=== PATIENT | female | born 1940 | race Caucasian/White ===

== ENCOUNTER 2016-03-16 08:19 | Emergency (ER) | payer MEDICARE, MEDICAID ==
[~2016-03-16] VITALS: Ht 152.4 cm; Wt 65.3 kg
[~2016-03-16 08:19] MED LIST: ALBU17AE3; ALPR-557 PO; ALPR.5T; ALPR.5T PO; ALPR0.2550 PO; AMOX500C2 PO; ASP325T; ASP81CT PO; ASP81TEC PO; BUDE10.2 INH; BUDE6HFA IH; CEFD250S3 PO; CEFD300C3 PO; CFR250T PO; CIPR500T78 PO; CLOP75TA28 PO; CLOT15CR6 TOP; CLPD75T; CLPD75T PO; CYCL1DRO OU; DCS100C PO; DIAZ2TAB2; DICY10CA12 PO; DICY10CA59 PO; DILT120C54 PO; DILT120T11 PO; DOCU-161 PO; DULO30CA; DULO60CA58 PO; DULO60CA6; DZPM2T; DZPM2T PO; EZET10TA5; EZET10TA5 PO; FAMO-119 PO; FEN12TD TD; FENT1PAT6 TP; FLT05NA16 NSEACH; FLUC100T PO; FLUC100T6 PC; FLUT16SP22 NSEACH; GABA-486 PO; GABA-488 PO; GABA600T2 PO; GBPN300C PO; HYDR-1231 PO; HYDR-34; HYDR-3714; HYDR-3714 PO; HYDR-3812 PO; HYDR-3816 PO; HYDR-757 PO; HYDR118S10 PO; HYDR1CAP2 PO; HYDR25CA5; HYDR28.32 EXT; HYDR2TAB30 PO; HYDR2TAB6 PO; HYOS0.1283 SL; LACT10SO63 PO; LEVO100T7 PO; LORA10TA2; LORA1TAB; LORA1TAB PO; LRT10T; LRZ1T; LVT.112T; LVT.112T PO; LVT.1T; LVT.1T PO; MECL-124 PO; MECL25TA56 PO; MELO-198 PO; METH4TAB PO; METO-272 PO; METO-354 PO; METO10TA3 PO; METR500T PO; MIRAPEX; MRTZ15T; Metoclopramide Hcl PO; NAPR-243 PO; NAPR-689 PO; NAPR250T34; NF-ADXR10C PO; NF-ESOM40C; NF-ROPIN4T PO; NITR-65 PO; NITR0.3T6 SL; NITR0.4T SL; NITR100C PO; NITR100C10 PO; NPR250TRX; ONDA8TAB13 PO; OXYB10TA8 PO; OXYC-12 PO; OXYC-190 PO; OXYC-197 PO; OXYC-465 PO; OXYC5TAB; OXYCODONE; PANT40TA PO; PANT40TA3 PO; PNT40TEC PO; PRAM0.252; PRAM0.75 PO; QUET50TA; QUET50TA PO; ROPI1TAB; ROPI2TAB3; ROPI3TAB PO; ROPI4TAB3 PO; RPN.25T; RT-COMBINH; SANCTURA; SCOP1PAT TD; SCR1T1 PO; SULF-222 PO; SULF1TAB38 PO; SULF1TAB7 PO; TEMA30CA PO; TMZP15C PO; TRAM-21 PO; TRAM-42 PO; TRAM50TA2 PO; TRIM100T PO; TRIM100T7 PO; TRM50T PO; ZLP10T; ZOLP5TAB6 PO; ZOLPIDEM 10 MG; [UNRECOGNIZED DRUG - CODE] PO; [UNRECOGNIZED DRUG - OTHER]; [UNRECOGNIZED DRUG - OTHER] PO
--- OUTSIDE RECORDS SUMMARY | 2016-03-16 08:26 | XMS REPORT | Continuity of Care Document ---
Author Author [facility] Organization [facility] Address Unknown Phone Unavailable Care Team Providers Care First Aid Officer Name Role Phone Roro Brewer III PCP [phone] Source Comments Some departments are not documenting in the electronic medical record. If you do not see the information that you expected, contact Release of Information in the Health Information Management department at [phone] for further assistance in locating additional records.[facility] Active Allergies and Adverse Reactions Allergen Noted Date Severity Reactions Comments Levofloxacin 04/27/2005 Medium Allergy recorded in SMS: LEVOFLOXACIN~Reactions: ARM SWELLING Current Medications Prescription Sig. Disp. Refills Start End Date Status Date clopidogrel (PLAVIX) 75 Take 75 mg by mouth Active mg Tab Daily. ezetimibe (ZETIA) 10 mg Take 10 mg by mouth Active tablet Daily. metoclopramide (REGLAN) Take 10 mg by mouth daily Active 10 mg tablet as needed. Aspirin 81 mg Tab Take 1 Tab by mouth 1 Tab 0 06/06/19 Active Daily. 10 nitroglycerin (NITROSTAT) Place 1 Tab under tongue 15 Tab 2 06/06/19 Active 0.4 mg tablet As Needed for Chest Pain. 10 give x 3 doses and then call physician pantoprazole DR,+, Take 1 Tab by mouth 30 Tab 3 06/06/19 Active (PROTONIX) 40 mg tablet Daily. Please take 10 Protonix while on Plavix metoprolol XL (TOPROL XL) Take 50 mg by mouth Active 50 mg tablet daily. LORazepam (ATIVAN) 1 mg Take 1 mg by mouth at Active tablet bedtime daily. dicyclomine (BENTYL) 10 Take 10 mg by mouth daily Active mg capsule as needed. temazepam (RESTORIL) 30 Take 30 mg by mouth at Active mg capsule bedtime as needed. duloxetine (CYMBALTA) Take 60 mg by mouth Active 60 mg capsule daily. levothyroxine (SYNTHROID) Take 100 mcg by mouth Active 100 mcg tablet daily. rOPINIRole (REQUIP) 4 mg Take 8 mg by mouth at Active tablet bedtime daily. gabapentin (NEURONTIN) Take 900 mg by mouth Active 300 mg capsule twice daily. lactulose 10 gram/15 mL Take 20 g by mouth daily Active oral solution as needed. cycloSPORINE (RESTASIS) Place 1 Drop into or Active 0.05 % ophthalmic around eye(s) daily as emulsion needed. fluticasone (FLONASE) 50 Apply 1 [place] to each Active mcg/actuation nasal spray nostril as directed daily as needed. Shake bottle gently before using. albuterol (PROAIR HFA) 90 Inhale 2 Puffs by mouth Active mcg/actuation inhaler into the lungs daily as needed for Wheezing or Shortness of Breath. Shake well before use. Active Problems Problem Noted Date Colostomy in place (HCC) 07/31/2014 Parastomal hernia 07/31/2014 Chest pain 06/03/2009 HLD (hyperlipidemia) 06/03/2009 PE (pulmonary embolism) 06/03/2009 Urinary incontinence 06/03/2009 Restless leg syndrome 06/03/2009 CAD (coronary artery disease) 06/03/2009 Overview: Hx of GA 4 yrs ago Depression 06/03/2009 Arthritis 06/03/2009 Back pain 06/03/2009 Hypothyroidism 06/03/2009 Bursitis of knee 06/03/2009 Overview: R RAJI (obstructive sleep apnea) Overview: noncompliant with CPAP Social History Tobacco Use Types Packs/Day Years Used Date Former Smoker 0.1 10 Quit: 10/13/2003 Smokeless Tobacco: Never Used Alcohol Use Drinks/Week oz/Week Comments No 0 Standard 0.0 drinks or equivalent Last Filed Vital Signs Vital Sign Reading Time Taken Blood Pressure 141/81 10/13/2015 9:37 AM CDT Pulse 64 10/13/2015 9:37 AM CDT Temperature 36.1 C (96.9 F) 10/13/2015 9:37 AM CDT Respiratory Rate 14 09/08/2015 2:37 PM CDT Height 1.524 m (5') 10/13/2015 9:37 AM CDT Weight 62.8 kg (138 lb 7.2 oz) 10/13/2015 9:37 AM CDT Body Mass Index 27.04 10/13/2015 9:37 AM CDT Oxygen Saturation 94% 10/13/2015 9:37 AM CDT Plan of Care Health Maintenance Due Date Last Done Comments Physical (Comprehensive) 1945 Exam Pertussis Vaccine 1949 Tetanus Vaccine 04/27/1955 Shingles Vaccine 1998 Osteoporosis Screening 04/27/2003 Prevnar/Pneumovax (#1) 04/27/2003 Influenza Vaccine 10/22/2015 Results from Last 3 Months Not on file
[2016-03-16] MEDS ORDERED: OMEP40CA36 PO (08:48)
[2016-03-16] MEDS ORDERED: CIPR500T4 (08:48)
[2016-03-16] MEDS ORDERED: SUCR1ORA5 PO (08:48)
[2016-03-16] MEDS ORDERED: OXYCODONE-ACETAMINOPHEN (08:48)
[2016-03-16] MEDS ORDERED: PANT40TA3 PO (08:48)
[2016-03-16] MEDS ORDERED: KETOROLAC 60 MG/2 ML VIAL IM ONE (09:00)
[2016-03-16] MEDS ORDERED: ORPHENADRINE 60 MG/2 ML (NORFLEX) AMP IM ONE (09:00)
[2016-03-16] MEDS ORDERED: diphenhydrAMINE 50 MG/ML INJ (BENADRYL) IM ONE (09:00)
--- NOTE | 2016-03-16 09:01 | ED Back Pain ---
General Chief Complaint: Back Problems Stated Complaint: BACK/LEG PAIN Nursing Triage Note: PT STATES CHRONIC BACK PAIN, HAS GOTTEN WORSE PAST 5 DAYS, STATES DR MUÑIZ CANNOT GET HER IN UNTIL MONDAY. 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 MUÑIZ UNTIL Monday03/21/16 PT DENIES INJURY SUNITA STATES THAT "SHE WAS DOING REALLY GOOD ON MONDAY AND WE WALKED ALOT, AND THEN WHEN WE GOT DONE SHE WAS HURTING AND SINCE THEN SHE HASN'T BEEN ABLE TO GET OUT OF BED" DUE TO PAIN PT HAS NOT TAKEN ANYTHING FOR PAIN TODAY, AND ONLY TOOK 1 DOSE OF PAIN MEDICATION YESTERDAY AT 1600 WHEN THERAPIST WAS AT HER HOUSE. RX FOR OXYCODONE FILLED 03/10/16 NO PARESTHESIAS OR MOTOR DEFICITS THIS IS SAME HER CHRONIC BACK PAIN, JUST WORSE THAN NORMAL SINCE MONDAY NO URINARY SYMPTOMS PT RECENTLY MOVED BACK HOME HAD BEEN IN PRISON IN [place] FOLLOWING [facility] [place] ( HAD COLOSTOMY BY DR. GUZMAN IN [place]), THEN WAS AT [facility] [place], THEN NOW IS BACK HOME, WITH HOME HEALTH AND CAREGIVERS, BUT NOT 24 HOUR CARE. IS TO HAVE COLOSTOMY TAKE DOWN BY DR. GUZMAN 03/29/16 Other Comments PCP: DR. FOFANA Allergies and Home Medications Allergies Coded Allergies: No Known Drug Allergies (Unverified , 06/10/15) Home Medications #60 (Reported) Aspirin 81 Mg Tabec 81 MG PO DAILY (Reported) Budesonide/Formoterol Fumarate 10.2 Gm Hfa.aer.ad 2 PUFF INH BID PRN PRN SHORTNESS OF BREATH (Reported) Ciprofloxacin HCl 500 Mg Tablet #14 (Reported) Clopidogrel Bisulfate 75 Mg Tablet 75 MG PO DAILY (Reported) Cyclosporine 1 Each [place] 1 DROP OU BID (Reported) Duloxetine HCl 60 Mg Capsule.dr 60 MG PO DAILY (Reported) Ezetimibe 10 Mg Tablet 10 MG PO DAILY (Reported) Fluconazole 100 Mg Tablet 100 MG PC DAILY (Reported) Gabapentin 300 Mg Capsule 300 MG PO BID (Reported) Lactulose 10 Gm/15 Ml Solution 30 ML PO HS PRN PRN CONSTIPATION (Reported) Levothyroxine Sodium 100 Mcg Tablet 100 MCG PO DAILY (Reported) Lorazepam 1 Mg Tablet #15 1 MG PO Q12H PRN PRN ANXIETY Prescribed by: YSABEL ABREU on 07/31/15928 Metoprolol Succinate 50 Mg Tab.er.24h 50 MG PO DAILY (Reported) Nitroglycerin 0.4 Mg Tab.subl 0.4 MG PO UD PRN PRN CHEST PAIN (Reported) Omeprazole 40 Mg Capsule.dr #60 (Reported) Pantoprazole Sodium 40 Mg Tablet.dr #30 (Reported) Ropinirole HCl 4 Mg Tablet 8 MG PO HS (Reported) Sucralfate 1 Gm/10 Ml Oral.susp #600 (Reported) Temazepam 30 Mg Capsule #15 30 MG PO HS Prescribed by: YSABEL ABREU on 07/31/15928 Constitutional: no symptoms reported Respiratory: no symptoms reported Cardiovascular: no symptoms reported Gastrointestinal: see HPI Genitourinary: no symptoms reported (BUT WAS RECENTLY TREATED FOR UTI) Musculoskeletal: see HPI Skin: no symptoms reported Psychiatric/Neurological: Denies Numbness, Denies Paresthesia, Denies Weakness Past Wztpsuj-Tgkwjj-Ailxsa Hx Patient Social History Alcohol Use: Denies Use Recreational Drug Use: No Smoking Status: Former Smoker Former Smoker/When Quit: Sep 27, 1997 Recent Foreign Travel: No Contact w/Someone Who Travel: No Recent Infectious Disease Expo: No Recent Hopitalizations: No Physical Abuse Screen: No Sexual Abuse: No Immunizations Up To Date Tetanus Booster (TDap): Unknown Date of Pneumonia Vaccine: Apr 22, 2012 Date of Influenza Vaccine: Dec 21, 2014 Seasonal Allergies Seasonal Allergies: No Surgeries HX Surgeries: Yes (COLOSTOMY, KYPHOPLASTY; CARDIAC CATH WITH STENTS X 2; EGD/ COLONOSCOPIES ) Surgeries: Abdominal, Appendectomy, Bowel Surgery, Cardiac, Coronary Stent, Hysterectomy, Orthopedic, Tonsillectomy Respiratory Hx Respiratory Disorders: Yes Respiratory Disorders: Sleep Apnea, COPD Cardiovascular Hx Cardiac Disorders: Yes (STENTS X2) Cardiac Disorders: Coronary Artery Disease, Deep Vein Thrombosis, Hypertension Neurological Hx Neurological Disorders: Yes Neurological Disorders: Vertigo 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 System Hx 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 Disorders: No ARTIST SUSPECT History: Hysterectomy Genitourinary Hx Genitourinary Disorders: Yes (INCONTINENCE) Genitourinary Disorders: UTI-Chronic Gastrointestinal Hx Gastrointestinal Disorders: Yes (COLOSTOMY; PARASTOMAL HERNIA) Gastrointestinal Disorders: Abdominal Hernia, Gastroesophageal Reflux, Diverticulosis, Esophagitis Musculoskeletal Hx Musculoskeletal Disorders: Yes (compression fracture status post kyphoplasty ) Musculoskeletal Disorders: Osteoporosis, Arthritis, Chronic Back Pain, Fractures Endocrine Hx Endocrine Disorders: Yes Endocrine Disorders: Hypothyroidsim HEENT HX ENT Disorders: Yes (FULL SET OF DENTURES) HEENT Disorders: Cataract Loss of Vision: Denies Hearing Impairment: Denies Cancer Hx Cancer: No Psychosocial Hx Psychiatric Problems: Yes Behavioral Health Disorders: Anxiety, Depression Integumentary HX Skin/Integumentary Disorder: No Blood Transfusions Hx Blood Disorders: Yes (DVT) Family Medical History Significant Family History: No Pertinent Family Hx Family Medial History: Family history: Hypertension G8 BROTHER Myocardial infarction 19 MOTHER G8 BROTHER Physical Exam Vital Signs Vital Sign - Last 12Hours 03/16/16 08:30 Temp 97.2 Pulse 62 Resp 20 B/P 152/82 Pulse Ox 94 Capillary Refill : Less Than 3 Seconds General Appearance: No Apparent Distress WD/WN Other (SMILING, TALKATIVE BUT SPEECH SLIGHTLY THICK TONGUED) Neck: Full Range of Motion Normal Inspection Non Tender Supple Cardiovascular: Regular Rate, Rhythm Normal Peripheral Pulses Respiratory: Normal Breath Sounds No Accessory Muscle Use No Respiratory Distress Gastrointestinal: Normal Bowel Sounds No Organomegaly No Pulsatile Mass Non Tender Soft Back: Other (BACK NON-TENDER, BUT C/O MUCH PAIN WITH ANY MOVEMENT. ) Extremity: Normal Inspection Normal Range of Motion Non Tender No Calf Tenderness No Pedal Edema Neurologic/Psychiatric: Alert Oriented x3 No Motor/Sensory Deficits Normal Mood/Affect recovery manager II-XII Norm as Tested Other (DTR'S INTACT) Skin: Normal Color Warm/DryNo Rash Progress/Results/Core Measures Results/Orders My Orders Orders-BETTY MAZARIEGOS DO Ct Lumbar Spine Wo (03/16/16 08:51) Ketorolac Injection (Toradol Injection) (03/16/16 09:00) Orphenadrine Injection (Norflex Injectio (03/16/16 09:00) Diphenhydramine Injection (Benadryl Inje (03/16/16 09:00) Medications Given in ED Current Medications Medications Dose Ordered Sig/Perez Route Start Time Stop Time Status Last Admin Dose Admin Diphenhydramine HCl 25 mg ONCE ONCE IM 03/16/16 09:00 03/16/16 09:01 DC 03/16/16 09:03 25 MG Ketorolac Tromethamine 60 mg ONCE ONCE IM 03/16/16 09:00 03/16/16 09:01 DC 03/16/16 09:07 60 MG Orphenadrine Citrate 60 mg ONCE ONCE IM 03/16/16 09:00 03/16/16 09:01 DC 03/16/16 09:04 60 MG Vital Signs/I&O Vital Sign - Last 12Hours 03/16/16 03/16/16 08:30 09:56 Temp 97.2 97.2 Pulse 62 62 Resp 20 20 B/P 152/82 Pulse Ox 94 94 Blood Pressure Mean: 105 Progress Note : Progress Note PAIN EASED AT DISMISSAL Diagnostic Imaging Comments CT LUMBAR SPINE--MULTIPLE OLD COMPRESSION FRACTURES AND KYPHOPLASTIES, NO ACUTE PROCESS PER RADIOLOGIST REPORT Reviewed: Reviewed by Me Departure Impression Impression: Primary Impression: Acute exacerbation of chronic low back pain Disposition: 01 HOME, SELF-CARE Condition: Stable Departure-Patient Inst. Referrals: TORIBIO FOFANA DO (PCP/Family) Primary Care Physician Patient Instructions: MANAGING YOUR CHRONIC PAIN, Low Back Pain (DC) Add. Discharge Instructions: TAKE YOUR MEDICATIONS PRESCRIBED FOLLOW UP WITH DR. MUÑIZ AND DR. FOFANA FOR FURTHER CARE All discharge instructions reviewed with patient and/or family. Voiced understanding. BETTY MAZARIEGOS DO Mar 16, 2016 09:01
--- NOTE | 2016-03-16 09:34 | Diagnostic Imaging Report ---
PROCEDURE: CT lumbar spine without contrast. TECHNIQUE: Multiple contiguous axial images were obtained through the lumbar spine without the use of intravenous contrast. Sagittal and coronal reformations were then performed. INDICATION: Low back pain EXAMINATION: CT lumbar spine without contrast There is a grade 1 spondylolisthesis at L3-4. There are postop changes from kyphoplasties of T10, T12 and L5. There are old compression fractures of T11, L1 and L4. There are no acute fracture seen. There are degenerative changes of the facets. There scoliosis of the lumbar spine convex to the right. There is vacuum disc phenomena at T12-L1, L2-3 and L4-5. IMPRESSION: Scoliosis with degenerative changes and old compression fractures. There are no findings to indicate an acute compression fracture. MRI would be more sensitive in that regard. Dictated by: Dictated on workstation # [id number]
[2016-03-16 09:56] VITALS: BP 152/82
[2016-04-06] MEDS ORDERED: ROPI1TAB2 PO (10:17)
== END 2016-03-16 10:01 | disposition home or self-care (01) ==
LOC: EDBD → EDUNIT# 08:19 → ER 08:22
DX: M47.26 Other spondylosis with radiculopathy, lumbar region (principal); M41.26 Other idiopathic scoliosis, lumbar region; G89.29 Other chronic pain; I10 Essential (primary) hypertension; I25.10 Atherosclerotic heart disease of native coronary artery without angina pectoris; J44.9 Chronic obstructive pulmonary disease, unspecified; Z79.02 Long term (current) use of antithrombotics/antiplatelets; Z79.899 Other long term (current) drug therapy; Z79.82 Long term (current) use of aspirin; Z95.5 Presence of coronary angioplasty implant and graft; Z93.3 Colostomy status
CPT/HCPCS: 72131; 96372

== ENCOUNTER 2016-03-25 09:02 | Outpatient (CLI) | payer MEDICARE, MEDICAID ==
[~2016-03-25] VITALS: Ht 152.4 cm; Wt 65.3 kg
[~2016-03-25 09:02] MED LIST changes: +CIPR500T4; +OMEP40CA36 PO; +OXYCODONE-ACETAMINOPHEN; +SUCR1ORA5 PO
[2016-03-25] MEDS ORDERED: TRIAMCINOLONE ACET (KENALOG-40) 40 MG/ML 1 ML VIAL ONE (09:23)
[2016-03-25] MEDS ORDERED: BUPIVACAINE 0.25% 30 ML (SENSORCAINE) VIAL ONE (09:23)
[2016-03-25 09:30] VITALS: BP 174/103
[2016-03-25 10:14] VITALS: BP 145/103
--- NOTE | 2016-03-25 12:04 | Pain Medicine-Procedure ---
Procedure Pre-Op/Post-Op Diagnosis Diagnosis: disc disorder with radiculopathy, lumbar Indications for Operation Low back pain Attending Surgeon Reynaldo Procedure Date of Service: Mar 25, 2016 Procedure: Lumbar Epidural Steroid Injection at the L5-S1 level under Fluoroscopic Guidance Procedure: Patient was identified in the holding area. After risks, benefits, and alternatives were discussed with the patient, informed consent was obtained. Patient was brought to the fluoroscopy suite and placed prone on the procedure room table. A time out was performed. Vital signs were monitored throughout the procedure. The patients low back was prepped and draped in the usual sterile fashion. The patients skin was anesthetized using 2% Lidocaine. A Tuohy needle was inserted and advanced to the L5-S1 epidural space under fluoroscopic guidance using the loss of resistance technique and intermittent projection of fluoroscopy. There was no paresthesia with needle placement. The needle position was confirmed in both the AP and lateral view. After negative aspiration 2ml of contrast was injected under live fluoroscopy which showed good spread of the contrast in the epidural space at the appropriate level, there was no intravascular or subarachnoid spread. Again, after negative aspiration for heme or CSF, 2 ml of 0.25% Bupivicaine, 2ml of preservative free normal saline, and 80mg of Kenalog was injected. The needle was removed and a sterile bandage was placed and the patient was transferred to the recovery area in stable condition. After a brief period of observation, patient was discharged to home with no new neurological deficits and no apparent complications. Complications None MORAIMA MUÑIZ MD Mar 25, 2016 12:03 pm
[2016-03-25] MEDS ORDERED: CEFU250T80 PO (16:06)
[2016-04-06] MEDS ORDERED: ROPI1TAB2 PO (10:17)
== END 2016-03-25 10:16 | disposition home or self-care (01) ==
LOC: EDBD → CARD 09:02
PROVIDERS: ATTEND Pain Medicine Pain Medicine
DX: M51.16 Intervertebral disc disorders with radiculopathy, lumbar region (principal); M53.3 Sacrococcygeal disorders, not elsewhere classified; Z79.899 Other long term (current) drug therapy
CPT/HCPCS: 62323

== ENCOUNTER 2016-03-25 13:59 | Emergency (ER) | payer MEDICARE, MEDICAID ==
[~2016-03-25] VITALS: Ht 157.5 cm; Wt 68.0 kg
--- OUTSIDE RECORDS SUMMARY | 2016-03-25 14:08 | XMS REPORT | Continuity of Care Document ---
Author Author [facility] Organization [facility] Address Unknown Phone Unavailable Care Team Providers Care Tax Economist Name Role Phone TORIBIO FOFANA DO PCP Insurance Providers Payer Name Policy Number Subscriber Name Relationship [employer] [id number] [place] [address] Self / Same As Patient [facility] [id number] [place] [address] Self / Same As Patient Advance Directives Directive Response Recorded Date/Time Advance Directives No 07/28/15 3:06pm Health Care Power of Planning Feeder No 07/28/15 3:06pm Organ Donor No 07/28/15 3:06pm Resuscitation Status Full Code 07/28/15 3:06pm Chief Complaint and Reason for Visit Chief Complaint Neurological Problems Reason for Visit [id number] Problems Active Problems Medical Problem Onset Date Status Abdominal pain Unknown Acute Abnormal thyroid function test Unknown Acute Acute exacerbation of chronic low back pain Unknown Acute Acute exacerbation of chronic low back pain Unknown Acute Altered mental status Unknown Acute Atelectasis Unknown Acute Atypical chest pain Unknown Acute Atypical chest pain Unknown Acute Benzodiazepine overdose Unknown Acute Chest pain Unknown Resolved Chest pain Unknown Acute Chest wall pain Unknown Acute Closed T11 fracture Unknown Acute Closed compression fracture of thoracic vertebra Unknown Acute Compression fracture Unknown Acute Compression fracture of L1 lumbar vertebra Unknown Acute Compression fracture of L4 lumbar vertebra Unknown Acute Diverticulitis of intestine Unknown Acute Dysphagia Unknown Acute Frequent falls Unknown Acute Generalized weakness Unknown Acute Hyponatremia Unknown Acute Intractable low back pain Unknown Acute Leukocytosis Unknown Acute Lumbar transverse process fracture Unknown Acute 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 Acute Sinusitis Unknown Acute Syncope Unknown Acute Transient cerebral ischemia Unknown Acute UTI (urinary tract infection) Unknown Acute UTI (urinary tract infection) Unknown Acute Urinary tract infection Unknown Acute Urinary tract infection Unknown Acute Urinary tract infectious disease Unknown Acute Volume depletion Unknown Acute acute and chronic hyponatremia Unknown Acute Medications Current Home Medications Medication Dose Units Route Directions Days/Qty Instructions Start Date Aspirin 81 Mg 81 Mg Oral Daily 09/10/12 Ezetimibe 10 Mg 10 Mg Oral Daily 12/05/14 Duloxetine Hcl 60 Mg 60 Mg Oral Bedtime 12/05/14 Ropinirole Hcl 4 Mg 8 Mg Oral Bedtime TAKES 2 (4 MG) TABLETS / LAST FILLED 05/17/15 #60 12/05/14 Lactulose 10 Gm/15 Ml 30 Ml Oral Bedtime as needed for Constipation 12/05/14 Metoprolol Succinate 50 Mg 50 Mg Oral Daily LAST FILLED 05/15/15 #30 12/05/14 Levothyroxine Sodium 100 Mcg 100 Mcg Oral Daily 12/05/14 Nitroglycerin 0.4 Mg 0.4 Mg Oral As Directed as needed for Chest Pain 12/05/14 Clopidogrel Bisulfate 75 Mg 75 Mg Oral Daily 12/05/14 Budesonide/Formoterol Fumarate 10.2 Gm 2 Puff Inhalation Twice A Day as needed for Shortness Of Breath LAST FILLED 03/10/15 #1 INHALER 12/17/14 Cyclosporine 1 Each 1 Drop Each Eye Twice A Day 12/17/14 Gabapentin 300 Mg 900 Mg Oral Twice A Day TAKES 3 (300 MG) CAPSULES Fentanyl 1 Each 12 Mcg Topical Every 72 Hours APPLY TO HAIR FREE AREA ABOVE WAIST 06/23/15 Fluconazole 100 Mg 100 Mg Percutaneous Daily 06/23/15 Hyoscyamine Sulfate 0.125 Mg 0.125 Mg Sublingual Before Meals as needed for Spasms 06/23/15 Temazepam 30 Mg 30 Mg Oral Bedtime 06/23/15 Oxycodone Hcl/Acetaminophen 1 Each 1 Tab Oral Every 4-6 Hours as needed for Pain 06/23/15 Lorazepam 1 Mg 1 Mg Oral Every 12 Hours as needed for Anxiety Ondansetron 8 Mg 8 Mg Oral Every 6 Hours as needed for Nausea/Vomiting 06/23/15 Nitrofurantoin Monohyd/M-Cryst 100 Mg 1 Tab Oral Twice A Day 20 Nitrofurantoin Macrocrystal 100 Mg 100 Mg Oral Twice A Day 13 07/28/15 Past Home Medications Medication Directions Ordered Status Duloxetine Hcl 30 Mg Capsule.dr, 07/10/06 Discontinued Ezetimibe 10 Mg Tablet, 07/10/06 Discontinued Clopidogrel Bisulfate 75 Mg Tablet, 07/10/06 Discontinued Loratadine 10 Mg Box, 07/10/06 Discontinued Naproxen 250 Mg Tab, 07/10/06 Discontinued [Sanctura] , 07/10/06 Discontinued Esomeprazole Magnesium 40 Mg Capsule.dr, 07/10/06 Discontinued Ropinirole Hcl 0.25 Mg Tab, 07/10/06 Discontinued Diazepam 2 Mg Tablet, 07/10/06 Discontinued [Sanctura] 20 Mg , 07/10/06 Discontinued Zolpidem Tartrate 10 Mg Tablet, 07/10/06 Discontinued Levothyroxine Sodium (Levothroid) 112 Mcg Tablet, 02/05/07 Discontinued Hydroxyzine Pamoate 25 Mg Capsule, 02/05/07 Discontinued Lorazepam 1 Mg Tablet, 02/05/07 Discontinued Alprazolam 0.5 Mg Tablet, 02/05/07 Discontinued [Mirapex] , 05/06/07 Discontinued Mirtazapine 15 Mg Tab, 05/06/07 Discontinued [Oxycodone] , 05/06/07 Discontinued Duloxetine Hcl 30 Mg Capsule.dr, 10/28/07 Discontinued Naproxen 250 Mg Tablet, 10/28/07 Discontinued Ezetimibe 10 Mg Tablet, 10 Mg Oral Daily 10/28/07 Discontinued Clopidogrel Bisulfate 75 Mg Tablet, 75 Mg Oral Daily 10/28/07 Discontinued Levothyroxine Sodium 100 Mcg Tablet, 10/28/07 Discontinued Esomeprazole Magnesium 40 Mg Capsule.dr, 10/28/07 Discontinued Ropinirole Hcl 0.25 Mg Tab, 10/28/07 Discontinued Diazepam 2 Mg Tablet, 10/28/07 Discontinued Zolpidem Tartrate 10 Mg Tablet, 10/28/07 Discontinued Loratadine 10 Mg Tablet, 06/08/08 Discontinued Acetaminophen/Hydrocodone Bitart 1 Each Tablet, 10/02/08 Discontinued Diazepam (Valium) 2 Mg Tablet, 10/02/08 Discontinued Quetiapine Fumarate 50 Mg Tablet, 10/02/08 Discontinued Aspirin 325 Mg Tab, 10/02/08 Discontinued Oxycodone Hcl/Acetaminophen 1 Each Tablet, 1 Each Oral Every 6 Hours Discontinued Docusate Sodium 100 Mg Capsule, 100 Mg Oral Twice A Day 10/02/08 Discontinued Ropinirole Hcl 1 Mg Tablet, 12/01/08 Discontinued Duloxetine Hcl 60 Mg Capsule.dr, 60 Mg 12/01/08 Discontinued Albuterol 17 Gm Inh, 12/01/08 Discontinued Oxycodone Hcl 5 Mg Tablet, 12/01/08 Discontinued Alprazolam 0.5 Mg Tablet, 12/01/08 Discontinued Lorazepam 1 Mg Tab, 12/01/08 Discontinued Ipratropium/Albuterol Sulfate 14.7 Gm Aer.w.adap, 12/01/08 Discontinued [Xolpidem 10MG] , 12/01/08 Discontinued [Lopinerole 1MG] , 12/01/08 Discontinued Pramipexole Di-Hcl 0.25 Mg Tablet, 12/01/08 Discontinued Levothyroxine Sodium 112 Mcg Tab, 112 Mcg Oral Daily 12/01/08 Discontinued Acetaminophen/Hydrocodone Bitart 1 Ea Tablet, 12/01/08 Discontinued Quetiapine Fumarate 50 Mg Tablet, 50 Mg Oral Twice A Day 12/01/08 Discontinued Ropinirole Hcl 2 Mg Tablet, 03/17/09 Discontinued Zolpidem Tartrate 10 Mg Tab, 10 Mg 03/17/09 Discontinued Alprazolam 0.5 Mg Tablet, 1 Tab Oral Four Times Daily 09/25/09 Discontinued Docusate Sodium 100 Mg Capsule, 100 Mg Oral Bedtime 10/30/09 Discontinued Hydrocodone Bit/Acetaminophen 1 Each Capsule, 1-2 Tab Oral Every 6 Hours as needed for Pain 07/25/10 Discontinued Pramipexole Di-Hcl 0.75 Mg Tablet, 0.75 Mg Oral Q Hs 07/25/10 Discontinued Naproxen 500 Mg Tablet, 1 Each Oral Twice A Day 07/25/10 Discontinued [Laxazipan] , 1 Mg Oral Every 8HRS 07/25/10 Discontinued Lorazepam (Ativan) 1 Mg Tablet, 1 Mg Oral Every 8HRS 07/25/10 Discontinued Diltiazem Hcl 120 Mg Cap.sr.24h, 1 Cap Oral Daily 07/25/10 Discontinued Alprazolam 0.25 Mg Tab.rapdis, 1 Each Oral Three Times A Day 07/29/10 Discontinued Docusate Sodium 100 Mg Capsule, 100 Mg Oral Bedtime 07/29/10 Discontinued Cefuroxime Axetil 250 Mg Tablet, 1 Tab Oral Twice A Day 07/29/10 Discontinued Metronidazole 500 Mg Tab, 1 Each Oral Twice A Day 07/29/10 Discontinued Betamethasone/Clotrimazole (Lotrisone Cream) 15 Gm Cream.gm., 0 Topically Daily 07/29/10 Discontinued Ropinirole Hcl 3 Mg Tablet, 2 Tab Oral Bedtime 07/29/10 Discontinued Tramadol Hcl 50 Mg Tablet, 50 Mg Oral Four Times Daily 08/06/10 Discontinued Meclizine Hcl 25 Mg Tablet, 1 Each Oral Four Times Daily 10/28/10 Discontinued Sulfamethoxazole/Trimethoprim 1 Each Tablet, 1 Each Oral Twice A Day Discontinued Meloxicam (Mobic) 7.5 Mg Tablet, 1 Each Oral Daily 08/29/11 Discontinued Diazepam 2 Mg Tab, 1 Each Oral Daily 08/29/11 Discontinued Pantoprazole Sodium 40 Mg Tablet.dr, 40 Mg Oral Daily 08/29/11 Discontinued Diltiazem Hcl 120 Mg Tablet, 120 Mg Oral Daily 08/29/11 Discontinued Amphetamine Aspartate/Sulfate 10 Mg Cap, 10 Mg Oral Daily 08/29/11 Discontinued Meclizine Hcl 25 Mg Tab, 25 Mg Oral Three Times A Day as needed 05/02/12 Discontinued Nitroglycerin 0.3 Mg Tab.subl, 0.4 Mg Sublingual Q 5 Min X 3 Doses as needed for Chest Pain 05/02/12 Discontinued Gabapentin 300 Mg Cap, 300 Mg Oral Twice A Day 05/02/12 Discontinued Metoclopramide Hcl 10 Mg Tab, 10 Mg Oral Qid Prn 05/02/12 Discontinued Dicyclomine Hcl 10 Mg Capsule, 10 Mg Oral Three Times A Day as needed for Abdominal Pain 05/02/12 Discontinued Cefdinir (Omnicef) 300 Mg Capsule, 1 Each Oral Twice A Day 05/03/12 Discontinued Zolpidem Tartrate 5 Mg Tablet, 5 Mg Oral Bedtime 08/16/12 Discontinued Ropinirole Hcl 4 Mg Tablet, 8 Mg Oral Bedtime 08/16/12 Discontinued Oxybutynin Chloride 10 Mg Tab.er.24, 10 Mg Oral Daily 08/16/12 Discontinued Aspirin 81 Mg Chew, 81 Mg Oral Daily@0900 08/17/12 Discontinued Alprazolam 0.5 Mg Tab, 0.5 Mg Oral Daily as needed for Anxiety 09/10/12 Discontinued Cyclosporine 32 Ea [place], 2 Drop Each Eye Bedtime 09/10/12 Discontinued Budesonide/Formoterol Fumarate 10.2 Gm Hfa.aer.ad, 2 Puff Inhalation Twice A Day as needed for Shortness Of Breath 09/10/12 Discontinued Fluticasone Propionate 16 Gm Naspr, 2 Sprays Each Nostril Daily as needed for Allergies 09/10/12 Discontinued Naproxen 500 Mg Tablet, 500 Mg Oral Twice A Day 09/10/12 Discontinued Lorazepam 1 Mg Tab, 2 Mg Oral Bedtime 09/10/12 Discontinued Temazepam 15 Mg Capsule, 30 Mg Oral Bedtime as needed 09/11/12 Discontinued Sucralfate 1 Gm Tab, 1 Gm Oral Before Meals And At Bedtime 09/11/12 Discontinued Trimethoprim/Sulfamethoxazole 1 Ea Tablet, 1 Ea Oral Twice A Day 09/11/12 Discontinued Nitrofurantoin Macrocrystals 100 Mg Capsule, 1 Each Oral Twice A Day Discontinued Pantoprazole Sodium 40 Mg Tablet.dr, 1 Tab Oral Twice A Day 01/07/13 Discontinued Cefdinir (Omnicef) 250 Mg/5 Ml Susp.recon, 1 Tsp Oral Twice A Day 04/23/13 Discontinued Methylprednisolone 4 Mg/Dose-Pack Tab.ds.pk, 0 Oral As Directed 05/05/13 Discontinued Amoxicillin 500 Mg Capsule, 1 Each Oral Four Times Daily 05/05/13 Discontinued Fluticasone Propionate 16 Gm [place], 2 Sprays Each Nostril Daily 05/05/13 Discontinued Meclizine Hcl 25 Mg Tab, 1-2 Tab Oral Q 4-6 Hours as needed for Dizziness 11/03 Discontinued Scopolamine Hcl 1 Patch .72 H Patch.td72, 1 Ea Transderm Every 3 Days Discontinued Temazepam 30 Mg Capsule, 30 Mg Oral Bedtime 08/05/13 Discontinued Tramadol Hcl 50 Mg Tab, 50 Mg Oral Twice A Day as needed for Pain 08/09/13 Discontinued Tramadol Hcl 50 Mg Tablet, 50 Mg Oral Twice A Day as needed for Pain Discontinued Acetaminophen/Hydrocodone Bitart 1 Each Tablet, 1 Tab Oral Every 4HRS as needed for Pain 09/17/13 Discontinued Trimethoprim 100 Mg Tablet, 100 Mg Oral Daily 09/17/13 Discontinued Naproxen 500 Mg Tablet, 500 Mg Oral Daily as needed for Pain 09/17/13 Discontinued Zolpidem Tartrate 5 Mg Tablet, 5 Mg Oral Bedtime as needed for Sleep Discontinued Metoprolol Succinate 50 Mg Tab.sr.24h, 50 Mg Oral Daily 09/18/13 Discontinued Trimethoprim/Sulfamethoxazole 1 Tab Tablet, 1 Tab Oral Twice A Day 09/29/13 Discontinued Cyanocobalamin 2,000 Mcg Tablet.sa, 2000 Mcg Oral Daily 10/31/13 Discontinued Ropinirole Hcl 4 Mg Tablet, 4 Mg Oral Bedtime 11/02/13 Discontinued Lorazepam 1 Mg Tab, 0.5 Mg Oral Bedtime 11/02/13 Discontinued Levothyroxine Sodium (Levothroid) 100 Mcg Tab, 100 Mcg Oral Daily@0630 Discontinued Trimethoprim/Sulfamethoxazole 1 Ea Tablet, 1 Ea Oral Twice A Day With Meals 11/02/13 Discontinued Ciprofloxacin Hcl 500 Mg Tablet, 500 Mg Oral Twice A Day 11/25/13 Discontinued Metronidazole 500 Mg Tab, 1 Each Oral Three Times A Day 11/25/13 Discontinued Hydrocodone Bit/Acetaminophen 1 Each Tablet, 1 Ea Oral Every 6 Hours as needed for Mild Pain 11/25/13 Discontinued Lorazepam 1 Mg Tab, 1 Mg Oral Bedtime 01/23/14 Discontinued Ropinirole Hcl 4 Mg Tablet, 8 Mg Oral Bedtime 01/24/14 Discontinued Duloxetine Hcl 60 Mg Capsule.dr, 60 Mg Oral Daily 01/24/14 Discontinued Lorazepam 1 Mg Tab, 1 Mg Oral Bedtime 01/24/14 Discontinued Gabapentin 100 Mg Capsule, 100 Mg Oral Bedtime 01/24/14 Discontinued Trimethoprim 100 Mg Tablet, 100 Mg Oral Daily 01/24/14 Discontinued Acetaminophen/Hydrocodone Bitart 1 Each Tablet, 1 Tab Oral Twice A Day as needed for Pain 01/24/14 Discontinued Docusate Sodium 100 Mg Cap, 100 Mg Oral Twice A Day 02/11/14 Discontinued [Metoclopramide Hcl] 10 Mg Tab, 10 Mg Oral Before Meals And At Bedtime Discontinued Hydrocortisone 30 Gm Cr, 30 Gm External Twice A Day for Itching 02/11/14 Discontinued Hydrocodone Bit/Acetaminophen 1 Tab Tablet, 1-2 Tab Oral Every 6 Hours as needed for Pain 06/03/14 Discontinued Hydrocodone/Acetaminophen 1 Each Tablet, 1 Each Oral Every 4HRS as needed for Pain 10/19/14 Discontinued Gabapentin 600 Mg Tablet, 600 Mg Oral Three Times A Day 12/05/14 Discontinued Hydrocodone/Acetaminophen 1 Each Tablet, 1 Tab Oral Every 4HRS as needed for Pain 12/05/14 Discontinued Oxycodone Hcl/Acetaminophen 1 Each Tablet, 1 Tab Oral Every 4HRS as needed for Pain 12/05/14 Discontinued Metoclopramide Hcl 10 Mg Tablet, 10 Mg Oral Daily as needed for Cramps Discontinued Trimethoprim 100 Mg Tablet, 100 Mg Oral Daily 12/05/14 Discontinued Temazepam 30 Mg Capsule, 30 Mg Oral Bedtime 12/05/14 Discontinued Lorazepam 1 Mg Tablet, 1 Mg Oral @ 1200 And Bedtime 12/05/14 Discontinued Dicyclomine Hcl 10 Mg Capsule, 10 Mg Oral Three Times A Day as needed for Cramps 12/05/14 Discontinued Pantoprazole Sodium 40 Mg Tablet.dr, 40 Mg Oral Twice A Day 12/05/14 Discontinued Oxycodone Hcl/Acetaminophen 1 Each Tablet, 1 Tab Oral Every 4HRS as needed for Pain 12/07/14 Discontinued Cefdinir (Omnicef) 300 Mg Capsule, 300 Mg Oral Twice A Day 12/07/14 Discontinued Hydromorphone Hcl 2 Mg Tablet, 2 Mg Oral Every 4-6 Hours as needed for Pain 12/17/14 Discontinued Lorazepam 1 Mg Tablet, 2 Mg Oral Bedtime 12/17/14 Discontinued Trimethoprim 100 Mg Tablet, 100 Mg Oral Daily 12/17/14 Discontinued Dicyclomine Hcl 10 Mg Capsule, 10 Mg Oral Three Times A Day as needed for Cramps 12/17/14 Discontinued Hydromorphone Hcl 2 Mg Tablet, 2 Mg Oral Every 4HRS as needed for Breakthrough Pain 12/28/14 Discontinued Fentanyl 12 Mcg Patch, 12 Mcg Transderm Every 72 Hours 12/28/14 Discontinued Nitrofurantoin Monohyd/M-Cryst 100 Mg Capsule, 1 Tab Oral Twice A Day Discontinued Oxycodone Hcl/Acetaminophen 1 Each Tablet, 1 Each Oral Every 6 Hours Discontinued Oxycodone Hcl/Acetaminophen 1 Each Tablet, 1 Each Oral Four Times Daily 04/17 Discontinued Tramadol Hcl 50 Mg Tablet, 50 Mg Oral Every 6 Hours as needed for Pain Discontinued Oxycodone Hcl/Acetaminophen 1 Each Tablet, 1 Tab Oral Every 4 To 6 Hours as needed for Pain 06/10/15 Discontinued Cefdinir (Omnicef) 300 Mg Capsule, 300 Mg Oral Twice A Day 06/10/15 Discontinued Hyoscyamine Sulfate 0.125 Mg Tab.subl, 0.125 Mg Sublingual Before Meals as needed for Spasms 06/10/15 Discontinued Famotidine 20 Mg Tablet, 20 Mg Oral Twice A Day 06/10/15 Discontinued Ondansetron 8 Mg Tab.rapdis, 8 Mg Oral Every 6 Hours as needed for Nausea Discontinued Temazepam 30 Mg Capsule, 30 Mg Oral Bedtime 06/12/15 Discontinued Lorazepam 1 Mg Tablet, 1 Mg Oral @ 1200 And Bedtime 06/12/15 Discontinued Oxycodone Hcl/Acetaminophen 1 Each Tablet, 1 Tab Oral Every 4 To 6 Hours as needed for Pain 06/12/15 Discontinued Fentanyl 12 Mcg Patch, 12 Mcg Transderm Every 72 Hours 06/12/15 Discontinued Nitrofurantoin Monohyd/M-Cryst 100 Mg Capsule, 100 Mg Oral Twice A Day Discontinued Fluconazole 100 Mg Tablet, 100 Mg Oral Daily 06/12/15 Discontinued Social History Social History Problem Response Recorded Date/Time Alcohol Use Denies Use 07/28/2015 3:06pm Recreational Drug Use No 07/28/2015 3:06pm Recent Foreign Travel No 11/25/2013 2:05pm Recent Infectious Disease Exposure No 11/25/2013 2:05pm Smoking Status Former Smoker 07/28/2015 3:06pm Do you dip or chew tobacco? No 07/28/2015 3:06pm Query Response Start Date Stop Date Smoking Status Former Smoker 09/27/1997 Hospital Discharge Instructions No hospital discharge instructions. Plan of Care Discharge Date 07/28/15 5:13pm Disposition 01 HOME, SELF-CARE Condition at Discharge Improved Instructions/Education Provided Urinary Tract Infection in Women (ED) Prescriptions See Medication Section Referrals TORIBIO FOFANA DO - Primary Care Physician Additional Instructions/Education All discharge instructions reviewed with patient and/or family. Voiced understanding. Take medications as directed. Follow-up with your DrJessica in one to 2 days for recheck. Return for worse pain, fever, vomiting, weakness, breathing problems, increasing confusion or other concerns as needed. Drink plenty of fluids. Functional Status Query Response Date Recorded Patient Orientation Person Place Time July 28, 2015 3:12pm Comprehension Ability Understands Concepts July 28, 2015 3:12pm Allergies, Adverse Reactions, Alerts No known allergies. Immunizations Name Given Type Date of Pneumonia Vaccine 04/22/12 Historical Date of Influenza Vaccine 12/21/14 Historical Tetanus Booster (TDap) Unknown Historical Vital Signs Acute Vital Signs Vital Response Date/Time Temperature (Fahrenheit) 97.3 degrees F (97.6 - 99.5) 07/28/2015 3:06pm Temperature (Calculated Celsius) 36.80389 degrees C (36.4 - 37.5) 07/28/2015 3:06pm Temperature Source Temporal 07/28/2015 3:06pm Pulse Rate (adult) 49 bpm (60 - 90) 07/28/2015 3:06pm Respiratory Rate 18 bpm (12 - 24) 07/28/2015 3:06pm O2 Sat by Pulse Oximetry 94 % (88 - 100) 07/28/2015 3:06pm Blood Pressure 118/75 mm Hg 07/28/2015 3:06pm Blood Pressure Mean 89 mm Hg 07/28/2015 3:06pm Pain Pain Intensity 5 07/28/2015 3:06pm Height (Feet) 5 feet 07/28/2015 3:06pm Height (Inches) 2.00 inches 07/28/2015 3:06pm Height (Calculated Centimeters) 157.544514 cm 07/28/2015 3:06pm Weight (Pounds) 155 pounds 07/28/2015 3:06pm Weight (Ounces) 5.0 oz 07/28/2015 3:06pm Weight (Calculated Grams) 18937.566 gm 07/28/2015 3:06pm Weight (Calculated Kilograms) 70.001032 kilograms 07/28/2015 3:06pm Calculated BMI 28.4 07/28/2015 3:06pm Results Pending Laboratory Results Test Name Collection Date/Time Procedures No known history of procedures. Encounters Encounter Location Arrival/Admit Date Discharge/Depart Date Attending Provider Departed Emergency Room [facility] 07/28/15 3:05pm 07/27 5:13pm ISABELLA FARIAS MD Registered Clinic [facility] 07/10/15 1:24pm TORIBIO FOFANA DO Registered Clinic [facility] 07/10/15 10:11am TORIBIO FOFANA DO Recent Diagnosis
[2016-03-25] MEDS ORDERED: fentaNYL INJECTION 100 MCG/2 ML AMP IVP ONE (14:15)
[2016-03-25] MEDS ORDERED: NS IV 1000 ML 1,000 ML IV SCH (14:15)
[2016-03-25] MEDS ORDERED: ONDANSETRON 4 MG/2 ML (SDV) Z0FRAN IVP ONE (14:15)
--- NOTE | 2016-03-25 14:16 | ED General ---
General Chief Complaint: General Problems/Pain Stated Complaint: BLEEDING EPIDURAL Nursing Triage Note: [facility] AREA STARTED "LEAKING " A BLOODY SUBSTANCE WHEN SHE GOT HOME. PT COMPLAINS OF NAUSE ET HEADACHE. Nursing Sepsis Screen: No Definite Risk Source of Information: Patient Exam Limitations: No Limitations History of Present Illness Time Seen by Provider: 14:15 Initial Comments To ER per EMS from home with reports of a persistently bleeding puncture site from her epidural. She had a lumbar epidural steroid injection done this morning for her sciatic pain. She reports that she felt well this morning and after getting home from this she had nausea, headache and worsening low back pain. She's had multiple epidural injections in the past without trouble. Timing/Duration: 4-6 Hours Severity: Mild Associated Systoms: Denies Symptoms Allergies and Home Medications Allergies Coded Allergies: No Known Drug Allergies (Unverified , 06/10/15) Home Medications #60 (Reported) Aspirin 81 Mg Tabec 81 MG PO DAILY (Reported) Budesonide/Formoterol Fumarate 10.2 Gm Hfa.aer.ad 2 PUFF INH BID PRN PRN SHORTNESS OF BREATH (Reported) Ciprofloxacin HCl 500 Mg Tablet #14 (Reported) Clopidogrel Bisulfate 75 Mg Tablet 75 MG PO DAILY (Reported) Cyclosporine 1 Each Droperette 1 DROP OU BID (Reported) Duloxetine HCl 60 Mg Capsule.dr 60 MG PO DAILY (Reported) Ezetimibe 10 Mg Tablet 10 MG PO DAILY (Reported) Fluconazole 100 Mg Tablet 100 MG PC DAILY (Reported) Gabapentin 300 Mg Capsule 300 MG PO BID (Reported) Lactulose 10 Gm/15 Ml Solution 30 ML PO HS PRN PRN CONSTIPATION (Reported) Levothyroxine Sodium 100 Mcg Tablet 100 MCG PO DAILY (Reported) Lorazepam 1 Mg Tablet #15 1 MG PO Q12H PRN PRN ANXIETY Prescribed by: YSABEL ABREU on 07/31/15 0929 Metoprolol Succinate 50 Mg Tab.er.24h 50 MG PO DAILY (Reported) Nitroglycerin 0.4 Mg Tab.subl 0.4 MG PO UD PRN PRN CHEST PAIN (Reported) Omeprazole 40 Mg Capsule.dr #60 (Reported) Pantoprazole Sodium 40 Mg Tablet.dr #30 (Reported) Ropinirole HCl 4 Mg Tablet 8 MG PO HS (Reported) Sucralfate 1 Gm/10 Ml Oral.susp #600 (Reported) Temazepam 30 Mg Capsule #15 30 MG PO HS Prescribed by: YSABEL ABREU on 07/31/15 0929 Constitutional: see HPINo fever EENTM: see HPI Respiratory: no symptoms reported Cardiovascular: no symptoms reported Genitourinary: no symptoms reported Musculoskeletal: no symptoms reported Skin: see HPI Psychiatric/Neurological: No Symptoms Reported Hematologic/Lymphatic: No Symptoms Reported Past Jlbqyxx-Fobqhr-Dbafvp Hx Patient Social History Former Smoker/When Quit: Sep 27, 1997 Recent Foreign Travel: No Contact w/Someone Who Travel: No Recent Infectious Disease Expo: No Recent Hopitalizations: Yes (EPIDURAL PLACED TODAY. ) Immunizations Up To Date Tetanus Booster (TDap): Unknown Date of Pneumonia Vaccine: Apr 22, 2012 Date of Influenza Vaccine: Dec 21, 2014 Seasonal Allergies Seasonal Allergies: No Surgeries HX Surgeries: Yes (COLOSTOMY, KYPHOPLASTY; CARDIAC CATH WITH STENTS X 2; EGD/ COLONOSCOPIES ) Surgeries: Abdominal, Appendectomy, Bowel Surgery, Cardiac, Coronary Stent, Hysterectomy, Orthopedic, Tonsillectomy Respiratory Hx Respiratory Disorders: Yes Respiratory Disorders: Sleep Apnea, COPD Cardiovascular Hx Cardiac Disorders: Yes (STENTS X2) Cardiac Disorders: Coronary Artery Disease, Deep Vein Thrombosis, Hypertension Neurological Hx Neurological Disorders: Yes Neurological Disorders: Vertigo 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 System Hx 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 Disorders: No 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 Genitourinary Hx Genitourinary Disorders: Yes (INCONTINENCE) Genitourinary Disorders: UTI-Chronic Gastrointestinal Hx Gastrointestinal Disorders: Yes (COLOSTOMY; PARASTOMAL HERNIA) Gastrointestinal Disorders: Abdominal Hernia, Gastroesophageal Reflux, Diverticulosis, Esophagitis Musculoskeletal Hx Musculoskeletal Disorders: Yes (compression fracture status post kyphoplasty ) Musculoskeletal Disorders: Osteoporosis, Arthritis, Chronic Back Pain, Fractures Endocrine Hx Endocrine Disorders: Yes Endocrine Disorders: Hypothyroidsim HEENT HX ENT Disorders: Yes (FULL SET OF DENTURES) HEENT Disorders: Cataract Loss of Vision: Denies Hearing Impairment: Denies Cancer Hx Cancer: No Psychosocial Hx Psychiatric Problems: Yes Behavioral Health Disorders: Anxiety, Depression Integumentary HX Skin/Integumentary Disorder: No Blood Transfusions Hx Blood Disorders: Yes (DVT) Family Medical History Significant Family History: No Pertinent Family Hx Family Medial History: Family history: Hypertension G8 BROTHER Myocardial infarction 19 MOTHER G8 BROTHER Physical Exam Vital Signs Vital Sign - Last 12Hours 03/25/16 14:01 Temp 99.5 Pulse 65 Resp 18 Pulse Ox 95 Capillary Refill : Less Than 3 Seconds General Appearance: No Apparent Distress WD/WN Eyes: Bilateral Eye EOMI, Bilateral Eye Normal Inspection, Bilateral Eye PERRL HEENT: PERRL/EOMI TMs Normal Respiratory: Normal Breath Sounds No Accessory Muscle Use No Respiratory Distress Gastrointestinal: Non Tender Soft Other (colostomy bag in place) Extremity: Normal Capillary Refill No Calf Tenderness Neurologic/Psychiatric: Alert Oriented x3 Skin: Normal Color Warm/Dry Progress/Results/Core Measures Results/Orders Lab Results Laboratory Tests Test 03/25/16 14:10 03/25/16 15:20 Range/Units Anion Gap 11 5-14 MMOL/L BUN/Creatinine Ratio 22 Basophils # (Auto) 0.1 0.0-0.1 10^3/uL Basophils (%) (Auto) 1 0-10 % Blood Urea Nitrogen 16 7-18 MG/DL Calcium Level 9.9 8.5-10.1 MG/DL Carbon Dioxide Level 22 21-32 MMOL/L Chloride Level 103 98-107 MMOL/L Creatinine 0.73 0.60-1.30 MG/DL Eosinophils # (Auto) 0.0 0.0-0.3 10^3/uL Eosinophils (%) (Auto) 0 0-10 % Estimat Glomerular Filtration Rate > 60 Glucose Level 137 H 70-105 MG/DL Hematocrit 41 35-52 % Hemoglobin 13.6 11.5-16.0 G/DL Lymphocytes # (Auto) 1.5 1.0-4.0 X 10^3 Lymphocytes (%) (Auto) 12 12-44 % Mean Corpuscular Hemoglobin 27 25-34 PG Mean Corpuscular Hemoglobin Concent 33 32-36 G/DL Mean Corpuscular Volume 81 80-99 FL Mean Platelet Volume 10.2 7.4-10.4 FL Monocytes # (Auto) 0.4 0.0-1.0 X 10^3 Monocytes (%) (Auto) 3 0-12 % Neutrophils # (Auto) 11.1 H 1.8-7.8 X 10^3 Neutrophils (%) (Auto) 85 H 42-75 % Platelet Count 347 130-400 10^3/uL Potassium Level 4.1 3.6-5.0 MMOL/L Red Blood Count 5.12 4.35-5.85 10^6/uL Red Cell Distribution Width 16.6 H 10.0-14.5 % Sodium Level 136 135-145 MMOL/L White Blood Count 13.0 H 4.3-11.0 10^3/uL Urine Amorphous Sediment MOD DUARTE PHOSPHATE H /LPF Urine Bacteria LARGE H /HPF Urine Bilirubin NEGATIVE NEGATIVE Urine Casts NONE /LPF Urine Clarity SLIGHTLY CLOUDY Urine Color YELLOW Urine Crystals PRESENT H /LPF Urine Culture Indicated YES Urine Glucose (UA) NEGATIVE NEGATIVE Urine Ketones NEGATIVE NEGATIVE Urine Leukocyte Esterase 1+ H NEGATIVE Urine Mucus NEGATIVE /LPF Urine Nitrite POSITIVE H NEGATIVE Urine Protein NEGATIVE NEGATIVE Urine RBC 0-2 /HPF Urine RBC (Auto) 5+ H NEGATIVE Urine Specific [place] 1.010 L 1.016-1.022 Urine Urobilinogen NORMAL NORMAL MG/DL Urine WBC 10-25 H /HPF Urine pH 8 5-9 My Orders Orders-ALFREDO JOSÉ APRN Ct Head Wo (03/25/16 14:12) Mri Lumbar Spine W/O Contrast (03/25/16 14:12) Saline Lock/Iv-Start (03/25/16 14:12) Cbc With Automated Diff (03/25/16 14:12) Basic Metabolic Panel (03/25/16 14:12) Ua Culture If Indicated (03/25/16 14:12) Ns Iv 1000 Ml (Sodium Chloride 0.9%) (03/25/16 14:15) Ondansetron Injection (Zofran Injectio (03/25/16 14:15) Fentanyl Injection (Sublimaze Injection (03/25/16 14:15) Morphine Injection (Morphine Injection (03/25/16 15:30) Urine Culture (03/25/16 15:20) Medications Given in ED Current Medications Medications Dose Ordered Sig/Perez Route Start Time Stop Time Status Last Admin Dose Admin Fentanyl Citrate 50 mcg ONCE ONCE IVP 03/25/16 14:15 03/25/16 14:16 DC 03/25/16 14:20 50 MCG Morphine Sulfate 4 mg ONCE ONCE IVP 03/25/16 15:30 03/25/16 15:31 DC 03/25/16 15:28 4 MG Ondansetron HCl 4 mg ONCE ONCE IVP 03/25/16 14:15 03/25/16 14:16 DC 03/25/16 14:20 4 MG Vital Signs/I&O Vital Sign - Last 12Hours 03/25/16 14:01 Temp 99.5 Pulse 65 Resp 18 B/P Pulse Ox 95 Diagnostic Imaging Diagonstic Imaging: CT, MRI Comments NAME: WE[facility] SAD[facility] REC#: [id number] PT STATUS: REG ER : 1940 PHYSICIAN: ALFREDO JOSÉ APRN ADMIT DATE: 03/25/16/ER Draft Date of Exam:03/25/16 CT HEAD WO PROCEDURE: CT head without contrast. TECHNIQUE: Multiple contiguous axial images were obtained through the brain without the use of intravenous contrast. INDICATION: Severe head pain. COMPARISON: 07/30/2015. FINDINGS: Extensive symmetrical periventricular white matter hypodensity is an unchanged finding from prior. Given its stability, it most likely reflects a sequelae of chronic small vessel disease. There is no sulcal effacement. There is no hydrocephalus. There is no evidence for elevated intracerebral pressures and no mass or mass-effect. The basilar cisterns are patent. The orbits and paranasal sinuses and calvarium nonacute. IMPRESSION: Extensive chronic white matter disease, stable from prior. No hemorrhage or acute pathology. Dictated on workstation # [id number] Dict: 03/25/16 1511 Trans: 03/25/16 1517 [facility] [id number] Interpreted by: REBECCA BERNSTEIN Electronically signed by: NAME: WE[facility] REC#: [id number] PT STATUS: REG ER : 1940 PHYSICIAN: ALFREDO JOSÉ APRN ADMIT DATE: 03/25/16/ER Draft Date of Exam:03/25/16 MRI LUMBAR SPINE W/O CONTRAST PROCEDURE: MRI lumbar spine. TECHNIQUE: Multiplanar, multisequence MRI of the lumbar spine was performed without contrast. INDICATION: Recent epidural. Persistent bleeding. Back pain. Headache. History of kyphoplasty. COMPARISON: MRI of the lumbar spine without contrast 05/18/2015. CT lumbar spine without contrast 03/16/2016. FINDINGS: There are 5 lumbar type vertebral bodies. Moderate right apex lumbar curvature centered at L3. There is grade 1 retrolisthesis of L1 on L2 and L2 on L3. Grade 1 anterolisthesis of L4 on L5. No abnormal signal within the conus which terminates at L2. Normal configuration of the cauda equina without evidence of arachnoiditis. No fluid collections within the visualized paravertebral soft tissues or epidural space. Compression deformities of T10, T12 and L5 demonstrate changes of prior vertebroplasty. There is a compression deformity of T11 resulting in approximately 50% height loss and mild edema in the superior endplate. This was present on the 03/16/2016 CT, but is new since the 05/18/2015 MRI. New T1 replacement of the bone marrow signal throughout much of the L3 segment with edema. Although this exam was performed without contrast, findings are suspicious for metastatic disease. No other T1 bone marrow signal replacement or edema suspicious for metastatic disease. T12-L1: Broad-based disc bulge results in mild spinal canal narrowing. Disc space height loss and facet arthropathy, combined with the curvature results in advanced left and moderate right neural foraminal narrowing. L1-L2: Broad-based disc bulge results in mild spinal canal narrowing. Disc space height loss, facet arthropathy and curvature result in advanced bilateral neural foraminal narrowing. L2-L3: Annular disc bulge results in mild narrowing of the left lateral recess. No substantial spinal canal narrowing. Disc space height loss and facet arthropathy contribute to advanced left and mild right neural foraminal narrowing. L3-L4: No substantial spinal canal or neural foraminal narrowing. Disc space height loss, facet arthropathy in the curvature result in advanced left neural foraminal narrowing. No substantial right neural foraminal narrowing. L4-L5: Annular disc bulge with a new left paracentral disc extrusion with inferior migration results in moderate narrowing of the left lateral recess. There is no high-grade spinal canal narrowing. Disc space height loss and facet arthropathy contribute to advanced left and moderate right neural foraminal narrowing. L5-S1: No substantial spinal canal narrowing. The left paracentral disc extrusion described above migrates inferiorly enough to narrow the left lateral recess. Disc space height loss and facet arthropathy contribute to advanced bilateral neural foraminal narrowing. IMPRESSION: 1. New bone marrow signal changes in the L3 vertebral body are suspicious for metastatic disease, less likely fracture. 2. Subacute compression fracture of the T11 superior endplate results in approximately 50% height loss and is new since the prior MRI, but was present on the prior CT exam. 3. New left paracentral disc extrusion with inferior migration narrows the left lateral recess at both the L4-L5 and L5-S1 levels. There is no high-grade spinal canal narrowing in the lumbar spine. 4. Diffuse moderate and advanced neural foraminal narrowing detailed above. 5. No fluid collections in the visualized paraspinal soft tissues or epidural space. Dictated on workstation # [id number] Dict: 03/25/16 1507 Trans: 03/25/16 1543 [facility] [id number] Interpreted by: REBEKAH RAHMAN MD Electronically signed by: Departure Impression Impression: Primary Impression: Post-dural puncture headache Additional Impressions: Acute exacerbation of chronic low back pain Abnormal MRI, lumbar spine Urinary tract infection Disposition: HOME, SELF-CARE Condition: Stable Departure-Patient Inst. Decision time for Depature: 15:51 Referrals: TORIBIO BREWER DO (PCP/Family) Primary Care Physician Patient Instructions: NO INSTRUCTIONS GIVEN, Urinary Tract Infection, Adult (DC ) Add. Discharge Instructions: 1. You must follow-up with Dr. Brewer on Monday in regards to the abnormal appearance of your vertebrae on the MRI 2. Likely flat for the remainder of today this will help with the headache. Pain medication as you normally take them. 3. Return to ER for any fevers or other concerns. All discharge instructions reviewed with patient and/or family. Voiced understanding. Scripts Cefuroxime Axetil (Cefuroxime)250 Mg Xrrrxl288 Mg PO BID #14 TAB Prov:ALFREDO JOSÉ APRN 03/25/16 Copy Copies To 1: TORIBIO BREWER PETER J APRN Mar 25, 2016 14:16
[2016-03-25 14:19] LABS: BASOPHILS # (AUTO) 0.1 10^3/uL (0.0-0.1); BASOPHILS % (AUTO) 1 % (0-10); EOSINOPHILS % (AUTO) 0 % (0-10); LYMPHOCYTES # (AUTO) 1.5 X 10^3 (1.0-4.0); LYMPHOCYTES % (AUTO) 12 % (12-44); MEAN CORPUSCULAR HEMOGLOBIN 27 PG (25-34); MEAN CORPUSCULAR HGB CONC 33 G/DL (32-36); MEAN CORPUSCULAR VOLUME 81 FL (80-99); MEAN PLATELET VOLUME 10.2 FL (7.4-10.4); MONOCYTES # (AUTO) 0.4 X 10^3 (0.0-1.0); MONOCYTES % (AUTO) 3 % (0-12); NEUTROPHILS # (AUTO) 11.1 X 10^3 (1.8-7.8); NEUTROPHILS % (AUTO) 85 % (42-75); PLATELET COUNT 347 10^3/uL (130-400); RED BLOOD COUNT 5.12 10^6/uL (4.35-5.85); RED CELL DISTRIBUTION WIDTH 16.6 % (10.0-14.5)
[2016-03-25 14:33] LABS: ANION GAP 11 MMOL/L (5-14); BLOOD UREA NITROGEN 16 MG/DL (7-18); BUN/CREATININE RATIO 22; CALCIUM 9.9 MG/DL (8.5-10.1); CARBON DIOXIDE 22 MMOL/L (21-32); CHLORIDE 103 MMOL/L (98-107); CREATININE SERUM 0.73 MG/DL (0.60-1.30); GFR ESTIMATED > 60; GLUCOSE 137 MG/DL (70-105); POTASSIUM 4.1 MMOL/L (3.6-5.0); SODIUM 136 MMOL/L (135-145)
--- NOTE | 2016-03-25 15:18 | Diagnostic Imaging Report ---
PROCEDURE: CT head without contrast. TECHNIQUE: Multiple contiguous axial images were obtained through the brain without the use of intravenous contrast. INDICATION: Severe head pain. COMPARISON: 07/30/2015. FINDINGS: Extensive symmetrical periventricular white matter hypodensity is an unchanged finding from prior. Given its stability, it most likely reflects a sequelae of chronic small vessel disease. There is no sulcal effacement. There is no hydrocephalus. There is no evidence for elevated intracerebral pressures and no mass or mass-effect. The basilar cisterns are patent. The orbits and paranasal sinuses and calvarium nonacute. IMPRESSION: Extensive chronic white matter disease, stable from prior. No hemorrhage or acute pathology. Dictated by: Dictated on workstation # [id number]
[2016-03-25] MEDS ORDERED: morphine INJ 10 MG/ML 1ML (SYR OR VIAL) IVP ONE (15:30)
[2016-03-25 15:31] LABS: BILIRUBIN,URINE NEGATIVE (NEGATIVE); KETONES,URINE NEGATIVE (NEGATIVE); LEUKOCYTE ESTERASE ,URINE 1+ (NEGATIVE); NITRITE,URINE POSITIVE (NEGATIVE); PH,URINE 8 (5-9); PROTEIN,URINE NEGATIVE (NEGATIVE); UROBILINOGEN,URINE NORMAL (NORMAL)
--- NOTE | 2016-03-25 15:43 | Diagnostic Imaging Report ---
PROCEDURE: MRI lumbar spine. TECHNIQUE: Multiplanar, multisequence MRI of the lumbar spine was performed without contrast. INDICATION: Recent epidural. Persistent bleeding. Back pain. Headache. History of kyphoplasty. COMPARISON: MRI of the lumbar spine without contrast 05/18/2015. CT lumbar spine without contrast 03/16/2016. FINDINGS: There are 5 lumbar type vertebral bodies. Moderate right apex lumbar curvature centered at L3. There is grade 1 retrolisthesis of L1 on L2 and L2 on L3. Grade 1 anterolisthesis of L4 on L5. No abnormal signal within the conus which terminates at L2. Normal configuration of the cauda equina without evidence of arachnoiditis. No fluid collections within the visualized paravertebral soft tissues or epidural space. Compression deformities of T10, T12 and L5 demonstrate changes of prior vertebroplasty. There is a compression deformity of T11 resulting in approximately 50% height loss and mild edema in the superior endplate. This was present on the 03/16/2016 CT, but is new since the 05/18/2015 MRI. New T1 replacement of the bone marrow signal throughout much of the L3 segment with edema. Although this exam was performed without contrast, findings are suspicious for metastatic disease. No other T1 bone marrow signal replacement or edema suspicious for metastatic disease. T12-L1: Broad-based disc bulge results in mild spinal canal narrowing. Disc space height loss and facet arthropathy, combined with the curvature results in advanced left and moderate right neural foraminal narrowing. L1-L2: Broad-based disc bulge results in mild spinal canal narrowing. Disc space height loss, facet arthropathy and curvature result in advanced bilateral neural foraminal narrowing. L2-L3: Annular disc bulge results in mild narrowing of the left lateral recess. No substantial spinal canal narrowing. Disc space height loss and facet arthropathy contribute to advanced left and mild right neural foraminal narrowing. L3-L4: No substantial spinal canal or neural foraminal narrowing. Disc space height loss, facet arthropathy in the curvature result in advanced left neural foraminal narrowing. No substantial right neural foraminal narrowing. L4-L5: Annular disc bulge with a new left paracentral disc extrusion with inferior migration results in moderate narrowing of the left lateral recess. There is no high-grade spinal canal narrowing. Disc space height loss and facet arthropathy contribute to advanced left and moderate right neural foraminal narrowing. L5-S1: No substantial spinal canal narrowing. The left paracentral disc extrusion described above migrates inferiorly enough to narrow the left lateral recess. Disc space height loss and facet arthropathy contribute to advanced bilateral neural foraminal narrowing. IMPRESSION: 1. New bone marrow signal changes in the L3 vertebral body are suspicious for metastatic disease, less likely fracture. 2. Subacute compression fracture of the T11 superior endplate results in approximately 50% height loss and is new since the prior MRI, but was present on the prior CT exam. 3. New left paracentral disc extrusion with inferior migration narrows the left lateral recess at both the L4-L5 and L5-S1 levels. There is no high-grade spinal canal narrowing in the lumbar spine. 4. Diffuse moderate and advanced neural foraminal narrowing detailed above. 5. No fluid collections in the visualized paraspinal soft tissues or epidural space. Dictated by: Dictated on workstation # [id number]
[2016-03-25] MEDS ORDERED: CEFU250T80 PO (16:06)
[2016-03-25] MEDS ORDERED: cefTRIAXone INJECTION 1,000 MG in NS (IVPB) 50 ML IV ONE (16:15)
[2016-03-25 16:50] VITALS: BP 176/81
[2016-04-06] MEDS ORDERED: ROPI1TAB2 PO (10:17)
== END 2016-03-25 16:50 | disposition home or self-care (01) ==
LOC: EDUNIT# 13:59 → ER 14:01 → EDBD 14:01 → ER 16:50
DX: T88.59XA Other complications of anesthesia, initial encounter (principal); M47.816 Spondylosis without myelopathy or radiculopathy, lumbar region; G89.29 Other chronic pain; N39.0 Urinary tract infection, site not specified; R93.7 Abnormal findings on diagnostic imaging of other parts of musculoskeletal system; I10 Essential (primary) hypertension; I25.10 Atherosclerotic heart disease of native coronary artery without angina pectoris; K57.30 Diverticulosis of large intestine without perforation or abscess without bleeding; E03.9 Hypothyroidism, unspecified; Z79.82 Long term (current) use of aspirin; Z79.899 Other long term (current) drug therapy; Z95.5 Presence of coronary angioplasty implant and graft
CPT/HCPCS: 36415; 70450; 72148; 80048; 81000; 85025; 87088; 87186; 96361; 96365; 96375

== ENCOUNTER 2016-03-26 15:06 | Inpatient (IN) | payer MEDICARE, MEDICAID ==
[~2016-03-26] VITALS: Ht 154.9 cm; Wt 66.2 kg
[~2016-03-26 15:06] MED LIST changes: +CEFU250T80 PO
--- OUTSIDE RECORDS SUMMARY | 2016-03-26 15:11 | XMS REPORT | Continuity of Care Document ---
Author Author [facility] Organization [facility] Address Unknown Phone Unavailable Care Team Providers Care Racker Octave Board Name Role Phone Roro Brewer III PCP [phone] Source Comments Some departments are not documenting in the electronic medical record. If you do not see the information that you expected, contact Release of Information in the Health Information Management department at [phone] for further assistance in locating additional records.[facility] Active Allergies and Adverse Reactions Allergen Noted [...] emulsion needed. fluticasone (FLONASE) 50 Apply 1 [place] to each Active mcg/actuation nasal spray nostril [...] (coronary artery disease) 06/03/2009 Overview: Hx of [place] 4 yrs ago Depression 06/03/2009 Arthritis 06/03/2009 [...]
[2016-03-26] MEDS ORDERED: fentaNYL INJECTION 100 MCG/2 ML AMP IVP STA (15:26)
[2016-03-26] MEDS ORDERED: fentaNYL INJECTION 100 MCG/2 ML AMP ONE (15:28)
[2016-03-26 15:33] LABS: BASOPHILS % (AUTO) 0 % (0-10); EOSINOPHILS % (AUTO) 0 % (0-10); LYMPHOCYTES % (AUTO) 12 % (12-44); MEAN CORPUSCULAR HEMOGLOBIN 27 PG (25-34); MEAN CORPUSCULAR HGB CONC 33 G/DL (32-36); MEAN CORPUSCULAR VOLUME 82 FL (80-99); MEAN PLATELET VOLUME 10.3 FL (7.4-10.4); MONOCYTES # (AUTO) 1.2 X 10^3 (0.0-1.0); MONOCYTES % (AUTO) 7 % (0-12); NEUTROPHILS # (AUTO) 13.6 X 10^3 (1.8-7.8); NEUTROPHILS % (AUTO) 81 % (42-75); PLATELET COUNT 366 10^3/uL (130-400); RED BLOOD COUNT 5.15 10^6/uL (4.35-5.85); RED CELL DISTRIBUTION WIDTH 16.5 % (10.0-14.5); WHITE BLOOD COUNT 16.8 10^3/uL (4.3-11.0)
[2016-03-26 15:47] LABS: ALANINE AMINOTRANSFERASE 13 U/L (0-55); ALBUMIN 4.1 G/DL (3.2-4.5); ANION GAP 10 MMOL/L (5-14); ASPARTATE AMINO TRANSFERASE 16 U/L (5-34); BILIRUBIN,TOTAL 0.4 MG/DL (0.1-1.0); BLOOD UREA NITROGEN 27 MG/DL (7-18); BUN/CREATININE RATIO 33; CALCIUM 10.1 MG/DL (8.5-10.1); CARBON DIOXIDE 23 MMOL/L (21-32); CHLORIDE 104 MMOL/L (98-107); CREATININE SERUM 0.82 MG/DL (0.60-1.30); GFR ESTIMATED > 60; GLUCOSE 148 MG/DL (70-105); MAGNESIUM 2.4 MG/DL (1.8-2.4); POTASSIUM 4.4 MMOL/L (3.6-5.0); SODIUM 137 MMOL/L (135-145); TOTAL PROTEIN 6.7 G/DL (6.4-8.2)
[2016-03-26 15:48] LABS: BAND NEUTROPHILS 2 %; BASOPHILS % (MANUAL) 0 %; EOSINOPHILS % (MANUAL) 0 %; LYMPHOCYTES % (MANUAL) 16 %; NEUTROPHILS % (MANUAL) 77 %
[2016-03-26 15:53] LABS: TROPONIN I < 0.30 NG/ML (<0.30)
[2016-03-26] MEDS ORDERED: morphine INJ 10 MG/ML 1ML (SYR OR VIAL) IVP STA (16:04)
[2016-03-26] MEDS ORDERED: morphine INJ 10 MG/ML 1ML (SYR OR VIAL) ONE (16:06)
--- NOTE | 2016-03-26 16:06 | Diagnostic Imaging Report ---
INDICATION: Fall, hip pain. COMPARISON: None. FINDINGS: Single view of the pelvis demonstrates displaced intertrochanteric fracture of right hip. The pelvis is intact. The left hip unremarkable. IMPRESSION: Right hip fracture. Dictated by: Dictated on workstation # [id number]
--- NOTE | 2016-03-26 16:09 | Diagnostic Imaging Report ---
INDICATION: Fall, right hip pain. COMPARISON: None. FINDINGS: Two views of right hip demonstrate displaced intertrochanteric fracture with some involvement of the proximal femur. There is no dislocation. IMPRESSION: Right hip fracture. Dictated by: Dictated on workstation # [id number]
--- NOTE | 2016-03-26 16:10 | Diagnostic Imaging Report ---
INDICATION: Fall, right hip fracture. COMPARISON: 07/30/2015. FINDINGS: Single view of the chest demonstrates cardiac enlargement without pulmonary edema. Lungs are clear. There is no pneumothorax. Kyphoplasty changes seen in thoracic spine. IMPRESSION: Cardiac enlargement without pulmonary edema or infiltrate. Dictated by: Dictated on workstation # [id number]
[2016-03-26] MEDS ORDERED: HYDROmorphone (DILAUDID) 2 MG/ML VIAL IVP STA (16:50)
--- NOTE | 2016-03-26 16:50 | ED Fall/Injury ---
General Chief Complaint: Trauma-Non Activation Stated Complaint: FALL/BACK PAIN Nursing Triage Note: PT STATES RT HIP PAIN FROM A FALL. Source: patient, EMS Exam Limitations: no limitations History of Present Illness Time seen by provider: 15:28 Initial Comments 75 yo female patient presents to the ED via EMS with complaints of right hip pain after falling. Patient reports syncopal episode at home. Patient reportedly felt lightheaded and tried to grab the table. Was unsuccessful and passed out. Reports waking up on the floor. Was seen here yesterday for fall with CT scan of the head performed. Patient states she is scheduled to see Dr. Yusuf as an outpatient this week for discussion of possible parastomal hernia repair. Denies headache, neck pain, back pain, chest pain, SOA. Location Injury Occurred: home Occurred: just prior to arrival Injuries/Pain Location: lower extremity Context: fainted Loss of Consciousness: unsure Modifying Factors: Improves With Immobilization, Worse With Movement Allergies and Home Medications Allergies Coded Allergies: No Known Drug Allergies (Unverified , 06/10/15) Home Medications #60 (Reported) Aspirin 81 Mg Tabec 81 MG PO DAILY (Reported) Budesonide/Formoterol Fumarate 10.2 Gm Hfa.aer.ad 2 PUFF INH BID PRN PRN SHORTNESS OF BREATH (Reported) Cefuroxime Axetil 250 Mg Tablet #14 250 MG PO BID Prescribed by: ALFREDO JOSÉ on 03/25/16 1606 Ciprofloxacin HCl 500 Mg Tablet #14 (Reported) Clopidogrel Bisulfate 75 Mg Tablet 75 MG PO DAILY (Reported) Cyclosporine 1 Each Droperette 1 DROP OU BID (Reported) Duloxetine HCl 60 Mg Capsule.dr 60 MG PO DAILY (Reported) Ezetimibe 10 Mg Tablet 10 MG PO DAILY (Reported) Fluconazole 100 Mg Tablet 100 MG PC DAILY (Reported) Gabapentin 300 Mg Capsule 300 MG PO BID (Reported) Lactulose 10 Gm/15 Ml Solution 30 ML PO HS PRN PRN CONSTIPATION (Reported) Levothyroxine Sodium 100 Mcg Tablet 100 MCG PO DAILY (Reported) Lorazepam 1 Mg Tablet #15 1 MG PO Q12H PRN PRN ANXIETY Prescribed by: YSABEL ABREU on 07/31/15 0950 Metoprolol Succinate 50 Mg Tab.er.24h 50 MG PO DAILY (Reported) Nitroglycerin 0.4 Mg Tab.subl 0.4 MG PO UD PRN PRN CHEST PAIN (Reported) Omeprazole 40 Mg Capsule.dr #60 (Reported) Pantoprazole Sodium 40 Mg Tablet.dr #30 (Reported) Ropinirole HCl 4 Mg Tablet 8 MG PO HS (Reported) Sucralfate 1 Gm/10 Ml Oral.susp #600 (Reported) Temazepam 30 Mg Capsule #15 30 MG PO HS Prescribed by: YSABEL ABREU on 07/31/15 0977 Constitutional: no symptoms reported Eyes: No Symptoms Reported Ears, Nose, Mouth, Throat: no symptoms reported Respiratory: No cough, No short of breath Cardiovascular: No chest pain, No palpitations, No syncope Gastrointestinal: No abdominal pain, No constipation, No diarrhea, No nausea, No vomiting Genitourinary: no symptoms reported Musculoskeletal: see HPINo back pain, joint pain (rt hip)No joint swelling, No neck pain Skin: no symptoms reported Psychiatric/Neurological: Denies Headache, Denies Numbness, Denies Paresthesia , Denies Seizure, Denies Tingling, Denies Weakness All Other Systems Reviewed Negative Unless Noted: Yes (Negative excepted noted.) Past Tmtdedp-Eqfylb-Frbbjw Hx Patient Social History Alcohol Use: Denies Use Recreational Drug Use: No Smoking Status: Unknown if Ever Smoked Former Smoker/When Quit: Sep 27, 1997 Recent Foreign Travel: No Contact w/Someone Who Travel: No Recent Infectious Disease Expo: No Recent Hopitalizations: Yes (EPIDURAL PLACED. ) Immunizations Up To Date Tetanus Booster (TDap): Unknown Date of Pneumonia Vaccine: Apr 22, 2012 Date of Influenza Vaccine: Dec 21, 2014 Seasonal Allergies Seasonal Allergies: No Surgeries HX Surgeries: Yes (COLOSTOMY, KYPHOPLASTY; CARDIAC CATH WITH STENTS X 2; EGD/ COLONOSCOPIES ) Surgeries: Abdominal, Appendectomy, Bowel Surgery, Cardiac, Coronary Stent, Hysterectomy, Orthopedic, Tonsillectomy Respiratory Hx Respiratory Disorders: Yes Respiratory Disorders: Sleep Apnea, COPD Cardiovascular Hx Cardiac Disorders: Yes (STENTS X2) Cardiac Disorders: Coronary Artery Disease, Deep Vein Thrombosis, Hypertension Neurological Hx Neurological Disorders: Yes Neurological Disorders: Vertigo 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 System Hx 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 Disorders: No 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 Genitourinary Hx Genitourinary Disorders: Yes (INCONTINENCE) Genitourinary Disorders: UTI-Chronic Gastrointestinal Hx Gastrointestinal Disorders: Yes (COLOSTOMY; PARASTOMAL HERNIA) Gastrointestinal Disorders: Abdominal Hernia, Gastroesophageal Reflux, Diverticulosis, Esophagitis Musculoskeletal Hx Musculoskeletal Disorders: Yes (compression fracture status post kyphoplasty ) Musculoskeletal Disorders: Osteoporosis, Arthritis, Chronic Back Pain, Fractures Endocrine Hx Endocrine Disorders: Yes Endocrine Disorders: Hypothyroidsim HEENT HX ENT Disorders: Yes (FULL SET OF DENTURES) HEENT Disorders: Cataract Loss of Vision: Denies Hearing Impairment: Denies Cancer Hx Cancer: No Psychosocial Hx Psychiatric Problems: Yes Behavioral Health Disorders: Anxiety, Depression Integumentary HX Skin/Integumentary Disorder: No Blood Transfusions Hx Blood Disorders: Yes (DVT) Reviewed Nursing Assessment Reviewed/Agree w Nursing PMH: Yes Family Medical History Significant Family History: No Pertinent Family Hx Family Medial History: Family history: Hypertension G8 BROTHER Myocardial infarction 19 MOTHER G8 BROTHER Physical Exam Vital Signs Vital Sign - Last 12Hours 03/26/16 15:25 Temp 97.9 Pulse 53 Resp 22 B/P 128/80 Pulse Ox 98 O2 Delivery Room Air Capillary Refill : Less Than 3 Seconds General Appearance: WD/WN no apparent distress HEENT: PERRL/EOMI normal ENT inspection TMs normal pharynx normal other ( normocephalic, atraumatic.) Neck: non-tender full range of motion supple normal inspection Cardiovascular: regular rate, rhythm no murmur Respiratory: chest non-tender lungs clear normal breath sounds no respiratory distress Peripheral Pulses: 1+ Dorsalis Pedis (R) (right posterior tibialis 1+), 1+ Left Dors-Pedis (L) (left posterior tibialis 1+) Gastrointestinal: normal bowel sounds non tender softNo distended, other ( parastoma hernia in the RLQ. Stoma pink.) Back: normal inspection no vertebral tenderness Extremities: no calf tenderness normal capillary refill pelvis stable other ( RLE externally rotated and shortened. Bony and soft tissue tenderness. ) Neurologic/Psychiatric: acquisition advisor II-XII nml as tested no motor/sensory deficits alert normal mood/affect oriented x 3 Skin: normal color warm/dry Damir Coma Score Best Eye Response: (4) Open Spontaneously Best Verbal Response: (5) Oriented Best Motor Response: (6) Obeys Commands Damir Total: 15 Progress/Results/Core Measures Results/Orders Lab Results Laboratory Tests Test 03/26/16 15:18 Range/Units Alanine Aminotransferase (ALT/SGPT) 13 0-55 U/L Albumin 4.1 3.2-4.5 G/DL Alkaline Phosphatase 124 40-136 U/L Anion Gap 10 5-14 MMOL/L Aspartate Amino Transf (AST/SGOT) 16 5-34 U/L BUN/Creatinine Ratio 33 Band Neutrophils 2 % Basophils # (Auto) 0.0 0.0-0.1 10^3/uL Basophils % (Manual) 0 % Basophils (%) (Auto) 0 0-10 % Blood Morphology Comment NORMAL Blood Urea Nitrogen 27 H 7-18 MG/DL Calcium Level 10.1 8.5-10.1 MG/DL Carbon Dioxide Level 23 21-32 MMOL/L Chloride Level 104 98-107 MMOL/L Creatinine 0.82 0.60-1.30 MG/DL Eosinophils # (Auto) 0.0 0.0-0.3 10^3/uL Eosinophils % (Manual) 0 % Eosinophils (%) (Auto) 0 0-10 % Estimat Glomerular Filtration Rate > 60 Glucose Level 148 H 70-105 MG/DL Hematocrit 42 35-52 % Hemoglobin 13.8 11.5-16.0 G/DL Lymphocytes # (Auto) 2.0 1.0-4.0 X 10^3 Lymphocytes % (Manual) 16 % Lymphocytes (%) (Auto) 12 12-44 % Magnesium Level 2.4 1.8-2.4 MG/DL Mean Corpuscular Hemoglobin 27 25-34 PG Mean Corpuscular Hemoglobin Concent 33 32-36 G/DL Mean Corpuscular Volume 82 80-99 FL Mean Platelet Volume 10.3 7.4-10.4 FL Monocytes # (Auto) 1.2 H 0.0-1.0 X 10^3 Monocytes % (Manual) 5 % Monocytes (%) (Auto) 7 0-12 % Neutrophils # (Auto) 13.6 H 1.8-7.8 X 10^3 Neutrophils % (Manual) 77 % Neutrophils (%) (Auto) 81 H 42-75 % Nucleated Red Blood Cells 1 Platelet Count 366 130-400 10^3/uL Potassium Level 4.4 3.6-5.0 MMOL/L Red Blood Count 5.15 4.35-5.85 10^6/uL Red Cell Distribution Width 16.5 H 10.0-14.5 % Sodium Level 137 135-145 MMOL/L Total Bilirubin 0.4 0.1-1.0 MG/DL Total Protein 6.7 6.4-8.2 G/DL Troponin I < 0.30 <0.30 NG/ML White Blood Count 16.8 H 4.3-11.0 10^3/uL My Orders Orders-NI ZUÑIGA Pelvis (03/26/16 15:09) Hip, Right, 2 Views (03/26/16 15:09) Ct Head Wo (03/26/16 15:09) Cbc With Automated Diff (03/26/16:26) Comprehensive Metabolic Panel (03/26/16:) Magnesium (03/26/16:) Troponin I (03/26/16:) Ua Culture If Indicated (03/26/16:) Saline Lock/Iv-Start (03/26/16:) Ekg Tracing (03/26/16:) Monitor-Rhythm Ecg Trace Only (03/26/16:) Fentanyl Injection (Sublimaze Injection (03/26/16 15:26) Chest 1 View, Ap/Pa Only (03/26/16 15:28) Fentanyl Injection (Sublimaze Injection (03/26/16 15:28) Manual Differential (03/26/16 15:18) Morphine Injection (Morphine Injection (03/26/16 16:04) Morphine Injection (Morphine Injection (03/26/16 16:06) Hydromorphone Injection (Dilaudid Inject (03/26/16 16:50) Vital Signs/I&O Vital Sign - Last 12Hours 03/26/16 15:25 Temp 97.9 Pulse 53 Resp 22 B/P 128/80 Pulse Ox 98 O2 Delivery Room Air Blood Pressure Mean: 96 ECG Initial ECG Impression Date: Mar 26, 2016 Initial ECG Impression Time: 15:32 Initial ECG Rate: 60 Initial ECG Rhythm: Normal Sinus Initial ECG Comparisson: Unchanged Comment sinus rhythm. No stemi or arrhythmia. ECG reviewed and discussed with Dr. Mcdowell. Diagnostic Imaging Diagonstic Imaging: CT Plain Films/CT/US/NM/MRI: head Comments FINDINGS: Noncontrast CT scan of the head demonstrates fairly extensive periventricular and subcortical white matter disease which appear stable. No focal areas of infarction are present. Generalized atrophy appears stable. There is no mass effect, midline shift, or hemorrhage. The bone windows demonstrate no fluid in the mastoid air cells or paranasal sinuses. No fractures are seen. IMPRESSION: Stable atrophy and microvascular disease. Dictated by: Dictated on workstation # [id number] Reviewed: Reviewed by Me (radiology report reviewed by me) Diagonstic Imaging: Xray Plain Films/CT/US/NM/MRI: chest Comments FINDINGS: Single view of the chest demonstrates cardiac enlargement without pulmonary edema. Lungs are clear. There is no pneumothorax. Kyphoplasty changes seen in thoracic spine. IMPRESSION: Cardiac enlargement without pulmonary edema or infiltrate. Dictated by: Dictated on workstation # [id number] Reviewed: Reviewed by Me (radiology report reviewed by me) Diagonstic Imaging: Xray Plain Films/CT/US/NM/MRI: pelvis Comments FINDINGS: Single view of the pelvis demonstrates displaced intertrochanteric fracture of right hip. The pelvis is intact. The left hip unremarkable. IMPRESSION: Right hip fracture. Dictated by: Dictated on workstation # [id number] Reviewed: Reviewed by Me (radiology report reviewed by me) Diagonstic Imaging: Xray Plain Films/CT/US/NM/MRI: hip (right hip) Comments FINDINGS: Two views of right hip demonstrate displaced intertrochanteric fracture with some involvement of the proximal femur. There is no dislocation. IMPRESSION: Right hip fracture. Dictated by: Dictated on workstation # [id number] Reviewed: Reviewed by Me (radiology report reviewed by me) Departure Communication Time/Spoke to Admitting Phy: 16:[address] Tipton accepts patient to his internal medicine service for pain control and consult of orthopedics Time/Spoke to Consulting Physi: 16:12 Communication/Consulting Dr. Rosas in the emergency department to evaluate the patient. Request patient to be admitted to the internal medicine service. Planning for open reduction internal fixation of the right hip tomorrow morning. Impression Impression: Primary Impression: Closed right hip fracture Qualified Code: S72.001A - Fracture of unspecified part of neck of right femur , initial encounter for closed fracture Additional Impressions: Episode of syncope Qualified Code: R55 - Syncope and collapse Frequent falls Disposition: ADMITTED INPATIENT Condition: Stable Decision to Admit Reason: Admit from ER (General) Decision to Admit/Date: Mar 26, 2016 Time/Decision to Admit Time: 16:20 Departure-Patient Inst. Referrals: TORIBIO FOFANA DO (PCP/Family) Primary Care Physician NI ZUÑIGA Mar 26, 2016 16:50
--- NOTE | 2016-03-26 17:40 | Diagnostic Imaging Report ---
PROCEDURE: CT head without contrast. TECHNIQUE: Multiple contiguous axial images were obtained through the brain without the use of intravenous contrast. INDICATION: Fell COMPARISON STUDY: CT scan of the head from yesterday. FINDINGS: Noncontrast CT scan of the head demonstrates fairly extensive periventricular and subcortical white matter disease which appear stable. No focal areas of infarction are present. Generalized atrophy appears stable. There is no mass effect, midline shift, or hemorrhage. The bone windows demonstrate no fluid in the mastoid air cells or paranasal sinuses. No fractures are seen. IMPRESSION: Stable atrophy and microvascular disease. Dictated by: Dictated on workstation # [id number]
[2016-03-26 18:00] VITALS: BP 152/76
[2016-03-26] MEDS ORDERED: ONDANSETRON 4 MG/2 ML (SDV) Z0FRAN IVP PRN (18:15)
[2016-03-26] MEDS: morphine INJ 4 MG/ML 1 ML (VIAL/SYRINGE) IVP PRN ×2 (18:18→21:08)
[2016-03-26] MEDS: NS W/KCL 20 MEQ/L 1,000 ML IV SCH (18:18)
[2016-03-26 20:00] VITALS: BP 138/78
[2016-03-26] MEDS ORDERED: CATHETER FLUSH 10 ML SYR IV PRN (20:45)
--- NOTE | 2016-03-26 20:46 | Consultation ---
History of Present Illness History of Present Illness Patient Consulted On(chris/time) 03/26/16 20:40 Date of Admission 03/26/2016 Reason for Visit: Right Hip pain History of Present Illness This 75 year old female fell at home and fractured the right hip. She said she bent over to clean up after her dog and got dizzy. She fell and says she passed out and could not move the right leg without pain when she regained consciousness. Dr. Mcdowell in the ER asked me to see her in consultation for the right hip fracture. He is admitting her to the hospitalist. She denies any other extremity pain. She is having chronic lower back pain and actually just came to the ER yesterday for the spine. She has been having pain injections in the spine. She has some cardiovascular disease and sees Dr. Rosales for her heart, and he took her off of Plavix and ASA recently so that she could have a ventral hernia repair on Monday. She has a colostomy. I saw her today in the ER with her daughter. Allergies and Home Medications Allergies Coded Allergies: No Known Drug Allergies (Unverified , 06/10/15) Home Medications #60 (Reported) Aspirin 81 Mg Tabec 81 MG PO DAILY (Reported) Budesonide/Formoterol Fumarate 10.2 Gm Hfa.aer.ad 2 PUFF INH BID PRN PRN SHORTNESS OF BREATH (Reported) Cefuroxime Axetil 250 Mg Tablet #14 250 MG PO BID Prescribed by: ALFREDO JOSÉ on 03/25/16 1606 Ciprofloxacin HCl 500 Mg Tablet #14 (Reported) Clopidogrel Bisulfate 75 Mg Tablet 75 MG PO DAILY (Reported) Cyclosporine 1 Each Droperette 1 DROP OU BID (Reported) Duloxetine HCl 60 Mg Capsule.dr 60 MG PO DAILY (Reported) Ezetimibe 10 Mg Tablet 10 MG PO DAILY (Reported) Fluconazole 100 Mg Tablet 100 MG PC DAILY (Reported) Gabapentin 300 Mg Capsule 300 MG PO BID (Reported) Lactulose 10 Gm/15 Ml Solution 30 ML PO HS PRN PRN CONSTIPATION (Reported) Levothyroxine Sodium 100 Mcg Tablet 100 MCG PO DAILY (Reported) Lorazepam 1 Mg Tablet #15 1 MG PO Q12H PRN PRN ANXIETY Prescribed by: YSABEL ABREU on 07/31/15 0981 Metoprolol Succinate 50 Mg Tab.er.24h 50 MG PO DAILY (Reported) Nitroglycerin 0.4 Mg Tab.subl 0.4 MG PO UD PRN PRN CHEST PAIN (Reported) Omeprazole 40 Mg Capsule.dr #60 (Reported) Pantoprazole Sodium 40 Mg Tablet.dr #30 (Reported) Ropinirole HCl 4 Mg Tablet 8 MG PO HS (Reported) Sucralfate 1 Gm/10 Ml Oral.susp #600 (Reported) Temazepam 30 Mg Capsule #15 30 MG PO HS Prescribed by: YSABEL ABREU on 07/31/15 0929 Past Ptqwzhb-Oskpzh-Qxqlwo Hx Patient Social History Alcohol Use: Denies Use Recreational Drug Use: No Smoking Status: Former Smoker Type Used: Cigarettes Former Smoker/When Quit: Sep 27, 1997 Recent Foreign Travel: No Contact w/Someone Who Travel: No Recent Infectious Disease Expo: No Recent Hopitalizations: Yes (EPIDURAL YESTERDAY) Physical Abuse Screen: No Sexual Abuse: No Immunizations Up To Date Tetanus Booster (TDap): Unknown PED Vaccines UTD: No Date of Pneumonia Vaccine: Apr 22, 2009 Date of Influenza Vaccine: Dec 21, 2014 Seasonal Allergies Seasonal Allergies: No Surgeries HX Surgeries: Yes (COLOSTOMY, KYPHOPLASTY; CARDIAC CATH WITH STENTS X 2; EGD/ COLONOSCOPIES ) Surgeries: Abdominal, Appendectomy, Bowel Surgery, Cardiac, Coronary Stent, Hysterectomy, Orthopedic, Tonsillectomy Respiratory Hx Respiratory Disorders: Yes Respiratory Disorders: COPD Cardiovascular Hx Cardiac Disorders: Yes (STENTS X2) Cardiac Disorders: Coronary Artery Disease, Deep Vein Thrombosis, Hypertension Neurological Hx Neurological Disorders: Yes Neurological Disorders: Vertigo 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 System Hx 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 Disorders: 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 Genitourinary Hx Genitourinary Disorders: Yes (INCONTINENCE) Genitourinary Disorders: UTI-Chronic Gastrointestinal Hx Gastrointestinal Disorders: Yes (COLOSTOMY; PARASTOMAL HERNIA) Gastrointestinal Disorders: Abdominal Hernia, Gastroesophageal Reflux, Diverticulosis, Esophagitis Musculoskeletal Hx Musculoskeletal Disorders: Yes (compression fracture status post kyphoplasty ) Musculoskeletal Disorders: Osteoporosis, Arthritis, Chronic Back Pain, Fractures Endocrine Hx Endocrine Disorders: Yes Endocrine Disorders: Hypothyroidsim HEENT HX ENT Disorders: Yes (FULL SET OF DENTURES) HEENT Disorders: Cataract Loss of Vision: Denies Hearing Impairment: Denies Cancer Hx Cancer: No Psychosocial Hx Psychiatric Problems: Yes Behavioral Health Disorders: Anxiety, Depression Integumentary HX Skin/Integumentary Disorder: No Blood Transfusions Hx Blood Disorders: Yes (DVT) Reviewed Nursing Assessment Reviewed/Agree w Nursing PMH: Yes Family Medical History Significant Family History: No Pertinent Family Hx Family Medial History: Family history: Hypertension G8 BROTHER Myocardial infarction 19 MOTHER G8 BROTHER Physical Exam-General Problems Physical Exam Vital Signs Vital Sign - Last 12Hours 03/26/16 15:25 Temp 97.9 Pulse 53 Resp 22 B/P 128/80 Pulse Ox 98 O2 Delivery Room Air Capillary Refill : Less Than 3 SecondsLess Than 3 Seconds General Appearance: WD/WN Neck: non-tender Respiratory: chest non-tender Back: vertebral tenderness Extremities: no pedal edema no calf tenderness other (Tender right hip. Right leg shortened and externally rotated.) Neurologic/Psychiatric: no motor/sensory deficits normal mood/affect oriented x 3 Skin: normal color warm/dry Assessment/Plan Assessment/Plan Admission Diagnosis/Plan Right subtrochanteric femur fracture-- She was just seen in the ER at approximately 3:45 PM today and ate a full meal at noon. We will keep her NPO past midnight and plan for ORIF of the right hip at 8:00 AM tomorrow with a trochanteric femoral nail. She will likely require rehab or senior care. Clinical Quality Measures DVT/VTE Risk/Contraindication: Risk Factor Score Per Nursin RFS Level Per Nursing on Admit: 4+=Very High ARIS JONES MD Mar 26, 2016 20:46
[2016-03-26] MEDS: FAMOTIDINE 20MG/2ML IV (PEPCID) IVP SCH (21:08)
[2016-03-26] MEDS: CATHETER FLUSH 10 ML SYR IV SCH (21:08)
[2016-03-26] MEDS: oxyCODONE/APAP 10/325MG (PERCOCET 10) TABLET PO PRN (22:46)
[2016-03-27] VITALS: BP 136/67
[2016-03-27] MEDS: morphine INJ 4 MG/ML 1 ML (VIAL/SYRINGE) IVP PRN ×5 (00:55→22:57)
[2016-03-27] MEDS: NS W/KCL 20 MEQ/L 1,000 ML IV SCH ×3 (02:33→22:58)
[2016-03-27] MEDS: oxyCODONE/APAP 10/325MG (PERCOCET 10) TABLET PO PRN ×2 (03:15→20:56)
[2016-03-27 04:00] VITALS: BP 121/82
[2016-03-27] MEDS: CATHETER FLUSH 10 ML SYR IV SCH ×3 (05:09→22:00)
[2016-03-27 06:24] LABS: BASOPHILS % (AUTO) 0 % (0-10); EOSINOPHILS % (AUTO) 0 % (0-10); LYMPHOCYTES # (AUTO) 1.7 X 10^3 (1.0-4.0); LYMPHOCYTES % (AUTO) 10 % (12-44); MEAN CORPUSCULAR HEMOGLOBIN 27 PG (25-34); MEAN CORPUSCULAR HGB CONC 32 G/DL (32-36); MEAN CORPUSCULAR VOLUME 84 FL (80-99); MEAN PLATELET VOLUME 9.9 FL (7.4-10.4); MONOCYTES # (AUTO) 1.4 X 10^3 (0.0-1.0); MONOCYTES % (AUTO) 8 % (0-12); NEUTROPHILS # (AUTO) 14.9 X 10^3 (1.8-7.8); NEUTROPHILS % (AUTO) 83 % (42-75); PLATELET COUNT 319 10^3/uL (130-400); RED BLOOD COUNT 4.58 10^6/uL (4.35-5.85); RED CELL DISTRIBUTION WIDTH 16.5 % (10.0-14.5)
[2016-03-27 06:57] LABS: ANISOCYTOSIS SLIGHT; BAND NEUTROPHILS 0 %; BASOPHILS % (MANUAL) 0 %; EOSINOPHILS % (MANUAL) 0 %; LYMPHOCYTES % (MANUAL) 8 %; NEUTROPHILS % (MANUAL) 88 %; REACTIVE LYMPHOCYTES 1 %
[2016-03-27 07:02] LABS: ALANINE AMINOTRANSFERASE 12 U/L (0-55); ALBUMIN 3.6 G/DL (3.2-4.5); ANION GAP 8 MMOL/L (5-14); ASPARTATE AMINO TRANSFERASE 18 U/L (5-34); BILIRUBIN,TOTAL 0.4 MG/DL (0.1-1.0); BLOOD UREA NITROGEN 22 MG/DL (7-18); BUN/CREATININE RATIO 30; CALCIUM 9.4 MG/DL (8.5-10.1); CARBON DIOXIDE 20 MMOL/L (21-32); CHLORIDE 108 MMOL/L (98-107); CREATININE SERUM 0.73 MG/DL (0.60-1.30); GFR ESTIMATED > 60; GLUCOSE 114 MG/DL (70-105); POTASSIUM 4.9 MMOL/L (3.6-5.0); SODIUM 136 MMOL/L (135-145); TOTAL PROTEIN 5.9 G/DL (6.4-8.2)
[2016-03-27] MEDS ORDERED: FLU TRIvalent (5 YOA+) 2016-17 (AFLURIA) 0.5 ML IM ONE (07:15)
[2016-03-27] MEDS ORDERED: LACTATED RINGERS 1,000 ML IV PRN (07:17)
[2016-03-27] MEDS ORDERED: fentaNYL INJECTION 100 MCG/2 ML AMP ONE (07:40)
[2016-03-27] MEDS ORDERED: proPOfol 200 MG/20 ML (DIPRIVAN) VIAL IV ONE (07:40)
[2016-03-27] MEDS ORDERED: MIDAZOLAM 2 MG/2 ML (VERSED) VIAL ONE (07:57)
[2016-03-27 08:00] VITALS: BP 162/109
[2016-03-27] MEDS: LACTATED RINGERS 1,000 ML IV SCH ×3 (08:02→23:47)
[2016-03-27] MEDS ORDERED: HYDROcodone/APAP 5 MG/325 MG (LORTAB) TAB PO PRN (08:15)
[2016-03-27] MEDS ORDERED: ceFAZolin 1,000 MG (ANCEF) VIAL ONE (08:16)
[2016-03-27] MEDS: ceFAZolin 2 GM/50 ML NS 50 ML IV SCH ×3 (08:20→23:46)
[2016-03-27] MEDS: ENOXAPARIN 40 MG/0.4 ML (LOVENOX) SYR SC SCH (08:22)
[2016-03-27] MEDS: FAMOTIDINE 20MG/2ML IV (PEPCID) IVP SCH ×2 (08:25→20:50)
[2016-03-27] MEDS ORDERED: GLYCOPYRROLATE 0.2 MG/ML (ROBINUL) 2 ML VIAL ONE (08:34)
[2016-03-27] MEDS ORDERED: ONDANSETRON 4 MG/2 ML (SDV) Z0FRAN ONE (08:34)
[2016-03-27] MEDS ORDERED: SEVOFLURANE (ULTANE) 15 ML INHAL SOLN ONE ×4 (08:34→09:15)
[2016-03-27] MEDS ORDERED: LACTATED RINGERS 2,000 ML IV ONE (08:34)
[2016-03-27] MEDS ORDERED: KETOROLAC 30 MG/ML VIAL ONE (08:34)
[2016-03-27] MEDS ORDERED: MEPERIDINE (DEMEROL) INJ 50 MG/ML ONE (08:38)
[2016-03-27] MEDS ORDERED: morphine INJ 10 MG/ML 1ML (SYR OR VIAL) ONE (08:38)
[2016-03-27] MEDS ORDERED: ONDANSETRON 4 MG/2 ML (SDV) Z0FRAN IV PRN (09:30)
--- NOTE | 2016-03-27 09:31 | Progress Note-Post Operative ---
Post-Operative Progess Note Expedition Supervisor Heri Paul PA-C Pre-Operative Diagnosis Right subtrochanteric femur fracture Post-Operative Diagnosis same Post-Op Procedure Note Date of Procedure: Mar 27, 2016 Name of Procedure: ORIF of right femur with long trochanteric femoral nail Procedure Note/Findings Reverse oblique type subtrochanteric femur fracture. Anesthesia Type General Estimated blood loss (mL): 100 ml Packing: none Specimen(s) collected none ARIS JONES MD Mar 27, 2016 09:31
[2016-03-27] MEDS: morphine INJ 10 MG/ML 1ML (SYR OR VIAL) IV PRN ×3 (09:40→09:52)
--- NOTE | 2016-03-27 10:31 | Diagnostic Imaging Report ---
CLINICAL INDICATION: Patient with right hip nailing in operating room. EXAM: There is a total of four limited spot intraoperative fluoroscopic images of the right hip and femur. COMPARISON: X-ray of the right hip dated 03/26/2016. FINDINGS AND IMPRESSION: There is interval placement of intramedullary nail internally fixing the proximal femoral intertrochanteric fracture which is now in anatomic alignment. Please see surgeon's report for more detail. Fluoroscopy was provided for surgeons and a total of 49 seconds of fluoroscopy was provided. Dictated by: Dictated on workstation # [id number]
[2016-03-27 11:00] VITALS: BP 86/50
[2016-03-27 13:08] LABS: BILIRUBIN,URINE NEGATIVE (NEGATIVE); KETONES,URINE NEGATIVE (NEGATIVE); LEUKOCYTE ESTERASE ,URINE 2+ (NEGATIVE); NITRITE,URINE NEGATIVE (NEGATIVE); PH,URINE 5 (5-9); PROTEIN,URINE 1+ (NEGATIVE); UROBILINOGEN,URINE NORMAL (NORMAL)
[2016-03-27 13:14] LABS: WBC,URINE 25-50 /HPF
--- NOTE | 2016-03-27 13:37 | History & Physical-Hospitalist ---
HPI History of Present Illness: HPI/Chief Complaint The patient is a 75-year-old white female known to me over many years and many contacts. She was admitted after she appeared at the emergency room by ambulance yesterday and was found to have a broken hip. She reports that the trouble began on 03/25 when she had an epidural block placed as an outpatient at the pain clinic by Dr. Tray Jacobs. She states that when she got home she was hemorrhaging from the site and went to the emergency room. Extensive workup followed and she was discharged to her home. She reports that she was up and walking in her home and felt lightheaded and tried to grab the table she missed and fell to the floor. She reports she was down for a period of time but when she became aware she noted pain in her right hip. Workup in the emergency room confirmed a fracture of the hip and she was admitted for operative repair Source: patient Exam Limitations: no limitations Date Seen 03/27/16 Attending Physician Nito Vanessa MD PCP Eliud Brewer DO Referring Physician Date of Admission Mar 26, 2016 at 17:06 Home Medications & Allergies Home Medications Reviewed patient Home Medication Reconciliation Form Allergies Coded Allergies: No Known Drug Allergies (Unverified , 06/10/15) Past Woroxbw-Nlwfrm-Vaxlqh Hx Patient Social History Alcohol Use: Denies Use Recreational Drug Use: No Smoking Status: Former Smoker Former smoker/When Quit: Sep 27, 1997 Type Used: Cigarettes Physical Abuse Screen: No Sexual Abuse: No Recent Foreign Travel: No Contact w/other who traveled: No Recent Hopitalizations: Yes (EPIDURAL YESTERDAY) Recent Infectious Disease Expo: No Immunizations Up To Date Tetanus Booster (TDap): Unknown Date of Pneumonia Vaccine: Apr 22, 2009 Date of Influenza Vaccine: Dec 21, 2014 Seasonal Allergies Seasonal Allergies: No Surgeries HX Surgeries: Yes (COLOSTOMY, KYPHOPLASTY; CARDIAC CATH WITH STENTS X 2; EGD/ COLONOSCOPIES ) Surgeries: Abdominal, Appendectomy, Bowel Surgery, Cardiac, Coronary Stent, Hysterectomy, Orthopedic, Tonsillectomy Respiratory Hx Respiratory Disorders: Yes Respiratory Disorders: Asthma, Pneumonia Cardiovascular Hx Cardiovascular Disorders: Yes (STENTS X2) Cardiac Disorders: Coronary Artery Disease, Deep Vein Thrombosis, Hypertension Neurological Hx Neurological Disorders: Yes Neurological Disorders: Vertigo 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 System Hx 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 Disorders: No Genitourinary Hx Genitourinary Disorders: Yes (INCONTINENCE) Genitourinary Disorders: UTI-Chronic Gastrointestinal Hx Gastrointestinal Disorders: Yes (COLOSTOMY; PARASTOMAL HERNIA) Gastrointestinal Disorders: Abdominal Hernia, Gastroesophageal Reflux, Diverticulosis, Esophagitis Musculoskeletal Hx Musculoskeletal Disorders: Yes (compression fracture status post kyphoplasty ) Musculoskeletal Disorders: Osteoporosis, Arthritis, Chronic Back Pain, Fractures Endocrine Hx Endocrine Disorders: Yes Endocrine Disorders: Hypothyroidsim HEENT HX ENT Disorders: Yes (FULL SET OF DENTURES) HEENT Disorders: Cataract Loss of Vision: Denies Hearing Impairment: Denies Cancer Hx Cancer: No Psychosocial Hx Psychiatric Problems: Yes Behavioral Health Disorders: Anxiety, Depression Integumentary HX Skin/Integumentary Disorder: No Blood Transfusions Hx Blood Disorders: Yes (DVT) Reviewed Nursing Assessment Reviewed/Agree w Nursing PMH: Yes Family Medical History Significant Family History: No Pertinent Family Hx Family Hx: Family history: Hypertension G8 BROTHER Myocardial infarction 19 MOTHER G8 BROTHER Review of Systems Constitutional: see HPI EENTM: no symptoms reported Respiratory: no symptoms reported Cardiovascular: no symptoms reported Gastrointestinal: no symptoms reported Genitourinary: no symptoms reported Musculoskeletal: see HPI back pain joint pain Skin: no symptoms reported Psychiatric/Neurological: No Symptoms Reported Physical Exam Physical Exam Vital Signs Vital Sign - Last 12Hours 03/26/16 03/26/16 15:25 18:00 Temp 97.9 Pulse 53 Resp 22 B/P 128/80 Pulse Ox 98 O2 Delivery Room Air O2 Flow Rate 1.50 Capillary Refill : Less Than 3 SecondsLess Than 3 Seconds General Appearance: No Apparent Distress WD/WN Eyes: Bilateral Eye Normal Inspection HEENT: Normal ENT Inspection Neck: Normal Inspection Respiratory: Chest Non Tender Lungs Clear Normal Breath Sounds No Accessory Muscle Use No Respiratory Distress Cardiovascular: Regular Rate, Rhythm No Edema No Gallop No JVD No Murmur Normal Peripheral Pulses Gastrointestinal: Normal Bowel Sounds No Organomegaly No Pulsatile Mass Non Tender Soft Back: Vertebral Tenderness Extremity: Normal Capillary Refill Normal Range of Motion Non Tender No Calf Tenderness No Pedal Edema Other (swelling and incision right hip) Neurologic/Psychiatric: Alert Oriented x3 No Motor/Sensory Deficits Normal Mood/Affect Results Results/Procedures Lab Laboratory Tests 03/26/16 15:18 2 05:37 Assessment/Plan Admission Diagnosis Acute intertrochanteric fracture right hip. 2.chronic back pain with previous vertebroplasty. 3.recent fall and bleeding post epidural pain block 2/3 Assessment and Plan Postop PT following operative repair right intertrochanteric hip fracture Clinical Quality Measures DVT/VTE Risk/Contraindication: Risk Factor Score Per Nursin RFS Level Per Nursing on Admit: 4+=Very High NITO VANESSA MD Mar 27, 2016 13:37
[2016-03-27 16:00] VITALS: BP 86/53
[2016-03-27 19:28] VITALS: BP 102/62
[2016-03-28] VITALS (12 sets, daily range): BP systolic 100–147; BP diastolic 22–92
[2016-03-28] MEDS: LACTATED RINGERS 1,000 ML IV SCH ×3 (01:45→07:51)
[2016-03-28] MEDS: NS W/KCL 20 MEQ/L 1,000 ML IV SCH (02:15)
[2016-03-28] MEDS: morphine INJ 4 MG/ML 1 ML (VIAL/SYRINGE) IVP PRN ×3 (04:29→18:11)
[2016-03-28 05:42] LABS: ALBUMIN 2.7 G/DL (3.2-4.5); BILIRUBIN,TOTAL 0.3 MG/DL (0.1-1.0); CALCIUM 8.6 MG/DL (8.5-10.1); CREATININE SERUM 0.93 MG/DL (0.60-1.30); POTASSIUM 4.9 MMOL/L (3.6-5.0); TOTAL PROTEIN 4.5 G/DL (6.4-8.2)
[2016-03-28] MEDS: CATHETER FLUSH 10 ML SYR IV SCH ×3 (06:00→21:00)
[2016-03-28] MEDS: morphine INJ 10 MG/ML 1ML (SYR OR VIAL) IV PRN (07:51)
[2016-03-28] MEDS ORDERED: NS IV 500 ML 500 ML IV SCH (07:52)
[2016-03-28] MEDS ORDERED: FUROSEMIDE 40 MG/4 ML INJ (LASIX) IVP NR (08:05)
--- NOTE | 2016-03-28 08:22 | Anesthesia-General Post-Op ---
General Patient Condition Mental Status/LOC: Same as Preop Cardiovascular: Satisfactory Nausea/Vomiting: Absent Respiratory: Satisfactory Pain: Controlled Complications: Absent Post Op Complications Complications None Follow Up Care/Instructions Patient Instructions None needed. Anesthesia/Patient Condition Patient Condition Patient is doing fair, stable vital signs, no apparent adverse anesthesia problems. She does complain of back pain and right hip pain after her fall/surgery and she seems to be confused. I discussed her pain and mental orientation with her RN (Jaime) and she states they are waiting on medical doctor to restart psych meds. Pain medicine to be given soon. LYNNE GONZALEZ CRNA Mar 28, 2016 08:22
[2016-03-28 08:39] LABS: BASOPHILS % (AUTO) 0 % (0-10); EOSINOPHILS # (AUTO) 0.1 10^3/uL (0.0-0.3); EOSINOPHILS % (AUTO) 1 % (0-10); LYMPHOCYTES # (AUTO) 2.1 X 10^3 (1.0-4.0); LYMPHOCYTES % (AUTO) 13 % (12-44); MEAN CORPUSCULAR HEMOGLOBIN 27 PG (25-34); MEAN CORPUSCULAR HGB CONC 32 G/DL (32-36); MEAN CORPUSCULAR VOLUME 85 FL (80-99); MEAN PLATELET VOLUME 10.2 FL (7.4-10.4); MONOCYTES # (AUTO) 0.9 X 10^3 (0.0-1.0); MONOCYTES % (AUTO) 6 % (0-12); NEUTROPHILS # (AUTO) 12.4 X 10^3 (1.8-7.8); NEUTROPHILS % (AUTO) 80 % (42-75); PLATELET COUNT 238 10^3/uL (130-400); RED BLOOD COUNT 2.94 10^6/uL (4.35-5.85); RED CELL DISTRIBUTION WIDTH 16.4 % (10.0-14.5); WHITE BLOOD COUNT 15.5 10^3/uL (4.3-11.0)
[2016-03-28 08:56] LABS: ALBUMIN 2.9 G/DL (3.2-4.5); BILIRUBIN,TOTAL 0.3 MG/DL (0.1-1.0); CALCIUM 8.8 MG/DL (8.5-10.1); CREATININE SERUM 0.93 MG/DL (0.60-1.30); TOTAL PROTEIN 4.8 G/DL (6.4-8.2)
[2016-03-28] MEDS ORDERED: LORA1TAB PO (09:11)
[2016-03-28] MEDS ORDERED: OXYC-465 PO (09:11)
[2016-03-28] MEDS ORDERED: TEMA30CA PO (09:11)
[2016-03-28] MEDS: FAMOTIDINE 20MG/2ML IV (PEPCID) IVP SCH (09:13)
--- NOTE | 2016-03-28 10:10 | Physical Therapy Evaluation ---
PT Evaluation-General Medical Diagnosis Admission Date Mar 26, 2016 at 17:06 Medical Diagnosis: right hip fracture Onset Date: Mar 26, 2016 Therapy Diagnosis Therapy Diagnosis: debility and weakness Height/Weight Height (Feet): 5 Height (Inches): 1.00 Weight (Pounds): 146 Weight (Ounces): 0.0 Precautions Precautions/Isolations: Fall Prevention, Pressure Ulcer Weight Bear Status Weight Bearing Restriction: Weight Bearing/Tolerated Location Restriction: R LE Referral Physician: Cristine Reason for Referral: Evaluation/Treatment Medical History Pertinent Medical History: Arthritis, CAD, COPD, GERD, HTN, Hypothroidism Additional Medical History syncopal episode resulting in fall and right hip facture; per patient, she was to have a colostomy reversal on this date in [place] Current History per patient, received spinal epidural, began to hemorrhage, returned to ED, went home and fell Reviewed History: Yes Social History Home: Apartment Current Living Status: Alone Entry Into Home: Level Entry Prior/Core FIM Prior Level of Function Functional [place] Measure 0=Not Assessed/NA 4=Minimal Assistance 1=Total Assistance 5=Supervision or Setup 2=Maximal Assistance 6=Modified [place] 3=Moderate Assistance 7=Complete [place] Bed Mobility: 6 Transfers (B,C,W/C) (FIM): 6 Gait: 6 PT Evaluation-Current Subjective Patient is very tearful and reports 10/10 right LE pain. Patient repeated multiple time, "I just want to ." This PT called [facility] for intervention. Pain Numeric Pain Scale: 10-Worst Possible Pain Location: Right Location Body Site: Thigh Pain Description: Acute Objective Patient Orientation: Person, Time, Situation Problem Solving: Poor Attachments: Oxygen, IV ROM/Strength ROM Lower Extremities right LE limited due to pain and resistance; left LE WFL Strenght Lower Extremities right LE 2+/5 knee flexion/extension; hip flexion NT due to pain; ankle dorsi/ plantarflexion 2+/5 left LE 3+/5 knee flexion/extension; hip flexion 3+/5; ankle dorsi/ plantarflexion 3+/5 Integumentary/Posture Integumentary refer to nursing notes Bowel Incontinence: No Bladder Incontinence: No Posture WNL Neuromuscular (Tone, Coordination, Reflexes) diminished coordination due to pain and decreased Hgb at 7.6 and to receive PRBC Sensory Vision: Wears Glasses Hearing: Impaired Sensation Right Lower Extremit: Intact Sensation Left Lower Extremity: Intact Transfers Functional [place] Measure 0=Not Assessed/NA 4=Minimal Assistance 1=Total Assistance 5=Supervision or Setup 2=Maximal Assistance 6=Modified [place] 3=Moderate Assistance 7=Complete [place] Transfers (B, C, W/C) (FIM): 1 Scootin Rollin Supine to/from Sit: 1 Sit to/from Stand: 1 bed t/f WC(FIM only if WC use): 1 dependent assist x 2 with all mobility Gait Mode of Locomotion: Walk Anticipated Mode of Locomotion: Walk Balance Sitting Static: Poor Sitting Dynamic: Poor Standing Static: Poor Standing Dynamic: Poor Treatment right LE AAROM in sit AP, LAQ 20 reps Assessment/Needs 75 y.o. female, will benefit from skilled PT to address functional strength and mobility to improve current LOF. From a PT stand point, patient will requires extended time to recovery due to recently treated back pain with an epidural. Rehab Potential: Fair PT Co Chairman Goals Co Chairman Goals PT Prison Goals Time Frame: Apr 11, 2016 Transfers (B,C,W/C) (FIM): 5 Gait (FIM): 2 Gait distance (FIM): 4=811-37 ft Distance: 100' Gait Level of Assist: 4 Gait Assistive Device: FWW (WBAT right LE) PT Plan Problem List Problem List: Activity Tolerance, Functional Strength, Safety, Balance, Gait, Transfer, Bed Mobility, ROM Treatment/Plan Treatment Plan: Continue Plan of Care Treatment Plan: Bed Mobility, Education, Functional Activity Jose, Functional Strength, Gait, Safety, Therapeutic Exercise, Transfers Treatment Duration: Apr 11, 2016 # of days/week 5-6 Visits Per Week: 10-11 Pt/Family Agrees w/Plan: Yes Safety Risks/Education Patient Education: Transfer Techniques, Safety Issues Teaching Recipient: Patient Teaching Methods: Demonstration, Discussion Response to Teaching: Verbalize Understanding, Return Demonstration Discharge Recommendations Therapy D/C Recommendations: Acute Rehab, [facility] (TCU/NH) Time/GCodes Time In: 905 Time Out: 930 Total Billed Treatment Time: 25 Total Billed Treatment 1 visit EVHighC 25 min ORTEGA MATIAS PT Mar 28, 2016 10:10
[2016-03-28] MEDS ORDERED: NITROGLYCERIN SUBLINGUAL 0.4 MG TAB (NITROSTAT) SL PRN (10:15)
[2016-03-28] MEDS: ENOXAPARIN 40 MG/0.4 ML (LOVENOX) SYR SC SCH (10:27)
--- NOTE | 2016-03-28 10:34 | Progress Note-Hospitalist ---
Progress Note HPI/CC on Admission The patient is a 75-year-old white female known to me over many years and many contacts. She was admitted after she appeared at the emergency room by ambulance yesterday and was found to have a broken hip. She reports that the trouble began on 03/25 when she had an epidural block placed as an outpatient at the pain clinic by Dr. Tray Jacobs. She states that when she got home she was hemorrhaging from the site and went to the emergency room. Extensive workup followed and she was discharged to her home. She reports that she was up and walking in her home and felt lightheaded and tried to grab the table she missed and fell to the floor. She reports she was down for a period of time but when she became aware she noted pain in her right hip. Workup in the emergency room confirmed a fracture of the hip and she was admitted for operative repair Progress Notes/Assess & Plan Date Seen 03/28/16 Diagonsis/Assessment & Plan Chart Review: No fever Vitals stable They called me regarding Hgb of 7.6 and confusion so ordered 2 units of blood placed SW consult and rehab eval. tufter operator: RN will hold Apurva Patient Interview: Pt states that she has not been receiving home medications and has not been sleeping well. Physical exam was stable. Pt denies having BMs. Pt states that she has a hernia and was scheduled to have a surgery today in [place]. Pt lives at home, but was previously in a nursing facility. 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 Martinez. YSABEL MARTINEZ DO Mar 28, 2016 10:34
[2016-03-28] MEDS ORDERED: LACTULOSE SYRUP 10GM/15ML (ENULOSE) 30ML UDC PO PRN (10:45)
[2016-03-28] MEDS ORDERED: ARTIFICAL TEARS 0.4 ML UNIT DOSE (REFRESH PLUS) OU PRN (11:00)
[2016-03-28] MEDS: DULoxetine 30 MG (CYMBALTA) CAP PO SCH (12:23)
[2016-03-28] MEDS: SUCRALFATE 1 GM (CARAFATE) TAB PO SCH ×3 (13:29→20:59)
--- NOTE | 2016-03-28 14:24 | Progress Note (SOAP) ---
Subjective Subjective/Events-last exam Post op day #1 from repair right subtrochanteric femur fracture. She is getting blood. She was slow to move with PT. Objective Exam Vital Signs Date Time Temp Pulse Resp B/P Pulse Ox O2 Delivery O2 Flow Rate FiO2 03/28/16 14:01 98.8 86 20 130/56 97 03/28/16 13:21 98.8 03/28/16 13:08 98.8 87 20 130/56 03/28/16 09:57 97.6 87 22 131/92 98 2.00 03/28/16 09:30 97.6 87 22 100/22 98 2.00 03/28/16 08:33 98.6 03/28/16 08:00 92 Room Air 03/28/16 07:51 98.6 03/28/16 04:00 98.6 83 22 120/63 95 Nasal Cannula 1.50 03/28/16 00:00 98.0 80 20 145/65 92 Nasal Cannula 1.50 03/27/16 20:10 92 Room Air 03/27/16 19:28 97.3 66 20 102/62 94 Nasal Cannula 1.50 03/27/16 16:00 97.0 70 18 86/53 92 Nasal Cannula 1.50 I & O 03/28/16 07:00 Intake Total 4040 ml Output Total 970 ml Balance 3070 ml Capillary Refill : Less Than 3 SecondsLess Than 3 Seconds General Appearance: No Apparent Distress Extremity: Normal Capillary Refill No Calf Tenderness Other (Moderate bloody drainage on surgical dressing. No active bleeding.) Neurologic/Psychiatric: Alert No Motor/Sensory Deficits Other (Slightly confused.) Results Lab Laboratory Tests 03/28/16 05:17: Alanine Aminotransferase (ALT/SGPT) 7, Albumin 2.7L, Alkaline Phosphatase 77, Anion Gap 9, Aspartate Amino Transf (AST/SGOT) 9, BUN/Creatinine Ratio 31, Blood Urea Nitrogen 29H, Calcium Level 8.6, Carbon Dioxide Level 19L, Chloride Level 106, Creatinine 0.93, Estimat Glomerular Filtration Rate 58, Glucose Level 127H, Hematocrit 24L, Hemoglobin 7.6#L, Potassium Level 4.9, Sodium Level 134L, Total Bilirubin 0.3, Total Protein 4.5L 03/28/16 08:29: Alanine Aminotransferase (ALT/SGPT) 6, Albumin 2.9L, Alkaline Phosphatase 85, Anion Gap 9, Aspartate Amino Transf (AST/SGOT) 10, BUN/Creatinine Ratio 30, Blood Urea Nitrogen 28H, Calcium Level 8.8, Carbon Dioxide Level 19L, Chloride Level 107, Creatinine 0.93, Estimat Glomerular Filtration Rate 58, Glucose Level 120H, Hematocrit 25L, Hemoglobin 8.0L, Potassium Level 5.0, Sodium Level 135, Total Bilirubin 0.3, Total Protein 4.8L, Basophils # (Auto) 0.0, Basophils (%) (Auto) 0, Eosinophils # (Auto) 0.1, Eosinophils (%) (Auto) 1, Lymphocytes # (Auto) 2.1, Lymphocytes (%) (Auto) 13, Mean Corpuscular Hemoglobin 27, Mean Corpuscular Hemoglobin Concent 32, Mean Corpuscular Volume 85, Mean Platelet Volume 10.2, Monocytes # (Auto) 0.9, Monocytes (%) (Auto) 6, Neutrophils # (Auto ) 12.4H, Neutrophils (%) (Auto) 80H, Platelet Count 238, Red Blood Count 2.94L, Red Cell Distribution Width 16.4H, White Blood Count 15.5H Microbiology 03/26/16 MRSA Screen - Final, Complete MRSA not isolated 03/27/16 Urine Culture - Preliminary, Resulted NO GROWTH Assessment/Plan Assessment/Plan Assess & Plan/Chief Complaint Right subtrochanteric femur fracture S/P ORIF right femur-- Getting blood. Hopefully she will do better with PT tomorrow. Daily dressing change. FDC or rehab for continued PT and OT. Diagnosis/Problems: Clinical Quality Measures DVT/VTE Risk/Contraindication: Risk Factor Score Per Nursin RFS Level Per Nursing on Admit: 4+=Very High ARIS JONES MD Mar 28, 2016 14:24
--- NOTE | 2016-03-28 14:42 | Physical Therapy Daily Note ---
PT Daily Note-Current Subjective Patient is in bed and agrees to PT. Pain Numeric Pain Scale: 8 Location: Right Location Body Site: Thigh Pain Description: Acute Mental Status Patient Orientation: Person, Time, Situation Attachments: IV Transfers Functional [place] Measure 0=Not Assessed/NA 4=Minimal Assistance 1=Total Assistance 5=Supervision or Setup 2=Maximal Assistance 6=Modified [place] 3=Moderate Assistance 7=Complete IndependenceIRFPAI Quality Coding Scale 6 Independent with activity with or without an assistive device 5 Patient requires set up or clean up by helper. Patient completes activity by themselves 4 Supervision or touching assist (CGA). [place] provide cues , steadying assist 3 The helper provides less than half the effort to complete the activity 2 The helper provides more than half the effort to complete the activity 1 Dependent. The helper does all the effort to complete an activity 7 Patient refused to complete or attempt activity 9 The patient did not perform the activity before the current illness or injury 88 Not attempted due to Medical conditions or safety concerns Transfers (B, C, W/C) (FIM): 1 Scootin Rollin Supine to/from Sit: 1 Sit to/from Stand: 1 Bed to/from Chair: 1 sit to stand and SPT x 2 sets with dependent assist x 2 with all mobility due to patient inability to weight bear on right LE due to pain Weight Bearing Weight Bearing Restriction: Weight Bearing/Tolerated Location Restriction: R LE Exercises Supine Ex: Ankle pumps, Heel Slides, Hip abd/add Supine Reps: 10 Seated Therapy Exercises: Ankle pumps, Long arc quads Seated Reps: 10 AAROM right LE Assessment Patient tolerated minimal activity this p.m. Patient states she wants to go to [facility] to continue care. PT to increase activity as tolerated by patient. PT Sheet Rock Taper Goals Intermediate Goals PT Sheet [place] Taper Goals Time Frame: Apr 11, 2016 Transfers (B,C,W/C) (FIM): 5 Gait (FIM): 2 Gait distance (FIM): 6=997-79 ft Distance: 100' Gait Level of Assist: 4 Gait Assistive Device: FWW (WBAT right LE) PT Plan Treatment/Plan Treatment Plan: Continue Plan of Care Treatment Plan: Bed Mobility, Education, Functional Activity Jose, Functional Strength, Gait, Safety, Therapeutic Exercise, Transfers Treatment Duration: Apr 11, 2016 Visits Per Week: 10-11 Discharge Recommendations Therapy D/C Recommendations: Jail (TCU/NH) Time/GCodes Time In: 1325 Time Out: 1348 Total Billed Treatment Time: 23 Total Billed Treatment 1 visit EX 10 min FA 13 min ORTEGA MATIAS PT Mar 28, 2016 14:42
--- NOTE | 2016-03-28 15:19 | Occ Therapy Progress Note ---
Therapy Progress Note OT order received. Attempted to treat pt. this afternoon. Pt. in bed receiving blood. Pt. very tearful. States that she is "sick." Pt. asked if she would like for this therapist to ask for nausea medication. Pt. states she isnt nauseated. States, "I have just been up too much. I am just sick." Pt. reports pain but wont state a pain level. Asked if she would like pain medication. States "I already had it." Pt. states multiple times, "I'm just so nervous and depressed." Pt. states that she won't eat because she does not have fixadent for her dentures. OT attempted to find some. This facility no longer carries it. Spoke with nurse tech. Nurse tech states that pt. has been refusing food due to pain. Encouraged pt. that she needs to try and eat, even if it is just something soft. Pt. verbalizes understanding but refuses to get back up at this time. States that she is getting blood in her neck. OT points out it is in her arm. States, "I'm just confused." Pt. made comfortable. Call light within reach. Will attempt back later or in a.m. 1519 1, visit no charge as therapist is declined. DUSTY OVIEDO OT Mar 28, 2016 15:19
[2016-03-28] MEDS: TEMAZEPAM 15 MG (RESTORIL) CAP PO SCH (20:58)
[2016-03-28] MEDS: oxyCODONE/APAP 10/325MG (PERCOCET 10) TABLET PO PRN (20:59)
[2016-03-28] MEDS ORDERED: NON-FORMULARY MEDICATION 1 EA EA (Omeprazole 40 MG) PO SCH (21:00)
[2016-03-28] MEDS: RT-ADVAIR HFA 115/21 MCG PER PUFF IH SCH (22:36)
[2016-03-29 00:35] VITALS: BP 109/71
[2016-03-29] MEDS: oxyCODONE/APAP 10/325MG (PERCOCET 10) TABLET PO PRN ×2 (03:38→11:19)
[2016-03-29] MEDS: LEVOTHYROXINE 100 MCG (LEVOTHROID) TAB PO SCH (05:59)
[2016-03-29] MEDS: CATHETER FLUSH 10 ML SYR IV SCH ×3 (05:59→21:39)
[2016-03-29 06:11] LABS: BASOPHILS % (AUTO) 0 % (0-10); EOSINOPHILS # (AUTO) 0.3 10^3/uL (0.0-0.3); EOSINOPHILS % (AUTO) 2 % (0-10); LYMPHOCYTES # (AUTO) 1.7 X 10^3 (1.0-4.0); LYMPHOCYTES % (AUTO) 13 % (12-44); MEAN CORPUSCULAR HEMOGLOBIN 28 PG (25-34); MEAN CORPUSCULAR HGB CONC 33 G/DL (32-36); MEAN CORPUSCULAR VOLUME 84 FL (80-99); MEAN PLATELET VOLUME 9.8 FL (7.4-10.4); MONOCYTES # (AUTO) 0.8 X 10^3 (0.0-1.0); MONOCYTES % (AUTO) 6 % (0-12); NEUTROPHILS # (AUTO) 9.6 X 10^3 (1.8-7.8); NEUTROPHILS % (AUTO) 78 % (42-75); PLATELET COUNT 201 10^3/uL (130-400); RED BLOOD COUNT 3.01 10^6/uL (4.35-5.85); RED CELL DISTRIBUTION WIDTH 15.4 % (10.0-14.5); WHITE BLOOD COUNT 12.3 10^3/uL (4.3-11.0)
[2016-03-29 06:36] LABS: ALANINE AMINOTRANSFERASE 6 U/L (0-55); ALBUMIN 2.6 G/DL (3.2-4.5); ANION GAP 5 MMOL/L (5-14); ASPARTATE AMINO TRANSFERASE 9 U/L (5-34); BILIRUBIN,TOTAL 0.7 MG/DL (0.1-1.0); BLOOD UREA NITROGEN 22 MG/DL (7-18); BUN/CREATININE RATIO 31; CALCIUM 8.7 MG/DL (8.5-10.1); CARBON DIOXIDE 25 MMOL/L (21-32); CHLORIDE 102 MMOL/L (98-107); CREATININE SERUM 0.72 MG/DL (0.60-1.30); GFR ESTIMATED > 60; GLUCOSE 123 MG/DL (70-105); POTASSIUM 4.5 MMOL/L (3.6-5.0); SODIUM 132 MMOL/L (135-145); TOTAL PROTEIN 4.4 G/DL (6.4-8.2)
[2016-03-29] MEDS: RT-ADVAIR HFA 115/21 MCG PER PUFF IH SCH ×2 (07:17→20:53)
[2016-03-29] MEDS: ASPIRIN E.C. 81 MG (ECOTRIN) TAB PO SCH (08:36)
[2016-03-29] MEDS: DULoxetine 30 MG (CYMBALTA) CAP PO SCH (08:36)
[2016-03-29] MEDS: fluCOnazole (DIFLUCAN) 100 MG TAB PO SCH (08:36)
[2016-03-29] MEDS: FAMOTIDINE 20 MG (PEPCID) TABLET PO SCH (08:36)
[2016-03-29] MEDS: SUCRALFATE 1 GM (CARAFATE) TAB PO SCH ×4 (08:37→21:38)
[2016-03-29] MEDS: CLOPIDOGREL 75 MG (PLAVIX) TABLET PO SCH (08:37)
[2016-03-29] MEDS: PANTOPRAZOLE 40 MG (PROTONIX) TAB PO SCH (08:37)
[2016-03-29] MEDS: meTOproloL SUCCINATE 50 MG (TOPROL XL) TAB PO SCH (08:37)
[2016-03-29] MEDS: eZETimibe 10 MG (ZETIA) TABLET PO SCH (08:37)
[2016-03-29] MEDS: morphine INJ 4 MG/ML 1 ML (VIAL/SYRINGE) IVP PRN ×2 (08:43→15:16)
[2016-03-29 08:44] VITALS: BP 145/86
--- NOTE | 2016-03-29 09:19 | Physical Therapy Daily Note ---
PT Daily Note-Current Subjective Patient is very agreeable to participate with PT. Patient is more alert on this date. Pain medication just issued by RN. Pain Numeric Pain Scale: 8 Location: Right Location Body Site: Hip Pain Description: Acute Mental Status Patient Orientation: Normal For Age Attachments: Oxygen Transfers Functional [place] Measure 0=Not Assessed/NA 4=Minimal Assistance 1=Total Assistance 5=Supervision or Setup 2=Maximal Assistance 6=Modified [place] 3=Moderate Assistance 7=Complete IndependenceIRFPAI Quality Coding Scale 6 Independent with activity with or without an assistive device 5 Patient requires set up or clean up by helper. Patient completes activity by themselves 4 Supervision or touching assist (CGA). [place] provide cues , steadying assist 3 The helper provides less than half the effort to complete the activity 2 The helper provides more than half the effort to complete the activity 1 Dependent. The helper does all the effort to complete an activity 7 Patient refused to complete or attempt activity 9 The patient did not perform the activity before the current illness or injury 88 Not attempted due to Medical conditions or safety concerns Transfers (B, C, W/C) (FIM): 3 Scootin Supine to/from Sit: 3 Sit to/from Stand: 3 Bed to/from Chair: 3 patient requires time to complete all functional tasks. Weight Bearing Weight Bearing Restriction: Weight Bearing/Tolerated Location Restriction: R LE Gait Training Gait (FIM): 1 Distance (FIM): 1=up to 49 ft Distance: 25' Gait Level of Assist: 3 Gait Persons Needed: 1 Gait Assistive Device: FWW slow and antalgic; patient displayed increase SOA with minimal activity and states she feels like she will "pass out" O2 2L NC in place Exercises Supine Ex: Ankle pumps, Quad Set, Heel Slides Supine Reps: 10 (AAROM right LE) Seated Therapy Exercises: Ankle pumps, Long arc quads Seated Reps: 10 (AAROM right LE) Assessment Patient is progressing with treatment, however, requires much time to complete all functional tasks. PT Shelter Goals District Plant Superintendent Goals PT Shelter Goals Time Frame: Apr 11, 2016 Transfers (B,C,W/C) (FIM): 5 Gait (FIM): 2 Gait distance (FIM): 5=526-78 ft Distance: 100' Gait Level of Assist: 4 Gait Assistive Device: FWW (WBAT right LE) PT Plan Treatment/Plan Treatment Plan: Continue Plan of Care Treatment Plan: Bed Mobility, Education, Functional Activity Jose, Functional Strength, Gait, Safety, Therapeutic Exercise, Transfers Treatment Duration: Apr 11, 2016 Visits Per Week: 10-11 Time/GCodes Time In: 845 Time Out: 910 Total Billed Treatment Time: 25 Total Billed Treatment 1 visit GT 10 min EX 15 min ORTEGA MATIAS PT Mar 29, 2016 09:19
--- NOTE | 2016-03-29 10:13 | Occupational Therapy Eval ---
OT Evaluation-General/PLF Medical Diagnosis Admission Date Mar 26, 2016 at 17:06 Medical Diagnosis: right hip fracture Onset Date: Mar 26, 2016 Therapy Diagnosis Therapy Diagnosis: Weakness, Decreased ADL skills Height/Weight Height (Feet): 5 Height (Inches): 1.00 Weight (Pounds): 146 Weight (Ounces): 0.0 Precautions Precautions/Isolations: Fall Prevention, Standard Precautions Safety Interventions: Reorient-PRN Weight Bear Status Weight Bearing Restriction: Weight Bearing/Tolerated Location Restriction: R LE Referral Physician: Cristine Referral Reason: Activity Tolerance, Self Care, Evaluation/Treatment, Strengthening/ROM Medical History Pertinent Medical History: Arthritis, CAD, COPD, GERD, HTN, Hypothroidism Additional Medical History DVT, anxiety, colostomy, kyphoplasty, cardiac cath with stents x 2, EGD, hysterectomy Current History Pt. fell at home. Pt. has caregiver that comes 5 days a week, from 6:30-3:00. They did her housework, cooked, and gave her a shower. Assisted her with dressing as well. Reviewed History: Yes Social History Home: Apartment Current Living Status: Alone Entry Into Home: Level Entry ADL-Prior Level of Function ADL PLOF Comments Please see current history above. Pt. has caregiver that assists her with daily tasks. DME/Equipment: Shower DME/Equipment Comments Pt. has a walker. Drive Self: No OT Current Status Subjective Pt. reports pain in right hip, but does not state a pain level. Appearance Pt. up in chair. Is agreeable to spongebathe up in chair. Pt. does not want OT to put legs into sitting position, however, agrees to it when it is necessary for pt. to bathe. Mental Status/Objective Patient Orientation: Confused Pt. is accurate at times with history, however, does demonstrate decreased memory at times. Current Glasses/Contacts: Yes Hearing Aids: No Dentures/Partials: Yes Hand Dominance: Right Upper Extremity ROM Pt. demonstrates bilateral UE ROM WFL. Upper Extremity Strength 3+/5 bilaterally. Pt. does note some soreness on right UE, and bruising on right Upper arm. ADL-Treatment Functional [place] Measure 0=Not Assessed/NA 4=Minimal Assistance 1=Total Assistance 5=Supervision or Setup 2=Maximal Assistance 6=Modified [place] 3=Moderate Assistance 7=Complete IndependenceIRFPAI Quality Coding Scale 6 Independent with activity with or without an assistive device 5 Patient requires set up or clean up by helper. Patient completes activity by themselves 4 Supervision or touching assist (CGA). [place] provide cues , steadying assist 3 The helper provides less than half the effort to complete the activity 2 The helper provides more than half the effort to complete the activity 1 Dependent. The helper does all the effort to complete an activity 7 Patient refused to complete or attempt activity 9 The patient did not perform the activity before the current illness or injury 88 Not attempted due to Medical conditions or safety concerns Bathing (FIM): 3 (Pt. is unable to reach her feet. Is able to wash front and rear kar area in chair by leaning side to side.) Lower Body Dressing (FIM): 2 Transfers (B, C, W/C) (FIM): 3 (Mod assist sit-stand.) Pt. agreed to spongebathe up in chair. Requires cues to sequence, as she would often wash the same parts over and over. Forgot that she had already washed or dried that particular part. Pt. pleasant but required encouragement. Did not want to stand or put feet down, but then unable to wash without doing these tasks. All needs met up in chair when session over. Education OT Patient Education: Correct positioning, Modified ADL techniques, Progress toward Goal/Update tx plan, Purpose of tx/functional activities, Reviewed precautions, Transfer techniques Teaching Recipient: Patient Teaching Methods: Demonstration, Discussion Response to Teaching: Verbalize Understanding, Return Demonstration OT Short Term Goals Short Term Goals Time Frame: Apr 05, 2016 Eating(FIM): 5 Grooming(FIM): 5 Bathing(FIM): 4 Upper Body Dressing(FIM): 4 Lower Body Dressing(FIM): 4 Toileting(FIM): 4 Transfers (B,C,W/C) (FIM): 5 Toilet/Commode Transfer(FIM): 5 Shower Transfer(FIM): 4 Additional Short Term Goals: 1-Demonstrate ADL Tasks, 2-Verbalize Understanding , 3-ImproveStrength/Jose 1=Demonstrate adherence to instructed precautions during ADL tasks. 2=Patient will verbalize/demonstrate understanding of assistive devices/ modifications for ADL. 3=Patient will improve strength/tolerance for activity to enable patient to perform ADL's. OT Group Home Goals Group Home Goals Time Frame: 2 weeks Eating (FIM): 6 Grooming(FIM): 6 Bathing(FIM): 4 Upper Body Dressing(FIM): 5 Lower Body Dressing(FIM): 4 Toileting(FIM): 6 Transfers (B,C,W/C) (FIM): 6 Toilet/Commode Transfer(FIM): 6 Shower Transfer(FIM): 5 Additional Goals: 1-Demonstrate ADL Tasks, 2-Verbalize Understanding, 3- ImproveStrength/Jose 1=Demonstrate adherence to instructed precautions during ADL tasks. 2=Patient will verbalize/demonstrate understanding of assistive devices/ modifications for ADL. 3=Patient will improve strength/tolerance for activity to enable patient to perform ADL's. OT Education/Plan Problem List/Assessment Assessment: Decreased Activ Tolerance, Decreased UE Strength, Impaired Bed Mobility, Impaired Cognition, Impaired Funct Balance, Impaired I ADL's, Impaired Self-Care Skills Discharge Recommendations Plan/Recommendations: Continue POC Therapy D/C Recommendations: 24 hr Supervision Equpiment Recommendations-D/C: Bath Chair, Hip Kit Treatment Plan/Plan of Care Treatment,Training & Education: Yes Patient would benefit from OT for education, treatment and training to promote independence in ADL's, mobility, safety and/or upper extremity function for ADL' s. Plan of Care: ADL Retraining, Functional Mobility, UE Funct Exercise/Act Treatment Duration: Apr 12, 2016 # of days/week 5-6 Visits Per Week: 5-6 Agreement: Yes Rehab Potential: Fair Time/GCodes Start Time: 09:10 Stop Time: 09:37 Total Time Billed (hr/min): 27 Billed Treatment Time 1, EVhighx 10 minutes, ADL x 17minutes DUSTY OVIEDO OT Mar 29, 2016 10:13
--- NOTE | 2016-03-29 10:57 | Progress Note-Hospitalist ---
Progress Note HPI/CC on Admission The patient is a 75-year-old white female known to me over many years and many contacts. She was admitted after she appeared at the emergency room by ambulance yesterday and was found to have a broken hip. She reports that the trouble began on 03/25 when she had an epidural block placed as an outpatient at the pain clinic by Dr. Tray Jacobs. She states that when she got home she was hemorrhaging from the site and went to the emergency room. Extensive workup followed and she was discharged to her home. She reports that she was up and walking in her home and felt lightheaded and tried to grab the table she missed and fell to the floor. She reports she was down for a period of time but when she became aware she noted pain in her right hip. 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 Patient Interview: Pt denies having BM, and has been taking Lactulose. Pt states that she has had some difficulty swallowing the large Carafate pills, and would like to switch to liquid. Physical exam stable. 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 Martinez. YSABEL MARTINEZ DO Mar 29, 2016 10:57
[2016-03-29] MEDS: LACTULOSE SYRUP 10GM/15ML (ENULOSE) 30ML UDC PO SCH ×4 (11:42→21:39)
--- NOTE | 2016-03-29 11:53 | Progress Note-Hospitalist ---
Progress Note HPI/CC on Admission The patient is a 75-year-old white female known to me over many years and many contacts. She was admitted after she appeared at the emergency room by ambulance yesterday and was found to have a broken hip. She reports that the trouble began on 03/25 when she had an epidural block placed as an outpatient at the pain clinic by Dr. Tray Jacobs. She states that when she got home she was hemorrhaging from the site and went to the emergency room. Extensive workup followed and she was discharged to her home. She reports that she was up and walking in her home and felt lightheaded and tried to grab the table she missed and fell to the floor. She reports she was down for a period of time but when she became aware she noted pain in her right hip. 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 Patient Interview: Pt denies having BM, and has been taking Lactulose. Pt states that she has had some difficulty swallowing the large Carafate pills, and would like to switch to liquid. Physical exam stable. 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 Martinez. YSABEL MARTINEZ DO Mar 29, 2016 11:53
[2016-03-29 12:00] VITALS: BP 137/83
--- NOTE | 2016-03-29 13:18 | Progress Note (SOAP) ---
Subjective Subjective/Events-last exam Right Hip fracture. Patient dong well and is expected to go the swing bed tomorrow. Objective Exam Vital Signs Date Time Temp Pulse Resp B/P Pulse Ox O2 Delivery O2 Flow Rate FiO2 03/29/16 12:00 97.5 75 16 137/83 95 Nasal Cannula 1.00 1.00 03/29/16 08:44 97.7 121 20 145/86 99 Room Air 03/29/16 08:00 99 Nasal Cannula 1.00 03/29/16 07:17 87 1.00 03/29/16 00:35 98.8 106 18 109/71 96 Nasal Cannula 1.50 1.50 03/28/16 22:36 92 03/28/16 19:23 98.8 104 20 134/76 97 Room Air 1.50 03/28/16 18:11 98.8 03/28/16 16:48 98.8 20 128/66 98 03/28/16 16:45 98.8 88 20 130/58 98 03/28/16 16:19 98.9 98 20 129/67 94 Room Air 1.50 03/28/16 14:01 98.8 86 20 130/56 97 03/28/16 13:21 98.8 I & O 03/29/16 07:00 Intake Total 1810 ml Output Total 950 ml Balance 860 ml Capillary Refill : Less Than 3 SecondsLess Than 3 Seconds General Appearance: No Apparent Distress WD/WN Neck: Full Range of Motion Peripheral Pulses: 3+ Dorsalis Pedis (R) Extremity: Normal Capillary Refill Normal Inspection Normal Range of Motion Non Tender Skin: Normal Color Warm/Dry Other comments Dressing dry clean and intact. Results Lab Laboratory Tests 03/29/16 06:05: Alanine Aminotransferase (ALT/SGPT) 6, Albumin 2.6L, Alkaline Phosphatase 64, Anion Gap 5, Aspartate Amino Transf (AST/SGOT) 9, BUN/Creatinine Ratio 31, Basophils # (Auto) 0.0, Basophils (%) (Auto) 0, Blood Urea Nitrogen 22H, Calcium Level 8.7, Carbon Dioxide Level 25, Chloride Level 102, Creatinine 0.72 , Eosinophils # (Auto) 0.3, Eosinophils (%) (Auto) 2, Estimat Glomerular Filtration Rate > 60, Glucose Level 123H, Hematocrit 25L, Hemoglobin 8.4L, Lymphocytes # (Auto) 1.7, Lymphocytes (%) (Auto) 13, Mean Corpuscular Hemoglobin 28, Mean Corpuscular Hemoglobin Concent 33, Mean Corpuscular Volume 84, Mean Platelet Volume 9.8, Monocytes # (Auto) 0.8, Monocytes (%) (Auto) 6, Neutrophils # (Auto) 9.6H, Neutrophils (%) (Auto) 78H, Platelet Count 201, Potassium Level 4.5, Red Blood Count 3.01L, Red Cell Distribution Width 15.4H, Sodium Level 132L, Total Bilirubin 0.7, Total Protein 4.4L, White Blood Count 12.3H 03/29/16 12:56: Lab Scanned Report Transfusion Reaction Form Microbiology 03/26/16 MRSA Screen - Final, Complete MRSA not isolated 03/27/16 Urine Culture - Preliminary, Resulted NO GROWTH Assessment/Plan Assessment/Plan Assess & Plan/Chief Complaint Right hip fracture with ORIF TFN Patient is scheduled to go to 2 nd floor tomorrow and that is fine. She needs to follow up with Dr. [place]ung[place] in [place] is 2 -3 weeks for x-rays. Diagnosis/Problems: Clinical Quality Measures DVT/VTE Risk/Contraindication: Risk Factor Score Per Nursin RFS Level Per Nursing on Admit: 4+=Very High ANDRADE TIERNEY Mar 29, 2016 13:18
--- NOTE | 2016-03-29 14:46 | Physical Therapy Daily Note ---
PT Daily Note-Current Subjective Patient is in bed and agrees to PT. Pain Numeric Pain Scale: 8 Location: Right Location Body Site: Hip Pain Description: Acute Mental Status Patient Orientation: Normal For Age Transfers Functional [place] Measure 0=Not Assessed/NA 4=Minimal Assistance 1=Total Assistance 5=Supervision or Setup 2=Maximal Assistance 6=Modified [place] 3=Moderate Assistance 7=Complete IndependenceIRFPAI Quality Coding Scale 6 Independent with activity with or without an assistive device 5 Patient requires set up or clean up by helper. Patient completes activity by themselves 4 Supervision or touching assist (CGA). [place] provide cues , steadying assist 3 The helper provides less than half the effort to complete the activity 2 The helper provides more than half the effort to complete the activity 1 Dependent. The helper does all the effort to complete an activity 7 Patient refused to complete or attempt activity 9 The patient did not perform the activity before the current illness or injury 88 Not attempted due to Medical conditions or safety concerns Transfers (B, C, W/C) (FIM): 3 Scootin Rollin Supine to/from Sit: 3 Sit to/from Stand: 4 Patient incontinent urine requiring assistance to cleanse Weight Bearing Weight Bearing Restriction: Weight Bearing/Tolerated Location Restriction: R LE Gait Training Gait (FIM): 2 Distance (FIM): 6=115-99 ft Distance: 75' Gait Level of Assist: 4 Gait Persons Needed: 1 Gait Assistive Device: FWW reciprocal pattern Exercises Supine Ex: Ankle pumps, Quad Set, Heel Slides Supine Reps: 15 Seated Therapy Exercises: Ankle pumps, Long arc quads Seated Reps: 15 Assessment Patient improving with treatment. Plan to transfer to ARU this week for continued care. Patient stated after treatment, "I will probably go to the senior living after I get done downstairs." PT Short Term Goals Short Term Goals Transfers (B,C,W/C) (FIM): 5 PT Prison Goals [place] Goals PT Prison Goals Time Frame: Apr 11, 2016 Transfers (B,C,W/C) (FIM): 5 Gait (FIM): 2 Gait distance (FIM): 9=485-88 ft Distance: 100' Gait Level of Assist: 4 Gait Assistive Device: FWW (WBAT right LE) PT Plan Treatment/Plan Treatment Plan: Continue Plan of Care Treatment Plan: Bed Mobility, Education, Functional Activity Jose, Functional Strength, Gait, Safety, Therapeutic Exercise, Transfers Treatment Duration: Apr 11, 2016 Visits Per Week: 10-11 Time/GCodes Time In: 1400 Time Out: 1423 Total Billed Treatment Time: 23 Total Billed Treatment 1 visit EX 10 min GT 13 min ORTEGA MATIAS PT Mar 29, 2016 14:46
[2016-03-29] MEDS ORDERED: LORazepam 0.5 MG (ATIVAN) TABLET ONE (15:12)
[2016-03-29 15:31] VITALS: BP 147/72
[2016-03-29] MEDS: TEMAZEPAM 15 MG (RESTORIL) CAP PO SCH (21:38)
[2016-03-29] MEDS: LORazepam 1 MG (ATIVAN) TAB PO SCH (21:46)
[2016-03-30 00:32] VITALS: BP 108/76
[2016-03-30] MEDS: oxyCODONE/APAP 10/325MG (PERCOCET 10) TABLET PO PRN (01:58)
[2016-03-30 05:35] LABS: BASOPHILS % (AUTO) 0 % (0-10); EOSINOPHILS # (AUTO) 0.1 10^3/uL (0.0-0.3); EOSINOPHILS % (AUTO) 1 % (0-10); LYMPHOCYTES # (AUTO) 1.7 X 10^3 (1.0-4.0); LYMPHOCYTES % (AUTO) 14 % (12-44); MEAN CORPUSCULAR HEMOGLOBIN 27 PG (25-34); MEAN CORPUSCULAR HGB CONC 32 G/DL (32-36); MEAN CORPUSCULAR VOLUME 86 FL (80-99); MEAN PLATELET VOLUME 10.5 FL (7.4-10.4); MONOCYTES # (AUTO) 0.7 X 10^3 (0.0-1.0); MONOCYTES % (AUTO) 6 % (0-12); NEUTROPHILS # (AUTO) 9.7 X 10^3 (1.8-7.8); NEUTROPHILS % (AUTO) 79 % (42-75); PLATELET COUNT 239 10^3/uL (130-400); RED BLOOD COUNT 2.92 10^6/uL (4.35-5.85); RED CELL DISTRIBUTION WIDTH 15.8 % (10.0-14.5); WHITE BLOOD COUNT 12.3 10^3/uL (4.3-11.0)
[2016-03-30 06:01] LABS: ALANINE AMINOTRANSFERASE 6 U/L (0-55); ALBUMIN 2.7 G/DL (3.2-4.5); ANION GAP 7 MMOL/L (5-14); ASPARTATE AMINO TRANSFERASE 11 U/L (5-34); BILIRUBIN,TOTAL 0.6 MG/DL (0.1-1.0); BLOOD UREA NITROGEN 20 MG/DL (7-18); BUN/CREATININE RATIO 28; CALCIUM 8.6 MG/DL (8.5-10.1); CARBON DIOXIDE 23 MMOL/L (21-32); CHLORIDE 105 MMOL/L (98-107); CREATININE SERUM 0.72 MG/DL (0.60-1.30); GFR ESTIMATED > 60; GLUCOSE 151 MG/DL (70-105); POTASSIUM 4.4 MMOL/L (3.6-5.0); SODIUM 135 MMOL/L (135-145); TOTAL PROTEIN 4.7 G/DL (6.4-8.2)
[2016-03-30] MEDS: LEVOTHYROXINE 100 MCG (LEVOTHROID) TAB PO SCH (06:41)
[2016-03-30] MEDS: CATHETER FLUSH 10 ML SYR IV SCH (06:43)
[2016-03-30] MEDS: SUCRALFATE 1 GM (CARAFATE) TAB PO SCH (06:43)
[2016-03-30 07:40] VITALS: BP 138/85
[2016-03-30] MEDS: RT-ADVAIR HFA 115/21 MCG PER PUFF IH SCH (08:03)
[2016-03-30] MEDS ORDERED: TRAM50TA2 PO (08:39)
[2016-03-30] MEDS ORDERED: LACT20SO2 PO (08:39)
--- NOTE | 2016-03-30 08:41 | Discharge Summary-Hospitalist ---
Diagnosis/Chief Complaint Date of Admission Mar 26, 2016 at 17:06 Date of Discharge Discharge Date: Mar 30, 2016 Admission Diagnosis Acute intertrochanteric fracture right hip. 2.chronic back pain with previous vertebroplasty. 3.recent fall and bleeding post epidural pain block / Discharge Diagnosis Acute intertrochanteric fracture right hip. 2.chronic back pain with previous vertebroplasty. 3.recent fall and bleeding post epidural pain block 2/ 4. Diverting colostomy in need of takedown 5. Severe anemia s/p 2 units of blood and iron infusions 6. 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 Patient Interview: Pt denies having BM, and has been taking Lactulose. Pt states that she has had some difficulty swallowing the large Carafate pills, and would like to switch to liquid. Physical exam stable. 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 Abreu. Reason Hospital Visit/Course The patient is a 75-year-old white female known to me over many years and many contacts. She was admitted after she appeared at the emergency room by ambulance yesterday and was found to have a broken hip. She reports that the trouble began on 03/25 when she had an epidural block placed as an outpatient at the pain clinic by Dr. Tray Jacobs. She states that when she got home she was hemorrhaging from the site and went to the emergency room. Extensive workup followed and she was discharged to her home. She reports that she was up and walking in her home and felt lightheaded and tried to grab the table she missed and fell to the floor. She reports she was down for a period of time but when she became aware she noted pain in her right hip. 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 Patient Interview: Pt confirms that she has had BM. Dr. Abreu discusses moving to in-pt rehab. Pt agrees with this plan. Physical exam stable. AFVSS, Pleasant, oriented 3, no acute distress, much improved Regular rate and rhythm, clear to auscultation bilaterally Colostomy in place with stool liquid in the bag No edema Plan: Pt will move to in-pt rehab without Lovenox Scribed by Venkata Flower under the direct supervision of Dr. Abreu. Hospital course: Patient had an uneventful hospital course she was admitted to the hospital after sustaining a hip fracture after a fall at the nursing facility. She has multiple falls in the past with compression fractures as a result and has had multiple kyphoplasty's. She was in the process of Dr Yusuf perform a colostomy takedown but then the fall occurred. She did require 2 units of packed red blood cells to the severity of her anemia likely due to poor reserve initially but overall she improved and was able to dissipate in therapy and the were no other complications during the hospital course so she was deemed stable for inpatient rehabilitation. Discharge Summary Discharge Physical Examination Allergies: Coded Allergies: No Known Drug Allergies (Unverified , 06/10/15) Vitals & I&Os Vital Signs Date Time Temp Pulse Resp B/P Pulse Ox O2 Delivery O2 Flow Rate FiO2 03/30/16 10:15 91 18 138/85 94 03/30/16 07:40 98.8 Room Air 03/29/16 15:31 2.00 Hospital Course Labs (last 24 hrs) Laboratory Tests 03/29/16 12:56: Lab Scanned Report Transfusion Reaction Form 03/30/16 05:25: Alanine Aminotransferase (ALT/SGPT) 6, Albumin 2.7L, Alkaline Phosphatase 85, Anion Gap 7, Aspartate Amino Transf (AST/SGOT) 11, BUN/Creatinine Ratio 28, Basophils # (Auto) 0.0, Basophils (%) (Auto) 0, Blood Urea Nitrogen 20H, Calcium Level 8.6, Carbon Dioxide Level 23, Chloride Level 105, Creatinine 0.72 , Eosinophils # (Auto) 0.1, Eosinophils (%) (Auto) 1, Estimat Glomerular Filtration Rate > 60, Glucose Level 151H, Hematocrit 25L, Hemoglobin 8.0L, Lymphocytes # (Auto) 1.7, Lymphocytes (%) (Auto) 14, Mean Corpuscular Hemoglobin 27, Mean Corpuscular Hemoglobin Concent 32, Mean Corpuscular Volume 86, Mean Platelet Volume 10.5H, Monocytes # (Auto) 0.7, Monocytes (%) (Auto) 6, Neutrophils # (Auto) 9.7H, Neutrophils (%) (Auto) 79H, Platelet Count 239, Potassium Level 4.4, Red Blood Count 2.92L, Red Cell Distribution Width 15.8H, Sodium Level 135, Total Bilirubin 0.6, Total Protein 4.7L, White Blood Count 12.3H Microbiology 03/26/16 MRSA Screen - Final, Complete MRSA not isolated 03/27/16 Urine Culture - Final, Complete NO GROWTH Pending Labs Laboratory Tests 03/30/16 05:25: Alanine Aminotransferase (ALT/SGPT) 6, Albumin 2.7, Alkaline Phosphatase 85, Anion Gap 7, Aspartate Amino Transf (AST/SGOT) 11, BUN/Creatinine Ratio 28, Basophils # (Auto) 0.0, Basophils (%) (Auto) 0, Blood Urea Nitrogen 20, Calcium Level 8.6, Carbon Dioxide Level 23, Chloride Level 105, Creatinine 0.72, Eosinophils # (Auto) 0.1, Eosinophils (%) (Auto) 1, Estimat Glomerular Filtration Rate > 60, Glucose Level 151, Hematocrit 25, Hemoglobin 8.0, Lymphocytes # (Auto) 1.7, Lymphocytes (%) (Auto) 14, Mean Corpuscular Hemoglobin 27, Mean Corpuscular Hemoglobin Concent 32, Mean Corpuscular Volume 86, Mean Platelet Volume 10.5, Monocytes # (Auto) 0.7, Monocytes (%) (Auto) 6, Neutrophils # (Auto) 9.7, Neutrophils (%) (Auto) 79, Platelet Count 239, Potassium Level 4.4, Red Blood Count 2.92, Red Cell Distribution Width 15.8, Sodium Level 135, Total Bilirubin 0.6, Total Protein 4.7, White Blood Count 12.3 Discharge Home Medications: Active Scripts Active Lactulose 20 Gm/30 Ml Solution 30 Gm PO QID Tramadol HCl 50 Mg Tablet 50 Mg PO Q4H PRN Reported Lorazepam 1 Mg Tablet 1 Mg PO BID Oxycodone-Acetaminophen 10-325 (Oxycodone HCl/Acetaminophen) 1 Each Tablet 1 Tab PO Q6H PRN Temazepam 30 Mg Capsule 30 Mg PO HS Pantoprazole Sodium 40 Mg Tablet.dr 40 Mg PO DAILY Carafate (Sucralfate) 1 Gm/10 Ml Oral.susp 10 Ml PO QID Gabapentin 300 Mg Capsule 900 Mg PO BID TAKES 3 (300MG) CAPSULES Restasis (Cyclosporine) 1 Each Droperette 1 Drop OU BID LAST FILLED 07-16-15 Symbicort 160-4.5 Mcg Inhaler (Budesonide/Formoterol Fumarate) 10.2 Gm Hfa.aer.ad 2 Puff INH BID Clopidogrel (Clopidogrel Bisulfate) 75 Mg Tablet 75 Mg PO DAILY LAST FILLED 12-08-15 #30 Nitrostat (Nitroglycerin) 0.4 Mg Tab.subl 0.4 Mg SL UD PRN Levothyroxine Sodium 100 Mcg Tablet 100 Mcg PO 0630 Metoprolol Succinate 50 Mg Tab.er.24h 50 Mg PO DAILY Ropinirole HCl 4 Mg Tablet 8 Mg PO HS TAKES 2 (4MG) TABLETS Duloxetine HCl 60 Mg Capsule.dr 60 Mg PO DAILY Zetia (Ezetimibe) 10 Mg Tablet 10 Mg PO DAILY Aspirin Ec 81 Mg (Aspirin) 81 Mg Tabec 81 Mg PO DAILY Instructions to patient/family Please see electonic discharge instructions given to patient. Clinical Quality Measures DVT/VTE Risk/Contraindication: Risk Factor Score Per Nursin RFS Level Per Nursing on Admit: 4+=Very High YSABEL ABREU DO Mar 30, 2016 08:41
[2016-03-30] MEDS: LACTULOSE SYRUP 10GM/15ML (ENULOSE) 30ML UDC PO SCH (09:11)
[2016-03-30] MEDS: FAMOTIDINE 20 MG (PEPCID) TABLET PO SCH (09:12)
[2016-03-30] MEDS: DULoxetine 30 MG (CYMBALTA) CAP PO SCH (09:12)
[2016-03-30] MEDS: LORazepam 1 MG (ATIVAN) TAB PO SCH (09:12)
[2016-03-30] MEDS: PANTOPRAZOLE 40 MG (PROTONIX) TAB PO SCH (09:12)
[2016-03-30] MEDS: ASPIRIN E.C. 81 MG (ECOTRIN) TAB PO SCH (09:12)
[2016-03-30] MEDS: meTOproloL SUCCINATE 50 MG (TOPROL XL) TAB PO SCH (09:12)
[2016-03-30] MEDS: CLOPIDOGREL 75 MG (PLAVIX) TABLET PO SCH (09:12)
[2016-03-30] MEDS: fluCOnazole (DIFLUCAN) 100 MG TAB PO SCH (09:12)
[2016-03-30] MEDS: eZETimibe 10 MG (ZETIA) TABLET PO SCH (09:12)
[2016-03-30 10:15] VITALS: BP 138/85
[2016-04-06] MEDS ORDERED: ROPI1TAB2 PO (10:17)
--- NOTE | 2016-04-12 07:28 | OPERATIVE REPORT ---
PROCEDURE PHYSICIAN: ARIS COLUNGA DATE OF PROCEDURE: 03/27/2016 PREOPERATIVE DIAGNOSIS: Right subtrochanteric femoral fracture. POSTOPERATIVE DIAGNOSIS: Right subtrochanteric femoral fracture. PROCEDURE: Open reduction internal fixation, right femur with trochanteric femoral nail. SURGEON: Dr. Colunga ASSISTING: CHANA Mott. SERVER CASHIER SURGEON DUTIES: Patient positioning, retraction, wound closure, use of internal fixation devices, application sterile dressings. Use of respiratory assistant to surgeon is medically indicated. ANESTHESIA: General. IMPLANTS: Synthes long trochanteric femoral nail. COMPLICATIONS: None. BLOOD LOSS: 100 mL. INDICATIONS: This lady fell yesterday and fractured her right femur. She comes to the surgery for surgical stabilization. PROCEDURE IN DETAIL: After informed consent, the patient was transported to the operating room. She was placed under general anesthetic and positioned supine on the fracture table with the pubis against the peroneal post. The left leg in the leg guevara, the right foot in the traction boot and longitudinal traction was applied. The C-arm was brought in. The fracture was manipulated and was well reduced with just traction. The right lower extremity was prepped with DuraPrep and draped in the sterile fashion. A clear shower curtain type drape was utilized so the C-arm could be brought in from the opposite side. A starting incision was made over the right lateral hip, over the hip abductors, the fascia was split. The greater trochanter was palpated a guidepin was drilled into the greater trochanter and down the femoral shaft under C-arm guidance. The rigid reamer was then utilized and flexible guidewire was placed. The canal was reamed to 12. The chasity diameter was 11 mm. A 360 mm chasity was chosen. It was placed on the insertion device and inserted over the flexible guidewire past the fracture site the appropriate depth under C-arm guidance. Next, a second lateral incision was made at the aiming arm and drill sleeves were placed for the helical blades and were tightened down to the bone. The guide pin then was placed in the center of the femoral head on the AP and lateral views, the lateral cortex reamer was used and then a helical blade was impacted in the femoral head for a good fit. The guidepin was removed. The proximal locking screw was locked down tightly to the helical blade. The insertion device was removed. C-arm images confirmed satisfactory placement. Next, lateral view was made in the distal femur and through a separate a distal incision, 2 distal locking screws were placed under C-arm guidance. Hardcopy C-arm images were saved to the PACS system showing satisfactory reduction. The wounds were irrigated and closed with a running and interrupted number 1 Vicryl for the fascia, running 2-0 Vicryl for subcutaneous tissues and elli on the skin. Sterile dressing was applied. She was taken to the recovery room in stable condition having tolerated this procedure well. Job ID: [id number] Dictated Date: 03/27/2016 09:36:13 Grounds And Nursery Specialist Date: 03/28/2016 13:48:09 / tamika <Dictated by ARIS COLUNGA MD> <Electronically signed by ARIS COLUNGA MD> 03/28/16 [id number]
== END 2016-03-30 10:45 | DRG 481 ==
LOC: EDUNIT# 15:06 → ER 15:07 → 4TH 17:06
PROVIDERS: ADMIT Internal Medicine; ATTEND Internal Medicine
PROC: 0QS606Z Reposition Right Upper Femur with Intramedullary Internal Fixation Device, Open Approach (ICD-10-PCS; principal; 2016-03-26)
DX: M80.051A Age-related osteoporosis with current pathological fracture, right femur, initial encounter for fracture (principal); R55 Syncope and collapse; D62 Acute posthemorrhagic anemia; M54.9 Dorsalgia, unspecified; R13.10 Dysphagia, unspecified; J44.9 Chronic obstructive pulmonary disease, unspecified; J45.909 Unspecified asthma, uncomplicated; I25.10 Atherosclerotic heart disease of native coronary artery without angina pectoris; G47.30 Sleep apnea, unspecified; K43.5 Parastomal hernia without obstruction or gangrene; I10 Essential (primary) hypertension; E03.9 Hypothyroidism, unspecified; K21.9 Gastro-esophageal reflux disease without esophagitis; R42 Dizziness and giddiness; M19.91 Primary osteoarthritis, unspecified site; F41.9 Anxiety disorder, unspecified; F32.9 Major depressive disorder, single episode, unspecified; G47.00 Insomnia, unspecified; Z93.3 Colostomy status; Z86.718 Personal history of other venous thrombosis and embolism; Z95.5 Presence of coronary angioplasty implant and graft; Z87.891 Personal history of nicotine dependence; Z91.81 History of falling; Z23 Encounter for immunization
CPT/HCPCS: 36415; 51702; 62323; 70450; 71010; 72148; 72170; 73502; 76937; 80048; 80053; 81000; 83735; 84484; 85007; 85014; 85018; 85025; 85027; 86850; 86900; 86901; 86920; 87081; 87088; 87186; 93005; 93041; 94640; 94664; 94760; 96361; 96365; 96374; 96375

== ENCOUNTER 2016-03-30 09:17 | Inpatient (IN) | payer MEDICARE, MEDICAID ==
[~2016-03-30] VITALS: Ht 154.9 cm; Wt 64.4 kg
[~2016-03-30 09:17] MED LIST changes: +LACT20SO2 PO
--- OUTSIDE RECORDS SUMMARY | 2016-03-30 11:04 | XMS REPORT | Continuity of Care Document ---
Author Author [facility] Organization [facility] Address Unknown Phone Unavailable Care Team Providers Care Mechanical Design Technician Name Role Phone Roro Brewer III PCP [phone] Source Comments Some departments are not documenting in the electronic medical record. If you do not see the information that you expected, contact Release of Information in the Health Information Management department at [phone] for further assistance in locating additional records.[facility] Active Allergies and Adverse Reactions Allergen [...] emulsion needed. fluticasone (FLONASE) 50 Apply 1 [place] to each Active mcg/actuation nasal spray nostril [...] (coronary artery disease) 06/03/2009 Overview: Hx of SD 4 yrs ago Depression 06/03/2009 Arthritis 06/03/2009 [...]
[2016-03-30] MEDS ORDERED: NITROGLYCERIN SUBLINGUAL 0.4 MG TAB (NITROSTAT) SL PRN (11:15)
[2016-03-30 11:16] VITALS: BP 149/82
[2016-03-30] MEDS ORDERED: CATHETER FLUSH 10 ML SYR IV PRN (11:30)
--- NOTE | 2016-03-30 13:01 | Occupational Therapy Eval ---
OT Evaluation-General/PLF Medical Diagnosis Admission Date Mar 30, 2016 at 10:50 Medical Diagnosis: R hip fracture Onset Date: Mar 26, 2016 Therapy Diagnosis Therapy Diagnosis: weakness, decr self care, decr ADL, decr functional mobility , decr act sravanthi Height/Weight Height (Feet): 5 Height (Inches): 1.00 Weight (Pounds): 146 Weight (Ounces): 0.0 Precautions Precautions/Isolations: Fall Prevention, Standard Precautions, Pressure Ulcer Weight Bear Status Weight Bearing Restriction: Weight Bearing/Tolerated Location Restriction: R LE Referral Physician: Lorne Referral Reason: Evaluation/Treatment Medical History Pertinent Medical History: Arthritis, CAD, COPD, GERD, HTN, Hypothroidism Additional Medical History DVT, anxiety, colostomy, kyphoplasty, cardiac cath with stents x 2, EGD, hysterectomy. Stay on IRF inn [id number] for pain. Current History Pt fell at home. She has caregivers that come 5 times a week, from 6:30 am to 3 pm and they help with housework, cooking, and bathing/dressing. Social History Home: Apartment ([facility] Current Living Status: Alone Entry Into Home: Level Entry ADL-Prior Level of Function ADL PLOF Comments Pt was incomplete historian on prior functional status. Caregiver reportedly helped her with dressing and bathing, housework and cooking. She was unable to state if she used a FWW or 4WW to get around at home. DME/Equipment: Grab Bars, Shower OT Current Status Subjective Pt seen in room, up in bed, reluctantly agrees to OT. Pain reported 0/10 Appearance Alert, cooperative, possibly confused. Mental Status/Objective Patient Orientation: Person, Place, Situation Attachments: Saline Lock Current Glasses/Contacts: Yes Hearing Aids: No Dentures/Partials: Yes (cannot eat peanuts without dentures) Hand Dominance: Right Upper Extremity ROM Grossly WFL bilat Upper Extremity Strength Grossly 4/5 bilat. bruising on R arm ADL-Treatment ADL-Current Pt was seen for some co-tx with PT, with OT focusing on ADLs and PT focusing on mobility. Pt needed maximum encouragement to participate and wanted to go back to bed several times. Functional [place] Measure 0=Not Assessed/NA 4=Minimal Assistance 1=Total Assistance 5=Supervision or Setup 2=Maximal Assistance 6=Modified [place] 3=Moderate Assistance 7=Complete IndependenceIRFPAI Quality Coding Scale 6 Independent with activity with or without an assistive device 5 Patient requires set up or clean up by helper. Patient completes activity by themselves 4 Supervision or touching assist (CGA). [place] provide cues , steadying assist 3 The helper provides less than half the effort to complete the activity 2 The helper provides more than half the effort to complete the activity 1 Dependent. The helper does all the effort to complete an activity 7 Patient refused to complete or attempt activity 9 The patient did not perform the activity before the current illness or injury 88 Not attempted due to Medical conditions or safety concerns Upper Body Dressing (FIM): 5 (setup) Upper Body Dressing (QC): 5 Lower Body Dressing (FIM): 1 (Max assist sit to stand. Unable to get pants over feet, pull them up. FWW) Lower Body Dressing (QC): 1 On/Off Footwear (QC): 1 Toileting (FIM): 1 (Two people to manage clothing. pt is able to wipe. BSC, FWW ) Toileting Hygiene (QC): 2 (2 people) Transfers (B, C, W/C) (FIM): 2 (Max) Toilet/Commode Transfer (FIM): 2 (Max) Toilet Transfer (QC): 2 Education OT Patient Education: Modified ADL techniques, Purpose of tx/functional activities, Rehab process, Safety issues, Transfer techniques Teaching Recipient: Patient Teaching Methods: Demonstration, Discussion Response to Teaching: Reinforcement Needed OT Short Term Goals Short Term Goals Time Frame: Apr 06, 2016 Lower Body Dressing(FIM): 3 Toileting(FIM): 3 Toilet/Commode Transfer(FIM): 3 Shower Transfer(FIM): 3 Additional Short Term Goals: 2-Verbalize Understanding, 3-ImproveStrength/Jose 1=Demonstrate adherence to instructed precautions during ADL tasks. 2=Patient will verbalize/demonstrate understanding of assistive devices/ modifications for ADL. 3=Patient will improve strength/tolerance for activity to enable patient to perform ADL's. OT Airport Guide Goals Jail Goals Time Frame: Apr 20, 2016 Eating (FIM): 6 Eating (QC): 6 Oral Hygiene (QC): 6 Grooming(FIM): 6 Bathing(FIM): 5 Shower/Bathe Self (QC): 5 Upper Body Dressing(FIM): 6 Upper Body Dressing (QC): 6 Lower Body Dressing(FIM): 5 (setup) Lower Body Dressing (QC): 5 On/Off Footwear (QC): 5 (setup) Toileting(FIM): 6 Toileting Hygiene (QC): 6 Toilet/Commode Transfer(FIM): 6 Toilet/Commode Transfer (QC): 6 Shower Transfer(FIM): 6 Additional Goals: 2-Verbalize Understanding, 3-ImproveStrength/Jose 1=Demonstrate adherence to instructed precautions during ADL tasks. 2=Patient will verbalize/demonstrate understanding of assistive devices/ modifications for ADL. 3=Patient will improve strength/tolerance for activity to enable patient to perform ADL's. OT Education/Plan Problem List/Assessment Assessment: Decreased Activ Tolerance, Decreased Safety Aware, Decreased UE Strength, Dependent Transfers, Impaired Bed Mobility, Impaired Cognition, Impaired Funct Balance, Impaired Self-Care Skills Pt would benefit from skilled OT to increase her independence in basic self care to allow her to return safely to her own home to live alone, with supplemental caretakers, and to decrease caregiver burden. Discharge Recommendations Plan/Recommendations: Continue POC Barriers to Progress prior functional status Target Placement home Treatment Plan/Plan of Care Treatment,Training & Education: Yes Patient would benefit from OT for education, treatment and training to promote independence in ADL's, mobility, safety and/or upper extremity function for ADL' s. Plan of Care: ADL Retraining, Functional Mobility, Group Exercise/Act as Ind ( exercise, education, functional activities, activity tolerance, memory) Treatment Duration: Apr 20, 2016 # of days/week 5-6 Visits Per Week: 10-11 Minutes/Day (M-F): 75-90 Minutes/Day (Sat/Hamm): PRN Agreement: Yes Rehab Potential: Fair Time/GCodes Start Time: 10:50 Stop Time: 11:45 Total Time Billed (hr/min): 55 Billed Treatment Time visit, 15 minutes evaluation high complexity, 40 minutes ADL 30 minutes co-tx with PT SHAR GALLARDO OT Mar 30, 2016 13:01
[2016-03-30] MEDS: LACTULOSE SYRUP 10GM/15ML (ENULOSE) 30ML UDC PO SCH ×3 (13:55→20:39)
--- NOTE | 2016-03-30 14:01 | ST Cognitive Linguistic Eval ---
Speech Evaluation-General Medical Diagnosis Right ORIF Onset Date: Mar 30, 2016 Therapy Diagnosis Therapy Diagnosis: Mild Cognitive Impairment Precautions Precautions/Isolations: Fall Prevention, Standard Precautions, Pressure Ulcer Referral Referring Physician: Dr. Valentín Pradhan Reason for Referral: Evaluation/Treatment Cognitive Evaluation Medical History Pertinent Medical History: Arthritis, CAD, COPD, GERD, HTN, Hypothroidism Reviewed History: Yes Speech PLF-Current Status Prior Level of Function The patient denied challenges with speech, language, or cognition prior to or throughout her recent hospitalization. Subjective The patient was recently admitted to [facility] with a diagnosis of right ORIF. The patient greeted the clinician appropriately and agreed to participate in the cognitive screen on this date. The patient reported intermittent nausea throughout the evaluation, however, did not wish for any aid/medication. Language Eval: Auditory Comprehends Simple Yes/No Ques: Functional Indent/Objects Multiple Kaplan: Functional Ident/Pics in Multiple Kaplan: Functional Follows 1-Step Commands: Mild (Repetition required for increased accuracy.) Follows Complex Directions: Mild (Repetition required for increased accuracy.) Follows General Conversations: Mild (Repetition required for more complete responses.) Language Eval: Verbal Language Completes Spontaneous Greeting: Functional Produces Auto, Serial Info: Functional Imitates Simple Words/Phrases: Functional Word Finding: Functional Requests Basic Needs: Functional States Basic Personal Info: Functional Cognitive Patient Orientation The patient is oriented to month, year, and date. The patient required cues for identification of day of week. Objective Cognitive Domain Attention: Mild (Redirection to tasks were provided throughout the evaluation.) Memory: Mild (Verbal cues (category) required for identification of three of three single words.) Problem Solving: Mild Executive Functions: Mild Objective Impression The patient demonstrated mild cognitive deficits in the regions of memory ( immediate and delayed), attention, executive function, and problem solving. Communication/Social Cognition Comprehension: 4 Expression: 5 Social Interaction: 4 Problem Solvin Memory: 4 Speech Patient Assess Expression of Ideas/Wants: Exhibits (3) Understanding [place] Content: Usually Understands (3) Brief Interview-Mental Status: Yes Repetition of Three Words: Three (3) Temporal Orientation: Year: Correct (3) Temporal Orientation: Month: Accurate within 5 days(2) Recall : Wear to say "Sock": No, could not recall (0) Recall : Color: Yes, no cue required (2) Recall : Bed: Yes, no cue required (2) Speech Short Term Goals Short Term Goals Short Term Goals 1. The patient will recall and demonstrate three functional memory strategies for use at home and throughout structured tasks. 2. The patient will demonstrate 80% accuracy with safety problem solving with mild clinician cueing. Time Frame-STG: Two Weeks Speech Quality Coordinator Goals Quality Coordinator Goals 1. The patient will demonstrate improved cognition for increased function and safety with ADL's in the least restrictive setting. Time Frame: Three Weeks Comprehension: 5 Expression: 5 Social Interaction: 5 Problem Solvin Memory: 5 Speech-Plan Treatment Plan Speech Therapy Treatment Plan: Continue Plan of Care Skilled speech services to focus on functional problem solving and memory strategies. Treatment Duration: Apr 20, 2016 # of days/week Four to Five Visits Per Week: Four to Five Minutes/Day (M-F): 30 Rehab Potential: Fair Safety Risks/Education Teaching Recipient: Patient Teaching Methods: Discussion Response to Teaching: Reinforcement Needed Education Topics Provided: Plan of Care Time Speech Therapy Time In: 12:45 Speech Therapy Time Out: 13:00 Total Billed Time: 15 Billed Treatment Time 1, TARAN TRINIDAD Mar 30, 2016 14:01
--- NOTE | 2016-03-30 14:25 | Physical Therapy Evaluation ---
PT Evaluation-General Medical Diagnosis Admission Date Mar 30, 2016 at 10:50 Medical Diagnosis: Right ORIF Onset Date: Mar 30, 2016 Therapy Diagnosis Therapy Diagnosis: impaired mobility, strength, endurance Height/Weight Height (Feet): 5 Height (Inches): 1.00 Weight (Pounds): 146 Weight (Ounces): 0.0 Precautions Precautions/Isolations: Fall Prevention, Standard Precautions, Pressure Ulcer Weight Bear Status Weight Bearing Restriction: Weight Bearing/Tolerated Location Restriction: R LE Referral Physician: Lorne Reason for Referral: Evaluation/Treatment Medical History Pertinent Medical History: Arthritis, CAD, COPD, GERD, HTN, Hypothroidism Current History syncopal episode resulting in fall and right hip facture; per patient, she was to have a colostomy reversal on this date in [place] Reviewed History: Yes Social History Home: Single Level Current Living Status: Alone Entry Into Home: Level Entry Prior/Core FIM Prior Level of Function Functional [place] Measure 0=Not Assessed/NA 4=Minimal Assistance 1=Total Assistance 5=Supervision or Setup 2=Maximal Assistance 6=Modified [place] 3=Moderate Assistance 7=Complete [place] Bed Mobility: 6 Transfers (B,C,W/C) (FIM): 6 Gait: 6 PT Evaluation-Current Subjective Patient in bed pre tx, agrees to PT reluctantly, would like to get on the commode. States she has 9/10 pain in right hip. Will be co-treating with OT who will work on ADL's while PT works on transfers and mobility. Pt/Family Goals to be independent at home Objective Patient Orientation: Person, Place, Situation Attachments: Colostomy/Ileostomy ROM/Strength ROM Lower Extremities NT right leg due to surgery, WNL left leg Strenght Lower Extremities NT right leg due to surgery, 4/5 gross left leg Neuromuscular (Tone, Coordination, Reflexes) WNL Sensory Vision: Functional Hearing: Functional Sensation Right Lower Extremit: Intact Sensation Left Lower Extremity: Intact Transfers Functional [place] Measure 0=Not Assessed/NA 4=Minimal Assistance 1=Total Assistance 5=Supervision or Setup 2=Maximal Assistance 6=Modified [place] 3=Moderate Assistance 7=Complete IndependenceIRFPAI Quality Coding Scale 6 Independent with activity with or without an assistive device 5 Patient requires set up or clean up by helper. Patient completes activity by themselves 4 Supervision or touching assist (CGA). [place] provide cues , steadying assist 3 The helper provides less than half the effort to complete the activity 2 The helper provides more than half the effort to complete the activity 1 Dependent. The helper does all the effort to complete an activity 7 Patient refused to complete or attempt activity 9 The patient did not perform the activity before the current illness or injury 88 Not attempted due to Medical conditions or safety concerns Transfers (B, C, W/C) (FIM): 2 Scootin Rollin Roll Left to Right (QC): 3 Supine to/from Sit: 3 Sit to/from Stand: 2 bed t/f WC(FIM only if WC use): 2 Sit to Lying (QC): 3 Lying to Sitting/Side of Bed(Q: 2 Sit to Stand (QC): 2 Chair/Lvo-sa-Vweoi Xfer(QC): 2 Car Transfer (QC): 88 Patient needs cues for safety and hand placement. Gait Does the Patient Walk?: Yes Mode of Locomotion: Walk Anticipated Mode of Locomotion: Walk Gait (FIM): 1 Walk 10 feet (QC): 88 Walk 50 ft with 2 Turns(QC): 88 Walk 150 ft (QC): 88 Walking 10ft/uneven surface-QC: 88 Distance: 5' Gait Level of Assist: 4 Gait Persons Needed: 1 Gait Assistive Device: FWW Comments/Gait Description Very slow, antalgic, poor endurance, poor right leg advancement, not much weight bearing on right leg. Wheelchair Training Does the Pt Use a Wheelchair?: Yes Wheelchair (FIM): 1 Distance: 20' Wheelchair Level of Assist: 3 Wheel 50 ft with 2 turns (QC): 88 Wheel 150 ft (QC): 88 Type of Wheelchair: Manual Patient uses both arms to propel a manual wheelchair about 20', she has trouble turning. Stairs If not tested on admit;explain Stairs not attempted due to pain and weakness, would put patient at a high risk of falling. Balance Sitting Static: Normal Sitting Dynamic: Normal Standing Static: Poor Standing Dynamic: Poor Picking up an Object (QC): 88 Treatment Patient was toileted once on bedside commode. Assessment/Needs Patient has impairments in mobility, strength, endurance, balance post right hip fracture. Rehab Potential: Fair PT Short Term Goals Short Term Goals Time Frame: Apr 06, 2016 Transfers (B,C,W/C) (FIM): 4 Gait (FIM): 2 Gait Distance Comment: 50' Gait Level of Assist: 4 Gait Assistive Device: FWW PT Snf Goals Snf Goals PT Snf Goals Time Frame: Apr 20, 2016 Transfers (B,C,W/C) (FIM): 4 (CGA) Sit to Lying (QC): 4 Lying-Sitting on Side/Bed(QC): 4 Sit to Stand (QC): 4 Rollin Roll Left to Right (QC): 4 Chair/Guq-qn-Qbbjh Xfer(QC): 4 Car Transfer (QC): 4 Does the Patient Walk: Yes Gait (FIM): 4 Distance: 150' Walk 10 feet (QC): 4 Walk 10ft-Uneven Surface(QC): 4 Walk 50ft with 2 Turns (QC): 4 Walk 150 ft (QC): 4 Gait Level of Assist: 4 (CGA) Gait Assistive Device: FWW Stairs (FIM): 2 # of Steps: 4 1 Step (curb) (QC): 4 4 Steps (QC): 4 12 Steps (QC): 88 Stairs Level Of Assist: 4 (CGA) Picking up an Object (QC): 88 PT Plan Problem List Problem List: Activity Tolerance, Functional Strength, Safety, Balance, Gait, Transfer, Bed Mobility, ROM Treatment/Plan Treatment Plan: Continue Plan of Care Treatment Plan: Bed Mobility, Education, Functional Activity Jose, Functional Strength, Group Therapy, Gait, Safety, Therapeutic Exercise, Transfers Treatment Duration: Apr 20, 2016 # of days/week 5-6 Visits Per Week: 10-11 Minutes/Day (M-F): 60-90 Minutes/Day (Sat/Hamm): 15-30 Pt/Family Agrees w/Plan: Yes Safety Risks/Education Patient Education: Gait Training, Transfer Techniques, Correct Positioning, W/ C Management, Safety Issues Teaching Recipient: Patient Teaching Methods: Demonstration, Discussion Response to Teaching: Reinforcement Needed Discharge Recommendations Plan Patient will perform bed mobility and transfer training, balance and endurance training, functional strengthening, stair training, gait training, education, to improve functional mobility and independence at home. Therapy D/C Recommendations: Home w/ Family Support, Retirement (TCU/NH) Time/GCodes Time In: 1115 Time Out: 1200 Total Billed Treatment Time: 45 Total Billed Treatment 1 visit EVL 15 min FA 15 min GT 15 min 15 min for PT evaluation. PT and OT co-treated for 30 min to toilet patient ( PT worked on standing and transfers while OT worked on hygiene and ADL's), ambulate and perform transfers and wheelchair mobility. SHALINI GUY PT Mar 30, 2016 14:25
--- NOTE | 2016-03-30 14:49 | Therapy Group Daily Note ---
Therapy Daily Group Note Patient Education Topic Home Safety Exercises LE Seated Exercise, UE Exercise Other/Notes Each patient had group therapy in the common area of rehab. Each patient was transported by wheelchair or ambulation as they were able and seated in a hoh. Each patient introduced themselves, stated where they were from and had to recall a specific memory from their past. Then, they all performed an activity that involved social interaction, memory, critical thinking, and problem solving. Next, the therapists provided education on home safety devices. Intermittently during group therapy the patients participated in seated exercises involving both upper and lower extremities. When it was done, each patient was transported back to their room by wheelchair or ambulation as they were able, call lights within reach and alarms on if applicable. Start Time: 13:00 Stop Time: 14:15 Total Billed Treatment Time: 75 Total Billed Treatment 1 visit GRP 75 min SHALINI GUY PT Mar 30, 2016 14:49 SHAR GALLARDO OT Mar 30, 2016 15:07
[2016-03-30] MEDS: SUCRALFATE 1 GM (CARAFATE) TAB PO SCH ×2 (16:37→20:38)
[2016-03-30] MEDS: LORazepam 1 MG (ATIVAN) TAB PO SCH (16:37)
[2016-03-30] MEDS: oxyCODONE/APAP 10/325MG (PERCOCET 10) TABLET PO PRN (16:37)
[2016-03-30 18:00] VITALS: BP_SYST 123; BP_SYST 148; BP_DIAS 80; BP_DIAS 81
[2016-03-30] MEDS: RT-ADVAIR HFA 115/21 MCG PER PUFF IH SCH (18:26)
[2016-03-30] MEDS: ARTIFICAL TEARS 0.4 ML UNIT DOSE (REFRESH PLUS) OU SCH (20:38)
[2016-03-30] MEDS: PANTOPRAZOLE 40 MG (PROTONIX) TAB PO SCH (20:39)
[2016-03-30] MEDS: GABAPENTIN 300 MG (NEURONTIN) CAP PO SCH (20:39)
[2016-03-30] MEDS: rOPINIRole 1 MG (REQUIP) TABLET PO SCH (20:39)
[2016-03-30] MEDS: TEMAZEPAM 15 MG (RESTORIL) CAP PO SCH (20:40)
[2016-03-30] MEDS ORDERED: NON-FORMULARY MEDICATION 1 EA EA PO SCH (21:00)
[2016-03-31 04:40] VITALS: BP 150/80
[2016-03-31] MEDS: RT-ADVAIR HFA 115/21 MCG PER PUFF IH SCH ×2 (06:14→19:22)
[2016-03-31] MEDS: PANTOPRAZOLE 40 MG (PROTONIX) TAB PO SCH ×2 (06:21→20:35)
[2016-03-31] MEDS: LEVOTHYROXINE 100 MCG (LEVOTHROID) TAB PO SCH (06:21)
[2016-03-31] MEDS: LORazepam 1 MG (ATIVAN) TAB PO SCH ×2 (06:21→16:57)
[2016-03-31] MEDS: SUCRALFATE 1 GM (CARAFATE) TAB PO SCH ×4 (06:21→20:35)
[2016-03-31] MEDS ORDERED: PANTOPRAZOLE 40 MG (PROTONIX) TAB PO SCH (07:00)
[2016-03-31] MEDS: eZETimibe 10 MG (ZETIA) TABLET PO SCH (08:05)
[2016-03-31] MEDS: DULoxetine 30 MG (CYMBALTA) CAP PO SCH (08:05)
[2016-03-31] MEDS: CLOPIDOGREL 75 MG (PLAVIX) TABLET PO SCH (08:05)
[2016-03-31] MEDS: oxyCODONE/APAP 10/325MG (PERCOCET 10) TABLET PO PRN (08:05)
[2016-03-31] MEDS: LACTULOSE SYRUP 10GM/15ML (ENULOSE) 30ML UDC PO SCH ×4 (08:06→20:35)
[2016-03-31] MEDS: ARTIFICAL TEARS 0.4 ML UNIT DOSE (REFRESH PLUS) OU SCH ×2 (08:06→20:35)
[2016-03-31] MEDS: meTOproloL SUCCINATE 50 MG (TOPROL XL) TAB PO SCH (08:06)
[2016-03-31] MEDS: ASPIRIN E.C. 81 MG (ECOTRIN) TAB PO SCH (08:06)
[2016-03-31] MEDS: GABAPENTIN 300 MG (NEURONTIN) CAP PO SCH (08:06)
--- NOTE | 2016-03-31 09:45 | Physical Therapy Daily Note ---
PT Daily Note-Current Subjective Patient in bed sleeping pre tx, hard to rouse, very lethargic. She states she has pain of 5/10 in right hip. Patient needs to get dressed. Poor motivation. Needs a lot of encouragement. Appearance Patient in bed post tx with nurse call, phone, tray, all needs met. Bed alarm on. Mental Status Patient Orientation: Person, Place Attachments: Colostomy/Ileostomy Transfers Functional [place] Measure 0=Not Assessed/NA 4=Minimal Assistance 1=Total Assistance 5=Supervision or Setup 2=Maximal Assistance 6=Modified [place] 3=Moderate Assistance 7=Complete IndependenceIRFPAI Quality Coding Scale 6 Independent with activity with or without an assistive device 5 Patient requires set up or clean up by helper. Patient completes activity by themselves 4 Supervision or touching assist (CGA). [place] provide cues , steadying assist 3 The helper provides less than half the effort to complete the activity 2 The helper provides more than half the effort to complete the activity 1 Dependent. The helper does all the effort to complete an activity 7 Patient refused to complete or attempt activity 9 The patient did not perform the activity before the current illness or injury 88 Not attempted due to Medical conditions or safety concerns Transfers (B, C, W/C) (FIM): 2 Scootin Rollin Supine to/from Sit: 2 Sit to/from Stand: 2 Bed to/from Chair: 2 Patient had to stand several time to get dressed and get her brief on. Needs cues for hand placement and safety. Exercises Patient stood in the parallel bars x 3 for approx 1 min each time. NuStep Minutes: 5 NuStep Workload: 3 Treatments bed mobility and transfers, functional strengthening Assessment Current Status: Poor Progress No improvement in mobility. Patient has poor motivation and constantly asks to stop or go back to bed. All mobility is very slow and it is questionable whether patient participates with full effort. PT Short Term Goals Short Term Goals Time Frame: Apr 06, 2016 Transfers (B,C,W/C) (FIM): 4 Gait (FIM): 2 Gait Distance Comment: 50' Gait Level of Assist: 4 Gait Assistive Device: FWW Wheelchair Distance: 20' PT Assisted Goals Critical Care Educator Goals PT Critical Care Educator Goals Time Frame: Apr 20, 2016 Transfers (B,C,W/C) (FIM): 4 (CGA) Sit to Lying (QC): 4 Lying-Sitting on Side/Bed(QC): 4 Sit to Stand (QC): 4 Rollin Roll Left to Right (QC): 4 Chair/Rlk-ec-Hgfif Xfer(QC): 4 Car Transfer (QC): 4 Does the Patient Walk: Yes Gait (FIM): 4 Distance: 150' Walk 10 feet (QC): 4 Walk 10ft-Uneven Surface(QC): 4 Walk 50ft with 2 Turns (QC): 4 Walk 150 ft (QC): 4 Gait Level of Assist: 4 (CGA) Gait Assistive Device: FWW Stairs (FIM): 2 # of Steps: 4 1 Step (curb) (QC): 4 4 Steps (QC): 4 12 Steps (QC): 88 Stairs Level Of Assist: 4 (CGA) Picking up an Object (QC): 88 PT Plan Problem List Problem List: Activity Tolerance, Functional Strength, Safety, Balance, Gait, Transfer, Bed Mobility, ROM Treatment/Plan Treatment Plan: Continue Plan of Care Treatment Plan: Bed Mobility, Education, Functional Activity Jose, Functional Strength, Group Therapy, Gait, Safety, Therapeutic Exercise, Transfers Treatment Duration: Apr 20, 2016 Visits Per Week: 10-11 Minutes/Day (M-F): 60-90 Minutes/Day (Sat/Hamm): 15-30 Safety Risks/Education Patient Education: Transfer Techniques, Correct Positioning, Safety Issues Teaching Recipient: Patient Teaching Methods: Demonstration, Discussion Response to Teaching: Reinforcement Needed Time/GCodes Time In: 845 Time Out: 945 Total Billed Treatment Time: 60 Total Billed Treatment 1 visit FA 60 min SHALINI GUY PT Mar 31, 2016 09:45
--- NOTE | 2016-03-31 10:40 | HISTORY AND PHYSICAL ---
DATE OF ADMISSION: 03/30/2016 CHIEF COMPLAINT: Difficulty with walking. HISTORY OF PRESENT ILLNESS: The patient is a 75-year-old female who was admitted via the ED after she presented there with a broken hip. She indicates that she had a problem after having an epidural block performed on an outpatient basis at a [facility] in [place]. She was subsequently seen in the ED with an issue with hemorrhaging. She was evaluated and discharged to home. She felt weak and felt lightheaded and fell to the floor once home. She had been modified independent with a walker prior to this. Currently, she requires assistance for ADLs and mobility skills. She is status post repair of hip fracture, specifically an intertrochanteric fracture of the right hip. She has a diverting colostomy in need of takedown as well as abdominal hernia. She states she was to see Dr. Yusuf in [place] for takedown when she became ill. She had postoperative anemia and required 2 units of packed red blood cells and iron infusions Currently she has some cognitive issues and c/o swallowing difficulty ST has notes a mild oral dysphagia and has placed the patient on a mechaical soft diet The patients Requip and Gabapentin are being held due to drowsiness.The patient is min assist for gait with WW and Mod assist for transfers,She is setup for UB dressing and max assist for lower body dressing PAST MEDICAL HISTORY: 1. Vertebral compression fracture, status post kyphoplasty. 2. Chronic back pain. 3. She has been on an Inpatient Rehabilitation Unit 2 years ago and did well. 4. Arthritis. 5. Coronary artery disease. 6. COPD. 7. GERD. 8. Hypertension. 9. Hypothyroidism on replacement. 10. DVT. 11. Anxiety. 12. Colostomy, as per above. PAST SURGICAL HISTORY: 1. Kyphoplasty. 2. Cardiac cath with stents x2. 3. EGD. 4. Hysterectomy. ALLERGIES: No known medication allergies. FAMILY HISTORY: Noncontributory. SOCIAL HISTORY: She lives alone in a wheelchair accessible apartment in [place]. Has had multiple assessments with ED in the past regarding back pain, etc. REVIEW OF SYSTEMS: Ten-point review of systems significant for back pain, and hip pain, falls. MEDICATIONS: 1. Toprol-XL 150 mg p.o. daily. 2. Cymbalta 60 mg p.o. daily. 3. Plavix 75 mg p.o. daily. 4. ASA 81 mg p.o. daily. 5. Zetia 10 mg p.o. daily. 6. Levothyroxine 100 mcg p.o. daily. 7. Refresh tears one drop b.i.d., 8. Temazepam 30 mg p.o. at bedtime. 9. Requip 8 mg p.o. at bedtime. 10. Gabapentin 900 mg p.o. b.i.d. 11. Protonix 40 mg p.o. b.i.d. 12. Advair 2 puffs b.i.d. 13. Lorazepam 1 mg p.o. p.o. t.i.d. with meals. 14. Carafate 1 gram p.o. daily q.i.d. before meals and at bedtime. 15. Lactulose 30 grams p.o. q.i.d. 16. Tramadol 50 mg p.o. q.4 hours p.r.n. mild pain. 17. Nitrostat 0.4 mg sublingual p.r.n. chest pain. 18. Percocet 10/325, 1 tablet p.o. q.6 hours p.r.n. moderate pain. PHYSICAL EXAMINATION: Significant for a pleasant female, appearing her stated age, alert, oriented no acute distress. VITAL SIGNS: Within normal limits. She is afebrile. O2 sat 95% on room air. Blood pressure 148/81, respirations 16, pulse is 75. She is afebrile. HEENT: Vision, speech, hearing, grossly intact. No oral lesions noted. NECK: Supple without mass. HEART: Regular rhythm. LUNGS: Clear. ABDOMEN: Soft, nontender. Bowel sounds present.Colsotomy present EXTREMITIES: No lower edema. No calf tenderness. MUSCULOSKELETAL: The patient has functional passive range of motion of all 4 extremities. NEUROLOGIC: The patient is oriented to month, year, and date. She has a mild memory deficit, problem solving deficit, executive function deficit with attention deficit She was reported to have had a caregiver help her with dressing and bathing at home and cooking tasks as well. She utilized a four-wheel walker at home. Strength generally a 4/5 except rt hip. There is some bruising on the right arm. Sensation is grossly intact to touch. She has some guarding with limited strength at the right hip. IMPRESSION: 1. Ambulatory dysfunction secondary to fall, intratrochanteric fracture right hip, status post ORIF, orthopedics. 2. Postoperative anemia, status post transfusion 2 units packed red blood cells. 3. Diverting colostomy. 4. Recent fall and bleeding status post epidural block 03/25/2016. 5. Hypothyroidism on replacement. 6. Insomnia on temazepam. 7. Constipation on meds. 8. Depression, on medication. 9. oversedation -gabapentin and requip held PLAN: The patient will have a comprehensive program of inpatient rehabilitation with the goal of maximizing level of functional dependence prior to discharge home with caregiver and home health care. The patient will have PT/OT 90 days each discipline when not being seen by speech therapy 5 days a week for gait strengthening, conditioning, balance, ADLs, any patient/family/caregiver training necessary, any adaptive equipment and training necessary. Speech therapy to do ongoing cognitive therapy 3 to 5 times a week 30 to 45 minutes per day. Rehabilitation nursing assist with bowel, bladder, skin care, medication administration, wound care, pain management. health services coordinator to assist with discharge planning, community. Follow-up orthopedics and Dr. Martinez et al. on hospital service as per their schedules. Follow-up with Dr. Brewer, PCP upon discharge and orthopedics upon discharge. Therapy with cardiac and fall precautions. ESTIMATED LENGTH OF STAY: Two to three weeks. PROGNOSIS: Rehab prognosis appears good for goal of discharging home with caregiver, home health care at modified independent to supervision level for ADLs and mobility skills. DIET: Mechaical soft. CODE STATUS: Full code. POST ADMISSION PHYSICIAN ASSESSMENT: The preadmission screen agrees with the post admission assessment that the patient is a good candidate for inpatient rehabilitation. She appears to be well motivated to participate in 3 hours of therapy a day. She should be able tolerate 3 hours of therapy a chance at a medical and orthopedic standpoint. She should benefit from the 3 hours of therapy a day. She has reasonable discharge plan, reasonable discharge rehabilitation goals and a supportive family. She has various comorbidities that need closely monitored with medications and treatments adjusted on daily basis as needed. These include her chronic back pain, COPD, postoperative anemia, coronary artery disease and hypertension . Barriers to discharge for this patient who had been modified independent for mobility with a front wheel walker prior to this fall are for her to be modified independent to supervision for ADLs and mobility skills upon discharge so as to lessen the burden of the caregivers. Risks for this patient: Include: 1. Recurrent falls. 2. Fracture. 3. Wound infection. 4. Skin breakdown. 5. Urinary retention. 6. UTI. 7. Respiratory infection. 8. Aspiration. 9. Poorly controlled pain. 10. Hypertension. 11. Worsening anemia. Job ID: [id number] Dictated Date: 03/30/2016 20:23:23 Body Joiner Date: 03/31/2016 10:15:06/christel GO
--- NOTE | 2016-03-31 10:43 | Occupational Ther Daily Note ---
OT Current Status-Daily Note Subjective Pt seen in room, very sleepy, reluctantly agreed to OT. Declined a bath, stating , "I'm too cold." No pain mentioned Appearance Very sleepy, mumbles at times Mental Status/Objective Patient Orientation: Person, Confused, Place Functional [place] Measure 0=Not Assessed/NA 4=Minimal Assistance 1=Total Assistance 5=Supervision or Setup 2=Maximal Assistance 6=Modified [place] 3=Moderate Assistance 7=Complete [place] Attachments: Central Line, Colostomy/Ileostomy ADL-Treatment Functional [place] Measure 0=Not Assessed/NA 4=Minimal Assistance 1=Total Assistance 5=Supervision or Setup 2=Maximal Assistance 6=Modified [place] 3=Moderate Assistance 7=Complete IndependenceIRFPAI Quality Coding Scale 6 Independent with activity with or without an assistive device 5 Patient requires set up or clean up by helper. Patient completes activity by themselves 4 Supervision or touching assist (CGA). [place] provide cues , steadying assist 3 The helper provides less than half the effort to complete the activity 2 The helper provides more than half the effort to complete the activity 1 Dependent. The helper does all the effort to complete an activity 7 Patient refused to complete or attempt activity 9 The patient did not perform the activity before the current illness or injury 88 Not attempted due to Medical conditions or safety concerns Eating (FIM): 5 (setup, some encouragement to stay awake to eat.) Eating (QC): 5 Grooming (FIM): 5 (Setup, brushed teeth and hair a sink, washe face and hands at sink. Did not have adhesive for dentures) Oral Hygiene (QC): 5 Toileting Hygiene (QC): 1 (two people) Toileting (FIM): 1 (two people, one to stand and one to wipe, BSC, FWW) Transfers (B, C, W/C) (FIM): 2 (Max assist from bed to w/c, mod assist w/c to BSC (after skilled cues for "nose over toes"). Once up, needed CGA and min hlep with walker to stand and picot ) Toilet/Commode Transfer (FIM): 2 (Max assist on to BSC, mod assist off BSC, FWW ) Toilet Transfer (QC): 2 Other Treatment Pt transported to gym and did several different tabletop activities related to ADLs. No additional resistance on arms at this time. pt needed frequent encouragement and frequently interacted with other patients in room and other staff. Pt returned to room, toileting, transferred to bed and mod assist to get 2 legs into bed. left with nursing emptying colostomy bag, 4 rails up, call light OT Short Term Goals Short Term Goals Time Frame: Apr 06, 2016 Lower Body Dressing(FIM): 3 Toileting(FIM): 3 Transfers (B,C,W/C) (FIM): 4 Toilet/Commode Transfer(FIM): 3 Shower Transfer(FIM): 3 Additional Short Term Goals: 2-Verbalize Understanding, 3-ImproveStrength/Jose 1=Demonstrate adherence to instructed precautions during ADL tasks. 2=Patient will verbalize/demonstrate understanding of assistive devices/ modifications for ADL. 3=Patient will improve strength/tolerance for activity to enable patient to perform ADL's. OT Prison Goals Prison Goals Time Frame: Apr 20, 2016 Eating (FIM): 6 Eating (QC): 6 Groomin Oral Hygiene (QC): 6 Bathing(FIM): 5 Shower/Bathe Self (QC): 5 Upper Body Dressing(FIM): 6 Upper Body Dressing (QC): 6 Lower Body Dressing(FIM): 5 (setup) Lower Body Dressing (QC): 5 On/Off Footwear (QC): 5 (setup) Toileting(FIM): 6 Toileting Hygiene (QC): 6 Toilet/Commode Transfer(FIM): 6 Toilet/Commode Transfer (QC): 6 Shower Transfer(FIM): 6 Comprehension(FIM): 5 Expression (FIM): 5 Social Interaction(FIM): 5 Problem Solving(FIM): 5 Memory(FIM): 5 Additional Goals: 2-Verbalize Understanding, 3-ImproveStrength/Jose 1=Demonstrate adherence to instructed precautions during ADL tasks. 2=Patient will verbalize/demonstrate understanding of assistive devices/ modifications for ADL. 3=Patient will improve strength/tolerance for activity to enable patient to perform ADL's. OT Education/Plan Problem List/Assessment Pt would benefit from skilled OT to increase her independence in basic self care to allow her to return safely to her own home to live alone, with supplemental caretakers, and to decrease caregiver burden. Discharge Recommendations Plan/Recommendations: Continue POC Target Placement Pt stated that she plans to go the via [place] on discharge Treatment Plan/Plan of Care Patient would benefit from OT for education, treatment and training to promote independence in ADL's, mobility, safety and/or upper extremity function for ADL' s. Plan of Care: ADL Retraining, Functional Mobility, Group Exercise/Act as Ind ( exercise, education, functional activities, activity tolerance, memory) Treatment Duration: Apr 20, 2016 Visits Per Week: 10-11 Minutes/Day (M-F): 75-90 Minutes/Day (Sat/Hamm): PRN Agreement: Yes Rehab Potential: Fair Time/GCodes Start Time: 10:45 Stop Time: 11:45 Total Time Billed (hr/min): 60 Billed Treatment Time visit, 30 minutes ADL, 30 minutes exercise SHAR GALLARDO OT Mar 31, 2016 10:42
--- NOTE | 2016-03-31 11:20 | ST Dysphagia Evaluation ---
Speech Evaluation-General Medical Diagnosis R hip fracture Onset Date: Mar 26, 2016 Therapy Diagnosis Therapy Diagnosis: Mild Oral Dysphagia Precautions Precautions: Aspiration Precautions/Isolations: Fall Prevention, Standard Precautions, Pressure Ulcer Referral Referring Physician: Dr. Valentín Pradhan Reason for Referral: Evaluation/Treatment Clinical Bedside Swallowing Evaluation Medical History Pertinent Medical History: Arthritis, CAD, COPD, GERD, HTN, Hypothroidism Reviewed History: Yes Social History Current Living Status: Alone Speech PLF/Current-Dysphagia Prior Level of Function The patient reported intermittent coughing and choking on solid consistencies at home. Per patient, she "eats anything she wants" and does not avoid any consistency specifically due to swallowing challenges. Subjective The patient was recently admitted to [facility] with a diagnosis of a hip fracture. The patient was seated upright in bed upon entrance. The patient greeted the clinician appropriately and agreed to participate in the dysphagia evaluation on this date. The patient appeared fatigued and required moderate verbal prompting throughout the session for continued participation. To note: Per animal care technician, the patient "choked on sausage" during her morning meal. Additionally, the patient reported "choking" during her noon meal the day prior (on hamburger). Cognitive Status Patient Orientation: Person, Place Oral Motor Skills Dentition: Edentalous Denture Type: Full- Upper & Lower (Placed for evaluation.) Current Food Consistancy: Regular, Thin Liquids Ability to Follow Directions: Fair Oral Expression Ability: Mild Impairment Voice Voice Phonatory-Based Quality: Weak, Glottal [place] Voice Pitch: Normal Voice Loudness: Mildly Soft/Quiet Face Facial Symmetry: Symmetrical Oral-Facial Assessment Oral-Facial Dentition: Normal Labial Seal Description: Normal Smile: Normal Lingual Protrusion: Normal Lingual ROM: Normal Lingual Strength: Normal Pharynx Velopharyngeal Move.: Normal Volitional Dry Swallow: Yes Dysphagia Evaluation Consistencies Presented: Regular, Thin Liquid (Via teaspoon and straw) Oral Phase: Oral Residue 1. Increased mastication time was noted with solid consistencies, as well as, moderate oral residue (lingual and buccal surfaces). 1. No pharyngeal impairments were noted throughout the evaluation. - Thin Liquid (via teaspoon and straw), Solid: No signs/symptoms of aspiration were demonstrated with any consistency tested during the evaluation. The patient did demonstrate increased mastication time and oral residue with solid consistencies. Dietary Recommendations: Mechanical Soft Liquid Recommendations: Thin Swallowing Precautions: Small Bites and Sips, Sitting 90 Degrees 30 Post Intake 1. Upright and alert for all PO. Dysphagia Evaluation Summary Mild oral dysphagia. Speech Short Term Goals Short Term Goals Short Term Goals 1. The patient will recall and demonstrate three functional memory strategies for use at home and throughout structured tasks. 2. The patient will demonstrate 80% accuracy with safety problem solving with mild clinician cueing. Time Frame-STG: Two Weeks Speech Windows Security Analyst Goals Jail Goals 1. The patient will demonstrate improved cognition for increased function and safety with ADL's in the least restrictive setting. Time Frame: Three Weeks Comprehension: 5 Expression: 5 Social Interaction: 5 Problem Solvin Memory: 5 Speech-Plan Treatment Plan Speech Therapy Treatment Plan: Discontinue ST Discontinue ST for swallowing, only. Continue skilled cognitive therapy with patient. Treatment Duration: Apr 20, 2016 Rehab Potential: Fair Safety Risks/Education Teaching Recipient: Patient Teaching Methods: Discussion Response to Teaching: Verbalize Understanding, Reinforcement Needed Education Topics Provided: Swallowing Strategies, Results, Recommendations Time Speech Therapy Time In: 10:15 Speech Therapy Time Out: 10:45 Total Billed Time: 30 Billed Treatment Time 1TRINI ELIZAB[address] ST Mar 31, 2016 11:20
--- NOTE | 2016-03-31 13:25 | PM & R (SOAP) Progress Note ---
Subjective Subjective/Events-last exam Patient was seen in her room this AM Patient appears oversedated Discussed case with RN Requip and Neurontin on hold Patient c/o swallowing difficulty Diet modified Appreciate ST/OT/PT notes.Patient min assist for Gait with WW.Current meds reviewed Review of Systems General: Fatigue Neurological: : Confusion: Weakness Objective Exam Last Set of Vital Signs Vital Signs Date Time Temp Pulse Resp B/P Pulse Ox O2 Delivery O2 Flow Rate FiO2 03/31/16 09:07 95 Room Air 03/31/16 04:40 99.8 69 24 150/80 Capillary Refill : I&O Bad tableGeneral: Other (somewhat sedated but able to follow simple commands) HEENT: Atraumatic, PERRLA, EOMI, Mucous Memb Moist/[place] Neck: Supple, No JVD Lungs: Clear to Auscultation Heart: Regular Rate Abdomen: Normal Bowel Sounds, Soft, No Tenderness, Other (colostomy functioning ) Neuro: Other (generalized weakness more so at rt hip Cognitive impairment and dysphagia) Assessment/Plan Assessment Intertrochanteric hip frx rt s/p repair ortho Oversedation due to meds Cognitive impairment =multifactorial Dysphagia diet adjusted Diverting colostomy Chronic back pain with Vertebral compression fractures s/p KEVYN on an outpatient basis pOSTOP anemia s/p transfusion Constipation on meds Plan Continue PT/OT/ST Hold neurontin and requip F/U with Hospitalist and Ortho Recheck Labs See orders LEXUS CHOWDHURY MD Mar 31, 2016 13:25
--- NOTE | 2016-03-31 14:40 | Physical Therapy Daily Note ---
PT Daily Note-Current Subjective Patient is in bed and very lethargic. Reluctantly agrees to PT. Pain Numeric Pain Scale: 3 Location: Right Location Body Site: Hip Pain Description: Acute Mental Status Patient Orientation: Person, Time, Situation Transfers Functional [place] Measure 0=Not Assessed/NA 4=Minimal Assistance 1=Total Assistance 5=Supervision or Setup 2=Maximal Assistance 6=Modified [place] 3=Moderate Assistance 7=Complete IndependenceIRFPAI Quality Coding Scale 6 Independent with activity with or without an assistive device 5 Patient requires set up or clean up by helper. Patient completes activity by themselves 4 Supervision or touching assist (CGA). [place] provide cues , steadying assist 3 The helper provides less than half the effort to complete the activity 2 The helper provides more than half the effort to complete the activity 1 Dependent. The helper does all the effort to complete an activity 7 Patient refused to complete or attempt activity 9 The patient did not perform the activity before the current illness or injury 88 Not attempted due to Medical conditions or safety concerns Transfers (B, C, W/C) (FIM): 3 Scootin Rollin Roll Left to Right (QC): 3 Supine to/from Sit: 3 Sit to/from Stand: 3 Sit to Lying (QC): 3 Sit to Stand (QC): 3 Weight Bearing Weight Bearing Restriction: Weight Bearing/Tolerated Location Restriction: R LE Gait Training Does the Patient Walk?: Yes Gait (FIM): 1 Distance (FIM): 1=up to 49 ft Distance: 25' x 4 Gait Level of Assist: 4 Gait Persons Needed: 1 Gait Assistive Device: FWW slow, reciprocal pattern Assessment Patient is very lethargic from medication per RN. PT to increase activity as tolerated by patient. PT Short Term Goals Short Term Goals Time Frame: Apr 06, 2016 Transfers (B,C,W/C) (FIM): 4 Gait (FIM): 2 Gait Distance Comment: 50' Gait Level of Assist: 4 Gait Assistive Device: FWW Wheelchair Distance: 20' PT Alf Goals Alf Goals PT Cardiology Manager Goals Time Frame: Apr 20, 2016 Transfers (B,C,W/C) (FIM): 4 (CGA) Sit to Lying (QC): 4 Lying-Sitting on Side/Bed(QC): 4 Sit to Stand (QC): 4 Rollin Roll Left to Right (QC): 4 Chair/[id number] Xfer(QC): 4 Car Transfer (QC): 4 Does the Patient Walk: Yes Gait (FIM): 4 Distance: 150' Walk 10 feet (QC): 4 Walk 10ft-Uneven Surface(QC): 4 Walk 50ft with 2 Turns (QC): 4 Walk 150 ft (QC): 4 Gait Level of Assist: 4 (CGA) Gait Assistive Device: FWW Stairs (FIM): 2 # of Steps: 4 1 Step (curb) (QC): 4 4 Steps (QC): 4 12 Steps (QC): 88 Stairs Level Of Assist: 4 (CGA) Picking up an Object (QC): 88 PT Plan Treatment/Plan Treatment Plan: Continue Plan of Care Treatment Plan: Bed Mobility, Education, Functional Activity Jose, Functional Strength, Group Therapy, Gait, Safety, Therapeutic Exercise, Transfers Treatment Duration: Apr 20, 2016 Visits Per Week: 10-11 Minutes/Day (M-F): 60-90 Minutes/Day (Sat/Hamm): 15-30 Time/GCodes Time In: 1400 Time Out: 1430 Total Billed Treatment Time: 30 Total Billed Treatment 1 visit GT x 2 30 min ORTEGA MATIAS PT Mar 31, 2016 14:39
--- NOTE | 2016-03-31 15:39 | Occupational Ther Daily Note ---
OT Current Status-Daily Note Subjective Pt seen in room, in bed after lunch, having difficulty staying awake. No pain Appearance No pain mentioned Mental Status/Objective Functional [place] Measure 0=Not Assessed/NA 4=Minimal Assistance 1=Total Assistance 5=Supervision or Setup 2=Maximal Assistance 6=Modified [place] 3=Moderate Assistance 7=Complete [place] ADL-Treatment Functional [place] Measure 0=Not Assessed/NA 4=Minimal Assistance 1=Total Assistance 5=Supervision or Setup 2=Maximal Assistance 6=Modified [place] 3=Moderate Assistance 7=Complete IndependenceIRFPAI Quality Coding Scale 6 Independent with activity with or without an assistive device 5 Patient requires set up or clean up by helper. Patient completes activity by themselves 4 Supervision or touching assist (CGA). [place] provide cues , steadying assist 3 The helper provides less than half the effort to complete the activity 2 The helper provides more than half the effort to complete the activity 1 Dependent. The helper does all the effort to complete an activity 7 Patient refused to complete or attempt activity 9 The patient did not perform the activity before the current illness or injury 88 Not attempted due to Medical conditions or safety concerns Other Treatment Pt did 10 reps several different bilat UE exercises with yellow (gentle) theraband and did 10 squeezes on red foam sponge (medium), all times 2 sets. Pt had significant difficulty staying awake and also following directions for exercises. Needed skilled cues for quality of movement. Pt was not able to track repetitions or switch hands without assistance. Pt also needed skilled cues as movement quality declined. Pt left up in bed, 4 rails up, call light OT Short Term Goals Short Term Goals Time Frame: Apr 06, 2016 Lower Body Dressing(FIM): 3 Toileting(FIM): 3 Transfers (B,C,W/C) (FIM): 4 Toilet/Commode Transfer(FIM): 3 Shower Transfer(FIM): 3 Additional Short Term Goals: 2-Verbalize Understanding, 3-ImproveStrength/Jose 1=Demonstrate adherence to instructed precautions during ADL tasks. 2=Patient will verbalize/demonstrate understanding of assistive devices/ modifications for ADL. 3=Patient will improve strength/tolerance for activity to enable patient to perform ADL's. OT Chcf Goals Chcf Goals Time Frame: Apr 20, 2016 Eating (FIM): 6 Eating (QC): 6 Groomin Oral Hygiene (QC): 6 Bathing(FIM): 5 Shower/Bathe Self (QC): 5 Upper Body Dressing(FIM): 6 Upper Body Dressing (QC): 6 Lower Body Dressing(FIM): 5 (setup) Lower Body Dressing (QC): 5 On/Off Footwear (QC): 5 (setup) Toileting(FIM): 6 Toileting Hygiene (QC): 6 Toilet/Commode Transfer(FIM): 6 Toilet/Commode Transfer (QC): 6 Shower Transfer(FIM): 6 Comprehension(FIM): 5 Expression (FIM): 5 Social Interaction(FIM): 5 Problem Solving(FIM): 5 Memory(FIM): 5 Additional Goals: 2-Verbalize Understanding, 3-ImproveStrength/Jose 1=Demonstrate adherence to instructed precautions during ADL tasks. 2=Patient will verbalize/demonstrate understanding of assistive devices/ modifications for ADL. 3=Patient will improve strength/tolerance for activity to enable patient to perform ADL's. OT Education/Plan Problem List/Assessment Pt would benefit from skilled OT to increase her independence in basic self care to allow her to return safely to her own home to live alone, with supplemental caretakers, and to decrease caregiver burden. Discharge Recommendations Plan/Recommendations: Continue POC Treatment Plan/Plan of Care Patient would benefit from OT for education, treatment and training to promote independence in ADL's, mobility, safety and/or upper extremity function for ADL' s. Plan of Care: ADL Retraining, Functional Mobility, Group Exercise/Act as Ind ( exercise, education, functional activities, activity tolerance, memory) Treatment Duration: Apr 20, 2016 Visits Per Week: 10-11 Minutes/Day (M-F): 75-90 Minutes/Day (Sat/Hamm): PRN Agreement: Yes Rehab Potential: Fair Time/GCodes Start Time: 13:00 Stop Time: 13:30 Total Time Billed (hr/min): 30 Billed Treatment Time visit, 30 minutes exercise SHAR GALLARDO OT Mar 31, 2016 15:39
[2016-03-31 17:59] VITALS: BP 143/93
--- NOTE | 2016-03-31 19:44 | Individualized Plan of Care ---
Individualized Plan of Care Rehab Nursing IPOC Order Admission Date Mar 30, 2016 at 10:50 Current Orders Orders-LEXUS CHOWDHURY MD Admission-Acute Rehab Unit (03/30/16 10:50) Code/Resuscitation (03/30/16 11:07) Dressing Order & Int (Surg/Med DAILY (03/30/16 11:07) General/Regular (03/30/16 Lunch) Metoprolol Succinate (Xl) Tab (Toprol Xl (03/31/16 09:00) Duloxetine Capsule (Cymbalta Capsule) (03/31/16 09:00) Tramadol Tablet (Ultram Tablet) (03/30/16 11:15) Clopidogrel Tablet (Plavix Tablet) (03/31/16 09:00) Levothyroxine Tablet (Synthroid Tablet) (03/31/16 06:30) Aspirin Enteric Coated Tablet (Ecotrin T (03/31/16 09:00) Pantoprazole Tablet (Protonix Tablet) (03/31/16 07:00) Lactulose Oral Solution (Enulose Oral So (03/30/16 13:00) Lorazepam Tablet (Ativan Tablet) (03/30/16 17:00) Sucralfate Tablet (Carafate Tablet) (03/30/16 16:00) Nitroglycerin Sublingual (Nitrostat Sub (03/30/16 11:15) Ezetimibe Tablet (Zetia Tablet) (03/31/16 09:00) Oxycodone/Acet 10/325mg Tablet (Percocet (03/30/16 11:15) Fluticasone/Salmeterol Common (Advair 11 (03/30/16 20:00) Carboxymethylcell Ophth Soln (Refresh Pl (03/30/16 21:00) Temazepam Capsule (Restoril Capsule) (03/30/16 21:00) Consult Physician (03/30/16 11:07) Social Service (03/30/16 11:07) Occupational Therapy Order (03/30/16 11:07) Physical Therapy [place] (03/30/16 11:07) Mdi Rt-Rfs (03/30/16 11:07) Speech Therapy Orders (03/30/16 11:07) Ropinirole Tablet (Requip Tablet) (03/30/16 21:00) Non-Formulary Medication (Non-Formulary (03/30/16 21:00) Gabapentin Capsule/Tablet (Neurontin Cap (03/30/16 21:00) Sequential Compression Device 08,20 (03/30/16 11:21) Turn, Cough, And Deep Breathe (03/30/16 11:21) Mack Hose (03/30/16 11:21) Fluid Restriction (03/30/16 11:21) Incentive Spirometry (Nursing) Q2H (03/30/16 11:21) Oxygen-Administer 07,19 (03/30/16 11:27) Sodium Chloride Flush (Catheter Flush Sy (03/30/16 11:30) Pantoprazole Tablet (Protonix Tablet) (03/30/16 21:00) Patient Visit (03/30/16 ) Therapeutic, Group (03/30/16 ) Pt Eval Low Complexity (03/30/16 ) Gait Training, Ea 15 Min (03/30/16 ) Functional Activities, Ea 15 (03/30/16 ) Patient Visit (03/30/16 ) Speech Sound Lang Comp (03/30/16 ) Request For Dysphagia Services (03/31/16 10:24) Patient Visit (03/31/16 ) Dysphagia Evaluation Std (03/31/16 ) No Fluid On Trays (03/31/16 Dinner) Cbc With Automated Diff (04/01/16 06:00) Comprehensive Metabolic Panel (04/01/16 06:00) Patient Visit (03/31/16 ) Gait Training, Ea 15 Min (03/31/16 ) Functional Activities, Ea 15 (03/31/16 ) Patient Visit (03/31/16 ) PT IPOC Problem List: Activity Tolerance, Functional Strength, Safety, Balance, Gait, Transfer, Bed Mobility, ROM Treatment Plan: Continue Plan of Care Bed Mobility, Education, Functional Activity Jose, Functional Strength, Group Therapy, Gait, Safety, Therapeutic Exercise, Transfers Treatment Duration: Apr 20, 2016 Visits Per Week: 10-11 Minutes/Day (M-F): 60-90 Minutes/Day (Sat/Hamm): 15-30 OT IPOC Problems: Decreased Activ Tolerance, Decreased Safety Aware, Decreased UE Strength, Dependent Transfers, Impaired Bed Mobility, Impaired Cognition, Impaired Funct Balance, Impaired Self-Care Skills OT Problems Pt would benefit from skilled OT to increase her independence in basic self care to allow her to return safely to her own home to live alone, with supplemental caretakers, and to decrease caregiver burden. Plan of Care: ADL Retraining, Functional Mobility, Group Exercise/Act as Ind ( exercise, education, functional activities, activity tolerance, memory) Treatment Duration: Apr 20, 2016 Visits Per Week: 10-11 Minutes/Day (M-F): 75-90 Minutes/Day (Sat/Hamm): PRN ST IPOC Speech Therapy Treatment Plan: Continue Plan of Care Treatment Duration: Apr 20, 2016 Visits Per Week: 3-5 Minutes/Day (M-F): 30-45 Physician IPOC Medical Issues being managed closely and that require the 24 hour availability of a physician: pain management,medication adjustment due to oversedation, constipation,postop anemia Medical Issues: Bowel/Bladder Function, DVT Prophylaxis, Falls Precautions, Fluid/Electrolyte/Nutrition Balance, Infection Protection, Pain Management, Swallowing Precautions, Wound Care, Other (List) (as per above) Brief Synthesis of Preadmission Screen, Post-Admission Evaluation, and Therapy Evaluations: 75 yo female with chronic back pain secondary to compression fractures who had episode of dizziness at home following an KEVYN at Pain clinic.Patient fell and sustained a hip frx and now at [facility] for ortho rehab Had increased somnolence this am felt to be due to meds and meds adjusted Being seen by ST for mild cognitive impairement worsened by pain amd meds.Had been Modified Independent prior to this DR Brewer is PCP Medical Prognosis: good Anticipated Length of Stay: 04/20/16 Rehab Goals Modified Indenpendent to supervision for aDLS AND mobility skills with clearing of cognitive impairment to baseline and improved swallow Anticipated discharge destinat: Home with family and [facility] LEXUS CHOWDHURY MD Mar 31, 2016 19:44
[2016-03-31] MEDS: TEMAZEPAM 15 MG (RESTORIL) CAP PO SCH (20:35)
[2016-04-01] MEDS: oxyCODONE/APAP 10/325MG (PERCOCET 10) TABLET PO PRN ×3 (04:09→17:35)
[2016-04-01] MEDS: LORazepam 1 MG (ATIVAN) TAB PO SCH ×2 (04:56→17:35)
[2016-04-01 06:00] VITALS: BP 148/84
[2016-04-01] MEDS: PANTOPRAZOLE 40 MG (PROTONIX) TAB PO SCH ×2 (06:29→20:58)
[2016-04-01] MEDS: SUCRALFATE 1 GM (CARAFATE) TAB PO SCH ×4 (06:29→20:58)
[2016-04-01] MEDS: LEVOTHYROXINE 100 MCG (LEVOTHROID) TAB PO SCH (06:29)
[2016-04-01 07:04] LABS: BASOPHILS # (AUTO) 0.1 10^3/uL (0.0-0.1); BASOPHILS % (AUTO) 0 % (0-10); EOSINOPHILS # (AUTO) 0.2 10^3/uL (0.0-0.3); EOSINOPHILS % (AUTO) 2 % (0-10); LYMPHOCYTES # (AUTO) 2.3 X 10^3 (1.0-4.0); LYMPHOCYTES % (AUTO) 18 % (12-44); MEAN CORPUSCULAR HEMOGLOBIN 28 PG (25-34); MEAN CORPUSCULAR HGB CONC 32 G/DL (32-36); MEAN CORPUSCULAR VOLUME 87 FL (80-99); MEAN PLATELET VOLUME 10.3 FL (7.4-10.4); MONOCYTES # (AUTO) 1.2 X 10^3 (0.0-1.0); MONOCYTES % (AUTO) 9 % (0-12); NEUTROPHILS # (AUTO) 9.5 X 10^3 (1.8-7.8); NEUTROPHILS % (AUTO) 72 % (42-75); PLATELET COUNT 386 10^3/uL (130-400); RED BLOOD COUNT 3.33 10^6/uL (4.35-5.85); RED CELL DISTRIBUTION WIDTH 16.6 % (10.0-14.5); WHITE BLOOD COUNT 13.2 10^3/uL (4.3-11.0)
[2016-04-01 07:36] LABS: ALANINE AMINOTRANSFERASE < 6 U/L (0-55); ALBUMIN 3.2 G/DL (3.2-4.5); ANION GAP 9 MMOL/L (5-14); ASPARTATE AMINO TRANSFERASE 9 U/L (5-34); BILIRUBIN,TOTAL 1.2 MG/DL (0.1-1.0); BLOOD UREA NITROGEN 17 MG/DL (7-18); BUN/CREATININE RATIO 23; CALCIUM 9.7 MG/DL (8.5-10.1); CARBON DIOXIDE 22 MMOL/L (21-32); CHLORIDE 104 MMOL/L (98-107); CREATININE SERUM 0.74 MG/DL (0.60-1.30); GFR ESTIMATED > 60; GLUCOSE 110 MG/DL (70-105); POTASSIUM 4.2 MMOL/L (3.6-5.0); SODIUM 135 MMOL/L (135-145); TOTAL PROTEIN 5.4 G/DL (6.4-8.2)
[2016-04-01] MEDS: ASPIRIN E.C. 81 MG (ECOTRIN) TAB PO SCH (08:04)
[2016-04-01] MEDS: LACTULOSE SYRUP 10GM/15ML (ENULOSE) 30ML UDC PO SCH ×4 (08:04→20:59)
[2016-04-01] MEDS: meTOproloL SUCCINATE 50 MG (TOPROL XL) TAB PO SCH (08:04)
[2016-04-01] MEDS: CLOPIDOGREL 75 MG (PLAVIX) TABLET PO SCH (08:04)
[2016-04-01] MEDS: eZETimibe 10 MG (ZETIA) TABLET PO SCH (08:04)
[2016-04-01] MEDS: DULoxetine 30 MG (CYMBALTA) CAP PO SCH (08:04)
[2016-04-01] MEDS: ARTIFICAL TEARS 0.4 ML UNIT DOSE (REFRESH PLUS) OU SCH ×2 (08:04→20:58)
--- NOTE | 2016-04-01 08:55 | PM & R (SOAP) Progress Note ---
Subjective Subjective/Events-last exam Patient was seen in her room this AM Patient more alert today but c/o breakthrough pain and also wants Requip for RLS resumed Discussed with RN see orders Objective Exam Last Set of Vital Signs Vital Signs Date Time Temp Pulse Resp B/P Pulse Ox O2 Delivery O2 Flow Rate FiO2 04/01/16 06:00 98.7 73 18 148/84 95 Room Air Capillary Refill : I&O Intake and Output 04/01/16 00:00 Intake Total 1140 ml Output Total 700 ml Balance 440 ml Intake Oral 1140 ml Output Stool Total 700 ml # Voids 6 General: Other (somewhat sedated but able to follow simple commands) HEENT: Atraumatic, PERRLA, EOMI, Mucous Memb Moist/[place] Neck: Supple, No JVD Lungs: Clear to Auscultation Heart: Regular Rate Abdomen: Normal Bowel Sounds, Soft, No Tenderness, Other (colostomy functioning ) Neuro: Other (generalized weakness more so at rt hip Cognitive impairment and dysphagia) Results Lab Laboratory Tests 04/01/16 05:40: Alanine Aminotransferase (ALT/SGPT) < 6, Albumin 3.2, Alkaline Phosphatase 89, Anion Gap 9, Aspartate Amino Transf (AST/SGOT) 9, BUN/Creatinine Ratio 23, Basophils # (Auto) 0.1, Basophils (%) (Auto) 0, Blood Urea Nitrogen 17, Calcium Level 9.7, Carbon Dioxide Level 22, Chloride Level 104, Creatinine 0.74, Eosinophils # (Auto) 0.2, Eosinophils (%) (Auto) 2, Estimat Glomerular Filtration Rate > 60, Glucose Level 110H, Hematocrit 29L, Hemoglobin 9.3L, Lymphocytes # (Auto) 2.3, Lymphocytes (%) (Auto) 18, Mean Corpuscular Hemoglobin 28, Mean Corpuscular Hemoglobin Concent 32, Mean Corpuscular Volume 87, Mean Platelet Volume 10.3, Monocytes # (Auto) 1.2H, Monocytes (%) (Auto) 9, Neutrophils # (Auto) 9.5H, Neutrophils (%) (Auto) 72, Platelet Count 386, Potassium Level 4.2, Red Blood Count 3.33L, Red Cell Distribution Width 16.6H, Sodium Level 135, Total Bilirubin 1.2H, Total Protein 5.4L, White Blood Count 13.2H Assessment/Plan Assessment Intertrochanteric hip frx rt s/p repair ortho Oversedation due to meds-improved with hold on requip and gabapentin Cognitive impairment =multifactorial Dysphagia diet adjusted Diverting colostomy Chronic back pain with Vertebral compression fractures s/p KEVYN on an outpatient basis pOSTOP anemia s/p transfusion Constipation on meds Plan Continue PT/OT/ST Continue toHold neurontin F/U with Hospitalist and Ortho Recheck Labs Resume Requip Pain Management See orders LEXUS CHOWDHURY MD Apr 01, 2016 08:55
--- NOTE | 2016-04-01 10:12 | Physical Therapy Daily Note ---
PT Daily Note-Current Subjective Patient in chair finishing up breakfast pre tx, agrees to PT. Pain Numeric Pain Scale: 5-Moderate Pain Location: Right Location Body Site: Hip Appearance Patient in wheelchair post tx, has nurse call, phone, tray, all needs met. Has speech in just a few minutes. Mental Status Patient Orientation: Person, Place, Situation Attachments: Colostomy/Ileostomy Transfers Functional [place] Measure 0=Not Assessed/NA 4=Minimal Assistance 1=Total Assistance 5=Supervision or Setup 2=Maximal Assistance 6=Modified [place] 3=Moderate Assistance 7=Complete IndependenceIRFPAI Quality Coding Scale 6 Independent with activity with or without an assistive device 5 Patient requires set up or clean up by helper. Patient completes activity by themselves 4 Supervision or touching assist (CGA). [place] provide cues , steadying assist 3 The helper provides less than half the effort to complete the activity 2 The helper provides more than half the effort to complete the activity 1 Dependent. The helper does all the effort to complete an activity 7 Patient refused to complete or attempt activity 9 The patient did not perform the activity before the current illness or injury 88 Not attempted due to Medical conditions or safety concerns Transfers (B, C, W/C) (FIM): 3 Sit to/from Stand: 3 Bed to/from Chair: 3 Improved stand pivot. Patient's colostomy was not closed right and it opened and spilled on the floor and on the patient's legs. She will need changed and cleaned up. Gait Training Gait (FIM): 1 Distance: 10' Gait Level of Assist: 4 Gait Persons Needed: 1 Gait Assistive Device: FWW Patient attempted to walk several times but complained of dizziness after standing, she was only able to ambulate once for 10'. Wheelchair Training Does the Pt Use a Wheelchair?: Yes Wheelchair (FIM): 2 Distance: 50'x2 Wheelchair Level of Assist: 4 Type of Wheelchair: Manual Wheelchair adjusting for leg rests. Treatments Cleaned patient up and redressed her, wheelchair mobility, ambulation, transfers Assessment Current Status: Fair Progress Patient is making small gains but is not motivated. PT Short Term Goals Short Term Goals Time Frame: Apr 06, 2016 Transfers (B,C,W/C) (FIM): 4 Gait (FIM): 2 Gait Distance Comment: 50' Gait Level of Assist: 4 Gait Assistive Device: FWW Wheelchair Distance: 20' PT Chcf Goals Handle Attacher Goals PT Handle Attacher Goals Time Frame: Apr 20, 2016 Transfers (B,C,W/C) (FIM): 4 (CGA) Sit to Lying (QC): 4 Lying-Sitting on Side/Bed(QC): 4 Sit to Stand (QC): 4 Rollin Roll Left to Right (QC): 4 Chair/[id number] Xfer(QC): 4 Car Transfer (QC): 4 Does the Patient Walk: Yes Gait (FIM): 4 Distance: 150' Walk 10 feet (QC): 4 Walk 10ft-Uneven Surface(QC): 4 Walk 50ft with 2 Turns (QC): 4 Walk 150 ft (QC): 4 Gait Level of Assist: 4 (CGA) Gait Assistive Device: FWW Stairs (FIM): 2 # of Steps: 4 1 Step (curb) (QC): 4 4 Steps (QC): 4 12 Steps (QC): 88 Stairs Level Of Assist: 4 (CGA) Picking up an Object (QC): 88 PT Plan Problem List Problem List: Activity Tolerance, Functional Strength, Safety, Balance, Gait, Transfer, Bed Mobility, ROM Treatment/Plan Treatment Plan: Continue Plan of Care Treatment Plan: Bed Mobility, Education, Functional Activity Jose, Functional Strength, Group Therapy, Gait, Safety, Therapeutic Exercise, Transfers Treatment Duration: Apr 20, 2016 Visits Per Week: 10-11 Minutes/Day (M-F): 60-90 Minutes/Day (Sat/Hamm): 15-30 Safety Risks/Education Patient Education: Gait Training, Transfer Techniques, Correct Positioning, W/ C Management, Safety Issues Teaching Recipient: Patient Teaching Methods: Demonstration, Discussion Response to Teaching: Reinforcement Needed Time/GCodes Time In: 845 Time Out: 930 Total Billed Treatment Time: 45 Total Billed Treatment 1 visit GT 10 min WCH 15 min FA 20 min SHALINI GUY PT Apr 01, 2016 10:12
--- NOTE | 2016-04-01 10:55 | Speech Therapy Daily Note ---
Speech Daily Progress Note Subjective The patient was laying in bed upon entrance. The patient greeted the clinician appropriately and agreed to participate in cognitive treatment on this date. Objective Orientation: The patient was oriented to month and year independently. The patient required use of in-room white board for recall of day of week and date. Memory Strategies: External and internal memory strategies were discussed on this date. The patient stated she consistently uses a calendar to record appointments and checks the calendar every morning for recall. Additionally, the patient uses a pillbox which she fills every Monday and follows a daily and weekly routine consistently. Assessment Assessment Current Status: Fair Progress Treatment Plan Continue Plan of Care Communication Comprehension: 3 Expression: 4 Social Cognition Social Interaction: 3 Problem Solvin Memory: 3 Speech Short Term Goals Short Term Goals Short Term Goals 1. The patient will recall and demonstrate three functional memory strategies for use at home and throughout structured tasks. 2. The patient will demonstrate 80% accuracy with safety problem solving with mild clinician cueing. Time Frame-STG: Two Weeks Speech Detention Goals Detention Goals 1. The patient will demonstrate improved cognition for increased function and safety with ADL's in the least restrictive setting. Time Frame: Three Weeks Comprehension: 5 Expression: 5 Social Interaction: 5 Problem Solvin Memory: 5 Speech-Plan Treatment Plan Speech Therapy Treatment Plan: Continue Plan of Care Continue skilled cognitive therapy to focus on functional memory strategies. Treatment Duration: Apr 20, 2016 # of days/week Four to five Visits Per Week: Four to five Minutes/Day (M-F): 30 Rehab Potential: Fair Safety Risks/Education Teaching Recipient: Patient Teaching Methods: Demonstration, Handout, Discussion Response to Teaching: Verbalize Understanding, Reinforcement Needed Education Topics Provided: External and Internal Memory Strategies Time Speech Therapy Time In: 09:45 Speech Therapy Time Out: 10:15 Total Billed Time: 30 Billed Treatment Time ANNA Polanco ELIZABETH Apr 01, 2016 10:55
[2016-04-01] MEDS: RT-ADVAIR HFA 115/21 MCG PER PUFF IH SCH ×2 (11:05→19:34)
--- NOTE | 2016-04-01 11:32 | Progress Note-Hospitalist ---
Progress Note Progress Notes/Assess & Plan Date Seen 04/01/16 Diagonsis/Assessment & Plan Patient Interview: Pt states that she feels good currently but was unable to sleep well last night. Physical exam stable. Pt feels fatigued. Pt is having regular BMs. 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 Scribed by Venkata Flower under the direct supervision of Dr. Martinez. YSABEL MARTINEZ DO Apr 01, 2016 11:32
--- NOTE | 2016-04-01 13:22 | Therapy Group Daily Note ---
Therapy Daily Group Note Patient Education Topic Home Safety Other/Notes Patient attended therapy group for partial session. Pt complained throughout the time present and ultimately began to cry and insist on returning to her room. 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 Pt Seems to have some issues with being a part of the group therapy and was not comfortable being present, therefore she was returned to room. While in group the discussion consisted of safety education in the kitchen as well as patient participation in adaptive devices they have found to work in the kitchen. this patient did listen and seem to acknowledge the information but did not verbally participate. Pt will receive the remainder of her therapy this date 1 on . Fair participation. Start Time: 12:00 Stop Time: 12:30 Total Billed Treatment Time: 30 Total Billed Treatment visit Group 30 GRACE CERNA PT Apr 01, 2016 13:22
--- NOTE | 2016-04-01 14:22 | Occupational Ther Daily Note ---
OT Current Status-Daily Note Subjective Pt seen in room, in bed, reluctantly agreeable to OT. Frequently asked to get back in to bed. Pt reported pain but did not rate or describe it. Appearance Alternated smiling and laughing with wanting to go back to bed Mental Status/Objective Functional [place] Measure 0=Not Assessed/NA 4=Minimal Assistance 1=Total Assistance 5=Supervision or Setup 2=Maximal Assistance 6=Modified [place] 3=Moderate Assistance 7=Complete [place] ADL-Treatment Functional [place] Measure 0=Not Assessed/NA 4=Minimal Assistance 1=Total Assistance 5=Supervision or Setup 2=Maximal Assistance 6=Modified [place] 3=Moderate Assistance 7=Complete IndependenceIRFPAI Quality Coding Scale 6 Independent with activity with or without an assistive device 5 Patient requires set up or clean up by helper. Patient completes activity by themselves 4 Supervision or touching assist (CGA). [place] provide cues , steadying assist 3 The helper provides less than half the effort to complete the activity 2 The helper provides more than half the effort to complete the activity 1 Dependent. The helper does all the effort to complete an activity 7 Patient refused to complete or attempt activity 9 The patient did not perform the activity before the current illness or injury 88 Not attempted due to Medical conditions or safety concerns Grooming (FIM): 5 (Washed face and hands with setup. ) Bathing (FIM): 3 (Pt washed all parts except lower legs and bottom with sponge bath, setup. needed mod assist to come to standing but then CGA to maintain standing to wash kar area.) Shower/Bathe Self (QC): 3 Upper Body (FIM): 5 (setup) Lower Body Dressing (FIM): 3 (Pt was unable to get pants on over feet but did attempt to place L foot into pants. Mod assist to stand, FWW. Was able to help pull pants up with CGA, once up. ) Transfers (B, C, W/C) (FIM): 4 (Pt needed min assist to move R leg when moving from supine to sitting EOB. Was able to scoot up in bed and scoot forward with encouragement and skilled cues for sequencing. ) Other Treatment Pt declined to go to sink to clean her teeth. Also declined to stay up in w/c for group so was assisted back into bed. Left in bed, all needs met. 4 rails up OT Short Term Goals Short Term Goals Time Frame: Apr 06, 2016 Lower Body Dressing(FIM): 3 Toileting(FIM): 3 Transfers (B,C,W/C) (FIM): 4 Toilet/Commode Transfer(FIM): 3 Shower Transfer(FIM): 3 Additional Short Term Goals: 2-Verbalize Understanding, 3-ImproveStrength/Jose 1=Demonstrate adherence to instructed precautions during ADL tasks. 2=Patient will verbalize/demonstrate understanding of assistive devices/ modifications for ADL. 3=Patient will improve strength/tolerance for activity to enable patient to perform ADL's. OT Prison Goals Cooling Machine Operator Goals Time Frame: Apr 20, 2016 Eating (FIM): 6 Eating (QC): 6 Groomin Oral Hygiene (QC): 6 Bathing(FIM): 5 Shower/Bathe Self (QC): 5 Upper Body Dressing(FIM): 6 Upper Body Dressing (QC): 6 Lower Body Dressing(FIM): 5 (setup) Lower Body Dressing (QC): 5 On/Off Footwear (QC): 5 (setup) Toileting(FIM): 6 Toileting Hygiene (QC): 6 Toilet/Commode Transfer(FIM): 6 Toilet/Commode Transfer (QC): 6 Shower Transfer(FIM): 6 Comprehension(FIM): 5 Expression (FIM): 5 Social Interaction(FIM): 5 Problem Solving(FIM): 5 Memory(FIM): 5 Additional Goals: 2-Verbalize Understanding, 3-ImproveStrength/Jose 1=Demonstrate adherence to instructed precautions during ADL tasks. 2=Patient will verbalize/demonstrate understanding of assistive devices/ modifications for ADL. 3=Patient will improve strength/tolerance for activity to enable patient to perform ADL's. OT Education/Plan Problem List/Assessment Pt would benefit from skilled OT to increase her independence in basic self care to allow her to return safely to her own home to live alone, with supplemental caretakers, and to decrease caregiver burden. Discharge Recommendations Plan/Recommendations: Continue POC Treatment Plan/Plan of Care Patient would benefit from OT for education, treatment and training to promote independence in ADL's, mobility, safety and/or upper extremity function for ADL' s. Plan of Care: ADL Retraining, Functional Mobility, Group Exercise/Act as Ind ( exercise, education, functional activities, activity tolerance, memory) Treatment Duration: Apr 20, 2016 Visits Per Week: 10-11 Minutes/Day (M-F): 75-90 Minutes/Day (Sat/Hamm): PRN Agreement: Yes Rehab Potential: Fair Time/GCodes Start Time: 11:00 Stop Time: 11:45 Total Time Billed (hr/min): 45 Billed Treatment Time visit, 45 minutes SHAR CROW OT Apr 01, 2016 14:22
--- NOTE | 2016-04-01 14:53 | Physical Therapy Daily Note ---
PT Daily Note-Current Subjective Patient reluctantly agrees to PT. Pain Numeric Pain Scale: 5-Moderate Pain Location: Right Location Body Site: Hip Pain Description: Ache Mental Status Patient Orientation: Person, Time, Situation Transfers Functional [place] Measure 0=Not Assessed/NA 4=Minimal Assistance 1=Total Assistance 5=Supervision or Setup 2=Maximal Assistance 6=Modified [place] 3=Moderate Assistance 7=Complete IndependenceIRFPAI Quality Coding Scale 6 Independent with activity with or without an assistive device 5 Patient requires set up or clean up by helper. Patient completes activity by themselves 4 Supervision or touching assist (CGA). [place] provide cues , steadying assist 3 The helper provides less than half the effort to complete the activity 2 The helper provides more than half the effort to complete the activity 1 Dependent. The helper does all the effort to complete an activity 7 Patient refused to complete or attempt activity 9 The patient did not perform the activity before the current illness or injury 88 Not attempted due to Medical conditions or safety concerns Transfers (B, C, W/C) (FIM): 4 Scootin Supine to/from Sit: 4 Sit to/from Stand: 4 Sit to Lying (QC): 4 Sit to Stand (QC): 4 Chair/Udw-bw-Aldqs Xfer(QC): 4 Weight Bearing Weight Bearing Restriction: Weight Bearing/Tolerated Location Restriction: R LE Gait Training Does the Patient Walk?: Yes Gait (FIM): 1 Distance (FIM): 1=up to 49 ft Distance: 15' x 4 Walk 10 feet (QC): 4 Gait Level of Assist: 4 Gait Persons Needed: 1 Gait Assistive Device: FWW antalgic Exercises Supine Ex: Ankle pumps, Quad Set, Heel Slides, Straight leg raise Supine Reps: 20 Assessment Patient displays increase negative behaviors with family present. Patient requires time to complete all functional tasks. PT Short Term Goals Short Term Goals Time Frame: Apr 06, 2016 Transfers (B,C,W/C) (FIM): 4 Gait (FIM): 2 Gait Distance Comment: 50' Gait Level of Assist: 4 Gait Assistive Device: FWW Wheelchair Distance: 50'x2 PT Technical Support Technician Goals [facility] Goals PT Technical Support Technician Goals Time Frame: Apr 20, 2016 Transfers (B,C,W/C) (FIM): 4 (CGA) Sit to Lying (QC): 4 Lying-Sitting on Side/Bed(QC): 4 Sit to Stand (QC): 4 Rollin Roll Left to Right (QC): 4 Chair/Cjl-ft-Ahhxx Xfer(QC): 4 Car Transfer (QC): 4 Does the Patient Walk: Yes Gait (FIM): 4 Distance: 150' Walk 10 feet (QC): 4 Walk 10ft-Uneven Surface(QC): 4 Walk 50ft with 2 Turns (QC): 4 Walk 150 ft (QC): 4 Gait Level of Assist: 4 (CGA) Gait Assistive Device: FWW Stairs (FIM): 2 # of Steps: 4 1 Step (curb) (QC): 4 4 Steps (QC): 4 12 Steps (QC): 88 Stairs Level Of Assist: 4 (CGA) Picking up an Object (QC): 88 PT Plan Treatment/Plan Treatment Plan: Continue Plan of Care Treatment Plan: Bed Mobility, Education, Functional Activity Jose, Functional Strength, Group Therapy, Gait, Safety, Therapeutic Exercise, Transfers Treatment Duration: Apr 20, 2016 Visits Per Week: 10-11 Minutes/Day (M-F): 60-90 Minutes/Day (Sat/Hamm): 15-30 Time/GCodes Time In: 1355 Time Out: 1425 Total Billed Treatment Time: 30 Total Billed Treatment 1 visit [facility] 15 min EX 15 min ORTEGA MATIAS PT Apr 01, 2016 14:53
[2016-04-01 18:14] VITALS: BP 155/85
[2016-04-01] MEDS: rOPINIRole 1 MG (REQUIP) TABLET PO SCH (20:58)
[2016-04-01] MEDS: TEMAZEPAM 15 MG (RESTORIL) CAP PO SCH (20:58)
[2016-04-02] MEDS: oxyCODONE/APAP 10/325MG (PERCOCET 10) TABLET PO PRN ×3 (03:28→18:07)
[2016-04-02 05:51] VITALS: BP 152/90
[2016-04-02] MEDS: PANTOPRAZOLE 40 MG (PROTONIX) TAB PO SCH ×2 (06:29→20:06)
[2016-04-02] MEDS: LEVOTHYROXINE 100 MCG (LEVOTHROID) TAB PO SCH (06:29)
[2016-04-02] MEDS: SUCRALFATE 1 GM (CARAFATE) TAB PO SCH ×4 (06:29→20:06)
[2016-04-02] MEDS: LORazepam 1 MG (ATIVAN) TAB PO SCH ×2 (06:29→16:40)
[2016-04-02] MEDS: eZETimibe 10 MG (ZETIA) TABLET PO SCH (08:28)
[2016-04-02] MEDS: LACTULOSE SYRUP 10GM/15ML (ENULOSE) 30ML UDC PO SCH ×5 (08:28→20:10)
[2016-04-02] MEDS: ASPIRIN E.C. 81 MG (ECOTRIN) TAB PO SCH (08:28)
[2016-04-02] MEDS: DULoxetine 30 MG (CYMBALTA) CAP PO SCH (08:28)
[2016-04-02] MEDS: meTOproloL SUCCINATE 50 MG (TOPROL XL) TAB PO SCH (08:28)
[2016-04-02] MEDS: CLOPIDOGREL 75 MG (PLAVIX) TABLET PO SCH (08:28)
[2016-04-02] MEDS: ARTIFICAL TEARS 0.4 ML UNIT DOSE (REFRESH PLUS) OU SCH ×2 (08:29→20:06)
[2016-04-02] MEDS: RT-ADVAIR HFA 115/21 MCG PER PUFF IH SCH ×2 (09:57→20:06)
--- NOTE | 2016-04-02 11:42 | Physical Therapy Daily Note ---
PT Daily Note-Current Subjective Pt laying slightly to L side upon arrival. Pt asked for repositioning due to uncomfortable. Pt agreed to be seen despite pain. Pain Numeric Pain Scale: 7 Location: Right, Incisional Location Body Site: Thigh Pain Description: Ache, Tightness Mental Status Patient Orientation: Person, Place, Time, Situation Transfers Functional [place] Measure 0=Not Assessed/NA 4=Minimal Assistance 1=Total Assistance 5=Supervision or Setup 2=Maximal Assistance 6=Modified [place] 3=Moderate Assistance 7=Complete IndependenceIRFPAI Quality Coding Scale 6 Independent with activity with or without an assistive device 5 Patient requires set up or clean up by helper. Patient completes activity by themselves 4 Supervision or touching assist (CGA). [place] provide cues , steadying assist 3 The helper provides less than half the effort to complete the activity 2 The helper provides more than half the effort to complete the activity 1 Dependent. The helper does all the effort to complete an activity 7 Patient refused to complete or attempt activity 9 The patient did not perform the activity before the current illness or injury 88 Not attempted due to Medical conditions or safety concerns Rollin Exercises Supine Ex: Ankle pumps, Rolling, Heel Slides, Straight leg raise Supine Reps: 10 Treatments Pt reports pain on R thigh at incision site as well as nausea. PT reported pain and nausea to nurse and she gave pain and nausea med. Pt attempts supine EX but discontinued due to pt's complaint of pain. Pt asked to be rolled more toward L side. PT repositioned pillow to further pt to L side. Pt left with all needs met at end of tx. Assessment Current Status: Fair Progress Pt seems unmotivated for PT. PT educates pt on benefit of PT. PT Short Term Goals Short Term Goals Time Frame: Apr 06, 2016 Transfers (B,C,W/C) (FIM): 4 Gait (FIM): 2 Gait Distance Comment: 50' Gait Level of Assist: 4 Gait Assistive Device: FWW Wheelchair Distance: 50'x2 PT Caustic Mixer Goals Retirement Goals PT Retirement Goals Time Frame: Apr 20, 2016 Transfers (B,C,W/C) (FIM): 4 (CGA) Sit to Lying (QC): 4 Lying-Sitting on Side/Bed(QC): 4 Sit to Stand (QC): 4 Rollin Roll Left to Right (QC): 4 Chair/Usc-bh-Fonnj Xfer(QC): 4 Car Transfer (QC): 4 Does the Patient Walk: Yes Gait (FIM): 4 Distance: 150' Walk 10 feet (QC): 4 Walk 10ft-Uneven Surface(QC): 4 Walk 50ft with 2 Turns (QC): 4 Walk 150 ft (QC): 4 Gait Level of Assist: 4 (CGA) Gait Assistive Device: FWW Stairs (FIM): 2 # of Steps: 4 1 Step (curb) (QC): 4 4 Steps (QC): 4 12 Steps (QC): 88 Stairs Level Of Assist: 4 (CGA) Picking up an Object (QC): 88 PT Plan Problem List Problem List: Activity Tolerance, Functional Strength, Safety, Balance, Gait, Transfer, Bed Mobility Treatment/Plan Treatment Plan: Continue Plan of Care Treatment Plan: Bed Mobility, Education, Functional Activity Jose, Functional Strength, Group Therapy, Gait, Safety, Therapeutic Exercise, Transfers Treatment Duration: Apr 20, 2016 Visits Per Week: 10-11 Minutes/Day (M-F): 60-90 Minutes/Day (Sat/Hamm): 15-30 Safety Risks/Education Patient Education: Transfer Techniques, Reviewed Precautions, Correct Positioning, Safety Issues Teaching Recipient: Patient Teaching Methods: Discussion Response to Teaching: Verbalize Understanding Time/GCodes Time In: 1100 Time Out: 1125 Total Billed Treatment Time: 25 Total Billed Treatment visit, FA (25m) CLIFTON MEAD PTA Apr 02, 2016 11:42
[2016-04-02 17:58] VITALS: BP 126/79
[2016-04-02] MEDS: rOPINIRole 1 MG (REQUIP) TABLET PO SCH (20:06)
[2016-04-02] MEDS: TEMAZEPAM 15 MG (RESTORIL) CAP PO SCH (20:06)
[2016-04-03] MEDS: oxyCODONE/APAP 10/325MG (PERCOCET 10) TABLET PO PRN ×2 (00:31→16:50)
[2016-04-03 05:27] VITALS: BP 139/80
[2016-04-03] MEDS: PANTOPRAZOLE 40 MG (PROTONIX) TAB PO SCH ×2 (06:12→20:39)
[2016-04-03] MEDS: LEVOTHYROXINE 100 MCG (LEVOTHROID) TAB PO SCH (06:12)
[2016-04-03] MEDS: LORazepam 1 MG (ATIVAN) TAB PO SCH ×2 (06:12→16:50)
[2016-04-03] MEDS: SUCRALFATE 1 GM (CARAFATE) TAB PO SCH ×4 (06:12→20:38)
[2016-04-03] MEDS: LACTULOSE SYRUP 10GM/15ML (ENULOSE) 30ML UDC PO SCH ×4 (09:00→20:39)
[2016-04-03] MEDS: DULoxetine 30 MG (CYMBALTA) CAP PO SCH (09:12)
[2016-04-03] MEDS: ASPIRIN E.C. 81 MG (ECOTRIN) TAB PO SCH (09:12)
[2016-04-03] MEDS: CLOPIDOGREL 75 MG (PLAVIX) TABLET PO SCH (09:12)
[2016-04-03] MEDS: eZETimibe 10 MG (ZETIA) TABLET PO SCH (09:12)
[2016-04-03] MEDS: ARTIFICAL TEARS 0.4 ML UNIT DOSE (REFRESH PLUS) OU SCH ×2 (09:12→20:38)
[2016-04-03] MEDS: meTOproloL SUCCINATE 50 MG (TOPROL XL) TAB PO SCH (09:12)
[2016-04-03] MEDS: RT-ADVAIR HFA 115/21 MCG PER PUFF IH SCH ×2 (09:18→19:42)
[2016-04-03 17:25] VITALS: BP 135/78
[2016-04-03] MEDS: rOPINIRole 1 MG (REQUIP) TABLET PO SCH (20:39)
[2016-04-03] MEDS: TEMAZEPAM 15 MG (RESTORIL) CAP PO SCH (20:40)
[2016-04-04] MEDS: oxyCODONE/APAP 10/325MG (PERCOCET 10) TABLET PO PRN ×2 (00:05→09:27)
[2016-04-04 06:00] VITALS: BP 148/82
[2016-04-04] MEDS: PANTOPRAZOLE 40 MG (PROTONIX) TAB PO SCH ×2 (06:03→20:18)
[2016-04-04] MEDS: LEVOTHYROXINE 100 MCG (LEVOTHROID) TAB PO SCH (06:03)
[2016-04-04] MEDS: SUCRALFATE 1 GM (CARAFATE) TAB PO SCH ×4 (06:03→20:18)
[2016-04-04] MEDS: LORazepam 1 MG (ATIVAN) TAB PO SCH ×2 (06:03→16:50)
[2016-04-04] MEDS: RT-ADVAIR HFA 115/21 MCG PER PUFF IH SCH ×2 (06:33→19:22)
[2016-04-04] MEDS: DULoxetine 30 MG (CYMBALTA) CAP PO SCH (08:56)
[2016-04-04] MEDS: meTOproloL SUCCINATE 50 MG (TOPROL XL) TAB PO SCH (08:57)
[2016-04-04] MEDS: CLOPIDOGREL 75 MG (PLAVIX) TABLET PO SCH (08:57)
[2016-04-04] MEDS: ASPIRIN E.C. 81 MG (ECOTRIN) TAB PO SCH (08:57)
[2016-04-04] MEDS: ARTIFICAL TEARS 0.4 ML UNIT DOSE (REFRESH PLUS) OU SCH ×2 (08:57→20:19)
[2016-04-04] MEDS: eZETimibe 10 MG (ZETIA) TABLET PO SCH (08:57)
[2016-04-04] MEDS: LACTULOSE SYRUP 10GM/15ML (ENULOSE) 30ML UDC PO SCH ×4 (09:00→20:19)
--- NOTE | 2016-04-04 09:30 | Physical Therapy Daily Note ---
PT Daily Note-Current Subjective Patient in bed pre tx, reluctantly agrees to PT. Patient wants to do a list of other activities before starting therapy like combing her hair, drinking her milk, getting her meds, etc. Patient states she has pain of 9/10 in right hip. Appearance Patient in bed post tx with nurse call, phone, tray, all needs met. Therapist explained to patient that she needs to be ready for PT. She has a schedule and she can look when she is going to be busy and needs to anticipate and be ready so we can get more physical therapy done instead of toileting and stuff. Patient seems upset at this information. Mental Status Patient Orientation: Person, Place, Situation Attachments: Colostomy/Ileostomy Transfers Functional [place] Measure 0=Not Assessed/NA 4=Minimal Assistance 1=Total Assistance 5=Supervision or Setup 2=Maximal Assistance 6=Modified [place] 3=Moderate Assistance 7=Complete IndependenceIRFPAI Quality Coding Scale 6 Independent with activity with or without an assistive device 5 Patient requires set up or clean up by helper. Patient completes activity by themselves 4 Supervision or touching assist (CGA). [place] provide cues , steadying assist 3 The helper provides less than half the effort to complete the activity 2 The helper provides more than half the effort to complete the activity 1 Dependent. The helper does all the effort to complete an activity 7 Patient refused to complete or attempt activity 9 The patient did not perform the activity before the current illness or injury 88 Not attempted due to Medical conditions or safety concerns Transfers (B, C, W/C) (FIM): 3 Scootin Rollin Supine to/from Sit: 3 Sit to/from Stand: 3 Bed to/from Chair: 3 Patient needs a lot of cues and direction on how to push up with her arms to stand. This was practiced many times. She tends to push up with arms but still leans backward and cannot stand without assist from there. Gait Training Patient attempted to ambulate but immediately urinated in her brief upon standing and insisted on going back to her room to get changed. Wheelchair Training Does the Pt Use a Wheelchair?: Yes Wheelchair (FIM): 5 Distance: 150' Wheelchair Level of Assist: 5 Type of Wheelchair: Manual Patient needs cues for direction, she often does not pay attention to where she is going and will run into the wall on the right side. Exercises Supine Ex: Ankle pumps, Quad Set, Glut sets Supine Reps: 20 Treatments bed mobility and transfer training, functional strengthening, wheelchair mobility, patient was changed and cleaned up Assessment Current Status: Poor Progress Patient is making little progress in mobility. PT Short Term Goals Short Term Goals Time Frame: Apr 06, 2016 Transfers (B,C,W/C) (FIM): 4 Gait (FIM): 2 Gait Distance Comment: 50' Gait Level of Assist: 4 Gait Assistive Device: FWW Wheelchair Distance: 50'x2 PT Public Health Dietitian Goals Public Health Dietitian Goals PT Longterm Goals Time Frame: Apr 20, 2016 Transfers (B,C,W/C) (FIM): 4 (CGA) Sit to Lying (QC): 4 Lying-Sitting on Side/Bed(QC): 4 Sit to Stand (QC): 4 Rollin Roll Left to Right (QC): 4 Chair/Lqh-rq-Tkbtn Xfer(QC): 4 Car Transfer (QC): 4 Does the Patient Walk: Yes Gait (FIM): 4 Distance: 150' Walk 10 feet (QC): 4 Walk 10ft-Uneven Surface(QC): 4 Walk 50ft with 2 Turns (QC): 4 Walk 150 ft (QC): 4 Gait Level of Assist: 4 (CGA) Gait Assistive Device: FWW Stairs (FIM): 2 # of Steps: 4 1 Step (curb) (QC): 4 4 Steps (QC): 4 12 Steps (QC): 88 Stairs Level Of Assist: 4 (CGA) Picking up an Object (QC): 88 PT Plan Problem List Problem List: Activity Tolerance, Functional Strength, Safety, Balance, Gait, Transfer, Bed Mobility, ROM Treatment/Plan Treatment Plan: Continue Plan of Care Treatment Plan: Bed Mobility, Education, Functional Activity Jose, Functional Strength, Group Therapy, Gait, Safety, Therapeutic Exercise, Transfers Treatment Duration: Apr 20, 2016 Visits Per Week: 10-11 Minutes/Day (M-F): 60-90 Minutes/Day (Sat/Hamm): 15-30 Safety Risks/Education Patient Education: Transfer Techniques, Correct Positioning, W/C Management, Safety Issues Teaching Recipient: Patient Teaching Methods: Demonstration, Discussion Response to Teaching: Reinforcement Needed Time/GCodes Time In: 845 Time Out: 930 Total Billed Treatment Time: 45 Total Billed Treatment 1 visit [facility] 15 min EX 10 min FA 20 min SHALINI GUY PT Apr 04, 2016 09:30
--- NOTE | 2016-04-04 11:22 | Occupational Ther Daily Note ---
OT Current Status-Daily Note Subjective Pt seen in room, in bed, requires much encouragement to participate. No pain mentioned Appearance Alert, reluctantly cooperative Mental Status/Objective Functional [place] Measure 0=Not Assessed/NA 4=Minimal Assistance 1=Total Assistance 5=Supervision or Setup 2=Maximal Assistance 6=Modified [place] 3=Moderate Assistance 7=Complete [place] ADL-Treatment Functional [place] Measure 0=Not Assessed/NA 4=Minimal Assistance 1=Total Assistance 5=Supervision or Setup 2=Maximal Assistance 6=Modified [place] 3=Moderate Assistance 7=Complete IndependenceIRFPAI Quality Coding Scale 6 Independent with activity with or without an assistive device 5 Patient requires set up or clean up by helper. Patient completes activity by themselves 4 Supervision or touching assist (CGA). [place] provide cues , steadying assist 3 The helper provides less than half the effort to complete the activity 2 The helper provides more than half the effort to complete the activity 1 Dependent. The helper does all the effort to complete an activity 7 Patient refused to complete or attempt activity 9 The patient did not perform the activity before the current illness or injury 88 Not attempted due to Medical conditions or safety concerns Other Treatment Pt refused any ADLs and turned head, asking to just rest. pt did agree to do exercises in bed. Very distracted by wanting to call friends on the phone. Pt did 20 squeezes and 10 pinches bilat with pink (medium) sponge but was not able to track repetitions herself and needed skilled assistance to do exercises correctly. Also did 10 reps bilat UE ex with 2# weight. Pt needed help to do exercises correctly and to maintain quality of movement. Also was not able to stop when she reached 10 reps, even with cues at the start of each exercise. Did not move arms through full range with weights. Pt frequently stopped to look up a phone number or ask about someone. Pt did not recall having speech therapy immediately before OT. Pt left up in bed, 4 rails up, waiting for lunch. Education OT Patient Education: Exercise program, Progress toward Goal/Update tx plan Teaching Recipient: Patient Teaching Methods: Demonstration, Discussion Response to Teaching: Reinforcement Needed OT Short Term Goals Short Term Goals Time Frame: Apr 06, 2016 Lower Body Dressing(FIM): 3 Toileting(FIM): 3 Transfers (B,C,W/C) (FIM): 4 Toilet/Commode Transfer(FIM): 3 Shower Transfer(FIM): 3 Additional Short Term Goals: 2-Verbalize Understanding, 3-ImproveStrength/Jose 1=Demonstrate adherence to instructed precautions during ADL tasks. 2=Patient will verbalize/demonstrate understanding of assistive devices/ modifications for ADL. 3=Patient will improve strength/tolerance for activity to enable patient to perform ADL's. OT Almond Paste Molder Goals Almond Paste Molder Goals Time Frame: Apr 20, 2016 Eating (FIM): 6 Eating (QC): 6 Groomin Oral Hygiene (QC): 6 Bathing(FIM): 5 Shower/Bathe Self (QC): 5 Upper Body Dressing(FIM): 6 Upper Body Dressing (QC): 6 Lower Body Dressing(FIM): 5 (setup) Lower Body Dressing (QC): 5 On/Off Footwear (QC): 5 (setup) Toileting(FIM): 6 Toileting Hygiene (QC): 6 Toilet/Commode Transfer(FIM): 6 Toilet/Commode Transfer (QC): 6 Shower Transfer(FIM): 6 Comprehension(FIM): 5 Expression (FIM): 5 Social Interaction(FIM): 5 Problem Solving(FIM): 5 Memory(FIM): 5 Additional Goals: 2-Verbalize Understanding, 3-ImproveStrength/Jose 1=Demonstrate adherence to instructed precautions during ADL tasks. 2=Patient will verbalize/demonstrate understanding of assistive devices/ modifications for ADL. 3=Patient will improve strength/tolerance for activity to enable patient to perform ADL's. OT Education/Plan Problem List/Assessment Pt would benefit from skilled OT to increase her independence in basic self care to allow her to return safely to her own home to live alone, with supplemental caretakers, and to decrease caregiver burden. Discharge Recommendations Plan/Recommendations: Continue POC Treatment Plan/Plan of Care Patient would benefit from OT for education, treatment and training to promote independence in ADL's, mobility, safety and/or upper extremity function for ADL' s. Plan of Care: ADL Retraining, Functional Mobility, Group Exercise/Act as Ind ( exercise, education, functional activities, activity tolerance, memory) Treatment Duration: Apr 20, 2016 Visits Per Week: 10-11 Minutes/Day (M-F): 75-90 Minutes/Day (Sat/Hamm): PRN Agreement: Yes Rehab Potential: Fair Time/GCodes Start Time: 10:00 Stop Time: 10:46 Total Time Billed (hr/min): 46 Billed Treatment Time visit, 46 minutes exercise SHAR GALLARDO OT Apr 04, 2016 11:22
--- NOTE | 2016-04-04 13:30 | Speech Therapy Daily Note ---
Speech Daily Progress Note Subjective The patient was seated upright in bed upon entrance. Per nursing, the patient has recently complained of her food consistency (mechanically soft), refusing to eat at meal times. Due to this, the clinician visited with the patient regarding the consistency prior to cognitive treatment. The clinician recalled two episodes of choking on solid consistencies with the patient, who also verbalized recall of these occurrences. The rationale for the recommendation was thoroughly discussed with the patient. As the patient has demonstrated recent choking on solid consistencies, the clinician does not recommend an upgrade of her diet at this time. Objective The patient was re-administered the Jose Cognitive Assessment (MoCA) to assess for improvement - Executive Functioning/ Visuospatial: The patient was able to accurately draw a contour of a clock, provide numbers, and transcribe the accurate time. The patient was unable to complete trail-making or cube copying. - Naming: The patient was able to accurately identify three of three pictures. - Memory: The patient was able to immediately recall five of five single words. The patient was able to recall one of five single words following a five minute interval. - Attention: The patient was able to repeat five digits immediately, however, was unable and identify a specific letter or complete serial subtraction. - Language: The patient was able to repeat short phrases immediately. - Abstraction: The patient was able to identify a similarity between two single words with 50% accuracy. - Orientation: The patient was oriented to year, place, city, month, and day of week. The patient stated the date was the 7th. The patient demonstrated a result of +17/30 which correlates to a moderate cognitive impairment. The patient's results are similar to the previous week. Assessment Assessment Current Status: Fair Progress Treatment Plan Continue Plan of Care Communication Comprehension: 3 Expression: 4 Social Cognition Social Interaction: 3 Problem Solvin Memory: 3 Speech Short Term Goals Short Term Goals Short Term Goals 1. The patient will recall and demonstrate three functional memory strategies for use at home and throughout structured tasks. 2. The patient will demonstrate 80% accuracy with safety problem solving with mild clinician cueing. Time Frame-STG: Two Weeks Speech Detention Goals Sexer Goals 1. The patient will demonstrate improved cognition for increased function and safety with ADL's in the least restrictive setting. Time Frame: Three Weeks Comprehension: 5 Expression: 5 Social Interaction: 5 Problem Solvin Memory: 5 Speech-Plan Treatment Plan Speech Therapy Treatment Plan: Continue Plan of Care Continue skilled cognitive therapy for functional memory and problem solving strategies. Treatment Duration: Apr 20, 2016 # of days/week Four to Five. Visits Per Week: Four to five Minutes/Day (M-F): 30 Rehab Potential: Fair Safety Risks/Education Teaching Recipient: Patient Teaching Methods: Discussion Response to Teaching: Verbalize Understanding, Reinforcement Needed Education Topics Provided: Previously recommended swallowing strategies, Risks of aspiration Time Speech Therapy Time In: 09:30 Speech Therapy Time Out: 10:00 Total Billed Time: 30 Billed Treatment Time 1ANNA ELIZABETH ST Apr 04, 2016 13:30
--- NOTE | 2016-04-04 13:47 | Occupational Ther Daily Note ---
OT Current Status-Daily Note Subjective Pt seen in room, asleep in bed, agreeable to OT, with encouragement. No pain mentioned. Appearance Easily awakened. Mental Status/Objective Functional [place] Measure 0=Not Assessed/NA 4=Minimal Assistance 1=Total Assistance 5=Supervision or Setup 2=Maximal Assistance 6=Modified [place] 3=Moderate Assistance 7=Complete [place] ADL-Treatment Functional [place] Measure 0=Not Assessed/NA 4=Minimal Assistance 1=Total Assistance 5=Supervision or Setup 2=Maximal Assistance 6=Modified [place] 3=Moderate Assistance 7=Complete IndependenceIRFPAI Quality Coding Scale 6 Independent with activity with or without an assistive device 5 Patient requires set up or clean up by helper. Patient completes activity by themselves 4 Supervision or touching assist (CGA). [place] provide cues , steadying assist 3 The helper provides less than half the effort to complete the activity 2 The helper provides more than half the effort to complete the activity 1 Dependent. The helper does all the effort to complete an activity 7 Patient refused to complete or attempt activity 9 The patient did not perform the activity before the current illness or injury 88 Not attempted due to Medical conditions or safety concerns Other Treatment Pt was convinced that this OT was involved in a conversation with her about the actresses Josette Epperson and Heather Leger (I was not). Pt was able to scoot to the edge of bed without any assistance. She sat EOB and did bilat UE exercises x 10 reps each with yellow theraband and exercise bar. When presented with the bar, she pulled back and said, "Are you going to hit me over the knees with that?" but understood, after explanation, that it was an exercise bar. Pt was not able to track repetitions and needed skilled cues to maintain correct positioning with the exercises. Exercises to help with transfers and standing during ADLs. Pt was able to get both legs back in bed herself and scoot toward the head of the bed without help. Pt left in bed, 4 rails up, all needs met. OT Short Term Goals Short Term Goals Time Frame: Apr 06, 2016 Lower Body Dressing(FIM): 3 Toileting(FIM): 3 Transfers (B,C,W/C) (FIM): 4 Toilet/Commode Transfer(FIM): 3 Shower Transfer(FIM): 3 Additional Short Term Goals: 2-Verbalize Understanding, 3-ImproveStrength/Jose 1=Demonstrate adherence to instructed precautions during ADL tasks. 2=Patient will verbalize/demonstrate understanding of assistive devices/ modifications for ADL. 3=Patient will improve strength/tolerance for activity to enable patient to perform ADL's. OT Correction Goals Hand Weaver Goals Time Frame: Apr 20, 2016 Eating (FIM): 6 Eating (QC): 6 Groomin Oral Hygiene (QC): 6 Bathing(FIM): 5 Shower/Bathe Self (QC): 5 Upper Body Dressing(FIM): 6 Upper Body Dressing (QC): 6 Lower Body Dressing(FIM): 5 (setup) Lower Body Dressing (QC): 5 On/Off Footwear (QC): 5 (setup) Toileting(FIM): 6 Toileting Hygiene (QC): 6 Toilet/Commode Transfer(FIM): 6 Toilet/Commode Transfer (QC): 6 Shower Transfer(FIM): 6 Comprehension(FIM): 5 Expression (FIM): 5 Social Interaction(FIM): 5 Problem Solving(FIM): 5 Memory(FIM): 5 Additional Goals: 2-Verbalize Understanding, 3-ImproveStrength/Jose 1=Demonstrate adherence to instructed precautions during ADL tasks. 2=Patient will verbalize/demonstrate understanding of assistive devices/ modifications for ADL. 3=Patient will improve strength/tolerance for activity to enable patient to perform ADL's. OT Education/Plan Problem List/Assessment Pt would benefit from skilled OT to increase her independence in basic self care to allow her to return safely to her own home to live alone, with supplemental caretakers, and to decrease caregiver burden. Discharge Recommendations Plan/Recommendations: Continue POC Treatment Plan/Plan of Care Patient would benefit from OT for education, treatment and training to promote independence in ADL's, mobility, safety and/or upper extremity function for ADL' s. Plan of Care: ADL Retraining, Functional Mobility, Group Exercise/Act as Ind ( exercise, education, functional activities, activity tolerance, memory) Treatment Duration: Apr 20, 2016 Visits Per Week: 10-11 Minutes/Day (M-F): 75-90 Minutes/Day (Sat/Hamm): PRN Agreement: Yes Rehab Potential: Fair Time/GCodes Start Time: 13:00 Stop Time: 13:30 Total Time Billed (hr/min): 30 Billed Treatment Time visit, 30 minutes exercise SHAR GALLARDO OT Apr 04, 2016 13:47
--- NOTE | 2016-04-04 15:04 | Physical Therapy Daily Note ---
PT Daily Note-Current Subjective Patient in bed pre tx, agrees to PT after some encouragement. Patient is not motivated to participate. Pain Numeric Pain Scale: 6 Location: Right Location Body Site: Hip Appearance Patient BTB post tx with nurse call, phone, tray, all needs met. Bed alarm on. Mental Status Patient Orientation: Confused Attachments: Colostomy/Ileostomy Transfers Functional [place] Measure 0=Not Assessed/NA 4=Minimal Assistance 1=Total Assistance 5=Supervision or Setup 2=Maximal Assistance 6=Modified [place] 3=Moderate Assistance 7=Complete IndependenceIRFPAI Quality Coding Scale 6 Independent with activity with or without an assistive device 5 Patient requires set up or clean up by helper. Patient completes activity by themselves 4 Supervision or touching assist (CGA). [place] provide cues , steadying assist 3 The helper provides less than half the effort to complete the activity 2 The helper provides more than half the effort to complete the activity 1 Dependent. The helper does all the effort to complete an activity 7 Patient refused to complete or attempt activity 9 The patient did not perform the activity before the current illness or injury 88 Not attempted due to Medical conditions or safety concerns Transfers (B, C, W/C) (FIM): 4 Scootin Rollin Supine to/from Sit: 4 Sit to/from Stand: 4 Bed to/from Chair: 4 Patient performs a stand pivot transfer with CGA now, and supine<->sit with min assist for right leg Exercises NuStep Minutes: 10 NuStep Workload: 4 Treatments bed mobility and transfer training, functional strengthening Assessment Current Status: Fair Progress Patient was very hard to keep on task and getting into and out of the bed and doing the transfer to her wheelchair twice took the majority of her therapy time. PT Short Term Goals Short Term Goals Time Frame: Apr 06, 2016 Transfers (B,C,W/C) (FIM): 4 Gait (FIM): 2 Gait Distance Comment: 50' Gait Level of Assist: 4 Gait Assistive Device: FWW Wheelchair Distance: 150' PT Operating Room Assistant Goals Operating Room Assistant Goals PT [facility] Goals Time Frame: Apr 20, 2016 Transfers (B,C,W/C) (FIM): 4 (CGA) Sit to Lying (QC): 4 Lying-Sitting on Side/Bed(QC): 4 Sit to Stand (QC): 4 Rollin Roll Left to Right (QC): 4 Chair/Lab-hx-Bedcy Xfer(QC): 4 Car Transfer (QC): 4 Does the Patient Walk: Yes Gait (FIM): 4 Distance: 150' Walk 10 feet (QC): 4 Walk 10ft-Uneven Surface(QC): 4 Walk 50ft with 2 Turns (QC): 4 Walk 150 ft (QC): 4 Gait Level of Assist: 4 (CGA) Gait Assistive Device: FWW Stairs (FIM): 2 # of Steps: 4 1 Step (curb) (QC): 4 4 Steps (QC): 4 12 Steps (QC): 88 Stairs Level Of Assist: 4 (CGA) Picking up an Object (QC): 88 PT Plan Problem List Problem List: Activity Tolerance, Functional Strength, Safety, Balance, Gait, Transfer, Bed Mobility, ROM Treatment/Plan Treatment Plan: Continue Plan of Care Treatment Plan: Bed Mobility, Education, Functional Activity Jose, Functional Strength, Group Therapy, Gait, Safety, Therapeutic Exercise, Transfers Treatment Duration: Apr 20, 2016 Visits Per Week: 10-11 Minutes/Day (M-F): 60-90 Minutes/Day (Sat/Hamm): 15-30 Safety Risks/Education Patient Education: Transfer Techniques, Correct Positioning, Safety Issues Teaching Recipient: Patient Teaching Methods: Demonstration, Discussion Response to Teaching: Reinforcement Needed Time/GCodes Time In: 1430 Time Out: 1500 Total Billed Treatment Time: 30 Total Billed Treatment 1 visit EX 10 min FA 20 min SHALINI GUY PT Apr 04, 2016 15:03
[2016-04-04 18:28] VITALS: BP 115/68
--- NOTE | 2016-04-04 20:13 | PM & R (SOAP) Progress Note ---
Subjective Subjective/Events-last exam Patient was seen in her room this evening asks about bruising on rt arm-RN reports due to transfusion IV infiltrate done on other floor Patient reassured SW requests GeriPsych eval due to depression Patient Min assist for transfers Objective Exam Last Set of Vital Signs Vital Signs Date Time Temp Pulse Resp B/P Pulse Ox O2 Delivery O2 Flow Rate FiO2 04/04/16 19:23 95 04/04/16 08:30 Room Air 04/04/16 06:00 97.8 76 18 148/82 Capillary Refill : I&O Intake and Output 04/04/16 00:00 Intake Total 980 ml Output Total 725 ml Balance 255 ml Intake Oral 980 ml Output Urine Total 175 ml Stool Total 550 ml # Voids 3 # Urine Diapers 3 General: Other (somewhat sedated but able to follow simple commands) HEENT: Atraumatic, PERRLA, EOMI, Mucous Memb Moist/[place] Neck: Supple, No JVD Lungs: Clear to Auscultation Heart: Regular Rate Abdomen: Normal Bowel Sounds, Soft, No Tenderness, Other (colostomy functioning ) Neuro: Other (generalized weakness more so at rt hip Cognitive impairment and dysphagia) Assessment/Plan Assessment Intertrochanteric hip frx rt s/p repair ortho Oversedation due to meds-improved with hold on requip and gabapentin Cognitive impairment =multifactorial-with a component of depression Dysphagia diet adjusted Diverting colostomy Chronic back pain with Vertebral compression fractures s/p KEVYN on an outpatient basis pOSTOP anemia s/p transfusion Constipation on meds Plan Continue PT/OT/ST Continue to Hold neurontin F/U with Hospitalist and Ortho Recheck Labs Resume Requip Pain Management Anette Psych eval See orders Next Team Conference 04/06/16 LEXUS CHOWDHURY MD Apr 04, 2016 20:13
[2016-04-04] MEDS: TEMAZEPAM 15 MG (RESTORIL) CAP PO SCH (20:18)
[2016-04-04] MEDS: rOPINIRole 1 MG (REQUIP) TABLET PO SCH (20:18)
[2016-04-05] MEDS: oxyCODONE/APAP 10/325MG (PERCOCET 10) TABLET PO PRN ×3 (00:34→18:47)
[2016-04-05 04:17] VITALS: BP 127/79
[2016-04-05] MEDS: SUCRALFATE 1 GM (CARAFATE) TAB PO SCH ×4 (05:32→21:49)
[2016-04-05] MEDS: PANTOPRAZOLE 40 MG (PROTONIX) TAB PO SCH ×2 (05:32→21:50)
[2016-04-05] MEDS: LEVOTHYROXINE 100 MCG (LEVOTHROID) TAB PO SCH (05:32)
[2016-04-05] MEDS: LORazepam 1 MG (ATIVAN) TAB PO SCH ×2 (05:32→16:51)
[2016-04-05] MEDS: DULoxetine 30 MG (CYMBALTA) CAP PO SCH (08:08)
[2016-04-05] MEDS: CLOPIDOGREL 75 MG (PLAVIX) TABLET PO SCH (08:08)
[2016-04-05] MEDS: ARTIFICAL TEARS 0.4 ML UNIT DOSE (REFRESH PLUS) OU SCH ×2 (08:08→21:50)
[2016-04-05] MEDS: eZETimibe 10 MG (ZETIA) TABLET PO SCH (08:08)
[2016-04-05] MEDS: meTOproloL SUCCINATE 50 MG (TOPROL XL) TAB PO SCH (08:08)
[2016-04-05] MEDS: ASPIRIN E.C. 81 MG (ECOTRIN) TAB PO SCH (08:09)
[2016-04-05] MEDS: RT-ADVAIR HFA 115/21 MCG PER PUFF IH SCH ×2 (08:26→19:29)
[2016-04-05] MEDS: LACTULOSE SYRUP 10GM/15ML (ENULOSE) 30ML UDC PO SCH ×4 (09:00→21:00)
--- NOTE | 2016-04-05 10:31 | Speech Therapy Daily Note ---
Speech Daily Progress Note Subjective The patient was seated upright in bed upon entrance. The patient greeted the clinician appropriately and agreed to participate in cognitive therapy on this date. Objective Assessment of Language-Related Functional Activities (JEANETH): Functional language activities that will be completed at home were initiated on this date. - Clock Reading: The patient was asked to state the time on an analog clock. The patient displayed 80% accuracy with this task, independently. - Solving Daily Math Problems: The patient displayed 10% accuracy with this task , requiring moderate clinician cueing and repetition of stimulus. Orientation: The patient is oriented to location, month, year, and day of week ( independently). Assessment Assessment Current Status: Fair Progress Treatment Plan Continue Plan of Care Communication Comprehension: 3 Expression: 4 Social Cognition Social Interaction: 3 Problem Solvin Memory: 3 Speech Short Term Goals Short Term Goals Short Term Goals 1. The patient will recall and demonstrate three functional memory strategies for use at home and throughout structured tasks. 2. The patient will demonstrate 80% accuracy with safety problem solving with mild clinician cueing. Time Frame-STG: Two Weeks Speech Usp Goals Usp Goals 1. The patient will demonstrate improved cognition for increased function and safety with ADL's in the least restrictive setting. Time Frame: Three Weeks Comprehension: 5 Expression: 5 Social Interaction: 5 Problem Solvin Memory: 5 Speech-Plan Treatment Plan Speech Therapy Treatment Plan: Continue Plan of Care Continue skilled cognitive therapy to focus on functional problem solving and memory strategies. Treatment Duration: Apr 20, 2016 # of days/week Four to five. Visits Per Week: Four to five Minutes/Day (M-F): 30 Rehab Potential: Fair Safety Risks/Education Teaching Recipient: Patient Teaching Methods: Discussion Response to Teaching: Verbalize Understanding, Return Demonstration Education Topics Provided: Orientation Strategies Time Speech Therapy Time In: 09:15 Speech Therapy Time Out: 09:45 Total Billed Time: 30 Billed Treatment Time 1, TARAN MATHEW Apr 05, 2016 10:31
--- NOTE | 2016-04-05 11:34 | Occupational Ther Daily Note ---
OT Current Status-Daily Note Subjective Pt seen in room, up in bed, agreeable to OT. Pt has been talking to pulp mill team leader from [facility]. Appearance Tearful, anxious, pt reported she was on "suicide watch because she was suicidal ". Information shared with Lory her RN and also shared to Lory by pt. Mental Status/Objective Functional [place] Measure 0=Not Assessed/NA 4=Minimal Assistance 1=Total Assistance 5=Supervision or Setup 2=Maximal Assistance 6=Modified [place] 3=Moderate Assistance 7=Complete [place] Attachments: Colostomy/Ileostomy ADL-Treatment Functional [place] Measure 0=Not Assessed/NA 4=Minimal Assistance 1=Total Assistance 5=Supervision or Setup 2=Maximal Assistance 6=Modified [place] 3=Moderate Assistance 7=Complete IndependenceIRFPAI Quality Coding Scale 6 Independent with activity with or without an assistive device 5 Patient requires set up or clean up by helper. Patient completes activity by themselves 4 Supervision or touching assist (CGA). [place] provide cues , steadying assist 3 The helper provides less than half the effort to complete the activity 2 The helper provides more than half the effort to complete the activity 1 Dependent. The helper does all the effort to complete an activity 7 Patient refused to complete or attempt activity 9 The patient did not perform the activity before the current illness or injury 88 Not attempted due to Medical conditions or safety concerns Toileting Hygiene (QC): 4 (Managed clothing with CGA, hygiene with setup. BSC, FWW) Upper Body (FIM): 5 (setup for gown. managed snaps without assistance) Lower Body Dressing (FIM): 4 (Help to get Depends over R foot, able to get it over L foot and pull to thighs. Stood min assist to pull pants up, FWW) Toilet Transfer (QC): 4 (min assist, BSC, FWW) Pt insisted on getting back in bed. She was able to move supine to sit EOB and back to supine by herself, with encouragement. Sit to stand from EOB mod assist , CGA stand to sit, FWW Other Treatment Pt left in bed, 4 rails up, all needs met. OT Short Term Goals Short Term Goals Time Frame: Apr 06, 2016 Lower Body Dressing(FIM): 3 Toileting(FIM): 3 Transfers (B,C,W/C) (FIM): 4 Toilet/Commode Transfer(FIM): 3 Shower Transfer(FIM): 3 Additional Short Term Goals: 2-Verbalize Understanding, 3-ImproveStrength/Jose 1=Demonstrate adherence to instructed precautions during ADL tasks. 2=Patient will verbalize/demonstrate understanding of assistive devices/ modifications for ADL. 3=Patient will improve strength/tolerance for activity to enable patient to perform ADL's. OT Jail Goals Internet Marketing Specialist Goals Time Frame: Apr 20, 2016 Eating (FIM): 6 Eating (QC): 6 Groomin Oral Hygiene (QC): 6 Bathing(FIM): 5 Shower/Bathe Self (QC): 5 Upper Body Dressing(FIM): 6 Upper Body Dressing (QC): 6 Lower Body Dressing(FIM): 5 (setup) Lower Body Dressing (QC): 5 On/Off Footwear (QC): 5 (setup) Toileting(FIM): 6 Toileting Hygiene (QC): 6 Toilet/Commode Transfer(FIM): 6 Toilet/Commode Transfer (QC): 6 Shower Transfer(FIM): 6 Comprehension(FIM): 5 Expression (FIM): 5 Social Interaction(FIM): 5 Problem Solving(FIM): 5 Memory(FIM): 5 Additional Goals: 2-Verbalize Understanding, 3-ImproveStrength/Jose 1=Demonstrate adherence to instructed precautions during ADL tasks. 2=Patient will verbalize/demonstrate understanding of assistive devices/ modifications for ADL. 3=Patient will improve strength/tolerance for activity to enable patient to perform ADL's. OT Education/Plan Problem List/Assessment Pt would benefit from skilled OT to increase her independence in basic self care to allow her to return safely to her own home to live alone, with supplemental caretakers, and to decrease caregiver burden. Discharge Recommendations Plan/Recommendations: Continue POC Treatment Plan/Plan of Care Patient would benefit from OT for education, treatment and training to promote independence in ADL's, mobility, safety and/or upper extremity function for ADL' s. Plan of Care: ADL Retraining, Functional Mobility, Group Exercise/Act as Ind ( exercise, education, functional activities, activity tolerance, memory) Treatment Duration: Apr 20, 2016 Visits Per Week: 10-11 Minutes/Day (M-F): 75-90 Minutes/Day (Sat/Hamm): PRN Agreement: Yes Rehab Potential: Fair Time/GCodes Start Time: 10:50 Stop Time: 11:20 Total Time Billed (hr/min): 30 Billed Treatment Time visit, 30 minutes ADL SHAR GALLARDO OT Apr 05, 2016 11:34
--- NOTE | 2016-04-05 12:15 | Physical Therapy Daily Note ---
PT Daily Note-Current Subjective " I am suicidal, I just want to ." nursing notified. "i'm afraid I might just hurt you." "i just want to go to [place]." Post treatment, pt hugged this therapist and apologized noting, "I've been so mean to you,please forgive me." Transfers Functional [place] Measure 0=Not Assessed/NA 4=Minimal Assistance 1=Total Assistance 5=Supervision or Setup 2=Maximal Assistance 6=Modified [place] 3=Moderate Assistance 7=Complete IndependenceIRFPAI Quality Coding Scale 6 Independent with activity with or without an assistive device 5 Patient requires set up or clean up by helper. Patient completes activity by themselves 4 Supervision or touching assist (CGA). [place] provide cues , steadying assist 3 The helper provides less than half the effort to complete the activity 2 The helper provides more than half the effort to complete the activity 1 Dependent. The helper does all the effort to complete an activity 7 Patient refused to complete or attempt activity 9 The patient did not perform the activity before the current illness or injury 88 Not attempted due to Medical conditions or safety concerns Pt is min assist with bed mobility with constant cues and education on performance and encouragement to participated. Pt slow with transfer and make frequent stops during transfer. Needs cues to stay on task. Gait Training Pt ambulated 7- 10 steps x 2 with FWW with CGA to transfer bed to from wheelchair. Pt sat in wheelchair for 30 minutes. before returning to bed. Treatments Transfers and education / encouragement to participate with threrapy. Assessment Pt waxes and wanes with participation and seems to be attention seeking. Limited participation and needs constant cues to stay on task and much encouragemnt to participate. Difficulty getting good and full participation with good benefit due to cognitive involvement that makes reasoning with pt difficult. Pt tears up frequently then may become angry or may decide to try to participate. Limited reasoning at this time. PT Short Term Goals Short Term Goals Time Frame: Apr 06, 2016 Transfers (B,C,W/C) (FIM): 4 Gait (FIM): 2 Gait Distance Comment: 50' Gait Level of Assist: 4 Gait Assistive Device: FWW Wheelchair Distance: 150' PT Residential Goals Screen Handler Goals PT Residential Goals Time Frame: Apr 20, 2016 Transfers (B,C,W/C) (FIM): 4 (CGA) Sit to Lying (QC): 4 Lying-Sitting on Side/Bed(QC): 4 Sit to Stand (QC): 4 Rollin Roll Left to Right (QC): 4 Chair/Fqd-ka-Epmpu Xfer(QC): 4 Car Transfer (QC): 4 Does the Patient Walk: Yes Gait (FIM): 4 Distance: 150' Walk 10 feet (QC): 4 Walk 10ft-Uneven Surface(QC): 4 Walk 50ft with 2 Turns (QC): 4 Walk 150 ft (QC): 4 Gait Level of Assist: 4 (CGA) Gait Assistive Device: FWW Stairs (FIM): 2 # of Steps: 4 1 Step (curb) (QC): 4 4 Steps (QC): 4 12 Steps (QC): 88 Stairs Level Of Assist: 4 (CGA) Picking up an Object (QC): 88 PT Plan Problem List Problem List: Activity Tolerance, Functional Strength, Safety, Balance, Gait, Transfer, Bed Mobility Treatment/Plan Treatment Plan: Continue Plan of Care Treatment Plan: Bed Mobility, Education, Functional Activity Jose, Functional Strength, Group Therapy, Gait, Safety, Therapeutic Exercise, Transfers Treatment Duration: Apr 20, 2016 Visits Per Week: 10-11 Minutes/Day (M-F): 60-90 Minutes/Day (Sat/Hamm): 15-30 Safety Risks/Education Patient Education: Gait Training, Transfer Techniques, Safety Issues Education on importance of participation. Unsure of ability to comprehend or follow through Time/GCodes Time In: 1120 Time Out: 1205 Total Billed Treatment Time: 45 Total Billed Treatment visit FA 45 GRACE CERNA PT Apr 05, 2016 12:15
--- NOTE | 2016-04-05 13:30 | PM & R (SOAP) Progress Note ---
Subjective Subjective/Events-last exam Patient was seen in her room this noonhour Discussed case with SW and RN Patient reports bad thoughts in her head and wants them to go away Patient wants to know how she can get to [address] and get stronger I encouraged her to participate in therapies.Discussed case with PT staff Patient participating in Group therapies this afternoon [facility] unit has assessed patient this AM from [facility].DR Martinez returns tomorrow and she will f /u Current meds reviewed. Review of Systems Neurological: : Other (depression anxiety) Objective Exam Last Set of Vital Signs Vital Signs Date Time Temp Pulse Resp B/P Pulse Ox O2 Delivery O2 Flow Rate FiO2 04/05/16 08:27 96 04/05/16 08:14 Room Air 04/05/16 04:17 98.7 67 18 127/79 Capillary Refill : I&O Intake and Output 04/05/16 00:00 Intake Total 1050 ml Output Total 550 ml Balance 500 ml Intake Oral 1050 ml Output Urine Total 400 ml Stool Total 150 ml # Voids 5 # Urine Diapers 1 # Bowel Movements 1 General: Other (somewhat sedated but able to follow simple commands) HEENT: Atraumatic, PERRLA, EOMI, Mucous Memb Moist/[place] Neck: Supple, No JVD Lungs: Clear to Auscultation Heart: Regular Rate Abdomen: Normal Bowel Sounds, Soft, No Tenderness, Other (colostomy functioning ) Neuro: Other (generalized weakness more so at rt hip Cognitive impairment and dysphagia) Assessment/Plan Assessment Intertrochanteric hip frx rt s/p repair ortho Oversedation due to meds-improved with hold on requip and gabapentin Cognitive impairment =multifactorial-with a component of depression Dysphagia diet adjusted Diverting colostomy Chronic back pain with Vertebral compression fractures s/p KEVYN on an outpatient basis pOSTOP anemia s/p transfusion Constipation on meds anxiety /depression on meds Plan Continue PT/OT/ST Continue to Hold neurontin F/U with Hospitalist and Ortho Recheck Labs Resume Requip Pain Management Anette Psych eval-done See orders Next Team Conference tomorrow 04/06/16 F/U with DR Martinez tomorrow re possible transfer to [facility]. LEXUS CHOWDHURY MD Apr 05, 2016 13:30
--- NOTE | 2016-04-05 14:42 | Occupational Ther Daily Note ---
OT Current Status-Daily Note Subjective Pt seen in gym after group. Reluctantly agreed to OT and frequently asked to go back to her room. Also asked for pain meds - info shared with nursing Appearance Alert, cooperative, easily distractible Mental Status/Objective Patient Orientation: Person, Confused Functional [place] Measure 0=Not Assessed/NA 4=Minimal Assistance 1=Total Assistance 5=Supervision or Setup 2=Maximal Assistance 6=Modified [place] 3=Moderate Assistance 7=Complete [place] ADL-Treatment Functional [place] Measure 0=Not Assessed/NA 4=Minimal Assistance 1=Total Assistance 5=Supervision or Setup 2=Maximal Assistance 6=Modified [place] 3=Moderate Assistance 7=Complete IndependenceIRFPAI Quality Coding Scale 6 Independent with activity with or without an assistive device 5 Patient requires set up or clean up by helper. Patient completes activity by themselves 4 Supervision or touching assist (CGA). [place] provide cues , steadying assist 3 The helper provides less than half the effort to complete the activity 2 The helper provides more than half the effort to complete the activity 1 Dependent. The helper does all the effort to complete an activity 7 Patient refused to complete or attempt activity 9 The patient did not perform the activity before the current illness or injury 88 Not attempted due to Medical conditions or safety concerns Other Treatment Pt did 5 minutes bilat UE exercise with arm bike set at 10 W resistance. Pt took frequent rest breaks and often pedaled so slowly that the time did not register on the arm bike. She also propelled her wheelchair for UE strengthening , as needed for ADLs and transfers. Pt agreeable to a shower tomorrow and showed her where it will be done (her room has a bathtub). Care transferred to PT. Education OT Patient Education: Exercise program, Progress toward Goal/Update tx plan, Purpose of tx/functional activities Teaching Recipient: Patient Teaching Methods: Discussion Response to Teaching: Verbalize Understanding, Reinforcement Needed OT Short Term Goals Short Term Goals Time Frame: Apr 06, 2016 Lower Body Dressing(FIM): 3 Toileting(FIM): 3 Transfers (B,C,W/C) (FIM): 4 Toilet/Commode Transfer(FIM): 3 Shower Transfer(FIM): 3 Additional Short Term Goals: 2-Verbalize Understanding, 3-ImproveStrength/Jose 1=Demonstrate adherence to instructed precautions during ADL tasks. 2=Patient will verbalize/demonstrate understanding of assistive devices/ modifications for ADL. 3=Patient will improve strength/tolerance for activity to enable patient to perform ADL's. OT Exercise Instruct Goals Intermediate Goals Time Frame: Apr 20, 2016 Eating (FIM): 6 Eating (QC): 6 Groomin Oral Hygiene (QC): 6 Bathing(FIM): 5 Shower/Bathe Self (QC): 5 Upper Body Dressing(FIM): 6 Upper Body Dressing (QC): 6 Lower Body Dressing(FIM): 5 (setup) Lower Body Dressing (QC): 5 On/Off Footwear (QC): 5 (setup) Toileting(FIM): 6 Toileting Hygiene (QC): 6 Toilet/Commode Transfer(FIM): 6 Toilet/Commode Transfer (QC): 6 Shower Transfer(FIM): 6 Comprehension(FIM): 5 Expression (FIM): 5 Social Interaction(FIM): 5 Problem Solving(FIM): 5 Memory(FIM): 5 Additional Goals: 2-Verbalize Understanding, 3-ImproveStrength/Jose 1=Demonstrate adherence to instructed precautions during ADL tasks. 2=Patient will verbalize/demonstrate understanding of assistive devices/ modifications for ADL. 3=Patient will improve strength/tolerance for activity to enable patient to perform ADL's. OT Education/Plan Problem List/Assessment Pt would benefit from skilled OT to increase her independence in basic self care to allow her to return safely to her own home to live alone, with supplemental caretakers, and to decrease caregiver burden. Discharge Recommendations Plan/Recommendations: Continue POC Treatment Plan/Plan of Care Patient would benefit from OT for education, treatment and training to promote independence in ADL's, mobility, safety and/or upper extremity function for ADL' s. Plan of Care: ADL Retraining, Functional Mobility, Group Exercise/Act as Ind ( exercise, education, functional activities, activity tolerance, memory) Treatment Duration: Apr 20, 2016 Visits Per Week: 10-11 Minutes/Day (M-F): 75-90 Minutes/Day (Sat/Hamm): PRN Agreement: Yes Rehab Potential: Fair Time/GCodes Start Time: 14:00 Stop Time: 14:30 Total Time Billed (hr/min): 30 Billed Treatment Time visit, 30 minutes exercise SHAR GALLARDO OT Apr 05, 2016 14:42
--- NOTE | 2016-04-05 14:50 | Therapy Group Daily Note ---
Therapy Daily Group Note Patient Education Topic Other List Below (Handwashing, ARU description/expectations) Exercises Balance, Sit to/from Stand, Walking, Fine Motor, UE Exercise Other/Notes Pt transported to OT/PT group via w/c. Group consisted of introductions (name, place living, romantic valentines ideas), socialization, education on handwashing, completed handwashing at sink, fine motor tasks, inspirational words and critical word finding tasks. Pt actively participated in group by contributing to discussions and answer questions appropriately. Pt sat in w/c at sink to wash hands. Pt was able to complete icing/decorating cookies with good dexterity/coordination using hands during fine motor tasks. After group, pt had individual therapy with OT. All needs met. Start Time: 13:00 Stop Time: 14:00 Total Billed Treatment Time: 60 Total Billed Treatment 1-GRP GRACE DAVIS Apr 05, 2016 14:50
--- NOTE | 2016-04-05 14:57 | Physical Therapy Daily Note ---
PT Daily Note-Current Subjective Patient has just complete with OT and agrees to PT. Pain Numeric Pain Scale: 5-Moderate Pain Location: Right Location Body Site: Hip Pain Description: Acute Mental Status Patient Orientation: Person, Time, Situation Transfers Functional [place] Measure 0=Not Assessed/NA 4=Minimal Assistance 1=Total Assistance 5=Supervision or Setup 2=Maximal Assistance 6=Modified [place] 3=Moderate Assistance 7=Complete IndependenceIRFPAI Quality Coding Scale 6 Independent with activity with or without an assistive device 5 Patient requires set up or clean up by helper. Patient completes activity by themselves 4 Supervision or touching assist (CGA). [place] provide cues , steadying assist 3 The helper provides less than half the effort to complete the activity 2 The helper provides more than half the effort to complete the activity 1 Dependent. The helper does all the effort to complete an activity 7 Patient refused to complete or attempt activity 9 The patient did not perform the activity before the current illness or injury 88 Not attempted due to Medical conditions or safety concerns Transfers (B, C, W/C) (FIM): 4 Scootin Rollin Roll Left to Right (QC): 4 Supine to/from Sit: 4 Sit to/from Stand: 4 Sit to Lying (QC): 4 Sit to Stand (QC): 4 assist for right LE only with bed mobility Weight Bearing Weight Bearing Restriction: Weight Bearing/Tolerated Location Restriction: R LE Gait Training Does the Patient Walk?: Yes Gait (FIM): 2 Distance (FIM): 2=527-58 ft Distance: 125' Walk 10 feet (QC): 4 Gait Level of Assist: 4 Gait Persons Needed: 1 Gait Assistive Device: FWW CGA only; reciprocal pattern Exercises Supine Ex: Ankle pumps, Quad Set, Heel Slides Supine Reps: 10 Assessment Patient improving with treatment, however, is inconsistent with performance with therapies. PT to increase activity as tolerated by patient. PT Short Term Goals Short Term Goals Time Frame: Apr 06, 2016 Transfers (B,C,W/C) (FIM): 4 (met 04/05/16) Gait (FIM): 2 (met 04/05/16) Gait Distance Comment: 50' Gait Level of Assist: 4 (met 04/05/16) Gait Assistive Device: FWW Wheelchair Distance: 150' PT Senior Living Goals Pouncer Goals PT Pouncer Goals Time Frame: Apr 20, 2016 Transfers (B,C,W/C) (FIM): 4 (CGA) Sit to Lying (QC): 4 Lying-Sitting on Side/Bed(QC): 4 Sit to Stand (QC): 4 Rollin Roll Left to Right (QC): 4 Chair/Rrw-lh-Fhsxc Xfer(QC): 4 Car Transfer (QC): 4 Does the Patient Walk: Yes Gait (FIM): 4 Distance: 150' Walk 10 feet (QC): 4 Walk 10ft-Uneven Surface(QC): 4 Walk 50ft with 2 Turns (QC): 4 Walk 150 ft (QC): 4 Gait Level of Assist: 4 (CGA) Gait Assistive Device: FWW Stairs (FIM): 2 # of Steps: 4 1 Step (curb) (QC): 4 4 Steps (QC): 4 12 Steps (QC): 88 Stairs Level Of Assist: 4 (CGA) Picking up an Object (QC): 88 PT Plan Treatment/Plan Treatment Plan: Continue Plan of Care Treatment Plan: Bed Mobility, Education, Functional Activity Jose, Functional Strength, Group Therapy, Gait, Safety, Therapeutic Exercise, Transfers Treatment Duration: Apr 20, 2016 Visits Per Week: 10-11 Minutes/Day (M-F): 60-90 Minutes/Day (Sat/Hamm): 15-30 Time/GCodes Time In: 1430 Time Out: 1445 Total Billed Treatment Time: 15 Total Billed Treatment 1 visit FA 15 min ORTEGA MATIAS PT Apr 05, 2016 14:57
[2016-04-05 18:27] VITALS: BP 130/84
[2016-04-05] MEDS ORDERED: rOPINIRole 1 MG (REQUIP) TABLET PO SCH (21:00)
[2016-04-05] MEDS: TEMAZEPAM 15 MG (RESTORIL) CAP PO SCH (21:50)
[2016-04-06] MEDS: oxyCODONE/APAP 10/325MG (PERCOCET 10) TABLET PO PRN ×3 (02:56→13:24)
[2016-04-06 06:09] VITALS: BP 119/75
[2016-04-06] MEDS: RT-ADVAIR HFA 115/21 MCG PER PUFF IH SCH (06:13)
[2016-04-06] MEDS: LEVOTHYROXINE 100 MCG (LEVOTHROID) TAB PO SCH (06:25)
[2016-04-06] MEDS: PANTOPRAZOLE 40 MG (PROTONIX) TAB PO SCH (06:25)
[2016-04-06] MEDS: LORazepam 1 MG (ATIVAN) TAB PO SCH (06:25)
[2016-04-06] MEDS: SUCRALFATE 1 GM (CARAFATE) TAB PO SCH ×2 (06:25→11:52)
[2016-04-06] MEDS: ASPIRIN E.C. 81 MG (ECOTRIN) TAB PO SCH (08:25)
[2016-04-06] MEDS: eZETimibe 10 MG (ZETIA) TABLET PO SCH (08:25)
[2016-04-06] MEDS: meTOproloL SUCCINATE 50 MG (TOPROL XL) TAB PO SCH (08:25)
[2016-04-06] MEDS: DULoxetine 30 MG (CYMBALTA) CAP PO SCH (08:25)
[2016-04-06] MEDS: CLOPIDOGREL 75 MG (PLAVIX) TABLET PO SCH (08:26)
[2016-04-06] MEDS: ARTIFICAL TEARS 0.4 ML UNIT DOSE (REFRESH PLUS) OU SCH (08:29)
--- NOTE | 2016-04-06 08:38 | PM & R (SOAP) Progress Note ---
Subjective Subjective/Events-last exam Patient was seen in her room this AM Patient asks about upgrading her diet for Mechanical soft Disccused with ST Patient chokes on regular consistency diet - She will f/u with patient Patient min assist for transfers Objective Exam Last Set of Vital Signs Vital Signs Date Time Temp Pulse Resp B/P Pulse Ox O2 Delivery O2 Flow Rate FiO2 04/06/16 06:13 94 04/06/16 06:09 97.5 65 18 119/75 Room Air Capillary Refill : I&O Intake and Output 04/06/16 00:00 Intake Total 1130 ml Output Total 50 ml Balance 1080 ml Intake Oral 1130 ml Stool Total 50 ml # Voids 6 # Urine Diapers 4 General: Other (somewhat sedated but able to follow simple commands) HEENT: Atraumatic, PERRLA, EOMI, Mucous Memb Moist/[place] Neck: Supple, No JVD Lungs: Clear to Auscultation Heart: Regular Rate Abdomen: Normal Bowel Sounds, Soft, No Tenderness, Other (colostomy functioning ) Neuro: Other (generalized weakness more so at rt hip Cognitive impairment and dysphagia) Results Lab Laboratory Tests 04/05/16 21:31: Glucometer 110 Assessment/Plan Assessment Intertrochanteric hip frx rt s/p repair ortho Oversedation due to meds-improved with hold on requip and gabapentin Cognitive impairment =multifactorial-with a component of depression Dysphagia diet adjusted-ST to f/u re patients concerns Diverting colostomy Chronic back pain with Vertebral compression fractures s/p KEVYN on an outpatient basis pOSTOP anemia s/p transfusion Constipation on meds anxiety /depression on meds Plan Continue PT/OT/ST Continue to Hold neurontin F/U with Hospitalist and Ortho Recheck Labs Resume Requip-dose decreased yesterday Pain Management Anette Psych eval-done See orders Next Team Conference later today 04/06/16-See report for full functional update and POC and ELOS F/U with DR Martinez later today re possible transfer to GeriPsych unit. ST to f/u with patient re her modified diet LEXUS CHOWDHURY MD Apr 06, 2016 08:38
[2016-04-06] MEDS ORDERED: ROPI1TAB2 PO (10:17)
--- NOTE | 2016-04-06 10:29 | Progress Note-Hospitalist ---
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 Patient Interview: Pt states that she feels stable for DC to [place]. Physical exam stable. Pt states that she is having regular BMs. Pt states that she has some depression. 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 Martinez. YSABEL MARTINEZ DO Apr 06, 2016 10:29 YSABEL MARTINEZ DO Apr 06, 2016 10:29
[2016-04-06] MEDS: LACTULOSE SYRUP 10GM/15ML (ENULOSE) 30ML UDC PO SCH ×2 (10:37→13:00)
--- NOTE | 2016-04-06 11:14 | Speech Therapy Daily Note ---
Speech Daily Progress Note Subjective The patient was seated upright in wheelchair upon entrance. Throughout the session, the patient was transferred to bed due to discomfort reported in her leg. The RN stated the patient recently received pain medication. The patient greeted the clinician appropriately and agreed to participate in the cognitive treatment session on this date. Objective Functional Problem Solving Task/Recall: The patient recently reported she is not pleased with her current diet consistency (mechanical soft with thin liquid) . In attempts to upgrade the patient, the clinician offered to assess her with a solid consistency (deneen cracker or saltine cracker). The patient stated she is unable to consume this consistency due to choking. The importance of her statement was discussed and she was agreeable to remaining on a mechanically altered diet. Due to her displeasure with this consistency, the menu was received together and options to problem solve her choices were presented. The patient and clinician identified specific foods and modifications. The menu was marked by the clinician and discussed with the patient's RN. Assessment Assessment Current Status: Fair Progress Treatment Plan Continue Plan of Care Communication Comprehension: 3 Expression: 4 Social Cognition Social Interaction: 3 Problem Solvin Memory: 3 Speech Short Term Goals Short Term Goals Short Term Goals 1. The patient will recall and demonstrate three functional memory strategies for use at home and throughout structured tasks. 2. The patient will demonstrate 80% accuracy with safety problem solving with mild clinician cueing. Time Frame-STG: Two Weeks Speech Prison Goals Data Management Specialist Goals 1. The patient will demonstrate improved cognition for increased function and safety with ADL's in the least restrictive setting. Time Frame: Three Weeks Comprehension: 5 Expression: 5 Social Interaction: 5 Problem Solvin Memory: 5 Speech-Plan Treatment Plan Speech Therapy Treatment Plan: Continue Plan of Care Continue skilled cognitive therapy to focus on functional problem solving and memory. Treatment Duration: Apr 20, 2016 # of days/week Four to five. Visits Per Week: Four to five Minutes/Day (M-F): 30 Rehab Potential: Fair Safety Risks/Education Teaching Recipient: Patient Teaching Methods: Discussion Response to Teaching: Verbalize Understanding, Reinforcement Needed Education Topics Provided: Dysphagia Recommendations/Modifications Time Speech Therapy Time In: 09:15 Speech Therapy Time Out: 09:45 Total Billed Time: 30 Billed Treatment Time 1ANNA ELIZABETH ST Apr 06, 2016 11:14
--- NOTE | 2016-04-06 11:57 | Physical Therapy Daily Note ---
PT Daily Note-Current Subjective Pt supine in bed upon arrival. Pt reports feeling a little better today. Pt reports pain in R incision site but doesn't rate pain. Pt agrees to PT. Pain Location: Incisional, Lateral Location Body Site: Thigh Pain Description: Ache Mental Status Patient Orientation: Person, Place Transfers Functional [place] Measure 0=Not Assessed/NA 4=Minimal Assistance 1=Total Assistance 5=Supervision or Setup 2=Maximal Assistance 6=Modified [place] 3=Moderate Assistance 7=Complete IndependenceIRFPAI Quality Coding Scale 6 Independent with activity with or without an assistive device 5 Patient requires set up or clean up by helper. Patient completes activity by themselves 4 Supervision or touching assist (CGA). [employer] provide cues , steadying assist 3 The helper provides less than half the effort to complete the activity 2 The helper provides more than half the effort to complete the activity 1 Dependent. The helper does all the effort to complete an activity 7 Patient refused to complete or attempt activity 9 The patient did not perform the activity before the current illness or injury 88 Not attempted due to Medical conditions or safety concerns Scootin Rollin Roll Left to Right (QC): 4 Supine to/from Sit: 4 Sit to/from Stand: 3 Sit to Lying (QC): 4 Sit to Stand (QC): 3 Chair/Xte-mu-Yqdoi Xfer(QC): 3 Bed to/from Chair: 3 Weight Bearing Weight Bearing Restriction: Weight Bearing/Tolerated Location Restriction: R LE Weight Bearing: Pt continues to report pain with ambulation. Exercises Supine Ex: Rolling Supine Reps: 10 Treatments Pt reports needing bedding changed due to sweat. Upon having pt transfer from supine to EOB, discovered pt's gown was wet and assisted pt with changing gown and briefs due to wetness. Pt transferred 4 different times from supine to EOB and sat for a few minutes each time but would feel dizzy and needed to lay back to rest. The final time, pt sat up and transferred from EOB to W/C via SPT at [facility]. Pt was left in W/C with all needs met and call light in hand at end of tx. ST to arrive shortly. Assessment Current Status: Fair Progress Pt improved with transfer independence but continues to report pain and dizziness with upright activity. Pt is wanting to transfer to [place]. 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 PT Short Term Goals Short Term Goals Time Frame: Apr 06, 2016 Transfers (B,C,W/C) (FIM): 4 (met 04/05/16) Gait (FIM): 2 (met 04/05/16) Gait Distance Comment: 50' Gait Level of Assist: 4 (met 04/05/16) Gait Assistive Device: FWW Wheelchair Distance: 150' PT [place] Supervisor Goals [place] Supervisor Goals PT Snf Goals Time Frame: Apr 20, 2016 Transfers (B,C,W/C) (FIM): 4 (CGA) Sit to Lying (QC): 4 Lying-Sitting on Side/Bed(QC): 4 Sit to Stand (QC): 4 Rollin Roll Left to Right (QC): 4 Chair/Swu-ng-Fzdew Xfer(QC): 4 Car Transfer (QC): 4 Does the Patient Walk: Yes Gait (FIM): 4 Distance: 150' Walk 10 feet (QC): 4 Walk 10ft-Uneven Surface(QC): 4 Walk 50ft with 2 Turns (QC): 4 Walk 150 ft (QC): 4 Gait Level of Assist: 4 (CGA) Gait Assistive Device: FWW Stairs (FIM): 2 # of Steps: 4 1 Step (curb) (QC): 4 4 Steps (QC): 4 12 Steps (QC): 88 Stairs Level Of Assist: 4 (CGA) Picking up an Object (QC): 88 PT Plan Problem List Problem List: Activity Tolerance, Functional Strength, Safety, Balance, Gait, Transfer, Bed Mobility Treatment/Plan Treatment Plan: Continue Plan of Care Treatment Plan: Bed Mobility, Education, Functional Activity Jose, Functional Strength, Group Therapy, Gait, Safety, Therapeutic Exercise, Transfers Treatment Duration: Apr 20, 2016 Visits Per Week: 10-11 Minutes/Day (M-F): 60-90 Minutes/Day (Sat/Hamm): 15-30 Safety Risks/Education Patient Education: Transfer Techniques, Correct Positioning, Safety Issues Teaching Recipient: Patient Teaching Methods: Discussion Response to Teaching: Verbalize Understanding Time/GCodes Time In: 815 Time Out: 900 Total Billed Treatment Time: 45 Total Billed Treatment visit, FA X3 (45m) CLIFTON MEAD PTA Apr 06, 2016 11:57
[2016-04-06 13:00] VITALS: BP 119/75
--- NOTE | 2016-04-06 13:30 | Occupational Ther Daily Note ---
OT Current Status-Daily Note Subjective Pt seen in room, up in bed, agreeable to OT and showering. No pain mentioned. Appearance Alert, cooperative, looking forward to discharge to [facility] Mental Status/Objective Functional [place] Measure 0=Not Assessed/NA 4=Minimal Assistance 1=Total Assistance 5=Supervision or Setup 2=Maximal Assistance 6=Modified [place] 3=Moderate Assistance 7=Complete [place] Attachments: Saline Lock ADL-Treatment Skilled cues for hand placement for most transfers. Decreased problem solving during shower - how to get cap off shampoo Functional [place] Measure 0=Not Assessed/NA 4=Minimal Assistance 1=Total Assistance 5=Supervision or Setup 2=Maximal Assistance 6=Modified [place] 3=Moderate Assistance 7=Complete IndependenceIRFPAI Quality Coding Scale 6 Independent with activity with or without an assistive device 5 Patient requires set up or clean up by helper. Patient completes activity by themselves 4 Supervision or touching assist (CGA). [place] provide cues , steadying assist 3 The helper provides less than half the effort to complete the activity 2 The helper provides more than half the effort to complete the activity 1 Dependent. The helper does all the effort to complete an activity 7 Patient refused to complete or attempt activity 9 The patient did not perform the activity before the current illness or injury 88 Not attempted due to Medical conditions or safety concerns Eating (FIM): 6 (Dentures. ) Eating (QC): 6 Grooming (FIM): 5 (setup to brush teeth. Washed face and hands in shower. Fluffed up hair. Wheelchair level) Oral Hygiene (QC): 5 Toileting Hygiene (QC): 3 Bathing (FIM): 4 (Shower bench, grab bars, hand held shower. Leaned to the side to wash bottom. ) Bathing Location: L Arm, R Arm, L Upper Leg, R Upper Leg, Chest, Abdomen, Buttocks, Perineal Area Shower/Bathe Self (QC): 3 Upper Body (FIM): 5 (setup) Upper Body Dressing (QC): 5 (setup) Lower Body Dressing (FIM): 3 (help to get slipper sock off and on R foot. help to get slipper sock on L foot but could get it off. help to thread R foot into pants. Stood min assist, then balanced SBA to pull pants up. FWW) Lower Body Dressing (QC): 3 On/Off Footwear (QC): 2 Toileting (FIM): 3 (Helps with pants up and down, needs help to wipe in back 67%) Transfers (B, C, W/C) (FIM): 4 (Min to CGA, FWW. Can get feet in and out of bed but slowly) Toilet/Commode Transfer (FIM): 4 (Min assist BSC over toilet) Toilet Transfer (QC): 3 Shower Transfer(FIM): 4 (Min assist, shower bench, grab bars, FWW. pt education in technique) All ADLs took longer than usual. Pt left up in bed, 4 rails up, all needs met. Education OT Patient Education: Modified ADL techniques, Progress toward Goal/Update tx plan, Purpose of tx/functional activities, Safety issues, Transfer techniques, Use of adapted equipment Teaching Recipient: Patient Teaching Methods: Discussion Response to Teaching: Reinforcement Needed OT Short Term Goals Short Term Goals Time Frame: Apr 06, 2016 Lower Body Dressing(FIM): 3 (met) Toileting(FIM): 3 (met) Transfers (B,C,W/C) (FIM): 4 (met 04/05/16) Toilet/Commode Transfer(FIM): 3 (met) Shower Transfer(FIM): 3 (met) Additional Short Term Goals: 2-Verbalize Understanding, 3-ImproveStrength/Jose 1=Demonstrate adherence to instructed precautions during ADL tasks. 2=Patient will verbalize/demonstrate understanding of assistive devices/ modifications for ADL. 3=Patient will improve strength/tolerance for activity to enable patient to perform ADL's. OT Beauty School Instructor Goals Beauty School Instructor Goals Time Frame: Apr 20, 2016 Eating (FIM): 6 (met) Eating (QC): 6 (met) Groomin (not met 04-06-16) Oral Hygiene (QC): 6 (not met 04-06-16) Bathing(FIM): 5 (not met 04-06-16) Shower/Bathe Self (QC): 5 (not met 04-06-16) Upper Body Dressing(FIM): 6 (not met 04-06-16) Upper Body Dressing (QC): 6 (not met 04-06-16) Lower Body Dressing(FIM): 5 (setupnot met 2-15-17) Lower Body Dressing (QC): 5 (not met 04-06-16) On/Off Footwear (QC): 5 (setupnot met 04-06-16) Toileting(FIM): 6 (not met 04-06-16) Toileting Hygiene (QC): 6 (not met 04-06-16) Toilet/Commode Transfer(FIM): 6 (not met 04-06-16) Toilet/Commode Transfer (QC): 6 (not met 04-06-16) Shower Transfer(FIM): 6 (not met 04-06-16) Comprehension(FIM): 5 Expression (FIM): 5 Social Interaction(FIM): 5 Problem Solving(FIM): 5 Memory(FIM): 5 Additional Goals: 2-Verbalize Understanding, 3-ImproveStrength/Jsoe 1=Demonstrate adherence to instructed precautions during ADL tasks. 2=Patient will verbalize/demonstrate understanding of assistive devices/ modifications for ADL. 3=Patient will improve strength/tolerance for activity to enable patient to perform ADL's. OT Education/Plan Problem List/Assessment Pt would benefit from skilled OT to increase her independence in basic self care to allow her to return safely to her own home to live alone, with supplemental caretakers, and to decrease caregiver burden. Discharge Recommendations Plan/Recommendations: Discharge/Goals Met (See tx plan for specifics) Treatment Plan/Plan of Care Patient would benefit from OT for education, treatment and training to promote independence in ADL's, mobility, safety and/or upper extremity function for ADL' s. Plan of Care: ADL Retraining, Functional Mobility, Group Exercise/Act as Ind ( exercise, education, functional activities, activity tolerance, memory) Treatment Duration: Apr 20, 2016 Visits Per Week: 10-11 Minutes/Day (M-F): 75-90 Minutes/Day (Sat/Hamm): PRN Agreement: Yes Rehab Potential: Fair Time/GCodes Start Time: 10:30 Stop Time: 11:15 Total Time Billed (hr/min): 45 Billed Treatment Time visit, 45 minutes ADL SHAR GALLARDO OT Apr 06, 2016 13:29
--- NOTE | 2016-04-06 14:05 | Physical Therapy Daily Note ---
PT Daily Note-Current Subjective Patient in bed pre tx, is very reluctant to participate in physical therapy. States her pain is 9/10 in right hip. Appearance Patient BTB post tx with nurse call, phone, tray, all needs met. Mental Status Patient Orientation: Person, Place, Situation Attachments: Colostomy/Ileostomy Transfers Functional [place] Measure 0=Not Assessed/NA 4=Minimal Assistance 1=Total Assistance 5=Supervision or Setup 2=Maximal Assistance 6=Modified [place] 3=Moderate Assistance 7=Complete IndependenceIRFPAI Quality Coding Scale 6 Independent with activity with or without an assistive device 5 Patient requires set up or clean up by helper. Patient completes activity by themselves 4 Supervision or touching assist (CGA). [place] provide cues , steadying assist 3 The helper provides less than half the effort to complete the activity 2 The helper provides more than half the effort to complete the activity 1 Dependent. The helper does all the effort to complete an activity 7 Patient refused to complete or attempt activity 9 The patient did not perform the activity before the current illness or injury 88 Not attempted due to Medical conditions or safety concerns Transfers (B, C, W/C) (FIM): 4 Scootin Rollin Supine to/from Sit: 4 Patient was able to sit at the edge of the bed with min assist to help with right leg. As soon as she sat at the edge of the bed she started thrashing around and states that she just can't do it and demands help to get her right leg back into bed. After the needed assistance she lays back down with min assist. She will not participate any further until she gets pain meds. Nurse notified and PT will try again later. Treatments bed mobility Assessment Current Status: Poor Progress no change in mobility PT Short Term Goals Short Term Goals Time Frame: Apr 06, 2016 Transfers (B,C,W/C) (FIM): 4 (met 04/05/16) Gait (FIM): 2 (met 04/05/16) Gait Distance Comment: 50' Gait Level of Assist: 4 (met 04/05/16) Gait Assistive Device: FWW Wheelchair Distance: 150' PT Sack Repairer Goals [facility] Goals PT [facility] Goals Time Frame: Apr 20, 2016 Transfers (B,C,W/C) (FIM): 4 (CGA) Sit to Lying (QC): 4 Lying-Sitting on Side/Bed(QC): 4 Sit to Stand (QC): 4 Rollin Roll Left to Right (QC): 4 Chair/Ovy-fv-Nofaj Xfer(QC): 4 Car Transfer (QC): 4 Does the Patient Walk: Yes Gait (FIM): 4 Distance: 150' Walk 10 feet (QC): 4 Walk 10ft-Uneven Surface(QC): 4 Walk 50ft with 2 Turns (QC): 4 Walk 150 ft (QC): 4 Gait Level of Assist: 4 (CGA) Gait Assistive Device: FWW Stairs (FIM): 2 # of Steps: 4 1 Step (curb) (QC): 4 4 Steps (QC): 4 12 Steps (QC): 88 Stairs Level Of Assist: 4 (CGA) Picking up an Object (QC): 88 PT Plan Problem List Problem List: Activity Tolerance, Functional Strength, Safety, Balance, Gait, Transfer, Bed Mobility, ROM Treatment/Plan Treatment Plan: Continue Plan of Care Treatment Plan: Bed Mobility, Education, Functional Activity Jose, Functional Strength, Group Therapy, Gait, Safety, Therapeutic Exercise, Transfers Treatment Duration: Apr 20, 2016 Visits Per Week: 10-11 Minutes/Day (M-F): 60-90 Minutes/Day (Sat/Hamm): 15-30 Safety Risks/Education Patient Education: Transfer Techniques, Safety Issues Teaching Recipient: Patient Teaching Methods: Demonstration, Discussion Response to Teaching: Reinforcement Needed Time/GCodes Time In: 1300 Time Out: 1310 Total Billed Treatment Time: 10 Total Billed Treatment 1 visit FA 10 min SHALINI GUY PT Apr 06, 2016 14:05
--- NOTE | 2016-04-06 14:10 | Physical Therapy Daily Note ---
PT Daily Note-Current Subjective Patient in bed pre tx, reluctantly agrees to PT with encouragement from PT and from a visitor in the room. Patient has had pain meds and it should be long enough for them to work. Patient states it has "taken the edge off". Appearance Patient BTB post tx with nurse call, phone, tray, all needs met. Mental Status Patient Orientation: Person, Place Attachments: Colostomy/Ileostomy Transfers Functional [place] Measure 0=Not Assessed/NA 4=Minimal Assistance 1=Total Assistance 5=Supervision or Setup 2=Maximal Assistance 6=Modified [place] 3=Moderate Assistance 7=Complete IndependenceIRFPAI Quality Coding Scale 6 Independent with activity with or without an assistive device 5 Patient requires set up or clean up by helper. Patient completes activity by themselves 4 Supervision or touching assist (CGA). [place] provide cues , steadying assist 3 The helper provides less than half the effort to complete the activity 2 The helper provides more than half the effort to complete the activity 1 Dependent. The helper does all the effort to complete an activity 7 Patient refused to complete or attempt activity 9 The patient did not perform the activity before the current illness or injury 88 Not attempted due to Medical conditions or safety concerns Transfers (B, C, W/C) (FIM): 4 Scootin Rollin Roll Left to Right (QC): 4 Supine to/from Sit: 4 Sit to/from Stand: 4 Sit to Lying (QC): 3 Sit to Stand (QC): 4 Patient performs bed mobility with SBA except she does needs assist with supine to sit with right leg. CGA for sit to stand. Patient sat at the edge of the bed for a minute with no complaints and then upon standing she states that she just can't do it and that she is dizzy and she needs to get back into bed. She refuses to sit at the edge of the bed and insists she lay down. Patient refuses further treatment. Treatments bed mobility, sit to stand Assessment Current Status: Poor Progress no change in mobility PT Short Term Goals Short Term Goals Time Frame: Apr 06, 2016 Transfers (B,C,W/C) (FIM): 4 (met 04/05/16) Gait (FIM): 2 (met 04/05/16) Gait Distance Comment: 50' Gait Level of Assist: 4 (met 04/05/16) Gait Assistive Device: FWW Wheelchair Distance: 150' PT Assisted Goals Tip Finisher Goals PT Tip Finisher Goals Time Frame: Apr 20, 2016 Transfers (B,C,W/C) (FIM): 4 (CGA) Sit to Lying (QC): 4 Lying-Sitting on Side/Bed(QC): 4 Sit to Stand (QC): 4 Rollin Roll Left to Right (QC): 4 Chair/Dvu-vq-Pqrrb Xfer(QC): 4 Car Transfer (QC): 4 Does the Patient Walk: Yes Gait (FIM): 4 Distance: 150' Walk 10 feet (QC): 4 Walk 10ft-Uneven Surface(QC): 4 Walk 50ft with 2 Turns (QC): 4 Walk 150 ft (QC): 4 Gait Level of Assist: 4 (CGA) Gait Assistive Device: FWW Stairs (FIM): 2 # of Steps: 4 1 Step (curb) (QC): 4 4 Steps (QC): 4 12 Steps (QC): 88 Stairs Level Of Assist: 4 (CGA) Picking up an Object (QC): 88 PT Plan Problem List Problem List: Activity Tolerance, Functional Strength, Safety, Balance, Gait, Transfer, Bed Mobility, ROM Treatment/Plan Treatment Plan: Continue Plan of Care Treatment Plan: Bed Mobility, Education, Functional Activity Jose, Functional Strength, Group Therapy, Gait, Safety, Therapeutic Exercise, Transfers Treatment Duration: Apr 20, 2016 Visits Per Week: 10-11 Minutes/Day (M-F): 60-90 Minutes/Day (Sat/Hamm): 15-30 Safety Risks/Education Patient Education: Transfer Techniques, Safety Issues Teaching Recipient: Patient Teaching Methods: Demonstration, Discussion Response to Teaching: Reinforcement Needed Time/GCodes Time In: 1345 Time Out: 1355 Total Billed Treatment Time: 10 Total Billed Treatment 1 visit FA 10 min SHALINI GUY PT Apr 06, 2016 14:10
--- NOTE | 2016-04-06 14:45 | Physical Therapy Daily Note ---
PT Daily Note-Current Subjective Agrees to short PT session after much encouragement. Pt expresses that she does not want to participate but will. Transfers Functional [place] Measure 0=Not Assessed/NA 4=Minimal Assistance 1=Total Assistance 5=Supervision or Setup 2=Maximal Assistance 6=Modified [place] 3=Moderate Assistance 7=Complete IndependenceIRFPAI Quality Coding Scale 6 Independent with activity with or without an assistive device 5 Patient requires set up or clean up by helper. Patient completes activity by themselves 4 Supervision or touching assist (CGA). [place] provide cues , steadying assist 3 The helper provides less than half the effort to complete the activity 2 The helper provides more than half the effort to complete the activity 1 Dependent. The helper does all the effort to complete an activity 7 Patient refused to complete or attempt activity 9 The patient did not perform the activity before the current illness or injury 88 Not attempted due to Medical conditions or safety concerns Transfers (B, C, W/C) (FIM): 5 Roll Left to Right (QC): 5 Supine to/from Sit: 5 Sit to/from Stand: 5 Sit to Lying (QC): 5 Sit to Stand (QC): 5 Chair/Mjs-xm-Jjmcz Xfer(QC): 4 Car Transfer (QC): 2 Pt requires SBA and extra time with all transfers. Pt wants help from this therapist but with encouragement, can do so without physical assist. Slow with transfer and uses bedrail to transition sit to/from supine. Gait Training Does the Patient Walk?: Yes Gait (FIM): 4 Distance (FIM): 3=150 ft Distance: 150' Walk 10 feet (QC): 4 (CGA for safety) Walk 50 ft with 2 Turns(QC): 4 (in room and to the hillman with 2 turns; CGA for safety.) Walk 150 ft (QC): 4 Walking 10ft/uneven surface-QC: 7 (adamently refused to attempt) Gait Assistive Device: FWW gait is slow and pt voices that she can't do it as she walks with only CGA. Wheelchair Training Does the Pt Use a Wheelchair?: No Stair Training Stair Training: Handrails/: uses walker Stairs (FIM): 2 #of Steps: 1 1 Step (curb) (QC): 1 (CGA for safety and encourgement to try.) 4 Steps (QC): 7 (adamently refused) 12 Steps (QC): 7 (MIMI) Balance Picking up an Object (QC): 7 (refused) Assessment Pt self limiting with functional mobility and willingness to participate. PT Short Term Goals Short Term Goals Time Frame: Apr 06, 2016 Transfers (B,C,W/C) (FIM): 4 (met 04/05/16) Gait (FIM): 2 (met 04/05/16) Gait Distance Comment: 50' Gait Level of Assist: 4 (met 04/05/16) Gait Assistive Device: FWW Wheelchair Distance: 150' PT Detention Goals Detention Goals PT Director Education Goals Time Frame: Apr 20, 2016 Transfers (B,C,W/C) (FIM): 4 (CGA) Sit to Lying (QC): 4 (met, scored 5) Lying-Sitting on Side/Bed(QC): 4 (met, scored 5) Sit to Stand (QC): 4 (met, scored 5) Rollin Roll Left to Right (QC): 4 Chair/Xte-wa-Qlkyi Xfer(QC): 4 (met) Car Transfer (QC): 4 (unmet, scored 2) Does the Patient Walk: Yes Gait (FIM): 4 (met, scored 4) Distance: 150' Walk 10 feet (QC): 4 (met) Walk 10ft-Uneven Surface(QC): 4 (unmet; refused) Walk 50ft with 2 Turns (QC): 4 (et) Walk 150 ft (QC): 4 Gait Level of Assist: 4 (CGA) Gait Assistive Device: FWW Stairs (FIM): 2 (met, score 2) # of Steps: 4 1 Step (curb) (QC): 4 (met) 4 Steps (QC): 4 (unmet, refused) 12 Steps (QC): 88 Stairs Level Of Assist: 4 (CGA) Picking up an Object (QC): 88 (refused) PT Plan Treatment/Plan Treatment Plan: Discontinue PT (transfer to [facility]) Treatment Plan: Bed Mobility, Education, Functional Activity Jose, Functional Strength, Group Therapy, Gait, Safety, Therapeutic Exercise, Transfers Treatment Duration: Apr 20, 2016 Visits Per Week: 10-11 Minutes/Day (M-F): 60-90 Minutes/Day (Sat/Hamm): 15-30 Safety Risks/Education Education on importance of participation with therapy services. Time/GCodes Time In: 1410 Time Out: 1440 Total Billed Treatment Time: 30 Total Billed Treatment visit FA 15 GT 15 GRACE CERNA PT Apr 06, 2016 14:45
--- NOTE | 2016-04-06 15:10 | Therapy Team Discharge Summary ---
Therapy Discharge Summary Discharge Recommendations Date of Discharge Therapy D/C Recommendations: Home w/ Family Support, Care Home (TCU/NH) Physical Therapy this patient was seen by skilled PT post repair of right hip fracture. Upon admission,she was max assist with transfers, ambulated 5 ft with FWW with min assist and unable to attempt stairs. Treatment consisted of functional strength and mobility as well as gait training. Upon discharge, she was SBA with transfers, min assist with gait 150 ft with fWW and she was able to traverse a curb step with min assist. She did make progress and some goals met (refer to PT LTG's), but she was limited by poor willingness to participate and waxed and waned with being agreeable to participate. She discharged to [facility] in [place]. Recommend continued therapy services and feel continued progress is possible. PT Halfway Goals Halfway Goals PT Tax Processor Goals Time Frame: Apr 20, 2016 Transfers (B,C,W/C) (FIM): 4 (CGA) Roll Left to Right (QC): 4 Sit to Lying (QC): 4 (met, scored 5) Lying-Sitting on Side/Bed(QC): 4 (met, scored 5) Sit to Stand (QC): 4 (met, scored 5) Chair/Pxi-kc-Litny Xfer(QC): 4 (met) Car Transfer (QC): 4 (unmet, scored 2) Does the Patient Walk: Yes Gait (FIM): 4 (met, scored 4) Distance: 150' Walk 10 feet (QC): 4 (met) Walk 10ft-Uneven Surface(QC): 4 (unmet; refused) Walk 50ft with 2 Turns (QC): 4 (et) Walk 150 ft (QC): 4 Gait Level of Assist: 4 (CGA) Gait Assistive Device: FWW Stairs (FIM): 2 (met, score 2) # of Steps: 4 1 Step (curb) (QC): 4 (met) 4 Steps (QC): 4 (unmet, refused) 12 Steps (QC): 88 Stairs Level Of Assist: 4 (CGA) Picking up an Object (QC): 88 (refused) OT Tax Processor Goals Halfway Goals Time Frame: Apr 20, 2016 Eating (FIM): 6 (met) Eating (QC): 6 (met) Oral Hygiene (QC): 6 (not met 2-15-17) Grooming(FIM): 6 (not met 04-06-16) Bathing(FIM): 5 (not met 04-06-16) Shower/Bathe Self (QC): 5 (not met 04-06-) Upper Body Dressing(FIM): 6 (not met 2-) Upper Body Dressing (QC): 6 (not met 04-06-16) Lower Body Dressing(FIM): 5 (setupnot met 04-06-16) Lower Body Dressing (QC): 5 (not met 04-06-16) On/Off Footwear (QC): 5 (setupnot met 04-06-16) Toileting(FIM): 6 (not met 04-06-16) Toileting Hygiene (QC): 6 (not met 04-06-16) Toilet/Commode Transfer(FIM): 6 (not met 04-06-16) Toilet/Commode Transfer (QC): 6 (not met 04-06-16) Shower Transfer(FIM): 6 (not met 04-06-16) Comprehension(FIM): 5 Expression (FIM): 5 Social Interaction(FIM): 5 Problem Solving(FIM): 5 Memory(FIM): 5 Additional Goals: 2-Verbalize Understanding, 3-ImproveStrength/Jose 1=Demonstrate adherence to instructed precautions during ADL tasks. 2=Patient will verbalize/demonstrate understanding of assistive devices/ modifications for ADL. 3=Patient will improve strength/tolerance for activity to enable patient to perform ADL's. Speech Halfway Goals Halfway Goals 1. The patient will demonstrate improved cognition for increased function and safety with ADL's in the least restrictive setting. Time Frame: Three Weeks Comprehension: 5 Expression: 5 Social Interaction: 5 Problem Solvin Memory: 5 GRACE CERNA PT Apr 06, 2016 15:10
--- NOTE | 2016-04-07 08:31 | Therapy Team Discharge Summary ---
Therapy Discharge Summary Discharge Recommendations Date of Discharge Apr 06, 2016 at 15:00 Therapy D/C Recommendations: Other, See Comments Occupational Therapy Pt was seen for skilled OT to increase her independence in basic self care to allow her to return safely to her home and decrease caregiver burden. On admission she required setup for eating, grooming and upper body dressing, mod assist for bathing and lower body dressing and max assist for toilet transfer, with 2 people required for toileting. By discharge she had progressed to mod I for eating, setup for grooming and upper body dressing (same), min assist bathing, mod assist lower body dressing (same), mod assist toileting and min assist toilet and shower transfers. Equipment used included FWW, BSC, shower bench, grab bars, hand held shower. Patients' progress was limited by her confusion and depression, requiring encouragement to participate. She was discharged to [facility] psych unit for further care. Continued OT is recommended. See tx plan for goals met. DC OT PT Lard Maker Goals Lard Maker Goals PT Lard Maker Goals Time Frame: Apr 20, 2016 Transfers (B,C,W/C) (FIM): 4 (CGA) Roll Left to Right (QC): 4 Sit to Lying (QC): 4 (met, scored 5) Lying-Sitting on Side/Bed(QC): 4 (met, scored 5) Sit to Stand (QC): 4 (met, scored 5) Chair/Ppt-cu-Efzza Xfer(QC): 4 (met) Car Transfer (QC): 4 (unmet, scored 2) Does the Patient Walk: Yes Gait (FIM): 4 (met, scored 4) Distance: 150' Walk 10 feet (QC): 4 (met) Walk 10ft-Uneven Surface(QC): 4 (unmet; refused) Walk 50ft with 2 Turns (QC): 4 (et) Walk 150 ft (QC): 4 Gait Level of Assist: 4 (CGA) Gait Assistive Device: FWW Stairs (FIM): 2 (met, score 2) # of Steps: 4 1 Step (curb) (QC): 4 (met) 4 Steps (QC): 4 (unmet, refused) 12 Steps (QC): 88 Stairs Level Of Assist: 4 (CGA) Picking up an Object (QC): 88 (refused) OT Prison Goals Prison Goals Time Frame: Apr 20, 2016 Eating (FIM): 6 (met) Eating (QC): 6 (met) Oral Hygiene (QC): 6 (not met 04-06-17) Grooming(FIM): 6 (not met 04-06-17) Bathing(FIM): 5 (not met 2-15-17) Shower/Bathe Self (QC): 5 (not met 2-17) Upper Body Dressing(FIM): 6 (not met 2-17) Upper Body Dressing (QC): 6 (not met 215-17) Lower Body Dressing(FIM): 5 (setupnot met 04-06-16) Lower Body Dressing (QC): 5 (not met 04-06-16) On/Off Footwear (QC): 5 (setupnot met 04-06-16) Toileting(FIM): 6 (not met 2) Toileting Hygiene (QC): 6 (not met 04-06-16) Toilet/Commode Transfer(FIM): 6 (not met 04-06-16) Toilet/Commode Transfer (QC): 6 (not met 2) Shower Transfer(FIM): 6 (not met 217) Comprehension(FIM): 5 Expression (FIM): 5 Social Interaction(FIM): 5 Problem Solving(FIM): 5 Memory(FIM): 5 Additional Goals: 2-Verbalize Understanding, 3-ImproveStrength/Jose 1=Demonstrate adherence to instructed precautions during ADL tasks. 2=Patient will verbalize/demonstrate understanding of assistive devices/ modifications for ADL. 3=Patient will improve strength/tolerance for activity to enable patient to perform ADL's. Speech Lard Maker Goals Prison Goals 1. The patient will demonstrate improved cognition for increased function and safety with ADL's in the least restrictive setting. Time Frame: Three Weeks Comprehension: 5 Expression: 5 Social Interaction: 5 Problem Solvin Memory: 5 SHAR GALLARDO OT Apr 07, 2016 08:31
--- NOTE | 2016-04-07 09:43 | Therapy Team Discharge Summary ---
Therapy Discharge Summary Discharge Recommendations Date of Discharge Apr 06, 2016 at 15:00 Therapy D/C Recommendations: Other, See Comments Speech-Language Pathology The patient was recently admitted to [facility] following a hip fracture. Upon admission, the patient demonstrated moderate cognitive deficits in the areas of problem solving, attention, and memory. Skilled speech therapy focused on functional safety problem solving and memory strategies. As the patient discharged early to a geriatric psychiatric unit, goals were not met. Skilled speech therapy is not recommended post discharge. PT Cloth Measurer Goals Skilled Nursing Goals PT Skilled Nursing Goals Time Frame: Apr 20, 2016 Transfers (B,C,W/C) (FIM): 4 (CGA) Roll Left to Right (QC): 4 Sit to Lying (QC): 4 (met, scored 5) Lying-Sitting on Side/Bed(QC): 4 (met, scored 5) Sit to Stand (QC): 4 (met, scored 5) Chair/Nbp-gp-Wflvw Xfer(QC): 4 (met) Car Transfer (QC): 4 (unmet, scored 2) Does the Patient Walk: Yes Gait (FIM): 4 (met, scored 4) Distance: 150' Walk 10 feet (QC): 4 (met) Walk 10ft-Uneven Surface(QC): 4 (unmet; refused) Walk 50ft with 2 Turns (QC): 4 (et) Walk 150 ft (QC): 4 Gait Level of Assist: 4 (CGA) Gait Assistive Device: FWW Stairs (FIM): 2 (met, score 2) # of Steps: 4 1 Step (curb) (QC): 4 (met) 4 Steps (QC): 4 (unmet, refused) 12 Steps (QC): 88 Stairs Level Of Assist: 4 (CGA) Picking up an Object (QC): 88 (refused) OT Cloth Measurer Goals Cloth Measurer Goals Time Frame: Apr 20, 2016 Eating (FIM): 6 (met) Eating (QC): 6 (met) Oral Hygiene (QC): 6 (not met 04-06-17) Grooming(FIM): 6 (not met 15-17) Bathing(FIM): 5 (not met 15-17) Shower/Bathe Self (QC): 5 (not met 04-06-) Upper Body Dressing(FIM): 6 (not met 15-17) Upper Body Dressing (QC): 6 (not met 04-06-16) Lower Body Dressing(FIM): 5 (setupnot met 04-06-16) Lower Body Dressing (QC): 5 (not met 04-06-16) On/Off Footwear (QC): 5 (setupnot met 04-06-16) Toileting(FIM): 6 (not met 04-06-16) Toileting Hygiene (QC): 6 (not met 04-06-16) Toilet/Commode Transfer(FIM): 6 (not met 04-06-16) Toilet/Commode Transfer (QC): 6 (not met 04-06-16) Shower Transfer(FIM): 6 (not met 04-06-16) Comprehension(FIM): 5 Expression (FIM): 5 Social Interaction(FIM): 5 Problem Solving(FIM): 5 Memory(FIM): 5 Additional Goals: 2-Verbalize Understanding, 3-ImproveStrength/Jose 1=Demonstrate adherence to instructed precautions during ADL tasks. 2=Patient will verbalize/demonstrate understanding of assistive devices/ modifications for ADL. 3=Patient will improve strength/tolerance for activity to enable patient to perform ADL's. Speech Skilled Nursing Goals Skilled Nursing Goals 1. The patient will demonstrate improved cognition for increased function and safety with ADL's in the least restrictive setting. Time Frame: Three Weeks Comprehension: 5 (NOT MET) Expression: 5 (NOT MET) Social Interaction: 5 (NOT MET) Problem Solvin (NOT MET) Memory: 5 (NOT MET) TARAN GEORGE Apr 07, 2016 09:43
--- NOTE | 2016-04-22 10:08 | DISCHARGE SUMMARY ---
DATE OF ADMISSION: 03/30/2016 DATE OF DISCHARGE: 04/06/2016 HISTORY OF PRESENT ILLNESS: The patient is a 75-year-old female who was admitted via the ED after she presented there with a broken hip. She indicates that she has a problem after having an epidural block performed on an outpatient basis at a pain clinic in [place]. She was subsequently seen in the ED with an issue with hemorrhage. She was evaluated and discharged to home. She felt some weakness, lightheadedness and fell to the floor with above results. She had been modified independent with a walker prior to this. PAST MEDICAL HISTORY: 1. Vertebral compression fracture, status post kyphoplasty, chronic back pain. She had been on the rehab unit 2 years ago and did well. 2. Arthritis. 3. Coronary artery disease. 4. COPD. 5. GERD. 6. Hypertension. 7. Hypothyroidism on replacement. 8. DVT. 9. Anxiety. 10. Colostomy with Dr. Yusuf and she states that she was to see Dr. Yusuf in [place] soon for a takedown when she became ill. 11. She did have postoperative anemia after hip repair and required 2 units of packed red blood cells and iron infusion. 12. She has had a cardiac cath with stents. 13. EGD. 14. Hysterectomy in the past. MEDICAL COURSE: The patient was followed by Dr. Pradhan and Dr. Martinez while on rehab unit. She exhibited some unusual behavior and stated that she sometimes has thoughts which she could not control, but did not act upon. Dr. Martinez requested [facility] psych eval with [facility]. They evaluated her and found her to be appropriate. Dr. Martinez of arranged for the patient to be transferred to semi diagnostic Mar[facility] unit [facility] on the . CBC on 04/01 showed WBC 13.2, H&H 9.3/29, platelet count 386,000. Chemistry on 04/01 showed normal electrolytes, BUN and creatinine. Glucose mildly elevated at 110 and total protein low at 5.4. Bilirubin total elevated at 1.2. Accu-Chek and 04/05 was 110. The patient was afebrile during her stay. Blood pressure is 119/75 on 04/06. Respirations 18, pulse 65. O2 sat 94% on room air. The patient was agreeable to transfer to [facility] psych unit at [facility]. Her dysphagia improved. It is reported that she requires dilatations every [address] weeks [address]. Martinez also noted patient had oversedation due to Requip and gabapentin both high doses. These medications were adjusted. REHABILITATION COURSE: OT notes that upon admission, she required set up for eating, grooming, and upper body dressing. Mod assist for bathing, lower body dressing. Max assist for toilet transfers. By discharge she had progressed to modified independent for eating, with set up for grooming, upper body dressing. Min assist for bathing. Mod assist for lower body dressing. Mod assist for toileting and min assist for toilet and shower transfers. The patient's progress was limited by her confusion and depression. She required encouragement to participate. PT notes upon admission, she was max assist for transfers, could ambulate 5 feet with a front wheeled walker with min assist. She did make some progress but it was limited due to poor willingness to participate and confusion. Upon discharge, she was standby assist for transfers. Min assist for gait 150 feet with a front wheel walker and was able to traverse a curb step with min assist. Speech therapy notes upon admission, the patient demonstrated moderate cognitive deficits in the area, problem solving, attention and memory as the patient discharged early to a geriatric psychiatric unit goals were not met and she remained min assist for comprehension, expression, social interaction, problem solving and memory. DISCHARGE INSTRUCTIONS: Dr. Martinez has arranged for the patient to be transferred to [facility] psyche unit in [place], [place] where she and Dr. Jacobs, Psychiatrist attend. She will have follow-up with orthopedics as per their schedule. Continue current diet. Continue of PT and OT at receiving facility. Ongoing colostomy care. Dr. Brewer is listed as PCP. Her incision site was healing well. She is weight-bearing as tolerated, right lower extremity. DISCHARGE MEDICATIONS: 1. Requip 6 mg p.o. at bedtime. 2. ASA 81 mg p.o. q.d. 3. Symbicort 2 puffs b.i.d. 4. Plavix 75 mg p.o. daily. 5. Restasis one drop both eyes b.i.d. 6. Cymbalta 60 mg p.o. daily. 7. Zetia 10 mg p.o. daily. 8. Lactulose 30 grams p.o. q.i.d. 9. Levothyroxine 100 mcg p.o. daily. 10. Lorazepam 1 mg p.o. b.i.d. 11. Toprol 50 mg p.o. daily. 12. Nitrostat 0.4 mg sublingual p.r.n. chest pain. 13. Omeprazole 40 mg p.o. daily. 14. Oxycodone APAP 10/325, 1 tablet p.o. q.6 h. p.r.n. pain. 15. Carafate 10 mL p.o. q.i.d. 16. Temazepam 30 mg p.o. at bedtime. 17. Tramadol 50 mg p.o. q.4 hours p.r.n. mild pain. DISCHARGE DIAGNOSES: 1. Rehabilitation ambulatory dysfunction secondary right intertrochanteric hip fracture, status post fall, repaired orthopedics, weight-bearing as tolerated. 2. Acute blood loss anemia, improving. 3. COPD, controlled with medications and inhalers. 4. Coronary artery disease, stable on medications. 5. Hypertension, controlled with medication. 6. Hypothyroidism compensated with replacement. 7. GERD, on medications, improved. 8. Anxiety, depression, on medications. 9. Esophageal stricture history requiring dilatation every 6 weeks associated with mild dysphagia. 10. Constipation, treated. 11. Chronic back pain, on medications. 12. Insomnia, on medication. 13. Cognitive impairment. 14. Status post coronary stent. 15. Colostomy status. 16. History of DVT. 17. History of tobaccoism. 18. Personality disorder. 19. Oversedation due to Requip and gabapentin with medications adjusted, improved. 20. Osteoporosis 21. Mild hyperbilirubinemia, have follow-up labs with Dr. Martinez. CONDITION AT DISCHARGE: Improved and stable. PROGNOSIS: Rehab prognosis appears fair for some continued improvement however due to her multiple comorbidities and psych disturbance and age, history of fall, fracture and repairs of joints, hopefully she will be able to advance to the point where she can go to an assisted living facility. Return home alone with not be recommended at this time. Job ID: [id number] Dictated Date: 04/21/2016 10:04:07 Waistline Joiner Overlock Date: 04/22/2016 09:46:48/radha
== END 2016-04-06 15:00 | DRG 560 ==
LOC: 4TH 11:07
PROVIDERS: ADMIT Physical Medicine & Rehabilitation; ATTEND Physical Medicine & Rehabilitation
DX: S72.141D Displaced intertrochanteric fracture of right femur, subsequent encounter for closed fracture with routine healing (principal); D62 Acute posthemorrhagic anemia; J44.9 Chronic obstructive pulmonary disease, unspecified; I25.10 Atherosclerotic heart disease of native coronary artery without angina pectoris; I10 Essential (primary) hypertension; E03.9 Hypothyroidism, unspecified; K21.9 Gastro-esophageal reflux disease without esophagitis; F41.9 Anxiety disorder, unspecified; F32.9 Major depressive disorder, single episode, unspecified; K22.2 Esophageal obstruction; R13.10 Dysphagia, unspecified; K59.00 Constipation, unspecified; M54.9 Dorsalgia, unspecified; G47.00 Insomnia, unspecified; F06.8 Other specified mental disorders due to known physiological condition; Z95.5 Presence of coronary angioplasty implant and graft; Z93.3 Colostomy status; Z86.718 Personal history of other venous thrombosis and embolism; Z87.891 Personal history of nicotine dependence
CPT/HCPCS: 36415; 80053; 82962; 85025; 94640; 94760

== ENCOUNTER → 2016-05-06 | Outpatient (CLI) | payer MEDICARE, MEDICAID ==
[~2016-05-06] MED LIST changes: +POLY17PO6 PO; +ROPI1TAB2 PO
--- OUTSIDE RECORDS SUMMARY | 2016-05-06 09:08 | XMS REPORT | Continuity of Care Document ---
Author Author [facility] Organization [facility] Address Unknown Phone Unavailable Care Team Providers Care Tree Thinner Name Role Phone Roro Brewer III PCP [phone] Source Comments Some departments are not documenting in the electronic medical record. If you do not see the information that you expected, contact Release of Information in the Health Information Management department at [phone] for further assistance in locating additional records.[facility] Active Allergies and Adverse Reactions Allergen [...] emulsion needed. fluticasone (FLONASE) 50 Apply 1 [place] to each Active mcg/actuation nasal spray nostril [...]
== END ==
LOC: CARD 09:05
PROVIDERS: ATTEND Internal Medicine
DX: Z51.81 Encounter for therapeutic drug level monitoring (principal); Z79.899 Other long term (current) drug therapy
CPT/HCPCS: 93005

== ENCOUNTER → 2016-05-18 | Outpatient (CLI) | payer MEDICARE, MEDICAID ==
[2016-05-18 07:47] LABS: BILIRUBIN,URINE NEGATIVE (NEGATIVE); KETONES,URINE NEGATIVE (NEGATIVE); LEUKOCYTE ESTERASE ,URINE NEGATIVE (NEGATIVE); NITRITE,URINE NEGATIVE (NEGATIVE); PH,URINE 7 (5-9); PROTEIN,URINE NEGATIVE (NEGATIVE); UROBILINOGEN,URINE NORMAL (NORMAL)
== END ==
LOC: CVS 07:42
PROVIDERS: ATTEND Internal Medicine
DX: N39.0 Urinary tract infection, site not specified (principal)
CPT/HCPCS: 81000

== ENCOUNTER → 2016-05-28 | Outpatient (CLI) | payer MEDICARE, MEDICAID | LOC: CVS 09:25 | PROVIDERS: ATTEND Internal Medicine | DX: R05 Cough (principal) | CPT/HCPCS: 87070; 87205 ==

== ENCOUNTER 2016-06-04 12:59 | Emergency (ER) | payer MEDICARE, MEDICAID ==
[~2016-06-04] VITALS: Ht 165.1 cm; Wt 72.6 kg
[~2016-06-04 12:59] MED LIST changes: -POLY17PO6 PO
[2016-06-04] MEDS ORDERED: fentaNYL INJECTION 100 MCG/2 ML AMP IVP STA (13:22)
--- NOTE | 2016-06-04 13:22 | ED Lower Extremity ---
General Chief Complaint: Lower Extremity Stated Complaint: L LEG PAIN Source: patient, EMS Exam Limitations: no limitations History of Present Illness Time seen by provider: 13:14 Initial Comments the patient presents to the ER because she said staff found her down and woke her up. She does not remember falling and staff/EMS do not endorse a fall. She was in rehabilitation via [facility] or her right hip fracture after a fall. Her pain in her right hip is much much better and fairly well-controlled on 10 mg hydrocodone as needed. However she stated she has a lot more pain in her left hip and knee that has been going on for the past several days progressively worsening. There is a report earlier from nursing by phone call from the facility staff that the patient had increased blood pressure and slurred speech and a right face droop as well as the patient not able to hold her head up in the last known well time was at breakfast. The patient denies any of these symptoms stating that she was just difficult to arouse and having a lot of pain in her left leg. EMS reports when they arrived that the patient was having no neurologic symptoms had equal lab director equal face no slurred speech was cooperative transferred to the [facility] on her own power and was complaining only of left knee and left hip pain and was not even initially wanting to come into the ER. The patient denies recent fever, chills, nausea, vomiting, rash, dysuria, shortness of breath beyond baseline, chest pain, pressure. Allergies and Home Medications Allergies Coded Allergies: No Known Drug Allergies (Unverified , 06/10/15) Home Medications Aspirin 81 Mg Tabec, 81 MG PO DAILY, (Reported) Budesonide/Formoterol Fumarate 10.2 Gm Hfa.aer.ad, 2 PUFF INH BID, (Reported) Clopidogrel Bisulfate 75 Mg Tablet, 75 MG PO DAILY, (Reported) LAST FILLED 12-08-15 #30 Cyclosporine 1 Each Droperette, 1 DROP OU BID, (Reported) LAST FILLED 07-16-15 Duloxetine HCl 60 Mg Capsule.dr, 60 MG PO DAILY, (Reported) Ezetimibe 10 Mg Tablet, 10 MG PO DAILY, (Reported) Lactulose 20 Gm/30 Ml Solution, 30 GM PO QID, #30 Prescribed by: YSABEL ABREU on 03/30/16 0839 Levothyroxine Sodium 100 Mcg Tablet, 100 MCG PO 0630, (Reported) Lorazepam 1 Mg Tablet, 1 MG PO BID, (Reported) Metoprolol Succinate 50 Mg Tab.er.24h, 50 MG PO DAILY, (Reported) Nitroglycerin 0.4 Mg Tab.subl, 0.4 MG SL UD PRN for CHEST PAIN, (Reported) Omeprazole 40 Mg Capsule.dr, 40 MG PO BID, (Reported) Oxycodone HCl/Acetaminophen 1 Each Tablet, 1 TAB PO Q6H PRN for PAIN, (Reported) Polyethylene Glycol 3350 17 Gm Powd.pack, 17 GM PO BID PRN PRN for CONSTIPATION- 1ST LINE, #1 Ref 0 Prescribed by: ASHLEY WATTS on 06/04/16 1502 Ropinirole HCl 1 Mg Tablet, 6 MG PO HS, #30 Prescribed by: LEXUS CHOWDHURY on 04/06/16 1017 Sucralfate 1 Gm/10 Ml Oral.susp, 10 ML PO QID, (Reported) Temazepam 30 Mg Capsule, 30 MG PO HS, (Reported) Tramadol HCl 50 Mg Tablet, 50 MG PO Q4H PRN for MILD PAIN, #30 Prescribed by: YSABEL ABREU on 03/30/16 0839 Constitutional: No chills, No diaphoresis, No fever, No weakness EENTM: No blurred vision, No double vision, No eye pain, No mouth pain, No nose pain Respiratory: No cough, No short of breath, No wheezing Cardiovascular: No chest pain, No edema, Hx of Intervention (3 stents), No syncope Gastrointestinal: No abdominal pain, No constipation, No diarrhea Genitourinary: No dysuria, No frequency, No hematuria Musculoskeletal: see HPI (Left hip and knee pain), No joint swelling Skin: No change in color, No pruritus, No rash Psychiatric/Neurological: Denies Headache Past Wrccaoq-Pizuyd-Gzcsjb Hx Patient Social History Alcohol Use: Denies Use Recreational Drug Use: No Smoking Status: Never a Smoker Type Used: Cigarettes Former Smoker/When Quit: Sep 27, 1997 Recent Hopitalizations: Yes (from 4th floor) Immunizations Up To Date Tetanus Booster (TDap): Unknown PED Vaccines UTD: No Date of Pneumonia Vaccine: Apr 22, 2009 Date of Influenza Vaccine: Mar 30, 2016 Seasonal Allergies Seasonal Allergies: Yes Surgeries HX Surgeries: Yes (COLOSTOMY, KYPHOPLASTY; CARDIAC CATH WITH STENTS X 2; EGD/ COLONOSCOPIES ) Surgeries: Abdominal, Appendectomy, Bowel Surgery, Cardiac, Coronary Stent, Hysterectomy, Orthopedic, Tonsillectomy Respiratory Hx Respiratory Disorders: Yes Respiratory Disorders: COPD Cardiovascular Hx Cardiac Disorders: Yes (STENTS X2) Cardiac Disorders: Coronary Artery Disease, Deep Vein Thrombosis, Hypertension Neurological Hx Neurological Disorders: Yes Neurological Disorders: Vertigo 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 System Hx 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 Disorders: No CLINIC SPECIALIST History: Hysterectomy Genitourinary Hx Genitourinary Disorders: Yes (INCONTINENCE) Genitourinary Disorders: UTI-Chronic Gastrointestinal Hx Gastrointestinal Disorders: Yes (COLOSTOMY; PARASTOMAL HERNIA) Gastrointestinal Disorders: Abdominal Hernia, Gastroesophageal Reflux, Diverticulosis, Esophagitis Musculoskeletal Hx Musculoskeletal Disorders: Yes (compression fracture status post kyphoplasty ) Musculoskeletal Disorders: Osteoporosis, Arthritis, Chronic Back Pain, Fractures Endocrine Hx Endocrine Disorders: Yes Endocrine Disorders: Hypothyroidsim HEENT HX ENT Disorders: Yes (FULL SET OF DENTURES) HEENT Disorders: Cataract Loss of Vision: Denies Hearing Impairment: Denies Cancer Hx Cancer: No Psychosocial Hx Psychiatric Problems: Yes Behavioral Health Disorders: Anxiety, Depression Integumentary HX Skin/Integumentary Disorder: No Blood Transfusions Hx Blood Disorders: Yes (DVT) Adverse Reaction to a Blood Tr: No Family Medical History Significant Family History: No Pertinent Family Hx Family Medial History: Family history: Hypertension G8 BROTHER Myocardial infarction 19 MOTHER G8 BROTHER Physical Exam Vital Signs Vital Sign - Last 12Hours 06/04/16 12:59 Temp 97.9 Pulse 61 Resp 16 B/P (MAP) 116/76 Pulse Ox 98 Capillary Refill : General Appearance: WD/WN, no apparent distress HEENT: PERRL/EOMI, normal ENT inspection, pharynx normal Neck: non-tender, full range of motion, supple, normal inspection Cardiovascular: normal peripheral pulses, regular rate, rhythm, no edema, no JVD, no murmur Respiratory: chest non-tender, lungs clear, normal breath sounds, no respiratory distress Gastrointestinal: normal bowel sounds, non tender, soft, other (Right sided colostopy with dusky pink stoma and mod soft stool. No gross blood.) Back: normal inspection, no CVA tenderness, no vertebral tenderness Hips: right hip non-tender, right hip normal inspection, right hip normal range of motion, left hip bone tenderness, left hip pain, left hip soft tissue tenderness Legs: left leg other (Lobato's positive with calf tenderness to palpation but no erythema or palpable masses. ) Knees: right knee non-tender, right knee normal inspection, right knee normal range of motion, right knee no evidence of injury, left knee pain, left knee soft tissue tenderness Ankles: bilateral ankle non-tender, bilateral ankle normal inspection, bilateral ankle normal range of motion, bilateral ankle no evidence of injury Feet: bilateral foot non-tender, bilateral foot normal inspection, bilateral foot normal range of motion, bilateral foot no evidence of injury Neurologic/Tendon: normal sensation Neurologic/Psychiatric: technology architect II-XII nml as tested, no motor/sensory deficits, alert, normal mood/affect, oriented x 3, other (No slurring speech or facial droop. ) Skin: normal color, warm/dry Lymphatic: no adenopathy Progress/Results/Core Measures Results/Orders Lab Results Laboratory Tests Test 06/04/16 13:15 06/04/16 14:10 Range/Units Glucometer 84 70-110 MG/DL White Blood Count 10.3 4.3-11.0 10^3/uL Red Blood Count 4.51 4.35-5.85 10^6/uL Hemoglobin 12.7 11.5-16.0 G/DL Hematocrit 39 35-52 % Mean Corpuscular Volume 87 80-99 FL Mean Corpuscular Hemoglobin 28 25-34 PG Mean Corpuscular Hemoglobin Concent 32 32-36 G/DL Red Cell Distribution Width 16.4 H 10.0-14.5 % Platelet Count 402 H 130-400 10^3/uL Mean Platelet Volume 9.8 7.4-10.4 FL Neutrophils (%) (Auto) 57 42-75 % Lymphocytes (%) (Auto) 31 12-44 % Monocytes (%) (Auto) 7 0-12 % Eosinophils (%) (Auto) 4 0-10 % Basophils (%) (Auto) 1 0-10 % Neutrophils # (Auto) 5.8 1.8-7.8 X 10^3 Lymphocytes # (Auto) 3.2 1.0-4.0 X 10^3 Monocytes # (Auto) 0.7 0.0-1.0 X 10^3 Eosinophils # (Auto) 0.4 H 0.0-0.3 10^3/uL Basophils # (Auto) 0.1 0.0-0.1 10^3/uL Sodium Level 139 135-145 MMOL/L Potassium Level 4.6 3.6-5.0 MMOL/L Chloride Level 104 98-107 MMOL/L Carbon Dioxide Level 25 21-32 MMOL/L Anion Gap 10 5-14 MMOL/L Blood Urea Nitrogen 15 7-18 MG/DL Creatinine 0.86 0.60-1.30 MG/DL Estimat Glomerular Filtration Rate > 60 BUN/Creatinine Ratio 17 Glucose Level 73 70-105 MG/DL Calcium Level 9.8 8.5-10.1 MG/DL Total Bilirubin 0.3 0.1-1.0 MG/DL Aspartate Amino Transf (AST/SGOT) 15 5-34 U/L Alanine Aminotransferase (ALT/SGPT) 6 0-55 U/L Alkaline Phosphatase 104 40-136 U/L Troponin I < 0.30 <0.30 NG/ML Total Protein 6.4 6.4-8.2 G/DL Albumin 3.5 3.2-4.5 G/DL My Orders Orders - ASHLEY WATTS Cbc With Automated Diff (06/04/16 13:22) Comprehensive Metabolic Panel (06/04/16 13:22) Troponin I (06/04/16 13:22) Chest Pa/Lat (2 View) (06/04/16 13:22) Knee, Left, 3 Views (06/04/16 13:22) Hip, Left, 2 Views (06/04/16 13:22) Fentanyl Injection (Sublimaze Injection (06/04/16 13:22) Ondansetron Injection (Zofran Injectio (06/04/16 13:30) Us Venous Lower Ext Lt (06/04/16 13:28) Medications Given in ED Current Medications Medications Dose Ordered Sig/Perez Route Start Time Stop Time Status Last Admin Dose Admin Ondansetron HCl 4 mg ONCE ONCE IVP 06/04/16 13:30 06/04/16 13:31 DC 06/04/16 14:14 4 MG Vital Signs/I&O Vital Sign - Last 12Hours 06/04/16 06/04/16 12:59 14:14 Temp 97.9 97.9 Pulse 61 Resp 16 B/P (MAP) 116/76 Pulse Ox 98 Progress Note : Time: 13:27 Progress Note patient with an unclear history reports with now focal symptoms of left hip and left knee pain. She has positive tenderness to her calf and a recent surgery 2 months ago for right hip. She denies she is on anticoagulants. Concern for DVT given her mild shortness of breath. We'll treat her pain and get imaging of the painful areas as she may have had a fall?. Also get ultrasound Doppler of left lower extremity and panel of labs looking for evidence of infection. No urinalysis as the patient is without dysuria. 1500: She is much more comfortable with pain medicine and states she feels better. Labs are all unremarkable. Chest x-ray shows some new interval changes on the T11 and L1 vertebral bodies that may be consistent with new compression fractures. The recommendation is that if it clinically correlates to her pain she should consider an MRI. This could be set up outpatient by her primary care physician this week. Diagnostic Imaging Diagonstic Imaging: Xray Plain Films/CT/US/NM/MRI: chest Comments no acute cardiopulmonary processes. Stable osteopenic parents and status post kyphoplasty is in the thoracic and upper lumbar spine. VIA [facility]. [place], [place] NAME: WEST SADLER [facility] REC#: [id number] PT STATUS: REG ER : 1940 PHYSICIAN: ASHLEY WATTS MD ADMIT DATE: 06/04/16/ER Draft Date of Exam:06/04/16 CHEST PA/LAT (2 VIEW) West SADLER EXAM: PA and lateral chest at 1:54 p.m. INDICATION: Fell FINDINGS: The cardiomegaly noted on 03/26/2016 is again evident and no different. The lungs remain clear. There still no sign of failure, pneumonia or of a pleural effusion to suggest an acute abnormality. The lateral view again shows that there has been prior kyphoplasty procedures of T8, T10 and T12. These findings are similar to the prior CT thoracic spine exam of 06/22/2015. In the interval since the previous exam, mild anterior wedging of T11 has developed. There has also been some loss of height of L1. These injuries may be long-standing in nature. If clinical concern regarding an acute abnormality persists, however, then MRI would be recommended for additional study. IMPRESSION: 1. There is no evidence for acute cardiopulmonary abnormality. 2. There are post kyphoplasty changes involving T8, T10 and T12. The appearance of the T. 11 and L1 vertebral bodies may be long-standing in nature but the possibly of a subacute compression fracture should be considered. Recommendations as above. Dictated on workstation # [id number] Dict: 06/04/16 1352 Trans: 06/04/16 1454 [facility] [id number] Interpreted by: GRACIA LOPEZ MD Electronically signed by: Reviewed: Reviewed by [place] Diagonstic Imaging: Xray Plain Films/CT/US/NM/MRI: hip (left), knee (left) Comments osteopenicand osteo-arthritis; but no acute osseous or soft tissue abnormality noted. [email or web address]. [place], [place] [facility] REC[facility] [id number] PT STATUS: REG ER : 1940 PHYSICIAN: ASHLEY WATTS MD ADMIT DATE: 06/04/16/ER Draft Date of Exam:06/04/16 HIP, LEFT, 2 VIEWS EXAM: Left hip at 1:56. INDICATION: Hip pain AP and lateral views were obtained. FINDINGS: There is no fracture, dislocation or acute bony abnormality evident. There is moderate degenerative disease involving the hip joint. The degenerative changes are similar to the prior exam to 03/26/2016. The soft tissues are unremarkable. IMPRESSION: 1. There is no evidence for an acute bony abnormality. 2. Clinical concern regarding an underlying injury persists, then MRI would be recommended for further study. Dictated on workstation # [id number] Dict: 06/04/16 1350 Trans: 06/04/16 1510 [facility] [id number] Interpreted by: GRACIA LOPEZ MD Electronically signed by: [email or web address]. [place], [place] NAME: WE[facility] SADL[facility] REC#: [id number] PT STATUS: REG ER : 1940 PHYSICIAN: ASHLEY WATTS MD ADMIT DATE: 06/04/16/ER Draft Date of Exam:06/04/16 KNEE, LEFT, 3 VIEWS West SADLER INDICATION: Fell, Knee pain. EXAM: Left knee. FINDINGS: 3 views were obtained. There is no fracture, dislocation or acute bony abnormality evident. As noted on the previous left tibia and fibula exam of 08/02/2008, there is mild degenerative disease involving the medial compartment of the knee joint. The patellofemoral space and lateral compartment are fairly well-maintained. There is now a small 6 mm loose body in the posteromedial aspect of the knee joint. The soft tissues are unremarkable. IMPRESSION: 1. There is no acute bony abnormality identified. 2. A small loose body has developed in the interval since the prior exam. If further study is desired, CT or MRI would be recommended. Dictated on workstation # [id number] Dict: 06/04/16 1400 Trans: 06/04/16 1501 [facility] [id number] Interpreted by: GRACIA LOPEZ MD Electronically signed by: Reviewed: Reviewed by Me Diagonstic Imaging: Ultrasound Plain Films/CT/US/NM/MRI: leg (LLE) Comments [facility]IA [place], [place] NAME: WE[facility] SADLER [facility] REC#: [id number] PT STATUS: REG ER : 1940 PHYSICIAN: ASHLEY WATTS MD ADMIT DATE: 06/04/16/ER Draft Date of Exam:06/04/16 US VENOUS LOWER EXT LT PROCEDURE: US left lower extremity venous. TECHNIQUE: Multiple real-time grayscale images were obtained over the left lower extremity in various projections. Additional duplex Doppler and color Doppler images were also obtained. INDICATION: Left leg pain. COMPARISON: None. FINDINGS: The common femoral vein, superficial femoral vein, profunda femoris, and popliteal veins are normal. These vessels show normal compressibility, color flow, and Doppler augmentation. The deep calf veins, although not very well seen, demonstrate no distinct intraluminal thrombus. IMPRESSION: Negative venous Doppler of the left lower extremity. Dictated on workstation # [id number] Dict: 06/04/16 1518 Trans: 06/04/16 1520 [id number] Interpreted by: REBEKAH RAHMAN MD Electronically signed by: Reviewed: Reviewed by Me Departure Impression Impression: Primary Impression: Leg pain, left Additional Impressions: Altered mental status Qualified Codes: R41.82 - Altered mental status, unspecified Spinal fracture Qualified Codes: S22.089A - Unspecified fracture of t11-T12 vertebra, initial encounter for closed fracture Disposition: 01 HOME, SELF-CARE Condition: Stable Departure-Patient Inst. Decision time for Depature: 15:51 Referrals: TORIBIO FOFANA DO (PCP/Family) Primary Care Physician Add. Discharge Instructions: We did not find any evidence of direct fracture, vein clots, infection, tumor to explain your pain of your left hip. You do have some changes in your spine that could be new vertebral body fractures that may be causing your pain. This should be followed up with an MRI outpatient with your primary care physician this week. He also have a new finding of a loose body in your left knee since last x-ray of your knee and this could be correlated with a CAT scan or MRI outpatient as well. If you are continuing to have this pain we would recommend addressing your pain medicines with your primary care provider. Make sure you' re taking MiraLAX up to 4 times a day as necessary to keep your bowels moving routinely. If you have new symptoms or worsening symptoms he should return to the ER immediately. Make sure drinking plenty of fluids. All discharge instructions reviewed with patient and/or family. Voiced understanding. Scripts Polyethylene Glycol 3350 (Miralax) 17 Gm Powd.pack 17 GM PO BID PRN Y for CONSTIPATION-1ST LINE, #1 EACH 0 Refills Prov: ASHLEY WATTS 06/04/16 Copy Copies To 1: TORIBIO FOFANA TITUS J Jun 04, 2016 13:22
[2016-06-04] MEDS ORDERED: ONDANSETRON 4 MG/2 ML (SDV) Z0FRAN IVP ONE (13:30)
[2016-06-04 14:25] LABS: BASOPHILS # (AUTO) 0.1 10^3/uL (0.0-0.1); BASOPHILS % (AUTO) 1 % (0-10); EOSINOPHILS # (AUTO) 0.4 10^3/uL (0.0-0.3); EOSINOPHILS % (AUTO) 4 % (0-10); LYMPHOCYTES # (AUTO) 3.2 X 10^3 (1.0-4.0); LYMPHOCYTES % (AUTO) 31 % (12-44); MEAN CORPUSCULAR HEMOGLOBIN 28 PG (25-34); MEAN CORPUSCULAR HGB CONC 32 G/DL (32-36); MEAN CORPUSCULAR VOLUME 87 FL (80-99); MEAN PLATELET VOLUME 9.8 FL (7.4-10.4); MONOCYTES # (AUTO) 0.7 X 10^3 (0.0-1.0); MONOCYTES % (AUTO) 7 % (0-12); NEUTROPHILS # (AUTO) 5.8 X 10^3 (1.8-7.8); NEUTROPHILS % (AUTO) 57 % (42-75); PLATELET COUNT 402 10^3/uL (130-400); RED BLOOD COUNT 4.51 10^6/uL (4.35-5.85); RED CELL DISTRIBUTION WIDTH 16.4 % (10.0-14.5); WHITE BLOOD COUNT 10.3 10^3/uL (4.3-11.0)
[2016-06-04 14:45] LABS: ALANINE AMINOTRANSFERASE 6 U/L (0-55); ALBUMIN 3.5 G/DL (3.2-4.5); ANION GAP 10 MMOL/L (5-14); ASPARTATE AMINO TRANSFERASE 15 U/L (5-34); BILIRUBIN,TOTAL 0.3 MG/DL (0.1-1.0); BLOOD UREA NITROGEN 15 MG/DL (7-18); BUN/CREATININE RATIO 17; CALCIUM 9.8 MG/DL (8.5-10.1); CARBON DIOXIDE 25 MMOL/L (21-32); CHLORIDE 104 MMOL/L (98-107); CREATININE SERUM 0.86 MG/DL (0.60-1.30); GFR ESTIMATED > 60; GLUCOSE 73 MG/DL (70-105); SODIUM 139 MMOL/L (135-145); TOTAL PROTEIN 6.4 G/DL (6.4-8.2)
[2016-06-04 14:46] LABS: POTASSIUM 4.6 MMOL/L (3.6-5.0)
[2016-06-04 14:51] LABS: TROPONIN I < 0.30 NG/ML (<0.30)
--- NOTE | 2016-06-04 14:54 | Diagnostic Imaging Report ---
[place] SADLER EXAM: PA and lateral chest at 1:54 p.m. INDICATION: Fell FINDINGS: The cardiomegaly noted on 03/26/2016 is again evident and no different. The lungs remain clear. There still no sign of failure, pneumonia or of a pleural effusion to suggest an acute abnormality. The lateral view again shows that there has been prior kyphoplasty procedures of T8, T10 and T12. These findings are similar to the prior CT thoracic spine exam of 06/22/2015. In the interval since the previous exam, mild anterior wedging of T11 has developed. There has also been some loss of height of L1. These injuries may be long-standing in nature. If clinical concern regarding an underlying abnormality persists, however, then MRI would be recommended for additional study. IMPRESSION: 1. There is no evidence for acute cardiopulmonary abnormality. 2. There are post kyphoplasty changes involving T8, T10 and T12. The appearance of the T11 and L1 vertebral bodies may be long-standing in nature but the possibly of subacute compression fractures should be considered. Recommendations as above. Dictated by: Dictated on workstation # [id number]
[2016-06-04] MEDS ORDERED: POLY17PO6 PO (15:02)
--- NOTE | 2016-06-04 15:02 | Diagnostic Imaging Report ---
April SADLER INDICATION: Fell, Knee pain. EXAM: Left knee. FINDINGS: 3 views were obtained. There is no fracture, dislocation or acute bony abnormality evident. As noted on the previous left tibia and fibula exam of 08/02/2008, there is mild degenerative disease involving the medial compartment of the knee joint. The patellofemoral space and lateral compartment are fairly well-maintained. There is now a small 6 mm loose body in the posteromedial aspect of the knee joint. The soft tissues are unremarkable. IMPRESSION: 1. There is no acute bony abnormality identified. 2. A small loose body has developed in the interval since the prior exam. If further study is desired, CT or MRI would be recommended. Dictated by: Dictated on workstation # [id number]
--- NOTE | 2016-06-04 15:10 | Diagnostic Imaging Report ---
EXAM: Left hip at 1:56. INDICATION: Hip pain AP and lateral views were obtained. FINDINGS: There is no fracture, dislocation or acute bony abnormality evident. There is moderate degenerative disease involving the hip joint. The degenerative changes are similar to the prior exam to 03/26/2016. The soft tissues are unremarkable. IMPRESSION: 1. There is no evidence for an acute bony abnormality. 2. If clinical concern regarding an underlying injury persists, then MRI would be recommended for further study. Dictated by: Dictated on workstation # [id number]
--- NOTE | 2016-06-04 15:20 | Diagnostic Imaging Report ---
PROCEDURE: US left lower extremity venous. TECHNIQUE: Multiple real-time grayscale images were obtained over the left lower extremity in various projections. Additional duplex Doppler and color Doppler images were also obtained. INDICATION: Left leg pain. COMPARISON: None. FINDINGS: The common femoral vein, superficial femoral vein, profunda femoris, and popliteal veins are normal. These vessels show normal compressibility, color flow, and Doppler augmentation. The deep calf veins, although not very well seen, demonstrate no distinct intraluminal thrombus. IMPRESSION: Negative venous Doppler of the left lower extremity. Dictated by: Dictated on workstation # [id number]
[2016-06-04 17:20] VITALS: BP 118/76
== END 2016-06-04 17:23 | disposition home or self-care (01) ==
LOC: EDUNIT# 12:59 → ER 13:00
DX: M25.552 Pain in left hip (principal); M25.562 Pain in left knee; R41.82 Altered mental status, unspecified; S22.080A Wedge compression fracture of T11-T12 vertebra, initial encounter for closed fracture; I10 Essential (primary) hypertension; I25.10 Atherosclerotic heart disease of native coronary artery without angina pectoris; Z93.3 Colostomy status; Z95.5 Presence of coronary angioplasty implant and graft; W06.XXXA Fall from bed, initial encounter; Y92.122 Bedroom in nursing home as the place of occurrence of the external cause; Y93.84 Activity, sleeping; Y99.8 Other external cause status
CPT/HCPCS: 36415; 71020; 73502; 73562; 80053; 82962; 84484; 85025; 96374; 96375

== ENCOUNTER 2016-07-01 18:22 | Emergency (ER) | payer MEDICARE, MEDICAID ==
[~2016-07-01] VITALS: Ht 165.1 cm; Wt 72.6 kg
[~2016-07-01 18:22] MED LIST changes: +POLY17PO6 PO
[2016-07-01] MEDS ORDERED: KETOROLAC 60 MG/2 ML VIAL IM STA (18:47)
[2016-07-01] MEDS ORDERED: HYDROcodone/APAP 7.5 MG/325 MG (LORTAB, LORCET PLUS) TABLET PO STA (18:47)
[2016-07-01] MEDS ORDERED: HYDROcodone/APAP 7.5 MG/325 MG (LORTAB, LORCET PLUS) TABLET PO ONE (18:50)
[2016-07-01] MEDS ORDERED: KETOROLAC 60 MG/2 ML VIAL IM ONE (18:50)
--- NOTE | 2016-07-01 19:01 | ED Hip Pain/Injury ---
General Chief Complaint: Lower Extremity Stated Complaint: L LEG PAIN Nursing Triage Note: to ER by [facility] with reports of left hip to leg pain, which is a chronic issue for this patient. Patient reports that her pain has increased over the past several weeks and she has called her doctor, who told her to come to the ER. Source: patient Exam Limitations: no limitations History of Present Illness Time seen by provider: 18:30 Initial Comments Here with report of pain to the left hip. She states that this is been going on for a month and has persisted. She has gone to her doctor for injection. Has not worked. Her normal pain medicines are not working either. Denies any recent trauma or injury. Timing/Duration: week, getting worse Severity: mild, moderate Location: hip (L) Method of Injury: unknown Modifying Factors: Worse With Movement, Improves With Pain Medication Associated Symptoms: No fatigue, No fever, No groin pain, No muscle aches, pain radiating to knees Allergies and Home Medications Allergies Coded Allergies: No Known Drug Allergies (Unverified , 06/10/15) Home Medications Aspirin 81 Mg Tabec, 81 MG PO DAILY, (Reported) Budesonide/Formoterol Fumarate 10.2 Gm Hfa.aer.ad, 2 PUFF INH BID, (Reported) Clopidogrel Bisulfate 75 Mg Tablet, 75 MG PO DAILY, (Reported) LAST FILLED 12-08-15 #30 Cyclosporine 1 Each Droperette, 1 DROP OU BID, (Reported) LAST FILLED 07-16-15 Duloxetine HCl 60 Mg Capsule.dr, 60 MG PO DAILY, (Reported) Ezetimibe 10 Mg Tablet, 10 MG PO DAILY, (Reported) Lactulose 20 Gm/30 Ml Solution, 30 GM PO QID, #30 Prescribed by: YSABEL ABREU on 03/30/16 0839 Levothyroxine Sodium 100 Mcg Tablet, 100 MCG PO 0630, (Reported) Lorazepam 1 Mg Tablet, 1 MG PO BID, (Reported) Metoprolol Succinate 50 Mg Tab.er.24h, 50 MG PO DAILY, (Reported) Nitroglycerin 0.4 Mg Tab.subl, 0.4 MG SL UD PRN for CHEST PAIN, (Reported) Omeprazole 40 Mg Capsule.dr, 40 MG PO BID, (Reported) Oxycodone HCl/Acetaminophen 1 Each Tablet, 1 TAB PO Q6H PRN for PAIN, (Reported) Polyethylene Glycol 3350 17 Gm Powd.pack, 17 GM PO BID PRN PRN for CONSTIPATION- 1ST LINE, #1 Ref 0 Prescribed by: ASHLEY WATTS on 06/04/16 1502 Ropinirole HCl 1 Mg Tablet, 6 MG PO HS, #30 Prescribed by: LEXUS CHOWDHURY on 04/06/16 1017 Sucralfate 1 Gm/10 Ml Oral.susp, 10 ML PO QID, (Reported) Temazepam 30 Mg Capsule, 30 MG PO HS, (Reported) Tramadol HCl 50 Mg Tablet, 50 MG PO Q4H PRN for MILD PAIN, #30 Prescribed by: YSABEL ABREU on 03/30/16 0839 Constitutional: see HPI, No chills, No fever Respiratory: no symptoms reported Cardiovascular: no symptoms reported Gastrointestinal: no symptoms reported Musculoskeletal: see HPI, muscle pain, No muscle weakness Skin: no symptoms reported Psychiatric/Neurological: No Symptoms Reported Past Cwoxnim-Aegzef-Fcwsjv Hx Patient Social History Alcohol Use: Denies Use Recreational Drug Use: No Smoking Status: Former Smoker Type Used: Cigarettes Former Smoker/When Quit: Sep 27, 1997 Recent Foreign Travel: No Contact w/Someone Who Travel: No Recent Infectious Disease Expo: No Recent Hopitalizations: Yes (from 4th floor) Immunizations Up To Date Tetanus Booster (TDap): Unknown PED Vaccines UTD: No Date of Pneumonia Vaccine: Apr 22, 2009 Date of Influenza Vaccine: Mar 30, 2016 Seasonal Allergies Seasonal Allergies: Yes Surgeries HX Surgeries: Yes (COLOSTOMY, KYPHOPLASTY; CARDIAC CATH WITH STENTS X 2; EGD/ COLONOSCOPIES ) Surgeries: Abdominal, Appendectomy, Bowel Surgery, Cardiac, Coronary Stent, Hysterectomy, Orthopedic, Tonsillectomy Respiratory Hx Respiratory Disorders: Yes Respiratory Disorders: COPD Cardiovascular Hx Cardiac Disorders: Yes (STENTS X2) Cardiac Disorders: Coronary Artery Disease, Deep Vein Thrombosis, Hypertension Neurological Hx Neurological Disorders: No Neurological Disorders: Vertigo 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 System Hx 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 Disorders: No 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 Genitourinary Hx Genitourinary Disorders: Yes (INCONTINENCE) Genitourinary Disorders: UTI-Chronic Gastrointestinal Hx Gastrointestinal Disorders: Yes (COLOSTOMY; PARASTOMAL HERNIA) Gastrointestinal Disorders: Abdominal Hernia, Gastroesophageal Reflux, Diverticulosis, Esophagitis Musculoskeletal Hx Musculoskeletal Disorders: Yes (compression fracture status post kyphoplasty ) Musculoskeletal Disorders: Osteoporosis, Arthritis, Chronic Back Pain, Fractures Endocrine Hx Endocrine Disorders: Yes (HYPOTHYROID) Endocrine Disorders: Hypothyroidsim HEENT HX ENT Disorders: Yes (FULL SET OF DENTURES) HEENT Disorders: Cataract Loss of Vision: Denies Hearing Impairment: Denies Cancer Hx Cancer: No Psychosocial Hx Psychiatric Problems: Yes Behavioral Health Disorders: Anxiety, Depression Integumentary HX Skin/Integumentary Disorder: No Blood Transfusions Hx Blood Disorders: Yes (anemia post op epideral site,bld transfusion) Adverse Reaction to a Blood Tr: No Reviewed Nursing Assessment Reviewed/Agree w Nursing PMH: Yes Family Medical History Significant Family History: No Pertinent Family Hx Family Medial History: Family history: Hypertension G8 BROTHER Myocardial infarction 19 MOTHER G8 BROTHER Physical Exam Vital Signs Vital Sign - Last 12Hours 07/01/16 18:38 Temp 98.2 Pulse 65 Resp 16 B/P (MAP) 147/91 Pulse Ox 94 O2 Delivery Room Air Capillary Refill : Less Than 3 Seconds General Appearance: No Apparent Distress, WD/WN Cardiovascular: Regular Rate, Rhythm, No Murmur Respiratory: Lungs Clear, Normal Breath Sounds Gastrointestinal: Non Tender, Soft Extremity: Pelvis Stable, Other (tender along the lateral upper leg on the left. No obvious deformity. No rotation or shortening. Distal pulses and sensation intact.) Neurologic/Psychiatric: Alert, Oriented x3 Skin: Normal Color, Warm/Dry Progress/Results/Core Measures Results/Orders My Orders Orders - ISABELLA FARIAS MD Hydrocodone/Apap 7.5/325 Tab (Lortab 7. (07/01/16 18:47) Ketorolac Injection (Toradol Injection) (07/01/16 18:47) Pelvis (07/01/16 18:47) Hip, Left, 2 Views (07/01/16 18:47) Hydrocodone/Apap 7.5/325 Tab (Lortab 7. (07/01/16 18:50) Ketorolac Injection (Toradol Injection) (07/01/16 18:50) Vital Signs/I&O Vital Sign - Last 12Hours 07/01/16 07/01/16 07/01/16 07/01/16 18:38 18:55 18:55 18:56 Temp 98.2 98.2 98.2 98.2 Pulse 65 Resp 16 B/P (MAP) 147/91 Pulse Ox 94 O2 Delivery Room Air Blood Pressure Mean: 109 Progress Note : Progress Note Seen and evaluated. Patient requesting pain medicine. X-ray of left hip and pelvis ordered. Reviewed previous imaging done on 06/04/16. Toradol 60 mg IM and hydrocodone 7.5/325 one tab by mouth given. Improved after. No acute fractures noted on x-ray. Consideration of MRI if clinically indicated. I will send chart to Dr. Brewer. Discharged home with return precautions. Patient verbalize understanding instructions and agreement with plan. Diagnostic Imaging Diagonstic Imaging: Xray Plain Films/CT/US/NM/MRI: hip Comments VIA [place], [place] NAME: [facility] REC#: [id number] PT STATUS: REG ER : 1940 PHYSICIAN: ISABELLA FARIAS MD ADMIT DATE: 07/01/16/ER Draft Date of Exam:07/01/16 HIP, LEFT, 2 VIEWS INDICATION: None given. FINDINGS: There is no evidence of dislocation. There is no plain film evidence of proximal femoral fracture and the visualized portion of the pelvic ring appears intact without evidence of diastasis of the pubic symphysis or SI joints. Moderate osteoarthritic joint space narrowing of the left is again demonstrated. IMPRESSION: 1. Left hip osteoarthritis without plain film demonstration of acute fracture or dislocation. If continued hip pain, further assessment with MRI could be considered as the sensitivity of this examination is diminished secondary to low bone mineral density. Dictated on workstation # [id number] Dict: 07/01/161917 Trans: 07/01/161920 [id number] Interpreted by: SANKET MONTALVO MD Electronically signed by: Diagonstic Imaging: Xray Plain Films/CT/US/NM/MRI: pelvis Comments NAME: [facility] REC#: [id number] PT STATUS: REG ER : 1940 PHYSICIAN: ISABELLA FARIAS MD ADMIT DATE: 07/01/16/ER Signed Date of Exam: 07/01/16 PELVIS INDICATION: Left hip and leg pain. FINDINGS: There are previous postsurgical changes in the right hip. Proximal left femur is intact. Bony pelvis is intact. There has been a previous kyphoplasty at L5. IMPRESSION: No acute fracture or dislocation. Postsurgical changes in the right hip as well as previous L5 kyphoplasty. Dictated by: Dictated on workstation # [id number] Dict: 07/01/161918 Trans: 07/01/161934 Interpreted by: GUERRERO STEVEN Electronically signed by: GUERRERO STEVEN 07/01/161934 Departure Impression Impression: Primary Impression: Left hip pain Disposition: HOME, SELF-CARE Condition: Stable Departure-Patient Inst. Decision time for Depature: 19:49 Referrals: TORIBIO BREWER DO (PCP/Family) Primary Care Physician Patient Instructions: Hip Pain (DC) Add. Discharge Instructions: All discharge instructions reviewed with patient and/or family. Voiced understanding. Take medications as directed. Follow-up with your Dr. on Monday for recheck and further evaluation. Return for worsening, fever, vomiting, weakness, breathing problems or other concerns as needed. You may use icy hot cream with lidocaine or Aspercreme with lidocaine topical preparations per package directions to area of pain. You may use ice packs as needed. Copy Copies To 1: TORIBIO BREWER TIMOTHY D MD July 01, 2016 19:01
--- NOTE | 2016-07-01 19:21 | Diagnostic Imaging Report ---
INDICATION: None given. FINDINGS: There is no evidence of dislocation. There is no plain film evidence of proximal femoral fracture and the visualized portion of the pelvic ring appears intact without evidence of diastasis of the pubic symphysis or SI joints. Moderate osteoarthritic joint space narrowing of the left is again demonstrated. IMPRESSION: 1. Left hip osteoarthritis without plain film demonstration of acute fracture or dislocation. If continued hip pain, further assessment with MRI could be considered as the sensitivity of this examination is diminished secondary to low bone mineral density. Dictated by: Dictated on workstation # [id number]
--- NOTE | 2016-07-01 19:24 | Diagnostic Imaging Report ---
INDICATION: Left hip and leg pain. FINDINGS: There are previous postsurgical changes in the right hip. Proximal left femur is intact. Bony pelvis is intact. There has been a previous kyphoplasty at L5. IMPRESSION: No acute fracture or dislocation. Postsurgical changes in the right hip as well as previous L5 kyphoplasty. Dictated by: Dictated on workstation # [id number]
[2016-07-01 19:53] VITALS: BP 147/91
== END 2016-07-01 19:53 | disposition home or self-care (01) ==
LOC: EDUNIT# 18:22 → ER 18:23
DX: M16.12 Unilateral primary osteoarthritis, left hip (principal); I10 Essential (primary) hypertension; J44.9 Chronic obstructive pulmonary disease, unspecified; I25.10 Atherosclerotic heart disease of native coronary artery without angina pectoris; Z79.82 Long term (current) use of aspirin; Z79.02 Long term (current) use of antithrombotics/antiplatelets; Z79.899 Other long term (current) drug therapy; Z87.891 Personal history of nicotine dependence; Z95.5 Presence of coronary angioplasty implant and graft; Z93.3 Colostomy status
CPT/HCPCS: 72170; 73502; 96372; 99283

== ENCOUNTER 2016-07-25 10:48 | Emergency (ER) | payer MEDICARE, MEDICAID ==
[~2016-07-25] VITALS: Ht 162.6 cm; Wt 77.1 kg
--- NOTE | 2016-07-25 11:37 | ED Back Pain ---
General Chief Complaint: Hip/Pelvic Problems Stated Complaint: CHRONIC PAIN Nursing Triage Note: c/o chronic hip has pain. Pt is out of her oxycodone. Pt is getting help through home health and PT. Nursing Sepsis Screen: No Definite Risk Source of Information: Patient Exam Limitations: No Limitations History of Present Illness Time Seen by Provider: 11:37 Initial Comments 76 yo female patient presents to the ED with c/o chronic left hip pain, worse today. Patient states she is out of her oxycodone and has contacted Dr. Brewer's office 3 times in the last week for scheduling appointment and/or refill. States she was told they could not get her in and that they were scheduling her for a pain management consult. Location: Other (left hip) Timing/Duration: Other (chronic left hip pain, worse today.) Pain/Injury Location: Other (left hip) Method of Injury: Unknown Modifying Factors: Worse With Movement Associated Symptoms: No loss of bladder control, No loss of bowel control Allergies and Home Medications Allergies Coded Allergies: No Known Drug Allergies (Unverified , 06/10/15) Home Medications Aspirin 81 Mg Tabec, 81 MG PO DAILY, (Reported) Budesonide/Formoterol Fumarate 10.2 Gm Hfa.aer.ad, 2 PUFF INH BID, (Reported) Clopidogrel Bisulfate 75 Mg Tablet, 75 MG PO DAILY, (Reported) LAST FILLED 12-08-15 #30 Cyclosporine 1 Each Droperette, 1 DROP OU BID, (Reported) LAST FILLED 07-16-15 Duloxetine HCl 60 Mg Capsule.dr, 60 MG PO DAILY, (Reported) Ezetimibe 10 Mg Tablet, 10 MG PO DAILY, (Reported) Lactulose 20 Gm/30 Ml Solution, 30 GM PO QID, #30 Prescribed by: YSABEL ABREU on 03/30/16 0839 Levothyroxine Sodium 100 Mcg Tablet, 100 MCG PO 0630, (Reported) Lorazepam 1 Mg Tablet, 1 MG PO BID, (Reported) Metoprolol Succinate 50 Mg Tab.er.24h, 50 MG PO DAILY, (Reported) Nitroglycerin 0.4 Mg Tab.subl, 0.4 MG SL UD PRN for CHEST PAIN, (Reported) Omeprazole 40 Mg Capsule.dr, 40 MG PO BID, (Reported) Oxycodone HCl/Acetaminophen 1 Each Tablet, 1 TAB PO Q6H PRN for PAIN, (Reported) Oxycodone HCl/Acetaminophen 1 Each Tablet, 1 EACH PO BID, #6 Ref 0 Prescribed by: NI ZUÑIGA on 07/25/16 1243 Polyethylene Glycol 3350 17 Gm Powd.pack, 17 GM PO BID PRN PRN for CONSTIPATION- 1ST LINE, #1 Ref 0 Prescribed by: ASHLEY WATTS on 06/04/16 1502 Ropinirole HCl 1 Mg Tablet, 6 MG PO HS, #30 Prescribed by: LEXUS CHOWDHURY on 04/06/16 1017 Sucralfate 1 Gm/10 Ml Oral.susp, 10 ML PO QID, (Reported) Temazepam 30 Mg Capsule, 30 MG PO HS, (Reported) Tramadol HCl 50 Mg Tablet, 50 MG PO Q4H PRN for MILD PAIN, #30 Prescribed by: YSABEL ABREU on 03/30/16 0839 Constitutional: no symptoms reported Musculoskeletal: see HPI, back pain (chronic back pain (no worse than usual pain per patient)), joint pain (left hip pain.) Skin: No change in color, No lesions, No lumps Psychiatric/Neurological: Denies Numbness, Denies Paresthesia, Denies Tingling , Denies Weakness All Other Systems Reviewed Negative Unless Noted: Yes (Negative excepted noted.) Past Bmjadps-Ajcqno-Hmvolb Hx Patient Social History Type Used: Cigarettes Former Smoker/When Quit: Sep 27, 1997 Recent Foreign Travel: No Contact w/Someone Who Travel: No Recent Infectious Disease Expo: No Recent Hopitalizations: Yes (from 4th floor) Immunizations Up To Date Tetanus Booster (TDap): Unknown PED Vaccines UTD: No Date of Pneumonia Vaccine: Apr 22, 2009 Date of Influenza Vaccine: Mar 30, 2016 Seasonal Allergies Seasonal Allergies: Yes Surgeries HX Surgeries: Yes (COLOSTOMY, KYPHOPLASTY; CARDIAC CATH WITH STENTS X 2; EGD/ COLONOSCOPIES ) Surgeries: Abdominal, Appendectomy, Bowel Surgery, Cardiac, Coronary Stent, Hysterectomy, Orthopedic, Tonsillectomy Respiratory Hx Respiratory Disorders: Yes Respiratory Disorders: COPD Cardiovascular Hx Cardiac Disorders: Yes (STENTS X2) Cardiac Disorders: Coronary Artery Disease, Deep Vein Thrombosis, Hypertension Neurological Hx Neurological Disorders: No Neurological Disorders: Vertigo 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 System Hx 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 Disorders: No 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 Genitourinary Hx Genitourinary Disorders: Yes (INCONTINENCE) Genitourinary Disorders: UTI-Chronic Gastrointestinal Hx Gastrointestinal Disorders: Yes (COLOSTOMY; PARASTOMAL HERNIA) Gastrointestinal Disorders: Abdominal Hernia, Gastroesophageal Reflux, Diverticulosis, Esophagitis Musculoskeletal Hx Musculoskeletal Disorders: Yes (compression fracture status post kyphoplasty ) Musculoskeletal Disorders: Osteoporosis, Arthritis, Chronic Back Pain, Fractures Endocrine Hx Endocrine Disorders: Yes (HYPOTHYROID) Endocrine Disorders: Hypothyroidsim HEENT HX ENT Disorders: Yes (FULL SET OF DENTURES) HEENT Disorders: Cataract Loss of Vision: Denies Hearing Impairment: Denies Cancer Hx Cancer: No Psychosocial Hx Psychiatric Problems: Yes Behavioral Health Disorders: Anxiety, Depression Integumentary HX Skin/Integumentary Disorder: No Blood Transfusions Hx Blood Disorders: Yes (anemia post op epideral site,bld transfusion) Adverse Reaction to a Blood Tr: No Reviewed Nursing Assessment Reviewed/Agree w Nursing PMH: Yes Family Medical History Significant Family History: No Pertinent Family Hx Family Medial History: Family history: Hypertension G8 BROTHER Myocardial infarction 19 MOTHER G8 BROTHER Physical Exam Vital Signs Vital Sign - Last 12Hours 07/25/16 10:58 Temp 97.5 Pulse 76 Resp 16 B/P (MAP) 121/69 Pulse Ox 95 O2 Delivery Room Air Capillary Refill : Less Than 3 Seconds General Appearance: No Apparent Distress, WD/WN Cardiovascular: Regular Rate, Rhythm, No Edema, No Murmur, Normal Peripheral Pulses Respiratory: Lungs Clear, Normal Breath Sounds, No Respiratory Distress Peripheral Pulses: 2+ Dorsalis Pedis (R), 2+ Left Dors-Pedis (L), 2+ Radial Pulses (R), 2+ Radial Pulses (L) Gastrointestinal: Normal Bowel Sounds, Non Tender, Soft, No Distended, Other ( colostomy in the rt mid abdomen with reducible parastoma hernia. non-tender.) Back: Normal Inspection, No Vertebral Tenderness Extremity: Normal Capillary Refill, No Calf Tenderness, No Pedal Edema, Other ( generalized bony and soft tissue tenderness of the left hip. no deformity noted.) Neurologic/Psychiatric: Alert, Oriented x3, No Motor/Sensory Deficits, Normal Mood/Affect Skin: Normal Color, Warm/Dry Progress/Results/Core Measures Results/Orders My Orders Orders - NI ZUÑIGA PA Hip, Left, 2 Views (07/25/16 11:48) Morphine Injection (Morphine Injection (07/25/16 11:48) Vital Signs/I&O Vital Sign - Last 12Hours 07/25/16 07/25/16 10:58 12:03 Temp 97.5 97.5 Pulse 76 Resp 16 B/P (MAP) 121/69 Pulse Ox 95 O2 Delivery Room Air Blood Pressure Mean: 86 Diagnostic Imaging Diagonstic Imaging: Xray Plain Films/CT/US/NM/MRI: hip Reviewed: Reviewed by Me (radiology reprort reviewed by me. ) Departure Communication Progress Notes diagnostic findings discussed with the patient. plan for dsch to home with f/u at the [facility] for pain medication refills. Impression Impression: Primary Impression: Hip pain, left Disposition: HOME, SELF-CARE Condition: Improved Departure-Patient Inst. Decision time for Depature: 12:39 Referrals: TORIBIO BREWER DO (PCP/Family) Primary Care Physician Patient Instructions: MANAGING YOUR CHRONIC PAIN Add. Discharge Instructions: All discharge instructions reviewed with patient and/or family. Voiced understanding. Medications as instructed. Continue usual home medications. Continue current activity and diet. Follow-up with Dr. Brewer's office for all further narcotic medication refill. Contact their office today for appointment time. Return to the emergency department for worsened symptoms or any other concerns. Scripts Oxycodone HCl/Acetaminophen (Percocet 5-325 mg Tablet) 1 Each Tablet 1 EACH PO BID, #6 TAB 0 Refills Prov: IN ZUÑIGA 07/25/16 Copy Copies To 1: TORIBIO BREWER GRETCHEN L PA Jul 25, 2016 11:37
[2016-07-25] MEDS ORDERED: morphine INJ 10 MG/ML 1ML (SYR OR VIAL) IM STA (11:48)
[2016-07-25] MEDS ORDERED: OXYC-197 PO (12:43)
--- NOTE | 2016-07-25 13:00 | Diagnostic Imaging Report ---
INDICATION: Chronic left hip pain. FINDINGS: 2 views of left hip show no fracture, dislocation or acute abnormalities. Joint space is well maintained. IMPRESSION: Negative left hip. Dictated by: Dictated on workstation # [id number]
[2016-07-25 13:28] VITALS: BP 118/69
== END 2016-07-25 13:28 | disposition home or self-care (01) ==
LOC: EDUNIT# 10:48 → ER 10:50
DX: M25.552 Pain in left hip (principal); I10 Essential (primary) hypertension; I25.10 Atherosclerotic heart disease of native coronary artery without angina pectoris; Z87.891 Personal history of nicotine dependence; Z79.82 Long term (current) use of aspirin; Z95.5 Presence of coronary angioplasty implant and graft
CPT/HCPCS: 73502

== ENCOUNTER 2016-08-26 04:47 | Emergency (ER) | payer MEDICARE, MEDICAID ==
[~2016-08-26] VITALS: Ht 162.6 cm; Wt 77.1 kg
[2016-08-26] MEDS ORDERED: PREG75CA (05:10)
[2016-08-26] MEDS ORDERED: FENT1PAT8 (05:10)
[2016-08-26] MEDS ORDERED: DICY10CA12 (05:10)
--- NOTE | 2016-08-26 05:19 | ED Hip Pain/Injury ---
General Chief Complaint: Hip/Pelvic Problems Stated Complaint: HIP PAIN Nursing Triage Note: C/O L HIP PAIN X 2 MONTHS, REPORTS HAS BEEN EVALUATED HERE FOR SAME COMPLAINT. REPORTS RAN OUT OF PAIN MEDICATION Source: patient, EMS Exam Limitations: no limitations History of Present Illness Time seen by provider: 05:05 Initial Comments Patient presents the ER by EMS with a complaint of pain radiating from her hip down to her knee. This pain has been going on for 2 months and has gotten intolerable this morning. The patient reports she has ran out of her hydrocodone at home that was given to her by Dr. Brewer and was told by Dr. Brewer when she called [facility] for more that she should go to the ER and asked for a health care social worker to get into rehabilitation for physical therapy. The patient was recently seen last month in the ER given oxycodone and also since that time was given fentanyl patches which she is still wearing presently. She denies any falls stumbling, syncope, nausea, vomiting, diarrhea, constipation, rash, fever, chill, chest pain, shortness of breath. She is on Plavix and has had stents about 7 years ago and was told not to take NSAIDs or Dr. Aburto. She reports this pain started 2 months ago after her right hip was operated on by orthopedics. Her left hip pain and has not been helped much by the opioids. She has a referral to pain management and a appointment scheduled Monday. Allergies and Home Medications Allergies Coded Allergies: No Known Drug Allergies (Unverified , 06/10/15) Home Medications Aspirin 81 Mg Tabec, 81 MG PO DAILY, (Reported) Budesonide/Formoterol Fumarate 10.2 Gm Hfa.aer.ad, 2 PUFF INH BID, (Reported) Clopidogrel Bisulfate 75 Mg Tablet, 75 MG PO DAILY, (Reported) LAST FILLED 12-08-15 #30 Cyclosporine 1 Each Droperette, 1 DROP OU BID, (Reported) LAST FILLED 07-16-15 Dicyclomine HCl 10 Mg Capsule, #90 (Reported) Duloxetine HCl 60 Mg Capsule.dr, 60 MG PO DAILY, (Reported) Ezetimibe 10 Mg Tablet, 10 MG PO DAILY, (Reported) Fentanyl 1 Each Patch.td72, #10 (Reported) Lactulose 20 Gm/30 Ml Solution, 30 GM PO QID, #30 Prescribed by: YSABEL ABREU on 03/30/1639 Levothyroxine Sodium 100 Mcg Tablet, 100 MCG PO 0630, (Reported) Lorazepam 1 Mg Tablet, 1 MG PO BID, (Reported) Metoprolol Succinate 50 Mg Tab.er.24h, 50 MG PO DAILY, (Reported) Nitroglycerin 0.4 Mg Tab.subl, 0.4 MG SL UD PRN for CHEST PAIN, (Reported) Omeprazole 40 Mg Capsule.dr, 40 MG PO BID, (Reported) Oxycodone HCl/Acetaminophen 1 Each Tablet, 1 TAB PO Q6H PRN for PAIN, (Reported) Polyethylene Glycol 3350 17 Gm Powd.pack, 17 GM PO BID PRN PRN for CONSTIPATION- 1ST LINE, #1 Ref 0 Prescribed by: ASHLEY WATTS on 06/04/16 1502 Pregabalin 75 Mg Capsule, #60 (Reported) Ropinirole HCl 1 Mg Tablet, 6 MG PO HS, #30 Prescribed by: LEXUS CHOWDHURY on 04/06/16 1017 Sucralfate 1 Gm/10 Ml Oral.susp, 10 ML PO QID, (Reported) Temazepam 30 Mg Capsule, 30 MG PO HS, (Reported) Tramadol HCl 50 Mg Tablet, 50 MG PO Q4H PRN for MILD PAIN, #30 Prescribed by: YSABEL ABREU on 03/30/1639 Constitutional: see HPI, No chills, No malaise EENTM: no symptoms reported, No ear pain Respiratory: No cough, No short of breath Cardiovascular: No chest pain, No edema, Hx of Intervention, No palpitations, No syncope Gastrointestinal: abdominal pain, No constipation, No diarrhea, No nausea Genitourinary: No dysuria, No frequency Musculoskeletal: see HPI, No back pain, joint pain, No joint swelling, No muscle pain Skin: No pruritus, No rash Past Xidbcan-Ppgtge-Kuekeo Hx Patient Social History Alcohol Use: Past History Recreational Drug Use: No Smoking Status: Former Smoker Type Used: Cigarettes Former Smoker/When Quit: Sep 27, 1997 Recent Foreign Travel: No Contact w/Someone Who Travel: No Recent Infectious Disease Expo: No Recent Hopitalizations: No Immunizations Up To Date Tetanus Booster (TDap): Unknown PED Vaccines UTD: No Date of Pneumonia Vaccine: Apr 22, 2009 Date of Influenza Vaccine: Mar 30, 2016 Seasonal Allergies Seasonal Allergies: Yes Surgeries HX Surgeries: Yes (COLOSTOMY, KYPHOPLASTY; CARDIAC CATH WITH STENTS X 2; EGD/ COLONOSCOPIES ) Surgeries: Abdominal, Appendectomy, Bowel Surgery, Cardiac, Coronary Stent, Hysterectomy, Orthopedic, Tonsillectomy Respiratory Hx Respiratory Disorders: Yes Respiratory Disorders: COPD Cardiovascular Hx Cardiac Disorders: Yes (STENTS X2) Cardiac Disorders: Coronary Artery Disease, Deep Vein Thrombosis, Hypertension Neurological Hx Neurological Disorders: No Neurological Disorders: Vertigo 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 System Hx 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 Disorders: No 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 CHECKER History: Hysterectomy Genitourinary Hx Genitourinary Disorders: Yes (INCONTINENCE) Genitourinary Disorders: UTI-Chronic Gastrointestinal Hx Gastrointestinal Disorders: Yes (COLOSTOMY; PARASTOMAL HERNIA) Gastrointestinal Disorders: Abdominal Hernia, Gastroesophageal Reflux, Diverticulosis, Esophagitis Musculoskeletal Hx Musculoskeletal Disorders: Yes (compression fracture status post kyphoplasty ) Musculoskeletal Disorders: Osteoporosis, Arthritis, Chronic Back Pain, Fractures Endocrine Hx Endocrine Disorders: Yes (HYPOTHYROID) Endocrine Disorders: Hypothyroidsim HEENT HX ENT Disorders: Yes (FULL SET OF DENTURES) HEENT Disorders: Cataract Loss of Vision: Denies Hearing Impairment: Denies Cancer Hx Cancer: No Psychosocial Hx Psychiatric Problems: Yes Behavioral Health Disorders: Anxiety, Depression Integumentary HX Skin/Integumentary Disorder: No Blood Transfusions Hx Blood Disorders: Yes (anemia post op epideral site,bld transfusion) Adverse Reaction to a Blood Tr: No Family Medical History Significant Family History: No Pertinent Family Hx Family Medial History: Family history: Hypertension G8 BROTHER Myocardial infarction 19 MOTHER G8 BROTHER Physical Exam Vital Signs Vital Sign - Last 12Hours 08/26/16 05:02 Temp 98.2 Pulse 79 Resp 18 B/P (MAP) 185/108 Pulse Ox 95 Capillary Refill : Less Than 3 Seconds General Appearance: No Apparent Distress, WD/WN Neck: Full Range of Motion, Supple Cardiovascular: Regular Rate, Rhythm, No Edema Respiratory: Chest Non Tender, Lungs Clear Back: Normal Inspection, No Vertebral Tenderness Extremity: Normal Capillary Refill, Normal Inspection, Normal Range of Motion, No Pedal Edema, Other (tenderness over the left hip.) Neurologic/Psychiatric: Alert, Oriented x3, No Motor/Sensory Deficits Skin: Normal Color, Warm/Dry Progress/Results/Core Measures Results/Orders Vital Signs/I&O Vital Sign - Last 12Hours 08/26/16 05:02 Temp 98.2 Pulse 79 Resp 18 B/P (MAP) 185/108 Pulse Ox 95 Blood Pressure Mean: 133 Departure Impression Impression: Primary Impression: Hip pain Qualified Codes: M25.552 - Pain in left hip Disposition: 01 HOME, SELF-CARE Condition: Improved Departure-Patient Inst. Decision time for Depature: 05:19 Referrals: TORIBIO BREWER DO (PCP/Family) Primary Care Physician Patient Instructions: Hip Bursitis (DC) Add. Discharge Instructions: Your hip pain does not appear to be traumatic in nature and will probably respond well to anti-inflammatories. Since NSAIDs are not a good option for you we would request that she continue to take Tylenol 1000 mg 3 times a day as needed by mouth. We will start you on prednisone and you should take 20 mg twice daily for the next 5 days. If you have worrisome or new symptoms such as fevers chills nausea vomiting or other emergent cause you should return to the ER immediately. You should keep your appointment on Monday with Pain Management specialty to address your chronic pains. If you cannot make it to your appointment on Monday then you should follow up with your primary care physician. I would also recommend that she apply ice directly to the hip up to 4 times daily for 20 minutes at a time as needed for pain. He can also use salve such as icy hot or capsaicin oil throughout the day. A heating pad would also be a reasonable option. All discharge instructions reviewed with patient and/or family. Voiced understanding. Scripts Prednisone (Prednisone) 20 Mg Tab 20 MG PO BID for 5 Days, #9 TAB 0 Refills Prov: ASHLEY WATTS 08/26/16 Copy Copies To 1: TORIBIO BREWER TITUS J Aug 26, 2016 05:19
[2016-08-26] MEDS ORDERED: PRD20T PO (05:22)
[2016-08-26] MEDS ORDERED: ACETAMINOPHEN 500 MG TAB (TYLENOL) PO STA (05:24)
[2016-08-26] MEDS ORDERED: predniSONE 20 MG TAB PO ONE (05:30)
[2016-08-26 05:43] VITALS: BP 182/90
--- OUTSIDE RECORDS SUMMARY | 2016-08-30 05:33 | XMS REPORT | Continuity of Care Document ---
Author Author [facility] Organization [facility] Address Unknown Phone Unavailable Care Team Providers Care Major Assembly Inspector Name Role Phone Eliud Brewer III PCP [phone] Source Comments Some departments are not documenting in the electronic medical record. If you do not see the information that you expected, contact Release of Information in the Health Information Management department at [phone] for further assistance in locating additional records.[facility] Active Allergies and Adverse Reactions Allergen [...] emulsion needed. fluticasone (FLONASE) 50 Apply 1 Sigel to each Active mcg/actuation nasal spray nostril [...] (coronary artery disease) 06/03/2009 Overview: Hx of ME 4 yrs ago Depression 06/03/2009 Arthritis 06/03/2009 [...] Screening 04/27/2003 Prevnar/Pneumovax (#1) 04/27/2003 Influenza Vaccine 10/21/2016 Results from Last 3 Months Not on file
--- OUTSIDE RECORDS SUMMARY | 2016-08-30 06:00 | XMS REPORT | Continuity of Care Document ---
Author Author [facility] Organization [facility] Address Unknown Phone Unavailable Allergies Active Description Code Type Severity Reaction Onset Reported/Identified Relationship to Patient Clinical Status Yes quinine [id number] Drug Allergy Unknown N/A 02/25/2013 Yes cephalexin [id number] Drug Allergy Unknown N/A 09/17/2013 Yes erythromycin base [id number] Drug Allergy Unknown N/A 11/01/2013 Yes ciprofloxacin [id number] Drug Allergy Mild N/A 01/23/2014 Yes No Known Drug Allergies [id number] Drug Allergy Unknown N/ A 06/10/2015 Medications Problems Date Dx Coded Attending Type Code Diagnosis Diagnosed By 10/28/2005 Ot 721.3 10/31/2005 Ot 721.3 10/31/2005 Ot V57.1 10/16/2006 Ot 720.2 12/21/2006 Ot 327.10 03/20/2007 Ot 724.5 03/20/2007 Ot V57.1 04/14/2008 Ot 724.2 05/05/2008 Ot 333.94 05/05/2008 Ot 714.0 05/05/2008 Ot 780.79 05/05/2008 Ot 781.3 05/05/2008 Ot V45.82 05/05/2008 Ot V57.1 09/25/2009 Ot 300.00 09/25/2009 Ot 401.9 09/25/2009 Ot 530.81 09/25/2009 Ot 786.50 09/25/2009 Ot V58.69 10/30/2009 Ot 562.10 10/30/2009 Ot 789.00 10/30/2009 Ot 791.9 04/08/2010 Ot 491.9 CHRONIC BRONCHITIS NOS 04/08/2010 Ot 786.05 SHORTNESS OF BREATH 04/08/2010 Ot 789.09 ABDOMINAL PAIN, OTHER SPECIFIED SITE 07/29/2010 Ot 244.9 HYPOTHYROIDISM NOS 07/29/2010 Ot 272.4 HYPERLIPIDEMIA NEC/NOS 07/29/2010 Ot 278.00 OBESITY, NOS 07/29/2010 Ot 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 07/29/2010 Ot 327.23 OBSTRUCTIVE SLEEP APNEA (ADULT) (PEDIATR 07/29/2010 Ot 333.94 RESTLESS LEGS SYNDROME 07/29/2010 Ot 401.9 HYPERTENSION NOS 07/29/2010 Ot 414.01 CORONARY ATHEROSCLEROSIS OF [place] CORON 07/29/2010 Ot 562.11 DIVERTICULITIS COLON (W/O MENT OF HEMORR 07/29/2010 Ot 721.3 LUMBOSACRAL SPONDYLOSIS 07/29/2010 Ot V12.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 07/29/2010 Ot V45.82 PERCUTANEOUS TRANSLUM CORON ANGIOPLASTY 07/29/2010 Ot V58.63 LONG-TERM(CURRENT)USE OF ANTIPLATELET/AN 07/29/2010 Ot V85.31 BODY MASS INDEX 31.0-31.9, ADULT 08/06/2010 Ot 789.00 ABDOMINAL PAIN, UNSPECIFIED SITE 08/06/2010 Ot 791.9 ABN URINE FINDINGS NEC 10/28/2010 Ot 401.9 HYPERTENSION NOS 10/28/2010 Ot 414.00 CORON ATHEROSCLER NOS TYPE VESSEL, NATIV 10/28/2010 Ot 780.4 DIZZINESS AND GIDDINESS 10/28/2010 Ot V45.82 PERCUTANEOUS TRANSLUM CORON ANGIOPLASTY 10/28/2010 Ot V58.69 OTH MED,LT,CURRENT USE 04/17/2011 Ot 401.9 HYPERTENSION NOS 04/17/2011 Ot 414.00 CORON ATHEROSCLER NOS TYPE VESSEL, NATIV 04/17/2011 Ot 599.0 URIN TRACT INFECTION NOS 04/17/2011 Ot 780.79 OTH MALAISE FATIGUE 04/17/2011 Ot V45.82 PERCUTANEOUS TRANSLUM CORON ANGIOPLASTY 04/17/2011 Ot V58.69 OTH MED,LT,CURRENT USE 05/03/2012 Ot 244.9 HYPOTHYROIDISM NOS 05/03/2012 Ot 272.4 HYPERLIPIDEMIA NEC/NOS 05/03/2012 Ot 278.00 OBESITY, NOS 05/03/2012 Ot 300.00 ANXIETY STATE NOS 05/03/2012 Ot 327.23 OBSTRUCTIVE SLEEP APNEA (ADULT) (PEDIATR 05/03/2012 Ot 333.94 RESTLESS LEGS SYNDROME 05/03/2012 Ot 401.9 HYPERTENSION NOS 05/03/2012 Ot 414.01 CORONARY ATHEROSCLEROSIS OF [place] CORON 05/03/2012 Ot 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 05/03/2012 Ot 530.81 ESOPHAGEAL REFLUX 05/03/2012 Ot 562.10 DIVERTICULOSIS COLON (W/O MENT OF HEMORR 05/03/2012 Ot 715.89 OSTEOARTHROSIS-MULT SITE 05/03/2012 Ot 787.91 DIARRHEA 05/03/2012 Ot V12.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 05/03/2012 Ot V15.82 HISTORY OF TOBACCO USE 05/03/2012 Ot V85.33 BODY MASS INDEX 33.0-33.9, ADULT 08/17/2012 AGUS BUTLER FACC, LUIS FACP CCDS Ot 272.4 HYPERLIPIDEMIA NEC/NOS 08/17/2012 AGUS BUTLER FACC, LUIS FACP CCDS Ot 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 08/17/2012 AGUS BUTLER FACC, LUIS FACP CCDS Ot 401.9 HYPERTENSION NOS 08/17/2012 AGUS BUTLER FACC, LUIS FACP CCDS Ot 414.01 CORONARY ATHEROSCLEROSIS OF [place] CORON 08/17/2012 LUIS GOLDSMITH MD, FACC FACP CCDS Ot 530.3 ESOPHAGEAL STRICTURE 08/17/2012 AGUS BUTLER FACC, LUIS FACP CCDS Ot 530.81 ESOPHAGEAL REFLUX 08/17/2012 AGUS BUTLER FACC, LUIS FACP CCDS Ot 715.90 OSTEOARTHROS NOS-UNSPEC 08/17/2012 AGUS BUTLER FACC ALI FACP CCDS Ot 724.5 BACKACHE NOS 08/17/2012 AGUS BUTLER FACC, ALI FACP CCDS Ot 780.57 UNSPECIFIED SLEEP APNEA 08/17/2012 LUIS GOLDSMITH MD, FACC FACP CCDS Ot V12.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 08/17/2012 LUIS GOLDSMITH MD, FACC FACP CCDS Ot V45.82 PERCUTANEOUS TRANSLUM CORON ANGIOPLASTY 08/17/2012 LUIS GOLDSMITH MD, FACC FACP CCDS Ot V58.63 LONG-TERM(CURRENT)USE OF ANTIPLATELET/AN 08/17/2012 AGUS BUTLER FACC ALI FACP CCDS Ot V58.69 OT MED,LT,CURRENT USE 08/19/2012 BETTY MAZARIEGOS DO Ot 998.12 HEMATOMA COMPLIC A PROC 09/11/2012 TORIBIO FOFANA DO Ot 244.9 HYPOTHYROIDISM NOS 09/11/2012 TORIBIO FOFANA DO Ot 272.4 HYPERLIPIDEMIA NEC/NOS 09/11/2012 TORIBIO FOFANA DO, Ot 276.1 HYPOSMOLALITY 09/11/2012 TORIBIO FOFANA DO, Ot 276.52 HYPOVOLEMIA 09/11/2012 TORIBIO FOFANA DO Ot 278.00 OBESITY, NOS 09/11/2012 TORIBIO FOFANA DO, Ot 300.00 ANXIETY STATE NOS 09/11/2012 TORIBIO FOFANA DO Ot 311 DEPRESSIVE DISORDER NEC 09/11/2012 TORIBIO FOFANA DO Ot 327.23 OBSTRUCTIVE SLEEP APNEA (ADULT) ( PEDIATR 09/11/2012 TORIBIO FOFANA DO, Ot 333.94 RESTLESS LEGS SYNDROME 09/11/2012 TORIBIO FOFANA DO Ot 401.9 HYPERTENSION NOS 09/11/2012 TORIBIO FOFANA DO, Ot 414.01 CORONARY ATHEROSCLEROSIS OF [place] CORON 09/11/2012 TORIBIO FOFANA DO, Ot 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 HRT DIS NEC 09/11/2012 TORIBIO FOFANA DO Ot 530.3 ESOPHAGEAL STRICTURE 09/11/2012 TORIBIO FOFANA DO, Ot 530.81 ESOPHAGEAL REFLUX 09/11/2012 TORIBIO FOFANA DO, Ot 562.10 DIVERTICULOSIS COLON (W/O MENT OF HEMORR 09/11/2012 TORIBIO FOFANA DO Ot 599.0 URIN TRACT INFECTION NOS 09/11/2012 TORIBIO FOFANA DO Ot 786.59 CHEST PAIN NEC 09/11/2012 TORIBIO FOFANA DO, Ot 966.4 OPAR-UPNS-LAXYMBFCV DRUG 09/11/2012 TORIBIO FOFANA DO Ot 967.8 POIS-SEDATIVE/HYPNOT NEC 09/11/2012 TORIBIO FOFANA DO, Ot 969.4 POIS-BENZODIAZEPINE CASTRO 09/11/2012 TORIBIO FOFANA DO Ot 996.72 OTH COMPLICATIONS DUE TO OTH CARD DEVICE 09/11/2012 TORIBIO FOFAAN DO Ot E849.0 ACCIDENT IN HOME 09/11/2012 TORIBIO FOFANA DO, Ot E852.8 ACC POISON-SEDATIVES NEC 09/11/2012 TORIBIO FOFANA DO, Ot E853.2 ACC POISN-BENZDIAZ TRANQ 09/11/2012 TORIBIO FOFANA DO Ot E855.0 ACC POISN-ANTICONVULSANT 09/11/2012 TORIBIO FOFANA DO, Ot V12.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 09/11/2012 TORIBIO FOFANA DO Ot V12.55 PERSONAL HISTORY OF PULMONARY EMBOLISM 09/11/2012 TORIBIO FOFANA DO Ot V12.79 PERSONAL HISTORY OTH SPEC DIGESTIVE SYST 09/11/2012 FOFANA DO TORIBIO Roro Ot V62.84 SUICIDAL IDEATION 09/11/2012 FOFANA DO TORIBIO Roro Ot V85.31 BODY MASS INDEX 31.0-31.9, ADULT 09/27/2012 JAQUELIN BUTLER, LIANA S Ot 530.5 DYSKINESIA OF ESOPHAGUS 11/07/2012 LENA BUTLER, RADHA Sanchez Ot 244.9 HYPOTHYROIDISM NOS 11/07/2012 LENA BUTLER, RADHA Sanchez Ot 780.4 DIZZINESS AND GIDDINESS 01/07/2013 LENA BUTLER, RADHA Sanchez Ot 599.0 URIN TRACT INFECTION NOS 01/07/2013 LENA BUTLER, RADHA Sanchez Ot 789.01 ABDOMINAL PAIN, RIGHT UPPER QUADRANT 01/07/2013 LENA BUTLER, RADHA Sanchez Ot V04.81 ND FOR PROPHYLACTIC VACCIN AND INOCULATI 02/25/2013 JAGJIT BUTLER, VANESSA Garcia Ot 401.9 HYPERTENSION NOS 02/25/2013 JAGJIT BUTLER, VANESSA Garcia Ot 496 CHR AIRWAY OBSTRUCT NEC 02/25/2013 JAGJIT BUTLER, VANESSA Garcia Ot 530.3 ESOPHAGEAL STRICTURE 04/23/2013 JARRETT BUTLER, ISABELLA Gongora Ot 473.9 CHRONIC SINUSITIS NOS 04/23/2013 JARRETT BUTLER, ISABELLA Gongora Ot 780.2 SYNCOPE AND COLLAPSE 05/05/2013 BETTY MAZARIEGOS DO Ot 473.9 CHRONIC SINUSITIS NOS 05/05/2013 BETTY MAZARIEGOS DO Ot 782.1 NONSPECIF SKIN ERUPT NEC 05/05/2013 BETTY MAZARIEGOS DO Ot E849.0 ACCIDENT IN HOME 05/05/2013 BETTY MAZARIEGOS DO Ot E930.5 ADV EFF CEPHALOSPORIN 05/29/2013 BETTY MAZARIEGOS DO Ot 780.4 DIZZINESS AND GIDDINESS 05/29/2013 BETTY MAZARIEGOS DO Ot 786.50 CHEST PAIN NOS 08/09/2013 JAGJIT BUTLER, VANESSA Garcia Ot 173.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 08/09/2013 JAGJIT BUTLER, VANESSA Garcia Ot 702.0 ACTINIC KERATOSIS 09/18/2013 TORIBIO FOFANA DO Ot 244.9 HYPOTHYROIDISM NOS 09/18/2013 TORIBIO FOFANA DO Ot 278.00 OBESITY, NOS 09/18/2013 TORIBIO FOFANA DO Ot 308.0 STRESS REACT, EMOTIONAL 09/18/2013 TORIBIO FOFANA DO Ot 327.23 OBSTRUCTIVE SLEEP APNEA (ADULT) ( PEDIATR 09/18/2013 TORIBIO FOFANA DO, Ot 401.9 HYPERTENSION NOS 09/18/2013 TORIBIO FOFANA DO Ot 411.1 INTERMED CORONARY SYND 09/18/2013 TORIBIO FOFANA DO Ot 414.01 CORONARY ATHEROSCLEROSIS OF [place] CORON 09/18/2013 TORIBIO FOFANA DO, Ot 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 HRT DIS NEC 09/18/2013 TORIBIO FOFANA DO, Ot 530.81 ESOPHAGEAL REFLUX 09/18/2013 TORIBIO FOFANA DO, Ot V12.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 09/18/2013 TORIBIO FOFANA DO, Ot V45.82 PERCUTANEOUS TRANSLUM CORON ANGIOPLASTY 09/18/2013 TORIBIO FOFANA DO, Ot V58.63 LONG-TERM(CURRENT)USE OF ANTIPLATELET/ AN 09/18/2013 TORIBIO FOFANA DO, Ot V58.69 OT MED,LT,CURRENT USE 09/29/2013 TORIBIO WOLF DO, Ot 244.9 HYPOTHYROIDISM NOS 09/29/2013 TORIBIO WOLF DO Ot 300.00 ANXIETY STATE NOS 09/29/2013 TORIBIO WOLF DO Ot 311 DEPRESSIVE DISORDER NEC 09/29/2013 TORIBIO WOLF DO Ot 338.29 OTHER CHRONIC PAIN 09/29/2013 TORIBIO WOLF DO Ot 366.9 CATARACT NOS 09/29/2013 TORIBIO WOLF DO Ot 401.9 HYPERTENSION NOS 09/29/2013 TORIBIO WOLF DO Ot 496 CHR AIRWAY OBSTRUCT NEC 09/29/2013 TORIBIO WOLF DO Ot 530.81 ESOPHAGEAL REFLUX 09/29/2013 TORIBIO WOLF DO Ot 562.10 DIVERTICULOSIS COLON (W/O MENT OF HEMORR 09/29/2013 TORIBIO WOLF DO Ot 599.0 URIN TRACT INFECTION NOS 09/29/2013 TORIBIO WOLF DO Ot 716.90 ARTHROPATHY NOS-UNSPEC 09/29/2013 TORIBIO WOLF DO, Ot 724.5 BACKACHE NOS 09/29/2013 TORIBIO WOLF DO, Ot 780.57 UNSPECIFIED SLEEP APNEA 09/29/2013 TORIBIO WOLF DO, Ot 786.50 CHEST PAIN NOS 09/29/2013 TORIBIO WOLF DO, Ot 786.52 PAINFUL RESPIRATION 09/29/2013 TORIBIO WOLF DO, Ot V13.02 PERSONAL HISTORY, URINARY (TRACT) INFECT 09/29/2013 TORIBIO WOLF DO, Ot V45.82 PERCUTANEOUS TRANSLUM CORON ANGIOPLASTY 09/29/2013 TORIBIO WOLF DO, Ot V58.63 LONG-TERM(CURRENT)USE OF ANTIPLATELET/ AN 09/29/2013 TORIBIO WOLF DO, Ot V58.64 LONG-TERM(CURRENT)USE OF NON-STEROIDAL A 09/29/2013 TORIBIO WOLF DO, Ot V58.66 LONG-TERM (CURRENT) USE OF ASPIRIN 09/29/2013 TORIBIO WOLF DO, Ot V58.69 OT MED,LT,CURRENT USE 11/02/2013 TORIBIO FOFANA DO, Ot 041.00 BACTERIAL INFEC DUE TO UNSPECIFIED STREP 11/02/2013 TORIBIO FOFANA DO, Ot 244.9 HYPOTHYROIDISM NOS 11/02/2013 TORIBIO FOFANA DO, Ot 272.4 HYPERLIPIDEMIA NEC/NOS 11/02/2013 TORIBIO FOFANA DO, Ot 278.00 OBESITY, NOS 11/02/2013 TORIBIO FOFANA DO, Ot 292.81 DRUG-INDUCED DELIRIUM 11/02/2013 TORIBIO FOFANA DO, Ot 300.00 ANXIETY STATE NOS 11/02/2013 TORIBIO FOFANA DO Ot 311 DEPRESSIVE DISORDER NEC 11/02/2013 TORIBIO FOFANA DO, Ot 327.23 OBSTRUCTIVE SLEEP APNEA (ADULT) ( PEDIATR 11/02/2013 TORIBIO FOFANA DO, Ot 333.94 RESTLESS LEGS SYNDROME 11/02/2013 TORIBIO FOFANA DO Ot 401.9 HYPERTENSION NOS 11/02/2013 TORIBIO FOFANA DO Ot 414.01 CORONARY ATHEROSCLEROSIS OF [place] CORON 11/02/2013 TORIBIO FOFANA DO, Ot 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 HRT DIS NEC 11/02/2013 TORIBIO FOFANA DO Ot 427.89 CARDIAC DYSRHYTHMIAS NEC 11/02/2013 FOFANA DO, TORIBIO J Ot 496 CHR AIRWAY OBSTRUCT NEC 11/02/2013 TORIBIO FOFANA DO Ot 530.81 ESOPHAGEAL REFLUX 11/02/2013 TORIBIO FOFANA DO Ot 562.10 DIVERTICULOSIS COLON (W/O MENT OF HEMORR 11/02/2013 TORIBIO FOFANA DO Ot 599.0 URIN TRACT INFECTION NOS 11/02/2013 TORIBIO FOFANA DO Ot 715.90 OSTEOARTHROS NOS-UNSPEC 11/02/2013 TORIBIO FOFANA DO Ot 780.4 DIZZINESS AND GIDDINESS 11/02/2013 TORIBIO FOFANA DO, Ot 780.79 OTH MALAISE FATIGUE 11/02/2013 TORIBIO FOFANA DO Ot 781.94 FACIAL WEAKNESS 11/02/2013 TORIBIO FOFANA DO Ot 784.0 HEADACHE 11/02/2013 TORIBIO FOFANA DO, Ot 784.59 OTHER SPEECH DISTURBANCE 11/02/2013 TORIBIO FOFANA DO, Ot E935.2 ADV EFF OPIATES 11/02/2013 TORIBIO FOFANA DO, Ot E939.4 ADV EFF BENZODIAZ TRANQ 11/02/2013 TORIBIO FOFANA DO, Ot E942.0 ADV EFF CARD RHYTH REGUL 11/02/2013 TORIBIO FOFANA DO Ot V12.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 11/02/2013 TORBIIO FOFANA DO, Ot V15.82 HISTORY OF TOBACCO USE 11/02/2013 TORIBIO FOFANA DO, Ot V45.82 PERCUTANEOUS TRANSLUM CORON ANGIOPLASTY 11/02/2013 TORIBIO FOFANA DO Ot V85.24 BODY MASS INDEX 28.0-28.9, ADULT 11/25/2013 ALFREDO JOSÉ APRN Ot 562.11 DIVERTICULITIS COLON (W/O MENT OF HEMORR 11/25/2013 ALFREDO JOSÉ APRN Ot 789.09 ABDOMINAL PAIN, OTHER SPECIFIED SITE 01/10/2014 ARTIE JORGENSEN MD Ot 724.2 01/10/2014 ARTIE JORGENSEN MD Ot 737.30 01/13/2014 ARTIE JORGENSEN MD Ot 724.2 01/13/2014 ARTIE JORGENSEN MD Ot 737.30 01/24/2014 TORIBIO FOFANA DO Ot 244.9 01/24/2014 TORIBIO FOFANA DO Roro Ot 272.0 01/24/2014 FOFANA DO TORIBIO Roro Ot 272.4 01/24/2014 FOFANA DOTORIBIO Ot 276.1 01/24/2014 FOFANA DOTORIBIO Ot 300.02 01/24/2014 FOFANA DOTORIBIO Ot 311 01/24/2014 FOFANA DOTORIBIO Ot 327.23 01/24/2014 FOFANA DOTORIBIO Ot 333.94 01/24/2014 FOFANA DOTORIBIO Ot 386.11 01/24/2014 FOFANA DOTORIBIO Ot 401.9 01/24/2014 FOFANA DOTORIBIO Ot 414.01 01/24/2014 FOFANA DOTORIBIO Ot 496 01/24/2014 FOFANA DOTORIBIO Ot 530.3 01/24/2014 FOFANA DOTORIBIO Ot 530.81 01/24/2014 FOFANA DOTORIBIO Ot 562.10 01/24/2014 FOFANA DOTORIBIO Ot 599.0 01/24/2014 FOFANA DOTORIBIO Ot 715.90 01/24/2014 FOFANA DOTORIBIO Ot 727.51 01/24/2014 FOFANA DOTORIBIO Ot 787.20 01/24/2014 FOFANA DOTORIBIO Ot V12.51 01/24/2014 FOFANA DO TORIBIO Roro Ot V12.55 01/24/2014 FOFANA DO TORIBIO Roro Ot V45.82 01/25/2014 FOFANA DOTORIBIO Ot 244.9 01/25/2014 FOFANA DOTORIBIO Ot 272.0 01/25/2014 FOFANA DOTORIBIO Ot 272.4 01/25/2014 FOFANA DOTORIBIO Ot 276.1 01/25/2014 FOFANA DOTORIBIO Ot 300.02 01/25/2014 FOFANA TORIBIO GUZMAN Ot 311 01/25/2014 FOFANA DOTORIBIO Ot 327.23 01/25/2014 FOFANA DOTORIBIO Ot 333.94 01/25/2014 FOFANA DOTORIBIO Ot 386.11 01/25/2014 FOFANA DOTORIBIO Ot 401.9 01/25/2014 FOFANA DOTORIBIO Ot 414.01 01/25/2014 FOFANA DO TORIBIO Roro Ot 496 01/25/2014 FOFANA DO TORIBIO Roro Ot 530.3 01/25/2014 FOFANA DOTORIBIO Ot 530.81 01/25/2014 FOFANA DO TORIBIO Roro Ot 562.10 01/25/2014 FOFANA DO TORIBIO Roro Ot 599.0 01/25/2014 FOFANA DOTORIBIO Ot 715.90 01/25/2014 FOFANA DO TORIBIO Roro Ot 727.51 01/25/2014 FOFANA DO TORIBIO Roro Ot 787.20 01/25/2014 FOFANA DO TORIBIO Roro Ot V12.51 01/25/2014 FOFANA DO TORIBIO Roro Ot V12.55 01/25/2014 FOFANA DO TORBIIO Roro Ot V45.82 01/26/2014 FOFANA DO TORIBIO Roro Ot 244.9 01/26/2014 FOFANATORIBIO DYER DO Ot 272.0 01/26/2014 FOFANATORIBIO DYER DO Ot 272.4 01/26/2014 FOFANA DO TORIBIO Roro Ot 276.1 01/26/2014 FOFANA DO TORIBIO Roro Ot 300.02 01/26/2014 FOFANA TORIBIO GUZMAN Ot 311 01/26/2014 FOFANA TORIBIO GUZMAN Ot 327.23 01/26/2014 FOFANA DO TORIBIO Roro Ot 333.94 01/26/2014 FOAFNA DO TORIBIO Roro Ot 386.11 01/26/2014 FOFANA TORIBIO GUZMAN Ot 401.9 01/26/2014 FOFANA DOTORIBIO Ot 414.01 01/26/2014 FOFANA DO TORIBIO Roro Ot 496 01/26/2014 FOFANA DO TORIBIO Roro Ot 530.3 01/26/2014 FOFANA DOTORIBIO Ot 530.81 01/26/2014 FOFANA TORIBIO GUZMAN Ot 562.10 01/26/2014 FOFANA DO TORIBIO Roro Ot 599.0 01/26/2014 FOFANA DOTORIBIO Ot 715.90 01/26/2014 FOFANA TORIBIO GUZMAN Ot 727.51 01/26/2014 FOFANA TORIBIO GUMZAN Ot 787.20 01/26/2014 FOFANA DO TORIBIO Read Ot V12.51 01/26/2014 FOFANA DO TORIBIO Read Ot V12.55 01/26/2014 FOFANA DO TORIBIO Raed Ot V45.82 01/26/2014 FOFANA DO TORIBIO Read Ot 244.9 01/26/2014 FOFANA DO TORIBIO Roro Ot 272.0 01/26/2014 FOFANA DO TORIBIO Roro Ot 272.4 01/26/2014 FOFANA DO TORIBIO Roro Ot 276.1 01/26/2014 FOFANA DO TORIBIO Roro Ot 300.02 01/26/2014 FOFANA DO TORIBIO Roro Ot 311 01/26/2014 FOFANATORIBIO DYER DO Ot 327.23 01/26/2014 FOFANATORIBIO DYER DO Ot 333.94 01/26/2014 FOFANA DO TORIBIO Roro Ot 386.11 01/26/2014 FOFANA DO TORIBIO Roro Ot 401.9 01/26/2014 FOFANATORIBIO DYER DO Ot 414.01 01/26/2014 FOFANATORIBIO DYER DO Ot 496 01/26/2014 FOFANA DO TORIBIO Roro Ot 530.3 01/26/2014 FOFANA DO TORIBIO Roro Ot 530.81 01/26/2014 FOFANA DO, TORIBIO Roro Ot 562.10 01/26/2014 FOFANA DO, TORIBIO Roro Ot 599.0 01/26/2014 FOFANA DO TORIBIO Roro Ot 715.90 01/26/2014 FOFANA DO TORIBIO Roro Ot 727.51 01/26/2014 FOFANA DO TORIBIO Roro Ot 787.20 01/26/2014 FOFANA DO TORIBIO Roro Ot V12.51 01/26/2014 FOFANA DO TORIBIO Roro Ot V12.55 01/26/2014 FOFANA DO TORIBIO Read Ot V45.82 01/27/2014 FOFANA DO TORIBIO Roro Ot 244.9 01/27/2014 FOFANA DOTORIBIO Ot 272.0 01/27/2014 FOFANA DO TORIBIO Roro Ot 272.4 01/27/2014 FOFANA TORIBIO GUZMAN Ot 276.1 01/27/2014 FOFANATORIBIO DYER DO Ot 300.02 01/27/2014 FOFANATORIBIO DYER DO Ot 311 01/27/2014 FOFANA DOTOIRBIO Ot 327.23 01/27/2014 FOFANA DOTORIBIO Ot 333.94 01/27/2014 FOFANA DOTORIBIO Ot 386.11 01/27/2014 FOFANA DOTORIBIO Ot 401.9 01/27/2014 FOFANA DOTORIBIO Ot 414.01 01/27/2014 FOFANA DOTORIBIO Ot 496 01/27/2014 FOFANA DOTORIBIO Ot 530.3 01/27/2014 FOFANA DOTORIBIO Ot 530.81 01/27/2014 FOFANA DOTORIBIO Ot 562.10 01/27/2014 FOFANA DOTORIBIO Ot 599.0 01/27/2014 FOFANA DOTORIBIO Ot 715.90 01/27/2014 FOFANA DOTORIBIO Ot 727.51 01/27/2014 FOFANA DOTORIBIO Ot 787.20 01/27/2014 FOFANA DOTORIBIO Ot V12.51 01/27/2014 FOFANA DOTORIBIO Ot V12.55 01/27/2014 FOFANA DOTORIBIO Ot V45.82 01/27/2014 FOFANA DOTORIBIO Ot 244.9 01/27/2014 FOFANA DOTORIBIO Ot 272.0 01/27/2014 FOFANA DOTORIBIO Ot 272.4 01/27/2014 FOFANA DOTORIBIO Ot 276.1 01/27/2014 FOFANA DOTORIBIO Ot 300.02 01/27/2014 FOFANA DOTORIBIO Ot 311 01/27/2014 FOFANA DOTORIBIO Ot 327.23 01/27/2014 FOFANA DOTORIBIO Ot 333.94 01/27/2014 FOFANA DOTORIBIO Ot 386.11 01/27/2014 FOFANA DOTORIBIO Ot 401.9 01/27/2014 FOFANA DOTORIBIO Ot 414.01 01/27/2014 FOFANA DOTORIBIO Ot 496 01/27/2014 FOFANA DOTORIBIO Ot 530.3 01/27/2014 FOFANA DOTORIBIO Ot 530.81 01/27/2014 FOFANA DOTORIBIO Ot 562.10 01/27/2014 FOFANA DO TORIBIO Roro Ot 599.0 01/27/2014 FOFANA DO TORIBIO Roro Ot 715.90 01/27/2014 FOFANA DO TORIBIO Roro Ot 727.51 01/27/2014 FOFANA DO TORIBIO Roro Ot 787.20 01/27/2014 FOFANA DO TORIBIO Read Ot V12.51 01/27/2014 FOFANA DO TORIBIO Roro Ot V12.55 01/27/2014 FOFANA DO TORIBIO Roro Ot V45.82 01/27/2014 FOFANA DO TORIBIO Roro Ot 244.9 01/27/2014 FOFANA DO, TORIBIO Roro Ot 272.0 01/27/2014 FOFANA DO TORIBIO Roro Ot 272.4 01/27/2014 FOFANA DO TORIBIO Roro Ot 276.1 01/27/2014 FOFANA DO, TORIBIO Roro Ot 300.02 01/27/2014 FOFANA DO, TORIBIO Roro Ot 311 01/27/2014 FOFANA DO, TORIBIO Roro Ot 327.23 01/27/2014 FOFANA DO TORIBIO Roro Ot 333.94 01/27/2014 FOFANA DO, TORIBIO Roro Ot 386.11 01/27/2014 FOFANA DO, TORIBIO Roro Ot 401.9 01/27/2014 FOFANA DO, TORIBIO Roro Ot 414.01 01/27/2014 FOFANA DO TORIBIO Roro Ot 496 01/27/2014 FOFANA DO, TORIBIO Roro Ot 530.3 01/27/2014 FOFANA DO, TORIBIO Roro Ot 530.81 01/27/2014 FOFANA DO, TORIBIO Roro Ot 562.10 01/27/2014 FOFANA DO TORIBIO Roro Ot 599.0 01/27/2014 FFOANA DO TORIBIO Roro Ot 715.90 01/27/2014 FOFANA DO TORIBIO Roro Ot 727.51 01/27/2014 FOFANA DO TORIBIO Roro Ot 787.20 01/27/2014 FOFANA DO TORIBIO Roro Ot V12.51 01/27/2014 FOFANA DO TORIBIO Roro Ot V12.55 01/27/2014 FOFANA DO, TORIBIO Roro Ot V45.82 01/27/2014 ARTIE JORGENSEN MD, Ot 724.2 01/27/2014 ARTIE JORGENSEN MD Ot 737.30 01/27/2014 FOFANA DOTORIBIO Ot 244.9 01/27/2014 FOFANA DOTORIBIO Ot 272.0 01/27/2014 FOFANA DOTORIBIO Ot 272.4 01/27/2014 FOFANA DOTORIBIO Ot 276.1 01/27/2014 FOFANATORIBIO DYER DO Ot 300.02 01/27/2014 FOFANA DOTORIBIO Ot 311 01/27/2014 FOFANA DOTORIBIO Ot 327.23 01/27/2014 FOFANA DOTORIBIO Ot 333.94 01/27/2014 FOFANATORIBIO DYER DO Ot 386.11 01/27/2014 FOFANATORIBIO DYER DO Ot 401.9 01/27/2014 FOFANATORIBIO DYER DO Ot 414.01 01/27/2014 FOFANATORIBIO DYER DO Ot 496 01/27/2014 FOFANATORIBIO DYER DO Ot 530.3 01/27/2014 FOFANATORIBIO DYER DO Ot 530.81 01/27/2014 FOFANA TORIBIO GUZMAN Ot 562.10 01/27/2014 FOFANATORIBIO DYER DO Ot 599.0 01/27/2014 FOFANATORIBIO DYER DO Ot 715.90 01/27/2014 FOFANATORIBIO DYER DO Ot 727.51 01/27/2014 FOFANATORIBIO DYER DO Ot 787.20 01/27/2014 FOFANATORIBIO DYER DO Ot V12.51 01/27/2014 FOFANA TORIBIO GUZMAN Ot V12.55 01/27/2014 FOFANATORIBIO DYER DO Ot V45.82 01/28/2014 FOFANA DOTORIBIO Ot 244.9 01/28/2014 FOFANA DOTORIBIO Ot 272.0 01/28/2014 FOFANA DOTORIBIO Ot 272.4 01/28/2014 FOFANATORIBIO DYER DO Ot 276.1 01/28/2014 FOFANATORIBIO DYER DO Ot 300.02 01/28/2014 FOFANATORIBIO DYER DO Ot 311 01/28/2014 FOFANATORIBIO DYER DO Ot 327.23 01/28/2014 FOFANATORIBIO DYER DO Ot 333.94 01/28/2014 FOFANATORIBIO DYER DO Ot 386.11 01/28/2014 FOFANA DO TORIBIO Roro Ot 401.9 01/28/2014 FOFANA DO TORIBIO Roro Ot 414.01 01/28/2014 FOFANA DO TORIBIO Roro Ot 496 01/28/2014 FOFANA DO TORIBIO Roro Ot 530.3 01/28/2014 FOFANA DO TORIBIO Roro Ot 530.81 01/28/2014 FOFANA DO TORIBIO Roro Ot 562.10 01/28/2014 FOFANA DO TORIBIO Roro Ot 599.0 01/28/2014 FOFANA DO TORIBIO Roro Ot 715.90 01/28/2014 FOFANA DO TORIBIO Roro Ot 727.51 01/28/2014 FOFANA DO TORIBIO Roro Ot 787.20 01/28/2014 FOFANA DO TORIBIO Read Ot V12.51 01/28/2014 FOFANA DO TORIBIO Read Ot V12.55 01/28/2014 FOFANA DO TORIBIO Roro Ot V45.82 01/29/2014 FOFANA DO TORIBIO Roro Ot 244.9 01/29/2014 FOFANA DO TORIBIO Roro Ot 272.0 01/29/2014 FOFANA DO TORIBIO Roro Ot 272.4 01/29/2014 FOFANA DO TORIBIO Roro Ot 276.1 01/29/2014 FOFANA DO TORIBIO Roro Ot 300.02 01/29/2014 FOFANA DO TORIBIO Roro Ot 311 01/29/2014 FOFANA DO TORIBIO Roro Ot 327.23 01/29/2014 FOFANA DOTORIBIO Ot 333.94 01/29/2014 FOFANA DOTORIIBO Ot 386.11 01/29/2014 FOFANA DO TORIBIO Roro Ot 401.9 01/29/2014 FOFANA DO TORIBIO Roro Ot 414.01 01/29/2014 FOFANA DOTORIBIO Ot 496 01/29/2014 FOFANA DOTORIBIO Ot 530.3 01/29/2014 FOFANA DO TORIBIO Roro Ot 530.81 01/29/2014 FOFANA DO TORIBIO Roro Ot 562.10 01/29/2014 FOFANA DOTORIBIO Ot 599.0 01/29/2014 FOFANA DOTORIBIO Ot 715.90 01/29/2014 FOFANA DO, TORIBIO Roro Ot 727.51 01/29/2014 FOFANA DO, TORIBIO Read Ot 787.20 01/29/2014 FOFANA DO TORIBIO Roro Ot V12.51 01/29/2014 FOFANA DO TORIBIO Roro Ot V12.55 01/29/2014 FOFANA DO TORIBIO Roro Ot V45.82 01/29/2014 FOFANA DO TORIBIO Roro Ot 244.9 01/29/2014 FOFANA DO TORIBIO Roro Ot 272.0 01/29/2014 FOFANA DO TORIBIO Roro Ot 272.4 01/29/2014 FOFANA DO TORIBIO Roro Ot 276.1 01/29/2014 FOFANA DOTORIBIO Ot 300.02 01/29/2014 FOFANA DOTORIBIO Ot 311 01/29/2014 FOFANA DO TORIBIO Roro Ot 327.23 01/29/2014 FOFANA DO TORIBIO Roro Ot 333.94 01/29/2014 FOFANA DOTORIBIO Ot 386.11 01/29/2014 FOFANA DOTORIBIO Ot 401.9 01/29/2014 FOFANA DO TORIBIO Roro Ot 414.01 01/29/2014 FOFANA DO TORIBIO Roro Ot 496 01/29/2014 FOFANA DO TORIBIO Roro Ot 530.3 01/29/2014 FOFANA DO TORIBIO Roro Ot 530.81 01/29/2014 FOFANA DO TORIBIO Roro Ot 562.10 01/29/2014 FOFANA DO TORIBIO Roro Ot 599.0 01/29/2014 FOFANA DOTORIBIO Ot 715.90 01/29/2014 FOFANA DO TORIBIO Roro Ot 727.51 01/29/2014 FOFANA DO TORIBIO Roro Ot 787.20 01/29/2014 FOFANA DO TORIBIO Read Ot V12.51 01/29/2014 FOFANA DO TORIBIO Roro Ot V12.55 01/29/2014 FOFANA DOTORIBIO Ot V45.82 01/30/2014 FOFANA DO TORIBIO Roro Ot 244.9 01/30/2014 FOFANA DOTORIBIO Ot 272.0 01/30/2014 FOFANA DOTORIBIO Ot 272.4 01/30/2014 FOFANA DOTORIBIO Ot 276.1 01/30/2014 FOFANA DOTORIBIO Ot 300.02 01/30/2014 FOFANA DOTORIBIO Ot 311 01/30/2014 FOFANA DOTORIBIO Ot 327.23 01/30/2014 FOFANA DOTORIBIO Ot 333.94 01/30/2014 FOFANA DOTORIBIO Ot 386.11 01/30/2014 FOFANA DOTORIBIO Ot 401.9 01/30/2014 FOFANA DOTORIBIO Ot 414.01 01/30/2014 FOFANA DOTORIBIO Ot 496 01/30/2014 FOFANA DOTORIBIO Ot 530.3 01/30/2014 FOFANA DOTORIBIO Ot 530.81 01/30/2014 FOFANA DOTORIBIO Ot 562.10 01/30/2014 FOFANA DOTORIBIO Ot 599.0 01/30/2014 FOFANA DOTORIBIO Ot 715.90 01/30/2014 FOFANA DOTORIBIO Ot 727.51 01/30/2014 FOFANA DOTORIBIO Ot 787.20 01/30/2014 FOFANA DOTORIBIO Ot V12.51 01/30/2014 FOFANA DOTORIBIO Ot V12.55 01/30/2014 FOFANA DOTORIBIO Ot V45.82 01/30/2014 FOFANA DOTORIBIO Ot 244.9 01/30/2014 FOFANA DOTORIBIO Ot 272.0 01/30/2014 FOFANA DOTORIBIO Ot 272.4 01/30/2014 FOFANA DOTORIBIO Ot 276.1 01/30/2014 FOFANA DOTORIBIO Ot 300.02 01/30/2014 FOFANA DOTORIBIO Ot 311 01/30/2014 FOFANA DOTORIBIO Ot 327.23 01/30/2014 FOFANA DOTORIBIO Ot 333.94 01/30/2014 FOFANA DOTORIBIO Ot 386.11 01/30/2014 FOFANA DOTORIBIO Ot 401.9 01/30/2014 FOFANA DOTORIBIO Ot 414.01 01/30/2014 FOFANA DOTORIBIO Ot 496 01/30/2014 FOFANA DOTORIBIO Ot 530.3 01/30/2014 FOFANA DOTORIBIO Ot 530.81 01/30/2014 FOFANA DOTORIBIO Ot 562.10 01/30/2014 FOFANA DOTORIBIO Ot 599.0 01/30/2014 FOFANA DOTORIBIO Ot 715.90 01/30/2014 FOFANA DOTORIBIO Ot 727.51 01/30/2014 FOFANA DOTORIBIO Ot 787.20 01/30/2014 FOFANA DOTORIBIO Ot V12.51 01/30/2014 FOFANA DOTORIBIO Ot V12.55 01/30/2014 FOFANA DOTOIRBIO Ot V45.82 01/30/2014 FOFANA DOTORIBIO Ot 244.9 01/30/2014 FOFANA DOTORIBIO Ot 272.0 01/30/2014 FOFANA TORIBIO GUZMAN Ot 272.4 01/30/2014 FOFANATORIBIO DYER DO Ot 276.1 01/30/2014 FOFANATORIBIO DYER DO Ot 300.02 01/30/2014 FOFANATORIBIO DYER DO Ot 311 01/30/2014 FOFANA DOTORIBIO Ot 327.23 01/30/2014 FOFANA DOTORIBIO Ot 333.94 01/30/2014 FOFANATORIBIO DYER DO Ot 386.11 01/30/2014 FOFANA DOTORIBIO Ot 401.9 01/30/2014 FOFANATORIBIO DYER DO Ot 414.01 01/30/2014 FOFANATORIBIO DYER DO Ot 496 01/30/2014 FOFANA TORIBIO GUZMAN Ot 530.3 01/30/2014 FOFANA DOTORIBIO Ot 530.81 01/30/2014 FOFANA DOTORIBIO Ot 562.10 01/30/2014 FOFANA DOTORIBIO Ot 599.0 01/30/2014 FOFANA DOTORIBIO Ot 715.90 01/30/2014 FOFANA DOTORIBIO Ot 727.51 01/30/2014 FOFANA DOTORIBIO Ot 787.20 01/30/2014 FOFANA DOTORIBIO Ot V12.51 01/30/2014 FOFANA DOTORIBIO Ot V12.55 01/30/2014 FOFANA TORIBIO GUZMAN Ot V45.82 01/30/2014 FOFANA DO, TORIBIO Roro Ot 244.9 01/30/2014 FOFANA DOTORIBIO Ot 272.0 01/30/2014 FOFANA DOTORIBIO Ot 272.4 01/30/2014 FOFANA DOTORIBIO Ot 276.1 01/30/2014 FOFANA DOTORIBIO Ot 300.02 01/30/2014 FOFANA DOTORIBIO Ot 311 01/30/2014 FOFANA DOTORIBIO Ot 327.23 01/30/2014 FOFANA DOTORIBIO Ot 333.94 01/30/2014 FOFANA DOTORIBIO Ot 386.11 01/30/2014 FOFANA DOTORIBIO Ot 401.9 01/30/2014 FOFANA DOTORIBIO Ot 414.01 01/30/2014 FOFANA DOTORIBIO Ot 496 01/30/2014 FOFANA DOTORIBIO Ot 530.3 01/30/2014 FOFANA DOTORIBIO Ot 530.81 01/30/2014 FOFANA DOTORIBIO Ot 562.10 01/30/2014 FOFANA DOTORIBIO Ot 599.0 01/30/2014 FOFANA DOTORIBIO Ot 715.90 01/30/2014 FOFANA DOTORIBIO Ot 727.51 01/30/2014 FOFANA DOTORIBIO Ot 787.20 01/30/2014 FOFANA DOTORIBIO Ot V12.51 01/30/2014 FOFANA DOTORIBIO Ot V12.55 01/30/2014 FOFANA DOTORIBIO Ot V45.82 01/31/2014 FOFANA DO TORIBIO Roro Ot 244.9 01/31/2014 FOFANA DOTORIBIO Ot 272.0 01/31/2014 FOFANA DOTORIBIO Ot 272.4 01/31/2014 FOFANA DOTORIBIO Ot 276.1 01/31/2014 FOFANA DOTORIBIO Ot 300.02 01/31/2014 FOFANA DOTORIBIO Ot 311 01/31/2014 FOFANA DOTORIBIO Ot 327.23 01/31/2014 FOFANA DOTORIBIO Ot 333.94 01/31/2014 FOAFNA DOTORIBIO Ot 386.11 01/31/2014 FOFANA DO TORIBIO Roro Ot 401.9 01/31/2014 FOFANA DOTORIBIO Ot 414.01 01/31/2014 FOFANA DOTORIBIO Ot 496 01/31/2014 FOFANA DOTORIBIO Ot 530.3 01/31/2014 FOFANA DOTORIBIO Ot 530.81 01/31/2014 FOFANA DOTORIBIO Ot 562.10 01/31/2014 FOFANA DOTORIBIO Ot 562.11 01/31/2014 FOFANA DO TORIBIO Roro Ot 599.0 01/31/2014 FOFANA DO TORIBIO Roro Ot 715.90 01/31/2014 FOFANA DOTORIBIO Ot 727.51 01/31/2014 FOAFNA DOTORIBIO Ot 787.20 01/31/2014 FOFANA DOTORIBIO Ot V12.51 01/31/2014 FOFANA DOTORIBIO Ot V12.55 01/31/2014 FOFANA DOTORIBIO Ot V45.82 02/01/2014 FOFANA DO TORIBIO Roro Ot 244.9 02/01/2014 FOFANA DO TORIBIO Roro Ot 272.0 02/01/2014 FOFANA DOTORIBIO Ot 272.4 02/01/2014 FOFANA DOTORIBIO Ot 276.1 02/01/2014 FOFANA DOTORIBIO Ot 300.02 02/01/2014 FOFANA DOTORIBIO Ot 311 02/01/2014 FOFANA DOTORIBIO Ot 327.23 02/01/2014 FOFANA DOTORIBIO Ot 333.94 02/01/2014 FOFANA DOTORIBIO Ot 386.11 02/01/2014 FOFANA DOTORIBIO Ot 401.9 02/01/2014 FOFANA DOTORIBIO Ot 414.01 02/01/2014 FOFANA DOTORIBIO Ot 496 02/01/2014 FOFANA DOTORIBIO Ot 530.3 02/01/2014 FOFANA DOTORIBIO Ot 530.81 02/01/2014 FOFANA DOTORIBIO Ot 562.10 02/01/2014 FOFANA DOTORIBIO Ot 562.11 02/01/2014 FOFANA DO TORIBIO Roro Ot 599.0 02/01/2014 FOFANA DO TORIBIO Roro Ot 715.90 02/01/2014 FOFANA DOTORIBIO Ot 727.51 02/01/2014 FOFANA DO TORIBIO Roro Ot 787.20 02/01/2014 FOFANA DO TORIBIO Roro Ot V12.51 02/01/2014 FOFANA DO TORIBIO Roro Ot V12.55 02/01/2014 FOFANA DO TORIBIO Roro Ot V45.82 02/02/2014 FOFANA DO TORIBIO Roro Ot 244.9 02/02/2014 FOFANA DO, TORIBIO Roro Ot 272.0 02/02/2014 FOFANATORIBIO DYER DO Ot 272.4 02/02/2014 FOFANATORIBIO DYER DO Ot 276.1 02/02/2014 FOFANATORIBIO DYER DO Ot 300.02 02/02/2014 FOFANATORIBIO DYER DO Ot 311 02/02/2014 FOFANATORIBIO DYER DO Ot 327.23 02/02/2014 FOFANATORIBIO DYER DO Ot 333.94 02/02/2014 FOFANA DO, TORIBIO Roro Ot 386.11 02/02/2014 FOFANA DO TORIBIO Roro Ot 401.9 02/02/2014 FOFANATORIBIO DYER DO Ot 414.01 02/02/2014 FOFANATORIBIO DYER DO Ot 496 02/02/2014 FOFANA DO, TORIBIO Roro Ot 530.3 02/02/2014 FOFANA DO, TORIBIO Roro Ot 530.81 02/02/2014 FOFANATORIBIO DYER DO Ot 562.10 02/02/2014 FOFANATORIBIO DYER DO Ot 562.11 02/02/2014 FOFANA DO TORIBIO Roro Ot 599.0 02/02/2014 FOFANA DO TORIBIO Roro Ot 715.90 02/02/2014 FOFANA DOTORIBIO Ot 727.51 02/02/2014 FOFANATORIBIO DYER DO Ot 787.20 02/02/2014 FOFANA DO TORIBIO Roro Ot V12.51 02/02/2014 FOFANA DO TORIBIO Roro Ot V12.55 02/02/2014 FOFANA TORIBIO GUZMAN Ot V45.82 02/03/2014 FOFANATORIBIO DYER DO Ot 244.9 02/03/2014 FOFANA DO TORIBIO Roro Ot 272.0 02/03/2014 FOFANA DOTORIBIO Ot 272.4 02/03/2014 FOFANA DOTORIBIO Ot 276.1 02/03/2014 FOFANA DO TORIBIO Roro Ot 300.02 02/03/2014 FOFANA DOTORIBIO Ot 311 02/03/2014 OFFANA DOTORIBIO Ot 327.23 02/03/2014 FOFANA DOTORIBIO Ot 333.94 02/03/2014 FOFANA DO TORIBIO Roro Ot 386.11 02/03/2014 FOFANA DOTORIBIO Ot 401.9 02/03/2014 FOFANATORIBIO DYER DO Ot 414.01 02/03/2014 FOFANATORIBIO DYER DO Ot 496 02/03/2014 FOFANATORIBIO DYER DO Ot 530.3 02/03/2014 FOFANA DO TORIBIO Roro Ot 530.81 02/03/2014 FOFANATORIBIO DYER DO Ot 562.10 02/03/2014 FOFANA TORIBIO GUZMAN Ot 562.11 02/03/2014 FOFANA DO TORIBIO Roro Ot 599.0 02/03/2014 FOFANA DO TORIBIO Roro Ot 715.90 02/03/2014 FOFANATORIBIO DYER DO Ot 727.51 02/03/2014 FOFANA DO TORIBIO Roro Ot 787.20 02/03/2014 FOFANA DO TORIBIO Roro Ot V12.51 02/03/2014 FOFANA TORIBIO GUZMAN Ot V12.55 02/03/2014 FOFANA TORIBIO GUZMAN Ot V45.82 02/05/2014 FOFANA DO TORIBIO Roro Ot 244.9 02/05/2014 FOFANA DO TORIBIO Roro Ot 272.0 02/05/2014 FOFANA DOTORIBIO Ot 272.4 02/05/2014 FOFANA TORIBIO GUZMAN Ot 276.1 02/05/2014 OFFANA TORIBIO GUZMAN Ot 300.02 02/05/2014 FOFANATORIBIO DYER DO Ot 311 02/05/2014 FOFANA DOTORIBIO Ot 327.23 02/05/2014 FOFANA DOTORIBIO Ot 333.94 02/05/2014 FOFANATORIBIO DYER DO Ot 386.11 02/05/2014 TORIBIO FOFANA DO Ot 401.9 02/05/2014 TORIBIO FOFANA DO Ot 414.01 02/05/2014 TORIBIO FOFANA DO Ot 496 02/05/2014 TORBIIO FOFANA DO Ot 530.3 02/05/2014 TORIBIO FOFANA DO Ot 530.81 02/05/2014 TORIBIO FOFANA DO Ot 562.10 02/05/2014 TORIBIO FOFANA DO Ot 562.11 02/05/2014 TORIBIO FOFANA DO Ot 599.0 02/05/2014 TORIBIO FOFANA DO Ot 715.90 02/05/2014 TORIBIO FOFANA DO Ot 727.51 02/05/2014 TORIBIO FOFANA DO Ot 787.20 02/05/2014 TORIBIO FOFANA DO Ot V12.51 02/05/2014 TORIBIO FOFANA DO Ot V12.55 02/05/2014 TORIBIO FOFANA DO Ot V45.82 02/05/2014 TORIBIO FOFANA DO Ot 038.9 SEPTICEMIA NOS 02/05/2014 TORIBIO FOFANA DO Ot 244.9 HYPOTHYROIDISM NOS 02/05/2014 TORIBIO FOFANA DO Ot 272.0 PURE HYPERCHOLESTEROLEM 02/05/2014 TORIBIO FOFANA DO Ot 272.4 HYPERLIPIDEMIA NEC/NOS 02/05/2014 TORIBIO FOFANA DO Ot 275.2 DIS MAGNESIUM METABOLISM 02/05/2014 TORIBIO FOFANA DO Ot 276.1 HYPOSMOLALITY 02/05/2014 TORIBIO FOFANA DO Ot 276.2 ACIDOSIS 02/05/2014 TORIBIO FOFANA DO Ot 276.8 HYPOPOTASSEMIA 02/05/2014 TORIBIO FOFANA DO Ot 280.0 CHR BLOOD LOSS ANEMIA 02/05/2014 TORIBIO FOFANA DO Ot 300.02 GENERALIZED ANXIETY DIS 02/05/2014 TORIBIO FOFANA DO Ot 311 DEPRESSIVE DISORDER NEC 02/05/2014 TORIBIO FOFANA DO Ot 327.23 OBSTRUCTIVE SLEEP APNEA (ADULT) ( PEDIATR 02/05/2014 TORIBIO FOFANA DO Ot 333.94 RESTLESS LEGS SYNDROME 02/05/2014 TORIBIO FOFANA DO Ot 386.11 BENIGN PARXYSMAL VERTIGO 02/05/2014 TORIBIO FOFANA DO Ot 401.9 HYPERTENSION NOS 02/05/2014 TORIBIO FOFANA DO Ot 414.01 CORONARY ATHEROSCLEROSIS OF [place] CORON 02/05/2014 TORIBIO FOFANA DO Ot 496 CHR AIRWAY OBSTRUCT NEC 02/05/2014 TORIBIO FOFANA DO Ot 530.3 ESOPHAGEAL STRICTURE 02/05/2014 TORIBIO FOFANA DO Ot 530.81 ESOPHAGEAL REFLUX 02/05/2014 TORIBIO FOFANA DO Ot 562.10 02/05/2014 TORIBIO FOFANA DO, Ot 562.11 DIVERTICULITIS COLON (W/O MENT OF HEMORR 02/05/2014 TORIBIO FOFANA DO Ot 569.5 INTESTINAL ABSCESS 02/05/2014 TORIBIO FOFANA DO Ot 590.80 PYELONEPHRITIS NOS 02/05/2014 TORIBIO FOFANA DO Ot 599.0 02/05/2014 TORIBIO FOFANA DO Ot 715.90 OSTEOARTHROS NOS-UNSPEC 02/05/2014 TORIBIO FOFANA DO Ot 727.51 POPLITEAL SYNOVIAL CYST 02/05/2014 TORIBIO FOFANA DO Ot 787.20 DYSPHAGIA, UNSPECIFIED 02/05/2014 TORIBIO FOFANA DO Ot 995.91 SEPSIS 02/05/2014 TORIBIO FOFANA DO, Ot V04.81 ND FOR PROPHYLACTIC VACCIN AND INOCULATI 02/05/2014 TORIBIO FOFANA DO, Ot V12.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 02/05/2014 TORIBIO FOFANA DO, Ot V12.55 PERSONAL HISTORY OF PULMONARY EMBOLISM 02/05/2014 TORIBIO FOFANA DO, Ot V45.82 PERCUTANEOUS TRANSLUM CORON ANGIOPLASTY 02/11/2014 TORIBIO FOFANA DO Ot 263.9 02/11/2014 TORIBIO FOFANA DO Ot 276.1 02/11/2014 TORIBIO FOFANA DO Ot 285.9 02/11/2014 TORIBIO FOFANA DO, Ot 300.00 02/11/2014 TORIBIO FOFANA DO Ot 311 02/11/2014 TORIBIO FOFANA DO Ot 386.30 02/11/2014 TORIBIO FOFANA DO, Ot 401.9 02/11/2014 TORIBIO FOFANA DO Ot 414.01 02/11/2014 TORIBIO FOFANA DO Ot 530.3 02/11/2014 TORIBIO FOFANA DO Ot 560.1 02/11/2014 TORIBIO FOFANA DO Ot 715.90 02/11/2014 TORIBIO FOFANA DO Ot 724.5 02/11/2014 TORIBIO FOFANA DO Ot 780.57 02/11/2014 TORIBIO FOFANA DO Ot V12.51 02/11/2014 TORIBIO FOFANA DO Ot V12.55 02/11/2014 TORIBIO FOFANA DO Ot V44.3 02/11/2014 TORIBIO FOFANA DO Ot V45.82 02/11/2014 TORIBIO FOFANA DO Ot V58.75 02/11/2014 TORIBIO FOFANA DO Ot 244.9 HYPOTHYROIDISM NOS 02/11/2014 TORIBIO FOFANA DO Ot 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 02/11/2014 TORIBIO FOFANA DO Ot 272.4 HYPERLIPIDEMIA NEC/NOS 02/11/2014 TORIBIO FOFANA DO Ot 276.1 HYPOSMOLALITY 02/11/2014 TORIBIO FOFANA DO Ot 285.9 ANEMIA NOS 02/11/2014 TORIBIO FOFANA DO Ot 300.02 GENERALIZED ANXIETY DIS 02/11/2014 TORIBIO FOFANA DO Ot 311 DEPRESSIVE DISORDER NEC 02/11/2014 TORIBIO FFOANA DO Ot 327.23 OBSTRUCTIVE SLEEP APNEA (ADULT) ( PEDIATR 02/11/2014 TORIBIO FOFANA DO Ot 333.94 RESTLESS LEGS SYNDROME 02/11/2014 TORIBIO FOFANA DO Ot 386.11 BENIGN PARXYSMAL VERTIGO 02/11/2014 TORIBIO FOFANA DO Ot 386.30 LABYRINTHITIS NOS 02/11/2014 TORIBIO FOFANA DO Ot 401.9 HYPERTENSION NOS 02/11/2014 TORIBIO FOFANA DO Ot 414.01 CORONARY ATHEROSCLEROSIS OF [place] CORON 02/11/2014 TORIBIO FOFANA DO Ot 530.3 ESOPHAGEAL STRICTURE 02/11/2014 TORIBIO FOFANA DO Ot 530.81 ESOPHAGEAL REFLUX 02/11/2014 TORIBIO FOFANA DO Ot 560.1 PARALYTIC ILEUS 02/11/2014 TORIBIO FOFANA DO, Ot 692.9 DERMATITIS NOS 02/11/2014 TORIBIO FOFANA DO Ot 715.90 OSTEOARTHROS NOS-UNSPEC 02/11/2014 TORIBIO FOFANA DO Ot 724.5 BACKACHE NOS 02/11/2014 TORIBIO FOFANA DO Ot 727.51 POPLITEAL SYNOVIAL CYST 02/11/2014 TORIBIO FOFANA DO Ot 787.20 DYSPHAGIA, UNSPECIFIED 02/11/2014 TORIBIO FOFANA DO Ot V12.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 02/11/2014 TORIBIO FOFANA DO Ot V12.55 PERSONAL HISTORY OF PULMONARY EMBOLISM 02/11/2014 TORIBIO FOFANA DO Ot V44.3 COLOSTOMY STATUS 02/11/2014 TORIBIO FOFANA DO Ot V45.82 PERCUTANEOUS TRANSLUM CORON ANGIOPLASTY 02/11/2014 TORIBIO FOFANA DO Ot V58.75 AFTERCARE POST SURGERY TEETH,ORAL CAVITY 03/20/2014 TORIBIO FOFANA DO Ot 599.0 03/22/2014 TORIBIO FOFANA DO Ot 998.59 03/26/2014 Ot 715.36 03/26/2014 Ot 719.06 03/26/2014 Ot 727.51 03/26/2014 Ot 562.10 03/26/2014 Ot 789.00 03/26/2014 Ot 805.2 03/26/2014 Ot E000.8 03/26/2014 Ot E884.4 03/26/2014 Ot 424.0 03/26/2014 Ot 429.9 03/26/2014 Ot 786.50 03/26/2014 Ot 786.50 03/26/2014 Ot 530.81 03/26/2014 Ot 787.02 03/26/2014 Ot 789.01 03/26/2014 Ot 789.06 03/26/2014 Ot 244.9 03/26/2014 Ot 272.4 03/26/2014 Ot 401.9 03/26/2014 Ot 535.40 03/26/2014 Ot 553.3 03/26/2014 Ot 562.10 03/26/2014 Ot V12.51 03/26/2014 Ot V58.63 03/26/2014 Ot V58.69 03/26/2014 Ot V72.84 03/26/2014 Ot 562.10 03/26/2014 Ot 789.00 03/26/2014 RIDINGS, ARELI C SHIPPING INSPECTOR Ot 788.30 03/26/2014 RIDINGS, ARELI C SHIPPING INSPECTOR Ot 789.00 03/26/2014 RIDINGS, ARELI C SHIPPING INSPECTOR Ot 788.30 03/26/2014 RIDINGS, ARELI C SHIPPING INSPECTOR Ot 789.00 03/26/2014 YAAKOV BUTLER, AURORA P Ot 787.20 03/26/2014 MANNY VALDEZ RESIDENT SERVICES DIRECTOR Ot 041.12 03/26/2014 JAQUELIN BUTLER, LIANA Cortes Ot V72.84 03/26/2014 ARELI FOFANA RESIDENT SERVICES DIRECTOR Ot 729.81 03/26/2014 ARELI FOFANA RESIDENT SERVICES DIRECTOR Ot 782.7 03/26/2014 YAAKOV BUTLER, AURORA P Ot 789.06 03/26/2014 TORIBIO FOFANA DO Ot 789.01 03/26/2014 JAGJIT BUTLER, VANESSA Garcia Ot V72.84 03/26/2014 JAGJIT BUTLER, VANESSA Garcia Ot 564.00 03/26/2014 JAGJIT BUTLER, VANESSA Garcia Ot 709.9 03/26/2014 JAGJIT BUTLER, VANESSA Garcia Ot V72.84 03/26/2014 JAGJIT BUTLER, VANESSA Garcia Ot V74.8 03/26/2014 TIGIST BUTLER, VALARIE Gongora Ot V72.84 03/26/2014 JOSLYN BUTLER, ARTIE Read Ot 724.2 03/26/2014 JOSLYN BUTLER, ARTIE Read Ot 737.30 03/26/2014 TORIBIO FOFANA DO Ot 599.0 03/26/2014 TORIBIO FOFANA DO Ot 998.59 03/27/2014 FOFANATORIBIO MOJICA DO Ot 599.0 04/01/2014 TORIBIO FOFANA DO Ot 998.59 04/16/2014 TORIBIO FOFANA DO Ot 564.00 04/16/2014 TORIBIO FOFANA DO Ot V44.3 06/03/2014 BETTY MAZARIEGOS DO Ot 569.69 OTH COLOST ENTEROSTOMY COMP 06/03/2014 BETTY MAZARIEGOS DO Ot 789.00 ABDOMINAL PAIN, UNSPECIFIED SITE 07/08/2014 TORIBIO WOLF DO Rolan Ot 244.9 HYPOTHYROIDISM NOS 07/08/2014 TORIBIO WOLF DO Ot 401.9 HYPERTENSION NOS 07/08/2014 TORIBIO WOLF DO Rolan Ot 786.50 CHEST PAIN NOS 07/08/2014 TORIBIO WOLF DO Rolan Ot 786.59 CHEST PAIN NEC 07/08/2014 TORIBIO WOLF DO Rloan Ot V45.82 PERCUTANEOUS TRANSLUM CORON ANGIOPLASTY 07/08/2014 TORIBIO WOLF DO Rolan Ot V58.69 OT MED,LT,CURRENT USE 08/23/2014 ALFREDO JOSÉ SHIPPING INSPECTOR Ot 564.00 UNSPEC CONSTIPATION 09/18/2014 Ot 715.36 09/18/2014 Ot 719.06 09/18/2014 Ot 727.51 09/18/2014 Ot 562.10 09/18/2014 Ot 789.00 09/18/2014 Ot 805.2 09/18/2014 Ot E000.8 09/18/2014 Ot E884.4 09/18/2014 Ot 424.0 09/18/2014 Ot 429.9 09/18/2014 Ot 786.50 09/18/2014 Ot 786.50 09/18/2014 Ot 530.81 09/18/2014 Ot 787.02 09/18/2014 Ot 789.01 09/18/2014 Ot 789.06 09/18/2014 Ot 244.9 09/18/2014 Ot 272.4 09/18/2014 Ot 401.9 09/18/2014 Ot 535.40 09/18/2014 Ot 553.3 09/18/2014 Ot 562.10 09/18/2014 Ot V12.51 09/18/2014 Ot V58.63 09/18/2014 Ot V58.69 09/18/2014 Ot V72.84 09/18/2014 Ot 562.10 09/18/2014 Ot 789.00 09/18/2014 RIDINGS, ARELI C SHIPPING INSPECTOR Ot 788.30 09/18/2014 RIDINGS, ARELI C SHIPPING INSPECTOR Ot 789.00 09/18/2014 RIDINGS, ARELI C SHIPPING INSPECTOR Ot 788.30 09/18/2014 RIDINGS, ARELI C SHIPPING INSPECTOR Ot 789.00 09/18/2014 YAAKOV BUTLER, AUR[place]A Tristan Ot 787.20 09/18/2014 MANNY VALDEZ RESIDENT SERVICES DIRECTOR Ot 041.12 09/18/2014 JAQUELIN BUTLER, LIANA S Ot V72.84 09/18/2014 ARELI FOFANA RESIDENT SERVICES DIRECTOR Ot 729.81 09/18/2014 ARELI FOFANA RESIDENT SERVICES DIRECTOR Ot 782.7 09/18/2014 YAAKOV BUTLER, AUR[place]A Tristan Ot 789.06 09/18/2014 TORIBIO FOFANA DO Ot 789.01 09/18/2014 JAGJIT BUTLER, VANESSA Garcia Ot V72.84 09/18/2014 JAGJIT BUTLER, VANESSA Garcia Ot 564.00 09/18/2014 JAGJIT BUTLER, VANESSA Garcia Ot 709.9 09/18/2014 JAGJIT BUTLER, VAENSSA Garcia Ot V72.84 09/18/2014 JAGJIT BUTLER, VANESSA Garcia Ot V74.8 09/18/2014 TIGIST BUTLER, VALARIE Gongora Ot V72.84 09/18/2014 ARTIE JORGENSEN MD Ot 724.2 09/18/2014 ARTIE JORGENSEN MD Ot 737.30 09/18/2014 TORIBIO FOFANA DO Ot 599.0 09/18/2014 TORIBIO FOFANA DO Ot 998.59 09/18/2014 TORIBIO FOFANA DO Ot 564.00 09/18/2014 TORIBIO FOFANA DO Ot V44.3 10/19/2014 NI GUTIERREZ Ot 276.1 HYPOSMOLALITY 10/19/2014 NI GUTIERREZ Ot 724.2 LUMBAGO 10/31/2014 MORAIMA MUÑIZ MD Ot 722.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 DISC DEGEN 11/12/2014 MORAIMA MUÑIZ MD Ot 721.3 11/12/2014 MORAIMA MUÑIZ MD Ot 733.13 11/12/2014 MORAIMA MUÑIZ MD Ot 737.30 12/07/2014 TORIBIO FOFANA DO Ot E87.1 HYPO-OSMOLALITY AND HYPONATREMIA 12/07/2014 TORIBIO FOFANA DO Ot F32.9 MAJOR DEPRESSIVE DISORDER, SINGLE EPISOD 12/07/2014 TORIBIO FOFANA DO Ot M84.48XA PATHOLOGICAL FRACTURE, OTHER SITE, INIT 12/07/2014 TORIBIO FOFANA DO Ot Z23 ENCOUNTER FOR IMMUNIZATION 12/11/2014 MORAIMA MUÑIZ MD Ot 722.52 12/11/2014 MORAIMA MUÑIZ MD Ot 786.50 12/21/2014 TORIBIO FOFANA DO Ot E03.9 HYPOTHYROIDISM, UNSPECIFIED 12/21/2014 TORIBIO FOFANA DO Ot E78.5 HYPERLIPIDEMIA, UNSPECIFIED 12/21/2014 TORIBIO FOFANA DO Ot F41.1 GENERALIZED ANXIETY DISORDER 12/21/2014 TORIBIO FOFANA DO Ot G25.81 RESTLESS LEGS SYNDROME 12/21/2014 TORIBIO FOFANA DO Ot G47.33 OBSTRUCTIVE SLEEP APNEA (ADULT) ( PEDIATR 12/21/2014 TORIBIO FOFANA DO Ot H81.10 BENIGN PAROXYSMAL VERTIGO, UNSPECIFIED E 12/21/2014 TORIBIO FOFANA DO Ot I10 ESSENTIAL (PRIMARY) HYPERTENSION 12/21/2014 TORIBIO FOFANA DO Ot I25.10 ATHSCL HEART DISEASE OF [place] CORONARY 12/21/2014 TORIBIO FOFANA DO Ot K21.9 GASTRO-ESOPHAGEAL REFLUX DISEASE WITHOUT 12/21/2014 TORIBIO FOFANA DO Ot K59.00 CONSTIPATION, UNSPECIFIED 12/21/2014 TORIBIO FOFANA DO Ot M84.48XD PATHOLOGICAL FRACTURE, OTH SITE, SUBS FO 12/21/2014 TORIBIO FOFANA DO Ot R32 UNSPECIFIED URINARY INCONTINENCE 12/25/2014 MORAIMA MUÑIZ MD Ot 722.52 12/25/2014 MORAIMA MUÑIZ MD Ot 786.50 12/28/2014 LEXUS CHOWDHURY MD Ot E03.9 HYPOTHYROIDISM, UNSPECIFIED 12/28/2014 LEXUS CHOWDHURY MD Ot E78.5 HYPERLIPIDEMIA, UNSPECIFIED 12/28/2014 LEXUS CHOWDHURY MD Ot F41.1 GENERALIZED ANXIETY DISORDER 12/28/2014 LEXUS CHOWDHURY MD Ot G25.81 RESTLESS LEGS SYNDROME 12/28/2014 LEXUS CHOWDHURY MD Ot G47.33 OBSTRUCTIVE SLEEP APNEA (ADULT) (PEDIATR 12/28/2014 LEXUS CHOWDHURY MD Ot G95.9 DISEASE OF [place], UNSPECIFIED 12/28/2014 LEXUS CHOWDHURY MD Ot I10 ESSENTIAL (PRIMARY) HYPERTENSION 12/28/2014 LEXUS CHOWDHURY MD Ot I25.10 ATHSCL HEART DISEASE OF [place] CORONARY 12/28/2014 TRENTON BUTLER, LEXUS Reed Ot K21.9 GASTRO-ESOPHAGEAL REFLUX DISEASE WITHOUT 12/28/2014 LEXUS CHOWDHURY MD Ot K59.09 OTHER CONSTIPATION 12/28/2014 LEXUS CHOWDHURY MD Ot L21.0 12/28/2014 LEXUS CHOWDHURY MD Ot L21.9 SEBORRHEIC DERMATITIS, UNSPECIFIED 12/28/2014 LEXUS CHOWDHURY MD Ot M16.12 UNILATERAL PRIMARY OSTEOARTHRITIS, LEFT 12/28/2014 LEXUS CHOWDHURY MD Ot M70.62 TROCHANTERIC BURSITIS, LEFT HIP 12/28/2014 LEXUS CHOWDHURY MD Ot M80.88XD OTH OSTEOPOR W CRNT PATH FX, VERTEB, 7TH 12/28/2014 LEXUS CHOWDHURY MD Ot R32 UNSPECIFIED URINARY INCONTINENCE 12/28/2014 LEXUS CHOWDHURY MD Ot T40.605A ADVERSE EFFECT OF UNSPECIFIED NARCOTICS, 12/28/2014 LEXUS CHOWDHURY MD Ot Z93.3 COLOSTOMY STATUS 01/20/2015 TORIBIO FOFANA DO Ot 599.0 01/20/2015 TORIBIO FOFANA DO Ot 599.0 03/25/2015 Ot 562.10 03/25/2015 Ot 789.00 03/25/2015 Ot 805.2 03/25/2015 Ot E000.8 03/25/2015 Ot E884.4 03/25/2015 Ot 424.0 03/25/2015 Ot 429.9 03/25/2015 Ot 786.50 03/25/2015 Ot 786.50 03/25/2015 Ot 530.81 03/25/2015 Ot 787.02 03/25/2015 Ot 789.01 03/25/2015 Ot 789.06 03/25/2015 Ot 244.9 03/25/2015 Ot 272.4 03/25/2015 Ot 401.9 03/25/2015 Ot 535.40 03/25/2015 Ot 553.3 03/25/2015 Ot 562.10 03/25/2015 Ot V12.51 03/25/2015 Ot V58.63 03/25/2015 Ot V58.69 03/25/2015 Ot V72.84 03/25/2015 Ot 562.10 03/25/2015 Ot 789.00 03/25/2015 RIDINGS, ARELI C SHIPPING INSPECTOR Ot 788.30 03/25/2015 RIDINGS, ARELI C SHIPPING INSPECTOR Ot 789.00 03/25/2015 RIDINGS, ARELI C SHIPPING INSPECTOR Ot 788.30 03/25/2015 RIDINGS, ARELI C SHIPPING INSPECTOR Ot 789.00 03/25/2015 YAAKOV BUTLER, AURORA P Ot 787.20 03/25/2015 COURTNEY MANNY Sharmila RESIDENT SERVICES DIRECTOR Ot 041.12 03/25/2015 JAQUELIN BUTLER, LIANA S Ot V72.84 03/25/2015 ARELI FOFANA L RESIDENT SERVICES DIRECTOR Ot 729.81 03/25/2015 ARELI FOFANA L RESIDENT SERVICES DIRECTOR Ot 782.7 03/25/2015 YAAKOV BUTLER, AUR[place]A P Ot 789.06 03/25/2015 TORIBIO FOFANA DO Ot 789.01 03/25/2015 JAGJIT BUTLER, VANESSA Garcia Ot V72.84 03/25/2015 JAGJIT BUTLER, VANESSA Garcia Ot 564.00 03/25/2015 JAGJIT BUTLER, VANESSA Garcia Ot 709.9 03/25/2015 JAGJIT BUTLER, VANESSA Garcia Ot V72.84 03/25/2015 JAGJIT BUTLER, VANESSA Garcia Ot V74.8 03/25/2015 TIGIST BUTLER, VALARIE Gongora Ot V72.84 03/25/2015 JOSLYN BUTLER, ARTIE Read Ot 724.2 03/25/2015 JOSLYN BUTLER, ARTIE Read Ot 737.30 03/25/2015 TORIBIO FOFANA DO Ot 599.0 03/25/2015 TORIBIO FOFANA DO Ot 998.59 03/25/2015 TORIBIO FOFANA DO Ot 564.00 03/25/2015 TORIBIO FOFANA DO Ot V44.3 03/25/2015 MARY KAY BUTLER, MORAIMA Read Ot 721.3 03/25/2015 MARY KAY BUTLER, MORAIMA Read Ot 733.13 03/25/2015 MORAIMA MUÑIZ MD Ot 737.30 03/25/2015 AMRY KAY BUTLER, MORAIMA Read Ot 722.52 03/25/2015 MARY KAY BUTLER, MORAIMA Read Ot 786.50 03/25/2015 LENA BUTLER, RADHA Sanchez Ot G89.29 OTHER CHRONIC PAIN 03/25/2015 LENA BUTLER, RADHA Sanchez Ot M54.5 LOW BACK PAIN 03/25/2015 LENA BUTLER, ARDHA Sanchez Ot N39.0 URINARY TRACT INFECTION, SITE NOT SPECIF 03/25/2015 LENA BUTLER, RADHA aSnchez Ot R07.9 CHEST PAIN, UNSPECIFIED 03/25/2015 LENA BUTLER, RADHA Sanchez Ot Z93.3 COLOSTOMY STATUS 03/25/2015 LENA BUTLER, RADHA Sanchez Ot Z98.89 OTHER SPECIFIED POSTPROCEDURAL STATES 04/16/2015 Ot 562.10 04/16/2015 Ot 789.00 04/16/2015 Ot 805.2 04/16/2015 Ot E000.8 04/16/2015 Ot E884.4 04/16/2015 Ot 424.0 04/16/2015 Ot 429.9 04/16/2015 Ot 786.50 04/16/2015 Ot 786.50 04/16/2015 Ot 530.81 04/16/2015 Ot 787.02 04/16/2015 Ot 789.01 04/16/2015 Ot 789.06 04/16/2015 Ot 244.9 04/16/2015 Ot 272.4 04/16/2015 Ot 401.9 04/16/2015 Ot 535.40 04/16/2015 Ot 553.3 04/16/2015 Ot 562.10 04/16/2015 Ot V12.51 04/16/2015 Ot V58.63 04/16/2015 Ot V58.69 04/16/2015 Ot V72.84 04/16/2015 Ot 562.10 04/16/2015 Ot 789.00 04/16/2015 RIDINGS, ARELI C SHIPPING INSPECTOR Ot 788.30 04/16/2015 RIDINGS, ARELI C SHIPPING INSPECTOR Ot 789.00 04/16/2015 RIDINGS, ARELI C SHIPPING INSPECTOR Ot 788.30 04/16/2015 RIDINGS, ARELI C SHIPPING INSPECTOR Ot 789.00 04/16/2015 YAAKOV BUTLER, [place] Tristan Ot 787.20 04/16/2015 MANNY VALDEZ Ot 041.12 04/16/2015 JAQUELIN BUTLER, LIANA Cortes Ot V72.84 04/16/2015 ARELI FOFANA RESIDENT SERVICES DIRECTOR Ot 729.81 04/16/2015 ARELI FOFANA RESIDENT SERVICES DIRECTOR Ot 782.7 04/16/2015 YAAKOV BUTLER, [place] Tristan Ot 789.06 04/16/2015 TORIBIO FOFANA DO Ot 789.01 04/16/2015 JAGJIT BUTLER, VANESSA Garcia Ot V72.84 04/16/2015 JAGJIT BUTLER, VANESSA Garcia Ot 564.00 04/16/2015 JAGJIT BUTLER, VANESSA Garcia Ot 709.9 04/16/2015 JAGJIT BUTLER, VANESSA Garcia Ot V72.84 04/16/2015 JAGJIT BUTLER, VANESSA Garcia Ot V74.8 04/16/2015 TIGIST BUTLER, VALARIE Gongora Ot V72.84 04/16/2015 JOSLYN BUTLER, ARTIE Read Ot 724.2 04/16/2015 JOSLYN BUTLER, ARTIE Read Ot 737.30 04/16/2015 TORIBIO FOFANA DO Ot 599.0 04/16/2015 TORIBIO FOFANA DO Ot 998.59 04/16/2015 TORIBIO FOFANA DO Ot 564.00 04/16/2015 TORIBIO FOFANA DO Ot V44.3 04/16/2015 MARY KAY BUTLER, MORAIMA Read Ot 721.3 04/16/2015 MARY KAY BUTLER, MORAIMA Read Ot 733.13 04/16/2015 MORAIMA MUÑIZ MD Ot 737.30 04/16/2015 MARY KAY BUTLER, MORAIMA Read Ot 722.52 04/16/2015 MARY KAY BUTLER, MORAIMA Read Ot 786.50 04/19/2015 NI GUTIERREZ Ot K43.5 PARASTOMAL HERNIA WITHOUT OBSTRUCTION OR 04/19/2015 NI GUTIERREZ Ot M47.895 OTHER SPONDYLOSIS, THORACOLUMBAR REGION 04/19/2015 NI GUTIERREZ Ot S20.221A CONTUSION OF RIGHT BACK WALL OF THORAX, 04/19/2015 NI GUTIERREZ Ot S39.012A STRAIN OF MUSCLE, FASCIA AND TENDON OF L 04/19/2015 NI GUTIERREZ Ot W19.XXXA UNSPECIFIED FALL, INITIAL ENCOUNTER 04/19/2015 NI GUTIERREZ Ot Y99.8 OTHER EXTERNAL CAUSE STATUS 04/19/2015 NI GUTIERREZ Ot Z93.3 COLOSTOMY STATUS 04/27/2015 JOSLYN BUTLER, ARTIE Read Ot M80.08XA 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 05/06/2015 AGUS BUTLER FACC, ALI FACP CCDS Ot E78.4 05/06/2015 AGUS BUTLER FACC, ALI FACP CCDS Ot I10 05/06/2015 AGUS BUTLER FACC, ALI FACP CCDS Ot I25.10 05/06/2015 AGUS BUTLER FACC, ALI FACP CCDS Ot R06.02 05/06/2015 AGUS BUTLER FACC, ALI FACP CCDS Ot Z93.3 05/08/2015 NITO VANESSA MD Ot F17.211 05/08/2015 NITO VANESSA MD Ot G89.29 05/08/2015 NITO VANESSA MD Ot M41.9 05/08/2015 NITO VANESSA MD Ot M47.896 05/08/2015 NITO VANESSA MD Ot M54.5 05/08/2015 NITO VANESSA MD Ot M85.88 05/08/2015 RASHEEDA BUTLER, NITO Mojica Ot W01.0XXA 05/08/2015 NITO VANESSA MD Ot Y92.59 05/08/2015 NITO VANESSA MD Ot Y99.8 05/08/2015 NITO VANESSA MD Ot Z93.3 05/12/2015 ARTIE JORGENSEN MD Ot M54.10 05/19/2015 AGUS BUTLER FACC, ALI FACP CCDS Ot E78.4 05/19/2015 AGUS BUTLER FACC, ALI FACP CCDS Ot I10 05/19/2015 AGUS BUTLER FACC, ALI FACP CCDS Ot I25.10 05/19/2015 AGUS BUTLER FACC, ALI FACP CCDS Ot R06.02 05/19/2015 AGUS BUTLER FACC, ALI FACP CCDS Ot Z93.3 05/19/2015 NITO VANESSA MD Ot F17.211 05/19/2015 NITO VANESSA MD Ot G89.29 05/19/2015 NITO VANESSA MD Ot M41.9 05/19/2015 NITO VANESSA MD K Ot M47.896 05/19/2015 RASHEEDA BUTLER, NITO Mojica Ot M54.5 05/19/2015 RASHEEDA BUTLER, NITO Mojica Ot M85.88 05/19/2015 RASHEEDA BUTLER, NITO Mojica Ot W01.0XXA 05/19/2015 RASHEEDA BUTLER, NITO Mojica Ot Y92.59 05/19/2015 RASHEEDA BUTLER, NITO Mojica Ot Y99.8 05/19/2015 RASHEEDA BUTLER, NITO Mojica Ot Z93.3 05/24/2015 Ot F17.211 NICOTINE DEPENDENCE, CIGARETTES, IN JAVY 05/24/2015 Ot R07.89 OTHER CHEST PAIN 05/26/2015 Ot R07.89 05/26/2015 Ot R07.89 05/26/2015 Ot F17.211 05/26/2015 Ot R07.89 06/10/2015 JOSLYN BUTLER, ARTIE Read Ot M54.10 RADICULOPATHY, SITE UNSPECIFIED 06/12/2015 YSABEL ABREU DO Ot B37.81 CANDIDAL ESOPHAGITIS 06/12/2015 YSABEL ABREU DO Ot B96.20 UNSP ESCHERICHIA COLI THE CAUSE OF DI 06/12/2015 YSABEL ABREU DO Ot E03.9 HYPOTHYROIDISM, UNSPECIFIED 06/12/2015 YSABEL ABREU DO Ot F32.9 MAJOR DEPRESSIVE DISORDER, SINGLE EPISOD 06/12/2015 YSABEL ABREU DO Ot F41.9 ANXIETY DISORDER, UNSPECIFIED 06/12/2015 YSABEL ABREU DO Ot I25.10 ATHSCL HEART DISEASE OF [place] CORONARY 06/12/2015 YSABEL ABREU DO Ot K22.2 ESOPHAGEAL OBSTRUCTION 06/12/2015 YSABEL ABREU DO Ot M80.08XA 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 06/12/2015 YSABEL ABREU DO Ot N39.0 URINARY TRACT INFECTION, SITE NOT SPECIF 06/12/2015 YSABEL ABREU DO Ot Z11.2 ENCOUNTER FOR SCREENING FOR OTHER BACTER 06/12/2015 YSABEL ABREU DO Ot Z87.891 PERSONAL HISTORY OF NICOTINE DEPENDENCE 06/18/2015 ALFREDO JOSÉ SHIPPING INSPECTOR Ot S22.080A WEDGE COMPRESSION FRACTURE OF T11-T12 VE 06/18/2015 ALFREDO JOSÉ SHIPPING INSPECTOR Ot W19.XXXA UNSPECIFIED FALL, INITIAL ENCOUNTER 06/18/2015 ALFREDO JOSÉ SHIPPING INSPECTOR Ot Y92.[address] IN [facility] NON-[facility] ( PRIVATE 06/18/2015 ALFREDO JOSÉ SHIPPING INSPECTOR Ot Y99.8 OTHER EXTERNAL CAUSE STATUS 06/18/2015 ALFREDO JOSÉ SHIPPING INSPECTOR Ot Z98.89 OTHER SPECIFIED POSTPROCEDURAL STATES 06/19/2015 ALFREDO JOSÉ SHIPPING INSPECTOR Ot S22.080A WEDGE COMPRESSION FRACTURE OF T11-T12 VE 06/19/2015 ALFREDO JOSÉ SHIPPING INSPECTOR Ot W19.XXXA UNSPECIFIED FALL, INITIAL ENCOUNTER 06/19/2015 ALFREDO JOSÉ SHIPPING INSPECTOR Ot Y92.[address] IN [facility] NON[facility] ( PRIVATE 06/19/2015 ALFREDO JOSÉ SHIPPING INSPECTOR Ot Y99.8 OTHER EXTERNAL CAUSE STATUS 06/19/2015 ALFREDO JOSÉ APRN Ot Z98.89 OTHER SPECIFIED POSTPROCEDURAL STATES 06/21/2015 LENA BUTLER, RADHA Sanchez Ot R47.89 OTHER SPEECH DISTURBANCES 06/21/2015 LENA BUTLER, RADHA Sanchez Ot T42.4X1A POISONING BY BENZODIAZEPINES, ACCIDENTAL 06/21/2015 LENA BUTLER, RADHA Sanchez Ot Z87.891 PERSONAL HISTORY OF NICOTINE DEPENDENCE 06/23/2015 LENA BUTLER, RADHA Sanchez Ot R47.89 OTHER SPEECH DISTURBANCES 06/23/2015 LENA BUTLER, RADHA Sanchez Ot T42.4X1A POISONING BY BENZODIAZEPINES, ACCIDENTAL 06/23/2015 LENA BUTLER, RADHA Sanchez Ot Z87.891 PERSONAL HISTORY OF NICOTINE DEPENDENCE 06/23/2015 Ot 562.10 DIVERTICULOSIS COLON (W/O MENT OF HEMORR 06/23/2015 Ot 789.00 ABDOMINAL PAIN, UNSPECIFIED SITE 06/23/2015 Ot 805.2 FX DORSAL VERTEBRA-CLOSE 06/23/2015 Ot E000.8 OTHER EXTERNAL CAUSE STATUS 06/23/2015 Ot E884.4 FALL FROM BED 06/23/2015 Ot 424.0 MITRAL VALVE DISORDER 06/23/2015 Ot 429.9 HEART DISEASE NOS 06/23/2015 Ot 786.50 CHEST PAIN NOS 06/23/2015 Ot 786.50 CHEST PAIN NOS 06/23/2015 Ot 530.81 ESOPHAGEAL REFLUX 06/23/2015 Ot 787.02 NAUSEA ALONE 06/23/2015 Ot 789.01 ABDOMINAL PAIN, RIGHT UPPER QUADRANT 06/23/2015 Ot 789.06 ABDOMINAL PAIN, EPIGASTRIC 06/23/2015 Ot 244.9 HYPOTHYROIDISM NOS 06/23/2015 Ot 272.4 HYPERLIPIDEMIA NEC/NOS 06/23/2015 Ot 401.9 HYPERTENSION NOS 06/23/2015 Ot 535.40 OTH SPECIFIED GASTRITIS,W/O MENTION OF H 06/23/2015 Ot 553.3 DIAPHRAGMATIC HERNIA 06/23/2015 Ot 562.10 DIVERTICULOSIS COLON (W/O MENT OF HEMORR 06/23/2015 Ot V12.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 06/23/2015 Ot V58.63 LONG-TERM(CURRENT)USE OF ANTIPLATELET/AN 06/23/2015 Ot V58.69 OTH MED,LT,CURRENT USE 06/23/2015 Ot V72.84 EXAM PRE-OPERATIVE NOS 06/23/2015 Ot 562.10 DIVERTICULOSIS COLON (W/O MENT OF HEMORR 06/23/2015 Ot 789.00 ABDOMINAL PAIN, UNSPECIFIED SITE 06/23/2015 RIDINGS, ARELI C SHIPPING INSPECTOR Ot 788.30 UNSPECIFIED URINARY INCONTINENCE 06/23/2015 RIDINGS, ARELI C SHIPPING INSPECTOR Ot 789.00 ABDOMINAL PAIN, UNSPECIFIED SITE 06/23/2015 RIDINGS, ARELI C SHIPPING INSPECTOR Ot 788.30 UNSPECIFIED URINARY INCONTINENCE 06/23/2015 RIDINGS, ARELI C SHIPPING INSPECTOR Ot 789.00 ABDOMINAL PAIN, UNSPECIFIED SITE 06/23/2015 YAAKOV BUTLER, AURORA Tristan Ot 787.20 DYSPHAGIA, UNSPECIFIED 06/23/2015 MANNY VALDEZ RESIDENT SERVICES DIRECTOR Ot 041.12 METHICILLIN RESISTANT STAPHYLOCOCCUS AUR 06/23/2015 JAQUELIN BUTLER, LIANA Cortes Ot V72.84 EXAM PRE-OPERATIVE NOS 06/23/2015 ARELI FOFANA RESIDENT SERVICES DIRECTOR Ot 729.81 SWELLING OF LIMB 06/23/2015 ARELI FOFANA RESIDENT SERVICES DIRECTOR Ot 782.7 SPONTANEOUS ECCHYMOSES 06/23/2015 YAAKOV BUTLER, AURORA Tristan Ot 789.06 ABDOMINAL PAIN, EPIGASTRIC 06/23/2015 TORIBIO FOFANA DO Ot 789.01 ABDOMINAL PAIN, RIGHT UPPER QUADRANT 06/23/2015 JAGJIT BUTLER, VANESSA Garcia Ot V72.84 EXAM PRE-OPERATIVE NOS 06/23/2015 JAGJIT BUTLER, VANESSA Garcia Ot 564.00 UNSPEC CONSTIPATION 06/23/2015 JAGJIT BUTLER, VANESSA Garcia Ot 709.9 SKIN DISORDER NOS 06/23/2015 JAGJIT BUTLER, VANESSA Garcia Ot V72.84 EXAM PRE-OPERATIVE NOS 06/23/2015 JAGJIT BUTLER, VANESSA Garcia Ot V74.8 SCREEN-BACTERIAL DIS NEC 06/23/2015 TIGIST BUTLER, VALARIE Gongora Ot V72.84 EXAM PRE-OPERATIVE NOS 06/23/2015 ARTIE JORGENSEN MD Ot 724.2 LUMBAGO 06/23/2015 ARTIE JORGENSEN MD Ot 737.30 IDIOPATHIC SCOLIOSIS 06/23/2015 TORIBIO FOFAAN DO Ot 599.0 URIN TRACT INFECTION NOS 06/23/2015 TORIBIO FOFANA DO Ot 998.59 OTH POSTOPER INFECTION 06/23/2015 TORIBIO FOFANA DO Ot 564.00 UNSPEC CONSTIPATION 06/23/2015 TORIBIO FOFANA DO Ot V44.3 COLOSTOMY STATUS 06/23/2015 MORAIMA MUÑIZ MD Ot 721.3 LUMBOSACRAL SPONDYLOSIS 06/23/2015 MORAIMA MUÑIZ MD Ot 733.13 PATHOLOGIC FRACTURE, VERTEBRAE 06/23/2015 MORAIMA MUÑIZ MD Ot 737.30 IDIOPATHIC SCOLIOSIS 06/23/2015 MORAIMA MUÑIZ MD Ot 722.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 DISC DEGEN 06/23/2015 MORAIMA MUÑIZ MD Ot 786.50 CHEST PAIN NOS 06/23/2015 AGUS BUTLER FACC, LUIS ELLER CCDS Ot E78.4 OTHER HYPERLIPIDEMIA 06/23/2015 AGUS BUTLER FACC, LUIS HANLEYP CCDS Ot I10 ESSENTIAL (PRIMARY) HYPERTENSION 06/23/2015 LUIS GOLDSMITH MD, FACC, FACP CCDS Ot I25.10 ATHSCL HEART DISEASE OF [place] CORONARY 06/23/2015 LUIS GOLDSMITH MD, FACC, FACP CCDS Ot R06.02 SHORTNESS OF BREATH 06/23/2015 LUIS GOLDSMITH MD, FACC, FACP CCDS Ot Z93.3 COLOSTOMY STATUS 06/23/2015 ARTIE JORGENSEN MD Ot M54.10 RADICULOPATHY, SITE UNSPECIFIED 06/23/2015 ODGERS NITO BUTLER Ot F17.211 NICOTINE DEPENDENCE, CIGARETTES, IN JAVY 06/23/2015 NITO VANESSA MD Ot G89.29 OTHER CHRONIC PAIN 06/23/2015 NITO VANESSA MD Ot M41.9 SCOLIOSIS, UNSPECIFIED 06/23/2015 NITO VANESSA MD Ot M47.896 OTHER SPONDYLOSIS, LUMBAR REGION 06/23/2015 NITO VANESSA MD Ot M54.5 LOW BACK PAIN 06/23/2015 NITO VANESSA MD Ot M85.88 OT DISRD OF BONE DENSITY AND STRUCTURE, 06/23/2015 NITO VANESSA MD Ot W01.0XXA FALL SAME LEV FROM SLIP/TRIP W/O STRIKE 06/23/2015 NITO VANESSA MD Ot Y92.[address] 06/23/2015 NITO VANESSA MD Ot Y99.8 OTHER EXTERNAL CAUSE STATUS 06/23/2015 NITO VANESSA MD Ot Z93.3 COLOSTOMY STATUS 06/23/2015 ARTIE JORGENSEN MD Ot Z01.818 ENCOUNTER FOR OTHER PREPROCEDURAL EXAMIN 06/23/2015 ARTIE JORGENSEN MD Ot M54.10 RADICULOPATHY, SITE UNSPECIFIED 06/23/2015 Ot 562.10 DIVERTICULOSIS COLON (W/O MENT OF HEMORR 06/23/2015 Ot 789.00 ABDOMINAL PAIN, UNSPECIFIED SITE 06/23/2015 Ot 805.2 FX DORSAL VERTEBRA-CLOSE 06/23/2015 Ot E000.8 OTHER EXTERNAL CAUSE STATUS 06/23/2015 Ot E884.4 FALL FROM BED 06/23/2015 Ot 424.0 MITRAL VALVE DISORDER 06/23/2015 Ot 429.9 HEART DISEASE NOS 06/23/2015 Ot 786.50 CHEST PAIN NOS 06/23/2015 Ot 786.50 CHEST PAIN NOS 06/23/2015 Ot 530.81 ESOPHAGEAL REFLUX 06/23/2015 Ot 787.02 NAUSEA ALONE 06/23/2015 Ot 789.01 ABDOMINAL PAIN, RIGHT UPPER QUADRANT 06/23/2015 Ot 789.06 ABDOMINAL PAIN, EPIGASTRIC 06/23/2015 Ot 244.9 HYPOTHYROIDISM NOS 06/23/2015 Ot 272.4 HYPERLIPIDEMIA NEC/NOS 06/23/2015 Ot 401.9 HYPERTENSION NOS 06/23/2015 Ot 535.40 OTH SPECIFIED GASTRITIS,W/O MENTION OF H 06/23/2015 Ot 553.3 DIAPHRAGMATIC HERNIA 06/23/2015 Ot 562.10 DIVERTICULOSIS COLON (W/O MENT OF HEMORR 06/23/2015 Ot V12.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 06/23/2015 Ot V58.63 LONG-TERM(CURRENT)USE OF ANTIPLATELET/AN 06/23/2015 Ot V58.69 OTH MED,LT,CURRENT USE 06/23/2015 Ot V72.84 EXAM PRE-OPERATIVE NOS 06/23/2015 Ot 562.10 DIVERTICULOSIS COLON (W/O MENT OF HEMORR 06/23/2015 Ot 789.00 ABDOMINAL PAIN, UNSPECIFIED SITE 06/23/2015 RIDINGS, ARELI C SHIPPING INSPECTOR Ot 788.30 UNSPECIFIED URINARY INCONTINENCE 06/23/2015 RIDINGS, ARELI C SHIPPING INSPECTOR Ot 789.00 ABDOMINAL PAIN, UNSPECIFIED SITE 06/23/2015 RIDINGS, ARELI C SHIPPING INSPECTOR Ot 788.30 UNSPECIFIED URINARY INCONTINENCE 06/23/2015 RIDINGS, ARELI C SHIPPING INSPECTOR Ot 789.00 ABDOMINAL PAIN, UNSPECIFIED SITE 06/23/2015 YAAKOV BUTLER, AURORA P Ot 787.20 DYSPHAGIA, UNSPECIFIED 06/23/2015 MANNY VALDEZ RESIDENT SERVICES DIRECTOR Ot 041.12 METHICILLIN RESISTANT STAPHYLOCOCCUS AUR 06/23/2015 JAQUELIN BUTLER, LIANA Cortes Ot V72.84 EXAM PRE-OPERATIVE NOS 06/23/2015 ARELI FOFANA RESIDENT SERVICES DIRECTOR Ot 729.81 SWELLING OF LIMB 06/23/2015 ARELI FOFANA RESIDENT SERVICES DIRECTOR Ot 782.7 SPONTANEOUS ECCHYMOSES 06/23/2015 YAAKOV BUTLER, AURORA P Ot 789.06 ABDOMINAL PAIN, EPIGASTRIC 06/23/2015 TORIBIO FOFANA DO Ot 789.01 ABDOMINAL PAIN, RIGHT UPPER QUADRANT 06/23/2015 JAGJIT BUTLER, VANESSA Garcia Ot V72.84 EXAM PRE-OPERATIVE NOS 06/23/2015 JAGJIT BUTLER, VANESSA Garcia Ot 564.00 UNSPEC CONSTIPATION 06/23/2015 JAGJIT BUTLER, VANESSA Garcia Ot 709.9 SKIN DISORDER NOS 06/23/2015 JAGJIT BUTLER, VANESSA Garcia Ot V72.84 EXAM PRE-OPERATIVE NOS 06/23/2015 JAGJIT BUTLER, VANESSA Garcia Ot V74.8 SCREEN-BACTERIAL DIS NEC 06/23/2015 TIGIST BUTLER, VALARIE Gongora Ot V72.84 EXAM PRE-OPERATIVE NOS 06/23/2015 ARTIE JORGENSEN MD Ot 724.2 LUMBAGO 06/23/2015 ARTIE JORGENSEN MD Ot 737.30 IDIOPATHIC SCOLIOSIS 06/23/2015 TORIBIO FOFANA DO Ot 599.0 URIN TRACT INFECTION NOS 06/23/2015 TORIBIO FOFANA DO Ot 998.59 OTH POSTOPER INFECTION 06/23/2015 TORIBIO FOFANA DO Ot 564.00 UNSPEC CONSTIPATION 06/23/2015 TORIBIO FOFANA DO Ot V44.3 COLOSTOMY STATUS 06/23/2015 MORAIMA MUÑIZ MD Ot 721.3 LUMBOSACRAL SPONDYLOSIS 06/23/2015 MORAIMA MUÑIZ MD Ot 733.13 PATHOLOGIC FRACTURE, VERTEBRAE 06/23/2015 MORAIMA MUÑIZ MD Ot 737.30 IDIOPATHIC SCOLIOSIS 06/23/2015 MORAIMA MUÑIZ MD Ot 722.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 DISC DEGEN 06/23/2015 MORAIMA MUÑIZ MD Ot 786.50 CHEST PAIN NOS 06/23/2015 AGUS BUTLER FACC, ALI FACP CCDS Ot E78.4 OTHER HYPERLIPIDEMIA 06/23/2015 AGUS BUTLER FACC, ALI FACP CCDS Ot I10 ESSENTIAL (PRIMARY) HYPERTENSION 06/23/2015 AGUS HANLEY, ALI FACP CCDS Ot I25.10 ATHSCL HEART DISEASE OF [place] CORONARY 06/23/2015 AGUS BUTLER FACC, LUIS FACP CCDS Ot R06.02 SHORTNESS OF BREATH 06/23/2015 AGUS BUTLER FACC, ALI FACP CCDS Ot Z93.3 COLOSTOMY STATUS 06/23/2015 ARTIE JORGENSEN MD Ot M54.10 RADICULOPATHY, SITE UNSPECIFIED 06/23/2015 NITO VANESSA MD Ot F17.211 NICOTINE DEPENDENCE, CIGARETTES, IN JAVY 06/23/2015 NITO VANESSA MD Ot G89.29 OTHER CHRONIC PAIN 06/23/2015 NITO VANESSA MD Ot M41.9 SCOLIOSIS, UNSPECIFIED 06/23/2015 NITO VANESSA MD Ot M47.896 OTHER SPONDYLOSIS, LUMBAR REGION 06/23/2015 NITO VANESSA MD Ot M54.5 LOW BACK PAIN 06/23/2015 NITO VANESSA MD Ot M85.88 OTH DISRD OF BONE DENSITY AND STRUCTURE, 06/23/2015 NITO VANESSA MD Ot W01.0XXA FALL SAME LEV FROM SLIP/TRIP W/O STRIKE 06/23/2015 NITO VANESSA MD Ot Y92.[address] 06/23/2015 NITO VANESSA MD Ot Y99.8 OTHER EXTERNAL CAUSE STATUS 06/23/2015 NITO VANESSA MD Ot Z93.3 COLOSTOMY STATUS 06/23/2015 ARTIE JORGENSEN MD Ot Z01.818 ENCOUNTER FOR OTHER PREPROCEDURAL EXAMIN 06/23/2015 ARTIE JORGENSEN MD Ot M54.10 RADICULOPATHY, SITE UNSPECIFIED 06/24/2015 ARTIE JORGENSEN MD Ot M54.10 RADICULOPATHY, SITE UNSPECIFIED 06/25/2015 NITO VANESSA MD Ot E03.9 HYPOTHYROIDISM, UNSPECIFIED 06/25/2015 NITO VANESSA MD Ot F32.9 MAJOR DEPRESSIVE DISORDER, SINGLE EPISOD 06/25/2015 NITO VANESSA MD Ot F41.9 ANXIETY DISORDER, UNSPECIFIED 06/25/2015 NITO VANESSA MD Ot G47.30 SLEEP APNEA, UNSPECIFIED 06/25/2015 NITO VANESSA MD Ot I10 ESSENTIAL (PRIMARY) HYPERTENSION 06/25/2015 NITO VANESSA MD Ot I25.10 ATHSCL HEART DISEASE OF [place] CORONARY 06/25/2015 NITO VANESSA MD Ot J44.9 CHRONIC OBSTRUCTIVE PULMONARY DISEASE, U 06/25/2015 NITO VANESSA MD Ot K21.9 GASTRO-ESOPHAGEAL REFLUX DISEASE WITHOUT 06/25/2015 NITO VANESSA MD Ot M25.511 PAIN IN RIGHT SHOULDER 06/25/2015 NITO VANESSA MD Ot M54.2 CERVICALGIA 06/25/2015 NITO VANESSA MD Ot M80.88XA OTH OSTEOPOR W CURRENT PATH FRACTURE, VE 06/25/2015 NITO VANESSA MD Ot N39.0 URINARY TRACT INFECTION, SITE NOT SPECIF 06/25/2015 NITO VANESSA MD Ot R41.82 ALTERED MENTAL STATUS, UNSPECIFIED 06/25/2015 NITO VANESSA MD Ot R53.1 WEAKNESS 06/25/2015 NITO VANESSA MD Ot S32.008D OTH FRACTURE OF UNSP LUM VERTEBRA, SUBS 06/25/2015 NITO VANESSA MD Ot Z51.81 ENCOUNTER FOR THERAPEUTIC DRUG LEVEL MON 06/25/2015 NITO VANESSA MD Ot Z91.81 HISTORY OF FALLING 06/25/2015 NITO VANESSA MD Ot Z93.3 COLOSTOMY STATUS 06/25/2015 NITO VANESSA MD Ot Z95.5 PRESENCE OF CORONARY ANGIOPLASTY IMPLANT 06/25/2015 YSABEL ABREU DO Ot B37.81 CANDIDAL ESOPHAGITIS 06/25/2015 YSABEL ABREU DO Ot B96.20 [facility] ESCHERICHIA COLI THE CAUSE OF DI 06/25/2015 YSABEL ABREU DO Ot E03.9 HYPOTHYROIDISM, UNSPECIFIED 06/25/2015 YSABEL ABREU DO Ot F32.9 MAJOR DEPRESSIVE DISORDER, SINGLE EPISOD 06/25/2015 YSABEL ABREU DO Ot F41.9 ANXIETY DISORDER, UNSPECIFIED 06/25/2015 YSABEL ABREU DO Ot I25.10 ATHSCL HEART DISEASE OF [place] CORONARY 06/25/2015 YSABEL ABREU DO Ot K22.2 ESOPHAGEAL OBSTRUCTION 06/25/2015 YSABEL ABREU DO Ot M80.08XA 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 06/25/2015 YSABEL ABREU DO Ot N39.0 URINARY TRACT INFECTION, SITE NOT SPECIF 06/25/2015 YSABEL ABREU DO Ot Z11.2 ENCOUNTER FOR SCREENING FOR OTHER BACTER 06/25/2015 YSABEL ABREU DO Ot Z87.891 PERSONAL HISTORY OF NICOTINE DEPENDENCE 07/13/2015 TORIBIO FOFANA DO Ot M19.011 PRIMARY OSTEOARTHRITIS, RIGHT SHOULDER 07/13/2015 TORIBIO FOFANA DO Ot S49.91XA [facility] OF RIGHT SHOULDER AND UPPER 07/13/2015 TORIBIO FOFANA DO Ot W19.XXXA UNSPECIFIED FALL, INITIAL ENCOUNTER 07/13/2015 TORIBIO FOFANA DO Ot Y92.[address] IN [facility] NON-[facility] ( PRIVATE 07/14/2015 TORIBIO FOFANA DO Ot R13.19 OTHER DYSPHAGIA 07/16/2015 TORIBIO FOFANA DO Ot R13.19 OTHER DYSPHAGIA 07/19/2015 YSABEL ABREU DO Ot B37.81 CANDIDAL ESOPHAGITIS 07/19/2015 YSABEL ABREU DO Ot B96.20 UNSP ESCHERICHIA COLI THE CAUSE OF DI 07/19/2015 YSABEL ABREU DO Ot E03.9 HYPOTHYROIDISM, UNSPECIFIED 07/19/2015 YSABEL ABREU DO Ot F32.9 MAJOR DEPRESSIVE DISORDER, SINGLE EPISOD 07/19/2015 YSABEL ABREU DO Ot F41.9 ANXIETY DISORDER, UNSPECIFIED 07/19/2015 [facility] ABREU DOI Ot I25.10 ATHSCL HEART DISEASE OF [place] CORONARY 07/19/2015 YSABEL ABREU DO Ot K22.2 ESOPHAGEAL OBSTRUCTION 07/19/2015 YSABEL ABREU DO Ot M80.08XA 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 07/19/2015 [facility] ABREU DOI Ot N39.0 URINARY TRACT INFECTION, SITE NOT SPECIF 07/19/2015 YSABEL ABREU DO Ot Z11.2 ENCOUNTER FOR SCREENING FOR OTHER BACTER 07/19/2015 [facility] ABREU DOI Ot Z87.891 PERSONAL HISTORY OF NICOTINE DEPENDENCE 07/28/2015 JARRETT BUTLER, ISABELLA Gongora Ot N39.0 URINARY TRACT INFECTION, SITE NOT SPECIF 07/28/2015 JARRETT BUTLER, ISABELLA Gongora Ot R41.0 DISORIENTATION, UNSPECIFIED 07/29/2015 ISABELLA FARIAS MD Ot N39.0 URINARY TRACT INFECTION, SITE NOT SPECIF 07/29/2015 ISABELLA FARIAS MD Ot R41.0 DISORIENTATION, UNSPECIFIED 07/31/2015 YSABEL ABREU DO Ot E03.9 HYPOTHYROIDISM, UNSPECIFIED 07/31/2015 [facility] AB[facility]U DOI Ot G47.30 SLEEP APNEA, UNSPECIFIED 07/31/2015 [facility] AB[facility]U DOI Ot I10 ESSENTIAL (PRIMARY) HYPERTENSION 07/31/2015 [facility] ABREU DOI Ot I25.10 ATHSCL HEART DISEASE OF [place] CORONARY 07/31/2015 YSABEL ABREU DO Ot J44.9 CHRONIC OBSTRUCTIVE PULMONARY DISEASE, U 07/31/2015 YSABEL ABREU DO Ot M62.82 RHABDOMYOLYSIS 07/31/2015 [facility] ABREU DOI Ot N39.0 URINARY TRACT INFECTION, SITE NOT SPECIF 07/31/2015 YSABEL ABREU DO Ot R41.0 DISORIENTATION, UNSPECIFIED 07/31/2015 YSABEL ABREU DO Ot S00.83XA CONTUSION OF OTHER PART OF HEAD, INITIAL 07/31/2015 YSABEL ABREU DO Ot W19.XXXA UNSPECIFIED FALL, INITIAL ENCOUNTER 07/31/2015 YSABEL ABREU DO Ot Y92.[address] IN [facility] NON-[facility] (PRIVATE 07/31/2015 YSABEL ABREU DO Ot Z95.5 PRESENCE OF CORONARY ANGIOPLASTY IMPLANT 08/07/2015 TORIBIO FOFANA DO, Ot M19.011 PRIMARY OSTEOARTHRITIS, RIGHT SHOULDER 08/07/2015 TORIBIO FOFANA DO, Ot S49.91XA UNSP INJURY OF RIGHT SHOULDER AND UPPER 08/07/2015 TORIBIO FOFANA DO, Ot W19.XXXA UNSPECIFIED FALL, INITIAL ENCOUNTER 08/07/2015 TORIBIO FOFANA DO Ot Y92.[address] IN [facility] NON-[facility] ( [facility] 08/12/2015 TORIBIO FOFANA DO Ot R13.19 OTHER DYSPHAGIA 08/12/2015 TORIBIO FOFANA DO, Ot M19.011 PRIMARY OSTEOARTHRITIS, RIGHT SHOULDER 08/12/2015 TORIBIO FOFANA DO, Ot S49.91XA UNSP INJURY OF RIGHT SHOULDER AND UPPER 08/12/2015 TORIBIO FOFANA DO, Ot W19.XXXA UNSPECIFIED FALL, INITIAL ENCOUNTER 08/12/2015 TORIBIO FOFANA DO Ot Y92.[address] IN [facility] NON-[facility] ( [facility] 08/14/2015 TORIBIO FOFANA DO, Ot R13.19 OTHER DYSPHAGIA 08/25/2015 Ot 429.9 08/25/2015 Ot 836.0 08/25/2015 Ot E849.0 08/25/2015 Ot E888.9 08/25/2015 Ot V58.63 08/25/2015 Ot V58.69 08/25/2015 Ot V72.81 08/25/2015 Ot V72.83 08/25/2015 Ot 780.79 08/25/2015 Ot 786.50 08/25/2015 TORIBIO FOFANA DO, Ot M19.011 PRIMARY OSTEOARTHRITIS, RIGHT SHOULDER 08/25/2015 TORIBIO FOFANA DO, Ot S49.91XA UNSP INJURY OF RIGHT SHOULDER AND UPPER 08/25/2015 TORIBIO FOFANA DO Ot W19.XXXA UNSPECIFIED FALL, INITIAL ENCOUNTER 08/25/2015 TORIBIO FOFANA DO Ot Y92.[address] IN [facility] ( PRIVATE 08/25/2015 Ot 610.1 08/25/2015 Ot 611.8 08/25/2015 Ot V76.12 08/25/2015 Ot 715.35 08/25/2015 Ot 786.09 08/25/2015 Ot 959.12 08/25/2015 Ot 959.3 08/25/2015 Ot 959.6 08/25/2015 Ot E888.9 08/25/2015 Ot 414.00 08/25/2015 Ot 780.79 08/25/2015 Ot 786.09 08/25/2015 Ot 414.00 08/25/2015 Ot 780.79 08/25/2015 Ot 786.09 08/25/2015 Ot 562.10 08/25/2015 Ot V72.84 EXAM PRE-OPERATIVE NOS 08/25/2015 RIDINGS, ARELI C SHIPPING INSPECTOR Ot 788.30 UNSPECIFIED URINARY INCONTINENCE 08/25/2015 RIDINGS, ARELI C SHIPPING INSPECTOR Ot 789.00 ABDOMINAL PAIN, UNSPECIFIED SITE 08/25/2015 JAQUELIN BUTLER, LIANA S Ot V72.84 EXAM PRE-OPERATIVE NOS 08/25/2015 JAGJIT BUTLER, VANESSA Garcia Ot V72.84 EXAM PRE-OPERATIVE NOS 08/25/2015 TIGIST BUTLER, VALARIE Gongora Ot V72.84 EXAM PRE-OPERATIVE NOS 08/25/2015 MORAIMA MUÑIZ MD Ot 721.3 LUMBOSACRAL SPONDYLOSIS 08/25/2015 MORAIMA MUÑIZ MD Ot 733.13 PATHOLOGIC FRACTURE, VERTEBRAE 08/25/2015 MORAIMA MUÑIZ MD Ot 737.30 IDIOPATHIC SCOLIOSIS 08/25/2015 TORIBIO FOFANA DO Ot M19.011 PRIMARY OSTEOARTHRITIS, RIGHT SHOULDER 08/25/2015 TORIBIO FOFANA DO Ot S49.91XA UNSP INJURY OF RIGHT SHOULDER AND UPPER 08/25/2015 TORIBIO FOFANA DO Ot W19.XXXA UNSPECIFIED FALL, INITIAL ENCOUNTER 08/25/2015 TORIBIO FOFANA DO Ot Y92.[address] IN [facility] NON-INSTITUT ( PRIVATE 09/25/2015 MORAIMA MUÑIZ MD Ot M51.16 INTERVERTEBRAL DISC DISORDERS W RADICULO 09/25/2015 MORAIMA MUÑIZ MD Ot M53.3 SACROCOCCYGEAL DISORDERS, NOT ELSEWHERE 09/25/2015 MORAIMA MUÑIZ MD Ot M70.61 TROCHANTERIC BURSITIS, RIGHT HIP 09/25/2015 MORAIMA MUÑIZ MD Ot M70.62 TROCHANTERIC BURSITIS, LEFT HIP 10/06/2015 Ot 562.10 DIVERTICULOSIS COLON (W/O MENT OF HEMORR 10/06/2015 Ot 789.00 ABDOMINAL PAIN, UNSPECIFIED SITE 10/06/2015 Ot 805.2 FX DORSAL VERTEBRA-CLOSE 10/06/2015 Ot E000.8 OTHER EXTERNAL CAUSE STATUS 10/06/2015 Ot E884.4 FALL FROM BED 10/06/2015 Ot 424.0 MITRAL VALVE DISORDER 10/06/2015 Ot 429.9 HEART DISEASE NOS 10/06/2015 Ot 786.50 CHEST PAIN NOS 10/06/2015 Ot 786.50 CHEST PAIN NOS 10/06/2015 Ot 530.81 ESOPHAGEAL REFLUX 10/06/2015 Ot 787.02 NAUSEA ALONE 10/06/2015 Ot 789.01 ABDOMINAL PAIN, RIGHT UPPER QUADRANT 10/06/2015 Ot 789.06 ABDOMINAL PAIN, EPIGASTRIC 10/06/2015 Ot 244.9 HYPOTHYROIDISM NOS 10/06/2015 Ot 272.4 HYPERLIPIDEMIA NEC/NOS 10/06/2015 Ot 401.9 HYPERTENSION NOS 10/06/2015 Ot 535.40 OTH SPECIFIED GASTRITIS,W/O MENTION OF H 10/06/2015 Ot 553.3 DIAPHRAGMATIC HERNIA 10/06/2015 Ot 562.10 DIVERTICULOSIS COLON (W/O MENT OF HEMORR 10/06/2015 Ot V12.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 10/06/2015 Ot V58.63 LONG-TERM(CURRENT)USE OF ANTIPLATELET/AN 10/06/2015 Ot V58.69 OTH MED,LT,CURRENT USE 10/06/2015 Ot V72.84 EXAM PRE-OPERATIVE NOS 10/06/2015 Ot 562.10 DIVERTICULOSIS COLON (W/O MENT OF HEMORR 10/06/2015 Ot 789.00 ABDOMINAL PAIN, UNSPECIFIED SITE 10/06/2015 RIDINGS, ARELI C SHIPPING INSPECTOR Ot 788.30 UNSPECIFIED URINARY INCONTINENCE 10/06/2015 RIDINGS, ARELI C SHIPPING INSPECTOR Ot 789.00 ABDOMINAL PAIN, UNSPECIFIED SITE 10/06/2015 RIDARELI SWANSON SHIPPING INSPECTOR Ot 788.30 UNSPECIFIED URINARY INCONTINENCE 10/06/2015 ARELI [place] SHIPPING INSPECTOR Ot 789.00 ABDOMINAL PAIN, UNSPECIFIED SITE 10/06/2015 YAAKOV BUTLER, AURORA P Ot 787.20 DYSPHAGIA, UNSPECIFIED 10/06/2015 JERAMIEMANNY WILL Sharmila RESIDENT SERVICES DIRECTOR Ot 041.12 METHICILLIN RESISTANT STAPHYLOCOCCUS AUR 10/06/2015 JAQUELIN BULTER, LIANA Cortes Ot V72.84 EXAM PRE-OPERATIVE NOS 10/06/2015 ARELI FOFANA RESIDENT SERVICES DIRECTOR Ot 729.81 SWELLING OF LIMB 10/06/2015 ARELI FOFANA RESIDENT SERVICES DIRECTOR Ot 782.7 SPONTANEOUS ECCHYMOSES 10/06/2015 YAAKOV BUTLER, AURORA Tristan Ot 789.06 ABDOMINAL PAIN, EPIGASTRIC 10/06/2015 TORIBIO FOFANA DO Ot 789.01 ABDOMINAL PAIN, RIGHT UPPER QUADRANT 10/06/2015 JAGJIT BUTLER, VANESSA Garcia Ot V72.84 EXAM PRE-OPERATIVE NOS 10/06/2015 JAGJIT BUTLER, VANESSA Garcia Ot 564.00 UNSPEC CONSTIPATION 10/06/2015 JAGJIT BUTLER, VANESSA Garcia Ot 709.9 SKIN DISORDER NOS 10/06/2015 JAGJIT BUTLER, VANESSA Garcia Ot V72.84 EXAM PRE-OPERATIVE NOS 10/06/2015 JAGJIT BUTLER, VANESSA Garcia Ot V74.8 SCREEN-BACTERIAL DIS NEC 10/06/2015 TIGIST BUTLER, VALARIE Gongora Ot V72.84 EXAM PRE-OPERATIVE NOS 10/06/2015 ARTIE JORGENSEN MD Ot 724.2 LUMBAGO 10/06/2015 ARTIE JORGENSEN MD Ot 737.30 IDIOPATHIC SCOLIOSIS 10/06/2015 TORIBIO FOFANA DO Ot 599.0 URIN TRACT INFECTION NOS 10/06/2015 TORIBIO FOFANA DO Ot 998.59 OTH POSTOPER INFECTION 10/06/2015 TORIBIO FOFANA DO Ot 564.00 UNSPEC CONSTIPATION 10/06/2015 TORIBIO FOFANA DO Ot V44.3 COLOSTOMY STATUS 10/06/2015 MORAIMA MUÑIZ MD Ot 721.3 LUMBOSACRAL SPONDYLOSIS 10/06/2015 MORAIMA MUÑIZ MD Ot 733.13 PATHOLOGIC FRACTURE, VERTEBRAE 10/06/2015 MORAIMA MUÑIZ MD Ot 737.30 IDIOPATHIC SCOLIOSIS 10/06/2015 MORAIMA MUÑIZ MD Ot 722.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 DISC DEGEN 10/06/2015 MORAIMA MUÑIZ MD Ot 786.50 CHEST PAIN NOS 10/06/2015 AGUS BUTLER FAC, ALI FACP CCDS Ot E78.4 OTHER HYPERLIPIDEMIA 10/06/2015 AGUS BUTLER FAC, ALI FACP CCDS Ot I10 ESSENTIAL (PRIMARY) HYPERTENSION 10/06/2015 AGUS BUTLER FAC, ALI FACP CCDS Ot I25.10 ATHSCL HEART DISEASE OF [place] CORONARY 10/06/2015 AGUS BUTLER FAC, ALI FACP CCDS Ot R06.02 SHORTNESS OF BREATH 10/06/2015 AGUS BUTLER [facility], ALI FACP CCDS Ot Z93.3 COLOSTOMY STATUS 10/06/2015 ARTIE JORGENESN MD Ot M54.10 RADICULOPATHY, SITE UNSPECIFIED 10/06/2015 NITO VANESSA MD Ot F17.211 NICOTINE DEPENDENCE, CIGARETTES, IN [place] 10/06/2015 NITO VANESSA MD Ot G89.29 OTHER CHRONIC PAIN 10/06/2015 NITO VANESSA MD Ot M41.9 SCOLIOSIS, UNSPECIFIED 10/06/2015 NITO VANESSA MD Ot M47.896 OTHER SPONDYLOSIS, LUMBAR REGION 10/06/2015 NITO VANESSA MD Ot M54.5 LOW BACK PAIN 10/06/2015 NITO VANESSA MD Ot M85.88 OT DISRD OF BONE DENSITY AND STRUCTURE, 10/06/2015 NITO VANESSA MD Ot W01.0XXA FALL SAME LEV FROM SLIP/TRIP W/O STRIKE 10/06/2015 NITO VANESSA MD Ot Y92.[address] 10/06/2015 NITO VANESSA MD Ot Y99.8 OTHER EXTERNAL CAUSE STATUS 10/06/2015 NITO VANESSA MD Ot Z93.3 COLOSTOMY STATUS 10/06/2015 ARTIE JORGENSEN MD Ot Z01.818 ENCOUNTER FOR OTHER PREPROCEDURAL EXAMIN 10/06/2015 ARTIE JORGENSEN MD Ot M54.10 RADICULOPATHY, SITE UNSPECIFIED 10/06/2015 TORIBIO FOFANA DO Ot R13.19 OTHER DYSPHAGIA 10/06/2015 TORIBIO FOFANA DO Ot M19.011 PRIMARY OSTEOARTHRITIS, RIGHT SHOULDER 10/06/2015 TORIBIO FOFANA DO Ot S49.91XA UNSP INJURY OF RIGHT SHOULDER AND UPPER 10/06/2015 TORIBIO FOFANA DO Ot W19.XXXA UNSPECIFIED FALL, INITIAL ENCOUNTER 10/06/2015 TORIBIO FOFANA DO Ot Y92.[address] IN [facility]SP NON-INSTITUT ( PRIVATE 10/08/2015 Ot 562.10 DIVERTICULOSIS COLON (W/O MENT OF HEMORR 10/08/2015 Ot 789.00 ABDOMINAL PAIN, UNSPECIFIED SITE 10/08/2015 Ot 805.2 FX DORSAL VERTEBRA-CLOSE 10/08/2015 Ot E000.8 OTHER EXTERNAL CAUSE STATUS 10/08/2015 Ot E884.4 FALL FROM BED 10/08/2015 Ot 424.0 MITRAL VALVE DISORDER 10/08/2015 Ot 429.9 HEART DISEASE NOS 10/08/2015 Ot 786.50 CHEST PAIN NOS 10/08/2015 Ot 786.50 CHEST PAIN NOS 10/08/2015 Ot 530.81 ESOPHAGEAL REFLUX 10/08/2015 Ot 787.02 NAUSEA ALONE 10/08/2015 Ot 789.01 ABDOMINAL PAIN, RIGHT UPPER QUADRANT 10/08/2015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 03/25/2016 Ot 789.06 ABDOMINAL PAIN, EPIGASTRIC 03/25/2016 Ot 244.9 HYPOTHYROIDISM NOS 03/25/2016 Ot 272.4 HYPERLIPIDEMIA NEC/NOS 03/25/2016 Ot 401.9 HYPERTENSION NOS 03/25/2016 Ot 535.40 OTH SPECIFIED GASTRITIS,W/O MENTION OF H 03/25/2016 Ot 553.3 DIAPHRAGMATIC HERNIA 03/25/2016 Ot 562.10 DIVERTICULOSIS COLON (W/O MENT OF HEMORR 03/25/2016 Ot V12.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 03/25/2016 Ot V58.63 LONG-TERM(CURRENT)USE OF ANTIPLATELET/AN 03/25/2016 Ot V58.69 OTH MED,LT,CURRENT USE 03/25/2016 Ot V72.84 EXAM PRE-OPERATIVE NOS 03/25/2016 Ot 562.10 DIVERTICULOSIS COLON (W/O MENT OF HEMORR 03/25/2016 Ot 789.00 ABDOMINAL PAIN, UNSPECIFIED SITE 03/25/2016 RIDINGS, ARELI C SHIPPING INSPECTOR Ot 788.30 UNSPECIFIED URINARY INCONTINENCE 03/25/2016 RIDINGS, ARELI C SHIPPING INSPECTOR Ot 789.00 ABDOMINAL PAIN, UNSPECIFIED SITE 03/25/2016 RIDINGS, ARELI C SHIPPING INSPECTOR Ot 788.30 UNSPECIFIED URINARY INCONTINENCE 03/25/2016 RIDINGS, ARELI C SHIPPING INSPECTOR Ot 789.00 ABDOMINAL PAIN, UNSPECIFIED SITE 03/25/2016 YAAKOV BUTLER, AURORA P Ot 787.20 DYSPHAGIA, UNSPECIFIED 03/25/2016 MANNY VALDEZ RESIDENT SERVICES DIRECTOR Ot 041.12 METHICILLIN RESISTANT STAPHYLOCOCCUS AUR 03/25/2016 JAQUELIN BUTLER, LIANA Cortes Ot V72.84 EXAM PRE-OPERATIVE NOS 03/25/2016 ARELI FOFANA RESIDENT SERVICES DIRECTOR Ot 729.81 SWELLING OF LIMB 03/25/2016 ARELI FOFANA RESIDENT SERVICES DIRECTOR Ot 782.7 SPONTANEOUS ECCHYMOSES 03/25/2016 YAAKOV BUTLER, AUR[place]A P Ot 789.06 ABDOMINAL PAIN, EPIGASTRIC 03/25/2016 TORIBIO FOFANA DO Ot 789.01 ABDOMINAL PAIN, RIGHT UPPER QUADRANT 03/25/2016 JAGJIT BUTLER, VANESSA Garcia Ot V72.84 EXAM PRE-OPERATIVE NOS 03/25/2016 JAGJIT BUTLER, VANESSA Garcia Ot 564.00 UNSPEC CONSTIPATION 03/25/2016 JAGJIT BUTLER, VANESSA Garcia Ot 709.9 SKIN DISORDER NOS 03/25/2016 JAGJIT BUTLER, VANESSA Garcia Ot V72.84 EXAM PRE-OPERATIVE NOS 03/25/2016 JAGJIT BUTLER, VANESSA Garcia Ot V74.8 SCREEN-BACTERIAL DIS NEC 03/25/2016 TIGIST BUTLER, VALARIE Gongora Ot V72.84 EXAM PRE-OPERATIVE NOS 03/25/2016 ARTIE JORGENSEN MD Ot 724.2 LUMBAGO 03/25/2016 ARTIE JORGENSEN MD Ot 737.30 IDIOPATHIC SCOLIOSIS 03/25/2016 TORIBIO FOFANA DO Ot 599.0 URIN TRACT INFECTION NOS 03/25/2016 TORIBIO OFFANA DO Ot 998.59 OTH POSTOPER INFECTION 03/25/2016 TORIBIO FOFANA DO Ot 564.00 UNSPEC CONSTIPATION 03/25/2016 TORIBIO FOFANA DO Ot V44.3 COLOSTOMY STATUS 03/25/2016 MORAIMA MUÑIZ MD Ot 721.3 LUMBOSACRAL SPONDYLOSIS 03/25/2016 MORAIMA MUÑIZ MD Ot 733.13 PATHOLOGIC FRACTURE, VERTEBRAE 03/25/2016 MORAIMA MUÑIZ MD Ot 737.30 IDIOPATHIC SCOLIOSIS 03/25/2016 MORAIMA MUÑIZ MD Ot 722.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 DISC DEGEN 03/25/2016 MORAIMA MUÑIZ MD Ot 786.50 CHEST PAIN NOS 03/25/2016 AGUS BUTLER FACC, LUIS ELLER CCDS Ot E78.4 OTHER HYPERLIPIDEMIA 03/25/2016 AGUS BUTLER FACC, LUIS HANLEYP CCDS Ot I10 ESSENTIAL (PRIMARY) HYPERTENSION 03/25/2016 LUIS GOLDSMITH MD, FACC, FACP CCDS Ot I25.10 ATHSCL HEART DISEASE OF [place] CORONARY 03/25/2016 LUIS GOLDSMITH MD, FACCP CCDS Ot R06.02 SHORTNESS OF BREATH 03/25/2016 LUIS GOLDSMITH MD, FACCP CCDS Ot Z93.3 COLOSTOMY STATUS 03/25/2016 ARTIE JORGENSEN MD Ot M54.10 RADICULOPATHY, SITE UNSPECIFIED 03/25/2016 NITO VANESSA MD Ot F17.211 NICOTINE DEPENDENCE, CIGARETTES, IN JAVY 03/25/2016 NITO VANESSA MD Ot G89.29 OTHER CHRONIC PAIN 03/25/2016 NITO VANESSA MD Ot M41.9 SCOLIOSIS, UNSPECIFIED 03/25/2016 NITO VANESSA MD Ot M47.896 OTHER SPONDYLOSIS, LUMBAR REGION 03/25/2016 NITO VANESSA MD Ot M54.5 LOW BACK PAIN 03/25/2016 NITO VANESSA MD Ot M85.88 OT DISRD OF BONE DENSITY AND STRUCTURE, 03/25/2016 NITO VANESSA MD Ot W01.0XXA FALL SAME LEV FROM SLIP/TRIP W/O STRIKE 03/25/2016 NITO VANESSA MD Ot Y92.[address] 03/25/2016 NITO VANESSA MD Ot Y99.8 OTHER EXTERNAL CAUSE STATUS 03/25/2016 NITO VANESSA MD Ot Z93.3 COLOSTOMY STATUS 03/25/2016 ARTIE JORGENSEN MD Ot Z01.818 ENCOUNTER FOR OTHER PREPROCEDURAL EXAMIN 03/25/2016 ARTIE JORGENSEN MD Ot M54.10 RADICULOPATHY, SITE UNSPECIFIED 03/25/2016 TORIBIO FOFANA DO Ot R13.19 OTHER DYSPHAGIA 03/25/2016 TORIBIO FOFANA DO Ot M19.011 PRIMARY OSTEOARTHRITIS, RIGHT SHOULDER 03/25/2016 TORIBIO FOFANA DO Ot S49.91XA UNSP INJURY OF RIGHT SHOULDER AND UPPER 03/25/2016 TORIBIO FOFANA DO Ot W19.XXXA UNSPECIFIED FALL, INITIAL ENCOUNTER 03/25/2016 TORIBIO FOFANA DO Ot Y92.[address] IN [facility] NON[facility] ( PRIVATE 03/25/2016 TORIBIO FOFANA DO Ot M54.5 LOW BACK PAIN 03/25/2016 TORIBIO FOFANA DO Ot M81.0 AGE-RELATED OSTEOPOROSIS W/O CURRENT PAT 03/25/2016 MANNY VALDEZ Ot E78.4 OTHER HYPERLIPIDEMIA 03/25/2016 BAIMANNY WILL RESIDENT SERVICES DIRECTOR Ot G47.30 SLEEP APNEA, UNSPECIFIED 03/25/2016 JERAMIEMANNY WILL RESIDENT SERVICES DIRECTOR Ot I10 ESSENTIAL (PRIMARY) HYPERTENSION 03/25/2016 MANNY VALDEZ RESIDENT SERVICES DIRECTOR Ot I25.10 ATHSCL HEART DISEASE OF [place] CORONARY 03/25/2016 MANNY VALDEZ RESIDENT SERVICES DIRECTOR Ot I73.9 PERIPHERAL VASCULAR DISEASE, UNSPECIFIED 03/25/2016 ARELI FOFANA RESIDENT SERVICES DIRECTOR Ot R10.84 GENERALIZED ABDOMINAL PAIN 03/25/2016 FOFANAARELI MOJICA RESIDENT SERVICES DIRECTOR Ot Z90.49 ACQUIRED ABSENCE OF OTHER SPECIFIED PART 03/25/2016 FOFANA, ARELI Sharmila RESIDENT SERVICES DIRECTOR Ot Z93.3 COLOSTOMY STATUS 03/25/2016 MANNY VALDEZ RESIDENT SERVICES DIRECTOR Ot E78.4 OTHER HYPERLIPIDEMIA 03/25/2016 MANNY VALDEZ RESIDENT SERVICES DIRECTOR Ot I10 ESSENTIAL (PRIMARY) HYPERTENSION 03/25/2016 JERAMIEMANNY WILL RESIDENT SERVICES DIRECTOR Ot I25.10 ATHSCL HEART DISEASE OF [place] CORONARY 03/25/2016 ALFREDO JOSÉ APRN Ot E03.9 HYPOTHYROIDISM, UNSPECIFIED 03/25/2016 ALFREDO JOSÉ APRN Ot G89.29 OTHER CHRONIC PAIN 03/25/2016 ALFREDO JOSÉ APRN Ot I10 ESSENTIAL (PRIMARY) HYPERTENSION 03/25/2016 ALFREDO JOSÉ APRN Ot I25.10 ATHSCL HEART DISEASE OF [place] CORONARY 03/25/2016 ALFREDO JOSÉ APRN Ot 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 AB 03/25/2016 ALFREDO JOSÉ APRN Ot M47.816 SPONDYLOSIS W/O MYELOPATHY OR RADICULOPA 03/25/2016 ALFREDO JOSÉ APRN Ot N39.0 URINARY TRACT INFECTION, SITE NOT SPECIF 03/25/2016 ALFREDO JOSÉ APRN Ot R51 HEADACHE 03/25/2016 ALFREDO JOSÉ APRN Ot R93.7 ABNORMAL FINDINGS ON DIAGNOSTIC IMAGING 03/25/2016 ALFREDO JOSÉ APRN Ot T88.59XA OTHER COMPLICATIONS OF ANESTHESIA, INITI 03/25/2016 ALFREDO JOSÉ APRN Ot Z79.82 RN CASE MANAGEMENT (CURRENT) USE OF ASPIRIN 03/25/2016 ALFREDO JOSÉ APRN Ot Z79.899 OTHER RN CASE MANAGEMENT (CURRENT) DRUG THERAPY 03/25/2016 ALFREDO JOSÉ APRN Ot Z95.5 PRESENCE OF CORONARY ANGIOPLASTY IMPLANT 03/30/2016 MORAIAM MUÑIZ MD Ot M51.16 INTERVERTEBRAL DISC DISORDERS W RADICULO 03/30/2016 MORAIMA MUÑIZ MD Ot M53.3 SACROCOCCYGEAL DISORDERS, NOT ELSEWHERE 03/30/2016 MORAIMA MUÑIZ MD Ot Z79.899 OTHER RN CASE MANAGEMENT (CURRENT) DRUG THERAPY 03/30/2016 NITO VANESSA MD Ot D62 ACUTE POSTHEMORRHAGIC ANEMIA 03/30/2016 NITO VANESSA MD Ot E03.9 HYPOTHYROIDISM, UNSPECIFIED 03/30/2016 NITO VANESSA MD Ot F32.9 MAJOR DEPRESSIVE DISORDER, SINGLE EPISOD 03/30/2016 NITO VANESSA MD Ot F41.9 ANXIETY DISORDER, UNSPECIFIED 03/30/2016 NITO VANESSA MD Ot G47.00 INSOMNIA, UNSPECIFIED 03/30/2016 NITO VANESSA MD Ot G47.30 SLEEP APNEA, UNSPECIFIED 03/30/2016 NITO VANESSA MD Ot I10 ESSENTIAL (PRIMARY) HYPERTENSION 03/30/2016 NITO VANESSA MD Ot I25.10 ATHSCL HEART DISEASE OF [place] CORONARY 03/30/2016 NITO VANESSA MD Ot J44.9 CHRONIC OBSTRUCTIVE PULMONARY DISEASE, U 03/30/2016 NITO VANESSA MD Ot J45.909 UNSPECIFIED ASTHMA, UNCOMPLICATED 03/30/2016 NITO VANESSA MD Ot K21.9 GASTRO-ESOPHAGEAL REFLUX DISEASE WITHOUT 03/30/2016 NITO VANESSA MD Ot K43.5 PARASTOMAL HERNIA WITHOUT OBSTRUCTION OR 03/30/2016 NITO VANESSA MD Ot M19.91 PRIMARY OSTEOARTHRITIS, UNSPECIFIED SITE 03/30/2016 NITO VANESSA MD Ot M54.9 DORSALGIA, UNSPECIFIED 03/30/2016 NITO VANESSA MD Ot M80.051A 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 03/30/2016 NITO VANESSA MD Ot R13.10 DYSPHAGIA, UNSPECIFIED 03/30/2016 NITO VANESSA MD Ot R42 DIZZINESS AND GIDDINESS 03/30/2016 NITO VANESSA MD Ot R55 SYNCOPE AND COLLAPSE 03/30/2016 NITO VANESSA MD Ot Z23 ENCOUNTER FOR IMMUNIZATION 03/30/2016 NITO VANESSA MD Ot Z86.718 PERSONAL HISTORY OF OTHER VENOUS THROMBO 03/30/2016 NITO VANESSA MD Ot Z87.891 PERSONAL HISTORY OF NICOTINE DEPENDENCE 03/30/2016 NITO VANESSA MD Ot Z91.81 HISTORY OF FALLING 03/30/2016 NITO VANESSA MD Ot Z93.3 COLOSTOMY STATUS 03/30/2016 NITO VANESSA MD Ot Z95.5 PRESENCE OF CORONARY ANGIOPLASTY IMPLANT 04/05/2016 LEXUS CHOWDHURY MD E Ot D62 ACUTE POSTHEMORRHAGIC ANEMIA 04/05/2016 LEXUS CHOWDHURY MD E Ot E03.9 HYPOTHYROIDISM, UNSPECIFIED 04/05/2016 LEXUS CHOWDHURY MD E Ot F06.8 OTH MENTAL DISORDERS DUE TO KNOWN PHYSIO 04/05/2016 LEXUS CHOWDHURY MD E Ot F32.9 MAJOR DEPRESSIVE DISORDER, SINGLE EPISOD 04/05/2016 LEXUS CHOWDHURY MD E Ot F41.9 ANXIETY DISORDER, UNSPECIFIED 04/05/2016 LEXUS CHOWDHURY MD E Ot G47.00 INSOMNIA, UNSPECIFIED 04/05/2016 LEXUS CHOWDHURY MD E Ot I10 ESSENTIAL (PRIMARY) HYPERTENSION 04/05/2016 LEXUS CHOWDHURY MD E Ot I25.10 ATHSCL HEART DISEASE OF [place] CORONARY 04/05/2016 LEXUS CHOWDHURY MD E Ot J44.9 CHRONIC OBSTRUCTIVE PULMONARY DISEASE, U 04/05/2016 LEXUS CHOWDHURY MD E Ot K21.9 GASTRO-ESOPHAGEAL REFLUX DISEASE WITHOUT 04/05/2016 LEXUS CHOWDHURY MD E Ot K22.2 ESOPHAGEAL OBSTRUCTION 04/05/2016 LEXUS CHOWDHURY MD E Ot K59.00 CONSTIPATION, UNSPECIFIED 04/05/2016 LEXUS CHOWDHURY MD E Ot M54.9 DORSALGIA, UNSPECIFIED 04/05/2016 LEXUS CHOWDHURY MD E Ot R13.10 DYSPHAGIA, UNSPECIFIED 04/05/2016 LEXUS CHOWDHURY MD E Ot S72.141D DISPL INTERTROCH FX R FEMUR, SUBS FOR CL 04/05/2016 LEXUS CHOWDHURY MD E Ot Z86.718 PERSONAL HISTORY OF OTHER VENOUS THROMBO 04/05/2016 LEXUS CHOWDHURY MD E Ot Z87.891 PERSONAL HISTORY OF NICOTINE DEPENDENCE 04/05/2016 LEXUS CHOWDHURY MD E Ot Z93.3 COLOSTOMY STATUS 04/05/2016 LEXUS CHOWDHURY MD Ot Z95.5 PRESENCE OF CORONARY ANGIOPLASTY IMPLANT 04/06/2016 LEXUS CHOWDHURY MD E Ot D62 ACUTE POSTHEMORRHAGIC ANEMIA 04/06/2016 LEXUS CHOWDHURY MD Ot E03.9 HYPOTHYROIDISM, UNSPECIFIED 04/06/2016 LEXUS CHOWDHURY MD E Ot F06.8 OTH MENTAL DISORDERS DUE TO KNOWN PHYSIO 04/06/2016 LEXUS CHOWDHURY MD E Ot F32.9 MAJOR DEPRESSIVE DISORDER, SINGLE EPISOD 04/06/2016 LEXUS CHOWDHURY MD E Ot F41.9 ANXIETY DISORDER, UNSPECIFIED 04/06/2016 LEXUS CHOWDHURY MD E Ot G47.00 INSOMNIA, UNSPECIFIED 04/06/2016 LEXUS CHOWDHURY MD E Ot I10 ESSENTIAL (PRIMARY) HYPERTENSION 04/06/2016 LEXUS CHOWDHURY MD E Ot I25.10 ATHSCL HEART DISEASE OF [place] CORONARY 04/06/2016 LEXUS CHOWDHURY MD E Ot J44.9 CHRONIC OBSTRUCTIVE PULMONARY DISEASE, U 04/06/2016 LEXUS CHOWDHURY MD E Ot K21.9 GASTRO-ESOPHAGEAL REFLUX DISEASE WITHOUT 04/06/2016 LEXUS CHOWDHURY MD E Ot K22.2 ESOPHAGEAL OBSTRUCTION 04/06/2016 LEXUS CHOWDHURY MD E Ot K59.00 CONSTIPATION, UNSPECIFIED 04/06/2016 LEXUS CHOWDHURY MD E Ot M54.9 DORSALGIA, UNSPECIFIED 04/06/2016 LEXUS CHOWDHURY MD E Ot R13.10 DYSPHAGIA, UNSPECIFIED 04/06/2016 LEXUS CHOWDHURY MD E Ot S72.141D DISPL INTERTROCH FX R FEMUR, SUBS FOR CL 04/06/2016 LEXUS CHOWDHURY MD E Ot Z86.718 PERSONAL HISTORY OF OTHER VENOUS THROMBO 04/06/2016 LEXUS CHOWDHURY MD E Ot Z87.891 PERSONAL HISTORY OF NICOTINE DEPENDENCE 04/06/2016 LEXUS CHOWDHURY MD Ot Z93.3 COLOSTOMY STATUS 04/06/2016 LEXUS CHOWDHURY MD E Ot Z95.5 PRESENCE OF CORONARY ANGIOPLASTY IMPLANT 04/06/2016 LEXUS CHOWDHURY MD E Ot D62 ACUTE POSTHEMORRHAGIC ANEMIA 04/06/2016 LEXUS CHOWDHURY MD E Ot E03.9 HYPOTHYROIDISM, UNSPECIFIED 04/06/2016 CHOWDHURY MD, LEXUS E Ot F06.8 OTH MENTAL DISORDERS DUE TO KNOWN PHYSIO 04/06/2016 CHAD CHOWDHURY MDIC E Ot F32.9 MAJOR DEPRESSIVE DISORDER, SINGLE EPISOD 04/06/2016 CHAD CHOWDHURY MDIC E Ot F41.9 ANXIETY DISORDER, UNSPECIFIED 04/06/2016 TRENTON BUTLER LEXUS E Ot G47.00 INSOMNIA, UNSPECIFIED 04/06/2016 TRENTON BUTLER LEXUS E Ot I10 ESSENTIAL (PRIMARY) HYPERTENSION 04/06/2016 TRENTON BUTLER LEXUS E Ot I25.10 ATHSCL HEART DISEASE OF [place] CORONARY 04/06/2016 CHAD CHOWDHURY MDIC E Ot J44.9 CHRONIC OBSTRUCTIVE PULMONARY DISEASE, U 04/06/2016 CHAD CHOWDHURY MDIC E Ot K21.9 GASTRO-ESOPHAGEAL REFLUX DISEASE WITHOUT 04/06/2016 CHAD CHOWDHURY MDIC E Ot K22.2 ESOPHAGEAL OBSTRUCTION 04/06/2016 TRENTON BUTLER LEXUS E Ot K59.00 CONSTIPATION, UNSPECIFIED 04/06/2016 CHAD CHOWDHURY MDIC E Ot M54.9 DORSALGIA, UNSPECIFIED 04/06/2016 TRENTON BUTLER LEXUS E Ot R13.10 DYSPHAGIA, UNSPECIFIED 04/06/2016 TRENTON BUTLER LEXUS E Ot S72.141D DISPL INTERTROCH FX R FEMUR, SUBS FOR CL 04/06/2016 TRENTON BUTLER LEXUS E Ot Z86.718 PERSONAL HISTORY OF OTHER VENOUS THROMBO 04/06/2016 CHAD CHOWDHURY MDIC E Ot Z87.891 PERSONAL HISTORY OF NICOTINE DEPENDENCE 04/06/2016 CHAD CHOWDHURY MDIC E Ot Z93.3 COLOSTOMY STATUS 04/06/2016 TRENTON BUTLER LEXUS E Ot Z95.5 PRESENCE OF CORONARY ANGIOPLASTY IMPLANT 04/18/2016 ALFREDO JOSÉ APRN Ot E03.9 HYPOTHYROIDISM, UNSPECIFIED 04/18/2016 ALFREDO JOSÉ SHIPPING INSPECTOR Ot G89.29 OTHER CHRONIC PAIN 04/18/2016 ALFREDO JOSÉ APRN Ot I10 ESSENTIAL (PRIMARY) HYPERTENSION 04/18/2016 ALFREDO JOSÉ APRN Ot I25.10 ATHSCL HEART DISEASE OF [place] CORONARY 04/18/2016 ALFREDO JOSÉ APRN Ot 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 AB 04/18/2016 ALFREDO JOSÉ APRN Ot M47.816 SPONDYLOSIS W/O MYELOPATHY OR RADICULOPA 04/18/2016 ALFREDO JOSÉ APRN Ot N39.0 URINARY TRACT INFECTION, SITE NOT SPECIF 04/18/2016 ALFREDO JOSÉ APRN Ot R51 HEADACHE 04/18/2016 ALFREDO JOSÉ APRN Ot R93.7 ABNORMAL FINDINGS ON DIAGNOSTIC IMAGING 04/18/2016 ALFREDO JOSÉ APRN Ot T88.59XA OTHER COMPLICATIONS OF ANESTHESIA, INITI 04/18/2016 ALFREDO JOSÉ APRN Ot Z79.82 ALF (CURRENT) USE OF ASPIRIN 04/18/2016 ALFREDO JOSÉ APRN Ot Z79.899 OTHER ALF (CURRENT) DRUG THERAPY 04/18/2016 ALFREDO JOSÉ APRN Ot Z95.5 PRESENCE OF CORONARY ANGIOPLASTY IMPLANT 05/09/2016 TORIBIO FOFANA DO, Ot Z51.81 ENCOUNTER FOR THERAPEUTIC DRUG LEVEL MON 05/09/2016 TORIBIO FOFANA DO, Ot Z79.899 OTHER ALF (CURRENT) DRUG THERAPY 05/09/2016 TORIBIO FOFANA DO, Ot Z51.81 ENCOUNTER FOR THERAPEUTIC DRUG LEVEL MON 05/09/2016 TORIBIO FOFANA DO, Ot Z79.899 OTHER RN CASE MANAGEMENT (CURRENT) DRUG THERAPY 05/19/2016 TORIBIO FOFANA DO, Ot N39.0 URINARY TRACT INFECTION, SITE NOT SPECIF 05/30/2016 TORIBIO FOFANA DO, Ot Z51.81 ENCOUNTER FOR THERAPEUTIC DRUG LEVEL MON 05/30/2016 TORIBIO FOFANA DO, Ot Z79.899 OTHER ALF (CURRENT) DRUG THERAPY 06/03/2016 TORIBIO FOFANA DO, Ot Z51.81 ENCOUNTER FOR THERAPEUTIC DRUG LEVEL MON 06/03/2016 TORIBIO FOFANA DO, Ot Z79.899 OTHER RN CASE MANAGEMENT (CURRENT) DRUG THERAPY 06/04/2016 ASHLEY WATTS MD Ot I10 ESSENTIAL (PRIMARY) HYPERTENSION 06/04/2016 ASHLEY WATTS MD Ot I25.10 ATHSCL HEART DISEASE OF [place] CORONARY 06/04/2016 ASHLEY WATTS MD Ot M25.552 PAIN IN LEFT HIP 06/04/2016 ASHLEY WATTS MD Ot M25.562 PAIN IN LEFT KNEE 06/04/2016 ASHLEY WATTS MD Ot R41.82 ALTERED MENTAL STATUS, UNSPECIFIED 06/04/2016 STEFANIE MD, ASHLEY J Ot S22.080A WEDGE COMPRESSION FRACTURE OF T11-T12 VE 06/04/2016 ASHLEY WATTS MD Ot W06.XXXA FALL FROM BED, INITIAL ENCOUNTER 06/04/2016 ASHLEY WATTS MD Ot Y92.[address] 06/04/2016 ASHLEY WATTS MD Ot Y93.84 ACTIVITY, SLEEPING 06/04/2016 ASHLEY WATTS MD Ot Y99.8 OTHER EXTERNAL CAUSE STATUS 06/04/2016 ASHLEY WATTS MD Ot Z93.3 COLOSTOMY STATUS 06/04/2016 ASHLEY WATTS MD Ot Z95.5 PRESENCE OF CORONARY ANGIOPLASTY IMPLANT 06/09/2016 TORIBIO FOFANA DO Ot N39.0 URINARY TRACT INFECTION, SITE NOT SPECIF 06/11/2016 ASHLEY WATTS MD Ot I10 ESSENTIAL (PRIMARY) HYPERTENSION 06/11/2016 ASHLEY WATTS MD Ot I25.10 ATHSCL HEART DISEASE OF [place] CORONARY 06/11/2016 ASHLEY WATTS MD Ot M25.552 PAIN IN LEFT HIP 06/11/2016 ASHLEY WATTS MD Ot M25.562 PAIN IN LEFT KNEE 06/11/2016 ASHLEY WATTS MD Ot R41.82 ALTERED MENTAL STATUS, UNSPECIFIED 06/11/2016 ASHLEY WATTS MD Ot S22.080A WEDGE COMPRESSION FRACTURE OF T11-T12 VE 06/11/2016 ASHLEY WATTS MD Ot W06.XXXA FALL FROM BED, INITIAL ENCOUNTER 06/11/2016 ASHLEY WATTS MD Ot Y92.[address] 06/11/2016 ASHLEY WATTS MD Ot Y93.84 ACTIVITY, SLEEPING 06/11/2016 ASHLEY WATTS MD Ot Y99.8 OTHER EXTERNAL CAUSE STATUS 06/11/2016 ASHLEY WATTS MD Ot Z93.3 COLOSTOMY STATUS 06/11/2016 ASHLEY WATTS MD Ot Z95.5 PRESENCE OF CORONARY ANGIOPLASTY IMPLANT 06/12/2016 ASHLEY WATTS MD Ot I10 ESSENTIAL (PRIMARY) HYPERTENSION 06/12/2016 ASHLEY WATTS MD Ot I25.10 ATHSCL HEART DISEASE OF [place] CORONARY 06/12/2016 ASHLEY WATTS MD Ot M25.552 PAIN IN LEFT HIP 06/12/2016 ASHLEY WATTS MD Ot M25.562 PAIN IN LEFT KNEE 06/12/2016 ASHLEY WATTS MD Ot R41.82 ALTERED MENTAL STATUS, UNSPECIFIED 06/12/2016 ASHLEY WATTS MD Ot S22.080A WEDGE COMPRESSION FRACTURE OF T11-T12 VE 06/12/2016 ASHLEY WATTS MD Ot W06.XXXA FALL FROM BED, INITIAL ENCOUNTER 06/12/2016 ASHLEY WATTS MD Ot Y92.[address] 06/12/2016 ASHLEY WATTS MD Ot Y93.84 ACTIVITY, SLEEPING 06/12/2016 ASHLEY WATTS MD, Ot Y99.8 OTHER EXTERNAL CAUSE STATUS 06/12/2016 ASHLEY WATTS MD Ot Z93.3 COLOSTOMY STATUS 06/12/2016 ASHLEY WATTS MD Ot Z95.5 PRESENCE OF CORONARY ANGIOPLASTY IMPLANT 06/18/2016 TORIBIO FOFANA DO Ot N39.0 URINARY TRACT INFECTION, SITE NOT SPECIF 06/20/2016 ALFREDO JOSÉ APRN Ot E03.9 HYPOTHYROIDISM, UNSPECIFIED 06/20/2016 ALFREDO JOSÉ APRN Ot G89.29 OTHER CHRONIC PAIN 06/20/2016 ALFREDO JOSÉ APRN Ot I10 ESSENTIAL (PRIMARY) HYPERTENSION 06/20/2016 ALFREDO JOSÉ APRN Ot I25.10 ATHSCL HEART DISEASE OF [place] CORONARY 06/20/2016 ALFREDO JOSÉ APRN Ot 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 AB 06/20/2016 ALFREDO JOSÉ APRN Ot M47.816 SPONDYLOSIS W/O MYELOPATHY OR RADICULOPA 06/20/2016 ALFREDO JOSÉ APRN Ot N39.0 URINARY TRACT INFECTION, SITE NOT SPECIF 06/20/2016 ALFREDO JOSÉ APRN Ot R51 HEADACHE 06/20/2016 ALFREDO JOSÉ APRN Ot R93.7 ABNORMAL FINDINGS ON DIAGNOSTIC IMAGING 06/20/2016 ALFREDO JOSÉ APRN Ot T88.59XA OTHER COMPLICATIONS OF ANESTHESIA, INITI 06/20/2016 ALFREDO JOSÉ APRN Ot Z79.82 RN CASE MANAGEMENT (CURRENT) USE OF ASPIRIN 06/20/2016 ALFREDO JOSÉ APRN Ot Z79.899 OTHER RN CASE MANAGEMENT (CURRENT) DRUG THERAPY 06/20/2016 ALFREDO JOSÉ APRN Ot Z95.5 PRESENCE OF CORONARY ANGIOPLASTY IMPLANT 06/28/2016 BRIGIDO GUZMANTORIBIO Ot R05 COUGH 07/07/2016 FOFANA DOTORIBIO Ot R05 COUGH 07/21/2016 ALFREDO JOSÉ APRN Ot E03.9 HYPOTHYROIDISM, UNSPECIFIED 07/21/2016 ALFREDO JOSÉ APRN Ot G89.29 OTHER CHRONIC PAIN 07/21/2016 ALFREDO JOSÉ APRN Ot I10 ESSENTIAL (PRIMARY) HYPERTENSION 07/21/2016 ALFREDO JOSÉ APRN Ot I25.10 ATHSCL HEART DISEASE OF [place] CORONARY 07/21/2016 ALFREDO OJSÉ APRN Ot 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 AB 07/21/2016 ALFREDO JOSÉ APRN Ot M47.816 SPONDYLOSIS W/O MYELOPATHY OR RADICULOPA 07/21/2016 ALFREDO JOSÉ APRN Ot N39.0 URINARY TRACT INFECTION, SITE NOT SPECIF 07/21/2016 ALFREDO JOSÉ APRN Ot R51 HEADACHE 07/21/2016 ALFREDO JOSÉ APRN Ot R93.7 ABNORMAL FINDINGS ON DIAGNOSTIC IMAGING 07/21/2016 ALFREDO JOSÉ APRN Ot T88.59XA OTHER COMPLICATIONS OF ANESTHESIA, INITI 07/21/2016 ALFREDO JOSÉ APRN Ot Z79.82 ALF (CURRENT) USE OF ASPIRIN 07/21/2016 ALFREDO JOSÉ APRN Ot Z79.899 OTHER RN CASE MANAGEMENT (CURRENT) DRUG THERAPY 07/21/2016 ALFREDO JOSÉ APRN Ot Z95.5 PRESENCE OF CORONARY ANGIOPLASTY IMPLANT 07/25/2016 NI GUTIERREZ Ot I10 ESSENTIAL (PRIMARY) HYPERTENSION 07/25/2016 NI GUTIERREZ Ot I25.10 ATHSCL HEART DISEASE OF [place] CORONARY 07/25/2016 NI GUTIERREZ Ot M25.552 PAIN IN LEFT HIP 07/25/2016 NI GUTIERREZ Ot Z79.82 RN CASE MANAGEMENT (CURRENT) USE OF ASPIRIN 07/25/2016 NI GUTIERREZ Ot Z87.891 PERSONAL HISTORY OF NICOTINE DEPENDENCE 07/25/2016 NI GUTIERREZ Ot Z95.5 PRESENCE OF CORONARY ANGIOPLASTY IMPLANT 07/28/2016 NI GUTIERREZ Ot I10 ESSENTIAL (PRIMARY) HYPERTENSION 07/28/2016 NI GUTIERREZ Ot I25.10 ATHSCL HEART DISEASE OF [place] CORONARY 07/28/2016 NI GUTIERREZ Ot M25.552 PAIN IN LEFT HIP 07/28/2016 NI GUTIERREZ Ot Z79.82 RN CASE MANAGEMENT (CURRENT) USE OF ASPIRIN 07/28/2016 NI GUTIERREZ Ot Z87.891 PERSONAL HISTORY OF NICOTINE DEPENDENCE 07/28/2016 NI GUTIERREZ Ot Z95.5 PRESENCE OF CORONARY ANGIOPLASTY IMPLANT 08/20/2016 ALFREDO JOSÉ APRN Ot E03.9 HYPOTHYROIDISM, UNSPECIFIED 08/20/2016 ALFREDO JOSÉ APRN Ot G89.29 OTHER CHRONIC PAIN 08/20/2016 ALFREDO JOSÉ APRN Ot I10 ESSENTIAL (PRIMARY) HYPERTENSION 08/20/2016 ALFREDO JOSÉ APRN Ot I25.10 ATHSCL HEART DISEASE OF [place] CORONARY 08/20/2016 ALFREDO JOSÉ APRN Ot 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 AB 08/20/2016 ALFREDO JOSÉ APRN Ot M47.816 SPONDYLOSIS W/O MYELOPATHY OR RADICULOPA 08/20/2016 ALFREDO JOSÉ APRN Ot N39.0 URINARY TRACT INFECTION, SITE NOT SPECIF 08/20/2016 ALFREDO JOSÉ APRN Ot R51 HEADACHE 08/20/2016 ALFREDO JOSÉ APRN Ot R93.7 ABNORMAL FINDINGS ON DIAGNOSTIC IMAGING 08/20/2016 ALFREDO JOSÉ APRN Ot T88.59XA OTHER COMPLICATIONS OF ANESTHESIA, INITI 08/20/2016 ALFREDO JOSÉ APRN Ot Z79.82 ALF (CURRENT) USE OF ASPIRIN 08/20/2016 ALFREDO JOSÉ APRN Ot Z79.899 OTHER RN CASE MANAGEMENT (CURRENT) DRUG THERAPY 08/20/2016 ALFREDO JOSÉ APRN Ot Z95.5 PRESENCE OF CORONARY ANGIOPLASTY IMPLANT Procedures Code Description Performed By Performed On 00.40 07/10/2006 00.66 07/10/2006 37.22 07/10/2006 88.53 07/10/2006 88.56 07/10/2006 99.19 07/10/2006 99.20 07/10/2006 45.16 10/31/2007 37.22 LEFT HEART CARDIAC CATH 09/10/2012 88.42 CONTRAST AORTOGRAM 09/10/2012 88.53 LT HEART ANGIOCARDIOGRAM 09/10/2012 88.56 CORONAR ARTERIOGR-2 CATH 09/10/2012 45.76 OPEN AND OTHER SIGMOIDECTOMY 01/27/2014 99.15 PARENTERAL INFUSION OF CONCENTRATED NUT. 02/01/2014 99.15 PARENTERAL INFUSION OF CONCENTRATED NUT. 02/05/2014 [id number] INTRODUCTION OF ANTI-INFLAMMATORY INTO J 12/24/2014 [id number] REPOSITION R UP FEMUR WITH INTRAMED FIX, 03/26/2016 Results Test Result Range Complete blood count (CBC) with automated white blood cell (WBC) differential - 03/25/16 14:10 Blood leukocytes automated count (number/volume) 13.0 10*3/ uL 4.3-11.0 Blood erythrocytes automated count (number/volume) 5.12 10*6 /uL 4.35-5.85 Venous blood hemoglobin measurement (mass/volume) 13.6 g/dL 11.5-16.0 Blood hematocrit (volume fraction) 41 % 35-52 Automated erythrocyte mean corpuscular volume 81 [foz_us] 80-99 Automated erythrocyte mean corpuscular hemoglobin (mass per erythrocyte) 27 pg 25-34 Automated erythrocyte mean corpuscular hemoglobin concentration measurement ( mass/volume) 33 g/dL 32-36 Automated erythrocyte distribution width ratio 16.6 % 10.0-14.5 Automated blood platelet count (count/volume) 347 10*3/uL 130-400 Automated blood platelet mean volume measurement 10.2 [foz_ us] 7.4-10.4 Automated blood neutrophils/100 leukocytes 85 % 42-75 Automated blood lymphocytes/100 leukocytes 12 % 12-44 Blood monocytes/100 leukocytes 3 % 0-12 Automated blood eosinophils/100 leukocytes 0 % 0-10 Automated blood basophils/100 leukocytes 1 % 0-10 Blood neutrophils automated count (number/volume) 11.1 10*3 1.8-7.8 Blood lymphocytes automated count (number/volume) 1.5 10*3 1.0-4.0 Blood monocytes automated count (number/volume) 0.4 10*3 0.0-1.0 Automated eosinophil count 0.0 10*3/uL 0.0-0.3 Automated blood basophil count (count/volume) 0.1 10*3/uL 0.0-0.1 Whole blood basic metabolic panel - 03/25/16 14:10 Serum or plasma sodium measurement (moles/volume) 136 mmol/ L 135-145 Serum or plasma potassium measurement (moles/volume) 4.1 mmol/L 3.6-5.0 Serum or plasma chloride measurement (moles/volume) 103 mmol /L 98-107 Carbon dioxide 22 mmol/L 21-32 Serum or plasma anion gap determination (moles/volume) 11 mmol/L 5-14 Serum or plasma urea nitrogen measurement (mass/volume) 16 mg/dL 7-18 Serum or plasma creatinine measurement (mass/volume) 0.73 mg /dL 0.60-1.30 Serum or plasma urea nitrogen/creatinine mass ratio 22 NRG Serum or plasma creatinine measurement with calculation of estimated glomerular filtration rate > NRG Serum or plasma glucose measurement (mass/volume) 137 mg/dL 70-105 Serum or plasma calcium measurement (mass/volume) 9.9 mg/dL 8.5-10.1 Complete urinalysis with reflex to culture - 03/25/16 15:20 Urine color determination YELLOW NRG Urine clarity determination SLIGHTLY CLOUDY NRG Urine pH measurement by test strip 8 5- 9 Specific gravity of urine by test strip 1.010 1.016-1.022 Urine protein assay by test strip, semi-quantitative NEGATIVE NEGATIVE Urine glucose detection by automated test strip NEGATIVE NEGATIVE Erythrocytes detection in urine sediment by light microscopy 5+ NEGATIVE Urine ketones detection by automated test strip NEGATIVE NEGATIVE Urine nitrite detection by test strip POSITIVE NEGATIVE Urine total bilirubin detection by test strip NEGATIVE NEGATIVE Urine urobilinogen measurement by automated test strip (mass/volume) NORMAL NORMAL Urine leukocyte esterase detection by dipstick 1+ NEGATIVE Automated urine sediment erythrocyte count by microscopy (number/high power field) [HPF] NRG Automated urine sediment leukocyte count by microscopy (number/high power field ) [HPF] NRG Bacteria detection in urine sediment by light microscopy LARGE NRG Crystals detection in urine sediment by light microscopy PRESENT NRG Casts detection in urine sediment by light microscopy NONE NRG Mucus detection in urine sediment by light microscopy NEGATIVE NRG Complete urinalysis with reflex to culture YES NRG Amorphous sediment detection in urine sediment by light microscopy MOD DUARTE PHOSPHATE NRG Bacterial urine culture - 03/25/16 15:20 Bacterial urine culture [id number] NRG COLONY COUNT >100,000/ML NRG FTX;REPORTABLE SENSITIVITY REPORTED AT 0749, 2-6-17 NR URINE CULTURE RESULTS PLUS NR Bacterial susceptibility panel - 03/25/16 15:20 Gentamicin susceptibility test by minimum inhibitory concentration <= NRG Trimethoprim/sulfamethoxazole susceptibility test by minimum inhibitoryconcentration >= NRG Ampicillin susceptibility test by minimum inhibitory concentration R NRG Tobramycin susceptibility test by minimum inhibitory concentration <= NRG Cefazolin susceptibility test by minimum inhibitory concentration >= NRG Ceftriaxone susceptibility test by minimum inhibitory concentration S NRG Ampicillin/sulbactam susceptibility test by minimum inhibitory concentration 4 NRG Ciprofloxacin susceptibility test by minimum inhibitory concentration >= NRG Meropenem susceptibility test by minimum inhibitory concentration <= NRG Nitrofurantoin susceptibility test by minimum inhibitory concentration <= NRG Aztreonam susceptibility test by minimum inhibitory concentration S NRG Extended spectrum beta lactamase (ESBL) producing bacteria susceptibility test by minimum inhibitory concentration - NR Complete blood count (CBC) with automated white blood cell (WBC) differential - 03/26/16 15:18 Blood leukocytes automated count (number/volume) 16.8 10*3/ uL 4.3-11.0 Blood erythrocytes automated count (number/volume) 5.15 10*6 /uL 4.35-5.85 Venous blood hemoglobin measurement (mass/volume) 13.8 g/dL 11.5-16.0 Blood hematocrit (volume fraction) 42 % 35-52 Automated erythrocyte mean corpuscular volume 82 [foz_us] 80-99 Automated erythrocyte mean corpuscular hemoglobin (mass per erythrocyte) 27 pg 25-34 Automated erythrocyte mean corpuscular hemoglobin concentration measurement ( mass/volume) 33 g/dL 32-36 Automated erythrocyte distribution width ratio 16.5 % 10.0-14.5 Automated blood platelet count (count/volume) 366 10*3/uL 130-400 Automated blood platelet mean volume measurement 10.3 [foz_ us] 7.4-10.4 Automated blood neutrophils/100 leukocytes 81 % 42-75 Automated blood lymphocytes/100 leukocytes 12 % 12-44 Blood monocytes/100 leukocytes 7 % 0-12 Automated blood eosinophils/100 leukocytes 0 % 0-10 Automated blood basophils/100 leukocytes 0 % 0-10 Blood neutrophils automated count (number/volume) 13.6 10*3 1.8-7.8 Blood lymphocytes automated count (number/volume) 2.0 10*3 1.0-4.0 Blood monocytes automated count (number/volume) 1.2 10*3 0.0-1.0 Automated eosinophil count 0.0 10*3/uL 0.0-0.3 Automated blood basophil count (count/volume) 0.0 10*3/uL 0.0-0.1 Blood manual differential performed detection - 03/26/16 15:18 Blood monocytes/100 leukocytes 5 % NRG Manual blood segmented neutrophils/100 leukocytes 77 % NRG Blood band neutrophils/100 leukocytes 2 % NRG Manual blood lymphocytes/100 leukocytes 16 % NRG Manual eosinophils/100 leukocytes in nose 0 % NRG Manual blood basophils/100 leukocytes 0 % NRG Blood erythrocyte morphology finding identification NORMAL NR Manual blood nucleated erythrocytes/100 leukocytes ratio 1 [facility] Comprehensive metabolic panel - 03/26/16 15:18 Serum or plasma sodium measurement (moles/volume) 137 mmol/ L 135-145 Serum or plasma potassium measurement (moles/volume) 4.4 mmol/L 3.6-5.0 Serum or plasma chloride measurement (moles/volume) 104 mmol /L 98-107 Carbon dioxide 23 mmol/L 21-32 Serum or plasma anion gap determination (moles/volume) 10 mmol/L 5-14 Serum or plasma urea nitrogen measurement (mass/volume) 27 mg/dL 7-18 Serum or plasma creatinine measurement (mass/volume) 0.82 mg /dL 0.60-1.30 Serum or plasma urea nitrogen/creatinine mass ratio 33 NRG Serum or plasma creatinine measurement with calculation of estimated glomerular filtration rate > NRG Serum or plasma glucose measurement (mass/volume) 148 mg/dL 70-105 Serum or plasma calcium measurement (mass/volume) 10.1 mg/ dL 8.5-10.1 Serum or plasma total bilirubin measurement (mass/volume) 0.4 mg/dL 0.1-1.0 Serum or plasma alkaline phosphatase measurement (enzymatic activity/volume) 124 U/L 40-136 Serum or plasma aspartate aminotransferase measurement (enzymatic activity/ volume) 16 U/L 5-34 Serum or plasma alanine aminotransferase measurement (enzymatic activity/volume ) 13 U/L 0-55 Serum or plasma protein measurement (mass/volume) 6.7 g/dL 6.4-8.2 Serum or plasma albumin measurement (mass/volume) 4.1 g/dL 3.2-4.5 Magnesium - 03/26/16 15:18 Magnesium 2.4 mg/dL 1.8-2.4 Serum or plasma troponin i.cardiac measurement (mass/volume) - 03/26/16 15:18 Serum or plasma troponin i.cardiac measurement (mass/volume) < ng/mL <0.30 RED CELLS LEUKO REDUCED AS1 - 03/26/16 15:30 RED CELLS LEUKO REDUCED AS1 TRANSFUSED [id number] NRG [id number] - 03/26/16 15:30 [id number] SPECIMEN AVAILABLE NR Blood type T Indirect antibody screen panel - 03/26/16 15:30 ABO+Rh group OP NRG Transfusion band number [id number] NR Blood group antibody screen NEGATIVE NRG Methicillin resistant Staphylococcus aureus (MRSA) screening culture - 18:30 Methicillin resistant Staphylococcus aureus (MRSA) screening culture NEG NRG Complete blood count (CBC) with automated white blood cell (WBC) differential - 03/27/16 05:37 Blood leukocytes automated count (number/volume) 18.0 10*3/ uL 4.3-11.0 Blood erythrocytes automated count (number/volume) 4.58 10*6 /uL 4.35-5.85 Venous blood hemoglobin measurement (mass/volume) 12.3 g/dL 11.5-16.0 Blood hematocrit (volume fraction) 38 % 35-52 Automated erythrocyte mean corpuscular volume 84 [foz_us] 80-99 Automated erythrocyte mean corpuscular hemoglobin (mass per erythrocyte) 27 pg 25-34 Automated erythrocyte mean corpuscular hemoglobin concentration measurement ( mass/volume) 32 g/dL 32-36 Automated erythrocyte distribution width ratio 16.5 % 10.0-14.5 Automated blood platelet count (count/volume) 319 10*3/uL 130-400 Automated blood platelet mean volume measurement 9.9 [foz_us ] 7.4-10.4 Automated blood neutrophils/100 leukocytes 83 % 42-75 Automated blood lymphocytes/100 leukocytes 10 % 12-44 Blood monocytes/100 leukocytes 8 % 0-12 Automated blood eosinophils/100 leukocytes 0 % 0-10 Automated blood basophils/100 leukocytes 0 % 0-10 Blood neutrophils automated count (number/volume) 14.9 10*3 1.8-7.8 Blood lymphocytes automated count (number/volume) 1.7 10*3 1.0-4.0 Blood monocytes automated count (number/volume) 1.4 10*3 0.0-1.0 Automated eosinophil count 0.0 10*3/uL 0.0-0.3 Automated blood basophil count (count/volume) 0.0 10*3/uL 0.0-0.1 Blood manual differential performed detection - 03/27/16 05:37 Blood monocytes/100 leukocytes 3 % NRG Manual blood segmented neutrophils/100 leukocytes 88 % NRG Blood band neutrophils/100 leukocytes 0 % NRG Manual blood lymphocytes/100 leukocytes 8 % NRG Manual eosinophils/100 leukocytes in nose 0 % NRG Manual blood basophils/100 leukocytes 0 % NRG Blood lymphocytes variant/100 leukocytes 1 % NRG Blood anisocytosis detection by light microscopy SLIGHT NRG Blood ovalocytes detection by light microscopy SLIGHT NRG Blood toxic granules detection by light microscopy 1+ NRG Comprehensive metabolic panel - 03/27/16 05:37 Serum or plasma sodium measurement (moles/volume) 136 mmol/ L 135-145 Serum or plasma potassium measurement (moles/volume) 4.9 mmol/L 3.6-5.0 Serum or plasma chloride measurement (moles/volume) 108 mmol /L 98-107 Carbon dioxide 20 mmol/L 21-32 Serum or plasma anion gap determination (moles/volume) 8 mmol/L 5-14 Serum or plasma urea nitrogen measurement (mass/volume) 22 mg/dL 7-18 Serum or plasma creatinine measurement (mass/volume) 0.73 mg /dL 0.60-1.30 Serum or plasma urea nitrogen/creatinine mass ratio 30 NRG Serum or plasma creatinine measurement with calculation of estimated glomerular filtration rate > NRG Serum or plasma glucose measurement (mass/volume) 114 mg/dL 70-105 Serum or plasma calcium measurement (mass/volume) 9.4 mg/dL 8.5-10.1 Serum or plasma total bilirubin measurement (mass/volume) 0.4 mg/dL 0.1-1.0 Serum or plasma alkaline phosphatase measurement (enzymatic activity/volume) 101 U/L 40-136 Serum or plasma aspartate aminotransferase measurement (enzymatic activity/ volume) 18 U/L 5-34 Serum or plasma alanine aminotransferase measurement (enzymatic activity/volume ) 12 U/L 0-55 Serum or plasma protein measurement (mass/volume) 5.9 g/dL 6.4-8.2 Serum or plasma albumin measurement (mass/volume) 3.6 g/dL 3.2-4.5 Complete urinalysis with reflex to culture - 03/27/16 13:00 Urine color determination YELLOW NRG Urine clarity determination SLIGHTLY CLOUDY NRG Urine pH measurement by test strip 5 5- 9 Specific gravity of urine by test strip 1.020 1.016-1.022 Urine protein assay by test strip, semi-quantitative 1+ NEGATIVE Urine glucose detection by automated test strip NEGATIVE NEGATIVE Erythrocytes detection in urine sediment by light microscopy NEGATIVE NEGATIVE Urine ketones detection by automated test strip NEGATIVE NEGATIVE Urine nitrite detection by test strip NEGATIVE NEGATIVE Urine total bilirubin detection by test strip NEGATIVE NEGATIVE Urine urobilinogen measurement by automated test strip (mass/volume) NORMAL NORMAL Urine leukocyte esterase detection by dipstick 2+ NEGATIVE Automated urine sediment erythrocyte count by microscopy (number/high power field) NONE NRG Automated urine sediment leukocyte count by microscopy (number/high power field ) [HPF] NRG Bacteria detection in urine sediment by light microscopy MODERATE NRG Squamous epithelial cells detection in urine sediment by light microscopy NONE NRG Crystals detection in urine sediment by light microscopy NONE NRG Casts detection in urine sediment by light microscopy NONE NRG Mucus detection in urine sediment by light microscopy NEGATIVE NRG Complete urinalysis with reflex to culture YES NRG Bacterial urine culture - 03/27/16 13:00 Bacterial urine culture NG NRG Whole blood hemoglobin and hematocrit panel - 03/28/16 05:17 Venous blood hemoglobin measurement (mass/volume) 7.6 g/dL 11.5-16.0 Blood hematocrit (volume fraction) 24 % 35-52 Comprehensive metabolic panel - 03/28/16 05:17 Serum or plasma sodium measurement (moles/volume) 134 mmol/ L 135-145 Serum or plasma potassium measurement (moles/volume) 4.9 mmol/L 3.6-5.0 Serum or plasma chloride measurement (moles/volume) 106 mmol /L 98-107 Carbon dioxide 19 mmol/L 21-32 Serum or plasma anion gap determination (moles/volume) 9 mmol/L 5-14 Serum or plasma urea nitrogen measurement (mass/volume) 29 mg/dL 7-18 Serum or plasma creatinine measurement (mass/volume) 0.93 mg /dL 0.60-1.30 Serum or plasma urea nitrogen/creatinine mass ratio 31 NRG Serum or plasma creatinine measurement with calculation of estimated glomerular filtration rate 58 NRG Serum or plasma glucose measurement (mass/volume) 127 mg/dL 70-105 Serum or plasma calcium measurement (mass/volume) 8.6 mg/dL 8.5-10.1 Serum or plasma total bilirubin measurement (mass/volume) 0.3 mg/dL 0.1-1.0 Serum or plasma alkaline phosphatase measurement (enzymatic activity/volume) 77 U/L 40-136 Serum or plasma aspartate aminotransferase measurement (enzymatic activity/ volume) 9 U/L 5-34 Serum or plasma alanine aminotransferase measurement (enzymatic activity/volume ) 7 U/L 0-55 Serum or plasma protein measurement (mass/volume) 4.5 g/dL 6.4-8.2 Serum or plasma albumin measurement (mass/volume) 2.7 g/dL 3.2-4.5 Complete blood count (CBC) with automated white blood cell (WBC) differential - 03/28/16 08:29 Blood leukocytes automated count (number/volume) 15.5 10*3/ uL 4.3-11.0 Blood erythrocytes automated count (number/volume) 2.94 10*6 /uL 4.35-5.85 Venous blood hemoglobin measurement (mass/volume) 8.0 g/dL 11.5-16.0 Blood hematocrit (volume fraction) 25 % 35-52 Automated erythrocyte mean corpuscular volume 85 [foz_us] 80-99 Automated erythrocyte mean corpuscular hemoglobin (mass per erythrocyte) 27 pg 25-34 Automated erythrocyte mean corpuscular hemoglobin concentration measurement ( mass/volume) 32 g/dL 32-36 Automated erythrocyte distribution width ratio 16.4 % 10.0-14.5 Automated blood platelet count (count/volume) 238 10*3/uL 130-400 Automated blood platelet mean volume measurement 10.2 [foz_ us] 7.4-10.4 Automated blood neutrophils/100 leukocytes 80 % 42-75 Automated blood lymphocytes/100 leukocytes 13 % 12-44 Blood monocytes/100 leukocytes 6 % 0-12 Automated blood eosinophils/100 leukocytes 1 % 0-10 Automated blood basophils/100 leukocytes 0 % 0-10 Blood neutrophils automated count (number/volume) 12.4 10*3 1.8-7.8 Blood lymphocytes automated count (number/volume) 2.1 10*3 1.0-4.0 Blood monocytes automated count (number/volume) 0.9 10*3 0.0-1.0 Automated eosinophil count 0.1 10*3/uL 0.0-0.3 Automated blood basophil count (count/volume) 0.0 10*3/uL 0.0-0.1 Comprehensive metabolic panel - 03/28/16 08:29 Serum or plasma sodium measurement (moles/volume) 135 mmol/ L 135-145 Serum or plasma potassium measurement (moles/volume) 5.0 mmol/L 3.6-5.0 Serum or plasma chloride measurement (moles/volume) 107 mmol /L 98-107 Carbon dioxide 19 mmol/L 21-32 Serum or plasma anion gap determination (moles/volume) 9 mmol/L 5-14 Serum or plasma urea nitrogen measurement (mass/volume) 28 mg/dL 7-18 Serum or plasma creatinine measurement (mass/volume) 0.93 mg /dL 0.60-1.30 Serum or plasma urea nitrogen/creatinine mass ratio 30 NRG Serum or plasma creatinine measurement with calculation of estimated glomerular filtration rate 58 NRG Serum or plasma glucose measurement (mass/volume) 120 mg/dL 70-105 Serum or plasma calcium measurement (mass/volume) 8.8 mg/dL 8.5-10.1 Serum or plasma total bilirubin measurement (mass/volume) 0.3 mg/dL 0.1-1.0 Serum or plasma alkaline phosphatase measurement (enzymatic activity/volume) 85 U/L 40-136 Serum or plasma aspartate aminotransferase measurement (enzymatic activity/ volume) 10 U/L 5-34 Serum or plasma alanine aminotransferase measurement (enzymatic activity/volume ) 6 U/L 0-55 Serum or plasma protein measurement (mass/volume) 4.8 g/dL 6.4-8.2 Serum or plasma albumin measurement (mass/volume) 2.9 g/dL 3.2-4.5 Complete blood count (CBC) with automated white blood cell (WBC) differential - 03/29/16 06:05 Blood leukocytes automated count (number/volume) 12.3 10*3/ uL 4.3-11.0 Blood erythrocytes automated count (number/volume) 3.01 10*6 /uL 4.35-5.85 Venous blood hemoglobin measurement (mass/volume) 8.4 g/dL 11.5-16.0 Blood hematocrit (volume fraction) 25 % 35-52 Automated erythrocyte mean corpuscular volume 84 [foz_us] 80-99 Automated erythrocyte mean corpuscular hemoglobin (mass per erythrocyte) 28 pg 25-34 Automated erythrocyte mean corpuscular hemoglobin concentration measurement ( mass/volume) 33 g/dL 32-36 Automated erythrocyte distribution width ratio 15.4 % 10.0-14.5 Automated blood platelet count (count/volume) 201 10*3/uL 130-400 Automated blood platelet mean volume measurement 9.8 [foz_us ] 7.4-10.4 Automated blood neutrophils/100 leukocytes 78 % 42-75 Automated blood lymphocytes/100 leukocytes 13 % 12-44 Blood monocytes/100 leukocytes 6 % 0-12 Automated blood eosinophils/100 leukocytes 2 % 0-10 Automated blood basophils/100 leukocytes 0 % 0-10 Blood neutrophils automated count (number/volume) 9.6 10*3 1.8-7.8 Blood lymphocytes automated count (number/volume) 1.7 10*3 1.0-4.0 Blood monocytes automated count (number/volume) 0.8 10*3 0.0-1.0 Automated eosinophil count 0.3 10*3/uL 0.0-0.3 Automated blood basophil count (count/volume) 0.0 10*3/uL 0.0-0.1 Comprehensive metabolic panel - 03/29/16 06:05 Serum or plasma sodium measurement (moles/volume) 132 mmol/ L 135-145 Serum or plasma potassium measurement (moles/volume) 4.5 mmol/L 3.6-5.0 Serum or plasma chloride measurement (moles/volume) 102 mmol /L 98-107 Carbon dioxide 25 mmol/L 21-32 Serum or plasma anion gap determination (moles/volume) 5 mmol/L 5-14 Serum or plasma urea nitrogen measurement (mass/volume) 22 mg/dL 7-18 Serum or plasma creatinine measurement (mass/volume) 0.72 mg /dL 0.60-1.30 Serum or plasma urea nitrogen/creatinine mass ratio 31 NRG Serum or plasma creatinine measurement with calculation of estimated glomerular filtration rate > NRG Serum or plasma glucose measurement (mass/volume) 123 mg/dL 70-105 Serum or plasma calcium measurement (mass/volume) 8.7 mg/dL 8.5-10.1 Serum or plasma total bilirubin measurement (mass/volume) 0.7 mg/dL 0.1-1.0 Serum or plasma alkaline phosphatase measurement (enzymatic activity/volume) 64 U/L 40-136 Serum or plasma aspartate aminotransferase measurement (enzymatic activity/ volume) 9 U/L 5-34 Serum or plasma alanine aminotransferase measurement (enzymatic activity/volume ) 6 U/L 0-55 Serum or plasma protein measurement (mass/volume) 4.4 g/dL 6.4-8.2 Serum or plasma albumin measurement (mass/volume) 2.6 g/dL 3.2-4.5 Complete blood count (CBC) with automated white blood cell (WBC) differential - 03/30/16 05:25 Blood leukocytes automated count (number/volume) 12.3 10*3/ uL 4.3-11.0 Blood erythrocytes automated count (number/volume) 2.92 10*6 /uL 4.35-5.85 Venous blood hemoglobin measurement (mass/volume) 8.0 g/dL 11.5-16.0 Blood hematocrit (volume fraction) 25 % 35-52 Automated erythrocyte mean corpuscular volume 86 [foz_us] 80-99 Automated erythrocyte mean corpuscular hemoglobin (mass per erythrocyte) 27 pg 25-34 Automated erythrocyte mean corpuscular hemoglobin concentration measurement ( mass/volume) 32 g/dL 32-36 Automated erythrocyte distribution width ratio 15.8 % 10.0-14.5 Automated blood platelet count (count/volume) 239 10*3/uL 130-400 Automated blood platelet mean volume measurement 10.5 [foz_ us] 7.4-10.4 Automated blood neutrophils/100 leukocytes 79 % 42-75 Automated blood lymphocytes/100 leukocytes 14 % 12-44 Blood monocytes/100 leukocytes 6 % 0-12 Automated blood eosinophils/100 leukocytes 1 % 0-10 Automated blood basophils/100 leukocytes 0 % 0-10 Blood neutrophils automated count (number/volume) 9.7 10*3 1.8-7.8 Blood lymphocytes automated count (number/volume) 1.7 10*3 1.0-4.0 Blood monocytes automated count (number/volume) 0.7 10*3 0.0-1.0 Automated eosinophil count 0.1 10*3/uL 0.0-0.3 Automated blood basophil count (count/volume) 0.0 10*3/uL 0.0-0.1 Comprehensive metabolic panel - 03/30/16 05:25 Serum or plasma sodium measurement (moles/volume) 135 mmol/ L 135-145 Serum or plasma potassium measurement (moles/volume) 4.4 mmol/L 3.6-5.0 Serum or plasma chloride measurement (moles/volume) 105 mmol /L 98-107 Carbon dioxide 23 mmol/L 21-32 Serum or plasma anion gap determination (moles/volume) 7 mmol/L 5-14 Serum or plasma urea nitrogen measurement (mass/volume) 20 mg/dL 7-18 Serum or plasma creatinine measurement (mass/volume) 0.72 mg /dL 0.60-1.30 Serum or plasma urea nitrogen/creatinine mass ratio 28 NRG Serum or plasma creatinine measurement with calculation of estimated glomerular filtration rate > NRG Serum or plasma glucose measurement (mass/volume) 151 mg/dL 70-105 Serum or plasma calcium measurement (mass/volume) 8.6 mg/dL 8.5-10.1 Serum or plasma total bilirubin measurement (mass/volume) 0.6 mg/dL 0.1-1.0 Serum or plasma alkaline phosphatase measurement (enzymatic activity/volume) 85 U/L 40-136 Serum or plasma aspartate aminotransferase measurement (enzymatic activity/ volume) 11 U/L 5-34 Serum or plasma alanine aminotransferase measurement (enzymatic activity/volume ) 6 U/L 0-55 Serum or plasma protein measurement (mass/volume) 4.7 g/dL 6.4-8.2 Serum or plasma albumin measurement (mass/volume) 2.7 g/dL 3.2-4.5 Complete blood count (CBC) with automated white blood cell (WBC) differential - 04/01/16 05:40 Blood leukocytes automated count (number/volume) 13.2 10*3/ uL 4.3-11.0 Blood erythrocytes automated count (number/volume) 3.33 10*6 /uL 4.35-5.85 Venous blood hemoglobin measurement (mass/volume) 9.3 g/dL 11.5-16.0 Blood hematocrit (volume fraction) 29 % 35-52 Automated erythrocyte mean corpuscular volume 87 [foz_us] 80-99 Automated erythrocyte mean corpuscular hemoglobin (mass per erythrocyte) 28 pg 25-34 Automated erythrocyte mean corpuscular hemoglobin concentration measurement ( mass/volume) 32 g/dL 32-36 Automated erythrocyte distribution width ratio 16.6 % 10.0-14.5 Automated blood platelet count (count/volume) 386 10*3/uL 130-400 Automated blood platelet mean volume measurement 10.3 [foz_ us] 7.4-10.4 Automated blood neutrophils/100 leukocytes 72 % 42-75 Automated blood lymphocytes/100 leukocytes 18 % 12-44 Blood monocytes/100 leukocytes 9 % 0-12 Automated blood eosinophils/100 leukocytes 2 % 0-10 Automated blood basophils/100 leukocytes 0 % 0-10 Blood neutrophils automated count (number/volume) 9.5 10*3 1.8-7.8 Blood lymphocytes automated count (number/volume) 2.3 10*3 1.0-4.0 Blood monocytes automated count (number/volume) 1.2 10*3 0.0-1.0 Automated eosinophil count 0.2 10*3/uL 0.0-0.3 Automated blood basophil count (count/volume) 0.1 10*3/uL 0.0-0.1 Comprehensive metabolic panel - 04/01/16 05:40 Serum or plasma sodium measurement (moles/volume) 135 mmol/ L 135-145 Serum or plasma potassium measurement (moles/volume) 4.2 mmol/L 3.6-5.0 Serum or plasma chloride measurement (moles/volume) 104 mmol /L 98-107 Carbon dioxide 22 mmol/L 21-32 Serum or plasma anion gap determination (moles/volume) 9 mmol/L 5-14 Serum or plasma urea nitrogen measurement (mass/volume) 17 mg/dL 7-18 Serum or plasma creatinine measurement (mass/volume) 0.74 mg /dL 0.60-1.30 Serum or plasma urea nitrogen/creatinine mass ratio 23 NRG Serum or plasma creatinine measurement with calculation of estimated glomerular filtration rate > NRG Serum or plasma glucose measurement (mass/volume) 110 mg/dL 70-105 Serum or plasma calcium measurement (mass/volume) 9.7 mg/dL 8.5-10.1 Serum or plasma total bilirubin measurement (mass/volume) 1.2 mg/dL 0.1-1.0 Serum or plasma alkaline phosphatase measurement (enzymatic activity/volume) 89 U/L 40-136 Serum or plasma aspartate aminotransferase measurement (enzymatic activity/ volume) 9 U/L 5-34 Serum or plasma alanine aminotransferase measurement (enzymatic activity/volume ) < U/L 0-55 Serum or plasma protein measurement (mass/volume) 5.4 g/dL 6.4-8.2 Serum or plasma albumin measurement (mass/volume) 3.2 g/dL 3.2-4.5 Capillary blood glucose measurement by glucometer (mass/volume) - 04/05/16 21: 31 Capillary blood glucose measurement by glucometer (mass/volume) 110 mg/dL 70-110 Complete urinalysis with reflex to culture - 05/18/16 12:00 Urine color determination YELLOW NRG Urine clarity determination CLEAR NRG Urine pH measurement by test strip 7 5- 9 Specific gravity of urine by test strip 1.005 1.016-1.022 Urine protein assay by test strip, semi-quantitative NEGATIVE NEGATIVE Urine glucose detection by automated test strip NEGATIVE NEGATIVE Erythrocytes detection in urine sediment by light microscopy NEGATIVE NEGATIVE Urine ketones detection by automated test strip NEGATIVE NEGATIVE Urine nitrite detection by test strip NEGATIVE NEGATIVE Urine total bilirubin detection by test strip NEGATIVE NEGATIVE Urine urobilinogen measurement by automated test strip (mass/volume) NORMAL NORMAL Urine leukocyte esterase detection by dipstick NEGATIVE NEGATIVE Automated urine sediment erythrocyte count by microscopy (number/high power field) NONE NRG Automated urine sediment leukocyte count by microscopy (number/high power field ) NONE NRG Bacteria detection in urine sediment by light microscopy NEGATIVE NRG Crystals detection in urine sediment by light microscopy NONE NRG Casts detection in urine sediment by light microscopy NONE NRG Mucus detection in urine sediment by light microscopy NEGATIVE NRG Complete urinalysis with reflex to culture NO NRG Sputum Gram stain - 05/28/16 09:28 GRAM STAIN SPUTUM GRAM STAIN NRG Bacterial sputum culture - 05/28/16 09:28 Bacterial sputum culture NORMAL NRG Capillary blood glucose measurement by glucometer (mass/volume) - 06/04/16 13: 15 Capillary blood glucose measurement by glucometer (mass/volume) 84 mg/dL 70-110 Complete blood count (CBC) with automated white blood cell (WBC) differential - 06/04/16 14:10 Blood leukocytes automated count (number/volume) 10.3 10*3/ uL 4.3-11.0 Blood erythrocytes automated count (number/volume) 4.51 10*6 /uL 4.35-5.85 Venous blood hemoglobin measurement (mass/volume) 12.7 g/dL 11.5-16.0 Blood hematocrit (volume fraction) 39 % 35-52 Automated erythrocyte mean corpuscular volume 87 [foz_us] 80-99 Automated erythrocyte mean corpuscular hemoglobin (mass per erythrocyte) 28 pg 25-34 Automated erythrocyte mean corpuscular hemoglobin concentration measurement ( mass/volume) 32 g/dL 32-36 Automated erythrocyte distribution width ratio 16.4 % 10.0-14.5 Automated blood platelet count (count/volume) 402 10*3/uL 130-400 Automated blood platelet mean volume measurement 9.8 [foz_us ] 7.4-10.4 Automated blood neutrophils/100 leukocytes 57 % 42-75 Automated blood lymphocytes/100 leukocytes 31 % 12-44 Blood monocytes/100 leukocytes 7 % 0-12 Automated blood eosinophils/100 leukocytes 4 % 0-10 Automated blood basophils/100 leukocytes 1 % 0-10 Blood neutrophils automated count (number/volume) 5.8 10*3 1.8-7.8 Blood lymphocytes automated count (number/volume) 3.2 10*3 1.0-4.0 Blood monocytes automated count (number/volume) 0.7 10*3 0.0-1.0 Automated eosinophil count 0.4 10*3/uL 0.0-0.3 Automated blood basophil count (count/volume) 0.1 10*3/uL 0.0-0.1 Comprehensive metabolic panel - 06/04/16 14:10 Serum or plasma sodium measurement (moles/volume) 139 mmol/ L 135-145 Serum or plasma potassium measurement (moles/volume) 4.6 mmol/L 3.6-5.0 Serum or plasma chloride measurement (moles/volume) 104 mmol /L 98-107 Carbon dioxide 25 mmol/L 21-32 Serum or plasma anion gap determination (moles/volume) 10 mmol/L 5-14 Serum or plasma urea nitrogen measurement (mass/volume) 15 mg/dL 7-18 Serum or plasma creatinine measurement (mass/volume) 0.86 mg /dL 0.60-1.30 Serum or plasma urea nitrogen/creatinine mass ratio 17 NRG Serum or plasma creatinine measurement with calculation of estimated glomerular filtration rate > NRG Serum or plasma glucose measurement (mass/volume) 73 mg/dL 70-105 Serum or plasma calcium measurement (mass/volume) 9.8 mg/dL 8.5-10.1 Serum or plasma total bilirubin measurement (mass/volume) 0.3 mg/dL 0.1-1.0 Serum or plasma alkaline phosphatase measurement (enzymatic activity/volume) 104 U/L 40-136 Serum or plasma aspartate aminotransferase measurement (enzymatic activity/ volume) 15 U/L 5-34 Serum or plasma alanine aminotransferase measurement (enzymatic activity/volume ) 6 U/L 0-55 Serum or plasma protein measurement (mass/volume) 6.4 g/dL 6.4-8.2 Serum or plasma albumin measurement (mass/volume) 3.5 g/dL 3.2-4.5 Serum or plasma troponin i.cardiac measurement (mass/volume) - 06/04/16 14:10 Serum or plasma troponin i.cardiac measurement (mass/volume) < ng/mL <0.30 Encounters ACCT No. Visit Date/Time Discharge Status Pt. Type Provider Facility Loc./Unit Complaint [id number] 08/26/2016 04:51:00 2016 05:44:00 DIS Emergency ASHLEY WATTS MD [facility] ER HIP PAIN [id number] 07/25/2016 10:50:00 2016 13:28:00 DIS Emergency NI GUTIERREZ [facility] ER CHRONIC PAIN [id number] 07/01/2016 18:23:00 2016 19:53:00 DIS Emergency ISABELLA FARIAS MD [facility] ER L LEG PAIN [id number] 06/04/2016 13:00:00 2016 17:23:00 DIS Emergency ASHLEY WATTS MD [facility] ER L LEG PAIN [id number] 03/30/2016 10:50:00 2016 15:00:00 DIS Inpatient LEXUS CHOWDHURY MD [facility] IRF RIGHT HIP FRACTURE [id number] 03/26/2016 17:06:00 2016 10:45:00 DIS Inpatient NITO VANESSA MD [facility] 4TH FALL/BACK PAIN [id number] 03/25/2016 14:01:00 2016 16:50:00 DIS Outpatient ALFREDO JOSÉ APRN [facility] ER BLEEDING EPIDURAL [id number] 03/25/2016 09:02:00 2016 10:16:00 DIS Outpatient MORAIMA MUÑIZ MD [facility] CARD M51.16 [id number] 03/16/2016 08:22:00 2016 10:01:00 DIS Emergency BETTY MAZARIEGOS DO [facility] ER BACK/LEG PAIN [id number] 09/25/2015 08:10:00 2015 09:33:00 DIS Outpatient MORAIMA MUÑIZ MD [facility] CARD DISC DISORDER W/RADICULOPATHY [id number] 07/30/2015 17:56:00 2015 11:36:00 DIS Inpatient YSABEL ABREU DO [facility] 4TH FALL;WEAKNESS;AMS;RHABDOMYOLYSIS [id number] 07/28/2015 15:05:00 2015 17:13:00 DIS Emergency JARRETT BUTLER, ISABELLA Gongora [facility] ER CONFUSED [id number] 06/22/2015 22:12:00 2015 10:54:00 DIS Inpatient NITO VANESSA MD [facility] 4TH UTI,AMS,GENERALIZED WEAKNESS,FREQUENT FALLS [id number] 06/21/2015 17:51:00 2015 19:38:00 DIS Emergency RADHA PAREDES MD [facility] ER MEDICATION ISSUES [id number] 06/18/2015 16:28:00 2015 20:08:00 DIS Emergency ALFREDO JOSÉ APRN [facility] ER BACK PAIN FROM FALL [id number] 06/10/2015 17:57:00 2015 18:30:00 DIS Outpatient YSABEL ABREU DO [facility] SDC UTI,DYSPHAGIA,NEW T10 COMPRESSION FX, VOLUME DEPLET [id number] 04/27/2015 05:52:00 2015 12:00:00 DIS Outpatient ARTIE JORGENSEN MD [facility] SDC COMPRESSION FRACTURE [id number] 04/18/2015 20:36:00 2015 00:52:00 DIS Emergency NI GUTIERREZ [facility] ER FALL/BACK PAIN [id number] 12/21/2014 14:52:00 2014 13:26:00 DIS Inpatient LEXUS CHOWDHURY MD [facility] IRF PAIN MANAGEMENT [id number] 12/16/2014 20:00:00 2014 14:50:00 DIS Inpatient TORIBIO FOFANA DO [facility] 4TH LOW BACK PAIN, LUMBAR RADICOLOPATHY, INABILITY TO [id number] 12/05/2014 10:02:00 2014 13:30:00 DIS Inpatient TORIBIO FOFANA DO [facility] 4TH UTI COMPRESSION FX L1 L4 [id number] 11/17/2014 10:35:00 2014 23:59:59 CLS Outpatient MORAIMA MUÑIZ MD [facility] RAD DDD LUMBAR THORACALGIA [id number] 10/31/2014 08:36:00 2014 09:24:00 DIS Outpatient MORAIMA MUÑIZ MD [facility] CARD DDD [id number] 10/23/2014 15:06:00 2014 23:59:59 CLS Outpatient MORAIMA MUÑIZ MD [facility] RAD LUMBAGO,THORACALGIA [id number] 10/19/2014 11:23:00 2014 17:16:00 DIS Emergency NI GUTIERREZ [facility] ER BACK/FLANK PAIN [id number] 08/23/2014 11:10:00 2014 12:24:00 DIS Emergency ALFREDO JOSÉ APRN [facility] ER NO BM FOR 4D [id number] 07/07/2014 23:16:00 2014 02:14:00 DIS Emergency TORIBIO WOLF DO [facility] ER CP [id number] 06/03/2014 17:56:00 2014 20:24:00 DIS Emergency BETTY MAZARIEGOS DO [facility] ER ABD PAIN [id number] 03/26/2014 16:46:00 2014 23:59:59 CLS Outpatient TORIBIO FOFANA DO [facility] RAD NO OUTPUT [id number] 02/16/2014 08:06:00 2013 23:59:59 CLS Outpatient TORIBIO FOFANA DO [facility] CVS ABD DRAIN SITE [id number] 02/13/2014 10:37:00 2013 23:59:59 CLS Outpatient TORIBIO FOFANA DO [facility] CVS UTI [id number] 02/05/2014 09:37:00 2013 14:50:00 DIS Inpatient TORIBIO FOFANA DO [facility] SURGICAL SWB-HYPONATREMIA, CHEST PAIN, UTI, LEUKOCYTOSIS [id number] 01/23/2014 17:28:00 2013 09:17:00 DIS Inpatient TORIBIO FOFANA DO [facility] SURGICAL HYPONATREMIA, CHEST PAIN, UTI, LEUKOCYTOSIS [id number] 12/13/2013 09:33:00 2013 23:59:59 CLS Outpatient ARTIE JORGENSEN MD [facility] RAD SCOLIOSIS, LUMBAGO [id number] 11/25/2013 13:46:00 2013 15:28:00 DIS Emergency 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 PAIN; CONSTIPATION [id number] 09/29/2013 10:01:00 2013 14:15:00 DIS Emergency TORIBIO WOLF DO [facility] ER CHEST PAIN/SOA [id number] 09/17/2013 13:20:00 2013 14:35:00 DIS Outpatient TORIBIO FOFANA DO [facility] CATH CHEST PAIN/LIGHTHEADEDNESS AND DIZZINESS [id number] 08/09/2013 06:46:00 2013 12:35:00 DIS Outpatient VANESSA DANIELSON MD [facility] SKIN LESIONS;CONSTIPATION [id number] 08/05/2013 10:14:00 2013 23:59:59 CLS Outpatient VANESSA DANIELSON MD [facility] PREOP SKIN LESIONS;CONSTIPATION [id number] 05/29/2013 08:57:00 2013 11:01:00 DIS Emergency BETTY MAZARIEGOS DO [facility] ER DIZZINESS [id number] 05/05/2013 09:27:00 2013 10:31:00 DIS Emergency BETTY MAZARIEGOS DO [facility] ER ALLERGIC REACTION [id number] 04/23/2013 11:04:00 2013 13:42:00 DIS Emergency JARRETT BUTLER, ISABELLA Gongora [facility] ER SYNCOPE [id number] 02/25/2013 08:21:00 2013 11:00:00 DIS Outpatient VANESSA DANIELSON MD [facility] UPPER GASTRIC PAIN [id number] 02/21/2013 09:29:00 2013 23:59:59 CLS Outpatient VANESSA DANIELSON MD [facility] PREOP UPPER GASTRIC PAIN [id number] 01/14/2013 09:36:00 2012 23:59:59 CLS Outpatient TORIBIO FOFANA DO [facility] RAD RUQ PAIN [id number] 01/07/2013 08:21:00 2012 12:08:00 DIS Emergency RADHA PAREDES MD [facility] ER ABD PAIN/CRAMPING [id number] 12/24/2012 09:40:00 2012 23:59:59 CLS Outpatient AURORA NUNO MD [facility] RAD GASTRIC PAIN [id number] 11/07/2012 09:47:00 2012 13:17:00 DIS Emergency LENA BUTLER, RADHA Sacnhez [facility] ER DIZZINESS/MULTIPLE FALLS [id number] 10/11/2012 06:25:00 2012 23:59:59 CLS Outpatient FOFANAAERLI MOJICA [facility] RAD RT FOOT BRUISING AND SWELLING [id number] 09/27/2012 08:32:00 2012 12:10:00 DIS Outpatient LIANA HAMMER MD [facility] SDC DYSPHAGIA [id number] 09/19/2012 07:23:00 2012 23:59:59 CLS Outpatient LIANA HAMMER MD [facility] PREOP DYSPHAGIA [id number] 09/10/2012 09:28:00 2012 10:30:00 DIS Inpatient TORIBIO FOFANA DO [facility] 4TH CHEST PAIN [id number] 08/29/2012 10:36:00 2012 23:59:59 CLS Outpatient MANNY VALDEZ [facility] LAB POSTIVE MRSA [id number] 08/19/2012 05:31:00 2012 07:50:00 DIS Emergency BETTY MAZARIEGOS DO [facility] ER RT GROIN PAIN [id number] 08/16/2012 06:46:00 2012 11:49:00 DIS Outpatient AGUS BUTLER FACC, LUIS ELLER CCDS [facility] CATH CAD,HTN,HL,CHEST PAIN,SOB [id number] 08/09/2012 10:03:00 2012 23:59:59 CLS Outpatient AURORA NUNO MD [facility] RAD DYSPHAGIA [id number] 07/17/2012 08:02:00 2012 23:59:59 CLS Outpatient SHU ARELIANASTASIIA Stinson APRN [facility] RAD LOWER ABD PAIN [id number] 07/06/2012 12:09:00 2012 23:59:59 CLS Outpatient ARELI IRELAND SHIPPING INSPECTOR [facility] RAD URINARY INCONTINENCE [id number] 05/28/2016 09:25:00 ACT Outpatient TORIBIO FOFANA DO [facility] CVS COUGH [id number] 05/18/2016 07:42:00 ACT Outpatient TORIBIO FOFANA DO [facility] CVS UTI [id number] 05/06/2016 09:05:00 ACT Outpatient TORIBIO FOFANA DO [facility] CARD MULTIPLE PSYCHIATRIC MEDICATION USE [id number] 03/24/2016 10:45:00 PEN PreadRA Johnson MD [facility] RAD PARASTOMAL HERNIA [id number] 01/26/2016 12:49:00 ACT Outpatient BAIMANNY WILL RESIDENT SERVICES DIRECTOR [facility] CARD CAD,HTN,SHEETS,HLP,CLAUDICATION [id number] 01/21/2016 13:34:00 ACT Outpatient BAIMANNY WILL RESIDENT SERVICES DIRECTOR [facility] LAB CAD,HLP,HTN,SHEETS [id number] 01/21/2016 12:54:00 ACT Outpatient ARELI FOFANA RESIDENT SERVICES DIRECTOR [facility] RAD ABD PAIN [id number] 10/08/2015 14:22:00 ACT Outpatient TORIBIO FOFANA DO [facility] RAD M81.0,M54.5 [id number] 08/25/2015 12:15:00 Document Registration [id number] 08/25/2015 12:15:00 Document Registration [id number] 08/25/2015 12:15:00 Document Registration [id number] 08/25/2015 12:14:00 Document Registration [id number] 08/25/2015 12:14:00 Document Registration [id number] 08/25/2015 12:14:00 Document Registration [id number] 08/25/2015 12:14:00 Document Registration [id number] 08/25/2015 12:14:00 Document Registration [id number] 08/25/2015 12:14:00 Document Registration [id number] 08/25/2015 12:14:00 Document Registration [id number] 08/25/2015 12:14:00 Document Registration [id number] 08/25/2015 12:14:00 Document Registration [id number] 08/25/2015 12:14:00 Document Registration [id number] 08/25/2015 12:14:00 Document Registration [id number] 08/25/2015 12:13:00 Document Registration [id number] 08/25/2015 12:13:00 Document Registration [id number] 08/25/2015 12:13:00 Document Registration [id number] 08/25/2015 12:13:00 Document Registration [id number] 08/25/2015 12:13:00 Document Registration [id number] 07/10/2015 13:24:00 ACT Outpatient TORIBIO FOFANA DO [facility] RAD TRAUMA R CLAVICLE [id number] 07/10/2015 10:11:00 ACT Outpatient TORIBIO FOFANA DO [facility] RAD DYSPHAGIA [id number] 05/24/2015 14:01:00 Document Registration [id number] 05/18/2015 12:58:00 ACT Outpatient ARTIE JORGENSEN MD [facility] RAD RADICULOPATHY [id number] 04/23/2015 08:38:00 ACT Outpatient ARTIE JORGENSEN MD [facility] PREOP COMPRESSION FRACTURE [id number] 04/20/2015 09:06:00 ACT Outpatient ARTIE JORGENSEN MD [facility] RAD RADICULOPATHY [id number] 04/17/2015 09:28:00 ACT Emergency RASHEEDA BUTLER, NITO Mojica [facility] ER FALL BACK/HIP PAIN [id number] 04/16/2015 06:48:00 ACT Outpatient AGUS BUTLER FACC, LUIS ELLER CCDS [facility] CARD CAD,HLP,HTN,SOB [id number] 03/25/2015 05:09:00 ACT Emergency RADHA PAREDES MD [facility] ER PAIN [id number] 03/26/2014 16:45:00 Document Registration [id number] 03/26/2014 16:45:00 Document Registration [id number] 03/26/2014 16:45:00 Document Registration [id number] 03/26/2014 16:45:00 Document Registration [id number] 01/23/2014 16:17:00 Document Registration [id number] 01/23/2014 16:17:00 Document Registration [id number] 01/23/2014 16:17:00 Document Registration [id number] 06/10/2012 16:19:00 Document Registration [id number] 05/02/2012 18:21:00 Document Registration [id number] 03/16/2012 13:02:00 Document Registration [id number] 01/02/2012 10:32:00 Document Registration [id number] 12/30/2011 08:07:00 Document Registration [id number] 11/21/2011 09:33:00 Document Registration [id number] 08/29/2011 08:51:00 Document Registration [id number] 08/26/2011 11:45:00 Document Registration [id number] 08/04/2011 09:30:00 Document Registration [id number] 06/06/2011 16:17:00 Document Registration [id number] 04/17/2011 13:33:00 Document Registration [id number] 10/28/2010 13:42:00 Document Registration [id number] 08/06/2010 07:54:00 Document Registration [id number] 07/25/2010 09:30:00 Document Registration [id number] 04/08/2010 11:34:00 Document Registration [id number] 10/30/2009 11:30:00 Document Registration [id number] 09/25/2009 14:02:00 Document Registration [id number] 09/22/2009 12:50:00 Document Registration [id number] 06/18/2008 07:27:00 Document Registration [id number] 04/22/2008 12:39:00 Document Registration [id number] 04/14/2008 12:43:00 Document Registration [id number] 03/27/2008 11:38:00 Document Registration [id number] 03/26/2008 12:58:00 Document Registration [id number] 10/27/2007 18:42:00 Document Registration [id number] 03/01/2007 13:34:00 Document Registration [id number] 12/20/2006 18:45:00 Document Registration [id number] 10/16/2006 13:03:00 Document Registration [id number] 07/10/2006 15:14:00 Document Registration [id number] 05/31/2006 14:00:00 Document Registration [id number] 05/16/2006 15:16:00 Document Registration [id number] 11/21/2005 16:39:00 Document Registration [id number] 10/28/2005 07:44:00 Document Registration [id number] 10/19/2005 12:56:00 Document Registration [id number] 07/21/2005 10:55:00 Document Registration
== END 2016-08-26 05:44 | disposition home or self-care (01) ==
LOC: EDUNIT# 04:47 → ER 04:51
DX: M25.552 Pain in left hip (principal); J44.9 Chronic obstructive pulmonary disease, unspecified; I25.10 Atherosclerotic heart disease of native coronary artery without angina pectoris; M81.0 Age-related osteoporosis without current pathological fracture; M19.90 Unspecified osteoarthritis, unspecified site; E03.9 Hypothyroidism, unspecified; F41.9 Anxiety disorder, unspecified; F32.9 Major depressive disorder, single episode, unspecified; I10 Essential (primary) hypertension; K21.9 Gastro-esophageal reflux disease without esophagitis; Z86.718 Personal history of other venous thrombosis and embolism; Z79.82 Long term (current) use of aspirin; Z87.891 Personal history of nicotine dependence; Z82.49 Family history of ischemic heart disease and other diseases of the circulatory system; Z93.3 Colostomy status; Z95.5 Presence of coronary angioplasty implant and graft
CPT/HCPCS: 99283

== ENCOUNTER 2016-10-31 15:47 | Emergency (ER) | payer MEDICARE, MEDICAID ==
[~2016-10-31] VITALS: Ht 154.9 cm; Wt 66.2 kg
[~2016-10-31 15:47] MED LIST changes: +DICY10CA12; +FENT1PAT8; +PRD20T PO; +PREG75CA
--- NOTE | 2016-10-31 15:59 | ED General ---
General Stated Complaint: ABD PAIN Source of Information: Patient, EMS Exam Limitations: No Limitations History of Present Illness Time Seen by Provider: 15:57 Initial Comments To ER per EMS from home on [facility] here in [place] with reports of suprapubic abdominal pain, urinary frequency, nausea. She is certain that she' ll need to be admitted. Timing/Duration: 1-2 Days Severity: Moderate Associated Systoms: Nausea/Vomiting Allergies and Home Medications Allergies Coded Allergies: No Known Drug Allergies (Unverified , 06/10/15) Home Medications Aspirin 81 Mg Tabec, 81 MG PO DAILY, (Reported) Budesonide/Formoterol Fumarate 10.2 Gm Hfa.aer.ad, 2 PUFF INH BID, (Reported) Clopidogrel Bisulfate 75 Mg Tablet, 75 MG PO DAILY, (Reported) LAST FILLED 12-08-15 #30 Cyclosporine 1 Each Droperette, 1 DROP OU BID, (Reported) LAST FILLED 07-16-15 Dicyclomine HCl 10 Mg Capsule, #90 (Reported) Duloxetine HCl 60 Mg Capsule.dr, 60 MG PO DAILY, (Reported) Ezetimibe 10 Mg Tablet, 10 MG PO DAILY, (Reported) Fentanyl 1 Each Patch.td72, #10 (Reported) Lactulose 20 Gm/30 Ml Solution, 30 GM PO QID, #30 Prescribed by: YSABEL ABREU on 03/30/16 0839 Levothyroxine Sodium 100 Mcg Tablet, 100 MCG PO 0630, (Reported) Lorazepam 1 Mg Tablet, 1 MG PO BID, (Reported) Metoprolol Succinate 50 Mg Tab.er.24h, 50 MG PO DAILY, (Reported) Nitroglycerin 0.4 Mg Tab.subl, 0.4 MG SL UD PRN for CHEST PAIN, (Reported) Omeprazole 40 Mg Capsule.dr, 40 MG PO BID, (Reported) Oxycodone HCl/Acetaminophen 1 Each Tablet, 1 TAB PO Q6H PRN for PAIN, (Reported) Polyethylene Glycol 3350 17 Gm Powd.pack, 17 GM PO BID PRN PRN for CONSTIPATION- 1ST LINE, #1 Ref 0 Prescribed by: ASHLEY WATTS on 06/04/16 1502 Prednisone 20 Mg Tab, 20 MG PO BID for 5 Days, #9 Ref 0 Prescribed by: ASHLEY WATTS on 08/26/16 0522 Pregabalin 75 Mg Capsule, #60 (Reported) Ropinirole HCl 1 Mg Tablet, 6 MG PO HS, #30 Prescribed by: LEXUS CHOWDHURY on 04/06/16 1017 Sucralfate 1 Gm/10 Ml Oral.susp, 10 ML PO QID, (Reported) Temazepam 30 Mg Capsule, 30 MG PO HS, (Reported) Tramadol HCl 50 Mg Tablet, 50 MG PO Q4H PRN for MILD PAIN, #30 Prescribed by: YSABEL ABREU on 03/30/16 0839 Constitutional: see HPI EENTM: see HPI Respiratory: no symptoms reported Cardiovascular: no symptoms reported Gastrointestinal: nausea Musculoskeletal: no symptoms reported Skin: no symptoms reported Psychiatric/Neurological: No Symptoms Reported Past Aejdyxd-Bmqadq-Muyaie Hx Patient Social History Type Used: Cigarettes Former Smoker, Quit: Mar 26, 1996 Recent Hopitalizations: No Immunizations Up To Date Tetanus Booster (TDap): Unknown PED Vaccines UTD: No Date of Pneumonia Vaccine: Apr 22, 2009 Date of Influenza Vaccine: Mar 30, 2016 Seasonal Allergies Seasonal Allergies: Yes Surgeries History of Surgeries: Yes (COLOSTOMY, KYPHOPLASTY; CARDIAC CATH WITH STENTS X 2 ; EGD/COLONOSCOPIES ) Surgeries: Abdominal, Appendectomy, Bowel Surgery, Cardiac, Coronary Stent, Hysterectomy, Orthopedic, Tonsillectomy Respiratory History of Respiratory Disorde: Yes Respiratory Disorders: COPD Currently Using CPAP: No Currently Using BIPAP: No Cardiovascular History of Cardiac Disorders: Yes (STENTS X2) Cardiac Disorders: Coronary Artery Disease, Deep Vein Thrombosis, Hypertension Neurological History of Neurological Disord: No Neurological Disorders: Vertigo 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 System Hx 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 Disorders: No 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 Genitourinary Genitourinary Disorders: UTI-Chronic Gastrointestinal History of Gastrointestinal Di: Yes (COLOSTOMY; PARASTOMAL HERNIA) Gastrointestinal Disorders: Abdominal Hernia, Gastroesophageal Reflux, Diverticulosis, Esophagitis Musculoskeletal History of Musculoskeletal Dis: Yes (compression fracture status post kyphoplasty) Musculoskeletal Disorders: Osteoporosis, Arthritis, Chronic Back Pain, Fractures Endocrine History of Endocrine Disorders: Yes (HYPOTHYROID) Endocrine Disorders: Hypothyroidsim HEENT History of HEENT Disorders: No HEENT Disorders: Cataract Loss of Vision: Denies Hearing Impairment: Denies Cancer History of Cancer: No Psychosocial History of Psychiatric Problem: Yes Behavioral Health Disorders: Anxiety, Depression Integumentary History of Skin or Integumenta: No Blood Transfusions History of Blood Disorders: Yes (anemia post op epideral site,bld transfusion) Adverse Reaction to a Blood Tr: No Family Medical History Significant Family History: No Pertinent Family Hx Family Medial History: Family history: Hypertension G8 BROTHER Myocardial infarction 19 MOTHER G8 BROTHER Physical Exam Vital Signs Vital Sign - Last 12Hours 10/31/16 16:14 Temp 99.0 Pulse 75 Resp 16 B/P (MAP) 135/94 Pulse Ox 96 Capillary Refill : General Appearance: No Apparent Distress, WD/WN Eyes: Bilateral Eye Normal Inspection, Bilateral Eye PERRL, Bilateral Eye EOMI HEENT: PERRL/EOMI, TMs Normal Neck: Full Range of Motion, Normal Inspection Respiratory: Normal Breath Sounds, No Accessory Muscle Use, No Respiratory Distress Gastrointestinal: Normal Bowel Sounds, Non Tender, Soft Extremity: Normal Capillary Refill, Normal Inspection Neurologic/Psychiatric: Alert, Oriented x3, No Motor/Sensory Deficits Skin: Normal Color, Warm/Dry Comments She does have a midline colostomy bag. Progress/Results/Core Measures Results/Orders Lab Results Laboratory Tests Test 10/31/16 16:06 10/31/16 17:26 Range/Units White Blood Count 10.3 4.3-11.0 10^3/uL Red Blood Count 4.71 4.35-5.85 10^6/uL Hemoglobin 13.5 11.5-16.0 G/DL Hematocrit 40 35-52 % Mean Corpuscular Volume 84 80-99 FL Mean Corpuscular Hemoglobin 29 25-34 PG Mean Corpuscular Hemoglobin Concent 34 32-36 G/DL Red Cell Distribution Width 16.2 H 10.0-14.5 % Platelet Count 404 H 130-400 10^3/uL Mean Platelet Volume 9.6 7.4-10.4 FL Neutrophils (%) (Auto) 66 42-75 % Lymphocytes (%) (Auto) 24 12-44 % Monocytes (%) (Auto) 7 0-12 % Eosinophils (%) (Auto) 1 0-10 % Basophils (%) (Auto) 1 0-10 % Neutrophils # (Auto) 6.9 1.8-7.8 X 10^3 Lymphocytes # (Auto) 2.5 1.0-4.0 X 10^3 Monocytes # (Auto) 0.7 0.0-1.0 X 10^3 Eosinophils # (Auto) 0.1 0.0-0.3 10^3/uL Basophils # (Auto) 0.1 0.0-0.1 10^3/uL Sodium Level 126 L 135-145 MMOL/L Potassium Level 6.4 H 3.6-5.0 MMOL/L Chloride Level 95 L 98-107 MMOL/L Carbon Dioxide Level 26 21-32 MMOL/L Anion Gap 5 5-14 MMOL/L Blood Urea Nitrogen 13 7-18 MG/DL Creatinine 0.81 0.60-1.30 MG/DL Estimat Glomerular Filtration Rate > 60 BUN/Creatinine Ratio 16 Glucose Level 108 H 70-105 MG/DL Calcium Level 10.2 H 8.5-10.1 MG/DL Total Bilirubin 0.7 0.1-1.0 MG/DL Aspartate Amino Transf (AST/SGOT) 42 H 5-34 U/L Alanine Aminotransferase (ALT/SGPT) 12 0-55 U/L Alkaline Phosphatase 72 40-136 U/L Total Protein 7.4 6.4-8.2 GM/DL Albumin 3.8 3.2-4.5 GM/DL Lipase < 4 L 8-78 U/L Urine Color YELLOW Urine Clarity SLIGHTLY CLOUDY Urine pH 6.5 5-9 Urine Specific [place] 1.015 L 1.016-1.022 Urine Protein NEGATIVE NEGATIVE Urine Glucose (UA) NEGATIVE NEGATIVE Urine Ketones 1+ H NEGATIVE Urine Nitrite NEGATIVE NEGATIVE Urine Bilirubin NEGATIVE NEGATIVE Urine Urobilinogen NORMAL NORMAL MG/DL Urine Leukocyte Esterase NEGATIVE NEGATIVE Urine RBC (Auto) NEGATIVE NEGATIVE Urine RBC NONE /HPF Urine WBC NONE /HPF Urine Squamous Epithelial Cells RARE /HPF Urine Crystals PRESENT H /LPF Urine Amorphous Sediment FEW DUARTE URATES H /LPF Urine Bacteria NONE /HPF Urine Casts NONE /LPF Urine Mucus TRACE /LPF Urine Culture Indicated NO My Orders Orders - ALFREDO JOSÉ MAGNETO ELECTRICIAN Cbc With Automated Diff (10/31/16 15:50) Comprehensive Metabolic Panel (10/31/16 15:50) Lipase (10/31/16 15:50) Ua Culture If Indicated (10/31/16 15:50) Saline Lock/Iv-Start (10/31/16 15:50) Ct Abdomen/Pelvis Wo (10/31/16 15:50) Ns Iv 500 Ml (Sodium Chloride 0.9%) (10/31/16 16:00) Ondansetron Injection (Zofran Injectio (10/31/16 16:00) Ketorolac Injection (Toradol Injection) (10/31/16 16:15) Medications Given in ED Current Medications Medications Dose Ordered Sig/Perez Route Start Time Stop Time Status Last Admin Dose Admin Ketorolac Tromethamine 30 mg ONCE ONCE IVP 10/31/16 16:15 10/31/16 16:16 DC 10/31/16 16:28 30 MG Ondansetron HCl 4 mg ONCE ONCE IVP 10/31/16 16:00 10/31/16 16:01 DC 10/31/16 16:28 4 MG Vital Signs/I&O Vital Sign - Last 12Hours 10/31/16 16:14 Temp 99.0 Pulse 75 Resp 16 B/P (MAP) 135/94 Pulse Ox 96 Progress Note : Progress Note 1700--the potassium is elevated at 6.4. I did call the lab and they state that this was a hemolyzed sample and they will be down to redraw. 1750-patient states that she is tired and would like to go home. I did discuss with her the risks of leaving with a truly elevated potassium. Lab has been unable to obtain a redraw as of yet. Patient states that she is not interested in waiting for this repeat chemistry panel. I discussed with her that if her potassium is high this can lead to arrhythmias or an irregular heartbeat and but she states she would still like to leave. She will sign out AGAINST MEDICAL ADVICE. Diagnostic Imaging Diagonstic Imaging: CT Comments NAME: [facility] REC#: [id number] PT STATUS: REG ER : 1940 PHYSICIAN: ALFREDO JOSÉ MAGNETO ELECTRICIAN ADMIT DATE: 10/31/16/ER Draft Date of Exam:10/31/16 CT ABDOMEN/PELVIS WO PROCEDURE: CT abdomen and pelvis without contrast. TECHNIQUE: Multiple contiguous axial images were obtained through the abdomen and pelvis without the use of intravenous contrast. INDICATION: Left-sided abdominal pain x2 days. CORRELATION STUDY: 01/21/2016. FINDINGS: Lung bases demonstrate no acute abnormality. Tortuous course of the distal descending thoracic aorta. Small hiatal hernia suggested. The unenhanced liver, gallbladder, spleen, and adrenal glands are unremarkable. Fatty atrophic changes throughout the pancreas. Kidneys and collecting systems are unremarkable. The abdominal aorta is normal in contour with mild wall calcification. Surgical change of the abdomen including a right-sided colostomy. Herniated peristomal fat is present, unchanged. Calcification in the right lower quadrant may be postoperative. Surgical changes with apparent likely mesh in the abdominal wall. There are likely adhesed loops of bowel without abnormally dilated loop of bowel to suggest underlying obstructive process. No definitive inflammation. No abnormal ascites. Very slight stranding of the subcutaneous tissues in the left abdominal wall is unchanged. Urinary bladder is unremarkable. Uterus is absent. Rightward curvature of the lumbar spine. Multiple compressed thoracic vertebral bodies noted with bony demineralization. Multilevel prior thoracic and lumbar kyphoplasty changes are noted. Prior surgical changes in the proximal right femur. IMPRESSION: 1. Negative for acute abnormality about the abdomen and/or pelvis on noncontrast imaging. If continued concern, postcontrast imaging recommended. 2. Postop changes of the abdomen with partial colectomy and right lower quadrant colostomy. Parastomal hernia. No obstruction or inflammation suggested. Dictated on workstation # [id number] Dict: 10/31/16 1656 Trans: 10/31/16 1740 [id number] Interpreted by: HUMA LOVE DO Electronically signed by: Departure Impression Impression: Primary Impression: Abdominal discomfort Disposition: 07 AGAINST MEDICAL ADVICE Condition: Against Medical Advice Departure-Patient Inst. Referrals: TORIBIO FOFANA DO (PCP/Family) Primary Care Physician ALFREDO JOSÉ APRN Oct 31, 2016 15:59
[2016-10-31] MEDS ORDERED: ONDANSETRON 4 MG/2 ML (SDV) Z0FRAN IVP ONE (16:00)
[2016-10-31] MEDS ORDERED: NS IV 500 ML 500 ML IV SCH (16:00)
[2016-10-31 16:14] VITALS: BP 135/94
[2016-10-31 16:15] LABS: BASOPHILS # (AUTO) 0.1 10^3/uL (0.0-0.1); BASOPHILS % (AUTO) 1 % (0-10); EOSINOPHILS # (AUTO) 0.1 10^3/uL (0.0-0.3); EOSINOPHILS % (AUTO) 1 % (0-10); LYMPHOCYTES # (AUTO) 2.5 X 10^3 (1.0-4.0); LYMPHOCYTES % (AUTO) 24 % (12-44); MEAN CORPUSCULAR HEMOGLOBIN 29 PG (25-34); MEAN CORPUSCULAR HGB CONC 34 G/DL (32-36); MEAN CORPUSCULAR VOLUME 84 FL (80-99); MEAN PLATELET VOLUME 9.6 FL (7.4-10.4); MONOCYTES # (AUTO) 0.7 X 10^3 (0.0-1.0); MONOCYTES % (AUTO) 7 % (0-12); NEUTROPHILS # (AUTO) 6.9 X 10^3 (1.8-7.8); NEUTROPHILS % (AUTO) 66 % (42-75); PLATELET COUNT 404 10^3/uL (130-400); RED BLOOD COUNT 4.71 10^6/uL (4.35-5.85); RED CELL DISTRIBUTION WIDTH 16.2 % (10.0-14.5); WHITE BLOOD COUNT 10.3 10^3/uL (4.3-11.0)
[2016-10-31] MEDS ORDERED: KETOROLAC 30 MG/ML VIAL IVP ONE (16:15)
[2016-10-31 16:32] LABS: ALANINE AMINOTRANSFERASE 12 U/L (0-55); ALBUMIN 3.8 GM/DL (3.2-4.5); ANION GAP 5 MMOL/L (5-14); ASPARTATE AMINO TRANSFERASE 42 U/L (5-34); BILIRUBIN,TOTAL 0.7 MG/DL (0.1-1.0); BLOOD UREA NITROGEN 13 MG/DL (7-18); BUN/CREATININE RATIO 16; CALCIUM 10.2 MG/DL (8.5-10.1); CARBON DIOXIDE 26 MMOL/L (21-32); CHLORIDE 95 MMOL/L (98-107); CREATININE SERUM 0.81 MG/DL (0.60-1.30); GFR ESTIMATED > 60; GLUCOSE 108 MG/DL (70-105); LIPASE < 4 U/L (8-78); SODIUM 126 MMOL/L (135-145); TOTAL PROTEIN 7.4 GM/DL (6.4-8.2)
[2016-10-31 17:34] LABS: BILIRUBIN,URINE NEGATIVE (NEGATIVE); KETONES,URINE 1+ (NEGATIVE); LEUKOCYTE ESTERASE ,URINE NEGATIVE (NEGATIVE); NITRITE,URINE NEGATIVE (NEGATIVE); PH,URINE 6.5 (5-9); PROTEIN,URINE NEGATIVE (NEGATIVE); UROBILINOGEN,URINE NORMAL (NORMAL)
--- NOTE | 2016-10-31 17:41 | Diagnostic Imaging Report ---
PROCEDURE: CT abdomen and pelvis without contrast. TECHNIQUE: Multiple contiguous axial images were obtained through the abdomen and pelvis without the use of intravenous contrast. INDICATION: Left-sided abdominal pain x2 days. CORRELATION STUDY: 01/21/2016. FINDINGS: Lung bases demonstrate no acute abnormality. Tortuous course of the distal descending thoracic aorta. Small hiatal hernia suggested. The unenhanced liver, gallbladder, spleen, and adrenal glands are unremarkable. Fatty atrophic changes throughout the pancreas. Kidneys and collecting systems are unremarkable. The abdominal aorta is normal in contour with mild wall calcification. Surgical change of the abdomen including a right-sided colostomy. Herniated peristomal fat is present, unchanged. Calcification in the right lower quadrant may be postoperative. Surgical changes with apparent likely mesh in the abdominal wall. There are likely adhesed loops of bowel without abnormally dilated loop of bowel to suggest underlying obstructive process. No definitive inflammation. No abnormal ascites. Very slight stranding of the subcutaneous tissues in the left abdominal wall is unchanged. Urinary bladder is unremarkable. Uterus is absent. Rightward curvature of the lumbar spine. Multiple compressed thoracic vertebral bodies noted with bony demineralization. Multilevel prior thoracic and lumbar kyphoplasty changes are noted. Prior surgical changes in the proximal right femur. IMPRESSION: 1. Negative for acute abnormality about the abdomen and/or pelvis on noncontrast imaging. If continued concern, postcontrast imaging recommended. 2. Postop changes of the abdomen with partial colectomy and right lower quadrant colostomy. Parastomal hernia. No obstruction or inflammation suggested. Dictated by: Dictated on workstation # [id number]
[2016-10-31 17:42] LABS: SQUAMOUS EPITHELIAL CELL,UR RARE /HPF
== END 2016-10-31 17:57 | disposition left against medical advice (07) ==
LOC: EDUNIT# 15:47 → ER 15:49
DX: R10.30 Lower abdominal pain, unspecified (principal); I25.10 Atherosclerotic heart disease of native coronary artery without angina pectoris; J44.9 Chronic obstructive pulmonary disease, unspecified; I10 Essential (primary) hypertension; M81.0 Age-related osteoporosis without current pathological fracture; K21.9 Gastro-esophageal reflux disease without esophagitis; E03.9 Hypothyroidism, unspecified; F41.9 Anxiety disorder, unspecified; F32.9 Major depressive disorder, single episode, unspecified; Z93.3 Colostomy status; Z87.19 Personal history of other diseases of the digestive system; Z86.718 Personal history of other venous thrombosis and embolism; Z82.49 Family history of ischemic heart disease and other diseases of the circulatory system; Z79.82 Long term (current) use of aspirin; Z90.49 Acquired absence of other specified parts of digestive tract; Z95.5 Presence of coronary angioplasty implant and graft; Z90.710 Acquired absence of both cervix and uterus; Z90.89 Acquired absence of other organs
CPT/HCPCS: 36415; 51701; 74176; 80053; 81000; 83690; 85025

== ENCOUNTER → 2016-11-08 | Outpatient (CLI) | payer MEDICARE, MEDICAID ==
[~2016-11-08] MED LIST changes: +ALPR0.5T7 PO; +ASPI-983 PO; +CIPR500T4 PO; -DICY10CA12; +HYDR-3820 PO; +LEVO112T55 PO; -PREG75CA; +PREG75CA PO; +SUCR1TAB PO
--- NOTE | 2016-11-08 19:56 | Diagnostic Imaging Report ---
AP view of the pelvis. INDICATION: Fall. FINDINGS: There is intramedullary nailing in the right femur seen with deformity at the intertrochanteric region probably related to prior intertrochanteric fracture. No acute fracture is seen. Kyphoplasty change at L5 level is seen with scoliosis convex to the right in the lower lumbar spine noted. Mild degenerative changes of the SI joints and the hip joint seen. IMPRESSION: No acute process. Dictated by: Dictated on workstation # [id number]
== END ==
LOC: RAD 15:15
PROVIDERS: ATTEND Internal Medicine
DX: S79.911A Unspecified injury of right hip, initial encounter (principal); W19.XXXA Unspecified fall, initial encounter; Y99.8 Other external cause status

== ENCOUNTER 2016-11-09 07:04 | Inpatient (IN) | payer MEDICARE, MEDICAID ==
[~2016-11-09] VITALS: Ht 152.4 cm; Wt 74.0 kg
[2016-11-09] VITALS (18 sets, daily range): BP systolic 107–184; BP diastolic 80–115
[~2016-11-09 07:04] MED LIST changes: -ALPR0.5T7 PO; -ASPI-983 PO; -CIPR500T4 PO; -HYDR-3820 PO; -LEVO112T55 PO; +METO-370 PO; -SUCR1TAB PO
[2016-11-09] MEDS ORDERED: NS IV 1000 ML 1,000 ML IV ONE (07:10)
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
[2016-11-09] MEDS ORDERED: methylPREDNISolone 125 MG (Solu-MEDROL) VIAL IVP ONE (07:15)
[2016-11-09] MEDS ORDERED: RT-ALBUTEROL/IPRATROPIUM 3 ML (DUONEB) VIAL INH ONE (07:15)
[2016-11-09] MEDS ORDERED: RT-IPRATROPIUM (ATROVENT) 0.5MG/2.5ML AMP IH ONE (07:15)
--- NOTE | 2016-11-09 08:04 | Diagnostic Imaging Report ---
INDICATION: Fall, fatigue and weakness. TECHNIQUE: Single view chest 7:17 AM. CORRELATION STUDY: 06/04/2016 FINDINGS: Heart size and vasculature within normal limits. Slight fullness of the right chet appearing relatively stable given position. This what appears to be likely chronic, senescent type change about the lung parenchyma. No definitive infiltrate. Multilevel kyphoplasty changes are present. IMPRESSION: 1. Stable chest with chronic changes. No acute abnormality. Dictated by: Dictated on workstation # [id number]
--- NOTE | 2016-11-09 08:05 | ED General ---
General Chief Complaint: Respiratory Problems Stated Complaint: LEG PAIN,WEAKNESS Nursing Triage Note: ARRIVED VIA AMBULANCE WITH COMPLAINTS OF SOA AND BILAT LEG PAIN. Nursing Sepsis Screen: No Definite Risk Source of Information: Patient Exam Limitations: No Limitations History of Present Illness Time Seen by Provider: 07:06 Initial Comments This 76-year-old woman presents to the emergency room in respiratory distress. She was found to be very weak this morning and assisted to the ground by her care provider. EMS has initiated a DuoNeb treatment due to the severe wheezing and dyspnea. Patient appears very dry. She has had a fall more than a week ago and had outpatient pelvis x-rays performed yesterday. She has apparent bruising on her right elbow and her right lateral superior thigh. She complains of pain in the hip and thigh. X-rays were reviewed and were normal. She complains of recent cough and difficulty breathing. She was also seen October 31 for suprapubic pain and urinary frequency. CT scan was performed at that time and was unremarkable for acute problems. She was found to be hyperkalemic with a hemolyzed blood specimen. A redraw was ordered but patient elected to leave AGAINST MEDICAL ADVICE before this could be performed. Allergies and Home Medications Allergies Coded Allergies: No Known Drug Allergies (Unverified , 06/10/15) Home Medications Aspirin 81 Mg Tabec, 81 MG PO DAILY, (Reported) Budesonide/Formoterol Fumarate 10.2 Gm Hfa.aer.ad, 2 PUFF INH BID, (Reported) Clopidogrel Bisulfate 75 Mg Tablet, 75 MG PO DAILY, (Reported) LAST FILLED 12-08-15 #30 Cyclosporine 1 Each Droperette, 1 DROP OU BID, (Reported) LAST FILLED 07-16-15 Dicyclomine HCl 10 Mg Capsule, #90 (Reported) Duloxetine HCl 60 Mg Capsule.dr, 60 MG PO DAILY, (Reported) Ezetimibe 10 Mg Tablet, 10 MG PO DAILY, (Reported) Fentanyl 1 Each Patch.td72, #10 (Reported) Lactulose 20 Gm/30 Ml Solution, 30 GM PO QID, #30 Prescribed by: YSABEL ABREU on 03/30/16 0839 Levothyroxine Sodium 100 Mcg Tablet, 100 MCG PO 0630, (Reported) Lorazepam 1 Mg Tablet, 1 MG PO BID, (Reported) Metoprolol Succinate 50 Mg Tab.er.24h, 50 MG PO DAILY, (Reported) Nitroglycerin 0.4 Mg Tab.subl, 0.4 MG SL UD PRN for CHEST PAIN, (Reported) Omeprazole 40 Mg Capsule.dr, 40 MG PO BID, (Reported) Oxycodone HCl/Acetaminophen 1 Each Tablet, 1 TAB PO Q6H PRN for PAIN, (Reported) Polyethylene Glycol 3350 17 Gm Powd.pack, 17 GM PO BID PRN PRN for CONSTIPATION- 1ST LINE, #1 Ref 0 Prescribed by: ASHLEY WATTS on 06/04/16 1502 Prednisone 20 Mg Tab, 20 MG PO BID for 5 Days, #9 Ref 0 Prescribed by: ASHLEY WATTS on 08/26/16 0522 Pregabalin 75 Mg Capsule, #60 (Reported) Ropinirole HCl 1 Mg Tablet, 6 MG PO HS, #30 Prescribed by: LEXUS CHOWDHURY on 04/06/16 1017 Sucralfate 1 Gm/10 Ml Oral.susp, 10 ML PO QID, (Reported) Temazepam 30 Mg Capsule, 30 MG PO HS, (Reported) Tramadol HCl 50 Mg Tablet, 50 MG PO Q4H PRN for MILD PAIN, #30 Prescribed by: YSABEL ABREU on 03/30/16 0839 Constitutional: see HPI, weakness EENTM: no symptoms reported Respiratory: see HPI Cardiovascular: see HPI Gastrointestinal: no symptoms reported Genitourinary: no symptoms reported Musculoskeletal: see HPI Skin: see HPI Psychiatric/Neurological: See HPI Hematologic/Lymphatic: No Symptoms Reported Past Lbjtgap-Roefcd-Rmxwyq Hx Patient Social History Alcohol Use: Denies Use Recreational Drug Use: No Smoking Status: Former Smoker Type Used: Cigarettes Former Smoker, Quit: Mar 26, 1996 Recent Foreign Travel: No Contact w/Someone Who Travel: No Recent Infectious Disease Expo: No Recent Hopitalizations: No Immunizations Up To Date Tetanus Booster (TDap): Unknown PED Vaccines UTD: No Date of Pneumonia Vaccine: Apr 22, 2009 Date of Influenza Vaccine: Mar 30, 2016 Seasonal Allergies Seasonal Allergies: Yes Surgeries History of Surgeries: Yes (COLOSTOMY, KYPHOPLASTY; CARDIAC CATH WITH STENTS X 2 ; EGD/COLONOSCOPIES ) Surgeries: Abdominal, Appendectomy, Bowel Surgery, Cardiac, Coronary Stent, Hysterectomy, Orthopedic, Tonsillectomy Respiratory History of Respiratory Disorde: Yes Respiratory Disorders: COPD Currently Using CPAP: No Currently Using BIPAP: No Cardiovascular History of Cardiac Disorders: Yes (STENTS X2) Cardiac Disorders: Coronary Artery Disease, Deep Vein Thrombosis, Hypertension Neurological History of Neurological Disord: No Neurological Disorders: Vertigo 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 System Hx 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 Disorders: No 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 Genitourinary Genitourinary Disorders: UTI-Chronic Gastrointestinal History of Gastrointestinal Di: Yes (COLOSTOMY; PARASTOMAL HERNIA) Gastrointestinal Disorders: Abdominal Hernia, Gastroesophageal Reflux, Diverticulosis, Esophagitis Musculoskeletal History of Musculoskeletal Dis: Yes (compression fracture status post kyphoplasty) Musculoskeletal Disorders: Osteoporosis, Arthritis, Chronic Back Pain, Fractures Endocrine History of Endocrine Disorders: Yes (HYPOTHYROID) Endocrine Disorders: Hypothyroidsim HEENT History of HEENT Disorders: No HEENT Disorders: Cataract Loss of Vision: Denies Hearing Impairment: Denies Cancer History of Cancer: No Psychosocial History of Psychiatric Problem: Yes Behavioral Health Disorders: Anxiety, Depression Integumentary History of Skin or Integumenta: No Blood Transfusions History of Blood Disorders: Yes (anemia post op epideral site,bld transfusion) Adverse Reaction to a Blood Tr: No Family Medical History Significant Family History: No Pertinent Family Hx Family Medial History: Family history: Hypertension G8 BROTHER Myocardial infarction 19 MOTHER G8 BROTHER Physical Exam-Suspected Sepsis Physical Exam Vital Signs Vital Sign - Last 12Hours 11/09/16 07:04 Temp 98.8 Pulse 137 Resp 18 B/P (MAP) 151/87 Pulse Ox 91 O2 Delivery Room Air O2 Flow Rate 2.00 Capillary Refill : Less Than 3 Seconds Blood Pressure Mean: 108 General Appearance: WD/WN, Moderate Distress HEENT: PERRL/EOMI, Normal ENT Inspection, Other (oropharynx dry) Neck: Normal Inspection, Supple Respiratory: Accessory Muscle Use, Respiratory Distress, Wheezing Cardiovascular: No Edema, No Murmur, Tachycardia Gastrointestinal: Normal Bowel Sounds, Non Tender, Soft Extremity: Normal Capillary Refill, No Pedal Edema, Other (contusion with large area of ecchymosis on the right proximal lateral thigh) Neurologic/Psychiatric: Alert, Oriented x3, No Motor/Sensory Deficits, compensation associate II- XII Norm as Tested, Other (somnolent. No focal deficits. Generalized weakness) Skin: normal color, warm/dry Focused Exam Evaluation Reason for ruling out sepsis: Sepsis possible but no source of infection found yet Time of Focused Exam: 07:50 Respiratory: Lungs Clear, Normal Breath Sounds, No Accessory Muscle Use, No Respiratory Distress, Other (Breathing relaxed on BiPAP) Cardiovascular: No Edema, No Murmur, Tachycardia Capillary Refill: Less Than 3 Seconds Skin: normal color, warm/dry Progress/Results/Core Measures Suspected Sepsis Recent Fever Within 48 Hours: No Infection Criteria Present: Suspected New Infection New/Unexplained Altered Menta: No Sepsis Screen: No Definite Risk Sepsis Diagnosis: SIRS Temperature:98.8 Pulse: 112 Respiratory Rate: 23 Laboratory Tests 11/09/16 08:10: White Blood Count 11.1H Blood Pressure 151 /87 Mean: 108 Laboratory Tests 11/09/16 08:10: Platelet Count 163 11/09/16 08:50: Creatinine 0.68, Total Bilirubin 0.5 Results/Orders Lab Results Laboratory Tests Test 11/09/16 08:10 11/09/16 08:50 11/09/16 09:30 Range/Units White Blood Count 11.1 H 4.3-11.0 10^3/uL Red Blood Count 5.48 4.35-5.85 10^6/uL Hemoglobin 16.1 H 11.5-16.0 G/DL Hematocrit 48 35-52 % Mean Corpuscular Volume 87 80-99 FL Mean Corpuscular Hemoglobin 29 25-34 PG Mean Corpuscular Hemoglobin Concent 34 32-36 G/DL Red Cell Distribution Width 16.4 H 10.0-14.5 % Platelet Count 163 130-400 10^3/uL Mean Platelet Volume 10.1 7.4-10.4 FL Neutrophils (%) (Auto) 54 42-75 % Lymphocytes (%) (Auto) 35 12-44 % Monocytes (%) (Auto) 6 0-12 % Eosinophils (%) (Auto) 5 0-10 % Basophils (%) (Auto) 0 0-10 % Neutrophils # (Auto) 6.0 1.8-7.8 X 10^3 Lymphocytes # (Auto) 3.9 1.0-4.0 X 10^3 Monocytes # (Auto) 0.7 0.0-1.0 X 10^3 Eosinophils # (Auto) 0.6 H 0.0-0.3 10^3/uL Basophils # (Auto) 0.0 0.0-0.1 10^3/uL Sodium Level 133 L 135-145 MMOL/L Potassium Level 3.2 L 3.6-5.0 MMOL/L Chloride Level 101 98-107 MMOL/L Carbon Dioxide Level 24 21-32 MMOL/L Anion Gap 8 5-14 MMOL/L Blood Urea Nitrogen 9 7-18 MG/DL Creatinine 0.68 0.60-1.30 MG/DL Estimat Glomerular Filtration Rate > 60 BUN/Creatinine Ratio 13 Glucose Level 151 H 70-105 MG/DL Calcium Level 9.8 8.5-10.1 MG/DL Total Bilirubin 0.5 0.1-1.0 MG/DL Aspartate Amino Transf (AST/SGOT) 6 5-34 U/L Alanine Aminotransferase (ALT/SGPT) 6 0-55 U/L Alkaline Phosphatase 82 40-136 U/L C-Reactive Protein High Sensitivity 3.35 H 0.00-0.50 MG/DL Total Protein 5.7 L 6.4-8.2 GM/DL Albumin 3.4 3.2-4.5 GM/DL Urine Color YELLOW Urine Clarity VERY CLOUDY H Urine pH 6 5-9 Urine Specific [place] 1.015 L 1.016-1.022 Urine Protein 2+ H NEGATIVE Urine Glucose (UA) NEGATIVE NEGATIVE Urine Ketones NEGATIVE NEGATIVE Urine Nitrite POSITIVE H NEGATIVE Urine Bilirubin NEGATIVE NEGATIVE Urine Urobilinogen NORMAL NORMAL MG/DL Urine Leukocyte Esterase 3+ H NEGATIVE Urine RBC (Auto) 2+ H NEGATIVE Urine RBC NONE /HPF Urine WBC >100 H /HPF Urine Squamous Epithelial Cells RARE /HPF Urine Crystals NONE /LPF Urine Bacteria MODERATE H /HPF Urine Casts NONE /LPF Urine Mucus NEGATIVE /LPF Urine Culture Indicated YES My Orders Orders - RADHA PAREDES MD Ipratropium 0.02% Neb Solution (Atrovent (11/09/16 07:15) Albuterol/Ipra Inhalation Soln (Duoneb I (11/09/16 07:15) Svn Sm Volume Nebulizer Rt-Rfs (11/09/16 07:10) Svn Sm Volume Nebulizer Rt-Rfs (11/09/16 07:10) Bipap Rt-Rfs (11/09/16 07:10) Methylprednisolone Sod Succ (Solu-Medrol (11/09/16 07:15) Saline Lock/Iv-Start (11/09/16 07:10) Ns Iv 1000 Ml (Sodium Chloride 0.9%) (11/09/16 07:10) Cbc With Automated Diff (11/09/16 07:10) Comprehensive Metabolic Panel (11/09/16 07:10) Sputum Culture (11/09/16 07:10) Ua Culture If Indicated (11/09/16 07:10) Chest 1 View, Ap/Pa Only (11/09/16 07:10) O2 (11/09/16 07:10) Saline Lock/Iv-Start (11/09/16 07:10) Vital Signs Adult Sepsis Patie Q1HR (11/09/16 07:10) Remove Rings In Anticipation O (11/09/16 07:10) Lee Cath Insertion (11/09/16 07:53) Fentanyl Injection (Sublimaze Injection (11/09/16 08:30) Femur, Right, 2 Views (11/09/16 08:46) Hs C Reactive Protein (11/09/16 09:02) Urine Culture (11/09/16 09:30) Ceftriaxone Injection (Rocephin Injectio (11/09/16 10:15) Medications Given in ED Current Medications Medications Dose Ordered Sig/Perez Route Start Time Stop Time Status Last Admin Dose Admin Albuterol/ Ipratropium 15 ml ONCE ONCE INH 11/09/16 07:15 11/09/16 07:16 DC 11/09/16 07:32 15 ML Ceftriaxone Sodium 1000 mg/ Sodium Chloride 50 ml @ 100 mls/hr ONCE ONCE IV 11/09/16 10:15 11/09/16 10:44 DC 11/09/16 10:37 100 MLS/HR Fentanyl Citrate 50 mcg ONCE ONCE IVP 11/09/16 08:30 11/09/16 08:31 DC 11/09/16 08:30 50 MCG Ipratropium [place] 0.5 mg ONCE ONCE IH 11/09/16 07:15 11/09/16 07:16 DC 11/09/16 07:32 0.5 MG Methylprednisolone Sodium Succinate 62.5 mg ONCE ONCE IVP 11/09/16 07:15 11/09/16 07:16 DC 11/09/16 07:51 62.5 MG Sodium Chloride 1,000 ml @ 0 mls/hr Q0M ONCE IV 11/09/16 07:10 11/09/16 07:13 DC 11/09/16 07:52 1,000 MLS/HR Vital Signs/I&O Vital Sign - Last 12Hours 11/09/16 11/09/16 11/09/16 11/09/16 07:04 07:04 07:32 09:28 Temp 98.8 Pulse 137 112 117 Resp 18 23 22 B/P (MAP) 151/87 Pulse Ox 91 97 98 O2 Delivery Room Air Nasal Cannula O2 Flow Rate 2.00 32.00 32.00 Capillary Refill : Less Than 3 Seconds Blood Pressure Mean: 108 Progress Note #1: Time: 07:50 Progress Note Patient's workup is in progress. IV was established but blood cannot be drawn. Blood is being drawn now. Patient is receiving IV fluids. She is also receiving an hour-long nebulizer treatment in conjunction with BiPAP. Breathing and wheezing has improved dramatically. She also received Solu- Medrol 62.5 mg IV. She is resting comfortably now. Progress Note #2: Time: 08:42 Progress Note Respiratory status has improved dramatically. Vascular access continues to be a problem. She has a small IV in the right foot through which medications and fluids are being infused. However, labs have not yet been drawn as the IV would not draw and mobile patrol officer have not been able to draw from other peripheral vascular sites. Anesthesia is now attempting an IV. Fentanyl was given for complaints of right hip pain. She has a contusion on the right lateral proximal thigh. X-rays performed yesterday were viewed by me and report reviewed. There were no acute injuries identified. A femur film will be obtained to view the more distal portions of the femur. Progress Note #3: Time: 09:14 Progress Note Work breathing has increased with a trial off of BiPAP. Patient is beginning to wheeze again. BiPAP will be reapplied. Anesthesia has attempted vascular access and has not been successful. The IV in the foot is still working fine and IV fluids are infusing at a rate of 250 mL per hour. Labs were drawn and are pending. Lactic acid and blood cultures could not be performed due to insufficient blood. Progress Note #4: Time: 10:08 Progress Note Urinary tract infection identified by UA. Femur films showed no acute fractures. Rocephin will be initiated for initial antibiotic therapy. Progress Note #5: Time: :17 Progress Note Case reviewed with Dr. Cox who agrees with admission to the ICU with continued BiPAP and treatment for COPD exacerbation. She agrees with Rocephin for initial management of urinary tract infection. She requests a consultation with Dr. Agee. Message was left with Dr. Agee on his phone and his clinic phone regarding consultation. Patient did not technically meets sepsis criteria. Vascular access continues to be a concern. Her present IV is functioning well. Dr. Cox agrees with a PICC line in the ICU. Lactic acid and blood cultures will be obtained when PICC line is established. Diagnostic Imaging Diagonstic Imaging: Xray Plain Films/CT/US/NM/MRI: chest Comments Chest x-ray viewed by me and report reviewed. See report below: NAME: [facility] REC#: [id number] PT STATUS: REG CLI : 1940 PHYSICIAN: TORIBIO FOFANA DO ADMIT DATE: 11/08/16/RAD Draft Date of Exam:11/08/16 PELVIS WITH RIGHT HIP 2-3VIEWS AP view of the pelvis. INDICATION: Fall. FINDINGS: There is intramedullary nailing in the right femur seen with deformity at the intertrochanteric region probably related to prior intertrochanteric fracture. No acute fracture is seen. Kyphoplasty change at L5 level is seen with scoliosis convex to the right in the lower lumbar spine noted. Mild degenerative changes of the SI joints and the hip joint seen. IMPRESSION: No acute process. Dictated on workstation # [id number] Dict: 11/08/16 1658 Trans: 11/08/16 195 [facility] [id number] Interpreted by: YESICA PERES MD Diagonstic Imaging: Xray Plain Films/CT/US/NM/MRI: other (right femur) Comments Right femur x-ray viewed by me and report reviewed. See report below: NAME: [facility] REC#: [id number] PT STATUS: REG ER : 1940 PHYSICIAN: RADHA PAREDES MD ADMIT DATE: 11/09/16/ER Draft Date of Exam:11/09/16 FEMUR, RIGHT, 2 VIEWS INDICATION: Contusion. TECHNIQUE: AP and lateral views of the right femur at 56 hours. CORRELATION STUDY: Imaging from 11/07/2016. FINDINGS: Intramedullary nailing within the right femur is present. Deformity of the intertrochanteric region is noted, likely related to prior fracture. There is a rather prominent protuberance of the lesser trochanter. The distal hardware appears to be intact with 2 fixation screws. No acute bony abnormality about the femoral shaft. Degenerative changes are noted about the knee with joint space narrowing. The soft tissues are unremarkable. IMPRESSION: Negative for acute bony abnormality of the right femur. Internal fixation hardware is present with deformity from prior intertrochanteric femur fracture. Dictated on workstation # [id number] Dict: 11/09/16 1013 Trans: 11/09/16 1031 [id number] Interpreted by: HUMA LOVE DO Departure Communication (Admissions) Time/Spoke to Admitting Phy: 10:[address] Cox. Impression Impression: Primary Impression: Respiratory distress Additional Impressions: COPD exacerbation Urinary tract infection Qualified Codes: N39.0 - Urinary tract infection, site not specified Hypokalemia Hypovolemia Disposition: ADMITTED INPATIENT Condition: Improved Admissions Decision to Admit Reason: Admit from ER (General) Decision to Admit/Date: Nov 09, 2016 Time/Decision to Admit Time: 07:10 Departure-Patient Inst. Referrals: TORIBIO FOFANA DO (PCP/Family) Primary Care Physician RADHA PAREDES MD Nov 09, 2016 08:05
[2016-11-09 08:17] LABS: BASOPHILS % (AUTO) 0 % (0-10); EOSINOPHILS # (AUTO) 0.6 10^3/uL (0.0-0.3); EOSINOPHILS % (AUTO) 5 % (0-10); LYMPHOCYTES # (AUTO) 3.9 X 10^3 (1.0-4.0); LYMPHOCYTES % (AUTO) 35 % (12-44); MEAN CORPUSCULAR HEMOGLOBIN 29 PG (25-34); MEAN CORPUSCULAR HGB CONC 34 G/DL (32-36); MEAN CORPUSCULAR VOLUME 87 FL (80-99); MEAN PLATELET VOLUME 10.1 FL (7.4-10.4); MONOCYTES # (AUTO) 0.7 X 10^3 (0.0-1.0); MONOCYTES % (AUTO) 6 % (0-12); NEUTROPHILS % (AUTO) 54 % (42-75); PLATELET COUNT 163 10^3/uL (130-400); RED BLOOD COUNT 5.48 10^6/uL (4.35-5.85); RED CELL DISTRIBUTION WIDTH 16.4 % (10.0-14.5); WHITE BLOOD COUNT 11.1 10^3/uL (4.3-11.0)
[2016-11-09] MEDS ORDERED: fentaNYL INJECTION 100 MCG/2 ML AMP IVP ONE (08:30)
[2016-11-09 09:20] LABS: ALANINE AMINOTRANSFERASE 6 U/L (0-55); ALBUMIN 3.4 GM/DL (3.2-4.5); ANION GAP 8 MMOL/L (5-14); ASPARTATE AMINO TRANSFERASE 6 U/L (5-34); BILIRUBIN,TOTAL 0.5 MG/DL (0.1-1.0); BLOOD UREA NITROGEN 9 MG/DL (7-18); BUN/CREATININE RATIO 13; CALCIUM 9.8 MG/DL (8.5-10.1); CARBON DIOXIDE 24 MMOL/L (21-32); CHLORIDE 101 MMOL/L (98-107); CREATININE SERUM 0.68 MG/DL (0.60-1.30); GFR ESTIMATED > 60; GLUCOSE 151 MG/DL (70-105); POTASSIUM 3.2 MMOL/L (3.6-5.0); SODIUM 133 MMOL/L (135-145); TOTAL PROTEIN 5.7 GM/DL (6.4-8.2)
[2016-11-09 09:41] LABS: BILIRUBIN,URINE NEGATIVE (NEGATIVE); KETONES,URINE NEGATIVE (NEGATIVE); LEUKOCYTE ESTERASE ,URINE 3+ (NEGATIVE); NITRITE,URINE POSITIVE (NEGATIVE); PH,URINE 6 (5-9); PROTEIN,URINE 2+ (NEGATIVE); UROBILINOGEN,URINE NORMAL (NORMAL)
[2016-11-09 09:53] LABS: SQUAMOUS EPITHELIAL CELL,UR RARE /HPF; WBC,URINE >100 /HPF
[2016-11-09] MEDS ORDERED: cefTRIAXone INJECTION 1,000 MG in NS (IVPB) 50 ML IV ONE (10:15)
--- NOTE | 2016-11-09 10:31 | Diagnostic Imaging Report ---
INDICATION: Contusion. TECHNIQUE: AP and lateral views of the right femur at 0956 hours. CORRELATION STUDY: Imaging from 11/07/2016. FINDINGS: Intramedullary nailing within the right femur is present. Deformity of the intertrochanteric region is noted, likely related to prior fracture. There is a rather prominent protuberance of the lesser trochanter. The distal hardware appears to be intact with 2 fixation screws. No acute bony abnormality about the femoral shaft. Degenerative changes are noted about the knee with joint space narrowing. The soft tissues are unremarkable. IMPRESSION: Negative for acute bony abnormality of the right femur. Internal fixation hardware is present with deformity from prior intertrochanteric femur fracture. Dictated by: Dictated on workstation # [id number]
--- OUTSIDE RECORDS SUMMARY | 2016-11-09 10:42 | XMS REPORT | Clinical Summary ---
Author Author [facility] Organization [facility] Address Unknown Phone Unavailable Care Team Providers Care Firer Retort Name Role Phone PCP Unavailable Source Comments Some departments are not documenting in the electronic medical record. If you do not see the information that you expected, contact Release of Information in the Health Information Management department at [phone] for further assistance in locating additional records.[facility] Allergies Active Allergy Reactions Severity Noted Date [...] emulsion needed. fluticasone (FLONASE) 50 Apply 1 [place] to each Active mcg/actuation nasal spray nostril [...] (coronary artery disease) 06/03/2009 Overview: Hx of [place] 4 yrs ago Depression 06/03/2009 Arthritis 06/03/2009 [...] INFLUENZA VACCINE 11/20/2016 Implants Implanted Type Area Stable Cleaner Device Expiration Model / Identifier Date Serial / Lot Lens-04/22/2004 Other / Implanted: 04/22/2004 (Quantity not / on file) [id number]-14/7/2004 Stent / Implanted: 01/27/2004 by Bobby / MD Karina (Quantity not on file) [id number] Results Not on filefrom Last 3 Months
[2016-11-09] MEDS ORDERED: ONDANSETRON 4 MG/2 ML (SDV) Z0FRAN IV PRN (11:30)
[2016-11-09] MEDS ORDERED: CATHETER FLUSH 10 ML SYR IV PRN (11:30)
[2016-11-09] MEDS ORDERED: fentaNYL INJECTION 100 MCG/2 ML AMP IV PRN (11:30)
--- NOTE | 2016-11-09 11:33 | History & Physical-Hospitalist ---
HPI History of Present Illness: HPI/Chief Complaint CC: SOB HPI: Pt is a 76yoCF who presented to the ER with CC of SOB. She has a known history of COPD and per ER MD report was in severe respiratory distress on arrival. She was placed on BiPAP and her symptoms improved. She was trialed off BiPAP but was unable to tolerate it. When I went ot bedside she was able to answer some yes/no questions but was unable to answer most other questions. She indicated that her symptoms started today and she was feeling better than she was on arrival but would quickly fall back asleep. Source: patient Exam Limitations: clinical condition Date Seen 11/09/16 Time Seen by Provider: 11:15 Attending Physician Mary Cox MD PCP Eliud Brewre DO Referring Physician Date of Admission Nov 09, 2016 at 10:30 Home Medications & Allergies Home Medications Reviewed patient Home Medication Reconciliation Form Allergies Allergies Coded Allergies No Known Drug Allergies (Unverified06/10/15) Past Ochgwbp-Oxknwk-Gtsuvu Hx Patient Social History Alcohol Use: Denies Use Recreational Drug Use: No Smoking Status: Former Smoker Former Smoker, Quit: Mar 26, 1996 Type Used: Cigarettes Recent Foreign Travel: No Contact w/other who traveled: No Recent Hopitalizations: No Recent Infectious Disease Expo: No Immunizations Up To Date Tetanus Booster (TDap): Unknown Pediatric: No Date of Pneumonia Vaccine: Apr 22, 2009 Date of Influenza Vaccine: Mar 30, 2016 Seasonal Allergies Seasonal Allergies: Yes Surgeries Yes (COLOSTOMY, KYPHOPLASTY; CARDIAC CATH WITH STENTS X 2; EGD/COLONOSCOPIES ) Abdominal, Appendectomy, Bowel Surgery, Cardiac, Coronary Stent, Hysterectomy, Orthopedic, Tonsillectomy Respiratory Yes Asthma, COPD, Pneumonia Currently Using CPAP: No Currently Using BIPAP: No Cardiovascular Yes (STENTS X2) Coronary Artery Disease, Deep Vein Thrombosis, Hypertension Neurological No Vertigo 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 System Hx 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 Disorders: No 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 Genitourinary UTI-Chronic Gastrointestinal Yes (COLOSTOMY; PARASTOMAL HERNIA) Abdominal Hernia, Gastroesophageal Reflux, Diverticulosis, Esophagitis Musculoskeletal Yes (compression fracture status post kyphoplasty) Osteoporosis, Arthritis, Chronic Back Pain, Fractures Endocrine History of Endocrine Disorders: Yes (HYPOTHYROID) Endocrine Disorders: Hypothyroidsim HEENT History of HEENT Disorders: No HEENT Disorders: Cataract Loss of Vision: Denies Hearing Impairment: Denies Cancer No Psychosocial History of Psychiatric Problem: Yes Behavioral Health Disorders: Anxiety, Depression Integumentary History of Skin or Integumenta: No Blood Transfusions History of Blood Disorders: Yes (anemia post op epideral site,bld transfusion) Adverse Reaction to a Blood Tr: No Family Medical History Family Hx: Family history: Hypertension G8 BROTHER Myocardial infarction 19 MOTHER G8 BROTHER Review of Systems ROS-Unable to Obtain: Clinical condition Constitutional: no symptoms reported Physical Exam Physical Exam Vital Signs Vital Sign - Last 12Hours 11/09/16 11/09/16 07:04 11:30 Temp 98.8 Pulse 137 Resp 18 B/P (MAP) 151/87 Pulse Ox 91 O2 Delivery Room Air O2 Flow Rate 2.00 FiO2 32 Capillary Refill : Less Than 3 Seconds General Appearance: Chronically ill HEENT: Other (BiPAP in place) Neck: Non Tender, Supple Respiratory: No Accessory Muscle Use, Wheezing Cardiovascular: Regular Rate, Rhythm, No Edema, No JVD, No Murmur, Tachycardia Gastrointestinal: Non Tender, Soft, Other (colostomy) Extremity: Normal Capillary Refill, Non Tender, No Calf Tenderness, No Pedal Edema Neurologic/Psychiatric: Alert, Other (easily arousable to voice, protecting airway but falls asleep quickly after conversation) Skin: Ecchymosis (on right hip) Results Results/Procedures Lab Laboratory Tests 11/09/16 08:10 11/09/16 08:50 Assessment/Plan Admission Diagnosis Acute Respiratory Failure Assessment and Plan See Problems Diagnosis/Problems Diagnosis/Problems (1) Acute respiratory failure Status: Acute Assessment & Plan: Continue on BiPAP ABG reassuring Will hold home benzos as able given her current sedation MAT protocol Continue steroids Pulm consulted, appreciate recs (2) COPD exacerbation Status: Acute Assessment & Plan: Continue Steroids, DuoNebs MAT Protocol (3) Urinary tract infection Status: Acute Assessment & Plan: Does not meet sepsis criteria Started on Rocephin in ED Will continue Await cultures Had difficult time getting access, order for PICC placed Qualifiers: Qualified Codes: N39.0 - Urinary tract infection, site not specified (4) Hypokalemia Status: Acute Assessment & Plan: K Protocol (5) Chronic back pain Assessment & Plan: Review of records indicates low history of low back pain As above will hold home pain meds until more alert Qualifiers: (6) Colostomy care Status: Chronic Assessment & Plan: Unsure why she has colostomy, pt unable to tell me Routine care (7) Prophylactic measure Assessment & Plan: Lovenox NS @ 100ml/hr CHRISO MARY COX MD Nov 09, 2016 11:33
[2016-11-09 11:34] LABS: ABG BASE EXCESS 0.5 MMOL/L (-2.5-2.5); ABG HCO3 25 MMOL/L (23-27); ABG OXYGEN SATURATION 98 % (94-100); ABG PCO2 38 MMHG (35-45); ABG PH 7.42 (7.37-7.43); ABG PO2 89 MMHG (79-93); ABG TCO2 25.8 MMOL/L (21.0-31.0)
[2016-11-09 11:38] LABS: ALLENS TEST YES-POS; PATIENT TEMP 97.4
[2016-11-09] MEDS: NS W/KCL 20 MEQ/L 1,000 ML IV SCH ×3 (12:16→22:59)
[2016-11-09] MEDS ORDERED: CIPR500T4 PO (14:03)
[2016-11-09] MEDS ORDERED: ASPI-983 PO (14:03)
[2016-11-09] MEDS ORDERED: PANT40TA3 PO (14:03)
[2016-11-09] MEDS ORDERED: ALPR0.5T7 PO (14:03)
[2016-11-09] MEDS ORDERED: ROPI4TAB3 PO (14:03)
[2016-11-09] MEDS ORDERED: LEVO112T55 PO (14:03)
[2016-11-09] MEDS ORDERED: HYDR-3820 PO (14:03)
[2016-11-09] MEDS ORDERED: GABA600T2 PO (14:03)
[2016-11-09] MEDS ORDERED: SUCR1TAB PO (14:03)
[2016-11-09] MEDS: RT-ALBUTEROL/IPRATROPIUM 3 ML (DUONEB) VIAL INH SCH ×2 (14:30→20:56)
--- NOTE | 2016-11-09 14:47 | Diagnostic Imaging Report ---
INDICATION: PICC line placement EXAMINATION: Portable chest at 2:26 PM Left upper extremity PICC line tip projects over the left innominate vein at the innominate confluence.. Heart size and pulmonary vascularity are normal. Lungs are clear. There are no effusions or pneumothoraces. IMPRESSION: PICC line tip projects over the innominate confluence. No acute abnormality seen. Dictated by: Dictated on workstation # [id number]
[2016-11-09] MEDS: methylPREDNISolone 40 MG/ML (Solu-MEDROL) VIAL IV SCH ×3 (15:00→23:50)
[2016-11-09] MEDS: ENOXAPARIN 40 MG/0.4 ML (LOVENOX) SYR SC SCH (15:00)
[2016-11-09] MEDS ORDERED: DICYCLOMINE 10 MG (BENTYL) CAP PO PRN (15:15)
[2016-11-09] MEDS ORDERED: NITROGLYCERIN 0.4 MG SL TABS BTL 25'S SL PRN (15:15)
--- NOTE | 2016-11-09 15:40 | Diagnostic Imaging Report ---
Portable upright radiograph of the chest. INDICATION: PICC line adjustment. FINDINGS: Left PICC line is seen with the tip at the SVC level. The left lung base demonstrates mild atelectasis. The heart size is normal. No significant effusion. No pneumothorax. There is cement seen in the mid and lower thoracic spine levels suggestive of prior kyphoplasties. IMPRESSION: The left PICC line now is terminating at the SVC level. Minimal left basilar atelectasis. Dictated by: Dictated on workstation # [id number]
[2016-11-09] MEDS: SUCRALFATE 1 GM (CARAFATE) TAB PO SCH ×2 (16:03→21:32)
[2016-11-09] MEDS: RT-ADVAIR HFA 115/21 MCG PER PUFF IH SCH (20:56)
[2016-11-09] MEDS: LORazepam 1 MG (ATIVAN) TAB PO SCH (21:31)
[2016-11-09] MEDS: GABAPENTIN 600 MG (NEURONTIN) TAB PO SCH (21:32)
[2016-11-09] MEDS: HYDROcodone/APAP 10 MG/325 MG (LORTAB) TAB PO PRN (21:32)
[2016-11-09] MEDS: rOPINIRole 1 MG (REQUIP) TABLET PO SCH (21:32)
[2016-11-09] MEDS: PREGABALIN 75 MG (LYRICA) CAP PO SCH (21:32)
[2016-11-10] VITALS (11 sets, daily range): BP systolic 131–159; BP diastolic 61–112
[2016-11-10] MEDS: RT-ALBUTEROL/IPRATROPIUM 3 ML (DUONEB) VIAL INH SCH ×4 (03:11→21:52)
[2016-11-10 04:59] LABS: BASOPHILS % (AUTO) 0 % (0-10); EOSINOPHILS % (AUTO) 0 % (0-10); LYMPHOCYTES # (AUTO) 0.6 X 10^3 (1.0-4.0); LYMPHOCYTES % (AUTO) 13 % (12-44); MEAN CORPUSCULAR HEMOGLOBIN 29 PG (25-34); MEAN CORPUSCULAR HGB CONC 33 G/DL (32-36); MEAN CORPUSCULAR VOLUME 87 FL (80-99); MEAN PLATELET VOLUME 9.5 FL (7.4-10.4); MONOCYTES # (AUTO) 0.1 X 10^3 (0.0-1.0); MONOCYTES % (AUTO) 2 % (0-12); NEUTROPHILS # (AUTO) 3.9 X 10^3 (1.8-7.8); NEUTROPHILS % (AUTO) 85 % (42-75); PLATELET COUNT 274 10^3/uL (130-400); RED CELL DISTRIBUTION WIDTH 15.9 % (10.0-14.5); WHITE BLOOD COUNT 4.6 10^3/uL (4.3-11.0)
[2016-11-10] MEDS: PANTOPRAZOLE 40 MG (PROTONIX) TAB PO SCH (05:04)
[2016-11-10] MEDS: SUCRALFATE 1 GM (CARAFATE) TAB PO SCH ×4 (05:04→21:42)
[2016-11-10] MEDS: LEVOTHYROXINE 112 MCG (LEVOTHROID) TAB PO SCH (05:04)
[2016-11-10] MEDS: methylPREDNISolone 40 MG/ML (Solu-MEDROL) VIAL IV SCH (05:04)
[2016-11-10] MEDS: HYDROcodone/APAP 10 MG/325 MG (LORTAB) TAB PO PRN ×2 (05:05→15:55)
[2016-11-10 05:30] LABS: ALANINE AMINOTRANSFERASE 6 U/L (0-55); ALBUMIN 3.3 GM/DL (3.2-4.5); ANION GAP 8 MMOL/L (5-14); ASPARTATE AMINO TRANSFERASE 9 U/L (5-34); BILIRUBIN,TOTAL 0.3 MG/DL (0.1-1.0); BLOOD UREA NITROGEN 11 MG/DL (7-18); BUN/CREATININE RATIO 18; CALCIUM 9.4 MG/DL (8.5-10.1); CARBON DIOXIDE 21 MMOL/L (21-32); CHLORIDE 105 MMOL/L (98-107); CREATININE SERUM 0.61 MG/DL (0.60-1.30); GFR ESTIMATED > 60; GLUCOSE 189 MG/DL (70-105); MAGNESIUM 1.7 MG/DL (1.8-2.4); POTASSIUM 3.9 MMOL/L (3.6-5.0); SODIUM 134 MMOL/L (135-145); TOTAL PROTEIN 5.8 GM/DL (6.4-8.2)
[2016-11-10] MEDS: NS W/KCL 20 MEQ/L 1,000 ML IV SCH (05:53)
[2016-11-10] MEDS: MAGNESIUM 1 GM/100 ML IVPB 100 ML IV SCH ×2 (05:53→07:03)
[2016-11-10] MEDS ORDERED: POTASSIUM CL 10MEQ/50ML IVPB 50 ML IV SCH (06:00)
[2016-11-10] MEDS ORDERED: KCL 20 MEQ TAB (K-DUR) PO SCH (06:00)
[2016-11-10] MEDS ORDERED: MAGNESIUM 1 GM/100 ML IVPB 100 ML IV SCH (06:00)
--- NOTE | 2016-11-10 06:08 | Pulmonary Consultation ---
History of Present Illness History of Present Illness Date of Consultation 11/10/16 06:02 Time Seen by Provider: 06:02 Date of Admission History of Present Illness 76yo with hx of COPD presented to ED secondary to worsening SOB.On set was yesterday. Pt was admitted to ICU and placed on BiPAP which improved symptoms. Pt is now only requiring a 2 liter NC and is feeling much better. Allergies and Home Medications Allergies Coded Allergies: No Known Drug Allergies (Unverified , 06/10/15) Home Medications Alprazolam 0.5 Mg Tablet, 0.5 MG PO QID PRN for ANXIETY, (Reported) Budesonide/Formoterol Fumarate 10.2 Gm Hfa.aer.ad, 2 PUFF INH BID, (Reported) LAST FILLED 02-24-16 Ciprofloxacin HCl 500 Mg Tablet, 500 MG PO BID, (Reported) 7 DAY THERAPY FILLED 11-02-16 Clopidogrel Bisulfate 75 Mg Tablet, 75 MG PO DAILY, (Reported) LAST FILLED 10-01-16 #30 Dicyclomine HCl 10 Mg Capsule, 10 MG PO TID PRN for DISCOMFORT, (Reported) Duloxetine HCl 60 Mg Capsule.dr, 60 MG PO DAILY, (Reported) Ezetimibe 10 Mg Tablet, 10 MG PO DAILY, (Reported) LAST FILLED #30 10-01-16 Gabapentin 600 Mg Tablet, 600 MG PO BID, (Reported) Hydrocodone/Acetaminophen 1 Each Tablet, 1 TAB PO Q4H PRN for PAIN-MODERATE, ( Reported) Levothyroxine Sodium 112 Mcg Tablet, 112 MCG PO DAILY, (Reported) Lorazepam 1 Mg Tablet, 1 MG PO BID, (Reported) Metoprolol Succinate 50 Mg Tab.er.24h, 50 MG PO DAILY, (Reported) Nitroglycerin 0.4 Mg Tab.subl, 0.4 MG SL UD PRN for CHEST PAIN, (Reported) Omeprazole 40 Mg Capsule.dr, 40 MG PO BID, (Reported) Pantoprazole Sodium 40 Mg Tablet.dr, 40 MG PO DAILY, (Reported) Pregabalin 75 Mg Capsule, 75 MG PO BID, (Reported) Ropinirole HCl 4 Mg Tablet, 8 MG PO HS, (Reported) TAKES 2 (4MG) TABLETS Sucralfate 1 Gm Tablet, 1 GM PO ACHS, (Reported) Temazepam 30 Mg Capsule, 30 MG PO HS, (Reported) Past Rrjjjkb-Ocuvse-Mnkhzo Hx Patient Social History Alcohol Use: Denies Use Recreational Drug Use: No Smoking Status: Former Smoker Type Used: Cigarettes Former Smoker, Quit: Mar 26, 1996 Recent Foreign Travel: No Contact w/Someone Who Travel: No Recent Infectious Disease Expo: No Recent Hopitalizations: No Immunizations Up To Date Tetanus Booster (TDap): Unknown PED Vaccines UTD: No Date of Pneumonia Vaccine: Apr 22, 2009 Date of Influenza Vaccine: Mar 30, 2016 Seasonal Allergies Seasonal Allergies: Yes Surgeries History of Surgeries: Yes (COLOSTOMY, KYPHOPLASTY; CARDIAC CATH WITH STENTS X 2 ; EGD/COLONOSCOPIES ) Surgeries: Abdominal, Appendectomy, Bowel Surgery, Cardiac, Coronary Stent, Hysterectomy, Orthopedic, Tonsillectomy Respiratory History of Respiratory Disorde: Yes Respiratory Disorders: COPD Currently Using CPAP: No Currently Using BIPAP: No Cardiovascular History of Cardiac Disorders: Yes (STENTS X2) Cardiac Disorders: Coronary Artery Disease, Deep Vein Thrombosis, Hypertension Neurological History of Neurological Disord: No Neurological Disorders: Vertigo 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 System Hx 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 Disorders: No 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: Hysterectomy Genitourinary Genitourinary Disorders: UTI-Chronic Gastrointestinal History of Gastrointestinal Di: Yes (COLOSTOMY; PARASTOMAL HERNIA) Gastrointestinal Disorders: Abdominal Hernia, Gastroesophageal Reflux, Diverticulosis, Esophagitis Musculoskeletal History of Musculoskeletal Dis: Yes (compression fracture status post kyphoplasty) Musculoskeletal Disorders: Osteoporosis, Arthritis, Chronic Back Pain, Fractures Endocrine History of Endocrine Disorders: Yes (HYPOTHYROID) Endocrine Disorders: Hypothyroidsim HEENT History of HEENT Disorders: No HEENT Disorders: Cataract Loss of Vision: Denies Hearing Impairment: Denies Cancer History of Cancer: No Psychosocial History of Psychiatric Problem: Yes Behavioral Health Disorders: Anxiety, Depression Integumentary History of Skin or Integumenta: No Blood Transfusions History of Blood Disorders: Yes (anemia post op epideral site,bld transfusion) Adverse Reaction to a Blood Tr: No Family Medical History Family Medial History: Family history: Hypertension G8 BROTHER Myocardial infarction 19 MOTHER G8 BROTHER Review of Systems Time Seen by Provider: 06:24 Constitutional: Weakness, Malaise, No: Fever, Chills, Sweats, Other Respiratory: Cough, Dry, Shortness of breath, SOB with excertion, Wheezing Cardiovascular: Paroxysmal Noc. Dyspnea, No: Chest Pain, Palpitations, Orthopnea, Edema, Lt Headedness, Other Gastrointestinal: No: Nausea, Vomiting, Abdominal Pain, Diarrhea, Constipation , Melena, Hematochezia, Other Genitourinary: Incontinence Neurological: Weakness, Confusion Exam Exam Vital Signs Date Time Temp Pulse Resp B/P (MAP) Pulse Ox O2 Delivery O2 Flow Rate FiO2 11/10/16 04:00 99 Nasal Cannula 2.00 11/10/16 03:13 98 Nasal Cannula 3.00 11/10/16 02:00 98 22 159/85 100 Nasal Cannula 2.00 11/10/16 01:00 98 22 143/84 96 Nasal Cannula 2.00 11/10/16 01:00 101 11/10/16 00:00 99 Nasal Cannula 2.00 11/10/16 00:00 97.3 99 23 149/86 97 Nasal Cannula 2.00 11/09/16 23:00 102 23 129/91 97 Nasal Cannula 2.00 11/09/16 22:00 111 25 107/85 99 Nasal Cannula 2.00 11/09/16 21:00 102 25 184/93 100 Nasal Cannula 2.00 11/09/16 20:56 99 Nasal Cannula 3.00 11/09/16 20:00 99 Nasal Cannula 2.00 11/09/16 20:00 97.9 104 27 176/109 100 Nasal Cannula 2.00 11/09/16 19:00 114 11/09/16 19:00 113 156/115 100 Nasal Cannula 2.00 11/09/16 18:00 117 18 156/90 100 NIV Bilevel 32.00 11/09/16 17:00 112 18 155/97 96 NIV Bilevel 32.00 11/09/16 16:00 100 NIV Bilevel 32.00 11/09/16 16:00 112 22 139/98 97 NIV Bilevel 32.00 11/09/16 15:00 117 16 147/81 100 NIV Bilevel 32.00 11/09/16 14:32 115 21 100 32.00 11/09/16 14:00 108 18 149/93 100 NIV Bilevel 32.00 11/09/16 13:00 110 11/09/16 13:00 112 19 149/91 100 NIV Bilevel 32.00 11/09/16 12:49 115 17 100 32.00 11/09/16 12:15 115 100 32 11/09/16 12:00 100 NIV Bilevel 32.00 11/09/16 11:30 NIV Bilevel 32 11/09/16 11:20 121 14 94 32.00 11/09/16 11:15 97.4 117 13 122/109 96 NIV Bilevel 32.00 11/09/16 11:10 97.5 118 18 99 NIV Bilevel 11/09/16 09:28 117 22 98 32.00 11/09/16 07:32 112 23 97 32.00 11/09/16 07:04 Nasal Cannula 2.00 11/09/16 07:04 98.8 137 18 151/87 91 Room Air General Appearance: Chronically ill, Mild Distress HEENT: Other (BiPAP in place) Neck: Non Tender, Supple Respiratory: No Accessory Muscle Use, Wheezing Cardiovascular: Regular Rate, Rhythm, No Edema, No JVD, No Murmur, Tachycardia Capillary Refill: Less Than 3 Seconds Extremity: Normal Capillary Refill, Non Tender, No Calf Tenderness, No Pedal Edema Neurologic/Psychiatric: Alert, Other (easily arousable to voice, protecting airway but falls asleep quickly after conversation) Skin: Normal Color, Warm/Dry, Ecchymosis (on right hip) Results Lab Laboratory Tests 11/09/16 08:10 11/09/16 08:50 11/10/16 04:45 Assessment/Plan Assessment/Plan COPDAE with acute respiratory failure - pt has 2 liters at home -SVN, -solumedrol-- change to prednisone taper --BiPAP PRN -Start advair -OXygen titrate for Sp02 90-94% Allergic rhinitis -Add Singulair, and Claritin UTI -Rocephin -D/C kami Debility -PT/OT Will transfer pt out of ICU and D/C kami. 255 Diagnosis/Problems Problems/Diagonsis (1) Acute respiratory failure Status: Acute Assessment & Plan: Continue on BiPAP ABG reassuring Will hold home benzos as able given her current sedation MAT protocol Continue steroids Pulm consulted, appreciate recs (2) COPD exacerbation Status: Acute Assessment & Plan: Continue Steroids, DuoNebs MAT Protocol (3) Urinary tract infection Status: Acute Assessment & Plan: Does not meet sepsis criteria Started on Rocephin in ED Will continue Await cultures Had difficult time getting access, order for PICC placed Qualifiers: Qualified Codes: N39.0 - Urinary tract infection, site not specified (4) Hypokalemia Status: Acute Assessment & Plan: K Protocol (5) Chronic back pain Assessment & Plan: Review of records indicates low history of low back pain As above will hold home pain meds until more alert Qualifiers: (6) Colostomy care Status: Chronic Assessment & Plan: Unsure why she has colostomy, pt unable to tell me Routine care (7) Prophylactic measure Assessment & Plan: Lovenox NS @ 100ml/hr NPO Clinical Quality Measures DVT/VTE Risk/Contraindication: Risk Factor Score Per Nursin RFS Level Per Nursing on Admit: 4+=Very High ARAM SANCHEZ DO Nov 10, 2016 06:08
--- NOTE | 2016-11-10 08:31 | Diagnostic Imaging Report ---
INDICATION: Respiratory distress 0527 hours Since the study of one day earlier, heart size and pulmonary vascularity remain within normal limits. Left upper extremity PICC is in stable position. There is no evidence of new infiltrate or pneumothorax. There may be mild blunting of left costophrenic sulcus. IMPRESSION: There may be small amount of left pleural fluid or thickening with otherwise unremarkable chest. Dictated by: Dictated on workstation # [id number]
--- NOTE | 2016-11-10 08:46 | Progress Note-Hospitalist ---
Subjective HPI/CC On Admission Date Seen by Provider: Nov 10, 2016 Time Seen by Provider: 07:15 CC: SOB HPI: Pt is a 76yoCF who presented to the ER with CC of [facility]. She has a known history of COPD and per ER MD report was in severe respiratory distress on arrival. She was placed on BiPAP and her symptoms improved. She was trialed off BiPAP but was unable to tolerate it. When I went ot bedside she was able to answer some yes/no questions but was unable to answer most other questions. She indicated that her symptoms started today and she was feeling better than she was on arrival but would quickly fall back asleep. Subjective/Events-last exam Reports feeling better than yesterday but still quite short of breath. Symptoms started around 1 week ago. Was unsure she had asthma/copd but was taking her Symbicort. Also complains of leg pain. She reports she does not walk at baseline and previously needed 24/7 care in her home but does not have that currently. Objective Exam Vital Signs Vital Sign - Last 12Hours 11/09/16 11/09/16 07:04 11:30 Temp 98.8 Pulse 137 Resp 18 B/P (MAP) 151/87 Pulse Ox 91 O2 Delivery Room Air O2 Flow Rate 2.00 FiO2 32 Capillary Refill : Less Than 3 Seconds General Appearance: No Apparent Distress, WD/WN Respiratory: Lungs Clear, No Accessory Muscle Use, No Respiratory Distress Cardiovascular: Regular Rate, Rhythm, No Edema Gastrointestinal: Normal Bowel Sounds, Non Tender, Soft Neurologic/Psychiatric: Alert, Oriented x3 Results/Procedures Lab Laboratory Tests 11/10/16 04:45 Assessment/Plan Assessment and Plan Assess & Plan/Chief Complaint See Problems Diagnosis/Problems Diagnosis/Problems (1) Acute respiratory failure Status: Acute Assessment & Plan: Off BiPAP this AM Resumed home Ativan and doing well MAT protocol Continue steroids but transitioned to PO Pulm consulted, appreciate recs (2) COPD exacerbation Status: Acute Assessment & Plan: Continue Steroids, DuoNebs MAT Protocol (3) Urinary tract infection Status: Acute Assessment & Plan: Does not meet sepsis criteria Continue Rocephin Day #2 Culture growing GNR Had difficult time getting access, order for PICC placed Qualifiers: Qualified Codes: N39.0 - Urinary tract infection, site not specified (4) Hypokalemia Status: Acute Assessment & Plan: K Protocol (5) Chronic back pain Assessment & Plan: Review of records indicates long history of low back pain As above will hold home pain meds until more alert Qualifiers: (6) Colostomy care Status: Chronic Assessment & Plan: Routine care (7) Hypothyroidism Status: Chronic Assessment & Plan: Continue home meds (8) Prophylactic measure Assessment & Plan: Lovenox Saline lock MARY GORE MD Nov 10, 2016 08:46
[2016-11-10] MEDS: predniSONE 10 MG TAB PO SCH (09:58)
[2016-11-10] MEDS: LORazepam 1 MG (ATIVAN) TAB PO SCH ×2 (09:59→21:42)
[2016-11-10] MEDS: DULoxetine 30 MG (CYMBALTA) CAP PO SCH (09:59)
[2016-11-10] MEDS: eZETimibe 10 MG (ZETIA) TABLET PO SCH (09:59)
[2016-11-10] MEDS: PREGABALIN 75 MG (LYRICA) CAP PO SCH ×2 (10:00→21:42)
[2016-11-10] MEDS: meTOproloL SUCCINATE 50 MG (TOPROL XL) TAB PO SCH (10:00)
[2016-11-10] MEDS: RT-ADVAIR HFA 115/21 MCG PER PUFF IH SCH ×2 (10:01→21:52)
[2016-11-10] MEDS: GABAPENTIN 600 MG (NEURONTIN) TAB PO SCH ×2 (10:01→21:42)
[2016-11-10] MEDS: cefTRIAXone INJECTION 1,000 MG in NS (IVPB) 50 ML IV SCH (10:01)
[2016-11-10] MEDS: CLOPIDOGREL 75 MG (PLAVIX) TABLET PO SCH (10:01)
[2016-11-10] MEDS: ENOXAPARIN 40 MG/0.4 ML (LOVENOX) SYR SC SCH (10:02)
--- NOTE | 2016-11-10 10:27 | Physical Therapy Evaluation ---
PT Evaluation-General Medical Diagnosis Admission Date Nov 09, 2016 at 10:30 Medical Diagnosis: respiratory distress/COPD exacerbation Onset Date: Nov 09, 2016 Therapy Diagnosis Therapy Diagnosis: generalized weakness/debility Height/Weight Height (Feet): 0 Height (Inches): 60.00 Weight (Pounds): 150 Weight (Ounces): 9.0 Precautions Precautions/Isolations: Fall Prevention, Standard Precautions Referral Physician: Cyndie Reason for Referral: Evaluation/Treatment Medical History Pertinent Medical History: Arthritis, CAD, COPD, GERD, HTN, Hypothroidism Additional Medical History vertigo Current History EMS and SOA with bilateral LE pain Reviewed History: Yes Social History Home: Apartment Current Living Status: Entry Into Home: Level Entry Prior/Core FIM Prior Level of Function Functional [place] Measure 0=Not Assessed/NA 4=Minimal Assistance 1=Total Assistance 5=Supervision or Setup 2=Maximal Assistance 6=Modified [place] 3=Moderate Assistance 7=Complete [place] Bed Mobility: 5 Transfers (B,C,W/C) (FIM): 5 Gait: 5 uses 4WW and has caregiver PT Evaluation-Current Subjective Patient agrees to PT. Pain Numeric Pain Scale: 0-No Pain Location: No Pain Reported Objective Patient Orientation: Normal For Age Problem Solving: Fair Attachments: Lee Catheter, IV ROM/Strength ROM Lower Extremities bilateral LE WNL Strenght Lower Extremities bilateral LE 4-/5 grossly Integumentary/Posture Integumentary refer to nursing notes Bladder Incontinence: Lee Cath Posture WNL Neuromuscular (Tone, Coordination, Reflexes) diminished coordination with noted tremors Sensory Vision: Functional Hearing: Functional Sensation Right Lower Extremit: Intact Sensation Left Lower Extremity: Intact Transfers Functional [place] Measure 0=Not Assessed/NA 4=Minimal Assistance 1=Total Assistance 5=Supervision or Setup 2=Maximal Assistance 6=Modified [place] 3=Moderate Assistance 7=Complete [place] Transfers (B, C, W/C) (FIM): 3 Scootin Rollin Supine to/from Sit: 4 Sit to/from Stand: 3 bed t/f WC(FIM only if WC use): 3 unsteady with sit to stand and SPT due to "shaking" or tremors Gait Mode of Locomotion: Walk Anticipated Mode of Locomotion: Walk Balance Sitting Static: Normal Sitting Dynamic: Normal Standing Static: Fair Standing Dynamic: Fair Assessment/Needs 76 y.o. female, will benefit from skilled PT to address functional strength and mobility to improve current LOF and to safely return to home or care facility at maximum LOF. Patient has been unsafe and has declined in gross motor skills over the past year. Rehab Potential: Fair PT [facility] Goals [facility] Goals PT Home Performance Laborer Goals Time Frame: Nov 25, 2016 Transfers (B,C,W/C) (FIM): 5 Gait (FIM): 5 Gait distance (FIM): 3=150 ft Distance: 150' Gait Level of Assist: 5 Gait Assistive Device: FWW PT Plan Problem List Problem List: Activity Tolerance, Functional Strength, Safety, Balance, Gait, Transfer, Bed Mobility Treatment/Plan Treatment Plan: Continue Plan of Care Treatment Plan: Bed Mobility, Education, Functional Activity Jose, Functional Strength, Gait, Safety, Therapeutic Exercise, Transfers Treatment Duration: Nov 25, 2016 Frequency: 6 times per week Estimated Hrs Per Day: .25 hour per day Patient and/or Family Agrees t: Yes Safety Risks/Education Patient Education: Safety Issues Teaching Recipient: Patient Discharge Recommendations Therapy D/C Recommendations: Alf Placement Time/GCodes Time In: 901 Time Out: 916 Total Billed Treatment Time: 15 Total Billed Treatment 1 visit EVModC 15 min G Codes Necessary: ORTEGA Rae PT Nov 10, 2016 10:27
--- NOTE | 2016-11-10 15:05 | Occupational Therapy Eval ---
OT Evaluation-General/PLF Medical Diagnosis Admission Date Nov 09, 2016 at 10:30 Medical Diagnosis: respiratory distress/COPD exacerbation Onset Date: Nov 09, 2016 Therapy Diagnosis Therapy Diagnosis: decr self care, weakness Height/Weight Height (Feet): 0 Height (Inches): 60.00 Weight (Pounds): 202 Weight (Ounces): 8.0 Precautions Precautions/Isolations: Fall Prevention, Standard Precautions Referral Physician: Cyndie Referral Reason: Evaluation/Treatment Medical History Pertinent Medical History: Arthritis, CAD, COPD, GERD, HTN, Hypothroidism Additional Medical History Colostomy, kyphoplasty, cardiac stents, DVT, vertigo, chronic UTI, compr fx, osteoporosis, chronic back pain, anxiety, depression Current History Admitted through ED, with SOA and bilat leg pain. Fall last week and pt is concerned about injuring R hip Social History Home: Apartment ([address] apartments) Current Living Status: caregivers 12/09 Entry Into Home: Level Entry ADL-Prior Level of Function ADL PLOF Comments Pt reported that she has 12/09 caregivers (her night caregiver recently quit and she is hiring someone else). They help her with everything - dressing, bathing, toileting, transfers, cleaning, cooking, etc. OT Current Status Subjective Pt seen in room up in bed, agreeable to OT. Pt reported pain R hip 8/10 when she is moving. Appearance Alert, cooperative Current Upper Extremity ROM grossly WFL bilat Upper Extremity Strength grossly 4/5 bilat Pt had visible tremors bilat UEs ADL-Treatment ADL-Current Pt reported that she has weighted silverware at home but doesn't think it does much good. She just uses a spoon and is able to feed herself. she has not been up to the toilet yet so a BSC was brought into her room. transfers per PT are mod assist with FWW Functional [place] Measure 0=Not Assessed/NA 4=Minimal Assistance 1=Total Assistance 5=Supervision or Setup 2=Maximal Assistance 6=Modified [place] 3=Moderate Assistance 7=Complete IndependenceIRFPAI Quality Coding Scale 6 Independent with activity with or without an assistive device 5 Patient requires set up or clean up by helper. Patient completes activity by themselves 4 Supervision or touching assist (CGA). [place] provide cues , steadying assist 3 The helper provides less than half the effort to complete the activity 2 The helper provides more than half the effort to complete the activity 1 Dependent. The helper does all the effort to complete an activity 7 Patient refused to complete or attempt activity 9 The patient did not perform the activity before the current illness or injury 88 Not attempted due to Medical conditions or safety concerns Education OT Patient Education: Purpose of tx/functional activities, Rehab process Teaching Recipient: Patient Teaching Methods: Discussion Response to Teaching: Verbalize Understanding OT Fpc Goals Embroidery Operator Goals Time Frame: Nov 25, 2016 Eating (FIM): 6 Grooming(FIM): 5 Bathing(FIM): 4 Upper Body Dressing(FIM): 5 Lower Body Dressing(FIM): 5 Toileting(FIM): 5 Toilet/Commode Transfer(FIM): 5 Shower Transfer(FIM): 5 Additional Goals: 2-Verbalize Understanding, 3-ImproveStrength/Jose 1=Demonstrate adherence to instructed precautions during ADL tasks. 2=Patient will verbalize/demonstrate understanding of assistive devices/ modifications for ADL. 3=Patient will improve strength/tolerance for activity to enable patient to perform ADL's. OT Education/Plan Problem List/Assessment Assessment: Decreased Activ Tolerance, Decreased UE Strength, Dependent Transfers, Impaired Funct Balance, Impaired Self-Care Skills Pt would benefit from skilled OT to increase her independence in basic self care to allow her to return home to live with her caregivers and to decrease caregiver burden Discharge Recommendations Plan/Recommendations: Continue POC Therapy D/C Recommendations: [facility] (TCU/NH) (OT) Target Placement home Patient/Family Goals "I would like to be able to take myself to the bathroom without calling for help." Treatment Plan/Plan of Care Patient would benefit from OT for education, treatment and training to promote independence in ADL's, mobility, safety and/or upper extremity function for ADL' s. Plan of Care: ADL Retraining, Functional Mobility, UE Funct Exercise/Act Treatment Duration: Nov 25, 2016 Frequency: 5 times per week Estimated Hrs Per Day: .5 hour per day Agreement: Yes Rehab Potential: Fair Time/GCodes Start Time: 14:25 Stop Time: 14:45 Total Time Billed (hr/min): 20 Billed Treatment Time visit, 20 minutes evaluation moderate intensity SHAR GALLARDO OT Nov 10, 2016 15:05
[2016-11-10] MEDS: inSUlin (REGULAR) HUMAN 1 UNIT/0.01 ML (CHARGE PER UNIT) SC SCH ×2 (15:59→21:18)
[2016-11-10] MEDS: rOPINIRole 1 MG (REQUIP) TABLET PO SCH (21:42)
[2016-11-11] VITALS: BP 155/85
[2016-11-11] MEDS: HYDROcodone/APAP 10 MG/325 MG (LORTAB) TAB PO PRN ×3 (00:11→23:06)
[2016-11-11] MEDS: RT-ALBUTEROL/IPRATROPIUM 3 ML (DUONEB) VIAL INH SCH ×4 (02:43→20:14)
[2016-11-11 04:00] VITALS: BP 159/83
[2016-11-11 06:10] LABS: ANION GAP 4 MMOL/L (5-14); BLOOD UREA NITROGEN 18 MG/DL (7-18); BUN/CREATININE RATIO 26; CALCIUM 9.3 MG/DL (8.5-10.1); CARBON DIOXIDE 25 MMOL/L (21-32); CHLORIDE 103 MMOL/L (98-107); CREATININE SERUM 0.69 MG/DL (0.60-1.30); GFR ESTIMATED > 60; GLUCOSE 143 MG/DL (70-105); MAGNESIUM 2.2 MG/DL (1.8-2.4); POTASSIUM 4.2 MMOL/L (3.6-5.0); SODIUM 132 MMOL/L (135-145)
[2016-11-11] MEDS: inSUlin (REGULAR) HUMAN 1 UNIT/0.01 ML (CHARGE PER UNIT) SC SCH ×4 (06:25→20:51)
[2016-11-11] MEDS: SUCRALFATE 1 GM (CARAFATE) TAB PO SCH ×4 (06:38→20:51)
[2016-11-11] MEDS: PANTOPRAZOLE 40 MG (PROTONIX) TAB PO SCH (06:38)
[2016-11-11] MEDS: LEVOTHYROXINE 112 MCG (LEVOTHROID) TAB PO SCH (06:38)
[2016-11-11] MEDS: cefTRIAXone INJECTION 1,000 MG in NS (IVPB) 50 ML IV SCH (08:04)
[2016-11-11 08:06] VITALS: BP 158/87
[2016-11-11] MEDS: eZETimibe 10 MG (ZETIA) TABLET PO SCH (08:06)
[2016-11-11] MEDS: meTOproloL SUCCINATE 50 MG (TOPROL XL) TAB PO SCH (08:06)
[2016-11-11] MEDS: CLOPIDOGREL 75 MG (PLAVIX) TABLET PO SCH (08:06)
[2016-11-11] MEDS: LORazepam 1 MG (ATIVAN) TAB PO SCH ×2 (08:06→20:51)
[2016-11-11] MEDS: predniSONE 10 MG TAB PO SCH (08:06)
[2016-11-11] MEDS: PREGABALIN 75 MG (LYRICA) CAP PO SCH ×2 (08:06→20:51)
[2016-11-11] MEDS: GABAPENTIN 600 MG (NEURONTIN) TAB PO SCH ×2 (08:06→20:51)
[2016-11-11] MEDS: DULoxetine 30 MG (CYMBALTA) CAP PO SCH (08:09)
[2016-11-11] MEDS: RT-ADVAIR HFA 115/21 MCG PER PUFF IH SCH ×2 (09:24→20:14)
--- NOTE | 2016-11-11 09:55 | Discharge Inst-Skilled Nursing ---
Discharge Inst-Skilled NF Consult/Follow Up/Orders Skilled NF Admit to: [facility] Certification (SNF) I certify that SNF services are required to be given on an inpatient basis because of the above named patient's need for senior care care on a continuing basis for the conditions(s) for which he/she was receiving inpatient hospital services prior to his/her transfer to the SNF. Care Home Facility Order: Nursing Services, Hydroelectric Production Technician-Evaluate & Treat, Physical Therapy-Evaluate & Treat Discharge Diet: Cardiac Diet Daily Activity as Tolerated: Yes New & Resume Previous Orders Mary Cox Nov 11, 2016 09:54 MARY COX MD Nov 11, 2016 09:55
[2016-11-11] MEDS ORDERED: LORA1TAB PO (09:56)
[2016-11-11] MEDS ORDERED: PRD10T PO (09:56)
--- NOTE | 2016-11-11 10:03 | Physical Therapy Daily Note ---
PT Daily Note-Current Subjective Patient agrees to PT. Pain Numeric Pain Scale: 5-Moderate Pain Location: Left Location Body Site: Thigh Pain Description: Ache Mental Status Patient Orientation: Person, Time, Situation Attachments: Oxygen Transfers Functional [place] Measure 0=Not Assessed/NA 4=Minimal Assistance 1=Total Assistance 5=Supervision or Setup 2=Maximal Assistance 6=Modified [place] 3=Moderate Assistance 7=Complete IndependenceIRFPAI Quality Coding Scale 6 Independent with activity with or without an assistive device 5 Patient requires set up or clean up by helper. Patient completes activity by themselves 4 Supervision or touching assist (CGA). [place] provide cues , steadying assist 3 The helper provides less than half the effort to complete the activity 2 The helper provides more than half the effort to complete the activity 1 Dependent. The helper does all the effort to complete an activity 7 Patient refused to complete or attempt activity 9 The patient did not perform the activity before the current illness or injury 88 Not attempted due to Medical conditions or safety concerns Transfers (B, C, W/C) (FIM): 5 Scootin Rollin Supine to/from Sit: 5 Sit to/from Stand: 5 Gait Training Gait (FIM): 4 Distance (FIM): 3=150 ft Distance: 150' Gait Level of Assist: 4 Gait Persons Needed: 1 Gait Assistive Device: FWW slow and antalgic Exercises Supine Ex: Ankle pumps, Quad Set, Heel Slides, Straight leg raise Supine Reps: 10 (AAROM bilaterally) Assessment Patient tolerated treatment and returned to bed with needs met. Per Dr. Cox, patient will dismiss to [place] on this day. PT Historical Records Administrator Goals Usp Goals PT Historical Records Administrator Goals Time Frame: Nov 25, 2016 Transfers (B,C,W/C) (FIM): 5 Gait (FIM): 5 Gait distance (FIM): 3=150 ft Distance: 150' Gait Level of Assist: 5 Gait Assistive Device: FWW PT Plan Treatment/Plan Treatment Plan: Discontinue PT Treatment Plan: Bed Mobility, Education, Functional Activity Jose, Functional Strength, Gait, Safety, Therapeutic Exercise, Transfers Treatment Duration: Nov 25, 2016 Frequency: 6 times per week Estimated Hrs Per Day: .25 hour per day Patient and/or Family Agrees t: Yes Discharge Recommendations Therapy D/C Recommendations: Assisted Placement, Care Home (TCU/NH) Time/GCodes Time In: 850 Time Out: 913 Total Billed Treatment Time: 23 Total Billed Treatment 1 visit GT 15 min EX 8 min ORTEGA MATIAS PT Nov 11, 2016 10:03
--- NOTE | 2016-11-11 10:19 | Discharge Summary-Hospitalist ---
Diagnosis/Chief Complaint Date of Admission Nov 09, 2016 at 10:30 Date of Discharge Discharge Date: Nov 11, 2016 Admission Diagnosis Acute Respiratory Failure Discharge Diagnosis See Problems (1) Acute respiratory failure Status: Resolved Assessment & Plan: Near home oxygen requirement Will do Prednisone taper at SNF Titrate oxygen as able DuoNebs prn Continue home inhalers (2) COPD exacerbation Status: Acute Assessment & Plan: Continue Steroids, DuoNebs MAT Protocol As above (3) Urinary tract infection Status: Acute Assessment & Plan: Does not meet sepsis criteria Rocephin Day #04/22 (4) Hypokalemia Status: Acute Assessment & Plan: K Protocol (5) Chronic back pain Assessment & Plan: Review of records indicates long history of low back pain Resume home pain meds (6) Colostomy care Status: Chronic Assessment & Plan: Routine care (7) Hypothyroidism Status: Chronic Assessment & Plan: Continue home meds (8) Prophylactic measure Assessment & Plan: Lovenox Saline lock Discharge Summary Consultations Pulm- Dr Agee Discharge Physical Examination Allergies: Coded Allergies: No Known Drug Allergies (Unverified , 06/10/15) Vitals & I&Os Vital Signs Date Time Temp Pulse Resp B/P (MAP) Pulse Ox O2 Delivery O2 Flow Rate FiO2 11/11/16 09:26 95 Nasal Cannula 2.00 11/11/16 08:06 99.0 80 20 158/87 11/09/16 12:15 32 Hospital Course Pt is [id number] who presented in respiratory failure secondary to COPD exacerbation. She was placed on BiPAP and responded very well to it and steroids. She was off BiPAP by the second day of admission. She is near her home oxygen requirement. She will bed DC-ed on prednisone taper and DuoNebs to a SNF. She was also found to have a UTI. Culture grew e.coli sensitive to Rocephin. She completed 3 day course of Rocephin while inpatient. Labs (last 24 hrs) Laboratory Tests 11/10/16 11:37: Glucometer 278H 11/10/16 15:57: Glucometer 178H 11/10/16 20:49: Glucometer 160H 11/11/16 05:40: Sodium Level 132L, Potassium Level 4.2, Chloride Level 103, Carbon Dioxide Level 25, Anion Gap 4L, Blood Urea Nitrogen 18, Creatinine 0.69, Estimat Glomerular Filtration Rate > 60, BUN/Creatinine Ratio 26, Glucose Level 143H, Calcium Level 9.3, Magnesium Level 2.2 Microbiology 11/09/16 Blood Culture - Preliminary, Resulted No growth 11/09/16 MRSA Screen - Final, Complete MRSA not isolated 11/09/16 Urine Culture - Preliminary, Resulted Escherichia Coli Pending Labs Laboratory Tests 11/11/16 05:40: Sodium Level 132, Potassium Level 4.2, Chloride Level 103, Carbon Dioxide Level 25, Anion Gap 4, Blood Urea Nitrogen 18, Creatinine 0.69, Estimat Glomerular Filtration Rate > 60, BUN/Creatinine Ratio 26, Glucose Level 143, Calcium Level 9.3, Magnesium Level 2.2 Discharge Home Medications: Active Scripts Active Prednisone 10 Mg Tab 50 Mg PO DAILY Take 6 tabs (60mg) daily, decrease by 1 tab (10mg) daily. Lorazepam 1 Mg Tablet 1 Mg PO BID 30 Days Reported Sucralfate 1 Gm Tablet 1 Gm PO ACHS Ropinirole HCl 4 Mg Tablet 8 Mg PO HS TAKES 2 (4MG) TABLETS Levothyroxine Sodium 112 Mcg Tablet 112 Mcg PO DAILY Gabapentin 600 Mg Tablet 600 Mg PO BID Alprazolam 0.5 Mg Tablet 0.5 Mg PO QID PRN Ciprofloxacin HCl 500 Mg Tablet 500 Mg PO BID 7 DAY THERAPY FILLED 11-02-16 Pantoprazole Sodium 40 Mg Tablet.dr 40 Mg PO DAILY Hydrocodon-Acetaminophn 10-325 (Hydrocodone/Acetaminophen) 1 Each Tablet 1 Tab PO Q4H PRN Lyrica (Pregabalin) 75 Mg Capsule 75 Mg PO BID Dicyclomine HCl 10 Mg Capsule 10 Mg PO TID PRN Temazepam 30 Mg Capsule 30 Mg PO HS Omeprazole 40 Mg Capsule.dr 40 Mg PO BID Symbicort 160-4.5 Mcg Inhaler (Budesonide/Formoterol Fumarate) 10.2 Gm Hfa.aer.ad 2 Puff INH BID LAST FILLED 02-24-16 Clopidogrel (Clopidogrel Bisulfate) 75 Mg Tablet 75 Mg PO DAILY LAST FILLED 10-01-16 #30 Nitrostat (Nitroglycerin) 0.4 Mg Tab.subl 0.4 Mg SL UD PRN Metoprolol Succinate 50 Mg Tab.er.24h 50 Mg PO DAILY Duloxetine HCl 60 Mg Capsule.dr 60 Mg PO DAILY Zetia (Ezetimibe) 10 Mg Tablet 10 Mg PO DAILY LAST FILLED #30 10-01-16 Instructions to patient/family Please see electronic discharge instructions given to patient. Clinical Quality Measures DVT/VTE Risk/Contraindication: Risk Factor Score Per Nursin RFS Level Per Nursing on Admit: 4+=Very High Copy Copies To 1: TORIBIO FOFANA DO Problem Qualifiers (1) Urinary tract infection: Urinary tract infection type: site unspecified Hematuria presence: without hematuria Qualified Codes: N39.0 - Urinary tract infection, site not specified (2) Chronic back pain: Back pain location: low back pain MARY GORE MD Nov 11, 2016 10:18
[2016-11-11] MEDS: ENOXAPARIN 40 MG/0.4 ML (LOVENOX) SYR SC SCH (11:45)
[2016-11-11 12:34] VITALS: BP 160/92
--- NOTE | 2016-11-11 13:36 | Occupational Ther Daily Note ---
OT Current Status-Daily Note Subjective Pt in bed, agrees to treatment. Pt states she may be leaving today. Mental Status/Objective Functional [place] Measure 0=Not Assessed/NA 4=Minimal Assistance 1=Total Assistance 5=Supervision or Setup 2=Maximal Assistance 6=Modified [place] 3=Moderate Assistance 7=Complete [place] Attachments: Oxygen ADL-Treatment Pt supine to sit with supervision. Pt would like to get dressed this morning. Pt donned pullover shirt with minimal assistance to pull down in the back. Pt incontinent of urine, states she needs BSC. Transferred EOB to BSC with CGA and cues for safety using FWW. Pt completed toileting hygiene with SBA, but required assist to doff underwear and don clean Depends. Pt donned pants with mod assist to start pants over feet. Pt transferred back to EOB with CGA. Sit to supine with SBA. Pt requires increased time for ADL tasks. Pt in bed with needs met and bed alarm on after session. Upper Body (FIM): 4 Lower Body Dressing (FIM): 3 Toilet/Commode Transfer (FIM): 4 OT Short Term Goals Short Term Goals 1=Demonstrate adherence to instructed precautions during ADL tasks. 2=Patient will verbalize/demonstrate understanding of assistive devices/ modifications for ADL. 3=Patient will improve strength/tolerance for activity to enable patient to perform ADL's. OT Web Content Executive Goals Assisted Goals Time Frame: Nov 25, 2016 Eating (FIM): 6 Grooming(FIM): 5 Bathing(FIM): 4 Upper Body Dressing(FIM): 5 Lower Body Dressing(FIM): 5 Toileting(FIM): 5 Toilet/Commode Transfer(FIM): 5 Shower Transfer(FIM): 5 Additional Goals: 2-Verbalize Understanding, 3-ImproveStrength/Jose 1=Demonstrate adherence to instructed precautions during ADL tasks. 2=Patient will verbalize/demonstrate understanding of assistive devices/ modifications for ADL. 3=Patient will improve strength/tolerance for activity to enable patient to perform ADL's. OT Education/Plan Problem List/Assessment Pt would benefit from skilled OT to increase her independence in basic self care to allow her to return home to live with her caregivers and to decrease caregiver burden Discharge Recommendations Plan/Recommendations: Continue POC Treatment Plan/Plan of Care Patient would benefit from OT for education, treatment and training to promote independence in ADL's, mobility, safety and/or upper extremity function for ADL' s. Plan of Care: ADL Retraining, Functional Mobility, UE Funct Exercise/Act Treatment Duration: Nov 25, 2016 Frequency: 5 times per week Estimated Hrs Per Day: .5 hour per day Agreement: Yes Rehab Potential: Fair Time/GCodes Start Time: 11:22 Stop Time: 11:48 Total Time Billed (hr/min): 26 Billed Treatment Time 1 visit, ADLx2(26minutes) NANI YAO OT Nov 11, 2016 13:36
[2016-11-11] MEDS ORDERED: HYDR-3820 PO (15:31)
[2016-11-11 16:00] VITALS: BP 166/93
[2016-11-11 20:09] VITALS: BP 141/80
[2016-11-11] MEDS: rOPINIRole 1 MG (REQUIP) TABLET PO SCH (20:51)
[2016-11-12 00:05] VITALS: BP 145/81
[2016-11-12] MEDS: RT-ALBUTEROL/IPRATROPIUM 3 ML (DUONEB) VIAL INH SCH ×2 (02:57→09:42)
[2016-11-12 05:27] LABS: ANION GAP 6 MMOL/L (5-14); BLOOD UREA NITROGEN 19 MG/DL (7-18); BUN/CREATININE RATIO 30; CALCIUM 9.3 MG/DL (8.5-10.1); CARBON DIOXIDE 26 MMOL/L (21-32); CHLORIDE 99 MMOL/L (98-107); CREATININE SERUM 0.64 MG/DL (0.60-1.30); GFR ESTIMATED > 60; GLUCOSE 138 MG/DL (70-105); MAGNESIUM 2.1 MG/DL (1.8-2.4); POTASSIUM 4.3 MMOL/L (3.6-5.0); SODIUM 131 MMOL/L (135-145)
[2016-11-12] MEDS: inSUlin (REGULAR) HUMAN 1 UNIT/0.01 ML (CHARGE PER UNIT) SC SCH (05:31)
[2016-11-12] MEDS: PANTOPRAZOLE 40 MG (PROTONIX) TAB PO SCH (05:32)
[2016-11-12] MEDS: LEVOTHYROXINE 112 MCG (LEVOTHROID) TAB PO SCH (05:32)
[2016-11-12] MEDS: SUCRALFATE 1 GM (CARAFATE) TAB PO SCH (05:32)
[2016-11-12 07:34] VITALS: BP 170/74
[2016-11-12 07:40] VITALS: BP 145/81
[2016-11-12] MEDS: eZETimibe 10 MG (ZETIA) TABLET PO SCH (08:34)
[2016-11-12] MEDS: GABAPENTIN 600 MG (NEURONTIN) TAB PO SCH (08:34)
[2016-11-12] MEDS: predniSONE 10 MG TAB PO SCH (08:34)
[2016-11-12] MEDS: DULoxetine 30 MG (CYMBALTA) CAP PO SCH (08:34)
[2016-11-12] MEDS: meTOproloL SUCCINATE 50 MG (TOPROL XL) TAB PO SCH (08:34)
[2016-11-12] MEDS: PREGABALIN 75 MG (LYRICA) CAP PO SCH (08:35)
[2016-11-12] MEDS: LORazepam 1 MG (ATIVAN) TAB PO SCH (08:35)
[2016-11-12] MEDS: CLOPIDOGREL 75 MG (PLAVIX) TABLET PO SCH (08:35)
[2016-11-12] MEDS: HYDROcodone/APAP 10 MG/325 MG (LORTAB) TAB PO PRN (08:49)
--- NOTE | 2016-11-12 08:59 | Progress Note-Hospitalist ---
Subjective HPI/CC On Admission Date Seen by Provider: Nov 12, 2016 Time Seen by Provider: 08:50 CC: SOB HPI: Pt is a 76yoCF who presented to the ER with CC of [facility]. She has a known history of COPD and per ER MD report was in severe respiratory distress on arrival. She was placed on BiPAP and her symptoms improved. She was trialed off BiPAP but was unable to tolerate it. When I went ot bedside she was able to answer some yes/no questions but was unable to answer most other questions. She indicated that her symptoms started today and she was feeling better than she was on arrival but would quickly fall back asleep. Subjective/Events-last exam Reports feeling well. Was just up with PT walking. Ready for DC to [facility]. Objective Exam Vital Signs Vital Sign - Last 12Hours 11/09/16 11/09/16 07:04 11:30 Temp 98.8 Pulse 137 Resp 18 B/P (MAP) 151/87 Pulse Ox 91 O2 Delivery Room Air O2 Flow Rate 2.00 FiO2 32 Capillary Refill : Less Than 3 Seconds General Appearance: No Apparent Distress, WD/WN Respiratory: Lungs Clear, Normal Breath Sounds, No Accessory Muscle Use Cardiovascular: Regular Rate, Rhythm, No Edema, No Murmur Gastrointestinal: Normal Bowel Sounds, Non Tender, Soft Neurologic/Psychiatric: Alert, Oriented x3 Results/Procedures Lab Laboratory Tests 11/12/16 05:03 Assessment/Plan Assessment and Plan Assess & Plan/Chief Complaint See Problems Diagnosis/Problems Diagnosis/Problems (1) Acute respiratory failure Status: Resolved Assessment & Plan: Back to home oxygen requirement today Will finish Prednisone taper at [facility] Titrate oxygen as able DuoNebs prn Continue home inhalers (2) COPD exacerbation Status: Acute Assessment & Plan: Continue Steroids, DuoNebs MAT Protocol As above (3) Urinary tract infection Status: Acute Assessment & Plan: Not sepsis Completed 3 days Rocephin Qualifiers: Qualified Codes: N39.0 - Urinary tract infection, site not specified (4) Chronic back pain Assessment & Plan: Review of records indicates long history of low back pain Resume home pain meds Rx for controlled medications sent to [facility] yesterday Qualifiers: (5) Colostomy care Status: Chronic Assessment & Plan: Routine care (6) Hypothyroidism Status: Chronic Assessment & Plan: Continue home meds (7) Prophylactic measure Assessment & Plan: Lovenox Saline lock DC to SNF today MARY GORE MD Nov 12, 2016 08:59
--- NOTE | 2016-11-12 09:01 | Physical Therapy Daily Note ---
PT Daily Note-Current Subjective Agreeable to a short walk. Transfers Functional [place] Measure 0=Not Assessed/NA 4=Minimal Assistance 1=Total Assistance 5=Supervision or Setup 2=Maximal Assistance 6=Modified [place] 3=Moderate Assistance 7=Complete IndependenceIRFPAI Quality Coding Scale 6 Independent with activity with or without an assistive device 5 Patient requires set up or clean up by helper. Patient completes activity by themselves 4 Supervision or touching assist (CGA). [place] provide cues , steadying assist 3 The helper provides less than half the effort to complete the activity 2 The helper provides more than half the effort to complete the activity 1 Dependent. The helper does all the effort to complete an activity 7 Patient refused to complete or attempt activity 9 The patient did not perform the activity before the current illness or injury 88 Not attempted due to Medical conditions or safety concerns Treatments Supine to from sit EOB with SBA; SPT bed to toilet with SB-CGA. Assisted pt change wet depends and assisted to apply her pants. Pt able to perform own pericare. Pt ambulated x 100 ft with FWW with forward flexed posture, slow gait and decreased step length. Pt in bed post treatment with needs met. Assessment Current Status: Good Progress Slow with mobility but progressing. Cooperative. PT Customs Compliance Analyst Goals Fpc Goals PT Fpc Goals Time Frame: Nov 25, 2016 Transfers (B,C,W/C) (FIM): 5 Gait (FIM): 5 Gait distance (FIM): 3=150 ft Distance: 150' Gait Level of Assist: 5 Gait Assistive Device: FWW PT Plan Problem List Problem List: Activity Tolerance, Functional Strength, Safety, Balance, Gait, Transfer, Bed Mobility Treatment/Plan Treatment Plan: Continue Plan of Care Treatment Plan: Bed Mobility, Education, Functional Activity Jose, Functional Strength, Gait, Safety, Therapeutic Exercise, Transfers Treatment Duration: Nov 25, 2016 Frequency: 6 times per week Estimated Hrs Per Day: .25 hour per day Patient and/or Family Agrees t: Yes Safety Risks/Education Patient Education: Transfer Techniques, Safety Issues Teaching Recipient: Patient Teaching Methods: Demonstration, Discussion Response to Teaching: Reinforcement Needed Time/GCodes Time In: 817 Time Out: 840 Total Billed Treatment Time: 23 Total Billed Treatment vsiit FA 13 GT 10 GRACE CERNA PT Nov 12, 2016 09:01
[2016-11-12] MEDS: RT-ADVAIR HFA 115/21 MCG PER PUFF IH SCH (09:43)
== END 2016-11-12 11:30 | DRG 189 ==
LOC: EDUNIT# 07:04 → ER 07:06 → ICU 10:30 → 4TH 11-10 11:50
PROVIDERS: ADMIT Family Medicine; ATTEND Family Medicine
PROC: 02HV33Z Insertion of Infusion Device into Superior Vena Cava, Percutaneous Approach (ICD-10-PCS; principal; 2016-11-09)
DX: J96.00 Acute respiratory failure, unspecified whether with hypoxia or hypercapnia (principal); J44.1 Chronic obstructive pulmonary disease with (acute) exacerbation; N39.0 Urinary tract infection, site not specified; J30.9 Allergic rhinitis, unspecified; E87.6 Hypokalemia; I10 Essential (primary) hypertension; E86.1 Hypovolemia; S50.01XA Contusion of right elbow, initial encounter; S70.11XA Contusion of right thigh, initial encounter; M81.0 Age-related osteoporosis without current pathological fracture; M19.91 Primary osteoarthritis, unspecified site; K21.9 Gastro-esophageal reflux disease without esophagitis; M54.5 Low back pain; F41.9 Anxiety disorder, unspecified; F32.9 Major depressive disorder, single episode, unspecified; K57.90 Diverticulosis of intestine, part unspecified, without perforation or abscess without bleeding; Z93.3 Colostomy status; W19.XXXA Unspecified fall, initial encounter; Z86.718 Personal history of other venous thrombosis and embolism; Z95.5 Presence of coronary angioplasty implant and graft; Z87.891 Personal history of nicotine dependence
CPT/HCPCS: 36415; 36569; 51702; 71010; 73552; 76937; 80048; 80053; 81000; 82805; 82962; 83605; 83735; 85025; 86141; 87040; 87077; 87081; 87088; 87186; 94640; 94660; 94760; 96361; 96365; 96375

== ENCOUNTER → 2016-12-01 | Outpatient (CLI) | payer MEDICARE, MEDICAID ==
[~2016-12-01] MED LIST changes: +ALPR0.5T7 PO; +ASPI-983 PO; +CIPR500T4 PO; +HYDR-3820 PO; +LEVO112T55 PO; -METO-370 PO; +PRD10T PO; +SUCR1TAB PO
[2016-12-01 03:12] LABS: BILIRUBIN,URINE NEGATIVE (NEGATIVE); KETONES,URINE NEGATIVE (NEGATIVE); LEUKOCYTE ESTERASE ,URINE 1+ (NEGATIVE); NITRITE,URINE NEGATIVE (NEGATIVE); PH,URINE 6 (5-9); PROTEIN,URINE NEGATIVE (NEGATIVE); UROBILINOGEN,URINE NORMAL (NORMAL)
[2016-12-01 03:19] LABS: SQUAMOUS EPITHELIAL CELL,UR RARE /HPF
== END ==
LOC: EDBD → CVS 01:00
PROVIDERS: ATTEND Internal Medicine
DX: R30.0 Dysuria (principal)
CPT/HCPCS: 81000

== ENCOUNTER → 2016-12-09 | Outpatient (CLI) | payer MEDICARE, MEDICAID ==
--- NOTE | 2016-12-09 14:10 | Diagnostic Imaging Report ---
INDICATION: R10.13 J18.9 COMPARISON: 11/10/2016. FINDINGS: Frontal and lateral views of the chest demonstrate normal heart size and pulmonary vascularity. The lungs are clear. There are no signs of infiltrate, pleural effusions or pneumothoraces. The visualized osseous structures show no acute abnormalities. There is calcified aortic atherosclerosis. IMPRESSION: 1. No acute process. No signs of infiltrates, effusions or pneumothoraces. Dictated by: Dictated on workstation # [id number]
--- NOTE | 2016-12-09 16:23 | Diagnostic Imaging Report ---
PROCEDURE: US Gallbladder. TECHNIQUE: Multiple real-time grayscale images were obtained over the right upper quadrant in various projections. INDICATION: Abdominal pain. FINDINGS: Liver appears normal. Gallbladder appears normal with no gallstones or wall thickening. Common bile duct measures 3 mm. The portal and hepatic vein are patent. The pancreas is not visualized. Right kidney appears normal. There is no ascites. IMPRESSION: Normal right upper quadrant ultrasound. Dictated by: Dictated on workstation # [id number]
== END ==
LOC: RAD 13:31
PROVIDERS: ATTEND Internal Medicine
DX: R10.13 Epigastric pain (principal); J18.9 Pneumonia, unspecified organism
CPT/HCPCS: 71020; 76705

== ENCOUNTER → 2017-01-11 | Outpatient (CLI) | payer MEDICARE, MEDICAID ==
[~2017-01-11] MED LIST changes: +METO-370 PO; +ONDA4TAB8 SL; +PHEN-640 PO; +SULF1TAB35 PO
[2017-01-11 21:33] LABS: BILIRUBIN,URINE NEGATIVE (NEGATIVE); KETONES,URINE NEGATIVE (NEGATIVE); LEUKOCYTE ESTERASE ,URINE 2+ (NEGATIVE); NITRITE,URINE POSITIVE (NEGATIVE); PH,URINE 5 (5-9); PROTEIN,URINE NEGATIVE (NEGATIVE); UROBILINOGEN,URINE NORMAL (NORMAL)
[2017-01-11 22:01] LABS: CALCIUM OXALATE CRYSTALS,UR RARE /LPF; WBC,URINE TNTC /HPF
== END ==
LOC: CVS 21:26
PROVIDERS: ATTEND Internal Medicine
DX: N39.0 Urinary tract infection, site not specified (principal)
CPT/HCPCS: 81000; 87077; 87088; 87186

== ENCOUNTER 2017-01-17 12:48 | Emergency (ER) | payer MEDICARE, MEDICAID ==
[~2017-01-17] VITALS: Ht 154.9 cm; Wt 68.0 kg
[~2017-01-17 12:48] MED LIST changes: -ONDA4TAB8 SL; -PHEN-640 PO; -SULF1TAB35 PO
--- OUTSIDE RECORDS SUMMARY | 2017-01-17 12:54 | XMS REPORT | Clinical Summary ---
Author Author [facility] Organization [facility] Address Unknown Phone Unavailable Care Team Providers Care Stitching Department Supervisor Name Role Phone PCP Unavailable Source Comments Some departments are not documenting in the electronic medical record. If you do not see the information that you expected, contact Release of Information in the Health Information Management department at [phone] for further assistance in locating additional records.[facility] Allergies Active Allergy Reactions Severity Noted Date [...] emulsion needed. fluticasone (FLONASE) 50 Apply 1 [place] to each Active mcg/actuation nasal spray nostril [...] (coronary artery disease) 06/03/2009 Overview: Hx of [place] 4 yrs ago Depression 06/03/2009 Arthritis 06/03/2009 [...] SCREENING 04/27/2003 PREVNAR/PNEUMOVAX (#1) 04/27/2003 INFLUENZA VACCINE 09/20/2016 Implants Implanted Type Area Distribution Clerk Device Expiration Model / Identifier Date Serial / Lot Lens-04/22/2004 Other / Implanted: 04/22/2004 (Quantity not / on file) [id number]/7/[id number] Stent / Implanted: 01/27/2004 by Bobby / MD Karina (Quantity not on file) [id number] Results Not on filefrom Last 3 Months
--- OUTSIDE RECORDS SUMMARY | 2017-01-17 13:10 | XMS REPORT ---
Author Author GRACIA BELLA [facility] Address [address] [place] [id number] Care Team Providers Care Rice Farmer Name Role Phone GRACIA BELLA Unavailable PROBLEMS Unknown Problems ALLERGIES No Information SOCIAL HISTORY Never Assessed PLAN OF CARE VITAL SIGNS MEDICATIONS Unknown Medications RESULTS No Results PROCEDURES No Known procedures IMMUNIZATIONS No Known Immunizations
[2017-01-17 13:52] LABS: BILIRUBIN,URINE NEGATIVE (NEGATIVE); KETONES,URINE NEGATIVE (NEGATIVE); LEUKOCYTE ESTERASE ,URINE 3+ (NEGATIVE); NITRITE,URINE POSITIVE (NEGATIVE); PH,URINE 6 (5-9); PROTEIN,URINE 2+ (NEGATIVE); UROBILINOGEN,URINE NORMAL (NORMAL)
[2017-01-17] MEDS ORDERED: ONDANSETRON 4 MG (ZOFRAN) ORAL DISSOLVE TAB SL ONE (14:00)
[2017-01-17] MEDS ORDERED: cefTRIAXone 1 GM (ROCEPHIN) VIAL IM ONE (14:00)
[2017-01-17] MEDS ORDERED: LIDOCAINE 1% INJ 20 ML (XYLOCAINE) VIAL INJ ONE (14:00)
[2017-01-17] MEDS ORDERED: HYDROcodone/APAP 5 MG/325 MG (LORTAB) TAB PO ONE (14:00)
[2017-01-17 14:02] LABS: WBC,URINE TNTC /HPF
--- NOTE | 2017-01-17 14:55 | ED GU-Female ---
General Chief Complaint: -Female Stated Complaint: DECREASED MENTAL STATUS Nursing Triage Note: [place] [facility] [place] WITH A UTI THAT HAS NOT BEEN TREATED. Nursing Sepsis Screen: No Definite Risk Source: patient Exam Limitations: no limitations History of Present Illness Time seen by provider: 13:30 Initial Comments This 76-year-old woman presents to the emergency room to address a urinary tract infection. [facility] staff reports the meropenem and cefepime were ordered for outpatient administration. However, patient does not have IV access and has poor venous access historically. There was also a conflict between the cefepime and patient's listed medication allergies, primarily an allergy to Keflex. [facility] staff directed the patient to the emergency room when they were not able to immediately contact Dr. Brewer. Patient reports she has been nauseated and vomited once today. [facility] staff states that she also appeared slightly confused which contributed to the decision to send her to the ER. Patient also complains of pelvic discomfort and dysuria. Urine culture was reviewed by this provider. Allergies and Home Medications Allergies Coded Allergies: No Known Drug Allergies (Unverified , 06/10/15) Home Medications Budesonide/Formoterol Fumarate 10.2 Gm Hfa.aer.ad, 2 PUFF INH BID, (Reported) LAST FILLED 02-24-16 Cefdinir 300 Mg Capsule, 300 MG PO BID, #14 Prescribed by: RADHA RIVAS on 01/17/17 1500 Clopidogrel Bisulfate 75 Mg Tablet, 75 MG PO DAILY, (Reported) LAST FILLED 10-01-16 #30 Dicyclomine HCl 10 Mg Capsule, 10 MG PO TID PRN for DISCOMFORT, (Reported) Duloxetine HCl 60 Mg Capsule.dr, 60 MG PO DAILY, (Reported) Ezetimibe 10 Mg Tablet, 10 MG PO DAILY, (Reported) LAST FILLED #30 10-01-16 Gabapentin 600 Mg Tablet, 600 MG PO BID, (Reported) Hydrocodone/Acetaminophen 1 Each Tablet, 1 TAB PO Q4H PRN for PAIN-MODERATE, #42 Prescribed by: MARY GORE on 11/11/16 1531 Levothyroxine Sodium 112 Mcg Tablet, 112 MCG PO DAILY, (Reported) Lorazepam 1 Mg Tablet, 1 MG PO BID for 30 Days Prescribed by: MARY GORE on 11/11/16 0956 Metoprolol Succinate 50 Mg Tab.er.24h, 50 MG PO DAILY, (Reported) Nitroglycerin 0.4 Mg Tab.subl, 0.4 MG SL UD PRN for CHEST PAIN, (Reported) Ondansetron 4 Mg Tab.rapdis, 4 MG SL Q4H PRN for NAUSEA/VOMITING-1ST LINE, #10 Prescribed by: RADHA RIVAS on 01/17/17 1500 Pantoprazole Sodium 40 Mg Tablet.dr, 40 MG PO DAILY, (Reported) Phenazopyridine HCl 200 Mg Tablet, 1 TAB PO TID PRN for PAIN-MILD TO MODERATE, # 10 Prescribed by: RADHA RIVAS on 01/17/17 1500 Prednisone 10 Mg Tab, 50 MG PO DAILY, #21 Take 6 tabs (60mg) daily, decrease by 1 tab (10mg) daily. Prescribed by: MARY GORE on 11/11/16 0956 Pregabalin 75 Mg Capsule, 75 MG PO BID, (Reported) Ropinirole HCl 4 Mg Tablet, 8 MG PO HS, (Reported) TAKES 2 (4MG) TABLETS Sucralfate 1 Gm Tablet, 1 GM PO ACHS, (Reported) Sulfamethoxazole/Trimethoprim 1 Each Tablet, 1 EACH PO BID, #14 Prescribed by: RADHA RIVAS on 01/17/17 1500 Constitutional: no symptoms reported EENTM: no symptoms reported Respiratory: no symptoms reported Cardiovascular: no symptoms reported Gastrointestinal: see HPI Genitourinary: see HPI : No Musculoskeletal: no symptoms reported Skin: no symptoms reported Psychiatric/Neurological: See HPI Endocrine: No Symptoms Reported Past Uecjhvf-Acnnoo-Zyxqxs Hx Patient Social History Alcohol Use: Past History Recreational Drug Use: No Smoking Status: Former Smoker Type Used: Cigarettes Former Smoker, Quit: Mar 26, 1996 Recent Foreign Travel: No Contact w/Someone Who Travel: No Recent Infectious Disease Expo: No Recent Hopitalizations: No Immunizations Up To Date Tetanus Booster (TDap): Unknown PED Vaccines UTD: No Date of Pneumonia Vaccine: Apr 22, 2009 Date of Influenza Vaccine: Mar 30, 2016 Seasonal Allergies Seasonal Allergies: Yes Surgeries History of Surgeries: Yes (COLOSTOMY, KYPHOPLASTY; CARDIAC CATH WITH STENTS X 2 ; EGD/COLONOSCOPIES ) Surgeries: Abdominal, Appendectomy, Bowel Surgery, Cardiac, Coronary Stent, Hysterectomy, Orthopedic, Tonsillectomy Respiratory History of Respiratory Disorde: Yes Respiratory Disorders: COPD Currently Using CPAP: No Currently Using BIPAP: No Cardiovascular History of Cardiac Disorders: Yes (STENTS X2) Cardiac Disorders: Coronary Artery Disease, Deep Vein Thrombosis, Hypertension Neurological History of Neurological Disord: No Neurological Disorders: Vertigo 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 System Hx 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 Disorders: No 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 Genitourinary Genitourinary Disorders: UTI-Chronic Gastrointestinal History of Gastrointestinal Di: Yes (COLOSTOMY; PARASTOMAL HERNIA) Gastrointestinal Disorders: Abdominal Hernia, Gastroesophageal Reflux, Diverticulosis, Esophagitis Musculoskeletal History of Musculoskeletal Dis: Yes (compression fracture status post kyphoplasty) Musculoskeletal Disorders: Osteoporosis, Arthritis, Chronic Back Pain, Fractures Endocrine History of Endocrine Disorders: Yes (HYPOTHYROID) Endocrine Disorders: Hypothyroidsim HEENT History of HEENT Disorders: No HEENT Disorders: Cataract Loss of Vision: Denies Hearing Impairment: Denies Cancer History of Cancer: No Psychosocial History of Psychiatric Problem: Yes Behavioral Health Disorders: Anxiety, Depression Integumentary History of Skin or Integumenta: No Blood Transfusions History of Blood Disorders: Yes (anemia post op epideral site,bld transfusion) Adverse Reaction to a Blood Tr: No Family Medical History Family Medial History: Family history: Hypertension G8 BROTHER Myocardial infarction 19 MOTHER G8 BROTHER Physical Exam Vital Signs Vital Sign - Last 12Hours 01/17/17 13:00 Temp 97.5 Pulse 79 Resp 18 B/P (MAP) 127/77 Pulse Ox 95 Capillary Refill : Less Than 3 Seconds General Appearance: WD/WN, no apparent distress HEENT: PERRL/EOMI, normal ENT inspection, other (Oropharynx appears dry) Neck: normal inspection Cardiovascular: regular rate, rhythm, no edema, no murmur Respiratory: lungs clear, normal breath sounds, no respiratory distress, no accessory muscle use Gastrointestinal: normal bowel sounds, soft, no organomegaly, other (Colostomy intact. Mild tenderness around the colostomy which patient reports is chronic due to hernia. Tenderness in the suprapubic area.) Extremities: normal inspection, no pedal edema Neurologic/Psychiatric: wool hat hydraulicker II-XII nml as tested, no motor/sensory deficits, alert, normal mood/affect, oriented x 3 Skin: normal color, warm/dry Progress/Results/Core Measures Suspected Sepsis Recent Fever Within 48 Hours: No Infection Criteria Present: Documented Infection New/Unexplained Altered Menta: No Sepsis Screen: No Definite Risk Sepsis Diagnosis: SIRS Temperature:97.5 Pulse: 79 Respiratory Rate: 18 Blood Pressure 127 /77 Mean: 94 Results/Orders Lab Results Laboratory Tests Test 01/17/17 13:04 Range/Units Urine Color YELLOW Urine Clarity CLEAR Urine pH 6 5-9 Urine Specific [place] 1.015 L 1.016-1.022 Urine Protein 2+ H NEGATIVE Urine Glucose (UA) NEGATIVE NEGATIVE Urine Ketones NEGATIVE NEGATIVE Urine Nitrite POSITIVE H NEGATIVE Urine Bilirubin NEGATIVE NEGATIVE Urine Urobilinogen NORMAL NORMAL MG/DL Urine Leukocyte Esterase 3+ H NEGATIVE Urine RBC (Auto) 3+ H NEGATIVE Urine RBC 2-5 H /HPF Urine WBC TNTC H /HPF Urine Squamous Epithelial Cells NONE /HPF Urine Crystals NONE /LPF Urine Bacteria LARGE H /HPF Urine Casts NONE /LPF Urine Mucus NEGATIVE /LPF Urine Culture Indicated YES Micro Results Microbiology 01/17/17 Urine Culture - Final, Complete Enterobacter Aerogenes Proteus Mirabilis My Orders Orders - RADHA PAREDES MD Ua Culture If Indicated (01/17/17 13:40) Ceftriaxone Injection (Rocephin Injectio (01/17/17 14:00) Lidocaine 1% Injection (Xylocaine 1% Inj (01/17/17 14:00) Hydrocodone/Apap 5/325 Tablet (Lortab 5 (01/17/17 14:00) Ondansetron Oral Dissolve Tab (Zofran (01/17/17 14:00) Urine Culture (01/17/17 13:04) Medications Given in ED Vital Signs/I&O Capillary Refill : Less Than 3 Seconds Blood Pressure Mean: 94 Progress Note : Progress Note Patient was insistent that she did not have any antibiotic allergies. Review of her hospital chart notes that she has received multiple prescriptions for Cipro and has received multiple doses of Rocephin during hospital admissions. She has also received a prescription for cefuroxime in the past. Patient reports she has had no difficulty with any of these medications. Urine culture results were again reviewed. Case was discussed with Dr. Brewer. Since vital signs are stable and patient is otherwise doing fairly well, we elect to treat with Rocephin by IM administration now followed by Cefdinir and Bactrim. Patient received hydrocodone for her pain and sublingual Zofran for her nausea. She was tolerating clear liquids well prior to dismissal. Departure Impression Impression: Primary Impression: Urinary tract infection Qualified Codes: N39.0 - Urinary tract infection, site not specified Additional Impressions: Nausea Pelvic pain Disposition: 01 HOME, SELF-CARE Condition: Improved Departure-Patient Inst. Referrals: TORIBIO BREWER DO (PCP/Family) Primary Care Physician Patient Instructions: Urinary Tract Infection, Adult (DC) Add. Discharge Instructions: Encourage plenty of clear liquids. Complete antibiotics as prescribed. According to your urine culture, you do not need parenteral (IV or injectable) antibiotics. Use previously prescribed hydrocodone for pain. For dysuria and pelvic pain specifically, you may use Pyridium as prescribed. Zofran has also been prescribed for nausea. Return to the ER if symptoms worsen. Note to alf staff: Patient reports no medication allergies. Upon review of her hospital chart it is noted that she has received multiple cephalosporins including multiple doses of IV Rocephin in the hospital. She has also been prescribed cephalosporins and Cipro multiple times for outpatient use. Please clarify your allergy list with patient and her records. All discharge instructions reviewed with patient and/or family. Voiced understanding. Scripts Phenazopyridine HCl (Pyridium) 200 Mg Tablet 1 TAB PO TID Y for PAIN-MILD TO MODERATE, #10 TAB Prov: RADHA PAREDES MD 01/17/17 Ondansetron (Zofran Odt) 4 Mg Tab.rapdis 4 MG SL Q4H Y for NAUSEA/VOMITING-1ST LINE, #10 TAB Prov: RADHA PAREDES MD 01/17/17 Cefdinir (Cefdinir) 300 Mg Capsule 300 MG PO BID, #14 CAP Prov: RADHA PAREDES MD 01/17/17 Sulfamethoxazole/Trimethoprim (Bactrim Ds Tablet) 1 Each Tablet 1 EACH PO BID, #14 TAB Prov: RADHA PAREDES MD 01/17/17 Copy Copies To 1: TORIBIO BREWER JOSHUA T MD Jan 17, 2017 14:55
[2017-01-17] MEDS ORDERED: CEFD300C3 PO (15:00)
[2017-01-17] MEDS ORDERED: ONDA4TAB8 SL (15:00)
[2017-01-17] MEDS ORDERED: PHEN-640 PO (15:00)
[2017-01-17] MEDS ORDERED: SULF1TAB35 PO (15:00)
[2017-01-17 15:03] VITALS: BP 131/72
== END 2017-01-17 15:03 | disposition home or self-care (01) ==
LOC: EDUNIT# 12:48 → ER 12:50
DX: N39.0 Urinary tract infection, site not specified (principal); J44.9 Chronic obstructive pulmonary disease, unspecified; I25.10 Atherosclerotic heart disease of native coronary artery without angina pectoris; I10 Essential (primary) hypertension; M81.0 Age-related osteoporosis without current pathological fracture; M19.90 Unspecified osteoarthritis, unspecified site; E03.9 Hypothyroidism, unspecified; K21.9 Gastro-esophageal reflux disease without esophagitis; F41.9 Anxiety disorder, unspecified; F32.9 Major depressive disorder, single episode, unspecified; Z86.718 Personal history of other venous thrombosis and embolism; Z87.891 Personal history of nicotine dependence; Z93.3 Colostomy status; Z95.5 Presence of coronary angioplasty implant and graft; Z82.49 Family history of ischemic heart disease and other diseases of the circulatory system; Z90.49 Acquired absence of other specified parts of digestive tract; Z90.710 Acquired absence of both cervix and uterus; Z90.89 Acquired absence of other organs; Z87.19 Personal history of other diseases of the digestive system
CPT/HCPCS: 81000; 87077; 87088; 87186; 99284

== ENCOUNTER 2017-01-20 22:34 | Emergency (ER) | payer MEDICARE, MEDICAID ==
[~2017-01-20] VITALS: Ht 154.9 cm; Wt 68.2 kg
[~2017-01-20 22:34] MED LIST changes: +ONDA4TAB8 SL; +PHEN-640 PO; +SULF1TAB35 PO
[2017-01-20] MEDS ORDERED: NS IV 1000 ML 1,000 ML IV ONE (22:40)
--- OUTSIDE RECORDS SUMMARY | 2017-01-20 22:40 | XMS REPORT | Clinical Summary ---
Author Author [facility] Organization [facility] Address Unknown Phone Unavailable Care Team Providers Care Bobbin Fixer Name Role Phone PCP Unavailable Source Comments Some departments are not documenting in the electronic medical record. If you do not see the information that you expected, contact Release of Information in the Health Information Management department at [phone] for further assistance in locating additional records.[facility] Allergies Active Allergy Reactions Severity Noted [...] emulsion needed. fluticasone (FLONASE) 50 Apply 1 [place] to each Active mcg/actuation nasal spray nostril [...] (coronary artery disease) 06/03/2009 Overview: Hx of [place] 4 yrs ago Depression 06/03/2009 Arthritis 06/03/2009 [...] INFLUENZA VACCINE 09/20/2016 Implants Implanted Type Area Environmental Restoration Planner Device Expiration Model / Identifier Date Serial / Lot Lens-04/22/2004 Other / Implanted: 04/22/2004 (Quantity not / on file) [id number]/7/2004 Stent / Implanted: 01/27/2004 by Bobby / MD Karina (Quantity not on file) [id number] Results Not on filefrom Last 3 Months
[2017-01-20] MEDS ORDERED: NALOXONE 0.4 MG/ML 1 ML (NARCAN) VIAL IV ONE (22:45)
--- NOTE | 2017-01-20 22:51 | ED Neurological Problem ---
General Chief Complaint: Unresponsive Stated Complaint: AMS Source: patient, EMS notes reviewed, longterm records, old records Exam Limitations: clinical condition History of Present Illness Time seen by provider: 22:40 Initial Comments Patient has ER by EMS with a chief complaint that per longterm staff at [facility] where she lives they went to get her up for dinner tonight and she was unresponsive and would not get up. She was breathing and only responding to noxious stimuli. MS is only get their her pupils are pinpoint. Old records indicate the patient has had trips to the ER in the past for opiate narcosis. No history of fall. Last known well time was 1700 tonight. Medical record indicates she is on Bactrim for UTI through I've more days. She is also on Omnicef her UTI for 5 more days. She has lorazepam 1 mg twice a day, Plavix, Lyrica, temazepam, hydrocodone 10/325 every 4 hours when necessary. Patient gives no meaningful history and only insensible grunts when asked questions. After the patient woke up she had a much better history saying that more recently she is been seen in the ER and was started on antibiotics for her UTI. She also has had a problem for the past couple weeks of difficulty swallowing her food and pills area she has a history of esophageal stenosis and has had to see a GI doctor in the past to have her esophagus stretched. She was told more recently that her partner alliance manager in [facility] was no longer working there today and she needs to find another one. Allergies and Home Medications Allergies Coded Allergies: No Known Drug Allergies (Unverified , 06/10/15) Home Medications Budesonide/Formoterol Fumarate 10.2 Gm Hfa.aer.ad, 2 PUFF INH BID, (Reported) LAST FILLED 02-24-16 Cefdinir 300 Mg Capsule, 300 MG PO BID, #14 Prescribed by: RADHA RIVAS on 01/17/17 1500 Clopidogrel Bisulfate 75 Mg Tablet, 75 MG PO DAILY, (Reported) LAST FILLED 10-01-16 #30 Dicyclomine HCl 10 Mg Capsule, 10 MG PO TID PRN for DISCOMFORT, (Reported) Duloxetine HCl 60 Mg Capsule.dr, 60 MG PO DAILY, (Reported) Ezetimibe 10 Mg Tablet, 10 MG PO DAILY, (Reported) LAST FILLED #30 10-01-16 Gabapentin 600 Mg Tablet, 600 MG PO BID, (Reported) Hydrocodone/Acetaminophen 1 Each Tablet, 1 TAB PO Q4H PRN for PAIN-MODERATE, #42 Prescribed by: MARY GORE on 11/11/16 1531 Levothyroxine Sodium 112 Mcg Tablet, 112 MCG PO DAILY, (Reported) Lorazepam 1 Mg Tablet, 1 MG PO BID for 30 Days Prescribed by: MARY GORE on 11/11/16 0956 Metoprolol Succinate 50 Mg Tab.er.24h, 50 MG PO DAILY, (Reported) Nitroglycerin 0.4 Mg Tab.subl, 0.4 MG SL UD PRN for CHEST PAIN, (Reported) Ondansetron 4 Mg Tab.rapdis, 4 MG SL Q4H PRN for NAUSEA/VOMITING-1ST LINE, #10 Prescribed by: RADHA RIVAS on 01/17/17 1500 Pantoprazole Sodium 40 Mg Tablet.dr, 40 MG PO DAILY, (Reported) Phenazopyridine HCl 200 Mg Tablet, 1 TAB PO TID PRN for PAIN-MILD TO MODERATE, # 10 Prescribed by: RADHA RIVSA on 01/17/17 1500 Prednisone 10 Mg Tab, 50 MG PO DAILY, #21 Take 6 tabs (60mg) daily, decrease by 1 tab (10mg) daily. Prescribed by: MARY GORE on 11/11/16 0956 Pregabalin 75 Mg Capsule, 75 MG PO BID, (Reported) Ropinirole HCl 4 Mg Tablet, 8 MG PO HS, (Reported) TAKES 2 (4MG) TABLETS Sucralfate 1 Gm Tablet, 1 GM PO ACHS, (Reported) Sulfamethoxazole/Trimethoprim 1 Each Tablet, 1 EACH PO BID, #14 Prescribed by: RADHA RIVAS on 01/17/17 1500 Constitutional: see HPI (patient unable to give a review of systems second or 2 sedation) Past Sgdnkou-Jhwgfe-Cqltvg Hx Patient Social History Alcohol Use: Denies Use Recreational Drug Use: No Smoking Status: Former Smoker Type Used: Cigarettes Former Smoker, Quit: Mar 26, 1996 Recent Hopitalizations: No Immunizations Up To Date Tetanus Booster (TDap): Unknown PED Vaccines UTD: No Date of Pneumonia Vaccine: Apr 22, 2009 Date of Influenza Vaccine: Mar 30, 2016 Seasonal Allergies Seasonal Allergies: Yes Surgeries History of Surgeries: Yes (COLOSTOMY, KYPHOPLASTY; CARDIAC CATH WITH STENTS X 2 ; EGD/COLONOSCOPIES ) Surgeries: Abdominal, Appendectomy, Bowel Surgery, Cardiac, Coronary Stent, Hysterectomy, Orthopedic, Tonsillectomy Respiratory History of Respiratory Disorde: Yes Respiratory Disorders: COPD Currently Using CPAP: No Currently Using BIPAP: No Cardiovascular History of Cardiac Disorders: Yes (STENTS X2) Cardiac Disorders: Coronary Artery Disease, Deep Vein Thrombosis, Hypertension Neurological History of Neurological Disord: No Neurological Disorders: Vertigo 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 System Hx 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 Disorders: No 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 Genitourinary Genitourinary Disorders: UTI-Chronic Gastrointestinal History of Gastrointestinal Di: Yes (COLOSTOMY; PARASTOMAL HERNIA) Gastrointestinal Disorders: Abdominal Hernia, Gastroesophageal Reflux, Diverticulosis, Esophagitis Musculoskeletal History of Musculoskeletal Dis: Yes (compression fracture status post kyphoplasty) Musculoskeletal Disorders: Osteoporosis, Arthritis, Chronic Back Pain, Fractures Endocrine History of Endocrine Disorders: Yes (HYPOTHYROID) Endocrine Disorders: Hypothyroidsim HEENT History of HEENT Disorders: No HEENT Disorders: Cataract Loss of Vision: Denies Hearing Impairment: Denies Cancer History of Cancer: No Psychosocial History of Psychiatric Problem: Yes Behavioral Health Disorders: Anxiety, Depression Integumentary History of Skin or Integumenta: No Blood Transfusions History of Blood Disorders: Yes (anemia post op epideral site,bld transfusion) Adverse Reaction to a Blood Tr: No Family Medical History Family Medial History: Family history: Hypertension G8 BROTHER Myocardial infarction 19 MOTHER G8 BROTHER Physical Exam Vital Signs Vital Sign - Last 12Hours 01/20/17 22:47 Temp 97.8 Pulse 85 Resp 18 B/P (MAP) 112/89 (97) Pulse Ox 100 Capillary Refill : General Appearance: WD/WN, no apparent distress, other (somnolent) HEENT: TMs normal, pharynx normal (oral mucosa dry), other (pupils are pinpoint and nonreactive to light. bilat) Neck: non-tender, supple, normal inspection Respiratory: chest non-tender, lungs clear, normal breath sounds Cardiovascular: normal peripheral pulses, regular rate, rhythm, no edema Peripheral Pulses: 2+ Dorsalis Pedis (R), 2+ Left Dors-Pedis (L), 2+ Radial Pulses (R), 2+ Radial Pulses (L) Gastrointestinal: non tender, soft, no organomegaly, abnormal bowel sounds ( hypoactive), No distended, other (colostomy bag without any stool in it.) Extremities: non-tender, normal inspection, normal capillary refill Neurologic/Psychiatric: disoriented x 3, other (somnolent) Stroke Stroke Thrombolytic Exclusion Age 18 or Over: Yes History of CVA: No Severe Hypertension: No GI or Bleed: No Subarachnoid Hemorrhage: No Intracranial Neoplasm/Aneurysm: No Puncture of Non-Compressible V: No Recent CPR: No Diabetic Hemorrhagic Retinopat: No Organ Biopsy: No Recent Obstetric Delivery: No Significant Hepatic Dysfunctio: No NIH Stoke Scale >22: Yes Improving Symptoms: Yes Progress/Results/Core Measures Results/Orders Lab Results Laboratory Tests Test 01/20/17 22:59 Range/Units White Blood Count 8.2 4.3-11.0 10^3/uL Red Blood Count 4.88 4.35-5.85 10^6/uL Hemoglobin 13.8 11.5-16.0 G/DL Hematocrit 42 35-52 % Mean Corpuscular Volume 86 80-99 FL Mean Corpuscular Hemoglobin 28 25-34 PG Mean Corpuscular Hemoglobin Concent 33 32-36 G/DL Red Cell Distribution Width 16.4 H 10.0-14.5 % Platelet Count 309 130-400 10^3/uL Mean Platelet Volume 10.4 7.4-10.4 FL Neutrophils (%) (Auto) 43 42-75 % Lymphocytes (%) (Auto) 39 12-44 % Monocytes (%) (Auto) 10 0-12 % Eosinophils (%) (Auto) 6 0-10 % Basophils (%) (Auto) 2 0-10 % Neutrophils # (Auto) 3.6 1.8-7.8 X 10^3 Lymphocytes # (Auto) 3.2 1.0-4.0 X 10^3 Monocytes # (Auto) 0.8 0.0-1.0 X 10^3 Eosinophils # (Auto) 0.5 H 0.0-0.3 10^3/uL Basophils # (Auto) 0.1 0.0-0.1 10^3/uL Prothrombin Time 12.1 L 12.2-14.7 SEC INR Comment 0.9 0.8-1.4 Activated Partial Thromboplast Time 25 24-35 SEC Sodium Level 139 135-145 MMOL/L Potassium Level 4.8 3.6-5.0 MMOL/L Chloride Level 106 98-107 MMOL/L Carbon Dioxide Level 25 21-32 MMOL/L Anion Gap 8 5-14 MMOL/L Blood Urea Nitrogen 14 7-18 MG/DL Creatinine 0.86 0.60-1.30 MG/DL Estimat Glomerular Filtration Rate > 60 BUN/Creatinine Ratio 16 Glucose Level 86 70-105 MG/DL Calcium Level 10.3 H 8.5-10.1 MG/DL Total Bilirubin 0.5 0.1-1.0 MG/DL Aspartate Amino Transf (AST/SGOT) 16 5-34 U/L Alanine Aminotransferase (ALT/SGPT) 13 0-55 U/L Alkaline Phosphatase 106 40-136 U/L Ammonia 26 11-32 UMOL/L Total Protein 6.8 6.4-8.2 GM/DL Albumin 3.8 3.2-4.5 GM/DL My Orders Orders - ASHLEY WATTS Ct Head Wo (01/20/17 22:40) Ammonia (01/20/17 22:40) Cbc With Automated Diff (01/20/17 22:40) Comprehensive Metabolic Panel (01/20/17 22:40) Drug Screen Stat (Urine) (01/20/17 22:40) Protime With Inr (01/20/17 22:40) Partial Thromboplastin Time (01/20/17 22:40) Ua Culture If Indicated (01/20/17 22:40) Chest 1 View, Ap/Pa Only (01/20/17 22:40) Saline Lock/Iv-Start (01/20/17 22:40) Ns Iv 1000 Ml (Sodium Chloride 0.9%) (01/20/17 22:40) Naloxone Injection (Narcan Injection) (01/20/17 22:45) Medications Given in ED Current Medications Medications Dose Ordered Sig/Perez Route Start Time Stop Time Status Last Admin Dose Admin Naloxone HCl 0.4 mg ONCE ONCE IV 01/20/17 22:45 01/20/17 22:49 DC 01/20/17 22:54 0.4 MG Sodium Chloride 1,000 ml @ 0 mls/hr Q0M ONCE IV 01/20/17 22:40 01/20/17 22:49 DC 01/20/17 22:54 0 MLS/HR Vital Signs/I&O Vital Sign - Last 12Hours 01/20/17 22:47 Temp 97.8 Pulse 85 Resp 18 B/P (MAP) 112/89 (97) Pulse Ox 100 Progress Note : Time: 23:09 Progress Note Patient's no acute distress and after giving her Narcan she immediately woke up and told us that she was trying very hard to get her staff's attention so she could tell that she was in pain and needed more pain medication. Patient gives very little other meaningful history. Records indicate the patient also has a UTI as been treated with cefdinir and Bactrim outpatient. She has no leukocytosis so we'll let her continue her outpatient therapy and this may have contributed to her opiate overdose. Diagnostic Imaging Diagonstic Imaging: CT Plain Films/CT/US/NM/MRI: head Comments Stat read impression: No acute findings. Reviewed: Reviewed by Me Diagonstic Imaging: Xray Plain Films/CT/US/NM/MRI: chest (1v) Comments No acute cardio pulmonary processes noted Reviewed: Reviewed by Me Departure Impression Impression: Primary Impression: Opiate or related narcotic overdose Qualified Codes: T40.601A - Poisoning by unspecified narcotics, accidental ( unintentional), initial encounter Additional Impressions: UTI (urinary tract infection) Qualified Codes: N30.00 - Acute cystitis without hematuria Constipation due to opioid therapy Esophageal stenosis Disposition: 01 HOME, SELF-CARE Condition: Improved Departure-Patient Inst. Decision time for Depature: 00:15 Referrals: TORIBIO FOFANA DO (PCP/Family) Primary Care Physician Patient Instructions: Narcotic Overdose (DC) Add. Discharge Instructions: While you're on your antibiotics for your urinary tract infection you need to drink lots and lots of fluids. Use the Dulcolax up to 4 times a day as necessary to get your bowels moving again. You should also reduce the amount of opiates to using to to maybe as many as 3 times a day or less. Contact the primary care physician about getting an appointment with a partner alliance manager to have an esophageal dilatation. All discharge instructions reviewed with patient and/or family. Voiced understanding. Scripts Bisacodyl (Dulcolax) 5 Mg Tablet. 5 MG PO QID Y for CONSTIPATION-1ST LINE for 30 Days, #30 TAB 0 Refills Prov: ASHLEY WATTS 01/21/17 Copy Copies To 1: TORIBIO FOFANA DO ASHLEY WATTS Jan 20, 2017 22:51
[2017-01-20 23:09] LABS: BASOPHILS # (AUTO) 0.1 10^3/uL (0.0-0.1); BASOPHILS % (AUTO) 2 % (0-10); EOSINOPHILS # (AUTO) 0.5 10^3/uL (0.0-0.3); EOSINOPHILS % (AUTO) 6 % (0-10); LYMPHOCYTES # (AUTO) 3.2 X 10^3 (1.0-4.0); LYMPHOCYTES % (AUTO) 39 % (12-44); MEAN CORPUSCULAR HEMOGLOBIN 28 PG (25-34); MEAN CORPUSCULAR HGB CONC 33 G/DL (32-36); MEAN CORPUSCULAR VOLUME 86 FL (80-99); MEAN PLATELET VOLUME 10.4 FL (7.4-10.4); MONOCYTES # (AUTO) 0.8 X 10^3 (0.0-1.0); MONOCYTES % (AUTO) 10 % (0-12); NEUTROPHILS # (AUTO) 3.6 X 10^3 (1.8-7.8); NEUTROPHILS % (AUTO) 43 % (42-75); PLATELET COUNT 309 10^3/uL (130-400); RED BLOOD COUNT 4.88 10^6/uL (4.35-5.85); RED CELL DISTRIBUTION WIDTH 16.4 % (10.0-14.5); WHITE BLOOD COUNT 8.2 10^3/uL (4.3-11.0)
[2017-01-20 23:19] LABS: INR 0.9 (0.8-1.4); PROTHROMBIN TIME PATIENT 12.1 SEC (12.2-14.7)
[2017-01-20 23:29] LABS: ALANINE AMINOTRANSFERASE 13 U/L (0-55); ALBUMIN 3.8 GM/DL (3.2-4.5); AMMONIA 26 UMOL/L (11-32); ANION GAP 8 MMOL/L (5-14); ASPARTATE AMINO TRANSFERASE 16 U/L (5-34); BILIRUBIN,TOTAL 0.5 MG/DL (0.1-1.0); BLOOD UREA NITROGEN 14 MG/DL (7-18); BUN/CREATININE RATIO 16; CALCIUM 10.3 MG/DL (8.5-10.1); CARBON DIOXIDE 25 MMOL/L (21-32); CHLORIDE 106 MMOL/L (98-107); CREATININE SERUM 0.86 MG/DL (0.60-1.30); GFR ESTIMATED > 60; GLUCOSE 86 MG/DL (70-105); POTASSIUM 4.8 MMOL/L (3.6-5.0); SODIUM 139 MMOL/L (135-145); TOTAL PROTEIN 6.8 GM/DL (6.4-8.2)
[2017-01-21] MEDS ORDERED: BISA-65 PO (00:17)
[2017-01-21 00:53] VITALS: BP 112/89
--- NOTE | 2017-01-21 06:35 | Diagnostic Imaging Report ---
PROCEDURE: CT head without contrast. TECHNIQUE: Multiple contiguous axial images were obtained through the brain without the use of intravenous contrast. INDICATION: Altered mental status. COMPARISON: 03/26/2016 FINDINGS: Mild atrophy. No intracranial hemorrhage. 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 No definite CT evidence of an acute ischemic infarction. No intracranial mass, mass effect, midline shift, herniation, hydrocephalus, or extra-axial fluid collection. The left ocular lenses absent. Scattered vascular calcifications. The paranasal sinuses are clear. The calvarium and extra calvarial soft tissues are unremarkable. IMPRESSION: No acute intracranial abnormality. Atrophy with associated background chronic ischemic changes. If there is clinical concern for underlying recent infarction, further evaluation with MRI of the brain could be obtained. Dictated by: Dictated on workstation # [id number]
--- NOTE | 2017-01-21 06:42 | Diagnostic Imaging Report ---
INDICATION: Altered mental status. COMPARISON: 12/09/2016 TECHNIQUE: Single frontal radiograph of the chest dated 01/20/2017 FINDINGS: The cardiac silhouette is within normal limits. No significant pulmonary vascular congestion. Mildly low lung volumes without focal pulmonary opacity. No pleural effusion. No pneumothorax. Prior vertebroplasty changes. No acute osseous abnormality. IMPRESSION: Stable examination without acute cardiopulmonary abnormality. Dictated by: Dictated on workstation # [id number]
== END 2017-01-21 00:53 | disposition home or self-care (01) ==
LOC: EDUNIT# 22:34 → ER 22:35
DX: T40.601A Poisoning by unspecified narcotics, accidental (unintentional), initial encounter (principal); K59.09 Other constipation; N39.0 Urinary tract infection, site not specified; K22.2 Esophageal obstruction; F41.9 Anxiety disorder, unspecified; F32.9 Major depressive disorder, single episode, unspecified; E03.9 Hypothyroidism, unspecified; M81.0 Age-related osteoporosis without current pathological fracture; K21.9 Gastro-esophageal reflux disease without esophagitis; I25.10 Atherosclerotic heart disease of native coronary artery without angina pectoris; J44.9 Chronic obstructive pulmonary disease, unspecified; I10 Essential (primary) hypertension; Z86.718 Personal history of other venous thrombosis and embolism; Z90.49 Acquired absence of other specified parts of digestive tract; Z90.89 Acquired absence of other organs; Z87.891 Personal history of nicotine dependence; Z95.5 Presence of coronary angioplasty implant and graft
CPT/HCPCS: 36415; 70450; 71010; 80053; 82140; 85025; 85610; 85730; 99283

== ENCOUNTER 2017-01-22 22:52 | Emergency (ER) | payer MEDICARE, MEDICAID ==
[~2017-01-22] VITALS: Ht 154.9 cm; Wt 68.2 kg
[~2017-01-22 22:52] MED LIST changes: +BISA-65 PO
[2017-01-22] MEDS ORDERED: NALOXONE 2 MG/2 ML (NARCAN) SYR ONE (22:56)
--- OUTSIDE RECORDS SUMMARY | 2017-01-22 22:58 | XMS REPORT | Clinical Summary ---
Author Author [facility] Organization [facility] Address Unknown Phone Unavailable Care Team Providers Care Loader Technician Name Role Phone PCP Unavailable Source Comments Some departments are not documenting in the electronic medical record. If you do not see the information that you expected, contact Release of Information in the Health Information Management department at [phone] for further assistance in locating additional records.[facility] Allergies Active Allergy Reactions Severity [...] emulsion needed. fluticasone (FLONASE) 50 Apply 1 [place] to each Active mcg/actuation nasal spray nostril [...] (coronary artery disease) 06/03/2009 Overview: Hx of [place] 4 yrs ago Depression 06/03/2009 Arthritis 06/03/2009 [...] INFLUENZA VACCINE 09/20/2016 Implants Implanted Type Area Information Broker Device Expiration Model / Identifier Date Serial / Lot Lens-04/22/2004 Other / Implanted: 04/22/2004 (Quantity not / on file) [id number]/7/2004 Stent / Implanted: 01/27/2004 by Bobby / MD Karina (Quantity not on file) [id number] Results Not on filefrom Last 3 Months
[2017-01-22] MEDS ORDERED: LACTATED RINGERS 1,000 ML IV ONE (23:16)
[2017-01-22 23:34] LABS: BASOPHILS # (AUTO) 0.1 10^3/uL (0.0-0.1); BASOPHILS % (AUTO) 1 % (0-10); EOSINOPHILS # (AUTO) 0.5 10^3/uL (0.0-0.3); EOSINOPHILS % (AUTO) 5 % (0-10); LYMPHOCYTES # (AUTO) 3.9 X 10^3 (1.0-4.0); LYMPHOCYTES % (AUTO) 42 % (12-44); MEAN CORPUSCULAR HEMOGLOBIN 28 PG (25-34); MEAN CORPUSCULAR HGB CONC 33 G/DL (32-36); MEAN CORPUSCULAR VOLUME 85 FL (80-99); MEAN PLATELET VOLUME 10.8 FL (7.4-10.4); MONOCYTES # (AUTO) 1.2 X 10^3 (0.0-1.0); MONOCYTES % (AUTO) 14 % (0-12); NEUTROPHILS # (AUTO) 3.5 X 10^3 (1.8-7.8); NEUTROPHILS % (AUTO) 38 % (42-75); PLATELET COUNT 298 10^3/uL (130-400); RED BLOOD COUNT 4.83 10^6/uL (4.35-5.85); RED CELL DISTRIBUTION WIDTH 16.9 % (10.0-14.5); WHITE BLOOD COUNT 9.1 10^3/uL (4.3-11.0)
[2017-01-22 23:44] LABS: BILIRUBIN,URINE NEGATIVE (NEGATIVE); KETONES,URINE NEGATIVE (NEGATIVE); LEUKOCYTE ESTERASE ,URINE NEGATIVE (NEGATIVE); NITRITE,URINE NEGATIVE (NEGATIVE); PH,URINE 7 (5-9); PROTEIN,URINE NEGATIVE (NEGATIVE); UROBILINOGEN,URINE NORMAL (NORMAL)
[2017-01-22 23:55] LABS: ALANINE AMINOTRANSFERASE 13 U/L (0-55); ALBUMIN 3.7 GM/DL (3.2-4.5); ANION GAP 9 MMOL/L (5-14); ASPARTATE AMINO TRANSFERASE 19 U/L (5-34); BILIRUBIN,TOTAL 0.3 MG/DL (0.1-1.0); BLOOD UREA NITROGEN 13 MG/DL (7-18); BUN/CREATININE RATIO 16; CALCIUM 9.7 MG/DL (8.5-10.1); CARBON DIOXIDE 21 MMOL/L (21-32); CHLORIDE 109 MMOL/L (98-107); CREATININE SERUM 0.83 MG/DL (0.60-1.30); GFR ESTIMATED > 60; GLUCOSE 101 MG/DL (70-105); POTASSIUM 4.6 MMOL/L (3.6-5.0); SODIUM 139 MMOL/L (135-145); TOTAL PROTEIN 6.6 GM/DL (6.4-8.2)
[2017-01-22 23:55] LABS: SQUAMOUS EPITHELIAL CELL,UR RARE /HPF
--- NOTE | 2017-01-23 00:11 | ED General ---
General Chief Complaint: Substance Abuse Stated Complaint: OVERDOSE Nursing Triage Note: PT BROUGHT IN BY [facility] FROM [facility] WITH C/O UNRESPONSIVE. PT HAS HX OF NARCOTIC OD. Nursing Sepsis Screen: No Definite Risk Source of Information: EMS, Senior Living Records, Old Records (ALL PMH IS FROM OLD RECORDS AND [facility] RECORDS) History of Present Illness Time Seen by Provider: 22:53 Initial Comments PT ARRIVES VIA EMS FROM [facility] EMS CALLED FOR PT WITH ALTERED MENTAL STATUS, FOUND UNRESPONSIVE BY [facility] STAFF AT 2230 TONIGHT EMS GAVE NARCAN 2 MG WITH IMMEDIATE IMPROVEMENT IN MENTATION--PT NOW AWAKE, VERY RESTLESS AND AGITATED. 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 PT ALSO WITH LONG HISTORY OF SAME ISSUES WHILE SHE WAS LIVING AT HOME--EXCESSIVE USE/ABUSE/OVERDOSES OF MEDICATIONS PT WAS HERE 01/20/17 WITH EXACT SAME ISSUE--IMMEDIATELY RESPONDED TO NARCAN. LAB , CT HEAD ALL ESSENTIALLY NORMAL/NON-ACUTE PT RECENTLY TREATED FOR UTI--SEEN HERE 01/17/17 PT WITH MULTIPLE VISITS HERE. PT AGITATED / RESTLESS AND THRASHING ALL OVER, AND SPEECH IS MUMBLED AND MOSTLY INCOMPREHENSIBLE, AND NO HISTORY IS OBTAINABLE AT THIS TIME PT IS DNR/DNI PCP: DR. FOFANA Allergies and Home Medications Allergies Coded Allergies: No Known Drug Allergies (Unverified , 06/10/15) Home Medications Bisacodyl 5 Mg Tablet.dr, 5 MG PO QID PRN for CONSTIPATION-1ST LINE for 30 Days , #30 Ref 0 Prescribed by: ASHLEY WATTS on 01/21/17 0017 Budesonide/Formoterol Fumarate 10.2 Gm Hfa.aer.ad, 2 PUFF INH BID, (Reported) LAST FILLED 02-24-16 Cefdinir 300 Mg Capsule, 300 MG PO BID, #14 Prescribed by: RADHA RIVAS on 01/17/17 1500 Clopidogrel Bisulfate 75 Mg Tablet, 75 MG PO DAILY, (Reported) LAST FILLED 10-01-16 #30 Dicyclomine HCl 10 Mg Capsule, 10 MG PO TID PRN for DISCOMFORT, (Reported) Duloxetine HCl 60 Mg Capsule.dr, 60 MG PO DAILY, (Reported) Ezetimibe 10 Mg Tablet, 10 MG PO DAILY, (Reported) LAST FILLED #30 10-01-16 Gabapentin 600 Mg Tablet, 600 MG PO BID, (Reported) Hydrocodone/Acetaminophen 1 Each Tablet, 1 TAB PO Q4H PRN for PAIN-MODERATE, #42 Prescribed by: MARY GORE on 11/11/16 1531 Levothyroxine Sodium 112 Mcg Tablet, 112 MCG PO DAILY, (Reported) Lorazepam 1 Mg Tablet, 1 MG PO BID for 30 Days Prescribed by: MARY GORE on 11/11/16 0956 Metoprolol Succinate 50 Mg Tab.er.24h, 50 MG PO DAILY, (Reported) Nitroglycerin 0.4 Mg Tab.subl, 0.4 MG SL UD PRN for CHEST PAIN, (Reported) Ondansetron 4 Mg Tab.rapdis, 4 MG SL Q4H PRN for NAUSEA/VOMITING-1ST LINE, #10 Prescribed by: RADHA RIVAS on 01/17/17 1500 Pantoprazole Sodium 40 Mg Tablet.dr, 40 MG PO DAILY, (Reported) Phenazopyridine HCl 200 Mg Tablet, 1 TAB PO TID PRN for PAIN-MILD TO MODERATE, # 10 Prescribed by: RADHA RIVAS on 01/17/17 1500 Prednisone 10 Mg Tab, 50 MG PO DAILY, #21 Take 6 tabs (60mg) daily, decrease by 1 tab (10mg) daily. Prescribed by: MARY GORE on 11/11/16 0956 Pregabalin 75 Mg Capsule, 75 MG PO BID, (Reported) Ropinirole HCl 4 Mg Tablet, 8 MG PO HS, (Reported) TAKES 2 (4MG) TABLETS Sucralfate 1 Gm Tablet, 1 GM PO ACHS, (Reported) Sulfamethoxazole/Trimethoprim 1 Each Tablet, 1 EACH PO BID, #14 Prescribed by: RADHA RIVAS on 01/17/17 1500 Constitutional: other (UNABLE TO OBTAIN ANY INFORMATION FROM PT) Past Jqjzwpt-Rcnwez-Sdbuif Hx Patient Social History Alcohol Use: Denies Use Recreational Drug Use: Yes (RX DRUG ABUSE/OVERDOSES-CARMELITA OPIATES, BUT ALSO BENZODIAZEPINES) Smoking Status: Former Smoker (1 PPD) Type Used: Cigarettes Former Smoker, Quit: Mar 26, 1996 2nd Hand Smoke Exposure: Yes Recent Foreign Travel: No Contact w/Someone Who Travel: No Recent Infectious Disease Expo: No Recent Hopitalizations: No Physical Abuse: No Sexual Abuse: No Immunizations Up To Date Tetanus Booster (TDap): Unknown PED Vaccines UTD: No Date of Pneumonia Vaccine: Apr 22, 2009 Date of Influenza Vaccine: Mar 30, 2016 Seasonal Allergies Seasonal Allergies: Yes Surgeries History of Surgeries: Yes (COLON RESECTION AND COLOSTOMY FOR PERFORATED DIVERTICULUM/DIVERTICULITIS; KYPHOPLASTY X 2 ; CARDIAC CATH WITH STENTS X 2; EGD/COLONOSCOPIES AND DILATION OF ESOPHAGEAL STRICTURES; RIGHT HIP FX/ORIF 2016) Surgeries: Abdominal, Appendectomy, Bladder Surgery, Bowel Surgery, Cardiac, Coronary Stent, Hysterectomy, Oophorectomy, Orthopedic, Tonsillectomy Respiratory History of Respiratory Disorde: Yes Respiratory Disorders: Pulmonary Embolism, Sleep Apnea, COPD Currently Using CPAP: No Currently Using BIPAP: No Cardiovascular History of Cardiac Disorders: Yes (STENTS X2) Cardiac Disorders: Chronic Edema/Swelling, Coronary Artery Disease, Deep Vein Thrombosis, Heart Attack (?), High Cholesterol, Hypertension Neurological History of Neurological Disord: Yes (COGNITIVE DEFICIT) Neurological Disorders: Vertigo 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 System DIE KEEPER History: Hysterectomy, Menopausal Genitourinary History of Genitourinary Disor: Yes (INCONTINENCE) Genitourinary Disorders: Kidney Infection, Bladder Infection, UTI-Chronic Gastrointestinal History of Gastrointestinal Di: Yes (COLON RESECTION WITH COLOSTOMY--DUE TO PERFORATED DIVERTICULUM; PARASTOMAL HERNIA; DYSPHAGIA; ESOPHAGEAL STRICTURES/ DILATIONS) Gastrointestinal Disorders: Abdominal Hernia, Gastroesophageal Reflux, Diverticulosis, Esophagitis Musculoskeletal History of Musculoskeletal Dis: Yes (compression fracture status post kyphoplasty; FALLS/IMPAIRED MOBILITY; RESTLESS LEG SYNDROME; RIGHT HIP FX /ORIF 03/2016; RIGHT PALUMBO'S CYST) Musculoskeletal Disorders: Osteoporosis, Arthritis, Chronic Back Pain, Fractures Endocrine History of Endocrine Disorders: Yes (HYPOTHYROID) Endocrine Disorders: Hypothyroidsim HEENT History of HEENT Disorders: Yes (FULL DENTURES) HEENT Disorders: Cataract, Dysphagia Loss of Vision: Denies Hearing Impairment: Denies Cancer History of Cancer: No Psychosocial History of Psychiatric Problem: Yes (EXTENSIVE HISTORY OF RX DRUG OVERDOSES- CARMELITA OPIATES, WELL BENZODIAZEPINES) Behavioral Health Disorders: Anxiety, Depression Suicide Risk Score: 0 Integumentary History of Skin or Integumenta: No Blood Transfusions History of Blood Disorders: Yes (anemia post op epideral site,bld transfusion) Adverse Reaction to a Blood Tr: No Family Medical History Family Medial History: Family history: Hypertension G8 BROTHER Myocardial infarction 19 MOTHER G8 BROTHER Physical Exam Vital Signs Vital Sign - Last 12Hours 01/22/17 22:59 Temp 98.9 Pulse 70 Resp 29 B/P (MAP) 147/133 (138) Pulse Ox 98 O2 Delivery Room Air Capillary Refill : Less Than 3 Seconds General Appearance: Other (AGITATED, RESTLESS, CONSTANT THRASHING, PULLING OFF EQUIPMENT/MONITORING DEVICES, SEMI-ALERT, SPEECH MUMBLED AND MOSTLY INCOHERENT. ) HEENT: PERRL/EOMI (PUPILS PINPOINT), Other (EDENTULOUS. NO EXTERNAL EVIDENCE OF TRAUMA TO HEAD OR FACE. ORAL MUCOSA DRY) Neck: Full Range of Motion, Normal Inspection, Non Tender, Supple Respiratory: Normal Breath Sounds, No Accessory Muscle Use, No Respiratory Distress Cardiovascular: Regular Rate, Rhythm, No Edema, No JVD, No Murmur, Normal Peripheral Pulses Gastrointestinal: Non Tender, Soft, Other (COLOSTOMY BAG IN PLACE. ) Back: No CVA Tenderness, No Vertebral Tenderness Extremity: Normal Capillary Refill, Normal Range of Motion, Non Tender, No Calf Tenderness, No Pedal Edema, Other (SEVERAL OLD BRUISES TO LEFT HIP AREA) Neurologic/Psychiatric: Other (MENTATION NOTED ABOVE. MOVES ALL EXTREMITIES AND SENSORY IS GROSSLY INTACT, NO OBVIOUS FOCAL DEFICITS) Skin: Normal Color, Warm/Dry Progress/Results/Core Measures Suspected Sepsis Recent Fever Within 48 Hours: No Infection Criteria Present: None New/Unexplained Altered Menta: No Sepsis Screen: No Definite Risk Sepsis Diagnosis: SIRS Temperature:98.9 Pulse: 70 Respiratory Rate: 29 Laboratory Tests 01/22/17 23:25: White Blood Count 9.1 Blood Pressure 147 /133 Mean: 138 Laboratory Tests 01/22/17 23:25: Creatinine 0.83, Platelet Count 298, Total Bilirubin 0.3 Results/Orders Lab Results Laboratory Tests Test 01/22/17 23:25 01/22/17 23:30 Range/Units White Blood Count 9.1 4.3-11.0 10^3/uL Red Blood Count 4.83 4.35-5.85 10^6/uL Hemoglobin 13.5 11.5-16.0 G/DL Hematocrit 41 35-52 % Mean Corpuscular Volume 85 80-99 FL Mean Corpuscular Hemoglobin 28 25-34 PG Mean Corpuscular Hemoglobin Concent 33 32-36 G/DL Red Cell Distribution Width 16.9 H 10.0-14.5 % Platelet Count 298 130-400 10^3/uL Mean Platelet Volume 10.8 H 7.4-10.4 FL Neutrophils (%) (Auto) 38 L 42-75 % Lymphocytes (%) (Auto) 42 12-44 % Monocytes (%) (Auto) 14 H 0-12 % Eosinophils (%) (Auto) 5 0-10 % Basophils (%) (Auto) 1 0-10 % Neutrophils # (Auto) 3.5 1.8-7.8 X 10^3 Lymphocytes # (Auto) 3.9 1.0-4.0 X 10^3 Monocytes # (Auto) 1.2 H 0.0-1.0 X 10^3 Eosinophils # (Auto) 0.5 H 0.0-0.3 10^3/uL Basophils # (Auto) 0.1 0.0-0.1 10^3/uL Sodium Level 139 135-145 MMOL/L Potassium Level 4.6 3.6-5.0 MMOL/L Chloride Level 109 H 98-107 MMOL/L Carbon Dioxide Level 21 21-32 MMOL/L Anion Gap 9 5-14 MMOL/L Blood Urea Nitrogen 13 7-18 MG/DL Creatinine 0.83 0.60-1.30 MG/DL Estimat Glomerular Filtration Rate > 60 BUN/Creatinine Ratio 16 Glucose Level 101 70-105 MG/DL Calcium Level 9.7 8.5-10.1 MG/DL Total Bilirubin 0.3 0.1-1.0 MG/DL Aspartate Amino Transf (AST/SGOT) 19 5-34 U/L Alanine Aminotransferase (ALT/SGPT) 13 0-55 U/L Alkaline Phosphatase 104 40-136 U/L Total Protein 6.6 6.4-8.2 GM/DL Albumin 3.7 3.2-4.5 GM/DL Urine Color YELLOW Urine Clarity CLEAR Urine pH 7 5-9 Urine Specific [place] 1.010 L 1.016-1.022 Urine Protein NEGATIVE NEGATIVE Urine Glucose (UA) NEGATIVE NEGATIVE Urine Ketones NEGATIVE NEGATIVE Urine Nitrite NEGATIVE NEGATIVE Urine Bilirubin NEGATIVE NEGATIVE Urine Urobilinogen NORMAL NORMAL MG/DL Urine Leukocyte Esterase NEGATIVE NEGATIVE Urine RBC (Auto) NEGATIVE NEGATIVE Urine RBC NONE /HPF Urine WBC NONE /HPF Urine Squamous Epithelial Cells RARE /HPF Urine Crystals NONE /LPF Urine Bacteria NEGATIVE /HPF Urine Casts NONE /LPF Urine Mucus NEGATIVE /LPF Urine Culture Indicated NO Urine Opiates Screen POSITIVE H NEGATIVE Urine Oxycodone Screen NEGATIVE NEGATIVE Urine Methadone Screen NEGATIVE NEGATIVE Urine Propoxyphene Screen NEGATIVE NEGATIVE Urine Barbiturates Screen NEGATIVE NEGATIVE Ur Tricyclic Antidepressants Screen NEGATIVE NEGATIVE Urine Phencyclidine Screen NEGATIVE NEGATIVE Urine Amphetamines Screen NEGATIVE NEGATIVE Urine Methamphetamines Screen NEGATIVE NEGATIVE Urine Benzodiazepines Screen POSITIVE H NEGATIVE Urine Cocaine Screen NEGATIVE NEGATIVE Urine Cannabinoids Screen NEGATIVE NEGATIVE My Orders Orders - BETTY MAZARIEGOS DO Naloxone Injection (Narcan Injection) (01/22/17 22:56) Saline Lock/Iv-Start (01/22/17 23:16) Monitor-Rhythm Ecg Trace Only (01/22/17 23:16) Cbc With Automated Diff (01/22/17 23:16) Comprehensive Metabolic Panel (01/22/17 23:16) Drug Screen Stat (Urine) (01/22/17 23:16) Ua Culture If Indicated (01/22/17 23:16) Saline Lock/Iv-Start (01/22/17 23:16) Lactated Ringers (Lr 1000 Ml Iv Solution (01/22/17 23:16) Medications Given in ED Current Medications Medications Dose Ordered Sig/Perez Route Start Time Stop Time Status Last Admin Dose Admin Lactated Ringer's 1,000 ml @ 0 mls/hr Q0M ONCE IV 01/22/17 23:16 01/22/17 23:19 DC 01/22/17 23:40 0 MLS/HR Vital Signs/I&O Vital Sign - Last 12Hours 01/22/17 22:59 Temp 98.9 Pulse 70 Resp 29 B/P (MAP) 147/133 (138) Pulse Ox 98 O2 Delivery Room Air Capillary Refill : Less Than 3 Seconds Blood Pressure Mean: 138 Progress Note : Progress Note PT REMAINED RESTLESS AND AGITATED AND SEMI-ALERT WITH MUMBLED AND MOSTLY INCOHERENT SPEECH THROUGHOUT ER STAY. MORE ALERT WITH VERBAL AND TACTILE STIMULATION PT ABLE TO FOLLOW SIMPLE COMMANDS CONSTANTLY PULLING OFF MONITORING DEVICES, ETC. PT PULLED OUT IV DURING COURSE OF ER STAY, WELL. PRIOR TO PT BEING DISMISSED, PT WAS GIVEN A DOSE OF NARCAN, WITH IMMEDIATE IMPROVEMENT IN MENTATION--PT NOW VERY AWAKE, ALERT, ORIENTED TO PLACE AND PERSON , AND EXTREMELY BELLIGERANT AND CURSING STAFF--CALLING HOSPITAL AND STAFF FOUL NAMES, STATING SHE WAS SUING ALL OF US, ETC. SPEECH IS NOW VERY CLEAR AND VERY DIRECT TO SPECIFIC STAFF MEMBERS. PUPILS NO LONGER PINPOINT PT ALSO HITTING AND THREATENING STAFF MEMBERS WHO ARE TRYING TO ASSIST HER INTO WHEELCHAIR. LPTA FROM [facility] IS VERY FAMILIAR WITH THIS PT AND THE FACT THAT THIS HAS OCCURRED SEVERAL TIMES IMMEDIATELY AFTER SHE HAS A VISIT FROM HER SON-- THESE VISITS ARE NOT SUPERVISED BY STAFF. RN REPORT BACK TO [facility], PRIOR TO DISMISSAL, INCLUDED SUGGESTION THAT ALL VISITS TO PT SHOULD BE SUPERVISED FROM NOW ON. Departure Impression Impression: Primary Impression: ALTERED MENTAL STATUS DUE TO EXCESSIVE OPIATE USE Additional Impression: POSSIBLE EXCESSIVE BENZODIAZEPINE USE Disposition: 03 XFER SNF Condition: Improved Departure-Patient Inst. Referrals: TORIBIO FOFANA DO (PCP/Family) Primary Care Physician Patient Instructions: Prescription Drug Abuse (DC) Add. Discharge Instructions: TAKE MEDICATIONS PRESCRIBED, EXCEPT HOLD ANY NARCOTIC PAIN MEDICATIONS FOR AT LEAST 12 [address] FOLLOW UP WITH DR. FOFANA FOR FURTHER CARE All discharge instructions reviewed with patient and/or family. Voiced understanding. BETTY MAZARIEGOS DO Jan 23, 2017 00:11
[2017-01-23] MEDS ORDERED: NALOXONE 2 MG/2 ML (NARCAN) SYR ONE (00:36)
[2017-01-23 00:45] VITALS: BP 147/133
[2017-01-23] MEDS ORDERED: HYDR-3820 PO (11:15)
[2017-01-23] MEDS ORDERED: FLUT1AER IH (11:15)
[2017-01-23] MEDS ORDERED: MIRT15TA PO (11:15)
[2017-01-23] MEDS ORDERED: PHEN-640 PO (11:15)
[2017-01-23] MEDS ORDERED: PREG50CA2 PO (11:15)
[2017-01-23] MEDS ORDERED: LORA1TAB PO (11:15)
[2017-01-23] MEDS ORDERED: MENT118G TP (11:15)
[2017-01-23] MEDS ORDERED: TEMA15CA PO (11:15)
[2017-01-23] MEDS ORDERED: CEFD300C3 PO (11:16)
[2017-01-23] MEDS ORDERED: SULF1TAB35 PO (11:16)
[2017-01-23] MEDS ORDERED: ONDN4T PO (11:16)
[2017-01-23] MEDS ORDERED: BISA5TAB8 PO (11:16)
[2017-01-23] MEDS ORDERED: NYST1POW22 TOP (11:16)
== END 2017-01-23 00:45 ==
LOC: EDUNIT# 22:52 → ER 22:54
DX: T40.601A Poisoning by unspecified narcotics, accidental (unintentional), initial encounter (principal); R41.82 Altered mental status, unspecified; F41.9 Anxiety disorder, unspecified; M81.0 Age-related osteoporosis without current pathological fracture; M19.90 Unspecified osteoarthritis, unspecified site; E03.9 Hypothyroidism, unspecified; K21.9 Gastro-esophageal reflux disease without esophagitis; F32.9 Major depressive disorder, single episode, unspecified; I25.10 Atherosclerotic heart disease of native coronary artery without angina pectoris; I25.2 Old myocardial infarction; E78.00 Pure hypercholesterolemia, unspecified; J44.9 Chronic obstructive pulmonary disease, unspecified; G47.30 Sleep apnea, unspecified; I10 Essential (primary) hypertension; Z86.718 Personal history of other venous thrombosis and embolism; Z87.19 Personal history of other diseases of the digestive system; Z82.49 Family history of ischemic heart disease and other diseases of the circulatory system; Z87.440 Personal history of urinary (tract) infections; Z90.710 Acquired absence of both cervix and uterus; Z93.3 Colostomy status; Z90.49 Acquired absence of other specified parts of digestive tract; Z95.5 Presence of coronary angioplasty implant and graft; Z87.891 Personal history of nicotine dependence
CPT/HCPCS: 36415; 51701; 80053; 80306; 81000; 85025; 93041

== ENCOUNTER 2017-01-23 08:12 | Observation (INO) | payer MEDICARE, MEDICAID ==
[~2017-01-23] VITALS: Ht 154.9 cm; Wt 67.6 kg
[2017-01-23] VITALS (13 sets, daily range): BP systolic 140–194; BP diastolic 73–102
[2017-01-23] MEDS ORDERED: NS IV 1000 ML 1,000 ML IV ONE (08:16)
--- OUTSIDE RECORDS SUMMARY | 2017-01-23 08:19 | XMS REPORT | Clinical Summary ---
Author Author [facility] Organization [facility] Address Unknown Phone Unavailable Care Team Providers Care Brewing Technician Name Role Phone PCP Unavailable Source Comments Some departments are not documenting in the electronic medical record. If you do not see the information that you expected, contact Release of Information in the Health Information Management department at [phone] for further assistance in locating additional records.[facility] Allergies Active Allergy Reactions Severity Noted [...] emulsion needed. fluticasone (FLONASE) 50 Apply 1 [place] to each Active mcg/actuation nasal spray nostril [...] (coronary artery disease) 06/03/2009 Overview: Hx of [place] 4 yrs ago Depression 06/03/2009 Arthritis 06/03/2009 [...] INFLUENZA VACCINE 09/20/2016 Implants Implanted Type Area Field Return Repairer Device Expiration Model / Identifier Date Serial / Lot Lens-04/22/2004 Other / Implanted: 04/22/2004 (Quantity not / on file) [id number]/7/2004 Stent / Implanted: 01/27/2004 by Bobby / MD Karina (Quantity not on file) [id number] Results Not on filefrom Last 3 Months
[2017-01-23] MEDS ORDERED: NALOXONE 0.4 MG/ML 1 ML (NARCAN) VIAL ONE (08:23)
[2017-01-23] MEDS ORDERED: NALOXONE 0.4 MG/ML 1 ML (NARCAN) VIAL IV ONE ×4 (08:30→09:00)
[2017-01-23 08:38] LABS: BASOPHILS # (AUTO) 0.1 10^3/uL (0.0-0.1); BASOPHILS % (AUTO) 1 % (0-10); EOSINOPHILS # (AUTO) 0.4 10^3/uL (0.0-0.3); EOSINOPHILS % (AUTO) 5 % (0-10); LYMPHOCYTES # (AUTO) 2.5 X 10^3 (1.0-4.0); LYMPHOCYTES % (AUTO) 31 % (12-44); MEAN CORPUSCULAR HEMOGLOBIN 28 PG (25-34); MEAN CORPUSCULAR HGB CONC 33 G/DL (32-36); MEAN CORPUSCULAR VOLUME 84 FL (80-99); MEAN PLATELET VOLUME 10.6 FL (7.4-10.4); MONOCYTES # (AUTO) 0.8 X 10^3 (0.0-1.0); MONOCYTES % (AUTO) 10 % (0-12); NEUTROPHILS # (AUTO) 4.4 X 10^3 (1.8-7.8); NEUTROPHILS % (AUTO) 53 % (42-75); PLATELET COUNT 328 10^3/uL (130-400); RED BLOOD COUNT 4.95 10^6/uL (4.35-5.85); RED CELL DISTRIBUTION WIDTH 16.5 % (10.0-14.5); WHITE BLOOD COUNT 8.2 10^3/uL (4.3-11.0)
--- NOTE | 2017-01-23 08:47 | ED Neurological Problem ---
General Chief Complaint: Altered Mental Status Stated Complaint: UNRESPONSIVE/AMS Nursing Triage Note: PT ARRIVED PER EMS, PT IS LETHARGIC, SEDATED VSS, PT PUPILS PINPOINT, PT RESPONDS TO LOUD VERBAL STIMULI, PT HAS RESP RATE OF 30. PT WAS SEEN IN ED LAST PM FOR OVERDOSE OF PO PAIN MEDS. PT HAS COLOSTOMY BAG IN PLACE Nursing Sepsis Screen: No Definite Risk Source: patient, RN/ ([facility]), EMS, alf records, old records Exam Limitations: no limitations History of Present Illness Time seen by provider: 08:15 Initial Comments Patient presents to ER by EMS with a complaint of decreased level consciousness. EMS says when they report the patient tried opening her eyes looking around but did not get much response other than a grunt to questioning. Patient was just seen in the ER last night for altered mental status and given several doses of Narcan to which she woke up and then was worked up and allowed to go back to the halfway facility. EMS reports that nursing staff was concerned that every time the son comes around patient ends up doing altered mental status and sent to the ER and given Narcan. They are worried that maybe the son is providing narcotics from home. The patient is on lorazepam, hydrocodone and Lyrica. Patient is also being treated currently for a UTI. Spoke with Dr. Brewer, primary care physician by phone and he states that the concern that the son was giving medications to the patient is real. The son has been caught as well as confessed to bringing benzos and opiates from home and giving to her. He is not sure as to the motivation yet. He says he would like a quantitative opiates screen he also relates that he's been working with the staff and that the son did visit yesterday and last night. He sees correlation with every time the son visits that the patient ends up and Narcotized and goes to the ER for Narcan. Allergies and Home Medications Allergies Coded Allergies: No Known Drug Allergies (Unverified , 06/10/15) Home Medications Bisacodyl 5 Mg Tablet.dr, 5 MG PO QID PRN for CONSTIPATION-1ST LINE for 30 Days , #30 Ref 0 Prescribed by: ASHLEY WATTS on 01/21/17 0017 Budesonide/Formoterol Fumarate 10.2 Gm Hfa.aer.ad, 2 PUFF INH BID, (Reported) LAST FILLED 1-4-17 Cefdinir 300 Mg Capsule, 300 MG PO BID, #14 Prescribed by: RADHA RIVAS on 01/17/17 1500 Clopidogrel Bisulfate 75 Mg Tablet, 75 MG PO DAILY, (Reported) LAST FILLED 10-01-16 #30 Dicyclomine HCl 10 Mg Capsule, 10 MG PO TID PRN for DISCOMFORT, (Reported) Duloxetine HCl 60 Mg Capsule.dr, 60 MG PO DAILY, (Reported) Ezetimibe 10 Mg Tablet, 10 MG PO DAILY, (Reported) LAST FILLED #30 10-01-16 Gabapentin 600 Mg Tablet, 600 MG PO BID, (Reported) Hydrocodone/Acetaminophen 1 Each Tablet, 1 TAB PO Q4H PRN for PAIN-MODERATE, #42 Prescribed by: MARY GORE on 11/11/16 1531 Levothyroxine Sodium 112 Mcg Tablet, 112 MCG PO DAILY, (Reported) Lorazepam 1 Mg Tablet, 1 MG PO BID for 30 Days Prescribed by: MARY GORE on 11/11/16 0956 Metoprolol Succinate 50 Mg Tab.er.24h, 50 MG PO DAILY, (Reported) Nitroglycerin 0.4 Mg Tab.subl, 0.4 MG SL UD PRN for CHEST PAIN, (Reported) Ondansetron 4 Mg Tab.rapdis, 4 MG SL Q4H PRN for NAUSEA/VOMITING-1ST LINE, #10 Prescribed by: RADHA RIVAS on 01/17/17 1500 Pantoprazole Sodium 40 Mg Tablet.dr, 40 MG PO DAILY, (Reported) Phenazopyridine HCl 200 Mg Tablet, 1 TAB PO TID PRN for PAIN-MILD TO MODERATE, # 10 Prescribed by: RADHA RIVAS on 01/17/17 1500 Prednisone 10 Mg Tab, 50 MG PO DAILY, #21 Take 6 tabs (60mg) daily, decrease by 1 tab (10mg) daily. Prescribed by: MARY GORE on 11/11/16 0956 Pregabalin 75 Mg Capsule, 75 MG PO BID, (Reported) Ropinirole HCl 4 Mg Tablet, 8 MG PO HS, (Reported) TAKES 2 (4MG) TABLETS Sucralfate 1 Gm Tablet, 1 GM PO ACHS, (Reported) Sulfamethoxazole/Trimethoprim 1 Each Tablet, 1 EACH PO BID, #14 Prescribed by: RADHA RIVAS on 01/17/17 1500 Constitutional: see HPI (patient is narcotized and not getting any review of systems at this time.) Past Fllsyxl-Gudttr-Nwiqun Hx Patient Social History Alcohol Use: Denies Use Recreational Drug Use: No Smoking Status: Former Smoker Type Used: Cigarettes Former Smoker, Quit: Mar 26, 1996 2nd Hand Smoke Exposure: Yes Recent Foreign Travel: No Contact w/Someone Who Travel: No Recent Infectious Disease Expo: No Recent Hopitalizations: No Physical Abuse: No Sexual Abuse: No Immunizations Up To Date Tetanus Booster (TDap): Unknown PED Vaccines UTD: No Date of Pneumonia Vaccine: Apr 22, 2009 Date of Influenza Vaccine: Mar 30, 2016 Seasonal Allergies Seasonal Allergies: Yes Surgeries History of Surgeries: Yes Surgeries: Abdominal, Appendectomy, Bladder Surgery, Bowel Surgery, Cardiac, Coronary Stent, Hysterectomy, Oophorectomy, Orthopedic, Tonsillectomy Respiratory History of Respiratory Disorde: Yes Respiratory Disorders: Pulmonary Embolism, Sleep Apnea, COPD Currently Using CPAP: No Currently Using BIPAP: No Cardiovascular History of Cardiac Disorders: Yes (STENTS X2) Cardiac Disorders: Chronic Edema/Swelling, Coronary Artery Disease, Deep Vein Thrombosis, Heart Attack, High Cholesterol, Hypertension Neurological History of Neurological Disord: Yes (COGNITIVE DEFICIT) Neurological Disorders: Vertigo 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, 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 Genitourinary History of Genitourinary Disor: Yes (INCONTINENCE) Genitourinary Disorders: Kidney Infection, Bladder Infection, UTI-Chronic Gastrointestinal History of Gastrointestinal Di: Yes Gastrointestinal Disorders: Abdominal Hernia, Gastroesophageal Reflux, Diverticulosis, Esophagitis Musculoskeletal History of Musculoskeletal Dis: Yes Musculoskeletal Disorders: Osteoporosis, Arthritis, Chronic Back Pain, Fractures Endocrine History of Endocrine Disorders: Yes (HYPOTHYROID) Endocrine Disorders: Hypothyroidsim HEENT History of HEENT Disorders: Yes (FULL DENTURES) HEENT Disorders: Cataract, Dysphagia Loss of Vision: Denies Hearing Impairment: Denies Cancer History of Cancer: No Psychosocial History of Psychiatric Problem: Yes Behavioral Health Disorders: Anxiety, Depression Suicide Risk Score: 0 Integumentary History of Skin or Integumenta: No Blood Transfusions History of Blood Disorders: Yes (anemia post op epideral site,bld transfusion) Adverse Reaction to a Blood Tr: No Family Medical History Family Medial History: Family history: Hypertension G8 BROTHER Myocardial infarction 19 MOTHER G8 BROTHER Physical Exam Vital Signs Vital Sign - Last 12Hours 01/23/17 08:12 Temp 97.6 Pulse 68 Resp 30 B/P (MAP) 155/92 (113) Pulse Ox 96 Capillary Refill : Less Than 3 Seconds General Appearance: WD/WN, other (somnolent) HEENT: normal ENT inspection, TMs normal, other (pinpoint nonreactive pupils bilaterally. Tracking to voice) Neck: non-tender, supple, normal inspection Respiratory: chest non-tender, lungs clear, normal breath sounds Cardiovascular: normal peripheral pulses, regular rate, rhythm, no edema Peripheral Pulses: 2+ Dorsalis Pedis (R), 2+ Left Dors-Pedis (L), 2+ Radial Pulses (R), 2+ Radial Pulses (L) Gastrointestinal: non tender, soft, abnormal bowel sounds (hypoactive) Extremities: normal inspection, normal capillary refill Neurologic/Psychiatric: other (somnolent, opens eyes to voice and tracks but does not follow commands. Damir coma scale: 10) Crainal Nerves: normal hearing Reflexes: 2+ Bicep (R), 2+ Bicep (L), 1+ Knee (R), 1+ Knee (L) Skin: normal color, warm/dry Stroke Stroke Thrombolytic Exclusion Age 18 or Over: Yes History of CVA: No Severe Hypertension: No GI or Bleed: No Subarachnoid Hemorrhage: No Intracranial Neoplasm/Aneurysm: No Puncture of Non-Compressible V: No Recent CPR: No Diabetic Hemorrhagic Retinopat: No Organ Biopsy: No Recent Obstetric Delivery: No Significant Hepatic Dysfunctio: No NIH Stoke Scale >22: Yes Improving Symptoms: Yes Progress/Results/Core Measures Results/Orders Lab Results Laboratory Tests Test 01/23/17 08:25 01/23/17 08:44 01/23/17 09:35 Range/Units White Blood Count 8.2 4.3-11.0 10^3/uL Red Blood Count 4.95 4.35-5.85 10^6/uL Hemoglobin 13.8 11.5-16.0 G/DL Hematocrit 41 35-52 % Mean Corpuscular Volume 84 80-99 FL Mean Corpuscular Hemoglobin 28 25-34 PG Mean Corpuscular Hemoglobin Concent 33 32-36 G/DL Red Cell Distribution Width 16.5 H 10.0-14.5 % Platelet Count 328 130-400 10^3/uL Mean Platelet Volume 10.6 H 7.4-10.4 FL Neutrophils (%) (Auto) 53 42-75 % Lymphocytes (%) (Auto) 31 12-44 % Monocytes (%) (Auto) 10 0-12 % Eosinophils (%) (Auto) 5 0-10 % Basophils (%) (Auto) 1 0-10 % Neutrophils # (Auto) 4.4 1.8-7.8 X 10^3 Lymphocytes # (Auto) 2.5 1.0-4.0 X 10^3 Monocytes # (Auto) 0.8 0.0-1.0 X 10^3 Eosinophils # (Auto) 0.4 H 0.0-0.3 10^3/uL Basophils # (Auto) 0.1 0.0-0.1 10^3/uL Sodium Level 140 135-145 MMOL/L Potassium Level 4.3 3.6-5.0 MMOL/L Chloride Level 109 H 98-107 MMOL/L Carbon Dioxide Level 24 21-32 MMOL/L Anion Gap 7 5-14 MMOL/L Blood Urea Nitrogen 14 7-18 MG/DL Creatinine 0.82 0.60-1.30 MG/DL Estimat Glomerular Filtration Rate > 60 BUN/Creatinine Ratio 17 Glucose Level 95 70-105 MG/DL Calcium Level 9.9 8.5-10.1 MG/DL Total Bilirubin 0.5 0.1-1.0 MG/DL Aspartate Amino Transf (AST/SGOT) 16 5-34 U/L Alanine Aminotransferase (ALT/SGPT) 13 0-55 U/L Alkaline Phosphatase 97 40-136 U/L Total Protein 6.7 6.4-8.2 GM/DL Albumin 3.8 3.2-4.5 GM/DL Urine Color YELLOW Urine Clarity CLEAR Urine pH 7 5-9 Urine Specific [place] 1.010 L 1.016-1.022 Urine Protein NEGATIVE NEGATIVE Urine Glucose (UA) NEGATIVE NEGATIVE Urine Ketones NEGATIVE NEGATIVE Urine Nitrite NEGATIVE NEGATIVE Urine Bilirubin NEGATIVE NEGATIVE Urine Urobilinogen NORMAL NORMAL MG/DL Urine Leukocyte Esterase NEGATIVE NEGATIVE Urine RBC (Auto) NEGATIVE NEGATIVE Urine RBC NONE /HPF Urine WBC NONE /HPF Urine Squamous Epithelial Cells NONE /HPF Urine Crystals NONE /LPF Urine Bacteria NEGATIVE /HPF Urine Casts NONE /LPF Urine Mucus NEGATIVE /LPF Urine Culture Indicated NO My Orders Orders - STEFANIE,ASHLEY Roro Cbc With Automated Diff (01/23/17 08:16) Comprehensive Metabolic Panel (01/23/17 08:16) Ua Culture If Indicated (01/23/17 08:16) Saline Lock/Iv-Start (01/23/17 08:16) Ns Iv 1000 Ml (Sodium Chloride 0.9%) (01/23/17 08:16) Naloxone Injection (Narcan Injection) (01/23/17 08:23) Naloxone Injection (Narcan Injection) (01/23/17 08:30) Naloxone Injection (Narcan Injection) (01/23/17 08:45) Naloxone Injection (Narcan Injection) (01/23/17 08:45) Naloxone Injection (Narcan Injection) (01/23/17 09:00) Drug Screen Urine Cl(Send Out) (01/23/17 08:52) Medications Given in ED Current Medications Medications Dose Ordered Sig/Perez Route Start Time Stop Time Status Last Admin Dose Admin Naloxone HCl 0.4 mg ONCE ONCE IV 01/23/17 08:30 01/23/17 08:31 DC 01/23/17 08:31 0.4 MG Naloxone HCl 0.4 mg ONCE ONCE IV 01/23/17 08:45 01/23/17 08:46 DC 01/23/17 08:37 0.4 MG Naloxone HCl 0.4 mg ONCE ONCE IV 01/23/17 09:00 01/23/17 09:01 DC 01/23/17 08:54 0.4 MG Sodium Chloride 1,000 ml @ 0 mls/hr Q0M ONCE IV 01/23/17 08:16 01/23/17 08:21 DC 01/23/17 08:34 1,000 MLS/HR Vital Signs/I&O Vital Sign - Last 12Hours 01/23/17 08:12 Temp 97.6 Pulse 68 Resp 30 B/P (MAP) 155/92 (113) Pulse Ox 96 Blood Pressure Mean: 113 Progress Note #1: Time: 08:51 Progress Note Strong suspicion of opiate overdose. We'll give some Narcan and that she cannot get her to respond to that her pupils to respond to that and we would add a scan of the head. We'll obtain urine and blood. We will also obtain a quantitative opiate urine assay. Progress Note #2: Time: 09:45 Progress Note After the third dose of Narcan the patient's pupils became 3 mm bilateral, reactive to light and accommodation. She could talk and gave the history that she's having no shortness of breath, chest pain, normal pain, nausea, weakness. After a short while her exam became more somnolent and she again was only giving verbal grunts still opening eyes and looking around to verbal stimuli. She will probably benefit from a stay in the hospital to be observed as the opiates wear off. Her vital signs are all good and she is having no problems breathing so we probably do not need to initiate a Narcan drip at this time. She 's been in the ER 3 times the last 3 days for the same thing and had an extensive workup to include CT of her head. Her urine now looks okay. Departure Communication (Admissions) Time/Spoke to Admitting Phy: 09:[address] Molina. She is okay place and the patient in ICU for observation. Maintenance IV fluids 1.5. She will decide if the patient needs any further treatment for UTI. Impression Impression: Primary Impression: Opiate overdose Qualified Codes: T40.604A - Poisoning by unspecified narcotics, undetermined, initial encounter Additional Impression: Opiate misuse Disposition: 01 HOME, SELF-CARE Condition: Improved Admissions Decision to Admit Reason: Admit from ER (General) Decision to Admit/Date: Jan 23, 2017 Time/Decision to Admit Time: 09:48 Departure-Patient Inst. Referrals: TORIBIO BREWER DO (PCP) Primary Care Physician Copy Copies To 1: TORIBIO BREWER TITUS J Jan 23, 2017 08:47
[2017-01-23 08:51] LABS: BILIRUBIN,URINE NEGATIVE (NEGATIVE); KETONES,URINE NEGATIVE (NEGATIVE); LEUKOCYTE ESTERASE ,URINE NEGATIVE (NEGATIVE); NITRITE,URINE NEGATIVE (NEGATIVE); PH,URINE 7 (5-9); PROTEIN,URINE NEGATIVE (NEGATIVE); UROBILINOGEN,URINE NORMAL (NORMAL)
[2017-01-23 08:54] LABS: ALANINE AMINOTRANSFERASE 13 U/L (0-55); ALBUMIN 3.8 GM/DL (3.2-4.5); ANION GAP 7 MMOL/L (5-14); ASPARTATE AMINO TRANSFERASE 16 U/L (5-34); BILIRUBIN,TOTAL 0.5 MG/DL (0.1-1.0); BLOOD UREA NITROGEN 14 MG/DL (7-18); BUN/CREATININE RATIO 17; CALCIUM 9.9 MG/DL (8.5-10.1); CARBON DIOXIDE 24 MMOL/L (21-32); CHLORIDE 109 MMOL/L (98-107); CREATININE SERUM 0.82 MG/DL (0.60-1.30); GFR ESTIMATED > 60; GLUCOSE 95 MG/DL (70-105); POTASSIUM 4.3 MMOL/L (3.6-5.0); SODIUM 140 MMOL/L (135-145); TOTAL PROTEIN 6.7 GM/DL (6.4-8.2)
--- OUTSIDE RECORDS SUMMARY | 2017-01-23 09:54 | XMS REPORT | Clinical Summary ---
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 If you do not see the information that you expected, contact Release of Information in the Health Information Management department at [phone] for further assistance in locating additional records.[facility] [...] emulsion needed. fluticasone (FLONASE) 50 Apply 1 [place] to each Active mcg/actuation nasal spray nostril [...] (coronary artery disease) 06/03/2009 Overview: Hx of HI 4 yrs ago Depression 06/03/2009 Arthritis 06/03/2009 [...] INFLUENZA VACCINE 09/20/2016 Implants Implanted Type Area Wheelchair Driver Device Expiration Model / Identifier Date Serial / Lot Lens-04/22/2004 Other / Implanted: 04/22/2004 (Quantity not / on file) [id number]/7/[id number] Stent / Implanted: 01/27/2004 by Bobby / MD Karina (Quantity not on file) [id number] Results Not on filefrom Last 3 Months
[2017-01-23] MEDS ORDERED: LORA1TAB PO (11:15)
[2017-01-23] MEDS ORDERED: PREG50CA2 PO (11:15)
[2017-01-23] MEDS ORDERED: HYDR-3820 PO (11:15)
[2017-01-23] MEDS ORDERED: MIRT15TA PO (11:15)
[2017-01-23] MEDS ORDERED: TEMA15CA PO (11:15)
[2017-01-23] MEDS ORDERED: FLUT1AER IH (11:15)
[2017-01-23] MEDS ORDERED: MENT118G TP (11:15)
[2017-01-23] MEDS ORDERED: PHEN-640 PO (11:15)
[2017-01-23] MEDS ORDERED: NYST1POW22 TOP (11:16)
[2017-01-23] MEDS ORDERED: SULF1TAB35 PO (11:16)
[2017-01-23] MEDS ORDERED: BISA5TAB8 PO (11:16)
[2017-01-23] MEDS ORDERED: CEFD300C3 PO (11:16)
[2017-01-23] MEDS ORDERED: ONDN4T PO (11:16)
[2017-01-23] MEDS ORDERED: ONDANSETRON 4 MG/2 ML (SDV) Z0FRAN IV PRN (11:30)
[2017-01-23] MEDS: NS IV 1000 ML 1,000 ML IV SCH ×3 (11:30→23:52)
[2017-01-23] MEDS ORDERED: CATHETER FLUSH 10 ML SYR IV PRN (11:30)
[2017-01-23] MEDS ORDERED: INFLUENZA TRIvalent 2017-2018 0.5 ML/45 MCG SYR IM ONE (13:45)
--- NOTE | 2017-01-23 14:29 | History & Physical-Hospitalist ---
HPI History of Present Illness: HPI/Chief Complaint Pt is known to me from previous admissions. She presented to the ER for altered mentation from her long-term. Per report from her PCP her son was caught giving patient extra pain medications prior to this. She is unable to provide me any history due to her clinical condition and sedation. There is no family at bedside for me to interview. She received 3 doses of Narcan in the ER which provided short term improvement but she remained somnolent still. Exam Limitations: clinical condition Date Seen 01/23/17 Time Seen by Provider: 13:30 Attending Physician Mary Cox MD PCP Eliud Brewer DO Referring Physician Date of Admission Jan 23, 2017 at 9:45 am Home Medications & Allergies Home Medications Reviewed patient Home Medication Reconciliation Form Allergies Allergies Coded Allergies No Known Drug Allergies (Unverified06/10/15) Past Flkbpba-Khzhnl-Ihanbz Hx Patient Social History Alcohol Use: Denies Use Recreational Drug Use: No Smoking Status: Former Smoker Former Smoker, Quit: Mar 26, 1996 Type Used: Cigarettes 2nd Hand Smoke Exposure: Yes Physical Abuse Screen: No Sexual Abuse: No Recent Foreign Travel: No Contact w/other who traveled: No Recent Hopitalizations: No Recent Infectious Disease Expo: No Immunizations Up To Date Tetanus Booster (TDap): Unknown Pediatric: No Date of Pneumonia Vaccine: Apr 22, 2009 Date of Influenza Vaccine: Mar 30, 2016 Seasonal Allergies Seasonal Allergies: Yes Surgeries Yes Abdominal, Appendectomy, Bladder Surgery, Bowel Surgery, Cardiac, Coronary Stent , Hysterectomy, Oophorectomy, Orthopedic, Tonsillectomy Respiratory Yes Asthma, COPD, Pneumonia Currently Using CPAP: No Currently Using BIPAP: No Cardiovascular Yes (STENTS X2) Chronic Edema/Swelling, Coronary Artery Disease, Deep Vein Thrombosis, Heart Attack, High Cholesterol, Hypertension Neurological Yes (COGNITIVE DEFICIT) Vertigo 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, 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 Genitourinary Yes (INCONTINENCE) Kidney Infection, Bladder Infection, UTI-Chronic Gastrointestinal Yes Abdominal Hernia, Gastroesophageal Reflux, Diverticulosis, Esophagitis Musculoskeletal Yes Osteoporosis, Arthritis, Chronic Back Pain, Fractures Endocrine History of Endocrine Disorders: Yes (HYPOTHYROID) Endocrine Disorders: Hypothyroidsim HEENT History of HEENT Disorders: Yes (FULL DENTURES) HEENT Disorders: Cataract, Dysphagia Loss of Vision: Denies Hearing Impairment: Denies Cancer No Psychosocial History of Psychiatric Problem: Yes Behavioral Health Disorders: Anxiety, Depression Integumentary History of Skin or Integumenta: No Blood Transfusions History of Blood Disorders: Yes (anemia post op epideral site,bld transfusion) Adverse Reaction to a Blood Tr: No Family Medical History Family Hx: Family history: Hypertension G8 BROTHER Myocardial infarction 19 MOTHER G8 BROTHER Review of Systems ROS-Unable to Obtain: Due to sedation Constitutional: see HPI Physical Exam Physical Exam Vital Signs Vital Sign - Last 12Hours 01/23/17 01/23/17 08:12 10:45 Temp 97.6 Pulse 68 Resp 30 B/P (MAP) 155/92 (113) Pulse Ox 96 O2 Delivery Room Air Capillary Refill : Less Than 3 Seconds General Appearance: No Apparent Distress, WD/WN HEENT: PERRL/EOMI, Moist Mucous Membranes Neck: Non Tender, Supple Respiratory: Lungs Clear, No Respiratory Distress Cardiovascular: Regular Rate, Rhythm, No Murmur Gastrointestinal: Normal Bowel Sounds, Non Tender, Soft Extremity: Normal Capillary Refill, No Calf Tenderness Neurologic/Psychiatric: Alert, Oriented x3, Normal Mood/Affect Skin: Normal Color, Warm/Dry Results Results/Procedures Lab Laboratory Tests 01/23/17 08:25 Assessment/Plan Admission Diagnosis Narcotic Overdose Diagnosis/Problems Diagnosis/Problems (1) Opiate overdose Status: Acute Assessment & Plan: Per report son giving to patient inappropriately Received Narvan x3 Protecting airway but in ICU for close monitoring Will provide Narcan prn Hold narcotics Qualifiers: Qualified Codes: T40.604A - Poisoning by unspecified narcotics, undetermined , initial encounter (2) Hypothyroidism Status: Chronic Assessment & Plan: Hold home meds while sedated Qualifiers: Qualified Codes: E03.9 - Hypothyroidism, unspecified (3) Chronic back pain Assessment & Plan: on chronic narcotics Will involved social work given concerns for misuse of medicines and involvement of son (4) Colostomy care Status: Chronic Assessment & Plan: Continue routine care (5) Essential (primary) hypertension Status: Chronic Assessment & Plan: Elevated currently Trend (6) Prophylactic measure Assessment & Plan: Lovenox NPO until more awake NS at 150ml/hr Clinical Quality Measures DVT/VTE Risk/Contraindication: Risk Factor Score Per Nursin RFS Level Per Nursing on Admit: 4+=Very High MARY COX MD Jan 23, 2017 2:29 pm
[2017-01-23] MEDS ORDERED: ACETAMINOPHEN 325 MG TABLET/CAPLET (TYLENOL) PO PRN (22:30)
[2017-01-24] VITALS (14 sets, daily range): BP systolic 121–178; BP diastolic 71–99
[2017-01-24 05:39] LABS: BASOPHILS # (AUTO) 0.1 10^3/uL (0.0-0.1); BASOPHILS % (AUTO) 1 % (0-10); EOSINOPHILS # (AUTO) 0.3 10^3/uL (0.0-0.3); EOSINOPHILS % (AUTO) 5 % (0-10); LYMPHOCYTES # (AUTO) 2.8 X 10^3 (1.0-4.0); LYMPHOCYTES % (AUTO) 40 % (12-44); MEAN CORPUSCULAR HEMOGLOBIN 28 PG (25-34); MEAN CORPUSCULAR HGB CONC 33 G/DL (32-36); MEAN CORPUSCULAR VOLUME 86 FL (80-99); MEAN PLATELET VOLUME 10.5 FL (7.4-10.4); MONOCYTES # (AUTO) 0.6 X 10^3 (0.0-1.0); MONOCYTES % (AUTO) 9 % (0-12); NEUTROPHILS # (AUTO) 3.2 X 10^3 (1.8-7.8); NEUTROPHILS % (AUTO) 46 % (42-75); PLATELET COUNT 297 10^3/uL (130-400); RED BLOOD COUNT 4.69 10^6/uL (4.35-5.85); RED CELL DISTRIBUTION WIDTH 16.8 % (10.0-14.5)
[2017-01-24] MEDS: NS IV 1000 ML 1,000 ML IV SCH (05:56)
[2017-01-24] MEDS ORDERED: MAGNESIUM 1 GM/100 ML IVPB 100 ML IV SCH (06:00)
[2017-01-24] MEDS ORDERED: KCL 20 MEQ TAB (K-DUR) PO SCH (06:00)
[2017-01-24] MEDS ORDERED: POTASSIUM CL 10MEQ/50ML IVPB 50 ML IV SCH (06:00)
[2017-01-24 06:02] LABS: ANION GAP 8 MMOL/L (5-14); BLOOD UREA NITROGEN 8 MG/DL (7-18); BUN/CREATININE RATIO 11; CALCIUM 9.4 MG/DL (8.5-10.1); CARBON DIOXIDE 19 MMOL/L (21-32); CHLORIDE 112 MMOL/L (98-107); CREATININE SERUM 0.73 MG/DL (0.60-1.30); GFR ESTIMATED > 60; GLUCOSE 88 MG/DL (70-105); PHOSPHORUS 3.1 MG/DL (2.3-4.7); POTASSIUM 4.2 MMOL/L (3.6-5.0); SODIUM 139 MMOL/L (135-145)
--- NOTE | 2017-01-24 06:30 | Pulmonary Consultation ---
History of Present Illness History of Present Illness Date of Consultation 01/24/17 06:24 Time Seen by Provider: 06:25 Date of Admission History of Present Illness 76yo presented to ED secondary to altered MS from assisted. Pt's son was caught giving her extra pain medications prior to her becoming unresponsive. Pt was given 3 doses of narcan in ED which did improve MS. Pt does have recent episodes of going unresponsive and responded to Narcan. Pt is now awake in ICU and doing better. She continues to complain of hip/back pain and weakness. I am consulted for pulmonary management. Allergies and Home Medications Allergies Coded Allergies: No Known Drug Allergies (Unverified , 06/10/15) Home Medications Bisacodyl 5 Mg Tablet.dr, 5 MG PO QID PRN for CONSTIPATION-1ST LINE, (Reported) Cefdinir 300 Mg Capsule, 300 MG PO BID, (Reported) START DATE 01-18-17 Clopidogrel Bisulfate 75 Mg Tablet, 75 MG PO DAILY, (Reported) Ezetimibe 10 Mg Tablet, 10 MG PO DAILY, (Reported) Fluticasone/Vilanterol 1 Each Blst.w.dev, 1 PUFF IH DAILY, (Reported) Hydrocodone/Acetaminophen 1 Each Tablet, 1 TAB PO Q4H PRN for PAIN-MODERATE, ( Reported) Levothyroxine Sodium 112 Mcg Tablet, 112 MCG PO DAILY, (Reported) Lorazepam 1 Mg Tablet, 1 MG PO BID, (Reported) Menthol 118 Ml Gel..ml., TP BID, (Reported) APPLY TO RIGHT LEG FROM KNEE TO LOWER LEG Metoprolol Succinate 50 Mg Tab.er.24h, 50 MG PO DAILY, (Reported) NOTIFY MD IF SBP LESS THAN 90 OR GREATHER THAN 200 OR PULSE LESS THAN 50 Mirtazapine 15 Mg Tablet, 15 MG PO HS, (Reported) Nitroglycerin 0.4 Mg Tab.subl, 0.4 MG SL UD PRN for CHEST PAIN, (Reported) Nystatin 1 Each Powder.ea., TOP Q12H, (Reported) CLEAN UNDER LEFT BREAST PAT DRY AND CLEAN BILATERAL GROIN AND PAT DRY THEN APPLY NYSTATIN POWDER UNTIL HEALED Ondansetron HCl 4 Mg Tab, 4 MG PO Q4H PRN for NAUSEA/VOMITING-1ST LINE, ( Reported) Pantoprazole Sodium 40 Mg Tablet.dr, 40 MG PO DAILY, (Reported) Phenazopyridine HCl 200 Mg Tablet, 200 MG PO Q8H PRN for URINARY PAIN, (Reported ) Pregabalin 50 Mg Capsule, 150 MG PO Q12H, (Reported) Ropinirole HCl 4 Mg Tablet, 4 MG PO HS, (Reported) Sulfamethoxazole/Trimethoprim 1 Each Tablet, 1 TAB PO BID, (Reported) START DATE 01-18-17 Temazepam 15 Mg Capsule, 15 MG PO HS, (Reported) Past Zkvlhjh-Mkyjcn-Quhzgi Hx Patient Social History Alcohol Use: Denies Use Recreational Drug Use: No Smoking Status: Former Smoker Type Used: Cigarettes Former Smoker, Quit: Mar 26, 1996 2nd Hand Smoke Exposure: Yes Recent Foreign Travel: No Contact w/Someone Who Travel: No Recent Infectious Disease Expo: No Recent Hopitalizations: No Physical Abuse: No Sexual Abuse: No Immunizations Up To Date Tetanus Booster (TDap): Unknown PED Vaccines UTD: No Date of Pneumonia Vaccine: Apr 22, 2009 Date of Influenza Vaccine: Mar 30, 2016 Seasonal Allergies Seasonal Allergies: Yes Surgeries History of Surgeries: Yes Surgeries: Abdominal, Appendectomy, Bladder Surgery, Bowel Surgery, Cardiac, Coronary Stent, Hysterectomy, Oophorectomy, Orthopedic, Tonsillectomy Respiratory History of Respiratory Disorde: Yes Respiratory Disorders: Pulmonary Embolism, Sleep Apnea, COPD Currently Using CPAP: No Currently Using BIPAP: No Cardiovascular History of Cardiac Disorders: Yes (STENTS X2) Cardiac Disorders: Chronic Edema/Swelling, Coronary Artery Disease, Deep Vein Thrombosis, Heart Attack, High Cholesterol, Hypertension Neurological History of Neurological Disord: Yes (COGNITIVE DEFICIT) Neurological Disorders: Vertigo 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, 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 Genitourinary History of Genitourinary Disor: Yes (INCONTINENCE) Genitourinary Disorders: Kidney Infection, Bladder Infection, UTI-Chronic Gastrointestinal History of Gastrointestinal Di: Yes Gastrointestinal Disorders: Abdominal Hernia, Gastroesophageal Reflux, Diverticulosis, Esophagitis Musculoskeletal History of Musculoskeletal Dis: Yes Musculoskeletal Disorders: Osteoporosis, Arthritis, Chronic Back Pain, Fractures Endocrine History of Endocrine Disorders: Yes (HYPOTHYROID) Endocrine Disorders: Hypothyroidsim HEENT History of HEENT Disorders: Yes (FULL DENTURES) HEENT Disorders: Cataract, Dysphagia Loss of Vision: Denies Hearing Impairment: Denies Cancer History of Cancer: No Psychosocial History of Psychiatric Problem: Yes Behavioral Health Disorders: Anxiety, Depression Suicide Risk Score: 0 Integumentary History of Skin or Integumenta: No Blood Transfusions History of Blood Disorders: Yes (anemia post op epideral site,bld transfusion) Adverse Reaction to a Blood Tr: No Family Medical History Family Medial History: Family history: Hypertension G8 BROTHER Myocardial infarction 19 MOTHER G8 BROTHER Review of Systems Time Seen by Provider: 06:34 Constitutional: Chills, Sweats, Weakness, Malaise, No: Fever Eyes: No: Pain, Vision change, Conjunctivae inflammation, Eyelid inflammation, Other, Redness ENT: No: Ear pain, Ear discharge, Nose pain, Nose discharge, Nose congestion, Mouth pain, Mouth swelling, Throat pain, Throat swelling, Other Respiratory: Cough, Dry, Shortness of breath, SOB with excertion, No: Wheezing , Hemoptysis, Sputum Cardiovascular: No: Chest Pain, Palpitations, Orthopnea, Paroxysmal Noc. Dyspnea, Edema, Lt Headedness, Other Gastrointestinal: No: Nausea, Vomiting, Abdominal Pain, Diarrhea, Constipation , Melena, Hematochezia, Other Genitourinary: No Dysuria, No Frequency, No Incontinence, No Hematuria, No Retention, No Other Musculoskeletal: shoulder pain, back pain, leg pain Skin: No: Rash, Lesions, Jaundice, Bruising, Other Neurological: Weakness, Incoordination, Confusion Exam Exam Vital Signs Date Time Temp Pulse Resp B/P (MAP) Pulse Ox O2 Delivery O2 Flow Rate FiO2 01/24/17 06:00 86 19 163/84 (110) 97 Room Air 01/24/17 05:00 74 26 175/85 (115) 96 Room Air 01/24/17 04:00 97 Nasal Cannula 2.00 01/24/17 04:00 98.0 01/24/17 04:00 77 19 171/85 (113) 93 Room Air 01/24/17 03:00 80 10 152/73 (99) 96 Room Air 01/24/17 02:00 79 26 134/73 (93) 96 Room Air 01/24/17 01:00 79 01/24/17 01:00 79 19 129/83 (98) 98 Nasal Cannula 2.00 01/24/17 00:00 97 Nasal Cannula 2.00 01/24/17 00:00 96.8 01/24/17 00:00 90 13 121/71 (88) 96 Nasal Cannula 2.00 01/23/17 23:00 96 12 143/84 (103) 98 Nasal Cannula 2.00 01/23/17 22:00 103 19 149/80 (103) 93 Nasal Cannula 2.00 01/23/17 21:00 104 19 143/85 (104) 94 Nasal Cannula 2.00 01/23/17 20:00 103 18 148/74 (98) 95 Room Air 01/23/17 20:00 Room Air 01/23/17 19:44 97.7 97 22 144/93 (110) 97 Room Air 01/23/17 19:00 99 22 96 Room Air 01/23/17 19:00 99 01/23/17 18:00 93 23 140/73 (95) 97 Room Air 01/23/17 17:00 79 21 167/87 (113) 96 Room Air 01/23/17 16:00 79 15 176/102 (126) 97 Room Air 01/23/17 15:31 Room Air 01/23/17 15:00 75 14 194/99 (130) 93 Room Air 01/23/17 14:00 74 9 178/87 (117) 97 Room Air 01/23/17 13:00 67 27 173/88 (116) 95 Room Air 01/23/17 13:00 68 01/23/17 12:45 97.8 01/23/17 12:00 72 17 169/91 (117) 94 Room Air 01/23/17 10:45 Room Air 01/23/17 10:42 62 01/23/17 10:35 97.9 66 16 179/92 (121) 96 Room Air 01/23/17 10:13 62 22 98 01/23/17 08:12 97.6 68 30 155/92 (113) 96 I & O 01/24/17 07:00 Intake Total 2550 ml Output Total 2825 ml Balance -275 ml General Appearance: No Apparent Distress, WD/WN HEENT: PERRL/EOMI, Moist Mucous Membranes Neck: Non Tender, Supple Respiratory: Lungs Clear, No Respiratory Distress Cardiovascular: Regular Rate, Rhythm, No Murmur Capillary Refill: Less Than 3 Seconds Peripheral Pulses: 2+ Dorsalis Pedis (R), 2+ Left Dors-Pedis (L), 2+ Radial Pulses (R), 2+ Radial Pulses (L) Gastrointestinal: non tender, soft, abnormal bowel sounds (hypoactive) Extremity: Normal Capillary Refill, No Calf Tenderness Neurologic/Psychiatric: Alert, Oriented x3, Normal Mood/Affect Skin: Normal Color, Warm/Dry Results Lab Laboratory Tests 01/23/17 08:25 01/24/17 05:15 Assessment/Plan Assessment/Plan -MS charge/lethargy probably secondary to narcotic OD -Pt is now baseline -transfer to 4th floor. D/C m[facility]ure -Chronic pain -OBesity 254 Will transfer pt to 4th floor. D/C [facility]. I am going to sign off please call with any questions. Clinical Quality Measures DVT/VTE Risk/Contraindication: Risk Factor Score Per Nursin RFS Level Per Nursing on Admit: 4+=Very High ARAM SANCHEZ DO Jan 24, 2017 06:30
[2017-01-24 08:28] LABS: CREATININE URINE 33 MG/DL
[2017-01-24 08:29] LABS: OPIATES URINE QUAL DS Positive; URINE DRUG SCREEN Positive
[2017-01-24 08:30] LABS: BENZODIAZEPINE URINE QUAL DS Negative; METHADONE URINE QUAL DS Negative; PCP URINE QUAL DS Negative; PROPOXYPHENE URINE QUAL DS Negative; SALICYLATE URINE Negative
[2017-01-24 08:31] LABS: ETHANOL URINE QUAL DS Negative; THC URINE QUAL DS Negative
--- NOTE | 2017-01-24 09:07 | Diagnostic Imaging Report ---
EXAMINATION: Portable upright radiograph of the chest. INDICATION: Opiate narcosis COMPARISON: 01/20/2017. FINDINGS: There is minimal left basilar atelectasis. The right lung is clear. The heart size is mildly enlarged. No effusion or pneumothorax. The mediastinum and chet appear unremarkable. Post-kyphoplasty changes are seen in the mid and lower thoracic spine at 3 levels. When compared to the previous exam there is slight decrease in the pulmonary expansion bilaterally. IMPRESSION: Mild left basilar atelectasis. Cardiomegaly. Dictated by: Dictated on workstation # [id number]
--- NOTE | 2017-01-24 14:54 | Discharge Summary-Hospitalist ---
Diagnosis/Chief Complaint Date of Admission Jan 23, 2017 at 09:45 Date of Discharge Jan 24, 2017 at 13:20 Discharge Date: Jan 24, 2017 Discharge Time: 1300 Admission Diagnosis Narcotic Overdose Discharge Diagnosis Opiate Overdose (1) Opiate overdose Status: Acute Assessment & Plan: Per report son giving to patient inappropriately Received Narcan x3 and improved last night Hold narcotics (2) Hypothyroidism Status: Chronic Assessment & Plan: Resume on discharge (3) Chronic back pain Assessment & Plan: on chronic narcotics Will involved social work given concerns for misuse of medicines and involvement of son (4) Colostomy care Status: Chronic Assessment & Plan: Continue routine care (5) Essential (primary) hypertension Status: Chronic Assessment & Plan: Resume home meds (6) Prophylactic measure Discharge Summary Discharge Physical Examination Allergies: Coded Allergies: No Known Drug Allergies (Unverified , 06/10/15) Vitals & I&Os Vital Signs Date Time Temp Pulse Resp B/P (MAP) Pulse Ox O2 Delivery O2 Flow Rate FiO2 01/24/17 13:17 101 11 172/99 96 Room Air 2.00 01/24/17 04:00 98.0 Hospital Course Pt was admitted for narcotic overdose. She was given Narcan x3 with improvement in mentation. She maintained her airway throughout the evening and by morning on day two of admission was back to normal mentation. Per reports from other providers son was observed given her extra doses of pain medications. Once patient aroused she denied taking any medication that was not provided to her by the staff. Social work was involved to assist with this and I called and informed Dr. Brewer's office of concerns. Labs (last 24 hrs) Laboratory Tests 01/23/17 19:00: Troponin I < 0.30 01/24/17 05:15: White Blood Count 7.0, Red Blood Count 4.69, Hemoglobin 13.3, Hematocrit 40, Mean Corpuscular Volume 86, Mean Corpuscular Hemoglobin 28, Mean Corpuscular Hemoglobin Concent 33, Red Cell Distribution Width 16.8H, Platelet Count 297, Mean Platelet Volume 10.5H, Neutrophils (%) (Auto) 46, Lymphocytes (%) (Auto) 40 , Monocytes (%) (Auto) 9, Eosinophils (%) (Auto) 5, Basophils (%) (Auto) 1, Neutrophils # (Auto) 3.2, Lymphocytes # (Auto) 2.8, Monocytes # (Auto) 0.6, Eosinophils # (Auto) 0.3, Basophils # (Auto) 0.1, Sodium Level 139, Potassium Level 4.2, Chloride Level 112H, Carbon Dioxide Level 19L, Anion Gap 8, Blood Urea Nitrogen 8, Creatinine 0.73, Estimat Glomerular Filtration Rate > 60, BUN/ Creatinine Ratio 11, Glucose Level 88, Calcium Level 9.4, Phosphorus Level 3.1, Magnesium Level 2.0 Discharge Home Medications: Active Scripts Active Reported Nystatin 1 Each Powder.ea. TOP Q12H CLEAN UNDER LEFT BREAST PAT DRY AND CLEAN BILATERAL GROIN AND PAT DRY THEN APPLY NYSTATIN POWDER UNTIL HEALED Bisacodyl 5 Mg Tablet.dr 5 Mg PO QID PRN Cefdinir 300 Mg Capsule 300 Mg PO BID START DATE 01-18-17 Bactrim Ds Tablet (Sulfamethoxazole/Trimethoprim) 1 Each Tablet 1 Tab PO BID START DATE 01-18-17 Zofran (Ondansetron HCl) 4 Mg Tab 4 Mg PO Q4H PRN Pyridium (Phenazopyridine HCl) 200 Mg Tablet 200 Mg PO Q8H PRN Remeron (Mirtazapine) 15 Mg Tablet 15 Mg PO HS Biofreeze (Menthol) 118 Ml Gel..ml. TP BID APPLY TO RIGHT LEG FROM KNEE TO LOWER LEG Breo Ellipta 100-25 Mcg INH (Fluticasone/Vilanterol) 1 Each Blst.w.dev 1 Puff IH DAILY Temazepam 15 Mg Capsule 15 Mg PO HS Lorazepam 1 Mg Tablet 1 Mg PO BID Hydrocodon-Acetaminophn 10-325 (Hydrocodone/Acetaminophen) 1 Each Tablet 1 Tab PO Q4H PRN Lyrica (Pregabalin) 50 Mg Capsule 150 Mg PO Q12H Ropinirole HCl 4 Mg Tablet 4 Mg PO HS Levothyroxine Sodium 112 Mcg Tablet 112 Mcg PO DAILY Pantoprazole Sodium 40 Mg Tablet.dr 40 Mg PO DAILY Clopidogrel (Clopidogrel Bisulfate) 75 Mg Tablet 75 Mg PO DAILY Nitrostat (Nitroglycerin) 0.4 Mg Tab.subl 0.4 Mg SL UD PRN Metoprolol Succinate 50 Mg Tab.er.24h 50 Mg PO DAILY NOTIFY MD IF SBP LESS THAN 90 OR GREATHER THAN 200 OR PULSE LESS THAN 50 Zetia (Ezetimibe) 10 Mg Tablet 10 Mg PO DAILY Instructions to patient/family Please see electronic discharge instructions given to patient. Clinical Quality Measures DVT/VTE Risk/Contraindication: Risk Factor Score Per Nursin RFS Level Per Nursing on Admit: 4+=Very High Copy Copies To 1: TORIBIO BREWER DO Problem Qualifiers (1) Opiate overdose: Encounter type: initial encounter Injury intent: undetermined intent Qualified Codes: T40.604A - Poisoning by unspecified narcotics, undetermined, initial encounter (2) Hypothyroidism: Hypothyroidism type: unspecified Qualified Codes: E03.9 - Hypothyroidism, unspecified MARY GORE MD Jan 24, 2017 14:54
== END 2017-01-24 10:42 ==
LOC: EDUNIT# 08:12 → ER 08:14 → ICU 09:45 → UNDOADMOB 09:45 → ICU 10:33 → UNDODISOB 01-24 13:20
PROVIDERS: ADMIT Family Medicine; ATTEND Family Medicine
DX: T40.601A Poisoning by unspecified narcotics, accidental (unintentional), initial encounter (principal); E03.9 Hypothyroidism, unspecified; M54.9 Dorsalgia, unspecified; I10 Essential (primary) hypertension; I25.10 Atherosclerotic heart disease of native coronary artery without angina pectoris; E78.00 Pure hypercholesterolemia, unspecified; K21.9 Gastro-esophageal reflux disease without esophagitis; M81.0 Age-related osteoporosis without current pathological fracture; F41.9 Anxiety disorder, unspecified; F32.9 Major depressive disorder, single episode, unspecified; J44.9 Chronic obstructive pulmonary disease, unspecified; J45.909 Unspecified asthma, uncomplicated; I25.2 Old myocardial infarction; Z87.891 Personal history of nicotine dependence; Z95.5 Presence of coronary angioplasty implant and graft; Z93.3 Colostomy status; Z79.899 Other long term (current) drug therapy
CPT/HCPCS: 36415; 51702; 71010; 80048; 80053; 80307; 81000; 83735; 84100; 84484; 85025; 93005; G0378

== ENCOUNTER → 2017-03-16 | Outpatient (CLI) | payer MEDICARE, MEDICAID ==
[~2017-03-16] MED LIST changes: +ACHD5005 PO; +BISA5TAB8 PO; +FLUT1AER IH; -HYDR-3812 PO; +MENT118G TP; +MIRT15TA PO; +NYST1POW22 TOP; +ONDN4T PO; +PREG50CA2 PO; +TEMA15CA PO
--- NOTE | 2017-03-16 12:20 | Diagnostic Imaging Report ---
INDICATION: Cough and difficulty breathing. TIME OF EXAMINATION: 10:31 AM. COMPARISON: 01/24/2017. FINDINGS: The heart size is stable. There are calcified lymph nodes in the subcarinal and left hilar location, consistent with prior granulomatous exposure. There are kyphoplasty changes in the lower thoracic spine. The lungs are clear. The pulmonary vascularity is normal. No infiltrate, effusion, or pneumothorax is seen. IMPRESSION: No acute cardiopulmonary process is detected. Dictated by: Dictated on workstation # [id number]
== END ==
LOC: RAD 10:01
PROVIDERS: ATTEND Nurse Practitioner Family
DX: R05 Cough (principal); R06.00 Dyspnea, unspecified
CPT/HCPCS: 71045

== ENCOUNTER → 2017-04-17 | Outpatient (CLI) | payer MEDICARE, MEDICAID ==
[~2017-04-17] MED LIST changes: +HYDR-34 PO; -HYDR-3816 PO
== END ==
LOC: CARD 11:19
PROVIDERS: ATTEND Internal Medicine Cardiovascular Disease
DX: I25.10 Atherosclerotic heart disease of native coronary artery without angina pectoris (principal); R07.89 Other chest pain; I10 Essential (primary) hypertension; E78.4 Other hyperlipidemia; R06.02 Shortness of breath; M54.5 Low back pain; Z93.3 Colostomy status
CPT/HCPCS: 93306

== ENCOUNTER → 2017-04-20 | Outpatient (CLI) | payer MEDICARE, MEDICAID ==
[~2017-04-20] MED LIST changes: +CATHETER FLUSH 10 ML SYR IV PRN; +REGADENOSON 0.4 MG/5 ML SYR (LEXISCAN) IV ONE
[2017-04-20 09:06] VITALS: BP 151/93
[2017-04-20 09:11] VITALS: BP 139/86
--- NOTE | 2017-04-20 13:15 | STRESS TEST ---
DATE OF SERVICE: 04/20/2017 RESTING AND POST REGADENOSON TECHNETIUM-99M TETROFOSMIN SPECT CT IMAGING CLINICAL DIAGNOSIS: Coronary artery disease. ORDERING PHYSICIAN: Dr. Rosales. PRIMARY PHYSICIAN: Dr. Brewer. Baseline images were carried out after injection of 10.94 mCi of technetium-99 Tetrofosmin. This was followed by 0.4 mg regadenoson and 32.6 mCi technetium-99m Tetrofosmin for stress imaging. The electrocardiogram showed sinus rhythm with subtle nonspecific ST abnormality at baseline. The electrocardiogram did not change significantly with the regadenoson infusion. The patient noted mild shortness of breath following regadenoson infusion, which resolved in a few minutes. Review of images at rest and following stress does not indicate any significant perfusion defects consistent with any significant myocardial ischemia or infarction. Gated images show normal global left ventricular systolic function with normal regional wall motion. Left ventricular ejection fraction is calculated to be 75%. Left ventricular end diastolic volume is 42 mL. TID is absent (0.97). CONCLUSIONS: 1. No evidence of any significant myocardial ischemia or infarction. 2. Normal regional wall motion. 3. Normal global left ventricular systolic function with a calculated ejection fraction of 75%. 4. Normal left ventricular cavity size vessel. Job ID: [id number] DocumentID: [id number] Dictated Date: 04/20/2017 10:30:00 Sales Service Manager Date: 04/20/2017 13:14:38 Dictated By: LUIS ROSALES MD, MA, FACP, FACC,
== END ==
LOC: CARD 08:05
PROVIDERS: ATTEND Internal Medicine Cardiovascular Disease
DX: I25.10 Atherosclerotic heart disease of native coronary artery without angina pectoris (principal); R07.89 Other chest pain; I10 Essential (primary) hypertension; E78.5 Hyperlipidemia, unspecified; R06.02 Shortness of breath; M54.5 Low back pain; Z93.3 Colostomy status
CPT/HCPCS: 78452; 93017

== ENCOUNTER → 2017-07-14 | Outpatient (CLI) | payer MEDICARE, MEDICAID ==
[~2017-07-14] MED LIST changes: -CATHETER FLUSH 10 ML SYR IV PRN; +FLUC200T PO; +MICO1KIT13 VG; -REGADENOSON 0.4 MG/5 ML SYR (LEXISCAN) IV ONE
[2017-07-14 16:57] LABS: BILIRUBIN,URINE NEGATIVE (NEGATIVE); CLARITY,URINE CLEAR; COLOR,URINE YELLOW; GLUCOSE, URINE (UA) NEGATIVE (NEGATIVE); KETONES,URINE NEGATIVE (NEGATIVE); LEUKOCYTE ESTERASE ,URINE 2+ (NEGATIVE); NITRITE,URINE NEGATIVE (NEGATIVE); PH,URINE 7 (5-9); PROTEIN,URINE NEGATIVE (NEGATIVE); UROBILINOGEN,URINE NORMAL (NORMAL)
[2017-07-14 17:04] LABS: BACTERIA,URINE FEW /HPF; SQUAMOUS EPITHELIAL CELL,UR 0-2 /HPF
== END ==
LOC: LABNPT 16:50
PROVIDERS: ATTEND Internal Medicine
DX: N39.0 Urinary tract infection, site not specified (principal)
CPT/HCPCS: 81000; 87077; 87088; 87186

== ENCOUNTER 2017-07-28 16:48 | Emergency (ER) | payer MEDICARE, MEDICAID ==
[~2017-07-28] VITALS: Ht 165.1 cm; Wt 81.6 kg
[~2017-07-28 16:48] MED LIST changes: -FLUC200T PO; -MICO1KIT13 VG
--- OUTSIDE RECORDS SUMMARY | 2017-07-28 16:53 | XMS REPORT | Clinical Summary ---
Author Author [facility] Organization [facility] Address Unknown Phone Unavailable Care Team Providers Care Treasury Associate Name Role Phone Donna Brown RN Unavailable Unavailable Michael Mandujano MD Unavailable Alfonso Lino DO Unavailable Alfonso Keith MD Unavailable Eliud Brewer MD PCP Source Comments Some departments are not documenting in the electronic medical record. If you do not see the information that you expected, contact Release of Information in the Health Information Management department at [phone] for further assistance in locating additional records.[facility] Allergies Active Allergy Reactions Severity Noted Date [...] emulsion needed. fluticasone (FLONASE) 50 Apply 1 [place] to each Active mcg/actuation nasal spray nostril [...] (coronary artery disease) 06/03/2009 Overview: Hx of [place] 4 yrs ago Depression 06/03/2009 Arthritis 06/03/2009 [...] 04/27/1955 SHINGLES VACCINE 1998 OSTEOPOROSIS SCREENING 04/27/2003 PNEUMONIA (PCV13/PPSV23) 04/27/2003 VACCINES (1 of 2 - PCV13) INFLUENZA VACCINE 11/20/2017 Implants Implanted Type Area Marine Pipefitter Helper Device Expiration Model / Identifier Date Serial / Lot Lens-04/22/2004 Other / Implanted: 04/22/2004 (Quantity not / on file) [id number]/7/2004 Stent / Implanted: 01/27/2004 by Bobby, / MD Karina (Quantity not on file) [id number] Results Not on filefrom Last 3 Months
[2017-07-28] MEDS ORDERED: LACTATED RINGERS 1,000 ML IV ONE (18:14)
[2017-07-28] MEDS ORDERED: KETOROLAC 30 MG/ML VIAL IVP STA (18:14)
[2017-07-28] MEDS ORDERED: HYOSCYAMINE 0.125 MG (LEVSIN) TAB PO ONE (18:15)
--- NOTE | 2017-07-28 18:24 | ED Abdominal Pain ---
General Stated Complaint: ABD CRAMPS Source of Information: Patient, Old Records (PT WITH MULTITUDE OF PRIOR VISITS) History of Present Illness Date Seen by Provider: Jul 28, 2017 Time Seen by Provider: 18:05 Initial Comments PT ARRIVES VIA POV FROM HOME--( PT HAS BEEN A RESIDENT AT [facility] IN THE PAST, RECENT 01/2017 ) C/O DIFFUSE ABDOMINAL PAIN AND CRAMPING FOR OVER A WEEK PT HAD COLOSTOMY REVERSAL/TAKE DOWN AND LARGE VENTRAL HERNIA REPAIR DONE IN [place] BY DR. GUZMAN IN APRIL--AROUND 05/12/17 HAS BEEN IN REHAB IN [place], [place] UNTIL [address] GUZMAN TWICE WHILE IN REHAB, THE LAST TIME BEING SOME TIME THE LAST WEEK BEFORE SHE WAS DISMISSED. HAS NOT FOLLOWED UP WITH ANYONE SINCE SHE HAS BEEN BACK HOME STATES PAIN IS SEVERE AND IS MUCH WORSE WITH EATING, BUT CONTINUES TO EAT AND DRINK LAST MEAL WAS AROUND 0730 THIS AM, AND SHE HAD OATMEAL AND HAS NOT EATEN SINCE DUE TO PAIN NO NAUSEA/VOMITING IS HAVING NORMAL BM'S --LAST BM WAS LAST PM NO FEVER VOIDING A NORMAL AMOUNT WAS RECENTLY DX WITH UTI AND HAD BEEN ON ANTIBIOTICS ( AUGMENTIN ) , BUT GOT A YEAST INFECTION IN GENITAL AREA AND MOUTH, SO SHE STOPPED THE ANTIBIOTIC AFTER A FEW DAYS AND TOOK MEDICATION FOR YEAST. STILL WITH SOME BURNING ON URINATION AND IN GENITAL AREA HAS NOT TAKEN ANYTHING FOR PAIN AT ANY TIME, YET REPEATEDLY ASKING FOR PAIN MEDICATION SOON SHE ARRIVES IN ER SYMPTOMS NOT ACTUALLY ANY DIFFERENT TODAY HAS NOT SOUGHT CARE UNTIL TODAY --CALLED DR. GUZMAN'S OFFICE LATE THIS AFTERNOON , AND WAS ADVISED TO GO TO ER, IT WAS AFTER HOURS ON MONDAY AFTERNOON. HAS AN APPOINTMENT WITH DR. FOFANA ON MONDAY, AND AN APPOINTMENT WITH DR. GUZMAN ON MONDAY PCP: DR. FOFANA--HAS NOT ATTEMPTED TO CONTACT HIM FOR THIS PROBLEM AND DOES NOT HAVE AN APPOINTMENT IN THE NEAR FUTURE Allergies and Home Medications Allergies Coded Allergies: No Known Drug Allergies (Unverified , 06/10/15) Home Medications Bisacodyl 5 Mg Tablet.dr 5 MG PO QID PRN for CONSTIPATION-1ST LINE, (Reported) Cefdinir 300 Mg Capsule, 300 MG PO BID, (Reported) START DATE 01-18-17 Clopidogrel Bisulfate 75 Mg Tablet, 75 MG PO DAILY, (Reported) Ezetimibe 10 Mg Tablet, 10 MG PO DAILY, (Reported) Fluconazole 200 Mg Tablet, 200 MG PO DAILY Prescribed by: BETTY MAZARIEGOS on 07/28/172032 Fluticasone/Vilanterol 1 Each Blst.w.dev, 1 PUFF IH DAILY, (Reported) Hydrocodone/Acetaminophen 1 Each Tablet, 1 TAB PO Q4H PRN for PAIN-MODERATE, ( Reported) Hyoscyamine Sulfate 0.125 Mg Tab.subl, 1-2 TAB SL Q4H Prescribed by: BETTY MAAZRIEGOS on 07/28/172032 Levothyroxine Sodium 112 Mcg Tablet, 112 MCG PO DAILY, (Reported) Lorazepam 1 Mg Tablet, 1 MG PO BID, (Reported) Menthol 118 Ml Gel..ml., TP BID, (Reported) APPLY TO RIGHT LEG FROM KNEE TO LOWER LEG Metoprolol Succinate 50 Mg Tab.er.24h, 50 MG PO DAILY, (Reported) NOTIFY MD IF SBP LESS THAN 90 OR GREATHER THAN 200 OR PULSE LESS THAN 50 Miconazole/Skin Cleanser No.17 1 Each Kit, 1 EACH VG UD Prescribed by: BETTY MAZARIEGOS on 07/28/172032 Mirtazapine 15 Mg Tablet, 15 MG PO HS, (Reported) Nitrofurantoin Monohyd/M-Cryst 100 Mg Capsule, 100 MG PO BID Prescribed by: BETTY MAZARIEGOS on 07/28/172032 Nitroglycerin 0.4 Mg Tab.subl, 0.4 MG SL UD PRN for CHEST PAIN, (Reported) Nystatin 1 Each Powder.ea., TOP Q12H, (Reported) CLEAN UNDER LEFT BREAST PAT DRY AND CLEAN BILATERAL GROIN AND PAT DRY THEN APPLY NYSTATIN POWDER UNTIL HEALED Ondansetron HCl 4 Mg Tab, 4 MG PO Q4H PRN for NAUSEA/VOMITING-1ST LINE, ( Reported) Pantoprazole Sodium 40 Mg Tablet.dr, 40 MG PO DAILY, (Reported) Phenazopyridine HCl 200 Mg Tablet, 200 MG PO Q8H PRN for URINARY PAIN, (Reported ) Phenazopyridine HCl 200 Mg Tablet, 1 TAB PO TID Prescribed by: BETTY MAZARIEGOS on 07/28/172032 Pregabalin 50 Mg Capsule, 150 MG PO Q12H, (Reported) Ropinirole HCl 4 Mg Tablet, 4 MG PO HS, (Reported) Sulfamethoxazole/Trimethoprim 1 Each Tablet, 1 TAB PO BID, (Reported) START DATE 01-18-17 Temazepam 15 Mg Capsule, 15 MG PO HS, (Reported) Patient Home Medication List Home Medication List Reviewed: Yes Review of Systems Constitutional: other (STATES WHEN THE PAIN IS BAD, SHE GETS SWEATY AND CLAMMY AND WEAK AND DIZZY) Respiratory: No Symptoms Reported Cardiovascular: No Symptoms Reported Gastrointestinal: See HPI, Abdominal Pain; Denies Constipated, Denies Diarrhea , Denies Nausea, Denies Vomiting Genitourinary: See HPI Musculoskeletal: no symptoms reported Skin: no symptoms reported Psychiatric/Neurological: No Symptoms Reported Endocrine: No Symptoms Reported Hematologic/Lymphatic: No Symptoms Reported Past Rjsbyhx-Sfbzyj-Vqsqrs Hx Patient Social History Alcohol Use: Denies Use Recreational Drug Use: Yes (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, Menopausal Genitourinary: Yes (INCONTINENCE) Kidney Infection, Bladder Infection, UTI-Chronic Gastrointestinal: Yes (COLON RESECTION WITH COLOSTOMY FOR PERFORATED DIVERTICULUM; COLOSTOMY TAKEDOWN/REVERSAL AND VENTRAL /PARASTOMAL HERNIA REPAIR 05/12/17; DYSPHAGIA; ESOPHAGEAL STRICTURES/DILATIONS) Abdominal Hernia, Gastroesophageal Reflux, Diverticulosis, Esophagitis Musculoskeletal: Yes (FALLS/IMPAIRED MOBILITY--USES WALKER; RESTLESS LEG SYNDROME; RIGHT HIP FX/ORIF 03/2016; RIGHT BAKERS' CYST; VERTEBRAL COMPRESSION FX'S WITH KYPHOPLASTY X 2) Osteoporosis, Arthritis, Chronic Back Pain, Fractures Endocrine: Yes (HYPOTHYROID) Hypothyroidsim HEENT: Yes (FULL DENTURES) Cataract, Dysphagia Loss of Vision: Denies Hearing Impairment: Denies Cancer: No Psychosocial: Yes (EXTENSIVE HISTORY OF RX ABUSE/OVERDOSES--OPIATES AND BENZO' S ) Anxiety, Depression Integumentary: No Blood Disorders: Yes (anemia post op epideral site,bld transfusion) Adverse Reaction/Blood Tranf: No Family Medical History Family history: Hypertension G8 BROTHER Myocardial infarction 19 MOTHER G8 BROTHER Physical Exam Vital Signs Vital Signs - First Documented 07/28/17 18:14 Temp 97.5 Pulse 75 Resp 18 B/P (MAP) 122/105 (111) Pulse Ox 95 O2 Delivery Room Air Capillary Refill : General Appearance: WD/WN, no apparent distress, other (LAYING OUTSTRETCHED, DOES NOT APPEAR TO BE IN ANY DISCOMFORT OR DISTRESS AT THIS TIME) Neck: normal inspection Respiratory: normal breath sounds, no respiratory distress, no accessory muscle use Cardiovascular: regular rate, rhythm, no edema, no JVD, no murmur Gastrointestinal: normal bowel sounds, soft, no organomegaly, no pulsatile mass , tenderness (MILD DIFFUSE TENDERNESS) Extremities: normal inspection, no pedal edema, no calf tenderness, normal capillary refill Back: no CVA tenderness Neurologic/Psychiatric: blanket inspector II-XII nml as tested, no motor/sensory deficits, alert, normal mood/affect, oriented x 3 Skin: normal color, warm/dry, other (SURGICAL WOUNDS WELL HEALED. NO SIGNS OF INFECTION) Progress/Results/Core Measures Results/Orders Lab Results Laboratory Tests Test 07/28/17 18:23 07/28/17 18:32 Range/Units Urine Color YELLOW Urine Clarity CLEAR Urine pH 5 5-9 Urine Specific [place] 1.015 L 1.016-1.022 Urine Protein NEGATIVE NEGATIVE Urine Glucose (UA) NEGATIVE NEGATIVE Urine Ketones NEGATIVE NEGATIVE Urine Nitrite POSITIVE H NEGATIVE Urine Bilirubin NEGATIVE NEGATIVE Urine Urobilinogen NORMAL NORMAL MG/DL Urine Leukocyte Esterase 2+ H NEGATIVE Urine RBC (Auto) NEGATIVE NEGATIVE Urine RBC NONE /HPF Urine WBC 50-100 H /HPF Urine Crystals NONE /LPF Urine Bacteria MODERATE H /HPF Urine Casts NONE /LPF Urine Mucus NEGATIVE /LPF Urine Culture Indicated YES White Blood Count 7.1 4.3-11.0 10^3/uL Red Blood Count 4.48 4.35-5.85 10^6/uL Hemoglobin 12.3 11.5-16.0 G/DL Hematocrit 37 35-52 % Mean Corpuscular Volume 83 80-99 FL Mean Corpuscular Hemoglobin 28 25-34 PG Mean Corpuscular Hemoglobin Concent 33 32-36 G/DL Red Cell Distribution Width 17.3 H 10.0-14.5 % Platelet Count 418 H 130-400 10^3/uL Mean Platelet Volume 9.7 7.4-10.4 FL Neutrophils (%) (Auto) 56 42-75 % Lymphocytes (%) (Auto) 33 12-44 % Monocytes (%) (Auto) 7 0-12 % Eosinophils (%) (Auto) 4 0-10 % Basophils (%) (Auto) 0 0-10 % Neutrophils # (Auto) 4.0 1.8-7.8 X 10^3 Lymphocytes # (Auto) 2.3 1.0-4.0 X 10^3 Monocytes # (Auto) 0.5 0.0-1.0 X 10^3 Eosinophils # (Auto) 0.3 0.0-0.3 10^3/uL Basophils # (Auto) 0.0 0.0-0.1 10^3/uL Sodium Level 134 L 135-145 MMOL/L Potassium Level 4.2 3.6-5.0 MMOL/L Chloride Level 106 98-107 MMOL/L Carbon Dioxide Level 20 L 21-32 MMOL/L Anion Gap 8 5-14 MMOL/L Blood Urea Nitrogen 12 7-18 MG/DL Creatinine 0.75 0.60-1.30 MG/DL Estimat Glomerular Filtration Rate > 60 BUN/Creatinine Ratio 16 Glucose Level 104 70-105 MG/DL Calcium Level 9.9 8.5-10.1 MG/DL Total Bilirubin 0.3 0.1-1.0 MG/DL Aspartate Amino Transf (AST/SGOT) 11 5-34 U/L Alanine Aminotransferase (ALT/SGPT) 9 0-55 U/L Alkaline Phosphatase 73 40-136 U/L Total Protein 6.2 L 6.4-8.2 GM/DL Albumin 3.6 3.2-4.5 GM/DL Amylase Level 25 25-125 U/L Lipase 5 L 8-78 U/L My Orders Orders - BETTY MAZARIEGOS DO Saline Lock/Iv-Start (07/28/17 18:14) Amylase (07/28/17 18:14) Cbc With Automated Diff (07/28/17 18:14) Comprehensive Metabolic Panel (07/28/17 18:14) Lipase (07/28/17 18:14) Ua Culture If Indicated (07/28/17 18:14) Saline Lock/Iv-Start (07/28/17 18:14) Lactated Ringers (Lr 1000 Ml Iv Solution (07/28/17 18:14) Ketorolac Injection (Toradol Injection) (07/28/17 18:14) Hyoscyamine Sl Tablet (Levsin Sl Tablet) (07/28/17 18:15) Urine Culture (07/28/17 18:23) Ct Abdomen/Pelvis W (07/28/17 19:10) Acute Abd Series (07/28/17 19:10) Iohexol Injection (Omnipaque 350 Mg/Ml 1 (07/28/17 19:30) Sodium Chloride Flush (Catheter Flush Sy (07/28/17 19:30) Ns (Ivpb) (Sodium Chloride 0.9%) (07/28/17 19:30) Pharmacy Communication (Pharmacy Communi (07/28/17 19:30) Ceftriaxone Injection (Rocephin Injectio (07/28/17 20:30) Medications Given in ED Current Medications Medications Dose Ordered Sig/Perez Route Start Time Stop Time Status Last Admin Dose Admin Hyoscyamine Sulfate 0.25 mg ONCE ONCE PO 07/28/17 18:15 07/28/17 18:16 DC 07/28/17 18:48 0.25 MG Iohexol 100 ml ONCE ONCE IV 07/28/17 19:30 07/28/17 19:32 DC 07/28/17 19:40 100 ML Lactated Ringer's 1,000 ml @ 0 mls/hr Q0M ONCE IV 07/28/17 18:14 07/28/17 18:16 DC 07/28/17 18:47 1,000 MLS/HR Sodium Chloride 10 ml NEEDED PRN IV 07/28/17 19:30 07/28/17 19:40 10 ML Sodium Chloride 250 ml ONCE ONCE IV 07/28/17 19:30 07/28/17 19:32 DC 07/28/17 19:40 80 ML Vital Signs/I&O 07/28/17 18:14 Temp 97.5 Pulse 75 Resp 18 B/P (MAP) 122/105 (111) Pulse Ox 95 O2 Delivery Room Air Progress Progress Note : Progress Note PAIN EASED AT DISMISSAL Diagnostic Imaging Comments ACUTE ABDOMEN XRAYS--NO ACUTE PROCESS CT ABDOMEN/PELVIS--NO ACUTE PROCESS PER RADIOLOGIST REPORTS @ 2022 Reviewed: Reviewed by Me Departure Impression Primary Impression: Urinary tract infection Disposition: HOME, SELF-CARE Condition: Improved Departure-Patient Inst. Referrals: TORIBIO FOFANA DO (PCP/Family) Primary Care Physician Patient Instructions: Urinary Tract Infection, Adult (DC) Add. Discharge Instructions: LOTS OF CLEAR LIQUIDS--NO COFFEE, POP OR TEA FOLLOW UP WITH DR. FOFANA AND DR. GUZMAN NEXT WEEK SCHEDULED Scripts Phenazopyridine HCl (Pyridium) 200 Mg Tablet 1 TAB PO TID for BLADDER DISCOMFORT, #15 TAB Prov: BETTY MAZARIEGOS DO 07/28/17 Miconazole/Skin Cleanser No.17 (Monistat 7 Combination Pack) 1 Each Kit 1 EACH VG UD, #1 KIT Prov: BETTY MAZARIEGOS DO 07/28/17 Fluconazole (Diflucan) 200 Mg Tablet 200 MG PO DAILY for FOR YEAST INFECTION, #10 TAB Prov: BETTY MAZARIEGOS DO 07/28/17 Hyoscyamine Sulfate (Levsin-Sl) 0.125 Mg Tab.subl 1-2 TAB SL Q4H for Abdominal Pain, #15 TAB Prov: BETTY MAZARIEGOS DO 07/28/17 Nitrofurantoin Monohyd/M-Cryst (Macrobid 100 mg Capsule) 100 Mg Capsule 100 MG PO BID, #20 CAP Prov: BETTY MAZARIEGOS DO 07/28/17 BETTY MAZARIEGOS DO Jul 28, 2017 18:24
[2017-07-28 18:40] LABS: BASOPHILS % (AUTO) 0 % (0-10); EOSINOPHILS # (AUTO) 0.3 10^3/uL (0.0-0.3); EOSINOPHILS % (AUTO) 4 % (0-10); HEMATOCRIT 37 % (35-52); HEMOGLOBIN 12.3 G/DL (11.5-16.0); LYMPHOCYTES # (AUTO) 2.3 X 10^3 (1.0-4.0); LYMPHOCYTES % (AUTO) 33 % (12-44); MEAN CORPUSCULAR HEMOGLOBIN 28 PG (25-34); MEAN CORPUSCULAR HGB CONC 33 G/DL (32-36); MEAN CORPUSCULAR VOLUME 83 FL (80-99); MEAN PLATELET VOLUME 9.7 FL (7.4-10.4); MONOCYTES # (AUTO) 0.5 X 10^3 (0.0-1.0); MONOCYTES % (AUTO) 7 % (0-12); NEUTROPHILS % (AUTO) 56 % (42-75); PLATELET COUNT 418 10^3/uL (130-400); RED BLOOD COUNT 4.48 10^6/uL (4.35-5.85); RED CELL DISTRIBUTION WIDTH 17.3 % (10.0-14.5); WHITE BLOOD COUNT 7.1 10^3/uL (4.3-11.0)
[2017-07-28 18:44] LABS: CLARITY,URINE CLEAR; COLOR,URINE YELLOW
[2017-07-28 18:45] LABS: BACTERIA,URINE MODERATE /HPF; BILIRUBIN,URINE NEGATIVE (NEGATIVE); GLUCOSE, URINE (UA) NEGATIVE (NEGATIVE); KETONES,URINE NEGATIVE (NEGATIVE); LEUKOCYTE ESTERASE ,URINE 2+ (NEGATIVE); NITRITE,URINE POSITIVE (NEGATIVE); PH,URINE 5 (5-9); PROTEIN,URINE NEGATIVE (NEGATIVE); UROBILINOGEN,URINE NORMAL (NORMAL); WBC,URINE 50-100 /HPF
[2017-07-28 19:06] LABS: BUN/CREATININE RATIO 16; CALCIUM 9.9 MG/DL (8.5-10.1); CARBON DIOXIDE 20 MMOL/L (21-32); CHLORIDE 106 MMOL/L (98-107); CREATININE SERUM 0.75 MG/DL (0.60-1.30); GFR ESTIMATED > 60; GLUCOSE 104 MG/DL (70-105); POTASSIUM 4.2 MMOL/L (3.6-5.0); SODIUM 134 MMOL/L (135-145)
[2017-07-28 19:07] LABS: ALANINE AMINOTRANSFERASE 9 U/L (0-55); ALBUMIN 3.6 GM/DL (3.2-4.5); ALKALINE PHOSPHATASE 73 U/L (40-136); AMYLASE 25 U/L (25-125); BILIRUBIN,TOTAL 0.3 MG/DL (0.1-1.0); LIPASE 5 U/L (8-78); TOTAL PROTEIN 6.2 GM/DL (6.4-8.2)
[2017-07-28] MEDS ORDERED: CATHETER FLUSH 10 ML SYR IV PRN (19:30)
[2017-07-28] MEDS ORDERED: NS 250 ML (IVPB) BAG IV ONE (19:30)
[2017-07-28] MEDS ORDERED: IOHEXOL 350 MG/ML 100 ML (OMNIPAQUE 350) VIAL IV ONE (19:30)
--- NOTE | 2017-07-28 20:00 | Diagnostic Imaging Report ---
PROCEDURE: CT abdomen and pelvis with contrast. TECHNIQUE: Multiple contiguous axial images were obtained through the abdomen and pelvis after administration of intravenous contrast. INDICATION: Diarrhea. Abdominal cramping. History of previous hernia repair. COMPARISON: 10/31/2016 FINDINGS: Included portions of the lung bases are obscured by motion artifact, but are grossly unremarkable. CT abdomen: Normal appendix cannot be adequately identified, but there is no pericecal inflammation. Small bowel loops are nondistended. Postsurgical changes of previous ventral hernia repair are noted. There is no evidence of recurrent or residual ventral hernia on today's study. The spleen, kidneys, adrenal glands, pancreas, and liver have a normal CT appearance. There is no loculated fluid collection, free fluid, nor free air within the abdomen. No abnormal mesenteric or retroperitoneal adenopathy is seen. There is mild to moderate scattered calcified aortic and arterial atherosclerosis. Bony structures show no acute abnormalities. CT pelvis: Urinary bladder is grossly unremarkable. There is no loculated fluid collection, free fluid, nor free air within the pelvis. No abnormal adenopathy is seen. Bony structures show no acute abnormalities. IMPRESSION: 1. No acute abnormalities are seen within the abdomen or pelvis. 2. Postsurgical changes of previous ventral hernia repair. Dictated by: Dictated on workstation # [id number]
--- NOTE | 2017-07-28 20:02 | Diagnostic Imaging Report ---
INDICATION: Diarrhea. Cramping. History of previous hernia repair COMPARISON: 03/16/2017 FINDINGS: Supine and upright views of the abdomen show a nondistended bowel gas pattern. No abnormal air fluid levels or free intraperitoneal air is seen. No abnormal extraosseous calcifications are seen. Bony and soft tissue structures are within normal limits. No organomegaly is identified. Postsurgical changes of previous ventral hernia. Previous thoracic and lumbar methylmethacrylate augmentation changes are also noted. Accompanying upright chest shows normal heart size and pulmonary vascularity. The lungs are well aerated and clear. The mediastinum is normal in appearance. IMPRESSION: 1. No bowel obstruction or free air. 2. Normal chest. No pneumonia or pulmonary edema. Dictated by: Dictated on workstation # [id number]
[2017-07-28] MEDS ORDERED: cefTRIAXone INJECTION 1,000 MG in NS (IVPB) 50 ML IV ONE (20:30)
[2017-07-28] MEDS ORDERED: NITR-65 PO (20:33)
[2017-07-28] MEDS ORDERED: HYOS0.1283 SL (20:33)
[2017-07-28] MEDS ORDERED: FLUC200T PO (20:33)
[2017-07-28] MEDS ORDERED: MICO1KIT13 VG (20:33)
[2017-07-28] MEDS ORDERED: PHEN-640 PO (20:33)
[2017-07-28 21:01] VITALS: BP 156/81
[2017-08-01] MEDS ORDERED: SULF1TAB35 PO (20:25)
== END 2017-07-28 21:01 | disposition home or self-care (01) ==
LOC: EDUNIT# 16:48 → ER 16:49
DX: N39.0 Urinary tract infection, site not specified (principal); G47.30 Sleep apnea, unspecified; J44.9 Chronic obstructive pulmonary disease, unspecified; I25.10 Atherosclerotic heart disease of native coronary artery without angina pectoris; I25.2 Old myocardial infarction; I10 Essential (primary) hypertension; E78.00 Pure hypercholesterolemia, unspecified; K21.9 Gastro-esophageal reflux disease without esophagitis; M81.0 Age-related osteoporosis without current pathological fracture; F41.9 Anxiety disorder, unspecified; F32.9 Major depressive disorder, single episode, unspecified; E03.9 Hypothyroidism, unspecified; Z90.49 Acquired absence of other specified parts of digestive tract; Z87.440 Personal history of urinary (tract) infections; Z79.02 Long term (current) use of antithrombotics/antiplatelets; Z87.891 Personal history of nicotine dependence; Z82.49 Family history of ischemic heart disease and other diseases of the circulatory system; Z87.19 Personal history of other diseases of the digestive system; Z86.718 Personal history of other venous thrombosis and embolism; Z90.89 Acquired absence of other organs; Z93.3 Colostomy status; Z98.890 Other specified postprocedural states; Z90.710 Acquired absence of both cervix and uterus; Z95.5 Presence of coronary angioplasty implant and graft
CPT/HCPCS: 36415; 74022; 74177; 80053; 81000; 82150; 83690; 85025; 87077; 87088; 87186; 96374; 96375

== ENCOUNTER 2017-09-01 14:16 | Emergency (ER) | payer MEDICARE, MEDICAID ==
[~2017-09-01] VITALS: Ht 154.9 cm; Wt 72.1 kg
[~2017-09-01 14:16] MED LIST changes: +FLUC200T PO; +MICO1KIT13 VG
[2017-09-01] MEDS ORDERED: fentaNYL INJECTION 100 MCG/2 ML AMP IM ONE (14:45)
--- NOTE | 2017-09-01 15:22 | ED Fall/Injury ---
General Chief Complaint: Trauma-Non Activation Stated Complaint: FALL Nursing Triage Note: PT TO ROOM 10 [facility]. CO HEAD AND NECK PAIN. C-COLLAR IN PLACE. PT REPORTS SHE FELL OUT OF BED AND HIT HER HEAD ON A MARBLE TABLE. DENIES LOC. ABRASION NOTED TO LT KNEE AND LT ELBOW. A&OX4. Source: patient, RN/MD Exam Limitations: no limitations History of Present Illness Date Seen by Provider: Sep 01, 2017 Time Seen by Provider: 14:20 Initial Comments 77-year-old female presents after she fell out of bed striking her head on a marble table. Patient denies loss of consciousness. She is complaining of nonradiating neck pain. She denies. Seizures weakness in extremities. Patient sustained an associated contusion to the left shoulder. Patient denies trauma to the chest abdomen or pelvis. She had no lower extremity injury. Allergies and Home Medications Allergies Coded Allergies: No Known Drug Allergies (Unverified , 06/10/15) Home Medications Bisacodyl 5 Mg Tablet.dr, 5 MG PO QID PRN for CONSTIPATION-1ST LINE, (Reported) Cefdinir 300 Mg Capsule, 300 MG PO BID, (Reported) START DATE 01-18-17 Clopidogrel Bisulfate 75 Mg Tablet, 75 MG PO DAILY, (Reported) Ezetimibe 10 Mg Tablet, 10 MG PO DAILY, (Reported) Fluconazole 200 Mg Tablet, 200 MG PO DAILY Prescribed by: BETTY MAZARIEGOS on 07/28/172032 Fluticasone/Vilanterol 1 Each Blst.w.dev, 1 PUFF IH DAILY, (Reported) Hydrocodone/Acetaminophen 1 Each Tablet, 1 TAB PO Q4H PRN for PAIN-MODERATE, ( Reported) Hyoscyamine Sulfate 0.125 Mg Tab.subl, 1-2 TAB SL Q4H Prescribed by: BETTY MAZARIEGOS on 07/28/172032 Levothyroxine Sodium 112 Mcg Tablet, 112 MCG PO DAILY, (Reported) Lorazepam 1 Mg Tablet, 1 MG PO BID, (Reported) Menthol 118 Ml Gel..ml., TP BID, (Reported) APPLY TO RIGHT LEG FROM KNEE TO LOWER LEG Metoprolol Succinate 50 Mg Tab.er.24h, 50 MG PO DAILY, (Reported) NOTIFY MD IF SBP LESS THAN 90 OR GREATHER THAN 200 OR PULSE LESS THAN 50 Miconazole/Skin Cleanser No.17 1 Each Kit, 1 EACH VG UD Prescribed by: BETTY MAZARIEGOS on 07/28/172032 Mirtazapine 15 Mg Tablet, 15 MG PO HS, (Reported) Nitrofurantoin Monohyd/M-Cryst 100 Mg Capsule, 100 MG PO BID Prescribed by: BETTY MAZARIEGOS on 07/28/172032 Nitroglycerin 0.4 Mg Tab.subl, 0.4 MG SL UD PRN for CHEST PAIN, (Reported) Nystatin 1 Each Powder.ea., TOP Q12H, (Reported) CLEAN UNDER LEFT BREAST PAT DRY AND CLEAN BILATERAL GROIN AND PAT DRY THEN APPLY NYSTATIN POWDER UNTIL HEALED Ondansetron HCl 4 Mg Tab, 4 MG PO Q4H PRN for NAUSEA/VOMITING-1ST LINE, ( Reported) Pantoprazole Sodium 40 Mg Tablet.dr, 40 MG PO DAILY, (Reported) Phenazopyridine HCl 200 Mg Tablet, 200 MG PO Q8H PRN for URINARY PAIN, (Reported ) Phenazopyridine HCl 200 Mg Tablet, 1 TAB PO TID Prescribed by: BETTY MAZARIEGOS on 07/28/172032 Pregabalin 50 Mg Capsule, 150 MG PO Q12H, (Reported) Ropinirole HCl 4 Mg Tablet, 4 MG PO HS, (Reported) Sulfamethoxazole/Trimethoprim 1 Each Tablet, 1 TAB PO BID, (Reported) START DATE 01-18-17 Sulfamethoxazole/Trimethoprim 1 Each Tablet, 1 EACH PO BID, (Reported) Temazepam 15 Mg Capsule, 15 MG PO HS, (Reported) Patient Home Medication List Home Medication List Reviewed: Yes Review of Systems Constitutional: No chills, No fever Eyes: Denies Blurred Vision Ears, Nose, Mouth, Throat: denies ear pain, denies ear discharge Respiratory: No cough, No short of breath Cardiovascular: No chest pain Gastrointestinal: No abdominal pain, No nausea, No vomiting Genitourinary: No decreased output, No dysuria : No Musculoskeletal: see HPI, joint pain (left shoulder and elbow.) Skin: other (laceration of the occiput.) Psychiatric/Neurological: No Symptoms Reported Past Kkftgxs-Guzbhn-Quykyi Hx Past Med/Social Hx: Reviewed Nursing Past Med/Soc Hx Patient Social History Alcohol Use: Denies Use Recreational Drug Use: No Smoking Status: Former Smoker Type Used: Cigarettes Former Smoker, Quit: Mar 26, 1996 2nd Hand Smoke Exposure: Yes Recent Foreign Travel: No Contact w/Someone Who Travel: No Recent Infectious Disease Expo: No Recent Hopitalizations: No Physical Abuse: No Sexual Abuse: No Immunizations Up To Date Tetanus Booster (TDap): Unknown PED Vaccines UTD: No Date of Pneumonia Vaccine: Apr 22, 2009 Date of Influenza Vaccine: Nov 20, 2016 Seasonal Allergies Seasonal Allergies: Yes Past Medical History Surgeries: Yes (HERNIA REPAIR) Abdominal, Appendectomy, Bladder Surgery, Bowel Surgery, Cardiac, Coronary Stent , Hysterectomy, Oophorectomy, Orthopedic, Tonsillectomy Respiratory: Yes Pulmonary Embolism, Sleep Apnea, COPD Currently Using CPAP: No Currently Using BIPAP: No Cardiac: Yes (STENTS X2) Chronic Edema/Swelling, Coronary Artery Disease, Deep Vein Thrombosis, Heart Attack, High Cholesterol, Hypertension Neurological: Yes (COGNITIVE DEFICIT) Vertigo 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, 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 Genitourinary: Yes (INCONTINENCE) Kidney Infection, Bladder Infection, UTI-Chronic Gastrointestinal: Yes Abdominal Hernia, Gastroesophageal Reflux, Diverticulosis, Esophagitis Musculoskeletal: Yes Osteoporosis, Arthritis, Chronic Back Pain, Fractures Endocrine: Yes (HYPOTHYROID) Hypothyroidsim HEENT: Yes (FULL DENTURES) Cataract, Dysphagia Loss of Vision: Denies Hearing Impairment: Denies Cancer: No Psychosocial: Yes (EXTENSIVE HISTORY OF RX ABUSE/OVERDOSES--OPIATES AND BENZO' S ) Anxiety, Depression Nursing Suicide Risk Score: 0 Integumentary: No Blood Disorders: Yes (anemia post op epideral site,bld transfusion) Adverse Reaction/Blood Tranf: No Family Medical History Family history: Hypertension G8 BROTHER Myocardial infarction 19 MOTHER G8 BROTHER Physical Exam Vital Signs Vital Signs - First Documented 09/01/17 14:16 Temp 97.6 Pulse 68 Resp 17 B/P (MAP) 141/78 (99) Pulse Ox 94 O2 Delivery Room Air O2 Flow Rate 0 Capillary Refill : Less Than 3 Seconds Height, Weight, BMI Height: 5'1.00" Weight: 159lbs. 8.0oz. [id number]; 28.1 BMI Method:Stated General Appearance: WD/WN, mild distress HEENT: PERRL/EOMI, normal ENT inspection Neck: non-tender, supple Cardiovascular: regular rate, rhythm Respiratory: chest non-tender Gastrointestinal: normal bowel sounds, non tender Extremities: normal range of motion, non-tender Neurologic/Psychiatric: no motor/sensory deficits, alert, normal mood/affect, oriented x 3 Skin: normal color, warm/dry, other (there was a punctate laceration to the left occipital area that did not require repair.) Progress/Results/Core Measures Results/Orders My Orders Orders - VALARIE WHITAKER MD Fentanyl Injection (Sublimaze Injection (09/01/17 14:45) Elbow, Left, 3 Views (09/01/17 14:42) Shoulder, Left, 3 Views (09/01/17 14:42) Ct Head/Cervical Spine Wo (09/01/17 14:42) Medications Given in ED Current Medications Medications Dose Ordered Sig/Preez Route Start Time Stop Time Status Last Admin Dose Admin Fentanyl Citrate 50 mcg ONCE ONCE IM 09/01/17 14:45 09/01/17 14:46 DC 09/01/17 14:50 50 MCG Vital Signs/I&O 09/01/17 09/01/17 14:16 14:17 Temp 97.6 97.6 Pulse 68 68 Resp 17 17 B/P (MAP) 141/78 (99) 141/78 (99) Pulse Ox 94 94 O2 Delivery Room Air Room Air O2 Flow Rate 0 Blood Pressure Mean: 99 Progress Progress Note : Time: 16:[address] of the head and neck failed to demonstrate evidence of fracture. Similarly the left shoulder and elbow radiographs were unremarkable for acute pathology. The patient's dying laceration left occiput was cleaned and dressed. Patient received 50 g of fentanyl IM with good relief of her discomfort. Departure Impression Primary Impression: Fall Qualified Codes: W19.XXXA - Unspecified fall, initial encounter Additional Impression: Contusion Qualified Codes: S00.03XA - Contusion of scalp, initial encounter Disposition: HOME, SELF-CARE Condition: Improved Departure-Patient Inst. Decision time for Depature: 16:11 Referrals: TORIBIO BREWER DO (PCP/Family) Primary Care Physician Patient Instructions: Contusion (DC) Add. Discharge Instructions: Tylenol or ibuprofen for pain. Follow-up with Dr. Brewer for reevaluation Monday. Return if any problems or questions. All discharge instructions reviewed with patient and/or family. Voiced understanding. VALARIE WHITAKER MD Sep 01, 2017 15:22
--- NOTE | 2017-09-01 15:34 | Diagnostic Imaging Report ---
PROCEDURE: CT head and CT cervical spine without contrast. TECHNIQUE: Multiple contiguous axial images were obtained through the brain and cervical spine without the use of intravenous contrast. Sagittal and coronal reformations through the cervical spine were then performed. INDICATION: Fall and posterior head pain. FINDINGS: CT HEAD: Comparison is made with prior CT head from 01/20/2017. There appears to be some mild soft tissue swelling in the left posterior parietal scalp. Ventricles and sulci are stable. No sulcal effacement is identified. There is no midline shift. No acute intra-axial or extra-axial hemorrhage is seen. Moderate periventricular white matter changes are noted consistent with senescent change. The cisterns are patent. The visualized paranasal sinuses are clear. IMPRESSION: Mild left posterior parietal scalp swelling. No acute intracranial process is detected. CT CERVICAL SPINE: Alignment is normal. No fracture or subluxation is seen. The prevertebral tissues are normal. Odontoid is intact. IMPRESSION: No acute bony abnormality is detected. Dictated by: Dictated on workstation # [id number]
--- NOTE | 2017-09-01 15:45 | Diagnostic Imaging Report ---
EXAMINATION: Left elbow, 3 views. COMPARISON: None. HISTORY: 77-year-old female, left elbow pain after fall. FINDINGS: There is no elbow joint effusion. There is no identified fracture or dislocation. There is no radiopaque foreign body. IMPRESSION: Unremarkable radiographs of the left elbow. Dictated by: Dictated on workstation # [id number]
--- NOTE | 2017-09-01 15:47 | Diagnostic Imaging Report ---
EXAMINATION: Left shoulder radiographs, three views. COMPARISON: August 02, 2008. HISTORY: 77-year-old female, left shoulder pain after fall. FINDINGS: The acromioclavicular joint is normally aligned. There are moderate acromioclavicular degenerative changes with osteophytes projecting roughly 2 mm below the joint margin. The humeral head is normally positioned relative to the glenoid. The glenohumeral joint is not significantly narrowed. There is no prominent glenohumeral osteophyte formation. There is no identified acute fracture. IMPRESSION: 1. No acute bony abnormality of the left shoulder. 2. Moderate acromioclavicular degenerative changes with 2 mm undersurface osteophytes. Dictated by: Dictated on workstation # [id number]
[2017-09-01 16:49] VITALS: BP 141/78
== END 2017-09-01 17:01 | disposition home or self-care (01) ==
LOC: EDUNIT# 14:16 → ER 14:17
DX: S10.93XA Contusion of unspecified part of neck, initial encounter (principal); G47.30 Sleep apnea, unspecified; J44.9 Chronic obstructive pulmonary disease, unspecified; I25.10 Atherosclerotic heart disease of native coronary artery without angina pectoris; E78.00 Pure hypercholesterolemia, unspecified; I10 Essential (primary) hypertension; I25.2 Old myocardial infarction; K21.9 Gastro-esophageal reflux disease without esophagitis; E03.9 Hypothyroidism, unspecified; F41.9 Anxiety disorder, unspecified; F32.9 Major depressive disorder, single episode, unspecified; M81.0 Age-related osteoporosis without current pathological fracture; Z87.19 Personal history of other diseases of the digestive system; Z87.440 Personal history of urinary (tract) infections; Z79.51 Long term (current) use of inhaled steroids; Z82.49 Family history of ischemic heart disease and other diseases of the circulatory system; Z79.02 Long term (current) use of antithrombotics/antiplatelets; Z87.891 Personal history of nicotine dependence; Z87.448 Personal history of other diseases of urinary system; Z90.89 Acquired absence of other organs; Z95.5 Presence of coronary angioplasty implant and graft; Z90.710 Acquired absence of both cervix and uterus; Z86.718 Personal history of other venous thrombosis and embolism; W06.XXXA Fall from bed, initial encounter; W22.03XA Walked into furniture, initial encounter
CPT/HCPCS: 70450; 72125; 73030; 73080; 96372

== ENCOUNTER → 2017-09-18 | Outpatient (CLI) | payer MEDICARE, MEDICAID ==
--- NOTE | 2017-09-18 14:44 | Diagnostic Imaging Report ---
PROCEDURE: MRI lumbar spine. TECHNIQUE: A multiplanar/multisequence MRI of the lumbar spine was performed without contrast. INDICATION: Recent falls, low back pain, left leg pain with burning sensation. Patient has prior history of multiple compression fractures treated with kyphoplasty. COMPARISON: 03/25/2016. FINDINGS: There is right convexity scoliotic curvature to the lumbar spine. The lordotic curvature is within normal limits. There is minimal anterolisthesis of L3 on L4, similar to the prior study. There are treated compression fractures with kyphoplasty at the T10 and T12 levels as well as the L5 level. There is a chronic compression fracture deformity at T11 which demonstrates anterior and central stature loss, similar to the prior study. The lumbar vertebrae appear to be stable and demonstrates stable stature and marrow signal intensity without evidence of a new acute compression fracture. There is multilevel degenerative disc disease with variable disc space narrowing and desiccation. T12-L1: Broad-based disc/osteophyte complex does flatten the ventral thecal sac and produce mild narrowing of the canal. The neural foramina are patent. L1-2: There is disc/osteophyte complex asymmetric to the right and narrowing the right neural foramen. The left neural foramen and central canal are patent. L2-3: The central canal is widely patent. There does appear to be bilateral neuroforaminal narrowing. L3-4: There is ligamentous thickening, particularly on the left, and facet changes. The central canal remains patent. There is left lateral recess stenosis as well as moderate left neuroforaminal stenosis. L4-5: Flattening of the ventral thecal sac is seen. There is bilateral lateral recess stenosis. There is also significant left neuroforaminal stenosis. L5-S1: The central canal is widely patent. Mild left neuroforaminal narrowing is seen. The paraspinous tissues are unremarkable. IMPRESSION: 1. Chronic compression fractures at T10, T12, and L5 treated with kyphoplasty. 2. No acute compression fracture is detected. 3. There is lumbar spondylosis and scoliosis with multilevel central canal, lateral recess, and neuroforaminal stenosis described level by level above. Dictated by: Dictated on workstation # [id number]
== END ==
LOC: RAD 13:18
PROVIDERS: ATTEND Internal Medicine
DX: S22.079A Unspecified fracture of T9-T10 vertebra, initial encounter for closed fracture (principal); S22.089A Unspecified fracture of T11-T12 vertebra, initial encounter for closed fracture; S32.059A Unspecified fracture of fifth lumbar vertebra, initial encounter for closed fracture; M47.26 Other spondylosis with radiculopathy, lumbar region; M99.73 Connective tissue and disc stenosis of intervertebral foramina of lumbar region; M41.86 Other forms of scoliosis, lumbar region; M51.16 Intervertebral disc disorders with radiculopathy, lumbar region
CPT/HCPCS: 72148

== ENCOUNTER 2017-11-01 15:49 | Outpatient (CLI) | payer MEDICARE, MEDICAID ==
[~2017-11-01] VITALS: Ht 154.9 cm; Wt 72.1 kg
[~2017-11-01 15:49] MED LIST changes: -OXYC-197 PO; +OXYC1TAB87 PO; -ROPI4TAB3 PO; +ROPI4TAB5 PO
[2017-11-01] MEDS ORDERED: ALBU18HF2 IH (15:59)
[2017-11-01] MEDS ORDERED: PREG150C PO (15:59)
[2017-11-01] MEDS ORDERED: ROPI1TAB2 PO (15:59)
[2017-11-01] MEDS ORDERED: OMEP40CA36 PO (15:59)
[2017-11-01] MEDS ORDERED: DULO60CA58 PO (15:59)
[2017-11-01] MEDS ORDERED: TEMA30CA PO (15:59)
[2017-11-01] MEDS ORDERED: ASPI-586 PO (16:00)
== END 2017-11-01 16:01 | disposition home or self-care (01) ==
LOC: PREOP 15:49
PROVIDERS: ATTEND Surgery
DX: Z01.818 Encounter for other preprocedural examination (principal)

== ENCOUNTER 2017-11-03 10:38 | Emergency (ER) | payer MEDICARE, MEDICAID ==
[~2017-11-03] VITALS: Ht 167.6 cm; Wt 81.6 kg
[~2017-11-03 10:38] MED LIST changes: +ALBU18HF2 IH; +ASPI-586 PO; +PREG150C PO
[2017-11-03 10:40] VITALS: BP 148/82
--- NOTE | 2017-11-03 11:57 | ED Headache ---
General Chief Complaint: Head/Cervical Problems Stated Complaint: NOT FEELING WELL Source: patient, EMS, caregiver Exam Limitations: no limitations History of Present Illness Date Seen by Provider: Nov 03, 2017 Time Seen by Provider: 11:00 Initial Comments Patient is a 77-year-old female who presents to the emergency room by [facility] for reports of nausea, headache, for the past week. EMS reports that they were told by her caregiver that she has not been taking her medications as prescribed. She either takes too many or none at all. Patient is alert and oriented on arrival to the emergency room. Timing/Duration: 1 week Associated Symptoms: nausea/vomiting Allergies and Home Medications Allergies Coded Allergies: No Known Drug Allergies (Unverified , 06/10/15) Home Medications Albuterol Sulfate 18 Gm Hfa.aer.ad, 2 PUFF IH Q4H PRN for WHEEZING, (Reported) Aspirin 81 Mg Tablet.dr, 81 MG PO DAILY, (Reported) Clopidogrel Bisulfate 75 Mg Tablet, 75 MG PO DAILY, (Reported) Duloxetine HCl 60 Mg Capsule.dr, 60 MG PO DAILY, (Reported) Levothyroxine Sodium 112 Mcg Tablet, 112 MCG PO DAILY, (Reported) Lorazepam 1 Mg Tablet, 1 MG PO TID, (Reported) Menthol 118 Ml Gel..ml., TP BID, (Reported) APPLY TO RIGHT LEG FROM KNEE TO LOWER LEG Metoprolol Succinate 50 Mg Tab.er.24h, 50 MG PO DAILY, (Reported) NOTIFY MD IF SBP LESS THAN 90 OR GREATHER THAN 200 OR PULSE LESS THAN 50 Nitroglycerin 0.4 Mg Tab.subl, 0.4 MG SL UD PRN for CHEST PAIN, (Reported) Omeprazole 40 Mg Capsule.dr, 40 MG PO BID, (Reported) Pantoprazole Sodium 40 Mg Tablet.dr, 40 MG PO DAILY, (Reported) Pregabalin 150 Mg Capsule, 150 MG PO Q12H, (Reported) Ropinirole HCl 1 Mg Tablet, 2 MG PO HS, (Reported) Sulfamethoxazole/Trimethoprim 1 Each Tablet, 1 EACH PO BID Prescribed by: DEZ PISANO on 11/03/17 1325 Temazepam 30 Mg Capsule, 30 MG PO HS, (Reported) Patient Home Medication List Home Medication List Reviewed: Yes Review of Systems Review of Systems Constitutional: see HPI; No chills, No fever Gastrointestinal: see HPI, nausea Psychiatric/Neurological: See HPI, Headache All Other Systems Reviewed Negative Unless Noted: Yes Past Lnbkvdn-Koljnw-Athezh Hx Past Med/Social Hx: Reviewed Nursing Past Med/Soc Hx Patient Social History Type Used: Cigarettes Former Smoker, Quit: Mar 26, 1996 2nd Hand Smoke Exposure: Yes Recent Hopitalizations: No Immunizations Up To Date Tetanus Booster (TDap): Unknown PED Vaccines UTD: No Date of Pneumonia Vaccine: Apr 22, 2009 Date of Influenza Vaccine: Nov 20, 2016 Seasonal Allergies Seasonal Allergies: Yes Past Medical History Surgeries: Yes (HERNIA REPAIR) Abdominal, Appendectomy, Bladder Surgery, Bowel Surgery, Cardiac, Coronary Stent , Hysterectomy, Oophorectomy, Orthopedic, Tonsillectomy Respiratory: Yes Pulmonary Embolism, COPD Currently Using CPAP: No Currently Using BIPAP: No Cardiac: Yes (STENTS X2) Chronic Edema/Swelling, Coronary Artery Disease, Deep Vein Thrombosis, Heart Attack, High Cholesterol, Hypertension Neurological: Yes (COGNITIVE DEFICIT) Vertigo 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, 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 Genitourinary: Yes (INCONTINENCE) Kidney Infection, Bladder Infection, UTI-Chronic Gastrointestinal: Yes Abdominal Hernia, Gastroesophageal Reflux, Diverticulosis, Esophagitis Musculoskeletal: Yes Osteoporosis, Arthritis, Chronic Back Pain, Fractures Endocrine: Yes (HYPOTHYROID) Hypothyroidsim HEENT: Yes (FULL DENTURES) Cataract, Dysphagia Loss of Vision: Denies Hearing Impairment: Denies Cancer: No Psychosocial: Yes (EXTENSIVE HISTORY OF RX ABUSE/OVERDOSES--OPIATES AND BENZO' S ) Anxiety, Depression Integumentary: No Blood Disorders: Yes (anemia post op epideral site,bld transfusion) Adverse Reaction/Blood Tranf: No Family Medical History Reviewed Nursing Family Hx Family history: Hypertension G8 BROTHER Myocardial infarction 19 MOTHER G8 BROTHER Physical Exam Vital Signs Vital Signs - First Documented 11/03/17 10:40 Temp 98.0 Pulse 64 Resp 20 B/P (MAP) 148/82 (104) Pulse Ox 96 O2 Delivery Room Air Capillary Refill : Height, Weight, BMI Height: 5'1.00" Weight: 159lbs. 0.0oz. 72.364258ix; 30.0 BMI Method:Stated General Appearance: WD/WN, no apparent distress HEENT: PERRL/EOMI, normal ENT inspection, TMs normal, pharynx normal Cardiovascular: normal peripheral pulses, regular rate, rhythm, no edema, no gallop, no JVD, no murmur Respiratory: chest non-tender, lungs clear, normal breath sounds, no respiratory distress, no accessory muscle use Gastrointestinal: normal bowel sounds, non tender, soft, no organomegaly, no pulsatile mass Psychiatric: alert, oriented x 3 Crainal Nerves: normal hearing, normal speech, PERRL Coordination/Gait: normal finger to nose, normal gait Skin: normal color, warm/dry Progress/Results/Core Measures Results/Orders Lab Results Laboratory Tests Test 11/03/17 10:38 11/03/17 11:20 11/03/17 11:40 11/03/17 12:45 Range/Units Lab Scanned Report Referred Lab Report [id number] Urine Color YELLOW Urine Clarity CLEAR Urine pH 7 5-9 Urine Specific [place] 1.010 L 1.016-1.022 Urine Protein NEGATIVE NEGATIVE Urine Glucose (UA) NEGATIVE NEGATIVE Urine Ketones NEGATIVE NEGATIVE Urine Nitrite POSITIVE H NEGATIVE Urine Bilirubin NEGATIVE NEGATIVE Urine Urobilinogen NORMAL NORMAL MG/DL Urine Leukocyte Esterase 1+ H NEGATIVE Urine RBC (Auto) NEGATIVE NEGATIVE Urine RBC NONE /HPF Urine WBC 2-5 /HPF Urine Squamous Epithelial Cells NONE /HPF Urine Crystals NONE /LPF Urine Bacteria LARGE H /HPF Urine Casts NONE /LPF Urine Mucus NEGATIVE /LPF Urine Culture Indicated YES Urine Opiates Screen NEGATIVE NEGATIVE Urine Oxycodone Screen NEGATIVE NEGATIVE Urine Methadone Screen NEGATIVE NEGATIVE Urine Propoxyphene Screen NEGATIVE NEGATIVE Urine Barbiturates Screen NEGATIVE NEGATIVE Ur Tricyclic Antidepressants Screen NEGATIVE NEGATIVE Urine Phencyclidine Screen NEGATIVE NEGATIVE Urine Amphetamines Screen POSITIVE H NEGATIVE Urine Methamphetamines Screen NEGATIVE NEGATIVE Urine Benzodiazepines Screen NEGATIVE NEGATIVE Urine Cocaine Screen NEGATIVE NEGATIVE Urine Cannabinoids Screen NEGATIVE NEGATIVE Sodium Level 131 L 135-145 MMOL/L Potassium Level 4.2 3.6-5.0 MMOL/L Chloride Level 104 98-107 MMOL/L Carbon Dioxide Level 19 L 21-32 MMOL/L Anion Gap 8 5-14 MMOL/L Blood Urea Nitrogen 11 7-18 MG/DL Creatinine 0.77 0.60-1.30 MG/DL Estimat Glomerular Filtration Rate > 60 BUN/Creatinine Ratio 14 Glucose Level 107 H 70-105 MG/DL Calcium Level 10.0 8.5-10.1 MG/DL Corrected Calcium 10.3 H 8.5-10.1 MG/DL Total Bilirubin 0.4 0.1-1.0 MG/DL Aspartate Amino Transf (AST/SGOT) 16 5-34 U/L Alanine Aminotransferase (ALT/SGPT) 8 0-55 U/L Alkaline Phosphatase 74 40-136 U/L Total Protein 5.9 L 6.4-8.2 GM/DL Albumin 3.6 3.2-4.5 GM/DL Amylase Level 27 25-125 U/L Lipase 8 8-78 U/L White Blood Count 5.1 4.3-11.0 10^3/uL Red Blood Count 3.99 L 4.35-5.85 10^6/uL Hemoglobin 10.5 L 11.5-16.0 G/DL Hematocrit 32 L 35-52 % Mean Corpuscular Volume 80 80-99 FL Mean Corpuscular Hemoglobin 26 25-34 PG Mean Corpuscular Hemoglobin Concent 33 32-36 G/DL Red Cell Distribution Width 15.9 H 10.0-14.5 % Platelet Count 270 130-400 10^3/uL Mean Platelet Volume 11.0 H 7.4-10.4 FL Neutrophils (%) (Auto) 51 42-75 % Lymphocytes (%) (Auto) 37 12-44 % Monocytes (%) (Auto) 8 0-12 % Eosinophils (%) (Auto) 3 0-10 % Basophils (%) (Auto) 1 0-10 % Neutrophils # (Auto) 2.6 1.8-7.8 X 10^3 Lymphocytes # (Auto) 1.9 1.0-4.0 X 10^3 Monocytes # (Auto) 0.4 0.0-1.0 X 10^3 Eosinophils # (Auto) 0.2 0.0-0.3 10^3/uL Basophils # (Auto) 0.0 0.0-0.1 10^3/uL Micro Results Microbiology 11/03/17 Urine Culture - Final, Complete Escherichia coli My Orders Orders - DEZ PISANO Comprehensive Metabolic Panel (11/03/17 11:12) Lipase (11/03/17 11:12) Amylase (11/03/17 11:12) Ua Culture If Indicated (11/03/17 11:12) Saline Lock/Iv-Start (11/03/17 11:12) Cbc With Automated Diff (11/03/17 11:12) Ekg Tracing (11/03/17 11:18) Ct Head Wo (11/03/17 11:18) Drug Screen Stat (Urine) (11/03/17 11:18) Urine Culture (11/03/17 11:20) Ketorolac Injection (Toradol Injection) (11/03/17 12:45) Ondansetron Injection (Zofran Injectio (11/03/17 12:45) Hydroxyzine Oral (Vistaril Capsule) (11/03/17 12:45) Ketorolac Injection (Toradol Injection) (11/03/17 12:53) Iv Push Stem Shaper Ed (11/03/17 ) Medications Given in ED Vital Signs/I&O 11/03/17 10:40 Temp 98.0 Pulse 64 Resp 20 B/P (MAP) 148/82 (104) Pulse Ox 96 O2 Delivery Room Air Progress Progress Note : Time: 12:35 Progress Note I have seen and evaluated the patient. I have informed her of her laboratory findings and the need for an antibiotic for the treatment of her urinary tract infection. Her pain and anxiety are improved after medication. She agrees with plans for discharge, follow up with primary care, and the adherence to her medications as they are prescribed. EKG : EKG Time: 11:27 Rate: 67 Rhythm: Normal Sinus Intervals: Normal ECG Comparisson: Unchanged ECG Impression: Normal Diagnostic Imaging Diagonstic Imaging: CT Plain Films/CT/US/NM/MRI: head Comments NAME: [facility] REC#: [id number] PT STATUS: REG ER : 1940 PHYSICIAN: DEZ PISANO ADMIT DATE: 11/03/17/ER Draft Date of Exam:11/03/17 CT HEAD WO CLINICAL INDICATION: Patient not feeling well. Patient has a headache. It has been this way for a week. EXAM: Axial CT scan of brain performed without IV contrast. COMPARISON: Head CT without IV contrast dated 09/01/2017. FINDINGS: There is skull streak artifact which obscures portions of brainstem and posterior fossa. There is no evidence of acute cerebral infarct, intracranial hemorrhage, or gross mass effect. Stable diffuse brain parenchymal volume loss. There is stable focal, patchy confluent areas of low-attenuation white matter changes seen throughout both cerebral hemispheres, likely representing chronic small vessel ischemic disease and leukoaraiosis. There is normal salvador-white matter distinction. There is no significant midline shift or herniation. There is no evidence of hydrocephalus. The basal cisterns are unremarkable. The skull, extracranial soft tissue, and orbits are unremarkable. The paranasal sinuses are unremarkable. There is a small amount of consolidation involving the right mastoid air cells. IMPRESSION: 1: Stable CT scan of the brain with no evidence of acute intracranial process. 2: There is moderate consolidation involving the right mastoid air cells. Dictated on workstation # [id number] Dict: 11/03/17 1157 Trans: 11/03/17 1206 [facility] [id number] Interpreted by: LYNDON SHERIFF MD Electronically signed by: Reviewed: Reviewed by Me Departure Impression Primary Impression: Urinary tract infection Additional Impression: Headache Disposition: 01 HOME, SELF-CARE Condition: Stable/Unchanged Departure-Patient Inst. Decision time for Depature: 12:44 Referrals: TORIBIO BREWER DO (PCP/Family) Primary Care Physician Patient Instructions: Headache, Adult (DC), Urinary Tract Infection, Adult (DC) Add. Discharge Instructions: Take medication as prescribed being sure that you do not take too many or not enough of your medications. Follow-up with Dr. Brewer within 1 week for recheck. Turn back to the emergency room for any worsening symptoms or concerns as needed. All discharge instructions reviewed with patient and/or family. Voiced understanding. Scripts Sulfamethoxazole/Trimethoprim (Bactrim Ds Tablet) 1 Each Tablet 1 EACH PO BID for 7 Days, #14 TAB Prov: DEZ PISANO 11/03/17 DEZ PISANO Nov 03, 2017 11:57
--- NOTE | 2017-11-03 12:06 | Diagnostic Imaging Report ---
CLINICAL INDICATION: Patient not feeling well. Patient has a headache. It has been this way for a week. EXAM: Axial CT scan of brain performed without IV contrast. COMPARISON: Head CT without IV contrast dated 09/01/2017. FINDINGS: There is skull streak artifact which obscures portions of brainstem and posterior fossa. There is no evidence of acute cerebral infarct, intracranial hemorrhage, or gross mass effect. Stable diffuse brain parenchymal volume loss. There is stable focal, patchy confluent areas of low-attenuation white matter changes seen throughout both cerebral hemispheres, likely representing chronic small vessel ischemic disease and leukoaraiosis. There is normal salvador-white matter distinction. There is no significant midline shift or herniation. There is no evidence of hydrocephalus. The basal cisterns are unremarkable. The skull, extracranial soft tissue, and orbits are unremarkable. The paranasal sinuses are unremarkable. There is a small amount of consolidation involving the right mastoid air cells. IMPRESSION: 1: Stable CT scan of the brain with no evidence of acute intracranial process. 2: There is moderate consolidation involving the right mastoid air cells. Dictated by: Dictated on workstation # [id number]
[2017-11-03 12:13] LABS: ALANINE AMINOTRANSFERASE 8 U/L (0-55); ALBUMIN 3.6 GM/DL (3.2-4.5); ALKALINE PHOSPHATASE 74 U/L (40-136); AMYLASE 27 U/L (25-125); BILIRUBIN,TOTAL 0.4 MG/DL (0.1-1.0); BUN/CREATININE RATIO 14; CARBON DIOXIDE 19 MMOL/L (21-32); CHLORIDE 104 MMOL/L (98-107); CREATININE SERUM 0.77 MG/DL (0.60-1.30); GFR ESTIMATED > 60; GLUCOSE 107 MG/DL (70-105); LIPASE 8 U/L (8-78); POTASSIUM 4.2 MMOL/L (3.6-5.0); SODIUM 131 MMOL/L (135-145); TOTAL PROTEIN 5.9 GM/DL (6.4-8.2)
[2017-11-03 12:26] LABS: BILIRUBIN,URINE NEGATIVE (NEGATIVE); CLARITY,URINE CLEAR; COLOR,URINE YELLOW; GLUCOSE, URINE (UA) NEGATIVE (NEGATIVE); KETONES,URINE NEGATIVE (NEGATIVE); LEUKOCYTE ESTERASE ,URINE 1+ (NEGATIVE); NITRITE,URINE POSITIVE (NEGATIVE); PH,URINE 7 (5-9); PROTEIN,URINE NEGATIVE (NEGATIVE); UROBILINOGEN,URINE NORMAL (NORMAL)
[2017-11-03 12:33] LABS: BACTERIA,URINE LARGE /HPF
[2017-11-03 12:37] LABS: AMPHETAMINE SCREEN, URINE POSITIVE (NEGATIVE); BARBITURATE SCREEN URINE NEGATIVE (NEGATIVE); BENZODIAZEPINES SCREEN URINE NEGATIVE (NEGATIVE); CANNABINOID SCREEN, URINE NEGATIVE (NEGATIVE); COCAINE SCREEN URINE NEGATIVE (NEGATIVE); METHADONE STAT NEGATIVE (NEGATIVE); METHAMPHETAMINE SCREEN URINE S NEGATIVE (NEGATIVE); OPIATE SCREEN URINE NEGATIVE (NEGATIVE); OXYCODONE STAT NEGATIVE (NEGATIVE); PROPOXYPHENE STAT NEGATIVE (NEGATIVE); TRICYCLIC ANTIDEPRESSANTS SCRE NEGATIVE (NEGATIVE)
[2017-11-03] MEDS ORDERED: KETOROLAC 15 MG/ML VIAL IVP ONE (12:45)
[2017-11-03] MEDS ORDERED: hydrOXYzine (VISTARIL) 25 MG CAP PO ONE (12:45)
[2017-11-03] MEDS ORDERED: ONDANSETRON 4 MG/2 ML (SDV) Z0FRAN IVP ONE (12:45)
[2017-11-03 12:51] LABS: BASOPHILS % (AUTO) 1 % (0-10); EOSINOPHILS # (AUTO) 0.2 10^3/uL (0.0-0.3); EOSINOPHILS % (AUTO) 3 % (0-10); HEMATOCRIT 32 % (35-52); HEMOGLOBIN 10.5 G/DL (11.5-16.0); LYMPHOCYTES # (AUTO) 1.9 X 10^3 (1.0-4.0); LYMPHOCYTES % (AUTO) 37 % (12-44); MEAN CORPUSCULAR HEMOGLOBIN 26 PG (25-34); MEAN CORPUSCULAR HGB CONC 33 G/DL (32-36); MEAN CORPUSCULAR VOLUME 80 FL (80-99); MONOCYTES # (AUTO) 0.4 X 10^3 (0.0-1.0); MONOCYTES % (AUTO) 8 % (0-12); NEUTROPHILS # (AUTO) 2.6 X 10^3 (1.8-7.8); NEUTROPHILS % (AUTO) 51 % (42-75); PLATELET COUNT 270 10^3/uL (130-400); RED BLOOD COUNT 3.99 10^6/uL (4.35-5.85); RED CELL DISTRIBUTION WIDTH 15.9 % (10.0-14.5); WHITE BLOOD COUNT 5.1 10^3/uL (4.3-11.0)
[2017-11-03] MEDS ORDERED: KETOROLAC 30 MG/ML VIAL ONE (12:53)
[2017-11-03] MEDS ORDERED: SULF1TAB35 PO (13:25)
== END 2017-11-03 13:40 | disposition home or self-care (01) ==
LOC: EDUNIT# 10:38 → ER 10:38
DX: N39.0 Urinary tract infection, site not specified (principal); R51 Headache; J44.9 Chronic obstructive pulmonary disease, unspecified; I25.10 Atherosclerotic heart disease of native coronary artery without angina pectoris; I10 Essential (primary) hypertension; E78.00 Pure hypercholesterolemia, unspecified; I25.2 Old myocardial infarction; K21.9 Gastro-esophageal reflux disease without esophagitis; M81.0 Age-related osteoporosis without current pathological fracture; E03.9 Hypothyroidism, unspecified; F41.9 Anxiety disorder, unspecified; F32.9 Major depressive disorder, single episode, unspecified; Z82.49 Family history of ischemic heart disease and other diseases of the circulatory system; Z79.82 Long term (current) use of aspirin; Z79.02 Long term (current) use of antithrombotics/antiplatelets; Z87.440 Personal history of urinary (tract) infections; Z87.19 Personal history of other diseases of the digestive system; Z87.891 Personal history of nicotine dependence; Z90.89 Acquired absence of other organs; Z95.5 Presence of coronary angioplasty implant and graft; Z90.710 Acquired absence of both cervix and uterus; Z86.718 Personal history of other venous thrombosis and embolism
CPT/HCPCS: 36415; 70450; 80053; 80306; 81000; 82150; 83690; 85025; 87077; 87088; 87186; 93005; 96374; 96375

== ENCOUNTER 2017-11-28 15:20 | Outpatient (CLI) | payer MEDICARE, MEDICAID ==
[~2017-11-28] VITALS: Ht 167.6 cm; Wt 81.6 kg
== END 2017-11-28 15:21 | disposition home or self-care (01) ==
LOC: PREOP 15:20
PROVIDERS: ATTEND Surgery
DX: Z01.818 Encounter for other preprocedural examination (principal)

== ENCOUNTER 2017-12-04 10:04 | Day surgery (SDC) | payer MEDICARE, MEDICAID ==
[~2017-12-04] VITALS: Ht 167.6 cm; Wt 81.6 kg
[2017-12-04 10:30] VITALS: BP 161/84
[2017-12-04] MEDS ORDERED: NS IV 500 ML 500 ML ONE (10:36)
[2017-12-04] MEDS ORDERED: NS IV 500 ML 500 ML IV PRN (11:04)
[2017-12-04] MEDS ORDERED: HURRICAINE EXT TUBE (BENZOCAINE) XX PRN (11:15)
[2017-12-04] MEDS ORDERED: MIDAZOLAM 2 MG/2 ML (VERSED) VIAL IVP ONE (11:15)
[2017-12-04] MEDS ORDERED: fentaNYL INJECTION 100 MCG/2 ML AMP IVP ONE (11:15)
[2017-12-04] MEDS ORDERED: fentaNYL INJECTION 100 MCG/2 ML AMP ONE (12:07)
[2017-12-04] MEDS ORDERED: HURRICAINE EXT TUBE (BENZOCAINE) ONE (12:07)
[2017-12-04] MEDS ORDERED: MIDAZOLAM 2 MG/2 ML (VERSED) VIAL ONE ×3 (12:07)
[2017-12-04] MEDS ORDERED: ONDANSETRON 4 MG/2 ML (SDV) Z0FRAN ONE (13:28)
--- NOTE | 2017-12-04 13:31 | Conscious Sedation/ASA ---
Conscious Sedation Pre-Proced Time 11:55 ASA Score 2 For ASA 3 and 4: Consider anesthesia and medical clearance. Also, for patients with a history of failed moderate sedation consider anesthesia. Airway Lungs Heart ASA score ASA 1: a normal healthy patient ASA 2: a patient with a mild systemic disease (mid diabetes, controlled hypertension, obesity ASA 3: a patient with a severe systemic disease that limits activity (angina , COPD, prior Myocardial infarction) ASA 4: a patient with an incapacitating disease that is a constant threat to life (CHF, renal failure) ASA 5: a moribund patient not expected to survive 24 hrs. (ruptured aneurysm) ASA 6: a declared brain patient whose organs are being harvested. For emergent operations, add the letter E after the classification Mallampati Classification Grade 2 Sedation Plan Discussed options with patient/fam The patient is an appropriate candidate to undergo the planned procedure, sedation, and anesthesia. The patient immediately re-assessed prior to indication. VANESSA DANIELSON MD Dec 04, 2017 13:31
--- NOTE | 2017-12-04 13:31 | History & Physicial ---
History of Present Illness History of Present Illness Reason for visit/HPI to undergo an upper endoscopy to investigate progressive dysphagia. Date of Admission 12/04/17 Date Seen by a Provider: Dec 04, 2017 Time Seen by a Provider: 11:05 I consulted on this patient on 12/04/17 13:29 Attending Physician Vanessa Danielson MD Admitting Physician Eliud Brewer DO Consult Allergies and Home Medications Allergies Coded Allergies: No Known Drug Allergies (Unverified , 06/10/15) Home Medications Albuterol Sulfate 18 Gm Hfa.aer.ad, 2 PUFF IH Q4H PRN for WHEEZING, (Reported) Aspirin 81 Mg Tablet.dr, 81 MG PO DAILY, (Reported) Clopidogrel Bisulfate 75 Mg Tablet, 75 MG PO DAILY, (Reported) Duloxetine HCl 60 Mg Capsule.dr, 60 MG PO DAILY, (Reported) Levothyroxine Sodium 112 Mcg Tablet, 112 MCG PO DAILY, (Reported) Lorazepam 1 Mg Tablet, 1 MG PO TID, (Reported) Menthol 118 Ml Gel..ml., TP BID, (Reported) APPLY TO RIGHT LEG FROM KNEE TO LOWER LEG Metoprolol Succinate 50 Mg Tab.er.24h, 50 MG PO DAILY, (Reported) NOTIFY MD IF SBP LESS THAN 90 OR GREATHER THAN 200 OR PULSE LESS THAN 50 Nitroglycerin 0.4 Mg Tab.subl, 0.4 MG SL UD PRN for CHEST PAIN, (Reported) Omeprazole 40 Mg Capsule.dr, 40 MG PO BID, (Reported) Pantoprazole Sodium 40 Mg Tablet.dr, 40 MG PO DAILY, (Reported) Pregabalin 150 Mg Capsule, 150 MG PO Q12H, (Reported) Ropinirole HCl 1 Mg Tablet, 2 MG PO HS, (Reported) Temazepam 30 Mg Capsule, 30 MG PO HS, (Reported) Patient Home Medication List Home Medication List Reviewed: Yes Past Fexmftr-Pttzam-Eumutb Hx Patient Social History Marrital Status: Employed/Student: retired Alcohol Use: Denies Use Recreational Drug Use: No Smoking Status: Former Smoker Former Smoker, Quit: Mar 26, 1996 Type Used: Cigarettes 2nd Hand Smoke Exposure: Yes Recent Foreign Travel: No Contact w/other who traveled: No Recent Hopitalizations: No Recent Infectious Disease Expo: No Immunizations Up To Date Tetanus Booster (TDap): Unknown Pediatric: No Date of Pneumonia Vaccine: Apr 22, 2009 Date of Influenza Vaccine: Nov 20, 2016 Seasonal Allergies Seasonal Allergies: Yes Surgeries Yes (HERNIA REPAIR) Abdominal, Appendectomy, Bladder Surgery, Bowel Surgery, Cardiac, Coronary Stent , Hysterectomy, Oophorectomy, Orthopedic, Tonsillectomy Respiratory Yes Asthma, COPD, Pneumonia Currently Using CPAP: No Currently Using BIPAP: No Cardiovascular Yes (STENTS X2) Chronic Edema/Swelling, Coronary Artery Disease, Deep Vein Thrombosis, Heart Attack, High Cholesterol, Hypertension Neurological Yes (COGNITIVE DEFICIT) Vertigo 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 System 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, 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 Genitourinary Yes (INCONTINENCE) Kidney Infection, Bladder Infection, UTI-Chronic Gastrointestinal Yes Abdominal Hernia, Gastroesophageal Reflux, Diverticulosis, Esophagitis Musculoskeletal Yes Osteoporosis, Arthritis, Chronic Back Pain, Fractures Endocrine History of Endocrine Disorders: Yes (HYPOTHYROID) Endocrine Disorders: Hypothyroidsim HEENT History of HEENT Disorders: Yes (FULL DENTURES) HEENT Disorders: Cataract, Dysphagia Loss of Vision: Denies Hearing Impairment: Denies Cancer No Psychosocial History of Psychiatric Problem: Yes (EXTENSIVE HISTORY OF RX ABUSE/OVERDOSES-- OPIATES AND BENZO'S ) Behavioral Health Disorders: Anxiety, Depression Integumentary History of Skin or Integumenta: No Blood Transfusions History of Blood Disorders: Yes (anemia post op epideral site,bld transfusion) Adverse Reaction to a Blood Tr: No Family Medical History Family Hx: Family history: Hypertension G8 BROTHER Myocardial infarction 19 MOTHER G8 BROTHER Review of Systems Constitutional: no symptoms reported EENTM: no symptoms reported Respiratory: no symptoms reported Cardiovascular: no symptoms reported Gastrointestinal: see HPI Musculoskeletal: no symptoms reported Skin: no symptoms reported Psychiatric/Neurological: Anxiety Physical Exam Vital Signs Vital Signs - First Documented 12/04/17 10:30 Temp 96.6 Pulse 64 Resp 18 B/P (MAP) 161/84 (109) Pulse Ox 93 Capillary Refill : Height, Weight, BMI Height: 5'6.00" Weight: 180lbs. 0.0oz. 81.155859zs; 29.1 BMI Method:Estimated General Appearance: Anxious Neck: Normal Inspection Cardiovascular: Regular Rate, Rhythm Gastrointestinal: Non Tender, Soft Extremity: Normal Inspection Neurologic/Psychiatric: Alert, Oriented x3 Skin: Warm/Dry Assessment/Plan Assessment and Plan lady with progressive dysphagia. For upper endoscopy. Admission Diagnosis Admission Status: Other (Outpt Proc) VANESSA DANIELSON MD Dec 04, 2017 13:31
--- NOTE | 2017-12-04 13:34 | Endo Procedure Record ---
Endo Procedure Report Date of Procedure Last Colonoscopy: Yes Dec 04, 2017 Surgeon (s) VANESSA DANIELSON MD Post Procedure/Op Diagnosis distal esophageal stricture with an irregular mucosal lesion. Associated hiatal hernia Procedure Performed EGD with brush cytology of distal esophagus Biopsy of distal esophageal lesion Description of Procedure Anesthesia Type: Conscious Sedation Specimen(s) collected/removed brush cytology from the distal esophagus. Tissue from the distal esophageal lesion for histological examination Description of the Procedure Indication for the procedure: This lady came in for an upper endoscopy to evaluate progressive dysphagia. Informed consent was obtained after reviewing the procedure in detail. Description of the procedure: She was placed in left lateral decubitus position and her vital signs were monitored. Conscious sedation was achieved using Versed and fentanyl. The flexible gastroscope was then introduced down the esophagus, where an irregular stricture with a possible mucosal lesion, occupying about one third of the circumference was identified. In addition, an associated hiatal hernia was also encountered. I was able to negotiate the endoscope past the stricture and examine the stomach and the duodenum, which were normal. The gastroscope was then brought back to the distal esophagus and brush cytology obtained first. Subsequently, conventional biopsies were obtained from the distal esophageal lesion. She tolerated the procedure well and was taken back to the nursing area in a stable condition. Impression: Progressive dysphagia. Mucosal lesion with a stricture of the distal esophagus. Cytology on biopsy pending. If negative, an endoscopic ultrasound with guided biopsy will be obtained prior to planning management. Copy Copies To 1: TORIBIO FOFANA XAVIER M MD Dec 04, 2017 13:34
--- NOTE | 2017-12-04 13:36 | Discharge Inst-Simple/Standard ---
Discharge Inst-Standard Discharge Medications New, Converted or Re-Newed RX: Other Patient Instructions/Follow Up Plan of Care/Instructions/FU: we will call once biopsy reports become available. To resume Plavix on Monday morning Activity as Tolerated: Yes Discharge Diet: Soft Diet AVNESSA DANIELSON MD Dec 04, 2017 13:36
[2017-12-04] MEDS ORDERED: ONDANSETRON 4 MG/2 ML (SDV) Z0FRAN IVP ONE (13:45)
[2017-12-04 13:55] VITALS: BP 178/73
[2017-12-04 14:20] VITALS: BP 135/74
[2017-12-04 14:34] VITALS: BP 135/74
== END 2017-12-04 14:35 | disposition home or self-care (01) ==
LOC: ENDO 10:04
PROVIDERS: ATTEND Surgery
DX: K22.2 Esophageal obstruction (principal); K22.8 Other specified diseases of esophagus; K44.9 Diaphragmatic hernia without obstruction or gangrene; J44.9 Chronic obstructive pulmonary disease, unspecified; R60.9 Edema, unspecified; I25.10 Atherosclerotic heart disease of native coronary artery without angina pectoris; E78.00 Pure hypercholesterolemia, unspecified; I10 Essential (primary) hypertension; R42 Dizziness and giddiness; E03.9 Hypothyroidism, unspecified; M81.0 Age-related osteoporosis without current pathological fracture; I25.2 Old myocardial infarction; Z79.82 Long term (current) use of aspirin; Z79.899 Other long term (current) drug therapy; Z87.891 Personal history of nicotine dependence; Z95.5 Presence of coronary angioplasty implant and graft; Z86.718 Personal history of other venous thrombosis and embolism
CPT/HCPCS: 88104; 88305; 88312

== ENCOUNTER → 2017-12-13 | Outpatient (CLI) | payer MEDICARE, MEDICAID ==
[~2017-12-13] MED LIST changes: +AMOX1TAB11 PO; +BIOT1TAB PO; +DICY20TA10 PO; +EZET10TA27 PO; +FLUT12AE4 IH; +FLUT16SP22 NS; +HYOS-19 SL; +MIRA50TA PO; +MULT-985 PO; +NITR0.4T42 SL; +PRED10TA22 PO
[2017-12-13 16:53] LABS: BASOPHILS % (AUTO) 0 % (0-10); EOSINOPHILS # (AUTO) 0.3 10^3/uL (0.0-0.3); EOSINOPHILS % (AUTO) 5 % (0-10); HEMATOCRIT 38 % (35-52); HEMOGLOBIN 12.1 G/DL (11.5-16.0); LYMPHOCYTES % (AUTO) 28 % (12-44); MEAN CORPUSCULAR HEMOGLOBIN 25 PG (25-34); MEAN CORPUSCULAR HGB CONC 32 G/DL (32-36); MEAN CORPUSCULAR VOLUME 79 FL (80-99); MEAN PLATELET VOLUME 10.7 FL (7.4-10.4); MONOCYTES # (AUTO) 0.6 X 10^3 (0.0-1.0); MONOCYTES % (AUTO) 9 % (0-12); NEUTROPHILS # (AUTO) 4.2 X 10^3 (1.8-7.8); NEUTROPHILS % (AUTO) 59 % (42-75); PLATELET COUNT 282 10^3/uL (130-400); RED BLOOD COUNT 4.84 10^6/uL (4.35-5.85); RED CELL DISTRIBUTION WIDTH 16.6 % (10.0-14.5); WHITE BLOOD COUNT 7.1 10^3/uL (4.3-11.0)
--- NOTE | 2017-12-13 16:53 | Diagnostic Imaging Report ---
PATIENT HISTORY: PNEUMONIA. TECHNIQUE: Two views of the chest. COMPARISON: 03/16/2017. FINDINGS: The lung volumes are normal. No focal consolidation is seen. No large pleural effusion or pneumothorax is seen. The cardiomediastinal silhouette is normal in size and contour. No acute osseous abnormality is seen. There is left convex curvature of the thoracic spine, which appears stable. There are multilevel compression deformities in the thoracic spine, with multilevel kyphoplasty changes. There is diffuse osteopenia. IMPRESSION: No acute pulmonary abnormality seen. Dictated by: Dictated on workstation # [id number]
== END ==
LOC: LAB 16:23
PROVIDERS: ATTEND Internal Medicine
DX: J18.9 Pneumonia, unspecified organism (principal)
CPT/HCPCS: 36415; 71046; 85025; 87804

== ENCOUNTER 2017-12-14 10:55 | Inpatient (IN) | payer MEDICARE, MEDICAID ==
[~2017-12-14] VITALS: Ht 154.9 cm; Wt 76.2 kg
[~2017-12-14 10:55] MED LIST changes: -AMOX1TAB11 PO; -BIOT1TAB PO; -DICY20TA10 PO; -EZET10TA27 PO; -FLUT12AE4 IH; -FLUT16SP22 NS; -HYOS-19 SL; -MIRA50TA PO; -MULT-985 PO; -NITR0.4T42 SL; -PRED10TA22 PO
[2017-12-14] MEDS ORDERED: ASPIRIN 81 MG CHEW (CHILDREN'S ASA) PO ONE (11:15)
--- NOTE | 2017-12-14 11:25 | ED Cough/URI ---
General Stated Complaint: SOB Source: patient, EMS Exam Limitations: no limitations History of Present Illness Date Seen by Provider: Dec 14, 2017 Time Seen by Provider: 11:24 Initial Comments To ER per EMS from home with reports of shortness of breath for about [address] Brewer yesterday and had an outpatient chest x-ray done. She states that she has had a fever. Timing/Duration: constant Severity/Quality: productive cough Associated Symptoms: cough, shortness of breath, wheezing Allergies and Home Medications Allergies Coded Allergies: No Known Drug Allergies (Unverified , 06/10/15) Home Medications Albuterol Sulfate 18 Gm Hfa.aer.ad, 2 PUFF IH Q4H PRN for WHEEZING, (Reported) Aspirin 81 Mg Tablet.dr, 81 MG PO DAILY, (Reported) Duloxetine HCl 60 Mg Capsule.dr, 60 MG PO DAILY, (Reported) Levothyroxine Sodium 112 Mcg Tablet, 112 MCG PO DAILY, (Reported) Lorazepam 1 Mg Tablet, 1 MG PO TID, (Reported) Menthol 118 Ml Gel..ml., TP BID, (Reported) APPLY TO RIGHT LEG FROM KNEE TO LOWER LEG Metoprolol Succinate 50 Mg Tab.er.24h, 50 MG PO DAILY, (Reported) NOTIFY MD IF SBP LESS THAN 90 OR GREATHER THAN 200 OR PULSE LESS THAN 50 Nitroglycerin 0.4 Mg Tab.subl, 0.4 MG SL UD PRN for CHEST PAIN, (Reported) Omeprazole 40 Mg Capsule.dr, 40 MG PO BID, (Reported) Pantoprazole Sodium 40 Mg Tablet.dr, 40 MG PO DAILY, (Reported) Pregabalin 150 Mg Capsule, 150 MG PO Q12H, (Reported) Ropinirole HCl 1 Mg Tablet, 2 MG PO HS, (Reported) Temazepam 30 Mg Capsule, 30 MG PO HS, (Reported) Patient Home Medication List Home Medication List Reviewed: Yes Review of Systems Review of Systems Constitutional: see HPI EENTM: see HPI Respiratory: see HPI, cough, short of breath, wheezing Cardiovascular: no symptoms reported Genitourinary: no symptoms reported Musculoskeletal: no symptoms reported Skin: no symptoms reported Psychiatric/Neurological: No Symptoms Reported Hematologic/Lymphatic: No Symptoms Reported Past Fzwwkap-Aiixlj-Qnytqm Hx Patient Social History Type Used: Cigarettes Former Smoker, Quit: Mar 26, 1996 2nd Hand Smoke Exposure: Yes Recent Hopitalizations: No Immunizations Up To Date Tetanus Booster (TDap): Unknown PED Vaccines UTD: No Date of Pneumonia Vaccine: Apr 22, 2009 Date of Influenza Vaccine: Nov 20, 2016 Seasonal Allergies Seasonal Allergies: Yes Past Medical History Surgeries: Yes (HERNIA REPAIR) Abdominal, Appendectomy, Bladder Surgery, Bowel Surgery, Cardiac, Coronary Stent , Hysterectomy, Oophorectomy, Orthopedic, Tonsillectomy Respiratory: Yes Pulmonary Embolism, COPD Currently Using CPAP: No Currently Using BIPAP: No Cardiac: Yes (STENTS X2) Chronic Edema/Swelling, Coronary Artery Disease, Deep Vein Thrombosis, Heart Attack, High Cholesterol, Hypertension Neurological: Yes (COGNITIVE DEFICIT) Vertigo 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 Disorders: No LATHE HAND History: Hysterectomy, Menopausal Genitourinary: Yes (INCONTINENCE) Kidney Infection, Bladder Infection, UTI-Chronic Gastrointestinal: Yes Abdominal Hernia, Gastroesophageal Reflux, Diverticulosis, Esophagitis Musculoskeletal: Yes Osteoporosis, Arthritis, Chronic Back Pain, Fractures Endocrine: Yes (HYPOTHYROID) Hypothyroidsim HEENT: Yes (FULL DENTURES) Cataract, Dysphagia Loss of Vision: Denies Hearing Impairment: Denies Cancer: No Psychosocial: Yes (EXTENSIVE HISTORY OF RX ABUSE/OVERDOSES--OPIATES AND BENZO' S ) Anxiety, Depression Integumentary: No Blood Disorders: Yes (anemia post op epideral site,bld transfusion) Adverse Reaction/Blood Tranf: No Family Medical History Family history: Hypertension G8 BROTHER Myocardial infarction 19 MOTHER G8 BROTHER Physical Exam Vital Signs - First Documented Capillary Refill : Height: 5'6.00" Weight: 180lbs. 0.0oz. 81.608346ul; 29.1 BMI Method:Estimated General Appearance: WD/WN, no apparent distress Eyes: Bilateral Eye Normal Inspection, Bilateral Eye PERRL, Bilateral Eye EOMI HEENT: PERRL/EOMI, normal ENT inspection, other (No JVD present. ) Neck: non-tender, full range of motion Respiratory: no accessory muscle use, decreased breath sounds, accessory muscle use, wheezing Cardiovascular: regular rate, rhythm, no murmur Gastrointestinal: normal bowel sounds, soft Neurologic/Psychiatric: alert, normal mood/affect, oriented x 3 Skin: normal color, warm/dry Focused Exam Lactate Level 12/14/17 11:15: Lactic Acid Level 1.19 Lactic Acid Level Laboratory Tests Test 12/14/17 11:15 Lactic Acid Level 1.19 MMOL/L (0.50-2.00) Progress/Results/Core Measures Suspected Sepsis SIRS Temperature: Pulse: Respiratory Rate: Laboratory Tests 12/14/17 11:15: White Blood Count 6.7 Blood Pressure / Mean: 12/14/17 11:15: Lactic Acid Level 1.19 Laboratory Tests 12/14/17 11:15: Creatinine 0.74, Platelet Count 268, Total Bilirubin 0.3 Results/Orders Lab Results Laboratory Tests Test 12/14/17 11:15 Range/Units White Blood Count 6.7 4.3-11.0 10^3/uL Red Blood Count 4.34 L 4.35-5.85 10^6/uL Hemoglobin 10.9 L 11.5-16.0 G/DL Hematocrit 35 35-52 % Mean Corpuscular Volume 80 80-99 FL Mean Corpuscular Hemoglobin 25 25-34 PG Mean Corpuscular Hemoglobin Concent 32 32-36 G/DL Red Cell Distribution Width 16.5 H 10.0-14.5 % Platelet Count 268 130-400 10^3/uL Mean Platelet Volume 10.4 7.4-10.4 FL Neutrophils (%) (Auto) 70 42-75 % Lymphocytes (%) (Auto) 19 12-44 % Monocytes (%) (Auto) 6 0-12 % Eosinophils (%) (Auto) 5 0-10 % Basophils (%) (Auto) 0 0-10 % Neutrophils # (Auto) 4.7 1.8-7.8 X 10^3 Lymphocytes # (Auto) 1.3 1.0-4.0 X 10^3 Monocytes # (Auto) 0.4 0.0-1.0 X 10^3 Eosinophils # (Auto) 0.3 0.0-0.3 10^3/uL Basophils # (Auto) 0.0 0.0-0.1 10^3/uL Sodium Level 132 L 135-145 MMOL/L Potassium Level 4.3 3.6-5.0 MMOL/L Chloride Level 102 98-107 MMOL/L Carbon Dioxide Level 23 21-32 MMOL/L Anion Gap 7 5-14 MMOL/L Blood Urea Nitrogen 12 7-18 MG/DL Creatinine 0.74 0.60-1.30 MG/DL Estimat Glomerular Filtration Rate > 60 BUN/Creatinine Ratio 16 Glucose Level 111 H 70-105 MG/DL Lactic Acid Level 1.19 0.50-2.00 MMOL/L Calcium Level 9.7 8.5-10.1 MG/DL Corrected Calcium 9.9 8.5-10.1 MG/DL Magnesium Level 1.9 1.8-2.4 MG/DL Total Bilirubin 0.3 0.1-1.0 MG/DL Aspartate Amino Transf (AST/SGOT) 10 5-34 U/L Alanine Aminotransferase (ALT/SGPT) 10 0-55 U/L Alkaline Phosphatase 84 40-136 U/L Myoglobin 32.7 10.0-92.0 NG/ML Troponin I < 0.30 <0.30 NG/ML B-Type Natriuretic Peptide 120.7 H <100.0 PG/ML Total Protein 6.1 L 6.4-8.2 GM/DL Albumin 3.7 3.2-4.5 GM/DL Lipase 5 L 8-78 U/L Micro Results Microbiology 12/14/17 Influenza Types A,B Antigen (GOLDEN) - Final, Complete My Orders Orders - ALFREDO JOSÉ BLUEPRINT PROCESSOR Cbc With Automated Diff (12/14/17 11:08) Magnesium (12/14/17 11:08) Chest 1 View, Ap/Pa Only (12/14/17 11:08) Ekg Tracing (12/14/17 11:08) Cardiac Profile 1 (12/14/17 11:08) Comprehensive Metabolic Panel (12/14/17 11:08) Myoglobin Serum (12/14/17 11:08) Aspirin Chewable Tablet (Baby Aspirin Ch (12/14/17 11:15) Lipase (12/14/17 11:08) BNP (12/14/17 11:08) Albuterol/Ipra Inhalation Soln (Duoneb I (12/14/17 11:30) Svn Small Volume Nebulizer (12/14/17 11:22) Albuterol Pre-Mix Nebs (Rt) (Proventil (12/14/17 11:30) Svn Small Volume Nebulizer (12/14/17 11:22) Blood Culture (12/14/17 11:28) Lactic Acid Analyzer (12/14/17 11:28) Methylprednisolone Sod Succ (Solu-Medrol (12/14/17 11:30) Influenza A And B Antigens (12/14/17 11:28) Lorazepam Injection (Ativan Injection) (12/14/17 12:00) Albuterol Pre-Mix Nebs (Rt) (Proventil (12/14/17 12:00) Albuterol/Ipra Inhalation Soln (Duoneb I (12/14/17 12:00) Svn Small Volume Nebulizer (12/14/17 11:58) Svn Small Volume Nebulizer (12/14/17 11:58) Medications Given in ED Current Medications Medications Dose Ordered Sig/Perez Route Start Time Stop Time Status Last Admin Dose Admin Albuterol Sulfate 12.5 mg ONCE ONCE INH 12/14/17 12:00 12/14/17 12:01 DC 12/14/17 12:00 12.5 MG Albuterol/ Ipratropium 3 ml ONCE ONCE INH 12/14/17 11:30 12/14/17 11:31 DC 12/14/17 11:30 3 ML Albuterol/ Ipratropium 3 ml ONCE ONCE INH 12/14/17 12:00 12/14/17 12:01 DC 12/14/17 12:00 3 ML Aspirin 324 mg ONCE ONCE PO 12/14/17 11:15 12/14/17 11:55 DC 12/14/17 11:48 324 MG Lorazepam 0.5 mg ONCE PRN IVP 12/14/17 12:00 12/14/17 11:56 0.5 MG Methylprednisolone Sodium Succinate 125 mg ONCE ONCE IVP 12/14/17 11:30 12/14/17 11:31 DC 12/14/17 11:48 125 MG Vital Signs/I&O 12/14/17 12/14/17 12/14/17 12/14/17 11:00 11:00 11:32 12:00 Temp 100.1 Pulse 76 Resp 13 B/P (MAP) 153/76 (101) Pulse Ox 97 97 96 O2 Delivery Nasal Cannula Nasal Cannula Nasal Cannula Nasal Cannula O2 Flow Rate 2.00 2.00 2.00 2.00 Capillary Refill : Diagnostic Imaging Diagonstic Imaging: Xray Plain Films/CT/US/NM/MRI: chest Comments NAME: [facility] REC#: [id number] PT STATUS: REG ER : 1940 PHYSICIAN: ALFREDO JOSÉ APRN ADMIT DATE: 12/14/17/ER Draft Date of Exam:12/14/17 CHEST 1 VIEW, AP/PA ONLY INDICATION: Shortness of air. COMPARISON: 12/13/2017 FINDINGS: Single frontal view of the chest demonstrates normal cardiac silhouette and pulmonary vasculature. The lungs are well aerated and clear. No large pleural effusion or pneumothorax is seen. The visualized osseous structures show no acute abnormalities. IMPRESSION: 1. No acute cardiopulmonary process. Dictated on workstation # [id number] Dict: 12/14/17 1138 Trans: 12/14/17 1141 [id number] Interpreted by: TIAGO HAMMER MD Electronically signed by: Departure Communication (Admissions) Time/Spoke to Admitting Phy: 13:19 Dr. Cox came and saw the patient in the emergency room, she agrees to admit and has written admission orders. 1150-Patient reported to RN that she feels as though she is having a panic attack. This is also a time that she normally takes her scheduled Ativan. She states to the nurse that she takes 2 mg of the time but her external medication history only reports 1 mg on K tracks. She has a multitude of visits for benzodiazepine/opiate overdose. In light of her current respiratory illness, 0.5 mg ordered. 1200-minimal improvement in wheezing after 1 duoneb and 2 albuterol. Hour long albuterol started. Impression Primary Impression: COPD with acute exacerbation Disposition: ADMITTED INPATIENT Condition: Stable Admissions Decision to Admit Reason: Admit from ER (General) Decision to Admit/Date: Dec 14, 2017 Time/Decision to Admit Time: 12:02 Departure-Patient Inst. Referrals: TORIBIO BREWER DO (PCP/Family) Primary Care Physician ALFREDO JOSÉ APRN Dec 14, 2017 11:25
[2017-12-14 11:28] LABS: BASOPHILS % (AUTO) 0 % (0-10); EOSINOPHILS # (AUTO) 0.3 10^3/uL (0.0-0.3); EOSINOPHILS % (AUTO) 5 % (0-10); HEMATOCRIT 35 % (35-52); HEMOGLOBIN 10.9 G/DL (11.5-16.0); LYMPHOCYTES # (AUTO) 1.3 X 10^3 (1.0-4.0); LYMPHOCYTES % (AUTO) 19 % (12-44); MEAN CORPUSCULAR HEMOGLOBIN 25 PG (25-34); MEAN CORPUSCULAR HGB CONC 32 G/DL (32-36); MEAN CORPUSCULAR VOLUME 80 FL (80-99); MEAN PLATELET VOLUME 10.4 FL (7.4-10.4); MONOCYTES # (AUTO) 0.4 X 10^3 (0.0-1.0); MONOCYTES % (AUTO) 6 % (0-12); NEUTROPHILS # (AUTO) 4.7 X 10^3 (1.8-7.8); NEUTROPHILS % (AUTO) 70 % (42-75); PLATELET COUNT 268 10^3/uL (130-400); RED BLOOD COUNT 4.34 10^6/uL (4.35-5.85); RED CELL DISTRIBUTION WIDTH 16.5 % (10.0-14.5); WHITE BLOOD COUNT 6.7 10^3/uL (4.3-11.0)
[2017-12-14] MEDS ORDERED: RT-ALBUTEROL/IPRATROPIUM 3 ML (DUONEB) VIAL INH ONE ×2 (11:30→12:00)
[2017-12-14] MEDS ORDERED: methylPREDNISolone 125 MG (Solu-MEDROL) VIAL IVP ONE (11:30)
[2017-12-14] MEDS ORDERED: RT-ALBUTEROL SULF 2.5 MG/3 ML PRE-MIX VIAL INH SCH (11:30)
--- NOTE | 2017-12-14 11:41 | Diagnostic Imaging Report ---
INDICATION: Shortness of air. COMPARISON: 12/13/2017 FINDINGS: Single frontal view of the chest demonstrates normal cardiac silhouette and pulmonary vasculature. The lungs are well aerated and clear. No large pleural effusion or pneumothorax is seen. The visualized osseous structures show no acute abnormalities. IMPRESSION: 1. No acute cardiopulmonary process. Dictated by: Dictated on workstation # [id number]
[2017-12-14 11:49] LABS: ALANINE AMINOTRANSFERASE 10 U/L (0-55); ALBUMIN 3.7 GM/DL (3.2-4.5); ALKALINE PHOSPHATASE 84 U/L (40-136); BILIRUBIN,TOTAL 0.3 MG/DL (0.1-1.0); BUN/CREATININE RATIO 16; CALCIUM 9.7 MG/DL (8.5-10.1); CARBON DIOXIDE 23 MMOL/L (21-32); CHLORIDE 102 MMOL/L (98-107); CREATININE SERUM 0.74 MG/DL (0.60-1.30); GFR ESTIMATED > 60; GLUCOSE 111 MG/DL (70-105); LIPASE 5 U/L (8-78); MAGNESIUM 1.9 MG/DL (1.8-2.4); POTASSIUM 4.3 MMOL/L (3.6-5.0); SODIUM 132 MMOL/L (135-145); TOTAL PROTEIN 6.1 GM/DL (6.4-8.2)
[2017-12-14 11:56] LABS: MYOGLOBIN SERUM 32.7 NG/ML (10.0-92.0)
[2017-12-14] MEDS ORDERED: LORazepam INJ 2 MG/ML (ATIVAN) VIAL IVP PRN ×2 (12:00→12:45)
[2017-12-14] MEDS ORDERED: RT-ALBUTEROL SULF 2.5 MG/3 ML PRE-MIX VIAL INH ONE (12:00)
[2017-12-14] MEDS ORDERED: BENZONATATE 100 MG (TESSALON) CAPSULE PO PRN (12:45)
[2017-12-14] MEDS ORDERED: ONDANSETRON 4 MG/2 ML (SDV) Z0FRAN IV PRN (12:45)
[2017-12-14] MEDS ORDERED: ACETAMINOPHEN 500 MG TAB (TYLENOL) PO PRN (12:45)
[2017-12-14] MEDS ORDERED: ANTACID SUSP 30 ML UDC (MYLANTA) PO PRN (12:45)
[2017-12-14] MEDS ORDERED: MILK OF MAGNESIA 400 MG/5 ML 30 ML UDC PO PRN (12:45)
[2017-12-14] MEDS ORDERED: RT-ALBUTEROL/IPRATROPIUM 3 ML (DUONEB) VIAL INH SCH ×2 (12:45→15:00)
--- NOTE | 2017-12-14 12:49 | History & Physical-Hospitalist ---
History of Present Illness Source: patient Date Seen 12/14/17 Time Seen by a Provider: 12:47 Attending Physician PCP Eliud Brewer DO Referring Physician Date of Admission Home Medications & Allergies Home Medications Reviewed patient Home Medication Reconciliation performed by pharmacy medication reconciliations pharmacy laboratory technician and/or nursing. Patients Allergies have been reviewed. Allergies Allergies Coded Allergies No Known Drug Allergies (Unverified06/10/15) Past Bolxtjf-Maoxjo-Fbrrzi Hx Patient Social History Alcohol Use: Denies Use Recreational Drug Use: No Smoking Status: Former Smoker Former Smoker, Quit: Mar 26, 1996 Type Used: Cigarettes 2nd Hand Smoke Exposure: Yes Recent Foreign Travel: No Contact w/other who traveled: No Recent Hopitalizations: No Recent Infectious Disease Expo: No Immunizations Up To Date Tetanus Booster (TDap): Unknown Pediatric: No Date of Pneumonia Vaccine: Apr 22, 2009 Date of Influenza Vaccine: Nov 20, 2016 Seasonal Allergies Seasonal Allergies: Yes Past Medical History Surgeries: Abdominal, Appendectomy, Bladder Surgery, Bowel Surgery, Cardiac, Coronary Stent, Hysterectomy, Oophorectomy, Orthopedic, Tonsillectomy Respiratory: Asthma, COPD, Pneumonia Currently Using CPAP: No Currently Using BIPAP: No Cardiac: Chronic Edema/Swelling, Coronary Artery Disease, Deep Vein Thrombosis , Heart Attack, High Cholesterol, Hypertension Neurological: Vertigo 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: No Hysterectomy, Menopausal Genitourinary: Kidney Infection, Bladder Infection, UTI-Chronic Gastrointestinal: Abdominal Hernia, Gastroesophageal Reflux, Diverticulosis, Esophagitis Musculoskeletal: Osteoporosis, Arthritis, Chronic Back Pain, Fractures Endocrine: Hypothyroidsim HEENT: Cataract, Dysphagia Loss of Vision: Denies Hearing Impairment: Denies Psychosocial: Anxiety, Depression History of Blood Disorders: Yes (anemia) Adverse Reaction to Blood [place]: No Family History Family history: Hypertension G8 BROTHER Myocardial infarction 19 MOTHER G8 BROTHER Physical Exam Physical Exam Vital Signs Vital Signs - First Documented Capillary Refill : Less Than 3 Seconds Height, Weight, BMI Height: 5'1.00" Weight: 159lbs. 0.0oz. 72.908675tg; 29.1 BMI Method:Stated Results Results/Procedures Labs Laboratory Tests 12/14/17 11:15 Patient resulted labs reviewed. Assessment/Plan Admission Diagnosis COPD Exacerbation Admission Status: Inpatient Order (span 2 midnights) Reason for Inpatient Admission: Failed outpatient management Diagnosis/Problems Diagnosis/Problems (1) COPD exacerbation Assessment & Plan: Continue steroids Scheduled and prn albuterol Pulm consulted, discussed with Dr Agee (2) Chronic back pain Qualifiers: Back pain location: back pain in unspecified location Back pain laterality : unspecified Qualified Codes: M54.9 - Dorsalgia, unspecified; G89.29 - Other chronic pain (3) Hypothyroidism Status: Chronic Qualifiers: Hypothyroidism type: acquired Qualified Codes: E03.9 - Hypothyroidism, unspecified (4) Essential (primary) hypertension Status: Chronic (5) Prophylactic measure MARY GORE MD Dec 14, 2017 12:49
--- OUTSIDE RECORDS SUMMARY | 2017-12-14 13:40 | XMS REPORT | Clinical Summary ---
Author Author [facility] Organization [facility] Address Unknown Phone Unavailable Care Team Providers [facility] Director Name Role Phone Donna Brown RN Unavailable Unavailable Michael Mandujano MD Unavailable Alfonso Lino DO Unavailable Alfonso Keith MD Unavailable Eliud Brewer MD PCP Source Comments Some departments are not documenting in the electronic medical record. If you do not see the information that you expected, contact Release of Information in the Health Information Management department at [phone] for further assistance in locating additional records.[facility] Allergies Active Allergy Reactions Severity Noted [...] emulsion needed. fluticasone (FLONASE) 50 Apply 1 [place] to each Active mcg/actuation nasal spray nostril [...] (coronary artery disease) 06/03/2009 Overview: Hx of [place] 4 yrs ago Depression 06/03/2009 Arthritis 06/03/2009 [...] PERTUSSIS VACCINE 1949 TETANUS VACCINE 04/27/1955 SHINGLES RECOMBINANT 1988 VACCINE (1 of 2) OSTEOPOROSIS SCREENING 04/27/2003 PNEUMONIA (PCV13/PPSV23) 04/27/2003 VACCINES (1 of 2 - PCV13) INFLUENZA VACCINE 09/20/2017 Implants Implanted Type Area Surveillance Observer Device Expiration Model / Identifier Date Serial / Lot Lens-04/22/2004 Other / Implanted: 04/22/2004 (Quantity not / on file) [id number]-69/7/2004 Stent / Implanted: 01/27/2004 by Bobby / MD Karina (Quantity not on file) [id number] Results Not on filefrom Last 3 Months
[2017-12-14 14:00] VITALS: BP 176/83
[2017-12-14] MEDS ORDERED: RT-ALBUTEROL/IPRATROPIUM 3 ML (DUONEB) VIAL INH PRN (14:00)
[2017-12-14] MEDS: ENOXAPARIN 40 MG/0.4 ML (LOVENOX) SYR SC SCH (14:29)
--- NOTE | 2017-12-14 14:45 | Pulmonary Consultation ---
History of Present Illness History of Present Illness Date of Consultation 12/14/17 14:45 Date of Admission Allergies and Home Medications Allergies Coded Allergies: No Known Drug Allergies (Unverified , 06/10/15) Home Medications Albuterol Sulfate 18 Gm Hfa.aer.ad, 2 PUFF IH Q4H PRN for WHEEZING, (Reported) Aspirin 81 Mg Tablet.dr, 81 MG PO DAILY, (Reported) Duloxetine HCl 60 Mg Capsule.dr, 60 MG PO DAILY, (Reported) Levothyroxine Sodium 112 Mcg Tablet, 112 MCG PO DAILY, (Reported) Lorazepam 1 Mg Tablet, 1 MG PO TID, (Reported) Menthol 118 Ml Gel..ml., TP BID, (Reported) APPLY TO RIGHT LEG FROM KNEE TO LOWER LEG Metoprolol Succinate 50 Mg Tab.er.24h, 50 MG PO DAILY, (Reported) NOTIFY MD IF SBP LESS THAN 90 OR GREATHER THAN 200 OR PULSE LESS THAN 50 Nitroglycerin 0.4 Mg Tab.subl, 0.4 MG SL UD PRN for CHEST PAIN, (Reported) Omeprazole 40 Mg Capsule.dr, 40 MG PO BID, (Reported) Pantoprazole Sodium 40 Mg Tablet.dr, 40 MG PO DAILY, (Reported) Pregabalin 150 Mg Capsule, 150 MG PO Q12H, (Reported) Ropinirole HCl 1 Mg Tablet, 2 MG PO HS, (Reported) Temazepam 30 Mg Capsule, 30 MG PO HS, (Reported) Past Zgjhkds-Grypus-Hoasfa Hx Patient Social History Alcohol Use: Denies Use Recreational Drug Use: No Smoking Status: Former Smoker Type Used: Cigarettes Former Smoker, Quit: Mar 26, 1996 2nd Hand Smoke Exposure: Yes Recent Foreign Travel: No Contact w/Someone Who Travel: No Recent Infectious Disease Expo: No Recent Hopitalizations: No Immunizations Up To Date Tetanus Booster (TDap): Unknown PED Vaccines UTD: No Date of Pneumonia Vaccine: Apr 22, 2009 Date of Influenza Vaccine: Nov 20, 2016 Seasonal Allergies Seasonal Allergies: Yes Past Medical History Surgeries: Yes (HERNIA REPAIR, colostomy then reversal) Abdominal, Appendectomy, Bladder Surgery, Bowel Surgery, Cardiac, Coronary Stent , Hysterectomy, Oophorectomy, Orthopedic, Tonsillectomy Respiratory: Yes Pulmonary Embolism, COPD Currently Using CPAP: No Currently Using BIPAP: No Cardiac: Yes (STENTS X2) Chronic Edema/Swelling, Coronary Artery Disease, Deep Vein Thrombosis, Heart Attack, High Cholesterol, Hypertension Neurological: Yes (COGNITIVE DEFICIT) Vertigo 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 Disorders: No 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, 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 Genitourinary: Yes (INCONTINENCE) Kidney Infection, Bladder Infection, UTI-Chronic Gastrointestinal: Yes (COLOSTOMY recent reversal; PARASTOMAL HERNIA) Abdominal Hernia, Gastroesophageal Reflux, Diverticulosis, Esophagitis Musculoskeletal: Yes (compression fracture status post kyphoplasty) Osteoporosis, Arthritis, Chronic Back Pain, Fractures Endocrine: Yes (HYPOTHYROID) Hypothyroidsim HEENT: Yes (FULL DENTURES) Cataract, Dysphagia Loss of Vision: Denies Hearing Impairment: Denies Cancer: No Psychosocial: Yes (EXTENSIVE HISTORY OF RX ABUSE/OVERDOSES--OPIATES AND BENZO' S ) Anxiety, Depression Integumentary: No Blood Disorders: Yes (anemia) Adverse Reaction/Blood Tranf: No Family Medical History Family history: Hypertension G8 BROTHER Myocardial infarction 19 MOTHER G8 BROTHER Sepsis Event Evaluation Height, Weight, BMI Height: 5'1.00" Weight: 163lbs. 0.0oz. 73.981589up; 30.8 BMI Method:Stated Exam Exam Vital Signs Date Time Temp Pulse Resp B/P (MAP) Pulse Ox O2 Delivery O2 Flow Rate FiO2 12/14/17 14:00 96.8 105 20 176/83 (114) 98 Nasal Cannula 2.00 12/14/17 12:00 Nasal Cannula 2.00 12/14/17 11:32 96 Nasal Cannula 2.00 12/14/17 11:00 97 Nasal Cannula 2.00 12/14/17 11:00 100.1 76 13 153/76 (101) 97 Nasal Cannula 2.00 Height & Weight Height: 5'1.00" Weight: 163lbs. 0.0oz. 73.033738fq; 30.8 BMI Method:Stated Capillary Refill: Less Than 3 Seconds Gastrointestinal: normal bowel sounds, soft Results Lab Laboratory Tests 12/14/17 11:15 ARAM SANCHEZ DO Dec 14, 2017 14:45
[2017-12-14] MEDS ORDERED: CLOP75TA28 PO (15:14)
[2017-12-14] MEDS ORDERED: HYOS-19 SL (15:14)
[2017-12-14] MEDS ORDERED: MIRA50TA PO (15:14)
[2017-12-14] MEDS ORDERED: AMOX1TAB11 PO (15:14)
[2017-12-14] MEDS ORDERED: EZET10TA27 PO (15:14)
[2017-12-14] MEDS ORDERED: NITR0.4T42 SL (15:14)
[2017-12-14] MEDS ORDERED: ROPI4TAB5 PO (15:14)
[2017-12-14] MEDS ORDERED: CYCL1DRO OU (15:14)
[2017-12-14] MEDS ORDERED: DICY20TA10 PO (15:14)
[2017-12-14] MEDS ORDERED: FLUT16SP22 NS (15:14)
[2017-12-14] MEDS ORDERED: BIOT1TAB PO (15:15)
[2017-12-14] MEDS ORDERED: FLU QUADRIvalent (5+ YOA) 2018-2019 (AFLURIA) 0.5 ML IM ONE (15:15)
[2017-12-14] MEDS ORDERED: MULT-985 PO (15:17)
[2017-12-14 15:40] VITALS: BP 142/76
[2017-12-14] MEDS: inSUlin ASPART (NovoLOG) 1 UNIT/0.01 ML (CHARGE PER UNIT) SC SCH ×2 (16:43→20:47)
[2017-12-14] MEDS: methylPREDNISolone 40 MG/ML (Solu-MEDROL) VIAL IV SCH ×2 (18:16→23:35)
[2017-12-14] MEDS ORDERED: NON-FORMULARY MEDICATION 1 EA EA (Hyoscyamine Sulfate 0.125 MG) SL PRN (18:30)
[2017-12-14] MEDS ORDERED: FLUTICASONE NASAL SPRAY (FLONASE) 16 GM BTL NS PRN (18:30)
[2017-12-14] MEDS ORDERED: NON-FORMULARY MEDICATION 1 EA EA (Dicyclomine HCl 20 MG) PO PRN (18:30)
[2017-12-14] MEDS: RT-ALBUTEROL/IPRATROPIUM 3 ML (DUONEB) VIAL INH SCH ×2 (18:36→22:18)
[2017-12-14] MEDS ORDERED: DICYCLOMINE 10 MG (BENTYL) CAP PO PRN (18:45)
[2017-12-14] MEDS ORDERED: HYOSCYAMINE 0.125 MG (LEVSIN) TAB SL PRN (18:45)
[2017-12-14] MEDS ORDERED: ARTIFICAL TEARS 0.4 ML UNIT DOSE (REFRESH PLUS) OU PRN (18:45)
[2017-12-14] MEDS: LORazepam 1 MG (ATIVAN) TAB PO PRN (20:48)
[2017-12-14] MEDS: PREGABALIN 75 MG (LYRICA) CAP PO SCH (20:48)
[2017-12-14] MEDS ORDERED: NON-FORMULARY MEDICATION 1 EA EA (Cyclosporine (Restasis) 1 DROP) OU SCH (21:00)
[2017-12-14] MEDS ORDERED: NON-FORMULARY MEDICATION 1 EA EA (Pregabalin (Lyrica) 150 MG) PO SCH (21:00)
[2017-12-14] MEDS: MELATONIN 3 MG TABLET PO PRN (22:37)
[2017-12-15] VITALS (7 sets, daily range): BP systolic 137–168; BP diastolic 65–82
[2017-12-15] MEDS: RT-ALBUTEROL/IPRATROPIUM 3 ML (DUONEB) VIAL INH SCH ×6 (02:24→22:19)
[2017-12-15] MEDS: methylPREDNISolone 40 MG/ML (Solu-MEDROL) VIAL IV SCH (05:43)
[2017-12-15] MEDS: PANTOPRAZOLE 40 MG (PROTONIX) TAB PO SCH (05:43)
[2017-12-15] MEDS: LEVOTHYROXINE 112 MCG (LEVOTHROID) TAB PO SCH (05:43)
[2017-12-15] MEDS: inSUlin ASPART (NovoLOG) 1 UNIT/0.01 ML (CHARGE PER UNIT) SC SCH ×4 (05:43→20:45)
[2017-12-15] MEDS: ASPIRIN E.C. 81 MG (ECOTRIN) TAB PO SCH (08:19)
[2017-12-15] MEDS: DULoxetine 30 MG (CYMBALTA) CAP PO SCH (08:19)
[2017-12-15] MEDS: eZETimibe 10 MG (ZETIA) TABLET PO SCH (08:19)
[2017-12-15] MEDS: meTOproloL SUCCINATE 50 MG (TOPROL XL) TAB PO SCH (08:19)
[2017-12-15] MEDS: CLOPIDOGREL 75 MG (PLAVIX) TABLET PO SCH (08:19)
[2017-12-15] MEDS: PREGABALIN 75 MG (LYRICA) CAP PO SCH ×2 (08:22→21:04)
--- NOTE | 2017-12-15 08:48 | Pulmonary Progress Note ---
Subjective Time Seen by a Provider: 10:02 Subjective/Events-last exam sitting up in chair still complains of SOB. she is requesting more frequent SVN treatments. [facility] Sepsis Event Evaluation Height, Weight, BMI Height: 5'1.00" Weight: 167lbs. 5.0oz. 75.200615bh; 30.8 BMI Method:Stated Focused Exam Lactate Level 12/14/17 11:15: Lactic Acid Level 1.19 Exam Exam Vital Signs Date Time Temp Pulse Resp B/P (MAP) Pulse Ox O2 Delivery O2 Flow Rate FiO2 12/15/17 08:28 94 92 24 12/15/17 06:59 92 Nasal Cannula 1.00 12/15/17 04:48 97.9 107 22 137/65 (89) 100 Room Air 12/15/17 02:24 96 Nasal Cannula 2.00 12/15/17 00:00 97.9 100 14 168/82 (110) 95 Room Air 12/14/17 23:50 Nasal Cannula 2.00 12/14/17 22:18 94 Room Air 12/14/17 20:00 Nasal Cannula 2.00 12/14/17 18:36 93 Room Air 12/14/17 15:40 96.6 100 24 142/76 (98) 96 Room Air 12/14/17 14:00 Nasal Cannula 2.00 12/14/17 14:00 96.8 105 20 176/83 (114) 98 Nasal Cannula 2.00 12/14/17 13:43 106 20 121/76 (91) 97 Nasal Cannula 2.00 12/14/17 12:00 Nasal Cannula 2.00 12/14/17 11:32 96 Nasal Cannula 2.00 12/14/17 11:00 97 Nasal Cannula 2.00 12/14/17 11:00 100.1 76 13 153/76 (101) 97 Nasal Cannula 2.00 I & O 12/15/17 06:59 Intake Total 950 ml Output Total 650 ml Balance 300 ml Height & Weight Height: 5'1.00" Weight: 167lbs. 5.0oz. 75.024947uu; 30.8 BMI Method:Stated General Appearance: Anxious, Mild Distress HEENT: PERRL/EOMI, Pharynx Normal Neck: Full Range of Motion, Non Tender, Supple Respiratory: Chest Non Tender, Crackles, Decreased Breath Sounds Cardiovascular: Regular Rate, Rhythm Capillary Refill: Less Than 3 Seconds Gastrointestinal: normal bowel sounds, soft Extremity: Normal Capillary Refill Neurologic/Psychiatric: Alert Skin: Normal Color, Warm/Dry Results Lab Laboratory Tests 12/14/17 11:15 Assessment/Plan Assessment/Plan COPDAE pt has 3 liters via NC at night and PRN at home -Solumedrol change to prednisone -increase SVNS to Q4 per patient request add advair -Oxygen -Will arrange for pulmonary rehab as out patient. Debility ARAM SANCHEZ DO Dec 15, 2017 08:48
[2017-12-15] MEDS ORDERED: NON-FORMULARY MEDICATION 1 EA EA (Aspirin (Aspir 81) 81 MG) PO SCH (09:00)
[2017-12-15] MEDS ORDERED: NON-FORMULARY MEDICATION 1 EA EA (Duloxetine HCl 60 MG) PO SCH (09:00)
[2017-12-15] MEDS ORDERED: NON-FORMULARY MEDICATION 1 EA EA (Mirabegron (Myrbetriq) 50 MG) PO SCH (09:00)
--- NOTE | 2017-12-15 09:14 | Progress Note-Hospitalist ---
Subjective HPI/CC On Admission Date Seen by Provider: Dec 15, 2017 Time Seen by Provider: 09:09 Subjective/Events-last exam Pt reports breathing better and feeling better today. Actually requesting discharge home today. Focused Exam Lactate Level 12/14/17 11:15: Lactic Acid Level 1.19 Objective Exam Vital Signs Vital Signs Date Time Temp Pulse Resp B/P (MAP) Pulse Ox O2 Delivery O2 Flow Rate FiO2 12/15/17 08:28 94 92 24 12/15/17 06:59 Nasal Cannula 1.00 12/15/17 04:48 97.9 22 137/65 (89) Capillary Refill : Less Than 3 Seconds General Appearance: No Apparent Distress, WD/WN Respiratory: No Accessory Muscle Use, No Respiratory Distress, Decreased Breath Sounds; No Wheezing Cardiovascular: Regular Rate, Rhythm, No Murmur Gastrointestinal: Normal Bowel Sounds, Soft Neurologic/Psychiatric: Alert, Oriented x3 Results/Procedures Lab Laboratory Tests 12/14/17 11:15 Patient resulted labs reviewed. Assessment/Plan Assessment and Plan Assess & Plan/Chief Complaint COPD Exacerbation Diagnosis/Problems Diagnosis/Problems (1) COPD exacerbation Assessment & Plan: Continue steroids Scheduled and prn albuterol Pulm consulted, discussed with Dr Cyndie MINOR protocol (2) Chronic back pain Assessment & Plan: Continue home meds Qualifiers: Back pain location: back pain in unspecified location Back pain laterality : unspecified Qualified Codes: M54.9 - Dorsalgia, unspecified; G89.29 - Other chronic pain (3) Hypothyroidism Status: Chronic Assessment & Plan: Continue home synthroid Qualifiers: Hypothyroidism type: acquired Qualified Codes: E03.9 - Hypothyroidism, unspecified (4) Essential (primary) hypertension Status: Chronic Assessment & Plan: Well controlled for age (5) Prophylactic measure Assessment & Plan: Lovenox Saline lock Reg Diet Clinical Quality Measures DVT/VTE Risk/Contraindication: Risk Factor Score Per Nursin RFS Level Per Nursing on Admit: 4+=Very High MARY GORE MD Dec 15, 2017 9:14 am
[2017-12-15] MEDS: RT-ADVAIR HFA 115/21 MCG PER PUFF IH SCH ×2 (10:40→18:50)
[2017-12-15] MEDS ORDERED: RT-ALBUTEROL/IPRATROPIUM 3 ML (DUONEB) VIAL INH SCH (11:00)
--- NOTE | 2017-12-15 13:05 | Physical Therapy Evaluation ---
PT Evaluation-General Medical Diagnosis Admission Date Dec 14, 2017 at 13:26 Medical Diagnosis: COPD exacerbation Onset Date: Dec 14, 2017 Therapy Diagnosis Therapy Diagnosis: debility Height/Weight Height (Feet): 5 Height (Inches): 1.00 Weight (Pounds): 167 Weight (Ounces): 5.0 Precautions Precautions/Isolations: Fall Prevention, Standard Precautions Weight Bear Status Right Lower Extremity: Right Weight Bearing/Tolerated Left Lower Extremity: Left Weight Bearing/Tolerated Referral Physician: Kenny Reason for Referral: Evaluation/Treatment Medical History Pertinent Medical History: Arthritis, CAD, COPD, GERD, HTN, Hypothroidism Current History EMS secondary to SOB x 2 days Reviewed History: Yes Social History Home: Apartment Current Living Status: Alone Entry Into Home: Level Entry Prior/Core FIM Prior Level of Function Functional [place] Measure 0=Not Assessed/NA 4=Minimal Assistance 1=Total Assistance 5=Supervision or Setup 2=Maximal Assistance 6=Modified [place] 3=Moderate Assistance 7=Complete IndependenceIRFPAI Quality Coding Scale 6 Independent with activity with or without an assistive device 5 Patient requires set up or clean up by helper. Patient completes activity by themselves 4 Supervision or touching assist (CGA). [place] provide cues , steadying assist 3 The helper provides less than half the effort to complete the activity 2 The helper provides more than half the effort to complete the activity 1 Dependent. The helper does all the effort to complete an activity 7 Patient refused to complete or attempt activity 9 The patient did not perform the activity before the current illness or injury 88 Not attempted due to Medical conditions or safety concerns Bed Mobility: 6 Transfers (B,C,W/C) (FIM): 6 Gait: 6 PT Evaluation-Current Subjective Patient is very agreeable to participate with PT. Pain Numeric Pain Scale: 0-No Pain Location: No Pain Reported Objective Patient Orientation: Normal For Age Problem Solving: Good ROM/Strength ROM Lower Extremities bilateral LE WFL Strength Lower Extremities 4/5 grossly bilaterally Integumentary/Posture Integumentary refer to nursing notes Bowel Incontinence: No Posture noted scoliosis Neuromuscular (Tone, Coordination, Reflexes) grossly intact Sensory Vision: Wears Glasses Hearing: Functional Sensation Right Lower Extremit: Intact Sensation Left Lower Extremity: Intact Transfers Functional [place] Measure 0=Not Assessed/NA 4=Minimal Assistance 1=Total Assistance 5=Supervision or Setup 2=Maximal Assistance 6=Modified [place] 3=Moderate Assistance 7=Complete [place] Transfers (B, C, W/C) (FIM): 6 Scootin Rollin Supine to/from Sit: 6 Sit to/from Stand: 6 Gait Mode of Locomotion: Walk Anticipated Mode of Locomotion: Walk Gait (FIM): 6 Distance (FIM): 3=150 ft Distance: 500' Gait Level of Assist: 6 Gait Assistive Device: FWW Comments/Gait Description steady, safe and functional Balance Sitting Static: Normal Sitting Dynamic: Normal Standing Static: Normal Standing Dynamic: Normal Assessment/Needs 77 y.o. female, is currently at [facility] with all gross motor skills and has been instructed to be up ad fran in room and hallway. RN agrees. No skilled PT indicated. Rehab Potential: Fair PT Plan Treatment/Plan Treatment Plan: Discontinue PT, goals met Treatment Plan: Other Treatment Duration: Dec 15, 2017 Frequency: 1 time per week Estimated Hrs Per Day: .25 hour per day Patient and/or Family Agrees t: Yes Discharge Recommendations Therapy D/C Recommendations: Home Independently Time/GCodes Time In: 1102 Time Out: 1116 Total Billed Treatment Time: 14 Total Billed Treatment 1 visit EVLowC 14 min G Codes Necessary: No ORTEGA MATIAS PT Dec 15, 2017 13:05
[2017-12-15] MEDS: ENOXAPARIN 40 MG/0.4 ML (LOVENOX) SYR SC SCH (14:02)
[2017-12-15] MEDS: ACETAMINOPHEN 325 MG TABLET PO PRN (15:53)
[2017-12-15] MEDS ORDERED: ROPINIROLE HCL 8 MG PO SCH (18:00)
[2017-12-15] MEDS ORDERED: rOPINIRole 1 MG (REQUIP) TABLET PO SCH (18:00)
[2017-12-15] MEDS: MELATONIN 3 MG TABLET PO PRN (21:04)
[2017-12-16] VITALS: BP 143/66
[2017-12-16] MEDS: ACETAMINOPHEN 325 MG TABLET PO PRN (00:23)
[2017-12-16] MEDS: RT-ALBUTEROL/IPRATROPIUM 3 ML (DUONEB) VIAL INH SCH ×3 (02:12→10:36)
[2017-12-16 04:00] VITALS: BP 150/67
[2017-12-16] MEDS: LORazepam 1 MG (ATIVAN) TAB PO PRN (04:43)
[2017-12-16 06:50] LABS: HEMOGLOBIN 9.8 G/DL (11.5-16.0); MEAN PLATELET VOLUME 10.4 FL (7.4-10.4); RED BLOOD COUNT 3.8 10^6/uL (4.35-5.85); RED CELL DISTRIBUTION WIDTH 17.2 % (10.0-14.5); WHITE BLOOD COUNT 12.8 10^3/uL (4.3-11.0)
[2017-12-16] MEDS: RT-ADVAIR HFA 115/21 MCG PER PUFF IH SCH (06:50)
[2017-12-16] MEDS: PANTOPRAZOLE 40 MG (PROTONIX) TAB PO SCH (06:57)
[2017-12-16] MEDS ORDERED: predniSONE 20 MG TAB PO SCH (07:00)
[2017-12-16] MEDS: LEVOTHYROXINE 112 MCG (LEVOTHROID) TAB PO SCH (07:00)
[2017-12-16] MEDS: inSUlin ASPART (NovoLOG) 1 UNIT/0.01 ML (CHARGE PER UNIT) SC SCH ×2 (07:00→11:32)
--- NOTE | 2017-12-16 07:10 | Pulmonary Progress Note ---
Subjective Time Seen by a Provider: 07:10 Sepsis Event Evaluation Height, Weight, BMI Height: 5'1.00" Weight: 168lbs. 5.0oz. 76.534729qs; 30.8 BMI Method:Stated Focused Exam Lactate Level 12/14/17 11:15: Lactic Acid Level 1.19 Exam Exam Vital Signs Date Time Temp Pulse Resp B/P (MAP) Pulse Ox O2 Delivery O2 Flow Rate FiO2 12/16/17 06:59 Room Air 12/16/17 06:50 97 Room Air 12/16/17 04:00 97.6 95 16 150/67 (94) 95 Room Air 12/16/17 02:13 94 Room Air 12/16/17 00:00 99.3 94 18 143/66 (91) 95 Room Air 12/15/17 22:20 96 Room Air 12/15/17 20:30 97.7 97 20 146/67 (93) 97 Room Air 12/15/17 20:00 Room Air 12/15/17 18:57 Room Air 12/15/17 18:52 98 Room Air 12/15/17 15:50 97.8 96 20 144/66 (92) 97 Room Air 12/15/17 14:53 94 Room Air 12/15/17 12:00 98.2 74 18 154/72 (99) 95 Room Air 12/15/17 10:44 Room Air 12/15/17 10:40 97 Room Air 12/15/17 08:28 94 92 24 12/15/17 08:00 97.8 88 18 145/78 (100) 95 Room Air 12/15/17 08:00 92 Nasal Cannula 1.00 I & O 12/16/17 07:00 Intake Total 1330 ml Output Total 1250 ml Balance 80 ml Height & Weight Height: 5'1.00" Weight: 168lbs. 5.0oz. 76.665106qv; 30.8 BMI Method:Stated General Appearance: Anxious, Mild Distress HEENT: PERRL/EOMI, Pharynx Normal Neck: Full Range of Motion, Non Tender, Supple Respiratory: Chest Non Tender, Crackles, Decreased Breath Sounds Cardiovascular: Regular Rate, Rhythm Capillary Refill: Less Than 3 Seconds Gastrointestinal: normal bowel sounds, soft Extremity: Normal Capillary Refill Neurologic/Psychiatric: Alert Skin: Normal Color, Warm/Dry Results Lab Laboratory Tests 12/14/17 11:15 12/16/17 06:16 Assessment/Plan Assessment/Plan COPDAE pt has 3 liters via NC at night and PRN at home -prednisone -increase SVNS to Q4 advair -Oxygen -Will arrange for pulmonary rehab as out patient. Debility ARAM SANCHEZ DO Dec 16, 2017 07:10
[2017-12-16 07:12] LABS: BUN/CREATININE RATIO 36; CALCIUM 9.8 MG/DL (8.5-10.1); CARBON DIOXIDE 20 MMOL/L (21-32); CHLORIDE 104 MMOL/L (98-107); CREATININE SERUM 0.75 MG/DL (0.60-1.30); GFR ESTIMATED > 60; GLUCOSE 108 MG/DL (70-105); POTASSIUM 3.9 MMOL/L (3.6-5.0); SODIUM 135 MMOL/L (135-145)
[2017-12-16 08:05] VITALS: BP 152/70
[2017-12-16] MEDS: eZETimibe 10 MG (ZETIA) TABLET PO SCH (08:28)
[2017-12-16] MEDS: CLOPIDOGREL 75 MG (PLAVIX) TABLET PO SCH (08:28)
[2017-12-16] MEDS: ASPIRIN E.C. 81 MG (ECOTRIN) TAB PO SCH (08:28)
[2017-12-16] MEDS: meTOproloL SUCCINATE 50 MG (TOPROL XL) TAB PO SCH (08:28)
[2017-12-16] MEDS: DULoxetine 30 MG (CYMBALTA) CAP PO SCH (08:28)
[2017-12-16] MEDS: PREGABALIN 75 MG (LYRICA) CAP PO SCH (08:28)
[2017-12-16] MEDS ORDERED: FLUT12AE4 IH (08:38)
[2017-12-16] MEDS ORDERED: PRED10TA22 PO (08:38)
--- NOTE | 2017-12-16 08:42 | Discharge Inst-Simple/Standard ---
Discharge Inst-Standard Discharge Medications New, Converted or Re-Newed RX: Transmitted to Pharmacy Patient Instructions/Follow Up Plan of Care/Instructions/FU: Please continue to take your medications as written. Please follow up with you PCP in the next week and with Dr Agee as scheduled. Activity as Tolerated: Yes Discharge Diet: Cardiac Diet Return to The Hospital For: Worsening cough, shortness of breath, difficulty breathing, confusion, fever, if you feel you are getting worse. Planned Outpatient Orders/Ref. Pneu Vac Indicated: Yes MARY GORE MD Dec 16, 2017 8:42 am
--- NOTE | 2017-12-16 08:44 | Discharge Summary-Hospitalist ---
Diagnosis/Chief Complaint Date of Admission Dec 14, 2017 at 1:26 pm Date of Discharge Discharge Date: Dec 16, 2017 Admission Diagnosis COPD Exacerbation Discharge Diagnosis (1) COPD exacerbation Assessment & Plan: Continue steroids Scheduled and prn albuterol Pulm consulted, discussed with Dr Cyndie MINOR protocol (2) Chronic back pain Assessment & Plan: Continue home meds (3) Hypothyroidism Status: Chronic Assessment & Plan: Continue home synthroid (4) Essential (primary) hypertension Status: Chronic Assessment & Plan: Well controlled for age (5) Prophylactic measure Assessment & Plan: Lovenox Saline lock Reg Diet Discharge Summary Discharge Physical Exam Allergies: Coded Allergies: No Known Drug Allergies (Unverified , 06/10/15) Vitals & I&Os Vital Signs Date Time Temp Pulse Resp B/P (MAP) Pulse Ox O2 Delivery O2 Flow Rate FiO2 12/16/17 08:05 97.3 97 14 152/70 (97) 94 Room Air 12/15/17 20:00 12/15/17 08:28 24 Hospital Course Labs (last 24 hrs) Laboratory Tests 12/15/17 11:02: Glucometer 188H 12/15/17 16:30: Glucometer 211H 12/15/17 20:22: Glucometer 140H 12/16/17 05:45: Glucometer 117H 12/16/17 06:16: White Blood Count 12.8H, Red Blood Count 3.80L, Hemoglobin 9.8L, Hematocrit 31L , Mean Corpuscular Volume 81, Mean Corpuscular Hemoglobin 26, Mean Corpuscular Hemoglobin Concent 32, Red Cell Distribution Width 17.2H, Platelet Count 282, Mean Platelet Volume 10.4, Sodium Level 135, Potassium Level 3.9, Chloride Level 104, Carbon Dioxide Level 20L, Anion Gap 11, Blood Urea Nitrogen 27H, Creatinine 0.75, Estimat Glomerular Filtration Rate > 60, BUN/Creatinine Ratio 36, Glucose Level 108H, Calcium Level 9.8 Microbiology 12/14/17 Blood Culture - Preliminary, Resulted No growth 12/14/17 Influenza Types A,B Antigen (GOLDEN) - Final, Complete Patient resulted labs reviewed. Pending Labs Laboratory Tests 12/16/17 05:45: Glucometer 117 12/16/17 06:16: White Blood Count 12.8, Red Blood Count 3.80, Hemoglobin 9.8, Hematocrit 31, Mean Corpuscular Volume 81, Mean Corpuscular Hemoglobin 26, Mean Corpuscular Hemoglobin Concent 32, Red Cell Distribution Width 17.2, Platelet Count 282, Mean Platelet Volume 10.4, Sodium Level 135, Potassium Level 3.9, Chloride Level 104, Carbon Dioxide Level 20, Anion Gap 11, Blood Urea Nitrogen 27, Creatinine 0.75, Estimat Glomerular Filtration Rate > 60, BUN/Creatinine Ratio 36, Glucose Level 108, Calcium Level 9.8 Discharge Home Medications: Active Scripts Active Prednisone 10 Mg Tab.ds.pk 10 Mg PO DAILY Take 6 tabs(60mg)daily,decrease by 1 tab(10MG)daily. Advair Hfa 115-21 Mcg Inhaler (Fluticasone/Salmeterol) 12 Gm Hfa.aer.ad 2 Puff IH BID@08,20 Reported Hair, Skin & Nails (Multivitamin with Minerals) 1 Each Tablet 1 Tab PO DAILY Biotin 1 Mg Tablet 1 Mg PO DAILY Fluticasone Propionate 16 Gm [place].susp 1 [place] NS BID PRN Restasis (Cyclosporine) 1 Each Droperette 1 Drop OU BID Ezetimibe 10 Mg Tablet 10 Mg PO DAILY Clopidogrel (Clopidogrel Bisulfate) 75 Mg Tablet 75 Mg PO DAILY Hyoscyamine Sulfate 0.125 Mg Tab.subl 0.125 Mg SL TID PRN Ropinirole HCl 4 Mg Tablet 8 Mg PO 1800 TAKES 2 (4MG) TABLETS Nitroglycerin 0.4 Mg Tab.subl 0.4 Mg SL UD PRN Myrbetriq (Mirabegron) 50 Mg Tab.er.24h 50 Mg PO DAILY Dicyclomine HCl 20 Mg Tablet 20 Mg PO BID PRN Amox Tr-K Clv 500-125 mg Tab (Amoxicillin/Potassium Clav) 1 Each Tablet 1 Tab PO BID 7 Days 7 DAY THERAPY FILLED 12-16-17 Aspir 81 (Aspirin) 81 Mg Tablet.dr 81 Mg PO DAILY Omeprazole 40 Mg Capsule.dr 40 Mg PO HS Duloxetine HCl 60 Mg Capsule.dr 60 Mg PO DAILY Ventolin Hfa (Albuterol Sulfate) 18 Gm Hfa.aer.ad 2 Puff IH Q4H Temazepam 30 Mg Capsule 30 Mg PO HS Lyrica (Pregabalin) 150 Mg Capsule 150 Mg PO BID Biofreeze (Menthol) 118 Ml Gel..ml. TP BID PRN APPLY TO RIGHT LEG FROM KNEE TO LOWER LEG Lorazepam 1 Mg Tablet 1 Mg PO TID PRN Levothyroxine Sodium 112 Mcg Tablet 112 Mcg PO DAILY Pantoprazole Sodium 40 Mg Tablet.dr 40 Mg PO DAILY Metoprolol Succinate 50 Mg Tab.er.24h 50 Mg PO DAILY Instructions to patient/family Please see electronic discharge instructions given to patient. Clinical Quality Measures DVT/VTE Risk/Contraindication: Risk Factor Score Per Nursin RFS Level Per Nursing on Admit: 4+=Very High Problem Qualifiers (1) Chronic back pain: Back pain location: back pain in unspecified location Back pain laterality: unspecified Qualified Codes: M54.9 - Dorsalgia, unspecified; G89.29 - Other chronic pain (2) Hypothyroidism: Hypothyroidism type: acquired Qualified Codes: E03.9 - Hypothyroidism, unspecified MARY GORE MD Dec 16, 2017 8:43 am
[2017-12-16 11:55] VITALS: BP 152/70
[2017-12-17] MEDS ORDERED: NS IV 1000 ML 1,000 ML ONE (05:19)
== END 2017-12-16 12:00 | disposition home or self-care (01) | DRG 192 ==
LOC: EDUNIT# 10:55 → ER 10:57 → 4TH 13:26
PROVIDERS: ADMIT Family Medicine; ATTEND Family Medicine
DX: J44.1 Chronic obstructive pulmonary disease with (acute) exacerbation (principal); I10 Essential (primary) hypertension; I25.10 Atherosclerotic heart disease of native coronary artery without angina pectoris; E03.9 Hypothyroidism, unspecified; K21.9 Gastro-esophageal reflux disease without esophagitis; M54.9 Dorsalgia, unspecified; E78.00 Pure hypercholesterolemia, unspecified; M81.0 Age-related osteoporosis without current pathological fracture; I25.2 Old myocardial infarction; Z95.5 Presence of coronary angioplasty implant and graft; Z86.711 Personal history of pulmonary embolism; Z86.718 Personal history of other venous thrombosis and embolism; Z87.891 Personal history of nicotine dependence; Z23 Encounter for immunization
CPT/HCPCS: 36415; 71045; 80048; 80053; 82962; 83605; 83690; 83735; 83874; 83880; 84484; 85025; 85027; 87040; 87804; 90471; 90686; 93005; 93041; 94640; 94760; 94761; 96374; 96375

== ENCOUNTER → 2018-03-06 | Outpatient (CLI) | payer MEDICARE, MEDICAID ==
[~2018-03-06] MED LIST changes: +AMOX1TAB11 PO; +BIOT1TAB PO; +DICY20TA10 PO; +EZET10TA27 PO; +FLUT12AE4 IH; +FLUT16SP22 NS; +HYOS-19 SL; +MIRA50TA PO; +MULT-985 PO; +NITR0.4T42 SL; +PRED10TA22 PO
--- NOTE | 2018-03-06 13:16 | Diagnostic Imaging Report ---
PROCEDURE: CT abdomen and pelvis without contrast. TECHNIQUE: Multiple contiguous axial images were obtained through the abdomen and pelvis without the use of intravenous contrast. INDICATION: Mid abdominal pain. Patient is status post hernia repair six months ago. Correlation is made with prior exam from 07/28/2017. FINDINGS: The lung bases are clear. No discrete liver mass is seen. The gallbladder is contracted. No biliary ductal dilatation is seen. The pancreas and spleen are unremarkable. No adrenal mass is identified. No renal calculus or hydronephrosis is detected. The aorta is calcified but nonaneurysmal. Bowel loops appear to be normal caliber. No obstruction is seen. There are postsurgical changes to the anterior abdominal wall from ventral hernia repair. There is some diastasis of the rectus musculature. There is some laxity to the anterior abdominal wall in the midline with some bulging of the bowel loops and fat; however, the overlying fascia appears to be intact. There is no free fluid. No fluid collection or free air is seen. The bladder is unremarkable. Uterus appears to be surgically absent. Evaluation of bony structures demonstrates postop changes to the right hip. IMPRESSION: Postsurgical changes to the anterior abdominal wall. While there is some laxity to the anterior abdominal wall, no discrete abdominal wall defect or hernia is seen. There is no evidence of bowel obstruction. Dictated by: Dictated on workstation # [id number]
== END ==
LOC: RAD 11:52
PROVIDERS: ATTEND Internal Medicine
DX: R10.9 Unspecified abdominal pain (principal); Z98.890 Other specified postprocedural states; Z90.710 Acquired absence of both cervix and uterus
CPT/HCPCS: 74176

== ENCOUNTER 2018-03-30 14:02 | Emergency (ER) | payer MEDICARE, MEDICAID ==
[~2018-03-30] VITALS: Ht 157.5 cm; Wt 73.5 kg
[~2018-03-30 14:02] MED LIST changes: -GABA600T2 PO; +GBPN600T PO
[2018-03-30] MEDS ORDERED: PROMETHAZINE INJ 25 MG/ML (PHENERGAN) AMP IVP ONE (14:30)
[2018-03-30] MEDS ORDERED: fentaNYL INJECTION 100 MCG/2 ML AMP IVP ONE ×2 (14:30→16:45)
[2018-03-30] MEDS ORDERED: NS IV 1000 ML 1,000 ML IV SCH (14:30)
[2018-03-30] MEDS ORDERED: fentaNYL INJECTION 100 MCG/2 ML AMP IM ONE ×2 (14:45→17:00)
[2018-03-30] MEDS ORDERED: PROMETHAZINE INJ 25 MG/ML (PHENERGAN) AMP IM ONE (14:45)
--- NOTE | 2018-03-30 15:21 | Diagnostic Imaging Report ---
PROCEDURE: CT lumbar spine without contrast. TECHNIQUE: Multiple contiguous axial images were obtained through the lumbar spine without the use of intravenous contrast. Sagittal and coronal reformations were then performed. INDICATION: Back pain for one week. FINDINGS: There is significant right convexity lumbar scoliotic curvature. Lordotic curvature appears normal. There is minimal anterolisthesis of L4 on L5 and minimal retrolisthesis of L5 on S1. Kyphoplasty changes at the T12 and L5 levels are again noted. Vertebral body heights appear to be stable. Heights are similar to the MRI dating back to 09/18/2017. No fractures are identified. The aorta is calcified but nonaneurysmal. Paraspinous tissues are unremarkable. IMPRESSION: Severe lumbar scoliosis and spondylosis with treated compression fractures at T12 and L5. No new compression fracture is identified. Dictated by: Dictated on workstation # [id number]
--- NOTE | 2018-03-30 16:45 | ED Back Pain ---
General Chief Complaint: Hip/Pelvic Problems Stated Complaint: SCIATICA PAIN Nursing Triage Note: pt brought in by ems with complaint of left hip pain. states this has been going on for the last week. denies fall, injury. Nursing Sepsis Screen: No Definite Risk Source of Information: Patient Exam Limitations: No Limitations History of Present Illness Date Seen by Provider: Mar 30, 2018 Time Seen by Provider: 16:36 Initial Comments This 77-year-old white female presents with complaint of low back pain radiating down the posterior aspect of her left leg that is been present progressively last week. The patient denies recent injury to the low back. She denies associated fever or chill. She denies dysuria frequency or flank pain. She denies paresthesia or weakness in the lower extremities. Patient is requesting pain medication and radiographic evaluation. Allergies and Home Medications Allergies Coded Allergies: No Known Drug Allergies (Unverified , 06/10/15) Home Medications Albuterol Sulfate 18 Gm Hfa.aer.ad, 2 PUFF IH Q4H, (Reported) Amoxicillin/Potassium Clav 1 Each Tablet, 1 TAB PO BID, (Reported) 7 DAY THERAPY FILLED 12-16-17 Aspirin 81 Mg Tablet.dr, 81 MG PO DAILY, (Reported) Biotin 1 Mg Tablet, 1 MG PO DAILY, (Reported) Clopidogrel Bisulfate 75 Mg Tablet, 75 MG PO DAILY, (Reported) Cyclosporine 1 Each Droperette, 1 DROP OU BID, (Reported) Dicyclomine HCl 20 Mg Tablet, 20 MG PO BID PRN for CRAMPS, (Reported) Duloxetine HCl 60 Mg Capsule.dr, 60 MG PO DAILY, (Reported) Ezetimibe 10 Mg Tablet, 10 MG PO DAILY, (Reported) Fluticasone Propionate 16 Gm Adell.susp, 1 SPRAY NS BID PRN for ALLERGIES, ( Reported) Fluticasone/Salmeterol 12 Gm Hfa.aer.ad, 2 PUFF IH BID@ Prescribed by: MARY GORE on 12/16/17 0838 Hyoscyamine Sulfate 0.125 Mg Tab.subl, 0.125 MG SL TID PRN for SPASMS, (Reported ) Levothyroxine Sodium 112 Mcg Tablet, 112 MCG PO DAILY, (Reported) Lorazepam 1 Mg Tablet, 1 MG PO TID PRN for ANXIETY, (Reported) Menthol 118 Ml Gel..ml., TP BID PRN for LEG PAIN, (Reported) APPLY TO RIGHT LEG FROM KNEE TO LOWER LEG Metoprolol Succinate 50 Mg Tab.er.24h, 50 MG PO DAILY, (Reported) Mirabegron 50 Mg Tab.er.24h, 50 MG PO DAILY, (Reported) Multivitamin with Minerals 1 Each Tablet, 1 TAB PO DAILY, (Reported) Nitroglycerin 0.4 Mg Tab.subl, 0.4 MG SL UD PRN for CHEST PAIN, (Reported) Omeprazole 40 Mg Capsule.dr, 40 MG PO HS, (Reported) Pantoprazole Sodium 40 Mg Tablet.dr, 40 MG PO DAILY, (Reported) Prednisone 10 Mg Tab.ds.pk, 10 MG PO DAILY Take 6 tabs(60mg)daily,decrease by 1 tab(10MG)daily. Prescribed by: MARY GORE on 12/16/17 0838 Pregabalin 150 Mg Capsule, 150 MG PO BID, (Reported) Ropinirole HCl 4 Mg Tablet, 8 MG PO 1800, (Reported) TAKES 2 (4MG) TABLETS Temazepam 30 Mg Capsule, 30 MG PO HS, (Reported) Patient Home Medication List Home Medication List Reviewed: Yes Review of Systems Constitutional: No chills EENTM: No hearing loss Respiratory: No cough Cardiovascular: no symptoms reported Gastrointestinal: No abdominal pain, No vomiting Genitourinary: No dysuria, No frequency : No Musculoskeletal: see HPI, back pain Skin: no symptoms reported Psychiatric/Neurological: No Symptoms Reported Past Qxteude-Tpwgug-Dtxyto Hx Past Med/Social Hx: Reviewed Nursing Past Med/Soc Hx Patient Social History Alcohol Use: Denies Use Recreational Drug Use: No Smoking Status: Former Smoker Type Used: Cigarettes Former Smoker, Quit: Mar 26, 1996 2nd Hand Smoke Exposure: Yes Recent Foreign Travel: No Contact w/Someone Who Travel: No Recent Infectious Disease Expo: No Recent Hopitalizations: No Immunizations Up To Date Tetanus Booster (TDap): Unknown PED Vaccines UTD: No Date of Pneumonia Vaccine: Apr 22, 2009 Date of Influenza Vaccine: Nov 20, 2016 Seasonal Allergies Seasonal Allergies: Yes Past Medical History Surgeries: Yes (HERNIA REPAIR, colostomy then reversal) Abdominal, Appendectomy, Bladder Surgery, Bowel Surgery, Cardiac, Coronary Stent , Hysterectomy, Oophorectomy, Orthopedic, Tonsillectomy Respiratory: Yes Pulmonary Embolism, COPD Currently Using CPAP: No Currently Using BIPAP: No Cardiac: Yes (STENTS X2) Chronic Edema/Swelling, Coronary Artery Disease, Deep Vein Thrombosis, Heart Attack, High Cholesterol, Hypertension Neurological: Yes (COGNITIVE DEFICIT) Vertigo 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 Disorders: No CARDIOVASCULAR SURGICAL TECH History: Hysterectomy, Menopausal Genitourinary: Yes (INCONTINENCE) Kidney Infection, Bladder Infection, UTI-Chronic Gastrointestinal: Yes (COLOSTOMY recent reversal; PARASTOMAL HERNIA) Abdominal Hernia, Gastroesophageal Reflux, Diverticulosis, Esophagitis Musculoskeletal: Yes (compression fracture status post kyphoplasty) Osteoporosis, Arthritis, Chronic Back Pain, Fractures Endocrine: Yes (HYPOTHYROID) Hypothyroidsim HEENT: Yes (FULL DENTURES) Cataract, Dysphagia Loss of Vision: Denies Hearing Impairment: Denies Cancer: No Psychosocial: Yes (EXTENSIVE HISTORY OF RX ABUSE/OVERDOSES--OPIATES AND BENZO' S ) Anxiety, Depression Integumentary: No Blood Disorders: Yes (anemia) Adverse Reaction/Blood Tranf: No Family Medical History Family history: Hypertension G8 BROTHER Myocardial infarction 19 MOTHER G8 BROTHER Physical Exam Vital Signs Vital Signs - First Documented 03/30/18 14:04 Temp 97.3 Pulse 69 Resp 18 B/P (MAP) 107/68 (81) Pulse Ox 97 O2 Delivery Room Air Capillary Refill : Less Than 3 Seconds Height, Weight, BMI Height: 5'2.00" Weight: 162lbs. 5.0oz. 73.874199la; 30.8 BMI Method:Stated General Appearance: No Apparent Distress, WD/WN Neck: Normal Inspection Cardiovascular: Regular Rate, Rhythm Respiratory: Lungs Clear Gastrointestinal: Normal Bowel Sounds Back: Normal Inspection Extremity: Normal Inspection, Normal Range of Motion Neurologic/Psychiatric: Alert, Oriented x3, No Motor/Sensory Deficits, Normal Mood/Affect, supervisor carbon electrodes II-XII Norm as Tested Skin: Normal Color, Warm/Dry Progress/Results/Core Measures Results/Orders My Orders Orders - VALARIE WHITAKER MD Ct Lumbar Spine Wo (03/30/18 14:16) Ns Iv 1000 Ml (Sodium Chloride 0.9%) (03/30/18 14:30) Fentanyl Injection (Sublimaze Injection (03/30/18 14:45) Promethazine Injection (Phenergan Injec (03/30/18 14:45) Medications Given in ED Current Medications Medications Dose Ordered Sig/Perez Route Start Time Stop Time Status Last Admin Dose Admin Fentanyl Citrate 50 mcg ONCE ONCE IM 03/30/18 14:45 03/30/18 14:46 DC 03/30/18 14:48 50 MCG Promethazine HCl 25 mg ONCE ONCE IM 03/30/18 14:45 03/30/18 14:46 DC 03/30/18 14:48 25 MG Vital Signs/I&O 03/30/18 14:04 Temp 97.3 Pulse 69 Resp 18 B/P (MAP) 107/68 (81) Pulse Ox 97 O2 Delivery Room Air Blood Pressure Mean: 81 Progress Progress Note : Time: 16:38 Progress Note The patient's CT of her lumbar spine demonstrates marked degenerative changes and evidence of previous surgical intervention. Patient's pain was much improved with Phenergan and fentanyl. I discussed findings with the patient. She was given pain medication for the weekend until she can follow-up with her physician on Monday. I invited her to return to the emergency department she had any further problem or question. Departure Impression Primary Impression: Chronic back pain Qualified Codes: M54.42 - Lumbago with sciatica, left side; G89.29 - Other chronic pain Disposition: 01 HOME, SELF-CARE Condition: Improved Departure-Patient Inst. Decision time for Depature: 16:40 Referrals: TORIBIO BREWER DO (PCP/Family) Primary Care Physician Patient Instructions: Chronic Pain (DC) Add. Discharge Instructions: Close follow-up with Dr. Brewer. Percocet for pain. Come back for any problems or questions. All discharge instructions reviewed with patient and/or family. Voiced understanding. VALARIE WHITAKER MD Mar 30, 2018 16:45
[2018-03-30 16:58] VITALS: BP 110/78
== END 2018-03-30 16:58 | disposition home or self-care (01) ==
LOC: EDUNIT# 14:02 → ER 14:03
DX: M54.5 Low back pain (principal); G89.29 Other chronic pain; J44.9 Chronic obstructive pulmonary disease, unspecified; I25.10 Atherosclerotic heart disease of native coronary artery without angina pectoris; I25.2 Old myocardial infarction; E78.00 Pure hypercholesterolemia, unspecified; I10 Essential (primary) hypertension; K21.9 Gastro-esophageal reflux disease without esophagitis; M81.0 Age-related osteoporosis without current pathological fracture; E03.9 Hypothyroidism, unspecified; F41.9 Anxiety disorder, unspecified; F32.9 Major depressive disorder, single episode, unspecified; D64.9 Anemia, unspecified; Z87.19 Personal history of other diseases of the digestive system; Z86.718 Personal history of other venous thrombosis and embolism; Z82.49 Family history of ischemic heart disease and other diseases of the circulatory system; Z79.51 Long term (current) use of inhaled steroids; Z79.82 Long term (current) use of aspirin; Z79.02 Long term (current) use of antithrombotics/antiplatelets; Z79.52 Long term (current) use of systemic steroids; Z87.891 Personal history of nicotine dependence; Z90.49 Acquired absence of other specified parts of digestive tract; Z98.890 Other specified postprocedural states; Z95.5 Presence of coronary angioplasty implant and graft; Z90.710 Acquired absence of both cervix and uterus; Z90.89 Acquired absence of other organs; Z86.711 Personal history of pulmonary embolism
CPT/HCPCS: 72131

== ENCOUNTER 2018-04-28 01:57 | Emergency (ER) | payer MEDICARE, MEDICAID ==
[~2018-04-28] VITALS: Ht 157.5 cm; Wt 75.7 kg
--- OUTSIDE RECORDS SUMMARY | 2018-04-28 02:03 | XMS REPORT | Encounter Summary ---
Author Author [facility] Organization [facility] Address Unknown Phone Unavailable Care Team Providers Care Soda Fountain Operator Name Role Phone Donna Brown RN Unavailable Unavailable Michael Mandujano MD Unavailable Alfonso Lino DO Unavailable Alfonso Keith MD Unavailable Eliud Brewer MD PCP Reason for Visit * Reason Comments Prior Authorization Encounter Details Care Team Description Date Type Department Darius Alvarez MD [address] [facility] Ortho/Med Pavilion L[address] [place] [address] Prior Authorization 04/19/2018 Telephone [facility] - Urology Ortho and Medical Pavilion Level 2A [address] [place] [address] Social History Date Tobacco Use Types Packs/Day Years Used Quit: 10/13/2003 Former Smoker 0.1 10 Smokeless Tobacco: Never Used Alcohol Use Drinks/Week oz/Week Comments No 0 Standard 0.0 drinks or equivalent Sex Assigned at Date Recorded Not on file Industry Job Start Date Occupation Not on file Not on file Not on file Travel End Travel History Travel Start No recent travel history available. as of this encounter Functional Status Date of Assessment Functional Status Response 07/25/2014 Does the patient have a hearing impairment: No 07/25/2014 Does the patient have a visual impairment: Yes 07/25/2014 Does the patient have impaired ambulation: No 07/25/2014 Does the patient have an activity of daily living No (ADL) impairment: 07/25/2014 Does the patient have an instrumental activity of No daily living (IADL) impairment: Date of Assessment Cognitive Status Response 07/25/2014 Does the patient have a cognitive impairment: No as of this encounter Miscellaneous Notes * Telephone Encounter - Isabella Moraes - 04/19/2018 3:48 PM WIND UP WORKER Pt needs PA for trospium started. Call routed to MD Alvarez's nurse. UP WORKER in this encounter Plan of Treatment Not on fileas of this encounter Visit Diagnoses Not on filein this encounter
--- OUTSIDE RECORDS SUMMARY | 2018-04-28 02:03 | XMS REPORT | Encounter Summary ---
Author Author [facility] Organization [facility] Address Unknown Phone Unavailable Care Team Providers Care Wood Block Artist Name Role Phone Donna Brown RN Unavailable Unavailable Michael Mandujano MD Unavailable Alfonso Lino DO Unavailable Alfonso Keith MD Unavailable Eliud Brewer MD PCP Reason for Referral * Consult, Test & Treat (Routine) Referred By Contact Referred To Contact Status Reason Specialty Diagnoses / Procedures Darius Alvarez MD [address] Ortho/Med Pavilion Lvl [address] [place] [address] Closed Specialty Services Diagnoses Required Urge incontinence of urine Reason for Visit * Reason Comments Urinary Incontinence * Consult, Test & Treat (Routine) Referred By Contact Referred To Contact Status Reason Specialty Diagnoses / Procedures [facility] Urology Ortho and Medical Pavilion Level 2A [address] [place] [address] Darius Alvarez MD [address] Ortho/Med Pavilion L[address] [place] [address] No Auth Needed Urology Diagnoses New: incontinence, eval for botox / Medicare / recs attchd-Dr. Easton castro NEW PATIENT Encounter Details Care Team Description Date Type Department Darius Alvarez MD [address] Ortho/Med Pavilion L[address] [place] [address] [phone] Urge incontinence of urine (Primary Dx) 04/18/2018 Office Visit [facility] Physicians - Urology Ortho and Medical Pavilion Level 2A [address] [place] [address] Social History Date Tobacco Use [...] travel history available. as of this encounter Last Filed Vital Signs Time Taken Vital Sign Reading 04/18/2018 1:17 PM LONG CHAIN BEAMER Blood Pressure 140/88 04/18/2018 1:17 PM LONG CHAIN BEAMER Pulse 59 - Temperature - - Respiratory Rate - - Oxygen Saturation - - Inhaled Oxygen - Concentration 04/18/2018 1:08 PM LONG CHAIN BEAMER Weight 78 kg (172 lb) 04/18/2018 1:08 PM LONG CHAIN BEAMER Height 157.5 cm (5' 2") 04/18/2018 1:08 PM LONG CHAIN BEAMER Body Mass Index 31.46 in this encounter Functional Status Date of Assessment [...] cognitive impairment: No as of this encounter Patient Instructions * Patient Instructions* Ailyn Stearns RN - 04/18/2018 1:00 PM LONG CHAIN BEAMER [facility] PHYSICAL THERAPY [address] [place], [place] [facility] [address] [facility] [address] [place], [place] [facility] [address] [place], [place] [facility] [address] [place], [place] [facility] [address] [place], [place] [facility] [address] [place], [place] [facility] [address] [place], [place] [address] [place], [place] [facility] [address] [place], [place] OUT PATIENT @ [facility] [address] [place], [place] [phone] [facility] [address] [place], [place] [facility] [address] [place], [place] [facility] [address] [place], [place] [facility] [address] [place] [facility] [address] [place] [place], [place] [facility] [address] [place], [place] [facility] [address] [place] [address] PH FAX [facility] [address] [place], [place] [facility] [address] [place], [place] [facility] [address] [place] [address] Fingertip Application Method For Estrogen Cream 1. Wash your hands with soap and water and dry thoroughly. 2. Squeeze tube to express out 1 gram of cream (about enough to cover the tip of your index finger, from the last joint to the finger tip. (see Figure 1) Figure 1 This instruction sheet is provided to help your practitioner explain his/her preferred method for applying estrogen cream. Your doctor or nurse will likely use this sheet to assist in their patient education activities. Please note that this information is not intended to replace your practitioners instructions: always follow your doctors specific directions regarding the use of any prescription medications 3. Locate the vaginal opening (see Figure 2). Immediately above the vaginal opening is the urethra (a small opening where urine is eliminated from you body) . The urethra may not be as easily identified as the vagina because the opening is much smaller, however, us the diagram to determine its approximate location. 4. Carefully spread the cream onto the top wall of the vagina just underneath the urethral area (see Figure 2, yellow highlighted area). As the cream is spread, some may be gently inserted into the vagina: however, it is not necessary to push the cream high into the vagina. Rub this into the vaginal wall underneath the urethra as one would rub lotion into the skin. 5. Do not use the applicator that may come with the prescription for the estrogen cream. Use only the small finger tip amount as noted above. Figure 2 CHAIN BEAMER in this encounter Plan of Treatment Order Schedule Name Priority Associated Diagnoses Ordered: 04/18/2018 AMB REFERRAL TO PELVIC FLOOR REHAB Routine Urge incontinence of urine as of this encounter Visit Diagnoses Diagnosis Urge incontinence of urine - Primary Urge incontinence * Assessment & Plan Note - Kwabena Lawrence MD - 04/18/2018 3:26 PM LONG CHAIN BEAMER Associated Problem(s): Urinary incontinence 77 y.o. female with h/o OAB, ISD who presents to re-establish with Dr. Alvarez. She is seen Dr. Mccormack, in [place], [place] who performed UDS and in 2017, reporting OAD and ISD. The patient has previously seen Dr. Alvarez and underwent coaptated injections x2 in 2005. Since that time she states that she has had worsening urge urinary incontinence. Exam was significant for atrophic vaginitis, leak only with very strong Valsalva. She emptied well today with PVR 37cc. We discussed that Myrbetriq has not worked for her over the last few months, we will trial a different medication. We will delay more invasive Botox therapy until after trialing another medication, which has the potential to improve her urgency. Additionally she would benefit from Estrace cream 3 times weekly. She would benefit from pelvic floor physical therapy if it is available in [place], [place]. All questions were answered and she is amenable to the plan. Vaginal Estrace cream 3 times weekly Discontinue Myrbetriq Start Trospium 60 XR daily PFPT with external referral to [facility] in 3-4 months CHAIN BEAMER in this encounter
--- OUTSIDE RECORDS SUMMARY | 2018-04-28 02:03 | XMS REPORT | Clinical Summary ---
Author Author [facility] Organization [facility] Address Unknown Phone Unavailable Care Team Providers Care Senior Statistician Name Role Phone Donna Brown RN Unavailable Unavailable Michael Mandujano MD Unavailable Alfonso Lino DO Unavailable Alfonso Keith MD Unavailable Eliud Brewer MD PCP Source Comments Some departments are not documenting in the electronic medical record. If you do not see the information that you expected, contact Release of Information in the Health Information Management department at [phone] for further assistance in locating additional records.[facility] Allergies Comments Active Allergy Reactions Severity Noted Date Allergy recorded in SMS: LEVOFLOXACIN~Reactions: ARM SWELLING Levofloxacin Medium 04/27/2005 Medications End Date Status Medication Sig Dispensed Refills Start Date Active clopidogrel (PLAVIX) 75 Take 75 mg by 0 mg Tab mouth Daily. Active ezetimibe (ZETIA) 10 mg Take 10 mg by 0 tablet mouth Daily. Active metoclopramide (REGLAN) Take 10 mg by 0 10 mg tablet mouth daily as needed. Active Aspirin 81 mg Take 1 Tab by 1 Tab 0 TabIndications: Chest mouth Daily. 0 pain, HLD (hyperlipidemia), CAD (coronary artery disease), PE (pulmonary embolism), Urinary incontinence, Restless leg syndrome, Depression, Arthritis, Back pain, Hypothyroidism, Bursitis of knee Active nitroglycerin (NITROSTAT) Place 1 Tab 15 Tab 2 0.4 mg tabletIndications: under tongue 0 Chest pain, HLD As Needed for (hyperlipidemia), CAD Chest Pain. (coronary artery give x 3 disease), PE (pulmonary doses and embolism), Urinary then call incontinence, Restless physician leg syndrome, Depression, Arthritis, Back pain, Hypothyroidism, Bursitis of knee Active pantoprazole DR,+, Take 1 Tab by 30 Tab 3 (PROTONIX) 40 mg mouth Daily. 0 tabletIndications: Chest Please take pain, HLD Protonix (hyperlipidemia), CAD while on (coronary artery Plavix disease), PE (pulmonary embolism), Urinary incontinence, Restless leg syndrome, Depression, Arthritis, Back pain, Hypothyroidism, Bursitis of knee Active metoprolol XL (TOPROL XL) Take 50 mg by 0 50 mg tablet mouth daily. Active LORazepam (ATIVAN) 1 mg Take 1 mg by 0 tablet mouth at bedtime daily. Active temazepam (RESTORIL) 30 Take 30 mg by 0 mg capsule mouth at bedtime as needed. Active duloxetine DR (CYMBALTA) Take 60 mg by 0 60 mg capsule mouth daily. Active levothyroxine (SYNTHROID) Take 100 mcg 0 112 mcg tablet by mouth daily. Active rOPINIRole (REQUIP) 4 mg Take 8 mg by 0 tablet mouth at bedtime daily. Active gabapentin (NEURONTIN) Take 900 mg 0 300 mg capsule by mouth twice daily. Active lactulose 10 gram/15 mL Take 20 g by 0 oral solution mouth daily as needed. Active cycloSPORINE (RESTASIS) Place 1 Drop 0 0.05 % ophthalmic into or emulsion around eye(s) daily as needed. Active fluticasone (FLONASE) 50 Apply 1 Boone 0 mcg/actuation nasal spray to each nostril as directed daily as needed. Shake bottle gently before using. Active albuterol (PROAIR HFA) 90 Inhale 2 0 mcg/actuation inhaler Puffs by mouth into the lungs daily as needed for Wheezing or Shortness of Breath. Shake well before use. Active pregabalin (LYRICA) 150 Take 150 mg 0 mg capsule by mouth daily. Active dicyclomine (BENTYL) 10 Take 10 mg by 0 mg capsule mouth four times daily. Active estradiol (ESTRACE) 0.01 Insert or 42.5 g 11 % (0.1 mg/g) vaginal Apply one g 9 cream to vaginal area three times weekly. Apply 1 finger tip amount (1 g) of cream vaginally, 3x/wk at bedtime, as directed. Active trospium ER(+) (SANCTURA Take one 90 capsule 3 XR) 60 mg capsule capsule by 9 mouth daily. Do not cut/ crush/ chew 04/18/2018 Discontinued dicyclomine (BENTYL) 10 Take 10 mg by 0 mg capsule mouth daily as needed. 04/18/2018 Discontinued mirabegron(+) ER Take 50 mg by 0 (MYRBETRIQ ER) 50 mg mouth daily. tablet Active Problems Problem Noted Date Colostomy in place 07/31/2014 Parastomal hernia 07/31/2014 Chest pain 06/03/2009 HLD (hyperlipidemia) 06/03/2009 PE (pulmonary embolism) 06/03/2009 Urinary incontinence 06/03/2009 Overview: 2005: Coaptite injections by Dr. Alvarez x 2 (noted to have ISD on operative note) 07/2017: UDS by Dr. Mccormack ([place]): ISD, OAB, mixed incontinence 04/18/18: PE: Normal sensation b/l, + leak with very strong valsalva, no hypermobility, no prolapse, good levator tone, + atrophic vaginitis PVR: 38 cc Questionaires: MARGIE-6: 12 IIQ-7: 20 PISQ-12: #1 sometimes OAB-V8: 37 L ast Assessment & Plan: 77 y.o. female with h/o OAB, ISD who presents to re-establish with Dr. Alvarez. She is seen Dr. Mccormack, in [place], [place] who performed UDS and in 07/2017, reporting OAD and ISD. The patient has [...] physical therapy if it is available in [place], [place]. All questions were answered and she is amenable to the plan. Vaginal Estrace cream 3 times weekly Discontinue Myrbetriq Start Trospium 60 XR daily PFPT with external referral to [facility] in 3-4 months Restless leg syndrome 06/03/2009 CAD (coronary artery disease) 06/03/2009 Overview: Hx of HI 4 yrs ago Depression 06/03/2009 Arthritis 06/03/2009 Back pain 06/03/2009 Hypothyroidism 06/03/2009 Bursitis of knee 06/03/2009 Overview: R RAJI (obstructive sleep apnea) Overview: noncompliant with CPAP Encounters Care Team Description Date Type Specialty Darius Alvarez MD Prior Authorization 04/19/2018 Telephone Urology Darius Alvarez MD Urge incontinence of urine (Primary Dx) 04/18/2018 Office Visit Urology from Last 3 Months Family History Medical History Relation Name Comments Hypertension Brother Hypertension Maternal Grandfather Hypertension Maternal Grandmother Relation Name Status Comments Brother Alive Father Maternal Grandfather Maternal Grandmother Mother Social History Date Tobacco Use Types Packs/Day [...] Travel Start No recent travel history available. Last Filed Vital Signs Time Taken Vital Sign Reading 04/18/2018 1:17 PM DIANETIC COUNSELOR Blood Pressure 140/88 04/18/2018 1:17 PM DIANETIC COUNSELOR Pulse 59 10/13/2015 9:37 AM CDT Temperature 36.1 C (96.9 F) 09/08/2015 2:37 PM CDT Respiratory Rate 14 10/13/2015 9:37 AM CDT Oxygen Saturation 94% - Inhaled Oxygen - Concentration 04/18/2018 1:08 PM DIANETIC COUNSELOR Weight 78 kg (172 lb) 04/18/2018 1:08 PM DIANETIC COUNSELOR Height 157.5 cm (5' 2") 04/18/2018 1:08 PM DIANETIC COUNSELOR Body Mass Index 31.46 Plan of Treatment Health Maintenance Due Date Last Done Comments PHYSICAL (COMPREHENSIVE) 1945 EXAM DTAP/TDAP VACCINES (1 - 1956 Tdap) SHINGLES RECOMBINANT 1988 VACCINE (1 of 2) OSTEOPOROSIS 04/27/2003 SCREENING/MONITORING PNEUMONIA (PCV13/PPSV23) 04/27/2003 VACCINES (1 of 2 - PCV13) INFLUENZA VACCINE 09/20/2018 12/14/2017 Implants Device Identifier Shelf Expiration Date Model / Serial / Lot Implanted Type Area Manufactur er / / [id number] Lens-04/22/2004 Other Implanted: 04/22/2004 (Quantity not on file) / / [id number]-06/7/2004 Stent Implanted: 01/27/2004 by Karina Rosales MD (Quantity not on file) Results Not on filefrom Last 3 Months Insurance Payer Benefit Subscriber ID Type Phone Address Plan / Group MEDICARE MEDICARE xxxxxxxxxx Medicare PART A AND B [facility] MEDICAID [facility] xxxxxxxxxxx Medicaid [place] Advance Directives Patient has advance care planning documents on file. For more information, please contact: [facility] [address] [place] [address]
[2018-04-28] MEDS ORDERED: LACTATED RINGERS 1,000 ML IV ONE ×2 (02:18→02:28)
--- NOTE | 2018-04-28 02:18 | ED GI ---
General Chief Complaint: Abdominal/GI Problems Stated Complaint: N/D,WEAKNESS Source of Information: Patient, EMS, Old Records History of Present Illness Date Seen by Provider: Apr 28, 2018 Time Seen by Provider: 01:59 Initial Comments PT ARRIVES VIA EMS FROM HOME--LIVES AT HOME WITH 24 HOUR CARETAKERS STATES SHE BEGAN HAVING NAUSEA/VOMITING/DIARRHEA AND ABDOMINAL PAIN AT 0800 YESTERDAY MORNING STATES SHE HAS VOMITED X 1--EMS GAVE ZOFRAN PRIOR TO ARRIVAL PT STATES SHE HAS HAD DIARRHEA AT LEAST 10 TIMES. NO BLACK/BLOODY/TARRY STOOLS STATES SHE HAS BEEN IN BED SINCE 0800 YESTERDAY--INITIALLY WAS ABLE TO GET UP AND GO TO BATHROOM, USING HER WALKER, BUT HAS HAD PROGRESSIVE WEAKNESS AND EVENTUALLY WAS NOT ABLE TO GET OUT OF BED AT ALL, AND HAS BEEN INCONTINENT OF DIARRHEA MULTIPLE TIMES NOW. SHE STATES HER CAREGIVERS HAD GIVEN HER MULTIPLE SHOWERS AFTER EACH EPISODE OF DIARRHEA, BUT THEN EVENTUALLY WAS NOT ABLE TO GET UP FOR ADDITIONAL SHOWERS. PT C/O GENERALIZED ABDOMINAL PAIN PT HAS CHRONIC ABDOMINAL PAIN, AND HAS HAD MULTIPLE ABDOMINAL SURGERIES--HERNIA REPAIRS, COLOSTOMY WITH LATER REVERSAL, APPY PT SAW DR. GUZMAN IN [facility] ON 04/26/18 FOR CHRONIC ABDOMINAL PAIN --PT STATES HE BELIEVED IT WAS FROM SCAR TISSUE FROM ALL OF HER PRIOR SURGERIES. NO KNOWN FEVER NO KNOWN SICK CONTACTS OR SUSPICIOUS FOODS. 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 FOFANA SURGEON: DR. GUZMAN, NOW IN [place], [place] Allergies and Home Medications Allergies Coded Allergies: No Known Drug Allergies (Unverified , 06/10/15) Home Medications Albuterol Sulfate 18 Gm Hfa.aer.ad, 2 PUFF IH Q4H, (Reported) Amoxicillin/Potassium Clav 1 Each Tablet, 1 TAB PO BID, (Reported) 7 DAY THERAPY FILLED 12-16-17 Aspirin 81 Mg Tablet.dr, 81 MG PO DAILY, (Reported) Biotin 1 Mg Tablet, 1 MG PO DAILY, (Reported) Clopidogrel Bisulfate 75 Mg Tablet, 75 MG PO DAILY, (Reported) Cyclosporine 1 Each Droperette, 1 DROP OU BID, (Reported) Dicyclomine HCl 20 Mg Tablet, 20 MG PO BID PRN for CRAMPS, (Reported) Duloxetine HCl 60 Mg Capsule.dr, 60 MG PO DAILY, (Reported) Ezetimibe 10 Mg Tablet, 10 MG PO DAILY, (Reported) Fluticasone Propionate 16 Gm Johnson.susp, 1 SPRAY NS BID PRN for ALLERGIES, ( Reported) Fluticasone/Salmeterol 12 Gm Hfa.aer.ad, 2 PUFF IH BID@ Prescribed by: MARY GORE on 12/16/17837 Hyoscyamine Sulfate 0.125 Mg Tab.subl, 0.125 MG SL TID PRN for SPASMS, (Reported ) Levothyroxine Sodium 112 Mcg Tablet, 112 MCG PO DAILY, (Reported) Lorazepam 1 Mg Tablet, 1 MG PO TID PRN for ANXIETY, (Reported) Menthol 118 Ml Gel..ml., TP BID PRN for LEG PAIN, (Reported) APPLY TO RIGHT LEG FROM KNEE TO LOWER LEG Metoprolol Succinate 50 Mg Tab.er.24h, 50 MG PO DAILY, (Reported) Mirabegron 50 Mg Tab.er.24h, 50 MG PO DAILY, (Reported) Multivitamin with Minerals 1 Each Tablet, 1 TAB PO DAILY, (Reported) Nitroglycerin 0.4 Mg Tab.subl, 0.4 MG SL UD PRN for CHEST PAIN, (Reported) Omeprazole 40 Mg Capsule.dr, 40 MG PO HS, (Reported) Pantoprazole Sodium 40 Mg Tablet.dr, 40 MG PO DAILY, (Reported) Prednisone 10 Mg Tab.ds.pk, 10 MG PO DAILY Take 6 tabs(60mg)daily,decrease by 1 tab(10MG)daily. Prescribed by: MARY GORE on 12/16/17837 Pregabalin 150 Mg Capsule, 150 MG PO BID, (Reported) Ropinirole HCl 4 Mg Tablet, 8 MG PO 1800, (Reported) TAKES 2 (4MG) TABLETS Temazepam 30 Mg Capsule, 30 MG PO HS, (Reported) Patient Home Medication List Home Medication List Reviewed: Yes Review of Systems Review of Systems Constitutional: No fever; weakness Respiratory: No Symptoms Reported Cardiovascular: No Symptoms Reported Gastrointestinal: See HPI, Abdominal Pain, Diarrhea, Nausea, Vomiting Genitourinary: No Symptoms Reported Musculoskeletal: no symptoms reported Skin: no symptoms reported Psychiatric/Neurological: No Symptoms Reported Endocrine: No Symptoms Reported Hematologic/Lymphatic: No Symptoms Reported Past Xmekvul-Wujdzf-Ibnbtw Hx Patient Social History Alcohol Use: Denies Use Recreational Drug Use: Yes (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) Smoking Status: Former Smoker (1 PPD) Type Used: Cigarettes Former Smoker, Quit: Mar 26, 1996 2nd Hand Smoke Exposure: Yes Recent Foreign Travel: No Contact w/Someone Who Travel: No Recent Hopitalizations: No Immunizations Up To Date Tetanus Booster (TDap): Unknown PED Vaccines UTD: No Date of Pneumonia Vaccine: Apr 22, 2009 Date of Influenza Vaccine: Nov 20, 2016 Seasonal Allergies Seasonal Allergies: Yes Past Medical History Surgeries: Yes (COLON RESECTION AND COLOSTOMY FOR PERFORATED DIVERTICULUM/ DIVERTICULITIS; COLOSTOMY REVERSA/TAKEDOWN AND LARGE VENTRAL/PARASTOMAL HERNIA REPAIR 05/12/[address] GUZMAN IN [facility]; KYPHOPLASTY X 2; CARDIAC CATH WITH STENTS X 2; EGD'S/COLONSCOPIES AND DILATION OF ESOPHAGEAL STRICTURES; RIGHT HIP FX/ORIF 03/2016) Abdominal, Appendectomy, Bladder Surgery, Bowel Surgery, Cardiac, Coronary Stent , Hysterectomy, Oophorectomy, Orthopedic, Tonsillectomy Respiratory: Yes Pulmonary Embolism, Sleep Apnea, COPD Currently Using CPAP: No Currently Using BIPAP: No Cardiac: Yes (CARDIAC CATH WITH STENTS X2) Chronic Edema/Swelling, Coronary Artery Disease, Deep Vein Thrombosis, Heart Attack (?), High Cholesterol, Hypertension Neurological: Yes (COGNITIVE DEFICIT) Vertigo 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 Disorders: 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, 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 Genitourinary: Yes (INCONTINENCE) Kidney Infection, Bladder Infection, UTI-Chronic Gastrointestinal: Yes (COLON RESECTION FOR PERFORATED DIVERTICULUM; COLOSTOMY TAKEDOWN/REVERSAL AND REPAIR OF LARGE VENTRAL/ PARASTOMAL HERNIA 05/12/17; DYSPHAGIA; ESOPHAGEAL STRICTURES/DILATIONS; CHRONIC ABDOMINAL PAIN COMPLAINTS) Abdominal Hernia, Gastroesophageal Reflux, Diverticulosis, Esophagitis Musculoskeletal: Yes (FALLS/IMPAIRED MOBILITY--USES WALKER; RESTLESS LEG SYNDROME; RIGHT PALUMBO'S CYST; MULTIPLE VERTEBRAL COMPRESSION FX'S-S/P KYPHOPLASTY X 2; RIGHT HIP FX/ORIF 03/2016) Osteoporosis, Arthritis, Chronic Back Pain, Fractures Endocrine: Yes (HYPOTHYROID) Hypothyroidsim HEENT: Yes (FULL DENTURES) Cataract, Dysphagia Loss of Vision: Denies Hearing Impairment: Denies Cancer: No Psychosocial: Yes (EXTENSIVE HISTORY OF RX ABUSE/OVERDOSES--OPIATES AND BENZO' S ) Anxiety, Depression Integumentary: No Blood Disorders: Yes (ANEMIA) Adverse Reaction/Blood Tranf: No YES Family Medical History Family history: Hypertension G8 BROTHER Myocardial infarction 19 MOTHER G8 BROTHER Physical Exam Vital Signs Vital Signs - First Documented 04/28/18 02:00 Temp 99.2 Pulse 60 Resp 18 B/P (MAP) 136/71 (92) Pulse Ox 96 O2 Delivery Nasal Cannula O2 Flow Rate 2.00 Capillary Refill : Height/Weight/BMI Height: 5'2.00" Weight: 162lbs. 5.0oz. 73.487638uc; 30.8 BMI Method:Stated General Appearance: WD/WN, no apparent distress, other (DOES NOT APPEAR TO BE IN ANY DISCOMFORT OR DISTRESS AT THIS TIME. ) HEENT: other (ORAL MUCOSA MOIST) Neck: normal inspection Respiratory: normal breath sounds, no respiratory distress, no accessory muscle use Cardiovascular: normal peripheral pulses, regular rate, rhythm, no edema, no JVD, no murmur Gastrointestinal: abnormal bowel sounds (HYPERACTIVE), distended (MILDLY DISTENDED BUT STILL SOFT); No guarding, No rebound; tenderness (DIFFUSE TENDERNESS) Focused Exam Lactate Level 04/28/18 02:27: Lactic Acid Level 1.29 Lactic Acid Level Laboratory Tests Test 04/28/18 02:27 Lactic Acid Level 1.29 MMOL/L (0.50-2.00) Progress/Results/Core Measures Results/Orders Lab Results Laboratory Tests Test 04/28/18 02:27 04/28/18 03:58 Range/Units White Blood Count 9.0 4.3-11.0 10^3/uL Red Blood Count 4.78 4.35-5.85 10^6/uL Hemoglobin 11.7 11.5-16.0 G/DL Hematocrit 36 35-52 % Mean Corpuscular Volume 76 L 80-99 FL Mean Corpuscular Hemoglobin 25 25-34 PG Mean Corpuscular Hemoglobin Concent 32 32-36 G/DL Red Cell Distribution Width 17.1 H 10.0-14.5 % Platelet Count 343 130-400 10^3/uL Mean Platelet Volume 10.3 7.4-10.4 FL Neutrophils (%) (Auto) 77 H 42-75 % Lymphocytes (%) (Auto) 14 12-44 % Monocytes (%) (Auto) 7 0-12 % Eosinophils (%) (Auto) 2 0-10 % Basophils (%) (Auto) 0 0-10 % Neutrophils # (Auto) 6.9 1.8-7.8 X 10^3 Lymphocytes # (Auto) 1.2 1.0-4.0 X 10^3 Monocytes # (Auto) 0.7 0.0-1.0 X 10^3 Eosinophils # (Auto) 0.2 0.0-0.3 10^3/uL Basophils # (Auto) 0.0 0.0-0.1 10^3/uL Prothrombin Time 13.4 12.2-14.7 SEC INR Comment 1.0 0.8-1.4 Activated Partial Thromboplast Time 28 24-35 SEC Sodium Level 134 L 135-145 MMOL/L Potassium Level 3.4 L 3.6-5.0 MMOL/L Chloride Level 103 98-107 MMOL/L Carbon Dioxide Level 22 21-32 MMOL/L Anion Gap 9 5-14 MMOL/L Blood Urea Nitrogen 15 7-18 MG/DL Creatinine 0.75 0.60-1.30 MG/DL Estimat Glomerular Filtration Rate > 60 BUN/Creatinine Ratio 20 Glucose Level 100 70-105 MG/DL Lactic Acid Level 1.29 0.50-2.00 MMOL/L Calcium Level 9.6 8.5-10.1 MG/DL Corrected Calcium 9.8 8.5-10.1 MG/DL Magnesium Level 2.0 1.8-2.4 MG/DL Total Bilirubin 0.5 0.1-1.0 MG/DL Aspartate Amino Transf (AST/SGOT) 15 5-34 U/L Alanine Aminotransferase (ALT/SGPT) 8 0-55 U/L Alkaline Phosphatase 80 40-136 U/L Total Protein 6.2 L 6.4-8.2 GM/DL Albumin 3.7 3.2-4.5 GM/DL Amylase Level 21 L 25-125 U/L Lipase 5 L 8-78 U/L Urine Color YELLOW Urine Clarity SLIGHTLY CLOUDY Urine pH 6 5-9 Urine Specific [place] 1.015 L 1.016-1.022 Urine Protein 1+ H NEGATIVE Urine Glucose (UA) NEGATIVE NEGATIVE Urine Ketones NEGATIVE NEGATIVE Urine Nitrite NEGATIVE NEGATIVE Urine Bilirubin NEGATIVE NEGATIVE Urine Urobilinogen NORMAL NORMAL MG/DL Urine Leukocyte Esterase 3+ H NEGATIVE Urine RBC (Auto) 1+ H NEGATIVE Urine RBC 2-5 H /HPF Urine WBC 10-25 H /HPF Urine Squamous Epithelial Cells 0-2 /HPF Urine Crystals NONE /LPF Urine Bacteria FEW H /HPF Urine Casts NONE /LPF Urine Mucus NEGATIVE /LPF Urine Culture Indicated YES Micro Results Microbiology 04/28/18 Influenza Types A,B Antigen (GOLDEN) - Final, Complete My Orders Orders - BETTY MAZARIEGOS DO Saline Lock/Iv-Start (04/28/18 01:59) Monitor-Rhythm Ecg Trace Only (04/28/18 01:59) Amylase (04/28/18 01:59) Cbc With Automated Diff (04/28/18 01:59) Comprehensive Metabolic Panel (04/28/18 01:59) Lactic Acid Analyzer (04/28/18 01:59) Lipase (04/28/18 01:59) Magnesium (04/28/18 01:59) Protime With Inr (04/28/18 01:59) Partial Thromboplastin Time (04/28/18 01:59) Blood Culture (04/28/18 01:59) Influenza A And B Antigens (04/28/18 01:59) Ua Culture If Indicated (04/28/18 01:59) Catheter(Urinary) Insert & Ass 03,15 (04/28/18 01:59) Dicyclomine Injection (Bentyl Injection) (04/28/18 02:30) Hyoscyamine Sl Tablet (Levsin Sl Tablet) (04/28/18 02:30) Saline Lock/Iv-Start (04/28/18 02:18) Lactated Ringers (Lr 1000 Ml Iv Solution (04/28/18 02:18) Saline Lock/Iv-Start (04/28/18 02:28) Lactated Ringers (Lr 1000 Ml Iv Solution (04/28/18 02:28) Ct Abdomen/Pelvis Wo (04/28/18 02:28) Chest 1 View, Ap/Pa Only (04/28/18 02:28) Ketorolac Injection (Toradol Injection) (04/28/18 03:30) Ketorolac Injection (Toradol Injection) (04/28/18 03:30) Urine Culture (04/28/18 03:58) Rocephin 1000mg Im (04/28/18 04:45) Lidocaine 1% Inj 20 Ml (Xylocaine 1% Inj (04/28/18 04:45) Rx-Hyoscyamine Tab (Rx-Levsin Sl) (04/28/18 04:40) Rx-Dicyclomine Capsule (Rx-Bentyl Capsul (04/28/18 04:40) Rx-Ondansetron Po (Rx-Zofran Po) (04/28/18 04:40) Medications Given in ED Current Medications Medications Dose Ordered Sig/Perez Route Start Time Stop Time Status Last Admin Dose Admin Dicyclomine HCl 20 mg ONCE ONCE IM 04/28/18 02:30 04/28/18 03:39 DC 04/28/18 02:35 20 MG Hyoscyamine Sulfate 0.25 mg ONCE ONCE PO 04/28/18 02:30 04/28/18 03:39 DC 04/28/18 02:33 0.25 MG Ketorolac Tromethamine 30 mg ONCE ONCE IVP 04/28/18 03:30 04/28/18 03:32 DC 04/28/18 03:34 30 MG Lactated Ringer's 1,000 ml @ 0 mls/hr Q0M ONCE IV 04/28/18 02:18 04/28/18 03:39 DC 04/28/18 02:30 0 MLS/HR Vital Signs/I&O 04/28/18 02:00 Temp 99.2 Pulse 60 Resp 18 B/P (MAP) 136/71 (92) Pulse Ox 96 O2 Delivery Nasal Cannula O2 Flow Rate 2.00 Progress Progress Note : Progress Note NO VOMITING OR DIARRHEA DURING ER STAY PT REPEATEDLY WANTING MORE PAIN MEDICATIONS, BUT DOES NOT APPEAR TO BE IN ANY DISCOMFORT WHATSOEVER AND OTHERWISE RESTED QUIETLY FOR ENTIRE ER STAY. Departure Impression Primary Impression: Gastroenteritis Additional Impressions: Recurrent ventral hernia EXACERBATION OF CHRONIC ABDOMINAL PAIN UTI (urinary tract infection) Chronic prescription opiate use Disposition: 01 HOME, SELF-CARE Condition: Improved Departure-Patient Inst. Referrals: DR. MEGAN FOFANA,TORIBIO Read DO (PCP/Family) Primary Care Physician Patient Instructions: Abdominal Hernia (DC), Acute Abdomen (Belly Pain), Adult (DC), CHRONIC PAIN, Urinary Tract Infection, Adult (DC), Viral Gastroenteritis, Adult (DC) Add. Discharge Instructions: CONTINUE YOUR REGULAR MEDICATIONS PRESCRIBED CLEAR LIQUIDS, SIPS AT A TIME--WATER, BROTH, JELLO, GATORADE WHEN YOUR NAUSEA AND PAIN IS GONE, ADD BRATS DIET TO CLEAR LIQUIDS--BANANAS, RICE, APPLESAUCE, TOAST, SALTINES FOLLOW UP WITH DR. GUZMAN NEXT WEEK FOR FURTHER CARE FOLLOW UP WITH DR. FOFANA ON MONDAY IF NO BETTER. All discharge instructions reviewed with patient and/or family. Voiced understanding. Scripts Nitrofurantoin Monohyd/M-Cryst (Macrobid 100 mg Capsule) 100 Mg Capsule 100 MG PO BID, #20 CAP Prov: BETTY MAZARIEGOS DO 04/28/18 Hyoscyamine Sulfate (Levsin-Sl) 0.125 Mg Tab.subl 1-2 TAB SL Q4H for Abdominal Pain, #15 TAB Prov: BETTY MAZARIEGOS DO 04/28/18 Dicyclomine HCl (Dicyclomine HCl) 20 Mg Tablet 20 MG PO Q6H for Abdominal Pain, #20 TAB Prov: BETTY MAZARIEGOS K DO 04/28/18 Lactobacillus Acidophilus (Acidophilus) 1 Each Capsule 2 EACH PO QID, #80 CAP Prov: BETTY MAZARIEGOS K DO 04/28/18 LUIS ARMANDO MAZARIEGOSA Galina GUZMAN Apr 28, 2018 02:18
[2018-04-28] MEDS ORDERED: HYOSCYAMINE 0.125 MG (LEVSIN) TAB PO ONE (02:30)
[2018-04-28] MEDS ORDERED: DICYCLOMINE 10 MG/ML (BENTYL) 2 ML AMP IM ONE (02:30)
[2018-04-28 02:37] LABS: BASOPHILS % (AUTO) 0 % (0-10); EOSINOPHILS # (AUTO) 0.2 10^3/uL (0.0-0.3); EOSINOPHILS % (AUTO) 2 % (0-10); HEMATOCRIT 36 % (35-52); HEMOGLOBIN 11.7 G/DL (11.5-16.0); LYMPHOCYTES # (AUTO) 1.2 X 10^3 (1.0-4.0); LYMPHOCYTES % (AUTO) 14 % (12-44); MEAN CORPUSCULAR HEMOGLOBIN 25 PG (25-34); MEAN CORPUSCULAR HGB CONC 32 G/DL (32-36); MEAN CORPUSCULAR VOLUME 76 FL (80-99); MEAN PLATELET VOLUME 10.3 FL (7.4-10.4); MONOCYTES # (AUTO) 0.7 X 10^3 (0.0-1.0); MONOCYTES % (AUTO) 7 % (0-12); NEUTROPHILS # (AUTO) 6.9 X 10^3 (1.8-7.8); NEUTROPHILS % (AUTO) 77 % (42-75); PLATELET COUNT 343 10^3/uL (130-400); RED CELL DISTRIBUTION WIDTH 17.1 % (10.0-14.5)
[2018-04-28 02:49] LABS: PROTHROMBIN TIME PATIENT 13.4 SEC (12.2-14.7)
[2018-04-28 02:58] LABS: ALANINE AMINOTRANSFERASE 8 U/L (0-55); ALBUMIN 3.7 GM/DL (3.2-4.5); ALKALINE PHOSPHATASE 80 U/L (40-136); AMYLASE 21 U/L (25-125); BILIRUBIN,TOTAL 0.5 MG/DL (0.1-1.0); BUN/CREATININE RATIO 20; CALCIUM 9.6 MG/DL (8.5-10.1); CARBON DIOXIDE 22 MMOL/L (21-32); CHLORIDE 103 MMOL/L (98-107); CREATININE SERUM 0.75 MG/DL (0.60-1.30); GFR ESTIMATED > 60; GLUCOSE 100 MG/DL (70-105); LIPASE 5 U/L (8-78); POTASSIUM 3.4 MMOL/L (3.6-5.0); SODIUM 134 MMOL/L (135-145); TOTAL PROTEIN 6.2 GM/DL (6.4-8.2)
[2018-04-28] MEDS ORDERED: KETOROLAC 30 MG/ML VIAL IVP ONE (03:30)
[2018-04-28] MEDS ORDERED: KETOROLAC 30 MG/ML VIAL ONE (03:30)
[2018-04-28 04:07] LABS: BILIRUBIN,URINE NEGATIVE (NEGATIVE); CLARITY,URINE SLIGHTLY CLOUDY; COLOR,URINE YELLOW; GLUCOSE, URINE (UA) NEGATIVE (NEGATIVE); KETONES,URINE NEGATIVE (NEGATIVE); LEUKOCYTE ESTERASE ,URINE 3+ (NEGATIVE); NITRITE,URINE NEGATIVE (NEGATIVE); PH,URINE 6 (5-9); PROTEIN,URINE 1+ (NEGATIVE); UROBILINOGEN,URINE NORMAL (NORMAL)
[2018-04-28 04:23] LABS: BACTERIA,URINE FEW /HPF; SQUAMOUS EPITHELIAL CELL,UR 0-2 /HPF
[2018-04-28] MEDS ORDERED: RX-ONDANSETRON 4 MG ODT (ZOFRAN) PPK #4 PO STA (04:40)
[2018-04-28] MEDS ORDERED: RX-HYOSCYAMINE 0.125 MG SL (LEVSIN) PPK#6 SL STA (04:40)
[2018-04-28] MEDS ORDERED: RX-DICYCLOMINE 10 MG (BENTYL) CAP PPK#4 PO STA (04:40)
[2018-04-28] MEDS ORDERED: LIDOCAINE 1% INJ 20 ML 20 ML VIAL INJ ONE (04:45)
[2018-04-28] MEDS ORDERED: cefTRIAXone 1,000 MG/2.86 ml vial (IM ONLY) IM ONE (04:45)
[2018-04-28] MEDS ORDERED: LACT1CAP8 PO (04:49)
[2018-04-28] MEDS ORDERED: HYOS0.1283 SL (04:49)
[2018-04-28] MEDS ORDERED: NITR-65 PO (04:49)
[2018-04-28] MEDS ORDERED: DICY20TA10 PO (04:49)
[2018-04-28 05:15] VITALS: BP 160/81
--- NOTE | 2018-04-28 08:28 | Diagnostic Imaging Report ---
PROCEDURE: CT abdomen and pelvis without contrast. TECHNIQUE: Multiple contiguous axial images were obtained through the abdomen and pelvis without the use of intravenous contrast. DATE: April 28, 2018. COMPARISON: CT abdomen and pelvis March 06, 2018. INDICATION: 78-year-old female, diarrhea. Abdominal pain. FINDINGS: There are limitations for evaluation of the abdominal organs, neoplastic processes, abscess, and limited evaluation of the vasculature relating to the lack of intravenous contrast. The visualized portions of the lung bases are grossly clear. The heart is not enlarged. There is no identified pericardial effusion. The liver is unremarkable in size and contour. The gallbladder is unremarkable. There is no identified intrahepatic or extrahepatic bile duct dilation. The main pancreatic duct is not grossly dilated. There is mild fatty replacement of the pancreatic parenchyma. Additional noncontrast evaluation of the pancreatic parenchyma is unremarkable. The spleen is normal in size. The adrenal glands are unremarkable. Unremarkable noncontrast evaluation of the renal parenchyma. The urinary collecting systems are not distended. There is no identified renal or ureteral stone. The urinary bladder is grossly unremarkable in appearance. The uterus is not seen and may be surgically absent. There are sutures at the level of the distal sigmoid colon. There are postoperative changes of the anterior abdominal wall most likely relating to prior hernia repair. There is a broad-based anterior abdominal wall hernia near midline on axial image 65 which does contain segments of transverse colon without associated obstruction. There is also a more superiorly located broad-based fat-containing upper abdominal wall hernia anteriorly on axial image 37 and adjacent sequential images. The intestinal tract is not distended. There is no free intraperitoneal air. There is no drainable fluid collection. There is no free pelvic fluid. There is no prominent bowel wall thickening. There is a small fat-containing left inguinal hernia. There are atherosclerotic calcifications. There is no identified abnormally enlarged lymph node in the abdomen or pelvis which meets CT size criteria for adenopathy. There are prior kyphoplasty changes at multiple levels. There are multilevel advanced degenerative changes of the spine. There is scoliosis. There is hardware in the right proximal femur which is incompletely imaged. There are concavities of the inferior endplates of L4, L3, and L2. There is mild height loss of L1, T11, and T9. Bony abnormality. IMPRESSION: CT ABDOMEN AND PELVIS. 1. No identified acute abnormality in the abdomen or pelvis. 2. Additional findings as described in detail above. Dictated by: Dictated on workstation # [id number]
--- NOTE | 2018-04-28 08:30 | Diagnostic Imaging Report ---
EXAMINATION: Chest radiograph, portable AP view. DATE: April 28, 2018 at 0307 hours. INDICATION: 78-year-old female, chest pain. Diarrhea. COMPARISON: December 14, 2017. FINDINGS: There is a right hilar prominence which does appear to be a change since December 14, 2017. The aorta may be tortuous. There is no identified pneumothorax. There is no large pleural effusion. There is no identified focal airspace consolidation. There are multilevel prior kyphoplasty changes. IMPRESSION: 1. Right hilar prominence which is an interval change since December 14, 2017. Dedicated CT chest with intravenous contrast is recommended to evaluate for possible mass and/or adenopathy. This also could be vascular in etiology. Dictated by: Dictated on workstation # [id number]
== END 2018-04-28 05:15 | disposition home or self-care (01) ==
LOC: EDUNIT# 01:57 → ER 01:58
DX: K52.9 Noninfective gastroenteritis and colitis, unspecified (principal); K43.9 Ventral hernia without obstruction or gangrene; N39.0 Urinary tract infection, site not specified; G47.30 Sleep apnea, unspecified; J44.9 Chronic obstructive pulmonary disease, unspecified; I25.10 Atherosclerotic heart disease of native coronary artery without angina pectoris; I25.2 Old myocardial infarction; E78.00 Pure hypercholesterolemia, unspecified; I10 Essential (primary) hypertension; G31.84 Mild cognitive impairment of uncertain or unknown etiology; G25.81 Restless legs syndrome; M81.0 Age-related osteoporosis without current pathological fracture; E03.9 Hypothyroidism, unspecified; F41.9 Anxiety disorder, unspecified; F32.9 Major depressive disorder, single episode, unspecified; D64.9 Anemia, unspecified; Z82.49 Family history of ischemic heart disease and other diseases of the circulatory system; Z87.440 Personal history of urinary (tract) infections; Z87.448 Personal history of other diseases of urinary system; Z79.891 Long term (current) use of opiate analgesic; Z86.718 Personal history of other venous thrombosis and embolism; Z79.51 Long term (current) use of inhaled steroids; Z79.02 Long term (current) use of antithrombotics/antiplatelets; Z79.52 Long term (current) use of systemic steroids; Z87.891 Personal history of nicotine dependence; Z93.3 Colostomy status; Z95.5 Presence of coronary angioplasty implant and graft; Z90.49 Acquired absence of other specified parts of digestive tract; Z90.710 Acquired absence of both cervix and uterus; Z86.711 Personal history of pulmonary embolism
CPT/HCPCS: 36415; 51702; 71045; 74176; 80053; 81000; 82150; 83605; 83690; 83735; 85025; 85610; 85730; 87040; 87077; 87088; 87186; 87804; 93041

== ENCOUNTER → 2018-05-15 | Outpatient (CLI) | payer MEDICARE, MEDICAID ==
[~2018-05-15] MED LIST changes: +AMOX-358 PO; +LACT1CAP8 PO
--- NOTE | 2018-05-15 12:13 | Diagnostic Imaging Report ---
CLINICAL INDICATION: Patient with low back pain and left hip and leg pain. EXAM: MRI of the lumbar spine performed without IV contrast. Sequences include coronal T2, sagittal T2, sagittal T2 fat-sat, sagittal T1, and axial T2. COMPARISON: MRI of the lumbar spine dated 09/18/2017. FINDINGS: There is a small area of high T2 signal involving the left L4 pedicle. There is no definite cortical disruption seen. This may represent a stress response or from degenerative changes. Otherwise, there is no other concern for acute fracture or dislocation involving the thoracolumbar spine. There are chronic compression deformities with kyphoplasty changes involving the T10, T12, and L5 vertebra. There are chronic compression deformities involving the inferior endplates of the L2, L3, and L4 vertebra. Stable chronic anterior wedge involving the T11 vertebra. The visualized portions of the distal thoracic spinal cord, conus medullaris, and cauda equina nerve roots are unremarkable. The conus medullaris tip is seen at the lower L2 vertebral body level. There is no significant paraspinal soft tissue abnormality. Again seen dextroscoliosis of the lumbar spine. There are multilevel hypertrophic vertebral body spurs, diffuse disc bulges, and facet arthropathy seen. T9-T10: There is no significant change to the diffuse disc bulge and bilateral facet arthropathy. There is at least moderate central canal narrowing, severe right neural foramen narrowing and moderate left neural foramen narrowing. T10-T11: There is bilateral facet arthropathy, mild ligamentum flavum buckling. There is no significant posterior disc bulge. There is zfwv-lf-iasvtaio right neural foramen narrowing and mild central canal narrowing. There is no significant left neural foramen narrowing. These findings are similar. T11-T12: There is a mild posterior disc bulge, severe right facet arthropathy and mild right facet arthropathy. There is mild central canal narrowing and rift-kl-qwjhivjy right neural foramen narrowing. There is no significant left neural foramen narrowing. T12-L1: There is a diffuse disc bulge with prominent right paracentral/subarticular disc herniation component. There is stable moderate facet arthropathy and ligamentum flavum buckling. There is cyngjkxg-on-pwbqej central canal narrowing. There is severe left neural foramen narrowing and qabd-cc-tdpuskup right neural foramen narrowing. L1-L2: There is a diffuse disc bulge with small right paracentral/subarticular disc herniation. There is moderate bilateral facet arthropathy and ligamentum flavum buckling. There is ehnljuzy-qx-uvckam central canal narrowing, severe left neural foramen narrowing, and syby-kf-sqxlmidc right neural foramen narrowing. L2-L3: Again seen diffuse disc bulge with hypertrophic far left disc spurs. There is fcnj-pd-btwlgyht bilateral facet arthropathy. There is stable mild central canal narrowing. There is mild right neural foramen narrowing and severe left neural foramen narrowing. L3-L4: There is stable severe bilateral facet arthropathy/hypertrophy and small disc bulge in the left subarticular region. There is severe left neural foramen narrowing and moderate right neural foramen narrowing which has slightly progressed on the right. There is nhhu-or-svgfalpt central canal narrowing which is stable. L4-L5: Stable rnfimyms-er-yyolju bilateral facet arthropathy. There is grade 1 anterolisthesis of L4 on L5 with diffuse disc bulge. There is severe left neural foramen narrowing and oher-lz-xavswreb right neural foramen narrowing which is stable. There is stable mild central canal narrowing. L5-S1: There is small posterior disc bulge and tqra-xv-agpujryb bilateral facet arthropathy. There is zmsntcng-fq-oxpdam right neural foramen narrowing and ytax-hi-fbbutniz left neural foramen narrowing. IMPRESSION: 1: There is a small area of marrow edema involving the left L4 pedicle and pars interarticularis region. There is no definite cortical disruption seen. This may represent a stress response or from degenerative changes. 2: There is otherwise no acute thoracolumbar spine fracture. There are stable multiple chronic compression fracture deformities throughout the thoracolumbar spine with kyphoplasty changes of the T10, T12, and L4 vertebra. 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 Dictated by: Dictated on workstation # [id number]
== END ==
LOC: RAD 09:18
PROVIDERS: ATTEND Orthopaedic Surgery
DX: M51.27 Other intervertebral disc displacement, lumbosacral region (principal); M48.07 Spinal stenosis, lumbosacral region; M46.87 Other specified inflammatory spondylopathies, lumbosacral region; M89.9 Disorder of bone, unspecified; M48.55XA Collapsed vertebra, not elsewhere classified, thoracolumbar region, initial encounter for fracture; M51.36 Other intervertebral disc degeneration, lumbar region; M41.86 Other forms of scoliosis, lumbar region; M43.16 Spondylolisthesis, lumbar region; Z98.1 Arthrodesis status
CPT/HCPCS: 72148

== ENCOUNTER 2018-06-06 09:39 | Outpatient (RCR) | payer MEDICARE, MEDICAID ==
[2018-06-07] MEDS ORDERED: VNL75T PO (09:18)
[2018-06-29] MEDS ORDERED: HYOS0.1283 SL (13:19)
[2018-06-29] MEDS ORDERED: ONDA8TAB13 PO (13:19)
[2018-06-29] MEDS ORDERED: LEVO500T2 PO (14:27)
== END 2018-06-22 13:20 | disposition home or self-care (01) ==
PROVIDERS: ATTEND Orthopaedic Surgery
DX: M54.5 Low back pain (principal); M54.6 Pain in thoracic spine

== ENCOUNTER 2018-06-07 05:37 | Outpatient (CLI) | payer MEDICARE, MEDICAID ==
[~2018-06-07] VITALS: Ht 157.5 cm; Wt 75.7 kg
[2018-06-07] MEDS ORDERED: VNL75T PO (09:18)
== END 2018-06-07 09:59 | disposition home or self-care (01) ==
LOC: PREOP 05:37
PROVIDERS: ATTEND Surgery
DX: Z01.818 Encounter for other preprocedural examination (principal)

== ENCOUNTER 2018-06-11 09:47 | Day surgery (SDC) | payer MEDICARE, MEDICAID ==
[~2018-06-11] VITALS: Ht 157.5 cm; Wt 75.7 kg
[~2018-06-11 09:47] MED LIST changes: +VNL75T PO
--- OUTSIDE RECORDS SUMMARY | 2018-06-11 09:52 | XMS REPORT | Clinical Summary ---
Author Author [facility] Organization [facility] Address Unknown Phone Unavailable Care Team Providers Care Data Steward Name Role Phone Donna Brown RN Unavailable Unavailable Michael Mandujano MD Unavailable Alfonso Lino DO Unavailable Alfonso Keith MD Unavailable Eliud Brewer MD PCP Source Comments Some departments are not documenting in the electronic medical record. If you do not see the information that you expected, contact Release of Information in the Health Information Management department at [phone] for further assistance in locating additional records.[facility] Allergies Comments Active Allergy Reactions [...] needed. Active fluticasone (FLONASE) 50 Apply 1 [place] 0 mcg/actuation nasal spray to each nostril [...] vaginally, 3x/wk at bedtime, as directed. Active fesoterodine ER(+) Take one 90 tablet 3 (TOVIAZ) 4 mg tablet tablet by 9 mouth daily. Do not cut/ crush/ chew 06/01/2018 Discontinued trospium ER(+) (SANCTURA Take one 90 capsule 3 XR) 60 mg capsule capsule by 9 mouth daily. Do not cut/ crush/ chew Active Problems Problem Noted Date Colostomy in place 07/31/2014 Parastomal hernia 07/31/2014 Chest pain 06/03/2009 HLD (hyperlipidemia) 06/03/2009 PE (pulmonary embolism) 06/03/2009 Urinary incontinence 06/03/2009 Overview: 2006: Coaptite injections by Dr. Alvarez x 2 (noted to have ISD on operative note) 07/2017: UDS by Dr. Mccormack ([place]): ISD, OAB, mixed incontinence 04/18/18: PE: Normal sensation b/l, + leak with very strong valsalva, no hypermobility, no prolapse, good levator tone, + atrophic vaginitis PVR: 38 cc Questionaires: MARGIE-6: 12 IIQ-7: 20 PISQ-12: #1 sometimes OAB-V8: 37 L ast Assessment & Plan: 77 y.o. female with h/o OAB, ISD who presents to re-establish with Dr. Alvarez. She is seen Dr. Mccormack, in [place], [place] who performed UDS and in 07/2017, [...] physical therapy if it is available in [place], [place]. All questions were answered and she is amenable to the plan. Vaginal Estrace cream 3 times weekly Discontinue Myrbetriq Start Trospium 60 XR daily PFPT with external referral to [facility] in 3-4 months Restless leg syndrome 06/03/2009 CAD (coronary artery disease) 06/03/2009 Overview: Hx of [place] 4 yrs ago Depression 06/03/2009 Arthritis 06/03/2009 Back pain 06/03/2009 Hypothyroidism 06/03/2009 Bursitis of knee 06/03/2009 Overview: R RAJI (obstructive sleep apnea) Overview: noncompliant with CPAP Encounters Care Team Description Date Type Specialty Darius Alvarez MD Medication Follow-up 06/01/2018 Telephone Urology Darius Alvarez MD Prior Authorization 04/19/2018 Telephone [...] Taken Vital Sign Reading 04/18/2018 1:17 PM REGIONAL PSYCHIATRIC DIRECTOR Blood Pressure 140/88 04/18/2018 1:17 PM REGIONAL PSYCHIATRIC DIRECTOR Pulse 59 10/13/2015 9:37 AM CDT Temperature 36.1 C (96.9 F) 09/08/2015 2:37 PM CDT Respiratory Rate 14 10/13/2015 9:37 AM CDT Oxygen Saturation 94% - Inhaled Oxygen - Concentration 04/18/2018 1:08 PM REGIONAL PSYCHIATRIC DIRECTOR Weight 78 kg (172 lb) 04/18/2018 1:08 PM REGIONAL PSYCHIATRIC DIRECTOR Height 157.5 cm (5' 2") 04/18/2018 1:08 PM REGIONAL PSYCHIATRIC DIRECTOR Body Mass Index 31.46 Plan of Treatment [...] 04/22/2004 (Quantity not on file) / / [id number]-67/7/2004 Stent Implanted: 01/27/2004 by Karina Rosales MD (Quantity not on file) Results Not on filefrom Last 3 Months Insurance Type Payer Benefit Subscriber ID Effective Phone Address Plan / Dates Group Medicare MEDICARE MEDICARE xxxxxxxxxx 1995- PART A AND Present B Medicaid [facility] MEDICAID [facility] xxxxxxxxxxx 2012-P [employer] [place] Advance Directives Patient has advance care planning documents on file. For more information, please contact: [facility] [address] [place] [address]
--- OUTSIDE RECORDS SUMMARY | 2018-06-11 09:52 | XMS REPORT | Encounter Summary ---
Author Author [facility] Organization [facility] Address Unknown Phone Unavailable Care Team Providers Care Manager Cardiac Name Role Phone Donna Brown RN Unavailable Unavailable Michael Mandujano MD Unavailable Alfonso Lino DO Unavailable Alfonso Keith MD Unavailable Eliud Brewer MD PCP Reason for Visit * Reason Comments Medication Follow-up Encounter Details Care Team Description Date Type Department Darius Alvarez MD [address] [facility] [address] [place] [address] Medication Follow-up 06/01/2018 Telephone [facility] [address] [place] [address] Social History Date Tobacco Use [...] Travel Start No recent travel history available. documented as of this encounter Functional Status Date [...] the patient have a cognitive impairment: No documented as of this encounter Miscellaneous Notes * Addendum Note - Aliza Stearns RN - 06/01/2018 4:37 PM CDT Addended by: ALIZA STEARNS on: 06/01/2018 04:37 PM Modules accepted: Orders * Telephone Encounter - Aliza Stearns RN - 06/01/2018 4:35 PM CDT Per note from Nirav Gomez PA-C, patient will stop the Myrbetriq and start on Toviaz 4mg once daily. She will keep her follow up appointment with Dr. Alvarez. Patient is aware of this information and that the medication has been sent to her pharmacy. She will call us if she has any other issues with getting this filled. * Telephone Encounter - Aliza Stearns RN - 06/01/2018 11:33 AM CDT Received denial of Trospium medication from the insurance company for this patient. Patient has tried: Oxybutynin ER - not effective Myrbetriq - Not working for her (currently taking 50mg once daily) Trospium - Denied by insurance Insurance stated that covered medications are: Oxybutynin ER Oxybutynin Toviaz Myrbetriq Please advise an alternative medication for this patient. documented in this encounter Plan of Treatment Not on filedocumented as of this encounter Visit Diagnoses Not on filedocumented in this encounter
--- OUTSIDE RECORDS SUMMARY | 2018-06-11 09:55 | XMS REPORT | Encounter Summary ---
Author Author [facility] Organization [facility] Address Unknown Phone Unavailable Care Team Providers Care Police Sergeant Precinct Name Role Phone Donna Brown RN Unavailable Unavailable Michael Mandujano MD Unavailable Alfonso Lino DO Unavailable Alfonso Keith MD Unavailable Eliud Brewer MD PCP Reason for Referral * Consult, Test & Treat (Routine) Referred By Contact Referred To Contact Status Reason Specialty Diagnoses / Procedures Darius Alvarez MD [address] [facility] [address] [place] [address] Closed Specialty Services Diagnoses Required Urge incontinence of urine Reason for Visit * Reason Comments Urinary Incontinence * Consult, Test & Treat (Routine) Referred By Contact Referred To Contact Status Reason Specialty Diagnoses / Procedures [facility] [address] [place] [address] Darius Alvarez MD [address] [facility] [address] [place] [address] No Auth Needed Urology Diagnoses New: incontinence, eval for botox / Medicare / recs attchd-Dr. Easton castro NEW PATIENT Encounter Details Care Team Description Date Type Department Darius Alvarez MD [address] [facility] [address] [place] [address] [phone] Urge incontinence of urine (Primary Dx) 04/18/2018 Office Visit [facility] [address] [place] [id number] Social History Date Tobacco Use Types Packs/Day [...] history available. documented as of this encounter Last Filed Vital Signs Time Taken Vital Sign Reading 04/18/2018 1:17 PM LEAD ESTHETICIAN Blood Pressure 140/88 04/18/2018 1:17 PM LEAD ESTHETICIAN Pulse 59 - Temperature - - Respiratory Rate - - Oxygen Saturation - - Inhaled Oxygen - Concentration 04/18/2018 1:08 PM LEAD ESTHETICIAN Weight 78 kg (172 lb) 04/18/2018 1:08 PM LEAD ESTHETICIAN Height 157.5 cm (5' 2") 04/18/2018 1:08 PM LEAD ESTHETICIAN Body Mass Index 31.46 documented in this encounter Functional Status Date of [...] impairment: No documented as of this encounter Patient Instructions * Patient Instructions* Ailyn Stearns RN - 04/18/2018 1:00 PM LEAD ESTHETICIAN [facility] [address] [place], [place] [facility] [address] [place] [facility] [address] [place], [place] [facility] [address] [place], [place] [facility] [address] [place], [place] [facility] [address] [place], [place] [facility] [address] [place] [address] [place], [place] [facility] [address] [place], [place] OUT PATIENT @ [facility] [address] [place], [place] [phone] [facility] [address] [place], [place] [facility] [address] [place] [facility] [address] [place], [place] [facility] [address] [place] [facility] [address] [address] [facility] [address] [place], [place] [facility] [address] [place] [address] PH FAX [facility] [address] [place], [place] [facility] [address] [place], [place] [facility] [address] [place] [address] Fingertip Application Method For Estrogen [...] tip amount as noted above. Figure 2 ESTHETICIAN documented in this encounter Progress Notes * Darius Alvarez MD - 04/18/2018 1:00 PM LEAD ESTHETICIAN UROLOGY CLINIC NOTE Date of Service: 04/18/2018 Subjective: History of Present IllnessApril Gomez is a 77 y.o. female with h/o OAB, ISD who presents to re-establish with Dr. Alvarez. She is seen Dr. Mccormack, in [place], [place] who performed UDS and in 07/2017, reporting OAB and ISD. The patient has previously seen Dr. Alvarez and underwent Coaptite injections x2 in 2005. Since that time she states that she has had worsening incontinence. She wears 4 depends daily and reports incontinence with standing and urgency. She denies leaking with coughing and sneezing. She reports nocturia x3 with some incontinence at night as well. She denies sensation of incomplete emptying , however does report straining with bowel movements. She drinks 1 cup of coffee in the morning, swing water throughout the day, soda, and takes water to bed. She has been on Myrbetriq for the last 3 months with minimal improvement in her symptoms and was referred for Botox injections. Over the last 2 weeks she reports dysuria and vague pelvic pain. She denies family history of genitourinary cancers, denies a history or hematuria. She states that she has cardiac clearance for surgery by her sales & service associate in [place], Dr. Rosales. She states that she does not want a sling, but believes that she has had Botox previously which helped her symptoms. Questionaires: MARGIE-6: 12 IIQ-7: 20 PISQ-12: #1 sometimes OAB-V8: 37 Past Medical History: Diagnosis Date Arrhythmia Arthritis 06/03/2009 Asthma Back pain 06/03/2009 Bursitis of knee 06/03/2009 CAD (coronary artery disease) 06/03/2009 Chest pain 06/03/2009 Coronary artery disease 2007 per pt report, stent placement X 2 Deep vein thrombosis (DVT) (HCC) 2006 Depression 06/03/2009 Gastrointestinal disorder Diverticulitis GERD (gastroesophageal reflux disease) HLD (hyperlipidemia) 06/03/2009 Hypertension Hypothyroidism 06/03/2009 On supplemental oxygen therapy RAJI (obstructive sleep apnea) noncompliant with CPAP Osteoporosis Other emphysema (HCC) PE (pulmonary embolism) 06/03/2009 Pulmonary embolism (HCC) 2006 Restless leg syndrome 06/03/2009 Stomach disorder needs esophageal dilitation periodically Urinary incontinence 06/03/2009 Urinary tract infection Past Surgical History: Procedure Laterality Date HX APPENDECTOMY 1964 HX HYSTERECTOMY 1992 plus ovaries CATARACT REMOVAL WITH IMPLANT Bilateral 04/22/2004 HX VERTEBROPLASTY 2015 lumbar COLOSTOMY 01/27/2015 COLON SURGERY COLONOSCOPY ~2012 HEART CATHETERIZATION 2003, 2012 x2 stent HERNIA REPAIR Family History Problem Relation Age of Onset Hypertension Brother Hypertension Maternal Grandmother Hypertension Maternal Grandfather Current Outpatient Medications Medication Sig Dispense Refill albuterol (PROAIR HFA) 90 mcg/actuation inhaler Inhale 2 Puffs by mouth into the lungs daily as needed for Wheezing or Shortness of Breath. Shake well before use. Aspirin 81 mg Tab Take 1 Tab by mouth Daily. 1 Tab 0 clopidogrel (PLAVIX) 75 mg Tab Take 75 mg by mouth Daily. cycloSPORINE (RESTASIS) 0.05 % ophthalmic emulsion Place 1 Drop into or around eye(s) daily as needed. dicyclomine (BENTYL) 10 mg capsule Take 10 mg by mouth four times daily. duloxetine DR (CYMBALTA) 60 mg capsule Take 60 mg by mouth daily. estradiol (ESTRACE) 0.01 % (0.1 mg/g) vaginal cream Insert or Apply one g to vaginal area three times weekly. Apply 1 finger tip amount (1 g) of cream vaginally, 3x/wk at bedtime, as directed. 42.5 g 11 ezetimibe (ZETIA) 10 mg tablet Take 10 mg by mouth Daily. fluticasone (FLONASE) 50 mcg/actuation nasal spray Apply 1 [place] to each nostril as directed daily as needed. Shake bottle gently before using. gabapentin (NEURONTIN) 300 mg capsule Take 900 mg by mouth twice daily. lactulose 10 gram/15 mL oral solution Take 20 g by mouth daily as needed. levothyroxine (SYNTHROID) 112 mcg tablet Take 100 mcg by mouth daily. LORazepam (ATIVAN) 1 mg tablet Take 1 mg by mouth at bedtime daily. metoclopramide (REGLAN) 10 mg tablet Take 10 mg by mouth daily as needed. metoprolol XL (TOPROL XL) 50 mg tablet Take 50 mg by mouth daily. nitroglycerin (NITROSTAT) 0.[address] 1 Tab under tongue As Needed for Chest Pain. give x 3 doses and then call physician [address],+, (PROTONIX) 40 mg tablet Take 1 Tab by mouth Daily. Please take Protonix while on Plavix 30 Tab 3 pregabalin (LYRICA) 150 mg capsule Take 150 mg by mouth daily. rOPINIRole (REQUIP) 4 mg tablet Take 8 mg by mouth at bedtime daily. temazepam (RESTORIL) 30 mg capsule Take 30 mg by mouth at bedtime as needed. trospium ER(+) (SANCTURA XR) 60 mg capsule Take one capsule by mouth daily. Do not cut/ crush/ chew 90 capsule 3 No current facility-administered medications for this visit. Allergies Allergen Reactions Levofloxacin Allergy recorded in SMS: LEVOFLOXACIN~Reactions: ARM SWELLING Social History Socioeconomic History Marital status: Single Spouse name: Not on file Number of children: Not on file Years of education: Not on file Highest education level: Not on file Social Needs Financial resource strain: Not on file Food insecurity - worry: Not on file Food insecurity - inability: Not on file Transportation needs - medical: Not on file Transportation needs - non-medical: Not on file Occupational History Not on file Tobacco Use Smoking status: Former Smoker Packs/day: 0.10 Years: 10.00 Pack years: 1.00 Last attempt to quit: 10/13/2003 Years since quittin.5 Smokeless tobacco: Never Used Substance and Sexual Activity Alcohol use: No Alcohol/week: 0.0 oz Drug use: No Sexual activity: No Other Topics Concern Not on file Social History Narrative Not on file Review of Systems Constitutional: Positive for fatigue and unexpected weight change. Negative for activity change, appetite change, chills, diaphoresis and fever. HENT: Negative for congestion, hearing loss, mouth sores and sinus pressure. Eyes: Positive for visual disturbance. Respiratory: Positive for shortness of breath. Negative for apnea, cough and chest tightness. Cardiovascular: Positive for leg swelling. Negative for chest pain and palpitations. Gastrointestinal: Positive for abdominal pain. Negative for blood in stool, constipation, diarrhea, nausea, rectal pain and vomiting. Genitourinary: Positive for dysuria, enuresis, urgency and vaginal pain. Negative for decreased urine volume, difficulty urinating, flank pain, frequency , genital sores and hematuria. Musculoskeletal: Positive for back pain, gait problem and myalgias. Negative for arthralgias. Skin: Negative for rash and wound. Neurological: Positive for tremors and weakness. Negative for dizziness, seizures, syncope, light-headedness, numbness and headaches. Hematological: Negative for adenopathy. Bruises/bleeds easily. Psychiatric/Behavioral: Positive for decreased concentration and dysphoric mood. The patient is nervous/anxious. Objective: albuterol (PROAIR HFA) 90 mcg/actuation inhaler Inhale 2 Puffs by mouth into the lungs daily as needed for Wheezing or Shortness of Breath. Shake well before use. Aspirin 81 mg Tab Take 1 Tab by mouth Daily. clopidogrel (PLAVIX) 75 mg Tab Take 75 mg by mouth Daily. cycloSPORINE (RESTASIS) 0.05 % ophthalmic emulsion Place 1 Drop into or around eye(s) daily as needed. dicyclomine (BENTYL) 10 mg capsule Take 10 mg by mouth four times daily. duloxetine DR (CYMBALTA) 60 mg capsule Take 60 mg by mouth daily. estradiol (ESTRACE) 0.01 % (0.1 mg/g) vaginal cream Insert or Apply one g to vaginal area three times weekly. Apply 1 finger tip amount (1 g) of cream vaginally, 3x/wk at bedtime, as directed. ezetimibe (ZETIA) 10 mg tablet Take 10 mg by mouth Daily. fluticasone (FLONASE) 50 mcg/actuation nasal spray Apply 1 [place] to each nostril as directed daily as needed. Shake bottle gently before using. gabapentin (NEURONTIN) 300 mg capsule Take 900 mg by mouth twice daily. lactulose 10 gram/15 mL oral solution Take 20 g by mouth daily as needed. levothyroxine (SYNTHROID) 112 mcg tablet Take 100 mcg by mouth daily. LORazepam (ATIVAN) 1 mg tablet Take 1 mg by mouth at bedtime daily. metoclopramide (REGLAN) 10 mg tablet Take 10 mg by mouth daily as needed. metoprolol XL (TOPROL XL) 50 mg tablet Take 50 mg by mouth daily. nitroglycerin (NITROSTAT) 0.[address] 1 Tab under tongue As Needed for Chest Pain. give x 3 doses and then call physician pantoprazole DR,+, (PROTONIX) 40 mg tablet Take 1 Tab by mouth Daily. Please take Protonix while on Plavix pregabalin (LYRICA) 150 mg capsule Take 150 mg by mouth daily. rOPINIRole (REQUIP) 4 mg tablet Take 8 mg by mouth at bedtime daily. temazepam (RESTORIL) 30 mg capsule Take 30 mg by mouth at bedtime as needed. trospium ER(+) (SANCTURA XR) 60 mg capsule Take one capsule by mouth daily. Do not cut/ crush/ chew Vitals: 04/18/18 1308 04/18/18 1317 BP: (!) 149/94 140/88 Pulse: 60 59 Weight: 78 kg (172 lb) Height: 157.5 cm (62") Body mass index is 31.46 kg/m. Physical Exam Constitutional: She is oriented to person, place, and time. She appears well- developed and well-nourished. No distress. HENT: Head: Normocephalic and atraumatic. Right Ear: External ear normal. Left Ear: External ear normal. Eyes: EOM are normal. Right eye exhibits no discharge. Left eye exhibits no discharge. Neck: Normal range of motion. No JVD present. No tracheal deviation present. Cardiovascular: Normal rate and regular rhythm. Pulmonary/Chest: Effort normal. No respiratory distress. Abdominal: Soft. She exhibits no distension. Genitourinary: Genitourinary Comments: Normal sensation b/l, - leak, - prolapse, - atrophy, appropriately estrogenized Musculoskeletal: Normal range of motion. Neurological: She is alert and oriented to person, place, and time. Skin: She is not diaphoretic. Psychiatric: She has a normal mood and affect. Her behavior is normal. Judgment and thought content normal. Assessment and Plan: Problem Urinary Incontinence 2005: Coaptite injections by Dr. Alvarez x 2 (noted to have ISD on operative note) 07/2017: UDS by Dr. Mccormack ([place]): ISD, OAB, mixed incontinence 04/18/18: PE: Normal sensation b/l, + leak with very strong valsalva, no hypermobility, no prolapse, good levator tone, + atrophic vaginitis PVR: 38 cc Questionaires: MARGIE-6: 12 IIQ-7: 20 PISQ-12: #1 sometimes OAB-V8: 37 Urinary incontinence 77 y.o. female with h/o OAB, ISD who presents to re-establish with Dr. Alvarez. She is seen Dr. Mccormack, in [place], [place] who performed UDS and in 2017, [...] physical therapy if it is available in [place], [place]. All questions were answered and she is amenable to the plan. Vaginal Estrace cream 3 times weekly Discontinue Myrbetriq Start Trospium 60 XR daily PFPT with external referral to [place], [place] RTC in 3-4 months Patient seen and discussed with Dr. Alvarez, who directed plan of care. Kwabena Lawrence MD PGY-1 Orders Placed This Encounter AMB REFERRAL TO PELVIC FLOOR REHAB estradiol (ESTRACE) 0.01 % (0.1 mg/g) vaginal cream trospium ER(+) (SANCTURA XR) 60 mg capsule STAFF NOTE History and examination reviewed and guthrie elements confirmed. Discussed in detail with the patient and questions answered. Ms. Gomez presents to clinic as outlined. History of urinary urgency, frequency and incontinence. She is having recurrent symptoms as outlined. She is bothered by symptoms. Will try starting Trospium 60 mg XR daily to see if this will help with symptoms. She was counseled about behavioral therapies. We reviewed behavioral treatments in detail including options such as pelvic floor exercise, urge suppression methods, timed voiding, diet modification, hydration, and prevention and treatment of constipation. Provided written instruction materials. PVR by ultrasound today=38 mL She was given information on working with a physical therapist and a prescription for this. Vaginal estrogen. Will RTC in about 3 months or sooner for problems. I personally saw and evaluated the patient and determined the plan of care. I personally performed the guthrie portions of the E&M visit, discussed the case with the resident, and concur with resident documentation of history, physical examination, assessment, and treatment plan unless otherwise noted. Darius Alvarez MD, MPH documented in this encounter Plan of Treatment Order Schedule Name Priority Associated Diagnoses Ordered: 04/18/2018 AMB REFERRAL TO PELVIC FLOOR REHAB Routine Urge incontinence of urine documented as of this encounter Visit Diagnoses Diagnosis Urge incontinence of urine - Primary Urge incontinence * Assessment & Plan Note - Kwabena Lawrence MD - 04/18/2018 3:26 PM LEAD ESTHETICIAN Associated Problem(s): Urinary incontinence 77 y.o. female with h/o OAB, ISD who presents to re-establish with Dr. Alavrez. She is seen Dr. Mccormack, in [place], [place] who performed UDS and in 2017, [...] physical therapy if it is available in [place], [place]. All questions were answered and she is amenable to the plan. Vaginal Estrace cream 3 times weekly Discontinue Myrbetriq Start Trospium 60 XR daily PFPT with external referral to [place] RTC in 3-4 months ESTHETICIAN documented in this encounter
[2018-06-11 10:00] VITALS: BP 139/99
[2018-06-11] MEDS ORDERED: LACTATED RINGERS 1,000 ML IV ONE (10:00)
[2018-06-11] MEDS ORDERED: LACTATED RINGERS 1,000 ML IV STA (10:31)
[2018-06-11] MEDS ORDERED: HURRICAINE EXT TUBE (BENZOCAINE) ONE (10:41)
[2018-06-11] MEDS ORDERED: proPOfol 200 MG/20 ML (DIPRIVAN) VIAL IV ONE (10:42)
[2018-06-11] MEDS ORDERED: HURRICAINE EXT TUBE (BENZOCAINE) XX PRN (10:45)
--- NOTE | 2018-06-11 10:47 | Progress Note-Pre Operative ---
Pre-Operative Progress Note H&P Reviewed The H&P was reviewed, patient examined and no changes noted. Time Seen by Provider: 10:44 Date H&P Reviewed: Jun 11, 2018 Time H&P Reviewed: 10:45 Pre-Operative Diagnosis: Dysphagia, hx ulcer LEXUS NELSON DO Jun 11, 2018 10:47
--- NOTE | 2018-06-11 11:16 | Progress Note-Post Operative ---
Post-Operative Progess Note Surgeon (s)/Evaporator Supervisor (s) Surgeon LEXUS NELSON DO Evaporator Supervisor: none Pre-Operative Diagnosis Dysphagia, hx ulcer Post-Operative Diagnosis Dysphagia Esophageal ulcer gastritis Procedure & Operative Findings Date of Procedure 06/11/18 Procedure Performed/Findings EGD with bx Anesthesia Type IV sedation by RERECORDING MIXER Estimated Blood Loss Estimated blood loss (mL): scant Specimens/Packing Specimens Removed Antral bx Body of stomach bx Esophageal bx x 2 LEXUS NELSON DO Jun 11, 2018 11:16
--- NOTE | 2018-06-11 11:18 | Endoscopy Discharge Instruct ---
Endo Procedure/Findings Findings 1.: Gastritis 2.: Hiatal Hernia 3.: Other Findings (Esophageal Ulcer with twist at bottom of esophagus) Discharge Instructions - Activity: You might feel a little sleepy until tomorrow. This is due to the medicine you received to relax you. Until tomorrow, you should: NOT drive a car, operate machinery or power tools. NOT drink any alcoholic beverages. NOT make any important decisions or sign importortant papers. Do not return to work until tomorrow, unless otherwise instructed. Resume previous activities tomorrow. Diet: Start by taking liquids. If you tolerate liquids, advance to solid food. make an appointment for one week Notify Physician - If you experience excessive bleeding, unusual abdominal pain, fever, or chest pain, contact your doctor immediately. Follow-Up: - I have received and understand the above instructions and will call my doctor if I have any further questions. Patient Signature Date Nurse Signature Other (Relationship) LEXUS NELSON DO Jun 11, 2018 11:18
--- NOTE | 2018-06-11 11:32 | Anesthesia-General Post-Op ---
MAC Patient Condition Mental Status/LOC: Same as Preop Cardiovascular: Satisfactory Nausea/Vomiting: Absent Respiratory: Satisfactory Pain: Controlled Complications: Absent Post Op Complications Complications None Follow Up Care/Instructions Patient Instructions None needed. Anesthesiology Discharge Order Discharge Order Patient is doing well, no complaints, stable vital signs, no apparent adverse anesthesia problems. No complications reported per nursing. STACI ADAMS CRNA Jun 11, 2018 11:32
[2018-06-11 11:35] VITALS: BP 140/72
[2018-06-11 12:05] VITALS: BP 137/89
[2018-06-11 12:20] VITALS: BP 137/89
--- NOTE | 2018-06-12 02:30 | OPERATIVE REPORT ---
DATE OF SERVICE: PREOPERATIVE DIAGNOSES: Dysphagia, possible esophageal ulcer, history of esophageal candidiasis. POSTOPERATIVE DIAGNOSES: Esophageal ulcer, gastritis, small hiatal hernia. SPECIMEN: One biopsy from the antrum, one biopsy from the distal esophagus. BLOOD LOSS: Scant. FLUIDS: Per anesthesia. POSTOPERATIVE CONDITION: Stable. INDICATION FOR PROCEDURE: The patient is an 78-year-old female who has been having increase in trouble swallowing. States she had dilatation in the past. Old reports showed that she had an ulcer that was biopsied, which was benign and some brushings were showed Nani. FINDINGS: The patient had some mild gastritis, had what looked like an ulcer at the base of the esophagus and probably a twist at the base of the esophagus, which may have been making it hard to get into the stomach, but no other obvious pathology. PROCEDURE NOTE: After informed consent was obtained, the patient was brought to the endoscopy suite and placed in bed in the left lateral decubitus position. She was administered IV sedation by the PROP MAKING SUPERVISOR then monitored her vitals the entire time, heart rate, blood pressure and pulse ox and the scope was inserted down the mouth through the esophagus into the stomach down to the base of the esophagus looked like there were some ulcers healed and then it looked like almost the esophagus twisted little bit, took a turn able to get into the stomach. Took a picture of the antrum, there was some mild gastritis, pushed into the small intestine looked normal. Did a biopsy of the body of the stomach as well as at the antrum and then pulled back and did 2 biopsies just above the GE junction where looked like he saw these ulcers. The rest of the esophagus looked fine. There were no strictures or pathology to explain the dysphagia. At this point then pulled the scope up the esophagus and out the mouth. The patient tolerated procedure. She was recovered in endoscopy suite. Job ID: [id number] DocumentID: [id number] Dictated Date: 06/11/2018 18:46:18 Weatherseal Technician Date: 06/12/2018 02:30:10 Dictated By: LEXUS NELSON DO
== END 2018-06-11 12:20 | disposition home or self-care (01) ==
LOC: ENDO 09:47
PROVIDERS: ATTEND Surgery
DX: K22.10 Ulcer of esophagus without bleeding (principal); K29.50 Unspecified chronic gastritis without bleeding; K44.9 Diaphragmatic hernia without obstruction or gangrene; M48.061 Spinal stenosis, lumbar region without neurogenic claudication; G47.33 Obstructive sleep apnea (adult) (pediatric); I10 Essential (primary) hypertension; E78.5 Hyperlipidemia, unspecified; K21.9 Gastro-esophageal reflux disease without esophagitis; F32.9 Major depressive disorder, single episode, unspecified; I25.10 Atherosclerotic heart disease of native coronary artery without angina pectoris; F41.9 Anxiety disorder, unspecified; Z87.891 Personal history of nicotine dependence; Z95.5 Presence of coronary angioplasty implant and graft; Z86.718 Personal history of other venous thrombosis and embolism; Z86.711 Personal history of pulmonary embolism; Z79.899 Other long term (current) drug therapy

== ENCOUNTER → 2018-06-22 | Outpatient (CLI) | payer MEDICARE, MEDICAID ==
--- NOTE | 2018-06-22 13:14 | Diagnostic Imaging Report ---
Indication: Right knee pain 3 views of right knee shows mild narrowing of the medial tibial femoral joint space with small osteophyte forming along the medial edge. There is no fracture, dislocation or pathologic effusion. Impression: Mild degenerative change medial compartment of the right knee. Dictated by: Dictated on workstation # [id number]
--- NOTE | 2018-06-22 13:15 | Diagnostic Imaging Report ---
Indication: Abdominal pain There are postop changes from ventral hernia repair. Patient's had kyphoplasty at multiple levels of the thoracic and lumbar spine. There are postop changes from internal fixation of the right hip. There is moderate amount of stool in the colon. Bowel gas pattern is normal. There are no pathologic masses or calcifications seen. Impression: Fecal stasis. No acute abnormalities seen. Dictated by: Dictated on workstation # [id number]
== END ==
LOC: RAD 11:37
PROVIDERS: ATTEND Internal Medicine
DX: K56.41 Fecal impaction (principal); R19.7 Diarrhea, unspecified; M17.11 Unilateral primary osteoarthritis, right knee; Z98.890 Other specified postprocedural states
CPT/HCPCS: 73562; 74018

== ENCOUNTER → 2018-06-29 | Emergency (ER) | payer MEDICARE, MEDICAID ==
[~2018-06-29] VITALS: Ht 157.5 cm; Wt 74.8 kg
[~2018-06-29] MED LIST changes: +HYOSCYAMINE 0.125 MG (LEVSIN) TAB PO ONE; +KETOROLAC 30 MG/ML VIAL IVP ONE; +LACTATED RINGERS 1,000 ML IV SCH; +LEVO500T2 PO; +ONDANSETRON 4 MG/2 ML (SDV) Z0FRAN IVP ONE; +diphenhydrAMINE 50 MG/ML INJ (BENADRYL) IVP ONE
--- OUTSIDE RECORDS SUMMARY | 2018-06-29 12:13 | XMS REPORT | Encounter Summary ---
Author Author [facility] Organization [facility] Address Unknown Phone Unavailable Care Team Providers Care Lapel Padder Name Role Phone Donna Brown RN Unavailable Unavailable Michael Mandujano MD Unavailable Alfonso Lino DO Unavailable Alfonso Keith MD Unavailable Eliud Brewer MD PCP Reason for Visit * Reason Comments Medication Follow-up Encounter Details Care Team Description Date Type Department Darius Alvarez MD [address] Ortho/Med Pavilion [address] [place] [address] Medication Follow-up 06/01/2018 Telephone [facility] [address] [place] [address] Social History Date Tobacco Use [...]
--- OUTSIDE RECORDS SUMMARY | 2018-06-29 12:13 | XMS REPORT | Encounter Summary ---
Author Author [facility] Organization [facility] Address Unknown Phone Unavailable Care Team Providers Care Soyfreeze Operator Name Role Phone Donna Brown RN Unavailable Unavailable Michael Mandujano MD Unavailable Alfonso Lino DO Unavailable Alfonso Keith MD Unavailable Eliud Brewer MD PCP Reason for Referral * Consult, Test & Treat (Routine) Referred By Contact Referred To Contact Status Reason Specialty Diagnoses / Procedures Darius Alvarez MD [address] Ortho/Med Pavilion [address] [place] [address] Closed Specialty Services Diagnoses Required Urge incontinence of urine Reason for Visit * Reason Comments Urinary Incontinence * Consult, Test & Treat (Routine) Referred By Contact Referred To Contact Status Reason Specialty Diagnoses / Procedures [facility] [address] [place] [address] Darius Alvarez MD [address] Ortho/Med Pavilion [address] [place] [address] No Auth Needed Urology Diagnoses New: incontinence, eval for botox / Medicare / recs attchd-Dr. Easton castro NEW PATIENT Encounter Details Care Team Description Date Type Department Darius Alvarez MD [address] Ortho/Med Pavilion [address] [place] [address] [phone] Urge incontinence of urine (Primary Dx) 04/18/2018 Office Visit [facility] [address] [place] [id number] Social History Date Tobacco Use Types Packs/Day [...] Taken Vital Sign Reading 04/18/2018 1:17 PM FIRE LOSS PREVENTION ENGINEER Blood Pressure 140/88 04/18/2018 1:17 PM FIRE LOSS PREVENTION ENGINEER Pulse 59 - Temperature - - Respiratory Rate - - Oxygen Saturation - - Inhaled Oxygen - Concentration 04/18/2018 1:08 PM FIRE LOSS PREVENTION ENGINEER Weight 78 kg (172 lb) 04/18/2018 1:08 PM FIRE LOSS PREVENTION ENGINEER Height 157.5 cm (5' 2") 04/18/2018 1:08 PM FIRE LOSS PREVENTION ENGINEER Body Mass Index 31.46 documented in this [...] Ailyn Stearns RN - 04/18/2018 1:00 PM FIRE LOSS PREVENTION ENGINEER [facility] [address] [place], [place] [facility] [address] [place], [place] [facility] [address] [place], [place] [facility] [address] [place], [place] [facility] [address] [place], [place] [facility] [address] [place], [place] [facility] [address] [place], [place] [address] [place], [place] [facility] [address] [place], [place] OUT PATIENT @ [facility] [address] [place], [place] [phone] [facility] [address] [place], [place] [facility] [address] [place], [place] [facility] [address] [place], [place] [facility] [address] [place] [facility] [address] [address] [place], [place] [facility] [address] [place], [place] [facility] [address] [place] [address] PH FAX [facility] [address] [place], [place] [facility] [address] [place], [place] [facility] [address] [place] [address] Fingertip Application Method For Estrogen [...] tip amount as noted above. Figure 2 LOSS PREVENTION ENGINEER documented in this encounter Progress Notes * Darius Alvarez MD - 04/18/2018 1:00 PM FIRE LOSS PREVENTION ENGINEER UROLOGY CLINIC NOTE Date of Service: 04/18/2018 Subjective: History of Present IllnessApril Gomze is a 77 y.o. female with h/o OAB, ISD who presents to re-establish with Dr. Alvarez. She is seen Dr. Mccormack, in [place], [place] who performed UDS and in 07/2017, [...] has cardiac clearance for surgery by her die repair in [place], Dr. Rosales. She states that she does [...] (FLONASE) 50 mcg/actuation nasal spray Apply 1 Crowley to each nostril as directed daily as [...] (FLONASE) 50 mcg/actuation nasal spray Apply 1 [place] to each nostril as directed daily as [...] operative note) 07/2017: UDS by Dr. Mccormack ([place]): ISD, OAB, mixed incontinence 04/18/18: PE: Normal sensation b/l, + leak with very strong valsalva, no hypermobility, no prolapse, good levator tone, + atrophic vaginitis PVR: 38 cc Questionaires: MARGIE-6: 12 IIQ-7: 20 PISQ-12: #1 sometimes OAB-V8: 37 Urinary incontinence 77 y.o. female with h/o OAB, ISD who presents to re-establish with Dr. Alvarez. She is seen Dr. Mccormack, in [place], [place] who performed UDS and in 2017, [...] physical therapy if it is available in [place], [place]. All questions were answered and she is amenable to the plan. Vaginal Estrace cream 3 times weekly Discontinue Myrbetriq Start Trospium 60 XR daily PFPT with external referral to [place], [place] RTC in 3-4 months Patient seen [...] Kwabena Lawrence MD - 04/18/2018 3:26 PM FIRE LOSS PREVENTION ENGINEER Associated Problem(s): Urinary incontinence 77 y.o. female with h/o OAB, ISD who presents to re-establish with Dr. Alvarez. She is seen Dr. Mccormack, in [place], [place] who performed UDS and in 2017, [...] physical therapy if it is available in [place], [place]. All questions were answered and she is amenable to the plan. Vaginal Estrace cream 3 times weekly Discontinue Myrbetriq Start Trospium 60 XR daily PFPT with external referral to [place] RTC in 3-4 months LOSS PREVENTION ENGINEER documented in this encounter
--- OUTSIDE RECORDS SUMMARY | 2018-06-29 12:13 | XMS REPORT | Encounter Summary ---
Author Author [facility] Organization [facility] Address Unknown Phone Unavailable Care Team Providers Care Canvas Worker Name Role Phone Donna Brown RN Unavailable Unavailable Michael Mandujano MD Unavailable Alfonso Lino DO Unavailable Alfonso Keith MD Unavailable Eliud Brewer MD PCP Reason for Visit * Reason Comments Prior Authorization Encounter Details Care Team Description Date Type Department Darius Alvarez MD [address] Ortho/Med Pavilion [address] [place] [address] Prior Authorization 04/19/2018 Telephone [facility] [address] [place] [address] Social History Date Tobacco Use [...] - Isabella Moraes - 04/19/2018 3:48 PM SPORTS MARKETING INTERNSHIP Pt needs PA for trospium started. Call routed to MD Alvarez's nurse. [employer] documented in this encounter Plan of Treatment Not on filedocumented as of this encounter Visit Diagnoses Not on filedocumented in this encounter
--- OUTSIDE RECORDS SUMMARY | 2018-06-29 12:13 | XMS REPORT | Clinical Summary ---
Author Author [facility] Organization [facility] Address Unknown Phone Unavailable Care Team Providers Care Site Safety Coordinator Name Role Phone Donna Brown RN Unavailable Unavailable Michael Mandujano MD Unavailable Alfonso Lino DO Unavailable Alfonso Keith MD Unavailable Eliud Brewer MD PCP Source Comments Some departments are not documenting in the electronic medical record. If you do not see the information that you expected, contact Release of Information in the Health Information Management department at [phone] for further assistance in locating additional records.[facility] Allergies Comments Active Allergy Reactions Severity Noted [...] needed. Active fluticasone (FLONASE) 50 Apply 1 [place] 0 mcg/actuation nasal spray to each nostril [...] operative note) 07/2017: UDS by Dr. Mccormack ([place]): ISD, OAB, mixed incontinence 04/18/18: PE: Normal sensation b/l, + leak with very strong valsalva, no hypermobility, no prolapse, good levator tone, + atrophic vaginitis PVR: 38 cc Questionaires: MARGIE-6: 12 IIQ-7: 20 PISQ-12: #1 sometimes OAB-V8: 37 L ast Assessment & Plan: 77 y.o. female with h/o OAB, ISD who presents to re-establish with Dr. Alvarez. She is seen Dr. Mccormack, in [place], [place] who performed UDS and in 07/2017, [...] physical therapy if it is available in [place], [place]. All questions were answered and she is amenable to the plan. Vaginal Estrace cream 3 times weekly Discontinue Myrbetriq Start Trospium 60 XR daily PFPT with external referral to [facility] [place] [facility] in 3-4 months Restless leg syndrome 06/03/2009 CAD (coronary artery disease) 06/03/2009 Overview: Hx of [place] 4 yrs ago Depression 06/03/2009 Arthritis 06/03/2009 [...] Taken Vital Sign Reading 04/18/2018 1:17 PM GUEST EXPERIENCE MANAGER Blood Pressure 140/88 04/18/2018 1:17 PM GUEST EXPERIENCE MANAGER Pulse 59 10/13/2015 9:37 AM CDT Temperature 36.1 C (96.9 F) 09/08/2015 2:37 PM CDT Respiratory Rate 14 10/13/2015 9:37 AM CDT Oxygen Saturation 94% - Inhaled Oxygen - Concentration 04/18/2018 1:08 PM GUEST EXPERIENCE MANAGER Weight 78 kg (172 lb) 04/18/2018 1:08 PM GUEST EXPERIENCE MANAGER Height 157.5 cm (5' 2") 04/18/2018 1:08 PM GUEST EXPERIENCE MANAGER Body Mass Index 31.46 Plan of Treatment Health Maintenance Due Date Last Done Comments PHYSICAL (COMPREHENSIVE) 1945 EXAM DTAP/TDAP VACCINES (1 - 1956 Tdap) SHINGLES RECOMBINANT 1988 VACCINE (1 of 2) OSTEOPOROSIS 04/27/2003 SCREENING/MONITORING PNEUMONIA (PCV13/PPSV23) 04/27/2003 VACCINES (1 of 2 - PCV13) INFLUENZA VACCINE 11/20/2018 12/14/2017 Implants Device Identifier Shelf Expiration Date Model / Serial / Lot Implanted Type Area Manufactur er / / [id number] Lens-04/22/2004 Other Implanted: 04/22/2004 (Quantity not on file) / / [id number]-19/7/2004 Stent Implanted: 01/27/2004 by Karina Rosales MD (Quantity not on file) Results Not on filefrom Last 3 Months Insurance Type Payer Benefit Subscriber ID Effective Phone Address Plan / Dates Group Medicare MEDICARE MEDICARE xxxxxxxxxx 1995- PART A AND Present B Medicaid [facility] MEDICAID [facility] xxxxxxxxxxx [id number] [employer] Advance Directives Patient has advance care planning documents on file. For more information, please contact: [facility] [address] [place] [address]
--- NOTE | 2018-06-29 12:19 | ED Abdominal Pain ---
General Chief Complaint: Abdominal/GI Problems Stated Complaint: N/D Source of Information: Patient Exam Limitations: No Limitations History of Present Illness Date Seen by Provider: June 29, 2018 Time Seen by Provider: 12:16 Initial Comments To ER per EMS from home with reports of abdominal distention nausea vomiting and diarrhea. The symptoms began about one week ago. Timing/Duration: 1 Week Severity/Quality: Cramping Location: Generalized Abdomen Radiation: No Radiation Activities at Onset: None Associated Symptoms: Nausea/Vomiting Allergies and Home Medications Allergies Coded Allergies: No Known Drug Allergies (Unverified , 06/10/15) Home Medications Albuterol Sulfate 18 Gm Hfa.aer.ad, 2 PUFF IH Q6H PRN for WHEEZING, (Reported) Aspirin 81 Mg Tablet.dr, 81 MG PO DAILY, (Reported) Clopidogrel Bisulfate 75 Mg Tablet, 75 MG PO DAILY, (Reported) Cyclosporine 1 Each Droperette, 1 DROP OU BID, (Reported) Ezetimibe 10 Mg Tablet, 10 MG PO DAILY, (Reported) Fluticasone Propionate 16 Gm [employer].susp, 1 SPRAY NS BID PRN for ALLERGIES, ( Reported) Hyoscyamine Sulfate 0.125 Mg Tab.subl, 0.125 MG SL Q4H PRN for CRAMPS Prescribed by: ALFREDO JOSÉ on 06/29/18 1319 Levothyroxine Sodium 112 Mcg Tablet, 112 MCG PO DAILY, (Reported) Lorazepam 1 Mg Tablet, 1 MG PO TID PRN for ANXIETY, (Reported) Menthol 118 Ml Gel..ml., TP BID PRN for LEG PAIN, (Reported) APPLY TO RIGHT LEG FROM KNEE TO LOWER LEG Metoprolol Succinate 50 Mg Tab.er.24h, 50 MG PO DAILY, (Reported) Mirabegron 50 Mg Tab.er.24h, 50 MG PO DAILY, (Reported) Multivitamin with Minerals 1 Each Tablet, 1 TAB PO DAILY, (Reported) Nitroglycerin 0.4 Mg Tab.subl, 0.4 MG SL UD PRN for CHEST PAIN, (Reported) Ondansetron 8 Mg Tab.rapdis, 8 MG PO DAILY Prescribed by: ALFREDO JOSÉ on 06/29/18 1319 Pantoprazole Sodium 40 Mg Tablet.dr, 40 MG PO DAILY, (Reported) Pregabalin 150 Mg Capsule, 150 MG PO BID, (Reported) Ropinirole HCl 4 Mg Tablet, 8 MG PO 1800, (Reported) TAKES 2 (4MG) TABLETS Temazepam 30 Mg Capsule, 30 MG PO HS, (Reported) Venlafaxine HCl 75 Mg Tab, 75 MG PO DAILY, (Reported) Patient Home Medication List Home Medication List Reviewed: Yes Review of Systems Review of Systems Constitutional: see HPI; No chills, No fever EENTM: No Symptoms Reported Respiratory: No Symptoms Reported Cardiovascular: No Symptoms Reported Gastrointestinal: See HPI, Abdominal Pain, Diarrhea, Nausea Genitourinary: No Symptoms Reported Musculoskeletal: no symptoms reported Skin: no symptoms reported Psychiatric/Neurological: No Symptoms Reported Endocrine: No Symptoms Reported Hematologic/Lymphatic: No Symptoms Reported Past Vqewfma-Zewhta-Khkcuj Hx Patient Social History Type Used: Cigarettes Former Smoker, Quit: Mar 26, 1996 2nd Hand Smoke Exposure: No Recent Hopitalizations: No Immunizations Up To Date Tetanus Booster (TDap): Unknown PED Vaccines UTD: No Date of Pneumonia Vaccine: Apr 22, 2009 Date of Influenza Vaccine: Nov 20, 2017 Seasonal Allergies Seasonal Allergies: Yes Past Medical History Surgeries: Yes Abdominal, Appendectomy, Bladder Surgery, Bowel Surgery, Cardiac, Coronary Stent , Hysterectomy, Oophorectomy, Orthopedic, Tonsillectomy Respiratory: Yes Pulmonary Embolism, Sleep Apnea, COPD Currently Using CPAP: No Currently Using BIPAP: No Cardiac: Yes (CARDIAC CATH WITH STENTS X2) Chronic Edema/Swelling, Coronary Artery Disease, Deep Vein Thrombosis, Heart Attack, High Cholesterol, Hypertension Neurological: Yes (COGNITIVE DEFICIT) Vertigo 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, 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 Genitourinary: Yes (INCONTINENCE) Kidney Infection, Bladder Infection, UTI-Chronic Gastrointestinal: Yes Abdominal Hernia, Gastroesophageal Reflux, Diverticulosis, Esophagitis Musculoskeletal: Yes Osteoporosis, Arthritis, Chronic Back Pain, Fractures Endocrine: Yes (HYPOTHYROID) Hypothyroidsim HEENT: Yes (FULL DENTURES) Cataract, Dysphagia Loss of Vision: Denies Hearing Impairment: Denies Cancer: No Psychosocial: Yes (EXTENSIVE HISTORY OF RX ABUSE/OVERDOSES--OPIATES AND BENZO' S ) Anxiety, Depression Integumentary: No Blood Disorders: Yes (ANEMIA) Adverse Reaction/Blood Tranf: No Family Medical History Family history: Hypertension G8 BROTHER Myocardial infarction 19 MOTHER G8 BROTHER Physical Exam Vital Signs Vital Signs - First Documented 06/29/18 12:13 Temp 97.0 Pulse 65 Resp 18 B/P (MAP) 133/92 (106) Pulse Ox 94 Capillary Refill : Height/Weight/BMI Height: 5'2.00" Weight: 167lbs. 0.0oz. 75.999688fn; 30.5 BMI Method:Stated General Appearance: WD/WN, no apparent distress HEENT: PERRL/EOMI, normal ENT inspection Respiratory: normal breath sounds, no respiratory distress, no accessory muscle use Cardiovascular: regular rate, rhythm, no murmur Gastrointestinal: normal bowel sounds, soft, abnormal bowel sounds (high- pitched), tenderness Extremities: normal range of motion, non-tender Neurologic/Psychiatric: alert, normal mood/affect, oriented x 3 Skin: normal color, warm/dry Exam Comments I do have some concern for bowel obstruction giving the abdominal distention high-pitched bowel sounds, she is too nauseated to tolerate oral contrast for CT imaging. Progress/Results/Core Measures Results/Orders Lab Results Laboratory Tests Test 06/29/18 12:45 06/29/18 14:00 Range/Units White Blood Count 11.2 H 4.3-11.0 10^3/uL Red Blood Count 4.82 4.35-5.85 10^6/uL Hemoglobin 11.4 L 11.5-16.0 G/DL Hematocrit 36 35-52 % Mean Corpuscular Volume 76 L 80-99 FL Mean Corpuscular Hemoglobin 24 L 25-34 PG Mean Corpuscular Hemoglobin Concent 31 L 32-36 G/DL Red Cell Distribution Width 17.7 H 10.0-14.5 % Platelet Count 362 130-400 10^3/uL Mean Platelet Volume 10.5 H 7.4-10.4 FL Neutrophils (%) (Auto) 75 42-75 % Lymphocytes (%) (Auto) 16 12-44 % Monocytes (%) (Auto) 6 0-12 % Eosinophils (%) (Auto) 4 0-10 % Basophils (%) (Auto) 0 0-10 % Neutrophils # (Auto) 8.4 H 1.8-7.8 X 10^3 Lymphocytes # (Auto) 1.7 1.0-4.0 X 10^3 Monocytes # (Auto) 0.6 0.0-1.0 X 10^3 Eosinophils # (Auto) 0.4 H 0.0-0.3 10^3/uL Basophils # (Auto) 0.0 0.0-0.1 10^3/uL Sodium Level 132 L 135-145 MMOL/L Potassium Level 4.0 3.6-5.0 MMOL/L Chloride Level 100 98-107 MMOL/L Carbon Dioxide Level 25 21-32 MMOL/L Anion Gap 7 5-14 MMOL/L Blood Urea Nitrogen 15 7-18 MG/DL Creatinine 0.78 0.60-1.30 MG/DL Estimat Glomerular Filtration Rate > 60 BUN/Creatinine Ratio 19 Glucose Level 121 H 70-105 MG/DL Calcium Level 10.0 8.5-10.1 MG/DL Corrected Calcium 10.3 H 8.5-10.1 MG/DL Total Bilirubin 0.3 0.1-1.0 MG/DL Aspartate Amino Transf (AST/SGOT) 11 5-34 U/L Alanine Aminotransferase (ALT/SGPT) 9 0-55 U/L Alkaline Phosphatase 85 40-136 U/L Total Protein 6.0 L 6.4-8.2 GM/DL Albumin 3.6 3.2-4.5 GM/DL Lipase 26 8-78 U/L Urine Color YELLOW Urine Clarity CLEAR Urine pH 5 5-9 Urine Specific [place] 1.025 H 1.016-1.022 Urine Protein 1+ H NEGATIVE Urine Glucose (UA) NEGATIVE NEGATIVE Urine Ketones NEGATIVE NEGATIVE Urine Nitrite POSITIVE H NEGATIVE Urine Bilirubin NEGATIVE NEGATIVE Urine Urobilinogen NORMAL NORMAL MG/DL Urine Leukocyte Esterase 2+ H NEGATIVE Urine RBC (Auto) 1+ H NEGATIVE Urine RBC RARE /HPF Urine WBC >100 H /HPF Urine Squamous Epithelial Cells RARE /HPF Urine Crystals NONE /LPF Urine Bacteria LARGE H /HPF Urine Casts NONE /LPF Urine Mucus NEGATIVE /LPF Urine Culture Indicated YES My Orders Orders - ALFREDO JOSÉ APRN Cbc With Automated Diff (06/29/18 12:14) Comprehensive Metabolic Panel (06/29/18 12:14) Lipase (06/29/18 12:14) Ua Culture If Indicated (06/29/18 12:14) Ed Iv/Invasive Line Start (06/29/18 12:14) Ct Abdomen/Pelvis Wo (06/29/18 12:14) Ondansetron Injection (Zofran Injectio (06/29/18 12:15) Hyoscyamine Sl Tablet (Levsin Sl Tablet) (06/29/18 12:15) Lactated Ringers (Lr 1000 Ml Iv Solution (06/29/18 12:30) Ketorolac Injection (Toradol Injection) (06/29/18 13:15) Diphenhydramine Injection (Benadryl Inje (06/29/18 13:30) Urine Culture (06/29/18 14:00) Medications Given in ED Current Medications Medications Dose Ordered Sig/Perez Route Start Time Stop Time Status Last Admin Dose Admin Diphenhydramine HCl 25 mg ONCE ONCE IVP 06/29/18 13:30 06/29/18 13:31 DC 06/29/18 14:11 25 MG Hyoscyamine Sulfate 0.25 mg ONCE ONCE PO 06/29/18 12:15 06/29/18 12:16 DC 06/29/18 12:40 0.25 MG Ketorolac Tromethamine 30 mg ONCE ONCE IVP 06/29/18 13:15 06/29/18 13:16 DC 06/29/18 14:15 30 MG Ondansetron HCl 8 mg ONCE ONCE IVP 06/29/18 12:15 06/29/18 12:16 DC 06/29/18 12:40 8 MG Vital Signs/I&O 06/29/18 12:13 Temp 97.0 Pulse 65 Resp 18 B/P (MAP) 133/92 (106) Pulse Ox 94 Diagnostic Imaging Diagonstic Imaging: CT Comments NAME: [facility] REC#: [id number] PT STATUS: REG ER : 1940 PHYSICIAN: ALFREDO JOSÉ SUPERVISOR DRAWING ADMIT DATE: 06/29/18/ER Draft Date of Exam:06/29/18 CT ABDOMEN/PELVIS WO PROCEDURE: CT abdomen and pelvis without contrast. TECHNIQUE: Multiple contiguous axial images were obtained through the abdomen and pelvis without the use of intravenous contrast. Auto Exposure Controls were utilized during the CT exam to meet ALARA standards for radiation dose reduction. INDICATION: Lower abdominal pain. Correlation is made with prior CT from 04/28/2018. The lung bases are clear. No discrete liver mass is identified. The gallbladder is unremarkable. No biliary ductal dilatation is seen. The pancreas and spleen are unremarkable. No adrenal mass is identified. No renal calculi or hydronephrosis is seen. Aorta is calcified but nonaneurysmal. There is a midline ventral hernia containing fat in the upper abdomen, similar to prior exam. Just inferior to this is a second abdominal wall hernia in the midline which does contain bowel loops. No definite bowel obstruction or strangulation is seen. Intra-abdominal bowel loops are normal caliber. There is no ascites. Postsurgical changes at the rectosigmoid junction are seen. Bladder is decompressed. No definite acute inflammatory process is identified. Evaluation of bony structures demonstrates postop changes of the right hip. Kyphoplasty changes lower thoracic and lower lumbar spine are noted. IMPRESSION: Overall stable CT abdomen and pelvis with comparison study dating back to 04/28/2018. No acute feature is detected. Dictated on workstation # [id number] Dict: 06/29/18 1310 Trans: 06/29/18 1316 CV [id number] Interpreted by: MARTINEZ NAPIER MD Electronically signed by: Departure Impression Primary Impression: Nausea vomiting and diarrhea Additional Impression: Urinary tract infection Disposition: 01 HOME, SELF-CARE Condition: Stable Departure-Patient Inst. Decision time for Depature: 13:18 Referrals: TORIBIO FOFANA DO (PCP/Family) Primary Care Physician Patient Instructions: Diarrhea in Adolescents and Adults, Nausea and Vomiting, Adult, Urinary Tract Infections in Adults Add. Discharge Instructions: 1. Drink plenty of liquids to stay hydrated 2. Nausea medication as directed 3. All discharge instructions reviewed with patient and/or family. Voiced understanding. Scripts Levofloxacin (Levaquin) 500 Mg Tablet 500 MG PO DAILY, #5 TAB Prov: ALFREDO JOSÉ APRN 06/29/18 Ondansetron (Ondansetron Odt) 8 Mg Tab.rapdis 8 MG PO DAILY, #14 TAB Prov: ALFREDO JOSÉ APRN 06/29/18 Hyoscyamine Sulfate (Levsin-Sl) 0.125 Mg Tab.subl 0.125 MG SL Q4H PRN for CRAMPS, #10 TAB 0 Refills Prov: ALFREDO JOSÉ APRN 06/29/18 ALFREDO JOSÉ APRN June 29, 2018 12:19
[2018-06-29 12:56] LABS: BASOPHILS % (AUTO) 0 % (0-10); EOSINOPHILS # (AUTO) 0.4 10^3/uL (0.0-0.3); EOSINOPHILS % (AUTO) 4 % (0-10); HEMATOCRIT 36 % (35-52); HEMOGLOBIN 11.4 G/DL (11.5-16.0); LYMPHOCYTES # (AUTO) 1.7 X 10^3 (1.0-4.0); LYMPHOCYTES % (AUTO) 16 % (12-44); MEAN CORPUSCULAR HEMOGLOBIN 24 PG (25-34); MEAN CORPUSCULAR HGB CONC 31 G/DL (32-36); MEAN CORPUSCULAR VOLUME 76 FL (80-99); MEAN PLATELET VOLUME 10.5 FL (7.4-10.4); MONOCYTES # (AUTO) 0.6 X 10^3 (0.0-1.0); MONOCYTES % (AUTO) 6 % (0-12); NEUTROPHILS # (AUTO) 8.4 X 10^3 (1.8-7.8); NEUTROPHILS % (AUTO) 75 % (42-75); PLATELET COUNT 362 10^3/uL (130-400); RED CELL DISTRIBUTION WIDTH 17.7 % (10.0-14.5); WHITE BLOOD COUNT 11.2 10^3/uL (4.3-11.0)
[2018-06-29 13:15] LABS: ALANINE AMINOTRANSFERASE 9 U/L (0-55); ALBUMIN 3.6 GM/DL (3.2-4.5); ALKALINE PHOSPHATASE 85 U/L (40-136); BILIRUBIN,TOTAL 0.3 MG/DL (0.1-1.0); BUN/CREATININE RATIO 19; CARBON DIOXIDE 25 MMOL/L (21-32); CHLORIDE 100 MMOL/L (98-107); CREATININE SERUM 0.78 MG/DL (0.60-1.30); GFR ESTIMATED > 60; GLUCOSE 121 MG/DL (70-105); LIPASE 26 U/L (8-78); SODIUM 132 MMOL/L (135-145)
--- NOTE | 2018-06-29 13:16 | Diagnostic Imaging Report ---
PROCEDURE: CT abdomen and pelvis without contrast. TECHNIQUE: Multiple contiguous axial images were obtained through the abdomen and pelvis without the use of intravenous contrast. Auto Exposure Controls were utilized during the CT exam to meet ALARA standards for radiation dose reduction. INDICATION: Lower abdominal pain. Correlation is made with prior CT from 04/28/2018. The lung bases are clear. No discrete liver mass is identified. The gallbladder is unremarkable. No biliary ductal dilatation is seen. The pancreas and spleen are unremarkable. No adrenal mass is identified. No renal calculi or hydronephrosis is seen. Aorta is calcified but nonaneurysmal. There is a midline ventral hernia containing fat in the upper abdomen, similar to prior exam. Just inferior to this is a second abdominal wall hernia in the midline which does contain bowel loops. No definite bowel obstruction or strangulation is seen. Intra-abdominal bowel loops are normal caliber. There is no ascites. Postsurgical changes at the rectosigmoid junction are seen. Bladder is decompressed. No definite acute inflammatory process is identified. Evaluation of bony structures demonstrates postop changes of the right hip. Kyphoplasty changes lower thoracic and lower lumbar spine are noted. IMPRESSION: Overall stable CT abdomen and pelvis with comparison study dating back to 04/28/2018. No acute feature is detected. Dictated by: Dictated on workstation # [id number]
[2018-06-29 14:04] LABS: BILIRUBIN,URINE NEGATIVE (NEGATIVE); CLARITY,URINE CLEAR; COLOR,URINE YELLOW; GLUCOSE, URINE (UA) NEGATIVE (NEGATIVE); KETONES,URINE NEGATIVE (NEGATIVE); LEUKOCYTE ESTERASE ,URINE 2+ (NEGATIVE); NITRITE,URINE POSITIVE (NEGATIVE); PH,URINE 5 (5-9); PROTEIN,URINE 1+ (NEGATIVE); UROBILINOGEN,URINE NORMAL (NORMAL)
[2018-06-29 14:12] LABS: BACTERIA,URINE LARGE /HPF; RBC,URINE RARE /HPF; SQUAMOUS EPITHELIAL CELL,UR RARE /HPF; WBC,URINE >100 /HPF
[2018-06-29 14:37] VITALS: BP 130/90
== END | disposition home or self-care (01) ==
LOC: EDUNIT# 12:08 → ER 12:09
DX: N39.0 Urinary tract infection, site not specified (principal); R19.7 Diarrhea, unspecified; G47.30 Sleep apnea, unspecified; J44.9 Chronic obstructive pulmonary disease, unspecified; I25.10 Atherosclerotic heart disease of native coronary artery without angina pectoris; I25.2 Old myocardial infarction; E78.00 Pure hypercholesterolemia, unspecified; I10 Essential (primary) hypertension; K21.0 Gastro-esophageal reflux disease with esophagitis; M81.0 Age-related osteoporosis without current pathological fracture; E03.9 Hypothyroidism, unspecified; F41.9 Anxiety disorder, unspecified; F32.9 Major depressive disorder, single episode, unspecified; D64.9 Anemia, unspecified; Z82.49 Family history of ischemic heart disease and other diseases of the circulatory system; Z87.19 Personal history of other diseases of the digestive system; Z87.448 Personal history of other diseases of urinary system; Z87.440 Personal history of urinary (tract) infections; Z79.82 Long term (current) use of aspirin; Z79.51 Long term (current) use of inhaled steroids; Z87.891 Personal history of nicotine dependence; Z90.49 Acquired absence of other specified parts of digestive tract; Z98.890 Other specified postprocedural states; Z95.5 Presence of coronary angioplasty implant and graft; Z90.710 Acquired absence of both cervix and uterus; Z90.89 Acquired absence of other organs; Z86.711 Personal history of pulmonary embolism
CPT/HCPCS: 36415; 74176; 80053; 81000; 83690; 85025; 87077; 87088; 87184; 87186

== ENCOUNTER → 2018-07-19 | Outpatient (CLI) | payer MEDICARE, MEDICAID ==
[~2018-07-19] MED LIST changes: -EZET10TA27 PO; +EZET10TA49 PO; -HYOSCYAMINE 0.125 MG (LEVSIN) TAB PO ONE; -KETOROLAC 30 MG/ML VIAL IVP ONE; -LACTATED RINGERS 1,000 ML IV SCH; -ONDANSETRON 4 MG/2 ML (SDV) Z0FRAN IVP ONE; -diphenhydrAMINE 50 MG/ML INJ (BENADRYL) IVP ONE
== END ==
LOC: LABNPT 20:13
PROVIDERS: ATTEND Surgery
DX: R11.2 Nausea with vomiting, unspecified (principal); R19.7 Diarrhea, unspecified
CPT/HCPCS: 87015; 87045; 87046; 87324; 87328; 87329; 87449; 87493; 87899

== ENCOUNTER → 2018-08-09 | Outpatient (CLI) | payer MEDICARE, MEDICAID ==
--- NOTE | 2018-08-09 12:09 | Diagnostic Imaging Report ---
Indication: Esophageal stricture, difficulty swallowing. Study was performed in conjunction with speech pathology. Video fluoroscopy was performed during swallowing of barium at multiple consistencies. Patient ingested thin consistency as well as applesauce, banana, ground meat and cracker consistency. 2 minutes and 6 seconds of fluoroscopy time was utilized. Oral phase is grossly unremarkable. There is normal epiglottic tilt and laryngeal elevation. No penetration or aspiration was observed. No significant residue was demonstrated. Impression: Unremarkable modified barium swallow. Dictated by: Dictated on workstation # [id number]
== END ==
LOC: RAD 09:43
PROVIDERS: ATTEND Internal Medicine
DX: K22.2 Esophageal obstruction (principal)
CPT/HCPCS: 74230

== ENCOUNTER → 2018-08-22 | Outpatient (CLI) | payer MEDICARE, MEDICAID ==
--- NOTE | 2018-08-22 13:32 | Diagnostic Imaging Report ---
INDICATION: Back pain. EXAMINATION: Lumbar spine. FINDINGS: AP and lateral views of the lumbar spine show postop changes from kyphoplasties of L5 as well as T8, T10, and T12. The vertebral alignment is normal. There is scoliosis of the lumbar spine, convex to the right. There are osteophytes forming anteriorly and on left side of the vertebral bodies at L1-2, L2-3, and L3-4. IMPRESSION: Scoliosis, degenerative changes, and old compression fractures. No acute abnormality is seen. Dictated by: Dictated on workstation # [id number]
== END ==
LOC: RAD 11:40
PROVIDERS: ATTEND Internal Medicine
DX: M41.86 Other forms of scoliosis, lumbar region (principal); M25.78 Osteophyte, vertebrae; M47.816 Spondylosis without myelopathy or radiculopathy, lumbar region; I20.9 Angina pectoris, unspecified; N39.0 Urinary tract infection, site not specified; Z98.890 Other specified postprocedural states; Z87.81 Personal history of (healed) traumatic fracture
CPT/HCPCS: 72110

== ENCOUNTER 2018-08-28 14:37 | Emergency (ER) | payer MEDICARE, MEDICAID ==
[~2018-08-28] VITALS: Ht 157.5 cm; Wt 75.7 kg
[2018-08-28 14:53] LABS: BASOPHILS % (AUTO) 0 % (0-10); EOSINOPHILS # (AUTO) 0.2 10^3/uL (0.0-0.3); EOSINOPHILS % (AUTO) 3 % (0-10); HEMATOCRIT 37 % (35-52); HEMOGLOBIN 11.6 G/DL (11.5-16.0); LYMPHOCYTES # (AUTO) 1.9 X 10^3 (1.0-4.0); LYMPHOCYTES % (AUTO) 23 % (12-44); MEAN CORPUSCULAR HEMOGLOBIN 24 PG (25-34); MEAN CORPUSCULAR HGB CONC 31 G/DL (32-36); MEAN CORPUSCULAR VOLUME 75 FL (80-99); MEAN PLATELET VOLUME 10.6 FL (7.4-10.4); MONOCYTES # (AUTO) 0.6 X 10^3 (0.0-1.0); MONOCYTES % (AUTO) 7 % (0-12); NEUTROPHILS # (AUTO) 5.5 X 10^3 (1.8-7.8); NEUTROPHILS % (AUTO) 67 % (42-75); PLATELET COUNT 299 10^3/uL (130-400); RED CELL DISTRIBUTION WIDTH 18.5 % (10.0-14.5); WHITE BLOOD COUNT 8.2 10^3/uL (4.3-11.0)
[2018-08-28 14:54] LABS: OCCULT BLOOD,GASTRIC FLUID POSITIVE (NEGATIVE)
--- NOTE | 2018-08-28 14:55 | ED General ---
General Chief Complaint: Coughing up blood Stated Complaint: NAUSEA Source of Information: Patient Exam Limitations: No Limitations History of Present Illness Date Seen by Provider: Aug 28, 2018 Time Seen by Provider: 14:54 Initial Comments To ER per EMS from home with reports of hematemesis. She states that she tried to eat a sandwich from [employer] and vomited that up. She happened to be on the phone with Dr. Brewer's nurse when she was vomiting, noticed some bright red blood and told the nurse about that who suggested she come to the emergency room to be evaluated. She has a bag of red emesis with her. She does report some epigastric discomfort. Timing/Duration: 1-2 Days Severity: Moderate Associated Systoms: Nausea/Vomiting Allergies and Home Medications Allergies Coded Allergies: No Known Drug Allergies (Unverified , 06/10/15) Home Medications Albuterol Sulfate 18 Gm Hfa.aer.ad, 2 PUFF IH Q6H PRN for WHEEZING, (Reported) Aspirin 81 Mg Tablet.dr, 81 MG PO DAILY, (Reported) Clopidogrel Bisulfate 75 Mg Tablet, 75 MG PO DAILY, (Reported) Cyclosporine 1 Each Droperette, 1 DROP OU BID, (Reported) Ezetimibe 10 Mg Tablet, 10 MG PO DAILY, (Reported) Fluticasone Propionate 16 Gm [place].susp, 1 SPRAY NS BID PRN for ALLERGIES, (Reported) Hyoscyamine Sulfate 0.125 Mg Tab.subl, 0.125 MG SL Q4H PRN for CRAMPS Prescribed by: ALFREDO JOSÉ on 06/29/18 1319 Levofloxacin 500 Mg Tablet, 500 MG PO DAILY Prescribed by: ALFREDO JOSÉ on 06/29/18 1427 Levothyroxine Sodium 112 Mcg Tablet, 112 MCG PO DAILY, (Reported) Lorazepam 1 Mg Tablet, 1 MG PO TID PRN for ANXIETY, (Reported) Menthol 118 Ml Gel..ml., TP BID PRN for LEG PAIN, (Reported) APPLY TO RIGHT LEG FROM KNEE TO LOWER LEG Metoprolol Succinate 50 Mg Tab.er.24h, 50 MG PO DAILY, (Reported) Mirabegron 50 Mg Tab.er.24h, 50 MG PO DAILY, (Reported) Multivitamin with Minerals 1 Each Tablet, 1 TAB PO DAILY, (Reported) Nitroglycerin 0.4 Mg Tab.subl, 0.4 MG SL UD PRN for CHEST PAIN, (Reported) Ondansetron 8 Mg Tab.rapdis, 8 MG PO DAILY Prescribed by: ALFREDO JOSÉ on 06/29/18 1319 Pantoprazole Sodium 40 Mg Tablet.dr, 40 MG PO DAILY, (Reported) Pregabalin 150 Mg Capsule, 150 MG PO BID, (Reported) Ropinirole HCl 4 Mg Tablet, 8 MG PO 1800, (Reported) TAKES 2 (4MG) TABLETS Temazepam 30 Mg Capsule, 30 MG PO HS, (Reported) Venlafaxine HCl 75 Mg Tab, 75 MG PO DAILY, (Reported) Patient Home Medication List Home Medication List Reviewed: Yes Review of Systems Review of Systems Constitutional: see HPI EENTM: see HPI Respiratory: no symptoms reported Cardiovascular: no symptoms reported Gastrointestinal: hematemesis, nausea Genitourinary: no symptoms reported Musculoskeletal: no symptoms reported Skin: no symptoms reported Psychiatric/Neurological: No Symptoms Reported Hematologic/Lymphatic: No Symptoms Reported Past Qkwshbw-Xsijbn-Ppwqkj Hx Patient Social History Type Used: Cigarettes Former Smoker, Quit: Mar 26, 1996 2nd Hand Smoke Exposure: No Recent Hopitalizations: No Immunizations Up To Date Tetanus Booster (TDap): Unknown PED Vaccines UTD: No Date of Pneumonia Vaccine: Apr 22, 2009 Date of Influenza Vaccine: Nov 20, 2017 Seasonal Allergies Seasonal Allergies: Yes Past Medical History Surgeries: Yes Abdominal, Appendectomy, Bladder Surgery, Bowel Surgery, Cardiac, Coronary Stent, Hysterectomy, Oophorectomy, Orthopedic, Tonsillectomy Respiratory: Yes Pulmonary Embolism, Sleep Apnea, COPD Currently Using CPAP: No Currently Using BIPAP: No Cardiac: Yes (CARDIAC CATH WITH STENTS X2) Chronic Edema/Swelling, Coronary Artery Disease, Deep Vein Thrombosis, Heart Attack, High Cholesterol, Hypertension Neurological: Yes (COGNITIVE DEFICIT) Vertigo 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, 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 Genitourinary: Yes (INCONTINENCE) Kidney Infection, Bladder Infection, UTI-Chronic Gastrointestinal: Yes Abdominal Hernia, Gastroesophageal Reflux, Diverticulosis, Esophagitis Musculoskeletal: Yes Osteoporosis, Arthritis, Chronic Back Pain, Fractures Endocrine: Yes (HYPOTHYROID) Hypothyroidsim HEENT: Yes (FULL DENTURES) Cataract, Dysphagia Loss of Vision: Denies Hearing Impairment: Denies Cancer: No Psychosocial: Yes (EXTENSIVE HISTORY OF RX ABUSE/OVERDOSES--OPIATES AND BENZO'S ) Anxiety, Depression Integumentary: No Blood Disorders: Yes (ANEMIA) Adverse Reaction/Blood Tranf: No Family Medical History Family history: Hypertension G8 BROTHER Myocardial infarction 19 MOTHER G8 BROTHER Physical Exam Vital Signs Vital Signs - First Documented 08/28/18 14:37 Pulse 78 Resp 18 B/P (MAP) 132/78 (96) Pulse Ox 96 O2 Delivery Room Air Capillary Refill : Height, Weight, BMI Height: 5'2.00" Weight: 165lbs. 0oz. 74.165146km; 30.5 BMI Method:Actual General Appearance: No Apparent Distress, WD/WN Eyes: Bilateral Eye Normal Inspection, Bilateral Eye PERRL, Bilateral Eye EOMI HEENT: PERRL/EOMI, Normal ENT Inspection Neck: Full Range of Motion, Normal Inspection Respiratory: No Accessory Muscle Use, No Respiratory Distress Gastrointestinal: Normal Bowel Sounds, Non Tender, Soft Extremity: Normal Capillary Refill, Normal Inspection Neurologic/Psychiatric: Alert, Oriented x3 Skin: Normal Color, Warm/Dry Progress/Results/Core Measures Suspected Sepsis SIRS Temperature: Pulse: Respiratory Rate: Laboratory Tests 08/28/18 14:42: White Blood Count 8.2 Blood Pressure / Mean: Laboratory Tests 08/28/18 14:42: Creatinine 0.76, Platelet Count 299, Total Bilirubin 0.6 Results/Orders Lab Results Laboratory Tests Test 08/28/18 14:42 Range/Units White Blood Count 8.2 4.3-11.0 10^3/uL Red Blood Count 4.90 4.35-5.85 10^6/uL Hemoglobin 11.6 11.5-16.0 G/DL Hematocrit 37 35-52 % Mean Corpuscular Volume 75 L 80-99 FL Mean Corpuscular Hemoglobin 24 L 25-34 PG Mean Corpuscular Hemoglobin Concent 31 L 32-36 G/DL Red Cell Distribution Width 18.5 H 10.0-14.5 % Platelet Count 299 130-400 10^3/uL Mean Platelet Volume 10.6 H 7.4-10.4 FL Neutrophils (%) (Auto) 67 42-75 % Lymphocytes (%) (Auto) 23 12-44 % Monocytes (%) (Auto) 7 0-12 % Eosinophils (%) (Auto) 3 0-10 % Basophils (%) (Auto) 0 0-10 % Neutrophils # (Auto) 5.5 1.8-7.8 X 10^3 Lymphocytes # (Auto) 1.9 1.0-4.0 X 10^3 Monocytes # (Auto) 0.6 0.0-1.0 X 10^3 Eosinophils # (Auto) 0.2 0.0-0.3 10^3/uL Basophils # (Auto) 0.0 0.0-0.1 10^3/uL Gastric Fluid Occult Blood POSITIVE H NEGATIVE Sodium Level 135 135-145 MMOL/L Potassium Level 4.0 3.6-5.0 MMOL/L Chloride Level 104 98-107 MMOL/L Carbon Dioxide Level 24 21-32 MMOL/L Anion Gap 7 5-14 MMOL/L Blood Urea Nitrogen 15 7-18 MG/DL Creatinine 0.76 0.60-1.30 MG/DL Estimat Glomerular Filtration Rate > 60 BUN/Creatinine Ratio 20 Glucose Level 103 70-105 MG/DL Calcium Level 9.7 8.5-10.1 MG/DL Corrected Calcium 9.9 8.5-10.1 MG/DL Total Bilirubin 0.6 0.1-1.0 MG/DL Aspartate Amino Transf (AST/SGOT) 10 5-34 U/L Alanine Aminotransferase (ALT/SGPT) 8 0-55 U/L Alkaline Phosphatase 90 40-136 U/L Total Protein 6.1 L 6.4-8.2 GM/DL Albumin 3.8 3.2-4.5 GM/DL My Orders Orders - ALFREDO JOSÉ APRN Cbc With Automated Diff (08/28/18 14:45) Comprehensive Metabolic Panel (08/28/18 14:45) Occult Blood,Gastric Fluid (08/28/18 14:45) Ed Iv/Invasive Line Start (08/28/18 14:45) Pantoprazole Injection (Protonix Injecti (08/28/18 15:00) Antacid Suspension (Mylanta Suspension (08/28/18 15:00) Lidocaine 2% Viscous 15 Ml (Xylocaine Vi (08/28/18 15:00) Medications Given in ED Current Medications Medications Dose Ordered Sig/Perez Route Start Time Stop Time Status Last Admin Dose Admin Al Hydrox/Mg Hydrox/Simethicone 30 ml ONCE ONCE PO 08/28/18 15:00 08/28/18 15:01 DC 08/28/18 15:07 30 ML Lidocaine HCl 10 ml ONCE ONCE PO 08/28/18 15:00 08/28/18 15:01 DC 08/28/18 15:06 10 ML Pantoprazole 40 mg ONCE ONCE IV 08/28/18 15:00 08/28/18 15:01 DC 08/28/18 15:06 40 MG Vital Signs/I&O 08/28/18 14:37 Pulse 78 Resp 18 B/P (MAP) 132/78 (96) Pulse Ox 96 O2 Delivery Room Air Capillary Refill : Departure Communication (Admissions) She did have an EGD on 06/11/18 showing a distal esophageal ulcer and mild gastritis. 1527-spoke with Dr. Paz who did the endoscopy in May. He recommends s topping the aspirin Plavix, initiate therapy with PPI, she should come to his office tomorrow morning and he'll schedule for repeat endoscopy next week. Her hemoglobin is increased from previous, her vitals are stable. Impression Primary Impression: Hematemesis Qualified Codes: K92.0 - Hematemesis Disposition: HOME, SELF-CARE Condition: Critical Departure-Patient Inst. Decision time for Depature: 15:27 Referrals: TORIBIO BREWER DO (PCP) Primary Care Physician LEXUS NELSON DO Patient Instructions: Gastrointestinal Bleeding Add. Discharge Instructions: 1. Stop the aspirin and Plavix today. Do not restart this until cleared by Dr. Nelson. You should go to his office tomorrow morning at 8 AM. Start the acid reducing medication as directed. All discharge instructions reviewed with patient and/or family. Voiced understanding. Scripts Pantoprazole Sodium (Protonix) 40 Mg Tablet. 40 MG PO DAILY, #14 TAB Prov: ALFREDO JOSÉ APRN 08/28/18 Copy Copies To 1: LEXUS NELSON DO; TORIBIO BREWER PETER J MARKETING CONTENT SPECIALIST Aug 28, 2018 14:55
[2018-08-28] MEDS ORDERED: ANTACID SUSP 30 ML UDC (MYLANTA) PO ONE (15:00)
[2018-08-28] MEDS ORDERED: LIDOCAINE 2% VISCOUS 15 ML UDC PO ONE (15:00)
[2018-08-28] MEDS ORDERED: PANTOPRAZOLE 40 MG (PROTONIX) VIAL IV ONE (15:00)
[2018-08-28 15:08] LABS: ALANINE AMINOTRANSFERASE 8 U/L (0-55); ALBUMIN 3.8 GM/DL (3.2-4.5); ALKALINE PHOSPHATASE 90 U/L (40-136); BILIRUBIN,TOTAL 0.6 MG/DL (0.1-1.0); BUN/CREATININE RATIO 20; CALCIUM 9.7 MG/DL (8.5-10.1); CARBON DIOXIDE 24 MMOL/L (21-32); CHLORIDE 104 MMOL/L (98-107); CREATININE SERUM 0.76 MG/DL (0.60-1.30); GFR ESTIMATED > 60; GLUCOSE 103 MG/DL (70-105); SODIUM 135 MMOL/L (135-145); TOTAL PROTEIN 6.1 GM/DL (6.4-8.2)
[2018-08-28] MEDS ORDERED: PANT40TA2 PO (15:39)
[2018-08-28 15:55] VITALS: BP 164/78
[2018-08-29] MEDS ORDERED: DULO60CA58 PO (10:02)
[2018-08-29] MEDS ORDERED: OXYC10TA7 PO (10:02)
[2018-08-29] MEDS ORDERED: FESO4TAB PO (10:02)
[2018-08-29] MEDS ORDERED: DOXY100T2 PO (10:02)
== END 2018-08-28 15:52 | disposition home or self-care (01) ==
LOC: EDUNIT# 14:37 → ER 14:38
DX: K92.0 Hematemesis (principal); J44.9 Chronic obstructive pulmonary disease, unspecified; G47.30 Sleep apnea, unspecified; I10 Essential (primary) hypertension; E78.00 Pure hypercholesterolemia, unspecified; I25.2 Old myocardial infarction; I25.10 Atherosclerotic heart disease of native coronary artery without angina pectoris; K21.9 Gastro-esophageal reflux disease without esophagitis; M81.0 Age-related osteoporosis without current pathological fracture; E03.9 Hypothyroidism, unspecified; F41.9 Anxiety disorder, unspecified; F32.9 Major depressive disorder, single episode, unspecified; Z86.718 Personal history of other venous thrombosis and embolism; Z79.82 Long term (current) use of aspirin; Z79.02 Long term (current) use of antithrombotics/antiplatelets; Z79.51 Long term (current) use of inhaled steroids; Z90.49 Acquired absence of other specified parts of digestive tract; Z95.5 Presence of coronary angioplasty implant and graft; Z90.710 Acquired absence of both cervix and uterus; Z90.89 Acquired absence of other organs; Z86.711 Personal history of pulmonary embolism; Z87.440 Personal history of urinary (tract) infections; Z82.49 Family history of ischemic heart disease and other diseases of the circulatory system
CPT/HCPCS: 36415; 80053; 82271; 85025; 96374

== ENCOUNTER 2018-08-29 08:50 | Outpatient (CLI) | payer MEDICARE, MEDICAID ==
[~2018-08-29] VITALS: Ht 157.5 cm; Wt 75.7 kg
[~2018-08-29 08:50] MED LIST changes: +PANT40TA2 PO
[2018-08-29] MEDS ORDERED: DULO60CA58 PO (10:02)
[2018-08-29] MEDS ORDERED: DOXY100T2 PO (10:02)
[2018-08-29] MEDS ORDERED: FESO4TAB PO (10:02)
[2018-08-29] MEDS ORDERED: OXYC10TA7 PO (10:02)
[2018-08-30] MEDS ORDERED: TEMA15CA PO (13:20)
[2018-08-30] MEDS ORDERED: LACT10SO64 PO (13:20)
[2018-08-30] MEDS ORDERED: SUCR1TAB PO (13:20)
[2018-08-30] MEDS ORDERED: DICY10CA12 PO (13:20)
[2018-08-30] MEDS ORDERED: ONDA4TAB11 PO (13:20)
[2018-08-30] MEDS ORDERED: EZET10TA49 PO (13:20)
[2018-08-30] MEDS ORDERED: ESTR42.511 VG (13:22)
== END 2018-08-29 10:09 | disposition home or self-care (01) ==
LOC: PREOP 08:50
PROVIDERS: ATTEND Surgery
DX: Z01.818 Encounter for other preprocedural examination (principal)

== ENCOUNTER 2018-08-30 08:25 | Observation (INO) | payer MEDICARE, MEDICAID ==
[2018-08-30] VITALS (16 sets, daily range): BP systolic 147–204; BP diastolic 80–100
[~2018-08-30] VITALS: Ht 157.5 cm; Wt 73.7 kg
[~2018-08-30 08:25] MED LIST changes: +DOXY100T2 PO; +FESO4TAB PO; +OXYC10TA7 PO
--- OUTSIDE RECORDS SUMMARY | 2018-08-30 08:37 | XMS REPORT | Encounter Summary ---
Author Author [facility] Organization [facility] Address Unknown Phone Unavailable Care Team Providers Care Film Processing Utility Worker Name Role Phone Donna Brown RN Unavailable Unavailable Michael Mandujano MD Unavailable Alfonso Lino DO Unavailable Alfonso Keith MD Unavailable Eliud Brewer MD PCP Reason for Visit * Reason Comments Medication Follow-up Encounter Details Care Team Description Date Type Department Darius Alvarez MD [address] Orth[facility] [address] [place] [address] Medication Follow-up 06/01/2018 Telephone [facility] [address] [place] [address] Social History Date Tobacco Use Types Packs/Day Years Used Quit: 10/13/2003 Former Smoker 0.1 10 Smokeless Tobacco: Never Used Drinks/Week oz/Week Comments Alcohol Use 0 Standard drinks or equivalent 0.0 No Sex Assigned at Date Recorded Not on [...] will stop the Myrbetriq and start on To viaz 4mg once daily. She will keep her follow up appointment with Dr. Alvarez. Patient is aware of this information and that the medication has been sent to h er pharmacy. She will call us if she has any other issues with getting this fill ed. * Telephone Encounter - Aliza Stearns RN - 06/01/2018 11:33 AM CDT Received denial of Trospium medication from the insurance company for this patie nt. Patient has tried: Oxybutynin ER - not [...]
--- OUTSIDE RECORDS SUMMARY | 2018-08-30 08:37 | XMS REPORT | Encounter Summary ---
Author Author [facility] Organization [facility] Address Unknown Phone Unavailable Care Team Providers Care [place] Stayer Machine Operator Name Role Phone Donna Brown RN Unavailable Unavailable Michael Mandujano MD Unavailable Alfonso Lino DO Unavailable Alfonso Keith MD Unavailable Eliud Brewer MD PCP Reason for Visit * Reason Comments Scheduling Encounter Details Care Team Description Date Type Department Darius Alvarez MD [address] Orth[facility] [address] [place] [address] Scheduling 07/13/2018 Telephone [facility] [address] [place] [address] Social History Date Tobacco Use [...] encounter Miscellaneous Notes * Telephone Encounter - Jerzy Ponce - 07/13/2018 9:45 AM CDT Returned Pt phone call message about moving appt on 07/25 up sooner in the day . I spoke with the Pt and offered her a 9 AM spot. Pt took it and verbalized unders tanding of the new time. documented in this encounter Plan of Treatment Not on filedocumented as of this encounter Visit Diagnoses Not on filedocumented in this encounter
--- OUTSIDE RECORDS SUMMARY | 2018-08-30 08:37 | XMS REPORT | Clinical Summary ---
Author Author [facility] Organization [facility] Address Unknown Phone Unavailable Care Team Providers Care Environmental Health Safety Manager Name Role Phone Donna Brown RN Unavailable Unavailable Michael Mandujano MD Unavailable Alfonso Lino DO Unavailable Alfonso Keith MD Unavailable Eliud Brewer MD PCP Source Comments Some departments are not documenting in the electronic medical record. If you d o not see the information that you expected, contact Release of Information in [facility] [employer] Information Management department at [phone] for further assistan ce in locating additional records.[facility] Allergies Comments Active Allergy Reactions [...] needed. Active fluticasone (FLONASE) 50 Apply 1 [place] 0 mcg/actuation nasal spray to each nostril [...] mouth daily. Do not cut/ crush/ chew 08/31/2018 Active doxycycline (VIBRAMYCIN) Take one 14 tablet 0 100 mg tablet tablet by 9 mouth twice daily for 7 days. Active Problems Problem Noted Date Colostomy in place 07/31/2014 Parastomal hernia 07/31/2014 Chest pain 06/03/2009 HLD (hyperlipidemia) 06/03/2009 PE (pulmonary embolism) 06/03/2009 Urinary incontinence 06/03/2009 Overview: 2006: Coaptite injections by Dr. Alvarez x 2 (noted to have ISD on operative note) 07/2017: UDS by Dr. Mccormack ([place]): ISD, OAB, mixed incontinence 04/18/18: PE: Normal sensation b/l, + leak with very strong valsalva, no hypermobility, no prolapse, good levator tone, + atrophic vaginitis PVR: 38 cc Questionaires: MARGIE-6: 12 IIQ-7: 20 PISQ-12: #1 sometimes OAB-V8: 37 L ast Assessment & Plan: 77 y.o. female with h/o OAB, ISD who presents to re-establish with Dr. Alvarez. She is seen Dr. Mccormack, in [place], [place] who performed UDS and in 07/2017, [...] physical therapy if it is available in [place], [place]. All questions were answered and she is amenable to the plan. Vaginal Estrace cream 3 times weekly Discontinue Myrbetriq Start Trospium 60 XR daily PFPT with external referral to [facility] in 3-4 months Restless leg syndrome 06/03/2009 CAD (coronary artery disease) 06/03/2009 Overview: Hx of ND 4 yrs ago Depression 06/03/2009 Arthritis 06/03/2009 Back pain 06/03/2009 Hypothyroidism 06/03/2009 Bursitis of knee 06/03/2009 Overview: R RAJI (obstructive sleep apnea) Overview: noncompliant with CPAP Encounters Care Team Description Date Type Specialty Darius Alvarez MD Acute cystitis without hematuria (Primary Dx); Urinary urgency; Urinary frequency; Urge incontinence; Ventral hernia without obstruction or gangrene 08/24/2018 Procedure visit Urology Darius Alvarez MD Recurrent UTI (urinary tract infection) (Primary Dx); Parastomal hernia without obstruction or gangrene 08/24/2018 Clinical Urology Support Darius Alvarez MD Urinary urgency (Primary Dx); Urge incontinence 07/25/2018 Office Visit Urology Darius Alvarez MD Scheduling 07/13/2018 Telephone Urology Darius Alvarez MD Medication Follow-up 06/01/2018 Telephone Urology from Last 3 Months Family History [...] travel history available. Last Filed Vital Signs Reading Time Taken Comments Vital Sign 162/87 07/25/2018 9:23 AM CDT Blood Pressure 82 07/25/2018 9:23 AM CDT Pulse 36.1 C (96.9 F) 10/13/2015 9:37 AM CDT Temperature 14 09/08/2015 2:37 PM CDT Respiratory Rate 94% 10/13/2015 9:37 AM CDT Oxygen Saturation - - Inhaled Oxygen Concentration 74.8 kg (165 lb) 07/25/2018 9:23 AM CDT Weight 157.5 cm (5' 2") 07/25/2018 9:23 AM CDT Height 30.18 07/25/2018 9:23 AM CDT Body Mass Index Plan of Treatment Health Maintenance Due Date [...] Other Implanted: 04/22/2004 (Quantity not on file) Description: Intraocular lens implants / / [id number]-38/7/2004 Stent Implanted: 01/27/2004 by Karina Rosales MD (Quantity not on file) Description: prox LAD Results Not on filefrom Last 3 Months Insurance Type Payer Benefit Subscriber ID Effective Phone Address Plan / Dates Group Medicare MEDICARE MEDICARE xxxxxxxxxx 1995- PART A AND Present B Medicaid [facility] MEDICAID [facility] xxxxxxxxxxx 2012-P COMMUNITY resent PLAN [place] Advance Directives Patient Healthcare Liaison Explanation Type Date Recorded Advance 10/02/2015 12:18 PM Directive/DPOA
--- OUTSIDE RECORDS SUMMARY | 2018-08-30 08:37 | XMS REPORT | Encounter Summary ---
Author Author [facility] Organization [facility] Address Unknown Phone Unavailable Care Team Providers Care Plywood Stock Grader Name Role Phone Donna Brown RN Unavailable Unavailable Michael Mandujano MD Unavailable Alfonso Lino DO Unavailable Alfonso Keith MD Unavailable Eliud Brewer MD PCP Reason for Visit * Reason Comments Bladder infection Urinary Incontinence Encounter Details Care Team Description Date Type Department Darius Alvarez MD [address] Orth[facility] [address] [place] [address] Acute cystitis without hematuria (Primary Dx); Urinary urgency; Urinary frequency; Urge incontinence; Ventral hernia without obstruction or gangrene 08/24/2018 Procedure visit [facility] [address] [place] [address] Social History Date Tobacco Use [...] impairment: No documented as of this encounter Progress Notes * Darius Alvaerz MD - 08/24/2018 2:30 PM CDT Date of Service: 08/24/2018 Subjective: April Gomez is a 78 y.o. female. History of Present Illness Ms. Gomez presented to clinic today for planned urodynamic testing and cystosco py. History of urinary urgency, frequency and urgency incontinence. This is arielle thersome for her. She has also had some issues with Urinary tract infections. She is currently being treated for a UTI, but her symptoms have not completely r esolved. She has also had some flank pain with this. She has been treated by h er primary care physician with antibiotics, and is completing a course of Macrod antin. She does not feel that her symptoms have resolved. She also had some im aging done locally, but the results of this were not available today. Medical History: Diagnosis Date Arrhythmia Arthritis 06/03/2009 Asthma Back pain 06/03/2009 Bursitis of knee 06/03/2009 CAD (coronary artery disease) 06/03/2009 Chest pain 06/03/2009 Coronary artery disease 2007 per pt report, stent placement X 2 Deep vein thrombosis (DVT) ([facility]) 2006 Depression 06/03/2009 Gastrointestinal disorder Diverticulitis GERD (gastroesophageal reflux disease) HLD (hyperlipidemia) 06/03/2009 Hypertension Hypothyroidism 06/03/2009 On supplemental oxygen therapy RAJI (obstructive sleep apnea) noncompliant with CPAP Osteoporosis Other emphysema (HCC) PE (pulmonary embolism) 06/03/2009 Pulmonary embolism ([facility]) 2006 Restless leg syndrome 06/03/2009 Stomach disorder needs esophageal dilitation periodically Urinary incontinence 06/03/2009 Urinary tract infection Surgical History: Procedure Laterality Date HX APPENDECTOMY 1964 HX HYSTERECTOMY 1992 plus ovaries CATARACT REMOVAL WITH IMPLANT Bilateral 04/22/2004 HX VERTEBROPLASTY 2015 lumbar COLOSTOMY 01/27/2015 COLON SURGERY COLONOSCOPY ~2012 HEART CATHETERIZATION 2003, 2012 x2 stent HERNIA REPAIR Social History Socioeconomic History Marital status: Single Spouse name: Not on file Number of children: Not on file Years of education: Not on file Highest education level: Not on file Occupational History Not on file Tobacco Use Smoking status: Former Smoker Packs/day: 0.10 Years: 10.00 Pack years: 1.00 Last attempt to quit: 10/13/2003 Years since quittin.8 Smokeless tobacco: Never Used Substance and Sexual Activity Alcohol use: No Alcohol/week: 0.0 oz Drug use: No Sexual activity: Never Other Topics Concern Not on file Social History Narrative Not on file Family History Problem Relation Age of Onset Hypertension Brother Hypertension Maternal Grandmother Hypertension Maternal Grandfather Allergies Allergen Reactions Levofloxacin Allergy recorded in SMS: LEVOFLOXACIN~Reactions: ARM SWELLING Review of Systems Constitutional: Negative for activity change, appetite change, chills, diaphores is, fatigue, fever and unexpected weight change. HENT: Negative for congestion, hearing loss, mouth sores and sinus pressure. Eyes: Negative for visual disturbance. Respiratory: Negative for apnea, cough, chest tightness and shortness of breath. Cardiovascular: Negative for chest pain, palpitations and leg swelling. Gastrointestinal: Negative for abdominal pain, blood in stool, constipation, kenya rrhea, nausea, rectal pain and vomiting. Genitourinary: Positive for dysuria, flank pain, frequency and urgency. Negative for decreased urine volume, difficulty urinating, dyspareunia, enuresis, genital sores, hematuria, pelvic pain, vaginal bleeding, vaginal discharge and vaginal pain. Musculoskeletal: Negative for arthralgias, back pain, gait problem and myalgias. Skin: Negative for rash and wound. Neurological: Negative for dizziness, tremors, seizures, syncope, weakness, ligh t-headedness, numbness and headaches. Hematological: Negative for adenopathy. Does not bruise/bleed easily. Psychiatric/Behavioral: Negative for decreased concentration and dysphoric mood. The patient is not nervous/anxious. Objective: albuterol (PROAIR HFA) 90 mcg/actuation inhaler Inhale 2 Puffs by mouth into the lungs daily as needed for Wheezing or Shortness of Breath. Shake well before use. Aspirin 81 mg Tab Take 1 Tab by mouth Daily. clopidogrel (PLAVIX) 75 mg Tab Take 75 mg by mouth Daily. cycloSPORINE (RESTASIS) 0.05 % ophthalmic emulsion Place 1 Drop into or arou nd eye(s) daily as needed. dicyclomine (BENTYL) 10 mg capsule Take 10 mg by mouth four times daily. duloxetine DR (CYMBALTA) 60 mg capsule Take 60 mg by mouth daily. estradiol (ESTRACE) 0.01 % (0.1 mg/g) vaginal cream Insert or Apply one g to vaginal area three times weekly. Apply 1 finger tip amount (1 g) of cream vagin ally, 3x/wk at bedtime, as directed. ezetimibe (ZETIA) 10 mg tablet Take 10 mg by mouth Daily. fesoterodine ER(+) (TOVIAZ) 4 mg tablet Take one tablet by mouth daily. Do n ot cut/ crush/ chew fluticasone (FLONASE) 50 mcg/actuation nasal spray Apply 1 [place] to each nos tril as directed daily as needed. Shake bottle [...] Place 1 Tab under tongue As Needed f or Chest Pain. give x 3 doses and [...] mg by mouth at bedtime as needed. There were no vitals filed for this visit. There is no height or weight on file to calculate BMI. Physical Exam Constitutional: She is oriented to person, place, and time. She appears well-dev eloped and well-nourished. HENT: Head: Normocephalic and atraumatic. Eyes: EOM are normal. Neck: Normal range of motion. Pulmonary/Chest: Effort normal. No respiratory distress. Musculoskeletal: Normal range of motion. Neurological: She is alert and oriented to person, place, and time. Skin: Skin is warm and dry. Psychiatric: She has a normal mood and affect. Her behavior is normal. Judgment and thought content normal. Vitals reviewed. Assessment and Plan: Ms. Gomez presents to clinic as outlined. She appears to still having urinary urgency and frequency and a current UTI. She is currently completing a course o f antibiotics for this (Macrodantin) but does not feel that those have helped wi th those symptoms. She has completed a course of this previously. We discussed having her repeat urine culture and will try a different antibiotic. Recommend Doxycycline 100 mg PO BID x 7days and then to recheck urine about week after th at. Recommend rescheduling her urodynamic testing and cystoscopy and she agrees with this plan. The patient had questions about an abdominal hernia which is bothersome for her. Recommend General Surgery consultation for evaluation and management of this. History and examination reviewed and guthrie elements confirmed. Discussed in detail with the patient and questions answered. I personally saw and evaluated the patient and determined the plan of care. Darius Alvarez MD, MPH documented in this encounter Plan of Treatment Not on filedocumented as of this encounter Visit Diagnoses Diagnosis Acute cystitis without hematuria - Primary Acute cystitis Urinary urgency Urgency of urination Urinary frequency Urge incontinence Ventral hernia without obstruction or gangrene Ventral hernia, unspecified, without mention of obstruction or gangrene documented in this encounter
--- OUTSIDE RECORDS SUMMARY | 2018-08-30 08:37 | XMS REPORT | Encounter Summary ---
Author Author [facility] Organization [facility] Address Unknown Phone Unavailable Care Team Providers Care Gut Dropper Name Role Phone Donna Brown RN Unavailable Unavailable Michael Mandujano MD Unavailable Alfonso Lino DO Unavailable Alfonso Keith MD Unavailable Eliud Brewer MD PCP Reason for Referral * Consult, Test & Treat (Routine) Referred By Contact Referred To Contact Status Reason Specialty Diagnoses / Procedures Darius Alvarez MD [address] Ortho[facility] [address] [place] [address] [place] [address] [place] [address] No Auth Needed Specialty Services General Surgery Diagnoses Required Parastomal hernia without obstruction or gangrene Encounter Details Care Team Description Date Type Department Darius Alvarez MD [address] Orth[facility] [address] [place] [address] [phone] Recurrent UTI (urinary tract infection) (Primary Dx); Parastomal hernia without obstruction or gangrene 08/24/2018 Clinical [facility] [address] [place] [id number] Social History Date Tobacco Use Types Packs/Day [...] impairment: No documented as of this encounter Plan of Treatment Order Schedule Name Type Priority Associated Diagnoses Expected: 08/24/2018 (Approximate), Expires: 08/24/2019 URINALYSIS DIPSTICK Lab Routine Recurrent UTI (urinary REFLEX TO CULTURE tract infection) Order Schedule Name Type Priority Associated Diagnoses Ordered: 08/24/2018 AMB REFERRAL TO GENERAL Outpatient Routine Parastomal hernia without SURGERY Referral obstruction or gangrene documented as of this encounter Visit Diagnoses Diagnosis Recurrent UTI (urinary tract infection) - Primary Urinary tract infection, site not specified Parastomal hernia without obstruction or gangrene Hernia of unspecified site of abdominal cavity without mention of obstruction or gangrene documented in this encounter
--- OUTSIDE RECORDS SUMMARY | 2018-08-30 08:37 | XMS REPORT | Encounter Summary ---
Author Author [facility] Organization [facility] Address Unknown Phone Unavailable Care Team Providers Care Senior Test Analyst Name Role Phone Donna Brown RN Unavailable Unavailable Michael Mandujano MD Unavailable Alfonso Lino DO Unavailable Alfonso Keith MD Unavailable Eliud Brewer MD PCP Reason for Referral * Consult, Test & Treat (Routine) Referred By Contact Referred To Contact Status Reason Specialty Diagnoses / Procedures Darius Alvarez MD [address] [facility] [address] [place] [address] Closed Specialty Services Diagnoses Required Urge incontinence of urine Reason for Visit * Reason Comments Urinary Incontinence * Consult, Test & Treat (Routine) Referred By Contact Referred To Contact Status Reason Specialty Diagnoses / Procedures [facility] [address] [place] [address] Darius Alvarez MD [address] [facility] [address] [place] [address] No Auth Needed Urology Diagnoses New: incontinence, eval for botox / Medicare / recs attchd-Dr. Easton castro NEW PATIENT Encounter Details Care Team Description Date Type Department Darius Alvarez MD [address] [facility] [address] [place] [address] [phone] Urge incontinence of urine (Primary Dx) 04/18/2018 Office Visit [facility] [address] [place] [id number] Social History Date Tobacco Use Types Packs/Day [...] of this encounter Last Filed Vital Signs Reading Time Taken Comments Vital Sign 140/88 04/18/2018 1:17 PM BIOPROCESS DEVELOPMENT ENGINEER Blood Pressure 59 04/18/2018 1:17 PM BIOPROCESS DEVELOPMENT ENGINEER Pulse - - Temperature - - Respiratory Rate - - Oxygen Saturation - - Inhaled Oxygen Concentration 78 kg (172 lb) 04/18/2018 1:08 PM BIOPROCESS DEVELOPMENT ENGINEER Weight 157.5 cm (5' 2") 04/18/2018 1:08 PM BIOPROCESS DEVELOPMENT ENGINEER Height 31.46 04/18/2018 1:08 PM BIOPROCESS DEVELOPMENT ENGINEER Body Mass Index documented in this encounter Functional Status Date [...] encounter Patient Instructions * Patient Instructions* Ailyn Stearns, BETI - 04/18/2018 1:00 PM BIOPROCESS DEVELOPMENT ENGINEER [facility] [address] [place], [place] [facility] [address] [facility] [address] [place], [place] [facility] [address] [place], [place] [facility] [address] [place], [place] [facility] [address] [place], [place] [facility] [address] [place], [place] [facility] [address] [place], [place] [address] [place], [place] [facility] [address] [place], [place] OUT PATIENT @ [facility] [address] [place], [place] [phone] [facility] [address] [place], [place] [facility] [address] [place] [facility] [address] [place], [place] [facility] [address] [place], [place] [facility] [address] [address], [place] [facility] [address] [place], [place] [facility] [address] [place] [id number] PH FAX [facility] [address] [place], [place] [facility] [address] [place], [place] [facility] [address] [place] [address] Fingertip Application Method For Estrogen Cream 1. Wash your hands with soap and water and dry thoroughly. 2. Squeeze tube to express out 1 gram of cream (about enough to cover the tip of your index finger, from the last joint to the finger tip. (see Figure 1) Figure 1 This instruction sheet is provided to help your practitioner explain his/her pre ferred method for applying estrogen cream. Your doctor or nurse will likely use this sheet to assist in their patient education activities. Please note that t his information is not intended to replace your practitioners instructions: a lways follow your doctors specific directions regarding the use of any prescr iption medications 3. Locate the vaginal opening (see Figure 2). Immediately above the vaginal ope alon is the urethra (a small opening where urine is eliminated from you body). The urethra may not be as easily identified as the vagina because the opening is much smaller, however, us the diagram to determine its approximate location. 4. Carefully spread the cream onto the top wall of the vagina just underneath th e urethral area (see Figure 2, yellow highlighted area). As the cream is spread , some may be gently inserted into the vagina: however, it is not necessary to p ush the cream high into the vagina. Rub this into the vaginal wall underneath th e urethra as one would rub lotion into the skin. 5. Do not use the applicator that may come with the prescription for the estroge n cream. Use only the small finger tip amount as noted above. Figure 2 ROCESS DEVELOPMENT ENGINEER documented in this encounter Progress Notes * Darius Alvarez MD - 04/18/2018 1:00 PM BIOPROCESS DEVELOPMENT ENGINEER UROLOGY CLINIC NOTE Date of Service: 04/18/2018 Subjective: History of Present Illness April Gomez is a 77 y.o. female with h/o OAB, ISD who presents [facility] with Dr. Alvarez. She is seen Dr. Mccormack, in [place], [place] who performe d UDS and in 07/2017, reporting OAB and ISD. The patient has previously seen Dr. Alvarez and underwent Coaptite injections x2 in 2005. Since that time she st ates that she has had worsening incontinence. She wears 4 depends daily and rep orts incontinence with standing and urgency. She denies leaking with coughing a nd sneezing. She reports nocturia x3 with some incontinence at night as well. She denies sensation of incomplete emptying, however does report straining with bowel movements. She drinks 1 cup of coffee in the morning, swing water through out the day, soda, and takes water to bed. She has been on Myrbetriq for the 3 months with minimal improvement in her symptoms and was referred for Botox injections. Over the last 2 weeks she reports dysuria and vague pelvic pain. S he denies family history of genitourinary cancers, denies a history or hematuria . She states that she has cardiac clearance for surgery by her ruby on rails developer in [facility], Dr. Rosales. She states that she does not want a sling, but believes th at she has had Botox previously which helped [...] PE (pulmonary embolism) 06/03/2009 Pulmonary embolism (HCC) 2005 Restless leg syndrome 06/03/2009 Stomach disorder needs [...] vagin ally, 3x/wk at bedtime, as directed. 42.5 g 11 ezetimibe (ZETIA) 10 mg tablet Take 10 mg by mouth Daily. fluticasone (FLONASE) 50 mcg/actuation nasal spray Apply 1 [place] to each nos tril as directed daily [...] of breath. Negative for apnea, cough and kasandra st tightness. Cardiovascular: Positive for leg swelling. Negative for chest pain and palpitati ons. Gastrointestinal: Positive for abdominal pain. Negative for blood in stool, cons tipation, diarrhea, nausea, rectal pain and vomiting. Genitourinary: Positive for dysuria, enuresis, urgency and vaginal pain. Negativ e for decreased urine volume, difficulty urinating, flank pain, frequency, genit al sores and hematuria. Musculoskeletal: Positive for back pain, gait problem and myalgias. Negative for arthralgias. Skin: Negative for rash and wound. Neurological: Positive for tremors and weakness. Negative for dizziness, seizure s, syncope, light-headedness, numbness and headaches. Hematological: Negative [...] (FLONASE) 50 mcg/actuation nasal spray Apply 1 [place] to each nos tril as directed daily [...] time. She appears well-dev eloped and well-nourished. No distress. HENT: Head: Normocephalic and atraumatic. Right Ear: External ear normal. Left Ear: External ear normal. Eyes: EOM are normal. Right eye exhibits no discharge. Left eye exhibits no disc harge. Neck: Normal range of motion. No JVD present. No tracheal deviation present. Cardiovascular: Normal rate and regular rhythm. Pulmonary/Chest: Effort normal. No respiratory distress. Abdominal: Soft. She exhibits no distension. Genitourinary: Genitourinary Comments: Normal sensation b/l, - leak, - prolapse, - atrophy, sandro ropriately estrogenized Musculoskeletal: Normal range of motion. Neurological: [...] operative note) 07/2017: UDS by Dr. Mccormack ([place]): ISD, OAB, mixed incontinence 04/18/18: PE: Normal sensation b/l, + leak with very strong valsalva, no hypermob ility, no prolapse, good levator tone, + atrophic vaginitis PVR: 38 cc Questionaires: MARGIE-6: 12 IIQ-7: 20 PISQ-12: #1 sometimes OAB-V8: 37 Urinary incontinence 77 y.o. female with h/o OAB, ISD who presents to re-establish with Dr. Di campoverde. She is seen Dr. Mccormack, in [place], [place] who performed UDS and in 07/2017 , reporting OAD and ISD. The patient has previously seen Dr. Alvarez and josé luis coffey coaptated injections x2 in 2005. Since that time she states that she has had worsening urge urinary incontinence. Exam was significant for atrophic vagi nitis, leak only with very strong Valsalva. She emptied well today with PVR 37c c. We discussed that Myrbetriq has not worked for her over the last few months, we will trial a different medication. We will delay more invasive Botox therapy until after trialing another medication, which has the potential to improve her urgency. Additionally she would benefit from Estrace cream 3 times weekly. She would benefit from pelvic floor physical therapy if it is available in [place], [place]. All questions were answered and she is amenable to the plan. Vaginal Estrace cream 3 times weekly Discontinue Myrbetriq Start Trospium 60 XR daily PFPT with external referral to [facility] in 3-4 months Patient seen and [...] clinic as outlined. History of urinary urgency, frequenc y and incontinence. She is having recurrent symptoms as outlined. She is bothe red by symptoms. Will try starting Trospium 60 mg XR daily to see if this will help with symptoms. She was counseled about behavioral therapies. We reviewed behavioral treatments in detail including options such as pelvic floor exercise, urge suppression methods, timed voiding, diet modification, hydration, and prev ention and treatment of constipation. Provided written instruction materials. PVR by ultrasound today=38 mL She was given information on working with a physical therapist and a prescriptio n for this. Vaginal estrogen. Will RTC in about 3 months or sooner for problem s. I personally saw and evaluated the patient and determined the plan of care. I p ersonally performed the guthrie portions of the E&M visit, discussed the case with the resident, and concur with resident documentation of history, physical examination, assessment, and treatment plan unless otherwise noted. Draius Alvarez MD, MPH documented in this encounter Plan of Treatment Order Schedule Name Type Priority Associated Diagnoses Ordered: 04/18/2018 AMB REFERRAL TO [facility] Outpatient Routine Urge incontinence of FLOOR REHAB Referral urine documented as of this encounter Visit Diagnoses Diagnosis Urge incontinence of urine - Primary Urge incontinence * Assessment & Plan Note - Kwabena Lawrence MD - 04/18/2018 3:26 PM BIOPROCESS DEVELOPMENT ENGINEER Associated Problem(s): Urinary incontinence 77 y.o. female with h/o OAB, ISD who presents to re-establish with Dr. Di campoverde. She is seen Dr. Mccormack, in [place], [place] who performed UDS and in 07/2017 , reporting OAD and ISD. The patient has previously seen Dr. Alvarez and josé luis coffey coaptated injections x2 in 2005. Since that time she states that she has had worsening urge urinary incontinence. Exam was significant for atrophic vagi nitis, leak only with very strong Valsalva. She emptied well today with PVR 37c c. We discussed that Myrbetriq has not worked for her over the last few months, we will trial a different medication. We will delay more invasive Botox therapy until after trialing another medication, which has the potential to improve her urgency. Additionally she would benefit from Estrace cream 3 times weekly. She would benefit from pelvic floor physical therapy if it is available in [place], [place]. All questions were answered and she is amenable to the plan. Vaginal Estrace cream 3 times weekly Discontinue Myrbetriq Start Trospium 60 XR daily PFPT with external referral to [facility] in 3-4 months ROCESS DEVELOPMENT ENGINEER documented in this encounter
--- OUTSIDE RECORDS SUMMARY | 2018-08-30 08:37 | XMS REPORT | Encounter Summary ---
Author Author [facility] Organization [facility] Address Unknown Phone Unavailable Care Team Providers Care Airfield Services Officer Name Role Phone Donna Brown RN Unavailable Unavailable Michael Mandujano MD Unavailable Alfonso Lino DO Unavailable Alfonso Kieth MD Unavailable Eliud Brewer MD PCP Reason for Visit * Reason Comments Urinary Frequency Urinary Incontinence Encounter Details Care Team Description Date Type Department Darius Alvarez MD [address] [facility] L[address] [place] [address] Urinary urgency (Primary Dx); Urge incontinence 07/25/2018 Office Visit [facility] [address] [place] [address] Social History Date Tobacco Use [...] Pressure 82 07/25/2018 9:23 AM CDT Pulse - - Temperature - - Respiratory Rate - - Oxygen Saturation - - Inhaled Oxygen Concentration 74.8 kg (165 lb) 07/25/2018 9:23 AM CDT Weight 157.5 cm (5' 2") 07/25/2018 9:23 AM CDT Height 30.18 07/25/2018 9:23 AM CDT Body Mass Index documented in this encounter [...] * Patient Instructions* Ailyn Stearns RN - 07/25/2018 9:00 AM CDT About Urodynamics: Urodynamics is a set of tests that measure bladder function (including storage and emptying) allowing physicians to understand and treat pat ients with bladder problems such as urinary leakage (incontinence) or bladder em ptying (voiding). The examination is performed by nurses who have been speciall y trained in urodynamic testing. During a Urodynamics Study The study may be done in your doctors office, a clinic, or a hospital. The st udy may take up to an hour or more. This depends on which tests your doctor perf orms. The tests are generally painless. You wont need sedating medication. Tests That May Be Done Uroflowmetry. This measures the amount and speed of urine you void from your summer dder. You urinate into a funnel. Its attached to a computer that records your urine flow over time. The amount of urine left in your bladder after you void m ay also be measured right after this test. Cystometry. This test evaluates how much your bladder can hold. It also measures how strong your bladder muscle is and how well the signals work that tell you w hen your bladder is full. Your health care provider fills your bladder with ster ile water or saline solution, through a catheter. Your doctor will instruct you to report any sensations you feel. Mention if theyre similar to symptoms you ve felt at home. Your doctor may ask you to cough, stand and walk, or bear keith n during this test. Electromyogram. This helps evaluate the muscle contractions that control urinati on, such as sphincter muscle contractions. Your health care provider may place e lectrode patches or wires near your rectum or urethra to make the recording. He or she may ask you to try to tighten or relax your sphincter muscles during this test. Pressure flow study. This test measures your detrusor, urethral, and abdominal p ressures. Detrusor is the muscle surrounding the bladder disla that relaxes to a llow your bladder to fill, and and contracts to squeeze out urine. A Pressure Fl ow Study is often performed after cystometry. Youre asked to urinate while a probe in your urethra measures pressures. At the beginning of the test, you will be asked to urinate into a machine that m easures your urine flow rate, so should arrive with a moderately full bladder. We will test your urine for signs of infection. If an infection is present the t est will need to be rescheduled. Please, contact our office before your appointm ent if you are having urinary tract infection symptoms. For the procedure, a sm all catheter is placed into your bladder and one into the rectum for pressure me asurements. The catheters are taped and connected to tubing that allows sterile water to be slowly infused into your bladder. After filling is complete, you w ill be asked to empty your bladder completely. Instructions for the day of your urodynamics: 1. Report to the session with a moderately full bladder. Try not to urinate at least one hour before arriving to the clinic. If you have been diagnosed with I nterstitial Cystitis, Neurogenic Bladder, Urinary Retention, or if you are unabl e to urinate, please empty your bladder before reporting for your procedure. 2. Wear comfortable clothing. 3. Eat and drink normally for the exam. Do not fast. 4. Expect a minimum of one hour for the examination. 5. Discontinue all bladder relaxant medication three (3) days prior to examinati on, unless specifically advised to continue all medications. Medications to be avoided are: Bentyl, Ditropan, Detrol, Enablex, Gelnique, Hyoscamine, Levbid, Le vsin, Lesinex, Oxybutynin, Oxytrol, Oxytrol Patch, Pyridium, Pyridium Plus, Sanc tura, Toviaz, Urecholine, Urelle, Urospas, and Vesicare. If you are on medicati ons for prostate enlargement such as Cardura, Doxazosin, Flomax, Tamsulosin, Hyt rin, Terazosin, Rapaflo, Silodosin, please contact the office for further instru ctions. If you have questions regarding your specific medication, contact your doctors office. Getting Your Results After the study, youll get dressed and return to the consultation room. Test results may be ready soon after the study is finished. Or, you may return to you doctors office in a few days for your results. Your doctor can talk with angella pickens about the study report and your options. If you have a known urinary tract infection, please reschedule your appointment until treatment is completed. Contact your doctors office for further instru ctions. Thank you for choosing the [facility] Department of Urology for your health care needs. If you must cancel your Urodynamic Study appointment, please provide 72 hours [ (3) business days] notice which allows us to provide this important service to another patient. Cystoscopy Cystoscopy is a procedure that lets your doctor look directly inside your urethr a and bladder. It can be used to: Help diagnose a problem with your urethra, bladder, or kidneys. Take a sample (biopsy) of bladder or urethral tissue. Treat certain problems (such as removing kidney stones). Place a stent to bypass an obstruction. Take special x-rays of the kidneys. Based on the findings, your doctor may recommend other tests or treatments. What Is a Cystoscope? A cystoscope is a telescope-like instrument that contains lenses and fiberoptics (small glass wires that make bright light). The cystoscope may be straight and rigid, or flexible to bend around curves in the urethra. The doctor may look dir ectly into the cystoscope, or project the image onto a monitor. Getting Ready To prepare, stop taking any medications as instructed. Ask whether you should av oid eating or drinking anything after midnight before the procedure. Follow any other instructions your doctor gives you. Tell your doctor before the exam if you: Take any medications, such as aspirin or blood thinners Have allergies to any medications Are The Procedure Cystoscopy is done in the doctors office or hospital. The doctor and sometime s a nurse are present during the procedure. It takes only a few minutes, longer if a biopsy, x-ray, or treatment needs to be done. During the procedure: You lie on an exam table on your back, knees bent and legs apart. You are cov ered with a drape. Your urethra and the area around it are washed. Anesthetic jelly may be appli ed to numb the urethra. Other pain medication is usually not needed. In some nell es, you may be offered a mild sedative to help you relax. If a more extensive pr ocedure is to be done, such as a biopsy or kidney stone removal, general anesthe marcelino may be needed. The cystoscope is inserted. A sterile fluid is put into the bladder to expand it. You may feel pressure from this fluid. When the procedure is done, the cystoscope is removed. Cystoscopy 2009 [facility], [place]. Govt[employer] has certain rights After the Procedure If you had a sedative, general anesthesia, or spinal anesthesia, you must have s omeone drive you home. Once youre home: Drink plenty of fluids. You may have burning or light bleeding when you urinatethis is normal. Medications may be prescribed to ease any discomfort or prevent infection. Ta ke these as directed. Call your doctor if you have heavy bleeding or blood clots, burning that last s more than a day, a fever over 101F , or trouble urinating. [phone] [facility], [address] [place] [address]. All rig hts reserved. This information is not intended as a substitute for professional medical care. Always follow your healthcare professional's instructions. documented in this encounter Progress Notes * Darius Alvarez MD - 07/25/2018 9:00 AM CDT Date of Service: 07/25/2018 Subjective: April Gomez is a 78 y.o. female. History of Present Illness Ms. Gomez presents to clinic for followup of urinary urgency and frequency and incontinence. Seen once on 04/18/18. At that time was prscribed trospium XR and e strogen and pelvic PT. She has seen PT about 3 or 4 times. Not really doing pelv ic muscle exercises regularly. She was unable to get Trospium due to insurance d enial. She is interested in other therapy. She reports she continues to have 'no control' of urine. Also has abdominal joseph ias which are bothering her, but she has been seen and indicates told not a surg ical candidate due to multiple prior surgeries and other comorbidities. Medical History: Diagnosis Date Arrhythmia Arthritis 06/03/2009 Asthma Back pain 06/03/2009 Bursitis of knee 06/03/2009 CAD (coronary artery disease) 06/03/2009 Chest pain 06/03/2009 Coronary artery disease 2007 per pt report, stent placement X 2 Deep vein thrombosis (DVT) ([facility]) 2005 Depression 06/03/2009 Gastrointestinal disorder Diverticulitis GERD (gastroesophageal reflux disease) HLD (hyperlipidemia) 06/03/2009 Hypertension Hypothyroidism 06/03/2009 On supplemental oxygen therapy RAJI (obstructive sleep apnea) noncompliant with CPAP Osteoporosis Other emphysema ([facility]) PE (pulmonary embolism) 06/03/2009 Pulmonary embolism ([facility]) 2005 Restless leg syndrome 06/03/2009 Stomach disorder [...] rectal pain and vomiting. Genitourinary: Positive for frequency and urgency. Negative for decreased urine volume, difficulty urinating, dyspareunia, dysuria, enuresis, flank pain, genita l sores, hematuria, pelvic pain, vaginal bleeding, vaginal [...] (FLONASE) 50 mcg/actuation nasal spray Apply 1 [place] to each nos tril as directed daily [...] mg by mouth at bedtime as needed. Vitals: 07/25/18 0923 BP: 162/87 Pulse: 82 Weight: 74.8 kg (165 lb) Height: 157.5 cm (62") Body mass index is 30.18 kg/m. Physical Exam Constitutional: She is oriented [...] content normal. Vitals reviewed. Assessment and Plan: Ms Gomez presents as outlined. Continued urinary urgency, frequency and urgency incontinence. She is going to try to get Toviaz - which appears to be covered by her insurance. She will continue PT. Advised about need to continue pelvic mus ellyn exercises if this works for symptoms. We reviewed behavioral treatments in d etail including options such as pelvic floor exercise, urge suppression methods, timed voiding, diet modification, hydration, and prevention and treatment of co nstipation. Provided written instruction materials. She will RTC in about 3-4 months or sooner for problems. She may be a candidate for PTNS in the future if other treatments aren't helping. Probably not a kourtney date for Botox due to interest and likely inability to catheterize if needed. Suggest urodynamic assessment and cystoscopy to help guide next therapy steps. Will schedule as outpatient. History and examination reviewed and guthrie elements confirmed. Discussed in detail with the patient and questions answered. I personally saw and evaluated the patient and determined the plan of care. Darius Alvarez MD, MPH * Ailyn Stearns, RN - 07/25/2018 9:00 AM CDT PVR: 137mL documented in this encounter Plan of Treatment Not on filedocumented as of this encounter Visit Diagnoses Diagnosis Urinary urgency - Primary Urgency of urination Urge incontinence documented in this encounter
--- OUTSIDE RECORDS SUMMARY | 2018-08-30 08:37 | XMS REPORT | Encounter Summary ---
Author Author [facility] Organization [facility] Address Unknown Phone Unavailable Care Team Providers Care Mastic Man Name Role Phone Donna Brown RN Unavailable Unavailable Michael Mandujano MD Unavailable Alfonso Lino DO Unavailable Alfonso Keith MD Unavailable Eliud Brewer MD PCP Reason for Visit * Reason Comments Prior Authorization Encounter Details Care Team Description Date Type Department Darius Alvarez MD [address] Ortho[facility] L[address] [place] [address] Prior Authorization 04/19/2018 Telephone [facility] [address] [place] [address] Social History Date Tobacco Use [...] - Isabella Moraes - 04/19/2018 3:48 PM PROBLEM MANAGER Pt needs PA for trospium started. Call routed to MD Alvarez's nurse. LEM MANAGER documented in this encounter Plan of Treatment Not on filedocumented as of this encounter Visit Diagnoses Not on filedocumented in this encounter
[2018-08-30] MEDS ORDERED: LACTATED RINGERS 1,000 ML IV STA (08:48)
[2018-08-30] MEDS ORDERED: LACTATED RINGERS 1,000 ML IV ONE (08:50)
[2018-08-30] MEDS ORDERED: HURRICAINE EXT TUBE (BENZOCAINE) XX PRN (09:00)
[2018-08-30] MEDS ORDERED: proPOfol 200 MG/20 ML (DIPRIVAN) VIAL IV ONE (09:53)
[2018-08-30] MEDS ORDERED: MIDAZOLAM 2 MG/2 ML (VERSED) VIAL ONE (09:53)
[2018-08-30] MEDS ORDERED: RT-ALBUTEROL/IPRATROPIUM 3 ML (DUONEB) VIAL INH ONE (10:45)
[2018-08-30] MEDS ORDERED: RT-ALBUTEROL SULF 2.5 MG/3 ML PRE-MIX VIAL ONE (10:47)
--- NOTE | 2018-08-30 11:16 | Progress Note-Post Operative ---
Post-Operative Progess Note Surgeon (s)/Navigation Teacher (s) Surgeon LEXUS NELSON DO Navigation Teacher: none Pre-Operative Diagnosis Dysphagia, hx ulcer Post-Operative Diagnosis Same, with possible esophageal stricture and ?? foreign body Procedure & Operative Findings Date of Procedure 08/30/18 Procedure Performed/Findings EGD Anesthesia Type IV sedation by HOME IMPROVEMENT ADVISOR Estimated Blood Loss Estimated blood loss (mL): scant Specimens/Packing Specimens Removed none LEXUS NELSON DO Aug 30, 2018 11:16
--- NOTE | 2018-08-30 12:05 | NUR ---
WEST SADLER admitted to room , with an admitting diagnosis of HEMATEMESIS, on 08/30/18 from ENDO via STRETCHER, accompanied by BETI JOHNSON. WEST OBRIEN introduced to surroundings, call light, bed controls, phone, TV, temperature control, lights, meal times, smoking policy, visitor policy, side rail policy, bathrooms and showers. Patient Rights given to patient in the handbook. WEST SADLER verbalizes understanding that [facility] is not responsible for the loss or damage to any personal effects or valuables that are kept in the patients possession during their hospitalization. WEST SADLER verbalizes understanding of Interdisciplinary Patient Education. Patient WAS informed about the Rapid Response Team and its purpose. REPORT RECEIVED FROM BETI JOHNSON FROM [facility]. THIS RN WILL ASSUME PT CARE AT THIS TIME.
--- NOTE | 2018-08-30 12:57 | Diagnostic Imaging Report ---
INDICATION: Wheezing and hematemesis. TIME OF EXAM: 11:39 a.m. COMPARISON: Comparison is made with prior chest from 04/28/2018. FINDINGS: There appears to be tortuosity of the descending thoracic aorta. The lungs are clear. The pulmonary vascularity is normal. No infiltrates are seen. There is no effusion or pneumothorax. IMPRESSION: No acute cardiopulmonary process is detected. Dictated by: Dictated on workstation # [id number]
[2018-08-30] MEDS ORDERED: EZET10TA49 PO (13:20)
[2018-08-30] MEDS ORDERED: TEMA15CA PO (13:20)
[2018-08-30] MEDS ORDERED: LACT10SO64 PO (13:20)
[2018-08-30] MEDS ORDERED: SUCR1TAB PO (13:20)
[2018-08-30] MEDS ORDERED: ONDA4TAB11 PO (13:20)
[2018-08-30] MEDS ORDERED: DICY10CA12 PO (13:20)
[2018-08-30] MEDS ORDERED: ESTR42.511 VG (13:22)
--- NOTE | 2018-08-30 13:24 | NUR ---
SPOKE WITH THE PATIENT ABOUT HER MEDICATIONS. SHE HAD A LIST WITH HER FROM AND I COMPARED IT WITH THE EXT MED HX. SHE STATES SHE HAS NOT TAKEN HER MEDICATIONS LIKE SHE IS SUPPOSED TO FOR A COUPLE OF WEEKS DUE TO NAUSEA AND VOMITING. SHE IS PAST DUE FOR REFILL ON A COUPLE BUT STATES THAT IS WHY: 07-03-18 CARAFATE 1MG QID #120 05-09-18 ZETIA 10MG #90 SHE NO LONGER TAKING REGLAN OR GABAPENTIN THAT ARE ON HER LIST. (SHE TAKES LYRICA BID) SHE TAKES ASPIRIN 81MG AND A HAIR SKIN AND NAILS SUPPLEMENT DAILY OTC.
[2018-08-30] MEDS ORDERED: DOCUSATE SODIUM 100 MG (COLACE) CAP PO PRN (13:30)
[2018-08-30] MEDS ORDERED: CALCIUM CARBONATE 500 MG (TUMS) TAB.CHEW PO PRN (13:30)
[2018-08-30] MEDS ORDERED: diphenhydrAMINE 25 MG TAB (BENADRYL) PO PRN (13:30)
[2018-08-30] MEDS ORDERED: ACETAMINOPHEN 500 MG TAB (TYLENOL) PO PRN (13:30)
[2018-08-30] MEDS ORDERED: ONDANSETRON 4 MG/2 ML (SDV) Z0FRAN IVP PRN (13:30)
[2018-08-30] MEDS ORDERED: ONDANSETRON 4 MG (ZOFRAN) ORAL DISSOLVE TAB PO PRN ×2 (13:30→20:30)
[2018-08-30] MEDS: LACTATED RINGERS 1,000 ML IV SCH ×2 (13:53→22:28)
[2018-08-30 13:55] LABS: BASOPHILS % (AUTO) 0 % (0-10); EOSINOPHILS # (AUTO) 0.1 10^3/uL (0.0-0.3); EOSINOPHILS % (AUTO) 2 % (0-10); HEMATOCRIT 40 % (35-52); HEMOGLOBIN 12.7 G/DL (11.5-16.0); LYMPHOCYTES # (AUTO) 1.2 X 10^3 (1.0-4.0); LYMPHOCYTES % (AUTO) 16 % (12-44); MEAN CORPUSCULAR HEMOGLOBIN 24 PG (25-34); MEAN CORPUSCULAR HGB CONC 32 G/DL (32-36); MEAN CORPUSCULAR VOLUME 76 FL (80-99); MEAN PLATELET VOLUME 10.2 FL (7.4-10.4); MONOCYTES # (AUTO) 0.5 X 10^3 (0.0-1.0); MONOCYTES % (AUTO) 7 % (0-12); NEUTROPHILS # (AUTO) 5.5 X 10^3 (1.8-7.8); NEUTROPHILS % (AUTO) 75 % (42-75); PLATELET COUNT 301 10^3/uL (130-400); RED CELL DISTRIBUTION WIDTH 19.1 % (10.0-14.5); WHITE BLOOD COUNT 7.4 10^3/uL (4.3-11.0)
[2018-08-30] MEDS ORDERED: ALPRAZolam 0.25 MG (XANAX) TAB ONE (14:00)
[2018-08-30] MEDS: ALPRAZolam 0.25 MG (XANAX) TAB PO PRN ×2 (14:07→21:22)
[2018-08-30] MEDS: HYDROcodone/APAP 5 MG/325 MG (LORTAB) TAB PO PRN ×2 (14:09→18:53)
[2018-08-30] MEDS: RT-ALBUTEROL SULF 2.5 MG/3 ML PRE-MIX VIAL INH SCH ×3 (14:10→22:35)
[2018-08-30 14:16] LABS: ALANINE AMINOTRANSFERASE 7 U/L (0-55); ALBUMIN 4.1 GM/DL (3.2-4.5); ALKALINE PHOSPHATASE 96 U/L (40-136); BILIRUBIN,TOTAL 0.6 MG/DL (0.1-1.0); BUN/CREATININE RATIO 17; CALCIUM 10.2 MG/DL (8.5-10.1); CARBON DIOXIDE 24 MMOL/L (21-32); CHLORIDE 105 MMOL/L (98-107); CREATININE SERUM 0.82 MG/DL (0.60-1.30); GFR ESTIMATED > 60; GLUCOSE 128 MG/DL (70-105); POTASSIUM 3.7 MMOL/L (3.6-5.0); SODIUM 138 MMOL/L (135-145); TOTAL PROTEIN 6.9 GM/DL (6.4-8.2)
[2018-08-30 14:42] LABS: ABG BASE EXCESS -0.8 MMOL/L (-2.5-2.5); ABG OXYGEN SATURATION 98 % (94-100); ABG PCO2 41 MMHG (35-45); ABG PH 7.38 (7.37-7.43); ABG PO2 97 MMHG (79-93)
[2018-08-30 14:43] LABS: ALLENS TEST POSITIVE; INSPIRED O2 2 L; PATIENT TEMP 98; VENTILATOR NO
--- NOTE | 2018-08-30 15:19 | Pulmonary Consultation ---
History of Present Illness History of Present Illness Date of Consultation 08/30/18 15:14 Time Seen by Provider: 15:14 Date of Admission History of Present Illness 78yo with hx of oxygen dependent 3liters COPD, untreated RAJI directly admitted for observation after elective EGD secondary to respiratory distress associated with sedation. Pt states she now feels much improved. She is currently on 3 liters of oxygen. She states her breathing is back to her baseline. She does not use CPAP at home. She does not believe she has RAJI any more. I am consulted for pulmonary management. Allergies and Home Medications Allergies Coded Allergies: No Known Drug Allergies (Unverified , 06/10/15) Home Medications Albuterol Sulfate 18 Gm Hfa.aer.ad, 2 PUFF IH Q6H PRN for WHEEZING, (Reported) Aspirin 81 Mg Tablet.dr, 81 MG PO DAILY, (Reported) Clopidogrel Bisulfate 75 Mg Tablet, 75 MG PO DAILY, (Reported) Cyclosporine 1 Each Droperette, 1 DROP OU BID PRN for DRY EYES, (Reported) Dicyclomine HCl 10 Mg Capsule, 10 MG PO QID PRN for CRAMPS, (Reported) Doxycycline Hyclate 100 Mg Tablet, 100 MG PO BID, (Reported) 7 DAY SUPPLY FILLED 08/24/18 Duloxetine HCl 60 Mg Capsule.dr, 60 MG PO DAILY, (Reported) Estradiol 42.5 Gm Cream.appl, 1 GM VG MoWeFr, (Reported) Ezetimibe 10 Mg Tablet, 10 MG PO DAILY, (Reported) LAST FILLED #90 05-09-18 Fesoterodine Fumarate 4 Mg Tab.sr.24h, 4 MG PO DAILY, (Reported) Fluticasone Propionate 16 Gm Eros.susp, 1 SPRAY NS BID PRN for ALLERGIES, ( Reported) Lactulose 10 Gm/15 Ml Solution, 20 GM PO DAILY PRN for CONSTIPATION-3RD LINE, (Reported) Levothyroxine Sodium 112 Mcg Tablet, 112 MCG PO DAILY, (Reported) Lorazepam 1 Mg Tablet, 1 MG PO TID PRN for ANXIETY, (Reported) Metoprolol Succinate 50 Mg Tab.er.24h, 50 MG PO DAILY, (Reported) Multivitamin with Minerals 1 Each Tablet, 1 TAB PO DAILY, (Reported) Nitroglycerin 0.4 Mg Tab.subl, 0.4 MG SL UD PRN for CHEST PAIN, (Reported) Ondansetron 4 Mg Tab.rapdis, 4 MG PO Q8H PRN for NAUSEA/VOMITING-1ST LINE, (Reported) Oxycodone HCl 10 Mg Tablet, 10 MG PO Q6H PRN for PAIN-SEVERE, (Reported) Pantoprazole Sodium 40 Mg Tablet.dr, 40 MG PO DAILY, (Reported) Pregabalin 150 Mg Capsule, 150 MG PO BID, (Reported) Ropinirole HCl 4 Mg Tablet, 8 MG PO 1800, (Reported) TAKES 2 (4MG) TABLETS Sucralfate 1 Gm Tablet, 1 GM PO QID, (Reported) LAST FILLED #120 07-03-18 Temazepam 15 Mg Capsule, 30 MG PO HS, (Reported) TAKES 2 (15MG) CAPSULES Past [id number] Hx Patient Social History Alcohol Use: Denies Use Recreational Drug Use: No Type Used: Cigarettes Former Smoker, Quit: Mar 26, 1996 2nd Hand Smoke Exposure: No Recent Foreign Travel: No Contact w/Someone Who Travel: No Recent Infectious Disease Expo: No Recent Hopitalizations: No Immunizations Up To Date Tetanus Booster (TDap): Unknown PED Vaccines UTD: No Date of Pneumonia Vaccine: Apr 22, 2009 Date of Influenza Vaccine: Nov 20, 2017 Seasonal Allergies Seasonal Allergies: Yes Past Medical History Surgeries: Yes Abdominal, Appendectomy, Bladder Surgery, Bowel Surgery, Cardiac, Coronary Stent, Hysterectomy, Oophorectomy, Orthopedic, Tonsillectomy Respiratory: Yes COPD Currently Using CPAP: No Currently Using BIPAP: No Cardiac: Yes (CARDIAC CATH WITH STENTS X2) Chronic Edema/Swelling, Coronary Artery Disease, Deep Vein Thrombosis, Heart Attack, High Cholesterol, Hypertension Neurological: Yes (COGNITIVE DEFICIT) Vertigo 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 Disorders: No HELPER/DRIVER History: Hysterectomy, Menopausal Genitourinary: Yes (INCONTINENCE) Kidney Infection, Bladder Infection, UTI-Chronic Gastrointestinal: Yes (hematemesis) Abdominal Hernia, Gastroesophageal Reflux, Diverticulosis, Esophagitis Musculoskeletal: Yes Osteoporosis, Arthritis, Chronic Back Pain, Fractures Endocrine: Yes Hypothyroidsim HEENT: Yes (FULL DENTURES) Dysphagia Loss of Vision: Denies Hearing Impairment: Denies Cancer: No Psychosocial: Yes (EXTENSIVE HISTORY OF RX ABUSE/OVERDOSES--OPIATES AND BENZO'S ) Anxiety, Depression Integumentary: No Blood Disorders: No Adverse Reaction/Blood Tranf: No Family Medical History Family history: Hypertension G8 BROTHER Myocardial infarction 19 MOTHER G8 BROTHER Review of Systems Time Seen by Provider: 15:17 Constitutional: Weakness, Malaise; No: Fever, Chills, Sweats, Other Eyes: No: Pain, Vision change, Conjunctivae inflammation, Eyelid inflammation, Other, Redness ENT: Nose congestion; No: Ear pain, Ear discharge, Nose pain, Nose discharge, Mouth pain, Mouth swelling, Throat pain, Throat swelling, Other Respiratory: Cough, Dry, Shortness of breath, SOB with excertion, Wheezing; No: Hemoptysis, Pleuritic Pain, Sputum, Wheezing, Other Cardiovascular: Palpitations, Paroxysmal Noc. Dyspnea; No: Chest Pain, Orthopnea, Edema, Lt Headedness, Other Sepsis Event Evaluation Height, Weight, BMI Height: 5'2.00" Weight: 162lbs. 6.0oz. 73.570109fl; 30.5 BMI Method:Stated Exam Exam Vital Signs Date Time Temp Pulse Resp B/P (MAP) Pulse Ox O2 Delivery O2 Flow Rate FiO2 08/30/18 14:43 Nasal Cannula 2.00 08/30/18 14:10 98 Nasal Cannula 2.00 08/30/18 12:41 OxyMask 10.00 08/30/18 12:05 Nasal Cannula 2.00 08/30/18 12:05 98.0 69 20 152/83 98 Nasal Cannula 2.00 08/30/18 11:30 65 20 96 Nasal Cannula 2 08/30/18 11:25 73 20 96 Nasal Cannula 2 08/30/18 11:20 74 20 95 Nasal Cannula 2 08/30/18 11:15 67 20 95 Nasal Cannula 2 08/30/18 11:10 68 20 99 Nasal Cannula 4 08/30/18 11:05 71 24 98 OxyMask 10 08/30/18 11:00 69 24 100 OxyMask 10 08/30/18 10:55 100 OxyMask 10.00 08/30/18 10:50 69 24 100 OxyMask 10 08/30/18 10:50 66 24 100 OxyMask 10 08/30/18 10:45 66 24 99 OxyMask 10 08/30/18 10:40 68 24 99 OxyMask 10 08/30/18 10:38 OxyMask 10 08/30/18 10:35 68 24 99 OxyMask 10 08/30/18 10:35 70 24 99 OxyMask 10 08/30/18 10:30 66 24 98 OxyMask 10 08/30/18 08:45 98.0 70 18 153/99 117 97 Room Air Height & Weight Height: 5'2.00" Weight: 162lbs. 6.0oz. 73.452791dk; 30.5 BMI Method:Stated General Appearance: No Apparent Distress, WD/WN HEENT: PERRL/EOMI, Normal ENT Inspection, Pharynx Normal Neck: Full Range of Motion, Normal Inspection, Non Tender, Supple Respiratory: Chest Non Tender, Lungs Clear, Normal Breath Sounds, No Accessory Muscle Use, No Respiratory Distress Cardiovascular: Regular Rate, Rhythm, No Edema, No Gallop Capillary Refill: Less Than 3 Seconds Gastrointestinal: normal bowel sounds, non tender, soft, no organomegaly Extremity: Normal Capillary Refill, Normal Inspection, No Pedal Edema Neurologic/Psychiatric: Alert, Oriented x3 Skin: Normal Color, Warm/Dry Lymphatic: No Adenopathy Results Lab Laboratory Tests 08/30/18 13:45 Assessment/Plan Assessment/Plan Acute respiratory distress during elective EGD probably secondary to RAJI combined with COPD -Pt will need out pt PSG -SVNs -Will also do out pt PFT. -Continue to monitor tonight to ensure stability ARAM SANCHEZ DO Aug 30, 2018 15:19
--- NOTE | 2018-08-30 16:28 | OPERATIVE REPORT ---
DATE OF SERVICE: 08/30/2018 PREOPERATIVE DIAGNOSES: Hematemesis, dysphagia. POSTOPERATIVE DIAGNOSES: 1. Hematemesis. 2. Questionable foreign object in the esophagus. 3. Questionable esophageal stricture. 4. Respiratory distress. PROCEDURE PERFORMED: Esophagogastroduodenoscopy. SURGEON: Valentín Brooks DO. CONDITIONING COACH: None. ANESTHESIA: IV sedation by DATA MANAGEMENT. SPECIMENS: None. BLOOD LOSS: None. FLUIDS: Per Anesthesia. POSTOPERATIVE CONDITION The patient was having a little bit of wheezing and she is actually going to get admitted because she is very anxious and wanted to make sure her lungs are okay and she did not get any flash pulmonary edema or aspiration. INDICATION FOR PROCEDURE: The patient is an 78-year-old female who had some hematemesis and has complained of some dysphagia and needed an EGD. FINDINGS: The patient had what looked like almost a foreign object was stuck in the distal portion of the esophagus that was blue and it did look like there was some of it down below this. She also had a little bit of retained food and possible esophageal stricture. PROCEDURE NOTE: After informed consent was obtained, the patient was brought to the endoscopy suite, placed on the bed in left lateral decubitus position. She was administered IV sedation by the DATA MANAGEMENT who monitored her vitals the entire time, heart rate, blood pressure and pulse ox. Scope was inserted down the mouth and into the esophagus. In the esophagus at the distal portion, there was almost looked like something blew kind of almost imbedded in the wall. There are bits of food retained, it was hard to get into the stomach, it was almost strictured. While we were in the esophagus, I did try and flushed this off and then while we were doing this, the patient's saturation dropped, so pulled the scope out, bagged her and got her backup and then attempted this again. At this time, I was able to push into the stomach. Stomach looked okay. I did not see any obvious but again while in the stomach, she got bradycardic and pulse ox dropped and so we just decided to cancel the procedure. Because the patient is a little bit wheezy and she is anxious, tachypneic, we are going to admit her for observation and have the hospitalist see her as well as pulmonary consult. Job ID: [id number] DocumentID: [id number] Dictated Date: 08/30/2018 11:38:29 Fork Truck Driver Date: 08/30/2018 16:28:04 Dictated By: VALENTÍN BOROKS DO
[2018-08-30] MEDS: SENNA W/DOCUSATE (SENOKOT S) TABLET PO SCH (19:42)
--- NOTE | 2018-08-30 20:28 | Progress Note - Hospitalist ---
Progress Note CC: Hypoxia after EGD HPI: This is a very debilitated white female [facility] pt of Dr. Brewer well known to the hospital service due to multiple hospitalizations on a frequent basis who presented after an uncomplicated EGD but began suffering some hypoxia requiring admission to the hospital for observation and Dr. Agee consultation. She is doing much better but having some mild tachypnea and will monitor pt for any respiratory distress. YSABEL ABREU DO Aug 30, 2018 20:28
[2018-08-30] MEDS ORDERED: NITROGLYCERIN 0.4 MG SL TABS BTL 25'S SL PRN (20:30)
[2018-08-30] MEDS ORDERED: RT-ALBUTEROL SULF 2.5 MG/3 ML PRE-MIX VIAL IH PRN (20:30)
[2018-08-30] MEDS ORDERED: LORazepam 1 MG (ATIVAN) TAB PO PRN (20:30)
[2018-08-30] MEDS ORDERED: DICYCLOMINE 10 MG (BENTYL) CAP PO PRN (20:30)
[2018-08-30] MEDS ORDERED: NON-FORMULARY MEDICATION 1 EA EA (Oxycodone HCl 10 MG) PO PRN (20:30)
[2018-08-30] MEDS ORDERED: FLUTICASONE NASAL SPRAY (FLONASE) 16 GM BTL NS PRN (20:30)
[2018-08-30] MEDS ORDERED: NON-FORMULARY MEDICATION 1 EA EA (Doxycycline Hyclate 100 MG) PO SCH (21:00)
[2018-08-30] MEDS ORDERED: NON-FORMULARY MEDICATION 1 EA EA (Pregabalin (Lyrica) 150 MG) PO SCH (21:00)
[2018-08-30] MEDS ORDERED: NON-FORMULARY MEDICATION 1 EA EA (Temazepam 30 MG) PO SCH (21:00)
[2018-08-30] MEDS ORDERED: rOPINIRole 1 MG (REQUIP) TABLET ONE ×2 (21:49→21:54)
[2018-08-30] MEDS: SUCRALFATE 1 GM (CARAFATE) TAB PO SCH (21:57)
[2018-08-30] MEDS ORDERED: TEMAZEPAM 15 MG (RESTORIL) CAP ONE (21:59)
[2018-08-31 00:25] VITALS: BP 161/84
[2018-08-31] MEDS: RT-ALBUTEROL SULF 2.5 MG/3 ML PRE-MIX VIAL INH SCH ×3 (02:37→11:08)
[2018-08-31 04:00] VITALS: BP 178/82
[2018-08-31] MEDS: LACTATED RINGERS 1,000 ML IV SCH (05:23)
[2018-08-31] MEDS: ALPRAZolam 0.25 MG (XANAX) TAB PO PRN (06:18)
[2018-08-31] MEDS: HYDROcodone/APAP 5 MG/325 MG (LORTAB) TAB PO PRN ×2 (06:20→11:29)
[2018-08-31] MEDS ORDERED: LACTULOSE SYRUP 10GM/15ML (ENULOSE) 30ML UDC PO PRN (06:45)
[2018-08-31] MEDS ORDERED: ARTIFICAL TEARS 0.4 ML UNIT DOSE (REFRESH PLUS) OU PRN (06:45)
[2018-08-31 06:49] LABS: BASOPHILS % (AUTO) 0 % (0-10); EOSINOPHILS # (AUTO) 0.3 10^3/uL (0.0-0.3); EOSINOPHILS % (AUTO) 4 % (0-10); HEMATOCRIT 36 % (35-52); HEMOGLOBIN 11.2 G/DL (11.5-16.0); LYMPHOCYTES # (AUTO) 1.8 X 10^3 (1.0-4.0); LYMPHOCYTES % (AUTO) 24 % (12-44); MEAN CORPUSCULAR HEMOGLOBIN 24 PG (25-34); MEAN CORPUSCULAR HGB CONC 31 G/DL (32-36); MEAN CORPUSCULAR VOLUME 77 FL (80-99); MEAN PLATELET VOLUME 11.3 FL (7.4-10.4); MONOCYTES # (AUTO) 0.7 X 10^3 (0.0-1.0); MONOCYTES % (AUTO) 10 % (0-12); NEUTROPHILS # (AUTO) 4.5 X 10^3 (1.8-7.8); NEUTROPHILS % (AUTO) 62 % (42-75); PLATELET COUNT 278 10^3/uL (130-400); RED CELL DISTRIBUTION WIDTH 19.1 % (10.0-14.5); WHITE BLOOD COUNT 7.2 10^3/uL (4.3-11.0)
[2018-08-31] MEDS ORDERED: MULTIVIT W/MINERALS TAB (THERAGRAN M) PO SCH (07:00)
[2018-08-31 07:12] LABS: ALANINE AMINOTRANSFERASE 9 U/L (0-55); ALBUMIN 3.4 GM/DL (3.2-4.5); ALKALINE PHOSPHATASE 78 U/L (40-136); BILIRUBIN,TOTAL 0.5 MG/DL (0.1-1.0); BUN/CREATININE RATIO 19; CALCIUM 9.4 MG/DL (8.5-10.1); CARBON DIOXIDE 22 MMOL/L (21-32); CHLORIDE 107 MMOL/L (98-107); CREATININE SERUM 0.74 MG/DL (0.60-1.30); GFR ESTIMATED > 60; GLUCOSE 110 MG/DL (70-105); POTASSIUM 3.6 MMOL/L (3.6-5.0); SODIUM 138 MMOL/L (135-145); TOTAL PROTEIN 5.6 GM/DL (6.4-8.2)
--- NOTE | 2018-08-31 07:25 | Pulmonary Progress Note ---
Subjective Time Seen by a Provider: 08:17 Subjective/Events-last exam Pt is back to baseline. Sepsis Event Evaluation Height, Weight, BMI Height: 5'2.00" Weight: 162lbs. 6.0oz. 73.973786tp; 30.5 BMI Method:Stated Exam Exam Vital Signs Date Time Temp Pulse Resp B/P (MAP) Pulse Ox O2 Delivery O2 Flow Rate FiO2 08/31/18 07:02 97 Nasal Cannula 2.00 08/31/18 04:00 97.7 55 18 178/82 (114) 98 Nasal Cannula 2.00 08/31/18 02:37 96 Nasal Cannula 2.00 08/31/18 00:25 97.3 60 18 161/84 (109) 99 Nasal Cannula 2.00 08/30/18 22:36 97 Nasal Cannula 2.00 08/30/18 20:00 97.2 58 18 156/80 (105) 98 Nasal Cannula 2.00 08/30/18 20:00 Nasal Cannula 2.00 08/30/18 18:41 98 Nasal Cannula 2.00 08/30/18 16:00 96.8 60 20 167/87 (113) 99 Nasal Cannula 2.00 08/30/18 14:43 Nasal Cannula 2.00 08/30/18 14:10 98 Nasal Cannula 2.00 08/30/18 12:41 OxyMask 10.00 08/30/18 12:05 Nasal Cannula 2.00 08/30/18 12:05 98.0 69 20 152/83 98 Nasal Cannula 2.00 08/30/18 11:30 65 20 96 Nasal Cannula 2 08/30/18 11:25 73 20 96 Nasal Cannula 2 08/30/18 11:20 74 20 95 Nasal Cannula 2 08/30/18 11:15 67 20 95 Nasal Cannula 2 08/30/18 11:10 68 20 99 Nasal Cannula 4 08/30/18 11:05 71 24 98 OxyMask 10 08/30/18 11:00 69 24 100 OxyMask 10 08/30/18 10:55 100 OxyMask 10.00 08/30/18 10:50 69 24 100 OxyMask 10 08/30/18 10:50 66 24 100 OxyMask 10 08/30/18 10:45 66 24 99 OxyMask 10 08/30/18 10:40 68 24 99 OxyMask 10 08/30/18 10:38 OxyMask 10 08/30/18 10:35 68 24 99 OxyMask 10 08/30/18 10:35 70 24 99 OxyMask 10 08/30/18 10:30 66 24 98 OxyMask 10 08/30/18 08:45 98.0 70 18 153/99 (117) 97 Room Air I & O 08/31/18 07:00 Intake Total 730 ml Balance 730 ml Height & Weight Height: 5'2.00" Weight: 162lbs. 6.0oz. 73.266171dt; 30.5 BMI Method:Stated General Appearance: No Apparent Distress, WD/WN HEENT: PERRL/EOMI, Normal ENT Inspection, Pharynx Normal Neck: Full Range of Motion, Normal Inspection, Non Tender, Supple Respiratory: Chest Non Tender, No Accessory Muscle Use, No Respiratory Dist ress, Decreased Breath Sounds Cardiovascular: Regular Rate, Rhythm, No Edema, No Gallop Capillary Refill: Less Than 3 Seconds Gastrointestinal: normal bowel sounds, non tender, soft, no organomegaly Extremity: Normal Capillary Refill, No Pedal Edema Neurologic/Psychiatric: Alert, Oriented x3 Skin: Normal Color, Warm/Dry Lymphatic: No Adenopathy Results Lab Laboratory Tests 08/30/18 13:45 08/31/18 06:13 Assessment/Plan Assessment/Plan Acute respiratory distress during elective EGD probably secondary to RAJI combined with COPD -Pt will need out pt PSG -SVNs -Will also do out pt PFT. -Continue to monitor tonight to ensure stability ARAM SANCHEZ DO Aug 31, 2018 07:24
[2018-08-31 07:36] VITALS: BP 159/87
[2018-08-31] MEDS: SUCRALFATE 1 GM (CARAFATE) TAB PO SCH (08:24)
[2018-08-31] MEDS: SENNA W/DOCUSATE (SENOKOT S) TABLET PO SCH (08:26)
[2018-08-31] MEDS ORDERED: NON-FORMULARY MEDICATION 1 EA EA (Duloxetine HCl 60 MG) PO SCH (09:00)
[2018-08-31] MEDS ORDERED: PREGABALIN 50 MG (LYRICA) CAP PO SCH (09:00)
[2018-08-31] MEDS ORDERED: CLOPIDOGREL 75 MG (PLAVIX) TABLET PO SCH (09:00)
[2018-08-31] MEDS ORDERED: MULTIVITAMIN WITH MINERALS PO SCH (09:00)
[2018-08-31] MEDS ORDERED: TOLTERODINE LA 2 MG (DETROL LA) CAP PO SCH (09:00)
[2018-08-31] MEDS ORDERED: LEVOTHYROXINE 112 MCG (LEVOTHROID) TAB PO SCH (09:00)
[2018-08-31] MEDS ORDERED: eZETimibe 10 MG (ZETIA) TABLET PO SCH (09:00)
[2018-08-31] MEDS ORDERED: PANTOPRAZOLE 40 MG (PROTONIX) TAB PO SCH (09:00)
[2018-08-31] MEDS ORDERED: meTOproloL SUCCINATE 50 MG (TOPROL XL) TAB PO SCH (09:00)
[2018-08-31] MEDS ORDERED: ASPIRIN 81 MG CHEW (CHILDREN'S ASA) PO SCH (09:00)
[2018-08-31] MEDS ORDERED: DOXYCYCLINE 100 MG (VIBRAMYCIN) TABLET PO SCH (09:00)
[2018-08-31] MEDS ORDERED: NON-FORMULARY MEDICATION 1 EA EA (Aspirin (Aspir 81) 81 MG) PO SCH (09:00)
[2018-08-31] MEDS ORDERED: [UNRECOGNIZED DRUG - OTHER] PO SCH (09:00)
[2018-08-31] MEDS ORDERED: DULoxetine 30 MG (CYMBALTA) CAP PO SCH (09:00)
--- NOTE | 2018-08-31 09:55 | Short Stay Summary-Hospitalist ---
History of Present Illness HPI/Chief Complaint CC: Hypoxia after EGD HPI: This is a very debilitated white female residential pt of Dr. Brewer well known to the hospital service due to multiple hospitalizations on a frequent basis who presented after an uncomplicated EGD but began suffering some hypoxia requiring admission to the hospital for observation and Dr. Agee consultation. She is doing much better but having some mild tachypnea and will monitor pt for any respiratory distress. Patient did well through the night had no respiratory issues she already has oxygen at home to use as needed and denies any other significant problems. We'll discharge home with her caregivers. Source: patient, RN/MD, old records Exam Limitations: no limitations Date Seen 08/31/18 Time Seen by a Provider: 10:15 Attending Physician Valentín Brooks DO PCP Eliud Brewer DO Referring Physician Date of Admission Home Medications & Allergies Home Medications Reviewed patient Home Medication Reconciliation performed by pharmacy medication reconciliations telecommunications field technician and/or nursing. Patients Allergies have been reviewed. Allergies Allergies Coded Allergies No Known Drug Allergies (Unverified06/10/15) Past Yjxntzm-Iixxor-Yrjjbd Hx Past Med/Social Hx: Reviewed Nursing Past Med/Soc Hx, Reviewed and Corrections made Patient Social History Marrital Status: single Employed/Student: retired Alcohol Use: Denies Use Recreational Drug Use: No Former Smoker, Quit: Mar 26, 1996 Type Used: Cigarettes 2nd Hand Smoke Exposure: No Physical Abuse Screen: No Sexual Abuse: No Recent Foreign Travel: No Contact w/other who traveled: No Recent Hopitalizations: No Recent Infectious Disease Expo: No Immunizations Up To Date Tetanus Booster (TDap): Unknown Pediatric: No Date of Pneumonia Vaccine: Apr 22, 2009 Date of Influenza Vaccine: Nov 20, 2017 Seasonal Allergies Seasonal Allergies: Yes Past Medical History Surgeries: Abdominal, Appendectomy, Bladder Surgery, Bowel Surgery, Cardiac, Coronary Stent, Hysterectomy, Oophorectomy, Orthopedic, Tonsillectomy Respiratory: Asthma, COPD, Pneumonia Currently Using CPAP: No Currently Using BIPAP: No Cardiac: Chronic Edema/Swelling, Coronary Artery Disease, Deep Vein Thrombosis, Heart Attack, High Cholesterol, Hypertension Neurological: Vertigo 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: No Hysterectomy, Menopausal Genitourinary: Kidney Infection, Bladder Infection, UTI-Chronic Gastrointestinal: Abdominal Hernia, Gastroesophageal Reflux, Diverticulosis, Esophagitis Musculoskeletal: Osteoporosis, Arthritis, Chronic Back Pain, Fractures Endocrine: Hypothyroidsim HEENT: Dysphagia Loss of Vision: Denies Hearing Impairment: Denies Psychosocial: Anxiety, Depression History of Blood Disorders: No Adverse Reaction to Blood [place]: No Family History Family history: Hypertension G8 BROTHER Myocardial infarction 19 MOTHER G8 BROTHER Review of Systems Constitutional: see HPI, weakness EENTM: no symptoms reported Respiratory: no symptoms reported Cardiovascular: no symptoms reported Gastrointestinal: no symptoms reported Genitourinary: no symptoms reported Musculoskeletal: no symptoms reported Skin: no symptoms reported Psychiatric/Neurological: No Symptoms Reported All Other Systems Reviewed Negative Unless Noted: Yes Physical Exam Physical Exam Vital Signs Vital Signs - First Documented 08/30/18 08/30/18 08:45 10:30 Temp 98.0 Pulse 70 Resp 18 B/P (MAP) 153/99 (117) Pulse Ox 97 O2 Delivery Room Air O2 Flow Rate 10 Capillary Refill : Less Than 3 Seconds Height, Weight, BMI Height: 5'2.00" Weight: 162lbs. 6.0oz. 73.037980qp; 30.5 BMI Method:Stated General Appearance: No Apparent Distress, WD/WN, Chronically ill HEENT: PERRL/EOMI, Normal ENT Inspection, Pharynx Normal Neck: Full Range of Motion, Normal Inspection, Non Tender, Supple Respiratory: Chest Non Tender, Lungs Clear, Normal Breath Sounds, No Accessory Muscle Use, No Respiratory Distress Cardiovascular: Regular Rate, Rhythm, No Edema, No Gallop Extremity: Normal Capillary Refill, Normal Inspection, No Pedal Edema Neurologic/Psychiatric: Alert, Oriented x3 Skin: Normal Color, Warm/Dry Lymphatic: No Adenopathy Results Results/Procedures Labs Laboratory Tests 08/30/18 13:45 08/31/18 06:13 Patient resulted labs reviewed. Short Stay Diagnosis Discharge Diagnosis-Short Stay Admission Diagnosis Assessment: Respiratory insufficiency following sedation from EGD requiring observation stay Final Discharge Diagnosis Assessment: Respiratory insufficiency following sedation from EGD requiring observation stay Conclusion Plan Discharge home Diagnosis/Problems Diagnosis/Problems (1) Acute respiratory failure Status: Resolved Qualifiers: Qualified Codes: J96.00 - Acute respiratory failure, unspecified whether with hypoxia or hypercapnia Resolution Date/Time: 11/11/16 @ 10:15 (2) Hematemesis Status: Resolved Qualifiers: Qualified Codes: K92.0 - Hematemesis Resolution Date/Time: 7/12/19 @ 11:40 (3) Dysphagia Status: Chronic Qualifiers: Qualified Codes: R13.10 - Dysphagia, unspecified (4) Essential (primary) hypertension Status: Chronic Clinical Quality Measures DVT/VTE Risk/Contraindication: Risk Factor Score Per Nursin RFS Level Per Nursing on Admit: 4+=Very High YSABEL ABREU DO Aug 31, 2018 09:55
[2018-08-31 12:20] VITALS: BP 160/85
[2018-08-31 12:50] VITALS: BP 160/85
[2018-08-31] MEDS ORDERED: ROPINIROLE HCL 8 MG PO SCH (18:00)
[2018-08-31] MEDS ORDERED: rOPINIRole 1 MG (REQUIP) TABLET PO SCH (18:00)
[2018-08-31] MEDS ORDERED: ESTRADIOL VAGINAL CREAM 42.5 GM (ESTRACE) VG SCH (20:30)
[2018-08-31] MEDS ORDERED: TEMAZEPAM 15 MG (RESTORIL) CAP PO SCH (21:00)
== END 2018-08-31 11:37 | disposition home or self-care (01) ==
LOC: ENDO 08:25 → 4TH 12:05 → ENDO 08-31 12:59 → 4TH 08-31 12:59
PROVIDERS: ADMIT Internal Medicine; ATTEND Surgery
DX: K92.0 Hematemesis (principal); J96.00 Acute respiratory failure, unspecified whether with hypoxia or hypercapnia; R00.1 Bradycardia, unspecified; I10 Essential (primary) hypertension; I25.10 Atherosclerotic heart disease of native coronary artery without angina pectoris; E78.5 Hyperlipidemia, unspecified; J44.9 Chronic obstructive pulmonary disease, unspecified; F32.9 Major depressive disorder, single episode, unspecified; F41.9 Anxiety disorder, unspecified; K21.9 Gastro-esophageal reflux disease without esophagitis; Z87.891 Personal history of nicotine dependence; F09 Unspecified mental disorder due to known physiological condition; E78.00 Pure hypercholesterolemia, unspecified; I25.2 Old myocardial infarction; M81.0 Age-related osteoporosis without current pathological fracture; E03.9 Hypothyroidism, unspecified; R13.10 Dysphagia, unspecified; Z86.718 Personal history of other venous thrombosis and embolism; Z79.899 Other long term (current) drug therapy; Z87.19 Personal history of other diseases of the digestive system
CPT/HCPCS: 36415; 36600; 71046; 80053; 82805; 85025; 94640; 94760

== ENCOUNTER → 2018-09-10 | Outpatient (CLI) | payer MEDICARE, MEDICAID ==
[~2018-09-10] VITALS: Ht 157.5 cm; Wt 73.5 kg
[~2018-09-10] MED LIST changes: +CATHETER FLUSH 10 ML SYR IV PRN; +ESTR42.511 VG; +LACT10SO64 PO; +ONDA4TAB11 PO; +REGADENOSON 0.4 MG/5 ML SYR (LEXISCAN) IV ONE
[2018-09-10 08:11] VITALS: BP 144/80
--- NOTE | 2018-09-10 12:33 | Cardiology Stress Test Report ---
Stress Test Report Type of NM Stress Test: Test Type: LEXISCAN 0.4MG/5ML Date of Procedure/Referring: Date of Procedure: Sep 10, 2018 PCP Eliud Brewer DO Admitting Physician Eliud Brewer DO Indications: Chest pain Baseline Blood Pressure: Blood Pressure Systolic: 144 Blood Pressure Diastolic: 80 Summary & Conclusion: Summary: The patient was brought to the stress lab after informed consent was taken. Stress test was performed according to the Lexiscan protocol. 0.4 mg of IV Lexiscan was given. Please see Dr. Brewer's report on stress testing. 9.88 mCi of Myoview were given for rest imaging and 30.2 mCi of Myoview given for stress imaging. Transient ischemic dilatation score 0.95, EF 64 percent. Normal wall motion. Normal myocardial perfusion imaging during rest and stress. Conclusion: Normal LV function with no wall motion abnormalities. Normal myocardial perfusion imaging during rest and stress. Radha KLINE MD Sep 10, 2018 12:33
== END ==
LOC: CARD 07:04
PROVIDERS: ATTEND Internal Medicine
DX: I20.9 Angina pectoris, unspecified (principal)
CPT/HCPCS: 78452; 93017

== ENCOUNTER 2018-09-17 17:57 | Emergency (ER) | payer MEDICARE, MEDICAID ==
[~2018-09-17] VITALS: Ht 157.5 cm; Wt 72.6 kg
[~2018-09-17 17:57] MED LIST changes: -CATHETER FLUSH 10 ML SYR IV PRN; -REGADENOSON 0.4 MG/5 ML SYR (LEXISCAN) IV ONE
--- OUTSIDE RECORDS SUMMARY | 2018-09-17 18:03 | XMS REPORT | Encounter Summary ---
Author Author [facility] Organization [facility] Address Unknown Phone Unavailable Care Team Providers Care Organisational Psychologist Name Role Phone Donna Brown RN Unavailable Unavailable Michael Mandujano MD Unavailable Alfonso Lino DO Unavailable Alfonso Keith MD Unavailable Eliud Brewer MD PCP Reason for Visit * Reason Comments Bladder infection Urinary Incontinence Encounter Details Care Team Description Date Type Department Darius Alvarez MD [address] [facility] [address] [place] [address] Acute cystitis without hematuria (Primary Dx); Urinary urgency; Urinary frequency; Urge incontinence; Ventral hernia without obstruction or gangrene 08/24/2018 Procedure visit [facility] [address] [place] [address] Social History Date Tobacco Use [...] of this encounter Progress Notes * Darius Alvarez MD - 08/24/2018 2:30 PM CDT Date [...] placement X 2 Deep vein thrombosis (DVT) ([facility]) 2006 Depression 06/03/2009 Gastrointestinal disorder Diverticulitis GERD (gastroesophageal reflux disease) HLD (hyperlipidemia) 06/03/2009 Hypertension Hypothyroidism 06/03/2009 On supplemental oxygen therapy RAJI (obstructive sleep apnea) noncompliant with CPAP Osteoporosis Other emphysema (HCC) PE (pulmonary embolism) 06/03/2009 Pulmonary embolism ([facility]) 2006 Restless leg syndrome 06/03/2009 Stomach disorder [...] (FLONASE) 50 mcg/actuation nasal spray Apply 1 Alpha to each nos tril as directed daily [...]
--- OUTSIDE RECORDS SUMMARY | 2018-09-17 18:03 | XMS REPORT | Encounter Summary ---
Author Author [facility] Organization [facility] Address Unknown Phone Unavailable Care Team Providers Care Security Control Center Operator Name Role Phone Donna Brown RN Unavailable Unavailable Michael Mandujano MD Unavailable Alfonso Lino DO Unavailable Alfonso Keith MD Unavailable Eliud Brewer MD PCP Reason for Referral * Consult, Test & Treat (Routine) Referred By Contact Referred To Contact Status Reason Specialty Diagnoses / Procedures Darius Alvarez MD [address] [facility] [address] [place] [address] [place] [address] [place] [address] No Auth Needed Specialty Services General Surgery Diagnoses Required Parastomal hernia without obstruction or gangrene Encounter Details Care Team Description Date Type Department Darius Alvarez MD [address] [facility] [address] [place] [address] [phone] Recurrent UTI (urinary tract infection) (Primary Dx); Parastomal hernia without obstruction or gangrene 08/24/2018 Clinical [facility] [address] [place] [id number] Social History Date Tobacco Use Types Packs/Day [...]
--- OUTSIDE RECORDS SUMMARY | 2018-09-17 18:03 | XMS REPORT | Encounter Summary ---
Author Author [facility] Organization [facility] Address Unknown Phone Unavailable Care Team Providers Care Aircraft Communicator Name Role Phone Donna Brown RN Unavailable Unavailable Michael Mandujano MD Unavailable Alfonso Lino DO Unavailable Alfonso Keith MD Unavailable Eliud Brewer MD PCP Reason for Visit * Reason Comments Urinary Frequency Urinary Incontinence Encounter Details Care Team Description Date Type Department Darius Alvarez MD [address] [facility] [address] [address] Urinary urgency (Primary Dx); Urge incontinence 07/25/2018 Office Visit [facility] [address] [place] [address] Social History Date Tobacco Use [...] instru ctions. Thank you for choosing the [facility] Department of Urology for your health [...] done, the cystoscope is removed. Cystoscopy 2009 [facility], [place] Govt[employer] has certain rights After the [...] fever over 101F , or trouble urinating. [id number] [facility], [address] [place] [address]. All rig hts reserved. This information is [...] placement X 2 Deep vein thrombosis (DVT) ([facility]) 2005 Depression 06/03/2009 Gastrointestinal disorder Diverticulitis GERD (gastroesophageal reflux disease) HLD (hyperlipidemia) 06/03/2009 Hypertension Hypothyroidism 06/03/2009 On supplemental oxygen therapy RAJI (obstructive sleep apnea) noncompliant with CPAP Osteoporosis Other emphysema ([facility]) PE (pulmonary embolism) 06/03/2009 Pulmonary embolism ([facility]) 2005 Restless leg syndrome 06/03/2009 Stomach disorder [...] (FLONASE) 50 mcg/actuation nasal spray Apply 1 [place] to each nos tril as directed daily [...]
--- OUTSIDE RECORDS SUMMARY | 2018-09-17 18:03 | XMS REPORT | Encounter Summary ---
Author Author [facility] Organization [facility] Address Unknown Phone Unavailable Care Team Providers Care Mathematics Faculty Member Name Role Phone Donna Brown RN Unavailable Unavailable Michael Mandujano MD Unavailable Alfonso Lino DO Unavailable Alfonso Keith MD Unavailable Eliud Brewer MD PCP Reason for Visit * Reason Comments Prior Authorization Encounter Details Care Team Description Date Type Department Darius Alvarez MD [address] [facility] [address] [place] [address] Prior Authorization 04/19/2018 Telephone [facility] [address] [place] [address] Social History Date Tobacco Use [...] - Isabella Moraes - 04/19/2018 3:48 PM SATELLITE INSTRUCTION FACILITATOR Pt needs PA for trospium started. Call routed to MD Alvarez's nurse. LLITE INSTRUCTION FACILITATOR documented in this encounter Plan of Treatment Not on filedocumented as of this encounter Visit Diagnoses Not on filedocumented in this encounter
--- OUTSIDE RECORDS SUMMARY | 2018-09-17 18:03 | XMS REPORT | Encounter Summary ---
Author Author [facility] Organization [facility] Address Unknown Phone Unavailable Care Team Providers Care Bulk System Operator Name Role Phone Donna Brown RN Unavailable Unavailable Michael Mandujano MD Unavailable Alfonso Lino DO Unavailable Alfonso Keith MD Unavailable Eliud Brewer MD PCP Reason for Visit * Reason Comments Medication Follow-up Encounter Details Care Team Description Date Type Department Darius Alvarez MD [address] [facility] [address] [place] [address] Medication Follow-up 06/01/2018 Telephone [facility] [address] [place] [address] Social History Date Tobacco Use [...]
--- OUTSIDE RECORDS SUMMARY | 2018-09-17 18:03 | XMS REPORT | Encounter Summary ---
Author Author [facility] Organization [facility] Address Unknown Phone Unavailable Care Team Providers Care Professor Of Psychology Name Role Phone Donna Brown RN Unavailable Unavailable Michael Mandujano MD Unavailable Alfonso Lino DO Unavailable Alfonso Keith MD Unavailable Eliud Brewer MD PCP Reason for Visit * Reason Comments Hernia * Consult, Test & Treat (Routine) Referred By Contact Referred To Contact Status Reason Specialty Diagnoses / Procedures Darius Alvarez MD [address] [facility] [address] [place] [address] [place] [address] [place] [address] No Auth Needed Specialty Services General Surgery Diagnoses Required Parastomal hernia without obstruction or gangrene Encounter Details Care Team Description Date Type Department Alfonso Keith MD [address] [place] [address] 09/14/2018 Office Visit [facility] [address] [place] [address] Social History Date Tobacco Use [...] Signs Reading Time Taken Comments Vital Sign 134/82 09/14/2018 10:21 AM CDT Blood Pressure 71 09/14/2018 10:21 AM CDT Pulse 37 C (98.6 F) 09/14/2018 10:21 AM CDT Temperature 14 09/14/2018 10:21 AM CDT Respiratory Rate - - Oxygen Saturation - - Inhaled Oxygen Concentration 74.4 kg (164 lb) 09/14/2018 10:21 AM CDT Weight 157.5 cm (5' 2") 09/14/2018 10:21 AM CDT Height 30 09/14/2018 10:21 AM CDT Body Mass Index documented in this encounter Functional Status Date of Assessment Functional Status Response 09/14/2018 Does the patient have a hearing impairment: No 09/14/2018 Does the patient have a visual impairment: No 09/14/2018 Does the patient have impaired ambulation: Yes 09/14/2018 Does the patient have an activity of daily living No (ADL) impairment: 09/14/2018 Does the patient have an instrumental activity of No daily living (IADL) impairment: Date of Assessment Cognitive Status Response 09/14/2018 Does the patient have a cognitive impairment: No documented as of this encounter Plan of Treatment Order Schedule Name Type Priority Associated Diagnoses Ordered: 08/24/2018 AMB REFERRAL TO GENERAL Outpatient Routine Parastomal hernia without SURGERY Referral obstruction or gangrene documented as of this encounter Visit Diagnoses Not on filedocumented in this encounter
--- OUTSIDE RECORDS SUMMARY | 2018-09-17 18:03 | XMS REPORT | Encounter Summary ---
Author Author [facility] Organization [facility] Address Unknown Phone Unavailable Care Team Providers Care Recovery Assistant Name Role Phone Donna Brown RN Unavailable Unavailable Michael Mandujano MD Unavailable Alfonso Lino DO Unavailable Alfonso Keith MD Unavailable Eliud Brewer MD PCP Reason for Visit * Reason Comments Appointment Encounter Details Care Team Description Date Type Department Alfonso Keith MD [address] [place] [address] Appointment 09/10/2018 Telephone [facility] [address] [place] [address] Social History Date Tobacco Use Types Packs/Day [...] encounter Miscellaneous Notes * Telephone Encounter - Zeenat Gutiérrez RN - 09/10/2018 9:29 AM CDT LVM with new instructions for her appointment. Left call back number if she has any questions. documented in this encounter Plan of Treatment Not on filedocumented as of this encounter Visit Diagnoses Not on filedocumented in this encounter
--- OUTSIDE RECORDS SUMMARY | 2018-09-17 18:03 | XMS REPORT | Encounter Summary ---
Author Author [facility] Organization [facility] Address Unknown Phone Unavailable Care Team Providers Care Flux Tube Attendant Name Role Phone Donna Brown RN Unavailable Unavailable Michael Mandujano MD Unavailable Alfonso Lino DO Unavailable Alfonso Keith MD Unavailable Eliud Brewer MD PCP Reason for Visit * Reason Comments Scheduling Encounter Details Care Team Description Date Type Department Darius Alvarez MD [address] [facility] [address] [place] [address] Scheduling 07/13/2018 Telephone [facility] [address] [place] [address] Social History Date Tobacco Use [...]
--- OUTSIDE RECORDS SUMMARY | 2018-09-17 18:03 | XMS REPORT | Encounter Summary ---
Author Author [facility] Organization [facility] Address Unknown Phone Unavailable Care Team Providers Care Roll Over Press Operator Name Role Phone Donna Brown RN Unavailable Unavailable Michael Mandujano MD Unavailable Alfonso Lino DO Unavailable Alfonso Keith MD Unavailable Eliud Brewer MD PCP Reason for Referral * Consult, Test & Treat (Routine) Referred By Contact Referred To Contact Status Reason Specialty Diagnoses / Procedures Darius Alvarez MD [address] [facility] [address] [place] [address] Closed Specialty Services Diagnoses Required Urge incontinence of urine Reason for Visit * Reason Comments Urinary Incontinence * Consult, Test & Treat (Routine) Referred By Contact Referred To Contact Status Reason Specialty Diagnoses / Procedures [facility] [address] [place] [address] Darius Alvarez MD [address] [facility] [address] [place] [address] No Auth Needed Urology Diagnoses New: incontinence, eval for botox / Medicare / recs attchd-Dr. Easton castro NEW PATIENT Encounter Details Care Team Description Date Type Department Darius Alvarez MD [address] [facility] [address] [place] [address] [phone] Urge incontinence of urine (Primary Dx) 04/18/2018 Office Visit [facility] [address] 2 [place] [id number] Social History Date Tobacco Use Types Packs/Day [...] Comments Vital Sign 140/88 04/18/2018 1:17 PM SHRUB PLANTER Blood Pressure 59 04/18/2018 1:17 PM SHRUB PLANTER Pulse - - Temperature - - Respiratory Rate - - Oxygen Saturation - - Inhaled Oxygen Concentration 78 kg (172 lb) 04/18/2018 1:08 PM SHRUB PLANTER Weight 157.5 cm (5' 2") 04/18/2018 1:08 PM SHRUB PLANTER Height 31.46 04/18/2018 1:08 PM SHRUB PLANTER Body Mass Index documented in this encounter [...] Ailyn Stearns, BETI - 04/18/2018 1:00 PM SHRUB PLANTER [facility] [address] [place], [place] [facility] [address] [place], [place] [facility] [address] [place], [place] [facility] [address] [place], [place] [facility] [address] [place], [place] [facility] [address] [place], [place] [facility] [address] [place], [place] [address] [place] [facility] [address] [place], [place] OUT PATIENT @ [facility] [address] [place], [place] [phone] [facility] [address] [place], [place] [facility] [address] [place] [facility] [address] [place], [place] [facility] [address] [place], [place] [facility] [address] [address] [place], [place] [facility] [address] [place], [place] [facility] [address] [place] [address] PH FAX [facility] [address] [place], [place] [facility] [address] [place], [place] [facility] [address] [place] [address] Fingertip Application Method For Estrogen [...] tip amount as noted above. Figure 2 B PLANTER documented in this encounter Progress Notes * Darius Alvarez MD - 04/18/2018 1:00 PM SHRUB PLANTER UROLOGY CLINIC NOTE Date of Service: 04/18/2018 Subjective: History of Present Illness April Gomez is a 77 y.o. female with h/o OAB, ISD who [facility]. Alvarez. She is seen Dr. Mccormack, in [place], [place] who performe d UDS and in [...] has cardiac clearance for surgery by her police lieutenant in [facility], Dr. Rosales. She states that she does not want a sling, but believes th at she has had Botox previously which helped her symptoms. Questionaires: AMRGIE-6: 12 IIQ-7: 20 PISQ-12: #1 sometimes OAB-V8: [...] (FLONASE) 50 mcg/actuation nasal spray Apply 1 [place] to each nos tril as directed daily [...] (FLONASE) 50 mcg/actuation nasal spray Apply 1 [place] to each nos tril as directed daily [...] operative note) 07/2017: UDS by Dr. Mccormack ([place]): ISD, OAB, mixed incontinence 04/18/18: PE: Normal sensation b/l, + leak with very strong valsalva, no hypermob ility, no prolapse, good levator tone, + atrophic vaginitis PVR: 38 cc Questionaires: MARGIE-6: 12 IIQ-7: 20 PISQ-12: #1 sometimes OAB-V8: 37 Urinary incontinence 77 y.o. female with h/o OAB, ISD who presents to re-establish with Dr. Di campoverde. She is seen Dr. Mccormack, in [place], [place] who performed UDS and in 07/2017 [...] physical therapy if it is available in [place], [place]. All questions were answered and she is amenable to the plan. Vaginal Estrace cream 3 times weekly Discontinue Myrbetriq Start Trospium 60 XR daily PFPT with external referral to [place] [facility] in 3-4 months Patient seen and [...] Kwabena Lawrence MD - 04/18/2018 3:26 PM SHRUB PLANTER Associated Problem(s): Urinary incontinence 77 y.o. female with h/o OAB, ISD who presents to re-establish with Dr. Di campoverde. She is seen Dr. Mccormack, in [place], [place] who performed UDS and in 07/2017 [...] physical therapy if it is available in [place], [place]. All questions were answered and she is amenable to the plan. Vaginal Estrace cream 3 times weekly Discontinue Myrbetriq Start Trospium 60 XR daily PFPT with external referral to [place] [facility] in 3-4 months B PLANTER documented in this encounter
--- OUTSIDE RECORDS SUMMARY | 2018-09-17 18:03 | XMS REPORT | Clinical Summary ---
Author Author [facility] Organization [facility] Address Unknown Phone Unavailable Care Team Providers Care Mattress Filler Name Role Phone Donna Brown RN Unavailable Unavailable Michael Mandujano MD Unavailable Alfonso Lino DO Unavailable Alfonso Keith MD Unavailable Eliud Brewer MD PCP Source Comments Some departments are not documenting in the electronic medical record. If you d o not see the information that you expected, contact Release of Information in [facility] [employer] Information Management department at [phone] for further assistan ce in locating additional records.[facility] Allergies Comments Active Allergy Reactions Severity [...] needed. Active fluticasone (FLONASE) 50 Apply 1 [place] 0 mcg/actuation nasal spray to each nostril [...] daily. Do not cut/ crush/ chew 08/31/2018 doxycycline (VIBRAMYCIN) Take one 14 tablet 0 [...] operative note) 07/2017: UDS by Dr. Mccormack ([place]): ISD, OAB, mixed incontinence 04/18/18: PE: Normal sensation b/l, + leak with very strong valsalva, no hypermobility, no prolapse, good levator tone, + atrophic vaginitis PVR: 38 cc Questionaires: MARGIE-6: 12 IIQ-7: 20 PISQ-12: #1 sometimes OAB-V8: 37 L ast Assessment & Plan: 77 y.o. female with h/o OAB, ISD who presents to re-establish with Dr. Alvarez. She is seen Dr. Mccormack, in [place], [place] who performed UDS and in 07/2017, [...] physical therapy if it is available in [place], [place]. All questions were answered and she [...] Encounters Care Team Description Date Type Specialty Alfonso Keith MD 09/14/2018 Office Visit General Surgery Alfonso Keith MD Appointment 09/10/2018 Telephone General Surgery Darius Avlarez MD Acute cystitis without hematuria (Primary Dx); Urinary urgency; Urinary frequency; Urge incontinence; Ventral hernia without obstruction or gangrene 08/24/2018 Procedure visit Urology Darius Alvarez MD Recurrent UTI (urinary tract infection) (Primary Dx); Parastomal hernia without obstruction or gangrene 08/24/2018 Clinical Urology Support Darius Alvarez MD Urinary urgency (Primary Dx); Urge incontinence 07/25/2018 Office Visit Urology Darius Alvarez MD Scheduling 07/13/2018 Telephone Urology from Last 3 Months Family [...] 14 09/14/2018 10:21 AM CDT Respiratory Rate 94% 10/13/2015 9:37 AM CDT Oxygen Saturation - - Inhaled Oxygen Concentration 74.4 kg (164 lb) 09/14/2018 10:21 AM CDT Weight 157.5 cm (5' 2") 09/14/2018 10:21 AM CDT Height 30 09/14/2018 10:21 AM CDT Body Mass Index Plan of [...] file) Description: Intraocular lens implants / / [id number]/7/[id number] Stent Implanted: 01/27/2004 by Karina Rosales MD (Quantity not on file) Description: prox LAD Results Not on filefrom Last 3 Months Insurance Type Payer Benefit Subscriber ID Effective Phone Address Plan / Dates Group Medicare MEDICARE MEDICARE xxxxxxxxxx 1995- PART A AND Present B Medicaid [facility] MEDICAID [facility] xxxxxxxxxxx 2012-P [employer] [place] Advance Directives Patient Pega Developer Explanation Type Date Recorded Advance 10/02/2015 12:18 PM Directive/DPOA
[2018-09-17 18:19] LABS: BASOPHILS % (AUTO) 0 % (0-10); BILIRUBIN,URINE NEGATIVE (NEGATIVE); CLARITY,URINE CLEAR; COLOR,URINE YELLOW; EOSINOPHILS # (AUTO) 0.4 10^3/uL (0.0-0.3); EOSINOPHILS % (AUTO) 4 % (0-10); GLUCOSE, URINE (UA) NEGATIVE (NEGATIVE); HEMATOCRIT 39 % (35-52); HEMOGLOBIN 12.5 G/DL (11.5-16.0); KETONES,URINE NEGATIVE (NEGATIVE); LEUKOCYTE ESTERASE ,URINE 3+ (NEGATIVE); LYMPHOCYTES # (AUTO) 2.1 X 10^3 (1.0-4.0); LYMPHOCYTES % (AUTO) 18 % (12-44); MEAN CORPUSCULAR HEMOGLOBIN 24 PG (25-34); MEAN CORPUSCULAR HGB CONC 32 G/DL (32-36); MEAN CORPUSCULAR VOLUME 75 FL (80-99); MEAN PLATELET VOLUME 10.1 FL (7.4-10.4); MONOCYTES # (AUTO) 0.8 X 10^3 (0.0-1.0); MONOCYTES % (AUTO) 7 % (0-12); NEUTROPHILS % (AUTO) 71 % (42-75); NITRITE,URINE POSITIVE (NEGATIVE); PH,URINE 8 (5-9); PLATELET COUNT 370 10^3/uL (130-400); PROTEIN,URINE NEGATIVE (NEGATIVE); RED CELL DISTRIBUTION WIDTH 19.9 % (10.0-14.5); UROBILINOGEN,URINE NORMAL (NORMAL); WHITE BLOOD COUNT 11.4 10^3/uL (4.3-11.0)
[2018-09-17 18:29] LABS: AMORPHOUS SEDIMENT,UR MOD AMOR PHOSPHATE /LPF; BACTERIA,URINE LARGE /HPF; WBC,URINE 25-50 /HPF
[2018-09-17] MEDS ORDERED: DEXAMETHASONE 4 MG/ML SDV (DECADRON) IH ONE (18:30)
[2018-09-17] MEDS ORDERED: ACETAMINOPHEN 325 MG TABLET PO ONE (18:30)
[2018-09-17 18:37] LABS: ALANINE AMINOTRANSFERASE 6 U/L (0-55); ALBUMIN 3.8 GM/DL (3.2-4.5); ALKALINE PHOSPHATASE 101 U/L (40-136); BILIRUBIN,TOTAL 0.5 MG/DL (0.1-1.0); BUN/CREATININE RATIO 12; CALCIUM 9.9 MG/DL (8.5-10.1); CARBON DIOXIDE 25 MMOL/L (21-32); CHLORIDE 96 MMOL/L (98-107); CREATININE SERUM 0.82 MG/DL (0.60-1.30); GFR ESTIMATED > 60; GLUCOSE 113 MG/DL (70-105); POTASSIUM 3.8 MMOL/L (3.6-5.0); SODIUM 129 MMOL/L (135-145); TOTAL PROTEIN 6.5 GM/DL (6.4-8.2)
--- NOTE | 2018-09-17 18:42 | Diagnostic Imaging Report ---
INDICATION: Shortness of air and feeling faint. COMPARISON: Compared 08/30/2018. FINDINGS: Multiple treated and untreated thoracolumbar compression fractures showed no obvious interval progression. Marked tortuosity of the thoracic aortic course is an unchanged finding. Heart size stable. No focal infiltrate, effusion, pneumothorax, failure pattern or acute abnormalities. There has been no change. IMPRESSION: Stable chronic findings. Dictated by: Dictated on workstation # [id number]
[2018-09-17] MEDS ORDERED: NS IV 1000 ML 1,000 ML ONE (18:45)
[2018-09-17] MEDS ORDERED: NS IV 1000 ML 1,000 ML IV SCH (18:48)
[2018-09-17] MEDS ORDERED: PROMETHAZINE/ CODEINE SYRUP 5 ML UDC PO ONE (19:00)
[2018-09-17] MEDS ORDERED: TRIM/SULFAMETH 160/800 (SEPTRA DS) TAB PO ONE (19:00)
--- NOTE | 2018-09-17 19:06 | ED Respiratory ---
General Chief Complaint: Respiratory Problems Stated Complaint: SOB Nursing Triage Note: pt brought in by [facility] from home with complaint of soa and dysuria for one day. pt was given duoneb en route. History of Present Illness Date Seen by Provider: Sep 17, 2018 Time Seen by Provider: 18:00 Initial Comments 78-year-old female presents via EMS for SOA and dysuria. She had a DuoNeb treatment in route and her respiratory symptoms have improved slightly. She denies any chest pain. Reports recurrent UTIs. Timing/Duration: yesterday Severity: mild Prior Episodes/Possible Cause: frequent episodes Associated Symptoms: cough; No fever/chills; shortness of breath, wheezing, other (dysuria and frequency) Allergies and Home Medications Allergies Coded Allergies: No Known Drug Allergies (Unverified , 06/10/15) Home Medications Albuterol Sulfate 18 Gm Hfa.aer.ad, 2 PUFF IH Q6H PRN for WHEEZING, (Reported) Aspirin 81 Mg Tablet.dr, 81 MG PO DAILY, (Reported) Clopidogrel Bisulfate 75 Mg Tablet, 75 MG PO DAILY, (Reported) Cyclosporine 1 Each Droperette, 1 DROP OU BID PRN for DRY EYES, (Reported) Dicyclomine HCl 10 Mg Capsule, 10 MG PO QID PRN for CRAMPS, (Reported) Duloxetine HCl 60 Mg Capsule.dr, 60 MG PO DAILY, (Reported) Estradiol 42.5 Gm Cream.appl, 1 GM VG MoWeFr, (Reported) Ezetimibe 10 Mg Tablet, 10 MG PO DAILY, (Reported) LAST FILLED #90 05-09-18 Fesoterodine Fumarate 4 Mg Tab.sr.24h, 4 MG PO DAILY, (Reported) Fluticasone Propionate 16 Gm Pollock.susp, 1 SPRAY NS BID PRN for ALLERGIES, (Reported) Guaifenesin/Codeine Phosphate 120 Ml Liquid, 5 ML PO Q6H PRN for COUGH Prescribed by: ALIZA HENRY on 09/17/181923 Lactulose 10 Gm/15 Ml Solution, 20 GM PO DAILY PRN for CONSTIPATION-3RD LINE, (Reported) Levothyroxine Sodium 112 Mcg Tablet, 112 MCG PO DAILY, (Reported) Lorazepam 1 Mg Tablet, 1 MG PO TID PRN for ANXIETY, (Reported) Metoprolol Succinate 50 Mg Tab.er.24h, 50 MG PO DAILY, (Reported) Multivitamin with Minerals 1 Each Tablet, 1 TAB PO DAILY, (Reported) Nitroglycerin 0.4 Mg Tab.subl, 0.4 MG SL UD PRN for CHEST PAIN, (Reported) Ondansetron 4 Mg Tab.rapdis, 4 MG PO Q8H PRN for NAUSEA/VOMITING-1ST LINE, (Reported) Oxycodone HCl 10 Mg Tablet, 10 MG PO Q6H PRN for PAIN-SEVERE, (Reported) Pantoprazole Sodium 40 Mg Tablet.dr, 40 MG PO DAILY, (Reported) Pregabalin 150 Mg Capsule, 150 MG PO BID, (Reported) Ropinirole HCl 4 Mg Tablet, 8 MG PO 1800, (Reported) TAKES 2 (4MG) TABLETS Sucralfate 1 Gm Tablet, 1 GM PO QID, (Reported) LAST FILLED #120 07-03-18 Sulfamethoxazole/Trimethoprim 1 Each Tablet, 1 EACH PO BID Prescribed by: ALIZA HENRY on 09/17/181920 Temazepam 15 Mg Capsule, 30 MG PO HS, (Reported) TAKES 2 (15MG) CAPSULES Patient Home Medication List Home Medication List Reviewed: Yes Review of Systems Review of Systems Constitutional: no symptoms reported, see HPI Respiratory: see HPI, cough, short of breath Genitourinary: see HPI, dysuria, frequency, hematuria, pain All Other Systems Reviewed Negative Unless Noted: Yes Past Fdmikes-Byvitz-Qqvomc Hx Past Med/Social Hx: Reviewed Nursing Past Med/Soc Hx Patient Social History Type Used: Cigarettes Former Smoker, Quit: Mar 26, 1996 2nd Hand Smoke Exposure: No Recent Foreign Travel: No Contact w/Someone Who Travel: No Recent Infectious Disease Expo: No Recent Hopitalizations: No Physical Abuse: No Sexual Abuse: No Mistreated: No Fear: No Immunizations Up To Date Tetanus Booster (TDap): Unknown PED Vaccines UTD: No Date of Pneumonia Vaccine: Apr 22, 2009 Date of Influenza Vaccine: Nov 20, 2017 Seasonal Allergies Seasonal Allergies: Yes Past Medical History Surgeries: Yes Abdominal, Appendectomy, Bladder Surgery, Bowel Surgery, Cardiac, Coronary Stent, Hysterectomy, Oophorectomy, Orthopedic, Tonsillectomy Respiratory: Yes COPD Currently Using CPAP: No Currently Using BIPAP: No Cardiac: Yes (CARDIAC CATH WITH STENTS X2) Chronic Edema/Swelling, Coronary Artery Disease, Deep Vein Thrombosis, Heart Attack, High Cholesterol, Hypertension Neurological: Yes (COGNITIVE DEFICIT) Vertigo 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 Disorders: No 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, 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 Genitourinary: Yes (INCONTINENCE) Kidney Infection, Bladder Infection, UTI-Chronic Gastrointestinal: Yes (hematemesis) Abdominal Hernia, Gastroesophageal Reflux, Diverticulosis, Esophagitis Musculoskeletal: Yes Osteoporosis, Arthritis, Chronic Back Pain, Fractures Endocrine: Yes Hypothyroidsim HEENT: Yes (FULL DENTURES) Dysphagia Loss of Vision: Denies Hearing Impairment: Denies Cancer: No Psychosocial: Yes (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 0.0oz. 72.106729eu; 29.6 BMI Method:Stated General Appearance: WD/WN, no apparent distress Eyes: Bilateral Eye Normal Inspection, Bilateral Eye PERRL, Bilateral Eye EOMI HEENT: PERRL/EOMI, normal ENT inspection, TMs normal, pharynx normal Neck: non-tender, full range of motion, supple Respiratory: chest non-tender, no respiratory distress, rhonchi, wheezing Cardiovascular: normal peripheral pulses, regular rate, rhythm Gastrointestinal: normal bowel sounds, non tender, soft Extremities: normal range of motion, non-tender, normal inspection, no pedal edema Neurologic/Psychiatric: no motor/sensory deficits, alert, normal mood/affect, oriented x 3 Skin: normal color, warm/dry Lymphatic: no adenopathy Progress/Results/Core Measures Suspected Sepsis Recent Fever Within 48 Hours: No Infection Criteria Present: None New/Unexplained Altered Menta: No Sepsis Screen: No Definite Risk SIRS Temperature:98.0 Pulse: 71 Respiratory Rate: 25 Laboratory Tests 09/17/18 18:11: White Blood Count 11.4H Blood Pressure 119 /75 Mean: 90 Laboratory Tests 09/17/18 18:11: Creatinine 0.82, Platelet Count 370, Total Bilirubin 0.5 Results/Orders Lab Results Laboratory Tests Test 09/17/18 18:11 Range/Units White Blood Count 11.4 H 4.3-11.0 10^3/uL Red Blood Count 5.16 4.35-5.85 10^6/uL Hemoglobin 12.5 11.5-16.0 G/DL Hematocrit 39 35-52 % Mean Corpuscular Volume 75 L 80-99 FL Mean Corpuscular Hemoglobin 24 L 25-34 PG Mean Corpuscular Hemoglobin Concent 32 32-36 G/DL Red Cell Distribution Width 19.9 H 10.0-14.5 % Platelet Count 370 130-400 10^3/uL Mean Platelet Volume 10.1 7.4-10.4 FL Neutrophils (%) (Auto) 71 42-75 % Lymphocytes (%) (Auto) 18 12-44 % Monocytes (%) (Auto) 7 0-12 % Eosinophils (%) (Auto) 4 0-10 % Basophils (%) (Auto) 0 0-10 % Neutrophils # (Auto) 8.0 H 1.8-7.8 X 10^3 Lymphocytes # (Auto) 2.1 1.0-4.0 X 10^3 Monocytes # (Auto) 0.8 0.0-1.0 X 10^3 Eosinophils # (Auto) 0.4 H 0.0-0.3 10^3/uL Basophils # (Auto) 0.0 0.0-0.1 10^3/uL Urine Color YELLOW Urine Clarity CLEAR Urine pH 8 5-9 Urine Specific [place] 1.010 L 1.016-1.022 Urine Protein NEGATIVE NEGATIVE Urine Glucose (UA) NEGATIVE NEGATIVE Urine Ketones NEGATIVE NEGATIVE Urine Nitrite POSITIVE H NEGATIVE Urine Bilirubin NEGATIVE NEGATIVE Urine Urobilinogen NORMAL NORMAL MG/DL Urine Leukocyte Esterase 3+ H NEGATIVE Urine RBC (Auto) NEGATIVE NEGATIVE Urine RBC NONE /HPF Urine WBC 25-50 H /HPF Urine Squamous Epithelial Cells 10-25 H /HPF Urine Crystals PRESENT H /LPF Urine Amorphous Sediment MOD DUARTE PHOSPHATE H /LPF Urine Bacteria LARGE H /HPF Urine Casts NONE /LPF Urine Mucus NEGATIVE /LPF Urine Culture Indicated YES Sodium Level 129 L 135-145 MMOL/L Potassium Level 3.8 3.6-5.0 MMOL/L Chloride Level 96 L 98-107 MMOL/L Carbon Dioxide Level 25 21-32 MMOL/L Anion Gap 8 5-14 MMOL/L Blood Urea Nitrogen 10 7-18 MG/DL Creatinine 0.82 0.60-1.30 MG/DL Estimat Glomerular Filtration Rate > 60 BUN/Creatinine Ratio 12 Glucose Level 113 H 70-105 MG/DL Calcium Level 9.9 8.5-10.1 MG/DL Corrected Calcium 10.1 8.5-10.1 MG/DL Total Bilirubin 0.5 0.1-1.0 MG/DL Aspartate Amino Transf (AST/SGOT) 8 5-34 U/L Alanine Aminotransferase (ALT/SGPT) 6 0-55 U/L Alkaline Phosphatase 101 40-136 U/L Total Protein 6.5 6.4-8.2 GM/DL Albumin 3.8 3.2-4.5 GM/DL My Orders Orders - ALIZA HENRY Cbc With Automated Diff (09/17/18 18:07) Comprehensive Metabolic Panel (09/17/18 18:07) Ua Culture If Indicated (09/17/18 18:07) Chest Pa/Lat (2 View) (09/17/18 18:07) Dexamethasone Injection (Decadron Inject (09/17/18 18:30) Acetaminophen Tablet/Caplet (Tylenol T (09/17/18 18:30) Urine Culture (09/17/18 18:11) Ed Iv/Invasive Line Start (09/17/18 18:48) Ns Iv 1000 Ml (Sodium Chloride 0.9%) (09/17/18 18:48) Ns Iv 1000 Ml (Sodium Chloride 0.9%) (09/17/18 18:45) Promethazine/ Codeine Syrup (Phenergan W (09/17/18 19:00) Sulfamethoxazole/Trimet Ds Tab (Bactrim (09/17/18 19:00) Medications Given in ED Current Medications Medications Dose Ordered Sig/Perez Route Start Time Stop Time Status Last Admin Dose Admin Acetaminophen 650 mg ONCE ONCE PO 09/17/18 18:30 09/17/18 18:31 DC 09/17/18 18:30 650 MG Dexamethasone Sodium Phosphate 8 mg ONCE ONCE IH 09/17/18 18:30 09/17/18 18:31 DC 09/17/18 18:24 8 MG Vital Signs/I&O 09/17/18 09/17/18 09/17/18 18:00 18:09 20:01 Temp 98.0 98.0 Pulse 71 71 Resp 25 25 B/P (MAP) 119/75 (90) 119/75 (90) Pulse Ox 98 95 95 O2 Delivery Room Air Room Air Room Air Capillary Refill : Less Than 3 Seconds Blood Pressure Mean: 90 Progress Note : Time: 18:00 Progress Note Agent seen and evaluated, will do a Decadron breathing treatment with 8 mg. Labs and chest x-ray. We'll check UA. Tylenol 650 mg orally for headache. 1844 we'll give normal saline 1 L IV. 1929 patient complaining of cough, will give Phenergan with codeine. Lungs continue to be clear to auscultation bilaterally. UA is significant for UTI, otherwise labs and chest x-ray normal. Patient reports improvement in symptoms. Discharge instructions and return precautions reviewed with her. Diagnostic Imaging Diagonstic Imaging: Xray Plain Films/CT/US/NM/MRI: chest Comments NAME: [facility] REC#: [id number] PT STATUS: REG ER : 1940 PHYSICIAN: ALIZA HENRY ADMIT DATE: 09/17/18/ER Draft Date of Exam:09/17/18 CHEST PA/LAT (2 VIEW) INDICATION: Shortness of air and feeling faint. COMPARISON: Compared 08/30/2018. FINDINGS: Multiple treated and untreated thoracolumbar compression fractures showed no obvious interval progression. Marked tortuosity of the thoracic aortic course is an unchanged finding. Heart size stable. No focal infiltrate, effusion, pneumothorax, failure pattern or acute abnormalities. There has been no change. IMPRESSION: Stable chronic findings. Dictated on workstation # [id number] Dict: 09/17/18 1830 Trans: 09/17/18 1842 [id number] Interpreted by: REBECCA BERNSTEIN Electronically signed by: Reviewed: Reviewed by Me Departure Impression Primary Impression: Urinary tract infection Qualified Codes: N30.01 - Acute cystitis with hematuria Additional Impression: COPD exacerbation Disposition: HOME, SELF-CARE Condition: Improved Departure-Patient Inst. Decision time for Depature: 19:30 Referrals: TORIBIO FOFANA DO (PCP/Family) Primary Care Physician Patient Instructions: Cough, Adult (DC), Urinary Tract Infection, Adult (DC) Add. Discharge Instructions: Take medications as prescribed. Increase water intake, 16 ounces every 2 hours while awake. Drink 1 cup of cranberry juice or eat 1 cup of fresh cranberries daily. Follow-up with your primary care provider if symptoms are not improving or worsen. Alternate between ibuprofen 600 mg and Tylenol 650 mg every 4 hours for pain or fever. Return to emergency department if difficulty breathing, increased abdominal or back pain, fever greater than 101 not relieved by Tylenol or ibuprofen, or new concerns. All discharge instructions reviewed with patient and/or family. Voiced understanding. Scripts Guaifenesin/Codeine Phosphate (Codeine-Guaifen 10-100 mg/5 ml) 120 Ml Liquid 5 ML PO Q6H PRN for COUGH, #120 ML 0 Refills Prov: ALIZA HENRY 09/17/18 Sulfamethoxazole/Trimethoprim (Sulfamethoxazole-Tmp Ds Tablet) 1 Each Tablet 1 EACH PO BID, #20 TAB 0 Refills Prov: ALIZA HENRY 09/17/18 ALIZA HENRY Sep 17, 2018 19:06
[2018-09-17] MEDS ORDERED: SULF-222 PO (19:21)
[2018-09-17] MEDS ORDERED: GUAI120L56 PO (19:24)
[2018-09-17 20:01] VITALS: BP 119/75
== END 2018-09-17 20:01 | disposition home or self-care (01) ==
LOC: EDUNIT# 17:57 → ER 17:58
DX: J44.1 Chronic obstructive pulmonary disease with (acute) exacerbation (principal); N39.0 Urinary tract infection, site not specified; I10 Essential (primary) hypertension; I25.10 Atherosclerotic heart disease of native coronary artery without angina pectoris; I25.2 Old myocardial infarction; F32.9 Major depressive disorder, single episode, unspecified; F41.9 Anxiety disorder, unspecified; E78.00 Pure hypercholesterolemia, unspecified; K21.9 Gastro-esophageal reflux disease without esophagitis; E03.9 Hypothyroidism, unspecified; Z87.19 Personal history of other diseases of the digestive system; Z86.718 Personal history of other venous thrombosis and embolism; Z90.49 Acquired absence of other specified parts of digestive tract; Z90.710 Acquired absence of both cervix and uterus; Z95.5 Presence of coronary angioplasty implant and graft; Z90.89 Acquired absence of other organs; Z79.82 Long term (current) use of aspirin; Z79.02 Long term (current) use of antithrombotics/antiplatelets; Z79.52 Long term (current) use of systemic steroids; Z79.51 Long term (current) use of inhaled steroids; Z87.891 Personal history of nicotine dependence; Z82.49 Family history of ischemic heart disease and other diseases of the circulatory system
CPT/HCPCS: 36415; 71046; 80053; 81000; 85025; 87077; 87088; 94640

== ENCOUNTER 2018-10-09 08:10 | Emergency (ER) | payer MEDICARE, MEDICAID ==
[~2018-10-09] VITALS: Ht 157.5 cm; Wt 73.9 kg
[~2018-10-09 08:10] MED LIST changes: +DULO60CA59 PO; +GUAI120L56 PO
[2018-10-09] MEDS ORDERED: RT-ALBUTEROL/IPRATROPIUM 3 ML (DUONEB) VIAL ONE (08:19)
[2018-10-09] MEDS ORDERED: NS IV 1000 ML 1,000 ML IV ONE (08:26)
[2018-10-09] MEDS ORDERED: RT-ALBUTEROL/IPRATROPIUM 3 ML (DUONEB) VIAL INH ONE (08:30)
[2018-10-09 08:53] LABS: BASOPHILS % (AUTO) 0 % (0-10); EOSINOPHILS # (AUTO) 0.4 10^3/uL (0.0-0.3); EOSINOPHILS % (AUTO) 5 % (0-10); HEMATOCRIT 35 % (35-52); HEMOGLOBIN 11.1 G/DL (11.5-16.0); LYMPHOCYTES # (AUTO) 1.8 X 10^3 (1.0-4.0); LYMPHOCYTES % (AUTO) 23 % (12-44); MEAN CORPUSCULAR HEMOGLOBIN 25 PG (25-34); MEAN CORPUSCULAR HGB CONC 32 G/DL (32-36); MEAN CORPUSCULAR VOLUME 78 FL (80-99); MONOCYTES # (AUTO) 0.6 X 10^3 (0.0-1.0); MONOCYTES % (AUTO) 7 % (0-12); NEUTROPHILS % (AUTO) 65 % (42-75); PLATELET COUNT 343 10^3/uL (130-400); RED CELL DISTRIBUTION WIDTH 18.8 % (10.0-14.5); WHITE BLOOD COUNT 7.8 10^3/uL (4.3-11.0)
[2018-10-09] MEDS ORDERED: fentaNYL INJECTION 100 MCG/2 ML AMP IVP ONE ×2 (09:00→10:30)
[2018-10-09 09:18] LABS: ALANINE AMINOTRANSFERASE 10 U/L (0-55); ALBUMIN 3.4 GM/DL (3.2-4.5); ALKALINE PHOSPHATASE 94 U/L (40-136); BILIRUBIN,TOTAL 0.3 MG/DL (0.1-1.0); BUN/CREATININE RATIO 11; CALCIUM 9.4 MG/DL (8.5-10.1); CARBON DIOXIDE 25 MMOL/L (21-32); CHLORIDE 101 MMOL/L (98-107); CREATININE SERUM 0.75 MG/DL (0.60-1.30); GFR ESTIMATED > 60; GLUCOSE 131 MG/DL (70-105); MAGNESIUM 1.8 MG/DL (1.6-2.4); POTASSIUM 3.7 MMOL/L (3.6-5.0); SODIUM 134 MMOL/L (135-145); TOTAL PROTEIN 5.9 GM/DL (6.4-8.2)
--- NOTE | 2018-10-09 09:20 | NUR ---
PT RESTING IN BED. PT STATES THAT SHE STILL HAS PAIN AND IS REQUESTING PAIN MEDICATION. PROVIDER NOTIFIED.
[2018-10-09] MEDS ORDERED: HOLD METFORMIN - RECEIVED CONTRAST 20 ML VIAL IV SCH (09:30)
[2018-10-09] MEDS ORDERED: IOHEXOL 350 MG/ML 100 ML (OMNIPAQUE 350) VIAL IV ONE (09:30)
[2018-10-09] MEDS ORDERED: NS 100 ML (IVPB) BAG IV ONE (09:30)
--- NOTE | 2018-10-09 09:46 | Diagnostic Imaging Report ---
CLINICAL INDICATION: Patient fell backwards striking head and neck. Head and neck pain. EXAM: Head CT without IV contrast. Axial CT scan of the cervical spine with sagittal and coronal reformations. Auto Exposure Controls were utilized during the CT exam to meet ALARA standards for radiation dose reduction. COMPARISON: Head CT without contrast dated 11/03/2017. CT scan of the cervical spine dated 09/01/2017. FINDINGS: Head CT: There is no evidence of acute cerebral infarct, intracranial hemorrhage, or gross mass effect. The brain parenchymal volume appears appropriate for patient's age. Again seen diffuse patchy and confluent areas of low-attenuation white matter changes seen involving both cerebral hemispheres and periventricular regions, likely representing chronic small vessel ischemic disease and leukoaraiosis. There is normal salvador-white matter distinction. There is no significant midline shift or herniation. There is no evidence of hydrocephalus. The basal cisterns are unremarkable. The skull, extracranial soft tissue, and orbits are unremarkable. There is a moderate-sized air-fluid level in the right maxillary sinus. There is sclerosis and bony thickening of the right maxillary sinus. There is small amount of consolidation involving the right mastoid air cells with associated sclerosis. Temporal bones show no significant abnormality. Cervical spine: There is no acute cervical spine fracture or dislocation. There is mild compression deformity involving the upper endplate of the T2 vertebra with no cortical disruption seen. The T2 compression is noted on the prior cervical spine CT scan. There is no significant bony central canal or neural foramen narrowing. There is no neck soft tissue abnormality. Visualized upper lung fallon are clear. IMPRESSION: 1: Stable CT scan of brain with no evidence of acute intracranial process. 2: Stable cervical spine degenerative disease with no acute fracture or dislocation. 3: Stable chronic compression deformity of the upper endplate of the T2 vertebra. Dictated by: Dictated on workstation # [id number]
--- NOTE | 2018-10-09 10:16 | NUR ---
C COLLAR REMOVED BY DR PAREDES
--- NOTE | 2018-10-09 10:21 | Diagnostic Imaging Report ---
PROCEDURE: CT chest, abdomen, and pelvis with contrast. TECHNIQUE: Multiple contiguous axial images were obtained through the chest, abdomen, and pelvis after the administration of intravenous contrast. Auto Exposure Controls were utilized during the CT exam to meet ALARA standards for radiation dose reduction. INDICATION: Fall with back pain CT chest: There are multiple compression fracture deformities involving the thoracic spine. These include previously documented T8, T10 and T12 fractures. There is also compression deformity involving the superior endplate of T6, T9 and T11. No significant paraspinous hematoma is identified. There is no significant pleural or pericardial fluid. There is periaortic atelectasis and/or pneumonitis in the medial left lower lobe. There is no evidence of mediastinal hematoma. Great vessels in the mediastinum are intact. There does appear to be previous stenting of the left coronary artery. IMPRESSION: Multiple compression fracture deformities extending from T6-T12 with previous augmentation at multiple levels. Consideration could be given to MRI to determine possible superimposed acute fracture. There is mild dependent atelectasis and/or pneumonitis in the medial left lower lobe. CT abdomen and pelvis: Comparison is made to the examination of 06/29/2018. No focal hepatic or splenic lesion is identified. There is mild hiatal hernia. There is defect in the anterior abdominal wall in the upper abdomen containing herniated omentum similar to the previous study. A second area of anterior abdominal wall thinning and protrusion is seen near the level of the umbilicus with protrusion of fat and bowel. There does appear to be rightward small bowel herniation, however, no obstruction is identified. There is moderate amount of stool throughout the colon. No pancreatic, adrenal gland or renal lesion is identified. There is no evidence of free fluid. Partially opacified urinary bladder is unremarkable. There is moderate amount of atherosclerotic calcification. There has been previous augmentation of L5 vertebral body fracture. There is mild concavity of the superior endplate of L1 which could represent fracture of indeterminate age. There is moderate lumbar spondylosis. IMPRESSION: No definite acute intra-abdominal abnormality is identified. There are multiple lumbar compression fracture deformities with previous treatment of L5 fracture. If indicated, MRI may be of use for evaluation of marrow edema or hemorrhage. Dictated by: Dictated on workstation # [id number]
[2018-10-09 10:51] LABS: BILIRUBIN,URINE NEGATIVE (NEGATIVE); CLARITY,URINE CLEAR; COLOR,URINE YELLOW; GLUCOSE, URINE (UA) NEGATIVE (NEGATIVE); KETONES,URINE NEGATIVE (NEGATIVE); LEUKOCYTE ESTERASE ,URINE NEGATIVE (NEGATIVE); NITRITE,URINE NEGATIVE (NEGATIVE); PH,URINE 7 (5-9); PROTEIN,URINE NEGATIVE (NEGATIVE); UROBILINOGEN,URINE NORMAL (NORMAL)
[2018-10-09 11:00] LABS: BACTERIA,URINE NEGATIVE /HPF; RBC,URINE RARE /HPF
[2018-10-09] MEDS ORDERED: KETOROLAC 30 MG/ML VIAL IVP ONE (11:15)
--- NOTE | 2018-10-09 11:30 | NUR ---
PT RESTING IN BED AND STATES THAT HER PAIN IS MUCH BETTER. PT STATES THERE IS NOTHING SHE NEEDS AT THIS TIME. PT INSTRUCTED TO USE CALL LIGHT IF SHE NEEDS ANYTHING.
--- NOTE | 2018-10-09 11:51 | ED Fall/Injury ---
General Chief Complaint: Trauma-Non Activation Stated Complaint: FALL Nursing Triage Note: PT FELL THIS MORNING. PT STATES NO LOC. PT C/O NECK AND BACK PAIN. Source: patient Exam Limitations: no limitations History of Present Illness Location Injury Occurred: NECK,BACK Allergies and Home Medications Allergies Coded Allergies: No Known Drug Allergies (Unverified , 06/10/15) Home Medications Albuterol Sulfate 18 Gm Hfa.aer.ad, 2 PUFF IH Q6H PRN for WHEEZING, (Reported) Aspirin 81 Mg Tablet.dr, 81 MG PO DAILY, (Reported) Clopidogrel Bisulfate 75 Mg Tablet, 75 MG PO DAILY, (Reported) Cyclosporine 1 Each Droperette, 1 DROP OU BID PRN for DRY EYES, (Reported) Dicyclomine HCl 10 Mg Capsule, 10 MG PO QID PRN for CRAMPS, (Reported) Duloxetine HCl 60 Mg Capsule.dr, 60 MG PO DAILY, (Reported) Estradiol 42.5 Gm Cream.appl, 1 GM VG MoWeFr, (Reported) Ezetimibe 10 Mg Tablet, 10 MG PO DAILY, (Reported) LAST FILLED #90 05-09-18 Fesoterodine Fumarate 4 Mg Tab.sr.24h, 4 MG PO DAILY, (Reported) Fluticasone Propionate 16 Gm [place].susp, 1 SPRAY NS BID PRN for ALLERGIES, (Reported) Guaifenesin/Codeine Phosphate 120 Ml Liquid, 5 ML PO Q6H PRN for COUGH Prescribed by: ALIZA HENRY on 09/17/181923 Lactulose 10 Gm/15 Ml Solution, 20 GM PO DAILY PRN for CONSTIPATION-3RD LINE, (Reported) Levothyroxine Sodium 112 Mcg Tablet, 112 MCG PO DAILY, (Reported) Lorazepam 1 Mg Tablet, 1 MG PO TID PRN for ANXIETY, (Reported) Metoprolol Succinate 50 Mg Tab.er.24h, 50 MG PO DAILY, (Reported) Multivitamin with Minerals 1 Each Tablet, 1 TAB PO DAILY, (Reported) Nitroglycerin 0.4 Mg Tab.subl, 0.4 MG SL UD PRN for CHEST PAIN, (Reported) Ondansetron 4 Mg Tab.rapdis, 4 MG PO Q8H PRN for NAUSEA/VOMITING-1ST LINE, (Reported) Oxycodone HCl 10 Mg Tablet, 10 MG PO Q6H PRN for PAIN-SEVERE, (Reported) Pantoprazole Sodium 40 Mg Tablet.dr 40 MG PO DAILY, (Reported) Pregabalin 150 Mg Capsule, 150 MG PO BID, (Reported) Ropinirole HCl 4 Mg Tablet, 8 MG PO 1800, (Reported) TAKES 2 (4MG) TABLETS Sucralfate 1 Gm Tablet, 1 GM PO QID, (Reported) LAST FILLED #120 - Sulfamethoxazole/Trimethoprim 1 Each Tablet, 1 EACH PO BID Prescribed by: ALIZA HENRY on 09/17/181920 Temazepam 15 Mg Capsule, 30 MG PO HS, (Reported) TAKES 2 (15MG) CAPSULES Past Ybottky-Kaqmtz-Xvwpit Hx Patient Social History Alcohol Use: Denies Use Recreational Drug Use: No Smoking Status: Former Smoker Type Used: Cigarettes Former Smoker, Quit: Mar 26, 1996 2nd Hand Smoke Exposure: No Recent Foreign Travel: No Contact w/Someone Who Travel: No Recent Infectious Disease Expo: No Recent Hopitalizations: No Physical Abuse: No Sexual Abuse: No Mistreated: No Fear: No Immunizations Up To Date Tetanus Booster (TDap): Unknown PED Vaccines UTD: No Date of Pneumonia Vaccine: Apr 22, 2009 Date of Influenza Vaccine: Nov 20, 2017 Seasonal Allergies Seasonal Allergies: Yes Past Medical History Surgeries: Yes Abdominal, Appendectomy, Bladder Surgery, Bowel Surgery, Cardiac, Coronary Stent, Hysterectomy, Oophorectomy, Orthopedic, Tonsillectomy Respiratory: Yes COPD Currently Using CPAP: No Currently Using BIPAP: No Cardiac: Yes (CARDIAC CATH WITH STENTS X2) Chronic Edema/Swelling, Coronary Artery Disease, Deep Vein Thrombosis, Heart Attack, High Cholesterol, Hypertension Neurological: Yes (COGNITIVE DEFICIT) Vertigo 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 Disorders: No 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, Menopausal Genitourinary: Yes (INCONTINENCE) Kidney Infection, Bladder Infection, UTI-Chronic Gastrointestinal: Yes (hematemesis) Abdominal Hernia, Gastroesophageal Reflux, Diverticulosis, Esophagitis Musculoskeletal: Yes Osteoporosis, Arthritis, Chronic Back Pain, Fractures Endocrine: Yes Hypothyroidsim HEENT: Yes (FULL DENTURES) Dysphagia Loss of Vision: Denies Hearing Impairment: Denies Cancer: No Psychosocial: Yes (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 0.0oz. [id number]; 29.6 BMI Method:Stated Progress/Results/Core Measures Results/Orders Lab Results Laboratory Tests Test 10/09/18 08:46 10/09/18 10:45 Range/Units White Blood Count 7.8 4.3-11.0 10^3/uL Red Blood Count 4.49 4.35-5.85 10^6/uL Hemoglobin 11.1 L 11.5-16.0 G/DL Hematocrit 35 35-52 % Mean Corpuscular Volume 78 L 80-99 FL Mean Corpuscular Hemoglobin 25 25-34 PG Mean Corpuscular Hemoglobin Concent 32 32-36 G/DL Red Cell Distribution Width 18.8 H 10.0-14.5 % Platelet Count 343 130-400 10^3/uL Mean Platelet Volume 10.0 7.4-10.4 FL Neutrophils (%) (Auto) 65 42-75 % Lymphocytes (%) (Auto) 23 12-44 % Monocytes (%) (Auto) 7 0-12 % Eosinophils (%) (Auto) 5 0-10 % Basophils (%) (Auto) 0 0-10 % Neutrophils # (Auto) 5.0 1.8-7.8 X 10^3 Lymphocytes # (Auto) 1.8 1.0-4.0 X 10^3 Monocytes # (Auto) 0.6 0.0-1.0 X 10^3 Eosinophils # (Auto) 0.4 H 0.0-0.3 10^3/uL Basophils # (Auto) 0.0 0.0-0.1 10^3/uL Sodium Level 134 L 135-145 MMOL/L Potassium Level 3.7 3.6-5.0 MMOL/L Chloride Level 101 98-107 MMOL/L Carbon Dioxide Level 25 21-32 MMOL/L Anion Gap 8 5-14 MMOL/L Blood Urea Nitrogen 8 7-18 MG/DL Creatinine 0.75 0.60-1.30 MG/DL Estimat Glomerular Filtration Rate > 60 BUN/Creatinine Ratio 11 Glucose Level 131 H 70-105 MG/DL Calcium Level 9.4 8.5-10.1 MG/DL Corrected Calcium 9.9 8.5-10.1 MG/DL Magnesium Level 1.8 1.6-2.4 MG/DL Total Bilirubin 0.3 0.1-1.0 MG/DL Aspartate Amino Transf (AST/SGOT) 9 5-34 U/L Alanine Aminotransferase (ALT/SGPT) 10 0-55 U/L Alkaline Phosphatase 94 40-136 U/L Total Protein 5.9 L 6.4-8.2 GM/DL Albumin 3.4 3.2-4.5 GM/DL Urine Color YELLOW Urine Clarity CLEAR Urine pH 7 5-9 Urine Specific [place] 1.005 L 1.016-1.022 Urine Protein NEGATIVE NEGATIVE Urine Glucose (UA) NEGATIVE NEGATIVE Urine Ketones NEGATIVE NEGATIVE Urine Nitrite NEGATIVE NEGATIVE Urine Bilirubin NEGATIVE NEGATIVE Urine Urobilinogen NORMAL NORMAL MG/DL Urine Leukocyte Esterase NEGATIVE NEGATIVE Urine RBC (Auto) NEGATIVE NEGATIVE Urine RBC RARE /HPF Urine WBC NONE /HPF Urine Squamous Epithelial Cells 10-25 H /HPF Urine Crystals NONE /LPF Urine Bacteria NEGATIVE /HPF Urine Casts NONE /LPF Urine Mucus NEGATIVE /LPF Urine Culture Indicated NO My Orders Orders - RADHA PAREDES MD Albuterol/Ipra Inhalation Soln (Duoneb I (10/09/18 08:30) Svn Small Volume Nebulizer (10/09/18 08:25) Albuterol/Ipra Inhalation Soln (Duoneb I (10/09/18 08:19) Ed Iv/Invasive Line Start (10/09/18 08:26) Ns Iv 1000 Ml (Sodium Chloride 0.9%) (10/09/18 08:26) Cbc With Automated Diff (10/09/18 08:26) Comprehensive Metabolic Panel (10/09/18 08:26) Magnesium (10/09/18 08:26) Ua Culture If Indicated (10/09/18 08:26) Monitor-Rhythm Ecg Trace Only (10/09/18 08:26) Ct Head/Cervical Spine Wo (10/09/18 08:26) Fentanyl Injection (Sublimaze Injection (10/09/18 09:00) Ct Chest/Abdomen/Pelvis W (10/09/18 09:20) Iohexol Injection (Omnipaque 350 Mg/Ml 1 (10/09/18 09:30) Received Contrast (Hold Metformin- Contr (10/09/18 09:30) Ns (Ivpb) (Sodium Chloride 0.9% Ivpb Bag (10/09/18 09:30) Fentanyl Injection (Sublimaze Injection (10/09/18 10:30) Ketorolac Injection (Toradol Injection) (10/09/18 11:15) Medications Given in ED Current Medications Medications Dose Ordered Sig/Perez Route Start Time Stop Time Status Last Admin Dose Admin Albuterol/ Ipratropium 3 ml STK-MED ONCE .ROUTE 10/09/18 08:19 10/09/18 08:27 DC 10/09/18 08:27 3 ML Fentanyl Citrate 25 mcg ONCE ONCE IVP 10/09/18 09:00 10/09/18 09:01 DC 10/09/18 08:54 25 MCG Fentanyl Citrate 25 mcg ONCE ONCE IVP 10/09/18 10:30 10/09/18 10:31 DC 10/09/18 10:49 25 MCG Iohexol 100 ml ONCE ONCE IV 10/09/18 09:30 10/09/18 09:31 DC 10/09/18 09:36 93 ML Ketorolac Tromethamine 15 mg ONCE ONCE IVP 10/09/18 11:15 10/09/18 11:16 DC 10/09/18 11:27 15 MG Sodium Chloride 100 ml ONCE ONCE IV 10/09/18 09:30 10/09/18 09:31 DC 10/09/18 09:36 80 ML Sodium Chloride 1,000 ml @ 0 mls/hr Q0M ONCE IV 10/09/18 08:26 10/09/18 08:29 DC 10/09/18 08:54 999 MLS/HR Vital Signs/I&O 10/09/18 10/09/18 08:14 08:27 Temp 98.9 Pulse 68 Resp 22 B/P (MAP) 143/81 (101) Pulse Ox 95 94 O2 Delivery Room Air Room Air Blood Pressure Mean: 101 Departure Impression Primary Impression: Fall on same level as cause of accidental injury Additional Impressions: Vertebral compression fracture Qualified Codes: S22.000A - Wedge compression fracture of unspecified thoracic vertebra, initial encounter for closed fracture Minor head injury Qualified Codes: S09.90XA - Unspecified injury of head, initial encounter Departure-Patient Inst. Decision time for Depature: 11:49 Referrals: TORIBIO BREWER DO (PCP/Family) Primary Care Physician Patient Instructions: Preventing Falls in the Older Adult, Vertebral Compression Fracture (DC) Add. Discharge Instructions: Use hydrocodone as prescribed for pain management. You may wish to take a stool softener such as Colace to prevent constipation when using hydrocodone. Follow-up with Dr. Brewer as soon as possible. Resting may improve pain for compression fractures initially, but you should increase activity as tolerated as soon as possible. Return to the ER if you have any worsening symptoms or other concerns. All discharge instructions reviewed with patient and/or family. Voiced understanding. Scripts Hydrocodone Bit/Acetaminophen (Hydrocodone/Acetaminophen 5/325mg Tablet) 1 Tab Tab 1 EACH PO Q4-6HR PRN for PAIN-MODERATE MDD 10, #20 TAB Prov: RADHA PAREDES MD 10/09/18 Copy Copies To 1: TORIBIO BREWER JOSHUA T MD Oct 09, 2018 11:51
[2018-10-09] MEDS ORDERED: ACHD5005 PO (11:53)
--- NOTE | 2018-10-09 12:20 | NUR ---
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
[2018-10-09 12:24] VITALS: BP 130/68
== END 2018-10-09 12:08 | disposition home or self-care (01) ==
LOC: EDUNIT# 08:10 → ER 08:11
DX: S09.90XA Unspecified injury of head, initial encounter (principal); S22.020A Wedge compression fracture of second thoracic vertebra, initial encounter for closed fracture; J44.9 Chronic obstructive pulmonary disease, unspecified; I10 Essential (primary) hypertension; E78.00 Pure hypercholesterolemia, unspecified; I25.2 Old myocardial infarction; I25.10 Atherosclerotic heart disease of native coronary artery without angina pectoris; K21.0 Gastro-esophageal reflux disease with esophagitis; M81.0 Age-related osteoporosis without current pathological fracture; E03.9 Hypothyroidism, unspecified; F41.9 Anxiety disorder, unspecified; F32.9 Major depressive disorder, single episode, unspecified; Z82.49 Family history of ischemic heart disease and other diseases of the circulatory system; Z87.440 Personal history of urinary (tract) infections; Z86.718 Personal history of other venous thrombosis and embolism; Z79.82 Long term (current) use of aspirin; Z79.02 Long term (current) use of antithrombotics/antiplatelets; Z87.891 Personal history of nicotine dependence; Z90.49 Acquired absence of other specified parts of digestive tract; Z90.710 Acquired absence of both cervix and uterus; Z90.89 Acquired absence of other organs; W18.30XA Fall on same level, unspecified, initial encounter
CPT/HCPCS: 36415; 70450; 71260; 72125; 74177; 80053; 81000; 83735; 85025; 93041; 94640

== ENCOUNTER 2018-10-31 04:11 | Emergency (ER) | payer MEDICARE, MEDICAID ==
[~2018-10-31] VITALS: Wt 70.0 kg
[2018-10-31] MEDS ORDERED: ASPIRIN 81 MG CHEW (CHILDREN'S ASA) PO ONE (04:15)
--- NOTE | 2018-10-31 04:42 | ED General ---
General Chief Complaint: General Problems/Pain Stated Complaint: WEAKNESS,UPPER CHEST PAIN Source of Information: Patient (SOMEWHAT LIMITED HISTORIAN , WITH MULTIPLE COMPLAINTS) History of Present Illness Date Seen by Provider: Oct 31, 2018 Time Seen by Provider: 04:14 Initial Comments PT ARRIVES VIA EMS FROM HOME--LIVES AT HOME WITH 24 HOUR CARETAKERS STATES SHE "HASN'T FELT GOOD FOR A COUPLE OF WEEKS" C/O GENERALIZED WEAKNESS C/O UPPER CHEST DISCOMFORT C/O HOARSE VOICE C/O NON-PRODUCTIVE COUGH DOES NOT KNOW IF SHE HAS HAD FEVER--TOOK TYLENOL A COUPLE OF DAYS AGO, BUT NONE SINCE--SAYS SHE RAN OUT HAS COPD AND IS ALWAYS SHORT OF BREATH, BUT HAS NOT USED HER NEBULIZER OR INHALER IN A LONG TIME NO SWELLING IN LEGS/ FEET OR PAIN IN [place] 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 HAVE NOT GIVEN HER ANYTHING FOR SYMPTOMS SYMPTOMS NO DIFFERENT TODAY HAS NOT SOUGHT CARE UNTIL TODAY PT WITH MULTITUDE OF VISITS FOR VARIOUS COMPLAINTS LAST VISIT WAS 10/09/18 AFTER A FALL AND HITTING HER HEAD, PT HAS MULTIPLE COMPRESSION FRACTURES--MOST OF WHICH ARE OLD, BUT UNABLE TO DETERMINE ACUITY OF SOME HERE 09/17/18 FOR SHORTNESS OF BREATH AND DYSURIA--GIVEN RX FOR BACTRIM 08/30 AND 08/28 FOR HEMATEMESIS MULTIPLE VISITS FOR EITHER SOME PAIN COMPLAINT OR GI COMPLAINT, WELL OCCASIONALLY FOR RESPIRATORY COMPLAINTS OR UTI COMPLAINTS. PCP: DR. FOFANA SURGEON: DR. GUZMAN [place], [place] ( [facility] ) Allergies and Home Medications Allergies Coded Allergies: No Known Drug Allergies (Unverified , 10/31/18) Home Medications Albuterol Sulfate 18 Gm Hfa.aer.ad, 2 PUFF IH Q6H PRN for WHEEZING, (Reported) Albuterol Sulfate 2.5 Mg/3 Ml Vial.neb, 2.5 MG IH Q4H Prescribed by: BETTY MAZARIEGOS on 10/31/18623 Aspirin 81 Mg Tablet.dr, 81 MG PO DAILY, (Reported) Benzonatate 100 Mg Capsule, 1-2 TAB PO TID Prescribed by: BETTY MAZARIEGOS on 10/31/18623 Clopidogrel Bisulfate 75 Mg Tablet, 75 MG PO DAILY, (Reported) Cyclosporine 1 Each Droperette, 1 DROP OU BID PRN for DRY EYES, (Reported) Dicyclomine HCl 10 Mg Capsule, 10 MG PO QID PRN for CRAMPS, (Reported) Duloxetine HCl 60 Mg Capsule.dr, 60 MG PO DAILY, (Reported) Estradiol 42.5 Gm Cream.appl, 1 GM VG MoWeFr, (Reported) Ezetimibe 10 Mg Tablet, 10 MG PO DAILY, (Reported) LAST FILLED #90 05-09-18 Fesoterodine Fumarate 4 Mg Tab.sr.24h, 4 MG PO DAILY, (Reported) Fluticasone Propionate 16 Gm [place].susp, 1 SPRAY NS BID PRN for ALLERGIES, (Reported) Guaifenesin/Codeine Phosphate 120 Ml Liquid, 5 ML PO Q6H PRN for COUGH Prescribed by: ALIZA HENRY on 09/17/181923 Guaifenesin/Dextromethorphan 1 Each Tbmp.12hr, 1 EACH PO BID Prescribed by: BETTY MAZARIEGOS on 10/31/18623 Hydrocodone Bit/Acetaminophen 1 Tab Tab, 1 EACH PO Q4-6HR PRN for PAIN-MODERATE Prescribed by: RADHA RIVAS on 10/09/18 1153 Lactulose 10 Gm/15 Ml Solution, 20 GM PO DAILY PRN for CONSTIPATION-3RD LINE, (Reported) Levothyroxine Sodium 112 Mcg Tablet, 112 MCG PO DAILY, (Reported) Lorazepam 1 Mg Tablet, 1 MG PO TID PRN for ANXIETY, (Reported) Methylprednisolone 4 Mg Tab.ds.pk, 4 MG PO UD Prescribed by: BETTY MAZARIEGOS on 10/31/18623 Metoprolol Succinate 50 Mg Tab.er.24h, 50 MG PO DAILY, (Reported) Multivitamin with Minerals 1 Each Tablet, 1 TAB PO DAILY, (Reported) Nitroglycerin 0.4 Mg Tab.subl, 0.4 MG SL UD PRN for CHEST PAIN, (Reported) Ondansetron 4 Mg Tab.rapdis, 4 MG PO Q8H PRN for NAUSEA/VOMITING-1ST LINE, (Reported) Oseltamivir Phosphate 75 Mg Cap, 75 MG PO BID Prescribed by: BETTY MAZARIEGOS on 10/31/18623 Oxycodone HCl 10 Mg Tablet, 10 MG PO Q6H PRN for PAIN-SEVERE, (Reported) Pantoprazole Sodium 40 Mg Tablet.dr, 40 MG PO DAILY, (Reported) Pregabalin 150 Mg Capsule, 150 MG PO BID, (Reported) Ropinirole HCl 4 Mg Tablet, 8 MG PO 1800, (Reported) TAKES 2 (4MG) TABLETS Sucralfate 1 Gm Tablet, 1 GM PO QID, (Reported) LAST FILLED #120 07-03-18 Sulfamethoxazole/Trimethoprim 1 Each Tablet, 1 EACH PO BID Prescribed by: ALIZA HENRY on 09/17/181920 Temazepam 15 Mg Capsule, 30 MG PO HS, (Reported) TAKES 2 (15MG) CAPSULES Patient Home Medication List Home Medication List Reviewed: Yes Review of Systems Review of Systems Constitutional: see HPI, weakness EENTM: see HPI, hoarseness Respiratory: see HPI, cough, short of breath Cardiovascular: see HPI, chest pain Gastrointestinal: no symptoms reported Genitourinary: other (WANTS MEDICATION FOR UTI--ALTHOUGH SHE IS NOT COMPLAINING OF ANY SYMPTOMS NOW) Musculoskeletal: no symptoms reported Psychiatric/Neurological: No Symptoms Reported Hematologic/Lymphatic: No Symptoms Reported Past Drlbuzw-Ittlup-Vupedp Hx Past Med/Social Hx: Reviewed and Corrections made Patient Social History Recreational Drug Use: Yes (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) Drug of Choice: EXTENSIVE HX OF DRUG ABUSE/OVERDOSES/EXCESSIVE USE Smoking Status: Former Smoker (1 PPD) Type Used: Cigarettes Former Smoker, Quit: Mar 26, 1996 2nd Hand Smoke Exposure: No Recent Foreign Travel: No Contact w/Someone Who Travel: No Recent Hopitalizations: No Immunizations Up To Date Tetanus Booster (TDap): Unknown PED Vaccines UTD: No Date of Pneumonia Vaccine: Apr 22, 2009 Date of Influenza Vaccine: Nov 20, 2017 Seasonal Allergies Seasonal Allergies: Yes Past Medical History Surgeries: Yes (CARDIAC CATH--STENTS X 2; KYPHOPLASTY X 2; MULTIPLE EGD'S AND COLONOSCOPIES AND DILATION OF ESOPHAGEAL STRICTURES; MULTIPLE ABDOMINAL SURGERIES--MULTIPLE HERNIA REPAIRS, COLON RESECTION WITH COLOSTOMY FOR PERFORATED DIVERTICULUM/DIVERTICULITIS, WITH LATER REVERSAL/TAKE DOWN AND LARGE VENTRAL/PARASTOMAL HERNIA REPAIR 05/12/[address] 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 GUZMAN IN [place]; APP; CHRONIC ABDOMINAL PAIN COMPLAINTS) Abdominal Hernia, Gastroesophageal Reflux, Diverticulosis, Esophagitis Musculoskeletal: Yes (COMPRESSION FRACTURES--S/P KYPHOPLASTY; FREQUENT FALLS/ IMPAIRED MOBILITY--USES WALKER; RESTLESS LEG SYNDROME; RIGHT PALUMBO'S CYST; MULTIPLE VERTEBRAL COMPRESSION FRACTURES OF THORACIC AND LUMBAR SPINE--S/P KYPHOPLASTY X 2 ; RIGHT HIP FX/ ORIF) Osteoporosis, Arthritis, Chronic Back Pain, Fractures Endocrine: Yes Hypothyroidsim HEENT: Yes (FULL DENTURES) Dysphagia Loss of Vision: Denies Hearing Impairment: Denies Cancer: No Psychosocial: Yes (EXTENSIVE HISTORY OF RX ABUSE/OVERDOSES/EXCESSIVE USE--OPIATES AND BENZO'S ) Anxiety, Depression Integumentary: No Blood Disorders: No Adverse Reaction/Blood Tranf: No Family Medical History Family history: Hypertension G8 BROTHER Myocardial infarction 19 MOTHER G8 BROTHER Physical Exam Vital Signs Vital Signs - First Documented 10/31/18 04:14 Temp 37.3 Pulse 70 Resp 20 B/P (MAP) 148/75 (99) Pulse Ox 98 O2 Delivery Nasal Cannula O2 Flow Rate 2.00 Capillary Refill : Height, Weight, BMI Height: 5'2.00" Weight: 163lbs. 0.0oz. 73.303552sh; 29.6 BMI Method:Stated General Appearance: No Apparent Distress, WD/WN HEENT: PERRL/EOMI, TMs Normal, Other (VOICE MILDLY HOARSE. MILD POSTERIOR PHARYNGEAL ERYTHEMA. NO SINUS DRAINGE OR TENDERNESS. 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 coordinator II-XII Norm as Tested Skin: Normal Color, Warm/Dry Focused Exam Lactate Level 10/31/18 05:15: Lactic Acid Level 0.99 Lactic Acid Level Laboratory Tests Test 10/31/18 05:15 Lactic Acid Level 0.99 MMOL/L (0.50-2.00) Progress/Results/Core Measures Suspected Sepsis SIRS Temperature: Pulse: Respiratory Rate: Laboratory Tests 10/31/18 05:11: White Blood Count 6.9 Blood Pressure / Mean: 10/31/18 05:15: Lactic Acid Level 0.99 Laboratory Tests 10/31/18 05:11: Creatinine 0.76, INR Comment 0.9, Platelet Count 324, Total Bilirubin 0.3 Results/Orders Lab Results Laboratory Tests Test 10/31/18 05:11 10/31/18 05:15 10/31/18 05:55 Range/Units White Blood Count 6.9 4.3-11.0 10^3/uL Red Blood Count 4.83 4.35-5.85 10^6/uL Hemoglobin 11.9 11.5-16.0 G/DL Hematocrit 38 35-52 % Mean Corpuscular Volume 78 L 80-99 FL Mean Corpuscular Hemoglobin 25 25-34 PG Mean Corpuscular Hemoglobin Concent 32 32-36 G/DL Red Cell Distribution Width 18.2 H 10.0-14.5 % Platelet Count 324 130-400 10^3/uL Mean Platelet Volume 10.6 H 7.4-10.4 FL Neutrophils (%) (Auto) 61 42-75 % Lymphocytes (%) (Auto) 27 12-44 % Monocytes (%) (Auto) 7 0-12 % Eosinophils (%) (Auto) 5 0-10 % Basophils (%) (Auto) 1 0-10 % Neutrophils # (Auto) 4.2 1.8-7.8 X 10^3 Lymphocytes # (Auto) 1.8 1.0-4.0 X 10^3 Monocytes # (Auto) 0.5 0.0-1.0 X 10^3 Eosinophils # (Auto) 0.3 0.0-0.3 10^3/uL Basophils # (Auto) 0.0 0.0-0.1 10^3/uL Prothrombin Time 12.3 12.2-14.7 SEC INR Comment 0.9 0.8-1.4 Activated Partial Thromboplast Time 26 24-35 SEC Sodium Level 134 L 135-145 MMOL/L Potassium Level 4.2 3.6-5.0 MMOL/L Chloride Level 101 98-107 MMOL/L Carbon Dioxide Level 24 21-32 MMOL/L Anion Gap 9 5-14 MMOL/L Blood Urea Nitrogen 14 7-18 MG/DL Creatinine 0.76 0.60-1.30 MG/DL Estimat Glomerular Filtration Rate > 60 BUN/Creatinine Ratio 18 Glucose Level 94 70-105 MG/DL Calcium Level 9.7 8.5-10.1 MG/DL Corrected Calcium 9.9 8.5-10.1 MG/DL Magnesium Level 2.2 1.6-2.4 MG/DL Total Bilirubin 0.3 0.1-1.0 MG/DL Aspartate Amino Transf (AST/SGOT) 12 5-34 U/L Alanine Aminotransferase (ALT/SGPT) 8 0-55 U/L Alkaline Phosphatase 104 40-136 U/L Total Creatine Kinase 10 L 29-168 U/L Creatine Kinase MB 0.7 <6.6 NG/ML Troponin I < 0.028 <0.028 NG/ML B-Type Natriuretic Peptide 189.0 H <100.0 PG/ML Total Protein 6.5 6.4-8.2 GM/DL Albumin 3.8 3.2-4.5 GM/DL Amylase Level 19 L 25-125 U/L Lipase 4 L 8-78 U/L Lactic Acid Level 0.99 0.50-2.00 MMOL/L Urine Color YELLOW Urine Clarity CLEAR Urine pH 6 5-9 Urine Specific [place] 1.015 L 1.016-1.022 Urine Protein NEGATIVE NEGATIVE Urine Glucose (UA) NEGATIVE NEGATIVE Urine Ketones NEGATIVE NEGATIVE Urine Nitrite NEGATIVE NEGATIVE Urine Bilirubin NEGATIVE NEGATIVE Urine Urobilinogen NORMAL NORMAL MG/DL Urine Leukocyte Esterase 1+ H NEGATIVE Urine RBC (Auto) NEGATIVE NEGATIVE Urine RBC NONE /HPF Urine WBC 0-2 /HPF Urine Squamous Epithelial Cells 5-10 /HPF Urine Crystals NONE /LPF Urine Bacteria NEGATIVE /HPF Urine Casts NONE /LPF Urine Mucus NEGATIVE /LPF Urine Culture Indicated NO Micro Results Microbiology 10/31/18 Influenza Types A,B Antigen (GOLDEN) - Final, Complete My Orders Orders - BETTY MAZARIEGOS DO Ed Iv/Invasive Line Start (10/31/18 04:14) Ekg Tracing (10/31/18 04:14) O2 (10/31/18 04:14) Monitor-Rhythm Ecg Trace Only (10/31/18 04:14) Amylase (10/31/18 04:14) BNP (10/31/18 04:14) Cbc With Automated Diff (10/31/18 04:14) Comprehensive Metabolic Panel (10/31/18 04:14) Creatine Kinase (10/31/18 04:14) Creatine Kinase Mb (10/31/18 04:14) Lactic Acid Analyzer (10/31/18 04:14) Lipase (10/31/18 04:14) Magnesium (10/31/18 04:14) Protime With Inr (10/31/18 04:14) Partial Thromboplastin Time (10/31/18 04:14) Blood Culture (10/31/18 04:14) Influenza A And B Antigens (10/31/18 04:14) Troponin I (10/31/18 04:14) Chest 1 View, Ap/Pa Only (10/31/18 04:14) Aspirin Chewable Tablet (Baby Aspirin Ch (10/31/18 04:15) Albuterol/Ipra Inhalation Soln (Duoneb I (10/31/18 05:00) Dexamethasone Injection (Decadron Inject (10/31/18 05:00) Rt Request For Service (10/31/18 04:56) Methylprednisolone Sod Succ (Solu-Medrol (10/31/18 04:56) Svn Small Volume Nebulizer (10/31/18 04:56) Oseltamivir 75 Mg Capsule (Tamiflu 75 (10/31/18 05:15) Ua Culture If Indicated (10/31/18 06:03) Medications Given in ED Current Medications Medications Dose Ordered Sig/Perez Route Start Time Stop Time Status Last Admin Dose Admin Albuterol/ Ipratropium 3 ml ONCE ONCE INH 10/31/18 05:00 10/31/18 05:01 DC 10/31/18 05:22 3 ML Aspirin 324 mg ONCE ONCE PO 10/31/18 04:15 10/31/18 04:18 DC 10/31/18 04:31 324 MG Dexamethasone Sodium Phosphate 20 mg ONCE ONCE IH 10/31/18 05:00 10/31/18 05:01 DC 10/31/18 05:22 20 MG Oseltamivir Phosphate 75 mg ONCE ONCE PO 10/31/18 05:15 10/31/18 05:16 DC 10/31/18 05:13 75 MG Vital Signs/I&O 10/31/18 10/31/18 10/31/18 04:14 04:18 05:22 Temp 37.3 Pulse 70 Resp 20 B/P (MAP) 148/75 (99) Pulse Ox 98 95 100 O2 Delivery Nasal Cannula Nasal Cannula Nasal Cannula O2 Flow Rate 2.00 2.00 1.00 Capillary Refill : Progress Note : Progress Note UNEVENTFUL ER STAY GIVEN NEB TREATMENT WITH INCREASED AERATION, AND PT IS NO LONGER DYSPNEIC ECG Initial ECG Impression Date: Oct 31, 2018 Initial ECG Impression Time: 04:18 Initial ECG Rate: 63 Initial ECG Rhythm: Normal Sinus Initial ECG Comparisson: Unchanged Diagnostic Imaging Comments CXR--MINIMAL LEFT BASILAR ATELECTASIS, OTHERWISE NO ACUTE PROCESS, PER RADIOLOGIST REPORT AT 0611 Reviewed: Reviewed by Me Departure Impression Primary Impression: Influenza B Additional Impression: COPD exacerbation Disposition: 01 HOME, SELF-CARE Condition: Improved Departure-Patient Inst. Referrals: TORIBIO FOFANA DO (PCP/Family) Primary Care Physician Patient Instructions: Flu, Adult (DC) Add. Discharge Instructions: LOTS OF CLEAR LIQUIDS TYLENOL 1 GRAM / MOTRIN 800 MG 4 TIMES A DAY FOR PAIN OR FEVER CONTINUE YOUR REGULAR MEDICATIONS PRESCRIBED USE YOUR HOME OXYGEN AT NIGHT, ANY TIME YOU ARE SLEEPING, AND NEEDED DURING THE DAY FOLLOW UP WITH YOUR DR IN 3-4 DAYS IF NO BETTER All discharge instructions reviewed with patient and/or family. Voiced understa nding. Scripts Nebulizer (Compact Compressor Nebulizer) 1 Each Each EACH for BREATHING, #1 Prov: BETTY MAZARIEGOS DO 10/31/18 Benzonatate (TESSALON PERLES) 100 Mg Capsule 1-2 TAB PO TID for Cough, #30 CAP Prov: BETTY MAZARIEGOS DO 10/31/18 Methylprednisolone (Medrol) 4 Mg Tab.ds.pk 4 MG PO UD, #1 PKG Prov: BETTY MAZARIEGOS DO 10/31/18 Guaifenesin/Dextromethorphan (Mucinex Dm ER 1,200-60 mg Tab) 1 Each Tbmp.12hr 1 EACH PO BID for 10 Days, #20 EA Prov: BETTY MAZARIEGOS DO 10/31/18 Oseltamivir Phosphate (Tamiflu) 75 Mg Cap 75 MG PO BID, #10 CAP Prov: BETTY MAZARIEGOS DO 10/31/18 Albuterol Sulfate (Albuterol Sulfate) 2.5 Mg/3 Ml Vial.neb 2.5 MG IH Q4H, #1 EA Prov: BETTY MAZARIEGOS DO 10/31/18 BETTY MAZARIEGOS DO Oct 31, 2018 04:42
--- NOTE | 2018-10-31 04:55 | NUR ---
LAB CALLED TO OBTAIN BLOOD FOR TESTING
[2018-10-31] MEDS ORDERED: methylPREDNISolone 125 MG (Solu-MEDROL) VIAL IV STA (04:56)
[2018-10-31] MEDS ORDERED: DEXAMETHASONE 4 MG/ML SDV (DECADRON) IH ONE (05:00)
[2018-10-31] MEDS ORDERED: RT-ALBUTEROL/IPRATROPIUM 3 ML (DUONEB) VIAL INH ONE (05:00)
--- NOTE | 2018-10-31 05:00 | NUR ---
LAB REPORTS PATIENT IS POSITIVE FOR INFLUENZA B. REPORTED TO DR MAZARIEGOS
[2018-10-31] MEDS ORDERED: OSELTAMIVIR 75 MG (TAMIFLU) CAPSULE PO ONE (05:15)
[2018-10-31 05:35] LABS: BASOPHILS % (AUTO) 1 % (0-10); EOSINOPHILS # (AUTO) 0.3 10^3/uL (0.0-0.3); EOSINOPHILS % (AUTO) 5 % (0-10); HEMATOCRIT 38 % (35-52); HEMOGLOBIN 11.9 G/DL (11.5-16.0); LYMPHOCYTES # (AUTO) 1.8 X 10^3 (1.0-4.0); LYMPHOCYTES % (AUTO) 27 % (12-44); MEAN CORPUSCULAR HEMOGLOBIN 25 PG (25-34); MEAN CORPUSCULAR HGB CONC 32 G/DL (32-36); MEAN CORPUSCULAR VOLUME 78 FL (80-99); MEAN PLATELET VOLUME 10.6 FL (7.4-10.4); MONOCYTES # (AUTO) 0.5 X 10^3 (0.0-1.0); MONOCYTES % (AUTO) 7 % (0-12); NEUTROPHILS # (AUTO) 4.2 X 10^3 (1.8-7.8); NEUTROPHILS % (AUTO) 61 % (42-75); PLATELET COUNT 324 10^3/uL (130-400); RED CELL DISTRIBUTION WIDTH 18.2 % (10.0-14.5); WHITE BLOOD COUNT 6.9 10^3/uL (4.3-11.0)
[2018-10-31 05:41] LABS: INR 0.9 (0.8-1.4); PROTHROMBIN TIME PATIENT 12.3 SEC (12.2-14.7)
[2018-10-31 05:49] LABS: ALANINE AMINOTRANSFERASE 8 U/L (0-55); ALBUMIN 3.8 GM/DL (3.2-4.5); ALKALINE PHOSPHATASE 104 U/L (40-136); AMYLASE 19 U/L (25-125); BILIRUBIN,TOTAL 0.3 MG/DL (0.1-1.0); BUN/CREATININE RATIO 18; CALCIUM 9.7 MG/DL (8.5-10.1); CARBON DIOXIDE 24 MMOL/L (21-32); CHLORIDE 101 MMOL/L (98-107); CREATINE KINASE 10 U/L (29-168); CREATININE SERUM 0.76 MG/DL (0.60-1.30); GFR ESTIMATED > 60; GLUCOSE 94 MG/DL (70-105); LIPASE 4 U/L (8-78); MAGNESIUM 2.2 MG/DL (1.6-2.4); POTASSIUM 4.2 MMOL/L (3.6-5.0); SODIUM 134 MMOL/L (135-145); TOTAL PROTEIN 6.5 GM/DL (6.4-8.2)
[2018-10-31 05:56] LABS: CREATINE KINASE MB 0.7 NG/ML (<6.6)
--- NOTE | 2018-10-31 06:04 | Diagnostic Imaging Report ---
EXAMINATION: AP upright portable chest. INDICATION: Chest pain and cough. COMPARISON: Multiple priors, most recent performed on 09/17/2017. FINDINGS: There is mild left basilar atelectasis. Lungs are otherwise clear and the pulmonary vasculature is normal. No pneumothorax or large pleural effusion. The cardiomediastinal silhouette is unchanged. No acute osseous abnormality. The patient is status post kyphoplasty and compression deformities involving multiple vertebral bodies. IMPRESSION: Mild left basilar atelectasis, otherwise no radiographic evidence of acute chest disease. Dictated by: Dictated on workstation # [id number]
[2018-10-31 06:18] LABS: BACTERIA,URINE NEGATIVE /HPF; BILIRUBIN,URINE NEGATIVE (NEGATIVE); CLARITY,URINE CLEAR; COLOR,URINE YELLOW; GLUCOSE, URINE (UA) NEGATIVE (NEGATIVE); KETONES,URINE NEGATIVE (NEGATIVE); LEUKOCYTE ESTERASE ,URINE 1+ (NEGATIVE); NITRITE,URINE NEGATIVE (NEGATIVE); PH,URINE 6 (5-9); PROTEIN,URINE NEGATIVE (NEGATIVE); UROBILINOGEN,URINE NORMAL (NORMAL); WBC,URINE 0-2 /HPF
[2018-10-31] MEDS ORDERED: NEBU1KIT3 MC (06:24)
[2018-10-31] MEDS ORDERED: BENZ100C18 PO (06:24)
[2018-10-31] MEDS ORDERED: GUAI1TBM19 PO (06:24)
[2018-10-31] MEDS ORDERED: ALBU2.5V4 IH (06:24)
[2018-10-31] MEDS ORDERED: METH4TAB PO (06:24)
[2018-10-31] MEDS ORDERED: OSLT75C PO (06:24)
[2018-10-31 06:51] VITALS: BP 120/86
== END 2018-10-31 06:51 | disposition home or self-care (01) ==
LOC: EDUNIT# 04:11 → ER 04:13
DX: J10.1 Influenza due to other identified influenza virus with other respiratory manifestations (principal); J44.1 Chronic obstructive pulmonary disease with (acute) exacerbation; G47.30 Sleep apnea, unspecified; I25.10 Atherosclerotic heart disease of native coronary artery without angina pectoris; I10 Essential (primary) hypertension; E78.00 Pure hypercholesterolemia, unspecified; F32.9 Major depressive disorder, single episode, unspecified; Z79.82 Long term (current) use of aspirin; Z79.02 Long term (current) use of antithrombotics/antiplatelets; Z87.891 Personal history of nicotine dependence; Z95.5 Presence of coronary angioplasty implant and graft; Z98.890 Other specified postprocedural states; Z93.3 Colostomy status; Z90.49 Acquired absence of other specified parts of digestive tract; Z90.710 Acquired absence of both cervix and uterus; Z90.89 Acquired absence of other organs; Z86.711 Personal history of pulmonary embolism; Z87.440 Personal history of urinary (tract) infections; Z82.49 Family history of ischemic heart disease and other diseases of the circulatory system
CPT/HCPCS: 36415; 71045; 80053; 81000; 82150; 82550; 82553; 83605; 83690; 83735; 83880; 84484; 85025; 85610; 85730; 87040; 87804; 93005; 93041; 94640; 96374

== ENCOUNTER 2018-11-06 02:45 | Inpatient (IN) | payer MEDICARE, MEDICAID ==
[~2018-11-06] VITALS: Ht 157.5 cm; Wt 73.9 kg
[~2018-11-06 02:45] MED LIST changes: +ALBU2.5V4 IH; +BENZ100C18 PO; +GUAI1TBM19 PO; +NEBU1KIT3 MC; +OSLT75C PO
[2018-11-06] MEDS ORDERED: FAMOTIDINE 20MG/2ML IV (PEPCID) IVP ONE (03:00)
[2018-11-06] MEDS ORDERED: fentaNYL INJECTION 100 MCG/2 ML AMP IVP ONE (03:00)
[2018-11-06] MEDS ORDERED: ONDANSETRON 4 MG/2 ML (SDV) Z0FRAN IVP ONE (03:00)
[2018-11-06 03:36] LABS: BASOPHILS # (AUTO) 0.1 10^3/uL (0.0-0.1); BASOPHILS % (AUTO) 0 % (0-10); EOSINOPHILS # (AUTO) 0.1 10^3/uL (0.0-0.3); EOSINOPHILS % (AUTO) 1 % (0-10); HEMATOCRIT 40 % (35-52); HEMOGLOBIN 12.7 G/DL (11.5-16.0); LYMPHOCYTES # (AUTO) 1.8 X 10^3 (1.0-4.0); LYMPHOCYTES % (AUTO) 9 % (12-44); MEAN CORPUSCULAR HEMOGLOBIN 24 PG (25-34); MEAN CORPUSCULAR HGB CONC 32 G/DL (32-36); MEAN CORPUSCULAR VOLUME 75 FL (80-99); MEAN PLATELET VOLUME 10.7 FL (7.4-10.4); MONOCYTES # (AUTO) 1.4 X 10^3 (0.0-1.0); MONOCYTES % (AUTO) 7 % (0-12); NEUTROPHILS # (AUTO) 17.9 X 10^3 (1.8-7.8); NEUTROPHILS % (AUTO) 84 % (42-75); PLATELET COUNT 411 10^3/uL (130-400); RED CELL DISTRIBUTION WIDTH 18.6 % (10.0-14.5); WHITE BLOOD COUNT 21.4 10^3/uL (4.3-11.0)
--- NOTE | 2018-11-06 03:43 | ED Abdominal Pain ---
General Chief Complaint: Abdominal/GI Problems Stated Complaint: ABD PAIN Source of Information: Patient, EMS Exam Limitations: No Limitations History of Present Illness Date Seen by Provider: Nov 06, 2018 Time Seen by Provider: 02:46 Initial Comments This 78-year-old woman presents to the emergency room via EMS with complaints of abdominal pain, vomiting, and abdominal distention since about 18:00. She is well-known to this provider and has a significantly distended abdomen compared to prior. She states her pain is worse than her chronic pain and she rates it as a 10. She is afebrile. Allergies and Home Medications Allergies Coded Allergies: No Known Drug Allergies (Unverified , 10/31/18) Home Medications Albuterol Sulfate 18 Gm Hfa.aer.ad, 2 PUFF IH Q6H PRN for WHEEZING, (Reported) Albuterol Sulfate 2.5 Mg/3 Ml Vial.neb, 2.5 MG IH Q4H Prescribed by: BETTY MAZARIEGOS on 10/31/18623 Aspirin 81 Mg Tablet.dr, 81 MG PO DAILY, (Reported) Benzonatate 100 Mg Capsule, 1-2 TAB PO TID Prescribed by: BETTY MAZARIEGOS on 10/31/18623 Clopidogrel Bisulfate 75 Mg Tablet, 75 MG PO DAILY, (Reported) Cyclosporine 1 Each Droperette, 1 DROP OU BID PRN for DRY EYES, (Reported) Dicyclomine HCl 10 Mg Capsule, 10 MG PO QID PRN for CRAMPS, (Reported) Duloxetine HCl 60 Mg Capsule.dr, 60 MG PO DAILY, (Reported) Estradiol 42.5 Gm Cream.appl, 1 GM VG MoWeFr, (Reported) Ezetimibe 10 Mg Tablet, 10 MG PO DAILY, (Reported) LAST FILLED #90 05-09-18 Fesoterodine Fumarate 4 Mg Tab.sr.24h, 4 MG PO DAILY, (Reported) Fluticasone Propionate 16 Gm [place].susp, 1 SPRAY NS BID PRN for ALLERGIES, (Reported) Guaifenesin/Codeine Phosphate 120 Ml Liquid, 5 ML PO Q6H PRN for COUGH Prescribed by: ALIZA HENRY on 09/17/181923 Guaifenesin/Dextromethorphan 1 Each Tbmp.12hr, 1 EACH PO BID Prescribed by: BETTY MAZARIEGOS on 10/31/18623 Hydrocodone Bit/Acetaminophen 1 Tab Tab, 1 EACH PO Q4-6HR PRN for PAIN-MODERATE Prescribed by: RADHA RIVAS on 10/09/18 1153 Lactulose 10 Gm/15 Ml Solution, 20 GM PO DAILY PRN for CONSTIPATION-3RD LINE, (Reported) Levothyroxine Sodium 112 Mcg Tablet, 112 MCG PO DAILY, (Reported) Lorazepam 1 Mg Tablet, 1 MG PO TID PRN for ANXIETY, (Reported) Methylprednisolone 4 Mg Tab.ds.pk, 4 MG PO UD Prescribed by: BETTY MAZARIEGOS on 10/31/18623 Metoprolol Succinate 50 Mg Tab.er.24h, 50 MG PO DAILY, (Reported) Multivitamin with Minerals 1 Each Tablet, 1 TAB PO DAILY, (Reported) Nitroglycerin 0.4 Mg Tab.subl, 0.4 MG SL UD PRN for CHEST PAIN, (Reported) Ondansetron 4 Mg Tab.rapdis, 4 MG PO Q8H PRN for NAUSEA/VOMITING-1ST LINE, (Reported) Oseltamivir Phosphate 75 Mg Cap, 75 MG PO BID Prescribed by: BETTY MAZARIEGOS on 10/31/18623 Oxycodone HCl 10 Mg Tablet, 10 MG PO Q6H PRN for PAIN-SEVERE, (Reported) Pantoprazole Sodium 40 Mg Tablet.dr, 40 MG PO DAILY, (Reported) Pregabalin 150 Mg Capsule, 150 MG PO BID, (Reported) Ropinirole HCl 4 Mg Tablet, 8 MG PO 1800, (Reported) TAKES 2 (4MG) TABLETS Sucralfate 1 Gm Tablet, 1 GM PO QID, (Reported) LAST FILLED #120 07-03-18 Sulfamethoxazole/Trimethoprim 1 Each Tablet, 1 EACH PO BID Prescribed by: ALIZA HENRY on 09/17/181920 Temazepam 15 Mg Capsule, 30 MG PO HS, (Reported) TAKES 2 (15MG) CAPSULES Patient Home Medication List Home Medication List Reviewed: Yes Review of Systems Review of Systems Constitutional: no symptoms reported EENTM: No Symptoms Reported Respiratory: No Symptoms Reported Cardiovascular: No Symptoms Reported Gastrointestinal: See HPI Genitourinary: No Symptoms Reported Musculoskeletal: no symptoms reported Skin: no symptoms reported Psychiatric/Neurological: No Symptoms Reported Endocrine: No Symptoms Reported Hematologic/Lymphatic: No Symptoms Reported Past Qxgezwj-Pyrrvh-Ukoxlj Hx Past Med/Social Hx: Reviewed Nursing Past Med/Soc Hx Patient Social History Drug of Choice: EXTENSIVE HX OF DRUG ABUSE/OVERDOSES/EXCESSIVE USE Type Used: Cigarettes Former Smoker, Quit: Mar 26, 1996 2nd Hand Smoke Exposure: No Recent Foreign Travel: No Contact w/Someone Who Travel: No Recent Hopitalizations: No Immunizations Up To Date Tetanus Booster (TDap): Unknown PED Vaccines UTD: Yes Date of Pneumonia Vaccine: Apr 22, 2009 Date of Influenza Vaccine: Nov 20, 2017 Seasonal Allergies Seasonal Allergies: Yes Past Medical History Surgeries: Yes Abdominal, Appendectomy, Bladder Surgery, Bowel Surgery, Cardiac, Coronary Stent, Hysterectomy, Oophorectomy, Orthopedic, Tonsillectomy Respiratory: Yes (O2 AT HS) Pulmonary Embolism, Sleep Apnea, COPD Currently Using CPAP: No Currently Using BIPAP: No Cardiac: Yes (CARDIAC CATH WITH STENTS X 2) Chronic Edema/Swelling, Coronary Artery Disease, Deep Vein Thrombosis, Heart Attack, High Cholesterol, Hypertension Neurological: Yes (COGNITIVE DEFICIT) Vertigo 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 Disorders: No CCIE History: Hysterectomy, Menopausal Genitourinary: Yes (INCONTINENCE) Kidney Infection, Bladder Infection, UTI-Chronic Gastrointestinal: Yes Abdominal Hernia, Gastroesophageal Reflux, Diverticulosis, Esophagitis Musculoskeletal: Yes Osteoporosis, Arthritis, Chronic Back Pain, Fractures Endocrine: Yes Hypothyroidsim HEENT: Yes (FULL DENTURES) Dysphagia Loss of Vision: Denies Hearing Impairment: Denies Cancer: No Psychosocial: Yes (EXTENSIVE HISTORY OF RX ABUSE/OVERDOSES/EXCESSIVE USE--OPIATES AND BENZO'S ) Anxiety, Depression Integumentary: No Blood Disorders: No Adverse Reaction/Blood Tranf: No Family Medical History Family history: Hypertension G8 BROTHER Myocardial infarction 19 MOTHER G8 BROTHER Physical Exam Vital Signs Vital Signs - First Documented 11/06/18 02:47 Temp 36.0 Pulse 54 Resp 18 B/P (MAP) 167/92 (117) Pulse Ox 95 O2 Delivery Room Air Capillary Refill : Height/Weight/BMI Height: 5'2.00" Weight: 163lbs. 0.0oz. 73.774500ta; 0.00 BMI Method:Stated General Appearance: no apparent distress, moderate distress HEENT: PERRL/EOMI, normal ENT inspection, other (mucous membranes dry) Neck: normal inspection Respiratory: lungs clear, normal breath sounds, no respiratory distress, no accessory muscle use Cardiovascular: regular rate, rhythm, no edema, no murmur Gastrointestinal: soft, abnormal bowel sounds (decreased), distended, tenderness (diffuse) Extremities: normal inspection, no pedal edema Neurologic/Psychiatric: ambulatory nurse II-XII nml as tested, no motor/sensory deficits, alert, normal mood/affect, oriented x 3 Skin: normal color, warm/dry Progress/Results/Core Measures Results/Orders Lab Results Laboratory Tests Test 11/06/18 02:55 Range/Units White Blood Count 21.4 H 4.3-11.0 10^3/uL Red Blood Count 5.27 4.35-5.85 10^6/uL Hemoglobin 12.7 11.5-16.0 G/DL Hematocrit 40 35-52 % Mean Corpuscular Volume 75 L 80-99 FL Mean Corpuscular Hemoglobin 24 L 25-34 PG Mean Corpuscular Hemoglobin Concent 32 32-36 G/DL Red Cell Distribution Width 18.6 H 10.0-14.5 % Platelet Count 411 H 130-400 10^3/uL Mean Platelet Volume 10.7 H 7.4-10.4 FL Neutrophils (%) (Auto) 84 H 42-75 % Lymphocytes (%) (Auto) 9 L 12-44 % Monocytes (%) (Auto) 7 0-12 % Eosinophils (%) (Auto) 1 0-10 % Basophils (%) (Auto) 0 0-10 % Neutrophils # (Auto) 17.9 H 1.8-7.8 X 10^3 Lymphocytes # (Auto) 1.8 1.0-4.0 X 10^3 Monocytes # (Auto) 1.4 H 0.0-1.0 X 10^3 Eosinophils # (Auto) 0.1 0.0-0.3 10^3/uL Basophils # (Auto) 0.1 0.0-0.1 10^3/uL Neutrophils % (Manual) 83 % Lymphocytes % (Manual) 13 % Monocytes % (Manual) 4 % Sodium Level 133 L 135-145 MMOL/L Potassium Level 3.4 L 3.6-5.0 MMOL/L Chloride Level 98 98-107 MMOL/L Carbon Dioxide Level 23 21-32 MMOL/L Anion Gap 12 5-14 MMOL/L Blood Urea Nitrogen 22 H 7-18 MG/DL Creatinine 0.77 0.60-1.30 MG/DL Estimat Glomerular Filtration Rate > 60 BUN/Creatinine Ratio 29 Glucose Level 144 H 70-105 MG/DL Calcium Level 10.1 8.5-10.1 MG/DL Corrected Calcium 10.3 H 8.5-10.1 MG/DL Total Bilirubin 0.3 0.1-1.0 MG/DL Aspartate Amino Transf (AST/SGOT) 12 5-34 U/L Alanine Aminotransferase (ALT/SGPT) 14 0-55 U/L Alkaline Phosphatase 104 40-136 U/L Total Protein 6.5 6.4-8.2 GM/DL Albumin 3.8 3.2-4.5 GM/DL Lipase < 4 L 8-78 U/L My Orders Orders - RADHA PAREDES MD Ed Iv/Invasive Line Start (11/06/18 02:50) Cbc With Automated Diff (11/06/18 02:50) Comprehensive Metabolic Panel (11/06/18 02:50) Lipase (11/06/18 02:50) Ua Culture If Indicated (11/06/18 02:50) Fentanyl Injection (Sublimaze Injection (11/06/18 03:00) Ondansetron Injection (Zofran Injectio (11/06/18 03:00) Famotidine Injection (Pepcid Injection) (11/06/18 03:00) Manual Differential (11/06/18 02:55) Ct Abdomen/Pelvis Wo (11/06/18 03:37) Ng/Feeding Tube Insertertion (11/06/18 05:09) Piperacillin Sodium/Tazobactam (Zosyn Vi (11/06/18 05:15) Benzocaine Extension Tube (Hurricaine Ex (11/06/18 05:13) Lorazepam Injection (Ativan Injection) (11/06/18 05:30) Benzocaine Extension Tube (Hurricaine Ex (11/06/18 06:00) Medications Given in ED Current Medications Medications Dose Ordered Sig/Perez Route Start Time Stop Time Status Last Admin Dose Admin Benzocaine 1 ea ONCE ONCE XX 11/06/18 06:00 11/06/18 06:01 DC 11/06/18 05:30 1 EA Famotidine 20 mg ONCE ONCE IVP 11/06/18 03:00 11/06/18 03:01 DC 11/06/18 03:50 20 MG Fentanyl Citrate 50 mcg ONCE ONCE IVP 11/06/18 03:00 11/06/18 03:01 DC 11/06/18 03:50 50 MCG Lorazepam 0.5 mg ONCE ONCE IVP 11/06/18 05:30 11/06/18 05:31 DC 11/06/18 05:30 0.5 MG Ondansetron HCl 8 mg ONCE ONCE IVP 11/06/18 03:00 11/06/18 03:01 DC 11/06/18 03:50 8 MG Piperacillin Sod/ Tazobactam Sod 4.5 gm/Sodium Chloride 100 ml @ 200 mls/hr ONCE ONCE IV 11/06/18 05:15 11/06/18 05:44 DC 11/06/18 05:45 200 MLS/HR Vital Signs/I&O 11/06/18 02:47 Temp 36.0 Pulse 54 Resp 18 B/P (MAP) 167/92 (117) Pulse Ox 95 O2 Delivery Room Air Progress Progress Note #1: Time: 03:41 Progress Note Patient has very poor vascular access. A left EJ IV was eventually established. CT scan is pending. Labs are pending. IV fluids will be initiated. Symptoms are being treated with Zofran, fentanyl, and Pepcid. Bowel obstruction is suspected. Progress Note #2: Time: 05:55 Progress Note Patient's IV access was very difficult. An EJ was eventually established. CT w as performed without contrast. Small bowel obstruction was identified with probable transition point at the right ventral hernia. NG tube was placed with difficulty. Patient required Ativan during placement. Patient was found to have a significant leukocytosis. Zosyn was given empirically. Case was discussed with Dr. Brooks and with Dr. Tipton. Bowel could not be clearly dis tinguished on palpation of the abdomen at the hernia. Therefore I cannot determine if reduction attempts were successful. Patient did have significant relief after decompression of the stomach with NG tube. I discussed CODE STATUS with patient and she elected DO NOT RESUSCITATE status. Diagnostic Imaging Diagonstic Imaging: CT Plain Films/CT/US/NM/MRI: abdomen, pelvis Comments CT abdomen and pelvis viewed by me and stat rad report reviewed. CT revealed small bowel obstruction with possible transition point at the right abdominal hernia. There is a significant amount of stomach content. Departure Communication (Admissions) Time/Spoke to Admitting Phy: 05:10 Dr. Tipton Time/Spoke to Consulting Phy: 05:05 Dr. Brooks Impression Primary Impression: Small bowel obstruction Additional Impressions: Ventral hernia Qualified Codes: K43.6 - Other and unspecified ventral hernia with obstr uction, without gangrene Leukocytosis Qualified Codes: D72.829 - Elevated white blood cell count, unspecified Disposition: ADMITTED INPATIENT Condition: Improved Admissions Decision to Admit Reason: Admit from ER (General) Decision to Admit/Date: Nov 06, 2018 Time/Decision to Admit Time: 05:00 Departure-Patient Inst. Referrals: TORIBIO FOFANA DO (PCP/Family) Primary Care Physician Copy Copies To 1: TORIBIO FOFANA JOSHUA T MD Nov 06, 2018 03:42
[2018-11-06 03:55] LABS: ALANINE AMINOTRANSFERASE 14 U/L (0-55); ALBUMIN 3.8 GM/DL (3.2-4.5); ALKALINE PHOSPHATASE 104 U/L (40-136); BILIRUBIN,TOTAL 0.3 MG/DL (0.1-1.0); BUN/CREATININE RATIO 29; CALCIUM 10.1 MG/DL (8.5-10.1); CARBON DIOXIDE 23 MMOL/L (21-32); CHLORIDE 98 MMOL/L (98-107); CREATININE SERUM 0.77 MG/DL (0.60-1.30); GFR ESTIMATED > 60; GLUCOSE 144 MG/DL (70-105); LIPASE < 4 U/L (8-78); POTASSIUM 3.4 MMOL/L (3.6-5.0); SODIUM 133 MMOL/L (135-145); TOTAL PROTEIN 6.5 GM/DL (6.4-8.2)
[2018-11-06 05:06] LABS: LYMPHOCYTES % (MANUAL) 13 %; MONOCYTES % (MANUAL) 4 %; NEUTROPHILS % (MANUAL) 83 %
[2018-11-06] MEDS ORDERED: HURRICAINE EXT TUBE (BENZOCAINE) ONE (05:13)
[2018-11-06] MEDS ORDERED: PIPERACILLIN SODIUM/TAZOBACTAM 4.5 GM in NS (IVPB) 100 ML IV ONE (05:15)
[2018-11-06] MEDS ORDERED: LORazepam INJ 2 MG/ML (ATIVAN) VIAL IVP ONE (05:30)
[2018-11-06] MEDS ORDERED: HURRICAINE EXT TUBE (BENZOCAINE) XX ONE (06:00)
--- NOTE | 2018-11-06 06:22 | Diagnostic Imaging Report ---
CT ABDOMEN/PELVIS WO TECHNIQUE: Unenhanced CT imaging of the abdomen and pelvis was performed. 2-D reformats are created and submitted for interpretation. Automatic exposure controls were utilized to optimize patient dose. INDICATION: Generalized abdominal discomfort and nausea. COMPARISON: 10/09/2018 FINDINGS: Evaluation of the abdominal viscera is mildly limited without contrast. Lower chest: The lung bases are clear. No pericardial or pleural effusion. Peritoneum: No free intraperitoneal air or fluid. Liver and biliary system: Unenhanced liver is normal. The gallbladder is normal. No biliary duct dilation. Spleen and Pancreas: Spleen is normal. Interstitial fatty atrophy of the pancreas is unchanged. Adrenals: Normal. tract: No renal or ureteral calculi. Prominent extrarenal pelvis on the right with mild asymmetric dilatation of the right ureter. Urinary bladder is decompressed, limiting assessment. Status post hysterectomy. No adnexal mass. GI tract: Stomach is moderately distended with fluid and food debris. Diastases of the rectus abdominis is present and there is a superimposed hernia in the right ryley-aspect of the diastasis ventral to the abdomen. A small bowel loop is herniated through this narrow neck defect, the small bowel is fluid filled and borderline dilated. The remainder of the mid to distal small bowel loops are also fluid filled and borderline dilated. Additionally, there are few decompressed bowel loops in the right upper quadrant. Status post distal colon resection with anastomosis. No dilated loops of colon. Vasculature and Lymph nodes: Normal caliber aorta. No abdominal or pelvic lymphadenopathy. Musculoskeletal: No concerning osseous lesion. Proximal femoral nail with antirotation blade. IMPRESSION: 1. Low-grade partial small bowel obstruction due to short segment of small bowel herniated through a ventral abdominal wall defect at the site of prior hernia repair. 2. No perforation or abscess. 3. Findings are in agreement with the preliminary report. Dictated by: Dictated on workstation # [id number]
--- NOTE | 2018-11-06 06:50 | NUR ---
[facility] admitted to room 425-1, with an admitting diagnosis of SBO , on 11/06/18 from ED via [facility], accompanied by STAFF. [facility] introduced to surroundings, call light, bed controls, phone, TV, temperature control, lights, meal times, smoking policy, visitor policy, side rail policy, bathrooms and showers. Patient Rights given to patient in the handbook.[facility] verbalizes understanding that [facility] is not responsible for the loss or damage to any personal effects or valuables that are kept in the patients posession during their hospitalization.
[2018-11-06 07:35] VITALS: BP 119/77
[2018-11-06] MEDS ORDERED: ONDANSETRON 4 MG/2 ML (SDV) Z0FRAN IVP PRN (07:45)
--- NOTE | 2018-11-06 08:54 | Consultation - Surgery ---
ASHKAN LIM, 11/06/18 0854: History of Present Illness History of Present Illness Patient Consulted On(chris/time) 11/06/18 08:48 Date Seen by Provider: Nov 06, 2018 Time Seen by Provider: 08:32 History of Present Illness General surgery consulted regarding; SBO, hernia, abdominal pain HPI: Pt presented to the ER regarding sharp abdominal pain that began yesterday. She rates it as an 8/10 on the pain scale. The pain is diffuse throughout her entire abdomen, but localized to her belly button. Nothing improves or worsens the pain. Pt denies nausea, but has vomited twice. Also complains of "large BM", which she has had 3 since yesterday. Allergies and Home Medications Allergies Coded Allergies: No Known Drug Allergies (Unverified , 10/31/18) Home Medications Albuterol Sulfate 18 Gm Hfa.aer.ad, 2 PUFF IH Q6H PRN for WHEEZING, (Reported) Aspirin 81 Mg Tablet.dr, 81 MG PO DAILY, (Reported) Clopidogrel Bisulfate 75 Mg Tablet, 75 MG PO DAILY, (Reported) Dicyclomine HCl 10 Mg Capsule, 10 MG PO QID PRN for CRAMPS, (Reported) Duloxetine HCl 60 Mg Capsule.dr, 60 MG PO DAILY, (Reported) Ezetimibe 10 Mg Tablet, 10 MG PO DAILY, (Reported) Fesoterodine Fumarate 4 Mg Tab.sr.24h, 4 MG PO DAILY, (Reported) Fluticasone Propionate 16 Gm [place].susp, 1 SPRAY NS BID PRN for ALLERGIES, (Reported) Levothyroxine Sodium 112 Mcg Tablet, 112 MCG PO DAILY, (Reported) Lorazepam 1 Mg Tablet, 1 MG PO TID PRN for ANXIETY, (Reported) Methylprednisolone 4 Mg Tab.ds.pk, PO UD, (Reported) 6 DAY THEARPY FILLED 11-01-18 Metoprolol Succinate 50 Mg Tab.er.24h, 50 MG PO DAILY, (Reported) Mirabegron 50 Mg Tab.er.24h, 50 MG PO DAILY, (Reported) Multivitamin with Minerals 1 Each Tablet, 1 TAB PO DAILY, (Reported) Nitroglycerin 0.4 Mg Tab.subl, 0.4 MG SL UD PRN for CHEST PAIN, (Reported) Ondansetron 4 Mg Tab.rapdis, 4 MG PO Q8H PRN for NAUSEA/VOMITING-1ST LINE, (Reported) Oseltamivir Phosphate 75 Mg Capsule, 75 MG PO BID, (Reported) FILLED 5 DAY THERAPY 11-01-18 Oxycodone HCl 10 Mg Tablet, 10 MG PO Q4H PRN for PAIN-SEVERE, (Reported) Pregabalin 150 Mg Capsule, 150 MG PO BID, (Reported) Ropinirole HCl 4 Mg Tablet, 8 MG PO 1800, (Reported) TAKES 2 (4MG) TABLETS Sucralfate 1 Gm Tablet, 1 GM PO QID, (Reported) Temazepam 15 Mg Capsule, 30 MG PO HS, (Reported) TAKES 2 (15MG) CAPSULES Patient Home Medication List Home Medication List Reviewed: Yes Past Ppvufgc-Cpkorv-Ioewyb Hx Patient Social History Alcohol Use: Denies Use Recreational Drug Use: No Drug of Choice: EXTENSIVE HX OF DRUG ABUSE/OVERDOSES/EXCESSIVE USE Smoking Status: Former Smoker Former Smoker, Quit: Mar 26, 1996 Type Used: Cigarettes 2nd Hand Smoke Exposure: No Recent Foreign Travel: No Contact w/Someone Who Travel: No Recent Infectious Disease Expo: No Recent Hopitalizations: No Immunizations Up To Date Tetanus Booster (TDap): Unknown PED Vaccines UTD: Yes Date of Pneumonia Vaccine: Apr 22, 2009 Date of Influenza Vaccine: Nov 20, 2017 Seasonal Allergies Seasonal Allergies: Yes Surgeries History of Surgeries: Yes Surgeries: Abdominal (2 hernia repairs), Appendectomy, Bladder Surgery, Bowel Surgery, Cardiac, Coronary Stent, Hysterectomy, Oophorectomy, Orthopedic, Tonsillectomy Respiratory History of Respiratory Disorde: Yes (O2 AT HS) Respiratory Disorders: Pulmonary Embolism, Sleep Apnea, COPD Cardiovascular History of Cardiac Disorders: Yes (CARDIAC CATH WITH STENTS X 2) Cardiac Disorders: Chronic Edema/Swelling, Coronary Artery Disease, Deep Vein Thrombosis, Heart Attack, High Cholesterol, Hypertension Neurological History of Neurological Disord: Yes (COGNITIVE DEFICIT) Neurological Disorders: Vertigo 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 System : No Hx 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 Disorders: No 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, 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 Genitourinary History of Genitourinary Disor: Yes (INCONTINENCE) Genitourinary Disorders: Kidney Infection, Bladder Infection, UTI-Chronic Gastrointestinal History of Gastrointestinal Di: Yes Gastrointestinal Disorders: Abdominal Hernia, Gastroesophageal Reflux, Diverticulosis, Esophagitis Musculoskeletal History of Musculoskeletal Dis: Yes Musculoskeletal Disorders: Osteoporosis, Arthritis, Chronic Back Pain, Fractures Endocrine History of Endocrine Disorders: Yes Endocrine Disorders: Hypothyroidsim HEENT History of HEENT Disorders: Yes (FULL DENTURES) HEENT Disorders: Dysphagia Loss of Vision: Denies Hearing Impairment: Denies Cancer History of Cancer: No Psychosocial History of Psychiatric Problem: Yes (EXTENSIVE HISTORY OF RX ABUSE/OVERDOSES/EXCESSIVE USE--OPIATES AND BENZO'S ) Behavioral Health Disorders: Anxiety, Depression Integumentary History of Skin or Integumenta: No Blood Transfusions History of Blood Disorders: No Adverse Reaction to a Blood Tr: No Family Medical History Significant Family History: Heart Disease (SD in both mother and twin brother), Hypertension (twin brother) Family Medial History: Family history: Hypertension G8 BROTHER Myocardial infarction 19 MOTHER G8 BROTHER Review of Systems-General Constitutional: No chills, No fever EENTM: vision loss (corrected with new glasses), hoarseness; No hearing loss Respiratory: No cough; short of breath (d/t COPD) Cardiovascular: No chest pain; edema Gastrointestinal: abdominal pain (diffuse), dysphagia; No hematemesis, No nausea; vomiting Genitourinary: No dysuria, No frequency : No Musculoskeletal: back pain, joint pain Skin: No lesions, No rash Psychiatric/Neurological: Anxiety, Depressed Other no abnormal bleeding, but does take Plavix daily. Last dose 11/05 Physical Exam-General Problems Physical Exam Vital Signs Vital Signs - First Documented 11/06/18 02:47 Temp 36.0 Pulse 54 Resp 18 B/P (MAP) 167/92 (117) Pulse Ox 95 O2 Delivery Room Air Capillary Refill : Less Than 3 Seconds General Appearance: WD/WN, mild distress Eyes: Bilateral Eye PERRL, Bilateral Eye EOMI HEENT: pharynx normal; No scleral icterus (R), No scleral icterus (L) Neck: non-tender, supple, other (PICC line placed) Respiratory: chest non-tender, no accessory muscle use, wheezing (expiration) Cardiovascular: regular rate, rhythm, no murmur Peripheral Pulses: 2+ Radial Pulses (R), 2+ Radial Pulses (L) Gastrointestinal: soft, distended, tenderness, hernia (umbilical), other (scars from previous surgeries) Extremities: normal inspection, pedal edema (2+ pitting) Neurologic/Psychiatric: alert, normal mood/affect Skin: normal color, warm/dry Lymphatic: no adenopathy (cervical, submental, submandibular, tonsillar, supra/infraclavicular) Data Review Labs Laboratory Tests 11/06/18 02:55: White Blood Count 21.4H, Red Blood Count 5.27, Hemoglobin 12.7, Hematocrit 40, Mean Corpuscular Volume 75L, Mean Corpuscular Hemoglobin 24L, Mean Corpuscular Hemoglobin Concent 32, Red Cell Distribution Width 18.6H, Platelet Count 411H, Mean Platelet Volume 10.7H, Neutrophils (%) (Auto) 84H, Lymphocytes (%) (Auto) 9L, Monocytes (%) (Auto) 7, Eosinophils (%) (Auto) 1, Basophils (%) (Auto) 0, Neutrophils # (Auto) 17.9H, Lymphocytes # (Auto) 1.8, Monocytes # (Auto) 1.4H, Eosinophils # (Auto) 0.1, Basophils # (Auto) 0.1, Neutrophils % (Manual) 83, Lymphocytes % (Manual) 13, Monocytes % (Manual) 4, Sodium Level 133L, Potassium Level 3.4L, Chloride Level 98, Carbon Dioxide Level 23, Anion Gap 12, Blood Urea Nitrogen 22H, Creatinine 0.77, Estimat Glomerular Filtration Rate > 60, BUN/Creatinine Ratio 29, Glucose Level 144H, Calcium Level 10.1, Corrected Calcium 10.3H, Total Bilirubin 0.3, Aspartate Amino Transf (AST/SGOT) 12, Alanine Aminotransferase (ALT/SGPT) 14, Alkaline Phosphatase 104, Total Protein 6.5, Albumin 3.8, Lipase < 4L Assessment/Plan Assessment/Plan Assessment/Plan SBO Umbilical hernia COPD, CAD Hx of 2 hernia repairs, appendectomy, hysterectomy, stent placement Plan to continue NPO. NG tube already placed. IV fluids need started and home medications continued except for Plavix in case of surgery. In need of hernia repair and will schedule for Monday. VALENTÍN BROOKS DO 11/06/18 1425: History of Present Illness History of Present Illness Time Seen by Provider: 11:40 History of Present Illness Pt states pain is better; but is complaining of pain in nose and throat from tube. Nurse states she had "a bunch" of diarrhea starting at 7am. Allergies and Home Medications Allergies Coded Allergies: No Known Drug Allergies (Unverified , 10/31/18) Home Medications Albuterol Sulfate 18 Gm Hfa.aer.ad, 2 PUFF IH Q6H PRN for WHEEZING, (Reported) Aspirin 81 Mg Tablet.dr, 81 MG PO DAILY, (Reported) Clopidogrel Bisulfate 75 Mg Tablet, 75 MG PO DAILY, (Reported) Dicyclomine HCl 10 Mg Capsule, 10 MG PO QID PRN for CRAMPS, (Reported) Duloxetine HCl 60 Mg Capsule.dr, 60 MG PO DAILY, (Reported) Ezetimibe 10 Mg Tablet, 10 MG PO DAILY, (Reported) Fesoterodine Fumarate 4 Mg Tab.sr.24h, 4 MG PO DAILY, (Reported) Fluticasone Propionate 16 Gm [place].susp, 1 SPRAY NS BID PRN for ALLERGIES, (Reported) Levothyroxine Sodium 112 Mcg Tablet, 112 MCG PO DAILY, (Reported) Lorazepam 1 Mg Tablet, 1 MG PO TID PRN for ANXIETY, (Reported) Methylprednisolone 4 Mg Tab.ds.pk, PO UD, (Reported) 6 DAY THEARPY FILLED 11-01-18 Metoprolol Succinate 50 Mg Tab.er.24h, 50 MG PO DAILY, (Reported) Mirabegron 50 Mg Tab.er.24h, 50 MG PO DAILY, (Reported) Multivitamin with Minerals 1 Each Tablet, 1 TAB PO DAILY, (Reported) Nitroglycerin 0.4 Mg Tab.subl, 0.4 MG SL UD PRN for CHEST PAIN, (Reported) Ondansetron 4 Mg Tab.rapdis, 4 MG PO Q8H PRN for NAUSEA/VOMITING-1ST LINE, (Reported) Oseltamivir Phosphate 75 Mg Capsule, 75 MG PO BID, (Reported) FILLED 5 DAY THERAPY 11-01-18 Oxycodone HCl 10 Mg Tablet, 10 MG PO Q4H PRN for PAIN-SEVERE, (Reported) Pregabalin 150 Mg Capsule, 150 MG PO BID, (Reported) Ropinirole HCl 4 Mg Tablet, 8 MG PO 1800, (Reported) TAKES 2 (4MG) TABLETS Sucralfate 1 Gm Tablet, 1 GM PO QID, (Reported) Temazepam 15 Mg Capsule, 30 MG PO HS, (Reported) TAKES 2 (15MG) CAPSULES Past Vtylylg-Yfvrcx-Qwwdzr Hx Family Medical History Family Medial History: Family history: Hypertension G8 BROTHER Myocardial infarction 19 MOTHER G8 BROTHER Physical Exam-General Problems Physical Exam Gastrointestinal: soft, distended (mild), tenderness (minimal diffuse, but more so at incision) Assessment/Plan Assessment/Plan Assessment/Plan PSBO vs. Ileus - most likely this is a Viral Gastroenteritis, no obvious transition point and the entire SB has air/fluid levels. I had them hook NGT back up to suction, she is having BM's and her belly is soft. Will keep her npo, monitor abdomen, IVF, pain control and getting stool studies. I think this will resolve on its own. She is a very poor surgical candidate and it would be better to avoid surgery. All questions answered to her satisfaction. Supervisory-Addendum Brief Verification & Attestation Participated in pt care: history, MDM, physical Personally performed: exam, history, MDM Care discussed with: Medical Student Procedures: n/a Verification and Attestation of Medical Student E/M Service A medical student performed and documented this service in my presence. I reviewed and verified all information documented by the medical student and made modifications to such information, when appropriate. I personally performed the physical exam and medical decision making. Valentín Brooks, Nov 06, 2018,14:25 ASHKAN LIM, Nov 06, 2018 08:54 VALENTÍN BROOKS DO Nov 06, 2018 14:25
[2018-11-06] MEDS: FAMOTIDINE 20MG/2ML IV (PEPCID) IVP SCH (08:58)
[2018-11-06] MEDS: D5 1/2 NS W/KCL 20 MEQ/L 1,000 ML IV SCH ×2 (08:58→15:57)
[2018-11-06 09:10] VITALS: BP 119/77
[2018-11-06] MEDS ORDERED: METH4TAB10 PO (09:39)
[2018-11-06] MEDS ORDERED: OSEL75CA15 PO (09:39)
[2018-11-06] MEDS ORDERED: MIRA50TA PO (10:01)
--- NOTE | 2018-11-06 10:04 | NUR ---
SPOKE WITH THE PATIENT ABOUT HER MEDICATIONS. WHEN I ASKED IF SHE KNOWS WHAT SHE TAKES SHE JUST SAID ITS IN YOUR COMPUTER. SHE STATES SHE HAS BEEN GETTING HER MEDS AT [facility] BUT RECENTLY SWITCHED TO [facility]. THE ONLY THING [facility] HAS FILLED FOR HER WAS THE SUCRALFATE, MEDROL DOSEPAK, AND TAMIFLU RECENTLY, ALL OTHER SCRIPTS THEY HAVE FOR HER ARE ON HOLD AND HAVE NOT BEEN DISPENSED. I REVIEWED THE REST OF HER MEDICATIONS WITH THE EXT MED HX AND THE LIST THAT WAS REPORTED AT HER PREVIOUS ADMISSION. SHE STATES SHE HAS A CAREGIVER THAT COMES IN HER HOME, SHE WAS UNSURE THE NAME OF THE COMPANY BUT STATES IT IS OUT OF [place]. I CALLED [facility] IN [place] AND VERIFIED SHE IS ON THEIR SERVICE HOWEVER THEY DO NOT ASSIST WITH ANY OF HER MEDICATIONS.
--- NOTE | 2018-11-06 10:42 | History & Physical ---
OSITO CHAMBERLAIN Gopal 11/06/18 1042: History of Present Illness History of Present Illness Reason for visit/HPI Patient is a 78yo female who came in to the ER last night for complaints of abdominal pain, abdominal distention and nausea/vomiting. Reports onset of 1800 yesterday (11/05/18). Reports diffuse generalized abdominal pain but notes particular location of pain in the RLQ describing it as continuous and sharp. Rated as a 8/10. Reports recent history of constipation with no BM in the past 4 days. Reports recent onset of diarrhea this am with a total of 3 watery stools this am. Date of Admission Nov 06, 2018 at 05:12 Date Seen by a Provider: Nov 06, 2018 Time Seen by a Provider: 09:15 I consulted on this patient on 11/06/18 10:34 Admitting Physician Eliud Brewer DO Consult General Surgery Allergies and Home Medications Allergies Coded Allergies: No Known Drug Allergies (Unverified , 10/31/18) Home Medications Albuterol Sulfate 18 Gm Hfa.aer.ad, 2 PUFF IH Q6H PRN for WHEEZING, (Reported) Aspirin 81 Mg Tablet.dr, 81 MG PO DAILY, (Reported) Clopidogrel Bisulfate 75 Mg Tablet, 75 MG PO DAILY, (Reported) Dicyclomine HCl 10 Mg Capsule, 10 MG PO QID PRN for CRAMPS, (Reported) Duloxetine HCl 60 Mg Capsule.dr, 60 MG PO DAILY, (Reported) Ezetimibe 10 Mg Tablet, 10 MG PO DAILY, (Reported) Fesoterodine Fumarate 4 Mg Tab.sr.24h, 4 MG PO DAILY, (Reported) Fluticasone Propionate 16 Gm [place].susp, 1 SPRAY NS BID PRN for ALLERGIES, (Reported) Levothyroxine Sodium 112 Mcg Tablet, 112 MCG PO DAILY, (Reported) Lorazepam 1 Mg Tablet, 1 MG PO TID PRN for ANXIETY, (Reported) Methylprednisolone 4 Mg Tab.ds.pk, PO UD, (Reported) 6 DAY THEARPY FILLED 11-01-18 Metoprolol Succinate 50 Mg Tab.er.24h, 50 MG PO DAILY, (Reported) Mirabegron 50 Mg Tab.er.24h, 50 MG PO DAILY, (Reported) Multivitamin with Minerals 1 Each Tablet, 1 TAB PO DAILY, (Reported) Nitroglycerin 0.4 Mg Tab.subl, 0.4 MG SL UD PRN for CHEST PAIN, (Reported) Ondansetron 4 Mg Tab.rapdis, 4 MG PO Q8H PRN for NAUSEA/VOMITING-1ST LINE, (Reported) Oseltamivir Phosphate 75 Mg Capsule, 75 MG PO BID, (Reported) FILLED 5 DAY THERAPY 11-01-18 Oxycodone HCl 10 Mg Tablet, 10 MG PO Q4H PRN for PAIN-SEVERE, (Reported) Pregabalin 150 Mg Capsule, 150 MG PO BID, (Reported) Ropinirole HCl 4 Mg Tablet, 8 MG PO 1800, (Reported) TAKES 2 (4MG) TABLETS Sucralfate 1 Gm Tablet, 1 GM PO QID, (Reported) Temazepam 15 Mg Capsule, 30 MG PO HS, (Reported) TAKES 2 (15MG) CAPSULES Patient Home Medication List Home Medication List Reviewed: Yes Past Ephnfhh-Xvnerd-Ywrkrt Hx Patient Social History Marrital Status: single Employed/Student: retired Alcohol Use: Denies Use Recreational Drug Use: No Drug of Choice: EXTENSIVE HX OF DRUG ABUSE/OVERDOSES/EXCESSIVE USE Smoking Status: Former Smoker Former Smoker, Quit: Mar 26, 1996 Type Used: Cigarettes 2nd Hand Smoke Exposure: No Recent Foreign Travel: No Contact w/other who traveled: No Recent Hopitalizations: No Recent Infectious Disease Expo: No Social History Reports living at home alone. Denies ETOH or illicit drug use. Reports previous history of smoking. Immunizations Up To Date Tetanus Booster (TDap): Unknown Pediatric: Yes Date of Pneumonia Vaccine: Apr 22, 2009 Date of Influenza Vaccine: Nov 20, 2017 Seasonal Allergies Seasonal Allergies: Yes Surgeries Yes Abdominal (2 hernia repairs), Appendectomy, Bladder Surgery, Bowel Surgery, Cardiac, Coronary Stent, Hysterectomy, Oophorectomy, Orthopedic, Tonsillectomy Respiratory Yes (O2 AT HS) Asthma, COPD, Pneumonia Currently Using CPAP: No Currently Using BIPAP: No Cardiovascular Yes (CARDIAC CATH WITH STENTS X 2) Chronic Edema/Swelling, Coronary Artery Disease, Deep Vein Thrombosis, Heart Attack, High Cholesterol, Hypertension Neurological Yes (COGNITIVE DEFICIT) Vertigo 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 System : No Hx 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 Disorders: 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, 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 Genitourinary Yes (INCONTINENCE) Kidney Infection, Bladder Infection, UTI-Chronic Gastrointestinal Yes Abdominal Hernia, Gastroesophageal Reflux, Diverticulosis, Esophagitis Musculoskeletal Yes Osteoporosis, Arthritis, Chronic Back Pain, Fractures Endocrine History of Endocrine Disorders: Yes Endocrine Disorders: Hypothyroidsim HEENT History of HEENT Disorders: Yes (FULL DENTURES) HEENT Disorders: Dysphagia Loss of Vision: Denies Hearing Impairment: Denies Cancer No Psychosocial History of Psychiatric Problem: Yes (EXTENSIVE HISTORY OF RX ABUSE/OVERDOSES/EXCESSIVE USE--OPIATES AND BENZO'S ) Behavioral Health Disorders: Anxiety, Depression Integumentary History of Skin or Integumenta: No Blood Transfusions History of Blood Disorders: No Adverse Reaction to a Blood Tr: No Family Medical History Significant Family History: Heart Disease (SD in both mother and twin brother), Hypertension (twin brother) Family Hx: Family history: Hypertension G8 BROTHER Myocardial infarction 19 MOTHER G8 BROTHER Review of Systems Constitutional: No chills, No fever, No weight loss EENTM: no symptoms reported Respiratory: No cough, No short of breath Cardiovascular: No chest pain, No syncope Gastrointestinal: RLQ, abdominal pain (RLQ), constipation, diarrhea; No dysphagia, No hematemesis, No melena; nausea, vomiting Genitourinary: No decreased output, No dysuria, No hematuria : No Control/STD Prophylaxis: None Musculoskeletal: no symptoms reported Skin: no symptoms reported Psychiatric/Neurological: No Symptoms Reported Physical Exam Vital Signs Vital Signs - First Documented 11/06/18 02:47 Temp 36.0 Pulse 54 Resp 18 B/P (MAP) 167/92 (117) Pulse Ox 95 O2 Delivery Room Air Capillary Refill : Less Than 3 Seconds Height, Weight, BMI Height: 5'2.00" Weight: 163lbs. 0.0oz. 73.477451ir; 29.30 BMI Method:Stated General Appearance: No Apparent Distress, WD/WN Eyes: Bilateral Eye Normal Inspection, Bilateral Eye PERRL HEENT: PERRL/EOMI, TMs Normal Neck: Full Range of Motion, Non Tender, Supple Respiratory: Lungs Clear, Normal Breath Sounds, No Accessory Muscle Use, No Respiratory Distress Cardiovascular: No Gallop, No JVD, No Murmur, Normal Peripheral Pulses, Bradycardia Gastrointestinal: Normal Bowel Sounds, Soft, Distended, Hernia, Tenderness Back: Normal Inspection Extremity: Normal Capillary Refill, No Calf Tenderness Neurologic/Psychiatric: Alert, Oriented x3, Normal Mood/Affect Skin: Normal Color, Warm/Dry Lymphatic: No Adenopathy Assessment/Plan Assessment and Plan Problems: (1) Small bowel obstruction Onset Date: ~ 11/05/2018 Status: Acute Assessment & Plan: NPO. Fluid Resuscitation CBC and BMP lab monitoring Surgical consult. Hernia repair planned for Monday. (2) Ventral hernia Status: Chronic Qualifiers: Qualified Codes: K43.6 - Other and unspecified ventral hernia with obstruction, without gangrene Assessment & Plan: Surgical Consult with hernia repair planned for Monday. (3) Leukocytosis Onset Date: ~ 10/2018 Status: Acute Qualifiers: Qualified Codes: D72.829 - Elevated white blood cell count, unspecified Assessment & Plan: Continue empirical prophylactic IV antibiotic therapy with Zosyn for Leukocytosis from unspecified source. Stool Culture ordered. Blood Cultures pending. (4) Nausea vomiting and diarrhea Onset Date: ~ 11/05/2018 Status: Acute Assessment & Plan: Fluid resuscitation/rehydration therapy with 1/2NS 5% Dextrose w/20mEq K+ at 125ml/hr. Zofran PRN every 4hrs for N/V. Stool culture to rule-out cause of diarrhea Admission Diagnosis Partial Small Bowel Obstruction Admission Status: Inpatient Order (span 2 midnights) Reason for Inpatient Admission: Surgical hernia repair planned for monday. Clinical Quality Measures DVT/VTE Risk/Contraindication: VTE Addressed: Yes VTE Present on Admission: No Risk Factor Score Per Nursin RFS Level Per Nursing on Admit: 4+=Very High Other: Intermittent Pneumatic Compression Device DVT/VTE Prophylaxis Comfirm.Dx Therapy overlap <5days: Scheduled for Surgery IKE FRANK MD 11/06/18 1145: Allergies and Home Medications Allergies Coded Allergies: No Known Drug Allergies (Unverified , 10/31/18) Home Medications Albuterol Sulfate 18 Gm Hfa.aer.ad, 2 PUFF IH Q6H PRN for WHEEZING, (Reported) Aspirin 81 Mg Tablet.dr, 81 MG PO DAILY, (Reported) Clopidogrel Bisulfate 75 Mg Tablet, 75 MG PO DAILY, (Reported) Dicyclomine HCl 10 Mg Capsule, 10 MG PO QID PRN for CRAMPS, (Reported) Duloxetine HCl 60 Mg Capsule.dr, 60 MG PO DAILY, (Reported) Ezetimibe 10 Mg Tablet, 10 MG PO DAILY, (Reported) Fesoterodine Fumarate 4 Mg Tab.sr.24h, 4 MG PO DAILY, (Reported) Fluticasone Propionate 16 Gm [place].susp, 1 SPRAY NS BID PRN for ALLERGIES, (Reported) Levothyroxine Sodium 112 Mcg Tablet, 112 MCG PO DAILY, (Reported) Lorazepam 1 Mg Tablet, 1 MG PO TID PRN for ANXIETY, (Reported) Methylprednisolone 4 Mg Tab.ds.pk, PO UD, (Reported) 6 DAY THEARPY FILLED 11-01-18 Metoprolol Succinate 50 Mg Tab.er.24h, 50 MG PO DAILY, (Reported) Mirabegron 50 Mg Tab.er.24h, 50 MG PO DAILY, (Reported) Multivitamin with Minerals 1 Each Tablet, 1 TAB PO DAILY, (Reported) Nitroglycerin 0.4 Mg Tab.subl, 0.4 MG SL UD PRN for CHEST PAIN, (Reported) Ondansetron 4 Mg Tab.rapdis, 4 MG PO Q8H PRN for NAUSEA/VOMITING-1ST LINE, (Reported) Oseltamivir Phosphate 75 Mg Capsule, 75 MG PO BID, (Reported) FILLED 5 DAY THERAPY 11-01-18 Oxycodone HCl 10 Mg Tablet, 10 MG PO Q4H PRN for PAIN-SEVERE, (Reported) Pregabalin 150 Mg Capsule, 150 MG PO BID, (Reported) Ropinirole HCl 4 Mg Tablet, 8 MG PO 1800, (Reported) TAKES 2 (4MG) TABLETS Sucralfate 1 Gm Tablet, 1 GM PO QID, (Reported) Temazepam 15 Mg Capsule, 30 MG PO HS, (Reported) TAKES 2 (15MG) CAPSULES Past Jfvecir-Oinrhu-Snbgog Hx Family Medical History Family Hx: Family history: Hypertension G8 BROTHER Myocardial infarction 19 MOTHER G8 BROTHER Review of Systems Skin: no symptoms reported Assessment/Plan Assessment and Plan Problems: (1) Small bowel obstruction Onset Date: ~ 11/05/2018 Status: Acute Assessment & Plan: -CT Abd consistent with partial SBO at ventral hernia site -NPO. -IV fluids ordered -NG in place, clamped -Monitor CBC and BMP daily -Surgery consulted (2) Ventral hernia Status: Chronic Qualifiers: Qualified Codes: K43.6 - Other and unspecified ventral hernia with obstruction, without gangrene Assessment & Plan: -Surgery consulted (3) Leukocytosis Onset Date: ~ 10/2018 Status: Acute Qualifiers: Qualified Codes: D72.829 - Elevated white blood cell count, unspecified Assessment & Plan: -Started on Zosyn -Stool culture ordered -Blood cultures pending (4) Nausea vomiting and diarrhea Onset Date: ~ 11/05/2018 Status: Acute Assessment & Plan: -IV fluids -Antiemetics ordered Admission Diagnosis Admission Status: Inpatient Order (span 2 midnights) Reason for Inpatient Admission: Ventral hernia Hypokalemia Supervisory-Addendum Brief Verification & Attestation Participated in pt care: history, physical Personally performed: exam, history, supervision of care Care discussed with: other (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 I reviewed and verified all information documented by the medical student and made modifications to such information, when appropriate. I personally performed the physical exam and medical decision making. Ike Frank, Nov 06, 2018,11:571 OSITO CHAMBERLAIN I Nov 06, 2018 10:42 IKE FRANK MD Nov 06, 2018 11:45
[2018-11-06] MEDS ORDERED: PIPERACILLIN/TAZO 4.5 GM/NS 100 ML IV SCH ×2 (12:00)
[2018-11-06] MEDS: ENOXAPARIN 40 MG/0.4 ML (LOVENOX) SYR SC SCH (12:33)
[2018-11-06 16:36] VITALS: BP 135/65
[2018-11-06] MEDS ORDERED: CHLORASEPTIC PO PRN (16:45)
[2018-11-06] MEDS ORDERED: ACETAMINOPHEN 325 MG TABLET PO PRN (16:45)
[2018-11-06] MEDS ORDERED: [UNRECOGNIZED DRUG - OTHER] PO PRN (16:45)
[2018-11-06] MEDS ORDERED: LORazepam 0.5 MG (ATIVAN) TABLET ONE (16:51)
[2018-11-06] MEDS ORDERED: CHLORASEPTIC MC PRN ×2 (17:30)
[2018-11-06] MEDS ORDERED: VISCOUS LIDOCAINE MC PRN ×2 (17:30)
[2018-11-06] MEDS: rOPINIRole 5 MG TAB (REQUIP) PO SCH (18:19)
[2018-11-06] MEDS: rOPINIRole 1 MG (REQUIP) TABLET PO SCH (18:19)
[2018-11-06 19:24] VITALS: BP 141/65
[2018-11-06] MEDS: PREGABALIN 150 MG (LYRICA) CAPSULE PO SCH (20:06)
[2018-11-06] MEDS: LORazepam 1 MG (ATIVAN) TAB PO PRN (20:12)
[2018-11-07] VITALS: BP 132/64
[2018-11-07] MEDS: D5 1/2 NS W/KCL 20 MEQ/L 1,000 ML IV SCH ×4 (00:16→23:45)
[2018-11-07 04:00] VITALS: BP 149/70
[2018-11-07] MEDS: LEVOTHYROXINE 112 MCG (LEVOTHROID) TAB PO SCH (06:02)
[2018-11-07 06:43] LABS: BASOPHILS % (AUTO) 0 % (0-10); EOSINOPHILS # (AUTO) 0.3 10^3/uL (0.0-0.3); EOSINOPHILS % (AUTO) 2 % (0-10); HEMATOCRIT 36 % (35-52); HEMOGLOBIN 11.2 G/DL (11.5-16.0); LYMPHOCYTES # (AUTO) 2.3 X 10^3 (1.0-4.0); LYMPHOCYTES % (AUTO) 17 % (12-44); MEAN CORPUSCULAR HEMOGLOBIN 24 PG (25-34); MEAN CORPUSCULAR HGB CONC 31 G/DL (32-36); MEAN CORPUSCULAR VOLUME 78 FL (80-99); MONOCYTES # (AUTO) 1.1 X 10^3 (0.0-1.0); MONOCYTES % (AUTO) 8 % (0-12); NEUTROPHILS # (AUTO) 9.6 X 10^3 (1.8-7.8); NEUTROPHILS % (AUTO) 72 % (42-75); PLATELET COUNT 305 10^3/uL (130-400); WHITE BLOOD COUNT 13.3 10^3/uL (4.3-11.0)
[2018-11-07 06:59] LABS: BUN/CREATININE RATIO 16; CALCIUM 8.2 MG/DL (8.5-10.1); CARBON DIOXIDE 21 MMOL/L (21-32); CHLORIDE 104 MMOL/L (98-107); CREATININE SERUM 0.68 MG/DL (0.60-1.30); GFR ESTIMATED > 60; GLUCOSE 97 MG/DL (70-105); MAGNESIUM 1.8 MG/DL (1.6-2.4); SODIUM 130 MMOL/L (135-145)
[2018-11-07 08:00] VITALS: BP 144/69
[2018-11-07] MEDS: DULoxetine 30 MG (CYMBALTA) CAP PO SCH (09:45)
[2018-11-07] MEDS: meTOproloL SUCCINATE 50 MG (TOPROL XL) TAB PO SCH (09:45)
[2018-11-07] MEDS: PREGABALIN 150 MG (LYRICA) CAPSULE PO SCH ×2 (09:45→20:34)
[2018-11-07] MEDS: CLOPIDOGREL 75 MG (PLAVIX) TABLET PO SCH (09:45)
[2018-11-07] MEDS: FAMOTIDINE 20MG/2ML IV (PEPCID) IVP SCH (09:45)
[2018-11-07] MEDS: ASPIRIN E.C. 81 MG (ECOTRIN) TAB PO SCH (09:45)
--- NOTE | 2018-11-07 09:51 | NUR ---
Pt is [employer] and currently NPO. Field Instructor offered prayer and blessing.
[2018-11-07] MEDS: LORazepam 1 MG (ATIVAN) TAB PO PRN ×2 (11:00→20:34)
[2018-11-07] MEDS: ENOXAPARIN 40 MG/0.4 ML (LOVENOX) SYR SC SCH (12:50)
--- NOTE | 2018-11-07 14:15 | Occupational Therapy Eval ---
OT Evaluation-General/PLF Medical Diagnosis Admission Date Nov 06, 2018 at 05:12 Medical Diagnosis: abdominal pain, weakness Onset Date: Nov 06, 2018 Therapy Diagnosis Therapy Diagnosis: decreased ADL and functional mobility Height/Weight Height (Feet): 5 Height (Inches): 2.00 Weight (Pounds): 163 Weight (Ounces): 0.0 Precautions Precautions/Isolations: Contact Isolation, Fall Prevention Safety Interventions: None Weight Bear Status Weight Bearing Restriction: Weight Bearing/Tolerated Referral Physician: Liv Galvez MD Referral Reason: Activity Tolerance, Self Care, Evaluation/Treatment, Strengthening/ROM Medical History Pertinent Medical History: Arthritis, CAD, COPD, GERD, HTN, Hypothroidism Current History Per H&P: "Patient is a 78yo female who came in to the ER last night for complaints of abdominal pain, abdominal distention and nausea/vomiting. Reports onset of 1800 yesterday (11/05/18). Reports diffuse generalized abdominal pain but notes particular location of pain in the RLQ describing it as continuous and sharp. Rated as a 8/10. Reports recent history of constipation with no BM in the past 4 days. Reports recent onset of diarrhea this am with a total of 3 watery stools this am" Reviewed History: Yes Social History Home: Single Level Current Living Status: Alone Entry Into Home: Stairs Without Railing Steps Into Home: 1 Steps Inside Home: 0 ADL-Prior Level of Function Therapy Code Descriptions/Definitions Functional [place] Measure: 0=Not Assessed/NA 4=Minimal Assistance 1=Total Assistance 5=Supervision or Setup 2=Maximal Assistance 6=Modified [place] 3=Moderate Assistance 7=Complete [place] Therapy Quality Codes: 6 Independent with activity with or without an assistive device 5 Patient requires set up or clean up by helper. Patient completes activity by themselves 4 Supervision or touching assist (CGA). [place] provide cues , steadying assist 3 The helper provides less than half the effort to complete the activity 2 The helper provides more than half the effort to complete the activity 1 Dependent. The helper does all the effort to complete an activity 7 Patient refused to complete or attempt activity 9 The patient did not perform the activity before the current illness or injury 88 Not attempted due to Medical conditions or safety concerns Functional Abilities and Goals: Independent: Patient completed the activities by him/herself, with or without an assistive device, with no assistance from a helper. Needed Some Help: Patient needed partial assistance from another person to complete activities. Dependent: A helper completed the activities for the patient. Unknown: Not Applicable: Self Care: Needed Some Help Functional Cognition: Independent DME/Equipment: Bath Chair, Grab Bars DME/Equipment Comments Pt utilized FWW for functional mobility, has walk in shower with shower chair and grab bars by toilet and in shower. Pt has caregiver support / per pt. Caregivers assist with LB dressing tasks, SBA for showering, and assist in meal prep/ IADLs. Occupation: retired Drive Self: No Leisure Interests: reading, TV OT Current Status Subjective Pt seen supine in bed, alert and orientedx4. Pt agreeable to OT eval/ treat. Mental Status/Objective Patient Orientation: Person, Place, Time, Situation, Normal For Age Attachments: IV Current Glasses/Contacts: Yes Hearing Aids: No Dentures/Partials: No Hand Dominance: Right Upper Extremity ROM WFL Upper Extremity Coordination WFL Upper Extremity Sensation WFL, pt states momentary paresthesia of L UE but not consistent Upper Extremity Strength BUE shoulder flexion/ abduction, elbow flexion WFL= 4-/5 ADL-Treatment Therapy Code Descriptions/Definitions Functional [place] Measure: 0=Not Assessed/NA 4=Minimal Assistance 1=Total Assistance 5=Supervision or Setup 2=Maximal Assistance 6=Modified [place] 3=Moderate Assistance 7=Complete [place] Therapy Quality Codes: 6 Independent with activity with or without an assistive device 5 Patient requires set up or clean up by helper. Patient completes activity by themselves 4 Supervision or touching assist (CGA). [place] provide cues , steadying assist 3 The helper provides less than half the effort to complete the activity 2 The helper provides more than half the effort to complete the activity 1 Dependent. The helper does all the effort to complete an activity 7 Patient refused to complete or attempt activity 9 The patient did not perform the activity before the current illness or injury 88 Not attempted due to Medical conditions or safety concerns Eating (FIM): 5 (pt completes eating ice chips with s/u, some spillage from cup resulting in clean-up assist.) Grooming (FIM): 5 (s/u for hair grooming. Pt completes in chair.) Lower Body Dressing (FIM): 3 (Pt requires assist with R sock, able to complete L sock donning. Pt requires SBA/ CGA during breif donning, pt able to thread BLE through breif with increased time and SBA for safety.) Toileting (FIM): 4 (CGA during stance for hygiene) Transfers (B, C, W/C) (FIM): 4 (CGA) Toilet/Commode Transfer (FIM): 4 (CGA) Other Treatments Pt states need for urination, able to complete bed mobility with cueing and SBA. Pt sit to stand with FWW with CGA, utilized bedside commode. Pt states she fell and broke R femur, resulting in difficulty with LB dressing on R side. Pt educated on use of sock aide and fishing vessel operator/ dressing stick for socks/ LB dressing. Pt states understanding as she has used them in the past but did not use them at home due to caregiver assist when needed. Pt transfers to recliner, left with all needs met and call light in reach. Education OT Patient Education: Correct positioning, Energy conservation, Modified ADL techniques, Progress toward Goal/Update tx plan, Purpose of tx/functional activities, Rehab process, Safety issues, Transfer techniques Teaching Recipient: Patient, Family Teaching Methods: Demonstration, Discussion Response to Teaching: Verbalize Understanding, Return Demonstration OT Short Term Goals Short Term Goals Grooming(FIM): 6 Lower Body Dressing(FIM): 4 1=Demonstrate adherence to instructed precautions during ADL tasks. 2=Patient will verbalize/demonstrate understanding of assistive devices/modifications for ADL. 3=Patient will improve strength/tolerance for activity to enable patient to perform ADL's. OT Claims Attorney Goals Retirement Goals Eating (FIM): 6 Grooming(FIM): 7 Bathing(FIM): 5 Upper Body Dressing(FIM): 6 Lower Body Dressing(FIM): 4 Toileting(FIM): 5 Transfers (B,C,W/C) (FIM): 6 Toilet/Commode Transfer(FIM): 6 Tub Transfer(FIM): 5 Shower Transfer(FIM): 5 Additional Goals: 1-Demonstrate ADL Tasks, 2-Verbalize Understanding, 3- ImproveStrength/Jose 1=Demonstrate adherence to instructed precautions during ADL tasks. 2=Patient will verbalize/demonstrate understanding of assistive devices/modifications for ADL. 3=Patient will improve strength/tolerance for activity to enable patient to perform ADL's. OT Education/Plan Problem List/Assessment Assessment: Decreased Activ Tolerance, Dependent Transfers, Impaired Bed Mobility, Impaired I ADL's, Impaired Self-Care Skills Discharge Recommendations Plan/Recommendations: Continue POC Therapy Discharge Recommendati: Scheduled Assistance Equpiment Recommendations-D/C: Sock Aide, Dressing Stick Treatment Plan/Plan of Care Treatment,Training & Education: Yes Patient would benefit from OT for education, treatment and training to promote independence in ADL's, mobility, safety and/or upper extremity function for ADL's. Plan of Care: ADL Retraining, Caregiver Training, Functional Mobility, UE Funct Exercise/Act Frequency: 5 times per week Estimated Hrs Per Day: .25 hour per day Agreement: Yes Rehab Potential: Fair Time/GCodes Start Time: 13:28 Stop Time: 13:50 Total Time Billed (hr/min): 22 Billed Treatment Time 1 EVM (22) SHANE TRUJILLO OTR Nov 07, 2018 14:15
--- NOTE | 2018-11-07 14:41 | Progress Note - Surgery ---
JIMMY CASTRO,MED STUDENT 11/07/18 1441: Subjective Date Seen by a Provider: Nov 07, 2018 Time Seen by a Provider: 14:05 Subjective/Events-last exam Pt complains of pain originating from NG tube and expressed her desire to have it removed. Pts external jugular IV access site is blocked and the alarm is causing her distress as well. States she is still experiencing some abdominal pain in the lower right quadrant and states it feels constricted. She has not had a bowel movement since admission but says without her laxative she is unable to have a bowel movement. Pt is hungry and wants to advance her diet. Otherwise, no new complaints. No family at bedside. Objective Exam Vital Signs Date Time Temp Pulse Resp B/P (MAP) Pulse Ox O2 Delivery O2 Flow Rate FiO2 11/07/18 08:00 Room Air 11/07/18 08:00 37.2 68 18 144/69 (94) 92 Room Air 11/07/18 04:00 37.0 88 20 149/70 (96) 92 Room Air 11/07/18 00:00 36.6 79 18 132/64 (86) 94 Room Air 11/06/18 20:00 Room Air 11/06/18 19:24 37.8 79 18 141/65 (90) 94 Room Air 11/06/18 16:36 36.6 67 20 135/65 (88) 97 Room Air I & O 11/07/18 07:00 Intake Total 100 ml Output Total 1000 ml Balance -900 ml Capillary Refill : Less Than 3 Seconds General Appearance: No Apparent Distress, WD/WN HEENT: PERRL/EOMI, Other (NG tube in place. ) Neck: Tender Lateral, Other (EJ IV access in place ) Respiratory: No Accessory Muscle Use, No Respiratory Distress Gastrointestinal: soft, distended (mild), tenderness (minimal diffuse, more tender midline at umbilicus and RLQ ) Extremity: Normal Capillary Refill, No Calf Tenderness Neurologic/Psychiatric: Alert, Oriented x3, Normal Mood/Affect Skin: Normal Color, Warm/Dry Lymphatic: No Adenopathy Results Lab Laboratory Tests 11/07/18 06:10: White Blood Count 13.3H, Red Blood Count 4.60, Hemoglobin 11.2L, Hematocrit 36, Mean Corpuscular Volume 78L, Mean Corpuscular Hemoglobin 24L, Mean Corpuscular Hemoglobin Concent 31L, Red Cell Distribution Width 19.0H, Platelet Count 305, Mean Platelet Volume 11.0H, Neutrophils (%) (Auto) 72, Lymphocytes (%) (Auto) 17, Monocytes (%) (Auto) 8, Eosinophils (%) (Auto) 2, Basophils (%) (Auto) 0, Neutrophils # (Auto) 9.6H, Lymphocytes # (Auto) 2.3, Monocytes # (Auto) 1.1H, Eosinophils # (Auto) 0.3, Basophils # (Auto) 0.0, Sodium Level 130L, Potassium Level 4.0, Chloride Level 104, Carbon Dioxide Level 21, Anion Gap 5, Blood Urea Nitrogen 11, Creatinine 0.68, Estimat Glomerular Filtration Rate > 60, BUN/Creatinine Ratio 16, Glucose Level 97, Calcium Level 8.2L, Magnesium Level 1.8 Assessment/Plan Assessment/Plan Assessment/Plan PSBO Ileus Remove NG suction and change IV access site and continue IVF, pain control. Advance diet to clear liquids and administer miralax, and monitor for BM. Not a surgical candidate at this time. Will continue to monitor. Clinical Quality Measures DVT/VTE Risk/Contraindication: VTE Addressed: Yes VTE Present on Admission: No Risk Factor Score Per Nursin RFS Level Per Nursing on Admit: 4+=Very High Other: Intermittent Pneumatic Compression Device DVT/VTE Prophylaxis Comfirm.Dx Therapy overlap <5days: Scheduled for Surgery VALENTÍN BROOKS DO 11/07/18 1443: Subjective Time Seen by a Provider: 14:24 Subjective/Events-last exam Pt states she is passing gas. Supervisory-Addendum Brief Verification & Attestation Participated in pt care: history, MDM, physical Personally performed: exam, history, MDM Care discussed with: Medical Student Procedures: n/a Verification and Attestation of Medical Student E/M Service A medical student performed and documented this service in my presence. I reviewed and verified all information documented by the medical student and made modifications to such information, when appropriate. I personally performed the physical exam and medical decision making. Valentín Brooks, Nov 07, 2018,14:43 JIMMY CASTRO,MED STUDENT Nov 07, 2018 14:41 VALENTÍN BROOKS DO Nov 07, 2018 14:43
--- NOTE | 2018-11-07 15:14 | Physical Therapy Evaluation ---
PT Evaluation-General Medical Diagnosis Admission Date Nov 06, 2018 at 05:12 Medical Diagnosis: abdominal pain, weakness Onset Date: Nov 06, 2018 Therapy Diagnosis Therapy Diagnosis: impaired mobility, strength, endurance Height/Weight Height (Feet): 5 Height (Inches): 2.00 Weight (Pounds): 163 Weight (Ounces): 0.0 Precautions Precautions/Isolations: Contact Isolation, Fall Prevention Weight Bear Status Right Lower Extremity: Right Weight Bearing/Tolerated Left Lower Extremity: Left Weight Bearing/Tolerated Referral Physician: Liv Galvez MD Reason for Referral: Evaluation/Treatment Medical History Pertinent Medical History: Arthritis, CAD, COPD, GERD, HTN, Hypothroidism Additional Medical History Past Medical History Surgeries: Yes Abdominal, Appendectomy, Bladder Surgery, Bowel Surgery, Cardiac, Coronary Stent, Hysterectomy, Oophorectomy, Orthopedic, Tonsillectomy Respiratory: Yes (O2 AT HS) Pulmonary Embolism, Sleep Apnea, COPD Currently Using CPAP: No Currently Using BIPAP: No Cardiac: Yes (CARDIAC CATH WITH STENTS X 2) Chronic Edema/Swelling, Coronary Artery Disease, Deep Vein Thrombosis, Heart Attack, High Cholesterol, Hypertension Neurological: Yes (COGNITIVE DEFICIT) Vertigo 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 Disorders: No BURLAP SPREADER History: Hysterectomy, Menopausal Genitourinary: Yes (INCONTINENCE) Kidney Infection, Bladder Infection, UTI-Chronic Gastrointestinal: Yes Abdominal Hernia, Gastroesophageal Reflux, Diverticulosis, Esophagitis Musculoskeletal: Yes Osteoporosis, Arthritis, Chronic Back Pain, Fractures Endocrine: Yes Hypothyroidsim HEENT: Yes (FULL DENTURES) Dysphagia Loss of Vision: Denies Hearing Impairment: Denies Cancer: No Psychosocial: Yes (EXTENSIVE HISTORY OF RX ABUSE/OVERDOSES/EXCESSIVE USE--OPIATES AND BENZO'S ) Anxiety, Depression Integumentary: No Blood Disorders: No Adverse Reaction/Blood Tranf: No Reviewed History: Yes Social History Home: Single Level Current Living Status: Alone Entry Into Home: Stairs Without Railing PT Steps Into Home: 1 PT Steps Inside Home: 0 Prior/Core FIM Prior Level of Function Therapy Code Descriptions/Definitions Functional [place] Measure: 0=Not Assessed/NA 4=Minimal Assistance 1=Total Assistance 5=Supervision or Setup 2=Maximal Assistance 6=Modified [place] 3=Moderate Assistance 7=Complete [place] Therapy Quality Codes: 6 Independent with activity with or without an assistive device 5 Patient requires set up or clean up by helper. Patient completes activity by themselves 4 Supervision or touching assist (CGA). [place] provide cues , steadying assist 3 The helper provides less than half the effort to complete the activity 2 The helper provides more than half the effort to complete the activity 1 Dependent. The helper does all the effort to complete an activity 7 Patient refused to complete or attempt activity 9 The patient did not perform the activity before the current illness or injury 88 Not attempted due to Medical conditions or safety concerns Functional Abilities and Goals: Independent: Patient completed the activities by him/herself, with or without an assistive device, with no assistance from a helper. Needed Some Help: Patient needed partial assistance from another person to complete activities. Dependent: A helper completed the activities for the patient. Unknown: Not Applicable: Bed Mobility: 6 Transfers (B,C,W/C) (FIM): 6 Gait: 6 Indoor Mobility (Ambulation): Independent ambulated short distances inside her home PT Evaluation-Current Subjective Patient in bed pre tx, agrees to PT, has no complaints of pain. Pt/Family Goals to be independent at home Objective Patient Orientation: Person, Place, Situation Attachments: NG Tube, IV ROM/Strength ROM Lower Extremities WNL Strength Lower Extremities 4/5 gross BLE Sensory Vision: Functional Hearing: Functional Hand Dominance: Right Sensation Right Lower Extremit: Intact Sensation Left Lower Extremity: Intact Transfers Therapy Code Descriptions/Definitions Functional [place] Measure: 0=Not Assessed/NA 4=Minimal Assistance 1=Total Assistance 5=Supervision or Setup 2=Maximal Assistance 6=Modified [place] 3=Moderate Assistance 7=Complete [place] Transfers (B, C, W/C) (FIM): 4 Scootin Rollin Supine to/from Sit: 4 Sit to/from Stand: 4 min assist for supine to sit, CGA for sit to stand Gait Mode of Locomotion: Walk Anticipated Mode of Locomotion: Walk Gait (FIM): 1 Distance: 20' Gait Level of Assist: 4 Gait Persons Needed: 1 Gait Assistive Device: FWW Comments/Gait Description CGA, slow but steady ambulation Balance Sitting Static: Normal Sitting Dynamic: Normal Standing Static: Fair Standing Dynamic: Fair Treatment BLE seated exercises x15 (AP, LAQ) Assessment/Needs Patient has impaired mobility, strength, endurance. Patient BTB post tx with nurse call, phone, tray, all needs met. Steady ambulation but decreased endurance. Rehab Potential: Fair PT Short Term Goals Short Term Goals Time Frame: Nov 14, 2018 Transfers (B,C,W/C) (FIM): 5 Gait (FIM): 2 Gait Distance Comment: 50' Gait Level of Assist: 5 Gait Assistive Device: FWW PT Plan Problem List Problem List: Activity Tolerance, Functional Strength, Safety, Balance, Gait, Transfer, Bed Mobility, ROM Treatment/Plan Treatment Plan: Continue Plan of Care Treatment Plan: Bed Mobility, Education, Functional Activity Jose, Functional Strength, Gait, Safety, Therapeutic Exercise, Transfers Treatment Duration: Nov 14, 2018 Frequency: 6 times per week Estimated Hrs Per Day: .25 hour per day Patient and/or Family Agrees t: Yes Safety Risks/Education Patient Education: Gait Training, Transfer Techniques, Correct Positioning, Safety Issues Teaching Recipient: Patient Teaching Methods: Demonstration, Discussion Response to Teaching: Reinforcement Needed Discharge Recommendations Plan Patient will perform bed mobility and transfer training, balance and endurance training, functional strengthening, stair training, gait training, and education, to improve functional mobility and independence at home. Therapy Discharge Recommendati: Scheduled Assistance Time/GCodes Time In: 1452 Time Out: 1504 Total Billed Treatment Time: 12 Total Billed Treatment 1 visit THIAGO 12' SHALINI GUY PT Nov 07, 2018 15:14
--- NOTE | 2018-11-07 15:26 | Progress Note - Hospitalist ---
Subjective HPI/CC On Admission Date Seen by Provider: Nov 07, 2018 Time Seen by Provider: 10:00 abdominal pain Subjective/Events-last exam She reports continued abdominal pain. She would like the NG tube taken out of her nose. She has a sore throat. She is feeling weak. She denies any fevers or chills. She denies any nausea or vomiting. She denies any diarrhea. Objective Exam Vital Signs Vital Signs Date Time Temp Pulse Resp B/P (MAP) Pulse Ox O2 Delivery O2 Flow Rate FiO2 11/07/18 08:00 Room Air 11/07/18 08:00 37.2 68 18 144/69 (94) 92 Capillary Refill : Less Than 3 Seconds General Appearance: No Apparent Distress, Obese HEENT: PERRL/EOMI, Pharynx Normal Neck: Normal Inspection, Supple Respiratory: Lungs Clear, Normal Breath Sounds, No Respiratory Distress Cardiovascular: Regular Rate, Rhythm, No Edema, No Murmur Gastrointestinal: Normal Bowel Sounds, Soft, Distended, Tenderness Extremity: Normal Inspection, Non Tender, No Pedal Edema Neurologic/Psychiatric: Alert, Oriented x3, No Motor/Sensory Deficits Skin: Normal Color, Warm/Dry Lymphatic: No Adenopathy Results/Procedures Lab Laboratory Tests 11/07/18 06:10 Patient resulted labs reviewed. Assessment/Plan Assessment and Plan Assess & Plan/Chief Complaint Viral gastroenteritis Ventral hernia Nausea, vomiting, and diarrhea resolved Continues to have abdominal pain Leukocytosis resolved CT abdomen concerning for partial small bowel obstruction Surgery consulted, no concern for small bowel obstruction, no plan for ventral hernia repair at this time Continue supportive care Weakness PT/OT consulted Hypertension COPD Hypothyroidism Restless leg syndrome Stable, continue home meds Diagnosis/Problems Diagnosis/Problems (1) Viral gastroenteritis (2) Ventral hernia Status: Chronic Qualifiers: Obstruction and gangrene presence: with obstruction but without gangrene Qualified Codes: K43.6 - Other and unspecified ventral hernia with obstruction, without gangrene (3) Weakness Clinical Quality Measures Admission Status Admission Dx DVT/VTE Risk/Contraindication: VTE Addressed: Yes VTE Present on Admission: No Risk Factor Score Per Nursin RFS Level Per Nursing on Admit: 4+=Very High Other: Intermittent Pneumatic Compression Device DVT/VTE Prophylaxis Comfirm.Dx Therapy overlap <5days: Scheduled for Surgery IKE FRANK MD Nov 07, 2018 15:26
[2018-11-07 16:45] VITALS: BP 137/64
[2018-11-07] MEDS: rOPINIRole 1 MG (REQUIP) TABLET PO SCH (18:45)
[2018-11-07] MEDS: rOPINIRole 5 MG TAB (REQUIP) PO SCH (18:55)
[2018-11-07] MEDS ORDERED: POLYETHYLENE GLYCOL 17 GM (MIRALAX) PACK PO NR (19:00)
[2018-11-08 00:20] VITALS: BP 158/74
[2018-11-08] MEDS: LEVOTHYROXINE 112 MCG (LEVOTHROID) TAB PO SCH (05:18)
[2018-11-08] MEDS: D5 1/2 NS W/KCL 20 MEQ/L 1,000 ML IV SCH (05:18)
[2018-11-08 05:26] LABS: BASOPHILS % (AUTO) 0 % (0-10); EOSINOPHILS # (AUTO) 0.3 10^3/uL (0.0-0.3); EOSINOPHILS % (AUTO) 3 % (0-10); HEMATOCRIT 33 % (35-52); HEMOGLOBIN 10.2 G/DL (11.5-16.0); LYMPHOCYTES # (AUTO) 2.1 X 10^3 (1.0-4.0); LYMPHOCYTES % (AUTO) 28 % (12-44); MEAN CORPUSCULAR HEMOGLOBIN 25 PG (25-34); MEAN CORPUSCULAR HGB CONC 31 G/DL (32-36); MEAN CORPUSCULAR VOLUME 78 FL (80-99); MEAN PLATELET VOLUME 10.7 FL (7.4-10.4); MONOCYTES # (AUTO) 0.7 X 10^3 (0.0-1.0); MONOCYTES % (AUTO) 9 % (0-12); NEUTROPHILS # (AUTO) 4.4 X 10^3 (1.8-7.8); NEUTROPHILS % (AUTO) 59 % (42-75); PLATELET COUNT 265 10^3/uL (130-400); RED CELL DISTRIBUTION WIDTH 18.5 % (10.0-14.5); WHITE BLOOD COUNT 7.4 10^3/uL (4.3-11.0)
[2018-11-08 05:52] LABS: BUN/CREATININE RATIO 9; CALCIUM 8.1 MG/DL (8.5-10.1); CARBON DIOXIDE 22 MMOL/L (21-32); CHLORIDE 107 MMOL/L (98-107); CREATININE SERUM 0.64 MG/DL (0.60-1.30); GFR ESTIMATED > 60; GLUCOSE 105 MG/DL (70-105); POTASSIUM 3.7 MMOL/L (3.6-5.0); SODIUM 135 MMOL/L (135-145)
[2018-11-08] MEDS ORDERED: POLYETHYLENE GLYCOL 17 GM (MIRALAX) PACK PO PRN (07:30)
[2018-11-08] MEDS ORDERED: MELATONIN 3 MG TABLET PO PRN (07:30)
--- NOTE | 2018-11-08 07:55 | Progress Note - Surgery ---
ASHKAN LIM, 11/08/18 0755: Subjective Date Seen by a Provider: Nov 08, 2018 Time Seen by a Provider: 07:25 Subjective/Events-last exam Pt complaining of sore throat this morning. Denies nausea, vomiting, or abdominal pain. Denies BM but thinks this is d/t not having food. Pt given Efrain alax yesterday to assist with constipation. Pt is ready to advance her diet and go home. Review of Systems General: No Chills, No Night Sweats Pulmonary: No Dyspnea, No Cough Cardiovascular: No: Chest Pain, Palpitations Gastrointestinal: Constipation; No: Nausea, Vomiting, Abdominal Pain Objective Exam Vital Signs Date Time Temp Pulse Resp B/P (MAP) Pulse Ox O2 Delivery O2 Flow Rate FiO2 11/08/18 00:20 36.4 71 20 158/74 (102) 96 Room Air 11/07/18 20:00 Room Air 11/07/18 16:45 36.8 68 20 137/64 (88) 95 Room Air 11/07/18 08:00 Room Air 11/07/18 08:00 37.2 68 18 144/69 (94) 92 Room Air I & O 11/08/18 07:00 Intake Total 2830 ml Output Total 1600 ml Balance 1230 ml Capillary Refill : Less Than 3 Seconds General Appearance: No Apparent Distress, Obese HEENT: PERRL/EOMI, Pharynx Normal Neck: Normal Inspection, Supple Respiratory: Lungs Clear, Normal Breath Sounds, No Respiratory Distress Cardiovascular: Regular Rate, Rhythm, No Edema, No Murmur Gastrointestinal: soft, distended (mild), tenderness (LLQ pain) Extremity: Normal Inspection, Non Tender, No Pedal Edema Neurologic/Psychiatric: Alert, Oriented x3, No Motor/Sensory Deficits Skin: Normal Color, Warm/Dry Lymphatic: No Adenopathy Results Lab Laboratory Tests 11/08/18 05:10: White Blood Count 7.4, Red Blood Count 4.16L, Hemoglobin 10.2L, Hematocrit 33L, Mean Corpuscular Volume 78L, Mean Corpuscular Hemoglobin 25, Mean Corpuscular Hemoglobin Concent 31L, Red Cell Distribution Width 18.5H, Platelet Count 265, Mean Platelet Volume 10.7H, Neutrophils (%) (Auto) 59, Lymphocytes (%) (Auto) 28, Monocytes (%) (Auto) 9, Eosinophils (%) (Auto) 3, Basophils (%) (Auto) 0, Neutrophils # (Auto) 4.4, Lymphocytes # (Auto) 2.1, Monocytes # (Auto) 0.7, Eosinophils # (Auto) 0.3, Basophils # (Auto) 0.0, Sodium Level 135, Potassium Level 3.7, Chloride Level 107, Carbon Dioxide Level 22, Anion Gap 6, Blood Urea Nitrogen 6L, Creatinine 0.64, Estimat Glomerular Filtration Rate > 60, BUN/Creatinine Ratio 9, Glucose Level 105, Calcium Level 8.1L Assessment/Plan Assessment/Plan Assessment/Plan Possible SBO Ileus Plan is to advance diet and see how that is tolerated. Continue laxatives as she takes at home to assist with constipation. May d/c if pt is feeling up to it. Will continue to follow. Clinical Quality Measures DVT/VTE Risk/Contraindication: VTE Addressed: Yes VTE Present on Admission: No Risk Factor Score Per Nursin RFS Level Per Nursing on Admit: 4+=Very High Other: Intermittent Pneumatic Compression Device DVT/VTE Prophylaxis Comfirm.Dx Therapy overlap <5days: Scheduled for Surgery VALENTÍN BROOKS DO 11/08/18 0929: Subjective Time Seen by a Provider: 09:06 Subjective/Events-last exam Pt is hungry and wants to go home, has not had a BM yet but is still passing gas. Denies abdominal pain and does not think her belly is distended. Objective Exam Gastrointestinal: non tender, soft; No guarding, No rebound Assessment/Plan Assessment/Plan Assessment/Plan Pt most likely had a viral gastroenteritis. Will increase diet and she can be d/c'd home once tolerating diet. Supervisory-Addendum Brief Verification & Attestation Participated in pt care: history, MDM, physical Personally performed: exam, history, MDM Care discussed with: Medical Student Procedures: n/a Verification and Attestation of Medical Student E/M Service A medical student performed and documented this service in my presence. I reviewed and verified all information documented by the medical student and made modifications to such information, when appropriate. I personally performed the physical exam and medical decision making. Valentín Brooks Nov 08, 2018,09:28 ASHKAN LIM, Nov 08, 2018 07:55 VALENTÍN BROOKS DO Nov 08, 2018 09:29
[2018-11-08] MEDS: DULoxetine 30 MG (CYMBALTA) CAP PO SCH (08:07)
[2018-11-08] MEDS: PREGABALIN 150 MG (LYRICA) CAPSULE PO SCH (08:07)
[2018-11-08] MEDS: CLOPIDOGREL 75 MG (PLAVIX) TABLET PO SCH (08:07)
[2018-11-08] MEDS: meTOproloL SUCCINATE 50 MG (TOPROL XL) TAB PO SCH (08:07)
[2018-11-08] MEDS: ASPIRIN E.C. 81 MG (ECOTRIN) TAB PO SCH (08:07)
[2018-11-08 08:48] VITALS: BP 163/72
[2018-11-08] MEDS ORDERED: DOCUSATE SODIUM 100 MG (COLACE) CAP PO SCH (09:00)
[2018-11-08] MEDS ORDERED: SENNA W/DOCUSATE (SENOKOT S) TABLET PO SCH (09:00)
[2018-11-08] MEDS ORDERED: FAMOTIDINE 20 MG (PEPCID) TABLET PO SCH (09:00)
--- NOTE | 2018-11-08 10:28 | Physical Therapy Daily Note ---
PT Daily Note-Current Subjective Patient is very agreeable to participate with PT. No c/o. Mental Status Patient Orientation: Person, Time, Situation Attachments: IV Transfers Therapy Code Descriptions/Definitions Functional [place] Measure: 0=Not Assessed/NA 4=Minimal Assistance 1=Total Assistance 5=Supervision or Setup 2=Maximal Assistance 6=Modified [place] 3=Moderate Assistance 7=Complete [place] Therapy Quality Codes: 6 Independent with activity with or without an assistive device 5 Patient requires set up or clean up by helper. Patient completes activity by themselves 4 Supervision or touching assist (CGA). Pritchett provide cues , steadying assist 3 The helper provides less than half the effort to complete the activity 2 The helper provides more than half the effort to complete the activity 1 Dependent. The helper does all the effort to complete an activity 7 Patient refused to complete or attempt activity 9 The patient did not perform the activity before the current illness or injury 88 Not attempted due to Medical conditions or safety concerns Transfers (B, C, W/C) (FIM): 6 Scootin Rollin Supine to/from Sit: 6 Sit to/from Stand: 6 Bed to/from Chair: 6 Weight Bearing Right Lower Extremity: Right Weight Bearing/Tolerated Left Lower Extremity: Left Weight Bearing/Tolerated Gait Training Gait (FIM): 6 Distance (FIM): 3=150 ft Distance: 450' Gait Level of Assist: 6 Gait Assistive Device: FWW safe and functional with no deviation Exercises Supine Ex: Ankle pumps, Quad Set, Heel Slides, Straight leg raise Supine Reps: 12 Seated Therapy Exercises: Ankle pumps, Long arc quads, Hip flexion Seated Reps: 12 Assessment Patient tolerated treatment well and is up in recliner with needs met. PT Short Term Goals Short Term Goals Time Frame: Nov 14, 2018 Transfers (B,C,W/C) (FIM): 5 Gait (FIM): 2 Gait Distance Comment: 50' Gait Level of Assist: 5 Gait Assistive Device: FWW PT Plan Treatment/Plan Treatment Plan: Continue Plan of Care Treatment Plan: Bed Mobility, Education, Functional Activity Jose, Functional Strength, Gait, Safety, Therapeutic Exercise, Transfers Treatment Duration: Nov 14, 2018 Frequency: 6 times per week Estimated Hrs Per Day: .25 hour per day Patient and/or Family Agrees t: Yes Time/GCodes Time In: 930 Time Out: 955 Total Billed Treatment Time: 25 Total Billed Treatment 1 visit FA 13 min EX 12 min ORTEGA MATIAS PT Nov 08, 2018 10:28
--- NOTE | 2018-11-08 11:26 | Occupational Ther Daily Note ---
OT Current Status-Daily Note Subjective Pt alert, sitting on BSC. Nrsg student in room. Pt agrees to therapy. No c/o pain. Pt states that she is leaving in an hour and needs to put her clothes on. Mental Status/Objective Patient Orientation: Person Therapy Code Descriptions/Definitions Functional [place] Measure: 0=Not Assessed/NA 4=Minimal Assistance 1=Total Assistance 5=Supervision or Setup 2=Maximal Assistance 6=Modified [place] 3=Moderate Assistance 7=Complete [place] Attachments: IV ADL-Treatment Pt sitting on BSC. Pt completed toileting hygiene with SBA and clothing manipulation with SBA. Pt ambulated using FWW with SBA to recliner. Pt given pants, donned by self with CGA. Pt brushed hair by self. After therapy, pt sitting in recliner with call light/phone in reach. All needs met in room. Grooming (FIM): 5 Lower Body Dressing (FIM): 5 Toileting (FIM): 5 Transfers (B, C, W/C) (FIM): 5 Toilet/Commode Transfer (FIM): 5 OT Short Term Goals Short Term Goals Grooming(FIM): 6 Lower Body Dressing(FIM): 4 Transfers (B,C,W/C) (FIM): 5 1=Demonstrate adherence to instructed precautions during ADL tasks. 2=Patient will verbalize/demonstrate understanding of assistive devices/modifications for ADL. 3=Patient will improve strength/tolerance for activity to enable patient to perform ADL's. OT Fci Goals Fci Goals Eating (FIM): 6 Grooming(FIM): 7 Bathing(FIM): 5 Upper Body Dressing(FIM): 6 Lower Body Dressing(FIM): 4 Toileting(FIM): 5 Transfers (B,C,W/C) (FIM): 6 Toilet/Commode Transfer(FIM): 6 Tub Transfer(FIM): 5 Shower Transfer(FIM): 5 Additional Goals: 1-Demonstrate ADL Tasks, 2-Verbalize Understanding, 3- ImproveStrength/Jose 1=Demonstrate adherence to instructed precautions during ADL tasks. 2=Patient will verbalize/demonstrate understanding of assistive devices/modifications for ADL. 3=Patient will improve strength/tolerance for activity to enable patient to perform ADL's. OT Education/Plan Problem List/Assessment Assessment: Decreased Activ Tolerance, Decreased Safety Aware, Decreased UE Strength Discharge Recommendations Plan/Recommendations: Continue POC Treatment Plan/Plan of Care Patient would benefit from OT for education, treatment and training to promote independence in ADL's, mobility, safety and/or upper extremity function for ADL's. Plan of Care: ADL Retraining, Caregiver Training, Functional Mobility, UE Funct Exercise/Act Frequency: 5 times per week Estimated Hrs Per Day: .25 hour per day Agreement: Yes Rehab Potential: Fair Time/GCodes Start Time: 11:00 Stop Time: 11:23 Total Time Billed (hr/min): 23 Billed Treatment Time 1 visit-ADL 2 (23 min) GRACE DAVIS Nov 08, 2018 11:26
--- NOTE | 2018-11-08 12:04 | Discharge Summary ---
Discharge Summary Reconcile Patient Problems Problems Reviewed?: Yes Instructions for Patient Via [employer], Assessment/Instructions Take medications as prescribed. Follow up with PCP. Physician to follow Patient: PCP Discharge Diet for Home: No Restrictions Hospital Course Date of Admission: Nov 06, 2018 at 05:12 Admission Diagnosis : Possible small bowel obstruction Family Physician/Provider: Eliud Brewer DO Date of Discharge: 11/08/18 Discharge Diagnosis: Acute gastroenteritis Hospital Course: April Gomez is a an 78-year-old female who presented with abdominal pain, nausea, vomiting, and was admitted with concern for possible partial small bowel obstruction. She developed diarrhea following her admission. This quickly resolved. She had resolution of her nausea and vomiting. Her abdominal pain improved. She was evaluated by general surgery and it was determined that her CT imaging was not consistent with a small bowel obstruction. It was determined that her symptoms were due to an acute gastroenteritis. She worked with physical therapy during her hospitalization and this will be continued to upon discharge. She will continue with her home health. She'll follow up with her primary care physician. Labs and Pending Lab Test: Laboratory Tests 11/08/18 05:10: White Blood Count 7.4, Red Blood Count 4.16L, Hemoglobin 10.2L, Hematocrit 33L, Mean Corpuscular Volume 78L, Mean Corpuscular Hemoglobin 25, Mean Corpuscular Hemoglobin Concent 31L, Red Cell Distribution Width 18.5H, Platelet Count 265, Mean Platelet Volume 10.7H, Neutrophils (%) (Auto) 59, Lymphocytes (%) (Auto) 28, Monocytes (%) (Auto) 9, Eosinophils (%) (Auto) 3, Basophils (%) (Auto) 0, Neutrophils # (Auto) 4.4, Lymphocytes # (Auto) 2.1, Monocytes # (Auto) 0.7, Eosinophils # (Auto) 0.3, Basophils # (Auto) 0.0, Sodium Level 135, Potassium Level 3.7, Chloride Level 107, Carbon Dioxide Level 22, Anion Gap 6, Blood Urea Nitrogen 6L, Creatinine 0.64, Estimat Glomerular Filtration Rate > 60, BUN/Creatinine Ratio 9, Glucose Level 105, Calcium Level 8.1L Home Meds Active Reported Myrbetriq (Mirabegron) 50 Mg Tab.er.24h 50 Mg PO DAILY Methylprednisolone 4 Mg Tab.ds.pk PO UD 6 Days 6 DAY THEARPY FILLED 11-01-18 Oseltamivir Phosphate 75 Mg Capsule 75 Mg PO BID 5 Days FILLED 5 DAY THERAPY 11-01-18 Dicyclomine HCl 10 Mg Capsule 10 Mg PO QID PRN Ezetimibe 10 Mg Tablet 10 Mg PO DAILY Sucralfate 1 Gm Tablet 1 Gm PO QID Ondansetron Odt (Ondansetron) 4 Mg Tab.rapdis 4 Mg PO Q8H PRN Temazepam 15 Mg Capsule 30 Mg PO HS TAKES 2 (15MG) CAPSULES Duloxetine HCl 60 Mg Capsule.dr 60 Mg PO DAILY Oxycodone HCl 10 Mg Tablet 10 Mg PO Q4H PRN Toviaz (Fesoterodine Fumarate) 4 Mg Tab.sr.24h 4 Mg PO DAILY Hair, Skin & Nails (Multivitamin with Minerals) 1 Each Tablet 1 Tab PO DAILY Fluticasone Propionate 16 Gm [place].susp 1 [place] NS BID PRN Clopidogrel (Clopidogrel Bisulfate) 75 Mg Tablet 75 Mg PO DAILY Ropinirole HCl 4 Mg Tablet 8 Mg PO 1800 TAKES 2 (4MG) TABLETS Nitroglycerin 0.4 Mg Tab.subl 0.4 Mg SL UD PRN Aspir 81 (Aspirin) 81 Mg Tablet.dr 81 Mg PO DAILY Ventolin Hfa (Albuterol Sulfate) 18 Gm Hfa.aer.ad 2 Puff IH Q6H PRN Lyrica (Pregabalin) 150 Mg Capsule 150 Mg PO BID Lorazepam 1 Mg Tablet 1 Mg PO TID PRN Levothyroxine Sodium 112 Mcg Tablet 112 Mcg PO DAILY Metoprolol Succinate 50 Mg Tab.er.24h 50 Mg PO DAILY Consulations Surgery Patient Allergies: Coded Allergies: No Known Drug Allergies (Unverified , 10/31/18) Height (Feet): 5 Height (Inches): 2.00 Weight (Pounds): 163 Weight (Ounces): 0.0 Home Health Need/Face to Face Date of Face to Face: Nov 08, 2018 Clinical Findings: Muscle weakness, Unsteady gait I have seen Pt [id number]: Yes Discharged To: Home Diagnosis/Conditions: Weakness Problems/Diagnosis/Condition: (1) Weakness Patient is Homebound due to: Gracia fall risk due to instabilty, Muscle weakness Homebound Status Due to the above stated illness, injury or surgical procedure (medical condition or diagnosis) and associated clinical findings, the patient is ho mebound because of his/her inability to leave home except with aid of a supportive device and/or person AND leaving the home requires a considerable and taxing effort or is medically contraindicated. Pt req the following assistanc: Aid of another person, [facility] Health Nursing Orders Home Health Services Order: Nursing Services, Physical Therapy-Evaluate & Treat Therapy Orders Therapy Orders: Physical Therapy, PT to assess for OT Therapy Specific Orders: Eval assistive deivces, Teach enviro modifications/safety, Gait training, Increase strength/endurance Certify Stmt I certify that this patient is under my care and that I, a nurse practitioner or a physician; a porcelain buildup assistant working with me, had a face to face encounter that - meets the physician face to face encounter requirements with this patient as dated. Discharge Physical Exam General: Alert, Oriented X3, Cooperative, No Acute Distress HEENT: Atraumatic, EOMI Lungs: Clear to Auscultation, Normal Air Movement Heart: Regular Rate, No Murmurs Abdomen: Normal Bowel Sounds, Soft, No Tenderness Extremities: No Edema Skin: No Rashes Psych/Mental Status: Mental Status NL, Mood NL IKE FRANK MD Nov 08, 2018 12:04
[2018-11-08 13:00] VITALS: BP 163/72
--- NOTE | 2018-11-08 13:00 | NUR ---
WEST SADLER demonstrates understanding of discharge instructions and accurately returns instructions upon questioning. Copy of Post-Discharge Instructions given to PT. WEST SADLER is able to manage continuing needs after discharge. Patients belongings returned to PT. Patient discharged from 425-1 on 11/08/18 at 1300. WEST SADLER left floor via W/C, accompanied by STAFF AND BOAT CARPENTER PER AUTO.
--- NOTE | 2018-11-08 13:03 | NUR ---
CM/SS spoke with patient about discharge planning. Patient did not want to arrange HHC at this time as she did not feel she needed it. She has workers with [employer] for day and night hours. Order for FWW put in and they will pick it up from DME.
--- NOTE | 2018-11-08 13:19 | NUR ---
Pt is Jain and Fr Solomon was here this morning to anoint and provide Communion.
== END 2018-11-08 13:00 | disposition home or self-care (01) | DRG 392 ==
LOC: EDUNIT# 02:45 → ER 02:47 → 4TH 05:12
PROVIDERS: ADMIT Internal Medicine; ATTEND Internal Medicine
PROC: 0D9670Z Drainage of Stomach with Drainage Device, Via Natural or Artificial Opening (ICD-10-PCS; principal; 2018-11-06)
DX: A08.4 Viral intestinal infection, unspecified (principal); K43.6 Other and unspecified ventral hernia with obstruction, without gangrene; D72.829 Elevated white blood cell count, unspecified; R53.1 Weakness; I10 Essential (primary) hypertension; J44.9 Chronic obstructive pulmonary disease, unspecified; E03.9 Hypothyroidism, unspecified; G25.81 Restless legs syndrome; Z66 Do not resuscitate; I25.10 Atherosclerotic heart disease of native coronary artery without angina pectoris; E78.00 Pure hypercholesterolemia, unspecified; I25.2 Old myocardial infarction; K21.0 Gastro-esophageal reflux disease with esophagitis; M81.0 Age-related osteoporosis without current pathological fracture; R13.10 Dysphagia, unspecified; M19.91 Primary osteoarthritis, unspecified site; F41.9 Anxiety disorder, unspecified; F32.9 Major depressive disorder, single episode, unspecified; Z86.718 Personal history of other venous thrombosis and embolism; Z87.440 Personal history of urinary (tract) infections; Z87.891 Personal history of nicotine dependence
CPT/HCPCS: 36415; 74176; 80048; 80053; 83690; 83735; 85007; 85025; 85027; 96374; 96375

== ENCOUNTER → 2018-12-21 | Outpatient (CLI) | payer MEDICARE, MEDICAID ==
[~2018-12-21] MED LIST changes: +ALBU2.5V4 INH; +EZET10TA17 PO; +FEN12TD TP; -FENT1PAT6 TP; +METH4TAB10 PO; -METO-370 PO; +METO50TA7 PO; +OMEP40CA27 PO; -OMEP40CA36 PO; +OSEL75CA15 PO; +RT-ALBUTEROL SULF 2.5 MG/3 ML PRE-MIX VIAL INH ONE
== END ==
LOC: RT 09:12
PROVIDERS: ATTEND Nurse Practitioner Family
DX: J44.9 Chronic obstructive pulmonary disease, unspecified (principal); J30.9 Allergic rhinitis, unspecified; G47.36 Sleep related hypoventilation in conditions classified elsewhere; G47.10 Hypersomnia, unspecified
CPT/HCPCS: 94060; 94726; 94729

== ENCOUNTER 2019-01-26 11:54 | Emergency (ER) | payer MEDICARE, MEDICAID ==
[~2019-01-26] VITALS: Ht 154 cm; Wt 78.1 kg
[~2019-01-26 11:54] MED LIST changes: -ALBU2.5V4 INH; -RT-ALBUTEROL SULF 2.5 MG/3 ML PRE-MIX VIAL INH ONE
--- NOTE | 2019-01-26 12:12 | ED Cough/URI ---
General Chief Complaint: Respiratory Problems Stated Complaint: SOA Nursing Triage Note: SOA STARTING YESTERDAY. Sepsis Screen: No Definite Risk Source: patient Exam Limitations: no limitations History of Present Illness Date Seen by Provider: Jan 26, 2019 Time Seen by Provider: 12:10 Initial Comments SOA with cough and headache since yesterday. Timing/Duration: yesterday Severity/Quality: productive cough Associated Symptoms: cough Allergies and Home Medications Allergies Coded Allergies: No Known Drug Allergies (Unverified , 10/31/18) Home Medications Albuterol Sulfate 18 Gm Hfa.aer.ad, 2 PUFF IH Q6H PRN for WHEEZING, (Reported) Aspirin 81 Mg Tablet.dr, 81 MG PO DAILY, (Reported) Cefuroxime Axetil 250 Mg Tablet, 250 MG PO BID Prescribed by: ALFREDO JOSÉ on 01/26/19 1238 Clopidogrel Bisulfate 75 Mg Tablet, 75 MG PO DAILY, (Reported) Dicyclomine HCl 10 Mg Capsule, 10 MG PO QID PRN for CRAMPS, (Reported) Duloxetine HCl 60 Mg Capsule.dr, 60 MG PO DAILY, (Reported) Ezetimibe 10 Mg Tablet, 10 MG PO DAILY, (Reported) Fesoterodine Fumarate 4 Mg Tab.sr.24h, 4 MG PO DAILY, (Reported) Fluticasone Propionate 16 Gm [place].susp, 1 SPRAY NS BID PRN for ALLERGIES, (Reported) Levothyroxine Sodium 112 Mcg Tablet, 112 MCG PO DAILY, (Reported) Lorazepam 1 Mg Tablet, 1 MG PO TID PRN for ANXIETY, (Reported) Metoprolol Succinate 50 Mg Tab.er.24h, 50 MG PO DAILY, (Reported) Mirabegron 50 Mg Tab.er.24h, 50 MG PO DAILY, (Reported) Multivitamin with Minerals 1 Each Tablet, 1 TAB PO DAILY, (Reported) Nitroglycerin 0.4 Mg Tab.subl, 0.4 MG SL UD PRN for CHEST PAIN, (Reported) Ondansetron 4 Mg Tab.rapdis, 4 MG PO Q8H PRN for NAUSEA/VOMITING-1ST LINE, (Reported) Oxycodone HCl 10 Mg Tablet, 10 MG PO Q4H PRN for PAIN-SEVERE, (Reported) Prednisone 20 Mg Tab, 40 MG PO DAILY Prescribed by: ALFREDO JOSÉ on 01/26/19 1238 Pregabalin 150 Mg Capsule, 150 MG PO BID, (Reported) Ropinirole HCl 4 Mg Tablet, 8 MG PO 1800, (Reported) TAKES 2 (4MG) TABLETS Sucralfate 1 Gm Tablet, 1 GM PO QID, (Reported) Temazepam 15 Mg Capsule, 30 MG PO HS, (Reported) TAKES 2 (15MG) CAPSULES Patient Home Medication List Home Medication List Reviewed: Yes Review of Systems Review of Systems Constitutional: see HPI EENTM: see HPI Respiratory: see HPI, cough Cardiovascular: no symptoms reported Genitourinary: no symptoms reported Musculoskeletal: no symptoms reported Skin: no symptoms reported Psychiatric/Neurological: No Symptoms Reported Past Ylycycj-Ohbegy-Xdvukj Hx Patient Social History Alcohol Use: Past History Recreational Drug Use: No (STATES NOT AT THIS TIME. ) Drug of Choice: EXTENSIVE HX OF DRUG ABUSE/OVERDOSES/EXCESSIVE USE Smoking Status: Former Smoker Type Used: Cigarettes Former Smoker, Quit: Mar 26, 1996 2nd Hand Smoke Exposure: No Recent Foreign Travel: No Contact w/Someone Who Travel: No Recent Infectious Disease Expo: No Recent Hopitalizations: No Immunizations Up To Date Tetanus Booster (TDap): Unknown PED Vaccines UTD: Yes Date of Pneumonia Vaccine: Apr 22, 2009 Date of Influenza Vaccine: Nov 20, 2017 Seasonal Allergies Seasonal Allergies: Yes Past Medical History Surgeries: Yes Abdominal, Appendectomy, Bladder Surgery, Bowel Surgery, Cardiac, Coronary Stent, Hysterectomy, Oophorectomy, Orthopedic, Tonsillectomy Respiratory: Yes (O2 AT HS) Pulmonary Embolism, Sleep Apnea, COPD Currently Using CPAP: No Currently Using BIPAP: No Cardiac: Yes (CARDIAC CATH WITH STENTS X 2) Chronic Edema/Swelling, Coronary Artery Disease, Deep Vein Thrombosis, Heart Attack, High Cholesterol, Hypertension Neurological: Yes (COGNITIVE DEFICIT) Vertigo 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 Disorders: No [employer]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, 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 Genitourinary: Yes (INCONTINENCE) Kidney Infection, Bladder Infection, UTI-Chronic Gastrointestinal: Yes Abdominal Hernia, Gastroesophageal Reflux, Diverticulosis, Esophagitis Musculoskeletal: Yes Osteoporosis, Arthritis, Chronic Back Pain, Fractures Endocrine: Yes Hypothyroidsim HEENT: Yes (FULL DENTURES) Dysphagia Loss of Vision: Denies Hearing Impairment: Denies Cancer: No Psychosocial: Yes (EXTENSIVE HISTORY OF RX ABUSE/OVERDOSES/EXCESSIVE USE --OPIATES AND BENZO'S ) Anxiety, Depression Integumentary: No Blood Disorders: No Adverse Reaction/Blood Tranf: No Family Medical History Family history: Hypertension G8 BROTHER Myocardial infarction 19 MOTHER G8 BROTHER Physical Exam Vital Signs - First Documented 01/26/19 11:55 Temp 37.3 Pulse 80 Resp 26 B/P (MAP) 151/75 (100) Pulse Ox 95 O2 Delivery Room Air Capillary Refill : Less Than 3 Seconds Height: 5'2.00" Weight: 163lbs. 0.0oz. 73.537356ht; 32.00 BMI Method:Stated General Appearance: WD/WN, no apparent distress Eyes: Bilateral Eye Normal Inspection, Bilateral Eye PERRL, Bilateral Eye EOMI HEENT: PERRL/EOMI, normal ENT inspection Neck: non-tender, full range of motion Respiratory: no respiratory distress, no accessory muscle use, wheezing Gastrointestinal: normal bowel sounds, non tender, soft, other (ventral abdominal hernia, bowel sounds normal, states shes passing gas todayl ) Extremities: normal range of motion, non-tender Neurologic/Psychiatric: alert, normal mood/affect, oriented x 3 Skin: normal color, warm/dry Progress/Results/Core Measures Suspected Sepsis Recent Fever Within 48 Hours: No Infection Criteria Present: Suspected New Infection New/Unexplained Altered Menta: No Sepsis Screen: No Definite Risk SIRS Temperature: Pulse: 80 Respiratory Rate: 26 Laboratory Tests 01/26/19 12:48: White Blood Count 13.9H Blood Pressure 151 /75 Mean: 100 Laboratory Tests 01/26/19 12:48: Platelet Count 339 Results/Orders Lab Results Laboratory Tests Test 01/26/19 12:48 Range/Units White Blood Count 13.9 H 4.3-11.0 10^3/uL Red Blood Count 5.14 4.35-5.85 10^6/uL Hemoglobin 11.6 11.5-16.0 G/DL Hematocrit 37 35-52 % Mean Corpuscular Volume 72 L 80-99 FL Mean Corpuscular Hemoglobin 23 L 25-34 PG Mean Corpuscular Hemoglobin Concent 31 L 32-36 G/DL Red Cell Distribution Width 19.2 H 10.0-14.5 % Platelet Count 339 130-400 10^3/uL Mean Platelet Volume 10.3 7.4-10.4 FL Neutrophils (%) (Auto) 66 42-75 % Lymphocytes (%) (Auto) 23 12-44 % Monocytes (%) (Auto) 9 0-12 % Eosinophils (%) (Auto) 2 0-10 % Basophils (%) (Auto) 0 0-10 % Neutrophils # (Auto) 9.1 H 1.8-7.8 X 10^3 Lymphocytes # (Auto) 3.2 1.0-4.0 X 10^3 Monocytes # (Auto) 1.2 H 0.0-1.0 X 10^3 Eosinophils # (Auto) 0.3 0.0-0.3 10^3/uL Basophils # (Auto) 0.0 0.0-0.1 10^3/uL My Orders Orders - ALFREDO JOSÉ PERSONAL CARE ATTENDANT Cbc With Automated Diff (01/26/19 12:06) Comprehensive Metabolic Panel (01/26/19 12:06) Ed Iv/Invasive Line Start (01/26/19 12:06) Methylprednisolone Sod Succ (Solu-Medrol (01/26/19 12:15) Albuterol/Ipra Inhalation Soln (Duoneb I (01/26/19 12:15) Svn Small Volume Nebulizer (01/26/19 12:06) Ct Head Wo (01/26/19 12:08) Albuterol Pre-Mix Nebs (Rt) (Proventil (01/26/19 21:00) Ketorolac Injection (Toradol Injection) (01/26/19 13:00) Svn Small Volume Nebulizer (01/26/19 12:47) Albuterol Pre-Mix Nebs (Rt) (Proventil (01/26/19 12:53) Medications Given in ED Current Medications Medications Dose Ordered Sig/Perez Route Start Time Stop Time Status Last Admin Dose Admin Albuterol/ Ipratropium 3 ml ONCE ONCE INH 01/26/19 12:15 01/26/19 12:16 DC 01/26/19 12:40 3 ML Ketorolac Tromethamine 15 mg ONCE ONCE IVP 01/26/19 13:00 01/26/19 13:01 DC 01/26/19 12:55 15 MG Methylprednisolone Sodium Succinate 125 mg ONCE ONCE IVP 01/26/19 12:15 01/26/19 12:16 DC 01/26/19 12:11 125 MG Vital Signs/I&O 01/26/19 01/26/19 11:55 12:40 Temp 37.3 Pulse 80 Resp 26 B/P (MAP) 151/75 (100) Pulse Ox 95 99 O2 Delivery Room Air Room Air Capillary Refill : Less Than 3 Seconds Blood Pressure Mean: 100 POS Diagnostic Imaging Diagonstic Imaging: Xray, CT Comments NAME: [facility] REC#: [id number] PT STATUS: REG ER : 1940 PHYSICIAN: ALFREDO JOSÉ APRN ADMIT DATE: 01/26/19/ER Signed POSDate of Exam:01/26/19 CT HEAD WO PROCEDURE: CT head without contrast. TECHNIQUE: Multiple contiguous axial images were obtained through the brain without the use of intravenous contrast. Auto Exposure Controls were utilized during the CT exam to meet ALARA standards for radiation dose reduction. INDICATION: Headache. COMPARISON: 10/09/2018 FINDINGS: No large acute territorial ischemia, mass, or hemorrhage. Chronic microvascular disease is seen in the periventricular and subcortical white matter. The ventricles and cortical sulci are prominent, consistent with generalized volume loss. The basilar cisterns are patent and unremarkable. The calvarium is intact. Mucosal thickening is seen throughout the paranasal sinuses. IMPRESSION: 1. No large acute territorial ischemia, mass, or hemorrhage. 2. Chronic microvascular disease. 3. Generalized volume loss. Dictated by: Dictated on workstation # [id number] Dict: 01/26/19 1238 Trans: 01/26/19 1240 [facility] [phone] Interpreted by: PONCE TATE DO Electronically signed by: PONCE TATE DO 01/26/19 1240 NAME: [facility] REC#: [id number] PT STATUS: REG ER : 1940 PHYSICIAN: VALARIE WHITAKER MD ADMIT DATE: 01/26/19/ER Draft POSDate of Exam:01/26/19 CHEST 1 VIEW, AP/PA ONLY INDICATION: Shortness of air COMPARISON: 10/31/2018 TECHNIQUE: Single radiograph of the chest dated 01/26/2019 FINDINGS: The cardiac silhouette is within normal limits in size. No significant pulmonary vascular congestion. Multilevel prior vertebroplasty changes. Low lung volumes without focal pulmonary opacity. No pleural effusion. No pneumothorax. No acute osseous abnormality. IMPRESSION: Low lung volumes without superimposed acute cardiopulmonary abnormality. Dictated on workstation # [id number] Dict: 01/26/19 1238 Trans: 01/26/19 1241 [facility] [phone] Interpreted by: MEGHAN BARAJAS MD Electronically signed by: Departure Communication (Admissions) requests pain medication for her headache. OFfered toradol but she declined it stating "that doesnt work for me". Impression Primary Impression: COPD exacerbation Disposition: HOME, SELF-CARE Condition: Stable Departure-Patient Inst. Decision time for Depature: 12:37 Referrals: TORIBIO BREWER DO (PCP/Family) Primary Care Physician Patient Instructions: Exacerbation of COPD (DC) Add. Discharge Instructions: 1. Medication as directed 2. Follow up with Dr Brewer on monday All discharge instructions reviewed with patient and/or family. Voiced understanding. Scripts Cefuroxime Axetil (Cefuroxime) 250 Mg Tablet 250 MG PO BID, #10 TAB Prov: ALFREDO JOSÉ PERSONAL CARE ATTENDANT 01/26/19 Prednisone (Prednisone) 20 Mg Tab 40 MG PO DAILY, #6 TAB 0 Refills Prov: ALFREDO JOSÉ PERSONAL CARE ATTENDANT 01/26/19 ALFREDO JOSÉ PERSONAL CARE ATTENDANT Jan 26, 2019 12:12 POS
[2019-01-26] MEDS ORDERED: methylPREDNISolone 125 MG (Solu-MEDROL) VIAL IVP ONE ×2 (12:15)
[2019-01-26] MEDS ORDERED: NS IV 1000 ML 1,000 ML IV SCH (12:15)
[2019-01-26] MEDS ORDERED: RT-ALBUTEROL/IPRATROPIUM 3 ML (DUONEB) VIAL INH ONE (12:15)
--- NOTE | 2019-01-26 12:24 | NUR ---
BACK FROM CT . PCXR DONE
[2019-01-26] MEDS ORDERED: PRD20T PO (12:38)
[2019-01-26] MEDS ORDERED: CEFU250T80 PO (12:38)
--- NOTE | 2019-01-26 12:41 | Diagnostic Imaging Report ---
INDICATION: Shortness of air COMPARISON: 10/31/2018 TECHNIQUE: Single radiograph of the chest dated 01/26/2019 FINDINGS: The cardiac silhouette is within normal limits in size. No significant pulmonary vascular congestion. Multilevel prior vertebroplasty changes. Low lung volumes without focal pulmonary opacity. No pleural effusion. No pneumothorax. No acute osseous abnormality. IMPRESSION: Low lung volumes without superimposed acute cardiopulmonary abnormality. Dictated by: Dictated on workstation # [id number]
--- NOTE | 2019-01-26 12:41 | Diagnostic Imaging Report ---
PROCEDURE: CT head without contrast. TECHNIQUE: Multiple contiguous axial images were obtained through the brain without the use of intravenous contrast. Auto Exposure Controls were utilized during the CT exam to meet ALARA standards for radiation dose reduction. INDICATION: Headache. COMPARISON: 10/09/2018 FINDINGS: No large acute territorial ischemia, mass, or hemorrhage. Chronic microvascular disease is seen in the periventricular and subcortical white matter. The ventricles and cortical sulci are prominent, consistent with generalized volume loss. The basilar cisterns are patent and unremarkable. The calvarium is intact. Mucosal thickening is seen throughout the paranasal sinuses. IMPRESSION: 1. No large acute territorial ischemia, mass, or hemorrhage. 2. Chronic microvascular disease. 3. Generalized volume loss. Dictated by: Dictated on workstation # [id number]
[2019-01-26] MEDS ORDERED: RT-ALBUTEROL SULF 2.5 MG/3 ML PRE-MIX VIAL ONE (12:53)
[2019-01-26] MEDS ORDERED: KETOROLAC 30 MG/ML VIAL IVP ONE (13:00)
[2019-01-26 13:12] LABS: BASOPHILS % (AUTO) 0 % (0-10); EOSINOPHILS # (AUTO) 0.3 10^3/uL (0.0-0.3); EOSINOPHILS % (AUTO) 2 % (0-10); HEMATOCRIT 37 % (35-52); HEMOGLOBIN 11.6 G/DL (11.5-16.0); LYMPHOCYTES # (AUTO) 3.2 X 10^3 (1.0-4.0); LYMPHOCYTES % (AUTO) 23 % (12-44); MEAN CORPUSCULAR HEMOGLOBIN 23 PG (25-34); MEAN CORPUSCULAR HGB CONC 31 G/DL (32-36); MEAN CORPUSCULAR VOLUME 72 FL (80-99); MEAN PLATELET VOLUME 10.3 FL (7.4-10.4); MONOCYTES # (AUTO) 1.2 X 10^3 (0.0-1.0); MONOCYTES % (AUTO) 9 % (0-12); NEUTROPHILS # (AUTO) 9.1 X 10^3 (1.8-7.8); NEUTROPHILS % (AUTO) 66 % (42-75); PLATELET COUNT 339 10^3/uL (130-400); RED CELL DISTRIBUTION WIDTH 19.2 % (10.0-14.5); WHITE BLOOD COUNT 13.9 10^3/uL (4.3-11.0)
--- NOTE | 2019-01-26 13:27 | NUR ---
TO MISHEL REPORTS HEADACHE MUCH BETTER AFTER TORADOL IV.
[2019-01-26 13:29] LABS: ALANINE AMINOTRANSFERASE 7 U/L (0-55); ALBUMIN 4.1 GM/DL (3.2-4.5); ALKALINE PHOSPHATASE 100 U/L (40-136); BILIRUBIN,TOTAL 0.6 MG/DL (0.1-1.0); BUN/CREATININE RATIO 18; CALCIUM 9.6 MG/DL (8.5-10.1); CARBON DIOXIDE 22 MMOL/L (21-32); CHLORIDE 101 MMOL/L (98-107); CREATININE SERUM 0.74 MG/DL (0.60-1.30); GFR ESTIMATED > 60; GLUCOSE 97 MG/DL (70-105); POTASSIUM 3.7 MMOL/L (3.6-5.0); SODIUM 135 MMOL/L (135-145); TOTAL PROTEIN 6.9 GM/DL (6.4-8.2)
[2019-01-26 13:46] VITALS: BP 145/80
[2019-01-26] MEDS ORDERED: RT-ALBUTEROL SULF 2.5 MG/3 ML PRE-MIX VIAL INH SCH (21:00)
--- OUTSIDE RECORDS SUMMARY | 2019-02-21 11:00 | XMS REPORT | Encounter Summary ---
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 Name Role Phone Donna Brown RN Unavailable Unavailable Michael Mandujano MD Unavailable Alfonso Lino DO Unavailable Alfonso Keith MD Unavailable Eliud Brewer MD PCP Reason for Visit * Reason Comments Bladder infection Urinary Incontinence Encounter Details Care Team Description Date Type Department Darius Alvarez MD [address] [facility] [address] [place] [address] Acute cystitis without hematuria (Primar y Dx); Urinary urgency; Urinary frequency; Urge incontinence; Ventral hernia without obstruction or gangrene 08/24/2018 Procedure visit [facility] [address] [place] [address] Social History Date Tobacco Use [...] (FLONASE) 50 mcg/actuation nasal spray Apply 1 [place] to each nos tril as directed daily [...] Diagnoses Diagnosis Acute cystitis without hematuria - Prim alyson Acute cystitis Urinary urgency Urgency of urination Urinary frequency Urge incontinence Ventral hernia without obstruction or g angrene Ventral hernia, unspecified, without me ntion of obstruction or gangrene documented in this encounter
--- OUTSIDE RECORDS SUMMARY | 2019-02-21 11:00 | XMS REPORT | Encounter Summary ---
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 Name Role Phone Donna Brown RN Unavailable Unavailable Michael Mandujano MD Unavailable Alfonso Lino DO Unavailable Alfonso Keith MD Unavailable Eliud Brewer MD PCP Reason for Visit * Reason Comments Hernia * Consult, Test & Treat (Routine) Referred By Contact Referred To Contact Status Reason Specialty Diagnoses / Procedures Darius Alvarez MD [address] [facility] [address] [place] [address] [place] [address] [place] [address] No Auth Needed Specialty Services General Surgery Diagnoses Required Parastomal hernia without obstruction or gangrene Encounter Details Care Team Description Date Type Department Alfonso Keith Jr., MD [address] [place] [address] Parastomal hernia without obstruction or gangrene (Primary Dx) 09/14/2018 Office Visit [facility] [address] [place] [address] Social History Date Tobacco Use [...] as of this encounter Progress Notes * Alfonso Keith MD - 09/14/2018 10:30 AM CDT Date of Service: 09/14/2018 Subjective: April Gomez is a 78 y.o. female. History of Present Illness Ms. Gomez comes in today for another evaluation of her pre-existing parastomal hernia. She was seen in this office about 3 years ago for the same complaint an d was told at that time it was unlikely that surgery would be successful given h er history. She now has even larger hernia(s) is 3 years older and has a CeDar score of 78%. Review of Systems Constitutional: Positive for fatigue. Negative for activity change, chills, diap horesis and unexpected weight change. HENT: Negative for congestion, dental problem, drooling, ear discharge, ear pain , facial swelling, hearing loss, mouth sores, nosebleeds, postnasal drip, rhinor suzy, sinus pressure, sneezing, sore throat, tinnitus, trouble swallowing and vo ice change. Eyes: Negative for photophobia, pain, discharge, redness, itching and visual dis turbance. Respiratory: Positive for cough and wheezing. Negative for apnea, choking, chest tightness and shortness of breath. Cardiovascular: Negative for chest pain, palpitations and leg swelling. Gastrointestinal: Positive for abdominal distention, abdominal pain, constipatio n, nausea and vomiting. Negative for anal bleeding, blood in stool and diarrhea. Genitourinary: Positive for dysuria, enuresis and frequency. Negative for decrea sed urine volume, difficulty urinating, flank pain, genital sores, hematuria, me nstrual problem, pelvic pain, urgency, vaginal bleeding, vaginal discharge and v aginal pain. Musculoskeletal: Positive for arthralgias and back pain. Negative for gait probl em, joint swelling, myalgias, neck pain and neck stiffness. Skin: Negative for color change, pallor, rash and wound. Neurological: Positive for speech difficulty. Negative for dizziness, tremors, s eizures, facial asymmetry, weakness, light-headedness, numbness and headaches. Hematological: Negative for adenopathy. Bruises/bleeds easily. Psychiatric/Behavioral: Positive for confusion and decreased concentration. Nega tive for agitation, behavioral problems, dysphoric mood, hallucinations, self-in jury, sleep disturbance and suicidal ideas. The patient is nervous/anxious. The patient is not hyperactive. Objective: albuterol (PROAIR HFA) 90 mcg/actuation inhaler [...] (FLONASE) 50 mcg/actuation nasal spray Apply 1 [place] to each nos tril as directed daily [...] by mouth at bedtime as needed. Vitals: 09/14/18 1021 BP: 134/82 Pulse: 71 Resp: 14 Temp: 37 C (98.6 F) TempSrc: Oral Weight: 74.4 kg (164 lb) Height: 157.5 cm (62") Body mass index is 30 kg/m. Physical Exam Constitutional: She is oriented to person, place, and time. She appears well-dev eloped and well-nourished. HENT: Head: Normocephalic and atraumatic. Eyes: Pupils are equal, round, and reactive to light. EOM are normal. Neck: Normal range of motion. Neck supple. Cardiovascular: Normal rate and regular rhythm. Pulmonary/Chest: Effort normal and breath sounds normal. Abdominal: Soft. Bowel sounds are normal. A hernia is present. Musculoskeletal: Normal range of motion. Neurological: She is alert and oriented to person, place, and time. Skin: Skin is warm and dry. Assessment and Plan: Ms. Gomez is too high risk for complication and has too low of a chance for suc cess. No surgery offered. documented in this encounter Plan of Treatment Order Schedule Name Type Priority Associated Diag noses Ordered: 08/24/2018 AMB REFERRAL TO GENERAL Outpatient Routine Parast omal hernia without SURGERY Referral obstruction or gang mandy documented as of this encounter Visit Diagnoses Diagnosis Parastomal hernia without obstruction o r gangrene - Primary Hernia of unspecified site of abdominal cavity without mention of obstruction or gangrene documented in this encounter
--- OUTSIDE RECORDS SUMMARY | 2019-02-21 11:00 | XMS REPORT | Encounter Summary ---
Author Author [facility] Organization [facility] Address Unknown Phone Unavailable Care Team Providers Care Aircraft Servicer Name Role Phone Donna Brown RN Unavailable Unavailable Michael Mandujano MD Unavailable Alfonso Lino DO Unavailable Alfonso Keith MD Unavailable Eliud Brewer MD PCP Reason for Referral * Consult, Test & Treat (Routine) Referred By Contact Referred To Contact Status Reason Specialty Diagnoses / Procedures Darius Alvarez MD [address] [facility] [address] [place] [address] [place] [address] [place] [address] No Auth Needed Specialty Services General Surgery Diagnoses Required Parastomal hernia without obstruction or gangrene Encounter Details Care Team Description Date Type Department Darius Alvarez MD [address] [facility] [address] [place], [place] [id number] Recurrent UTI (urinary tract infection) (Primary Dx); Parastomal hernia without obstruction or gangrene 08/24/2018 Clinical [facility] [address] [place] [address] Social History Date Tobacco Use [...] Schedule Name Type Priority Associated Diag noses Expected: 08/24/2018 (Approximate), Expi res: 08/24/2019 URINALYSIS DIPSTICK Lab Routine Recurrent UTI (urinary REFLEX TO CULTURE tract infection) Order Schedule Name Type Priority Associated Diag noses Ordered: 08/24/2018 AMB REFERRAL TO GENERAL Outpatient Routine Parast omal hernia without SURGERY Referral obstruction or gang mandy documented as of this encounter Visit Diagnoses Diagnosis Recurrent UTI (urinary tract infection) - Primary Urinary tract infection, site not speci fied Parastomal hernia without obstruction o r gangrene Hernia of unspecified site of abdominal cavity without mention of obstruction or gangrene documented in this encounter
--- OUTSIDE RECORDS SUMMARY | 2019-02-21 11:00 | XMS REPORT | Encounter Summary ---
Author Author [facility] Organization [facility] Address Unknown Phone Unavailable Care Team Providers Care Food Production Worker Name Role Phone Donna Brown RN Unavailable Unavailable Michael Mandujano MD Unavailable Alfonso Lino DO Unavailable Alfonso Keith MD Unavailable Eliud Brewer MD PCP Reason for Visit * Reason Comments General Question Encounter Details Care Team Description Date Type Department Darius Alvarez MD [address] [facility] [address] [place] [address] General Question 09/19/2018 Telephone [facility] [address] [place] [address] Social History Date Tobacco Use [...] encounter Miscellaneous Notes * Telephone Encounter - Carmencita Nina - 09/19/2018 12:12 PM CDT I talked to this pt on the phone. Pt said she went to her PCP Dr Brewer and re ceived amoxicillin. Then she went to the ER and was prescribed bactrim. She aske d which abx should she take. Per Dr Alvarez, pt can take the bactrim and she w ill have to reschedule her 09-27-18 cystoscopy appt. I will have ROSSY shah all pt and reschedule her appt. Per Nirav Gomez PA-C I will have ROSSY Ponce get all culture reports, CT and blood work from the PCP and ER department. documented in this encounter Plan of Treatment Not on filedocumented as of this encounter Visit Diagnoses Not on filedocumented in this encounter
--- OUTSIDE RECORDS SUMMARY | 2019-02-21 11:00 | XMS REPORT | Clinical Summary ---
Author Author [facility] Organization [facility] Address Unknown Phone Unavailable Care Team Providers Care Digital Design Engineer Name Role Phone Donna Brown RN Unavailable Unavailable Michael Mandujano MD Unavailable Alfonso Lino DO Unavailable Alfonso Keith MD Unavailable Eliud Brewer MD PCP Source Comments Some departments are not documenting in the electronic medical record. If you d o not see the information that you expected, contact Release of Information in [facility] [email or web address] Information Management department at [phone] for further assistan ce in locating additional records.[facility] Allergies Comments Active Allergy Reactions Severity [...] Take 1 Tab by 30 Tab 3 06/05 (PROTONIX) 40 mg mouth Daily. 0 tabletIndications: [...] needed. Active fluticasone (FLONASE) 50 Apply 1 Cisco 0 mcg/actuation nasal spray to each nostril [...] (ESTRACE) 0.01 Insert or 42.5 g 11 0 % (0.1 mg/g) vaginal Apply one g 9 cream to vaginal area three times weekly. Apply 1 finger tip amount (1 g) of cream vaginally, 3x/wk at bedtime, as directed. Active fesoterodine ER(+) Take one 90 tablet 3 01 (TOVIAZ) 4 mg tablet tablet by 9 mouth daily. Do not cut/ crush/ chew Active Problems Problem Noted Date Colostomy in place 07/31/2014 Parastomal hernia 07/31/2014 Chest pain 06/03/2009 HLD (hyperlipidemia) 06/03/2009 PE (pulmonary embolism) 06/03/2009 Urinary incontinence 06/03/2009 Overview: 2006: Coaptite injections by Dr. Hanks ing x 2 (noted to have ISD on operative note) 07/2017: UDS by Dr. Mccormack ([place]): I SD, OAB, mixed incontinence 04/18/18: PE: Normal sensation b/l, + le ak with very strong valsalva, no hypermobility, no prolapse, good levato r tone, + atrophic vaginitis PVR: 38 cc Questionaires: MARGIE-6: 12 IIQ-7: 20 PISQ-12: #1 sometimes OAB-V8: 37 L ast Assessment & Plan: 77 y.o. female with h/o OAB, ISD w ho presents to re-establish with Dr. Alvarez. She is seen Dr. Mccormack, in [place], [place] who performed UDS and in 07/2017, reporting OAD and ISD. The patient has previously seen Dr. Alvarez and underwent coaptated injec tions x2 in 2005. Since that time she states that she has had worsening u rge urinary incontinence. Exam was significant for atrophic vaginitis, keri k only with very strong Valsalva. She emptied well today with PVR 37cc. W dax discussed that Myrbetriq has not worked for her over the last few months , we will trial a different medication. We will delay more invasiv e Botox therapy until after trialing another medication, which has the poten tial to improve her urgency. Additionally she would benefit from Est race cream 3 times weekly. She would benefit from pelvic floor physica l therapy if it is available in [place], [place]. All questions were ans wered and she is amenable to the plan. Vaginal Estrace cream 3 times weekly Discontinue Myrbetriq Start Trospium 60 XR daily PFPT with external referral to [facility] in 3-4 months Restless leg syndrome 06/03/2009 CAD (coronary artery disease) 06/03/2009 Overview: Hx of [place] 4 yrs ago Depression 06/03/2009 Arthritis 06/03/2009 Back pain 06/03/2009 Hypothyroidism 06/03/2009 Bursitis of knee 06/03/2009 Overview: R RAJI (obstructive sleep apnea) Overview: noncompliant with CPAP Family History Medical History Relation Name Comments [...] Health Maintenance Due Date Last Done Comments MEDICARE ANNUAL WELLNESS 1938 VISIT DTAP/TDAP VACCINES (1 - 1949 Tdap) PHYSICAL (COMPREHENSIVE) 1956 EXAM SHINGLES RECOMBINANT 1988 VACCINE (1 of 2) OSTEOPOROSIS 04/27/2003 SCREENING/MONITORING PNEUMONIA (PCV13/PPSV23) 04/27/2003 VACCINES (1 of 2 - PCV13) INFLUENZA VACCINE 09/20/2018 12/14/2017 Implants Device Identifier Shelf Expiration Date Model / Serial / L ot Implanted Type Area Manufactur er / / [id number] Lens-04/22/2004 Other Implanted: 04/22/2004 (Quantity not on file) Description:Intraocular lens implants / / [id number]-25/7/2004 Stent Implanted: 01/27/2004 by Karina Rosales MD (Quantity not on file) Description:prox LAD Results Not on filefrom Last 3 Months Insurance Type Payer Benefit Subscriber ID Effective Phone Address Plan / Dates Group Medicare MEDICARE MEDICARE xxxxxxxxxxx 1995- PART A AND Present B Medicaid UHC MEDICAID [place] UHC xxxxxxxxxxx 2012-P [place] PLAN [place] -[phone] Advance Directives Patient County Health Officer Explanation Type Date Recorded Advance 10/02/2015 12:18 PM Directive/DPOA
--- OUTSIDE RECORDS SUMMARY | 2019-02-21 11:00 | XMS REPORT | Encounter Summary ---
Author Author [facility] Organization [facility] Address Unknown Phone Unavailable Care Team Providers Care Deputy Juvenile Officer Name Role Phone Donna Brown RN Unavailable Unavailable Michael Mandujano MD Unavailable Alfonso Lino DO Unavailable Alfonso Keith MD Unavailable Eliud Brewer MD PCP Reason for Visit * Reason Comments Appointment Encounter Details Care Team Description Date Type Department Alfonso Keith Jr., MD [address] [place] [address] Appointment 09/10/2018 Telephone [facility] [id number] [place] [id number] Social History Date Tobacco Use Types [...]
== END 2019-01-26 13:45 | disposition home or self-care (01) ==
LOC: EDUNIT# 11:54 → ER 11:55
DX: J44.1 Chronic obstructive pulmonary disease with (acute) exacerbation (principal); I10 Essential (primary) hypertension; E78.00 Pure hypercholesterolemia, unspecified; I25.2 Old myocardial infarction; I25.10 Atherosclerotic heart disease of native coronary artery without angina pectoris; K21.0 Gastro-esophageal reflux disease with esophagitis; E03.9 Hypothyroidism, unspecified; F41.9 Anxiety disorder, unspecified; F32.9 Major depressive disorder, single episode, unspecified; Z99.81 Dependence on supplemental oxygen; Z86.718 Personal history of other venous thrombosis and embolism; Z79.82 Long term (current) use of aspirin; Z79.02 Long term (current) use of antithrombotics/antiplatelets; Z79.51 Long term (current) use of inhaled steroids; Z87.891 Personal history of nicotine dependence; Z90.49 Acquired absence of other specified parts of digestive tract; Z95.5 Presence of coronary angioplasty implant and graft; Z90.710 Acquired absence of both cervix and uterus; Z90.89 Acquired absence of other organs; Z86.711 Personal history of pulmonary embolism; Z87.440 Personal history of urinary (tract) infections; Z82.49 Family history of ischemic heart disease and other diseases of the circulatory system
CPT/HCPCS: 36415; 70450; 71045; 80053; 85025; 94640; 96374; 96375

== ENCOUNTER 2019-01-30 22:34 | Emergency (ER) | payer MEDICARE, MEDICAID ==
[~2019-01-30] VITALS: Ht 154 cm; Wt 78.1 kg
[~2019-01-30 22:34] MED LIST changes: -EZET10TA17 PO; -FEN12TD TP; +FENT1PAT6 TP; +METO-370 PO; -METO50TA7 PO; -OMEP40CA27 PO; +OMEP40CA36 PO
[2019-01-30] MEDS ORDERED: RT-ALBUTEROL/IPRATROPIUM 3 ML (DUONEB) VIAL INH ONE (22:45)
[2019-01-30 22:54] LABS: BASOPHILS # (AUTO) 0.2 10^3/uL (0.0-0.1); BASOPHILS % (AUTO) 1 % (0-10); EOSINOPHILS # (AUTO) 0.3 10^3/uL (0.0-0.3); EOSINOPHILS % (AUTO) 2 % (0-10); HEMATOCRIT 32 % (35-52); HEMOGLOBIN 9.6 G/DL (11.5-16.0); LYMPHOCYTES # (AUTO) 2.7 X 10^3 (1.0-4.0); LYMPHOCYTES % (AUTO) 18 % (12-44); MEAN CORPUSCULAR HEMOGLOBIN 22 PG (25-34); MEAN CORPUSCULAR HGB CONC 30 G/DL (32-36); MEAN CORPUSCULAR VOLUME 73 FL (80-99); MONOCYTES # (AUTO) 1.1 X 10^3 (0.0-1.0); MONOCYTES % (AUTO) 7 % (0-12); NEUTROPHILS # (AUTO) 10.6 X 10^3 (1.8-7.8); NEUTROPHILS % (AUTO) 71 % (42-75); PLATELET COUNT 381 10^3/uL (130-400); RED CELL DISTRIBUTION WIDTH 19.2 % (10.0-14.5); WHITE BLOOD COUNT 14.8 10^3/uL (4.3-11.0)
[2019-01-30 23:12] LABS: EOSINOPHILS % (MANUAL) 3 %; LYMPHOCYTES % (MANUAL) 21 %; METAMYELOCYTES % 1 %; MONOCYTES % (MANUAL) 2 %; MYELOCYTES % 6 %; NEUTROPHILS % (MANUAL) 66 %; NUCLEATED RED BLOOD CELLS 1; REACTIVE LYMPHOCYTES 1 %
[2019-01-30 23:13] LABS: POIKILOCYTOSIS SLIGHT
[2019-01-30 23:15] LABS: ALANINE AMINOTRANSFERASE 9 U/L (0-55); ALBUMIN 3.2 GM/DL (3.2-4.5); ALKALINE PHOSPHATASE 81 U/L (40-136); BILIRUBIN,TOTAL 0.2 MG/DL (0.1-1.0); BUN/CREATININE RATIO 20; CARBON DIOXIDE 21 MMOL/L (21-32); CHLORIDE 101 MMOL/L (98-107); GFR ESTIMATED > 60; GLUCOSE 131 MG/DL (70-105); MAGNESIUM 1.9 MG/DL (1.6-2.4); SODIUM 133 MMOL/L (135-145); TOTAL PROTEIN 5.4 GM/DL (6.4-8.2)
[2019-01-30] MEDS ORDERED: KETOROLAC 30 MG/ML VIAL IVP ONE (23:45)
[2019-01-31 00:17] LABS: BILIRUBIN,URINE NEGATIVE (NEGATIVE); CLARITY,URINE SL CLOUDY; COLOR,URINE YELLOW; GLUCOSE, URINE (UA) NEGATIVE (NEGATIVE); KETONES,URINE NEGATIVE (NEGATIVE); LEUKOCYTE ESTERASE ,URINE 1+ (NEGATIVE); NITRITE,URINE POSITIVE (NEGATIVE); PH,URINE 5.5 (5-9); PROTEIN,URINE NEGATIVE (NEGATIVE)
[2019-01-31 00:19] LABS: BACTERIA,URINE LARGE /HPF; RBC,URINE 0-2 /HPF
[2019-01-31] MEDS ORDERED: cefTRIAXone FOR IV USE 1,000 MG in WATER (STERILE) FOR INJECTION 10 ML IV ONE (01:30)
[2019-01-31] MEDS ORDERED: NITROFURANTOIN 100 MG (MACROBID) CAPSULE PO ONE (01:30)
[2019-01-31] MEDS ORDERED: WATER (STERILE) FOR INJECTION 10 ML ONE (01:35)
[2019-01-31] MEDS ORDERED: NITR-65 PO (01:39)
[2019-01-31] MEDS ORDERED: ALBU2.5V4 INH (01:39)
--- NOTE | 2019-01-31 01:42 | ED Chest Pain ---
General Chief Complaint: Chest Pain Stated Complaint: CHEST PAIN Nursing Triage Note: chest pain Nursing Sepsis Screen: No Definite Risk Source: patient, EMS, old records Exam Limitations: no limitations History of Present Illness Date Seen by Provider: Jan 30, 2019 Time Seen by Provider: 22:32 Initial Comments This 78 year old woman presents to the ER from home via EMS with complaints of central chest pain. She took two nitro at home with no relief. EMS administered aspirin and a third nitroglycerin. She still had pain. Pain is reproducible with palpation. She was recently seen in this ER for COPD exacerbation. She was treated with steroids and antibiotics. She has been using nebulizer treatments at home but only uses about one treatment per day. She does have history of coronary artery disease. She last had a stent placed in 2013. She had a normal stress test in 2017 and again in August of this year. She also complains of some laryngitis. Allergies and Home Medications Allergies Coded Allergies: No Known Drug Allergies (Unverified , 10/31/18) Home Medications Albuterol Sulfate 18 Gm Hfa.aer.ad, 2 PUFF IH Q6H PRN for WHEEZING, (Reported) Albuterol Sulfate 2.5 Mg/3 Ml Vial.neb, 2.5 MG INH Q4H PRN for WHEEZING Prescribed by: RADHA RIVAS on 01/31/19138 Aspirin 81 Mg Tablet.dr, 81 MG PO DAILY, (Reported) Clopidogrel Bisulfate 75 Mg Tablet, 75 MG PO DAILY, (Reported) Duloxetine HCl 60 Mg Capsule.dr, 60 MG PO DAILY, (Reported) Fesoterodine Fumarate 4 Mg Tab.sr.24h, 4 MG PO DAILY, (Reported) Fluticasone Propionate 16 Gm [place].susp, 1 SPRAY NS BID PRN for ALLERGIES, (Reported) Levothyroxine Sodium 112 Mcg Tablet, 112 MCG PO DAILY, (Reported) Lorazepam 1 Mg Tablet, 1 MG PO TID PRN for ANXIETY, (Reported) Nitrofurantoin Monohyd/M-Cryst 100 Mg Capsule, 1 TAB PO BID Prescribed by: RADHA RIVAS on 01/31/19138 Nitroglycerin 0.4 Mg Tab.subl, 0.4 MG SL UD PRN for CHEST PAIN, (Reported) Pregabalin 150 Mg Capsule, 150 MG PO BID, (Reported) Sucralfate 1 Gm Tablet, 1 GM PO QID, (Reported) Temazepam 15 Mg Capsule, 30 MG PO HS, (Reported) TAKES 2 (15MG) CAPSULES Patient Home Medication List Home Medication List Reviewed: Yes Review of Systems Review of Systems Constitutional: no symptoms reported EENTM: No Symptoms Reported Respiratory: See HPI Cardiovascular: See HPI Gastrointestinal: No Symptoms Reported Genitourinary: No Symptoms Reported Musculoskeletal: no symptoms reported Skin: no symptoms reported Psychiatric/Neurological: No Symptoms Reported Endocrine: No Symptoms Reported Hematologic/Lymphatic: No Symptoms Reported Past Jxylesk-Jupnty-Fvbezi Hx Past Med/Social Hx: Reviewed Nursing Past Med/Soc Hx Patient Social History Alcohol Use: Denies Use Recreational Drug Use: No Drug of Choice: denies Smoking Status: Former Smoker Type Used: Cigarettes Former Smoker, Quit: Mar 26, 1996 2nd Hand Smoke Exposure: No Recent Foreign Travel: No Contact w/Someone Who Travel: No Recent Infectious Disease Expo: No Recent Hopitalizations: No Physical Abuse: No Sexual Abuse: No Mistreated: No Fear: No Immunizations Up To Date Tetanus Booster (TDap): Unknown PED Vaccines UTD: Yes Date of Pneumonia Vaccine: Apr 22, 2009 Date of Influenza Vaccine: Nov 20, 2017 Seasonal Allergies Seasonal Allergies: Yes Past Medical History Surgeries: Yes Abdominal, Appendectomy, Bladder Surgery, Bowel Surgery, Cardiac, Coronary Stent, Hysterectomy, Oophorectomy, Orthopedic, Tonsillectomy Respiratory: Yes (O2 AT HS) Pulmonary Embolism, Sleep Apnea, COPD Currently Using CPAP: No Currently Using BIPAP: No Cardiac: Yes (CARDIAC CATH WITH STENTS X 2) Chronic Edema/Swelling, Coronary Artery Disease, Deep Vein Thrombosis, Heart Attack, High Cholesterol, Hypertension Neurological: Yes Vertigo : No 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 Disorders: 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, 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 Genitourinary: Yes (INCONTINENCE) Kidney Infection, Bladder Infection, UTI-Chronic Gastrointestinal: Yes Abdominal Hernia, Gastroesophageal Reflux, Diverticulosis, Esophagitis Musculoskeletal: Yes Osteoporosis, Arthritis, Chronic Back Pain, Fractures Endocrine: Yes Hypothyroidsim HEENT: Yes ( DENTURES) Dysphagia Loss of Vision: Denies Hearing Impairment: Denies Cancer: No Psychosocial: Yes Anxiety, Depression Integumentary: No Blood Disorders: No Adverse Reaction/Blood Tranf: No Family Medical History Family history: Hypertension G8 BROTHER Myocardial infarction 19 MOTHER G8 BROTHER Physical Exam Vital Signs Vital Signs - First Documented 01/30/19 22:35 Temp 36.6 Pulse 65 Resp 20 B/P (MAP) 134/72 (92) Pulse Ox 95 O2 Delivery Room Air Capillary Refill : Less Than 3 Seconds Height, Weight, BMI Height: 5'2.00" Weight: 163lbs. 0.0oz. 73.446971kv; 32.00 BMI Method:Stated General Appearance: No Apparent Distress, WD/WN HEENT: PERRL/EOMI, Normal ENT Inspection, Other (laryngitis noted) Neck: Normal Inspection Respiratory: Lungs Clear, Normal Breath Sounds, Accessory Muscle Use, Other (increased work of breathing with abdominal muscle use in expiratory phase. 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 Norm as Tested Skin: Normal Color, Warm/Dry Progress/Results/Core Measures Results/Orders Lab Results Laboratory Tests Test 01/30/19 22:45 01/30/19 23:34 01/31/19 00:59 Range/Units White Blood Count 14.8 H 4.3-11.0 10^3/uL Red Blood Count 4.33 L 4.35-5.85 10^6/uL Hemoglobin 9.6 L 11.5-16.0 G/DL Hematocrit 32 L 35-52 % Mean Corpuscular Volume 73 L 80-99 FL Mean Corpuscular Hemoglobin 22 L 25-34 PG Mean Corpuscular Hemoglobin Concent 30 L 32-36 G/DL Red Cell Distribution Width 19.2 H 10.0-14.5 % Platelet Count 381 130-400 10^3/uL Mean Platelet Volume 10.0 7.4-10.4 FL Neutrophils (%) (Auto) 71 42-75 % Lymphocytes (%) (Auto) 18 12-44 % Monocytes (%) (Auto) 7 0-12 % Eosinophils (%) (Auto) 2 0-10 % Basophils (%) (Auto) 1 0-10 % Neutrophils # (Auto) 10.6 H 1.8-7.8 X 10^3 Lymphocytes # (Auto) 2.7 1.0-4.0 X 10^3 Monocytes # (Auto) 1.1 H 0.0-1.0 X 10^3 Eosinophils # (Auto) 0.3 0.0-0.3 10^3/uL Basophils # (Auto) 0.2 H 0.0-0.1 10^3/uL Neutrophils % (Manual) 66 % Lymphocytes % (Manual) 21 % Monocytes % (Manual) 2 % Eosinophils % (Manual) 3 % Metamyelocytes % 1 % Myelocytes % 6 % Nucleated Red Blood Cells 1 Reactive Lymphocytes 1 % Poikilocytosis SLIGHT Prothrombin Time 14.0 12.2-14.7 SEC INR Comment 1.0 0.8-1.4 Activated Partial Thromboplast Time 24 24-35 SEC Sodium Level 133 L 135-145 MMOL/L Potassium Level 4.0 3.6-5.0 MMOL/L Chloride Level 101 98-107 MMOL/L Carbon Dioxide Level 21 21-32 MMOL/L Anion Gap 11 5-14 MMOL/L Blood Urea Nitrogen 16 7-18 MG/DL Creatinine 0.80 0.60-1.30 MG/DL Estimat Glomerular Filtration Rate > 60 BUN/Creatinine Ratio 20 Glucose Level 131 H 70-105 MG/DL Calcium Level 9.0 8.5-10.1 MG/DL Corrected Calcium 9.6 8.5-10.1 MG/DL Magnesium Level 1.9 1.6-2.4 MG/DL Total Bilirubin 0.2 0.1-1.0 MG/DL Aspartate Amino Transf (AST/SGOT) 13 5-34 U/L Alanine Aminotransferase (ALT/SGPT) 9 0-55 U/L Alkaline Phosphatase 81 40-136 U/L Myoglobin 21.7 10.0-92.0 NG/ML Troponin I < 0.028 < 0.028 <0.028 NG/ML C-Reactive Protein High Sensitivity 0.67 H 0.00-0.50 MG/DL B-Type Natriuretic Peptide 84.3 <100.0 PG/ML Total Protein 5.4 L 6.4-8.2 GM/DL Albumin 3.2 3.2-4.5 GM/DL Urine Color YELLOW Urine Clarity SL CLOUDY Urine pH 5.5 5-9 Urine Specific [place] 1.010 L 1.016-1.022 Urine Protein NEGATIVE NEGATIVE Urine Glucose (UA) NEGATIVE NEGATIVE Urine Ketones NEGATIVE NEGATIVE Urine Nitrite POSITIVE H NEGATIVE Urine Bilirubin NEGATIVE NEGATIVE Urine Urobilinogen 0.2 < = 1.0 MG/DL Urine Leukocyte Esterase 1+ H NEGATIVE Urine RBC (Auto) 1+ H NEGATIVE Urine RBC 0-2 /HPF Urine WBC 10-25 H /HPF Urine Crystals NONE /LPF Urine Bacteria LARGE H /HPF Urine Casts NONE /LPF Urine Mucus NEGATIVE /LPF Urine Culture Indicated YES My Orders Orders - RADHA PAREDES MD Cbc With Automated Diff (01/30/19 22:41) Magnesium (01/30/19 22:41) Chest 1 View, Ap/Pa Only (01/30/19 22:41) Ekg Tracing (01/30/19:41) Comprehensive Metabolic Panel (01/30/19 22:41) Myoglobin Serum (01/30/19 22:41) Protime With Inr (01/30/19:41) Partial Thromboplastin Time (01/30/19:41) O2 (01/30/19 22:41) Monitor-Rhythm Ecg Trace Only (01/30/19 22:41) Ed Iv/Invasive Line Start (01/30/19 22:41) BNP (01/30/19 22:41) Troponin I (01/30/19 22:41) Hs C Reactive Protein (01/30/19 22:41) Albuterol/Ipra Inhalation Soln (Duoneb I (01/30/19 22:45) Svn Small Volume Nebulizer (01/30/19 22:41) Manual Differential (01/30/19 22:45) Ketorolac Injection (Toradol Injection) (01/30/19 23:45) Ua Culture If Indicated (01/30/19 23:41) Troponin I (01/31/19 00:45) Urine Culture (01/30/19 23:34) Ceftriaxone For Iv Use (Rocephin For I (01/31/19 01:30) Nitrofurantoin Capsule,Macro (Macrobid C (01/31/19 01:30) Albuterol/Ipra Inhalation Soln (Duoneb I (01/31/19 01:45) Svn Small Volume Nebulizer (01/31/19 01:34) Water (Sterile) For Injection (Sterile W (01/31/19 01:35) Medications Given in ED Current Medications Medications Dose Ordered Sig/Perez Route Start Time Stop Time Status Last Admin Dose Admin Albuterol/ Ipratropium 3 ml ONCE ONCE INH 01/30/19 22:45 01/30/19 22:46 DC 01/30/19 22:57 3 ML Albuterol/ Ipratropium 3 ml ONCE ONCE INH 01/31/19 01:45 01/31/19 01:46 DC 01/31/19 01:41 3 ML Ceftriaxone Sodium 1000 mg/ Sterile Water 10 ml @ 200 mls/hr ONCE ONCE IV 01/31/19 01:30 01/31/19 01:32 DC 01/31/19 01:41 200 MLS/HR Ketorolac Tromethamine 15 mg ONCE ONCE IVP 01/30/19 23:45 01/30/19 23:46 DC 01/30/19 23:49 15 MG Nitrofurantoin Macrocrystals 100 mg ONCE ONCE PO 01/31/19 01:30 01/31/19 01:31 DC 01/31/19 01:41 100 MG Vital Signs/I&O 01/30/19 01/30/19 01/30/19 01/30/19 22:35 22:35 22:35 22:59 Temp 36.6 Pulse 65 Resp 20 B/P (MAP) 134/72 (92) Pulse Ox 95 95 95 O2 Delivery Room Air Room Air Room Air Room Air 01/31/19 01:55 Temp 36.6 Pulse 58 Resp 18 B/P (MAP) 151/76 (92) Pulse Ox 96 O2 Delivery Room Air Blood Pressure Mean: 92 POS Progress Progress Note : Time: 01:40 Progress Note Cardiopulmonary workup was unremarkable. Patient's leukocytosis is likely steroid induced. UA was obtained and suggested urinary tract infection. Patient has been on a cephalosporin as prescribed during her last ER visit for COPD exacerbation. She has evidence of urinary tract infection despite taking this antibiotic. Prior cultures were reviewed. Macrobid was selected as the next antibiotic. Macrobid and Rocephin were given in the ER. A prescription for Macrobid was provided. Patient received a DuoNeb treatment after her initial assessment. This was repeated prior to departure. Pain was treated with Toradol which was quite helpful to her. Initial and 2 hour troponin studies were normal. Patient admitted she has only been using her nebulizer treatments once a day because she has been low on the albuterol vials. A prescription is being provided to her for refills and she was instructed to use it every 4 hours as needed. Initial ECG Impression Date: Jan 31, 2019 Initial ECG Impression Time: 22:41 Initial ECG Rate: 66 Initial ECG Rhythm: Normal Sinus Initial ECG Intervals: Normal Initial ECG Impression: Normal Comment Normal sinus rhythm with no ST elevation or depression. No abnormal intervals or axis deviation. Diagnostic Imaging Diagonstic Imaging: Xray Plain Films/CT/US/NM/MRI: chest Comments Chest x-ray viewed by me and report not yet available. No acute abnormalities appreciated. Departure Impression Primary Impression: COPD exacerbation Additional Impressions: Atypical chest pain Urinary tract infection Qualified Codes: N39.0 - Urinary tract infection, site not specified Disposition: HOME, SELF-CARE Condition: Improved Departure-Patient Inst. Decision time for Depature: 01:36 Referrals: TORIBIO BREWER DO (PCP/Family) Primary Care Physician Patient Instructions: Chronic Obstructive Pulmonary Disease (COPD), Including Emphysema, Urinary Tract Infections in Adults Add. Discharge Instructions: Complete your antibiotics as prescribed. Follow-up with Dr. Brewer to review urine culture results. Drink plenty of clear liquids. Increase your albuterol treatments to every 4 hours as needed. Please be seen in Dr. Brewer's office as soon as possible. You may take ibuprofen up to 400 mg 3 times daily for treatment of your chest pain. Take with food or milk to avoid stomach irritation. Return to the emergency room if you have worsening symptoms. All discharge instructions reviewed with patient and/or family. Voiced understanding. Scripts Albuterol Sulfate (Albuterol Sulfate) 2.5 Mg/3 Ml Vial.neb 2.5 MG INH Q4H PRN for WHEEZING, #50 EA 1 Refill Prov: RADHA PAREDES MD 01/31/19 Nitrofurantoin Monohyd/M-Cryst (Macrobid 100 mg Capsule) 100 Mg Capsule 1 TAB PO BID, #14 CAP Prov: RADHA PAREDES MD 01/31/19 Copy Copies To 1: TORIBIO BREWER JOSHUA T MD Jan 31, 2019 01:42 POS
[2019-01-31] MEDS ORDERED: RT-ALBUTEROL/IPRATROPIUM 3 ML (DUONEB) VIAL INH ONE (01:45)
[2019-01-31 01:55] VITALS: BP 151/76
--- NOTE | 2019-01-31 07:08 | Diagnostic Imaging Report ---
INDICATION: Chest pain. Comparison made with prior examination of 01/26/2019. FINDINGS: There is cardiomegaly. Lungs are clear. No pleural effusion or pneumothorax. Mediastinum is unremarkable. IMPRESSION: No acute cardiopulmonary abnormality. Cardiomegaly. Dictated by: Dictated on workstation # [id number]
== END 2019-01-31 01:56 | disposition home or self-care (01) ==
LOC: EDUNIT# 22:34 → ER 22:35
DX: J44.1 Chronic obstructive pulmonary disease with (acute) exacerbation (principal); R07.89 Other chest pain; N39.0 Urinary tract infection, site not specified; I25.10 Atherosclerotic heart disease of native coronary artery without angina pectoris; I10 Essential (primary) hypertension; E78.00 Pure hypercholesterolemia, unspecified; I25.2 Old myocardial infarction; F41.9 Anxiety disorder, unspecified; F32.9 Major depressive disorder, single episode, unspecified; K21.9 Gastro-esophageal reflux disease without esophagitis; E03.9 Hypothyroidism, unspecified; Z86.718 Personal history of other venous thrombosis and embolism; Z87.440 Personal history of urinary (tract) infections; Z79.82 Long term (current) use of aspirin; Z79.02 Long term (current) use of antithrombotics/antiplatelets; Z79.51 Long term (current) use of inhaled steroids; Z87.891 Personal history of nicotine dependence; Z90.49 Acquired absence of other specified parts of digestive tract; Z95.5 Presence of coronary angioplasty implant and graft; Z90.710 Acquired absence of both cervix and uterus; Z90.89 Acquired absence of other organs; Z86.711 Personal history of pulmonary embolism; Z82.49 Family history of ischemic heart disease and other diseases of the circulatory system
CPT/HCPCS: 36415; 71045; 80053; 81000; 83735; 83874; 83880; 84484; 85007; 85027; 85610; 85730; 86141; 87077; 87088; 87184; 87186; 93005; 93041; 94640; 96374; 96375

== ENCOUNTER → 2019-02-06 | Outpatient (CLI) | payer MEDICARE, MEDICAID ==
[~2019-02-06] MED LIST changes: +ALBU2.5V4 INH; +HOLD METFORMIN - RECEIVED CONTRAST 20 ML VIAL IV SCH; +IOHEXOL 350 MG/ML 100 ML (OMNIPAQUE 350) VIAL IV ONE; +NS 100 ML (IVPB) BAG IV ONE
--- NOTE | 2019-02-06 11:40 | Diagnostic Imaging Report ---
PROCEDURE: CT abdomen and pelvis with contrast. TECHNIQUE: Multiple contiguous axial images were obtained through the abdomen and pelvis after administration of intravenous contrast. Auto Exposure Controls were utilized during the CT exam to meet ALARA standards for radiation dose reduction. INDICATION: Evaluate for incisional hernias. COMPARISON: Correlation is made with prior CT from 11/06/2018. FINDINGS: The lung bases are clear. No discrete liver mass is identified. The gallbladder is unremarkable. There is no biliary ductal dilatation. The pancreas and spleen are unremarkable. No adrenal mass is detected. Kidneys are unremarkable. Aorta is calcified but nonaneurysmal. The rectus abdominis diastases is again noted with some laxity in the midline anterior abdomen in the epigastric location. Fat protrudes through the area of laxity, similar to prior exam. Inferior to this level there appears to be abdominal wall mesh in the right and left para-midline locations. The abdominal wall laxity just inferior to this is again noted with bowel loops extending into the area of laxity in the midline. There is a focal hernia at a similar location in the right para-midline location containing small bowel loops protruding through the area of hernia. However, no obstructive features are identified on today's study. Bowel loops all remain decompressed and do not appear to be fluid-filled. No new hernia is identified. There is no wall thickening or evidence of strangulation. No free fluid or fluid collection is seen. There is no free air. Bladder is decompressed. There are postsurgical changes of the right hip. Kyphoplasty changes in the lower thoracic and lumbar spine are noted. IMPRESSION: Postsurgical changes to the anterior abdominal wall, as described. There is a focal narrow neck hernia right paramidline abdomen, as described containing a small bowel loop. However, no obstructive features are identified on today's study. No acute feature in abdomen or pelvis is identified. Dictated by: Dictated on workstation # [id number]
== END ==
LOC: RAD 10:24
PROVIDERS: ATTEND Surgery
DX: K43.2 Incisional hernia without obstruction or gangrene (principal); Z98.890 Other specified postprocedural states
CPT/HCPCS: 74177

== ENCOUNTER 2019-03-05 16:24 | Emergency (ER) | payer MEDICARE, MEDICAID ==
[~2019-03-05] VITALS: Ht 154 cm; Wt 69.0 kg
[~2019-03-05 16:24] MED LIST changes: +EZET10TA17 PO; +FEN12TD TP; -FENT1PAT6 TP; -HOLD METFORMIN - RECEIVED CONTRAST 20 ML VIAL IV SCH; -IOHEXOL 350 MG/ML 100 ML (OMNIPAQUE 350) VIAL IV ONE; -METO-370 PO; +METO50TA7 PO; -NS 100 ML (IVPB) BAG IV ONE; +OMEP40CA27 PO; -OMEP40CA36 PO
--- NOTE | 2019-03-05 16:36 | ED General ---
General Stated Complaint: WEAKNESS Source of Information: EMS Exam Limitations: No Limitations History of Present Illness Date Seen by Provider: Mar 05, 2019 Time Seen by Provider: 16:33 Initial Comments To ER by EMS from home with c/o general weakness. Diagnosed with UTI recently, took bactrim yesterday and today. C/o general weakness and nausea. Timing/Duration: 1-2 Days Severity: Moderate Associated Systoms: Weakness Allergies and Home Medications Allergies Coded Allergies: No Known Drug Allergies (Unverified , 10/31/18) Home Medications Albuterol Sulfate 18 Gm Hfa.aer.ad, 2 PUFF IH Q6H PRN for WHEEZING, (Reported) Albuterol Sulfate 2.5 Mg/3 Ml Vial.neb, 2.5 MG INH Q4H PRN for WHEEZING Prescribed by: RADHA RIVAS on 01/31/19138 Aspirin 81 Mg Tablet.dr, 81 MG PO DAILY, (Reported) Clopidogrel Bisulfate 75 Mg Tablet, 75 MG PO DAILY, (Reported) Duloxetine HCl 60 Mg Capsule.dr, 60 MG PO DAILY, (Reported) Fesoterodine Fumarate 4 Mg Tab.sr.24h, 4 MG PO DAILY, (Reported) Fluticasone Propionate 16 Gm [place].susp, 1 SPRAY NS BID PRN for ALLERGIES, (Reported) Levothyroxine Sodium 112 Mcg Tablet, 112 MCG PO DAILY, (Reported) Lorazepam 1 Mg Tablet, 1 MG PO TID PRN for ANXIETY, (Reported) Nitrofurantoin Monohyd/M-Cryst 100 Mg Capsule, 1 TAB PO BID Prescribed by: RADHA RIVAS on 01/31/19138 Nitroglycerin 0.4 Mg Tab.subl, 0.4 MG SL UD PRN for CHEST PAIN, (Reported) Pregabalin 150 Mg Capsule, 150 MG PO BID, (Reported) Sucralfate 1 Gm Tablet, 1 GM PO QID, (Reported) Temazepam 15 Mg Capsule, 30 MG PO HS, (Reported) TAKES 2 (15MG) CAPSULES Patient Home Medication List Home Medication List Reviewed: Yes Review of Systems Review of Systems Constitutional: see HPI EENTM: see HPI Respiratory: no symptoms reported Cardiovascular: no symptoms reported Genitourinary: see HPI, frequency Musculoskeletal: no symptoms reported Skin: no symptoms reported Psychiatric/Neurological: No Symptoms Reported Past Gmkieqr-Grvctr-Lxgbkr Hx Patient Social History Drug of Choice: denies Type Used: Cigarettes Former Smoker, Quit: Mar 26, 1996 2nd Hand Smoke Exposure: No Recent Foreign Travel: No Contact w/Someone Who Travel: No Recent Hopitalizations: No Immunizations Up To Date Tetanus Booster (TDap): Unknown PED Vaccines UTD: Yes Date of Pneumonia Vaccine: Apr 22, 2009 Date of Influenza Vaccine: Nov 20, 2017 Seasonal Allergies Seasonal Allergies: Yes Past Medical History Surgeries: Yes Abdominal, Appendectomy, Bladder Surgery, Bowel Surgery, Cardiac, Coronary Stent, Hysterectomy, Oophorectomy, Orthopedic, Tonsillectomy Respiratory: Yes (O2 AT HS) Pulmonary Embolism, Sleep Apnea, COPD Currently Using CPAP: No Currently Using BIPAP: No Cardiac: Yes (CARDIAC CATH WITH STENTS X 2) Chronic Edema/Swelling, Coronary Artery Disease, Deep Vein Thrombosis, Heart Attack, High Cholesterol, Hypertension Neurological: Yes Vertigo 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 Disorders: No SHIPPING LEAD History: Hysterectomy, Menopausal Genitourinary: Yes (INCONTINENCE) Kidney Infection, Bladder Infection, UTI-Chronic Gastrointestinal: Yes Abdominal Hernia, Gastroesophageal Reflux, Diverticulosis, Esophagitis Musculoskeletal: Yes Osteoporosis, Arthritis, Chronic Back Pain, Fractures Endocrine: Yes Hypothyroidsim HEENT: Yes ( DENTURES) Dysphagia Loss of Vision: Denies Hearing Impairment: Denies Cancer: No Psychosocial: Yes Anxiety, Depression Integumentary: No Blood Disorders: No Adverse Reaction/Blood Tranf: No Family Medical History Family history: Hypertension G8 BROTHER Myocardial infarction 19 MOTHER G8 BROTHER Physical Exam Vital Signs Vital Signs - First Documented 03/05/19 16:25 Temp 36.6 Pulse 83 Resp 18 B/P (MAP) 142/57 (85) Pulse Ox 96 O2 Delivery Nasal Cannula O2 Flow Rate 3.00 Capillary Refill : Height, Weight, BMI Height: 5'2.00" Weight: 163lbs. 0.0oz. 73.024387af; 32.00 BMI Method:Stated General Appearance: WD/WN, Other (only answers questions with one word answers. Keeps eyes closed. When i try to open eyelids to evaluate pupils she keeps eye lids closed against resistance. ) Eyes: Bilateral Eye Normal Inspection, Bilateral Eye PERRL, Bilateral Eye EOMI HEENT: PERRL/EOMI, TMs Normal Neck: Full Range of Motion, Normal Inspection Respiratory: No Accessory Muscle Use, No Respiratory Distress Cardiovascular: Regular Rate, Rhythm, Normal Peripheral Pulses Gastrointestinal: Non Tender, Soft Extremity: Normal Capillary Refill, Normal Inspection Neurologic/Psychiatric: Alert Skin: Normal Color, Warm/Dry Focused Exam Lactate Level 03/05/19 17:20: Lactic Acid Level 0.78 Lactic Acid Level Laboratory Tests Test 03/05/19 17:20 Lactic Acid Level 0.78 MMOL/L (0.50-2.00) Progress/Results/Core Measures Suspected Sepsis SIRS Temperature: Pulse: Respiratory Rate: Laboratory Tests 03/05/19 17:20: White Blood Count 7.6 Blood Pressure / Mean: 03/05/19 17:20: Lactic Acid Level 0.78 Laboratory Tests 03/05/19 17:20: Creatinine 0.72, Platelet Count 320, Total Bilirubin 0.2 Results/Orders Lab Results Laboratory Tests Test 03/05/19 16:40 03/05/19 17:20 Range/Units Urine Color YELLOW Urine Clarity CLEAR Urine pH 5.5 5-9 Urine Specific [place] 1.020 1.016-1.022 Urine Protein NEGATIVE NEGATIVE Urine Glucose (UA) NEGATIVE NEGATIVE Urine Ketones NEGATIVE NEGATIVE Urine Nitrite NEGATIVE NEGATIVE Urine Bilirubin NEGATIVE NEGATIVE Urine Urobilinogen 0.2 < = 1.0 MG/DL Urine Leukocyte Esterase NEGATIVE NEGATIVE Urine RBC (Auto) NEGATIVE NEGATIVE Urine RBC 0-2 /HPF Urine WBC 5-10 H /HPF Urine Crystals NONE /LPF Urine Bacteria TRACE /HPF Urine Casts NONE /LPF Urine Mucus NEGATIVE /LPF Urine Culture Indicated NO White Blood Count 7.6 4.3-11.0 10^3/uL Red Blood Count 4.37 4.35-5.85 10^6/uL Hemoglobin 9.7 L 11.5-16.0 G/DL Hematocrit 32 L 35-52 % Mean Corpuscular Volume 73 L 80-99 FL Mean Corpuscular Hemoglobin 22 L 25-34 PG Mean Corpuscular Hemoglobin Concent 31 L 32-36 G/DL Red Cell Distribution Width 18.9 H 10.0-14.5 % Platelet Count 320 130-400 10^3/uL Mean Platelet Volume 10.8 H 7.4-10.4 FL Neutrophils (%) (Auto) 66 42-75 % Lymphocytes (%) (Auto) 21 12-44 % Monocytes (%) (Auto) 9 0-12 % Eosinophils (%) (Auto) 4 0-10 % Basophils (%) (Auto) 0 0-10 % Neutrophils # (Auto) 5.0 1.8-7.8 X 10^3 Lymphocytes # (Auto) 1.6 1.0-4.0 X 10^3 Monocytes # (Auto) 0.7 0.0-1.0 X 10^3 Eosinophils # (Auto) 0.3 0.0-0.3 10^3/uL Basophils # (Auto) 0.0 0.0-0.1 10^3/uL Sodium Level 132 L 135-145 MMOL/L Potassium Level 4.7 3.6-5.0 MMOL/L Chloride Level 103 98-107 MMOL/L Carbon Dioxide Level 22 21-32 MMOL/L Anion Gap 7 5-14 MMOL/L Blood Urea Nitrogen 21 H 7-18 MG/DL Creatinine 0.72 0.60-1.30 MG/DL Estimat Glomerular Filtration Rate > 60 BUN/Creatinine Ratio 29 Glucose Level 124 H 70-105 MG/DL Lactic Acid Level 0.78 0.50-2.00 MMOL/L Calcium Level 9.3 8.5-10.1 MG/DL Corrected Calcium 9.6 8.5-10.1 MG/DL Magnesium Level 2.0 1.6-2.4 MG/DL Total Bilirubin 0.2 0.1-1.0 MG/DL Aspartate Amino Transf (AST/SGOT) 13 5-34 U/L Alanine Aminotransferase (ALT/SGPT) 10 0-55 U/L Alkaline Phosphatase 69 40-136 U/L Total Protein 6.1 L 6.4-8.2 GM/DL Albumin 3.6 3.2-4.5 GM/DL My Orders Orders - ALFREDO JOSÉ APRN Cbc With Automated Diff (03/05/19 16:29) Comprehensive Metabolic Panel (03/05/19 16:29) Protime With Inr (03/05/19 16:29) Ua Culture If Indicated (03/05/19 16:29) Blood Culture (03/05/19 16:29) Ct Head Wo (03/05/19 16:29) Chest 1 View, Ap/Pa Only (03/05/19 16:29) Lactic Acid Analyzer (03/05/19 16:29) Thyroid Stimulating Hormone (03/05/19 16:37) Free T4 (Free Thyroxine) (03/05/19 16:37) Magnesium (03/05/19 16:37) Ondansetron Injection (Zofran Injectio (03/05/19 17:00) Ceftriaxone For Iv Use (Rocephin For I (03/05/19 17:15) Medications Given in ED Current Medications Medications Dose Ordered Sig/Perez Route Start Time Stop Time Status Last Admin Dose Admin Ondansetron HCl 4 mg ONCE ONCE IVP 03/05/19 17:00 03/05/19 17:01 DC 03/05/19 17:02 4 MG Vital Signs/I&O 03/05/19 16:25 Temp 36.6 Pulse 83 Resp 18 B/P (MAP) 142/57 (85) Pulse Ox 96 O2 Delivery Nasal Cannula O2 Flow Rate 3.00 Capillary Refill : Departure Impression Primary Impression: Urinary tract infection Qualified Codes: N39.0 - Urinary tract infection, site not specified Additional Impression: Weakness Disposition: 01 HOME, SELF-CARE Condition: Stable Departure-Patient Inst. Decision time for Depature: 17:59 Referrals: TORIBIO FOFANA DO (PCP/Family) Primary Care Physician Patient Instructions: Urinary Tract Infection, Adult (DC) Add. Discharge Instructions: 1. Resume the Bactrim tomorrow to finish off the course of antibiotics. Return to ER for any concerns. Copy Copies To 1: TORIBIO FOFANA PETER J APRN Mar 05, 2019 16:36
[2019-03-05 16:50] LABS: BILIRUBIN,URINE NEGATIVE (NEGATIVE); CLARITY,URINE CLEAR; COLOR,URINE YELLOW; GLUCOSE, URINE (UA) NEGATIVE (NEGATIVE); KETONES,URINE NEGATIVE (NEGATIVE); LEUKOCYTE ESTERASE ,URINE NEGATIVE (NEGATIVE); NITRITE,URINE NEGATIVE (NEGATIVE); PH,URINE 5.5 (5-9); PROTEIN,URINE NEGATIVE (NEGATIVE)
[2019-03-05] MEDS ORDERED: ONDANSETRON 4 MG/2 ML (SDV) Z0FRAN IVP ONE (17:00)
[2019-03-05 17:05] LABS: RBC,URINE 0-2 /HPF
[2019-03-05 17:06] LABS: BACTERIA,URINE TRACE /HPF
[2019-03-05] MEDS ORDERED: cefTRIAXone FOR IV USE 1,000 MG in WATER (STERILE) FOR INJECTION 10 ML IV ONE (17:15)
--- NOTE | 2019-03-05 17:15 | Diagnostic Imaging Report ---
INDICATION: Lethargy. TIME OF EXAM: 5:03 p.m. COMPARISON: Correlation is made with prior chest from 01/30/2019. FINDINGS: Heart size is stable. Lungs are clear. The pulmonary vascularity is normal. No infiltrate or failure is detected. There is no effusion or pneumothorax. Multilevel kyphoplasty changes in the lower thoracic spine are noted. IMPRESSION: No acute cardiopulmonary process is detected. Dictated by: Dictated on workstation # [id number]
[2019-03-05 17:34] LABS: BASOPHILS % (AUTO) 0 % (0-10); EOSINOPHILS # (AUTO) 0.3 10^3/uL (0.0-0.3); EOSINOPHILS % (AUTO) 4 % (0-10); HEMATOCRIT 32 % (35-52); HEMOGLOBIN 9.7 G/DL (11.5-16.0); LYMPHOCYTES # (AUTO) 1.6 X 10^3 (1.0-4.0); LYMPHOCYTES % (AUTO) 21 % (12-44); MEAN CORPUSCULAR HEMOGLOBIN 22 PG (25-34); MEAN CORPUSCULAR HGB CONC 31 G/DL (32-36); MEAN CORPUSCULAR VOLUME 73 FL (80-99); MEAN PLATELET VOLUME 10.8 FL (7.4-10.4); MONOCYTES # (AUTO) 0.7 X 10^3 (0.0-1.0); MONOCYTES % (AUTO) 9 % (0-12); NEUTROPHILS % (AUTO) 66 % (42-75); PLATELET COUNT 320 10^3/uL (130-400); RED CELL DISTRIBUTION WIDTH 18.9 % (10.0-14.5); WHITE BLOOD COUNT 7.6 10^3/uL (4.3-11.0)
[2019-03-05 17:57] LABS: ALANINE AMINOTRANSFERASE 10 U/L (0-55); ALBUMIN 3.6 GM/DL (3.2-4.5); ALKALINE PHOSPHATASE 69 U/L (40-136); BILIRUBIN,TOTAL 0.2 MG/DL (0.1-1.0); BUN/CREATININE RATIO 29; CALCIUM 9.3 MG/DL (8.5-10.1); CARBON DIOXIDE 22 MMOL/L (21-32); CHLORIDE 103 MMOL/L (98-107); CREATININE SERUM 0.72 MG/DL (0.60-1.30); GFR ESTIMATED > 60; GLUCOSE 124 MG/DL (70-105); POTASSIUM 4.7 MMOL/L (3.6-5.0); SODIUM 132 MMOL/L (135-145); TOTAL PROTEIN 6.1 GM/DL (6.4-8.2)
[2019-03-05 17:59] LABS: PROTHROMBIN TIME PATIENT 13.3 SEC (12.2-14.7)
[2019-03-05 18:19] LABS: FREE T4 (FREE THYROXINE) 1.02 NG/DL (0.70-1.48)
--- NOTE | 2019-03-05 18:31 | Diagnostic Imaging Report ---
PROCEDURE: CT head without contrast. TECHNIQUE: Multiple contiguous axial images were obtained through the brain without the use of intravenous contrast. Auto Exposure Controls were utilized during the CT exam to meet ALARA standards for radiation dose reduction. INDICATION: Confusion. Correlation made with prior head CT from 01/26/2019. Ventricles and sulci are consistent with the patient's age. Moderate periventricular and subcortical hypodensity persists consistent with senescent change. There is no sulcal effacement or midline shift. No acute intra-axial or extra-axial hemorrhage is detected. Cisterns are patent. Visualized paranasal sinuses are clear apart from minimal fluid right maxillary sinus. IMPRESSION: Senescent changes. No acute intracranial process is detected. Dictated by: Dictated on workstation # [id number]
[2019-03-05 18:36] VITALS: BP 142/57
== END 2019-03-05 18:43 | disposition home or self-care (01) ==
LOC: EDUNIT# 16:24 → ER 16:26
DX: N39.0 Urinary tract infection, site not specified (principal); R53.1 Weakness; I10 Essential (primary) hypertension; E78.00 Pure hypercholesterolemia, unspecified; I25.2 Old myocardial infarction; I25.10 Atherosclerotic heart disease of native coronary artery without angina pectoris; K21.0 Gastro-esophageal reflux disease with esophagitis; M81.0 Age-related osteoporosis without current pathological fracture; E03.9 Hypothyroidism, unspecified; F41.9 Anxiety disorder, unspecified; F32.9 Major depressive disorder, single episode, unspecified; Z82.49 Family history of ischemic heart disease and other diseases of the circulatory system; Z87.440 Personal history of urinary (tract) infections; Z90.710 Acquired absence of both cervix and uterus; Z86.718 Personal history of other venous thrombosis and embolism; Z79.82 Long term (current) use of aspirin; Z79.02 Long term (current) use of antithrombotics/antiplatelets; Z87.891 Personal history of nicotine dependence; Z90.49 Acquired absence of other specified parts of digestive tract; Z95.5 Presence of coronary angioplasty implant and graft; Z90.89 Acquired absence of other organs
CPT/HCPCS: 36415; 70450; 71045; 80053; 81000; 83605; 83735; 84439; 84443; 85025; 85610; 87040; 87804; 96374; 96375

== ENCOUNTER 2019-05-12 02:53 | Inpatient (IN) | payer MEDICARE, MEDICAID ==
[~2019-05-12] VITALS: Ht 158 cm; Wt 69.0 kg
[2019-05-12] VITALS (7 sets, daily range): BP systolic 106–161; BP diastolic 52–91
[~2019-05-12 02:53] MED LIST changes: +ACHYD1T PO; -HYDR-3820 PO; +ROPI1TAB PO; -ROPI1TAB2 PO
[2019-05-12] MEDS ORDERED: NS IV 1000 ML 1,000 ML IV SCH (02:59)
--- NOTE | 2019-05-12 03:07 | ED Fall/Injury ---
General Stated Complaint: FELL Source: patient, EMS Exam Limitations: clinical condition History of Present Illness Date Seen by Provider: May 12, 2019 Time Seen by Provider: 02:47 Initial Comments Patient presents to ER by EMS from home with chief complaint that she says she took some sleeping pills last night and then slid out of bed trying to get up landing on her rump. She does not give much history as well as she struck her head or loss consciousness. She is somnolent but does awaken with noxious stimuli and answer questions. She denies any pain except for in her thoracic back and low back. She has a history of chronic pain. She uses oxycodone for her back pain. She does have a history of multiple UTIs in the past. Her caregiver met the EMS at her house and said she is about at her baseline. She has in-home caregiver during the week but not on the weekends. Her caregiver suspects that she will take extra sleeping pills on the weekends. She takes Plavix and aspirin. Allergies and Home Medications Allergies Coded Allergies: No Known Drug Allergies (Unverified , 10/31/18) Home Medications Albuterol Sulfate 18 Gm Hfa.aer.ad, 2 PUFF IH Q6H PRN for WHEEZING, (Reported) Albuterol Sulfate 2.5 Mg/3 Ml Vial.neb, 2.5 MG INH Q4H PRN for WHEEZING Prescribed by: RADHA RIVAS on 01/31/19138 Aspirin 81 Mg Tablet.dr, 81 MG PO DAILY, (Reported) Clopidogrel Bisulfate 75 Mg Tablet, 75 MG PO DAILY, (Reported) Duloxetine HCl 60 Mg Capsule.dr, 60 MG PO DAILY, (Reported) Fesoterodine Fumarate 4 Mg Tab.sr.24h, 4 MG PO DAILY, (Reported) Fluticasone Propionate 16 Gm [place].susp, 1 SPRAY NS BID PRN for ALLERGIES, (Reported) Levothyroxine Sodium 112 Mcg Tablet, 112 MCG PO DAILY, (Reported) Lorazepam 1 Mg Tablet, 1 MG PO TID PRN for ANXIETY, (Reported) Nitrofurantoin Monohyd/M-Cryst 100 Mg Capsule, 1 TAB PO BID Prescribed by: RADHA RIVAS on 01/31/19138 Nitroglycerin 0.4 Mg Tab.subl, 0.4 MG SL UD PRN for CHEST PAIN, (Reported) Pregabalin 150 Mg Capsule, 150 MG PO BID, (Reported) Sucralfate 1 Gm Tablet, 1 GM PO QID, (Reported) Temazepam 15 Mg Capsule, 30 MG PO HS, (Reported) TAKES 2 (15MG) CAPSULES Patient Home Medication List Home Medication List Reviewed: Yes Review of Systems Review of Systems Constitutional: see HPI (Limited review of systems secondary to patient's somnolence); No chills, No fever Eyes: Denies Blindness, Denies Blurred Vision Ears, Nose, Mouth, Throat: denies ear pain, denies ear discharge Respiratory: No cough, No short of breath Cardiovascular: No edema, No syncope All Other Systems Reviewed Negative Unless Noted: Yes Past Ynwyuxd-Hyrvry-Gidahx Hx Patient Social History Alcohol Use: Denies Use Recreational Drug Use: No Drug of Choice: denies Smoking Status: Former Smoker Type Used: Cigarettes Former Smoker, Quit: Mar 26, 1996 2nd Hand Smoke Exposure: No Recent Hopitalizations: No Immunizations Up To Date Tetanus Booster (TDap): Unknown PED Vaccines UTD: Yes Date of Pneumonia Vaccine: Apr 22, 2009 Date of Influenza Vaccine: Nov 20, 2017 Seasonal Allergies Seasonal Allergies: Yes Past Medical History Surgeries: Yes Abdominal, Appendectomy, Bladder Surgery, Bowel Surgery, Cardiac, Coronary Stent, Hysterectomy, Oophorectomy, Orthopedic, Tonsillectomy Respiratory: Yes (O2 AT HS) Pulmonary Embolism, Sleep Apnea, COPD Currently Using CPAP: No Currently Using BIPAP: No Cardiac: Yes (CARDIAC CATH WITH STENTS X 2) Chronic Edema/Swelling, Coronary Artery Disease, Deep Vein Thrombosis, Heart Attack, High Cholesterol, Hypertension Neurological: Yes Vertigo 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 Disorders: No 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, 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 Genitourinary: Yes (INCONTINENCE) Kidney Infection, Bladder Infection, UTI-Chronic Gastrointestinal: Yes Abdominal Hernia, Gastroesophageal Reflux, Diverticulosis, Esophagitis Musculoskeletal: Yes Osteoporosis, Arthritis, Chronic Back Pain, Fractures Endocrine: Yes Hypothyroidsim HEENT: Yes ( DENTURES) Dysphagia Loss of Vision: Denies Hearing Impairment: Denies Cancer: No Psychosocial: Yes Anxiety, Depression Integumentary: No Blood Disorders: No Adverse Reaction/Blood Tranf: No Family Medical History Family history: Hypertension G8 BROTHER Myocardial infarction 19 MOTHER G8 BROTHER Physical Exam Vital Signs Vital Signs - First Documented 05/12/19 02:55 Temp 36.5 Pulse 70 Resp 20 B/P (MAP) 128/64 (85) O2 Delivery Room Air Capillary Refill : Height, Weight, BMI Height: 5'2.00" Weight: 163lbs. 0.0oz. 73.052723uq; 29.00 BMI Method:Stated General Appearance: WD/WN, mild distress HEENT: PERRL/EOMI, normal ENT inspection (negative for Alex sign or raccoon eyes), TMs normal; No pharynx normal (oropharynx is dry) Neck: non-tender, full range of motion, supple, normal inspection Cardiovascular: normal peripheral pulses, regular rate, rhythm, no edema Respiratory: lungs clear, normal breath sounds, no respiratory distress, no accessory muscle use Peripheral Pulses: 2+ Radial Pulses (R), 2+ Radial Pulses (L) Gastrointestinal: normal bowel sounds, non tender, soft Back: normal inspection, vertebral tenderness (thoracic and lumbar spine midline without step-off or deformity.) Extremities: normal range of motion, normal inspection, normal capillary refill [place] Coma Score Best Eye Response: (3) Open to Voice Best Verbal Response: (4) Confused Conversation Best Motor Response: (6) Obeys Commands [place] Total: 13 Progress/Results/Core Measures Results/Orders Lab Results Laboratory Tests Test 05/12/19 03:35 05/12/19 03:40 Range/Units White Blood Count 7.9 4.3-11.0 10^3/uL Red Blood Count 3.75 L 4.35-5.85 10^6/uL Hemoglobin 7.5 L 11.5-16.0 G/DL Hematocrit 26 L 35-52 % Mean Corpuscular Volume 69 L 80-99 FL Mean Corpuscular Hemoglobin 20 L 25-34 PG Mean Corpuscular Hemoglobin Concent 29 L 32-36 G/DL Red Cell Distribution Width 18.2 H 10.0-14.5 % Platelet Count 345 130-400 10^3/uL Mean Platelet Volume 10.4 7.4-10.4 FL Neutrophils (%) (Auto) 61 42-75 % Lymphocytes (%) (Auto) 25 12-44 % Monocytes (%) (Auto) 10 0-12 % Eosinophils (%) (Auto) 4 0-10 % Basophils (%) (Auto) 0 0-10 % Neutrophils # (Auto) 4.8 1.8-7.8 X 10^3 Lymphocytes # (Auto) 2.0 1.0-4.0 X 10^3 Monocytes # (Auto) 0.8 0.0-1.0 X 10^3 Eosinophils # (Auto) 0.3 0.0-0.3 10^3/uL Basophils # (Auto) 0.0 0.0-0.1 10^3/uL Sodium Level 135 135-145 MMOL/L Potassium Level 3.8 3.6-5.0 MMOL/L Chloride Level 103 98-107 MMOL/L Carbon Dioxide Level 25 21-32 MMOL/L Anion Gap 7 5-14 MMOL/L Blood Urea Nitrogen 15 7-18 MG/DL Creatinine 0.76 0.60-1.30 MG/DL Estimat Glomerular Filtration Rate > 60 BUN/Creatinine Ratio 20 Glucose Level 100 70-105 MG/DL Calcium Level 8.9 8.5-10.1 MG/DL Corrected Calcium 9.3 8.5-10.1 MG/DL Total Bilirubin 0.3 0.1-1.0 MG/DL Aspartate Amino Transf (AST/SGOT) 8 5-34 U/L Alanine Aminotransferase (ALT/SGPT) 7 0-55 U/L Alkaline Phosphatase 72 40-136 U/L Ammonia 25 11-32 UMOL/L C-Reactive Protein High Sensitivity 0.10 0.00-0.50 MG/DL Total Protein 5.8 L 6.4-8.2 GM/DL Albumin 3.5 3.2-4.5 GM/DL Serum Alcohol < 10 <10 MG/DL Urine Color YELLOW Urine Clarity CLEAR Urine pH 6.0 5-9 Urine Specific [place] 1.010 L 1.016-1.022 Urine Protein NEGATIVE NEGATIVE Urine Glucose (UA) NEGATIVE NEGATIVE Urine Ketones NEGATIVE NEGATIVE Urine Nitrite POSITIVE H NEGATIVE Urine Bilirubin NEGATIVE NEGATIVE Urine Urobilinogen 0.2 < = 1.0 MG/DL Urine Leukocyte Esterase TRACE H NEGATIVE Urine RBC (Auto) NEGATIVE NEGATIVE Urine RBC NONE /HPF Urine WBC 2-5 /HPF Urine Squamous Epithelial Cells RARE /HPF Urine Crystals NONE /LPF Urine Bacteria MODERATE H /HPF Urine Casts NONE /LPF Urine Mucus NEGATIVE /LPF Urine Culture Indicated YES Urine Opiates Screen NEGATIVE NEGATIVE Urine Oxycodone Screen NEGATIVE NEGATIVE Urine Methadone Screen NEGATIVE NEGATIVE Urine Propoxyphene Screen NEGATIVE NEGATIVE Urine Barbiturates Screen NEGATIVE NEGATIVE Ur Tricyclic Antidepressants Screen NEGATIVE NEGATIVE Urine Phencyclidine Screen NEGATIVE NEGATIVE Urine Amphetamines Screen NEGATIVE NEGATIVE Urine Methamphetamines Screen NEGATIVE NEGATIVE Urine Benzodiazepines Screen POSITIVE H NEGATIVE Urine Cocaine Screen NEGATIVE NEGATIVE Urine Cannabinoids Screen NEGATIVE NEGATIVE My Orders Orders - ASHLEY WATTS Ed Iv/Invasive Line Start (05/12/19 02:59) Ns Iv 1000 Ml (Sodium Chloride 0.9%) (05/12/19 02:59) Ua Culture If Indicated (05/12/19 02:59) Straight Cath For Spec.-Adult (05/12/19 02:59) Cbc With Automated Diff (05/12/19 02:59) Comprehensive Metabolic Panel (05/12/19 02:59) Hs C Reactive Protein (05/12/19 02:59) Ct Head/Cervical Spine Wo (05/12/19 02:59) Ct Thoracic/Lumbar Spine Wo (05/12/19 02:59) Drug Screen Stat (Urine) (05/12/19 03:07) Alcohol (05/12/19 03:07) Ammonia (05/12/19 03:07) Chest 1 View, Ap/Pa Only (05/12/19 03:07) Urine Culture (05/12/19 03:40) Vital Signs/I&O 05/12/19 02:55 Temp 36.5 Pulse 70 Resp 20 B/P (MAP) 128/64 (85) O2 Delivery Room Air Progress Progress Note #1: Time: 03:05 Progress Note Patient is somnolent with a GCS of 13. This could be from her pain meds and sleeping medications or from intracranial pathology. Plan to get a CT of her head and neck as well as her thoracolumbar spine where she is having tenderness. Her pain in her spine could also be from her chronic back pain. She is moving all 4 extremities independently. She is not asking for anything for pain and we re going to hold off giving her anything else that might contribute to her decreased mental status. Plan to check a urine as well as basic labs. She does have a history of multiple UTIs. Progress Note #2: Time: 04:48 Progress Note We'll give her a gram of Rocephin for her UTI. We have given her some IV fluids. We will get her typed and crossed for 2 units and put her upstairs on observation. Diagnostic Imaging Diagonstic Imaging: CT (without IV contrast) Plain Films/CT/US/NM/MRI: c-spine, head Comments No calvarial fracture. No intracranial hemorrhage, mass effect, tumor or midline shift. C-spine with normal alignment and no acute fracture. Motion artifact. Reviewed: Reviewed [place] Study, Reviewed by Me Diagonstic Imaging: CT (without IV contrast) Plain Films/CT/US/NM/MRI: other (thoracolumbar spine) Comments Age indeterminate compression fracture deformities of T6, T9 and T11. Nonacute compression fractures at T8, T10 and T12 which is been treated with previous vertebral plasty. Acute appearing mild compression fractures. Endplate of L1. Minor retropulsion of the posterior endplate into the epidural space by 4 mm. No substantial spinal stenosis or paravertebral hematoma. Reviewed: Reviewed [place] Study, Reviewed by Me Diagonstic Imaging: Xray Plain Films/CT/US/NM/MRI: chest (1v) Comments Unremarkable chest x-ray. No acute osseous abnormalities noted. Reviewed: Reviewed by Me Departure Communication (Admissions) Time/Spoke to Admitting Phy: 04:40 Discussed case lab imaging findings and plans for transfusion with Dr. Galvez and he agrees with Rocephin and 2 units. Impression Primary Impression: UTI (urinary tract infection) Qualified Codes: N30.00 - Acute cystitis without hematuria Additional Impressions: Delirium due to another medical condition, acute, hypoactive Anemia Qualified Codes: D50.9 - Iron deficiency anemia, unspecified Compression fracture of L1 lumbar vertebra Qualified Codes: S32.010A - Wedge compression fracture of first lumbar vertebra, initial encounter for closed fracture Disposition: ADMITTED INPATIENT Condition: Stable Admissions Decision to Admit Reason: Admit from ER (General) Decision to Admit/Date: May 12, 2019 Time/Decision to Admit Time: 04:30 Departure-Patient Inst. Referrals: TORIBIO FOFANA DO (PCP/Family) Primary Care Physician ASHLEY WATTS May 12, 2019 03:07
[2019-05-12 03:43] LABS: BASOPHILS % (AUTO) 0 % (0-10); EOSINOPHILS # (AUTO) 0.3 10^3/uL (0.0-0.3); EOSINOPHILS % (AUTO) 4 % (0-10); HEMATOCRIT 26 % (35-52); HEMOGLOBIN 7.5 G/DL (11.5-16.0); LYMPHOCYTES % (AUTO) 25 % (12-44); MEAN CORPUSCULAR HEMOGLOBIN 20 PG (25-34); MEAN CORPUSCULAR HGB CONC 29 G/DL (32-36); MEAN CORPUSCULAR VOLUME 69 FL (80-99); MEAN PLATELET VOLUME 10.4 FL (7.4-10.4); MONOCYTES # (AUTO) 0.8 X 10^3 (0.0-1.0); MONOCYTES % (AUTO) 10 % (0-12); NEUTROPHILS # (AUTO) 4.8 X 10^3 (1.8-7.8); NEUTROPHILS % (AUTO) 61 % (42-75); PLATELET COUNT 345 10^3/uL (130-400); RED CELL DISTRIBUTION WIDTH 18.2 % (10.0-14.5); WHITE BLOOD COUNT 7.9 10^3/uL (4.3-11.0)
[2019-05-12 03:57] LABS: BILIRUBIN,URINE NEGATIVE (NEGATIVE); CLARITY,URINE CLEAR; COLOR,URINE YELLOW; GLUCOSE, URINE (UA) NEGATIVE (NEGATIVE); KETONES,URINE NEGATIVE (NEGATIVE); LEUKOCYTE ESTERASE ,URINE TRACE (NEGATIVE); NITRITE,URINE POSITIVE (NEGATIVE); PROTEIN,URINE NEGATIVE (NEGATIVE)
[2019-05-12 04:03] LABS: ALANINE AMINOTRANSFERASE 7 U/L (0-55); ALBUMIN 3.5 GM/DL (3.2-4.5); ALKALINE PHOSPHATASE 72 U/L (40-136); AMMONIA 25 UMOL/L (11-32); BILIRUBIN,TOTAL 0.3 MG/DL (0.1-1.0); BUN/CREATININE RATIO 20; CALCIUM 8.9 MG/DL (8.5-10.1); CARBON DIOXIDE 25 MMOL/L (21-32); CHLORIDE 103 MMOL/L (98-107); CREATININE SERUM 0.76 MG/DL (0.60-1.30); GFR ESTIMATED > 60; GLUCOSE 100 MG/DL (70-105); POTASSIUM 3.8 MMOL/L (3.6-5.0); SODIUM 135 MMOL/L (135-145); TOTAL PROTEIN 5.8 GM/DL (6.4-8.2)
[2019-05-12 04:07] LABS: AMPHETAMINE SCREEN, URINE NEGATIVE (NEGATIVE); BARBITURATE SCREEN URINE NEGATIVE (NEGATIVE); BENZODIAZEPINES SCREEN URINE POSITIVE (NEGATIVE); CANNABINOID SCREEN, URINE NEGATIVE (NEGATIVE); COCAINE SCREEN URINE NEGATIVE (NEGATIVE); METHADONE STAT NEGATIVE (NEGATIVE); METHAMPHETAMINE SCREEN URINE S NEGATIVE (NEGATIVE); OPIATE SCREEN URINE NEGATIVE (NEGATIVE); OXYCODONE STAT NEGATIVE (NEGATIVE); PROPOXYPHENE STAT NEGATIVE (NEGATIVE); TRICYCLIC ANTIDEPRESSANTS SCRE NEGATIVE (NEGATIVE)
[2019-05-12 04:08] LABS: BACTERIA,URINE MODERATE /HPF; SQUAMOUS EPITHELIAL CELL,UR RARE /HPF
[2019-05-12] MEDS ORDERED: cefTRIAXone FOR IV USE 1,000 MG in WATER (STERILE) FOR INJECTION 10 ML IV ONE (04:45)
[2019-05-12] MEDS ORDERED: cefTRIAXone 1,000 MG IV (ROCEPHIN) VIAL ONE (04:58)
[2019-05-12] MEDS ORDERED: WATER (STERILE) FOR INJECTION 10 ML ONE (04:58)
--- NOTE | 2019-05-12 05:59 | Diagnostic Imaging Report ---
INDICATION: Fall AP view of the chest is obtained with comparison made study of 03/05/2019. Heart size and pulmonary vascularity are within normal limits. There is no evidence of pneumothorax. There is basilar atelectasis on the left. There is a faint nodular density in the upper lobe of the left lung lateral to the aortic knob which was not definitely seen on the previous study. There has been kyphoplasty in the lower thoracic spine. IMPRESSION: Mild left basilar atelectasis. There is faint nodular density lateral to the aortic knob. This could be due to superimposition although follow-up PA and lateral views of the chest would be useful. Dictated by: Dictated on workstation # [id number]
--- NOTE | 2019-05-12 06:07 | Diagnostic Imaging Report ---
PROCEDURE: CT thoracic and lumbar spine without contrast. TECHNIQUE: Multiple contiguous axial images were obtained through the thoracic and lumbar spine without the use of intravenous contrast. Sagittal and coronal reformations were then performed.All CT scans use one or more of the following dose optimizing techniques: automated exposure control, MA and/or KvP adjustment based on a patient size and exam type, or iterative reconstruction. INDICATION: Fall with back injury CT imaging of the thoracic and lumbar spine are performed with sagittal and coronal reformatted images produced. Comparison is made to abdominal and pelvic CT dated 11/06/2018. There is left convexity curvature at the thoracolumbar junction with mild right convexity curvature of the lumbar spine. There are multiple compression fracture deformities. There has been previous vertebroplasty at T8, T10, T12 and L5. In addition, there are superior endplate compression deformities at T6, T9 and T11. These appear to have been present on study of 11/06/2018 as well. There is also mild compression deformity at L1 which was likely present previously. There is no definite new fracture. No paraspinous hematoma is identified. IMPRESSION: Multiple chronic thoracic and lumbar compression deformities multiple of which have been augmented with kyphoplasty. No obvious acute abnormality is identified. Dictated by: Dictated on workstation # [id number]
--- NOTE | 2019-05-12 06:15 | Diagnostic Imaging Report ---
PROCEDURE: CT head and CT cervical spine without contrast. TECHNIQUE: Multiple contiguous axial images were obtained through the brain and cervical spine without the use of intravenous contrast. Sagittal and coronal reformations through the cervical spine were then performed. Auto Exposure Controls were utilized during the CT exam to meet ALARA standards for radiation dose reduction. INDICATION: Fall with head and neck injuries CT HEAD: Comparison is made to study of 03/05/2019 Ventricles and sulci are prominent. There is rather extensive low-density throughout the cerebral white matter. No hemorrhage is identified. Study is somewhat limited by motion, however, there is no evidence of calvarial fracture. Paranasal sinuses are clear. IMPRESSION: Limited study reveals continued chronic white matter changes, however, no acute intracranial abnormalities identified. CT cervical spine: Cervical spinal curvature and alignment are unremarkable. There is no evidence of fracture or malalignment. No abnormal lytic or sclerotic focus is identified. There is no evidence of paraspinous hematoma. IMPRESSION: No acute abnormality is detected. Dictated by: Dictated on workstation # [id number]
[2019-05-12] MEDS ORDERED: ACETAMINOPHEN 500 MG TAB (TYLENOL) PO PRN (06:45)
[2019-05-12] MEDS ORDERED: FLU QUADRIvalent (5+ YOA) 2019-2020 (AFLURIA) 0.5 ML IM ONE (07:30)
[2019-05-12] MEDS: NS W/KCL 20 MEQ/L 1,000 ML IV SCH ×2 (07:54→21:01)
[2019-05-12] MEDS ORDERED: ENOXAPARIN 30 MG/0.3 ML (LOVENOX) SYR SC SCH (11:00)
[2019-05-12] MEDS ORDERED: diphenhydrAMINE 25 MG TAB (BENADRYL) PO PRN (11:00)
[2019-05-12] MEDS ORDERED: ONDANSETRON 4 MG (ZOFRAN) ORAL DISSOLVE TAB PO PRN (11:00)
[2019-05-12] MEDS ORDERED: ACETAMINOPHEN 325 MG TABLET PO PRN (11:00)
[2019-05-12] MEDS ORDERED: BISACODYL 10 MG SUPP (DULCOLAX) PR PRN (11:00)
[2019-05-12] MEDS ORDERED: MELATONIN 3 MG TABLET PO PRN (11:00)
[2019-05-12] MEDS ORDERED: polyethylene glycoL POWDER 17 GM (MIRALAX) PACK PO PRN (11:00)
[2019-05-12] MEDS ORDERED: ONDANSETRON 4 MG/2 ML (SDV) Z0FRAN IV PRN (11:00)
[2019-05-12] MEDS ORDERED: ANTACID SUSP 30 ML UDC (MYLANTA) PO PRN (11:00)
--- NOTE | 2019-05-12 11:08 | History & Physical-Hospitalist ---
History of Present Illness HPI/Chief Complaint April Gomez is an 79-year-old female who presented after having a fall at home. She is a poor historian. All history is obtained from ER physician and available records. She reportedly was trying to get out of bed and slid down to the floor. It was unclear as to whether she'll or not she had hit her head. She does take aspirin and Plavix. She has a caregiver at home. The caregiver reportedly told EMS that she is at her baseline. Source: RN/MD Exam Limitations: clinical condition Date Seen 05/12/19 Time Seen by a Provider: 09:05 Attending Physician Ike Frank MD PCP Eliud Brewer DO Referring Physician Date of Admission May 12, 2019 at 04:40 Home Medications & Allergies Home Medications Reviewed patient Home Medication Reconciliation performed by pharmacy medication reconciliations clinical research technician and/or nursing. Patients Allergies have been reviewed. Allergies Allergies Coded Allergies No Known Drug Allergies (Unverified10/31/18) Past Symmcjw-Rpgybg-Ngtwyl Hx Past Med/Social Hx: Reviewed Nursing Past Med/Soc Hx Patient Social History Alcohol Use: Denies Use Recreational Drug Use: No Drug of Choice: denies Smoking Status: Former Smoker Former Smoker, Quit: Mar 26, 1996 Type Used: Cigarettes 2nd Hand Smoke Exposure: No Recent Foreign Travel: No Contact w/other who traveled: No Recent Hopitalizations: No Recent Infectious Disease Expo: No Immunizations Up To Date Tetanus Booster (TDap): Unknown Pediatric: Yes Date of Pneumonia Vaccine: Apr 22, 2009 Date of Influenza Vaccine: Nov 20, 2017 Seasonal Allergies Seasonal Allergies: Yes Past Medical History Surgeries: Abdominal, Appendectomy, Bladder Surgery, Bowel Surgery, Cardiac, Coronary Stent, Hysterectomy, Oophorectomy, Orthopedic, Tonsillectomy Respiratory: Asthma, COPD, Pneumonia Currently Using CPAP: No Currently Using BIPAP: No Cardiac: Chronic Edema/Swelling, Coronary Artery Disease, Deep Vein Thrombosis, Heart Attack, High Cholesterol, Hypertension Neurological: Vertigo 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: No Hysterectomy, Menopausal Genitourinary: Kidney Infection, Bladder Infection, UTI-Chronic Gastrointestinal: Abdominal Hernia, Gastroesophageal Reflux, Diverticulosis, Esophagitis Musculoskeletal: Osteoporosis, Arthritis, Chronic Back Pain, Fractures Endocrine: Hypothyroidsim HEENT: Dysphagia Loss of Vision: Denies Hearing Impairment: Denies Psychosocial: Anxiety, Depression History of Blood Disorders: No Adverse Reaction to Blood [place]: No Family History Family history: Hypertension G8 BROTHER Myocardial infarction 19 MOTHER G8 BROTHER Review of Systems Constitutional: no symptoms reported, see HPI Physical Exam Physical Exam Vital Signs Vital Signs - First Documented 05/12/19 05/12/19 05/12/19 02:55 05:44 06:33 Temp 36.5 Pulse 70 Resp 20 B/P (MAP) 128/64 (85) Pulse Ox 96 O2 Delivery Room Air O2 Flow Rate 2.00 Capillary Refill : Less Than 3 SecondsLess Than 3 Seconds Height, Weight, BMI Height: 5'2.00" Weight: 163lbs. 0.0oz. 73.663175gs; 27.63 BMI Method:Stated General Appearance: No Apparent Distress, Chronically ill HEENT: PERRL/EOMI Neck: Normal Inspection, Supple Respiratory: Lungs Clear, Normal Breath Sounds, No Respiratory Distress Cardiovascular: Regular Rate, Rhythm, No Edema, No Murmur Gastrointestinal: Normal Bowel Sounds, Soft Extremity: Normal Inspection, Non Tender, No Pedal Edema Neurologic/Psychiatric: Other (lethargic, disoriented) Skin: Normal Color, Warm/Dry Results Results/Procedures Labs Laboratory Tests 05/12/19 03:35 Patient resulted labs reviewed. Imaging: Reviewed Imaging Report Assessment/Plan Admission Diagnosis urinary tract infection Admission Status: Observation Assessment and Plan UTI UA revealed possible urinary tract infection with positive nitrites, moderate bacteria, but only 2-5 white blood cells Urine culture pending started on ceftriaxone Fall from bed Multiple compression fractures of the thoracic and lumbar spine CT head without acute abnormalities CT spine with multiple old compression fractures, no acute findings Consult PT/OT Microcytic anemia Hemoglobin 7.5 on arrival Transfused 1 unit PRBC Only transfuse to maintain hemoglobin >7 obtain iron studies May benefit from iron infusion DVT prophylaxis: Lovenox Diagnosis/Problems Diagnosis/Problems (1) Urinary tract infection Status: Acute (2) Fall from bed, initial encounter Status: Acute (3) Microcytic anemia Status: Chronic (4) Compression fracture of vertebral column Status: Chronic Clinical Quality Measures DVT/VTE Risk/Contraindication: Risk Factor Score Per Nursin RFS Level Per Nursing on Admit: 4+=Very High IKE FRANK MD May 12, 2019 11:08
[2019-05-12] MEDS: DOCUSATE SODIUM 100 MG (COLACE) CAP PO SCH ×2 (11:41→20:06)
[2019-05-12] MEDS: PREGABALIN 150 MG (LYRICA) CAPSULE PO SCH (20:06)
[2019-05-12] MEDS ORDERED: TEMAZEPAM 7.5 MG CAP (RESTORIL) PO SCH (21:00)
[2019-05-12] MEDS ORDERED: hydrALAZINE (APESOLINE) 20 MG/ML VIAL IV STA (21:20)
[2019-05-12] MEDS ORDERED: hydrALAZINE (APESOLINE) 20 MG/ML VIAL IV PRN (21:30)
[2019-05-13] VITALS: BP 139/65
[2019-05-13 04:00] VITALS: BP 186/74
[2019-05-13 04:23] LABS: HEMOGLOBIN 9.4 G/DL (11.5-16.0)
[2019-05-13] MEDS ORDERED: cefTRIAXone 1,000 MG/SWFI 10 ML IV PUSH IV SCH ×2 (06:00)
[2019-05-13] MEDS ORDERED: LEVOTHYROXINE 112 MCG (LEVOTHROID) TAB PO SCH (06:30)
[2019-05-13 08:00] VITALS: BP 148/86
[2019-05-13] MEDS ORDERED: LORA-405 PO (08:28)
[2019-05-13] MEDS ORDERED: ROPI4TAB5 PO (08:28)
[2019-05-13] MEDS ORDERED: METO50TA7 PO (08:28)
[2019-05-13] MEDS ORDERED: PANT40TA3 PO (08:28)
[2019-05-13] MEDS: DOCUSATE SODIUM 100 MG (COLACE) CAP PO SCH (08:36)
[2019-05-13] MEDS: PREGABALIN 150 MG (LYRICA) CAPSULE PO SCH (08:36)
[2019-05-13] MEDS ORDERED: ALB0.5V INH (08:40)
[2019-05-13] MEDS ORDERED: MIRA50TA PO (08:41)
[2019-05-13] MEDS ORDERED: GUAI600T43 PO (08:41)
[2019-05-13] MEDS ORDERED: ASPIRIN E.C. 81 MG (ECOTRIN) TAB PO SCH (09:00)
[2019-05-13] MEDS ORDERED: CLOPIDOGREL 75 MG (PLAVIX) TABLET PO SCH (09:00)
[2019-05-13] MEDS ORDERED: DULoxetine 30 MG (CYMBALTA) CAP PO SCH (09:00)
[2019-05-13] MEDS ORDERED: LACT10SO46 PO (09:52)
--- NOTE | 2019-05-13 09:53 | NUR ---
SPOKE WITH THE PT, WENT THRU THE EXT MED REC AND CALLED BOTH [facility] TO COMPLETE THE MED REC. THE FOLLOWING ARE FILL DATES THAT DO NOT SHOW ON THE EXT MED HISTORY: 04-12-2019 LEVOTHYROXINE 112MCG #90/90DS 04-16-2019 MYRBETRIQ 50MG #90/90DS PT MENTIONS SHE USES AN ADVAIR 250/50 MDI-SHE SAYS SHE DOES NOT USE IT ALL THE TIME- [facility] HAS NEVER FILLED IT SO I DID NOT INCLUDE IT ON THE MED REC OTC MEDS: ASPIRIN 81 MUCINEX PRN
[2019-05-13] MEDS ORDERED: CEPH-507 PO (10:34)
--- NOTE | 2019-05-13 10:37 | Discharge Inst-Simple/Standard ---
Discharge Inst-Standard Discharge Medications New, Converted or Re-Newed RX: Transmitted to Pharmacy Patient Instructions/Follow Up Plan of Care/Instructions/FU: Please continue to take your medications as written. Please follow up with your PCP in the next week to follow up this hospital stay. Activity as Tolerated: Yes Discharge Diet: No Restrictions Return to The Hospital For: Chest pain, shortness of breath, confusion, fever, if you feel you are getting worse. MARY GORE MD May 13, 2019 10:36
[2019-05-13] MEDS ORDERED: ENOXAPARIN 40 MG/0.4 ML (LOVENOX) SYR SC SCH (11:00)
--- NOTE | 2019-05-13 11:08 | Occupational Therapy Eval ---
OT Evaluation-General/PLF Medical Diagnosis Admission Date May 12, 2019 at 12:31 Medical Diagnosis: fall Onset Date: May 12, 2019 Therapy Diagnosis Therapy Diagnosis: Decreased ADL status Height/Weight Height (Feet): 5 Height (Inches): 2.00 Weight (Pounds): 163 Weight (Ounces): 0.0 Precautions Precautions/Isolations: Fall Prevention, Standard Precautions Safety Interventions: Reorient-PRN Referral Referral Reason: Activity Tolerance, Self Care, Evaluation/Treatment, Strengthening/ROM Medical History Pertinent Medical History: Arthritis, CAD, COPD, GERD, HTN, Hypothroidism Additional Medical History chronic edema, CAD, DVT, NV, high cholesterol, HTN, chronic UTI, chronic back pain, compression fractures, COPD Current History Pt slid from EOB to floor, ER entry, caregiver states at PLOF per notes. Reviewed History: Yes Social History Home: Apartment Current Living Status: Alone Entry Into Home: Level Entry Steps Into Home: 0 ADL-Prior Level of Function SCALE: Activities may be completed with or without assistive devices. 9-Thrsrjnnzk-uiglvvv completes the activity by him/herself with no assistance from a helper. 5-Set-up or Clean-up Assistance-helper sets up or cleans up; patient completes activity. Sheldon assists only prior to or following the activity. 4-Supervision or Touching Assistance-helper provides verbal cues and/or touching/steadying and/or contact guard assistance as patient completes activity. Assistance may be provided throughout the activity or intermittently. 3-Partial/Moderate Assistance-helper does LESS THAN HALF the effort. Sheldon lifts, holds or supports trunk or limbs, but provides less than half the effort. 2-Substantial/Maximal Assistance-helper does MORE THAN HALF the effort. Sheldon lifts or holds trunk or limbs and provides more than half the effort. 7-Dsnfrjstl-eiooaa does ALL the effort. Patient does none of the effort to complete the activity. Or, the assistance of 2 or more helpers is required for the patient to complete the activity. If activity was not attempted, code reason: 7-Patient Refused. 9-Not Applicable-not attempted and the patient did not perform the activity before the current illness, exacerbation or injury. 10-Not Attempted due to Environmental Limitations-(lack of equipment, weather restraints, etc.). 88-Not Attempted due to Medical Conditions or Safety Concerns. ADL PLOF Comments Pt was Max A with most self care tasks and IADLs per pt. (receives 24/7 care at home per pt.) Self Care: Needed Some Help Functional Cognition: Needed Some Help DME/Equipment: Bath Chair, Shower DME/Equipment Comments BSC, walk in shower. Occupation: retired Drive Self: No Leisure Interests: puppy OT Current Status Subjective Pt seen in bed, agreeable to OT tx. States desire to dress, director industrial nursing present. States pt is to d/c soon. Pt states no pain. Mental Status/Objective Patient Orientation: Person, Place, Situation Attachments: Oxygen (2L) Current Glasses/Contacts: Yes Hearing Aids: No Dentures/Partials: Yes Hand Dominance: Right Upper Extremity ROM WFL BUE ADL-Treatment Eating (QC): 6 Oral Hygiene (QC): 7 Upper Body Dressing (QC): 5 Lower Body Dressing (QC): 2 On/Off Footwear (QC): 2 Other Treatments Pt bed mob with SUP. Pt completes dressing tasks EOB. States hx with clarity, states 24/ care and caregivers assist with home maintenance, home tasks and cooking, driving, and all self care. Pt completes tasks, sit to stand with SBA, ambulates with 2WW to recliner chair, sits with legs elevated and call light in lap. All needs met. Pt's son calls, states desire for OT to give instruction to director industrial nursing as son will be here soon. Nursing notified. Education OT Patient Education: Correct positioning, Modified ADL techniques, Progress toward Goal/Update tx plan Teaching Recipient: Patient Teaching Methods: Demonstration, Discussion Response to Teaching: Verbalize Understanding, Return Demonstration OT Usp Goals Chemical Process Engineer Goals 1=Demonstrate adherence to instructed precautions during ADL tasks. 2=Patient will verbalize/demonstrate understanding of assistive devices/modifications for ADL. 3=Patient will improve strength/tolerance for activity to enable patient to perform ADL's. OT Education/Plan Problem List/Assessment Assessment: No Skilled OT Needs ID'd Discharge Recommendations Plan/Recommendations: Discharge/Goals Met Therapy Discharge Recommendati: 24 Hour Supervision, Scheduled Assistance Treatment Plan/Plan of Care Treatment,Training & Education: Yes Plan of Care: OTHER (eval and d/c. ) Treatment Duration: May 13, 2019 Frequency: 1 time per week (eval and d/c.) Time/GCodes Start Time: 10:40 Stop Time: 10:53 Total Time Billed (hr/min): 13 Billed Treatment Time 1, EVL (13) d/c as pt at [facility] and receives 12/09 care. SHANE TRUJILLO OTR May 13, 2019 11:08
[2019-05-13 11:20] VITALS: BP 148/86
--- NOTE | 2019-05-13 13:10 | NUR ---
CM/SS visited with the patient for discharge planning. Plan: The patient will return home with her caregivers with transportation from the son, Valentín. The patient has private caregivers in the home from [facility]. The patient states that she has a caregiver with her from 8:30-3:30 p.m. then 4:30-all night. She reports that her son is also there for periods of time every day. The patient states that she does not have any other needs at this time.
--- NOTE | 2019-05-14 13:07 | Physician Query-Final Dx ---
ARELI NAPIER 05/14/19 1307: Final Diagnosis Give Final Diagnosis Please give Final Diagnosis MARY GORE MD 05/14/19 1404: Final Diagnosis Give Final Diagnosis UTI ARELI NAPIER May 14, 2019 13:07 MARY GORE MD May 14, 2019 14:04
== END 2019-05-13 11:21 | disposition home or self-care (01) | DRG 690 ==
LOC: EDUNIT# 02:53 → ER 02:55 → 4TH 04:40 → OBSVTOIN 12:31
PROVIDERS: ADMIT Internal Medicine; ATTEND Internal Medicine
DX: N39.0 Urinary tract infection, site not specified (principal); F05 Delirium due to known physiological condition; D50.9 Iron deficiency anemia, unspecified; M54.6 Pain in thoracic spine; M54.5 Low back pain; R40.0 Somnolence; I25.10 Atherosclerotic heart disease of native coronary artery without angina pectoris; I10 Essential (primary) hypertension; Z66 Do not resuscitate; E78.00 Pure hypercholesterolemia, unspecified; J44.9 Chronic obstructive pulmonary disease, unspecified; G47.30 Sleep apnea, unspecified; J30.2 Other seasonal allergic rhinitis; R60.9 Edema, unspecified; E03.9 Hypothyroidism, unspecified; F41.9 Anxiety disorder, unspecified; F32.9 Major depressive disorder, single episode, unspecified; K21.9 Gastro-esophageal reflux disease without esophagitis; R13.10 Dysphagia, unspecified; M19.91 Primary osteoarthritis, unspecified site; M81.0 Age-related osteoporosis without current pathological fracture; I25.2 Old myocardial infarction; Z86.711 Personal history of pulmonary embolism; Z86.718 Personal history of other venous thrombosis and embolism; Z95.5 Presence of coronary angioplasty implant and graft; Z87.891 Personal history of nicotine dependence; Z79.02 Long term (current) use of antithrombotics/antiplatelets; Z79.82 Long term (current) use of aspirin; W06.XXXA Fall from bed, initial encounter; Y92.003 Bedroom of unspecified non-institutional (private) residence as the place of occurrence of the external cause
CPT/HCPCS: 36415; 51701; 70450; 71045; 72125; 72128; 72131; 80053; 80306; 80320; 81000; 82140; 82728; 82962; 83540; 85014; 85018; 85025; 86141; 86850; 86900; 86901; 86920; 87077; 87088; 87184; 87186

== ENCOUNTER → 2019-06-26 | Outpatient (CLI) | payer MEDICARE, MEDICAID ==
[~2019-06-26] MED LIST changes: +ALB0.5V INH; +CEPH-507 PO; +GUAI600T43 PO; +LACT10SO46 PO; +LORA-405 PO
--- NOTE | 2019-06-26 16:01 | Diagnostic Imaging Report ---
PROCEDURE: US left lower extremity venous. TECHNIQUE: Multiple real-time grayscale images were obtained over the left lower extremity in various projections. Additional duplex Doppler and color Doppler images were also obtained. INDICATION: Leg pain and swelling. FINDINGS: The previous left lower extremity venous Doppler exam of 06/04/2016 failed to show any sign of a deep venous thrombosis. There is generally good blood flow and compressibility at all levels. There is no evidence for a deep venous thrombosis. IMPRESSION: There is no evidence for a deep venous thrombosis of the left lower extremity. Dictated by: Dictated on workstation # [id number]
== END ==
LOC: RAD 14:29
PROVIDERS: ATTEND Internal Medicine
DX: R60.0 Localized edema (principal); R13.10 Dysphagia, unspecified

== ENCOUNTER 2019-07-05 07:39 | Outpatient (RCR) | payer MEDICARE, MEDICAID ==
[~2019-07-05] VITALS: Ht 157 cm; Wt 79.0 kg
[~2019-07-05 07:39] MED LIST changes: -DOXY100C PO
[2019-07-09] MEDS ORDERED: PHEN-640 PO (07:33)
[2019-07-09] MEDS ORDERED: DOXY100C PO (08:04)
== END 2019-07-05 16:00 | disposition home or self-care (01) ==
LOC: PREOP 07:39
PROVIDERS: ATTEND Urology
DX: Z01.818 Encounter for other preprocedural examination (principal); Z01.812 Encounter for preprocedural laboratory examination; Z11.59 Encounter for screening for other viral diseases
CPT/HCPCS: 87635

== ENCOUNTER → 2019-07-05 | Outpatient (CLI) | payer MEDICARE, MEDICAID ==
[~2019-07-05] MED LIST changes: +BIOT10TA PO; +DOXY100C PO; +PREG150C46 PO; +PROM25TA14 PO; +SLM50DS IH; +SUCR1TAB36 PO; +VENL37.52 PO
--- NOTE | 2019-07-05 10:27 | Diagnostic Imaging Report ---
PROCEDURE: MRI lumbar spine. TECHNIQUE: Multiplanar, multisequence MRI of the lumbar spine was performed without contrast. INDICATION: Chronic back pain. History of multiple previous fractures with subsequent kyphoplasty. COMPARISON: 05/15/2018 FINDINGS: Evaluation of static alignment demonstrates moderate reverse S shaped scoliotic deformity of the lower thoracic and lumbar spine. Evaluation of AP static alignment shows slight grade 1 retrolisthesis at L1-L2 and slight grade 1 anterolisthesis at L3-L4. There is no evidence of jumped facets. There is multilevel vertebral body height loss consistent with multiple old fractures of the lower thoracic and lumbar spine. Patient is also status post previous multilevel methylmethacrylate augmentation. Evaluation of marrow signal on today's exam, however demonstrates no evidence of acute fracture. There is no marrow edema. Multilevel intervertebral disc height loss is also pronounced. There is also multilevel anterior and posterior disc bulging. Visualized portions of the distal cord are unremarkable. Conus terminates at approximately the L2 level. No abnormal intrathecal filling defects are seen. Pre and paravertebral soft tissue structures are unremarkable. Axial images demonstrate the following: T11-T12: There is slight broad-based posterior disc bulge and bilateral facet arthropathy. As a result, there is minimal narrowing of the spinal canal and right neural foramen. Left neural foramen is unremarkable. T12-L1: There is broad-based posterior disc osteophyte complex formation and bilateral facet arthropathy. As a result, there is moderate narrowing of the spinal canal and right neural foramen. Mild narrowing is also noted on the left. L1-L2: There is broad-based posterior disc bulge and bilateral facet arthropathy. As a result, there is ivzb-fw-pjxaobfx narrowing of the spinal canal and mild narrowing of bilateral neural foramen. L2-L3: There is broad-based posterior disc bulge, eccentric to the left. There is also bilateral facet arthropathy. As a result, there is mild narrowing of spinal canal and right neural foramen. Moderate stenosis is also noted on the left. L3-L4: There is mild broad-based posterior disc bulge and bilateral facet arthropathy and ligamentum flavum laxity. As a result, there is flwp-qp-aajhgrpp narrowing of the spinal canal and bilateral neural foramen. L4-L5: There is broad-based posterior disc bulge with bilateral facet arthropathy. As a result, there is mild narrowing of spinal canal and right neural foramen. Moderate stenosis is also noted on the left. L5-S1: There is no large disc bulge or focal protrusion. There is bilateral facet arthropathy. As a result, there is mild narrowing of bilateral neural foramen. Spinal canal is unremarkable. IMPRESSION: 1. Multilevel degenerative changes of the lumbar spine as described above. 2. Multiple old fracture deformities of the lower thoracic and lumbar spine with previous cement augmentation, but no evidence of new acute fracture or dislocation. Dictated by: Dictated on workstation # [id number]
== END ==
LOC: RAD 09:12
PROVIDERS: ATTEND Internal Medicine
DX: S22.009S Unspecified fracture of unspecified thoracic vertebra, sequela (principal); M47.816 Spondylosis without myelopathy or radiculopathy, lumbar region; M51.36 Other intervertebral disc degeneration, lumbar region; M51.26 Other intervertebral disc displacement, lumbar region
CPT/HCPCS: 72148

== ENCOUNTER 2019-07-17 14:41 | Emergency (ER) | payer MEDICARE, MEDICAID ==
[2019-07-17] VITALS (8 sets, daily range): BP systolic 130–154; BP diastolic 57–80
[~2019-07-17] VITALS: Ht 167 cm; Wt 75.0 kg
[~2019-07-17 14:41] MED LIST changes: +DOXY100C PO
[2019-07-17 15:10] LABS: BASOPHILS % (AUTO) 0 % (0-10); EOSINOPHILS # (AUTO) 0.2 10^3/uL (0.0-0.3); EOSINOPHILS % (AUTO) 4 % (0-10); HEMATOCRIT 24 % (35-52); LYMPHOCYTES # (AUTO) 1.3 X 10^3 (1.0-4.0); LYMPHOCYTES % (AUTO) 23 % (12-44); MEAN CORPUSCULAR HEMOGLOBIN 19 PG (25-34); MEAN CORPUSCULAR HGB CONC 28 G/DL (32-36); MEAN CORPUSCULAR VOLUME 69 FL (80-99); MEAN PLATELET VOLUME 10.6 FL (7.4-10.4); MONOCYTES # (AUTO) 0.6 X 10^3 (0.0-1.0); MONOCYTES % (AUTO) 11 % (0-12); NEUTROPHILS # (AUTO) 3.6 X 10^3 (1.8-7.8); NEUTROPHILS % (AUTO) 63 % (42-75); PLATELET COUNT 342 10^3/uL (130-400); WHITE BLOOD COUNT 5.7 10^3/uL (4.3-11.0)
[2019-07-17 15:12] LABS: HEMOGLOBIN 6.7 G/DL (11.5-16.0)
--- NOTE | 2019-07-17 15:12 | ED General ---
General Chief Complaint: General Problems/Pain Stated Complaint: WEAKNESS Source of Information: Patient, EMS Exam Limitations: No Limitations (RADHA PAREDES MD) History of Present Illness Date Seen by Provider: July 17, 2019 Time Seen by Provider: 14:42 Initial Comments This 79-year-old woman presents to the emergency room via EMS because of weakness. She does not have air conditioning in her apartment and the heater was stuck on. EMS could not turn off the heat. Patient had been vomiting this morning and requested to come to the emergency room for evaluation. A local [employer] is working on the heating system now. Patient's temperature was 100 for EMS. She is feeling much better after getting into a cool environment and drinking some water. (RADHA PAREDES MD) Allergies and Home Medications Allergies Coded Allergies: cephalexin (Verified Allergy, Severe, CONFUSION, DIZZINESS, 07/02/19) ciprofloxacin (Verified Allergy, Intermediate, SKIN BURNING, 07/02/19) sulfamethoxazole (Verified Allergy, Intermediate, Vomiting, 07/09/19) trimethoprim (Verified Allergy, Intermediate, Vomiting, 07/09/19) erythromycin base (Verified Allergy, Unknown, 07/02/19) quinine (Verified Allergy, Unknown, 07/02/19) Home Medications Albuterol Sulfate 2.5 Mg/0.5 Ml Vial.neb, 2.5 MG INH Q6H, (Reported) Biotin 10 Mg Tablet, 10 MG PO DAILY, (Reported) Dicyclomine HCl 10 Mg Capsule, 10 MG PO PRN, (Reported) Doxycycline Hyclate 100 Mg Capsule, 100 MG PO DAILY Prescribed by: TOMAS HAYS on 07/09/19 0804 Duloxetine HCl 60 Mg Capsule.dr, 60 MG PO DAILY, (Reported) Ezetimibe 10 Mg Tablet, 10 MG PO DAILY, (Reported) Fesoterodine Fumarate 4 Mg Tab.sr.24h, 4 MG PO DAILY, (Reported) Lactulose 10 Gm/15 Ml Solution, 15 ML PO BID PRN for CONSTIPATION-3RD LINE, (Reported) Levothyroxine Sodium 112 Mcg Tablet, 112 MCG PO DAILY, (Reported) Lorazepam 1 Mg Tablet, 1 MG PO TID PRN for ANXIETY, (Reported) Metoprolol Succinate 50 Mg Tab.er.24h, 50 MG PO DAILY, (Reported) Nitroglycerin 0.4 Mg Tab.subl, 0.4 MG SL UD PRN for CHEST PAIN, (Reported) Oxycodone HCl/Acetaminophen 1 Each Tablet, 1 EACH PO Q8H PRN for PAIN-MODERATE, (Reported) Pantoprazole Sodium 40 Mg Tablet.dr, 40 MG PO DAILY, (Reported) Phenazopyridine HCl 200 Mg Tablet, 1 TAB PO TID PRN for PAIN-MILD (1-4) Prescribed by: TOMAS HAYS on 07/09/19 0733 Pregabalin 150 Mg Capsule, 150 MG PO BID, (Reported) Promethazine HCl 25 Mg Tablet, 25 MG PO Q6H PRN for NAUSEA/VOMITING, (Reported) Ropinirole HCl 4 Mg Tablet, 8 MG PO HS, (Reported) TAKES 2 (4MG) TABS TO EQUAL 8MG AT BEDTIME Salmeterol Xinafoate 50 Mcg Disk, 2 PUFF IH DAILY, (Reported) Sucralfate 1 Gm Tablet, 1 GM PO QID, (Reported) Temazepam 15 Mg Capsule, 15-30 MG PO HS PRN for SLEEP, (Reported) TAKES 1 TO 2 (15MG) CAPS AT BEDTIME NEEDED Venlafaxine HCl 37.5 Mg Cap.er.24h, 37.5 MG PO DAILY, (Reported) Patient Home Medication List Home Medication List Reviewed: Yes (RADHA PAREDES MD) Review of Systems Review of Systems Constitutional: see HPI, weakness EENTM: see HPI Respiratory: no symptoms reported Cardiovascular: no symptoms reported Gastrointestinal: see HPI Genitourinary: no symptoms reported : No Musculoskeletal: no symptoms reported Skin: no symptoms reported Psychiatric/Neurological: No Symptoms Reported Hematologic/Lymphatic: No Symptoms Reported Immunological/Allergic: no symptoms reported (RADHA PAREDES MD) Past Fwmuzrd-Zchwew-Vgdsze Hx Past Med/Social Hx: Reviewed Nursing Past Med/Soc Hx (RADHA PAREDES MD) Patient Social History Alcohol Use: Denies Use Recreational Drug Use: No Drug of Choice: denies Type Used: Cigarettes Former Smoker, Quit: Mar 26, 1996 2nd Hand Smoke Exposure: No Recent Hopitalizations: No (RADHA PAREDES MD) Immunizations Up To Date Tetanus Booster (TDap): Unknown PED Vaccines UTD: No Date of Pneumonia Vaccine: Apr 22, 2009 Date of Influenza Vaccine: Nov 26, 2018 (RADHA PAREDES MD) Seasonal Allergies Seasonal Allergies: Yes (RADHA PAREDES MD) Past Medical History Surgeries: Yes Abdominal, Appendectomy, Bladder Surgery, Bowel Surgery, Cardiac, Coronary Stent, Hysterectomy, Oophorectomy, Orthopedic, Tonsillectomy Respiratory: Yes (O2 AT HS) Pulmonary Embolism, Sleep Apnea, COPD Currently Using CPAP: No Currently Using BIPAP: No Cardiac: Yes (CARDIAC CATH WITH STENTS X 2) Chronic Edema/Swelling, Coronary Artery Disease, Deep Vein Thrombosis, Heart Attack, High Cholesterol, Hypertension Neurological: Yes Vertigo 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 Disorders: No 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, Menopausal Genitourinary: Yes (INCONTINENCE) Kidney Infection, Bladder Infection, UTI-Chronic Gastrointestinal: Yes Abdominal Hernia, Gastroesophageal Reflux, Diverticulosis, Esophagitis Musculoskeletal: Yes Osteoporosis, Arthritis, Chronic Back Pain, Fractures Endocrine: Yes Hypothyroidsim HEENT: Yes ( DENTURES) Dysphagia Loss of Vision: Denies Hearing Impairment: Denies Cancer: No Psychosocial: Yes Anxiety, Depression Integumentary: No Blood Disorders: No Adverse Reaction/Blood Tranf: No (RADHA PAREDES MD) Family Medical History Family history: Hypertension G8 BROTHER Myocardial infarction 19 MOTHER G8 BROTHER Physical Exam Vital Signs Vital Signs - First Documented 07/17/19 15:11 Temp 36.8 Pulse 98 Resp 16 B/P (MAP) 130/63 (85) Pulse Ox 97 O2 Delivery Nasal Cannula O2 Flow Rate 2.00 (ALFREDO JOSÉ APRN) Vital Signs Capillary Refill : (RADHA PAREDES MD) Height, Weight, BMI Height: 5'2.00" Weight: 163lbs. 0.0oz. 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 II-XII Norm as Tested Skin: Normal Color, Warm/Dry (RADHA PAREDES MD) Progress/Results/Core Measures Suspected Sepsis SIRS Temperature: Pulse: Respiratory Rate: Laboratory Tests 07/17/19 14:56: White Blood Count 5.7 07/17/19 15:30: White Blood Count 6.1 Blood Pressure / Mean: Laboratory Tests 07/17/19 14:56: Creatinine 0.88, Platelet Count 342, Total Bilirubin 0.3 07/17/19 15:30: Platelet Count 320 (RADHA PAREDES MD) Results/Orders Lab Results Laboratory Tests Test 07/17/19 14:56 07/17/19 15:30 Range/Units White Blood Count 5.7 6.1 4.3-11.0 10^3/uL Red Blood Count 3.51 L 3.48 L 4.35-5.85 10^6/uL Hemoglobin 6.7 *L 6.6 *L 11.5-16.0 G/DL Hematocrit 24 L 24 L 35-52 % Mean Corpuscular Volume 69 L 70 L 80-99 FL Mean Corpuscular Hemoglobin 19 L 19 L 25-34 PG Mean Corpuscular Hemoglobin Concent 28 L 27 L 32-36 G/DL Red Cell Distribution Width 19.0 H 19.1 H 10.0-14.5 % Platelet Count 342 320 130-400 10^3/uL Mean Platelet Volume 10.6 H 10.5 H 7.4-10.4 FL Neutrophils (%) (Auto) 63 42-75 % Lymphocytes (%) (Auto) 23 12-44 % Monocytes (%) (Auto) 11 0-12 % Eosinophils (%) (Auto) 4 0-10 % Basophils (%) (Auto) 0 0-10 % Neutrophils # (Auto) 3.6 1.8-7.8 X 10^3 Lymphocytes # (Auto) 1.3 1.0-4.0 X 10^3 Monocytes # (Auto) 0.6 0.0-1.0 X 10^3 Eosinophils # (Auto) 0.2 0.0-0.3 10^3/uL Basophils # (Auto) 0.0 0.0-0.1 10^3/uL Sodium Level 135 135-145 MMOL/L Potassium Level 4.7 3.6-5.0 MMOL/L Chloride Level 104 98-107 MMOL/L Carbon Dioxide Level 25 21-32 MMOL/L Anion Gap 6 5-14 MMOL/L Blood Urea Nitrogen 17 7-18 MG/DL Creatinine 0.88 0.60-1.30 MG/DL Estimat Glomerular Filtration Rate > 60 BUN/Creatinine Ratio 19 Glucose Level 142 H 70-105 MG/DL Calcium Level 9.1 8.5-10.1 MG/DL Corrected Calcium 9.5 8.5-10.1 MG/DL Magnesium Level 2.0 1.6-2.4 MG/DL Total Bilirubin 0.3 0.1-1.0 MG/DL Aspartate Amino Transf (AST/SGOT) 10 5-34 U/L Alanine Aminotransferase (ALT/SGPT) < 6 0-55 U/L Alkaline Phosphatase 72 40-136 U/L Total Protein 5.8 L 6.4-8.2 GM/DL Albumin 3.5 3.2-4.5 GM/DL (ALFREDO JOSÉ APRN) Medications Given in ED Current Medications Medications Dose Ordered Sig/Perez Route Start Time Stop Time Status Last Admin Dose Admin Fentanyl Citrate 25 mcg ONCE ONCE IVP 07/17/19 15:30 07/17/19 15:31 DC 07/17/19 16:09 25 MCG Sodium Chloride [address] @ [facility] ONCE .ROUTE 07/17/19 17:15 07/17/19 17:23 DC 07/17/19 17:45 0 MLS/HR (ALFREDO JOSÉ APRN) Vital Signs/I&O 07/17/19 07/17/19 07/17/19 07/17/19 15:11 16:52 17:45 18:00 Temp 36.8 36.5 36.4 Pulse 98 89 82 82 Resp 16 18 18 18 B/P (MAP) 130/63 (85) 131/70 (90) 130/57 132/65 Pulse Ox 97 96 99 97 O2 Delivery Nasal Cannula Nasal Cannula Nasal Cannula O2 Flow Rate 2.00 3.00 3.00 07/17/19 07/17/19 07/17/19 07/17/19 18:50 19:11 19:25 20:28 Temp 36.5 36.5 36.6 36.5 Pulse 82 84 80 75 Resp 16 16 18 18 B/P (MAP) 135/72 154/80 138/67 143/73 Pulse Ox 97 98 98 98 O2 Delivery Nasal Cannula O2 Flow Rate 3.00 07/17/19 20:29 Temp 36.5 Pulse 75 Resp 18 B/P (MAP) 143/73 Pulse Ox 98 O2 Delivery Nasal Cannula O2 Flow Rate 3.00 (ALFREDO JOSÉ APRN) Vital Signs/I&O Capillary Refill : (RADHA PAREDES MD) Progress Note : Time: 16:16 Progress Note Patient was found to be severely anemic. Blood was drawn from the site where her IV infusion was taking place. CBC was repeated from another site and the anemia was confirmed. 2 units of packed red blood cells have been ordered. Digital rectal exam was performed. No blood was found. The rectal vault was empty. Hemoccult was negative. Patient reports she has had diarrhea in recent days which she felt was excessively dark. She does have a history of gastritis, esophagitis, and esophageal spasms. She was most recently scoped by Dr. Nelson. I do not find any history of colonoscopy. She is not on any blood thinning medications. (RADHA PAREDES MD) Departure Impression Primary Impression: Severe anemia Additional Impression: Vomiting and diarrhea Disposition: HOME, SELF-CARE Condition: Improved Departure-Patient Inst. Decision time for Depature: 16:20 (RADHA PAREDES MD) Referrals: TORIBIO FOFANA DO (PCP/Family) Primary Care Physician Patient Instructions: Blood Transfusion Add. Discharge Instructions: Follow-up with your primary care provider and Dr. Nelson as soon as possible. Make arrangements for consultation for endoscopy. You need to be evaluated for possible sources of bleeding, especially with history of dark stools. Return to care if you have worsening symptoms. All discharge instructions reviewed with patient and/or family. Voiced understanding. Copy Copies To 1: TORIBIO FOFANA DO Copies To 2: LEXUS NELSON JOSHUA T MD July 17, 2019 15:12 ALFREDO JOSÉ APRN July 17, 2019 21:03
[2019-07-17 15:14] LABS: ALBUMIN 3.5 GM/DL (3.2-4.5); CHLORIDE 104 MMOL/L (98-107); POTASSIUM 4.7 MMOL/L (3.6-5.0); SODIUM 135 MMOL/L (135-145)
[2019-07-17 15:15] LABS: CALCIUM 9.1 MG/DL (8.5-10.1)
[2019-07-17 15:16] LABS: GLUCOSE 142 MG/DL (70-105); TOTAL PROTEIN 5.8 GM/DL (6.4-8.2)
[2019-07-17 15:17] LABS: CARBON DIOXIDE 25 MMOL/L (21-32)
[2019-07-17 15:18] LABS: BILIRUBIN,TOTAL 0.3 MG/DL (0.1-1.0)
[2019-07-17 15:20] LABS: ALKALINE PHOSPHATASE 72 U/L (40-136); CREATININE SERUM 0.88 MG/DL (0.60-1.30); GFR ESTIMATED > 60
[2019-07-17 15:21] LABS: BUN/CREATININE RATIO 19
[2019-07-17 15:23] LABS: ALANINE AMINOTRANSFERASE < 6 U/L (0-55)
[2019-07-17] MEDS ORDERED: fentaNYL INJECTION 100 MCG/2 ML AMP IVP ONE (15:30)
[2019-07-17 15:40] LABS: MEAN PLATELET VOLUME 10.5 FL (7.4-10.4); RED CELL DISTRIBUTION WIDTH 19.1 % (10.0-14.5); WHITE BLOOD COUNT 6.1 10^3/uL (4.3-11.0)
[2019-07-17 15:43] LABS: HEMOGLOBIN 6.6 G/DL (11.5-16.0)
[2019-07-17] MEDS ORDERED: NS IV 500 ML 500 ML ONE (17:15)
--- OUTSIDE RECORDS SUMMARY | 2019-07-17 18:20 | XMS REPORT | Clinical Summary ---
Author Author [facility] Organization [facility] Address Unknown Phone Unavailable Care Team Providers Care Lithopress Operator Name Role Phone Donna Brown RN Unavailable Unavailable Michael Mandujano MD Unavailable Alfonso Lino DO Unavailable Alfonso Keith MD Unavailable Eliud Brewer MD PCP Source Comments Some departments are not documenting in the electronic medical record. If you d o not see the information that you expected, contact Release of Information in [facility] [place] Information Management department at [phone] for further assistan ce in locating additional records.[facility] Allergies Comments Active Allergy Reactions Severity [...] needed. Active fluticasone (FLONASE) 50 Apply 1 [employer] 0 mcg/actuation nasal spray to each nostril [...] operative note) 07/2017: UDS by Dr. Mccormack ([place]): I SD, OAB, mixed incontinence 04/18/18: PE: [...] Alvarez. She is seen Dr. Mccormack, in [place], [place] who performed UDS and in 07/2017, [...] l therapy if it is available in [place], [place]. All questions were ans wered and she is amenable to the plan. Vaginal Estrace cream 3 times weekly Discontinue Myrbetriq Start Trospium 60 XR daily PFPT with external referral to [facility] in 3-4 months Restless leg syndrome [...] WELLNESS 1938 VISIT DTAP/TDAP VACCINES (1 - 1956 Tdap) PHYSICAL (COMPREHENSIVE) 1956 EXAM SHINGLES RECOMBINANT 1988 VACCINE (1 of 2) OSTEOPOROSIS 04/27/2003 SCREENING/MONITORING PNEUMONIA (PPSV23) 04/27/2003 VACCINE (1 of 1 - PPSV23) INFLUENZA VACCINE 11/21/2019 12/14/2017 Implants Device Identifier Shelf Expiration Date Model / Serial / L ot Implanted Type Area Manufactur er / / [id number] Lens-04/22/2004 Other Implanted: 04/22/2004 (Quantity not on file) Description:Intraocular lens implants / / [id number]-73/7/2004 Stent Implanted: 01/27/2004 by Karina Rosales MD (Quantity not on file) Description:prox LAD Results Not on filefrom Last 3 Months Insurance Type Payer Benefit Subscriber ID Effective Phone Address Plan / Dates Group Medicare MEDICARE MEDICARE xxxxxxxxxxx 1995- PART A AND Present B Medicaid UHC MEDICAID [place] UHC xxxxxxxxxxx 2012-P COMMUN[place]AN [place] -[phone] Advance Directives 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
== END 2019-07-17 21:11 | disposition home or self-care (01) ==
LOC: EDUNIT# 14:41 → ER 14:42
DX: D64.9 Anemia, unspecified (principal); R11.2 Nausea with vomiting, unspecified; R19.7 Diarrhea, unspecified; J44.9 Chronic obstructive pulmonary disease, unspecified; I10 Essential (primary) hypertension; E78.00 Pure hypercholesterolemia, unspecified; I25.2 Old myocardial infarction; I25.10 Atherosclerotic heart disease of native coronary artery without angina pectoris; K21.0 Gastro-esophageal reflux disease with esophagitis; M81.0 Age-related osteoporosis without current pathological fracture; M54.9 Dorsalgia, unspecified; G89.29 Other chronic pain; E03.9 Hypothyroidism, unspecified; F41.9 Anxiety disorder, unspecified; F32.9 Major depressive disorder, single episode, unspecified; Z86.718 Personal history of other venous thrombosis and embolism; Z86.711 Personal history of pulmonary embolism; Z99.81 Dependence on supplemental oxygen; Z95.5 Presence of coronary angioplasty implant and graft; Z90.49 Acquired absence of other specified parts of digestive tract; Z88.1 Allergy status to other antibiotic agents; Z88.2 Allergy status to sulfonamides; Z88.8 Allergy status to other drugs, medicaments and biological substances; Z87.891 Personal history of nicotine dependence; Z82.49 Family history of ischemic heart disease and other diseases of the circulatory system
CPT/HCPCS: 36415; 80053; 83735; 85025; 85027; 86850; 86900; 86901; 86920; 96374

== ENCOUNTER 2019-07-25 08:46 | Outpatient (RCR) | payer MEDICARE, MEDICAID ==
[~2019-07-25] VITALS: Ht 157.5 cm; Wt 77.3 kg
== END 2019-07-25 16:16 | disposition home or self-care (01) ==
LOC: PREOP 08:46
PROVIDERS: ATTEND Surgery
DX: Z01.818 Encounter for other preprocedural examination (principal); Z11.59 Encounter for screening for other viral diseases; D64.9 Anemia, unspecified
CPT/HCPCS: 87635

== ENCOUNTER 2019-07-27 12:51 | Emergency (ER) | payer MEDICARE, MEDICAID ==
[~2019-07-27] VITALS: Ht 167 cm; Wt 85.0 kg
[2019-07-27] MEDS ORDERED: NS IV 500 ML 500 ML IV ONE (13:01)
--- NOTE | 2019-07-27 13:13 | ED Abdominal Pain ---
General Chief Complaint: Abdominal/GI Problems Stated Complaint: ABD PAIN Source of Information: Patient Exam Limitations: No Limitations History of Present Illness Date Seen by Provider: Jul 27, 2019 Time Seen by Provider: 12:59 Initial Comments Here by EMS with report of lower abdominal pain and vaginal pain and burning. States she feels like she has a urinary tract infection. Recently seen for feeling weak after being in her house with the heat stuck on. She was found to be quite anemic at that point and transfused 2 units of packed red blood cells. She has appointment on Monday with Dr. Brooks for colonoscopy and upper endoscopy. Denies any concerns from that. She has not started her prep yet. States overall she feels bad related to the lower abdominal pain and vaginal pain. Timing/Duration: 12-24 Hours Severity/Quality: Moderate, Aching, Burning Location: RLQ, LLQ, Suprapubic Radiation: Other (vaginal) Activities at Onset: None Modifying Factors: Improves With Resting; Worsens With Urinating Associated Symptoms: No Back Pain, No Fever/Chills, No Nausea/Vomiting, No Shortness of Air, No Swelling/Mass in Abdomen, No Weakness Allergies and Home Medications Allergies Coded Allergies: cephalexin (Verified Allergy, Severe, CONFUSION, DIZZINESS, 07/02/19) ciprofloxacin (Verified Allergy, Intermediate, SKIN BURNING, 07/02/19) sulfamethoxazole (Verified Allergy, Intermediate, Vomiting, 07/09/19) trimethoprim (Verified Allergy, Intermediate, Vomiting, 07/09/19) erythromycin base (Verified Allergy, Unknown, 07/02/19) quinine (Verified Allergy, Unknown, 07/02/19) Home Medications Albuterol Sulfate 2.5 Mg/0.5 Ml Vial.neb, 2.5 MG INH Q6H, (Reported) Biotin 10 Mg Tablet, 10 MG PO DAILY, (Reported) Dicyclomine HCl 10 Mg Capsule, 10 MG PO PRN, (Reported) Duloxetine HCl 60 Mg Capsule.dr, 60 MG PO DAILY, (Reported) Ezetimibe 10 Mg Tablet, 10 MG PO DAILY, (Reported) Fesoterodine Fumarate 4 Mg Tab.sr.24h, 4 MG PO DAILY, (Reported) Lactulose 10 Gm/15 Ml Solution, 15 ML PO BID PRN for CONSTIPATION-3RD LINE, (Reported) Levothyroxine Sodium 112 Mcg Tablet, 112 MCG PO DAILY, (Reported) Lorazepam 1 Mg Tablet, 1 MG PO TID PRN for ANXIETY, (Reported) Metoprolol Succinate 50 Mg Tab.er.24h, 50 MG PO DAILY, (Reported) Nitroglycerin 0.4 Mg Tab.subl, 0.4 MG SL UD PRN for CHEST PAIN, (Reported) Oxycodone HCl/Acetaminophen 1 Each Tablet, 1 EACH PO Q8H PRN for PAIN-MODERATE, (Reported) Pantoprazole Sodium 40 Mg Tablet.dr, 40 MG PO DAILY, (Reported) Pregabalin 150 Mg Capsule, 150 MG PO BID, (Reported) Promethazine HCl 25 Mg Tablet, 25 MG PO Q6H PRN for NAUSEA/VOMITING, (Reported) Ropinirole HCl 4 Mg Tablet, 8 MG PO HS, (Reported) TAKES 2 (4MG) TABS TO EQUAL 8MG AT BEDTIME Salmeterol Xinafoate 50 Mcg Disk, 2 PUFF IH DAILY, (Reported) Sucralfate 1 Gm Tablet, 1 GM PO QID, (Reported) Temazepam 15 Mg Capsule, 15-30 MG PO HS PRN for SLEEP, (Reported) TAKES 1 TO 2 (15MG) CAPS AT BEDTIME NEEDED Venlafaxine HCl 37.5 Mg Cap.er.24h, 37.5 MG PO DAILY, (Reported) Patient Home Medication List Home Medication List Reviewed: Yes Review of Systems Review of Systems Constitutional: see HPI; No chills, No fever; malaise, weakness EENTM: No Symptoms Reported Respiratory: Denies Cough, Denies Shortness of Air Cardiovascular: Denies Chest Pain, Denies Edema Gastrointestinal: Abdominal Pain; Denies Nausea, Denies Vomiting Genitourinary: Burning, Pain Musculoskeletal: no symptoms reported Skin: no symptoms reported Psychiatric/Neurological: Anxiety; Denies Headache; Weakness All Other Systems Reviewed Negative Unless Noted: Yes Past Znjlope-Nyvuba-Erbjwl Hx Past Med/Social Hx: Reviewed Nursing Past Med/Soc Hx Patient Social History Alcohol Use: Denies Use Recreational Drug Use: No Drug of Choice: denies Smoking Status: Former Smoker Type Used: Cigarettes Former Smoker, Quit: Mar 26, 1996 2nd Hand Smoke Exposure: No Recent Hopitalizations: No Immunizations Up To Date Tetanus Booster (TDap): Unknown PED Vaccines UTD: No Date of Pneumonia Vaccine: Apr 22, 2009 Date of Influenza Vaccine: Nov 26, 2018 Seasonal Allergies Seasonal Allergies: Yes Past Medical History Surgeries: Yes Abdominal, Appendectomy, Bladder Surgery, Bowel Surgery, Cardiac, Coronary Stent, Hysterectomy, Oophorectomy, Orthopedic, Tonsillectomy Respiratory: Yes (O2 AT HS) Pulmonary Embolism, Sleep Apnea, COPD Currently Using CPAP: No Currently Using BIPAP: No Cardiac: Yes (CARDIAC CATH WITH STENTS X 2) Chronic Edema/Swelling, Coronary Artery Disease, Deep Vein Thrombosis, Heart Attack, High Cholesterol, Hypertension Neurological: Yes Vertigo 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 Disorders: No 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, 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 Genitourinary: Yes (INCONTINENCE) Kidney Infection, Bladder Infection, UTI-Chronic Gastrointestinal: Yes Abdominal Hernia, Gastroesophageal Reflux, Diverticulosis, Esophagitis Musculoskeletal: Yes Osteoporosis, Arthritis, Chronic Back Pain, Fractures Endocrine: Yes Hypothyroidsim HEENT: Yes ( DENTURES) Dysphagia Loss of Vision: Denies Hearing Impairment: Denies Cancer: No Psychosocial: Yes Anxiety, Depression Integumentary: No Blood Disorders: Yes (anemia) Adverse Reaction/Blood Tranf: No Family Medical History Reviewed Nursing Family Hx Family history: Hypertension G8 BROTHER Myocardial infarction 19 MOTHER G8 BROTHER Physical Exam Vital Signs Vital Signs - First Documented 07/27/19 13:44 Temp 36.5 Pulse 70 Resp 18 B/P (MAP) 154/100 Capillary Refill : Height/Weight/BMI Height: 5'2.00" Weight: 163lbs. 0.0oz. 73.003305hg; 31.16 BMI Method:Stated General Appearance: WD/WN, mild distress HEENT: PERRL/EOMI, pharynx normal Neck: full range of motion, supple Respiratory: lungs clear, normal breath sounds Cardiovascular: regular rate, rhythm, no murmur Gastrointestinal: soft; No guarding, No rebound; tenderness (suprapubic) Extremities: non-tender, pelvis stable, pedal edema (1+ bilateral lower extremities upto area just above the ankles.) Back: normal inspection, no CVA tenderness, no vertebral tenderness Neurologic/Psychiatric: alert, oriented x 3 Skin: warm/dry, pallor Progress/Results/Core Measures Results/Orders Lab Results Laboratory Tests Test 07/27/19 13:10 07/27/19 14:29 07/27/19 14:50 Range/Units Urine Color YELLOW Urine Clarity CLEAR Urine pH 7.0 5-9 Urine Specific [place] 1.010 L 1.016-1.022 Urine Protein NEGATIVE NEGATIVE Urine Glucose (UA) NEGATIVE NEGATIVE Urine Ketones NEGATIVE NEGATIVE Urine Nitrite NEGATIVE NEGATIVE Urine Bilirubin NEGATIVE NEGATIVE Urine Urobilinogen 0.2 < = 1.0 MG/DL Urine Leukocyte Esterase 3+ H NEGATIVE Urine RBC (Auto) TRACE-I NEGATIVE Urine RBC NONE /HPF Urine WBC 10-25 H /HPF Urine Squamous Epithelial Cells RARE /HPF Urine Crystals NONE /LPF Urine Bacteria TRACE /HPF Urine Casts NONE /LPF Urine Mucus NEGATIVE /LPF Urine Culture Indicated YES White Blood Count 8.3 4.3-11.0 10^3/uL Red Blood Count 4.85 4.35-5.85 10^6/uL Hemoglobin 10.8 L 11.5-16.0 G/DL Hematocrit 35 35-52 % Mean Corpuscular Volume 73 L 80-99 FL Mean Corpuscular Hemoglobin 22 L 25-34 PG Mean Corpuscular Hemoglobin Concent 31 L 32-36 G/DL Red Cell Distribution Width 24.3 H 10.0-14.5 % Platelet Count 304 130-400 10^3/uL Mean Platelet Volume 10.4 7.4-10.4 FL Neutrophils (%) (Auto) 69 42-75 % Lymphocytes (%) (Auto) 19 12-44 % Monocytes (%) (Auto) 8 0-12 % Eosinophils (%) (Auto) 4 0-10 % Basophils (%) (Auto) 0 0-10 % Neutrophils # (Auto) 5.7 1.8-7.8 X 10^3 Lymphocytes # (Auto) 1.6 1.0-4.0 X 10^3 Monocytes # (Auto) 0.7 0.0-1.0 X 10^3 Eosinophils # (Auto) 0.3 0.0-0.3 10^3/uL Basophils # (Auto) 0.0 0.0-0.1 10^3/uL Sodium Level 137 135-145 MMOL/L Potassium Level 4.2 3.6-5.0 MMOL/L Chloride Level 104 98-107 MMOL/L Carbon Dioxide Level 25 21-32 MMOL/L Anion Gap 8 5-14 MMOL/L Blood Urea Nitrogen 9 7-18 MG/DL Creatinine 0.77 0.60-1.30 MG/DL Estimat Glomerular Filtration Rate > 60 BUN/Creatinine Ratio 12 Glucose Level 91 70-105 MG/DL Calcium Level 9.0 8.5-10.1 MG/DL Corrected Calcium 9.3 8.5-10.1 MG/DL Total Bilirubin 0.5 0.1-1.0 MG/DL Aspartate Amino Transf (AST/SGOT) 12 5-34 U/L Alanine Aminotransferase (ALT/SGPT) 7 0-55 U/L Alkaline Phosphatase 85 40-136 U/L C-Reactive Protein High Sensitivity 0.19 0.00-0.50 MG/DL Total Protein 5.8 L 6.4-8.2 GM/DL Albumin 3.6 3.2-4.5 GM/DL Glucometer 93 70-110 MG/DL My Orders Orders - ISABELLA FARIAS MD Blood Culture (07/27/19 13:01) Ed Iv/Invasive Line Start (07/27/19 13:01) Ns Iv 500 Ml (Sodium Chloride 0.9%) (07/27/19 13:01) Straight Cath For Spec.-Adult (07/27/19 13:01) Red Cells Leukocytes Reduced (07/27/19 14:22) Ua Culture If Indicated (07/27/19 14:23) Type And Screen (07/27/19 14:22) D50w (Emergency) Syringe (Dextrose 50% 5 (07/27/19 14:30) Urine Culture (07/27/19 13:10) Cbc With Automated Diff (07/27/19 14:29) Comprehensive Metabolic Panel (07/27/19 14:29) Hs C Reactive Protein (07/27/19 14:29) Fluconazole Tablet (Ed Only) (Diflucan T (07/27/19 15:05) Nitrofurantoin Capsule,Macro (Macrobid C (07/27/19 15:15) Lorazepam Tablet (Ativan Tablet) (07/27/19 15:37) Medications Given in ED Current Medications Medications Dose Ordered Sig/Perez Route Start Time Stop Time Status Last Admin Dose Admin Nitrofurantoin Macrocrystals 100 mg ONCE ONCE PO 07/27/19 15:15 07/27/19 15:16 DC 07/27/19 15:44 100 MG Sodium Chloride 500 ml @ 0 mls/hr Q0M ONCE IV 07/27/19 13:01 07/27/19 13:03 DC 07/27/19 13:41 500 MLS/HR Vital Signs/I&O 07/27/19 07/27/19 13:44 13:46 Temp 36.5 36.5 Pulse 70 70 Resp 18 18 B/P (MAP) 154/100 154/100 (118) Progress Progress Note : Progress Note Seen and evaluated. IV, labs, UA via straight catheter and normal saline 500 mL bolus ordered. We will get blood cultures and lactic acid. History reveals m ultiple drug resistant Escherichia coli in the urine monitor patient. 1630: Patient had challenging ER course as initial labs were all significantly abnormal but found to be air or either through dilution or otherwise. Repeat labs show a much better picture including hemoglobin and chemistries. She does have urinary tract infection and based on discharge findings on exam, there is concerns for vaginal yeast infection. Patient given nitrofurantoin 100 mg by mouth as well as lorazepam 1 mg by mouth and Diflucan 150 mg by mouth. She feels better and would like to go home. Discharged home with return precautions. Patient verbalize understanding instructions and agreement with plan. I did verify that she would still be okay for colonoscopy and upper endoscopy while have a urinary tract infection with Dr. Hopson. Departure Impression Primary Impression: Urinary tract infection Qualified Codes: N30.00 - Acute cystitis without hematuria Additional Impression: Yeast vaginitis Disposition: 01 HOME, SELF-CARE Condition: Improved Departure-Patient Inst. Decision time for Depature: 16:35 Referrals: TORIBIO FOFANA DO (PCP/Family) Primary Care Physician Patient Instructions: Yeast Infection (DC), Urinary Tract Infection, Adult (DC) Add. Discharge Instructions: All discharge instructions reviewed with patient and/or family. Voiced understanding. Continue medications as previously prescribed. Keep follow-up appointment for colonoscopy as scheduled. Follow-up with your doctor next week for recheck and further evaluation. Return for worse pain, fever, vomiting, weakness, breathing problems or other concerns as needed. Scripts Nitrofurantoin Macrocrystal (Nitrofurantoin) 100 Mg Capsule 100 MG PO BID, #10 CAP 0 Refills Prov: ISABELLA FARIAS MD 07/27/19 ISABELLA FARIAS MD Jul 27, 2019 13:13
[2019-07-27] MEDS ORDERED: DEXTROSE 50% 50 ML (IMS) SYR IV ONE (14:30)
[2019-07-27 14:34] LABS: BILIRUBIN,URINE NEGATIVE (NEGATIVE); CLARITY,URINE CLEAR; COLOR,URINE YELLOW; GLUCOSE, URINE (UA) NEGATIVE (NEGATIVE); KETONES,URINE NEGATIVE (NEGATIVE); LEUKOCYTE ESTERASE ,URINE 3+ (NEGATIVE); NITRITE,URINE NEGATIVE (NEGATIVE); PROTEIN,URINE NEGATIVE (NEGATIVE)
[2019-07-27 14:51] LABS: BACTERIA,URINE TRACE /HPF; SQUAMOUS EPITHELIAL CELL,UR RARE /HPF
[2019-07-27 15:03] LABS: BASOPHILS % (AUTO) 0 % (0-10); EOSINOPHILS # (AUTO) 0.3 10^3/uL (0.0-0.3); EOSINOPHILS % (AUTO) 4 % (0-10); HEMATOCRIT 35 % (35-52); HEMOGLOBIN 10.8 G/DL (11.5-16.0); LYMPHOCYTES # (AUTO) 1.6 X 10^3 (1.0-4.0); LYMPHOCYTES % (AUTO) 19 % (12-44); MEAN CORPUSCULAR HEMOGLOBIN 22 PG (25-34); MEAN CORPUSCULAR HGB CONC 31 G/DL (32-36); MEAN CORPUSCULAR VOLUME 73 FL (80-99); MEAN PLATELET VOLUME 10.4 FL (7.4-10.4); MONOCYTES # (AUTO) 0.7 X 10^3 (0.0-1.0); MONOCYTES % (AUTO) 8 % (0-12); NEUTROPHILS # (AUTO) 5.7 X 10^3 (1.8-7.8); NEUTROPHILS % (AUTO) 69 % (42-75); PLATELET COUNT 304 10^3/uL (130-400); RED CELL DISTRIBUTION WIDTH 24.3 % (10.0-14.5); WHITE BLOOD COUNT 8.3 10^3/uL (4.3-11.0)
[2019-07-27 15:04] LABS: ALANINE AMINOTRANSFERASE 7 U/L (0-55); ALBUMIN 3.6 GM/DL (3.2-4.5); ALKALINE PHOSPHATASE 85 U/L (40-136); BILIRUBIN,TOTAL 0.5 MG/DL (0.1-1.0); BUN/CREATININE RATIO 12; CARBON DIOXIDE 25 MMOL/L (21-32); CHLORIDE 104 MMOL/L (98-107); CREATININE SERUM 0.77 MG/DL (0.60-1.30); GFR ESTIMATED > 60; GLUCOSE 91 MG/DL (70-105); POTASSIUM 4.2 MMOL/L (3.6-5.0); SODIUM 137 MMOL/L (135-145); TOTAL PROTEIN 5.8 GM/DL (6.4-8.2)
[2019-07-27] MEDS ORDERED: FLUCONAZOLE 150 MG TABLET (ED ONLY) PO STA (15:05)
[2019-07-27] MEDS ORDERED: NITROFURANTOIN 100 MG (MACROBID) CAPSULE PO ONE (15:15)
[2019-07-27] MEDS ORDERED: LORazepam 0.5 MG (ATIVAN) TABLET PO STA (15:37)
[2019-07-27] MEDS ORDERED: NITR100C PO ×2 (16:36→16:48)
[2019-07-27 16:48] VITALS: BP 137/88
== END 2019-07-27 16:48 | disposition home or self-care (01) ==
LOC: EDUNIT# 12:51 → ER 12:52
DX: N39.0 Urinary tract infection, site not specified (principal); B37.3 Candidiasis of vulva and vagina; J44.9 Chronic obstructive pulmonary disease, unspecified; I10 Essential (primary) hypertension; I25.2 Old myocardial infarction; I25.10 Atherosclerotic heart disease of native coronary artery without angina pectoris; K21.9 Gastro-esophageal reflux disease without esophagitis; E03.9 Hypothyroidism, unspecified; F41.9 Anxiety disorder, unspecified; F32.9 Major depressive disorder, single episode, unspecified; E78.00 Pure hypercholesterolemia, unspecified; Z88.1 Allergy status to other antibiotic agents; Z88.2 Allergy status to sulfonamides; Z88.8 Allergy status to other drugs, medicaments and biological substances; Z87.891 Personal history of nicotine dependence; Z82.49 Family history of ischemic heart disease and other diseases of the circulatory system
CPT/HCPCS: 51701; 80053; 81000; 82962; 85025; 86141; 87040; 87077; 87088; 87186

== ENCOUNTER → 2019-08-16 | Outpatient (CLI) | payer MEDICARE, MEDICAID ==
--- NOTE | 2019-08-16 08:37 | Diagnostic Imaging Report ---
Indication: Shortness of breath PA and lateral chest Heart size and pulmonary vascularity are normal. Lungs are clear. There are no effusions or pneumothoraces. IMPRESSION: Negative chest Dictated by: Dictated on workstation # [id number]
== END ==
LOC: RAD 08:19
PROVIDERS: ATTEND Nurse Practitioner Family
DX: R06.02 Shortness of breath (principal)
CPT/HCPCS: 71046

== ENCOUNTER 2019-08-21 11:13 | Observation (INO) | payer MEDICARE, MEDICAID ==
[~2019-08-21] VITALS: Ht 157 cm; Wt 78.7 kg
[2019-08-21] MEDS ORDERED: ASPIRIN 81 MG CHEW (CHILDREN'S ASA) PO ONE (11:30)
[2019-08-21 11:44] LABS: BASOPHILS % (AUTO) 0 % (0-10); EOSINOPHILS # (AUTO) 0.3 10^3/uL (0.0-0.3); EOSINOPHILS % (AUTO) 4 % (0-10); HEMATOCRIT 35 % (35-52); HEMOGLOBIN 10.5 G/DL (11.5-16.0); LYMPHOCYTES # (AUTO) 1.6 X 10^3 (1.0-4.0); LYMPHOCYTES % (AUTO) 20 % (12-44); MEAN CORPUSCULAR HEMOGLOBIN 22 PG (25-34); MEAN CORPUSCULAR HGB CONC 30 G/DL (32-36); MEAN CORPUSCULAR VOLUME 73 FL (80-99); MEAN PLATELET VOLUME 10.5 FL (7.4-10.4); MONOCYTES # (AUTO) 0.7 X 10^3 (0.0-1.0); MONOCYTES % (AUTO) 9 % (0-12); NEUTROPHILS # (AUTO) 5.5 X 10^3 (1.8-7.8); NEUTROPHILS % (AUTO) 67 % (42-75); PLATELET COUNT 335 10^3/uL (130-400); RED CELL DISTRIBUTION WIDTH 22.9 % (10.0-14.5); WHITE BLOOD COUNT 8.2 10^3/uL (4.3-11.0)
--- NOTE | 2019-08-21 11:44 | ED Cardiac General ---
History of Present Illness General Chief Complaint: Chest Pain Stated Complaint: CP Source: patient Exam Limitations: no limitations History of Present Illness Date Seen by Provider: Aug 21, 2019 Time Seen by Provider: 11:30 Initial Comments 79-year-old female who is brought to the emergency room by [facility] for reports of chest pain that started this morning around 0900. She reports that the pain radiates down her right arm. She denies any shortness of breath, nausea, vomiting, diarrhea. She does report that she has had nausea after eating since her EGD/colonoscopy last week but no nausea with the chest pain. She did receive 324 ASA and 1 nitroglycerin sublingual in route by EMS. She denies any improvement in her pain. Timing/Duration: 1-3 hours NTG SL [employer] MECHANICAL: Yes ASA po [employer] MECHANICAL: Yes Associated Systoms: Chest Pain Allergies and Home Medications Allergies Coded Allergies: cephalexin (Verified Allergy, Severe, CONFUSION, DIZZINESS, 07/02/19) ciprofloxacin (Verified Allergy, Intermediate, SKIN BURNING, 07/02/19) sulfamethoxazole (Verified Allergy, Intermediate, Vomiting, 07/09/19) trimethoprim (Verified Allergy, Intermediate, Vomiting, 07/09/19) erythromycin base (Verified Allergy, Unknown, 07/02/19) quinine (Verified Allergy, Unknown, 07/02/19) Home Medications Albuterol Sulfate 2.5 Mg/0.5 Ml Vial.neb, 2.5 MG INH Q6H, (Reported) Biotin 10 Mg Tablet, 10 MG PO DAILY, (Reported) Dicyclomine HCl 10 Mg Capsule, 10 MG PO PRN, (Reported) Duloxetine HCl 60 Mg Capsule.dr, 60 MG PO DAILY, (Reported) Ezetimibe 10 Mg Tablet, 10 MG PO DAILY, (Reported) Fesoterodine Fumarate 4 Mg Tab.sr.24h, 4 MG PO DAILY, (Reported) Lactulose 10 Gm/15 Ml Solution, 15 ML PO BID PRN for CONSTIPATION-3RD LINE, (Reported) Levothyroxine Sodium 112 Mcg Tablet, 112 MCG PO DAILY, (Reported) Lorazepam 1 Mg Tablet, 1 MG PO TID PRN for ANXIETY, (Reported) Metoprolol Succinate 50 Mg Tab.er.24h, 50 MG PO DAILY, (Reported) Nitrofurantoin Macrocrystal 100 Mg Capsule, 100 MG PO BID Prescribed by: ISABELLA FARIAS on 07/27/19 1648 Nitroglycerin 0.4 Mg Tab.subl, 0.4 MG SL UD PRN for CHEST PAIN, (Reported) Oxycodone HCl/Acetaminophen 1 Each Tablet, 1 EACH PO Q8H PRN for PAIN-MODERATE, (Reported) Pantoprazole Sodium 40 Mg Tablet.dr, 40 MG PO DAILY, (Reported) Pregabalin 150 Mg Capsule, 150 MG PO BID, (Reported) Promethazine HCl 25 Mg Tablet, 25 MG PO Q6H PRN for NAUSEA/VOMITING, (Reported) Ropinirole HCl 4 Mg Tablet, 8 MG PO HS, (Reported) TAKES 2 (4MG) TABS TO EQUAL 8MG AT BEDTIME Salmeterol Xinafoate 50 Mcg Disk, 2 PUFF IH DAILY, (Reported) Sucralfate 1 Gm Tablet, 1 GM PO QID, (Reported) Temazepam 15 Mg Capsule, 15-30 MG PO HS PRN for SLEEP, (Reported) TAKES 1 TO 2 (15MG) CAPS AT BEDTIME NEEDED Venlafaxine HCl 37.5 Mg Cap.er.24h, 37.5 MG PO DAILY, (Reported) Patient Home Medication List Home Medication List Reviewed: Yes Review of Systems Review of Systems Constitutional: see HPI; No chills, No fever Cardiovascular: See HPI, Chest Pain All Other Systems Reviewed Negative Unless Noted: Yes Past Mivqvmn-Rcduqu-Xbydky Hx Past Med/Social Hx: Reviewed Nursing Past Med/Soc Hx Patient Social History Drug of Choice: denies Type Used: Cigarettes Former Smoker, Quit: Mar 26, 1996 2nd Hand Smoke Exposure: No Recent Hopitalizations: No Immunizations Up To Date Tetanus Booster (TDap): Unknown PED Vaccines UTD: No Date of Pneumonia Vaccine: Apr 22, 2009 Date of Influenza Vaccine: Nov 26, 2018 Seasonal Allergies Seasonal Allergies: Yes Past Medical History Surgeries: Yes Abdominal, Appendectomy, Bladder Surgery, Bowel Surgery, Cardiac, Coronary Stent, Hysterectomy, Oophorectomy, Orthopedic, Tonsillectomy Respiratory: Yes (O2 AT HS) Pulmonary Embolism, Sleep Apnea, COPD Currently Using CPAP: No Currently Using BIPAP: No Cardiac: Yes (CARDIAC CATH WITH STENTS X 2) Chronic Edema/Swelling, Coronary Artery Disease, Deep Vein Thrombosis, Heart Attack, High Cholesterol, Hypertension Neurological: Yes Vertigo 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, 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 Genitourinary: Yes (INCONTINENCE) Kidney Infection, Bladder Infection, UTI-Chronic Gastrointestinal: Yes Abdominal Hernia, Gastroesophageal Reflux, Diverticulosis, Esophagitis Musculoskeletal: Yes Osteoporosis, Arthritis, Chronic Back Pain, Fractures Endocrine: Yes Hypothyroidsim HEENT: Yes ( DENTURES) Dysphagia Loss of Vision: Denies Hearing Impairment: Denies Cancer: No Psychosocial: Yes Anxiety, Depression Integumentary: No Blood Disorders: Yes (anemia) Adverse Reaction/Blood Tranf: No Family Medical History Reviewed Nursing Family Hx Family history: Hypertension G8 BROTHER Myocardial infarction 19 MOTHER G8 BROTHER Physical Exam Vital Signs Vital Signs - First Documented 08/21/19 11:42 Temp 36.8 Pulse 66 Resp 18 B/P (MAP) 142/99 (113) Pulse Ox 96 O2 Delivery Room Air Capillary Refill : Height, Weight, BMI Height: 5'2.00" Weight: 163lbs. 0.0oz. 73.453264ey; 35.42 BMI Method:Stated General Appearance: No Apparent Distress, WD/WN Respiratory: Chest Non Tender, Lungs Clear, Normal Breath Sounds, No Accessory Muscle Use, No Respiratory Distress Cardiovascular: Regular Rate, Rhythm, No Edema, No Gallop, No JVD, No Murmur, Normal Peripheral Pulses Gastrointestinal: Normal Bowel Sounds, No Organomegaly, No Pulsatile Mass, Non Tender Extremity: Normal Capillary Refill, Normal Inspection, Normal Range of Motion, Non Tender, No Calf Tenderness, No Pedal Edema Neurologic/Psychiatric: Alert, Oriented x3, Normal Mood/Affect Skin: Normal Color, Warm/Dry Progress/Results/Core Measures Results/Orders Lab Results Laboratory Tests Test 08/21/19 11:30 08/21/19 12:06 Range/Units White Blood Count 8.2 4.3-11.0 10^3/uL Red Blood Count 4.87 4.35-5.85 10^6/uL Hemoglobin 10.5 L 11.5-16.0 G/DL Hematocrit 35 35-52 % Mean Corpuscular Volume 73 L 80-99 FL Mean Corpuscular Hemoglobin 22 L 25-34 PG Mean Corpuscular Hemoglobin Concent 30 L 32-36 G/DL Red Cell Distribution Width 22.9 H 10.0-14.5 % Platelet Count 335 130-400 10^3/uL Mean Platelet Volume 10.5 H 7.4-10.4 FL Neutrophils (%) (Auto) 67 42-75 % Lymphocytes (%) (Auto) 20 12-44 % Monocytes (%) (Auto) 9 0-12 % Eosinophils (%) (Auto) 4 0-10 % Basophils (%) (Auto) 0 0-10 % Neutrophils # (Auto) 5.5 1.8-7.8 X 10^3 Lymphocytes # (Auto) 1.6 1.0-4.0 X 10^3 Monocytes # (Auto) 0.7 0.0-1.0 X 10^3 Eosinophils # (Auto) 0.3 0.0-0.3 10^3/uL Basophils # (Auto) 0.0 0.0-0.1 10^3/uL Prothrombin Time 12.9 12.2-14.7 SEC INR Comment 0.9 0.8-1.4 Activated Partial Thromboplast Time 26 24-35 SEC D-Dimer 0.38 0.00-0.49 UG/ML Sodium Level 137 135-145 MMOL/L Potassium Level 4.2 3.6-5.0 MMOL/L Chloride Level 103 98-107 MMOL/L Carbon Dioxide Level 26 21-32 MMOL/L Anion Gap 8 5-14 MMOL/L Blood Urea Nitrogen 15 7-18 MG/DL Creatinine 0.83 0.60-1.30 MG/DL Estimat Glomerular Filtration Rate > 60 BUN/Creatinine Ratio 18 Glucose Level 126 H 70-105 MG/DL Calcium Level 9.9 8.5-10.1 MG/DL Corrected Calcium 9.9 8.5-10.1 MG/DL Magnesium Level 2.2 1.6-2.4 MG/DL Total Bilirubin 0.4 0.1-1.0 MG/DL Aspartate Amino Transf (AST/SGOT) 13 5-34 U/L Alanine Aminotransferase (ALT/SGPT) 10 0-55 U/L Alkaline Phosphatase 84 40-136 U/L Myoglobin 28.0 10.0-92.0 NG/ML Troponin I 0.059 H <0.028 NG/ML Total Protein 7.0 6.4-8.2 GM/DL Albumin 4.0 3.2-4.5 GM/DL Urine Color YELLOW Urine Clarity SL CLOUDY Urine pH 6.0 5-9 Urine Specific [place] 1.010 L 1.016-1.022 Urine Protein NEGATIVE NEGATIVE Urine Glucose (UA) NEGATIVE NEGATIVE Urine Ketones NEGATIVE NEGATIVE Urine Nitrite POSITIVE H NEGATIVE Urine Bilirubin NEGATIVE NEGATIVE Urine Urobilinogen 0.2 < = 1.0 MG/DL Urine Leukocyte Esterase 2+ H NEGATIVE Urine RBC (Auto) NEGATIVE NEGATIVE Urine RBC NONE /HPF Urine WBC 50-100 H /HPF Urine Squamous Epithelial Cells RARE /HPF Urine Crystals NONE /LPF Urine Bacteria MODERATE H /HPF Urine Casts NONE /LPF Urine Mucus NEGATIVE /LPF Urine Culture Indicated YES My Orders Orders - NORRISDEZ Cbc With Automated Diff (08/21/19 11:21) Magnesium (08/21/19 11:21) Chest 1 View, Ap/Pa Only (08/21/19 11:21) Ekg Tracing (08/21/19 11:21) Comprehensive Metabolic Panel (08/21/19 11:) Myoglobin Serum (08/21/19 11:21) Protime With Inr (08/21/19 11:21) Partial Thromboplastin Time (08/21/19 11:21) O2 (08/21/19 11:21) Monitor-Rhythm Ecg Trace Only (08/21/19 11:21) Lipid Panel (08/22/19 06:00) Ed Iv/Invasive Line Start (08/21/19 11:21) Ua Culture If Indicated (08/21/19 11:45) BNP (08/21/19 11:45) Fibrin Degradation Products (08/21/19 11:45) Troponin I (08/21/19 11:30) Medications Given in ED Vital Signs/I&O 08/21/19 08/21/19 11:42 11:42 Temp 36.8 Pulse 66 Resp 18 B/P (MAP) 142/99 (113) Pulse Ox 96 O2 Delivery Room Air Progress Progress Note : Time: 13:00 Progress Note I have seen and evaluated the patient. I've informed her of her laboratory and imaging studies. I have discussed the case with Dr. Rosales and Dr. Cox. They agreed to accept the patient to their services. Dr. Rosales recommends Lovenox 40 mg now and daily, Plavix 75 mg now and daily, metoprolol XL 50 mg now and daily, aspirin 81 mg daily with repeat troponin every 6 hours and chest pain protocol. Patient agrees with plans for admission. Initial ECG Impression Date: Aug 21, 2019 Initial ECG Impression Time: 11:24 Initial ECG Rate: 69 Initial ECG Rhythm: Normal Sinus Initial ECG Intervals: Normal Initial ECG Impression: Normal Initial ECG Comparisson: Unchanged Departure Communication (Admissions) Time/Spoke to Admitting Phy: 13:00 Dr. Cox Time/Spoke to Consulting Phy: 12:50 Bobby Impression Primary Impression: Chest pain Additional Impressions: UTI (urinary tract infection) NSTEMI (non-ST elevated myocardial infarction) Disposition: ADMITTED INPATIENT Condition: Stable/Unchanged Admissions Decision to Admit Reason: Admit from ER (General) Decision to Admit/Date: Aug 21, 2019 Time/Decision to Admit Time: 13:18 Departure-Patient Inst. Referrals: TORIBIO FOFANA DO (PCP/Family) Primary Care Physician DEZ PISANO Aug 21, 2019 11:44
--- NOTE | 2019-08-21 11:46 | Diagnostic Imaging Report ---
INDICATION: Chest pain. TIME OF EXAM: 11:40 AM. COMPARISON: 08/16/2019. FINDINGS: The heart size is stable. The lungs are clear. No infiltrates are detected. There is no effusion or pneumothorax. Kyphoplasty changes in the mid to lower thoracic spine are noted. IMPRESSION: No acute cardiopulmonary process is detected. Dictated by: Dictated on workstation # [id number]
[2019-08-21 11:56] LABS: CHLORIDE 103 MMOL/L (98-107); POTASSIUM 4.2 MMOL/L (3.6-5.0); SODIUM 137 MMOL/L (135-145)
[2019-08-21 11:57] LABS: CALCIUM 9.9 MG/DL (8.5-10.1)
[2019-08-21 11:58] LABS: GLUCOSE 126 MG/DL (70-105)
[2019-08-21 11:59] LABS: CARBON DIOXIDE 26 MMOL/L (21-32)
[2019-08-21 12:00] LABS: BILIRUBIN,TOTAL 0.4 MG/DL (0.1-1.0)
[2019-08-21 12:02] LABS: ALKALINE PHOSPHATASE 84 U/L (40-136); CREATININE SERUM 0.83 MG/DL (0.60-1.30); GFR ESTIMATED > 60
[2019-08-21 12:03] LABS: BUN/CREATININE RATIO 18
[2019-08-21 12:05] LABS: ALANINE AMINOTRANSFERASE 10 U/L (0-55); MAGNESIUM 2.2 MG/DL (1.6-2.4)
[2019-08-21 12:37] LABS: INR 0.9 (0.8-1.4); PROTHROMBIN TIME PATIENT 12.9 SEC (12.2-14.7)
[2019-08-21 12:50] LABS: BILIRUBIN,URINE NEGATIVE (NEGATIVE); CLARITY,URINE SL CLOUDY; COLOR,URINE YELLOW; GLUCOSE, URINE (UA) NEGATIVE (NEGATIVE); KETONES,URINE NEGATIVE (NEGATIVE); LEUKOCYTE ESTERASE ,URINE 2+ (NEGATIVE); NITRITE,URINE POSITIVE (NEGATIVE); PROTEIN,URINE NEGATIVE (NEGATIVE)
--- OUTSIDE RECORDS SUMMARY | 2019-08-21 12:58 | XMS REPORT | Clinical Summary ---
Author Author [facility] Organization [facility] Address Unknown Phone Unavailable Care Team Providers Care Good Humor Vendor Name Role Phone Donna Brown RN Unavailable Unavailable Michael Mandujano MD Unavailable Alfonso Lino DO Unavailable Alfonso Keith MD Unavailable Eliud Brewer MD PCP Source Comments Some departments are not documenting in the electronic medical record. If you d o not see the information that you expected, contact Release of Information in [facility] [employer] Information Management department at [phone] for further assistan ce in locating additional records.[facility] Allergies Comments Active Allergy Reactions Severity [...] needed. Active fluticasone (FLONASE) 50 Apply 1 [place] 0 mcg/actuation nasal spray to each nostril [...] operative note) 07/2017: UDS by Dr. Mccormack ([place]): I SD, OAB, mixed incontinence 04/18/18: PE: [...] Alvarez. She is seen Dr. Mccormack, in [place], [place] who performed UDS and in 07/2017, [...] l therapy if it is available in [place], [place]. All questions were ans wered and she is amenable to the plan. Vaginal Estrace cream 3 times weekly Discontinue Myrbetriq Start Trospium 60 XR daily PFPT with external referral to [facility] in 3-4 months Restless leg syndrome 06/03/2009 CAD (coronary artery disease) 06/03/2009 Overview: Hx of MO 4 yrs ago Depression 06/03/2009 Arthritis 06/03/2009 [...] on file) Description:Intraocular lens implants / / [id number] Outvisvjdj-Yaesyns-89/7/2004 Stent Implanted: 01/27/2004 by Karina Rosales MD (Quantity not on file) Description:prox LAD Results Not on filefrom Last 3 Months Insurance Type Payer Benefit Subscriber ID Effective Phone Address Plan / Dates Group Medicare MEDICARE MEDICARE xxxxxxxxxxx 1995- PART A AND Present B Medicaid UHC MEDICAID [place] UHC xxxxxxxxxxx 2012-P [place] PLAN [place] [phone] Advance Directives 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
[2019-08-21 13:00] LABS: BACTERIA,URINE MODERATE /HPF; SQUAMOUS EPITHELIAL CELL,UR RARE /HPF; WBC,URINE 50-100 /HPF
[2019-08-21] MEDS ORDERED: CLOPIDOGREL 75 MG (PLAVIX) TABLET PO ONE (13:00)
[2019-08-21] MEDS ORDERED: meTOproloL SUCCINATE 50 MG (TOPROL XL) TAB PO SCH (13:00)
[2019-08-21] MEDS ORDERED: ENOXAPARIN 40 MG/0.4 ML (LOVENOX) SYR SC ONE (13:00)
--- NOTE | 2019-08-21 13:54 | Consultation-Cardiology ---
HPI-Cardiology Cardiology Consultation: Date of Consultation 08/21/19 Date of Admission 08-21-2019 Attending Physician Admitting Physician Eliud Brewer DO Consulting Physician Karina Rosales MD HPI: Chief Complaint: Chest pain Ms. Sadler is an 79 year old female admitted to 7 from the ED. She reports last week she had an upper endoscopy and since the endoscopy she has been having mid-sternal chest pressure which has been increasingly more intense. She reports today the discomfort was unbearable. She reports it feels like a brick sitting on her chest with sharp stabbing pain the radiates through to her back, across her chest and into her arms bilat with numbness in her right arm/hand. She states it is worse when lying down and improves when sitting up, but never has resolved. She reports this morning she did feel nauseated and vomited. She reports she was feeling SOB this morning, clammy and diaphoretic. She states her care worker called EMS at her request. She states the pain is still present and has not improved. She reports increasing SOB this morning, but feels that has improved. She reports increasing bilat LE swelling which is least in the morning and worse at the end of the day. She states she was going to have an u/s on her legs per her PCP to r/o DVT, but since she was feeling worse she called EMS. She reports she has been constipated. She reports poor appetite. She is incontinent of urine at times and has had pain and burning with urination. She denies any syncope or near syncope. She denies any orthopnea. She reports chronic anxiety, which has been worse the last few days. Review of Systems-Cardiology Review of Systems Constitutional: No chills, No fever; malaise Eyes: No vision change Ears/Nose/Throat: No epistaxis, No recent hearing loss Respiratory: As described under HPI Cardiovascular: As described under HPI Gastrointestinal: As described under HPI Genitourinary: As described under HPI Musculoskeletal: back pain (chronic) Skin: No rash on exposed areas, No ulcerations on exposed areas Psychiatric/Neurological: anxiety; No focal weakness, No syncope Hematologic: No bleeding abnormalities All Other Systems Reviewed Negative Unless Noted: Yes AMI-Afdrsn-Njywli Hx Patient Social History Alcohol Use: Denies Use Recreational Drug Use: No Drug of Choice: denies Former smoker/When Quit: Sep 27, 1997 Type Used: Cigarettes 2nd Hand Smoke Exposure: No Recent Foreign Travel: No Recent Infectious Disease Expo: No Immunizations Up To Date Tetanus Booster (TDap): Unknown Date of Pneumonia Vaccine: Apr 22, 2009 Date of Influenza Vaccine: Nov 26, 2018 Past Medical History PMH As described under Assessment. Family Medical History Family Medical History: She reports her mother and a brother had ND's. She reports her brother had HTN. Family History: Family history: Hypertension G8 BROTHER Myocardial infarction 19 MOTHER G8 BROTHER Allergies and Home Medications Allergies Coded Allergies: cephalexin (Verified Allergy, Severe, CONFUSION, DIZZINESS, 07/02/19) ciprofloxacin (Verified Allergy, Intermediate, SKIN BURNING, 07/02/19) sulfamethoxazole (Verified Allergy, Intermediate, Vomiting, 07/09/19) trimethoprim (Verified Allergy, Intermediate, Vomiting, 07/09/19) erythromycin base (Verified Allergy, Unknown, 07/02/19) quinine (Verified Allergy, Unknown, 07/02/19) Home Medications Albuterol Sulfate 2.5 Mg/0.5 Ml Vial.neb, 2.5 MG INH Q6H, (Reported) Biotin 10 Mg Tablet, 10 MG PO DAILY, (Reported) Dicyclomine HCl 10 Mg Capsule, 10 MG PO PRN, (Reported) Duloxetine HCl 60 Mg Capsule.dr, 60 MG PO DAILY, (Reported) Ezetimibe 10 Mg Tablet, 10 MG PO DAILY, (Reported) Fesoterodine Fumarate 4 Mg Tab.sr.24h, 4 MG PO DAILY, (Reported) Lactulose 10 Gm/15 Ml Solution, 15 ML PO BID PRN for CONSTIPATION-3RD LINE, (Reported) Levothyroxine Sodium 112 Mcg Tablet, 112 MCG PO DAILY, (Reported) Lorazepam 1 Mg Tablet, 1 MG PO TID PRN for ANXIETY, (Reported) Metoprolol Succinate 50 Mg Tab.er.24h, 50 MG PO DAILY, (Reported) Nitrofurantoin Macrocrystal 100 Mg Capsule, 100 MG PO BID Prescribed by: ISABELLA FARIAS on 07/27/19 1648 Nitroglycerin 0.4 Mg Tab.subl, 0.4 MG SL UD PRN for CHEST PAIN, (Reported) Oxycodone HCl/Acetaminophen 1 Each Tablet, 1 EACH PO Q8H PRN for PAIN-MODERATE, (Reported) Pantoprazole Sodium 40 Mg Tablet.dr, 40 MG PO DAILY, (Reported) Pregabalin 150 Mg Capsule, 150 MG PO BID, (Reported) Promethazine HCl 25 Mg Tablet, 25 MG PO Q6H PRN for NAUSEA/VOMITING, (Reported) Ropinirole HCl 4 Mg Tablet, 8 MG PO HS, (Reported) TAKES 2 (4MG) TABS TO EQUAL 8MG AT BEDTIME Salmeterol Xinafoate 50 Mcg Disk, 2 PUFF IH DAILY, (Reported) Sucralfate 1 Gm Tablet, 1 GM PO QID, (Reported) Temazepam 15 Mg Capsule, 15-30 MG PO HS PRN for SLEEP, (Reported) TAKES 1 TO 2 (15MG) CAPS AT BEDTIME NEEDED Venlafaxine HCl 37.5 Mg Cap.er.24h, 37.5 MG PO DAILY, (Reported) Physical Exam-Cardiology Physical Exam Vital Signs/I&O 08/21/19 08/21/19 08/21/19 11:42 11:42 14:01 Temp 36.8 Pulse 66 73 Resp 18 18 B/P (MAP) 142/99 (113) 143/77 Pulse Ox 96 95 O2 Delivery Room Air Room Air Capillary Refill : Less Than 3 Seconds Constitutional: AAO x 3, well-developed, well-nourished HEENT: PERRL, hearing is well preserved Neck: No carotid bruit; carotid pulses are 2 + bilaterally Respiratory: No accessory muscle use, No respiratory distress; chest expansion is symmetric, chest is bilaterally symmetric Cardiovascular: regular rate-rhythm; No JVD; S1 and S2 Gastrointestinal: No tender; round, audible bowel sounds Extremities: no lower extremity edema bilateral Neurologic/Psychiatric: grossly intact (moves all extremities) Data Review Labs Laboratory Tests 08/21/19 11:30: White Blood Count 8.2, Red Blood Count 4.87, Hemoglobin 10.5L, Hematocrit 35, Mean Corpuscular Volume 73L, Mean Corpuscular Hemoglobin 22L, Mean Corpuscular Hemoglobin Concent 30L, Red Cell Distribution Width 22.9H, Platelet Count 335, Mean Platelet Volume 10.5H, Neutrophils (%) (Auto) 67, Lymphocytes (%) (Auto) 20, Monocytes (%) (Auto) 9, Eosinophils (%) (Auto) 4, Basophils (%) (Auto) 0, Neutrophils # (Auto) 5.5, Lymphocytes # (Auto) 1.6, Monocytes # (Auto) 0.7, Eosinophils # (Auto) 0.3, Basophils # (Auto) 0.0, Prothrombin Time 12.9, INR Comment 0.9, Activated Partial Thromboplast Time 26, D-Dimer 0.38, Sodium Level 137, Potassium Level 4.2, Chloride Level 103, Carbon Dioxide Level 26, Anion Gap 8, Blood Urea Nitrogen 15, Creatinine 0.83, Estimat Glomerular Filtration Rate > 60, BUN/Creatinine Ratio 18, Glucose Level 126H, Calcium Level 9.9, Corrected Calcium 9.9, Magnesium Level 2.2, Total Bilirubin 0.4, Aspartate Amino Transf (AST/SGOT) 13, Alanine Aminotransferase (ALT/SGPT) 10, Alkaline Phosphatase 84, Myoglobin 28.0, Troponin I 0.059H, Total Protein 7.0, Albumin 4.0 08/21/19 12:06: Urine Color YELLOW, Urine Clarity SL CLOUDY, Urine pH 6.0, Urine Specific [place] 1.010L, Urine Protein NEGATIVE, Urine Glucose (UA) NEGATIVE, Urine Ketones NEGATIVE, Urine Nitrite POSITIVEH, Urine Bilirubin NEGATIVE, Urine Urobilinogen 0.2, Urine Leukocyte Esterase 2+H, Urine RBC (Auto) NEGATIVE, Urine RBC NONE, Urine WBC 50-100H, Urine Squamous Epithelial Cells RARE, Urine Crystals NONE, Urine Bacteria MODERATEH, Urine Casts NONE, Urine Mucus NEGATIVE, Urine Culture Indicated YES 08/21/19 13:00: B-Type Natriuretic Peptide 58.2 Radiology NAME: [facility] REC#: [id number] PT STATUS: REG ER : 1940 PHYSICIAN: DEZ PISANO ADMIT DATE: 08/21/19/ER Draft Date of Exam:08/21/19 CHEST 1 VIEW, AP/PA ONLY INDICATION: Chest pain. TIME OF EXAM: 11:40 AM. COMPARISON: 08/16/2019. FINDINGS: The heart size is stable. The lungs are clear. No infiltrates are detected. There is no effusion or pneumothorax. Kyphoplasty changes in the mid to lower thoracic spine are noted. IMPRESSION: No acute cardiopulmonary process is detected. Dictated on workstation # [id number] Dict: 08/21/19 1143 Trans: 08/21/19 1146 [id number] Interpreted by: MARTINEZ NAPIER MD Electronically signed by: A/P-Cardiology Assessment/Admission Diagnosis Chest pain of undetermined etiology UTI - management per medical services Chronic abd discomfort due to multiple incisional hernias of the abdomen S/P abdominal surgery on 01-27-14 - perforated diverticulum treated with diverting colostomy which has been reversed S/p R hip replacement for hip fracture in early 2016 with chronic post-op pain in the R hip and leg Chronic intermittent chest and epigastric discomfort that appears to be d/t esophageal stricture and/or spasm Coronary artery disease with a history of drug eluting stenting of the left anterior descending artery at [facility] in 2004. The stent is known to be a Taxus 3.5 mm x 16 mm stent. Last cardiac cath by Dr. Moore August 2013 showed mid and distal in stent restenosis and disease just di stal to the stent. For these she underwent Promus Premier 2.5 x 28mm which overlaps the distal part of the old stent and extends distally beyond it MPI of August [address] Moore showed normal LV function with no wall motion abnormalities. Normal myocardial perfusion imaging. LVEF 64% Echocardiogram of Mar 2017 showed LVEF 60-65%. Trivial TR Hypertension Carotid u/s of April 2017 showed minimal plaque Anxiety and depression, currently controlled Degenerative joint disease. Chronic back pain which she receives epidural injections. Hyperlipidemia - intolerant to statins. Taking Zetia - followed by Dr. Brewer Gastroesophageal reflux disease. History of sleep apnea. History of deep vein thrombosis with pulmonary embolism in 2004. She remained on anticoagulation for several months and has now been off anticoagulation for several years. 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 Lam and Dr. Brewer. Currently followed by Dr Brooks. H/o right leg Joseph's cyst and bursitis Clinical Quality Measures AMI/AHF: ASA po Prior to arrival: Yes MANNY VALDEZ Aug 21, 2019 13:54
[2019-08-21] MEDS ORDERED: PANTOPRAZOLE 40 MG (PROTONIX) VIAL IV NR (15:15)
[2019-08-21] MEDS ORDERED: ANTACID SUSP 30 ML UDC (MYLANTA) PO NR (15:15)
[2019-08-21] MEDS ORDERED: CATHETER FLUSH 10 ML SYR IV PRN ×2 (15:15→20:00)
[2019-08-21 16:00] VITALS: BP 143/73
[2019-08-21 16:05] VITALS: BP 143/73
[2019-08-21] MEDS ORDERED: ONDANSETRON 4 MG/2 ML (SDV) Z0FRAN ONE (16:28)
[2019-08-21] MEDS: ONDANSETRON 4 MG/2 ML (SDV) Z0FRAN IVP PRN (16:33)
--- NOTE | 2019-08-21 16:35 | Consultation-Cardiology ---
HPI-Cardiology Cardiology Consultation: Date of Consultation 08/21/19 Time Seen by a Provider: 16:15 Date of Admission Attending Physician Tori Cox MD Admitting Physician Eliud Brewer DO Consulting Physician LUIS GOLDSMITH MD, MA, FACP, FACC, FSCAI, CCDS HPI: Chief Complaint: CC: Chest pain HPI Ms. Gomez is an 79 year old female admitted to 507 from the ED. She reports last week she had an upper endoscopy and since the endoscopy she has been having mid-sternal chest pressure which has been increasingly more intense. She reports today the discomfort was unbearable. She reports it feels like a brick sitting on her chest with sharp stabbing pain the radiates through to her back, across her chest and into her arms bilat with numbness in her right arm/hand. She states it is worse when lying down and improves when sitting up, but never has resolved. She reports this morning she did feel nauseated and vomited. She reports she was feeling SOB this morning, clammy and diaphoretic. She states h er care worker called EMS at her request. She states the pain is still present and has not improved. She reports increasing SOB this morning, but feels that has improved. She reports increasing bilat LE swelling which is least in the morning and worse at the end of the day. She states she was going to have an u/s on her legs per her PCP to r/o DVT, but since she was feeling worse she called EMS. She reports she has been constipated. She reports poor appetite. She is incontinent of urine at times and has had pain and burning with urination. She denies any syncope or near syncope. She denies any orthopnea. She reports chronic anxiety, which has been worse the last few days. Review of Systems-Cardiology Review of Systems Constitutional: No chills, No fever; malaise Eyes: No vision change Ears/Nose/Throat: No epistaxis, No recent hearing loss Respiratory: As described under HPI Cardiovascular: As described under HPI Gastrointestinal: As described under HPI Genitourinary: As described under HPI Musculoskeletal: back pain (chronic) Skin: No rash on exposed areas, No ulcerations on exposed areas Psychiatric/Neurological: anxiety; No focal weakness, No syncope Hematologic: No bleeding abnormalities All Other Systems Reviewed Negative Unless Noted: Yes GFL-Eyrxge-Vapmpv Hx Patient Social History Alcohol Use: Denies Use Recreational Drug Use: No Drug of Choice: denies Former smoker/When Quit: Sep 27, 1997 Type Used: Cigarettes 2nd Hand Smoke Exposure: No Recent Foreign Travel: No Recent Infectious Disease Expo: No Immunizations Up To Date Tetanus Booster (TDap): Unknown Date of Pneumonia Vaccine: Aug 20, 2017 Date of Influenza Vaccine: Nov 26, 2018 Past Medical History PMH As described under Assessment. Family Medical History Family Medical History: She reports her mother and a brother had NM's. She reports her brother had HTN. Family History: Family history: Hypertension G8 BROTHER Myocardial infarction 19 MOTHER G8 BROTHER Allergies and Home Medications Allergies Coded Allergies: cephalexin (Verified Allergy, Severe, CONFUSION, DIZZINESS, 07/02/19) ciprofloxacin (Verified Allergy, Intermediate, SKIN BURNING, 07/02/19) sulfamethoxazole (Verified Allergy, Intermediate, Vomiting, 07/09/19) trimethoprim (Verified Allergy, Intermediate, Vomiting, 07/09/19) erythromycin base (Verified Allergy, Unknown, 07/02/19) quinine (Verified Allergy, Unknown, 07/02/19) Home Medications Albuterol Sulfate 2.5 Mg/0.5 Ml Vial.neb, 2.5 MG INH Q6H, (Reported) Biotin 10 Mg Tablet, 10 MG PO DAILY, (Reported) Dicyclomine HCl 10 Mg Capsule, 10 MG PO PRN, (Reported) Duloxetine HCl 60 Mg Capsule.dr, 60 MG PO DAILY, (Reported) Ezetimibe 10 Mg Tablet, 10 MG PO DAILY, (Reported) Fesoterodine Fumarate 4 Mg Tab.sr.24h, 4 MG PO DAILY, (Reported) Lactulose 10 Gm/15 Ml Solution, 15 ML PO BID PRN for CONSTIPATION-3RD LINE, (Reported) Levothyroxine Sodium 112 Mcg Tablet, 112 MCG PO DAILY, (Reported) Lorazepam 1 Mg Tablet, 1 MG PO TID PRN for ANXIETY, (Reported) Metoprolol Succinate 50 Mg Tab.er.24h, 50 MG PO DAILY, (Reported) Nitrofurantoin Macrocrystal 100 Mg Capsule, 100 MG PO BID Prescribed by: ISABELLA FARIAS on 07/27/19 8598 Nitroglycerin 0.4 Mg Tab.subl, 0.4 MG SL UD PRN for CHEST PAIN, (Reported) Oxycodone HCl/Acetaminophen 1 Each Tablet, 1 EACH PO Q8H PRN for PAIN-MODERATE, (Reported) Pantoprazole Sodium 40 Mg Tablet.dr, 40 MG PO DAILY, (Reported) Pregabalin 150 Mg Capsule, 150 MG PO BID, (Reported) Promethazine HCl 25 Mg Tablet, 25 MG PO Q6H PRN for NAUSEA/VOMITING, (Reported) Ropinirole HCl 4 Mg Tablet, 8 MG PO HS, (Reported) TAKES 2 (4MG) TABS TO EQUAL 8MG AT BEDTIME Salmeterol Xinafoate 50 Mcg Disk, 2 PUFF IH DAILY, (Reported) Sucralfate 1 Gm Tablet, 1 GM PO QID, (Reported) Temazepam 15 Mg Capsule, 15-30 MG PO HS PRN for SLEEP, (Reported) TAKES 1 TO 2 (15MG) CAPS AT BEDTIME NEEDED Venlafaxine HCl 37.5 Mg Cap.er.24h, 37.5 MG PO DAILY, (Reported) Patient Home Medication List Home Medication List Reviewed: Yes Physical Exam-Cardiology Physical Exam Vital Signs/I&O 08/21/19 08/21/19 08/21/19 08/21/19 11:42 11:42 14:01 16:00 Temp 36.8 37.0 Pulse 66 73 66 Resp 18 18 20 B/P (MAP) 142/99 (113) 143/77 143/73 (96) Pulse Ox 96 95 96 O2 Delivery Room Air Room Air 08/21/19 08/21/19 16:00 16:05 Temp 37.0 Pulse 66 Resp 20 B/P (MAP) 143/73 Pulse Ox 96 O2 Delivery Room Air Room Air Capillary Refill : Less Than 3 Seconds Constitutional: AAO x 3, well-developed, well-nourished HEENT: PERRL, hearing is well preserved Neck: No carotid bruit; carotid pulses are 2 + bilaterally Respiratory: No accessory muscle use, No respiratory distress; chest expansion is symmetric, chest is bilaterally symmetric Cardiovascular: regular rate-rhythm; No JVD; S1 and S2 Gastrointestinal: tender (tenderness in epigastrium that she identifies the same or similar to discomfort that she presented with), round, audible bowel so unds Extremities: no lower extremity edema bilateral Neurologic/Psychiatric: oriented x 3, other (moves all limbs equally) Skin: No rash on exposed areas, No ulcerations on exposed areas Data Review Labs Laboratory Tests 08/21/19 11:30: White Blood Count 8.2, Red Blood Count 4.87, Hemoglobin 10.5L, Hematocrit 35, Mean Corpuscular Volume 73L, Mean Corpuscular Hemoglobin 22L, Mean Corpuscular Hemoglobin Concent 30L, Red Cell Distribution Width 22.9H, Platelet Count 335, M migel Platelet Volume 10.5H, Neutrophils (%) (Auto) 67, Lymphocytes (%) (Auto) 20, Monocytes (%) (Auto) 9, Eosinophils (%) (Auto) 4, Basophils (%) (Auto) 0, Neutrophils # (Auto) 5.5, Lymphocytes # (Auto) 1.6, Monocytes # (Auto) 0.7, Eosinophils # (Auto) 0.3, Basophils # (Auto) 0.0, Prothrombin Time 12.9, INR Comment 0.9, Activated Partial Thromboplast Time 26, D-Dimer 0.38, Sodium Level 137, Potassium Level 4.2, Chloride Level 103, Carbon Dioxide Level 26, Anion Gap 8, Blood Urea Nitrogen 15, Creatinine 0.83, Estimat Glomerular Filtration Rate > 60, BUN/Creatinine Ratio 18, Glucose Level 126H, Calcium Level 9.9, Corrected Calcium 9.9, Magnesium Level 2.2, Total Bilirubin 0.4, Aspartate Amino Transf (AST/SGOT) 13, Alanine Aminotransferase (ALT/SGPT) 10, Alkaline Phosphatase 84, Myoglobin 28.0, Troponin I 0.059H, Total Protein 7.0, Albumin 4.0 08/21/19 12:06: Urine Color YELLOW, Urine Clarity SL CLOUDY, Urine pH 6.0, Urine Specific [place] 1.010L, Urine Protein NEGATIVE, Urine Glucose (UA) NEGATIVE, Urine Ketones NEGATIVE, Urine Nitrite POSITIVEH, Urine Bilirubin NEGATIVE, Urine Urobilinogen 0.2, Urine Leukocyte Esterase 2+H, Urine RBC (Auto) NEGATIVE, Urine RBC NONE, Urine WBC 50-100H, Urine Squamous Epithelial Cells RARE, Urine Crystals NONE, Urine Bacteria MODERATEH, Urine Casts NONE, Urine Mucus NEGATIVE, Urine Culture Indicated YES 08/21/19 13:00: B-Type Natriuretic Peptide 58.2 Laboratory Tests 08/21/19 11:30 ECG Impression ECG Comment ECG on 08-21-19 during chest pain did not show any acute changes compared to previous ECG of 01-30-19 A/P-Cardiology Assessment/Admission Diagnosis Chest and epigastric pain of undetermined etiology Minimal troponin elevation of undetermined etiology. No ECG evidence of acute ischemia UTI - management per Medical services H/o chronic, intermittent chest and epigastric discomfort that appears to be d/t esophageal stricture and/or spasm. 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 The stent is known to be a Taxus 3.5 mm x 16 mm stent. Last cardiac cath by Dr. Moore August 2013 showed mid and distal in stent restenosis and disease just distal to the stent. For these she underwent Promus Premier 2.5 x 28mm which overlaps the distal part of the old stent and extends distally beyond it MPI of August [address] Moore showed normal LV function with no wall motion abnormalities. Normal myocardial perfusion imaging. LVEF 64% Echocardiogram of Mar 2017 showed LVEF 60-65%. Trivial TR Hypertension Carotid u/s of April 2017 showed minimal plaque Anxiety and depression, currently controlled Degenerative joint disease. Chronic back pain which she receives epidural injections. Hyperlipidemia - intolerant to statins. Taking Zetia - followed by Dr. Brewer Gastroesophageal reflux disease. History of sleep apnea. History of deep vein thrombosis with pulmonary embolism in 2004. She remained on anticoagulation for several months and has now been off anticoagulation for several years. H/o right leg Joseph's cyst and bursitis Discussion and Recomendations * Treat with dual antiplatelet therapy and beta-warren * DVT prophylaxis with enoxaparin * Monitor labs * Treatment of esophageal spasm/stricture and GERD is with the Hospitalist jeannette Clinical Quality Measures AMI/AHF: ASA po Prior to arrival: Yes DVT/VTE Risk/Contraindication: Risk Factor Score Per Nursin RFS Level Per Nursing on Admit: 4+=Very High LUIS GOLDSMITH MD FACP FAC CCDS Aug 21, 2019 16:34
[2019-08-21] MEDS: ANTACID SUSP 30 ML UDC (MYLANTA) PO SCH ×2 (17:22→20:34)
--- OUTSIDE RECORDS SUMMARY | 2019-08-21 18:02 | XMS REPORT | Clinical Summary ---
Author Author [facility] Organization [facility] Address Unknown Phone Unavailable Care Team Providers Care Gun Welder Name Role Phone Donna Brown RN Unavailable Unavailable Michael Mandujano MD Unavailable Alfonso Lino DO Unavailable Alfonso Keith MD Unavailable Eliud Brewer MD PCP Source Comments Some departments are not documenting in the electronic medical record. If you d o not see the information that you expected, contact Release of Information in formerly [facility] [employer] Management department at [phone] for further assistan ce in locating additional records.[facility] Allergies Comments Active Allergy Reactions Severity [...] needed. Active fluticasone (FLONASE) 50 Apply 1 [place] 0 mcg/actuation nasal spray to each nostril [...] operative note) 07/2017: UDS by Dr. Mccormack ([place]): I SD, OAB, mixed incontinence 04/18/18: PE: [...] Alvarez. She is seen Dr. Mccormack, in [place], [place] who performed UDS and in 07/2017, [...] l therapy if it is available in [place], [place]. All questions were ans wered and she is amenable to the plan. Vaginal Estrace cream 3 times weekly Discontinue Myrbetriq Start Trospium 60 XR daily PFPT with external referral to [facility] in 3-4 months Restless leg syndrome 06/03/2009 CAD (coronary artery disease) 06/03/2009 Overview: Hx of DE 4 yrs ago Depression 06/03/2009 Arthritis 06/03/2009 [...] on file) Description:Intraocular lens implants / / [id number]-Bxqnaut-05/7/2004 Stent Implanted: 01/27/2004 by Karina Rosales MD (Quantity not on file) Description:prox LAD Results Not on filefrom Last 3 Months Insurance Type Payer Benefit Subscriber ID Effective Phone Address Plan / Dates Group Medicare MEDICARE MEDICARE xxxxxxxxxxx 1995- PART A AND Present B Medicaid UHC MEDICAID [place] UHC xxxxxxxxxxx 2012-P COMMUNITY [place]AN [id number] Advance Directives 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
[2019-08-21] MEDS ORDERED: PROMETHAZINE INJ 25 MG/ML (PHENERGAN) AMP IVP PRN (18:30)
[2019-08-21] MEDS ORDERED: morphine INJ 4 MG/ML 1 ML (VIAL/SYRINGE) IV PRN (19:45)
[2019-08-21] MEDS ORDERED: NITROGLYCERIN 0.4 MG SL TABS BTL 25'S SL PRN (19:45)
[2019-08-21] MEDS ORDERED: ONDANSETRON 4 MG/2 ML (SDV) Z0FRAN IVP PRN (19:45)
[2019-08-21 20:00] VITALS: BP 165/78
[2019-08-21] MEDS: CATHETER FLUSH 10 ML SYR IV SCH ×2 (20:34→20:42)
[2019-08-21] MEDS: MEROPENEM 500 MG/SWFI 10 ML IV PUSH IV SCH ×2 (20:34)
[2019-08-21] MEDS ORDERED: rOPINIRole 5 MG TAB (REQUIP) PO SCH (21:00)
[2019-08-21] MEDS ORDERED: TEMAZEPAM 15 MG (RESTORIL) CAP PO ONE (21:00)
[2019-08-21] MEDS ORDERED: rOPINIRole 1 MG (REQUIP) TABLET ONE (22:20)
[2019-08-22 00:19] VITALS: BP 158/77
[2019-08-22] MEDS: CATHETER FLUSH 10 ML SYR IV SCH ×2 (03:42→05:14)
[2019-08-22] MEDS: MEROPENEM 500 MG/SWFI 10 ML IV PUSH IV SCH ×4 (03:42→11:01)
[2019-08-22 04:00] VITALS: BP 127/75
[2019-08-22 06:00] LABS: TRIGLYCERIDES 109 MG/DL (<150); VLDL CHOLESTEROL 22 MG/DL (5-40)
[2019-08-22 06:05] LABS: CHOLESTEROL 139 MG/DL (< 200)
[2019-08-22 06:06] LABS: HDL CHOLESTEROL 37 MG/DL (40-60)
[2019-08-22] MEDS: ANTACID SUSP 30 ML UDC (MYLANTA) PO SCH ×2 (07:50→13:03)
[2019-08-22] MEDS: ONDANSETRON 4 MG/2 ML (SDV) Z0FRAN IVP PRN (07:50)
[2019-08-22 08:20] VITALS: BP 137/84
[2019-08-22] MEDS ORDERED: ASPIRIN E.C. 81 MG (ECOTRIN) TAB PO SCH (09:00)
[2019-08-22] MEDS ORDERED: PANTOPRAZOLE 20 MG TABLET (PROTONIX) PO SCH (09:00)
[2019-08-22] MEDS ORDERED: CLOPIDOGREL 75 MG (PLAVIX) TABLET PO SCH (09:00)
[2019-08-22] MEDS ORDERED: ASPIRIN 81 MG CHEW (CHILDREN'S ASA) PO SCH (09:00)
[2019-08-22] MEDS ORDERED: meTOproloL SUCCINATE 50 MG (TOPROL XL) TAB PO SCH (09:00)
--- NOTE | 2019-08-22 09:36 | Progress Note - Cardiology ---
Cardiology SOAP Progress Note Subjective: Epigastric and lower substernal pain as before. Pain worse with eating solid food Has had nausea and some vomiting No syncope or palp or shortness of breath at rest Some gen malaise No focal weakness Objective: I&O/Vital Signs 08/21/19 08/22/19 08/22/19 08/22/19 23:32 00:00 00:19 01:00 Temp 37.0 Pulse 74 66 Resp 20 B/P (MAP) 158/77 (104) Pulse Ox 95 95 95 O2 Delivery Nasal Cannula Nasal Cannula Nasal Cannula O2 Flow Rate 3.00 3.00 FiO2 32 08/22/19 08/22/19 08/22/19 08/22/19 04:00 04:00 07:00 07:59 Temp 36.2 36.8 Pulse 58 61 Resp 16 B/P (MAP) 127/75 (92) Pulse Ox 96 96 O2 Delivery Nasal Cannula Nasal Cannula O2 Flow Rate 2.00 3.00 08/22/19 08:20 Temp 36.8 Pulse 60 Resp 18 B/P (MAP) 137/84 (101) Pulse Ox 97 O2 Delivery Nasal Cannula O2 Flow Rate 2.00 08/22/19 00:00 Intake Total 150 ml Balance 150 ml Weight (Pounds): 163 Weight (Ounces): 0.0 Weight (Calculated Kilograms): 73.633377 Constitutional: AAO x 3, well-developed, well-nourished Respiratory: No accessory muscle use, No respiratory distress; chest expansion is symmetric, chest is bilaterally symmetric Cardiovascular: regular rate-rhythm; No JVD; S1 and S2 Gastrointestional: tender (tenderness in epigastrium that she identifies the same or similar to discomfort that she presented with), round, audible bowel sounds Extremities: no lower extremity edema bilateral Neurologic/Psychiatric: oriented x 3, other (moves all limbs equally) Skin: No rash on exposed areas, No ulcerations on exposed areas Results/Procedures: Labs Laboratory Tests 08/21/19 11:30: White Blood Count 8.2, Red Blood Count 4.87, Hemoglobin 10.5L, Hematocrit 35, Mean Corpuscular Volume 73L, Mean Corpuscular Hemoglobin 22L, Mean Corpuscular Hemoglobin Concent 30L, Red Cell Distribution Width 22.9H, Platelet Count 335, Mean Platelet Volume 10.5H, Neutrophils (%) (Auto) 67, Lymphocytes (%) (Auto) 20, Monocytes (%) (Auto) 9, Eosinophils (%) (Auto) 4, Basophils (%) (Auto) 0, Neutrophils # (Auto) 5.5, Lymphocytes # (Auto) 1.6, Monocytes # (Auto) 0.7, Eosinophils # (Auto) 0.3, Basophils # (Auto) 0.0, Prothrombin Time 12.9, INR Co mment 0.9, Activated Partial Thromboplast Time 26, D-Dimer 0.38, Sodium Level 137, Potassium Level 4.2, Chloride Level 103, Carbon Dioxide Level 26, Anion Gap 8, Blood Urea Nitrogen 15, Creatinine 0.83, Estimat Glomerular Filtration Rate > 60, BUN/Creatinine Ratio 18, Glucose Level 126H, Calcium Level 9.9, Corrected Calcium 9.9, Magnesium Level 2.2, Total Bilirubin 0.4, Aspartate Amino Transf (AST/SGOT) 13, Alanine Aminotransferase (ALT/SGPT) 10, Alkaline Phosphatase 84, Myoglobin 28.0, Troponin I 0.059H, Total Protein 7.0, Albumin 4.0 08/21/19 12:06: Urine Color YELLOW, Urine Clarity SL CLOUDY, Urine pH 6.0, Urine Specific [place] 1.010L, Urine Protein NEGATIVE, Urine Glucose (UA) NEGATIVE, Urine Ketones NEGATIVE, Urine Nitrite POSITIVEH, Urine Bilirubin NEGATIVE, Urine Urobilinogen 0.2, Urine Leukocyte Esterase 2+H, Urine RBC (Auto) NEGATIVE, Urine RBC NONE, Urine WBC 50-100H, Urine Squamous Epithelial Cells RARE, Urine Crystals NONE, Urine Bacteria MODERATEH, Urine Casts NONE, Urine Mucus NEGATIVE, Urine Culture Indicated YES 08/21/19 13:00: B-Type Natriuretic Peptide 58.2 08/21/19 17:25: Troponin I < 0.028 08/21/19 23:35: Troponin I < 0.028 08/22/19 05:26: Triglycerides Level 109, Cholesterol Level 139, LDL Cholesterol Direct 95, VLDL Cholesterol 22, HDL Cholesterol 37L Microbiology 08/21/19 Urine Culture - Preliminary, Resulted Escherichia coli A/P: Assessment: Reproducible epigastric and lower substernal pain, likely to be of GI etiology (see GI issues noted below) One out of three troponins was minimally elevated; others were normal; minimal elevation appears to be false positive. No ECG evidence of acute ischemia. No evidence of acute coronary syndrome UTI - management per Medical services H/o chronic, intermittent chest and epigastric discomfort that appears to be d/t esophageal stricture and/or spasm. Distal esophageal fixed stricture with evidence of motility dysfunction and occasional tertiary contractions per barium swallow done on 08/09/2012. Esophageal stricture, gastritis and multiple other GI abnormalities reported on recent endoscopy by Dr Brooks (July 2019) Chronic abd discomfort due to multiple incisional hernias of the abdomen S/P abdominal surgery on 01-27-14 - perforated diverticulum treated with diverting colostomy which has been reversed S/p R hip replacement for hip fracture in early 2016 with chronic post-op pain in the R hip and leg Coronary artery disease with a history of drug eluting stenting of the left a nterior descending artery at [facility] in 2004. The stent is known to be a Taxus 3.5 mm x 16 mm stent. Last cardiac cath by Dr. Moore August 2013 showed mid and distal in stent restenosis and disease just distal to the stent. For these she underwent Promus Premier 2.5 x 28mm which overlaps the distal part of the old stent and extends distally beyond it MPI of August [address] Moore showed normal LV function with no wall motion abnormalities. Normal myocardial perfusion imaging. LVEF 64% Echocardiogram of Mar 2017 showed LVEF 60-65%. Trivial TR Hypertension Carotid u/s of April 2017 showed minimal plaque Anxiety and depression, currently controlled Degenerative joint disease. Chronic back pain which she receives epidural injections. Hyperlipidemia - intolerant to statins. Taking Zetia - followed by Dr. Brewer Gastroesophageal reflux disease. History of sleep apnea. History of deep vein thrombosis with pulmonary embolism in 2004. She remained on anticoagulation for several months and has now been off anticoagulation for several years. H/o right leg Joseph's cyst and bursitis Plan: * I had a long and detailed discussion with her regarding her CV issues. There is no evidence of ACS during this hospitalization. OK to d/c from cardiac standpoint. Outpt cardiac f/u advised * Treatment of esophageal spasm/stricture and GERD and incisional hernias and multiple other GI issues is with the Hospitalist svce Clinical Quality Measures AMI/AHF: ASA po Prior to arrival: Yes LUIS GOLDSMITH MD FACP FAC CCDS Aug 22, 2019 09:36
[2019-08-22] MEDS ORDERED: POTA10TA PO (09:52)
[2019-08-22] MEDS ORDERED: OXYC10TA7 PO (09:52)
[2019-08-22] MEDS ORDERED: FURO20TA4 PO (09:52)
[2019-08-22] MEDS ORDERED: MIRA50TA PO (09:52)
[2019-08-22] MEDS ORDERED: SUCR1ORA5 PO (09:52)
[2019-08-22] MEDS ORDERED: CLOP75TA69 PO (09:59)
[2019-08-22] MEDS ORDERED: FOSFOMYCIN 3 GM PACK (MONUROL) PO SCH (10:00)
[2019-08-22] MEDS ORDERED: ASPI-983 PO (10:02)
--- NOTE | 2019-08-22 10:02 | NUR ---
SPOKE WITH THE PT AND WENT THRU THE EXT MED HISTORY TO COMPLETE THE MED REC PT WAS ABLE TO NAME SOME OF HER MEDICATIONS BUT DID BETTER WHEN I NAMED THEM FROM THE EXT MED HISTORY THEN THE PT WAS ABLE TO TELL ME HOW/WHEN SHE TAKES EACH MEDICATION. OTC MEDS: BIOTIN ASPIRIN Addendum: 08/22/19 at 1008 by PATRICK SHAW CPhT I HAD SPOKEN WITH THE PT DURING A PREVIOUS ADMISSION (05-13-2019) AND SHE MENTIONED AN ADVAIR INHALER. ON 05-12 I COULD NOT FIND A PHARMACY THAT HAD FILLED IT OR A DR THAT HAD GIVEN A SAMPLE SO I DID NOT INCLUDE THIS ON THE MED REC. SAME SITUATION TODAY- PT MENTIONED THE MED, WHEN I ASKED WHERE SHE GOT IT SHE LISTED [facility]. THEY HAVE NO RECORD OF IT-- FOR THIS REASON I DID NOT INCLUDE THIS ON THE MED REC
[2019-08-22] MEDS ORDERED: PANT40TA3 PO ×2 (10:39→11:49)
[2019-08-22] MEDS ORDERED: NF-FOSFPKT PO ×2 (10:40→11:48)
--- NOTE | 2019-08-22 10:51 | Discharge Summary ---
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 Her initial troponin was mildly elevated at 0.05, but her repeats were negative. Cardiology was consulted and did not believe that she had acute coronary syndrome. Her chest pain was thought to be due to GERD with possible esophageal spasm. Her symptoms improved. She was discharged on an increased dose of PPI. She was continued on her Carafate. She was also continued on her aspirin and Plavix. Her course was complicated by a urinary tract infection. She has a history of ESBL urinary tract infections. She was started on meropenem and transition to oral fosfomycin. She should follow-up with cardiology and her primary care physician. Labs and Pending Lab Test: Laboratory Tests 08/21/19 11:30: White Blood Count 8.2, Red Blood Count 4.87, Hemoglobin 10.5L, Hematocrit 35, Mean Corpuscular Volume 73L, Mean Corpuscular Hemoglobin 22L, Mean Corpuscular Hemoglobin Concent 30L, Red Cell Distribution Width 22.9H, Platelet Count 335, Mean Platelet Volume 10.5H, Neutrophils (%) (Auto) 67, Lymphocytes (%) (Auto) 20, Monocytes (%) (Auto) 9, Eosinophils (%) (Auto) 4, Basophils (%) (Auto) 0, Neutrophils # (Auto) 5.5, Lymphocytes # (Auto) 1.6, Monocytes # (Auto) 0.7, Eosinophils # (Auto) 0.3, Basophils # (Auto) 0.0, Prothrombin Time 12.9, INR Co mment 0.9, Activated Partial Thromboplast Time 26, D-Dimer 0.38, Sodium Level 137, Potassium Level 4.2, Chloride Level 103, Carbon Dioxide Level 26, Anion Gap 8, Blood Urea Nitrogen 15, Creatinine 0.83, Estimat Glomerular Filtration Rate > 60, BUN/Creatinine Ratio 18, Glucose Level 126H, Calcium Level 9.9, Corrected Calcium 9.9, Magnesium Level 2.2, Total Bilirubin 0.4, Aspartate Amino Transf (AST/SGOT) 13, Alanine Aminotransferase (ALT/SGPT) 10, Alkaline Phosphatase 84, Myoglobin 28.0, Troponin I 0.059H, Total Protein 7.0, Albumin 4.0 08/21/19 12:06: Urine Color YELLOW, Urine Clarity SL CLOUDY, Urine pH 6.0, Urine Specific [place] 1.010L, Urine Protein NEGATIVE, Urine Glucose (UA) NEGATIVE, Urine Ketones NEGATIVE, Urine Nitrite POSITIVEH, Urine Bilirubin NEGATIVE, Urine Urobilinogen 0.2, Urine Leukocyte Esterase 2+H, Urine RBC (Auto) NEGATIVE, Urine RBC NONE, Urine WBC 50-100H, Urine Squamous Epithelial Cells RARE, Urine Crystals NONE, Urine Bacteria MODERATEH, Urine Casts NONE, Urine Mucus NEGATIVE, Urine Culture Indicated YES 08/21/19 13:00: B-Type Natriuretic Peptide 58.2 08/21/19 17:25: Troponin I < 0.028 08/21/19 23:35: Troponin I < 0.028 08/22/19 05:26: Triglycerides Level 109, Cholesterol Level 139, LDL Cholesterol Direct 95, VLDL Cholesterol 22, HDL Cholesterol 37L Microbiology 08/21/19 Urine Culture - Preliminary, Resulted Escherichia coli Home Meds Active Monurol (Fosfomycin Tromethamine) 3 Gm Pack 3 Gm PO Q72H 6 Days Pantoprazole Sodium 40 Mg Tablet.dr 40 Mg PO BID 30 Days Reported Aspirin EC (Aspirin) 81 Mg Tablet.dr 81 Mg PO DAILY Plavix (Clopidogrel Bisulfate) 75 Mg Tablet 75 Mg PO DAILY Carafate (Sucralfate) 1 Gm/10 Ml Oral.susp 10 Ml PO QIDACHS PRN Myrbetriq (Mirabegron) 50 Mg Tab.er.24h 50 Mg PO DAILY Oxycodone HCl 10 Mg Tablet 10 Mg PO Q4 -6H PRN K-Tab ER (Potassium Chloride) 10 Meq Tablet.er 10 Meq PO MO,WE,FR Furosemide 20 Mg Tablet 20 Mg PO MO,WE,FR Biotin 10 Mg Tablet 10 Mg PO DAILY Pregabalin 150 Mg Capsule 150 Mg PO BID Ezetimibe 10 Mg Tablet 10 Mg PO DAILY Albuterol Sulfate 2.5 Mg/0.5 Ml Vial.neb 2.5 Mg INH Q4H PRN Metoprolol Succinate 50 Mg Tab.er.24h 50 Mg PO DAILY Ropinirole HCl 4 Mg Tablet 8 Mg PO HS TAKES 2 (4MG) TABS TO EQUAL 8MG AT BEDTIME Ativan (Lorazepam) 1 Mg Tablet 1 Mg PO TID PRN Temazepam 15 Mg Capsule 15-30 Mg PO HS PRN TAKES 1 TO 2 (15MG) CAPS AT BEDTIME NEEDED Duloxetine HCl 60 Mg Capsule.dr 60 Mg PO DAILY Nitroglycerin 0.4 Mg Tab.subl 0.4 Mg SL UD PRN Levothyroxine Sodium 112 Mcg Tablet 112 Mcg PO DAILY Assessment/Pt Instructions Take medications as prescribed. Complete her course of antibiotics even if you're feeling better. Increase your dose of Protonix. Follow-up with Dr. Rosales. Follow-up with Dr. Brewer. Discharge Planning: <30 minutes discharge planning Discharge Instructions Discharge Diet: Low Sodium Diet Activity as Tolerated: Yes Consultations Cardiology Discharge Physical Examination Vital Signs Vital Signs Date Time Temp Pulse Resp B/P (MAP) Pulse Ox O2 Delivery O2 Flow Rate FiO2 08/22/19 09:00 96 Room Air 08/22/19 08:20 36.8 60 18 137/84 (101) 2.00 08/21/19 23:32 32 General Appearance: No Apparent Distress, Obese HEENT: PERRL/EOMI, Pharynx Normal Respiratory: Lungs Clear, Normal Breath Sounds, No Respiratory Distress Cardiovascular: Regular Rate, Rhythm, No Edema, No Murmur Gastrointestinal: Normal Bowel Sounds, Soft, Hernia, Tenderness Extremity: Normal Inspection, Non Tender, No Pedal Edema Skin: Normal Color, Warm/Dry Neurologic/Psychiatric: Alert, Oriented x3, No Motor/Sensory Deficits, Normal Mood/Affect Allergies: Coded Allergies: cephalexin (Verified Allergy, Severe, CONFUSION, DIZZINESS, 07/02/19) ciprofloxacin (Verified Allergy, Intermediate, SKIN BURNING, 07/02/19) sulfamethoxazole (Verified Allergy, Intermediate, Vomiting, 07/09/19) trimethoprim (Verified Allergy, Intermediate, Vomiting, 07/09/19) erythromycin base (Verified Allergy, Unknown, 07/02/19) quinine (Verified Allergy, Unknown, 07/02/19) Copy Copies To 1: TORIBIO BREWER DO Discharge Summary Date of Admission Aug 21, 2019 at 12:50 Date of Discharge Discharge Date: Aug 22, 2019 Discharge Time: 10:49 Consults/Procedures Consulations Cardiology Discharge Diagnosis (1) UTI (urinary tract infection) Status: Acute Qualifiers: Qualified Codes: N30.00 - Acute cystitis without hematuria (2) 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
--- NOTE | 2019-08-22 11:48 | NUR ---
CM/SS: Visited with pt as per plan for discharge Plan: Pt to return home with caregivers round the clock in place Summary: Pt is ok to return home, as she has caregivers in place round the clock. Pt reports she will be in contact with her [facility] Costume Design Teacher to let her know she was in ER and hospital. She reports her name Costume Design Teacher is Charisse Lees. Pt feels as if she has adequate hours in place and that she would like to have a break from time to time. Pt reports her son and daughter also check on her on the weekends when her caregivers are not working. Overall pt reports her needs are being met. Pt has had [facility] in the past. Plan is for pt's daughter to pick her up in an hours or so. Pt thanked this worker for visiting. Addendum: 08/22/19 at 1601 by KATLIN PLASCENCIA SS CM/SS: Costume Design Teacher for [facility] notified that pt was discharged from the hospital today to home. She will follow up with pt once home.
[2019-08-22 12:00] VITALS: BP 127/81
[2019-08-22] MEDS ORDERED: ENOXAPARIN 40 MG/0.4 ML (LOVENOX) SYR SC SCH (13:00)
[2019-08-22 13:15] VITALS: BP 127/81
--- NOTE | 2019-08-22 13:15 | NUR ---
WEST SADLER demonstrates understanding of discharge instructions and accurately returns instructions upon questioning. Copy of Post-Discharge Instructions given to PT. WEST SADLER is able to manage continuing needs after discharge. Patients belongings returned to PT. Patient discharged from 7-1 on 08/22/19 at 1315. WEST SADLER left floor via W/C, accompanied by STAFF AND DAUGHTER PER AUTO.
--- NOTE | 2019-08-22 13:19 | NUR ---
RD ASSESSMENT PMHx: CAD; HTN; HLD; GERD; DVT; COPD; MS; chronic UTI; diverticulosis; esophagitis PT INTERACTION: Pt was awake and pleasant during nutrition assessment. Pt states current appetite is good. Note PO intake of 50% x1meal, per chart review. Pt states following a regular diet at home, and has no issues with chewing/swallowing food. Pt states some recent issues with nausea, vomiting, and constipation, and that her last BM was "about 1 week ago." Note pt not currently on bowel regimen per chart review. Pt states no recent wt changes. Note recent 14# wt loss x1mon, per chart review. ABNORMAL NUTRITION-RELATED LAB VALUES LOW: HIGH: glu 125 Est. kcal needs: 3960-4281 kcal | 15-20 kcal/kg Est. Pro needs: 63-79 g Pro | 0.8-1.0 g Pro/kg PES STATEMENT: Inadequate oral intake (NI-2.1) related to nausea | vomiting | constipation as evidenced by pt interview | PO intake 50% x1meal INTERVENTION: Continue with current diet order of Regular diet. Add Ensure Enlive (vary) to meals TID, for increased kcal intake. Provides 350 kcal and 13 g Pro per serving. will continue to follow and reassess as pt needs, intake, and status change. MONITOR/EVALUATE: PO Intake; Plan of Care; Hydration Status; Weight Status; Lab Values Tarik Kirkpatrick, MS, RD, LD
== END 2019-08-22 13:15 | disposition home or self-care (01) ==
LOC: EDUNIT# 11:13 → ER 11:14 → CSD 12:50
PROVIDERS: ADMIT Family Medicine; ATTEND Family Medicine
DX: K21.9 Gastro-esophageal reflux disease without esophagitis (principal); N39.0 Urinary tract infection, site not specified; R79.89 Other specified abnormal findings of blood chemistry; I10 Essential (primary) hypertension; E78.5 Hyperlipidemia, unspecified; G47.33 Obstructive sleep apnea (adult) (pediatric); Z86.711 Personal history of pulmonary embolism; Z86.718 Personal history of other venous thrombosis and embolism; I25.10 Atherosclerotic heart disease of native coronary artery without angina pectoris; F41.9 Anxiety disorder, unspecified; F32.9 Major depressive disorder, single episode, unspecified; E66.9 Obesity, unspecified; Z68.31 Body mass index [BMI] 31.0-31.9, adult; J44.9 Chronic obstructive pulmonary disease, unspecified; E03.9 Hypothyroidism, unspecified; R13.10 Dysphagia, unspecified; D64.9 Anemia, unspecified; M54.9 Dorsalgia, unspecified; M81.0 Age-related osteoporosis without current pathological fracture; M19.91 Primary osteoarthritis, unspecified site; I25.2 Old myocardial infarction; Z95.5 Presence of coronary angioplasty implant and graft; Z87.891 Personal history of nicotine dependence; Z90.49 Acquired absence of other specified parts of digestive tract; Z90.710 Acquired absence of both cervix and uterus; Z90.89 Acquired absence of other organs
CPT/HCPCS: 71045; 80053; 80061; 81000; 83735; 83874; 83880; 84484; 85025; 85379; 85610; 85730; 87077; 87088; 87186; 93005 ×2; 93041; 94760; 99284; G0378; 36415; 96372

== ENCOUNTER → 2019-09-02 | Outpatient (CLI) | payer MEDICARE, MEDICAID ==
[~2019-09-02] MED LIST changes: +CATHETER FLUSH 10 ML SYR IV PRN; +CLOP75TA69 PO; +FURO20TA4 PO; +HOLD METFORMIN - RECEIVED CONTRAST 20 ML VIAL IV SCH; +IOHEXOL 350 MG/ML 100 ML (OMNIPAQUE 350) VIAL IV ONE; +NF-FOSFPKT PO; +NS 100 ML (IVPB) BAG IV ONE; +POTA10TA PO
--- NOTE | 2019-09-02 13:12 | Diagnostic Imaging Report ---
PROCEDURE: CT angiography of the chest with contrast. TECHNIQUE: Multiple contiguous axial images were obtained through the chest after uneventful bolus administration of intravenous contrast. 3D reconstructed CTA MIP acquisitions were also performed. Auto Exposure Controls were utilized during the CT exam to meet ALARA standards for radiation dose reduction. INDICATION: Shortness of air and COPD. Patient was recently diagnosed with colon carcinoma. COMPARISON: Correlation is made with prior CT chest from 10/09/2018. FINDINGS: Central pulmonary arteries are widely patent. Lobar pulmonary arteries appear to be patent. There is questionable filling defects versus artifact involving right lower lobe segmental and subsegmental pulmonary arteries. Small emboli cannot be entirely excluded. The remainder of lung fallon demonstrate a well-opacified pulmonary arteries. There is no pericardial or pleural fluid. No pulmonary infiltrates, nodules or masses are seen. Upper abdomen does show a midline fat-containing ventral hernia with diastases of the rectus abdominis musculature. IMPRESSION: 1. Questionable artifact versus small pulmonary emboli involving segmental and subsegmental branches of the right lower lobe. No central pulmonary emboli or lobar pulmonary emboli are seen. No other abnormality in the chest is identified. 2. Rectus abdominis diastases with midline fat-containing ventral hernia in upper abdomen. Dictated by: Dictated on workstation # [id number]
--- NOTE | 2019-09-02 13:46 | Diagnostic Imaging Report ---
PROCEDURE: US Venous Lower Ext Tyrell. INDICATION: Shortness of breath, bilateral leg swelling. TECHNIQUE: Grayscale with color-flow and Doppler waveform evaluation of the bilateral lower extremity deep venous systems. CORRELATION STUDY: None FINDINGS: Color and grayscale sonographic images demonstrate no intraluminal defect within the visualized portion of the common femoral, superficial femoral and/or popliteal veins to suggest thrombus formation. These vessels demonstrate normal response to compression and augmentation. No soft tissue fluid collection. IMPRESSION: 1. Negative for deep venous thrombosis of either leg. Dictated by: Dictated on workstation # [id number]
== END ==
LOC: RAD 11:49
PROVIDERS: ATTEND Nurse Practitioner Family
DX: J44.9 Chronic obstructive pulmonary disease, unspecified (principal); C18.9 Malignant neoplasm of colon, unspecified; K43.9 Ventral hernia without obstruction or gangrene; M62.08 Separation of muscle (nontraumatic), other site; J98.4 Other disorders of lung; D64.9 Anemia, unspecified; G47.36 Sleep related hypoventilation in conditions classified elsewhere; R22.43 Localized swelling, mass and lump, lower limb, bilateral
CPT/HCPCS: 71275; 93970

== ENCOUNTER 2019-09-09 05:39 | Outpatient (RCR) | payer MEDICARE, MEDICAID ==
[~2019-09-09] VITALS: Ht 154 cm; Wt 80.4 kg
[~2019-09-09 05:39] MED LIST changes: +ASPI-1238 PO; -ASPI-983 PO; -CATHETER FLUSH 10 ML SYR IV PRN; -HOLD METFORMIN - RECEIVED CONTRAST 20 ML VIAL IV SCH; -IOHEXOL 350 MG/ML 100 ML (OMNIPAQUE 350) VIAL IV ONE; -NS 100 ML (IVPB) BAG IV ONE; -OXYC-465 PO; +OXYC-556 PO; -PANT40TA3 PO; +PANT40TA52 PO
[2019-09-09] MEDS ORDERED: BENZ100C18 PO (09:06)
[2019-09-09] MEDS ORDERED: VENL37.52 PO (09:06)
[2019-09-09] MEDS ORDERED: DICY20TA10 PO (09:06)
[2019-09-09] MEDS ORDERED: RT-ALBUINH IH (09:06)
[2019-09-09] MEDS ORDERED: ONDN4T PO (09:06)
[2019-09-09] MEDS ORDERED: LACT10SO PO (09:06)
[2019-09-09] MEDS ORDERED: GUAI237L82 PO (09:06)
[2019-09-09] MEDS ORDERED: PROM25TA14 PO (09:06)
[2019-09-09] MEDS ORDERED: ESZO2TAB4 PO (09:06)
[2019-09-09] MEDS ORDERED: LOPE-175 PO (09:06)
[2019-09-09] MEDS ORDERED: GABA300C PO (09:06)
[2019-09-09] MEDS ORDERED: FLUT1DIS26 IH (09:06)
[2019-09-09 09:07] VITALS: BP 125/62
[2019-09-14] MEDS ORDERED: OXYC10TA7 PO (13:47)
[2019-09-25] MEDS ORDERED: CYCL1DRO OU (08:49)
[2019-09-25] MEDS ORDERED: ESZO2TAB31 PO (08:49)
[2019-09-25] MEDS ORDERED: NITR100C10 PO (08:49)
[2019-09-25] MEDS ORDERED: FLUT9.9S NS (10:24)
[2019-09-25] MEDS ORDERED: PANT40TA52 PO (10:24)
[2019-09-26] MEDS ORDERED: AMOX-355 PO (11:26)
== END 2019-12-08 | disposition home or self-care (01) ==
LOC: PREOP 05:39
PROVIDERS: ATTEND Surgery
DX: Z01.812 Encounter for preprocedural laboratory examination (principal); C18.9 Malignant neoplasm of colon, unspecified; Z20.828 Contact with and (suspected) exposure to other viral communicable diseases; Z11.2 Encounter for screening for other bacterial diseases
CPT/HCPCS: 87081; 87635

== ENCOUNTER 2019-09-11 07:43 | Inpatient (IN) | payer MEDICARE, MEDICAID ==
[2019-09-11] VITALS (10 sets, daily range): BP systolic 120–153; BP diastolic 62–81
[~2019-09-11] VITALS: Ht 154 cm; Wt 80.4 kg
[~2019-09-11 07:43] MED LIST changes: -ASPI-1238 PO; +ASPI-983 PO; +ESZO2TAB4 PO; +FLUT1DIS26 IH; +GABA300C PO; +GUAI237L82 PO; +LACT10SO PO; +LOPE-175 PO; +OXYC-465 PO; -OXYC-556 PO; +PANT40TA3 PO; -PANT40TA52 PO; +RT-ALBUINH IH
--- NOTE | 2019-09-11 08:08 | Progress Note-Pre Operative ---
Pre-Operative Progress Note H&P Reviewed The H&P was reviewed, patient examined and no changes noted. Time Seen by Provider: 08:05 Date H&P Reviewed: Sep 11, 2019 Time H&P Reviewed: 08:06 Pre-Operative Diagnosis: Right colon CA LEXUS NELSON DO Sep 11, 2019 08:08
[2019-09-11] MEDS ORDERED: CLINDAMYCIN 600 MG/50 ML IVPB 50 ML IV ONE (08:30)
[2019-09-11] MEDS ORDERED: metroNIDAZOLE 500MG/100ML IVPB 100 ML IV ONE (08:30)
[2019-09-11] MEDS ORDERED: MIDAZOLAM 2 MG/2 ML (VERSED) VIAL ONE (09:13)
[2019-09-11] MEDS ORDERED: FAMOTIDINE 20MG/2ML IV (PEPCID) ONE (09:14)
[2019-09-11] MEDS: LACTATED RINGERS 1,000 ML IV PRN ×2 (09:26→11:50)
[2019-09-11] MEDS ORDERED: MIDAZOLAM 2 MG/2 ML (VERSED) VIAL IVP ONE (09:30)
[2019-09-11] MEDS ORDERED: FAMOTIDINE 20MG/2ML IV (PEPCID) IVP ONE (09:30)
[2019-09-11] MEDS ORDERED: LACTATED RINGERS 1,000 ML IV PRN (09:49)
[2019-09-11] MEDS ORDERED: proPOfol 200 MG/20 ML (DIPRIVAN) VIAL IV ONE (09:59)
[2019-09-11] MEDS ORDERED: LIDOCAINE PF 2% 5 ML (XYLOCAINE) VIAL ONE (09:59)
[2019-09-11] MEDS ORDERED: SEVOFLURANE (ULTANE) 15 ML INHAL SOLN ONE ×7 (09:59→12:53)
[2019-09-11] MEDS ORDERED: fentaNYL INJECTION 100 MCG/2 ML AMP ONE (09:59)
[2019-09-11] MEDS ORDERED: ROCURONIUM 10 MG/ML 5 ML SYRINGE IV ONE ×2 (09:59→10:03)
[2019-09-11] MEDS ORDERED: MIDAZOLAM 2 MG/2 ML (VERSED) VIAL IV ONE (10:00)
[2019-09-11] MEDS ORDERED: BUP/EPI 0.5% 1:200,000 (SENSORCAINE) 30 ML VIAL ONE (10:00)
[2019-09-11] MEDS ORDERED: ONDANSETRON 4 MG/2 ML (SDV) Z0FRAN ONE ×3 (10:03→14:03)
[2019-09-11] MEDS ORDERED: NEOSTIGMINE 3 MG/3 ML VIAL ONE (12:00)
[2019-09-11] MEDS ORDERED: GLYCOPYRROLATE 0.2 MG/ML (ROBINUL) 2 ML VIAL ONE (12:00)
[2019-09-11] MEDS ORDERED: morphine INJ 10 MG/ML 1ML (SYR OR VIAL) ONE (12:55)
[2019-09-11] MEDS ORDERED: morphine INJ 10 MG/ML 1ML (SYR OR VIAL) IVP ONE (13:00)
[2019-09-11] MEDS ORDERED: HYDROmorphone 2 MG/ML VIAL (DILAUDID) IV ONE (13:00)
[2019-09-11] MEDS ORDERED: HYDROmorphone 2 MG/ML VIAL (DILAUDID) ONE (13:14)
--- NOTE | 2019-09-11 13:21 | Progress Note-Post Operative ---
Post-Operative Progess Note Surgeon (s)/Rpg Programmer Analyst (s) Surgeon LEXUS NELSON DO Rpg Programmer Analyst: Emiliana Pre-Operative Diagnosis Right colon CA Post-Operative Diagnosis Venous Insufficiency Right Colon CA Adhesions Intestinal insufficiency Procedure & Operative Findings Date of Procedure 09/11/19 Procedure Performed/Findings US guided Left IJ insertions Right Colectomy Partial Small Bowel Resection EMEKA Removal of foreign bodies Anesthesia Type GET Estimated Blood Loss Estimated blood loss (mL): appx 100ml Specimens/Packing Specimens Removed Foreign objects Cecum, Asc colon and portion of TI Small bowel LEXUS NELSON DO Sep 11, 2019 13:21
[2019-09-11] MEDS: ONDANSETRON 4 MG/2 ML (SDV) Z0FRAN IVP PRN ×2 (13:23→14:08)
--- NOTE | 2019-09-11 13:45 | NUR ---
TRANSFERRED FROM R.R. TO ROOM 410 PER BED. ALERT AND COOPERATIVE. SKIN W/D. INC. TO MIDLINE WITH MOD. AMT. RED SHADOWING TO ISLAND DRESSING. IV SITE TO LEFT SIDE NECK WITH TRIPLE LUMEN NOTED. SALINE LOCK TO LEFT HAND. ADAMS CATH WITH CLEAR LT. VALERIA URINE NOTED. DEEP BREATHING ENCOURAGED. RATES PAIN 10/10 TO ABD. AREA.
[2019-09-11] MEDS ORDERED: morphine INJ 4 MG/ML 1 ML (VIAL/SYRINGE) ONE (14:03)
[2019-09-11] MEDS ORDERED: NS IV 1000 ML 1,000 ML ONE (14:03)
[2019-09-11] MEDS: morphine INJ 4 MG/ML 1 ML (VIAL/SYRINGE) IVP PRN (14:09)
[2019-09-11] MEDS ORDERED: KETOROLAC 15 MG/ML VIAL ONE (14:15)
[2019-09-11] MEDS: KETOROLAC 15 MG/ML VIAL IVP SCH ×2 (14:21→19:45)
[2019-09-11] MEDS: LACTATED RINGERS 1,000 ML IV SCH ×2 (15:19→22:24)
[2019-09-11] MEDS: ACETAMINOPHEN 500 MG TAB (TYLENOL) PO SCH ×2 (15:19→20:16)
--- NOTE | 2019-09-11 17:34 | NUR ---
SLEEPING FREQUENTLY. ADAMS WITH SMALL AMT. YELLOW LT. VALERIA URINE. [address] NELSON NOTIFIED OF LOW URINE OUTPUT AND STATED TO WATCH PT. VF=902/60 P=68 RESP=16 O2 SAT=98 % ON O2 AT 2 L PER MIN PER N/C.
[2019-09-11] MEDS: metroNIDAZOLE 500MG/100ML IVPB 100 ML IV SCH (19:45)
[2019-09-12 00:08] VITALS: BP 148/83
[2019-09-12] MEDS: KETOROLAC 15 MG/ML VIAL IVP SCH ×4 (02:12→20:01)
[2019-09-12] MEDS: metroNIDAZOLE 500MG/100ML IVPB 100 ML IV SCH (02:14)
--- NOTE | 2019-09-12 02:30 | OPERATIVE REPORT ---
DATE OF SERVICE: 09/11/2019 PREOPERATIVE DIAGNOSES: Right colon cancer and venous insufficiency. POSTOPERATIVE DIAGNOSES: 1. Ascending colon cancer. 2. Venous insufficiency. 3. Adhesions. 4. Retained foreign body. 5. Intestinal insufficiency. PROCEDURES PERFORMED: 1. Ultrasound-guided central line insertion. 2. Right colon resection. 3. Small bowel resection. 4. Removal of foreign body. 5. Lysis of adhesions. SURGEON: Valentín Brooks DO TUBE CUTTER: Donnie Hopson DO ANESTHESIA: General endotracheal tube. SPECIMENS: 1. Portion of cecum, ascending colon and terminal ileum. 2. Approximately 3 to 4 feet of small bowel. 3. Retained foreign bodies. ESTIMATED BLOOD LOSS: Approximately 100 mL. FLUIDS: Per anesthesia. POSTOPERATIVE CONDITION: Stable. INDICATIONS FOR PROCEDURE: The patient is an 79-year-old female, who during a colonoscopy, found a mass unfortunately it turned out to be colon cancer. She has a long history of multiple abdominal surgeries with large hernias and previous mesh. Prior to OR, they had a very hard time getting an IV in, could only get a 24-gauge in her hand, so she has some venous insufficiency and I was asked to place a central line prior to surgery. FINDINGS: The patient had a central line placed. She had a right colon removed and a portion of small bowel removed and a lot of retained foreign bodies, these were basically corkscrew tacks that were attached to bowel that were needed to be removed, probably removed about 10-12 of them at least. PROCEDURE NOTE: After informed consent was obtained, the patient was brought to the operating room. She was placed on the table in supine position. First, did our timeout and then started with the central line using ultrasound guidance. The patient was sterilely prepped and draped and then found the left IJ, was very small even in Trendelenburg, but able to cannulate on the second attempt, good flash of blood, removed the syringe and then placed the guidewire down the needle using Seldinger technique, it went in easily, checked with ultrasound to see the guidewire going down, made a stab incision along the guidewire, then over the guidewire, placed dilated using Seldinger technique and then removed this and then over the guidewire, placed a triple lumen catheter using Seldinger technique, it went in easily and then removed the guidewire and then placed the locking ports on the triple lumen catheter aspirated and flushed all of the good flash of blood and easily flushed. Central line placed with a 3-0 nylon. At this point, the patient then was sterilely prepped and draped in the abdomen. We were thinking about doing a laparoscopic hand-assisted, but started the midline incision with a #15 blade, carried down through the skin into the subcutaneous tissue, deepened down to the subcutaneous tissue with Bovie electrocautery down to the fascia, really did not have any fascia in the midline, encountered a hernia sac, carefully started going through here, able to visualize some the previous mesh and then lots of corkscrew tacks, some of these tacks were attached to the small intestine and as we carefully started taking down adhesions. The lysis of adhesions took at least an hour to get everything freed up, so we could visualize and during this time, we were removing the corkscrew tacks because they were attached to some of the bowel, removed about 10-12 of those. Once we were able to get into the right side of the abdomen and everything free, we were able to identify the cecum and right colon and terminal ileum, picked a spot about 4 cm from the ileocecal valve on the terminal ileum and then made a defect in the mesentery with the Bovie electrocautery and then used a MED across here, clamped and fired thereby transecting and then freed up along the white line of Toldt and the peritoneum freeing the colon going all the way up to the hepatic flexure, taking down adhesions. There was some omentum adhesed to the liver, able to carefully take all these down and carefully rotate the colon midline, could feel this. Colon cancer was up about 5 to 6 cm from the cecum, able to go about 5 to 6 cm past this, made a defect in the mesentery with a Bovie electrocautery and then placed another MED, clamped and fired by transecting and then started coming across the mesentery with the LigaSure, clamping, coagulating and transecting in a stepwise fashion. While doing this, noted it was a very thickened, continued to come across and then once we got all of the colon out, passed this off the table. At this time; however, noted that the small bowel was starting to from a loss of blood supply. Because of previous surgeries it appears that it had been very entangled with the mesentery of the colon and so because of this intestinal insufficiency, we had to remove about 3 to 4 feet of small bowel. We freed up the small bowel out of the pelvis, so we could get to the area that was getting good blood supply then made a defect in the mesentery with Bovie electrocautery. Throughout this good portion of the small bowel up to the remaining portion of the ascending colon just in front of the hepatic flexure, made a hole in the tinea of the ascending colon and a hole in the small intestine, put the small side of the MED in the small intestine and large side in the colon, clamped these together and then held for 30 seconds and then fired creating a [id number] functional end-to-end anastomosis. Using towel clamps to close the enterocolotomy above this and then using another MED reload to close this enterocolotomy. This primary anastomosis and then at this point, removed all of this small bowel and passed this off the table. We then copiously irrigated with normal saline and the anastomosis looked good. Good blood supply noted to small intestine and then at this point, elected to close the incision, we closed with 0 Prolene because we were not repairing her hernia and closing some of the fascia and some previous mesh together started at the superior and ran it distally, tied to itself and then ran another one and then tied to itself, so used 2-0 Prolene sutures to close the midline, copiously irrigated with normal saline and then closed the skin with elli. The area was cleaned and dried, dressing placed. The patient tolerated the procedure. She was transferred to recovery room in stable condition. Sponge and needle counts correct at the end of the case. Dr. Hopson assisted in this case helping to make incision, close incision, identify anatomy, and do some lysis of adhesions. Job ID: [id number] DocumentID: [id number] Dictated Date: 09/11/2019 13:37:56 Assembly Department Supervisor Date: 09/11/2019 23:22:01 Dictated By: DO ABBI RODRÍGUEZ
[2019-09-12 04:00] VITALS: BP 136/76
[2019-09-12] MEDS: LACTATED RINGERS 1,000 ML IV SCH ×3 (05:13→22:51)
[2019-09-12] MEDS: morphine INJ 4 MG/ML 1 ML (VIAL/SYRINGE) IVP PRN ×5 (05:29→22:42)
[2019-09-12] MEDS: ACETAMINOPHEN 500 MG TAB (TYLENOL) PO SCH ×3 (05:29→20:28)
--- NOTE | 2019-09-12 07:29 | Anesthesia-General Post-Op ---
General Patient Condition Mental Status/LOC: Same as Preop Cardiovascular: Satisfactory Nausea/Vomiting: Absent Respiratory: Satisfactory Pain: Controlled Complications: Absent Post Op Complications Complications None Follow Up Care/Instructions Patient Instructions None needed. Anesthesia/Patient Condition Patient Condition Patient is doing well, no complaints, stable vital signs, no apparent adverse anesthesia problems. No complications reported per nursing. STACI ADAMS CRNA Sep 12, 2019 07:29
[2019-09-12 08:00] VITALS: BP 120/74
[2019-09-12 11:44] VITALS: BP 137/75
--- NOTE | 2019-09-12 11:58 | NUR ---
Pt not eating today.
[2019-09-12] MEDS: ENOXAPARIN 40 MG/0.4 ML (LOVENOX) SYR SC SCH (13:33)
--- NOTE | 2019-09-12 13:42 | Progress Note - Surgery ---
Subjective Time Seen by a Provider: 13:09 Subjective/Events-last exam Pt seen and examined, states she is doing well and pain controlled. Tolerating clears, no flatus or BM yet. Review of Systems General: Fatigue Pulmonary: No Dyspnea, No Cough Cardiovascular: No: Chest Pain Gastrointestinal: No: Nausea, Vomiting Objective Exam Vital Signs Date Time Temp Pulse Resp B/P (MAP) Pulse Ox O2 Delivery O2 Flow Rate FiO2 09/12/19 11:44 36.6 68 20 137/75 (95) 98 Nasal Cannula 2.00 09/12/19 09:00 100 Nasal Cannula 2.00 09/12/19 08:00 36.7 76 18 120/74 (89) 100 Nasal Cannula 2.00 09/12/19 06:37 Nasal Cannula 2.00 09/12/19 04:00 36.8 83 20 136/76 (96) 99 Nasal Cannula 2.00 09/12/19 00:08 36.8 81 21 148/83 (104) 98 Nasal Cannula 2.00 09/11/19 20:35 Nasal Cannula 2.00 09/11/19 20:13 36.9 92 17 139/81 (100) 96 Nasal Cannula 2.00 09/11/19 15:51 36.0 89 15 120/69 (86) 94 Nasal Cannula 2.00 09/11/19 15:36 97 Nasal Cannula 2.00 09/11/19 13:45 36.0 68 16 128/72 (90) 92 Nasal Cannula 2.00 09/11/19 13:45 36.1 14 136/64 (88) 98 Nasal Cannula 2 09/11/19 13:45 Nasal Cannula 2.00 09/11/19 13:45 Nasal Cannula 2 I & O 09/12/19 07:00 Intake Total 1250 ml Output Total 750 ml Balance 500 ml Capillary Refill : Less Than 3 SecondsLess Than 3 Seconds General Appearance: No Apparent Distress, Obese Respiratory: Lungs Clear, Normal Breath Sounds, No Accessory Muscle Use, No Respiratory Distress Cardiovascular: Regular Rate, Rhythm, No Murmur Gastrointestinal: soft; No distended; other (Inc C/D/I) Assessment/Plan Assessment/Plan Assessment/Plan S/P Colon Resection, SBR Pt encouraged to ambulate and continue using IS. Will keep on clears until she passes some gas. Pt asked for sleeping pill, so I restarted her home meds. Lee d/c'd and IV heplocked. LEXUS NELSON DO Sep 12, 2019 13:42
[2019-09-12] MEDS ORDERED: RT-ALBUTEROL SULF 2.5 MG/3 ML PRE-MIX VIAL INH PRN (13:45)
[2019-09-12] MEDS ORDERED: RT-ALBUTEROL SULF 2.5 MG/3 ML PRE-MIX VIAL IH PRN (13:45)
[2019-09-12] MEDS ORDERED: NITROGLYCERIN 0.4 MG SL TABS BTL 25'S SL PRN (13:45)
[2019-09-12 16:48] VITALS: BP 139/65
[2019-09-12 20:17] VITALS: BP 157/69
[2019-09-12] MEDS: ZOLPIDEM 5 MG (AMBIEN) TAB PO SCH (20:28)
[2019-09-13] VITALS (7 sets, daily range): BP systolic 115–156; BP diastolic 65–84
[2019-09-13] MEDS: KETOROLAC 15 MG/ML VIAL IVP SCH ×4 (01:26→21:03)
[2019-09-13] MEDS: ACETAMINOPHEN 500 MG TAB (TYLENOL) PO SCH ×3 (05:24→21:03)
[2019-09-13] MEDS: ADVAIR HFA 115/21 MCG INHALER 8 GM IH SCH (07:55)
[2019-09-13] MEDS: LEVOTHYROXINE 112 MCG (LEVOTHROID) TAB PO SCH (08:44)
[2019-09-13] MEDS: meTOproloL SUCCINATE 50 MG (TOPROL XL) TAB PO SCH (08:44)
--- NOTE | 2019-09-13 09:43 | Progress Note - Surgery ---
Subjective Time Seen by a Provider: 09:18 Subjective/Events-last exam Pt seen and examined, states she passed some gas but also has some "cramps". She had bad nightmares from the morphine and is stating her hiatal hernia is causing problems. She also is asking for more to eat than clears, but needs adhesive for her dentures. Review of Systems General: Fatigue, Malaise Pulmonary: No Dyspnea, No Cough Cardiovascular: No: Chest Pain, Palpitations Gastrointestinal: Abdominal Pain (mild); No: Nausea, Vomiting Objective Exam Vital Signs Date Time Temp Pulse Resp B/P (MAP) Pulse Ox O2 Delivery O2 Flow Rate FiO2 09/13/19 09:00 100 Nasal Cannula 1.00 09/13/19 08:07 36.6 76 20 130/76 (94) 99 Nasal Cannula 1.00 09/13/19 07:55 Room Air 09/13/19 04:14 36.2 71 19 147/83 (104) 96 Nasal Cannula 1.00 09/13/19 00:18 36.6 68 19 144/65 (91) 100 Nasal Cannula 1.00 09/12/19 20:17 36.4 75 18 157/69 (98) 100 Nasal Cannula 1.00 09/12/19 20:00 100 Nasal Cannula 1.00 09/12/19 16:48 36.2 68 20 139/65 (89) 99 Nasal Cannula 1.00 09/12/19 11:44 36.6 68 20 137/75 (95) 98 Nasal Cannula 2.00 I & O 09/13/19 07:00 Intake Total 1650 ml Output Total 1625 ml Balance 25 ml Capillary Refill : Less Than 3 SecondsLess Than 3 Seconds General Appearance: No Apparent Distress, Obese Respiratory: Lungs Clear, Normal Breath Sounds, No Accessory Muscle Use, No Respiratory Distress Cardiovascular: Regular Rate, Rhythm, No Murmur Gastrointestinal: soft; No distended; other (Inc C/D/I) Assessment/Plan Assessment/Plan Assessment/Plan S/P Colon Resection and SBR Pt encouraged to ambulate and continue using IS. Will start soft diet and D/C morphine. Pt will call daughter to get adhesive. LEXUS NELSON DO Sep 13, 2019 09:43
--- NOTE | 2019-09-13 10:17 | NUR ---
provided prayer and Communion.
--- NOTE | 2019-09-13 11:06 | NUR ---
Pt lives alone and usually has two paid caregivers providing nearly 22 hours daily attendant care. She has no arrangement for care this week-end. She states that she is interested in Acute Rehab if she meets criteria otherwise will need assistance from her nanny caregiver for care next week as her night caregiver unavailable.Pt also has son and daughter who check on her intermittently. Will follow and assist
[2019-09-13] MEDS: ENOXAPARIN 40 MG/0.4 ML (LOVENOX) SYR SC SCH (13:56)
--- NOTE | 2019-09-13 15:45 | NUR ---
Inpatient rehab evaluation Received order to evaluate patient for admission to the inpatient rehab unit. Request PT and/or OT evaluations be ordered so functional status can be assessed. Thank you for the referral.
[2019-09-13] MEDS: LORazepam 1 MG (ATIVAN) TAB PO PRN (16:17)
--- NOTE | 2019-09-13 16:30 | NUR ---
Pt worried about continued care. She was advised that she won't have a caregiver evenings or nights if discharged next week. Notifying casemanager.Pt is hoping she can be admitted to Acute Rehab to regain function and strength post surgery as states she feels incapable of managing her own care without further therapies.
[2019-09-13] MEDS: ZOLPIDEM 5 MG (AMBIEN) TAB PO SCH (21:02)
[2019-09-14] MEDS: LORazepam 1 MG (ATIVAN) TAB PO PRN ×2 (00:19→12:55)
[2019-09-14] MEDS: KETOROLAC 15 MG/ML VIAL IVP SCH ×3 (02:29→12:54)
[2019-09-14] MEDS: ACETAMINOPHEN 500 MG TAB (TYLENOL) PO SCH ×2 (05:24→12:55)
[2019-09-14 05:32] VITALS: BP 146/81
[2019-09-14] MEDS: ADVAIR HFA 115/21 MCG INHALER 8 GM IH SCH (07:29)
[2019-09-14 07:30] VITALS: BP 148/86
[2019-09-14] MEDS: meTOproloL SUCCINATE 50 MG (TOPROL XL) TAB PO SCH (08:42)
[2019-09-14] MEDS: LEVOTHYROXINE 112 MCG (LEVOTHROID) TAB PO SCH (08:42)
--- NOTE | 2019-09-14 11:58 | Occupational Therapy Eval ---
OT Evaluation-General/PLF Medical Diagnosis Admission Date Sep 11, 2019 at 07:43 Medical Diagnosis: Colon resection Onset Date: Sep 11, 2019 Therapy Diagnosis Therapy Diagnosis: Weakness Height/Weight Height (Feet): 5 Height (Inches): 2.00 Weight (Pounds): 163 Weight (Ounces): 0.0 Precautions Precautions/Isolations: Contact Isolation, Standard Precautions Weight Bear Status Weight Bearing Restriction: Weight Bearing/Tolerated Referral Physician: Dr. Brooks Referral Reason: Activity Tolerance, Self Care, Evaluation/Treatment, Strengthening/ROM Medical History Pertinent Medical History: Arthritis, CAD, COPD, GERD, HTN, Hypothroidism Additional Medical History DJD, Colon CA Current History Pt. underwent colon resection surgery on 09-13-19 secondary to colon CA. Reviewed History: Yes Social History Home: Apartment Current Living Status: Alone (Caregiving assistance) Entry Into Home: Stairs With Railing Steps Into Home: 1 ADL-Prior Level of Function SCALE: Activities may be completed with or without assistive devices. 2-Xxfejyzavn-wborywn completes the activity by him/herself with no assistance from a helper. 5-Set-up or Clean-up Assistance-helper sets up or cleans up; patient completes activity. [place] assists only prior to or following the activity. 4-Supervision or Touching Assistance-helper provides verbal cues and/or touching/steadying and/or contact guard assistance as patient completes activity. Assistance may be provided throughout the activity or intermittently. 3-Partial/Moderate Assistance-helper does LESS THAN HALF the effort. [place] lifts, holds or supports trunk or limbs, but provides less than half the effort. 2-Substantial/Maximal Assistance-helper does MORE THAN HALF the effort. [place] lifts or holds trunk or limbs and provides more than half the effort. 1-Lswrkdmvq-zqgniw does ALL the effort. Patient does none of the effort to complete the activity. Or, the assistance of 2 or more helpers is required for the patient to complete the activity. If activity was not attempted, code reason: 7-Patient Refused. 9-Not Applicable-not attempted and the patient did not perform the activity before the current illness, exacerbation or injury. 10-Not Attempted due to Environmental Limitations-(lack of equipment, weather restraints, etc.). 88-Not Attempted due to Medical Conditions or Safety Concerns. ADL PLOF Comments Pt. reports that she has caregiving assistance throughout the day and at night. Her caregiver assists her with bathing, dressing, cooking, cleaning. She reports that she is going to be without a caregiver at night for the next week, and that this worries her. Self Care: Needed Some Help Functional Cognition: Unknown DME/Equipment: Bath Chair, Tub/Shower DME/Equipment Comments Pt. uses a walker. Drive Self: No OT Current Status Subjective Pt. does not report pain. Appearance Pt. is in bed. States that she is ready to walk. Mental Status/Objective Patient Orientation: Person, Place Current Glasses/Contacts: Yes Dentures/Partials: Yes Hand Dominance: Right Upper Extremity ROM Pt. is able to flex bilateral shoulders to approximately 90 degrees. ADL-Treatment Lower Body Dressing (QC): 3 (OT doffs brief due to incontinence, and dons brief over feet. Pt. able to stand and don brief over hips.) On/Off Footwear (QC): 2 (Pt. states that she is unable to bend over to don slipper socks. States that this is her baseline, and her caregiver does this for her.) Toileting Hygiene (QC): 1 (Pt. incontinent of stool while ambulating. Pt. is able to cleanse kar area in stance, but OT cleanses for her more thoroughly.) Other Treatments PT/OT co-treatment performed due to level of skilled assistance needed. OT facilitated ADL skills training while PT focused on transfers and mobility. Pt. transfers supine-sit with mod assist. Stands with min assist. Pt. is able to ambulate long distance with walker, with CGA, (see PT note for distance). Pt. reports that she feels weak. Pt. becomes incontinent of stool during ambulation, and so ambulates to toilet. Therapy assists her with toileting. Pt. transfers to bed with mod assist for sit-supine. Pt. states that she has difficulty with this as well at home, and that her caregiver assists her to bed. Pt. is asked what she does when her caregiver is not present. Pt. does not remember. All needs are met and bed alarm set. Education OT Patient Education: Correct positioning, Modified ADL techniques, Progress toward Goal/Update tx plan, Purpose of tx/functional activities, Reviewed precautions, Rehab process, Transfer techniques Teaching Recipient: Patient Teaching Methods: Demonstration, Discussion Response to Teaching: Verbalize Understanding, Return Demonstration, Reinforcement Needed OT Detention Goals Detention Goals Time Frame: Sep 21, 2019 Eating (QC): 5 Oral Hygiene (QC): 5 Toileting Hygiene (QC): 4 Shower/Bathe Self (QC): 3 Upper Body Dressing (QC): 3 Lower Body Dressing (QC): 3 On/Off Footwear (QC): 3 Goals are set for pt. to require min assist only, as this is her baseline with caregiving assistance at home. Additional Goals: 1-Demonstrate ADL Tasks, 2-Verbalize Understanding, 3- ImproveStrength/Jose 1=Demonstrate adherence to instructed precautions during ADL tasks. 2=Patient will verbalize/demonstrate understanding of assistive devices/modifications for ADL. 3=Patient will improve strength/tolerance for activity to enable patient to perform ADL's. OT Education/Plan Problem List/Assessment Assessment: Decreased Activ Tolerance, Dependent Transfers, Impaired Bed Mobility, Impaired Funct Balance, Impaired I ADL's, Impaired Self-Care Skills Discharge Recommendations Plan/Recommendations: Continue POC Therapy Discharge Recommendati: Scheduled Assistance Treatment Plan/Plan of Care Treatment,Training & Education: Yes Patient would benefit from OT for education, treatment and training to promote independence in ADL's, mobility, safety and/or upper extremity function for ADL's. Plan of Care: ADL Retraining, Functional Mobility, UE Funct Exercise/Act Treatment Duration: Sep 21, 2019 Frequency: 5 times per week Estimated Hrs Per Day: .25 hour per day Agreement: Yes Rehab Potential: Fair Time/GCodes Start Time: 10:14 Stop Time: 10:39 Total Time Billed (hr/min): 25 Billed Treatment Time 1, EVM x 25minutes (co treatment performed with PT. Please see above note for designated roles.) DUSTY OVIEDO OT Sep 14, 2019 11:58
[2019-09-14] MEDS: ENOXAPARIN 40 MG/0.4 ML (LOVENOX) SYR SC SCH (12:55)
[2019-09-14] MEDS ORDERED: OXYC10TA7 PO (13:47)
--- NOTE | 2019-09-14 13:48 | Discharge Inst-Surgical ---
Discharge Inst-Surgical Depart Medication/Instructions New, Converted or Re-Newed RX: RX Given to Pt/Family Patient Instructions Follow up Appt: Make appointment for 1 week. [phone] Instructions: No lifting greater than 20 pounds. No strenuous activity. May shower in 24 hours, no tub bath or soaking. Use incentive spirometer at home as directed. No Smoking Skin/Wound Care: May remove bandages in am. You need to leave the elli in place and come to the office to have them removed. Symptoms to Report: Appetite Changes, Extremity Discoloration, Numbness/Tingling, Swelling Increased, Bleeding Excessive, Eyesight Changes, Pain Increased, Urine Color Change, Constipation(Persistent), Fever over 101 degree F, Pain/Pressure in chest, Urinating Difficulty, Cough Up/Vomit Blood, Heart Beat Irreg/Pounding, Pain/Pressure in jaw, Cramps in feet or legs, Lightheadedness, Pain/Pressure in shoulder, Diarrhea(Persistent), Memory Changes Suddenly, Questions/Concerns, Weight gain consecutive days, Dizziness/Fainting, Nausea/Vomiting, Shortness of Breath, Weight gain over 2 pounds If questions or concerns contact your physician Or seek help at emergency department. Activity Activity as Tolerated: Yes Walking Assistive Device: Walker Activity Instructions: Avoid Stress to Incision Driving Instructions: No Driving/Refer to Dr. Weir Discharge Diet: No Restrictions Diet After 24 Hours: Clear Liquid if Nauseous If Any Problems/Questions/Issu: Contact Your Physician, Go to Emergency Room Skin/Wound Care Infection Signs and Symptoms: Increased Redness, Foul Odor of Wound, Increased Drainage, Skin Itchy or Has a Rash, Increased Swelling, Temperature Above 101 F Bathing Instructions: Shower Stitches/[place]/Dermabond Dis: Care of LEXUS Mijares DO Sep 14, 2019 13:48
--- NOTE | 2019-09-14 13:58 | Discharge Summary ---
Diagnosis/Chief Complaint Date of Admission Sep 11, 2019 at 07:43 Date of Discharge September 14, 2019 Admission Diagnosis Admission Diagnosis Colon Cancer - Ascending Discharge Diagnosis Colon Cancer - Ascending Small bowel ischemia Retained foreign bodies Extensive Intra-abdominal Adhesions Ventral Hernia Anxiety Discharge Summary Procedures: Colon resection Small bowel resection Removal of foreign bodies Lysis of Adhesions Central Line insertion Discharge Physical Examination Allergies: Coded Allergies: cephalexin (Verified Allergy, Severe, CONFUSION, DIZZINESS, 09/09/19) ciprofloxacin (Verified Allergy, Intermediate, SKIN BURNING, 09/09/19) sulfamethoxazole (Verified Allergy, Intermediate, Vomiting, 09/09/19) trimethoprim (Verified Allergy, Intermediate, Vomiting, 09/09/19) erythromycin base (Verified Allergy, Unknown, 09/09/19) quinine (Verified Allergy, Unknown, 09/09/19) Vitals & I&Os Vital Signs Date Time Temp Pulse Resp B/P (MAP) Pulse Ox O2 Delivery O2 Flow Rate FiO2 09/14/19 09:00 97 Room Air 09/14/19 07:30 37.3 128 18 148/86 (106) 09/13/19 09:00 1.00 General Appearance: Alert, Oriented X3, Cooperative Respiratory: Clear to Auscultation Cardiovascular: Regular Rate Abdominal: Soft, Other (minimal tenderness at incision, inc is C/D/I) Hospital Course Pt presented on September 10 for Colon resection secondary to Colon CA. Surgery was more extensive than expected because of adhesions, retained foreign bodies, ischemic small bowel; but she tolerated it well and was sent to the floor post- operatively. She was placed on clears and started on toradol and tylenol for pain; with medication for breakthrough. She worked with PT/OT and was able to tolerate diet which was advanced to soft on 09/12. She had BM's on the ; mostly brown but with some blood in the am. She had been having flatus for 2 days. She was unfortunately having nightmares and so on the morning of the was asking to please go home. We had been looking in to possible rehab, but pt did not want to stay and OT thought she was basically back to baseline and if someone helped her at home she could go home. Her daughter stated she would take her home and watch her until her permanent caregive gets back on Monday. D/C'd in stable condition. Discharge Instructions to patient/family Please see electronic discharge instructions given to patient. Discharge Medications Reviewed and agree with Discharge Medication list on patient's Discharge Instruction sheet LEXUS NESLON DO Sep 14, 2019 13:58
[2019-09-14 14:00] VITALS: BP 148/86
--- NOTE | 2019-09-14 15:32 | Physical Therapy Evaluation ---
PT Evaluation-General Medical Diagnosis Admission Date Sep 11, 2019 at 07:43 Medical Diagnosis: Colon resection Onset Date: Sep 11, 2019 Therapy Diagnosis Therapy Diagnosis: weakness Height/Weight Height (Feet): 5 Height (Inches): 2.00 Weight (Pounds): 163 Weight (Ounces): 0.0 Precautions Precautions/Isolations: Contact Isolation, Standard Precautions Weight Bear Status Right Lower Extremity: Right Full Weight Bearing Left Lower Extremity: Left Full Weight Bearing Referral Physician: Dr. Brooks Reason for Referral: Evaluation/Treatment Medical History Pertinent Medical History: Arthritis, CAD, COPD, GERD, HTN, Hypothroidism Additional Medical History heart disease, thyroid condition, dizziness, hyperlipidemia, anxiety, DJD, GERD, sleep apnea, DVT, back pain, arrhythmia, depression Current History s/p colon resection and SBR on 09/11/2019 due to malignant neoplasm of ascending colon Reviewed History: Yes Social History Home: Apartment Current Living Status: Alone (Caregiving assistance) Entry Into Home: Stairs With Railing PT Steps Into Home: 1 Prior Prior Level of Function SCALE: Activities may be completed with or without assistive devices. 7-Mcwhbonnyr-rqpszzl completes the activity by him/herself with no assistance from a helper. 5-Set-up or Clean-up Assistance-helper sets up or cleans up; patient completes activity. [place] assists only prior to or following the activity. 4-Supervision or Touching Assistance-helper provides verbal cues and/or touching/steadying and/or contact guard assistance as patient completes activity. Assistance may be provided throughout the activity or intermittently. 3-Partial/Moderate Assistance-helper does LESS THAN HALF the effort. [place] lifts, holds or supports trunk or limbs, but provides less than half the effort. 2-Substantial/Maximal Assistance-helper does MORE THAN HALF the effort. [place] lifts or holds trunk or limbs and provides more than half the effort. 9-Ncwcechww-shtnbf does ALL the effort. Patient does none of the effort to complete the activity. Or, the assistance of 2 or more helpers is required for the patient to complete the activity. If activity was not attempted, code reason: 7-Patient Refused. 9-Not Applicable-not attempted and the patient did not perform the activity before the current illness, exacerbation or injury. 10-Not Attempted due to Environmental Limitations-(lack of equipment, weather restraints, etc.). 88-Not Attempted due to Medical Conditions or Safety Concerns. Bed Mobility: 4 Transfers (B,C,W/C): 4 Gait: 6 Stairs: 4 Wheelchair Mobility: 9 Indoor Mobility (Ambulation): Independent Stairs: Needed Some Help Prior Devices Use: Walker Pt reports that she has caregiving assist night and day, except on weekends. States they assist with getting in and out of bed and with housework, ADLs. Pt reports that on the weekends when she does not have assist she "relaxes and watches TV" PT Evaluation-Current Subjective Pt in bed, agreeable. Reports her night time caregiver is off next week and she does not feel like she can go home without assist. Pt reports "I have no one to prepare my evening meals." Reports abdominal pain but not rated. Pt/Family Goals Home Objective Patient Orientation: Person, Place, Time, Situation ROM/Strength ROM Upper Extremities See OT ROM Lower Extremities WFL for mobility Strength Upper Extremities See OT Strength Lower Extremities Grossly 3/5; no resistance given due to recent abdominal surgery Integumentary/Posture Integumentary See nurses' note Bowel Incontinence: Yes Bladder Incontinence: No Posture Kyphotic Neuromuscular (Tone, Coordination, Reflexes) Grossly intact Sensory Vision: Functional Hearing: Functional Hand Dominance: Right Transfers Roll Left to Right (QC): 4 Sit to Lying (QC): 3 Lying to Sitting/Side of Bed(Q: 3 Sit to Stand (QC): 4 (CGA) Toilet Transfer (QC): 4 (CGA for transfer; require assist for thorough kar- care) Gait Does the Patient Walk?: Yes Mode of Locomotion: Walk Anticipated Mode of Locomotion: Walk Walk 10 feet (QC): 4 Walk 50 ft with 2 Turns(QC): 4 Walk 150 ft (QC): 4 Distance: 250 Gait Assistive Device: FWW Comments/Gait Description Pt ambulated 250' x 1 with FWW with SBA-CGA. Slow gait but no LOB, safe use of FWW. Wheelchair Training Does the Pt Use a Wheelchair?: No Balance Sitting Static: Normal Sitting Dynamic: Normal Standing Static: Good Standing Dynamic: Good Treatment Eval. Pt returned to bed with all needs met. Assessment/Needs Pt would benefit from skilled PT to continue to increase (I) with functional transfers and gait to allow safe return home with decreased caregiver burden. 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 Goals Time Frame: Sep 28, 2019 Roll Left & Right (QC): 6 Sit to Lying (QC): 6 Lying-Sitting on Side/Bed(QC): 6 Sit to Stand (QC): 6 Chair/Ghq-yf-Pvhka Xfer(QC): 6 Toilet Transfer (QC): 6 Car Transfer (QC): 4 Does the Patient Walk: Yes Walk 10 feet (QC): 6 Walk 50ft with 2 Turns (QC): 6 Walk 150 ft (QC): 6 Walking 10ft on Uneven Surface: 4 1 Step (curb) (QC): 4 4 Steps (QC): 9 12 Steps (QC): 9 Picking up an Object (QC): 9 Does the Pt use WC or Scooter?: No Wheel 50 feet with 2 turns (QC: 9 Type: N/A Wheel 150 feet: 9 Type: N/A PT LTGs established to allow safe return home with caregiver assist. PT Plan Problem List Problem List: Activity Tolerance, Functional Strength, Safety, Balance, Gait, Transfer, Bed Mobility Treatment/Plan Treatment Plan: Continue Plan of Care Treatment Plan: Bed Mobility, Education, Functional Activity Jose, Functional Strength, Gait, Safety, Therapeutic Exercise, Transfers Treatment Duration: Sep 28, 2019 Frequency: 6 times per week Estimated Hrs Per Day: .25 hour per day Patient and/or Family Agrees t: Yes Safety Risks/Education Patient Education: Transfer Techniques Teaching Recipient: Patient Teaching Methods: Demonstration Response to Teaching: Verbalize Understanding, Reinforcement Needed Discharge Recommendations Therapy Discharge Recommendati: Scheduled Assistance Time/GCodes Time In: 1014 Time Out: 1039 Total Billed Treatment Time: 25 Total Billed Treatment 1, EVLOWC Pt. participated in co-treatment with PT/OT. OT attempts to facility ADL skills training while PT focuses on mobility and transfers. JUNIOR HERRERA DPT Sep 14, 2019 15:32
== END 2019-09-14 14:00 | disposition home or self-care (01) | DRG 330 ==
LOC: 4TH 07:43 → SURG 07:45 → 4TH 13:45
PROVIDERS: ADMIT Surgery; ATTEND Surgery
PROC: 0DBB0ZZ Excision of Ileum, Open Approach (ICD-10-PCS; 2019-09-11)
PROC: 0DB80ZZ Excision of Small Intestine, Open Approach (ICD-10-PCS; 2019-09-11)
PROC: 0DNF0ZZ Release Right Large Intestine, Open Approach (ICD-10-PCS; 2019-09-11)
PROC: 0DNU0ZZ Release Omentum, Open Approach (ICD-10-PCS; 2019-09-11)
PROC: 0DC80ZZ Extirpation of Matter from Small Intestine, Open Approach (ICD-10-PCS; 2019-09-11)
PROC: 0DBK0ZZ Excision of Ascending Colon, Open Approach (ICD-10-PCS; principal; 2019-09-11 10:24)
PROC: 0DBH0ZZ Excision of Cecum, Open Approach (ICD-10-PCS; 2019-09-11 10:24)
DX: C18.2 Malignant neoplasm of ascending colon (principal); K55.8 Other vascular disorders of intestine; I87.2 Venous insufficiency (chronic) (peripheral); K66.0 Peritoneal adhesions (postprocedural) (postinfection); I10 Essential (primary) hypertension; E78.5 Hyperlipidemia, unspecified; J44.9 Chronic obstructive pulmonary disease, unspecified; G47.33 Obstructive sleep apnea (adult) (pediatric); I25.10 Atherosclerotic heart disease of native coronary artery without angina pectoris; E03.9 Hypothyroidism, unspecified; K21.9 Gastro-esophageal reflux disease without esophagitis; M19.91 Primary osteoarthritis, unspecified site; Z87.891 Personal history of nicotine dependence; E66.9 Obesity, unspecified; M54.9 Dorsalgia, unspecified; Z86.718 Personal history of other venous thrombosis and embolism; Z96.641 Presence of right artificial hip joint; F41.9 Anxiety disorder, unspecified; F32.9 Major depressive disorder, single episode, unspecified; M41.9 Scoliosis, unspecified; M51.36 Other intervertebral disc degeneration, lumbar region; M48.061 Spinal stenosis, lumbar region without neurogenic claudication; Z68.33 Body mass index [BMI] 33.0-33.9, adult; Z95.5 Presence of coronary angioplasty implant and graft
CPT/HCPCS: 86850; 86900; 86901; 94640; 94664; 94760

== ENCOUNTER 2019-10-01 11:52 | Outpatient (RCR) | payer MEDICARE, MEDICAID ==
[~2019-10-01 11:52] MED LIST changes: +AMOX-355 PO; +ASPI-1238 PO; -ASPI-983 PO; +ESZO2TAB31 PO; +FLUT9.9S NS; -OXYC-465 PO; +OXYC-556 PO; -PANT40TA3 PO; +PANT40TA52 PO
== END 2019-12-30 | disposition home or self-care (01) ==
LOC: LAB 11:52
PROVIDERS: ATTEND Surgery
DX: R19.7 Diarrhea, unspecified (principal)
CPT/HCPCS: 87015; 87045; 87046; 87324; 87328; 87329; 87449; 87899

== ENCOUNTER 2019-10-10 09:58 | Outpatient (RCR) | payer MEDICARE, MEDICAID ==
[~2019-10-10 09:58] MED LIST changes: +MIRT-96 PO; -MIRT15TA PO
== END 2020-01-08 | disposition home or self-care (01) ==
LOC: LAB 09:58
PROVIDERS: ATTEND Surgery
DX: A07.1 Giardiasis [lambliasis] (principal); Z20.828 Contact with and (suspected) exposure to other viral communicable diseases
CPT/HCPCS: 87328; 87329

== ENCOUNTER → 2019-10-14 | Outpatient (CLI) | payer MEDICARE, MEDICAID ==
[~2019-10-14] MED LIST changes: -ASPI-1238 PO; +ASPI-983 PO; -MIRT-96 PO; +MIRT15TA PO; +OXYC-465 PO; -OXYC-556 PO; +PANT40TA3 PO; -PANT40TA52 PO
[2019-10-14 15:53] LABS: ABG BASE EXCESS 0.5 MMOL/L (-2.5-2.5); ABG OXYGEN SATURATION 96 % (94-100); ABG PCO2 44 MMHG (35-45); ABG PH 7.38 (7.37-7.43); ABG PO2 82 MMHG (79-93); ABG TCO2 26.3 MMOL/L (21.0-31.0)
[2019-10-14 15:56] LABS: ALLENS TEST POSITIVE; PATIENT TEMP 37.2; VENTILATOR NO
[2019-10-14 16:21] LABS: BASOPHILS % (AUTO) 1 % (0-10); EOSINOPHILS # (AUTO) 0.2 10^3/uL (0.0-0.3); EOSINOPHILS % (AUTO) 3 % (0-10); HEMATOCRIT 29 % (35-52); HEMOGLOBIN 8.6 G/DL (11.5-16.0); LYMPHOCYTES # (AUTO) 1.8 X 10^3 (1.0-4.0); LYMPHOCYTES % (AUTO) 25 % (12-44); MEAN CORPUSCULAR HEMOGLOBIN 23 PG (25-34); MEAN CORPUSCULAR HGB CONC 30 G/DL (32-36); MEAN CORPUSCULAR VOLUME 77 FL (80-99); MEAN PLATELET VOLUME 10.5 FL (7.4-10.4); MONOCYTES # (AUTO) 0.6 X 10^3 (0.0-1.0); MONOCYTES % (AUTO) 8 % (0-12); NEUTROPHILS # (AUTO) 4.6 X 10^3 (1.8-7.8); NEUTROPHILS % (AUTO) 64 % (42-75); PLATELET COUNT 391 10^3/uL (130-400); RED CELL DISTRIBUTION WIDTH 21.3 % (10.0-14.5); WHITE BLOOD COUNT 7.2 10^3/uL (4.3-11.0)
--- NOTE | 2019-10-14 17:20 | Diagnostic Imaging Report ---
INDICATION: Weakness, shortness of breath. TECHNIQUE: Two view chest at 4:01 PM CORRELATION STUDY: 09/24/2019 FINDINGS: Heart size is enlarged. There is prominent appearance about the central pulmonary arteries. Pulmonary vasculature within normal limits. Blunting at the left costophrenic angle. Lung [place] overall are clear. Multifocal kyphoplasty changes. Additional compressed thoracic vertebral bodies are noted. Some adjacent methyl methacrylate extravasation adjacent to the left spinal region A previously noted right-sided central line has been removed. IMPRESSION: 1. Negative for acute abnormality of the chest. Dictated by: Dictated on workstation # [id number]
== END ==
LOC: RT 15:30
PROVIDERS: ATTEND Nurse Practitioner Family
DX: J98.4 Other disorders of lung (principal); R91.8 Other nonspecific abnormal finding of lung field; R53.1 Weakness; R06.02 Shortness of breath
CPT/HCPCS: 36415; 71046; 82805; 85025

== ENCOUNTER 2019-10-15 10:08 | Outpatient (RCR) | payer MEDICARE, MEDICAID ==
[~2019-10-15 10:08] MED LIST changes: +ASPI-1238 PO; -ASPI-983 PO; +MIRT-96 PO; -MIRT15TA PO; -OXYC-465 PO; +OXYC-556 PO; -PANT40TA3 PO; +PANT40TA52 PO
== END 2020-01-13 | disposition home or self-care (01) ==
LOC: ONC 10:08
PROVIDERS: ATTEND Internal Medicine Hematology & Oncology
DX: J30.9 Allergic rhinitis, unspecified (principal); G47.36 Sleep related hypoventilation in conditions classified elsewhere; G47.10 Hypersomnia, unspecified; J44.9 Chronic obstructive pulmonary disease, unspecified; I25.10 Atherosclerotic heart disease of native coronary artery without angina pectoris; E78.5 Hyperlipidemia, unspecified; I10 Essential (primary) hypertension; Z95.828 Presence of other vascular implants and grafts; Z90.711 Acquired absence of uterus with remaining cervical stump; Z90.89 Acquired absence of other organs
CPT/HCPCS: 99214

== ENCOUNTER → 2019-10-24 | Outpatient (CLI) | payer MEDICARE, MEDICAID ==
[~2019-10-24] MED LIST changes: +CATHETER FLUSH 10 ML SYR IV PRN; +HOLD METFORMIN - RECEIVED CONTRAST 20 ML VIAL IV SCH; +IOHEXOL 350 MG/ML 100 ML (OMNIPAQUE 350) VIAL IV ONE; -MIRT-96 PO; +MIRT15TA PO; +NS 100 ML (IVPB) BAG IV ONE; +PANT40TA3 PO; -PANT40TA52 PO
--- NOTE | 2019-10-24 12:02 | Diagnostic Imaging Report ---
PROCEDURE: CT chest without contrast. TECHNIQUE: Multiple contiguous axial images were obtained through the chest without the use of intravenous contrast. Auto Exposure Controls were utilized during the CT exam to meet ALARA standards for radiation dose reduction. INDICATION: COPD, shortness of breath. FINDINGS: The recent CTA chest exam of 09/02/2019 raised the question of a small pulmonary embolus involving segmental and subsegmental branches of the right lower lobe. There was no central pulmonary embolus identified. This exam was to have been performed with intravenous contrast; however because of poor venous access, the contrast could not be given. Consequently, evaluation of the pulmonary arteries for a pulmonary embolus cannot be performed. The heart is stable in size when compared to the prior study. Dense coronary artery calcifications involving the LAD are again noted. The aorta is not abnormally dilated. The tortuous descending thoracic aorta and the scar formation along the lateral margin of the descending thoracic aorta seen on the prior study are again evident and no different. There is no obvious mediastinal or hilar adenopathy. The thyroid gland where visualized is unremarkable. On the prior study, there were vague areas of slightly increased density in both perihilar regions, particularly on the right. Those densities have resolved. The lungs are now generally clear and well aerated. There is no sign of pneumonia, failure, or a pleural effusion. The sections through the upper abdomen again show the fat-containing ventral hernia that was noted on the prior exam. There is still no incarceration or obstruction of bowel in this area. There is no acute abnormality of the upper abdomen noted. The multiple compression deformities of the mid and lower thoracic spine and the upper lumbar spine seen previously are again evident and no different. There is a small 7 mm asymmetry deep in the right breast. This does seem slightly larger than on the prior exam of 10/31/2016 when it measured 4.4 mm. This finding does not have an aggressive appearance. Even so, I would recommend that mammography and perhaps ultrasound be performed for further evaluation. There is no obvious mass involving the left breast. IMPRESSION: 1. Because of the patient's poor venous access, intravenous contrast could not be administered. Consequently, the pulmonary arteries could not be evaluated for a pulmonary embolus. 2. The lungs do seem better aerated than on the prior exam. There is no evidence for an acute cardiopulmonary abnormality at this time. 3. There is cardiomegaly and coronary artery disease. 4. There is a small asymmetry deep in the right breast, recommendations as above. Dictated by: Dictated on workstation # [id number]
== END ==
LOC: RAD 10-18 13:15
PROVIDERS: ATTEND Internal Medicine Critical Care Medicine
DX: I51.7 Cardiomegaly (principal); I25.10 Atherosclerotic heart disease of native coronary artery without angina pectoris; N64.89 Other specified disorders of breast; J44.9 Chronic obstructive pulmonary disease, unspecified; J98.4 Other disorders of lung; R91.8 Other nonspecific abnormal finding of lung field; Z20.828 Contact with and (suspected) exposure to other viral communicable diseases
CPT/HCPCS: 71250

== ENCOUNTER 2019-10-30 11:40 | Outpatient (RCR) | payer MEDICARE, MEDICAID ==
[~2019-10-30 11:40] MED LIST changes: -CATHETER FLUSH 10 ML SYR IV PRN; -HOLD METFORMIN - RECEIVED CONTRAST 20 ML VIAL IV SCH; -IOHEXOL 350 MG/ML 100 ML (OMNIPAQUE 350) VIAL IV ONE; +MIRT-96 PO; -MIRT15TA PO; -NS 100 ML (IVPB) BAG IV ONE; -PANT40TA3 PO; +PANT40TA52 PO
== END 2020-01-28 | disposition home or self-care (01) ==
LOC: LAB 11:40
PROVIDERS: ATTEND Surgery
DX: A07.1 Giardiasis [lambliasis] (principal)
CPT/HCPCS: 87015; 87045; 87046; 87328; 87329; 87899

== ENCOUNTER → 2019-11-11 | Outpatient (CLI) | payer MEDICARE, MEDICAID ==
[~2019-11-11] MED LIST changes: -MIRT-96 PO; +MIRT15TA PO
== END ==
LOC: LABNPT 05:41
PROVIDERS: ATTEND Internal Medicine Gastroenterology
DX: Z01.812 Encounter for preprocedural laboratory examination (principal); Z20.828 Contact with and (suspected) exposure to other viral communicable diseases
CPT/HCPCS: 87635

== ENCOUNTER → 2019-12-12 | Outpatient (CLI) | payer MEDICARE, MEDICAID | LOC: LAB 10:56 | PROVIDERS: ATTEND Internal Medicine Gastroenterology | DX: R07.9 Chest pain, unspecified (principal); R77.9 Abnormality of plasma protein, unspecified | CPT/HCPCS: 36415; 83880 ==

== ENCOUNTER 2019-12-20 09:15 | Outpatient (RCR) | payer MEDICARE, MEDICAID ==
[~2019-12-20 09:15] MED LIST changes: +MIRT-96 PO; -MIRT15TA PO
[2020-02-04] MEDS ORDERED: ONDA4TAB11 SL (15:32)
== END 2020-02-25 | disposition home or self-care (01) ==
LOC: LAB 09:15
PROVIDERS: ATTEND Internal Medicine Gastroenterology
DX: R19.7 Diarrhea, unspecified (principal); R19.5 Other fecal abnormalities; R19.8 Other specified symptoms and signs involving the digestive system and abdomen; Z85.030 Personal history of malignant carcinoid tumor of large intestine
CPT/HCPCS: 36415; 87015; 87045; 87046; 87324; 87449; 87899; 89055

== ENCOUNTER → 2020-01-02 | Outpatient (CLI) | payer MEDICARE, MEDICAID ==
[~2020-01-02] MED LIST changes: -MIRT-96 PO; +MIRT15TA PO
== END ==
LOC: LABNPT 05:51
PROVIDERS: ATTEND Pain Medicine Interventional Pain Medicine
DX: Z01.812 Encounter for preprocedural laboratory examination (principal); Z20.828 Contact with and (suspected) exposure to other viral communicable diseases
CPT/HCPCS: 87635

== ENCOUNTER 2020-01-29 00:04 | Outpatient (RCR) | payer MEDICARE, MEDICAID ==
[~2020-01-29 00:04] MED LIST changes: -CATHETER FLUSH 10 ML SYR IV PRN; -CIPR500T4; -CIPR500T4 PO; +CIPR500T5; +CIPR500T5 PO; -HOLD METFORMIN - RECEIVED CONTRAST 20 ML VIAL IV SCH; -IOHEXOL 350 MG/ML 100 ML (OMNIPAQUE 350) VIAL IV ONE; -LACT10SO PO; +LACT10SO3 PO; -METO10TA3 PO; +MTC10T PO; -NS 100 ML (IVPB) BAG IV ONE
[2020-02-04] MEDS ORDERED: ONDA4TAB11 SL (15:32)
[2020-03-04] MEDS ORDERED: CEFD300C3 PO (20:38)
== END 2020-04-28 ==
LOC: LAB 00:04
PROVIDERS: ATTEND Surgery
DX: A07.1 Giardiasis [lambliasis] (principal)

== ENCOUNTER → 2020-01-29 | Outpatient (CLI) | payer MEDICARE, MEDICAID ==
[~2020-01-29] MED LIST changes: +CATHETER FLUSH 10 ML SYR IV PRN; +HOLD METFORMIN - RECEIVED CONTRAST 20 ML VIAL IV SCH; +IOHEXOL 350 MG/ML 100 ML (OMNIPAQUE 350) VIAL IV ONE; +MIRT-96 PO; -MIRT15TA PO; +NS 100 ML (IVPB) BAG IV ONE
[2020-01-29 07:58] LABS: BUN/CREATININE RATIO 14; CREATININE SERUM 0.81 MG/DL (0.60-1.30); GFR ESTIMATED > 60
--- NOTE | 2020-01-29 09:28 | Diagnostic Imaging Report ---
PROCEDURE: CT abdomen and pelvis without contrast. TECHNIQUE: Multiple contiguous axial images were obtained through the abdomen and pelvis without the use of intravenous contrast. Auto Exposure Controls were utilized during the CT exam to meet ALARA standards for radiation dose reduction. INDICATION: Right-sided abdominal pain and cramping. Patient has a history of right-sided colon carcinoma. Correlation is made with prior CT from 09/24/2019. The lung bases are clear. No discrete liver mass is detected. Gallbladder is unremarkable. There is no biliary ductal dilatation. The pancreas and spleen are unremarkable. No adrenal mass is detected. Kidneys are without evidence of calculi or hydronephrosis. Aorta is calcified but non-aneurysmal. There are postsurgical changes from right hemicolectomy. There is diastases of the rectus abdominis musculature with anterior midline abdominal wall laxity. Bowel loops and fat extend through the area of laxity. This is located at the level of umbilicus. In the supraumbilical location there does appear to be a fat-containing ventral hernia with abdominal wall defect approximately 7.4 cm. Bowel loops are normal caliber. There is no obstruction. There appear to postoperative changes at the rectosigmoid junction as well. There is no free fluid or fluid collection identified. No definite abdominal or pelvic lymphadenopathy is seen. Postoperative changes of the right hip are noted. IMPRESSION: Postoperative changes in the abdomen. There is a fat-containing supraumbilical ventral hernia. No bowel obstruction, fluid collection is seen. There is no abdominal or pelvic lymphadenopathy or evidence of metastatic disease. Dictated by: Dictated on workstation # [id number]
== END ==
LOC: RAD 07:23
PROVIDERS: ATTEND Internal Medicine Gastroenterology
DX: K42.9 Umbilical hernia without obstruction or gangrene (principal); R19.8 Other specified symptoms and signs involving the digestive system and abdomen; Z85.038 Personal history of other malignant neoplasm of large intestine
CPT/HCPCS: 36415; 74176; 82565; 84520

== ENCOUNTER 2020-02-04 13:36 | Emergency (ER) | payer MEDICARE, MEDICAID ==
[~2020-02-04] VITALS: Ht 152 cm; Wt 67.0 kg
[~2020-02-04 13:36] MED LIST changes: +CIPR500T4; +CIPR500T4 PO; -CIPR500T5; -CIPR500T5 PO; +LACT10SO PO; -LACT10SO3 PO; +METO10TA3 PO; -MTC10T PO
[2020-02-04] MEDS ORDERED: LACTATED RINGERS 1,000 ML IV ONE (14:15)
[2020-02-04] MEDS ORDERED: ONDANSETRON 4 MG/2 ML (SDV) Z0FRAN IVP ONE (14:15)
[2020-02-04] MEDS ORDERED: KETOROLAC 30 MG/ML VIAL IVP ONE (14:15)
--- NOTE | 2020-02-04 14:22 | ED General ---
General Chief Complaint: Head/Cervical Problems Stated Complaint: SOB,COVID + Nursing Triage Note: PATIENT COVID POSITIVE, HEADACHE AND BODYACHES, STATES HERE DUE TO DR BREWER THINKS PT HAS PNEUMONIA Nursing Sepsis Screen: No Definite Risk Source of Information: Patient, Other (Phone report from the office) Exam Limitations: No Limitations History of Present Illness Date Seen by Provider: Feb 04, 2020 Time Seen by Provider: 14:00 Initial Comments This 79-year-old woman presents to the emergency room with symptoms of COVID-19 for about the past 4 days. She uses oxygen at 2 L/min at home on a regular basis but is actually satting in the upper 90s on room air at this time. She is not exhibiting respiratory distress. She has had diarrhea, vomiting, and headache. She also reports increased weakness today. She was unable to get up to her walker to ambulate. 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 She was sent to the emergency room by Dr. Brewer's office for further evaluation. Allergies and Home Medications Allergies Coded Allergies: cephalexin (Verified Allergy, Severe, CONFUSION, DIZZINESS, 09/09/19) ciprofloxacin (Verified Allergy, Intermediate, SKIN BURNING, 09/09/19) sulfamethoxazole (Verified Allergy, Intermediate, Vomiting, 09/09/19) trimethoprim (Verified Allergy, Intermediate, Vomiting, 09/09/19) erythromycin base (Verified Allergy, Unknown, 09/09/19) quinine (Verified Allergy, Unknown, 09/09/19) Home Medications Albuterol Sulfate 2.5 Mg/0.5 Ml Vial.neb, 2.5 MG INH Q4H PRN for WHEEZING, (Reported) Albuterol Sulfate 1 Puff Puff, 2 PUFF IH Q4H PRN for SHORTNESS OF BREATH, (Reported) Amoxicillin/Potassium Clav 1 Each Tablet, 1 EACH PO BID Prescribed by: IKE FRANK on 09/26/19 1126 Biotin 10 Mg Tablet, 10 MG PO DAILY, (Reported) Cyclosporine 1 Each Droperette, 1 DROP OU BID, (Reported) Duloxetine HCl 60 Mg Capsule.dr, 60 MG PO DAILY, (Reported) Eszopiclone 2 Mg Tablet, 2 MG PO HS, (Reported) Ezetimibe 10 Mg Tablet, 10 MG PO DAILY, (Reported) Fluticasone Propionate 9.9 Ml [place].susp, 2 SPRAY NS DAILY PRN for CONGESTION, (Reported) 2 SPRAYS PER NOSTRIL DAILY X 2 DAYS THEN 1 SPRAY DAILY Gabapentin 300 Mg Capsule, 300 MG PO BID, (Reported) Levothyroxine Sodium 112 Mcg Tablet, 112 MCG PO DAILY, (Reported) Lorazepam 1 Mg Tablet, 1 MG PO TID PRN for ANXIETY, (Reported) Metoprolol Succinate 50 Mg Tab.er.24h, 50 MG PO DAILY, (Reported) Nitroglycerin 0.4 Mg Tab.subl, 0.4 MG SL UD PRN for CHEST PAIN, (Reported) Ondansetron 4 Mg Tab.rapdis, 4 MG SL Q4H Prescribed by: RADHA RIVAS on 02/04/20 1532 Pantoprazole Sodium 40 Mg Tablet.dr, 40 MG PO BID, (Reported) Pregabalin 150 Mg Capsule, 150 MG PO BID, (Reported) Ropinirole HCl 4 Mg Tablet, 8 MG PO HS, (Reported) TAKES 2 (4MG) TABS TO EQUAL 8MG AT BEDTIME Sucralfate 1 Gm/10 Ml Oral.susp, 10 ML PO QIDACHS PRN for ULCER, (Reported) Patient Home Medication List Home Medication List Reviewed: Yes Review of Systems Review of Systems Constitutional: see HPI, weakness EENTM: no symptoms reported Respiratory: see HPI Cardiovascular: no symptoms reported Gastrointestinal: see HPI Genitourinary: no symptoms reported : No Musculoskeletal: no symptoms reported Skin: no symptoms reported Psychiatric/Neurological: No Symptoms Reported Hematologic/Lymphatic: No Symptoms Reported Immunological/Allergic: no symptoms reported Past Raadkpg-Miztfw-Jssnge Hx Past Med/Social Hx: Reviewed Nursing Past Med/Soc Hx Patient Social History Alcohol Use: Denies Use Recreational Drug Use: No Drug of Choice: denies Smoking Status: Former Smoker Type Used: Cigarettes Former Smoker, Quit: Mar 26, 1996 2nd Hand Smoke Exposure: No Recent Foreign Travel: No Contact w/Someone Who Travel: No Recent Infectious Disease Expo: No Recent Hopitalizations: No Immunizations Up To Date Tetanus Booster (TDap): Unknown PED Vaccines UTD: No Date of Pneumonia Vaccine: Aug 20, 2017 Date of Influenza Vaccine: Nov 27, 2019 Seasonal Allergies Seasonal Allergies: Yes Past Medical History Surgeries: Yes (R LEG HEATHER, R THR, BACK-KYPHOPLASTY X3, HIATAL HERNIA X3, COLOSTOMY/REVERSAL) Abdominal, Appendectomy, Bladder Surgery, Bowel Surgery, Cardiac, Coronary Han nt, Hysterectomy, Oophorectomy, Orthopedic, Tonsillectomy Respiratory: Yes (O2 AT HS) Pulmonary Embolism, Sleep Apnea, COPD Currently Using CPAP: No Currently Using BIPAP: No Cardiac: Yes (CARDIAC CATH WITH STENTS X 2) Chronic Edema/Swelling, Coronary Artery Disease, Deep Vein Thrombosis, Heart Attack, High Cholesterol, Hypertension Neurological: No Vertigo 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 Disorders: No STRIP PRESSER History: Hysterectomy, Menopausal Sexually Transmitted Disease: No HIV/AIDS: No Genitourinary: Yes (INCONTINENCE) Kidney Infection, Bladder Infection, UTI-Chronic Gastrointestinal: Yes (COLON CANCER) Abdominal Hernia, Gastroesophageal Reflux, Diverticulosis, Esophagitis Musculoskeletal: Yes Osteoporosis, Arthritis, Chronic Back Pain, Fractures Endocrine: Yes Hypothyroidsim HEENT: Yes ( DENTURES) Dysphagia Loss of Vision: Denies Hearing Impairment: Denies Cancer: Yes Colon Psychosocial: Yes Anxiety, Depression Integumentary: No Blood Disorders: Yes (anemia) Adverse Reaction/Blood Tranf: No (HAS HAD BLOOD WITH NO REACTION) Family Medical History Family history: Hypertension G8 BROTHER Myocardial infarction 19 MOTHER G8 BROTHER Physical Exam Vital Signs Vital Signs - First Documented 02/04/20 13:42 Temp 36.1 Pulse 67 Resp 18 B/P (MAP) 133/75 (94) Pulse Ox 97 O2 Delivery Nasal Cannula O2 Flow Rate 2.00 Capillary Refill : Less Than 3 Seconds Height, Weight, BMI Height: 5'2.00" Weight: 163lbs. 0.0oz. 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3-11.0 10^3/uL Red Blood Count 4.67 3.80-5.11 10^6/uL Hemoglobin 10.8 L 11.5-16.0 g/dL Hematocrit 36 35-52 % Mean Corpuscular Volume 76 L 80-99 fL Mean Corpuscular Hemoglobin 23 L 25-34 pg Mean Corpuscular Hemoglobin Concent 30 L 32-36 g/dL Red Cell Distribution Width 20.2 H 10.0-14.5 % Platelet Count 271 130-400 10^3/uL Mean Platelet Volume 9.7 9.0-12.2 fL Immature Granulocyte % (Auto) 2 % Neutrophils (%) (Auto) 58 42-75 % Lymphocytes (%) (Auto) 28 12-44 % Monocytes (%) (Auto) 8 0-12 % Eosinophils (%) (Auto) 4 0-10 % Basophils (%) (Auto) 0 0-10 % Neutrophils # (Auto) 2.7 1.8-7.8 10^3/uL Lymphocytes # (Auto) 1.3 1.0-4.0 10^3/uL Monocytes # (Auto) 0.4 0.0-1.0 10^3/uL Eosinophils # (Auto) 0.2 0.0-0.3 10^3/uL Basophils # (Auto) 0.0 0.0-0.1 10^3/uL Immature Granulocyte # (Auto) 0.1 0.0-0.1 10^3/uL Sodium Level 132 L 135-145 MMOL/L Potassium Level 3.7 3.6-5.0 MMOL/L Chloride Level 99 98-107 MMOL/L Carbon Dioxide Level 24 21-32 MMOL/L Anion Gap 9 5-14 MMOL/L Blood Urea Nitrogen 12 7-18 MG/DL Creatinine 0.80 0.60-1.30 MG/DL Estimat Glomerular Filtration Rate > 60 BUN/Creatinine Ratio 15 Glucose Level 93 70-105 MG/DL Calcium Level 8.7 8.5-10.1 MG/DL Corrected Calcium 8.9 8.5-10.1 MG/DL Magnesium Level 1.8 1.6-2.4 MG/DL Total Bilirubin 0.4 0.1-1.0 MG/DL Aspartate Amino Transf (AST/SGOT) 13 5-34 U/L Alanine Aminotransferase (ALT/SGPT) 11 0-55 U/L Alkaline Phosphatase 104 40-136 U/L Total Creatine Kinase 9 L 29-168 U/L C-Reactive Protein High Sensitivity 0.18 0.00-0.50 MG/DL Total Protein 6.1 L 6.4-8.2 GM/DL Albumin 3.7 3.2-4.5 GM/DL Procalcitonin 0.04 <0.10 NG/ML Thyroid Stimulating Hormone (TSH) 0.46 0.35-4.94 UIU/ML Free Thyroxine 1.23 0.70-1.48 NG/DL My Orders Orders - RADHA PAREDES MD Cbc With Automated Diff (02/04/20 14:06) Comprehensive Metabolic Panel (02/04/20 14:06) Creatine Kinase (02/04/20 14:06) Hs C Reactive Protein (02/04/20 14:06) Magnesium (02/04/20 14:06) Procalcitonin (Pct) (02/04/20 14:06) Ed Iv/Invasive Line Start (02/04/20 14:06) Lactated Ringers (Lr 1000 Ml Iv Solution (02/04/20 14:15) Ondansetron Injection (Zofran Injectio (02/04/20 14:15) Ketorolac Injection (Toradol Injection) (02/04/20 14:15) Chest 1 View, Ap/Pa Only (02/04/20 14:13) Thyroid Stimulating Hormone (02/04/20 14:26) Free T4 (Free Thyroxine) (02/04/20 14:26) Medications Given in ED Current Medications Medications Dose Ordered Sig/Perez Route Start Time Stop Time Status Last Admin Dose Admin Ketorolac Tromethamine 15 mg ONCE ONCE IVP 02/04/20 14:15 02/04/20 14:16 DC 02/04/20 14:26 15 MG Lactated Ringer's 1,000 ml @ 0 mls/hr Q0M ONCE IV 02/04/20 14:15 02/04/20 14:16 DC 02/04/20 14:26 0 MLS/HR Ondansetron HCl 8 mg ONCE ONCE IVP 02/04/20 14:15 02/04/20 14:16 DC 02/04/20 14:25 8 MG Vital Signs/I&O 02/04/20 02/04/20 02/04/20 13:42 13:42 17:27 Temp 36.1 36.9 Pulse 67 67 Resp 18 18 B/P (MAP) 133/75 (94) 145/65 (94) Pulse Ox 97 94 O2 Delivery Nasal Cannula Nasal Cannula Room Air O2 Flow Rate 2.00 2.00 Capillary Refill : Less Than 3 Seconds Blood Pressure Mean: 94 Progress Note #1: Time: 14:28 Progress Note Patient seen and examined. The main concern at this point in regard to her caring for herself is generalized weakness. We will hydrate her and check her electrolytes. We can then assess her functional capacity by having her get up and walk. Chest x-ray is pending. Progress Note #2: Progress Note Work-up was essentially unremarkable and vital signs were normal. Patient demonstrated ability to walk safely. She did not meet admission criteria. She was ultimately discharged home and had a friend come pick her up. Diagnostic Imaging Diagonstic Imaging: Xray Plain Films/CT/US/NM/MRI: chest Comments Chest x-ray reviewed by me and report reviewed. See report below: NAME: [facility] REC#: [id number] PT STATUS: REG ER : 1940 PHYSICIAN: RADHA PAREDES MD ADMIT DATE: 02/04/20/ER Signed Date of Exam:02/04/20 CHEST 1 VIEW, AP/PA ONLY INDICATION: COVID positive, body aches. COMPARISON: October 14, 2019. TECHNIQUE: Single radiograph of the chest dated February 04, 2020. FINDINGS: The heart is borderline enlarged, though stable. No significant pulmonary vascular congestion. Minimal left basilar scarring is again identified. The lungs otherwise appear clear of focal pulmonary opacity. No significant pleural effusion. No pneumothorax. Multilevel vertebroplasty changes are again identified. No acute osseous abnormality. IMPRESSION: No acute cardiopulmonary abnormality with additional findings, as above. Dictated by: Dictated on workstation # [id number] Dict: 02/04/20 1450 Trans: 02/04/20 1600 [id number] Interpreted by: MEGHAN BARAJAS MD Electronically signed by: MEGHAN BARAJAS MD 02/04/20 1600 Departure Impression Primary Impression: COVID-19 Additional Impressions: Generalized weakness Hypovolemia Nausea vomiting and diarrhea Acute headache Qualified Codes: R51 - Headache Disposition: 01 HOME, SELF-CARE Condition: Stable Departure-Patient Inst. Decision time for Depature: 15:27 Referrals: TORIBIO BREWER DO (PCP/Family) Primary Care Physician Patient Instructions: Coronavirus Disease 2019 (COVID-19) Overview Add. Discharge Instructions: Drink plenty of clear liquids. Avoid milk products or fatty or greasy foods until your diarrhea has resolved for couple of days. You may take Tylenol and/or ibuprofen for pain and fever. Use Zofran as prescribed for nausea and vomiting. Call or return to care with any further questions or concerns. Continue to use your oxygen at 2 L/min. You may increase to 3 or 4 L/min if you become more short of breath. All discharge instructions reviewed with patient and/or family. Voiced understanding. Scripts Ondansetron (Ondansetron Odt) 4 Mg Tab.rapdis 4 MG SL Q4H, #10 TAB Prov: RADHA PAREDES MD 02/04/20 Copy Copies To 1: TORIBIO BREWER JOSHUA T MD Feb 04, 2020 14:22
[2020-02-04 14:23] LABS: BASOPHILS % (AUTO) 0 % (0-10); EOSINOPHILS # (AUTO) 0.2 10^3/uL (0.0-0.3); EOSINOPHILS % (AUTO) 4 % (0-10); HEMATOCRIT 36 % (35-52); HEMOGLOBIN 10.8 g/dL (11.5-16.0); LYMPHOCYTES # (AUTO) 1.3 10^3/uL (1.0-4.0); LYMPHOCYTES % (AUTO) 28 % (12-44); MEAN CORPUSCULAR HEMOGLOBIN 23 pg (25-34); MEAN CORPUSCULAR HGB CONC 30 g/dL (32-36); MEAN CORPUSCULAR VOLUME 76 fL (80-99); MEAN PLATELET VOLUME 9.7 fL (9.0-12.2); MONOCYTES # (AUTO) 0.4 10^3/uL (0.0-1.0); MONOCYTES % (AUTO) 8 % (0-12); NEUTROPHILS # (AUTO) 2.7 10^3/uL (1.8-7.8); NEUTROPHILS % (AUTO) 58 % (42-75); PLATELET COUNT 271 10^3/uL (130-400); WHITE BLOOD COUNT 4.7 10^3/uL (4.3-11.0)
--- NOTE | 2020-02-04 14:30 | NUR ---
Patient ambulated with assistance from this nurse to bathroom. patient tolerated well steady on feet with assistance. no shortness of breath noted.
[2020-02-04 14:37] LABS: ALBUMIN 3.7 GM/DL (3.2-4.5); CHLORIDE 99 MMOL/L (98-107); POTASSIUM 3.7 MMOL/L (3.6-5.0); SODIUM 132 MMOL/L (135-145)
[2020-02-04 14:38] LABS: CALCIUM 8.7 MG/DL (8.5-10.1)
[2020-02-04 14:40] LABS: GLUCOSE 93 MG/DL (70-105); TOTAL PROTEIN 6.1 GM/DL (6.4-8.2)
--- NOTE | 2020-02-04 14:40 | NUR ---
patient ambulated with assistance from this nurse to bed. patient on room air, spo2 91percent. after a few min. spo2 room air 95 percent. no shortness of breath noted.
[2020-02-04 14:41] LABS: BILIRUBIN,TOTAL 0.4 MG/DL (0.1-1.0); CARBON DIOXIDE 24 MMOL/L (21-32)
[2020-02-04 14:43] LABS: ALKALINE PHOSPHATASE 104 U/L (40-136); GFR ESTIMATED > 60
[2020-02-04 14:44] LABS: BUN/CREATININE RATIO 15
[2020-02-04 14:46] LABS: ALANINE AMINOTRANSFERASE 11 U/L (0-55); MAGNESIUM 1.8 MG/DL (1.6-2.4)
[2020-02-04 14:47] LABS: CREATINE KINASE 9 U/L (29-168)
--- NOTE | 2020-02-04 14:55 | Diagnostic Imaging Report ---
INDICATION: COVID positive, body aches. COMPARISON: October 14, 2019. TECHNIQUE: Single radiograph of the chest dated February 04, 2020. FINDINGS: The heart is borderline enlarged, though stable. No significant pulmonary vascular congestion. Minimal left basilar scarring is again identified. The lungs otherwise appear clear of focal pulmonary opacity. No significant pleural effusion. No pneumothorax. Multilevel vertebroplasty changes are again identified. No acute osseous abnormality. IMPRESSION: No acute cardiopulmonary abnormality with additional findings, as above. Dictated by: Dictated on workstation # [id number]
--- NOTE | 2020-02-04 15:00 | NUR ---
Patient being discharged to home, this nurse contacted patients son and friend hector per patient request for a ride home. message left.
[2020-02-04 15:09] LABS: FREE T4 (FREE THYROXINE) 1.23 NG/DL (0.70-1.48)
--- NOTE | 2020-02-04 15:30 | NUR ---
Multiple attempts by this nurse to reach patients sonJessica Mauricio called back stated her boss instructed her to not take patient home. she will unlock patients house though. patients daughter does not have a vehicle so she can not picking crew supervisor her mom. she also stated her brother is estranged from their mother. Patient notified of nurse being unable to find transportation. Patient given a phone to call for a ride.
[2020-02-04] MEDS ORDERED: ONDA4TAB11 SL (15:32)
--- NOTE | 2020-02-04 16:45 | NUR ---
patient states she found a ride.
[2020-02-04 17:27] VITALS: BP 145/65
== END 2020-02-04 17:27 | disposition home or self-care (01) ==
LOC: EDUNIT# 13:36 → ER 13:37
DX: U07.1 COVID-19 (principal); R53.1 Weakness; E86.1 Hypovolemia; R11.2 Nausea with vomiting, unspecified; I25.2 Old myocardial infarction; K21.9 Gastro-esophageal reflux disease without esophagitis; J44.9 Chronic obstructive pulmonary disease, unspecified; E03.9 Hypothyroidism, unspecified; F32.9 Major depressive disorder, single episode, unspecified; F41.9 Anxiety disorder, unspecified; E78.00 Pure hypercholesterolemia, unspecified; I10 Essential (primary) hypertension; Z82.49 Family history of ischemic heart disease and other diseases of the circulatory system; Z85.038 Personal history of other malignant neoplasm of large intestine; Z95.5 Presence of coronary angioplasty implant and graft; Z95.9 Presence of cardiac and vascular implant and graft, unspecified; Z87.891 Personal history of nicotine dependence; Z79.890 Hormone replacement therapy; Z88.2 Allergy status to sulfonamides; Z88.1 Allergy status to other antibiotic agents; Z88.8 Allergy status to other drugs, medicaments and biological substances
CPT/HCPCS: 36415; 71045; 80053; 82550; 83735; 84145; 84439; 84443; 85025; 86141

== ENCOUNTER 2020-03-04 17:56 | Emergency (ER) | payer MEDICARE, MEDICAID ==
[~2020-03-04] VITALS: Ht 152.4 cm; Wt 67.7 kg
[~2020-03-04 17:56] MED LIST changes: +ONDA4TAB11 SL
--- NOTE | 2020-03-04 18:20 | ED Trauma-Multisystem ---
General Chief Complaint: Trauma-Non Activation Stated Complaint: FALL Nursing Triage Note: TO ED PER EMS FROM HOME PATIENT REPORTS FALLING BACKWARDS. NO LOC C/O PAIN IN L SHOULDER AND RIB AREA NO BRUSING NOTED. REFUSED C COLLAR BY EMS. (YISSEL MATHUR MED STUDENT) Source of Information: Patient, Caregiver, EMS, Old Records Exam Limitations: No Limitations (RADHA TOMPKINS MD) History of Present Illness Date Seen by Provider: Mar 04, 2020 Time Seen by Provider: 06:05 Initial Comments This is a 79 y/o F who presents to the Emergency Department with a chief complaint of a fall. She states she was trying to get her blind dog off the bed today when she lost her balance and fell backwards/sideways. She crawled to the living room to reach the phone. She complains of ear, neck, shoulder, arm, ribs, and hip pain on the left and a headache. She has abdominal pain from hernias. She denies fever or cough. EMS denies seeing any bruises and states that the patient refused a c-spine collar because it was hurting her. (YISSEL MATHUR MED STUDENT) Initial Comments Patient arrived via EMS. She denies any prodrome to the fall but stated she felt lightheaded afterwards. She struck her head on a carpeted floor as well as her left side. She primarily complains of pains on the left head, neck, torso, and hip. Her abdominal pains are chronic and unchanged from hernia. No loss of consciousness was reported. She is alert and oriented at this time. She refused c-collar for EMS but allowed me to place one reluctantly after explanation of risks and benefits. (RADHA TOMPKINS MD) Allergies and Home Medications Allergies Coded Allergies: ciprofloxacin (Verified Allergy, Intermediate, SKIN BURNING, 09/09/19) sulfamethoxazole (Verified Allergy, Intermediate, Vomiting, 09/09/19) trimethoprim (Verified Allergy, Intermediate, Vomiting, 09/09/19) erythromycin base (Verified Allergy, Unknown, 09/09/19) quinine (Verified Allergy, Unknown, 09/09/19) cephalexin (Verified Adverse Reaction, Severe, CONFUSION, DIZZINESS, 03/04/20) Home Medications Albuterol Sulfate 2.5 Mg/0.5 Ml Vial.neb, 2.5 MG INH Q4H PRN for WHEEZING, (Reported) Albuterol Sulfate 1 Puff Puff, 2 PUFF IH Q4H PRN for SHORTNESS OF BREATH, (Reported) Amoxicillin/Potassium Clav 1 Each Tablet, 1 EACH PO BID Prescribed by: IKE FRANK on 09/26/19 1126 Biotin 10 Mg Tablet, 10 MG PO DAILY, (Reported) Cyclosporine 1 Each Droperette, 1 DROP OU BID, (Reported) Duloxetine HCl 60 Mg Capsule.dr, 60 MG PO DAILY, (Reported) Eszopiclone 2 Mg Tablet, 2 MG PO HS, (Reported) Ezetimibe 10 Mg Tablet, 10 MG PO DAILY, (Reported) Fluticasone Propionate 9.9 Ml [place].susp, 2 SPRAY NS DAILY PRN for CONGESTION, (Reported) 2 SPRAYS PER NOSTRIL DAILY X 2 DAYS THEN 1 SPRAY DAILY Gabapentin 300 Mg Capsule, 300 MG PO BID, (Reported) Levothyroxine Sodium 112 Mcg Tablet, 112 MCG PO DAILY, (Reported) Lorazepam 1 Mg Tablet, 1 MG PO TID PRN for ANXIETY, (Reported) Metoprolol Succinate 50 Mg Tab.er.24h, 50 MG PO DAILY, (Reported) Nitroglycerin 0.4 Mg Tab.subl, 0.4 MG SL UD PRN for CHEST PAIN, (Reported) Ondansetron 4 Mg Tab.rapdis, 4 MG SL Q4H Prescribed by: RADHA RIVAS on 02/04/20 1532 Pantoprazole Sodium 40 Mg Tablet.dr, 40 MG PO BID, (Reported) Pregabalin 150 Mg Capsule, 150 MG PO BID, (Reported) Ropinirole HCl 4 Mg Tablet, 8 MG PO HS, (Reported) TAKES 2 (4MG) TABS TO EQUAL 8MG AT BEDTIME Sucralfate 1 Gm/10 Ml Oral.susp, 10 ML PO QIDACHS PRN for ULCER, (Reported) Patient Home Medication List Home Medication List Reviewed: Yes (RADHA TOMPKINS MD) Review of Systems Review of Systems Constitutional: No fever; weakness Eyes: Denies Blurred Vision Cardiovascular: Denies Chest Pain Gastrointestinal: abdominal pain (previously from hernia) Musculoskeletal: back pain, joint pain Skin: No change in color, No lesions Psychiatric/Neurological: Headache (YISSEL MATHUR X MED STUDENT) Ears: See HPI Nose: No Symptoms Reported Mouth: No Symptoms Reported Throat: No Symptoms to Report Respiratory: no symptoms reported Gastrointestinal: see HPI Genitourinary: no symptoms reported (RADHA TOMPKINS MD) Past Dhgldyy-Clkzkn-Wgxqaw Hx Patient Social History Alcohol Use: Denies Use Drug of Choice: denies Smoking Status: Former Smoker Type Used: Cigarettes Former Smoker, Quit: Mar 26, 1996 2nd Hand Smoke Exposure: No Recent Infectious Disease Expo: No Recent Hopitalizations: No (YISSEL MATHUR) Immunizations Up To Date Tetanus Booster (TDap): Unknown PED Vaccines UTD: No Date of Pneumonia Vaccine: Aug 20, 2017 Date of Influenza Vaccine: Nov 27, 2019 (YISSEL MATHUR) Seasonal Allergies Seasonal Allergies: Yes (YISSEL MATHUR) Past Medical History Surgeries: Yes (R LEG HEATHER, R THR, BACK-KYPHOPLASTY X3, HIATAL HERNIA X3, COLOSTOMY/REVERSAL) Abdominal, Appendectomy, Bladder Surgery, Bowel Surgery, Cardiac, Coronary Stent, Hysterectomy, Oophorectomy, Orthopedic, Tonsillectomy Respiratory: Yes (O2 AT HS) Pulmonary Embolism, Sleep Apnea, COPD Currently Using CPAP: No Currently Using BIPAP: No Cardiac: Yes (CARDIAC CATH WITH STENTS X 2) Chronic Edema/Swelling, Coronary Artery Disease, Deep Vein Thrombosis, Heart Attack, High Cholesterol, Hypertension Neurological: No Vertigo 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 Disorders: No [employer] History: Hysterectomy, Menopausal Sexually Transmitted Disease: No HIV/AIDS: No Genitourinary: Yes (INCONTINENCE) Kidney Infection, Bladder Infection, UTI-Chronic Gastrointestinal: Yes (COLON CANCER) Abdominal Hernia, Gastroesophageal Reflux, Diverticulosis, Esophagitis Musculoskeletal: Yes Osteoporosis, Arthritis, Chronic Back Pain, Fractures Endocrine: Yes Hypothyroidsim HEENT: Yes ( DENTURES) Dysphagia Loss of Vision: Denies Hearing Impairment: Denies Cancer: Yes Colon Psychosocial: Yes Anxiety, Depression Integumentary: No Blood Disorders: Yes (anemia) Adverse Reaction/Blood Tranf: No (HAS HAD BLOOD WITH NO REACTION) (YISSEL MATHUR) Family Medical History Family history: Hypertension G8 BROTHER Myocardial infarction 19 MOTHER G8 BROTHER Physical Exam Vital Signs Vital Signs - First Documented 03/04/20 18:00 Temp 36.2 Pulse 96 Resp 18 B/P (MAP) 148/104 (119) Pulse Ox 96 O2 Delivery Room Air (RADHA TOMPKINS MD) Height, Weight, BMI Height: 5'2.00" Weight: 163lbs. 0.0oz. 73.814409lg; 29.00 BMI Method:Stated General Appearance: Mild Distress Head: No Lacerations, No Swelling Neck: Tender Lateral Cardiovascular: Regular Rate, Rhythm Respiratory: Chest Non Tender, Lungs Clear, Normal Breath Sounds, No Accessory Muscle Use, No Respiratory Distress Gastrointestinal: Hernia Back: CVA Tenderness (L) Extremity: Non Tender, No Pedal Edema Neurologic/Psychiatric: Alert, Oriented x3, Normal Mood/Affect Skin: Normal Color, Warm/Dry; No Ecchymosis, No Erythema (YISSEL MATHUR MED STUDENT) Progress/Results/Core Measures Results/Orders Lab Results Laboratory Tests Test 03/04/20 18:50 03/04/20 19:45 Range/Units White Blood Count 6.4 4.3-11.0 10^3/uL Red Blood Count 4.50 3.80-5.11 10^6/uL Hemoglobin 10.7 L 11.5-16.0 g/dL Hematocrit 36 35-52 % Mean Corpuscular Volume 80 80-99 fL Mean Corpuscular Hemoglobin 24 L 25-34 pg Mean Corpuscular Hemoglobin Concent 30 L 32-36 g/dL Red Cell Distribution Width 21.9 H 10.0-14.5 % Platelet Count 377 130-400 10^3/uL Mean Platelet Volume 10.2 9.0-12.2 fL Immature Granulocyte % (Auto) 3 % Neutrophils (%) (Auto) 60 42-75 % Lymphocytes (%) (Auto) 25 12-44 % Monocytes (%) (Auto) 8 0-12 % Eosinophils (%) (Auto) 4 0-10 % Basophils (%) (Auto) 1 0-10 % Neutrophils # (Auto) 3.9 1.8-7.8 10^3/uL Lymphocytes # (Auto) 1.6 1.0-4.0 10^3/uL Monocytes # (Auto) 0.5 0.0-1.0 10^3/uL Eosinophils # (Auto) 0.3 0.0-0.3 10^3/uL Basophils # (Auto) 0.0 0.0-0.1 10^3/uL Immature Granulocyte # (Auto) 0.2 H 0.0-0.1 10^3/uL Sodium Level 135 135-145 MMOL/L Potassium Level 4.0 3.6-5.0 MMOL/L Chloride Level 100 98-107 MMOL/L Carbon Dioxide Level 26 21-32 MMOL/L Anion Gap 9 5-14 MMOL/L Blood Urea Nitrogen 14 7-18 MG/DL Creatinine 0.83 0.60-1.30 MG/DL Estimat Glomerular Filtration Rate > 60 BUN/Creatinine Ratio 17 Glucose Level 113 H 70-105 MG/DL Calcium Level 9.5 8.5-10.1 MG/DL Corrected Calcium 9.6 8.5-10.1 MG/DL Magnesium Level 2.1 1.6-2.4 MG/DL Total Bilirubin 0.4 0.1-1.0 MG/DL Aspartate Amino Transf (AST/SGOT) 13 5-34 U/L Alanine Aminotransferase (ALT/SGPT) 12 0-55 U/L Alkaline Phosphatase 109 40-136 U/L Total Protein 6.6 6.4-8.2 GM/DL Albumin 3.9 3.2-4.5 GM/DL Urine Color YELLOW Urine Clarity SL CLOUDY Urine pH 6.0 5-9 Urine Specific [place] 1.010 L 1.016-1.022 Urine Protein NEGATIVE NEGATIVE Urine Glucose (UA) NEGATIVE NEGATIVE Urine Ketones NEGATIVE NEGATIVE Urine Nitrite POSITIVE H NEGATIVE Urine Bilirubin NEGATIVE NEGATIVE Urine Urobilinogen 0.2 < = 1.0 MG/DL Urine Leukocyte Esterase TRACE H NEGATIVE Urine RBC (Auto) NEGATIVE NEGATIVE Urine RBC NONE /HPF Urine WBC 10-25 H /HPF Urine Crystals PRESENT H /LPF Urine Amorphous Sediment FEW DUARTE URATES H /LPF Urine Bacteria MODERATE H /HPF Urine Casts NONE /LPF Urine Mucus NEGATIVE /LPF Urine Culture Indicated YES (RADHA TOMPKINS MD) My Orders Orders - RADHA TOMPKINS MD Cbc With Automated Diff (03/04/20 18:29) Comprehensive Metabolic Panel (03/04/20 18:29) Magnesium (03/04/20 18:29) Ua Culture If Indicated (03/04/20 18:29) Ed Iv/Invasive Line Start (03/04/20 18:29) Lactated Ringers (Lr 1000 Ml Iv Solution (03/04/20 18:30) Ct Head/Cervical Spine Wo (03/04/20 18:29) Ct Chest/Abdomen/Pelvis W (03/04/20 18:34) Fentanyl Injection (Sublimaze Injection (03/04/20 18:45) Lorazepam Tablet (Ativan Tablet) (03/04/20 19:51) Urine Culture (03/04/20 19:45) Ceftriaxone For Iv Use (Rocephin For I (03/04/20 20:30) (RADHA TOMPKINS MD) Medications Given in ED Current Medications Medications Dose Ordered Sig/Perez Route Start Time Stop Time Status Last Admin Dose Admin Fentanyl Citrate 25 mcg ONCE ONCE IVP 03/04/20 18:45 03/04/20 18:46 DC 03/04/20 19:29 25 MCG Iohexol 100 ml ONCE ONCE IV 03/04/20 19:30 03/04/20 19:31 DC 03/04/20 19:26 100 ML Lactated Ringer's 1,000 ml @ 0 mls/hr Q0M ONCE IV 03/04/20 18:30 03/04/20 18:32 DC 03/04/20 19:29 0 MLS/HR Sodium Chloride 100 ml ONCE ONCE IV 03/04/20 19:30 03/04/20 19:31 DC 03/04/20 19:26 100 ML (RADHA TOMPKINS MD) Vital Signs/I&O 03/04/20 03/04/20 18:00 18:48 Temp 36.2 Pulse 96 63 Resp 18 18 B/P (MAP) 148/104 (119) 157/71 (99) Pulse Ox 96 98 O2 Delivery Room Air (RADHA TOMPKINS MD) Blood Pressure Mean: 119 Progress Progress Note : Time: 18:50 Progress Note - Obtain CT of head, chest, and pelvis, results pending. IV line established. Ordered CBC. Dr. Tompkins was able to convince the patient to wear a c-spine collar. Fentanyl was ordered to control pain. (YISSEL MATHUR MED STUDENT) Progress Note #1: Time: 19:34 Progress Note CTs were reviewed by me. No serious injuries were identified but reports are pending. Patient refused c-collar stating it was hurting her neck too much. Risks of removing the c-collar were explained to her and she still requested it be removed. She commits to keeping her head manually and mobilized until the CT is read. Labs were unremarkable. UA is pending. A liter of IV fluids is infusing. She had requested something for pain and anxiety. Fentanyl was administered. Progress Note #2: Time: 20:34 Progress Note Urinary tract infection was identified by catheter urinalysis. Rocephin was given after review of prior urine cultures. Patient is accustomed to taking Ativan 3 times a day for anxiety. She was given an evening dose of Ativan 1 mg orally in the ER. She is being discharged into the care of her home caregiver. No acute injuries were identified on CT reports. (RADHA TOMPKINS MD) Diagnostic Imaging Diagonstic Imaging: CT Plain Films/CT/US/NM/MRI: chest, abdomen, pelvis Comments CT chest, abdomen, pelvis viewed by me and report reviewed. See report below: NAME: [facility] REC#: [id number] PT STATUS: REG ER : 1940 PHYSICIAN: RADHA TOMPKINS MD ADMIT DATE: 03/04/20/ER Draft Date of Exam:03/04/20 CT CHEST/ABDOMEN/PELVIS W PROCEDURE: CT chest, abdomen and pelvis with contrast. TECHNIQUE: Multiple contiguous axial images were obtained through the chest, abdomen, and pelvis after the administration of intravenous contrast. Auto Exposure Controls were utilized during the CT exam to meet ALARA standards for radiation dose reduction. INDICATION: Trauma, fall. COMPARISON: CT abdomen and pelvis from 01/25/[address] chest of 10/24/2019. FINDINGS: CT chest: The thyroid is normal. No supraclavicular axillary lymphadenopathy. No mediastinal hemorrhage or lymphadenopathy. Normal caliber thoracic aorta without dissection. Moderate tortuosity of the distal descending aorta. No pericardial effusion. No pleural effusion or pneumothorax. No endoluminal nodule within trachea. No pulmonary mass or consolidation. Minimal atelectasis is present in the left lower lobe adjacent to the tortuous aorta. No acute rib fracture. There appears to be an old healed fracture of the right medial clavicular head. No acute clavicle fracture. No acute compression or burst fracture in the thoracic spine. Chronic superior endplate fracture of T6. Vertebral augmentation has been performed at T8, T10 and T12 which are stable in appearance. CT abdomen/pelvis: No free intraperitoneal air or fluid. Diastasis of the rectus abdominis is again noted. Epigastric fat-containing hernia is unchanged in the midline. No laceration or subcapsular hematoma involving the liver or spleen. Pancreas is normal. Gallbladder is contracted without radiopaque gallstones. No biliary dilatation. The adrenals are normal. Kidneys enhance symmetrically without mass lesion or features of laceration. No renal collecting system injury. No retroperitoneal hemorrhage. No pericolonic inflammatory change. Left-sided herniorrhaphy is stable in appearance. Proximal femoral nail fixation of the healed right intertrochanteric fracture. No acute fracture within the proximal femurs or pelvis. Vertebral augmentation of L5. IMPRESSION: 1. No acute traumatic injury in the chest, abdomen or pelvis. 2. No acute fracture within the thoracic or lumbar spine. Multilevel chronic compression fractures are unchanged, some of which have undergone vertebral augmentation. Dictated on workstation # [id number] Dict: 03/04/201923 Trans: 03/04/201934 [facility] [id number] Interpreted by: LUCIAN GUO MD Diagonstic Imaging: CT Plain Films/CT/US/NM/MRI: c-spine, head Comments CT head and cervical spine viewed by me and report reviewed. See report below: NAME: [facility] REC#: [id number] PT STATUS: REG ER : 1940 PHYSICIAN: RADHA TOMPKINS MD ADMIT DATE: 03/04/20/ER Signed Date of Exam:03/04/20 CT HEAD/CERVICAL SPINE WO INDICATION: Fall with headache and dizziness and left-sided neck pain. COMPARISON: 05/12/2019. TECHNIQUE: Multiple contiguous axial images were obtained through the brain and cervical spine without the use of intravenous contrast. Sagittal and coronal reformations through the cervical spine were then performed. Auto Exposure Controls were utilized during the CT exam to meet ALARA standards for radiation dose reduction. CT brain findings: There are mild diffuse atrophic changes. There are low-density changes in the deep white matter compatible with chronic ischemic change. There is no acute hemorrhage, mass effect or midline shift. The ventricles are normal in size and position. There is no acute parenchymal abnormality in the brain. Calvarial windows show no fracture. CT cervical spine findings: There is no evidence of cervical spine fracture. There is no subluxation or malalignment. Disc spaces appear normal in height. IMPRESSION: 1. CT brain shows chronic changes as above with no acute intracranial hemorrhage or acute intercranial finding. There is no calvarial fracture. 2. CT cervical spine shows no acute abnormality. Dictated by: Dictated on workstation # [id number] Dict: 03/04/201923 Trans: 03/04/201936 [id number] Interpreted by: LIANA FERNANDES MD Electronically signed by: LIANA FERNANDES MD 03/04/201936 (RADHA TOMPKINS MD) Departure Impression Primary Impression: Fall on same level Qualified Codes: W18.30XA - Fall on same level, unspecified, initial encounter Additional Impressions: Urinary tract infection Qualified Codes: N39.0 - Urinary tract infection, site not specified Contusion of left hip Qualified Codes: S70.02XA - Contusion of left hip, initial encounter Contusion of left chest wall Qualified Codes: S20.212A - Contusion of left front wall of thorax, initial encounter Back pain Qualified Codes: M54.9 - Dorsalgia, unspecified Disposition: 01 HOME, SELF-CARE Condition: Improved Departure-Patient Inst. Decision time for Depature: 20:30 (RADHA TOMPKINS MD) Referrals: TORIBIO BREWER DO (PCP/Family) Primary Care Physician Patient Instructions: Preventing Falls in the Older Adult, Urinary Tract Infection, Adult (DC) Add. Discharge Instructions: Drink plenty of clear liquids and complete your antibiotic as prescribed. Take Tylenol (acetaminophen) up to 1000 mg every 6 hours as needed for pain. Follow-up with Dr. Brewer on Monday or early next week to review urine culture results. Call with questions or concerns. Return to the emergency room if you have worsening symptoms. All discharge instructions reviewed with patient and/or family. Voiced understanding. Medical Student Attestation and Attending Note: I have personally interviewed and examined this patient along with Iyssel Mathur, MS 3. I have reviewed student documentation including history, physical, and assessments. I agree with the documentation except where otherwise noted. Exam: General: Alert, oriented, mild acute distress, well developed Neck: left posterior TTP HEENT: Normocephalic and atraumatic Heart: Regular rate and rhythm without murmur Lungs: Clear to auscultation bilaterally with normal effort, tenderness to left chest and posterior hip Abdomen: Soft, right lower hernia, no change in chronic tenderness, normal bowel sounds Neuropsych: Alert, oriented, no focal deficits Skin: Warm and dry without rashes, no bruising (RADHA TOMPKINS MD) Copy Copies To 1: TORIBIO BREWER ELIZABETH X MED STUDENT Mar 04, 2020 18:20 RADHA TOMPKINS MD Mar 04, 2020 19:43
--- NOTE | 2020-03-04 18:23 | NUR ---
C COLLAR PLACED BY DR FLORES
[2020-03-04] MEDS ORDERED: LACTATED RINGERS 1,000 ML IV ONE (18:30)
--- NOTE | 2020-03-04 18:41 | NUR ---
CALLED TO ROOM WOULD LIKE C COLLAR REMOVED DR TO MISHEL. WILL LEAVE C COLLAR IN PLACE AFTER TALKING WITH
[2020-03-04] MEDS ORDERED: fentaNYL INJECTION 100 MCG/2 ML AMP IVP ONE (18:45)
--- NOTE | 2020-03-04 18:52 | NUR ---
REPORT TO JULITO BANG
[2020-03-04 19:07] LABS: BASOPHILS % (AUTO) 1 % (0-10); EOSINOPHILS # (AUTO) 0.3 10^3/uL (0.0-0.3); EOSINOPHILS % (AUTO) 4 % (0-10); HEMATOCRIT 36 % (35-52); HEMOGLOBIN 10.7 g/dL (11.5-16.0); LYMPHOCYTES # (AUTO) 1.6 10^3/uL (1.0-4.0); LYMPHOCYTES % (AUTO) 25 % (12-44); MEAN CORPUSCULAR HEMOGLOBIN 24 pg (25-34); MEAN CORPUSCULAR HGB CONC 30 g/dL (32-36); MEAN CORPUSCULAR VOLUME 80 fL (80-99); MEAN PLATELET VOLUME 10.2 fL (9.0-12.2); MONOCYTES # (AUTO) 0.5 10^3/uL (0.0-1.0); MONOCYTES % (AUTO) 8 % (0-12); NEUTROPHILS # (AUTO) 3.9 10^3/uL (1.8-7.8); NEUTROPHILS % (AUTO) 60 % (42-75); PLATELET COUNT 377 10^3/uL (130-400); WHITE BLOOD COUNT 6.4 10^3/uL (4.3-11.0)
[2020-03-04 19:15] LABS: ALANINE AMINOTRANSFERASE 12 U/L (0-55); ALBUMIN 3.9 GM/DL (3.2-4.5); ALKALINE PHOSPHATASE 109 U/L (40-136); BILIRUBIN,TOTAL 0.4 MG/DL (0.1-1.0); BUN/CREATININE RATIO 17; CALCIUM 9.5 MG/DL (8.5-10.1); CARBON DIOXIDE 26 MMOL/L (21-32); CHLORIDE 100 MMOL/L (98-107); CREATININE SERUM 0.83 MG/DL (0.60-1.30); GFR ESTIMATED > 60; GLUCOSE 113 MG/DL (70-105); MAGNESIUM 2.1 MG/DL (1.6-2.4); SODIUM 135 MMOL/L (135-145); TOTAL PROTEIN 6.6 GM/DL (6.4-8.2)
[2020-03-04] MEDS ORDERED: NS 100 ML (IVPB) BAG IV ONE (19:30)
[2020-03-04] MEDS ORDERED: IOHEXOL 350 MG/ML 100 ML (OMNIPAQUE 350) VIAL IV ONE (19:30)
[2020-03-04] MEDS ORDERED: HOLD METFORMIN - RECEIVED CONTRAST 20 ML VIAL IV SCH (19:30)
--- NOTE | 2020-03-04 19:31 | Diagnostic Imaging Report ---
INDICATION: Fall with headache and dizziness and left-sided neck pain. COMPARISON: 05/12/2019. TECHNIQUE: Multiple contiguous axial images were obtained through the brain and cervical spine without the use of intravenous contrast. Sagittal and coronal reformations through the cervical spine were then performed. Auto Exposure Controls were utilized during the CT exam to meet ALARA standards for radiation dose reduction. CT brain findings: There are mild diffuse atrophic changes. There are low-density changes in the deep white matter compatible with chronic ischemic change. There is no acute hemorrhage, mass effect or midline shift. The ventricles are normal in size and position. There is no acute parenchymal abnormality in the brain. Calvarial windows show no fracture. CT cervical spine findings: There is no evidence of cervical spine fracture. There is no subluxation or malalignment. Disc spaces appear normal in height. IMPRESSION: 1. CT brain shows chronic changes as above with no acute intracranial hemorrhage or acute intercranial finding. There is no calvarial fracture. 2. CT cervical spine shows no acute abnormality. Dictated by: Dictated on workstation # [id number]
--- NOTE | 2020-03-04 19:35 | Diagnostic Imaging Report ---
PROCEDURE: CT chest, abdomen and pelvis with contrast. TECHNIQUE: Multiple contiguous axial images were obtained through the chest, abdomen, and pelvis after the administration of intravenous contrast. Auto Exposure Controls were utilized during the CT exam to meet ALARA standards for radiation dose reduction. INDICATION: Trauma, fall. COMPARISON: CT abdomen and pelvis from 01/25/[address] chest of 10/24/2019. FINDINGS: CT chest: The thyroid is normal. No supraclavicular axillary lymphadenopathy. No mediastinal hemorrhage or lymphadenopathy. Normal caliber thoracic aorta without dissection. Moderate tortuosity of the distal descending aorta. No pericardial effusion. No pleural effusion or pneumothorax. No endoluminal nodule within trachea. No pulmonary mass or consolidation. Minimal atelectasis is present in the left lower lobe adjacent to the tortuous aorta. No acute rib fracture. There appears to be an old healed fracture of the right medial clavicular head. No acute clavicle fracture. No acute compression or burst fracture in the thoracic spine. Chronic superior endplate fracture of T6. Vertebral augmentation has been performed at T8, T10 and T12 which are stable in appearance. CT abdomen/pelvis: No free intraperitoneal air or fluid. Diastasis of the rectus abdominis is again noted. Epigastric fat-containing hernia is unchanged in the midline. No laceration or subcapsular hematoma involving the liver or spleen. Pancreas is normal. Gallbladder is contracted without radiopaque gallstones. No biliary dilatation. The adrenals are normal. Kidneys enhance symmetrically without mass lesion or features of laceration. No renal collecting system injury. No retroperitoneal hemorrhage. No pericolonic inflammatory change. Left-sided herniorrhaphy is stable in appearance. Proximal femoral nail fixation of the healed right intertrochanteric fracture. No acute fracture within the proximal femurs or pelvis. Vertebral augmentation of L5. IMPRESSION: 1. No acute traumatic injury in the chest, abdomen or pelvis. 2. No acute fracture within the thoracic or lumbar spine. Multilevel chronic compression fractures are unchanged, some of which have undergone vertebral augmentation. Dictated by: Dictated on workstation # [id number]
[2020-03-04] MEDS ORDERED: LORazepam 0.5 MG (ATIVAN) TABLET PO STA (19:51)
[2020-03-04 19:56] LABS: BILIRUBIN,URINE NEGATIVE (NEGATIVE); CLARITY,URINE SL CLOUDY; COLOR,URINE YELLOW; GLUCOSE, URINE (UA) NEGATIVE (NEGATIVE); KETONES,URINE NEGATIVE (NEGATIVE); LEUKOCYTE ESTERASE ,URINE TRACE (NEGATIVE); NITRITE,URINE POSITIVE (NEGATIVE); PROTEIN,URINE NEGATIVE (NEGATIVE)
[2020-03-04 20:10] LABS: AMORPHOUS SEDIMENT,UR FEW AMOR URATES /LPF; BACTERIA,URINE MODERATE /HPF
[2020-03-04] MEDS ORDERED: cefTRIAXone FOR IV USE 1,000 MG in WATER (STERILE) FOR INJECTION 10 ML IV ONE (20:30)
[2020-03-04] MEDS ORDERED: CEFD300C3 PO (20:38)
[2020-03-04 20:45] VITALS: BP 182/85
== END 2020-03-04 21:10 | disposition home or self-care (01) ==
LOC: EDUNIT# 17:56 → ER 17:57
DX: S70.02XA Contusion of left hip, initial encounter (principal); S20.212A Contusion of left front wall of thorax, initial encounter; N39.0 Urinary tract infection, site not specified; M54.9 Dorsalgia, unspecified; I10 Essential (primary) hypertension; E03.9 Hypothyroidism, unspecified; E78.00 Pure hypercholesterolemia, unspecified; I25.2 Old myocardial infarction; K21.9 Gastro-esophageal reflux disease without esophagitis; F32.9 Major depressive disorder, single episode, unspecified; F41.9 Anxiety disorder, unspecified; J44.9 Chronic obstructive pulmonary disease, unspecified; Z88.1 Allergy status to other antibiotic agents; Z88.2 Allergy status to sulfonamides; Z88.8 Allergy status to other drugs, medicaments and biological substances; Z87.891 Personal history of nicotine dependence; Z85.038 Personal history of other malignant neoplasm of large intestine; Z95.5 Presence of coronary angioplasty implant and graft; Z82.49 Family history of ischemic heart disease and other diseases of the circulatory system; Z95.9 Presence of cardiac and vascular implant and graft, unspecified; Z79.890 Hormone replacement therapy; W18.30XA Fall on same level, unspecified, initial encounter
CPT/HCPCS: 36415; 70450; 71260; 72125; 74177; 80053; 81000; 83735; 85025; 87077; 87088; 87186

== ENCOUNTER 2020-04-14 15:16 | Emergency (ER) | payer MEDICARE, MEDICAID ==
[~2020-04-14] VITALS: Ht 152 cm; Wt 73.0 kg
--- NOTE | 2020-04-14 16:09 | ED Lower Extremity ---
General Chief Complaint: Lower Extremity Stated Complaint: L LEG POSS BLOOD CLOT Nursing Triage Note: ARRIVED WITH BILAT LEG PAIN. WAS SEEN BY HOME HEALTH TODAY AND NURSE THOUGHT A KNOT ON HER LOWER LEFT LEG MIGHT BE A CLOT. Nursing Sepsis Screen: No Definite Risk History of Present Illness Date Seen by Provider: Apr 14, 2020 Time Seen by Provider: 15:40 Initial Comments 79-year-old female presents for bilateral ankle and calf pain. She is on Plavix and has a history of restless leg syndrome. She was seen by home health today who noticed a small bump on her left lower leg her primary care provider was notified and she was instructed to come here to have an ultrasound done. No history of DVTs. She takes aspirin as well daily. She wears oxygen intermittently through the day and at night. She denies any other complaints at this time. Onset: yesterday Pain/Injury Location: bilateral ankle Method of Injury: unknown Allergies and Home Medications Allergies Coded Allergies: ciprofloxacin (Verified Allergy, Intermediate, SKIN BURNING, 09/09/19) sulfamethoxazole (Verified Allergy, Intermediate, Vomiting, 09/09/19) trimethoprim (Verified Allergy, Intermediate, Vomiting, 09/09/19) erythromycin base (Verified Allergy, Unknown, 09/09/19) quinine (Verified Allergy, Unknown, 09/09/19) cephalexin (Verified Adverse Reaction, Severe, CONFUSION, DIZZINESS, 03/04/20) Home Medications Albuterol Sulfate 2.5 Mg/0.5 Ml Vial.neb, 2.5 MG INH Q4H PRN for WHEEZING, (Reported) Albuterol Sulfate 1 Puff Puff, 2 PUFF IH Q4H PRN for SHORTNESS OF BREATH, (Reported) Amoxicillin/Potassium Clav 1 Each Tablet, 1 EACH PO BID Prescribed by: IKE FRANK on 09/26/191125 Biotin 10 Mg Tablet, 10 MG PO DAILY, (Reported) Cefdinir 300 Mg Capsule, 300 MG PO BID Prescribed by: RADHA RIVAS on 03/04/202037 Cyclosporine 1 Each Droperette, 1 DROP OU BID, (Reported) Duloxetine HCl 60 Mg Capsule.dr, 60 MG PO DAILY, (Reported) Eszopiclone 2 Mg Tablet, 2 MG PO HS, (Reported) Ezetimibe 10 Mg Tablet, 10 MG PO DAILY, (Reported) Fluticasone Propionate 9.9 Ml Boswell.susp, 2 SPRAY NS DAILY PRN for CONGESTION, (Reported) 2 SPRAYS PER NOSTRIL DAILY X 2 DAYS THEN 1 SPRAY DAILY Gabapentin 300 Mg Capsule, 300 MG PO BID, (Reported) Levothyroxine Sodium 112 Mcg Tablet, 112 MCG PO DAILY, (Reported) Lorazepam 1 Mg Tablet, 1 MG PO TID PRN for ANXIETY, (Reported) Metoprolol Succinate 50 Mg Tab.er.24h, 50 MG PO DAILY, (Reported) Nitroglycerin 0.4 Mg Tab.subl, 0.4 MG SL UD PRN for CHEST PAIN, (Reported) Ondansetron 4 Mg Tab.rapdis, 4 MG SL Q4H Prescribed by: RADHA RIVAS on 02/04/20 1532 Pantoprazole Sodium 40 Mg Tablet.dr, 40 MG PO BID, (Reported) Pregabalin 150 Mg Capsule, 150 MG PO BID, (Reported) Ropinirole HCl 4 Mg Tablet, 8 MG PO HS, (Reported) TAKES 2 (4MG) TABS TO EQUAL 8MG AT BEDTIME Sucralfate 1 Gm/10 Ml Oral.susp, 10 ML PO QIDACHS PRN for ULCER, (Reported) Patient Home Medication List Home Medication List Reviewed: Yes Review of Systems Constitutional: no symptoms reported, see HPI Musculoskeletal: see HPI, muscle pain (Bilateral lower legs) All Other Systems Reviewed Negative Unless Noted: Yes Past Dnkroli-Lmwpnp-Qawnrt Hx Past Med/Social Hx: Reviewed Nursing Past Med/Soc Hx Patient Social History Alcohol Use: Denies Use Drug of Choice: denies Smoking Status: Former Smoker Type Used: Cigarettes Former Smoker, Quit: Mar 26, 1996 2nd Hand Smoke Exposure: No Recent Infectious Disease Expo: No Recent Hopitalizations: No Immunizations Up To Date Tetanus Booster (TDap): Unknown PED Vaccines UTD: No Date of Pneumonia Vaccine: Aug 20, 2017 Date of Influenza Vaccine: Nov 27, 2019 Seasonal Allergies Seasonal Allergies: Yes Past Medical History Surgeries: Yes (R LEG HEATHER, R THR, BACK-KYPHOPLASTY X3, HIATAL HERNIA X3, COLOS THAO/REVERSAL) Abdominal, Appendectomy, Bladder Surgery, Bowel Surgery, Cardiac, Coronary Stent, Hysterectomy, Oophorectomy, Orthopedic, Tonsillectomy Respiratory: Yes (O2 AT HS) Pulmonary Embolism, Sleep Apnea, COPD Currently Using CPAP: No Currently Using BIPAP: No Cardiac: Yes (CARDIAC CATH WITH STENTS X 2) Chronic Edema/Swelling, Coronary Artery Disease, Deep Vein Thrombosis, Heart Attack, High Cholesterol, Hypertension Neurological: No Vertigo 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 Disorders: No 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[employer]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 History: Hysterectomy, Menopausal Sexually Transmitted Disease: No HIV/AIDS: No Genitourinary: Yes (INCONTINENCE) Kidney Infection, Bladder Infection, UTI-Chronic Gastrointestinal: Yes (COLON CANCER) Abdominal Hernia, Gastroesophageal Reflux, Diverticulosis, Esophagitis Musculoskeletal: Yes Osteoporosis, Arthritis, Chronic Back Pain, Fractures Endocrine: Yes Hypothyroidsim HEENT: Yes ( DENTURES) Dysphagia Loss of Vision: Denies Hearing Impairment: Denies Cancer: Yes Colon Psychosocial: Yes Anxiety, Depression Integumentary: No Blood Disorders: Yes (anemia) Adverse Reaction/Blood Tranf: No (HAS HAD BLOOD WITH NO REACTION) Family Medical History Family history: Hypertension G8 BROTHER Myocardial infarction 19 MOTHER G8 BROTHER Physical Exam Vital Signs Vital Signs - First Documented 04/14/20 15:25 Temp 36.6 Pulse 72 Resp 16 B/P (MAP) 151/75 (100) Pulse Ox 95 O2 Delivery Room Air Capillary Refill : Less Than 3 Seconds Height, Weight, BMI Height: 5'2.00" Weight: 163lbs. 0.0oz. [id number]; 31.00 BMI Method:Stated General Appearance: WD/WN, no apparent distress Neck: non-tender, full range of motion, supple, normal inspection Cardiovascular: normal peripheral pulses, regular rate, rhythm, no murmur Respiratory: chest non-tender, lungs clear, normal breath sounds Gastrointestinal: normal bowel sounds, non tender, soft Legs: bilateral leg normal inspection, bilateral leg normal range of motion, bilateral leg soft tissue tenderness, bilateral leg other (Pain in gastroc. with dorsiflexion of the ankles, bilaterally.) Neurologic/Tendon: normal sensation, normal motor functions, normal tendon functions Neurologic/Psychiatric: no motor/sensory deficits, alert, normal mood/affect, oriented x 3 Skin: normal color, warm/dry Progress/Results/Core Measures Results/Orders My Orders Orders - ALIZA HENRY Venous Lower Ext Yoli (04/14/20 15:49) Vital Signs/I&O 04/14/20 04/14/20 15:25 16:44 Temp 36.6 36.6 Pulse 72 72 Resp 16 16 B/P (MAP) 151/75 (100) 151/75 (100) Pulse Ox 95 95 O2 Delivery Room Air Blood Pressure Mean: 100 Diagnostic Imaging Diagonstic Imaging: Ultrasound Plain Films/CT/US/NM/MRI: leg Comments NAME: [facility] REC#: [id number] PT STATUS: REG ER : 1940 PHYSICIAN: ALIZA HENRY ADMIT DATE: 04/14/20/ER Draft Date of Exam:04/14/20 US VENOUS LOWER EXT YOLI PROCEDURE: US Venous Lower Ext Yoli. TECHNIQUE: Multiple real-time grayscale images were obtained over the lower extremities in various projections, bilaterally. Additional duplex Doppler and color Doppler images were also obtained. INDICATION: Bilateral lower extremity pain and swelling. FINDINGS: There is no evidence of right or left lower extremity DVT. Both lower extremity deep venous systems shows normal compressibility with normal response to augmentation and Valsalva. No fluid collection or mass is detected. IMPRESSION: No evidence of right or left lower extremity DVT. Dictated on workstation # [id number] Dict: 04/14/20 1630 Trans: 04/14/20 1634 [id number] Interpreted by: MARTINEZ NAPIER MD Electronically signed by: Departure Impression Primary Impression: Restless leg syndrome Disposition: 01 HOME, SELF-CARE Condition: Improved Departure-Patient Inst. Decision time for Depature: 16:35 Referrals: TORIBIO FOFANA DO (PCP/Family) Primary Care Physician Patient Instructions: Restless Legs Syndrome (DC) Add. Discharge Instructions: Follow-up with your primary care provider if symptoms are not improving or worsen. Continue your medications as prescribed. Try a tablespoon of mustard when your legs are cramping. Return to the emergency department for new, urgent healthcare needs. All discharge instructions reviewed with patient and/or family. Voiced understanding. Copy Copies To 1: TORIBIO FOFANA AMY ARNP Apr 14, 2020 16:08
--- NOTE | 2020-04-14 16:35 | Diagnostic Imaging Report ---
PROCEDURE: US Venous Lower Ext Tyrell. TECHNIQUE: Multiple real-time grayscale images were obtained over the lower extremities in various projections, bilaterally. Additional duplex Doppler and color Doppler images were also obtained. INDICATION: Bilateral lower extremity pain and swelling. FINDINGS: There is no evidence of right or left lower extremity DVT. Both lower extremity deep venous systems shows normal compressibility with normal response to augmentation and Valsalva. No fluid collection or mass is detected. IMPRESSION: No evidence of right or left lower extremity DVT. Dictated by: Dictated on workstation # [id number]
[2020-04-14 16:44] VITALS: BP 151/75
== END 2020-04-14 16:44 | disposition home or self-care (01) ==
LOC: EDUNIT# 15:16 → ER 15:17
DX: G25.81 Restless legs syndrome (principal); G47.30 Sleep apnea, unspecified; I10 Essential (primary) hypertension; I25.10 Atherosclerotic heart disease of native coronary artery without angina pectoris; I25.2 Old myocardial infarction; E78.00 Pure hypercholesterolemia, unspecified; E89.0 Postprocedural hypothyroidism; K21.9 Gastro-esophageal reflux disease without esophagitis; M81.0 Age-related osteoporosis without current pathological fracture; F41.9 Anxiety disorder, unspecified; F32.9 Major depressive disorder, single episode, unspecified; J44.9 Chronic obstructive pulmonary disease, unspecified; Z87.891 Personal history of nicotine dependence; Z86.711 Personal history of pulmonary embolism; Z85.038 Personal history of other malignant neoplasm of large intestine; Z79.02 Long term (current) use of antithrombotics/antiplatelets; Z79.82 Long term (current) use of aspirin; Z99.81 Dependence on supplemental oxygen; Z79.51 Long term (current) use of inhaled steroids; Z79.890 Hormone replacement therapy; Z95.5 Presence of coronary angioplasty implant and graft; Z86.718 Personal history of other venous thrombosis and embolism; Z88.1 Allergy status to other antibiotic agents; Z88.2 Allergy status to sulfonamides; Z88.8 Allergy status to other drugs, medicaments and biological substances
CPT/HCPCS: 93970

== ENCOUNTER → 2020-04-14 | Outpatient (CLI) | payer MEDICARE, MEDICAID ==
[~2020-04-14] MED LIST changes: -CIPR500T4; -CIPR500T4 PO; +CIPR500T5; +CIPR500T5 PO; -LACT10SO PO; +LACT10SO3 PO; -METO10TA3 PO; +MTC10T PO
[2020-04-14 11:13] LABS: BASOPHILS % (AUTO) 0 % (0-10); EOSINOPHILS # (AUTO) 0.2 10^3/uL (0.0-0.3); EOSINOPHILS % (AUTO) 4 % (0-10); HEMATOCRIT 36 % (35-52); LYMPHOCYTES # (AUTO) 1.3 10^3/uL (1.0-4.0); LYMPHOCYTES % (AUTO) 22 % (12-44); MEAN CORPUSCULAR HEMOGLOBIN 25 pg (25-34); MEAN CORPUSCULAR HGB CONC 31 g/dL (32-36); MEAN CORPUSCULAR VOLUME 80 fL (80-99); MEAN PLATELET VOLUME 10.2 fL (9.0-12.2); MONOCYTES # (AUTO) 0.4 10^3/uL (0.0-1.0); MONOCYTES % (AUTO) 7 % (0-12); NEUTROPHILS % (AUTO) 66 % (42-75); PLATELET COUNT 330 10^3/uL (130-400)
[2020-04-14 11:33] LABS: ALANINE AMINOTRANSFERASE 9 U/L (0-55); ALBUMIN 3.8 GM/DL (3.2-4.5); ALKALINE PHOSPHATASE 81 U/L (40-136); BILIRUBIN,TOTAL 0.5 MG/DL (0.1-1.0); BUN/CREATININE RATIO 17; CALCIUM 9.5 MG/DL (8.5-10.1); CARBON DIOXIDE 25 MMOL/L (21-32); CHLORIDE 101 MMOL/L (98-107); CREATININE SERUM 0.81 MG/DL (0.60-1.30); GFR ESTIMATED > 60; GLUCOSE 98 MG/DL (70-105); POTASSIUM 4.2 MMOL/L (3.6-5.0); SODIUM 133 MMOL/L (135-145); TOTAL PROTEIN 6.4 GM/DL (6.4-8.2)
== END ==
LOC: EDSTATUS 01-14 12:41 → ONC 11:00
PROVIDERS: ATTEND Internal Medicine Hematology & Oncology
DX: C20 Malignant neoplasm of rectum (principal); D64.9 Anemia, unspecified; D50.0 Iron deficiency anemia secondary to blood loss (chronic); K43.9 Ventral hernia without obstruction or gangrene; J44.9 Chronic obstructive pulmonary disease, unspecified; I10 Essential (primary) hypertension; E78.5 Hyperlipidemia, unspecified; K21.9 Gastro-esophageal reflux disease without esophagitis
CPT/HCPCS: 80053; 82378; 82728; 83540; 85025; G0463; 99213

== ENCOUNTER → 2020-05-05 | Outpatient (CLI) | payer MEDICARE, MEDICAID ==
--- NOTE | 2020-05-05 15:24 | Diagnostic Imaging Report ---
PROCEDURE: US Bilateral lower extremity arterial. TECHNIQUE: Multiple Real-time grayscale images are obtained through both lower extremity arterial systems with color Doppler imaging and color Doppler spectral analysis. INDICATION: Peripheral arterial disease. FINDINGS: Right leg: There is normal high resistive waveform and velocity at the level of the common femoral artery. There is focal abrupt velocity acceleration and then deceleration at the distal third of the right SFA where the velocity transitions from 146 to 410 and then back down to 76 cm/s accompanied by a biphasic waveform. At the ankle, we could not identify flow in the posterior tibial; however, there is flow antegrade and biphasic at the dorsalis pedis. Left leg: There is mildly diminished resistance with a biphasic waveform at the otherwise patent common femoral and profunda. Similar to the right leg, there is velocity acceleration and deceleration at the distal third of the SFA where the rate transitions from 123 cm/s all the way up to 451 cm/s and then down to 59 cm/s at the popliteal accompanied by a reduction in waveform from triphasic to biphasic. In the ankle, there is antegrade biphasic flow in the dorsalis pedis and posterior tibialis. IMPRESSION: Bilateral hemodynamically significant distal SFA stenoses. Nondetectable flow in the right posterior tibial at the ankle. Dictated by: Dictated on workstation # [id number]
== END ==
LOC: RAD 10:47
PROVIDERS: ATTEND Internal Medicine
DX: I77.9 Disorder of arteries and arterioles, unspecified (principal)
CPT/HCPCS: 93925

== ENCOUNTER → 2020-05-06 | Outpatient (CLI) | payer MEDICARE, MEDICAID ==
[~2020-05-06] MED LIST changes: +BARIUM for suspension 96% w/w (Vanilla Silq Medium Density) PO ONE; +BARIUM for suspension 98% w/w (Vanilla Silq High Density) PO ONE
--- NOTE | 2020-05-06 14:58 | Diagnostic Imaging Report ---
INDICATION: Esophageal stricture and dysphagia. Patient ingested effervescent crystals as well as thin and thick barium and imaging of esophagus was performed in multiple obliquities. A total of 34 seconds of fluoroscopic time was utilized. No esophageal stricture or mass is identified. There is occasional tertiary contractions throughout the esophagus. No hiatal hernia was demonstrated. No significant gastroesophageal reflux was demonstrated. IMPRESSION: Mild generalized esophageal dysmotility. No stricture or mass is detected. Dictated by: Dictated on workstation # [id number]
== END ==
LOC: RAD 09:45
PROVIDERS: ATTEND Internal Medicine
DX: K22.8 Other specified diseases of esophagus (principal)
CPT/HCPCS: 74220

== ENCOUNTER → 2020-06-05 | Outpatient (CLI) | payer MEDICARE, MEDICAID ==
[~2020-06-05] MED LIST changes: -BARIUM for suspension 96% w/w (Vanilla Silq Medium Density) PO ONE; -BARIUM for suspension 98% w/w (Vanilla Silq High Density) PO ONE
--- NOTE | 2020-06-05 13:35 | Diagnostic Imaging Report ---
INDICATION: Fall 6 days ago. Pain EXAMINATION: Lumbosacral spine 06/05/2020. FINDINGS: 5 views of the lumbar spine. 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 Previous kyphoplasty is noted at the L5 with kyphoplasties also noted throughout the lower thoracic spine stable as well. There is a compression deformity at T11 stable from previous examination. A compression fracture at the L1 is also unchanged. No definite new compression fractures appreciated. There is marked osteopenia. There is diffuse degenerative disease throughout the facet joints throughout the spine. There is atherosclerotic disease. Postoperative changes noted throughout the abdomen and visualized pelvis. IMPRESSION: 1. Multilevel compression deformities similar to previous imaging. No definite new fractures seen but examination limited by the osteopenia. 2. Diffuse degenerative disease and scoliotic deformity. Dictated by: Dictated on workstation # [id number]
--- NOTE | 2020-06-05 16:06 | Diagnostic Imaging Report ---
INDICATION: LOW BACK PAIN, DIARRHEA, CANDIDIASIS, GENERALIZED EDEMA. TECHNIQUE: AP, Lateral and Swimmers imaging of the thoracic spine CORRELATION STUDY: Chest 10/14/2019 FINDINGS: Prior kyphoplasty changes with vertebral body augmentation at T8, T10 and T12. There is leftward curvature of the lower thoracic spine with rightward curvature the lumbar spine. There are additional compression deformities about the thoracic spine. Most pronounced at the T6, T9 and T11 levels. The age of these are indeterminate but appear to be likely stable from previous chest radiograph. Definitive acute fracture is not demonstrated. Generalized demineralization. Slight accentuated thoracic kyphosis. IMPRESSION: Multiple compression deformities including several with priori kyphoplasty change. Overall findings are generally stable. Definitive acute compression deformity does not appear to be suggested. Dictated by: Dictated on workstation # [id number]
== END ==
LOC: RAD 11:40
PROVIDERS: ATTEND Internal Medicine
DX: M43.8X4 Other specified deforming dorsopathies, thoracic region (principal); M41.86 Other forms of scoliosis, lumbar region; M47.816 Spondylosis without myelopathy or radiculopathy, lumbar region; R60.1 Generalized edema; B37.9 Candidiasis, unspecified; R19.7 Diarrhea, unspecified; M43.8X6 Other specified deforming dorsopathies, lumbar region; Z98.890 Other specified postprocedural states; W19.XXXA Unspecified fall, initial encounter
CPT/HCPCS: 72072; 72110; 87324; 87449; 87493

== ENCOUNTER → 2020-06-10 | Outpatient (CLI) | payer MEDICARE, MEDICAID ==
[~2020-06-10] MED LIST changes: +ALBU18HF2 INH; +BUSP5TAB59 PO; +LORA-404 PO; +METR-145 PO; +POTA10TA6 PO; +VANC125C5 PO
[2020-06-10 10:57] LABS: CREATININE SERUM 0.91 MG/DL (0.60-1.30)
== END ==
LOC: RAD 10:14
PROVIDERS: ATTEND Internal Medicine
DX: I73.9 Peripheral vascular disease, unspecified (principal)
CPT/HCPCS: 36415; 82565; 84520

== ENCOUNTER 2020-06-18 00:23 | Observation (INO) | payer MEDICARE, MEDICAID ==
[~2020-06-18] VITALS: Ht 152.4 cm; Wt 75.8 kg
[2020-06-18] VITALS (7 sets, daily range): BP systolic 107–140; BP diastolic 70–82
[~2020-06-18 00:23] MED LIST changes: -ALBU18HF2 INH; -BUSP5TAB59 PO; -LORA-404 PO; -METR-145 PO; -POTA10TA6 PO; -VANC125C5 PO
[2020-06-18] MEDS ORDERED: LACTATED RINGERS 1,000 ML IV ONE (00:30)
[2020-06-18] MEDS ORDERED: ONDANSETRON 4 MG/2 ML (SDV) Z0FRAN IVP ONE (00:30)
--- NOTE | 2020-06-18 00:47 | ED GI ---
General Chief Complaint: Abdominal/GI Problems Stated Complaint: DIARRHEA,VOMITING Source of Information: Patient, EMS, Old Records History of Present Illness Date Seen by Provider: Jun 18, 2020 Time Seen by Provider: 00:25 Initial Comments PT ARRIVES VIA POV FROM HOME PT LIVES AT HOME, WITH 24 HOUR CAREGIVERS PT STATES SHE HAS HAD NAUSEA/VOMITING/DIARRHEA/ABDOMINAL CRAMPING FOR THE LAST 6 DAYS HAD OUTPATIENT STOOL STUDIES DONE AND WAS DX WITH C. DIFFICILE, AND PRESCRIBED FLAGYL. HAS BEEN TAKING IT SINCE 06/10/20 AND TOOK HER LAST DOSE THIS MORNING ( 06/17/20) STATES SHE HAS BEEN HAVING DIARRHEA NON-STOP ALL DAY--HAS HAD AT LEAST 15 DIARRHEA STOOLS TODAY. NO BLACK/BLOODY/TARRY STOOLS STATES SHE CANNOT KEEP ANYTHING DOWN--HAS VOMITED BETWEEN 5 AND 10 TIMES TODAY, NO HEMATEMESIS OR COFFEE-GROUND EMESIS C/O GENERALIZED ABDOMINAL CRAMPING EMS REPORT TEMP OF 100.5--PT WAS NOT AWARE SHE HAD FEVER, HAS NOT CHECKED TEMP AT HOME ( TEMP CHECKED MULTIPLE TIMES HERE WITH MULTIPLE DEVICES AND NO FEVER NOTED HERE ) STATES SHE IS URINATING "ALL DAY" BECAUSE SHE TAKES LASIX C/O GENERALIZED WEAKNESS PT HAD RIGHT HEMICOLECTOMY FOR COLON CANCER 09/12/[address] NELSON. HAS NOT RECEIVED CHEMOTHERAPY OR RADIATION PT HAD COVID-19 IN JANUARY, AND HAS RECEIVED BOTH COVID-19 VACCINATIONS SINCE THEN--MODERNA VACCINE, LAST ONE 04/15/20 PT DID NOT REQUIRE ANY TREATMENT OR HOSPITALIZATION WHEN SHE HAD COVID-19 PT HAS NO URI OR RESPIRATORY COMPLAINTS NO LOSS OF TASTE OR SMELL NO SORE THROAT NO HEADACHE NO BODY ACHES PT LATER STATES THAT ONE OF HER CAREGIVERS HAS BEEN "SICK" THE LAST FEW DAYS--DID NOT ELABORATE ON SYMPTOMS PT WITH MULTIPLE VISITS FOR VARIOUS COMPLAINTS, LAST VISIT HERE 04/14/20 FOR RESTLESS LEG SYNDROME SYMPTOMS PCP: DR. FOFANA Allergies and Home Medications Allergies Coded Allergies: ciprofloxacin (Verified Allergy, Intermediate, SKIN BURNING, 09/09/19) sulfamethoxazole (Verified Allergy, Intermediate, Vomiting, 09/09/19) trimethoprim (Verified Allergy, Intermediate, Vomiting, 09/09/19) erythromycin base (Verified Allergy, Unknown, 09/09/19) quinine (Verified Allergy, Unknown, 09/09/19) cephalexin (Verified Adverse Reaction, Severe, CONFUSION, DIZZINESS, 03/04/20) Home Medications Albuterol Sulfate 2.5 Mg/0.5 Ml Vial.neb, 2.5 MG INH Q4H PRN for WHEEZING, (Reported) Last Action: Reviewed Albuterol Sulfate 18 Gm Hfa.aer.ad, 2 PUFF INH QID PRN for SHORTNESS OF BREATH, (Reported) Last Action: Reviewed Aspirin 81 Mg Tablet.dr, 81 MG PO DAILY, (Reported) Last Action: Reviewed Buspirone HCl 5 Mg Tablet, 5 MG PO BID, (Reported) Last Action: Reviewed Clopidogrel Bisulfate 75 Mg Tablet, 75 MG PO DAILY, (Reported) Last Action: Reviewed Duloxetine HCl 60 Mg Capsule.dr, 60 MG PO DAILY, (Reported) Last Action: Reviewed Ezetimibe 10 Mg Tablet, 10 MG PO DAILY, (Reported) Last Action: Reviewed Furosemide 20 Mg Tablet, 20 MG PO DAILY, (Reported) Last Action: Reviewed Levothyroxine Sodium 112 Mcg Tablet, 112 MCG PO DAILY, (Reported) LAST FILLED 02-06-2021 #90/90 DAY SUPPLY Last Action: Reviewed Loperamide HCl 2 Mg Capsule, 2-4 MG PO UD PRN for DIARRHEA, (Reported) Last Action: Reviewed Lorazepam 1 Mg Tablet, 1 MG PO TID PRN for ANXIETY, (Reported) Last Action: Reviewed Metoprolol Succinate 50 Mg Tab.er.24h, 50 MG PO DAILY, (Reported) Last Action: Reviewed Metronidazole 500 Mg Tablet, 500 MG PO BID, (Reported) FILLED 06-09-2020 #20/10 DAY SUPPLY Last Action: Reviewed Multivitamin with Minerals 1 Each Tablet, 1 EACH PO DAILY, (Reported) Last Action: Reviewed Nitroglycerin 0.4 Mg Tab.subl, 0.4 MG SL UD PRN for CHEST PAIN, (Reported) Last Action: Reviewed Oxycodone HCl 10 Mg Tablet, 10 MG PO Q12H PRN for PAIN-SEVERE (8-10), (Reported) Last Action: Reviewed Pantoprazole Sodium 40 Mg Tablet.dr, 40 MG PO DAILY, (Reported) Last Action: Reviewed Potassium Chloride 10 Meq Tablet.er, 10 MEQ PO DAILY, (Reported) Last Action: Reviewed Pregabalin 150 Mg Capsule, 150 MG PO BID PRN for PAIN-BREAKTHROUGH, (Reported) Last Action: Reviewed Ropinirole HCl 4 Mg Tablet, 8 MG PO HS, (Reported) TAKES 2 (4MG) TABS Last Action: Reviewed Sucralfate 1 Gm/10 Ml Oral.susp, 10 ML PO QIDACHS PRN for ULCER, (Reported) Last Action: Reviewed Temazepam 15 Mg Capsule, 30 MG PO HS, (Reported) TAKES 2 (15MG) CAPS Last Action: Reviewed Patient Home Medication List Home Medication List Reviewed: Yes Review of Systems Review of Systems Constitutional: see HPI Respiratory: No Symptoms Reported Cardiovascular: No Symptoms Reported Gastrointestinal: See HPI, Abdominal Pain, Diarrhea, Nausea, Poor Appetite, Poor Fluid Intake, Vomiting Genitourinary: See HPI, Frequency Musculoskeletal: no symptoms reported Skin: no symptoms reported Psychiatric/Neurological: No Symptoms Reported Endocrine: No Symptoms Reported Hematologic/Lymphatic: No Symptoms Reported Other Comments PT STATES SHE HAS AN APPOINTMENT NEXT MONDAY WITH DR. 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 Past Sdocraj-Nvzogm-Rwlhoh Hx Past Med/Social Hx: Reviewed and Corrections made Patient Social History Drug of Choice: denies Type Used: Cigarettes Former Smoker, Quit: Mar 26, 1996 2nd Hand Smoke Exposure: No Recent Hopitalizations: No Immunizations Up To Date Tetanus Booster (TDap): Unknown PED Vaccines UTD: No Date of Pneumonia Vaccine: Aug 20, 2017 Date of Influenza Vaccine: Nov 27, 2019 Seasonal Allergies Seasonal Allergies: Yes Past Medical History Surgeries: Yes (R LEG HEATHER/HIP PIN; BACK-KYPHOPLASTY X3;HIATAL HERNIA X3;COLOSTOMY/REVERSAL) Abdominal, Appendectomy, Bladder Surgery, Bowel Surgery, Cardiac, Coronary Stent, Hysterectomy, Oophorectomy, Orthopedic, Tonsillectomy Respiratory: Yes (O2 AT 3L/NC CONTINUOUSLY) Pulmonary Embolism, Sleep Apnea, COPD Currently Using CPAP: No Currently Using BIPAP: No Cardiac: Yes (CARDIAC CATH WITH STENTS X 2;) Chronic Edema/Swelling, Coronary Artery Disease, Deep Vein Thrombosis, Heart Attack, High Cholesterol, Hypertension, Peripheral Vascular Neurological: Yes (COGNITIVE IMPAIRMENT/POOR MEMORY) Vertigo 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 Disorders: No 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: Hysterectomy, Menopausal Sexually Transmitted Disease: No HIV/AIDS: No Genitourinary: Yes (INCONTINENCE) Kidney Infection, Bladder Infection, UTI-Chronic Gastrointestinal: Yes (COLON CANCER DX 08/2019) Abdominal Hernia, Gastroesophageal Reflux, Diverticulosis, Esophagitis Musculoskeletal: Yes (FALLS, USES A WALKER;COMPRESSION FRACTURES; RIGHT HIP FRACTURE) Degenerate Disk Disease, Osteoporosis, Arthritis, Chronic Back Pain, Fractures Endocrine: Yes Hypothyroidsim HEENT: Yes ( DENTURES) Dysphagia Loss of Vision: Denies Hearing Impairment: Denies Cancer: Yes Colon Did You Recieve Any Treatments: Yes What Type of Treatment Did You: Surgical Intervention COLON CANCER DX 08/2019--S/P RIGHT HEMICOLECTOMY AND SMALL BOWEL RESECTION 09/12/19 NO CHEMO OR RADIATION Psychosocial: Yes (RX DRUG ABUSE) Anxiety, Depression Integumentary: No Blood Disorders: Yes (ANEMIA) Adverse Reaction/Blood Tranf: No (HAS HAD BLOOD WITH NO REACTION) Family Medical History Family history: Hypertension G8 BROTHER Myocardial infarction 19 MOTHER G8 BROTHER SOCIAL HISTORY: -ETOH--OCCASIONAL USE IN PAST -DRUGS--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 GUZMAN IN [place] -RIGHT HEMICOLECTOMY/SMALL BOWEL RESECTION/LYSIS OF ADHESIONS/MULTIPLE FOREIGN BODIES REMOVED ( CORKSCREW TACKS FROM PREVIOUS HERNIA MESH ) 09/12/[address] NELSON -CYSTOSCOPY WITH BOTOX INJECTIONS 07/09/[address] MCDONALD. -MULTIPLE HERNIA REPAIRS WITH MESH -MULTIPLE EGD'S/COLONOSCOPIES/DILATIONS OF ESOPHAGEAL STRICTURES -CARDIAC CATHS--STENTS X 2 -KYPHOPLASTIES -APPENDECTOMY -RIGHT HIP FRACTURE ORIF WITH PIN IN HIP AND HEATHER IN [place]EM[place] 03/2016 -HYSTERECTOMY/BILATERAL SALPINGO-OOPHORECTOMY -TONSILLECTOMY ADDITIONAL PAST MEDICAL HISTORY: -HAS 24 HOUR IN-HOME CARETAKERS -FREQUENT FALLS--USES A WALKER -RESTLESS LEG SYNDROME -RIGHT PALUMBO'S CYST -MULTIPLE COMPRESSION FRACTURES WITH KYPHOPLASTIES -CHRONIC DYSPHAGIA -CHRONIC ABDOMINAL PAIN COMPLAINTS -HAS Physical Exam Vital Signs Vital Signs - First Documented 06/18/20 00:25 Temp 36.8 Pulse 71 Resp 18 B/P (MAP) 129/79 (96) Pulse Ox 98 O2 Delivery Nasal Cannula O2 Flow Rate 3.00 Capillary Refill : Height/Weight/BMI Height: 5'2.00" Weight: 163lbs. 0.0oz. 73.997064kh; 31.00 BMI Method:Stated General Appearance: no apparent distress, obese, other (BUT HAS SOME GENERALIZED WEAKNESS) HEENT: other (ORAL MUCOSA MILDLY DRY) Respiratory: normal breath sounds, no respiratory distress, no accessory muscle use Cardiovascular: regular rate, rhythm, no murmur Gastrointestinal: soft, abnormal bowel sounds (DECREASED); No distended, No guarding, No rebound; tenderness (DIFFUSE TENDERNESS) Extremities: non-tender, no pedal edema Back: no CVA tenderness Neurologic/Psychiatric: no motor/sensory deficits, alert, normal mood/affect, oriented x 3 Skin: normal color, warm/dry Focused Exam Lactate Level 06/18/20 00:40: Lactic Acid Level 1.96 Lactic Acid Level Laboratory Tests Test 06/18/20 00:40 Lactic Acid Level 1.96 MMOL/L (0.50-2.00) Progress/Results/Core Measures Results/Orders Lab Results Laboratory Tests Test 06/18/20 00:40 06/18/20 00:48 Range/Units White Blood Count 10.8 4.3-11.0 10^3/uL Red Blood Count 5.93 H 3.80-5.11 10^6/uL Hemoglobin 15.5 11.5-16.0 g/dL Hematocrit 51 35-52 % Mean Corpuscular Volume 86 80-99 fL Mean Corpuscular Hemoglobin 26 25-34 pg Mean Corpuscular Hemoglobin Concent 30 L 32-36 g/dL Red Cell Distribution Width 20.3 H 10.0-14.5 % Platelet Count 303 130-400 10^3/uL Mean Platelet Volume 10.9 9.0-12.2 fL Immature Granulocyte % (Auto) 1 % Neutrophils (%) (Auto) 86 H 42-75 % Lymphocytes (%) (Auto) 7 L 12-44 % Monocytes (%) (Auto) 3 0-12 % Eosinophils (%) (Auto) 3 0-10 % Basophils (%) (Auto) 0 0-10 % Neutrophils # (Auto) 9.3 H 1.8-7.8 10^3/uL Lymphocytes # (Auto) 0.8 L 1.0-4.0 10^3/uL Monocytes # (Auto) 0.3 0.0-1.0 10^3/uL Eosinophils # (Auto) 0.3 0.0-0.3 10^3/uL Basophils # (Auto) 0.0 0.0-0.1 10^3/uL Immature Granulocyte # (Auto) 0.1 0.0-0.1 10^3/uL Neutrophils % (Manual) 82 % Lymphocytes % (Manual) 11 % Monocytes % (Manual) 4 % Eosinophils % (Manual) 3 % Blood Morphology Comment NORMAL Erythrocyte Sedimentation Rate 1 0-30 MM/HR Prothrombin Time 12.8 12.2-14.7 SEC INR Comment 0.9 0.8-1.4 Activated Partial Thromboplast Time 27 24-35 SEC Sodium Level 137 135-145 MMOL/L Potassium Level 4.1 3.6-5.0 MMOL/L Chloride Level 101 98-107 MMOL/L Carbon Dioxide Level 22 21-32 MMOL/L Anion Gap 14 5-14 MMOL/L Blood Urea Nitrogen 12 7-18 MG/DL Creatinine 1.00 0.60-1.30 MG/DL Estimat Glomerular Filtration Rate 53 BUN/Creatinine Ratio 12 Glucose Level 119 H 70-105 MG/DL Lactic Acid Level 1.96 0.50-2.00 MMOL/L Calcium Level 10.4 H 8.5-10.1 MG/DL Corrected Calcium 8.5-10.1 MG/DL Magnesium Level 1.7 1.6-2.4 MG/DL Total Bilirubin 0.9 0.1-1.0 MG/DL Aspartate Amino Transf (AST/SGOT) 23 5-34 U/L Alanine Aminotransferase (ALT/SGPT) 13 0-55 U/L Alkaline Phosphatase 99 40-136 U/L Lactate Dehydrogenase 278 H 125-220 U/L C-Reactive Protein High Sensitivity 0.39 0.00-0.50 MG/DL Total Protein 8.0 6.4-8.2 GM/DL Albumin 4.6 H 3.2-4.5 GM/DL Amylase Level 22 L 25-125 U/L Lipase 4 L 8-78 U/L Procalcitonin 0.08 <0.10 NG/ML Coronavirus 2019 ([facility]) Positive Not Detecte Urine Color BROWN H Urine Clarity SL CLOUDY Urine pH 5.5 5-9 Urine Specific [place] 1.025 H 1.016-1.022 Urine Protein 1+ H NEGATIVE Urine Glucose (UA) NEGATIVE NEGATIVE Urine Ketones TRACE H NEGATIVE Urine Nitrite POSITIVE H NEGATIVE Urine Bilirubin 2+ H NEGATIVE Urine Urobilinogen 1.0 < = 1.0 MG/DL Urine Leukocyte Esterase TRACE H NEGATIVE Urine RBC (Auto) NEGATIVE NEGATIVE Urine RBC NONE /HPF Urine WBC 10-25 H /HPF Urine Squamous Epithelial Cells 2-5 /HPF Urine Crystals NONE /LPF Urine Bacteria LARGE H /HPF Urine Casts NONE /LPF Urine Mucus SMALL H /LPF Urine Culture Indicated YES Micro Results Microbiology 06/18/20 Urine Culture - Preliminary, Resulted Escherichia coli 06/18/20 Blood Culture - Preliminary, Resulted No growth My Orders Orders - BETTY MAZARIEGOS DO Ed Iv/Invasive Line Start (06/18/20:) Monitor-Rhythm Ecg Trace Only (06/18/20) Amylase (06/18/20) Cbc With Automated Diff (06/18/20) Comprehensive Metabolic Panel (06/18/20) Lipase (06/18/20:) Magnesium (06/18/20) Protime With Inr (06/18/20) Partial Thromboplastin Time (06/18/20) Ua Culture If Indicated (06/18/20:) Ed Iv/Invasive Line Start (06/18/20:) Lactated Ringers (Lr 1000 Ml Iv Solution (06/18/20:30) Ondansetron Injection (Zofran Injectio (06/18/20:30) Straight Cath For Spec.-Adult (06/18/20:) Lactic Acid Analyzer (06/18/20:) Procalcitonin (Pct) (06/18/20:30) Blood Culture (06/18/20:30) Hs C Reactive Protein (06/18/20:30) Erythrocyte Sedimentation Rate (06/18/20:30) LDH (06/18/20:30) Covid 19 Inhouse Test (06/18/20:30) Ct Abdomen/Pelvis Wo (06/18/20 00:48) Chest 1 View, Ap/Pa Only (06/18/20 00:48) Manual Differential (06/18/20 00:40) Urine Culture (06/18/20 00:48) Fentanyl Inj (Sublimaze Injection) (06/18/20 01:15) Medications Given in ED Vital Signs/I&O 06/18/20 00:25 Temp 36.8 Pulse 71 Resp 18 B/P (MAP) 129/79 (96) Pulse Ox 98 O2 Delivery Nasal Cannula O2 Flow Rate 3.00 Progress Progress Note : Progress Note VERY DIFFICULT IV ACCESS GIVEN IV FLUIDS, ZOFRAN FOR NAUSEA, FENTANYL FOR PAIN NO DETERIORATION IN PT'S CONDITION DURING ER STAY Diagnostic Imaging Comments CXR== CT ABDOMEN/PELVIS--NO ACUTE PROCESS, PER [facility] VIA FAX AT 0133 Reviewed: Reviewed by Me Departure Communication (Admissions) 0135--SPOKE WITH DR. ABREU, HOSPITALIST, ACCEPTS PT FOR ADMIT Impression Primary Impression: Clostridium difficile enterocolitis Additional Impressions: Urinary tract infection COLON CANCER S/P COLON RESECTION History of infection due to ESBL Escherichia coli Chronic respiratory failure with hypoxia COVID-19 virus infection Disposition: ADMITTED INPATIENT Condition: Stable Admissions Decision to Admit Reason: Admit from ER (General) Decision to Admit/Date: Jun 18, 2020 Time/Decision to Admit Time: 01:35 Departure-Patient Inst. Referrals: TORIBIO FFOANA DO (PCP/Family) Primary Care Physician BETTY MAZARIEGOS DO Jun 18, 2020 00:47
[2020-06-18 00:51] LABS: BASOPHILS % (AUTO) 0 % (0-10); EOSINOPHILS # (AUTO) 0.3 10^3/uL (0.0-0.3); EOSINOPHILS % (AUTO) 3 % (0-10); HEMATOCRIT 51 % (35-52); HEMOGLOBIN 15.5 g/dL (11.5-16.0); LYMPHOCYTES # (AUTO) 0.8 10^3/uL (1.0-4.0); LYMPHOCYTES % (AUTO) 7 % (12-44); MEAN CORPUSCULAR HEMOGLOBIN 26 pg (25-34); MEAN CORPUSCULAR HGB CONC 30 g/dL (32-36); MEAN CORPUSCULAR VOLUME 86 fL (80-99); MEAN PLATELET VOLUME 10.9 fL (9.0-12.2); MONOCYTES # (AUTO) 0.3 10^3/uL (0.0-1.0); MONOCYTES % (AUTO) 3 % (0-12); NEUTROPHILS # (AUTO) 9.3 10^3/uL (1.8-7.8); NEUTROPHILS % (AUTO) 86 % (42-75); PLATELET COUNT 303 10^3/uL (130-400); WHITE BLOOD COUNT 10.8 10^3/uL (4.3-11.0)
[2020-06-18 00:55] LABS: BILIRUBIN,URINE 2+ (NEGATIVE); CLARITY,URINE SL CLOUDY; COLOR,URINE BROWN; GLUCOSE, URINE (UA) NEGATIVE (NEGATIVE); KETONES,URINE TRACE (NEGATIVE); LEUKOCYTE ESTERASE ,URINE TRACE (NEGATIVE); NITRITE,URINE POSITIVE (NEGATIVE); PH,URINE 5.5 (5-9); PROTEIN,URINE 1+ (NEGATIVE)
[2020-06-18 01:05] LABS: BACTERIA,URINE LARGE /HPF
[2020-06-18 01:07] LABS: INR 0.9 (0.8-1.4); PROTHROMBIN TIME PATIENT 12.8 SEC (12.2-14.7)
[2020-06-18 01:14] LABS: EOSINOPHILS % (MANUAL) 3 %; LYMPHOCYTES % (MANUAL) 11 %; MONOCYTES % (MANUAL) 4 %; NEUTROPHILS % (MANUAL) 82 %; RBC MORPH NORMAL
[2020-06-18] MEDS ORDERED: fentaNYL INJ 100 MCG/2 ML AMP IVP ONE (01:15)
[2020-06-18 01:18] LABS: ERYTHROCYTE SEDIMENTATION RATE 1 MM/HR (0-30)
[2020-06-18 01:20] LABS: ALANINE AMINOTRANSFERASE 13 U/L (0-55); ALBUMIN 4.6 GM/DL (3.2-4.5); ALKALINE PHOSPHATASE 99 U/L (40-136); AMYLASE 22 U/L (25-125); BILIRUBIN,TOTAL 0.9 MG/DL (0.1-1.0); BUN/CREATININE RATIO 12; CALCIUM 10.4 MG/DL (8.5-10.1); CARBON DIOXIDE 22 MMOL/L (21-32); CHLORIDE 101 MMOL/L (98-107); GFR ESTIMATED 53; GLUCOSE 119 MG/DL (70-105); LIPASE 4 U/L (8-78); MAGNESIUM 1.7 MG/DL (1.6-2.4); POTASSIUM 4.1 MMOL/L (3.6-5.0); SODIUM 137 MMOL/L (135-145)
[2020-06-18] MEDS ORDERED: MEROPENEM 500 MG in WATER (STERILE) FOR INJECTION 10 ML IV ONE (01:45)
[2020-06-18] MEDS ORDERED: D5 1/2 NS W/KCL 20 MEQ/L 1,000 ML IV ONE (02:34)
[2020-06-18] MEDS: D5 1/2 NS W/KCL 20 MEQ/L 1,000 ML IV SCH ×3 (02:45→10:50)
[2020-06-18] MEDS ORDERED: ACETAMINOPHEN 650 MG SUPP (TYLENOL) PR PRN (03:00)
[2020-06-18] MEDS ORDERED: metroNIDAZOLE 500 MG/100 ML IVPB (PRE-MIX) IV SCH (04:00)
[2020-06-18] MEDS: fentaNYL INJ 100 MCG/2 ML AMP IV PRN (05:12)
[2020-06-18 05:41] LABS: BASOPHILS % (AUTO) 0 % (0-10); HEMOGLOBIN 12.2 g/dL (11.5-16.0); MEAN PLATELET VOLUME 10.8 fL (9.0-12.2)
[2020-06-18 05:43] LABS: EOSINOPHILS # (AUTO) 0.3 10^3/uL (0.0-0.3); EOSINOPHILS % (AUTO) 3 % (0-10); HEMATOCRIT 40 % (35-52); LYMPHOCYTES # (AUTO) 0.8 10^3/uL (1.0-4.0); LYMPHOCYTES % (AUTO) 10 % (12-44); MEAN CORPUSCULAR HEMOGLOBIN 26 pg (25-34); MEAN CORPUSCULAR HGB CONC 30 g/dL (32-36); MEAN CORPUSCULAR VOLUME 87 fL (80-99); MONOCYTES # (AUTO) 0.2 10^3/uL (0.0-1.0); MONOCYTES % (AUTO) 3 % (0-12); NEUTROPHILS # (AUTO) 6.2 10^3/uL (1.8-7.8); NEUTROPHILS % (AUTO) 82 % (42-75); PLATELET COUNT 220 10^3/uL (130-400); WHITE BLOOD COUNT 7.6 10^3/uL (4.3-11.0)
[2020-06-18 06:06] LABS: ALANINE AMINOTRANSFERASE 10 U/L (0-55); ALBUMIN 3.4 GM/DL (3.2-4.5); ALKALINE PHOSPHATASE 72 U/L (40-136); BILIRUBIN,TOTAL 0.6 MG/DL (0.1-1.0); BUN/CREATININE RATIO 14; CALCIUM 8.8 MG/DL (8.5-10.1); CARBON DIOXIDE 25 MMOL/L (21-32); CHLORIDE 105 MMOL/L (98-107); GFR ESTIMATED > 60; GLUCOSE 132 MG/DL (70-105); POTASSIUM 3.6 MMOL/L (3.6-5.0); SODIUM 136 MMOL/L (135-145); TOTAL PROTEIN 5.6 GM/DL (6.4-8.2)
--- NOTE | 2020-06-18 06:24 | Diagnostic Imaging Report ---
EXAMINATION: CT abdomen and pelvis without contrast. TECHNIQUE: Multiple contiguous axial images were obtained through the abdomen and pelvis without the use of intravenous contrast. All CT scans use one or more of the following dose optimizing techniques: automated exposure control, MA and/or KvP adjustment based on patient size and exam type or iterative reconstruction. HISTORY: C. Difficile infection, abdominal pain. COMPARISON: CT chest, abdomen and pelvis 03/04/2020 FINDINGS: Lung bases: Bibasilar dependent atelectasis. Solid organs: The liver is normal. The gallbladder is normal. There is no biliary ductal dilation. There is mild atrophy of the pancreas without ductal dilatation. Spleen is normal. Adrenal glands are normal. The kidneys are normal without visualized calculus or hydronephrosis. Bowel: The stomach and small bowel are normal without obstruction. Surgical changes of the colon. No bowel obstruction. Peritoneum: There is no intraperitoneal free fluid or free air. No suspicious lymphadenopathy. Vasculature: Calcification of the aorta without aneurysm. Musculoskeletal: Multilevel degenerative changes of the spine. Multilevel compression deformities throughout the thoracic and lumbar spine with multilevel vertebral augmentation. No acute compression fracture or suspicious osseous lesion. Surgical changes of the right femur. There is an anterior ventral abdominal hernia containing fat and loops of small bowel without obstruction. Pelvis: The uterus is surgically absent. No adnexal mass. The urinary bladder is decompressed with Lee catheter. IMPRESSION: 1. No acute abnormality in the abdomen or pelvis. 2. Agree with preliminary interpretation. Dictated by: Dictated on workstation # [id number]
--- NOTE | 2020-06-18 08:19 | Diagnostic Imaging Report ---
EXAMINATION: Chest radiograph, portable AP view. DATE: 06/18/2020 1:14 AM INDICATION: 80-year-old female, fever. Nausea and vomiting. Diagnosed with COVID 19 infection on June 12, 2020. COMPARISON: February 04, 2020. FINDINGS: Heart size and mediastinal contours are unchanged. There are prior kyphoplasty changes. There is high attenuation material projecting the left lateral aspect of the thoracic spine which likely relates to abnormal position of kyphoplasty material. This is unchanged There is no identified pneumothorax. There is no large pleural effusion. There is no identified focal airspace consolidation. IMPRESSION: No identified interval acute cardiopulmonary abnormality. Dictated by: Dictated on workstation # [id number]
[2020-06-18] MEDS: PANTOPRAZOLE 40 MG (PROTONIX) VIAL IV SCH (09:48)
[2020-06-18] MEDS: VANCOMYCIN 125 MG CAPSULE PO SCH ×4 (09:59→23:30)
[2020-06-18] MEDS: MEROPENEM 500 MG/SWFI 10 ML IV PUSH IV SCH ×4 (10:00→17:47)
--- NOTE | 2020-06-18 10:29 | Consultation - Surgery ---
History of Present Illness History of Present Illness Patient Consulted On(chris/time) 06/18/20 10:23 Date Seen by Provider: Jun 18, 2020 Time Seen by Provider: 09:57 History of Present Illness Surgery asked to consult regarding N/V. HPI per ED: PT ARRIVES VIA POV FROM HOME, PT LIVES AT HOME, WITH 24 HOUR CAREGIVERS, PT STATES SHE HAS HAD NAUSEA/VOMITING/DIARRHEA/ABDOMINAL CRAMPING FOR THE LAST 6 DAYS HAD OUTPATIENT STOOL STUDIES DONE AND WAS DX WITH C. DIFFICILE, AND PRESCRIBED FLAGYL. HAS BEEN TAKING IT SINCE 06/10/20 AND TOOK HER LAST DOSE THIS MORNING ( 06/17/20) STATES SHE HAS BEEN HAVING DIARRHEA NON-STOP ALL DAY--HAS HAD AT LEAST 15 DIARRHEA STOOLS TODAY. NO BLACK/BLOODY/TARRY STOOLS STATES SHE CANNOT KEEP ANYTHING DOWN--HAS VOMITED BETWEEN 5 AND 10 TIMES TODAY, NO HEMATEMESIS OR COFFEE-GROUND EMESIS, C/O GENERALIZED ABDOMINAL CRAMPING EMS REPORT TEMP OF 100.5--PT WAS NOT AWARE SHE HAD FEVER, HAS NOT CHECKED TEMP AT HOME ( TEMP CHECKED MULTIPLE TIMES HERE WITH MULTIPLE DEVICES AND NO FEVER NOTED HERE ) STATES SHE IS URINATING "ALL DAY" BECAUSE SHE TAKES LASIX, C/O GENERALIZED WEAKNESS PT HAD RIGHT HEMICOLECTOMY FOR COLON CANCER 09/12/[address] NELSON. HAS NOT RECEIVED CHEMOTHERAPY OR RADIATION PT HAD COVID-19 IN JANUARY, AND HAS RECEIVED BOTH COVID-19 VACCINATIONS SINCE THEN--MODERNA VACCINE, LAST ONE 04/15/20 PT DID NOT REQUIRE ANY TREATMENT OR HOSPITALIZATION WHEN SHE HAD COVID-19, PT HAS NO URI OR RESPIRATORY COMPLAINTS NO LOSS OF TASTE OR SMELL, NO SORE THROAT, NO HEADACHE, NO BODY ACHES PT LATER STATES THAT ONE OF HER CAREGIVERS HAS BEEN "SICK" THE LAST FEW DAYS--DID NOT ELABORATE ON SYMPTOMS When I saw pt she was in bed comfortable, states her nausea is better. Her main complaint to me was that "my hernias are getting worse". Very minimal abdominal pain and some weakness. Allergies and Home Medications Allergies Coded Allergies: ciprofloxacin (Verified Allergy, Intermediate, SKIN BURNING, 09/09/19) sulfamethoxazole (Verified Allergy, Intermediate, Vomiting, 09/09/19) trimethoprim (Verified Allergy, Intermediate, Vomiting, 09/09/19) erythromycin base (Verified Allergy, Unknown, 09/09/19) quinine (Verified Allergy, Unknown, 09/09/19) cephalexin (Verified Adverse Reaction, Severe, CONFUSION, DIZZINESS, 03/04/20) Home Medications Albuterol Sulfate 2.5 Mg/0.5 Ml Vial.neb, 2.5 MG INH Q4H PRN for WHEEZING, (Reported) Last Action: Held Albuterol Sulfate 1 Puff Puff, 2 PUFF IH Q4H PRN for SHORTNESS OF BREATH, (Reported) Amoxicillin/Potassium Clav 1 Each Tablet, 1 EACH PO BID Prescribed by: IKE FRANK on 09/26/19 1126 Biotin 10 Mg Tablet, 10 MG PO DAILY, (Reported) Cefdinir 300 Mg Capsule, 300 MG PO BID Prescribed by: RADHA RIVAS on 03/04/202037 Cyclosporine 1 Each Droperette, 1 DROP OU BID, (Reported) Duloxetine HCl 60 Mg Capsule.dr, 60 MG PO DAILY, (Reported) Eszopiclone 2 Mg Tablet, 2 MG PO HS, (Reported) Ezetimibe 10 Mg Tablet, 10 MG PO DAILY, (Reported) Fluticasone Propionate 9.9 Ml [place].susp, 2 SPRAY NS DAILY PRN for CONGESTION, (Reported) 2 SPRAYS PER NOSTRIL DAILY X 2 DAYS THEN 1 SPRAY DAILY Gabapentin 300 Mg Capsule, 300 MG PO BID, (Reported) Levothyroxine Sodium 112 Mcg Tablet, 112 MCG PO DAILY, (Reported) Lorazepam 1 Mg Tablet, 1 MG PO TID PRN for ANXIETY, (Reported) Metoprolol Succinate 50 Mg Tab.er.24h, 50 MG PO DAILY, (Reported) Nitroglycerin 0.4 Mg Tab.subl, 0.4 MG SL UD PRN for CHEST PAIN, (Reported) Ondansetron 4 Mg Tab.rapdis, 4 MG SL Q4H Prescribed by: RADHA RIVAS on 02/04/20 153 Pantoprazole Sodium 40 Mg Tablet.dr, 40 MG PO BID, (Reported) Pregabalin 150 Mg Capsule, 150 MG PO BID, (Reported) Ropinirole HCl 4 Mg Tablet, 8 MG PO HS, (Reported) TAKES 2 (4MG) TABS TO EQUAL 8MG AT BEDTIME Sucralfate 1 Gm/10 Ml Oral.susp, 10 ML PO QIDACHS PRN for ULCER, (Reported) Patient Home Medication List Home Medication List Reviewed: Yes Past Bizwiew-Kpjcdy-Dfnaeq Hx Patient Social History Drug of Choice: denies Smoking Status: Former Smoker Former Smoker, Quit: Mar 26, 1996 Type Used: Cigarettes 2nd Hand Smoke Exposure: No Recent Hopitalizations: No Alcohol Use?: No Have you traveled recently?: No Immunizations Up To Date Tetanus Booster (TDap): Unknown PED Vaccines UTD: No Date of Pneumonia Vaccine: Aug 20, 2017 Date of Influenza Vaccine: Nov 27, 2019 Seasonal Allergies Seasonal Allergies: Yes Surgeries History of Surgeries: Yes (R LEG SUHDAKAR/HIP PIN; BACK-KYPHOPLASTY X3;HIATAL HERNIA X3;COLOSTOMY/REVERSAL) Surgeries: Abdominal, Appendectomy, Bladder Surgery, Bowel Surgery, Cardiac, Coronary Stent, Hysterectomy, Oophorectomy, Orthopedic, Tonsillectomy Respiratory History of Respiratory Disorde: Yes (O2 AT 3L/NC CONTINUOUSLY) Respiratory Disorders: Pulmonary Embolism, Sleep Apnea, COPD Cardiovascular History of Cardiac Disorders: Yes (CARDIAC CATH WITH STENTS X 2;) Cardiac Disorders: Chronic Edema/Swelling, Coronary Artery Disease, Deep Vein Thrombosis, Heart Attack, High Cholesterol, Hypertension, Peripheral Vascular Neurological History of Neurological Disord: Yes (COGNITIVE IMPAIRMENT/POOR MEMORY) Neurological Disorders: Vertigo 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 System Hx 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 Disorders: No Sexually Transmitted Disease: No HIV/AIDS: No 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 History: Hysterectomy, Menopausal Genitourinary History of Genitourinary Disor: Yes (INCONTINENCE) Genitourinary Disorders: Kidney Infection, Bladder Infection, UTI-Chronic Gastrointestinal History of Gastrointestinal Di: Yes (COLON CANCER DX 08/2019) Gastrointestinal Disorders: Abdominal Hernia, Gastroesophageal Reflux, Diverticulosis, Esophagitis Musculoskeletal History of Musculoskeletal Dis: Yes (FALLS, USES A WALKER;COMPRESSION FRACTURES; RIGHT HIP FRACTURE) Musculoskeletal Disorders: Degenerate Disk Disease, Osteoporosis, Arthritis, Chronic Back Pain, Fractures Endocrine History of Endocrine Disorders: Yes Endocrine Disorders: Hypothyroidsim HEENT History of HEENT Disorders: Yes ( DENTURES) HEENT Disorders: Dysphagia Loss of Vision: Denies Hearing Impairment: Denies Cancer History of Cancer: Yes Cancer: Colon Psychosocial History of Psychiatric Problem: Yes (RX DRUG ABUSE) Behavioral Health Disorders: Anxiety, Depression Integumentary History of Skin or Integumenta: No Blood Transfusions History of Blood Disorders: Yes (ANEMIA) Adverse Reaction to a Blood Tr: No (HAS HAD BLOOD WITH NO REACTION) Family Medical History Significant Family History: Heart Disease, Hypertension Family Medial History: Family history: Hypertension G8 BROTHER Myocardial infarction 19 MOTHER G8 BROTHER Review of Systems-General Constitutional: fever, malaise, weakness EENTM: No blurred vision, No double vision, No epistaxis, No throat pain Respiratory: No cough, No dyspnea on exertion, No hemoptysis, No short of breath Cardiovascular: No chest pain; Hx of Intervention; No palpitations Gastrointestinal: abdominal pain; No jaundice; nausea, vomiting Genitourinary: dysuria, frequency; No hematuria Musculoskeletal: joint pain, joint swelling, muscle pain, muscle stiffness, muscle cramps, muscle weakness Skin: No change in color, No change in hair/nails Psychiatric/Neurological: Anxiety; Denies Depressed, Denies Seizure, Denies Tremors Other Pt denies any hx of abnormal bleeding or bruising Physical Exam-General Problems Physical Exam Vital Signs Vital Signs - First Documented 06/18/20 00:25 Temp 36.8 Pulse 71 Resp 18 B/P (MAP) 129/79 (96) Pulse Ox 98 O2 Delivery Nasal Cannula O2 Flow Rate 3.00 Capillary Refill : Less Than 3 Seconds General Appearance: WD/WN, no apparent distress Eyes: Bilateral Eye PERRL, Bilateral Eye EOMI HEENT: pharynx normal; No scleral icterus (R), No scleral icterus (L), No pale conjunctivae (R), No pale conjunctivae (L) Neck: non-tender, supple Respiratory: lungs clear, normal breath sounds, no respiratory distress, no accessory muscle use Cardiovascular: regular rate, rhythm, no murmur Gastrointestinal: soft; No distended, No guarding, No rebound; tenderness (to deep palpation) Extremities: no pedal edema, no calf tenderness Neurologic/Psychiatric: receiver II-XII nml as tested, alert, oriented x 3 Skin: normal color, warm/dry Lymphatic: no adenopathy (neck, axilla or groin) Data Review Labs Laboratory Tests 06/18/20 00:40: White Blood Count 10.8, Red Blood Count 5.93H, Hemoglobin 15.5, Hematocrit 51, Mean Corpuscular Volume 86, Mean Corpuscular Hemoglobin 26, Mean Corpuscular Hemoglobin Concent 30L, Red Cell Distribution Width 20.3H, Platelet Count 303, Mean Platelet Volume 10.9, Immature Granulocyte % (Auto) 1, Neutrophils (%) (Auto) 86H, Lymphocytes (%) (Auto) 7L, Monocytes (%) (Auto) 3, Eosinophils (%) (Auto) 3, Basophils (%) (Auto) 0, Neutrophils # (Auto) 9.3H, Lymphocytes # (A uto) 0.8L, Monocytes # (Auto) 0.3, Eosinophils # (Auto) 0.3, Basophils # (Auto) 0.0, Immature Granulocyte # (Auto) 0.1, Neutrophils % (Manual) 82, Lymphocytes % (Manual) 11, Monocytes % (Manual) 4, Eosinophils % (Manual) 3, Blood Morphology Comment NORMAL, Erythrocyte Sedimentation Rate 1, Prothrombin Time 12.8, INR Comment 0.9, Activated Partial Thromboplast Time 27, Sodium Level 137, Potassium Level 4.1, Chloride Level 101, Carbon Dioxide Level 22, Anion Gap 14, Blood Urea Nitrogen 12, Creatinine 1.00, Estimat Glomerular Filtration Rate 53, BUN/Creatinine Ratio 12, Glucose Level 119H, Lactic Acid Level 1.96, Calcium Level 10.4H, Corrected Calcium , Magnesium Level 1.7, Total Bilirubin 0.9, Aspartate Amino Transf (AST/SGOT) 23, Alanine Aminotransferase (ALT/SGPT) 13, Alkaline Phosphatase 99, Lactate Dehydrogenase 278H, C-Reactive Protein High Sensitivity 0.39, Total Protein 8.0, Albumin 4.6H, Amylase Level 22L, Lipase 4L, Procalcitonin 0.08, Coronavirus 2019 ([facility]) Positive 06/18/20 00:48: Urine Color BROWNH, Urine Clarity SL CLOUDY, Urine pH 5.5, Urine Specific [place] 1.025H, Urine Protein 1+H, Urine Glucose (UA) NEGATIVE, Urine Ketones TRACEH, Urine Nitrite POSITIVEH, Urine Bilirubin 2+H, Urine Urobilinogen 1.0, Urine Leukocyte Esterase TRACEH, Urine RBC (Auto) NEGATIVE, Urine RBC NONE, Urine WBC 10-25H, Urine Squamous Epithelial Cells 2-5, Urine Crystals NONE, Urine Bacteria LARGEH, Urine Casts NONE, Urine Mucus SMALLH, Urine Culture Indicated YES 06/18/20 05:31: White Blood Count 7.6, Red Blood Count 4.61, Hemoglobin 12.2#, Hematocrit 40, Mean Corpuscular Volume 87, Mean Corpuscular Hemoglobin 26, Mean Corpuscular Hemoglobin Concent 30L, Red Cell Distribution Width 19.4H, Platelet Count 220, Mean Platelet Volume 10.8, Immature Granulocyte % (Auto) 1, Neutrophils (%) (Auto) 82H, Lymphocytes (%) (Auto) 10L, Monocytes (%) (Auto) 3, Eosinophils (%) (Auto) 3, Basophils (%) (Auto) 0, Neutrophils # (Auto) 6.2, Lymphocytes # (Auto) 0.8L, Monocytes # (Auto) 0.2, Eosinophils # (Auto) 0.3, Basophils # (Auto) 0.0, Immature Granulocyte # (Auto) 0.1, Sodium Level 136, Potassium Level 3.6, Chloride Level 105, Carbon Dioxide Level 25, Anion Gap 6, Blood Urea Nitrogen 11, Creatinine 0.80, Estimat Glomerular Filtration Rate > 60, BUN/Creatinine Ratio 14, Glucose Level 132H, Calcium Level 8.8, Corrected Calcium 9.3, Total Bilirubin 0.6, Aspartate Amino Transf (AST/SGOT) 13, Alanine Aminotransferase (ALT/SGPT) 10, Alkaline Phosphatase 72, Total Protein 5.6L, Albumin 3.4 Microbiology 06/18/20 Urine Culture - Preliminary, Resulted Gram Negative [facility] Date of Exam:06/18/20 CT ABDOMEN/PELVIS WO EXAMINATION: CT abdomen and pelvis without contrast. TECHNIQUE: Multiple contiguous axial images were obtained through the abdomen and pelvis without the use of intravenous contrast. All CT scans use one or more of the following dose optimizing techniques: automated exposure control, MA and/or KvP adjustment based on patient size and exam type or iterative reconstruction. HISTORY: C. Difficile infection, abdominal pain. COMPARISON: CT chest, abdomen and pelvis 03/04/2020 FINDINGS: Lung bases: Bibasilar dependent atelectasis. Solid organs: The liver is normal. The gallbladder is normal. There is no biliary ductal dilation. There is mild atrophy of the pancreas without ductal dilatation. Spleen is normal. Adrenal glands are normal. The kidneys are normal without visualized calculus or hydronephrosis. Bowel: The stomach and small bowel are normal without obstruction. Surgical changes of the colon. No bowel obstruction. Peritoneum: There is no intraperitoneal free fluid or free air. No suspicious lymphadenopathy. Vasculature: Calcification of the aorta without aneurysm. Musculoskeletal: Multilevel degenerative changes of the spine. Multilevel compression deformities throughout the thoracic and lumbar spine with multilevel vertebral augmentation. No acute compression fracture or suspicious osseous lesion. Surgical changes of the right femur. There is an anterior ventral abdominal hernia containing fat and loops of small bowel without obstruction. Pelvis: The uterus is surgically absent. No adnexal mass. The urinary bladder is decompressed with Lee catheter. IMPRESSION: 1. No acute abnormality in the abdomen or pelvis. 2. Agree with preliminary interpretation. Dictated on workstation # [id number] Dict: 06/18/2018 Trans: 06/18/20 0623 [id number] Interpreted by: ELVIS ROSEN DO Assessment/Plan Assessment/Plan Assessment/Plan Covid - 19 positive C. Diff Colitis UTI N/V Hx of CA, HTN, CAD, PVD, COPD Pt has multiple medical problems but appears to be doing ok right now. Would treat the UTI with ABX and treat N/V symptoms. Has already been treated for C. Diff, would monitor for increasing diarrhea. She should also be supported for the Covid-19 diagnosis, but don't know whether this is causing any problems. Ok to put back on home meds and would start on clear liquid diet and increase as tolerated. LEXUS NELSON DO Jun 18, 2020 10:29
[2020-06-18] MEDS ORDERED: LORA-404 PO (10:30)
[2020-06-18] MEDS: LORazepam 0.5 MG (ATIVAN) TABLET PO PRN ×2 (10:42→20:59)
--- NOTE | 2020-06-18 11:46 | History & Physical-Hospitalist ---
History of Present Illness HPI/Chief Complaint April Gomez is an 80-year-old female with past medical history of hypertension, hypothyroidism, oxygen dependent COPD on 3 L, restless leg syndrome, colon cancer status post hemicolectomy, who presented with abdominal pain, vomiting, and diarrhea. She was diagnosed with C. difficile colitis as an outpatient. She had been started on oral Flagyl. She has not noticed any blood in her stools. She continues to have diarrhea. She denies any fevers but has had chills. She denies any chest pain. She denies any shortness of breath or cough. She has had some lower extremity swelling. Source: patient Exam Limitations: no limitations Date Seen 06/18/20 Time Seen by a Provider: 10:40 Attending Physician Xochilt Martinez DO PCP Eliud Brewer DO Referring Physician Date of Admission Jun 18, 2020 at 01:35 Home Medications & Allergies Home Medications Reviewed patient Home Medication Reconciliation performed by pharmacy medication reconciliations durable medical equipment technician and/or nursing. Patients Allergies have been reviewed. Allergies Allergies Coded Allergies ciprofloxacin (Verified Allergy, Intermediate, SKIN BURNING, 09/09/19) sulfamethoxazole (Verified Allergy, Intermediate, Vomiting, 09/09/19) trimethoprim (Verified Allergy, Intermediate, Vomiting, 09/09/19) erythromycin base (Verified Allergy, Unknown, 09/09/19) quinine (Verified Allergy, Unknown, 09/09/19) cephalexin (Verified Adverse Reaction, Severe, CONFUSION, DIZZINESS, 03/04/20) Patient Social History Tobacco Use?: No Smoking Status: Former Smoker Substance use?: No Alcohol Use?: No Pt stated abuse/neglect: No Immunizations Up To Date Influenza Vaccine Up-to-Date: Yes; Up-to-Date First/Initial COVID19 Vaccinat: 03/12/20 Second COVID19 Vaccination Javier: 04/15/20 Tetanus Booster (TDap): Unknown Hepatitis A: No Hepatitis B: No TB Skin Test: None Date of Pneumonia Vaccine: Aug 20, 2017 Current Status status: No status: No Do you have an Advance Directi: No Communicates: Verbally Primary Language: Maltese Preferred Spoken Language: Maltese Is interpretation needed?: No Sensory deficits: Vision impairment Implanted or Applied Medical D: Stents Past Medical History HTN Hypothyroidism COPD with oxygen dependence 3 L Colon cancer s/p hemicolectomy Restless legs syndrome Family Medical History Family Hx: SOCIAL HISTORY: -ETOH--OCCASIONAL USE IN PAST -DRUGS--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 GUZMAN IN [place] -RIGHT HEMICOLECTOMY/SMALL BOWEL RESECTION/LYSIS OF ADHESIONS/MULTIPLE FOREIGN BODIES REMOVED ( CORKSCREW TACKS FROM PREVIOUS HERNIA MESH ) 09/12/[address] NELSON -CYSTOSCOPY WITH BOTOX INJECTIONS 07/09/[address] MCDONALD. -MULTIPLE HERNIA REPAIRS WITH MESH -MULTIPLE EGD'S/COLONOSCOPIES/DILATIONS OF ESOPHAGEAL STRICTURES -CARDIAC CATHS--STENTS X 2 -KYPHOPLASTIES -APPENDECTOMY -RIGHT HIP FRACTURE ORIF WITH PIN IN HIP AND HEATHER IN FEMUR 03/2016 -HYSTERECTOMY/BILATERAL [place]O-OOPHORECTOMY -TONSILLECTOMY ADDITIONAL PAST MEDICAL HISTORY: -HAS 24 HOUR IN-HOME CARETAKERS -FREQUENT FALLS--USES A WALKER -RESTLESS LEG SYNDROME -RIGHT [place]UMBO'S CYST -MULTIPLE COMPRESSION FRACTURES WITH KYPHOPLASTIES -CHRONIC DYSPHAGIA -CHRONIC ABDOMINAL PAIN COMPLAINTS -HAS Review of Systems Constitutional: chills, weakness EENTM: no symptoms reported Respiratory: no symptoms reported Cardiovascular: no symptoms reported Gastrointestinal: abdominal pain, diarrhea, nausea, vomiting Genitourinary: no symptoms reported Musculoskeletal: no symptoms reported Skin: no symptoms reported Psychiatric/Neurological: No Symptoms Reported Physical Exam Physical Exam Vital Signs Vital Signs - First Documented 06/18/20 00:25 Temp 36.8 Pulse 71 Resp 18 B/P (MAP) 129/79 (96) Pulse Ox 98 O2 Delivery Nasal Cannula O2 Flow Rate 3.00 Capillary Refill : Less Than 3 Seconds Height, Weight, BMI Height: 5'2.00" Weight: 163lbs. 0.0oz. [id number]; 33.23 BMI Method:Stated General Appearance: No Apparent Distress, Chronically ill, Obese HEENT: PERRL/EOMI, Pharynx Normal Neck: Normal Inspection, Supple Respiratory: Lungs Clear, Normal Breath Sounds, No Respiratory Distress Cardiovascular: Regular Rate, Rhythm, No Murmur Gastrointestinal: Soft, Abnormal Bowel Sounds (Hyperactive), Distended; No Guarding; Tenderness Extremity: Normal Inspection, Non Tender, Pedal Edema Neurologic/Psychiatric: Alert, Oriented x3, No Motor/Sensory Deficits, Normal Mood/Affect Skin: Normal Color, Warm/Dry Results Results/Procedures Labs Laboratory Tests 06/18/20 00:40 06/18/20 05:31 Patient resulted labs reviewed. Imaging: Reviewed Imaging Report Assessment/Plan Admission Diagnosis C diff colitis Admission Status: Inpatient Order (span 2 midnights) Reason for Inpatient Admission: UTI requiring IV antibiotics Debility requiring therapy Assessment and Plan C diff colitis Diagnosed outpatient Started on oral Flagyl by PCP Transition to oral Vancomycin UTI History of ESBL UA consistent with UTI Urine culture with gram negative heather Started on Meropenem COVID-19 Chronic respiratory failure with hypoxia COPD Not admitted for COVID-19 Oxygen requirement below baseline 3 L at home, currently 1 L HTN Hypothyroid RLS Continue home meds Obesity Colon cancer s/p hemicolectomy Clinically significant, no acute management needs DVT prophylaxis: Lovenox Diagnosis/Problems Diagnosis/Problems (1) C. difficile colitis Status: Acute (2) UTI (urinary tract infection) Status: Acute (3) History of ESBL E. coli infection Status: Chronic (4) COVID-19 Status: Acute (5) Chronic respiratory failure with hypoxia Status: Chronic (6) COPD (chronic obstructive pulmonary disease) Status: Chronic (7) History of hemicolectomy Status: Chronic (8) Colon adenocarcinoma Status: Chronic (9) Obesity Status: Chronic IKE FRANK MD Jun 18, 2020 11:46
[2020-06-18] MEDS ORDERED: ENOXAPARIN 40 MG/0.4 ML (LOVENOX) SYR ONE (11:51)
[2020-06-18] MEDS ORDERED: ENOXAPARIN 40 MG/0.4 ML (LOVENOX) SYR SQ SCH (12:00)
[2020-06-18] MEDS ORDERED: LORA-405 PO ×2 (15:06)
[2020-06-18] MEDS ORDERED: POTA10TA6 PO ×2 (15:06)
[2020-06-18] MEDS ORDERED: ALBU18HF2 INH ×2 (15:06)
[2020-06-18] MEDS ORDERED: BUSP5TAB59 PO ×2 (15:06)
[2020-06-18] MEDS ORDERED: ROPI4TAB5 PO ×2 (15:06)
[2020-06-18] MEDS ORDERED: TEMA15CA PO ×2 (15:06)
[2020-06-18] MEDS ORDERED: METR-145 PO ×2 (15:06)
[2020-06-18] MEDS ORDERED: OXYC10TA7 PO ×2 (15:06)
[2020-06-18] MEDS ORDERED: CLOP75TA28 PO ×2 (15:06)
[2020-06-18] MEDS ORDERED: FURO20TA4 PO ×2 (15:06)
[2020-06-18] MEDS ORDERED: LOPE-175 PO ×2 (15:11)
[2020-06-18] MEDS ORDERED: MULT-985 PO ×2 (15:11)
[2020-06-18] MEDS ORDERED: ASPI-1238 PO ×2 (15:11)
[2020-06-18] MEDS: ACETAMINOPHEN 500 MG TAB (TYLENOL) PO PRN (15:53)
[2020-06-18] MEDS: ZOLPIDEM 5 MG (AMBIEN) TAB PO SCH (20:46)
[2020-06-18] MEDS: ONDANSETRON 4 MG/2 ML (SDV) Z0FRAN IV PRN (20:46)
[2020-06-18] MEDS: busPIRone 5 MG (BUSPAR) TAB PO SCH (20:46)
[2020-06-18] MEDS: rOPINIRole 1 MG (REQUIP) TABLET PO SCH (20:50)
[2020-06-19] MEDS: MEROPENEM 500 MG/SWFI 10 ML IV PUSH IV SCH ×6 (03:05→16:22)
[2020-06-19 03:08] VITALS: BP 110/69
[2020-06-19] MEDS: VANCOMYCIN 125 MG CAPSULE PO SCH ×4 (05:43→23:06)
[2020-06-19] MEDS: LORazepam 0.5 MG (ATIVAN) TABLET PO PRN ×3 (05:43→22:58)
[2020-06-19] MEDS: D5 1/2 NS W/KCL 20 MEQ/L 1,000 ML IV SCH ×2 (05:49→16:21)
[2020-06-19 08:00] VITALS: BP 157/85
[2020-06-19] MEDS: busPIRone 5 MG (BUSPAR) TAB PO SCH ×2 (10:06→20:07)
[2020-06-19] MEDS: PANTOPRAZOLE 40 MG (PROTONIX) VIAL IV SCH (10:06)
[2020-06-19 12:00] VITALS: BP 136/82
--- NOTE | 2020-06-19 12:43 | Progress Note - Hospitalist ---
Subjective HPI/CC On Admission Date Seen by Provider: Jun 19, 2020 Time Seen by Provider: 10:50 April Gomez is an 80-year-old female with past medical history of hypertension, hypothyroidism, oxygen dependent COPD on 3 L, restless leg syndrome, colon cancer status post hemicolectomy, who presented with abdominal pain, vomiting, and diarrhea. She was diagnosed with C. difficile colitis as an outpatient. She had been started on oral Flagyl. She has not noticed any blood in her stools. She continues to have diarrhea. She denies any fevers but has had chills. She denies any chest pain. She denies any shortness of breath or cough. She has had some lower extremity swelling. Subjective/Events-last exam She is feeling a little bit better today. She is still having diarrhea. She still has some abdominal pain but it has improved. She denies any nausea or vomiting. She is not having any fevers or chills. Focused Exam Lactate Level 06/18/20 00:40: Lactic Acid Level 1.96 Objective Exam Vital Signs Vital Signs Date Time Temp Pulse Resp B/P (MAP) Pulse Ox O2 Delivery O2 Flow Rate FiO2 06/19/20 12:00 36.2 88 18 136/82 (100) 95 Room Air 06/19/20 08:00 2.00 Capillary Refill : Less Than 3 Seconds General Appearance: No Apparent Distress, Chronically ill, Obese Respiratory: Lungs Clear, Normal Breath Sounds, No Respiratory Distress Cardiovascular: Regular Rate, Rhythm, No Murmur Gastrointestinal: Normal Bowel Sounds, Non Tender, Soft Extremity: Normal Inspection, Non Tender, Pedal Edema Neurologic/Psychiatric: Alert, Oriented x3, No Motor/Sensory Deficits, Normal Mood/Affect Skin: Normal Color, Warm/Dry Results/Procedures Lab Patient resulted labs reviewed. Imaging: Reviewed Imaging Report Assessment/Plan Assessment and Plan Assess & Plan/Chief Complaint C diff colitis Diagnosed outpatient Continue Vancomycin UTI History of ESBL UA consistent with UTI Urine culture with E coli Continue Meropenem COVID-19 Chronic respiratory failure with hypoxia COPD Not admitted for COVID-19 Oxygen requirement below baseline 3 L at home, currently room air HTN Hypothyroid RLS Continue home meds Obesity Colon cancer s/p hemicolectomy Clinically significant, no acute management needs DVT prophylaxis: Lovenox Diagnosis/Problems Diagnosis/Problems (1) C. difficile colitis Status: Acute (2) UTI (urinary tract infection) Status: Acute (3) History of ESBL E. coli infection Status: Chronic (4) COVID-19 Status: Acute (5) Chronic respiratory failure with hypoxia Status: Chronic (6) COPD (chronic obstructive pulmonary disease) Status: Chronic (7) History of hemicolectomy Status: Chronic (8) Colon adenocarcinoma Status: Chronic (9) Obesity Status: Chronic IKE FRANK MD Jun 19, 2020 12:43
[2020-06-19] MEDS: ENOXAPARIN 40 MG/0.4 ML (LOVENOX) SYR SQ SCH (13:42)
[2020-06-19] MEDS: fentaNYL INJ 100 MCG/2 ML AMP IV PRN (13:42)
--- NOTE | 2020-06-19 14:41 | Progress Note - Surgery ---
Subjective Time Seen by a Provider: 14:15 Subjective/Events-last exam Pt seen and examined, she denies abdominal pain, nausea and vomiting. States she is still having diarrhea. Her main concern is if she can get out Monday, because she has appt in [place] with Vascular surgeon for her PAD. Review of Systems General: Fatigue, Malaise Pulmonary: No Dyspnea, No Cough Cardiovascular: No: Palpitations Gastrointestinal: Diarrhea; No: Nausea, Vomiting, Abdominal Pain Focused Exam Lactate Level 06/18/20 00:40: Lactic Acid Level 1.96 Objective Exam Vital Signs Date Time Temp Pulse Resp B/P (MAP) Pulse Ox O2 Delivery O2 Flow Rate FiO2 06/19/20 13:00 93 06/19/20 12:00 36.2 88 18 136/82 (100) 95 Room Air 06/19/20 08:00 36.2 89 16 157/85 (109) 96 Room Air 06/19/20 08:00 Nasal Cannula 2.00 06/19/20 07:00 84 06/19/20 03:08 36.8 77 18 110/69 (83) 94 Room Air 06/19/20 01:00 80 06/18/20 23:31 36.5 77 20 129/73 (91) 98 Nasal Cannula 0.50 06/18/20 20:50 Nasal Cannula 2.00 06/18/20 19:00 36.1 73 18 107/70 (82) 97 Nasal Cannula 0.50 06/18/20 19:00 70 06/18/20 15:53 36.7 06/18/20 15:39 Nasal Cannula 1.00 06/18/20 15:39 36.6 69 18 116/70 (85) 96 Nasal Cannula 1.00 I & O 06/19/20 07:00 Intake Total 2630 ml Output Total 1475 ml Balance 1155 ml Capillary Refill : Less Than 3 Seconds General Appearance: No Apparent Distress, Chronically ill, Obese HEENT: PERRL/EOMI, Pharynx Normal Respiratory: Lungs Clear, Normal Breath Sounds, No Respiratory Distress Cardiovascular: Regular Rate, Rhythm, No Murmur Gastrointestinal: soft; No distended, No guarding, No rebound; tenderness (DIFFUSE TENDERNESS) Extremity: Pedal Edema Neurologic/Psychiatric: Alert, Oriented x3 Skin: Warm/Dry Results Lab Microbiology 06/18/20 Blood Culture - Preliminary, Resulted No growth 06/18/20 Urine Culture - Final, Complete Escherichia coli Assessment/Plan Assessment/Plan Assessment/Plan Covid - 19 positive C. Diff Colitis UTI N/V Hx of CA, HTN, CAD, PVD, COPD Pt still doing ok, continue to treat the UTI with ABX and treat N/V symptoms. Has already been treated for C. Diff, would monitor for increasing diarrhea. She should also be supported for the Covid-19 diagnosis, but don't know whether this is causing any problems. Ok to put back on home meds and would start on clear liquid diet and increase as tolerated. LEXUS NELSON DO Jun 19, 2020 14:41
[2020-06-19 16:15] VITALS: BP 148/69
[2020-06-19 19:15] VITALS: BP 159/76
[2020-06-19] MEDS: ZOLPIDEM 5 MG (AMBIEN) TAB PO SCH (20:08)
[2020-06-19] MEDS: rOPINIRole 1 MG (REQUIP) TABLET PO SCH (20:08)
[2020-06-19] MEDS: ACETAMINOPHEN 500 MG TAB (TYLENOL) PO PRN (20:08)
[2020-06-19] MEDS: ONDANSETRON 4 MG/2 ML (SDV) Z0FRAN IV PRN (20:10)
[2020-06-19 23:00] VITALS: BP 160/85
[2020-06-20] MEDS: D5 1/2 NS W/KCL 20 MEQ/L 1,000 ML IV SCH (02:23)
[2020-06-20 03:21] VITALS: BP 147/83
[2020-06-20 05:44] LABS: BASOPHILS % (AUTO) 1 % (0-10); EOSINOPHILS # (AUTO) 0.3 10^3/uL (0.0-0.3); EOSINOPHILS % (AUTO) 6 % (0-10); HEMATOCRIT 38 % (35-52); HEMOGLOBIN 11.5 g/dL (11.5-16.0); LYMPHOCYTES # (AUTO) 1.4 10^3/uL (1.0-4.0); LYMPHOCYTES % (AUTO) 30 % (12-44); MEAN CORPUSCULAR HEMOGLOBIN 26 pg (25-34); MEAN CORPUSCULAR HGB CONC 31 g/dL (32-36); MEAN CORPUSCULAR VOLUME 87 fL (80-99); MEAN PLATELET VOLUME 10.5 fL (9.0-12.2); MONOCYTES # (AUTO) 0.5 10^3/uL (0.0-1.0); MONOCYTES % (AUTO) 10 % (0-12); NEUTROPHILS # (AUTO) 2.5 10^3/uL (1.8-7.8); NEUTROPHILS % (AUTO) 52 % (42-75); PLATELET COUNT 262 10^3/uL (130-400); WHITE BLOOD COUNT 4.8 10^3/uL (4.3-11.0)
[2020-06-20 06:05] LABS: BUN/CREATININE RATIO 3; CALCIUM 8.9 MG/DL (8.5-10.1); CARBON DIOXIDE 25 MMOL/L (21-32); CHLORIDE 105 MMOL/L (98-107); CREATININE SERUM 0.66 MG/DL (0.60-1.30); GFR ESTIMATED > 60; GLUCOSE 104 MG/DL (70-105); SODIUM 135 MMOL/L (135-145)
[2020-06-20] MEDS: VANCOMYCIN 125 MG CAPSULE PO SCH ×3 (06:32→17:26)
[2020-06-20] MEDS: AUGMENTIN 875 MG TAB (AMOXICILLIN/CLAVULANATE) PO SCH ×2 (08:05→17:25)
[2020-06-20] MEDS: busPIRone 5 MG (BUSPAR) TAB PO SCH ×2 (08:08→20:20)
[2020-06-20 08:15] VITALS: BP 150/86
[2020-06-20] MEDS ORDERED: CALCIUM CARBONATE 500 MG (TUMS) TAB.CHEW PO PRN (08:30)
[2020-06-20] MEDS: CLOPIDOGREL 75 MG (PLAVIX) TABLET PO SCH (08:52)
[2020-06-20] MEDS: DULoxetine 30 MG (CYMBALTA) CAP PO SCH (08:52)
[2020-06-20] MEDS: eZETimibe 10 MG (ZETIA) TABLET PO SCH (08:52)
[2020-06-20] MEDS: ASPIRIN E.C. 81 MG (ECOTRIN) TAB PO SCH (08:52)
[2020-06-20] MEDS: LEVOTHYROXINE 112 MCG (LEVOTHROID) TAB PO SCH (08:52)
[2020-06-20] MEDS: KCL 10 MEQ TAB (MICRO K) PO SCH (08:52)
[2020-06-20] MEDS: meTOproloL SUCCINATE 50 MG (TOPROL XL) TAB PO SCH (08:53)
[2020-06-20] MEDS: FAMOTIDINE 20 MG (PEPCID) TABLET PO SCH ×2 (08:53→20:20)
[2020-06-20] MEDS: ONDANSETRON 4 MG/2 ML (SDV) Z0FRAN IV PRN ×2 (08:53→17:33)
[2020-06-20] MEDS: FUROSEMIDE 20 MG (LASIX) TAB PO SCH (08:53)
[2020-06-20] MEDS ORDERED: PANTOPRAZOLE 40 MG (PROTONIX) TAB PO SCH (09:00)
[2020-06-20] MEDS: LORazepam 0.5 MG (ATIVAN) TABLET PO PRN ×2 (09:47→17:25)
[2020-06-20 11:35] VITALS: BP 156/88
--- NOTE | 2020-06-20 11:43 | Progress Note - Hospitalist ---
Subjective HPI/CC On Admission Date Seen by Provider: June 20, 2020 Time Seen by Provider: 10:20 April Gomez is an 80-year-old female with past medical history of hypertension, hypothyroidism, oxygen dependent COPD on 3 L, restless leg syndrome, colon cancer status post hemicolectomy, who presented with abdominal pain, vomiting, and diarrhea. She was diagnosed with C. difficile colitis as an outpatient. She had been started on oral Flagyl. She has not noticed any blood in her stools. She continues to have diarrhea. She denies any fevers but has had chills. She denies any chest pain. She denies any shortness of breath or cough. She has had some lower extremity swelling. Subjective/Events-last exam She continues to have significant diarrhea. She is feeling weak. She reports that her bottom is raw. She says she is not sleeping well. She requests her home insomnia medicine. Focused Exam Lactate Level 06/18/20 00:40: Lactic Acid Level 1.96 Objective Exam Vital Signs Vital Signs Date Time Temp Pulse Resp B/P (MAP) Pulse Ox O2 Delivery O2 Flow Rate FiO2 06/20/20 11:35 36.2 70 20 156/88 (110) 96 Room Air 06/19/20 08:00 2.00 Capillary Refill : Less Than 3 Seconds General Appearance: No Apparent Distress, Anxious, Chronically ill, Obese Respiratory: Lungs Clear, Normal Breath Sounds, No Respiratory Distress Cardiovascular: Regular Rate, Rhythm, No Murmur Gastrointestinal: Normal Bowel Sounds, Soft, Hernia, Tenderness Extremity: Normal Inspection, Non Tender, Pedal Edema Neurologic/Psychiatric: Alert, Oriented x3 Skin: Normal Color, Warm/Dry Results/Procedures Lab Laboratory Tests 06/20/20 05:30 Patient resulted labs reviewed. Imaging: Reviewed Imaging Report Assessment/Plan Assessment and Plan Assess & Plan/Chief Complaint C diff colitis Diagnosed outpatient Continue Vancomycin UTI History of ESBL UA consistent with UTI Urine culture with E coli, not ESBL Transitioned to Augmentin COVID-19 Chronic respiratory failure with hypoxia COPD Not admitted for COVID-19 Oxygen requirement below baseline 3 L at home, currently room air HTN Hypothyroid RLS Insomnia Continue home meds Obesity Colon cancer s/p hemicolectomy Clinically significant, no acute management needs DVT prophylaxis: Lovenox Diagnosis/Problems Diagnosis/Problems (1) C. difficile colitis Status: Acute (2) UTI (urinary tract infection) Status: Acute (3) History of ESBL E. coli infection Status: Chronic (4) COVID-19 Status: Acute (5) Chronic respiratory failure with hypoxia Status: Chronic (6) COPD (chronic obstructive pulmonary disease) Status: Chronic (7) History of hemicolectomy Status: Chronic (8) Colon adenocarcinoma Status: Chronic (9) Obesity Status: Chronic IKE FRANK MD June 20, 2020 11:43
[2020-06-20] MEDS: ENOXAPARIN 40 MG/0.4 ML (LOVENOX) SYR SQ SCH (13:53)
[2020-06-20 16:32] VITALS: BP 161/80
[2020-06-20] MEDS: TEMAZEPAM 15 MG (RESTORIL) CAP PO SCH (20:19)
[2020-06-20] MEDS: rOPINIRole 1 MG (REQUIP) TABLET PO SCH (20:19)
[2020-06-20] MEDS: MELATONIN 3 MG TABLET PO PRN (20:19)
[2020-06-20 20:44] VITALS: BP 172/89
[2020-06-21] MEDS: VANCOMYCIN 125 MG CAPSULE PO SCH ×5 (00:46→23:03)
[2020-06-21 00:48] VITALS: BP 115/69
[2020-06-21] MEDS: ACETAMINOPHEN 500 MG TAB (TYLENOL) PO PRN (02:13)
[2020-06-21] MEDS: LORazepam 0.5 MG (ATIVAN) TABLET PO PRN ×3 (02:13→20:18)
[2020-06-21] MEDS: diphenhydrAMINE 25 MG TAB (BENADRYL) PO PRN (02:14)
[2020-06-21 04:44] VITALS: BP 154/72
[2020-06-21] MEDS: LEVOTHYROXINE 112 MCG (LEVOTHROID) TAB PO SCH (05:30)
[2020-06-21 08:07] VITALS: BP 164/86
[2020-06-21] MEDS: FAMOTIDINE 20 MG (PEPCID) TABLET PO SCH ×2 (09:05→20:18)
[2020-06-21] MEDS: CLOPIDOGREL 75 MG (PLAVIX) TABLET PO SCH (09:05)
[2020-06-21] MEDS: AUGMENTIN 875 MG TAB (AMOXICILLIN/CLAVULANATE) PO SCH ×2 (09:05→17:32)
[2020-06-21] MEDS: ASPIRIN E.C. 81 MG (ECOTRIN) TAB PO SCH (09:05)
[2020-06-21] MEDS: DULoxetine 30 MG (CYMBALTA) CAP PO SCH (09:05)
[2020-06-21] MEDS: FUROSEMIDE 20 MG (LASIX) TAB PO SCH (09:05)
[2020-06-21] MEDS: KCL 10 MEQ TAB (MICRO K) PO SCH (09:05)
[2020-06-21] MEDS: busPIRone 5 MG (BUSPAR) TAB PO SCH ×2 (09:05→20:18)
[2020-06-21] MEDS: eZETimibe 10 MG (ZETIA) TABLET PO SCH (09:05)
[2020-06-21] MEDS: meTOproloL SUCCINATE 50 MG (TOPROL XL) TAB PO SCH (09:05)
[2020-06-21] MEDS: ENOXAPARIN 40 MG/0.4 ML (LOVENOX) SYR SQ SCH (09:06)
[2020-06-21] MEDS: ONDANSETRON 4 MG/2 ML (SDV) Z0FRAN IV PRN (09:10)
[2020-06-21 09:47] LABS: BASOPHILS % (AUTO) 1 % (0-10); EOSINOPHILS # (AUTO) 0.3 10^3/uL (0.0-0.3); EOSINOPHILS % (AUTO) 5 % (0-10); HEMATOCRIT 41 % (35-52); HEMOGLOBIN 12.9 g/dL (11.5-16.0); LYMPHOCYTES # (AUTO) 1.8 10^3/uL (1.0-4.0); LYMPHOCYTES % (AUTO) 36 % (12-44); MEAN CORPUSCULAR HEMOGLOBIN 27 pg (25-34); MEAN CORPUSCULAR HGB CONC 32 g/dL (32-36); MEAN CORPUSCULAR VOLUME 85 fL (80-99); MEAN PLATELET VOLUME 10.2 fL (9.0-12.2); MONOCYTES # (AUTO) 0.5 10^3/uL (0.0-1.0); MONOCYTES % (AUTO) 9 % (0-12); NEUTROPHILS # (AUTO) 2.4 10^3/uL (1.8-7.8); NEUTROPHILS % (AUTO) 48 % (42-75); PLATELET COUNT 259 10^3/uL (130-400); WHITE BLOOD COUNT 5.1 10^3/uL (4.3-11.0)
[2020-06-21 09:50] LABS: SMEAR SCAN COMMENT YES
[2020-06-21 09:59] LABS: CHLORIDE 97 MMOL/L (98-107); POTASSIUM 3.6 MMOL/L (3.6-5.0); SODIUM 133 MMOL/L (135-145)
[2020-06-21 10:01] LABS: CALCIUM 9.4 MG/DL (8.5-10.1); GLUCOSE 110 MG/DL (70-105)
[2020-06-21 10:02] LABS: CARBON DIOXIDE 26 MMOL/L (21-32)
[2020-06-21 10:05] LABS: CREATININE SERUM 0.81 MG/DL (0.60-1.30); GFR ESTIMATED > 60
[2020-06-21 10:06] LABS: BUN/CREATININE RATIO 7
[2020-06-21] MEDS: LACTATED RINGERS 1,000 ML IV SCH ×2 (12:35→22:11)
--- NOTE | 2020-06-21 12:49 | Progress Note - Hospitalist ---
Subjective HPI/CC On Admission Date Seen by Provider: June 21, 2020 Time Seen by Provider: 11:40 April Gomez is an 80-year-old female with past medical history of hypertension, hypothyroidism, oxygen dependent COPD on 3 L, restless leg syndrome, colon cancer status post hemicolectomy, who presented with abdominal pain, vomiting, and diarrhea. She was diagnosed with C. difficile colitis as an outpatient. She had been started on oral Flagyl. She has not noticed any blood in her stools. She continues to have diarrhea. She denies any fevers but has had chills. She denies any chest pain. She denies any shortness of breath or cough. She has had some lower extremity swelling. Subjective/Events-last exam She is doing better today. She is sitting in her chair doing a word search puzzle. She had a bath. Her diarrhea has improved so far today. She says it is becoming more well formed. She is not having any abdominal pain. She denies any nausea or vomiting. She has been able to eat and drink. Objective Exam Vital Signs Vital Signs Date Time Temp Pulse Resp B/P (MAP) Pulse Ox O2 Delivery O2 Flow Rate FiO2 06/21/20 08:07 67 20 164/86 (112) 91 Room Air 06/21/20 04:44 36.6 06/19/20 08:00 2.00 Capillary Refill : Less Than 3 Seconds General Appearance: No Apparent Distress, Obese Respiratory: Lungs Clear, Normal Breath Sounds, No Respiratory Distress Cardiovascular: Regular Rate, Rhythm, No Murmur Gastrointestinal: Normal Bowel Sounds, Non Tender, Soft Extremity: Normal Inspection, Non Tender, Pedal Edema Neurologic/Psychiatric: Alert, Oriented x3, No Motor/Sensory Deficits, Normal Mood/Affect Skin: Normal Color, Warm/Dry Results/Procedures Lab Laboratory Tests 06/21/20 09:33 Patient resulted labs reviewed. Imaging: Reviewed Imaging Report Assessment/Plan Assessment and Plan Assess & Plan/Chief Complaint C diff colitis Diagnosed outpatient Continue Vancomycin UTI History of ESBL UA consistent with UTI Urine culture with E coli, not ESBL Continue Augmentin COVID-19 Chronic respiratory failure with hypoxia COPD Not admitted for COVID-19 Oxygen requirement below baseline 3 L at home, currently room air HTN Hypothyroid RLS Insomnia Continue home meds Obesity Colon cancer s/p hemicolectomy Clinically significant, no acute management needs DVT prophylaxis: Lovenox Diagnosis/Problems Diagnosis/Problems (1) C. difficile colitis Status: Acute (2) UTI (urinary tract infection) Status: Acute (3) History of ESBL E. coli infection Status: Chronic (4) COVID-19 Status: Acute (5) Chronic respiratory failure with hypoxia Status: Chronic (6) COPD (chronic obstructive pulmonary disease) Status: Chronic (7) History of hemicolectomy Status: Chronic (8) Colon adenocarcinoma Status: Chronic (9) Obesity Status: Chronic IKE FRANK MD June 21, 2020 12:49
[2020-06-21 15:06] VITALS: BP 141/84
[2020-06-21] MEDS: rOPINIRole 1 MG (REQUIP) TABLET PO SCH (20:17)
[2020-06-21] MEDS: TEMAZEPAM 15 MG (RESTORIL) CAP PO SCH (20:17)
[2020-06-21] MEDS: MELATONIN 3 MG TABLET PO PRN (20:18)
[2020-06-21 23:12] VITALS: BP 141/92
[2020-06-22] MEDS: diphenhydrAMINE 25 MG TAB (BENADRYL) PO PRN (04:29)
[2020-06-22] MEDS: ACETAMINOPHEN 500 MG TAB (TYLENOL) PO PRN (04:29)
[2020-06-22] MEDS: LEVOTHYROXINE 112 MCG (LEVOTHROID) TAB PO SCH (06:02)
[2020-06-22] MEDS: VANCOMYCIN 125 MG CAPSULE PO SCH ×2 (06:02→09:04)
[2020-06-22] MEDS: LACTATED RINGERS 1,000 ML IV SCH (06:45)
[2020-06-22 08:00] VITALS: BP 163/71
[2020-06-22] MEDS: meTOproloL SUCCINATE 50 MG (TOPROL XL) TAB PO SCH (09:04)
[2020-06-22] MEDS: DULoxetine 30 MG (CYMBALTA) CAP PO SCH (09:04)
[2020-06-22] MEDS: eZETimibe 10 MG (ZETIA) TABLET PO SCH (09:04)
[2020-06-22] MEDS: LORazepam 0.5 MG (ATIVAN) TABLET PO PRN (09:04)
[2020-06-22] MEDS: ASPIRIN E.C. 81 MG (ECOTRIN) TAB PO SCH (09:04)
[2020-06-22] MEDS: KCL 10 MEQ TAB (MICRO K) PO SCH (09:04)
[2020-06-22] MEDS: ENOXAPARIN 40 MG/0.4 ML (LOVENOX) SYR SQ SCH (09:05)
[2020-06-22] MEDS: CLOPIDOGREL 75 MG (PLAVIX) TABLET PO SCH (09:05)
[2020-06-22] MEDS: busPIRone 5 MG (BUSPAR) TAB PO SCH (09:05)
[2020-06-22] MEDS: AUGMENTIN 875 MG TAB (AMOXICILLIN/CLAVULANATE) PO SCH (09:05)
--- NOTE | 2020-06-22 11:36 | Physical Therapy Evaluation ---
PT Evaluation-General Medical Diagnosis Admission Date Jun 18, 2020 at 01:35 Medical Diagnosis: C-diff/Covid (+) Onset Date: Jun 18, 2020 Therapy Diagnosis Therapy Diagnosis: debility Height/Weight Height (Feet): 5 Height (Inches): 2.00 Weight (Pounds): 163 Weight (Ounces): 0.0 Precautions Precautions/Isolations: Contact Isolation, Droplet Isolation, Fall Prevention Referral Physician: Leonor Reason for Referral: Evaluation/Treatment Medical History Pertinent Medical History: Arthritis, CAD, COPD, GERD, HTN, Hypothroidism Current History ER secondary to N/V x 6 days Reviewed History: Yes Social History Home: Apartment Current Living Status: caregiver Entry Into Home: Level Entry Prior Prior Level of Function SCALE: Activities may be completed with or without assistive devices. 5-Xxyxvbmunt-xcwwqhz completes the activity by him/herself with no assistance from a helper. 5-Set-up or Clean-up Assistance-helper sets up or cleans up; patient completes activity. Thorp assists only prior to or following the activity. 4-Supervision or Touching Assistance-helper provides verbal cues and/or touching/steadying and/or contact guard assistance as patient completes activity. Assistance may be provided throughout the activity or intermittently. 3-Partial/Moderate Assistance-helper does LESS THAN HALF the effort. Thorp lifts, holds or supports trunk or limbs, but provides less than half the effort. 2-Substantial/Maximal Assistance-helper does MORE THAN HALF the effort. Thorp lifts or holds trunk or limbs and provides more than half the effort. 7-Qfmvvokgy-jzufje does ALL the effort. Patient does none of the effort to complete the activity. Or, the assistance of 2 or more helpers is required for the patient to complete the activity. If activity was not attempted, code reason: 7-Patient Refused. 9-Not Applicable-not attempted and the patient did not perform the activity before the current illness, exacerbation or injury. 10-Not Attempted due to Environmental Limitations-(lack of equipment, weather restraints, etc.). 88-Not Attempted due to Medical Conditions or Safety Concerns. Bed Mobility: 6 Transfers (B,C,W/C): 6 Gait: 6 Stairs: 9 Indoor Mobility (Ambulation): Independent Stairs: Not Applicalbe Prior Devices Use: Walker (4WW) PT Evaluation-Current Subjective Patient agrees to PT. Objective Patient Orientation: Normal For Age Attachments: Lee Catheter ROM/Strength ROM Lower Extremities bilateral LE WFL Strength Lower Extremities 4/5 grossly bilateral LE Integumentary/Posture Integumentary refer to nursing notes Bowel Incontinence: Yes Bladder Incontinence: Lee Cath Posture WFL Neuromuscular (Tone, Coordination, Reflexes) grossly intact Sensory Vision: Functional Hearing: Functional Transfers Roll Left to Right (QC): 6 Sit to Lying (QC): 6 Lying to Sitting/Side of Bed(Q: 6 Sit to Stand (QC): 6 Chair/Fzz-lx-Hultf Xfer(QC): 6 Gait Does the Patient Walk?: Yes Mode of Locomotion: Walk Anticipated Mode of Locomotion: Walk Walk 10 feet (QC): 6 Walk 50 ft with 2 Turns(QC): 6 Walk 150 ft (QC): 6 Distance: 175' Gait Assistive Device: FWW Comments/Gait Description safe and functional with no deviation Wheelchair Training Does the Pt Use a Wheelchair?: No Balance Sitting Static: Normal Sitting Dynamic: Normal Standing Static: Normal Standing Dynamic: Normal Assessment/Needs 80 y.o. female, is currently at [facility] with all gross motor skills safely and does not require skilled therapy intervention. Rehab Potential: Fair PT Plan Treatment/Plan Treatment Plan: Discontinue PT, goals met Treatment Duration: June 22, 2020 Frequency: 1 time per week Estimated Hrs Per Day: .25 hour per day Patient and/or Family Agrees t: Yes Time/GCodes Time In: 1054 Time Out: 1105 Total Billed Treatment Time: 11 Total Billed Treatment 1 visit [facility] 11 min ORTEGA MATIAS PT June 22, 2020 11:36
[2020-06-22] MEDS ORDERED: VANC125C5 PO ×2 (11:41)
--- NOTE | 2020-06-22 11:50 | Discharge Inst-Simple/Standard ---
Discharge Inst-Standard Discharge Medications New, Converted or Re-Newed RX: Transmitted to Pharmacy Patient Instructions/Follow Up Plan of Care/Instructions/FU: Please continue to take your medications as written. Please follow up with your primary care doctor to follow up this hospital stay. Activity as Tolerated: Yes Discharge Diet: No Restrictions Return to The Hospital For: Worsening diarrhea, blood in your stool, chest pain, shortness of breath, abdominal pain, fever, if you feel you are getting worse. MARY GORE MD June 22, 2020 11:50
--- NOTE | 2020-06-22 11:53 | Discharge Summary ---
Diagnosis/Chief Complaint Date of Admission Jun 18, 2020 at 01:35 Date of Discharge Discharge Date: June 22, 2020 Admission Diagnosis C diff colitis Primary Care Eliud Brewer DO Discharge Diagnosis (1) C. difficile colitis Status: Acute (2) UTI (urinary tract infection) Status: Acute (3) History of ESBL E. coli infection Status: Chronic (4) COVID-19 Status: Acute (5) Chronic respiratory failure with hypoxia Status: Chronic (6) COPD (chronic obstructive pulmonary disease) Status: Chronic (7) History of hemicolectomy Status: Chronic (8) Colon adenocarcinoma Status: Chronic (9) Obesity Status: Chronic Discharge Summary Procedures/Consulations Dr Brooks- Surgery Discharge Physical Exam Allergies: Coded Allergies: ciprofloxacin (Verified Allergy, Intermediate, SKIN BURNING, 09/09/19) sulfamethoxazole (Verified Allergy, Intermediate, Vomiting, 09/09/19) trimethoprim (Verified Allergy, Intermediate, Vomiting, 09/09/19) erythromycin base (Verified Allergy, Unknown, 09/09/19) quinine (Verified Allergy, Unknown, 09/09/19) cephalexin (Verified Adverse Reaction, Severe, CONFUSION, DIZZINESS, 03/04/20) Vitals & I&Os Vital Signs Date Time Temp Pulse Resp B/P (MAP) Pulse Ox O2 Delivery O2 Flow Rate FiO2 06/22/20 15:00 06/22/20 08:00 Nasal Cannula 06/22/20 08:00 35.6 84 18 94 General Appearance: No Apparent Distress, WD/WN Cardiovascular: Regular Rate, Rhythm, No Murmur Gastrointestinal: Normal Bowel Sounds, Soft Neurologic/Psychiatric: Alert, Oriented x3 Hospital Course Pt is an 80yoCF who was admitted to the hospital due to c diff colitis. She was incidentally found to be COVID positive by PCR. She has previously had COVID in January and had also been vaccinated and this was felt to be persistent presence vs an acute infection. She was kept in precautions for the safety of staff though. She was treated with oral vanc and did well. She was seen by PT and did well and was able to be discharged home in stable and improved condition. She is to follow up with her primary care doctor to follow up this hospital stay. Labs (last 24 hrs) Microbiology 06/18/20 Blood Culture - Final, Complete No growth 06/18/20 Urine Culture - Final, Complete Escherichia coli Patient resulted labs reviewed. Imaging: Reviewed Imaging Report Discussion & Recommendations Discharge Planning: >30 minutes discharge planning Discharge Home Medications: Active Scripts Active Vancomycin HCl 125 Mg Capsule 125 Mg PO Q6HR Reported Hair, Skin & Nails (Multivitamin with Minerals) 1 Each Tablet 1 Each PO DAILY Imodium A-D (Loperamide HCl) 2 Mg Capsule 2-4 Mg PO UD PRN Aspirin EC (Aspirin) 81 Mg Tablet.dr 81 Mg PO DAILY Clopidogrel (Clopidogrel Bisulfate) 75 Mg Tablet 75 Mg PO DAILY Temazepam 15 Mg Capsule 30 Mg PO HS TAKES 2 (15MG) CAPS Klor-Con 10 (Potassium Chloride) 10 Meq Tablet.er 10 Meq PO DAILY Ativan (Lorazepam) 1 Mg Tablet 1 Mg PO TID PRN Furosemide 20 Mg Tablet 20 Mg PO DAILY Ventolin Hfa (Albuterol Sulfate) 18 Gm Hfa.aer.ad 2 Puff INH QID PRN Oxycodone HCl 10 Mg Tablet 10 Mg PO Q12H PRN Ropinirole HCl 4 Mg Tablet 8 Mg PO HS TAKES 2 (4MG) TABS Buspirone HCl 5 Mg Tablet 5 Mg PO BID Pantoprazole Sodium 40 Mg Tablet.dr 40 Mg PO DAILY Carafate (Sucralfate) 1 Gm/10 Ml Oral.susp 10 Ml PO QIDACHS PRN Pregabalin 150 Mg Capsule 150 Mg PO BID PRN Ezetimibe 10 Mg Tablet 10 Mg PO DAILY Albuterol Sulfate 2.5 Mg/0.5 Ml Vial.neb 2.5 Mg INH Q4H PRN Metoprolol Succinate 50 Mg Tab.er.24h 50 Mg PO DAILY Duloxetine HCl 60 Mg Capsule.dr 60 Mg PO DAILY Nitroglycerin 0.4 Mg Tab.subl 0.4 Mg SL UD PRN Levothyroxine Sodium 112 Mcg Tablet 112 Mcg PO DAILY LAST FILLED 02-06-2021 #90/90 DAY SUPPLY Instructions to patient/family Please see electronic discharge instructions given to patient. MARY GORE MD June 22, 2020 11:53
--- NOTE | 2020-06-22 13:53 | Progress Note - Surgery ---
Subjective Time Seen by a Provider: 13:36 Subjective/Events-last exam Pt seen and examined, about to go home. Pt denies any abdominal pain and is moving around without difficulty. Review of Systems Pulmonary: No Dyspnea, No Cough Cardiovascular: No: Chest Pain, Palpitations Gastrointestinal: Diarrhea; No: Nausea, Vomiting, Abdominal Pain Objective Exam Vital Signs Date Time Temp Pulse Resp B/P (MAP) Pulse Ox O2 Delivery O2 Flow Rate FiO2 06/22/20 08:00 Nasal Cannula 06/22/20 08:00 35.6 84 18 163/71 (101) 94 Room Air 06/21/20 23:12 36.2 54 18 141/92 (108) 94 Room Air 06/21/20 22:11 35.8 06/21/20 20:15 94 Room Air 06/21/20 15:06 35.8 57 20 141/84 (103) 98 Room Air I & O 06/22/20 07:00 Intake Total 1940 ml Output Total 950 ml Balance 990 ml Capillary Refill : Less Than 3 Seconds General Appearance: No Apparent Distress, Obese HEENT: PERRL/EOMI Respiratory: Lungs Clear, Normal Breath Sounds, No Respiratory Distress Cardiovascular: Regular Rate, Rhythm, No Murmur Gastrointestinal: non tender, soft; No distended Neurologic/Psychiatric: Alert, Oriented x3 Results Lab Microbiology 06/18/20 Blood Culture - Preliminary, Resulted No growth 06/18/20 Urine Culture - Final, Complete Escherichia coli Assessment/Plan Assessment/Plan Assessment/Plan Covid - 19 positive C. Diff Colitis UTI N/V Hx of CA, HTN, CAD, PVD, COPD Pt is doing well and going home, she can follow up as an outpt. LEXUS NELSON DO June 22, 2020 13:53
--- NOTE | 2020-06-22 14:01 | Occ Therapy Progress Note ---
Therapy Progress Note Pt laying in bed, states plans to d/c home as soon as paperwork is finished. Pt states no concerns with her ability to complete ADLS at this time, feels like she is doing better than her typical PLOF, and she has caregiver assistance at home. No skilled OT services indicated at this time due to pt's reports of being at PLOF and no concerns with ADLs. Pt declines further OT services. D/C from OT at this time 1, visit 1350 JOANA TIERNEY OT June 22, 2020 14:01
[2020-06-22] MEDS ORDERED: FAMOTIDINE 20 MG (PEPCID) TABLET PO SCH (21:00)
== END 2020-06-22 14:57 | disposition home or self-care (01) ==
LOC: EDUNIT# 00:23 → ER 00:25 → INTOOBSV 01:35 → 4TH 01:35
PROVIDERS: ADMIT Internal Medicine; ATTEND Internal Medicine
DX: A04.71 Enterocolitis due to Clostridium difficile, recurrent (principal); N39.0 Urinary tract infection, site not specified; U07.1 COVID-19; J44.9 Chronic obstructive pulmonary disease, unspecified; C18.9 Malignant neoplasm of colon, unspecified; E66.9 Obesity, unspecified; J96.91 Respiratory failure, unspecified with hypoxia; I10 Essential (primary) hypertension; E78.00 Pure hypercholesterolemia, unspecified; I25.10 Atherosclerotic heart disease of native coronary artery without angina pectoris; I82.409 Acute embolism and thrombosis of unspecified deep veins of unspecified lower extremity; G89.29 Other chronic pain; M54.9 Dorsalgia, unspecified; E03.9 Hypothyroidism, unspecified; F41.9 Anxiety disorder, unspecified; F32.9 Major depressive disorder, single episode, unspecified; B96.20 Unspecified Escherichia coli [E. coli] as the cause of diseases classified elsewhere; Z79.51 Long term (current) use of inhaled steroids; Z79.890 Hormone replacement therapy; Z79.82 Long term (current) use of aspirin; Z79.899 Other long term (current) drug therapy; Z87.891 Personal history of nicotine dependence; Z90.49 Acquired absence of other specified parts of digestive tract
CPT/HCPCS: 51702; 71045; 74176; 80048 ×2; 80053; 81000; 82150; 83605; 83615; 83690; 83735; 84145; 85007; 85025 ×3; 85027; 85610; 85652; 85730; 86141; 87040; 87077; 87088; 87184; 93041; 97162; 99284; G0378; U0002; 36415; 87635

== ENCOUNTER → 2020-07-15 | Outpatient (CLI) | payer MEDICARE, MEDICAID ==
[~2020-07-15] MED LIST changes: +ALBU18HF2 INH; +BUSP5TAB59 PO; +LORA-404 PO; +METR-145 PO; +POTA10TA6 PO; +VANC125C5 PO
[2020-07-15 16:24] LABS: BASOPHILS # (AUTO) 0.1 10^3/uL (0.0-0.1); BASOPHILS % (AUTO) 1 % (0-10); EOSINOPHILS # (AUTO) 0.2 10^3/uL (0.0-0.3); EOSINOPHILS % (AUTO) 3 % (0-10); HEMATOCRIT 40 % (35-52); HEMOGLOBIN 12.3 g/dL (11.5-16.0); LYMPHOCYTES # (AUTO) 1.8 10^3/uL (1.0-4.0); LYMPHOCYTES % (AUTO) 26 % (12-44); MEAN CORPUSCULAR HEMOGLOBIN 28 pg (25-34); MEAN CORPUSCULAR HGB CONC 31 g/dL (32-36); MEAN CORPUSCULAR VOLUME 91 fL (80-99); MEAN PLATELET VOLUME 10.3 fL (9.0-12.2); MONOCYTES # (AUTO) 0.5 10^3/uL (0.0-1.0); MONOCYTES % (AUTO) 7 % (0-12); NEUTROPHILS # (AUTO) 4.2 10^3/uL (1.8-7.8); NEUTROPHILS % (AUTO) 61 % (42-75); PLATELET COUNT 250 10^3/uL (130-400); WHITE BLOOD COUNT 6.9 10^3/uL (4.3-11.0)
--- NOTE | 2020-07-15 16:43 | Diagnostic Imaging Report ---
INDICATION: Dyspnea PA and lateral views of the chest are obtained with comparison made to the study of 06/18/2020. Heart size and pulmonary vascularity are within normal limits. There is no evidence of pneumothorax or consolidation. Linear atelectasis or scarring is present in the left base. No significant pleural fluid is seen. Vertebral augmentations are again noted. There are coronary artery calcifications. IMPRESSION: Stable chest without acute abnormality identified. Dictated by: Dictated on workstation # [id number]
[2020-07-15 16:51] LABS: BAND NEUTROPHILS 1 %; BASOPHILS % (MANUAL) 2 %; EOSINOPHILS % (MANUAL) 3 %; LYMPHOCYTES % (MANUAL) 27 %; MONOCYTES % (MANUAL) 4 %; NEUTROPHILS % (MANUAL) 63 %; RBC MORPH NORMAL
== END ==
LOC: RAD 16:04
PROVIDERS: ATTEND Nurse Practitioner Family
DX: R06.00 Dyspnea, unspecified (principal)
CPT/HCPCS: 36415; 71046; 85007; 85027

== ENCOUNTER 2020-07-30 06:33 | Outpatient (CLI) | payer MEDICARE, MEDICAID ==
[~2020-07-30] VITALS: Ht 152.4 cm; Wt 72.3 kg
[2020-07-30] MEDS ORDERED: FAMO20TA3 PO (13:22)
[2020-07-30] MEDS ORDERED: LEVO100T7 PO (13:22)
[2020-07-30] MEDS ORDERED: LORA-404 PO (13:22)
[2020-07-30] MEDS ORDERED: DULO30CA49 PO (13:22)
[2020-07-30] MEDS ORDERED: ROPI1TAB PO (13:22)
[2020-07-30] MEDS ORDERED: PREG25CA19 PO (13:22)
== END 2020-07-30 13:26 | disposition home or self-care (01) ==
LOC: PREOP 06:33
PROVIDERS: ATTEND Specialist
DX: Z01.818 Encounter for other preprocedural examination (principal)

== ENCOUNTER 2020-08-07 10:55 | Day surgery (SDC) | payer MEDICARE, MEDICAID ==
[~2020-08-07] VITALS: Ht 152.4 cm; Wt 72.3 kg
[~2020-08-07 10:55] MED LIST changes: +DULO30CA49 PO; +FAMO20TA3 PO; -OMEP40CA27 PO; +OMEP40CA6 PO; +PREG25CA19 PO
[2020-08-07] MEDS ORDERED: MOXIFLOXACIN OPHTH SOLN 5 MG/ML 0.3 ML SYRINGE OP ONE (11:15)
[2020-08-07] MEDS ORDERED: TIMOLOL MALEATE 0.5% 5 ML (TIMOPTIC) BTL OU PRN (11:15)
[2020-08-07] MEDS ORDERED: LIDOCAINE PF 1% 2 ML VIAL IR PRN (11:15)
[2020-08-07] MEDS ORDERED: POVIDONE (BETADINE) OPHTH SOLN 5% 30 ML OP ONE (11:15)
[2020-08-07] MEDS: TETRACAINE 0.5% OPHTH SOLN 4 ML BTL (SINGLE DOSE ONLY) OU PRN ×4 (11:32→11:50)
[2020-08-07] MEDS: TROPICAMIDE 1% OPH SOLN (MYDRIACYL) 15 ML BTL OP SCH ×3 (11:38→11:50)
[2020-08-07] MEDS: PHENYLEPHRINE 10% OPHTH (NEO-SYN) 5 ML BTL OU SCH ×3 (11:38→11:50)
[2020-08-07 11:42] VITALS: BP 142/75
[2020-08-07] MEDS ORDERED: MIDAZOLAM 2 MG/2 ML (VERSED) VIAL ONE ×2 (12:02→14:44)
--- NOTE | 2020-08-07 12:32 | Ophthalmologist Pre-Op Note ---
Pre-Operative Progress Note H&P Reviewed The H&P was reviewed, patient examined and no changes noted. Date H&P Reviewed: Aug 07, 2020 Time H&P Reviewed: 12:32 Pre-Op Dx Cataract, Right Eye JACK ROBERTO MD Aug 07, 2020 12:32
--- NOTE | 2020-08-07 12:58 | Ophthalmology Operative Report ---
Cataract removal/placement IOL PREOPERATIVE DIAGNOSIS: Cataract Right Eye POSTOPERATIVE DIAGNOSIS: Cataract Right Eye PROCEDURE: Cataract removal and placement of posterior chamber implant, right eye SURGEON: Garret Roberto ANESTHESIA: Topical with sedation COMPLICATIONS: None ESTIMATED BLOOD LOSS: Minimal DESCRIPTION OF PROCEDURE: After proper informed consent was obtained, the patient, a 80 female, was taken to the Operating Room and the right eye was anesthetized with tetracaine. The right eye was then prepped and draped in the usual manner. A wire lid speculum was placed. A paracentesis was made at the left hand position. Preservative free lidocaine was injected into the anterior chamber followed by viscoelastic. A clear corneal incision was made in the temporal position. A capsulorrhexis was preformed and the central nuclear and cortical material were removed. The posterior capsule was polished and Sunny 22.0 AU00T0 IOL was placed into the capsular bag. The residual viscoelastic was aspirated and balanced saline solution was injected into the anterior chamber. Moxifloxacin was injected into the anterior chamber. The wound was checked and found to be water tight. The patient tolerated the procedure well without complications. GARRET ROBERTO MD Aug 07, 2020 12:58
[2020-08-07] MEDS ORDERED: acetaZOLAMIDE ER 500 MG CAP (DIAMOX SEQUELS) PO ONE (13:00)
--- NOTE | 2020-08-07 16:05 | Anesthesia-General Post-Op ---
MAC Patient Condition Mental Status/LOC: Same as Preop Cardiovascular: Satisfactory Nausea/Vomiting: Absent Respiratory: Satisfactory Pain: Controlled Complications: Absent Post Op Complications Complications None Follow Up Care/Instructions Patient Instructions None needed. Anesthesiology Discharge Order Discharge Order Patient was seen after the procedure and she was doing well, no complaints, stable vital signs, no apparent adverse anesthesia problems. CARMEN LEWIS 18, 2021 16:05
== END 2020-08-07 13:09 ==
LOC: SDC 10:55
PROVIDERS: ATTEND Specialist
DX: H25.11 Age-related nuclear cataract, right eye (principal); I10 Essential (primary) hypertension; F41.9 Anxiety disorder, unspecified; E03.9 Hypothyroidism, unspecified; M19.90 Unspecified osteoarthritis, unspecified site; J44.9 Chronic obstructive pulmonary disease, unspecified; Z79.51 Long term (current) use of inhaled steroids; Z79.899 Other long term (current) drug therapy
CPT/HCPCS: 66984; V2632

== ENCOUNTER 2020-09-07 05:56 | Outpatient (CLI) | payer MEDICARE, MEDICAID ==
[~2020-09-07] VITALS: Ht 167.6 cm; Wt 77.1 kg
[~2020-09-07 05:56] MED LIST changes: -SULF1TAB35 PO
[2020-09-07] MEDS ORDERED: LEVO112C4 PO (14:48)
[2020-09-07] MEDS ORDERED: DULO60CA59 PO (14:48)
[2020-09-07] MEDS ORDERED: LOTE5DRO7 OP (14:48)
[2020-09-07] MEDS ORDERED: DIPH1TAB25 PO ×2 (14:48→14:51)
[2020-09-07] MEDS ORDERED: FLUT9.9S NS (14:48)
[2020-09-07] MEDS ORDERED: FLUT1DIS26 IH (14:48)
[2020-09-07] MEDS ORDERED: ROPI4TAB5 PO (14:48)
[2020-09-07] MEDS ORDERED: PANT40TA52 PO (14:48)
[2020-09-07] MEDS ORDERED: TEMA15CA PO (14:48)
[2020-09-07] MEDS ORDERED: PREG150C46 PO (14:48)
[2020-09-07] MEDS ORDERED: POTA10TA36 PO (14:48)
[2020-09-07] MEDS ORDERED: MIRA50TA PO (14:48)
[2020-09-07] MEDS ORDERED: LORA-405 PO (14:48)
[2020-09-07] MEDS ORDERED: MONT10TA32 PO (14:48)
[2020-09-07] MEDS ORDERED: DICY10CA12 PO (14:48)
[2020-09-07] MEDS ORDERED: BUSP5TAB59 PO (14:48)
[2020-09-07] MEDS ORDERED: OFLO5DRO3 OP (14:48)
[2020-09-07] MEDS ORDERED: LORA10TA7 PO (14:48)
[2020-09-07] MEDS ORDERED: OXYC-556 PO ×2 (14:48→14:51)
== END 2020-09-07 15:00 | disposition home or self-care (01) ==
LOC: PREOP 05:56
PROVIDERS: ATTEND Surgery
DX: Z01.818 Encounter for other preprocedural examination (principal)

== ENCOUNTER 2020-09-28 08:55 | Day surgery (SDC) | payer MEDICARE, MEDICAID ==
[~2020-09-28] VITALS: Ht 167.6 cm; Wt 77.1 kg
[~2020-09-28 08:55] MED LIST changes: +DIPH1TAB25 PO; +LEVO112C4 PO; +LORA10TA7 PO; +LOTE5DRO7 OP; +MONT10TA32 PO; +OFLO5DRO3 OP; +POTA10TA36 PO
[2020-09-28] MEDS ORDERED: LACTATED RINGERS 1,000 ML IV STA (08:56)
[2020-09-28] MEDS ORDERED: LACTATED RINGERS 1,000 ML IV ONE (08:59)
[2020-09-28] MEDS ORDERED: MIDAZOLAM 2 MG/2 ML (VERSED) VIAL ONE (09:07)
[2020-09-28] MEDS ORDERED: PROPOFOL INJECTION 50 ML IV ONE (09:07)
--- NOTE | 2020-09-28 09:07 | Progress Note-Pre Operative ---
Pre-Operative Progress Note H&P Reviewed The H&P was reviewed, patient examined and no changes noted. Time Seen by Provider: 09:05 Date H&P Reviewed: Sep 28, 2020 Time H&P Reviewed: 09:05 Pre-Operative Diagnosis: Surveillance colonoscopy, hx of colon CA LEXUS NELSON DO Sep 28, 2020 09:07
[2020-09-28 09:34] VITALS: BP 98/58
[2020-09-28 09:35] VITALS: BP 98/52
[2020-09-28 09:40] VITALS: BP 100/56
--- NOTE | 2020-09-28 09:40 | Progress Note-Post Operative ---
Post-Operative Progess Note Surgeon (s)/Knife Blade Polisher (s) Surgeon LEXUS NELSON DO Knife Blade Polisher: ARNAUD Fairchild Pre-Operative Diagnosis Surveillance colonoscopy, hx of colon CA Post-Operative Diagnosis same Procedure & Operative Findings Date of Procedure 09/28/20 Procedure Performed/Findings PROCEDURE NOTE: After informed consent was obtained, the patient was brought to the endoscopy suite, placed in bed in left lateral decubitus position. She was administered IV sedation by the LOADING SHOVEL OILER who then monitored her vitals the entire time, heart rate, blood pressure and pulse ox and the scope was inserted, pushed all the way to the anastomosis appx 100 cm and pushed into the cecum, took a picture of the anastomosis and then slowly withdrew the scope insufflating to look circumferentially at the disla. From the anastomosis back down the colon; probably hepatic flexure and then down the transverse colon to the splenic flexure, into the descending colon down in the sigmoid and then saw another anastomosis; took a picture of this and finally into the rectal vault. Took picture of the internal hemorrhoids on the way out. No polyps or diverticula seen. The patient tolerated the procedure. She was recovered in endoscopy suite. Anesthesia Type IV sedation by LOADING SHOVEL OILER Estimated Blood Loss Estimated blood loss (mL): none Specimens/Packing Specimens Removed none LEXUS NELSON DO Sep 28, 2020 09:40
--- NOTE | 2020-09-28 09:41 | Endoscopy Discharge Instruct ---
Endo Procedure/Findings Findings 1.: Internal Hemorrhoids Discharge Instructions - Activity: You might feel a little sleepy until tomorrow. This is due to the me dicine you received to relax you. Until tomorrow, you should: NOT drive a car, operate machinery or power tools. NOT drink any alcoholic beverages. NOT make any important decisions or sign importortant papers. Do not return to work until tomorrow, unless otherwise instructed. Resume previous activities tomorrow. Diet: Start by taking liquids. If you tolerate liquids, advance to solid food. 1.: Colonscopy in 3 years Notify Physician - If you experience excessive bleeding, unusual abdominal pain, fever, or chest pain, contact your doctor immediately. LEXUS NELSON DO Sep 28, 2020 09:41
[2020-09-28 09:45] VITALS: BP 120/56
[2020-09-28 09:50] VITALS: BP 120/56
[2020-09-28 10:05] VITALS: BP 119/58
--- NOTE | 2020-09-28 12:24 | Anesthesia-General Post-Op ---
MAC Patient Condition Mental Status/LOC: Same as Preop Cardiovascular: Satisfactory Nausea/Vomiting: Absent Respiratory: Satisfactory Pain: Controlled Complications: Absent Post Op Complications Complications None Follow Up Care/Instructions Patient Instructions None needed. Anesthesiology Discharge Order Discharge Order Patient is doing well, no complaints, stable vital signs, no apparent adverse anesthesia problems. No complications reported per nursing. ALEJO MILLER CRNA Sep 28, 2020 12:23
== END 2020-09-28 10:10 | disposition home or self-care (01) ==
LOC: ENDO 08:55
PROVIDERS: ATTEND Surgery
DX: Z12.11 Encounter for screening for malignant neoplasm of colon (principal); I25.10 Atherosclerotic heart disease of native coronary artery without angina pectoris; I10 Essential (primary) hypertension; G47.33 Obstructive sleep apnea (adult) (pediatric); J44.9 Chronic obstructive pulmonary disease, unspecified; K21.9 Gastro-esophageal reflux disease without esophagitis; E03.9 Hypothyroidism, unspecified; I73.9 Peripheral vascular disease, unspecified; E78.00 Pure hypercholesterolemia, unspecified; F41.9 Anxiety disorder, unspecified; Z85.038 Personal history of other malignant neoplasm of large intestine; Z98.0 Intestinal bypass and anastomosis status; Z79.82 Long term (current) use of aspirin; Z79.890 Hormone replacement therapy; Z79.899 Other long term (current) drug therapy; Z79.02 Long term (current) use of antithrombotics/antiplatelets; Z79.891 Long term (current) use of opiate analgesic; Z87.891 Personal history of nicotine dependence; Z90.710 Acquired absence of both cervix and uterus; Z90.89 Acquired absence of other organs

== ENCOUNTER → 2020-10-06 | Outpatient (CLI) | payer MEDICARE, MEDICAID ==
[2020-10-06 11:07] LABS: BASOPHILS # (AUTO) 0.1 10^3/uL (0.0-0.1); BASOPHILS % (AUTO) 1 % (0-10); EOSINOPHILS # (AUTO) 0.3 10^3/uL (0.0-0.3); EOSINOPHILS % (AUTO) 3 % (0-10); HEMATOCRIT 38 % (35-52); HEMOGLOBIN 12.5 g/dL (11.5-16.0); LYMPHOCYTES # (AUTO) 1.9 10^3/uL (1.0-4.0); LYMPHOCYTES % (AUTO) 25 % (12-44); MEAN CORPUSCULAR HEMOGLOBIN 30 pg (25-34); MEAN CORPUSCULAR HGB CONC 33 g/dL (32-36); MEAN CORPUSCULAR VOLUME 92 fL (80-99); MEAN PLATELET VOLUME 10.1 fL (9.0-12.2); MONOCYTES # (AUTO) 0.5 10^3/uL (0.0-1.0); MONOCYTES % (AUTO) 7 % (0-12); NEUTROPHILS # (AUTO) 4.5 10^3/uL (1.8-7.8); NEUTROPHILS % (AUTO) 62 % (42-75); PLATELET COUNT 283 10^3/uL (130-400); WHITE BLOOD COUNT 7.4 10^3/uL (4.3-11.0)
[2020-10-06 11:26] LABS: ALBUMIN 3.6 GM/DL (3.2-4.5); BILIRUBIN,TOTAL 0.4 MG/DL (0.1-1.0); CALCIUM 9.5 MG/DL (8.5-10.1); CREATININE SERUM 0.85 MG/DL (0.60-1.30); POTASSIUM 3.5 MMOL/L (3.6-5.0); TOTAL PROTEIN 6.1 GM/DL (6.4-8.2)
== END ==
LOC: ONC 10:52
PROVIDERS: ATTEND Internal Medicine Hematology & Oncology
DX: C18.9 Malignant neoplasm of colon, unspecified (principal); D50.0 Iron deficiency anemia secondary to blood loss (chronic); M54.9 Dorsalgia, unspecified; G89.29 Other chronic pain; K43.9 Ventral hernia without obstruction or gangrene; I10 Essential (primary) hypertension; J44.9 Chronic obstructive pulmonary disease, unspecified; Z99.3 Dependence on wheelchair; Z87.891 Personal history of nicotine dependence; Z86.718 Personal history of other venous thrombosis and embolism; Z79.82 Long term (current) use of aspirin; Z79.899 Other long term (current) drug therapy
CPT/HCPCS: 80053; 82378; 82728; 83540; 83550; 85025; G0463; 99213

== ENCOUNTER 2020-10-21 12:17 | Emergency (ER) | payer MEDICARE, MEDICAID ==
[~2020-10-21] VITALS: Ht 152.4 cm; Wt 77.1 kg
[2020-10-21] MEDS ORDERED: NS IV 1000 ML 1,000 ML IV STA (12:55)
[2020-10-21 12:57] LABS: BASOPHILS # (AUTO) 0.1 10^3/uL (0.0-0.1); BASOPHILS % (AUTO) 1 % (0-10); EOSINOPHILS # (AUTO) 0.3 10^3/uL (0.0-0.3); EOSINOPHILS % (AUTO) 4 % (0-10); HEMATOCRIT 42 % (35-52); HEMOGLOBIN 13.7 g/dL (11.5-16.0); LYMPHOCYTES # (AUTO) 1.9 10^3/uL (1.0-4.0); LYMPHOCYTES % (AUTO) 26 % (12-44); MEAN CORPUSCULAR HEMOGLOBIN 30 pg (25-34); MEAN CORPUSCULAR HGB CONC 32 g/dL (32-36); MEAN CORPUSCULAR VOLUME 93 fL (80-99); MEAN PLATELET VOLUME 10.6 fL (9.0-12.2); MONOCYTES # (AUTO) 0.5 10^3/uL (0.0-1.0); MONOCYTES % (AUTO) 7 % (0-12); NEUTROPHILS # (AUTO) 4.6 10^3/uL (1.8-7.8); NEUTROPHILS % (AUTO) 61 % (42-75); PLATELET COUNT 295 10^3/uL (130-400); WHITE BLOOD COUNT 7.4 10^3/uL (4.3-11.0)
[2020-10-21 13:08] LABS: ALBUMIN 3.9 GM/DL (3.2-4.5); POTASSIUM 3.5 MMOL/L (3.6-5.0)
[2020-10-21 13:09] LABS: CALCIUM 9.8 MG/DL (8.5-10.1)
[2020-10-21 13:11] LABS: TOTAL PROTEIN 6.7 GM/DL (6.4-8.2)
[2020-10-21 13:12] LABS: BILIRUBIN,TOTAL 0.4 MG/DL (0.1-1.0)
[2020-10-21 13:14] LABS: CREATININE SERUM 0.83 MG/DL (0.60-1.30)
[2020-10-21 13:15] LABS: INR 0.9 (0.8-1.4); PROTHROMBIN TIME PATIENT 12.7 SEC (12.2-14.7)
[2020-10-21 13:22] LABS: BILIRUBIN,URINE NEGATIVE (NEGATIVE); CLARITY,URINE CLEAR; COLOR,URINE YELLOW; GLUCOSE, URINE (UA) NEGATIVE (NEGATIVE); KETONES,URINE NEGATIVE (NEGATIVE); LEUKOCYTE ESTERASE ,URINE 1+ (NEGATIVE); NITRITE,URINE POSITIVE (NEGATIVE); PROTEIN,URINE NEGATIVE (NEGATIVE)
[2020-10-21 13:26] LABS: ERYTHROCYTE SEDIMENTATION RATE 8 MM/HR (0-30)
[2020-10-21 13:43] LABS: BACTERIA,URINE LARGE /HPF; CALCIUM OXALATE CRYSTALS,UR RARE /LPF; WBC,URINE 50-100 /HPF
--- NOTE | 2020-10-21 13:46 | ED General ---
General Chief Complaint: Respiratory Problems Stated Complaint: SOB History of Present Illness Date Seen by Provider: Oct 21, 2020 Time Seen by Provider: 12:21 Initial Comments 80-year-old female presents via EMS for shortness of breath. However upon inquiry the patient states her main complaint is irritation in her right eye. She has COPD and wears O2 per nasal cannula at 3 L chronically. Her SaO2 on presentation is 100%. She is able to maintain 92% or higher at 1 L. We are keeping her at 1 L per nasal cannula. She reports approximately 2 weeks ago that she used her nebulized albuterol solution and inserted it into her right eye instead of her cataract drops. She was supposed to see her sprayer leather but decided to call poison control and they told her just to irrigate her eye. Since then her right eye has been irritated and having clear tears on occasion. She denies any chest pain. She also reports over the last 2 to 3 weeks that her caregiver and son have noticed her speech to be slurred at times and difficult to understand. She has had no previous CVA. She has no facial drooping or weakness in either upper or lower extremity. She is alert and oriented. speech is comprehensible. but there is a delay in her answering some questions. Timing/Duration: Intermittent Severity: Mild Associated Systoms: No Chest Pain, No Cough, No Fever/Chills, No Nausea/Vomiting; Shortness of Air (chronic); No Syncope, No Weakness Allergies and Home Medications Allergies Coded Allergies: sulfamethoxazole (Verified Allergy, Intermediate, Vomiting, 09/09/19) trimethoprim (Verified Allergy, Intermediate, Vomiting, 09/09/19) erythromycin base (Verified Allergy, Unknown, 09/09/19) quinine (Verified Allergy, Unknown, 09/09/19) cephalexin (Verified Adverse Reaction, Severe, CONFUSION, DIZZINESS, 03/04/20) Home Medications Albuterol Sulfate 2.5 Mg/0.5 Ml Vial.neb, 2.5 MG INH Q4H PRN for WHEEZING, (Reported) Albuterol Sulfate 18 Gm Hfa.aer.ad, 2 PUFF INH QID PRN for SHORTNESS OF BREATH, (Reported) Aspirin 81 Mg Tablet.dr, 81 MG PO DAILY, (Reported) Buspirone HCl 5 Mg Tablet, 5 MG PO BID, (Reported) Ciprofloxacin HCl 500 Mg Tablet, 500 MG PO BID Prescribed by: ALIZA HENRY on 10/21/20 1454 Clopidogrel Bisulfate 75 Mg Tablet, 75 MG PO DAILY, (Reported) Dicyclomine HCl 10 Mg Capsule, 10 MG PO QID PRN for PAIN-MILD (1-4), (Reported) Diphenoxylate HCl/Atropine 1 Each Tablet, 1 EACH PO UD, (Reported) TAKE ONE TABLET BY MOUTH AFTER EACH LOOSE STOOL, MAX EIGHT PER DAY Duloxetine HCl 60 Mg Capsule.dr, 60 MG PO DAILY, (Reported) Ezetimibe 10 Mg Tablet, 10 MG PO DAILY, (Reported) Fluticasone Propionate 9.9 Ml [place].susp, 2 SPRAY NS DAILY, (Reported) 2 SPRAYS PER NOSTRIL DAILY X 2 DAYS THEN 1 SPRAY DAILY Fluticasone/Salmeterol 1 Each Blst.w.dev, 1 EACH IH BID, (Reported) Furosemide 20 Mg Tablet, 20 MG PO DAILY, (Reported) Levothyroxine Sodium 112 Mcg Capsule, 112 MCG PO DAILY, (Reported) Loratadine 10 Mg Tablet, 10 MG PO DAILY, (Reported) Lorazepam 1 Mg Tablet, 1 MG PO TID PRN for ANXIETY, (Reported) Loteprednol Etabonate 5 Gm Drops.gel, 5 GM OP DAILY, (Reported) Metoprolol Succinate 50 Mg Tab.er.24h, 50 MG PO DAILY, (Reported) Mirabegron 50 Mg Tab.er.24h, 50 MG PO DAILY, (Reported) Montelukast Sodium 10 Mg Tablet, 10 MG PO DAILY, (Reported) Multivitamin with Minerals 1 Each Tablet, 1 EACH PO DAILY, (Reported) Nitroglycerin 0.4 Mg Tab.subl, 0.4 MG SL UD PRN for CHEST PAIN, (Reported) Ofloxacin 5 Ml Drops, 5 ML OP DAILY, (Reported) Oxycodone HCl/Acetaminophen 1 Each Tablet, 1 EACH PO Q4H PRN for PAIN-MODERATE (5-7), (Reported) Pantoprazole Sodium 40 Mg Tablet.dr, 40 MG PO DAILY, (Reported) Potassium Chloride 10 Meq Tab.er.prt, 10 MEQ PO DAILY, (Reported) Pregabalin 150 Mg Capsule, 150 MG PO BID, (Reported) Ropinirole HCl 4 Mg Tablet, 8 MG PO HS, (Reported) Temazepam 15 Mg Capsule, 30 MG PO DAILY, (Reported) Patient Home Medication List Home Medication List Reviewed: Yes Review of Systems Review of Systems Constitutional: no symptoms reported, see HPI EENTM: see HPI, tearing; No blurred vision, No double vision, No eye pain Respiratory: see HPI, short of breath (chronic, not worse than baseline) Gastrointestinal: no symptoms reported, see HPI All Other Systems Reviewed Negative Unless Noted: Yes Past Eiiaocv-Psdfjh-Zlbxdd Hx Immunizations Up To Date Tetanus Booster (TDap): Unknown PED Vaccines UTD: No Seasonal Allergies Seasonal Allergies: Yes Past Medical History Surgeries: Yes (R LEG HEATHER/HIP PIN; BACK-KYPHOPLASTY X3;HIATAL HERNIA X3;COLOSTOMY/REVERSAL) Abdominal, Appendectomy, Bladder Surgery, Bowel Surgery, Cardiac, Coronary Stent, Hysterectomy, Oophorectomy, Orthopedic, Tonsillectomy Respiratory: Yes (O2 AT 3L/NC CONTINUOUSLY) Pulmonary Embolism, Sleep Apnea, COPD Currently Using CPAP: No Currently Using BIPAP: No Cardiac: Yes (CARDIAC CATH WITH STENTS X 2;) Chronic Edema/Swelling, Coronary Artery Disease, Deep Vein Thrombosis, Heart A ttack, High Cholesterol, Hypertension, Peripheral Vascular Neurological: Yes (COGNITIVE IMPAIRMENT/POOR MEMORY) Vertigo 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 Disorders: 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, Menopausal Sexually Transmitted Disease: No HIV/AIDS: No Genitourinary: Yes (INCONTINENCE) Kidney Infection, Bladder Infection, UTI-Chronic Gastrointestinal: Yes (COLON CANCER DX 08/2019) Abdominal Hernia, Gastroesophageal Reflux, Diverticulosis, Esophagitis Musculoskeletal: Yes (FALLS, USES A WALKER;COMPRESSION FRACTURES; RIGHT HIP FRACTURE) Degenerate Disk Disease, Osteoporosis, Arthritis, Chronic Back Pain, Fractures Endocrine: Yes Hypothyroidsim HEENT: Yes ( DENTURES) Dysphagia Loss of Vision: Denies Hearing Impairment: Denies Cancer: Yes Colon Did You Recieve Any Treatments: Yes What Type of Treatment Did You: Surgical Intervention Psychosocial: Yes (RX DRUG ABUSE) Anxiety, Depression Integumentary: No Blood Disorders: Yes (ANEMIA) Adverse Reaction/Blood Tranf: No (HAS HAD BLOOD WITH NO REACTION) Family Medical History Reviewed Nursing Family Hx Family history: Hypertension G8 BROTHER Myocardial infarction 19 MOTHER G8 BROTHER Heart Disease, Hypertension SOCIAL HISTORY: -ETOH--OCCASIONAL USE IN PAST -DRUGS--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 GUZMAN IN [place] -RIGHT HEMICOLECTOMY/SMALL BOWEL RESECTION/LYSIS OF ADHESIONS/MULTIPLE FOREIGN BODIES REMOVED ( CORKSCREW TACKS FROM PREVIOUS HERNIA MESH ) 09/12/[address] NELSON -CYSTOSCOPY WITH BOTOX INJECTIONS 07/09/[address] MCDONALD. -MULTIPLE HERNIA REPAIRS WITH MESH -MULTIPLE EGD'S/COLONOSCOPIES/DILATIONS OF ESOPHAGEAL STRICTURES -CARDIAC CATHS--STENTS X 2 -KYPHOPLASTIES -APPENDECTOMY -RIGHT HIP FRACTURE ORIF WITH PIN IN HIP AND HEATHER IN [place] 03/2016 -HYSTERECTOMY/BILATERAL SALPINGO-OOPHORECTOMY -TONSILLECTOMY ADDITIONAL PAST MEDICAL HISTORY: -HAS 24 HOUR IN-HOME CARETAKERS -FREQUENT FALLS--USES A WALKER -RESTLESS LEG SYNDROME -RIGHT [place]UMBO'S CYST -MULTIPLE COMPRESSION FRACTURES WITH KYPHOPLASTIES -CHRONIC DYSPHAGIA -CHRONIC ABDOMINAL PAIN COMPLAINTS -HAS Physical Exam Vital Signs Vital Signs - First Documented 10/21/20 12:21 Temp 36.6 Pulse 61 Resp 20 B/P (MAP) 166/90 (115) Pulse Ox 99 O2 Delivery Nasal Cannula O2 Flow Rate 3.00 Capillary Refill : Height, Weight, BMI Height: 5'2.00" Weight: 163lbs. 0.0oz. 73.937651el; 27.44 BMI Method:Stated General Appearance: No Apparent Distress, WD/WN Eyes: Right Eye Other (clear tearing, minimal); Bilateral Eye Normal Inspection, Bilateral Eye PERRL, Bilateral Eye EOMI HEENT: PERRL/EOMI, TMs Normal, Normal ENT Inspection, Pharynx Normal Neck: Full Range of Motion, Normal Inspection, Non Tender, Supple Respiratory: Chest Non Tender, Lungs Clear, Normal Breath Sounds Cardiovascular: Regular Rate, Rhythm, No Edema, No Murmur Gastrointestinal: Normal Bowel Sounds, Non Tender, Soft Neurologic/Psychiatric: Alert, Oriented x3, No Motor/Sensory Deficits, Normal Mood/Affect Skin: Normal Color, Warm/Dry Progress/Results/Core Measures Suspected Sepsis SIRS Temperature: Pulse: Respiratory Rate: Laboratory Tests 10/21/20 12:40: White Blood Count 7.4 Blood Pressure / Mean: Laboratory Tests 10/21/20 12:40: Creatinine 0.83, INR Comment 0.9, Platelet Count 295, Total Bilirubin 0.4 Results/Orders Lab Results Laboratory Tests Test 10/21/20 12:34 10/21/20 12:40 10/21/20 13:09 Range/Units Influenza Type A (RT-PCR) Not Detected Not Detecte Influenza Type B (RT-PCR) Not Detected Not Detecte SARS-CoV-2 RNA (RT-PCR) Not Detected Not Detecte White Blood Count 7.4 4.3-11.0 10^3/uL Red Blood Count 4.54 3.80-5.11 10^6/uL Hemoglobin 13.7 11.5-16.0 g/dL Hematocrit 42 35-52 % Mean Corpuscular Volume 93 80-99 fL Mean Corpuscular Hemoglobin 30 25-34 pg Mean Corpuscular Hemoglobin Concent 32 32-36 g/dL Red Cell Distribution Width 14.9 H 10.0-14.5 % Platelet Count 295 130-400 10^3/uL Mean Platelet Volume 10.6 9.0-12.2 fL Immature Granulocyte % (Auto) 2 % Neutrophils (%) (Auto) 61 42-75 % Lymphocytes (%) (Auto) 26 12-44 % Monocytes (%) (Auto) 7 0-12 % Eosinophils (%) (Auto) 4 0-10 % Basophils (%) (Auto) 1 0-10 % Neutrophils # (Auto) 4.6 1.8-7.8 10^3/uL Lymphocytes # (Auto) 1.9 1.0-4.0 10^3/uL Monocytes # (Auto) 0.5 0.0-1.0 10^3/uL Eosinophils # (Auto) 0.3 0.0-0.3 10^3/uL Basophils # (Auto) 0.1 0.0-0.1 10^3/uL Immature Granulocyte # (Auto) 0.2 H 0.0-0.1 10^3/uL Erythrocyte Sedimentation Rate 8 0-30 MM/HR Prothrombin Time 12.7 12.2-14.7 SEC INR Comment 0.9 0.8-1.4 Activated Partial Thromboplast Time 26 24-35 SEC Sodium Level 138 135-145 MMOL/L Potassium Level 3.5 L 3.6-5.0 MMOL/L Chloride Level 102 98-107 MMOL/L Carbon Dioxide Level 27 21-32 MMOL/L Anion Gap 9 5-14 MMOL/L Blood Urea Nitrogen 13 7-18 MG/DL Creatinine 0.83 0.60-1.30 MG/DL Estimat Glomerular Filtration Rate 66 BUN/Creatinine Ratio 16 Glucose Level 113 H 70-105 MG/DL Calcium Level 9.8 8.5-10.1 MG/DL Corrected Calcium 9.9 8.5-10.1 MG/DL Total Bilirubin 0.4 0.1-1.0 MG/DL Aspartate Amino Transf (AST/SGOT) 14 5-34 U/L Alanine Aminotransferase (ALT/SGPT) 18 0-55 U/L Alkaline Phosphatase 90 40-136 U/L C-Reactive Protein High Sensitivity 0.16 0.00-0.50 MG/DL B-Type Natriuretic Peptide 64.7 <100.0 PG/ML Total Protein 6.7 6.4-8.2 GM/DL Albumin 3.9 3.2-4.5 GM/DL Urine Color YELLOW Urine Clarity CLEAR Urine pH 6.0 5-9 Urine Specific [place] 1.025 H 1.016-1.022 Urine Protein NEGATIVE NEGATIVE Urine Glucose (UA) NEGATIVE NEGATIVE Urine Ketones NEGATIVE NEGATIVE Urine Nitrite POSITIVE H NEGATIVE Urine Bilirubin NEGATIVE NEGATIVE Urine Urobilinogen 0.2 < = 1.0 MG/DL Urine Leukocyte Esterase 1+ H NEGATIVE Urine RBC (Auto) TRACE-I NEGATIVE Urine RBC 2-5 H /HPF Urine WBC 50-100 H /HPF Urine Crystals PRESENT H /LPF Urine Calcium Oxalate Crystals RARE H /LPF Urine Bacteria LARGE H /HPF Urine Casts NONE /LPF Urine Mucus NEGATIVE /LPF Urine Culture Indicated YES My Orders Orders - ALIZA HENRY Cbc With Automated Diff (10/21/20 12:39) Comprehensive Metabolic Panel (10/21/20 12:39) Hs C Reactive Protein (10/21/20 12:39) Erythrocyte Sedimentation Rate (10/21/20 12:39) Chest 1 View, Ap/Pa Only (10/21/20 12:39) Covid 19 Inhouse Test (10/21/20 12:39) Influenza A And B By Pcr (10/21/20 12:39) BNP (10/21/20 12:39) Ua Culture If Indicated (10/21/20 12:39) Ns Iv 1000 Ml (Sodium Chloride 0.9%) (10/21/20 12:55) Tramadol Tablet (Ultram Tablet) (10/21/20 12:59) Protime With Inr (10/21/20 13:04) Partial Thromboplastin Time (10/21/20 13:04) Ct Head Wo (10/21/20 13:35) Urine Culture (10/21/20 13:09) Vital Signs/I&O 10/21/20 10/21/20 10/21/20 12:21 12:21 15:10 Temp 36.6 Pulse 61 56 Resp 20 18 B/P (MAP) 166/90 (115) 151/77 Pulse Ox 99 100 O2 Delivery Nasal Cannula Nasal Cannula Nasal Cannula O2 Flow Rate 3.00 3.00 1.00 Capillary Refill : Progress Note : Time: 12:21 Progress Note Patient evaluated, will obtain labs, chest x-ray and give normal saline 1 L per IV. NIH 0. 1315 Covid test negative, will get CT of head. She continues to have no neurological deficits. 1400 UA shows urinary tract infection. Patient does report she has been having mild symptoms of the UTI. Talk to the patient's daughter by phone. She is agreeable to come transport the patient home. Patient has no complaints at this time. 1430 discharge instructions and return precautions reviewed with the patient. Diagnostic Imaging Diagonstic Imaging: Xray Plain Films/CT/US/NM/MRI: chest Comments NAME: [facility] REC#: [id number] PT STATUS: REG ER : 1940 PHYSICIAN: ALIZA HENRY ADMIT DATE: 10/21/20/ER Draft Date of Exam:10/21/20 CHEST 1 VIEW, AP/PA ONLY INDICATION: Shortness of breath. TIME OF EXAM: 01:41 p.m. COMPARISON: Correlation is made with prior chest from 06/18/2020. FINDINGS: Heart size is stable. There is ectasia and tortuosity of the descending thoracic aorta. There are calcified lymph nodes in the mediastinum. Lower thoracic kyphoplasty changes are noted. There is no infiltrate, effusion, or pneumothorax. IMPRESSION: Stable chest. No acute cardiopulmonary process is detected. Dictated on workstation # [id number] Dict: 10/21/20 1341 Trans: 10/21/20 1344 AS [id number] Interpreted by: MARTINEZ NAPIER MD Electronically signed by: Reviewed: Reviewed by Me Diagonstic Imaging: CT Plain Films/CT/US/NM/MRI: head Comments NAME: [facility] REC#: [id number] PT STATUS: REG ER : 1940 PHYSICIAN: ALIZA HENRY ADMIT DATE: 10/21/20/ER Draft Date of Exam:10/21/20 CT HEAD WO Indication: Slurred speech x2 weeks TECHNIQUE: Multiple contiguous axial images were obtained through the brain without the use of intravenous contrast. Auto Exposure Controls were utilized during the CT exam to meet ALARA standards for radiation dose reduction. Brain CT is performed without contrast and compared to 03/04/2020. There are diffuse atrophic changes. There are patchy low-density changes in deep white matter compatible with chronic ischemic change. There is no subdural or epidural collection. The ventricles are normal in size and position. Calvarial windows are unremarkable. IMPRESSION: Atrophic change with chronic ischemic changes in deep white matter. No acute intracranial finding. Dictated on workstation # [id number] Dict: 10/21/20 1407 Trans: 10/21/20 1409 [facility] [id number] Interpreted by: LIANA FERNANDES MD Electronically signed by: Departure Impression Primary Impression: UTI (urinary tract infection) Qualified Codes: N30.01 - Acute cystitis with hematuria Additional Impressions: Irritation of right eye COPD (chronic obstructive pulmonary disease) Qualified Codes: J44.9 - Chronic obstructive pulmonary disease, unspecified Disposition: HOME, SELF-CARE Condition: Stable Departure-Patient Inst. Decision time for Depature: 14:00 Referrals: TORIBIO FOFANA DO (PCP/Family) Primary Care Physician Patient Instructions: Chemical Eye Injury (DC), Urinary Tract Infection, Adult (DC) Add. Discharge Instructions: Artificial tears to right eye, 3-4 drops every 2 hours, as needed. Take antibiotics as prescribed. Increase water intake. Follow-up with your primary care provider if symptoms are not improving or worsen. Return to the emergency department for new, urgent healthcare needs. All discharge instructions reviewed with patient and/or family. Voiced understanding. Scripts Ciprofloxacin HCl (Ciprofloxacin HCl) 500 Mg Tablet 500 MG PO BID, #14 TAB Prov: ALIZA HNERY 10/21/20 ALIZA HENRY Oct 21, 2020 13:46
--- NOTE | 2020-10-21 14:09 | Diagnostic Imaging Report ---
Indication: Slurred speech x2 weeks TECHNIQUE: Multiple contiguous axial images were obtained through the brain without the use of intravenous contrast. Auto Exposure Controls were utilized during the CT exam to meet ALARA standards for radiation dose reduction. Brain CT is performed without contrast and compared to 03/04/2020. There are diffuse atrophic changes. There are patchy low-density changes in deep white matter compatible with chronic ischemic change. There is no subdural or epidural collection. The ventricles are normal in size and position. Calvarial windows are unremarkable. IMPRESSION: Atrophic change with chronic ischemic changes in deep white matter. No acute intracranial finding. Dictated by: Dictated on workstation # [id number]
[2020-10-21] MEDS ORDERED: CIPR500T5 PO (14:54)
[2020-10-21 15:10] VITALS: BP 151/77
== END 2020-10-21 15:10 | disposition home or self-care (01) ==
LOC: ER 12:18
DX: N39.0 Urinary tract infection, site not specified (principal); H57.89 Other specified disorders of eye and adnexa; J44.9 Chronic obstructive pulmonary disease, unspecified; G47.30 Sleep apnea, unspecified; I25.2 Old myocardial infarction; I10 Essential (primary) hypertension; E78.00 Pure hypercholesterolemia, unspecified; K21.9 Gastro-esophageal reflux disease without esophagitis; E03.9 Hypothyroidism, unspecified; F41.9 Anxiety disorder, unspecified; F32.9 Major depressive disorder, single episode, unspecified; Z20.822 Contact with and (suspected) exposure to COVID-19; Z86.711 Personal history of pulmonary embolism; Z86.718 Personal history of other venous thrombosis and embolism; Z79.82 Long term (current) use of aspirin; Z79.01 Long term (current) use of anticoagulants; Z79.899 Other long term (current) drug therapy; Z79.890 Hormone replacement therapy
CPT/HCPCS: 36415; 70450; 71045; 80053; 81000; 83880; 85025; 85610; 85652; 85730; 86141; 87077; 87088; 87636

== ENCOUNTER → 2020-11-24 | Outpatient (CLI) | payer MEDICARE, MEDICAID ==
[~2020-11-24] MED LIST changes: +HOLD METFORMIN - RECEIVED CONTRAST 20 ML VIAL IV SCH; +IOHEXOL 350 MG/ML 100 ML (OMNIPAQUE 350) VIAL IV ONE; +NS 100 ML (IVPB) BAG IV ONE
--- NOTE | 2020-11-24 14:36 | Diagnostic Imaging Report ---
EXAMINATION: CT abdomen and pelvis with intravenous contrast. TECHNIQUE: Multiple contiguous axial images were obtained through the abdomen and pelvis after the uneventful administration of intravenous contrast. All CT scans use one or more of the following dose optimizing techniques: automated exposure control, MA and/or KvP adjustment based on patient size and exam type or iterative reconstruction. HISTORY: Lower abdominal pain. History of colon cancer. COMPARISON: 06/18/2020. FINDINGS: The heart is unremarkable. The included lung bases are clear. There is hepatic steatosis. Focal fatty sparing is seen along the gallbladder fossa. No focal hepatic lesions are seen. The gallbladder is unremarkable. The portal vein is patent. There is fatty atrophy of the pancreas. No focal pancreatic lesions are seen. No evidence of pancreatic ductal dilation. The spleen, adrenal glands, and kidneys have a normal appearance. There is no pathologically enlarged mesenteric or retroperitoneal adenopathy. The bowel loops are nondilated. Ventral hernia is seen at the midline and extending right of midline. Loops of colon are seen within this hernia without evidence of obstruction. Mild inflammatory changes are seen adjacent to the ascending colon as it enters the hernia sac. Prior partial colectomy changes are visualized in the sigmoid colon. There is no free fluid or free air. No acute osseous abnormalities. Multiple prior kyphoplasty changes are seen in the lower thoracic and lumbar spine. Right hip pinning is noted. There is calcified aortic and iliac atherosclerotic plaque without aneurysm. Ureters and bladder are grossly normal. There is no free air, loculated collection, or adenopathy in the pelvis. IMPRESSION: 1. Prominent ventral hernia at the midline and extending right of midline containing loops of colon. No evidence of associated bowel obstruction is seen. Mild inflammatory changes are seen along the course of the ascending colon as it enters the hernia sac. 2. Hepatic steatosis. No focal hepatic lesions. 3. Fatty atrophy of the pancreas. No focal pancreatic lesions are seen. Dictated by: Dictated on workstation # [id number]
== END ==
LOC: RAD 11:15
PROVIDERS: ATTEND Surgery
DX: K76.0 Fatty (change of) liver, not elsewhere classified (principal); K86.89 Other specified diseases of pancreas; Z85.038 Personal history of other malignant neoplasm of large intestine
CPT/HCPCS: 74177

== ENCOUNTER 2020-12-31 05:33 | Outpatient (RCR) | payer MEDICARE, MEDICAID ==
[~2020-12-31] VITALS: Ht 167.6 cm; Wt 77.1 kg
[~2020-12-31 05:33] MED LIST changes: -HOLD METFORMIN - RECEIVED CONTRAST 20 ML VIAL IV SCH; -IOHEXOL 350 MG/ML 100 ML (OMNIPAQUE 350) VIAL IV ONE; -NS 100 ML (IVPB) BAG IV ONE
== END 2020-12-31 09:16 | disposition home or self-care (01) ==
LOC: PREOP 05:33
PROVIDERS: ATTEND Surgery
DX: Z01.812 Encounter for preprocedural laboratory examination (principal); R13.10 Dysphagia, unspecified; R11.10 Vomiting, unspecified; Z20.822 Contact with and (suspected) exposure to COVID-19
CPT/HCPCS: 87635

== ENCOUNTER 2021-01-04 08:43 | Day surgery (SDC) | payer MEDICARE, MEDICAID ==
[~2021-01-04] VITALS: Ht 167 cm; Wt 77.0 kg
[2021-01-04] VITALS (7 sets, daily range): BP systolic 104–145; BP diastolic 56–89
[2021-01-04] MEDS ORDERED: LACTATED RINGERS 1,000 ML IV ONE (08:50)
[2021-01-04] MEDS ORDERED: LACTATED RINGERS 1,000 ML IV STA (08:59)
[2021-01-04] MEDS ORDERED: HURRICAINE EXT TUBE (BENZOCAINE) XX PRN (09:00)
--- NOTE | 2021-01-04 09:22 | Progress Note-Pre Operative ---
Pre-Operative Progress Note H&P Reviewed The H&P was reviewed, patient examined and no changes noted. Time Seen by Provider: 09:21 Date H&P Reviewed: Jan 04, 2021 Time H&P Reviewed: 09:21 Pre-Operative Diagnosis: Dysphagia LEXUS NELSON DO Jan 04, 2021 09:22
[2021-01-04] MEDS ORDERED: proPOfol 200 MG/20 ML (DIPRIVAN) VIAL IV ONE (09:59)
--- NOTE | 2021-01-04 10:23 | Progress Note-Post Operative ---
Post-Operative Progess Note Surgeon (s)/Precision Lens Generator (s) Surgeon LEXUS NELSON DO Precision Lens Generator: none Pre-Operative Diagnosis Dysphagia Post-Operative Diagnosis Same Hiatal hernia Gastritis Tortuous esophagus Procedure & Operative Findings Date of Procedure 01/04/21 Procedure Performed/Findings EGD with bx PROCEDURE NOTE: After informed consent was obtained, the patient was brought to the endoscopy suite, placed in bed in left lateral decubitus position. She was administered IV sedation by the SERVICE CENTER SPECIALIST who then monitored vitals the entire time, heart rate, blood pressure and pulse ox and the scope was inserted down the mouth through the esophagus into the stomach. On the way down, noted some mild esophagitis and the distal portion of esophagus was very tortuous. Took a picture and pushed into the stomach, pushed past the antrum into the duodenum. Duodenum looked good. Pulled back and did a biopsy of antrum, then retroflexed the scope, saw a small hiatal hernia, took a picture of this and then pulled the scope into the GE junction. The esophagus was very dry and it appeared like there was a tear in the mucosa from the scope. Did not really appreciate a stricture, feel like it is more of the tortuosity and dryness of esophagus causing the dysphagia. Elected to not do a biopsy of the GE junction. Pushed the scope back into the stomach, suctioned all the air out of the stomach. At this point pulled the scope up the esophagus and took some pictures; no narrowing of upper esophagus. Finally pulled the scope out the mouth. The patient tolerated the procedure, and she recovered in endoscopy suite. Anesthesia Type IV sedation by SERVICE CENTER SPECIALIST Estimated Blood Loss Estimated blood loss (mL): scant Specimens/Packing Specimens Removed antral bx LEXUS NELSON DO Jan 04, 2021 10:23
--- NOTE | 2021-01-04 10:26 | Endoscopy Discharge Instruct ---
Endo Procedure/Findings Findings 1.: Gastritis 2.: Hiatal Hernia, Other Findings (tortuous esophagus) Discharge Instructions - Activity: You might feel a little sleepy until tomorrow. This is due to the medicine you received to relax you. Until tomorrow, you should: NOT drive a car, operate machinery or power tools. NOT drink any alcoholic beverages. NOT make any important decisions or sign importortant papers. Do not return to work until tomorrow, unless otherwise instructed. Resume previous activities tomorrow. Diet: Start by taking liquids. If you tolerate liquids, advance to solid food. 1.: EGD in 1 year Notify Physician - If you experience excessive bleeding, unusual abdominal pain, fever, or chest pain, contact your doctor immediately. LEXUS NELSON DO Jan 04, 2021 10:26
--- NOTE | 2021-01-04 11:56 | Anesthesia-General Post-Op ---
MAC Patient Condition Mental Status/LOC: Same as Preop Cardiovascular: Satisfactory Nausea/Vomiting: Absent Respiratory: Satisfactory Pain: Controlled Complications: Absent Post Op Complications Complications None Follow Up Care/Instructions Patient Instructions None needed. Anesthesiology Discharge Order Discharge Order Patient was seen after the procedure and she was doing well, no complaints, stable vital signs, no apparent adverse anesthesia problems. CARMEN LEWIS DO Jan 04, 2021 11:56
== END 2021-01-04 11:30 | disposition home or self-care (01) ==
LOC: ENDO 08:43
PROVIDERS: ATTEND Surgery
DX: K29.50 Unspecified chronic gastritis without bleeding (principal); K44.9 Diaphragmatic hernia without obstruction or gangrene; E78.5 Hyperlipidemia, unspecified; J44.9 Chronic obstructive pulmonary disease, unspecified; K21.9 Gastro-esophageal reflux disease without esophagitis; M48.061 Spinal stenosis, lumbar region without neurogenic claudication; I11.9 Hypertensive heart disease without heart failure; E78.00 Pure hypercholesterolemia, unspecified; K43.9 Ventral hernia without obstruction or gangrene; G47.33 Obstructive sleep apnea (adult) (pediatric); E07.9 Disorder of thyroid, unspecified; Z86.718 Personal history of other venous thrombosis and embolism; Z87.891 Personal history of nicotine dependence; Z79.891 Long term (current) use of opiate analgesic; Z79.82 Long term (current) use of aspirin; Z79.890 Hormone replacement therapy; Z79.899 Other long term (current) drug therapy; Z88.1 Allergy status to other antibiotic agents

== ENCOUNTER 2021-01-31 09:53 | Emergency (ER) | payer MEDICARE, MEDICAID ==
[~2021-01-31] VITALS: Ht 152.4 cm; Wt 72.7 kg
[~2021-01-31 09:53] MED LIST changes: +DICY20TA PO; -DICY20TA10 PO; +MONT-40 PO; -MONT10TA32 PO; +MULT-1054 PO; -MULT-985 PO; +POTA-160 PO; -POTA10TA36 PO; +POTA10TA37 PO; -POTA10TA6 PO
[2021-01-31] MEDS ORDERED: fentaNYL INJ 100 MCG/2 ML AMP IVP ONE (10:45)
--- NOTE | 2021-01-31 11:07 | ED Fall/Injury ---
General Chief Complaint: Trauma-Non Activation Stated Complaint: FALL Nursing Triage Note: TO ED PER EMS PATIENT REPORT SHE FELL LAST NIGHT. CALLED HER SON TO COME PUT HER IN BED. TODAY WOKE UP WITH SWELLING AND BRUSING OF R FOOT , L ARM PAIN,AND CHRONIC BACK PAIN Source: patient, EMS Exam Limitations: no limitations (BEAU MANJARREZ STUDENT) History of Present Illness Date Seen by Provider: Jan 31, 2021 Time Seen by Provider: 10:30 Initial Comments This is an 80 YO female presenting to the ER by EMS for fall/syncopal episode last night. Pt states last night she was in the kitchen about to make some oatmeal when she began not feeling well and thought she was going to pass out. She headed back to her bedroom to get in bed, but fell backwards and "blacked out" before she got there. She was able to call her son and he came to her house and helped her into bed. This morning she woke up and had right foot pain, so she called EMS. Also complaining of neck pain. Thinks she hit her head when she fell but is not complaining of headache. Denies being on blood thinners. Occurred: yesterday Context: fainted Associated Symptoms (Fall): No Abdominal Pain, No Chest Pain, No Headache, No Nausea/Vomiting, No Shortness of Air (BEAU MANJARREZ STUDENT) Allergies and Home Medications Allergies Coded Allergies: sulfamethoxazole (Verified Allergy, Intermediate, Vomiting, 09/09/19) trimethoprim (Verified Allergy, Intermediate, Vomiting, 09/09/19) erythromycin base (Verified Allergy, Unknown, 09/09/19) quinine (Verified Allergy, Unknown, 09/09/19) cephalexin (Verified Adverse Reaction, Severe, CONFUSION, DIZZINESS, 03/04/20) Patient Home Medication List Home Medication List Reviewed: Yes (JESSICA CALDERA MD) Albuterol Sulfate (Albuterol Sulfate) 2.5 Mg/0.5 Ml Vial.neb, 2.5 MG INH Q4H PRN for WHEEZING, (Reported) Entered as Reported by: PATRICK SHAW on 05/13/19 0840 Albuterol Sulfate (Ventolin Hfa) 18 Gm Hfa.aer.ad, 2 PUFF INH QID PRN for SHORTNESS OF BREATH, (Reported) Entered as Reported by: PATRICK SHAW on 06/18/20 1506 Buspirone HCl (Buspirone HCl) 5 Mg Tablet, 5 MG PO BID, (Reported) Entered as Reported by: TOMAS HAYS on 09/07/20 1448 Ciprofloxacin HCl (Ciprofloxacin HCl) 500 Mg Tablet, 500 MG PO BID Prescribed by: ALIZA HENRY on 10/21/20 1454 Dicyclomine HCl (Dicyclomine HCl) 10 Mg Capsule, 10 MG PO QID PRN for PAIN-MILD (1-4), (Reported) Entered as Reported by: TOMAS HAYS on 09/07/20 1448 Diphenoxylate HCl/Atropine (Diphenoxylate-Atrop 2.5-0.025) 1 Each Tablet, 1 EACH PO UD, (Reported) Entered as Reported by: TOMAS HAYS on 09/07/20 1451 Duloxetine HCl (Duloxetine HCl) 60 Mg Capsule.dr, 60 MG PO DAILY, (Reported) Entered as Reported by: TOMAS HAYS on 09/07/20 1448 Ezetimibe (Ezetimibe) 10 Mg Tablet, 10 MG PO DAILY, (Reported) Entered as Reported by: TARAN CARPENTER on 07/02/19 1122 Fluticasone Propionate (Flonase Allergy Relief) 9.9 Ml [place].susp, 2 SPRAY NS DAILY, (Reported) Entered as Reported by: TOMAS HAYS on 09/07/20 1448 Fluticasone/Salmeterol (Advair 250-50 Diskus) 1 Each Blst.w.dev, 1 EACH IH BID, (Reported) Entered as Reported by: TOMAS HAYS on 09/07/20 1448 Furosemide (Furosemide) 20 Mg Tablet, 20 MG PO DAILY, (Reported) Entered as Reported by: PATRICK SHAW on 06/18/20 1506 Hydrocodone/Acetaminophen (Hydrocodone-Acetamin 5-325 mg) 1 Each Tablet, 1 TAB PO Q6H PRN for PAIN-MODERATE (5-7) Prescribed by: JESSICA CALDERA on 01/31/21 1347 Levofloxacin (Levofloxacin) 250 Mg Tablet, 250 MG PO DAILY Prescribed by: JESSICA CALDERA on 01/31/21 1347 Levothyroxine Sodium (Levothyroxine) 112 Mcg Capsule, 112 MCG PO DAILY, (Reported) Entered as Reported by: TOMAS HAYS on 09/07/20 1448 Loratadine (Loratadine) 10 Mg Tablet, 10 MG PO DAILY, (Reported) Entered as Reported by: TOMAS HAYS on 09/07/20 1448 Lorazepam (Ativan) 1 Mg Tablet, 1 MG PO TID PRN for ANXIETY, (Reported) Entered as Reported by: TOMAS HAYS on 09/07/20 1448 Loteprednol Etabonate (Lotemax Sm) 5 Gm Drops.gel, 5 GM OP DAILY, (Reported) Entered as Reported by: TOMAS HAYS on 09/07/20 1448 Metoprolol Succinate (Metoprolol Succinate) 50 Mg Tab.er.24h, 50 MG PO DAILY, (Reported) Entered as Reported by: PATRICK SHAW on 05/13/19 0828 Mirabegron (Myrbetriq) 50 Mg Tab.er.24h, 50 MG PO DAILY, (Reported) Entered as Reported by: TOMAS HAYS on 09/07/20 1448 Montelukast Sodium (Montelukast Sodium) 10 Mg Tablet, 10 MG PO DAILY, (Reported) Entered as Reported by: TOMAS HAYS on 09/07/20 1448 Multivitamin with Minerals (Hair, Skin & Nails) 1 Each Tablet, 1 EACH PO DAILY, (Reported) Entered as Reported by: PATRICK SHAW on 06/18/20 1511 Nitroglycerin (Nitroglycerin) 0.4 Mg Tab.subl, 0.4 MG SL UD PRN for CHEST PAIN, (Reported) Entered as Reported by: MARTINE TELLO on 12/14/17 1514 Ofloxacin (Ofloxacin) 5 Ml Drops, 5 ML OP DAILY, (Reported) Entered as Reported by: TOMAS HAYS on 09/07/20 1448 Oxycodone HCl/Acetaminophen (Oxycodone-Acetaminophen 10-325) 1 Each Tablet, 1 EACH PO Q4H PRN for PAIN-MODERATE (5-7), (Reported) Entered as Reported by: TOMAS HAYS on 09/07/20 1451 Pantoprazole Sodium (Pantoprazole Sodium) 40 Mg Tablet.dr, 40 MG PO DAILY, (Reported) Entered as Reported by: TOMAS HAYS on 09/07/20 1448 Potassium Chloride (Potassium Chloride) 10 Meq Tab.er.prt, 10 MEQ PO DAILY, (Reported) Entered as Reported by: TOMAS HAYS on 09/07/20 1448 Pregabalin (Pregabalin) 150 Mg Capsule, 150 MG PO BID, (Reported) Entered as Reported by: TOMAS HAYS on 09/07/20 1448 Ropinirole HCl (Ropinirole HCl) 4 Mg Tablet, 8 MG PO HS, (Reported) Entered as Reported by: TOMAS HAYS on 09/07/20 1448 Temazepam (Temazepam) 15 Mg Capsule, 30 MG PO DAILY, (Reported) Entered as Reported by: TOMAS HAYS on 09/07/20 1448 Review of Systems Review of Systems Constitutional: No chills, No fever Eyes: Denies Blindness, Denies Blurred Vision Ears, Nose, Mouth, Throat: denies ear pain, denies ear discharge Respiratory: No cough, No dyspnea on exertion Cardiovascular: No chest pain, No palpitations Gastrointestinal: No abdominal pain, No diarrhea Genitourinary: no symptoms reported Musculoskeletal: see HPI Skin: no symptoms reported Psychiatric/Neurological: No Symptoms Reported (BEAU MANJARREZ STUDENT) All Other Systems Reviewed Negative Unless Noted: Yes (Negative excepted noted.) (BEAU MANJARREZ STUDENT) Past Svilvms-Ofbpum-Jujumx Hx Patient Social History Tobacco Use?: No Use of E-Cig and/or Vaping dev: No Substance use?: No Alcohol Use?: No (BEAU MANJARREZ STUDENT) Immunizations Up To Date Tetanus Booster (TDap): Unknown PED Vaccines UTD: No First/Initial COVID19 Vaccinat: UNSURE OF MONTH Second COVID19 Vaccination Javier: UNSURE OF MONTH COVID19 Vaccine 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: 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 (BEAU MANJARREZ STUDENT) Seasonal Allergies Seasonal Allergies: Yes (BEAU MANJARREZ STUDENT) Past Medical History Surgeries: Yes (R LEG HEATHER/HIP PIN; BACK-KYPHOPLASTY X3;HIATAL HERNIA X3;COLOSTOMY/REVERSAL) Abdominal, Appendectomy, Bladder Surgery, Bowel Surgery, Cardiac, Coronary Stent, Hysterectomy, Oophorectomy, Orthopedic, Tonsillectomy Respiratory: Yes (O2 AT 3L/NC CONTINUOUSLY) Pulmonary Embolism, Sleep Apnea, COPD Currently Using CPAP: No Currently Using BIPAP: No Cardiac: Yes (CARDIAC CATH WITH STENTS X 2;) Chronic Edema/Swelling, Coronary Artery Disease, Deep Vein Thrombosis, Heart Attack, High Cholesterol, Hypertension, Peripheral Vascular Neurological: Yes (COGNITIVE IMPAIRMENT/POOR MEMORY) Vertigo 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 Disorders: No EVENT 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 History: Hysterectomy, Menopausal Sexually Transmitted Disease: No HIV/AIDS: No Genitourinary: Yes (INCONTINENCE) Kidney Infection, Bladder Infection, UTI-Chronic Gastrointestinal: Yes (COLON CANCER DX 08/2019) Abdominal Hernia, Gastroesophageal Reflux, Diverticulosis, Esophagitis Musculoskeletal: Yes (FALLS, USES A WALKER;COMPRESSION FRACTURES; RIGHT HIP FRACTURE) Degenerate Disk Disease, Osteoporosis, Arthritis, Chronic Back Pain, Fractures Endocrine: Yes Hypothyroidsim HEENT: Yes ( DENTURES) Dysphagia Loss of Vision: Denies Hearing Impairment: Denies Cancer: Yes Colon Did You Recieve Any Treatments: Yes What Type of Treatment Did You: Surgical Intervention Psychosocial: Yes (RX DRUG ABUSE) Anxiety, Depression Integumentary: No Blood Disorders: Yes (ANEMIA) Adverse Reaction/Blood Tranf: No (HAS HAD BLOOD WITH NO REACTION) (BEAU MANJARREZ MED STUDENT) Family Medical History Family history: Hypertension G8 BROTHER Myocardial infarction 19 MOTHER G8 BROTHER Heart Disease, Hypertension SOCIAL HISTORY: -ETOH--OCCASIONAL USE IN PAST -DRUGS--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 GUZMAN IN [place] -RIGHT HEMICOLECTOMY/SMALL BOWEL RESECTION/LYSIS OF ADHESIONS/MULTIPLE FOREIGN BODIES REMOVED ( CORKSCREW TACKS FROM PREVIOUS HERNIA MESH ) 09/12/[address] NELSON -CYSTOSCOPY WITH BOTOX INJECTIONS 07/09/[address] MCDONALD. -MULTIPLE HERNIA REPAIRS WITH MESH -MULTIPLE EGD'S/COLONOSCOPIES/DILATIONS OF ESOPHAGEAL STRICTURES -CARDIAC CATHS--STENTS X 2 -KYPHOPLASTIES -APPENDECTOMY -RIGHT HIP FRACTURE ORIF WITH PIN IN HIP AND HEATHER IN [place] 03/2016 -HYSTERECTOMY/BILATERAL SALPINGO-OOPHORECTOMY -TONSILLECTOMY ADDITIONAL PAST MEDICAL HISTORY: -HAS 24 HOUR IN-HOME CARETAKERS -FREQUENT FALLS--USES A WALKER -RESTLESS LEG SYNDROME -RIGHT PALUMBO'S CYST -MULTIPLE COMPRESSION FRACTURES WITH KYPHOPLASTIES -CHRONIC DYSPHAGIA -CHRONIC ABDOMINAL PAIN COMPLAINTS -HAS (BEAU MANJARREZ STUDENT) Physical Exam Vital Signs Vital Signs - First Documented 01/31/21 09:55 Temp 36.0 Pulse 62 Resp 18 B/P (MAP) 129/74 (92) Pulse Ox 95 O2 Delivery Room Air (JESSICA CALDERA MD) Vital Signs Capillary Refill : Less Than 3 Seconds (BEAU MANJARREZ STUDENT) Height, Weight, BMI Height: 5'2.00" Weight: 163lbs. 0.0oz. [id number]; 31.00 BMI Method:Stated General Appearance: WD/WN, no apparent distress HEENT: PERRL/EOMI; No scleral icterus (R), No scleral icterus (L); other (No signs of head trauma; no bruising, abrasions, lacerations, or raccoon eyes) Neck: non-tender, supple, normal inspection Cardiovascular: regular rate, rhythm, no edema, no murmur Respiratory: chest non-tender, lungs clear, normal breath sounds, no respiratory distress, no accessory muscle use Peripheral Pulses: 2+ Dorsalis Pedis (R), 2+ Left Dors-Pedis (L), 2+ Radial Pulses (R), 2+ Radial Pulses (L) Gastrointestinal: non tender, soft; No distended, No guarding, No rebound Neurologic/Psychiatric: no motor/sensory deficits, alert, normal mood/affect, oriented x 3, other (normal qrytpz-xm-ndlf test) Skin: normal color, warm/dry (BEAU MANJARREZ STUDENT) Progress/Results/Core Measures Results/Orders Lab Results Laboratory Tests Test 01/31/21 11:03 01/31/21 11:25 01/31/21 12:54 Range/Units White Blood Count 6.5 4.3-11.0 10^3/uL Red Blood Count 4.21 3.80-5.11 10^6/uL Hemoglobin 11.9 11.5-16.0 g/dL Hematocrit 38 35-52 % Mean Corpuscular Volume 91 80-99 fL Mean Corpuscular Hemoglobin 28 25-34 pg Mean Corpuscular Hemoglobin Concent 31 L 32-36 g/dL Red Cell Distribution Width 17.1 H 10.0-14.5 % Platelet Count 232 130-400 10^3/uL Mean Platelet Volume 10.3 9.0-12.2 fL Immature Granulocyte % (Auto) 1 % Neutrophils (%) (Auto) 65 42-75 % Lymphocytes (%) (Auto) 22 12-44 % Monocytes (%) (Auto) 8 0-12 % Eosinophils (%) (Auto) 3 0-10 % Basophils (%) (Auto) 1 0-10 % Neutrophils # (Auto) 4.3 1.8-7.8 10^3/uL Lymphocytes # (Auto) 1.4 1.0-4.0 10^3/uL Monocytes # (Auto) 0.5 0.0-1.0 10^3/uL Eosinophils # (Auto) 0.2 0.0-0.3 10^3/uL Basophils # (Auto) 0.0 0.0-0.1 10^3/uL Immature Granulocyte # (Auto) 0.1 0.0-0.1 10^3/uL Sodium Level 142 135-145 MMOL/L Potassium Level 3.6 3.6-5.0 MMOL/L Chloride Level 108 H 98-107 MMOL/L Carbon Dioxide Level 22 21-32 MMOL/L Anion Gap 12 5-14 MMOL/L Blood Urea Nitrogen 15 7-18 MG/DL Creatinine 0.98 0.60-1.30 MG/DL Estimat Glomerular Filtration Rate 54 BUN/Creatinine Ratio 15 Glucose Level 97 70-105 MG/DL Calcium Level 9.9 8.5-10.1 MG/DL Urine Color YELLOW Urine Clarity CLOUDY Urine pH 6.0 5-9 Urine Specific [place] 1.025 H 1.016-1.022 Urine Protein TRACE H NEGATIVE Urine Glucose (UA) NEGATIVE NEGATIVE Urine Ketones NEGATIVE NEGATIVE Urine Nitrite POSITIVE H NEGATIVE Urine Bilirubin NEGATIVE NEGATIVE Urine Urobilinogen 0.2 < = 1.0 MG/DL Urine Leukocyte Esterase 2+ H NEGATIVE Urine RBC (Auto) 3+ H NEGATIVE Urine RBC 10-25 H /HPF Urine WBC 25-50 H /HPF Urine Squamous Epithelial Cells RARE /HPF Urine Crystals NONE /LPF Urine Bacteria LARGE H /HPF Urine Casts NONE /LPF Urine Mucus NEGATIVE /LPF Urine Culture Indicated YES (JESSICA CALDERA MD) Micro Results Microbiology 01/31/21 Urine Culture - Final, Complete Escherichia coli (JESSICA CALDERA MD) My Orders Orders - JESSICA CALDERA MD Foot, Right, 3 View (01/31/21 10:34) Ekg Tracing (01/31/21 10:34) Cbc With Automated Diff (01/31/21 10:34) Basic Metabolic Panel (01/31/21 10:34) Fentanyl Inj (Sublimaze Injection) (01/31/21 10:45) Ct Head/Cervical Spine Wo (01/31/21 10:34) Ua Culture If Indicated (01/31/21 11:56) Tibia/Fibula, Right, 2 Views (01/31/21 11:56) Urine Culture (01/31/21 12:54) Ns Iv 1000 Ml (Sodium Chloride 0.9%) (01/31/21 13:30) Hydrocodone/Apap 7.5/325 Tab (Lortab 7. (01/31/21 13:30) Levofloxacin 250 Mg/50 Ml Ivpb (Levaquin (01/31/21 13:30) Iv Infusion <= First Hr Ed (01/31/21 ) (JESSICA CALDERA MD) Medications Given in ED (JESSICA CALDERA MD) Vital Signs/I&O 01/31/21 01/31/21 01/31/21 09:55 11:42 15:26 Temp 36.0 Pulse 62 54 74 Resp 18 18 18 B/P (MAP) 129/74 (92) 153/78 165/91 Pulse Ox 95 95 97 O2 Delivery Room Air Room Air Room Air (JESSICA CALDERA MD) Blood Pressure Mean: 92 Progress Progress Note : Time: 13:38 Progress Note Patient reevaluated after labs and imaging studies. She continues to have some discomfort in her right foot. CT brain and cervical spine were negative for any acute intracranial or cervical pathology. Labs have been reviewed, only pertinent finding is evidence of a urinary tract infection. Patient does state that she has not really eaten or drank very well over the course of the last week as she has developed symptoms of burning with urination urgency and frequency. She denies fevers or chills, chest pain, shortness of breath or productive cough. No other complaints of injury is related to the syncopal episode last night. Patient likely had a vasovagal event resulting in her syncope or her syncope was due to some generalized debility secondary to the infection. Her EKG is reviewed, normal sinus rhythm at 65 bpm without ectopy or ST segment change. Vital signs have been stable. She is neurologically normal. Right foot does show some swelling over the dorsum with ecchymotic change, very tender to palpation over the dorsum of the foot consistent with distal fourth and fifth metatarsal fractures. Her foot will be wrapped with an Gaston bandage and she will be provided a postop shoe with referral to Dr. MIRANDA for further evaluation and management of the foot fractures. She is advised to follow-up with Dr. Fofana her primary care physician. She will be provided a prescription for pain medications as well as antibiotics. As she is allergic to Bactrim and cephalexin we will give her some Levaquin. 250 mg once a day for 5 days. She does not have any findings to suggest urosepsis. Will provide hydrocodone for the foot fractures. Standard precautions regarding narcotic prescription. (JESSICA CALDERA MD) Initial ECG Impression Date: Jan 31, 2021 Initial ECG Impression Time: 10:40 Initial ECG Rate: 65 Initial ECG Rhythm: Normal Sinus Initial ECG Intervals ND 192 QRS 121 QTc 377 Initial ECG Impression: Nonspecific Changes (JESSICA CALDERA MD) Diagnostic Imaging Diagonstic Imaging: Xray Comments [facility] [place], [place] NAME: WEST SADLER Radha [facility] REC#: [id number] PT STATUS: REG ER : 1940 PHYSICIAN: JESSICA CALDERA MD ADMIT DATE: 01/31/21/ER Draft Date of Exam:01/31/21 TIBIA/FIBULA, RIGHT, 2 VIEWS EXAM: TIBIA/FIBULA, RIGHT, 2 VIEWS INDICATION: Fall. Right lower extremity pain. COMPARISON: Right tibia and fibula radiographs 08/02/2008. FINDINGS: No fracture or malalignment. No suspicious osteoblastic or lytic lesions. Soft tissue shadows are unremarkable. Moderate degenerative changes in the medial compartment of the right knee have progressed since 2008. IMPRESSION: 1. No acute radiographic findings in the right tibia or fibula. 2. Interval progression of degenerative changes in the medial compartment of the right knee. Dictated on workstation # [id number] Dict: 01/31/21 1216 Trans: 01/31/21 1218 [facility] [id number] Interpreted by: REBEKAH RAHMAN MD Electronically signed by: [facility] [place], [place] NAME: WEST SADLER [facility] REC#: [id number] PT STATUS: REG ER : 1940 PHYSICIAN: JESSICA CALDERA MD ADMIT DATE: 01/31/21/ER Draft Date of Exam:01/31/21 FOOT, RIGHT, 3 VIEW EXAMINATION: Right foot 3 views HISTORY: Syncope and fall, foot injury COMPARISON: 10/11/2012 FINDINGS: There are fractures of the distal left 4th and 5th metacarpals. No other fracture is seen. There is overlying soft tissue swelling. IMPRESSION: 1. Mildly displaced left 4th and 5th distal metacarpal fractures. Dictated on workstation # [id number] Dict: 01/31/21 1131 Trans: 01/31/21 1141 [facility] [phone] Interpreted by: ARIS LEDESMA MD Electronically signed by: NAME: WEST SADLER [facility] REC#: [id number] PT STATUS: REG ER : 1940 PHYSICIAN: JESSICA CALDERA MD ADMIT DATE: 01/31/21/ER Draft Date of Exam:01/31/21 CT HEAD/CERVICAL SPINE WO EXAMINATION: CT head and CT cervical spine without contrast. TECHNIQUE: Multiple contiguous axial images were obtained through the brain and cervical spine without the use of intravenous contrast. Sagittal and coronal reformations through the cervical spine were then performed. All CT scans use one or more of the following dose optimizing techniques: automated exposure control, MA and/or KvP adjustment based on patient size and exam type or iterative reconstruction. HISTORY: Syncope and fall. Head and neck injury. COMPARISON: 10/21/2020 FINDINGS: The salvador-white matter differentiation is normal. No mass effect or midline shift. The ventricles are normal in size and configuration. Basilar cisterns are patent. There are no intra- or extra-axial fluid collections. There is no intracranial hemorrhage. Periventricular white matter hypoattenuation is in keeping with chronic small vessel ischemic changes. The orbits are normal. Paranasal sinuses are normal. There is a right mastoid effusion. No soft tissue abnormality is seen. No osseus lesions or fractures are seen. The alignment of the cervical spine is normal. No fracture is seen. Vertebral body heights are normal. The craniocervical junction is normal. There is mild degenerative disease in the cervical spine. There is no spinal canal stenosis. No soft tissue abnormality is seen in the neck. Limited views of the superior thorax are normal. IMPRESSION: 1. No acute intracranial abnormality. 2. No cervical spine fracture. Dictated on workstation # [id number] Dict: 01/31/21 1125 Trans: 01/31/21 1141 [facility] [phone] Interpreted by: ARIS LEDESMA MD Electronically signed by: (JESSICA CALDERA MD) Departure Impression Primary Impression: Fx metatarsal-closed Qualified Codes: S92.341A - Displaced fracture of fourth metatarsal bone, right foot, initial encounter for closed fracture Additional Impressions: UTI (urinary tract infection) Qualified Codes: N30.00 - Acute cystitis without hematuria Syncope Qualified Codes: R55 - Syncope and collapse Fracture of 5th metatarsal Qualified Codes: S92.354A - Nondisplaced fracture of fifth metatarsal bone, right foot, initial encounter for closed fracture Disposition: 01 HOME, SELF-CARE Condition: Stable Departure-Patient Inst. Decision time for Depature: 13:42 (JESSICA CALDERA MD) Referrals: TORIBIO FOFANA DO (PCP/Family) Primary Care Physician BETHEL MIRANDA MD Patient Instructions: Foot Fracture ED, Urinary Tract Infection, Adult ED Add. Discharge Instructions: Take pain medications every 6 hours with food as needed for right foot pain. Take a stool softener twice daily while taking pain medications. Antibiotics daily for the next 5 days starting tomorrow. Drink plenty of fluids to stay well hydrated. You need to eat frequent small meals -especially with taking narcotic pain medicines. Please follow up with Dr Miranda - the ortho specialist regarding your foot fractures. I have provided his contact information. Also please call your family doctor for a follow up appointment next week. Return to the emergency department for any worsening symptoms of weakness, fever, vomiting worsening urinary tract infection symptoms or any other emergent concerns. Scripts Hydrocodone/Acetaminophen (Hydrocodone-Acetamin 5-325 mg) 1 Each Tablet 1 TAB PO Q6H PRN for PAIN-MODERATE (5-7), #15 TAB Prov: JESSICA CALDERA MD 01/31/21 Levofloxacin (Levofloxacin) 250 Mg Tablet 250 MG PO DAILY for 5 Days, #5 TAB Prov: JESSICA CALDERA MD 01/31/21 Verification and Attestation of Medical Student E/M Service A medical student performed and documented this service in my presence. I reviewed and verified all information documented by the medical student and made modifications to such information, when appropriate. I personally performed the physical exam and medical decision making. Jessica Caldera, Jan 31, 2021,13:41 (JESSICA CALDERA MD) Copy Copies To 1: TORIBIO FOFANA DO Copies To 2: BETHEL MIRANDA MD, CHRISTINE MED STUDENT Jan 31, 2021 11:07 JESSICA CALDERA MD Jan 31, 2021 12:43
[2021-01-31 11:13] LABS: BASOPHILS % (AUTO) 1 % (0-10); EOSINOPHILS # (AUTO) 0.2 10^3/uL (0.0-0.3); EOSINOPHILS % (AUTO) 3 % (0-10); HEMATOCRIT 38 % (35-52); HEMOGLOBIN 11.9 g/dL (11.5-16.0); LYMPHOCYTES # (AUTO) 1.4 10^3/uL (1.0-4.0); LYMPHOCYTES % (AUTO) 22 % (12-44); MEAN CORPUSCULAR HEMOGLOBIN 28 pg (25-34); MEAN CORPUSCULAR HGB CONC 31 g/dL (32-36); MEAN CORPUSCULAR VOLUME 91 fL (80-99); MEAN PLATELET VOLUME 10.3 fL (9.0-12.2); MONOCYTES # (AUTO) 0.5 10^3/uL (0.0-1.0); MONOCYTES % (AUTO) 8 % (0-12); NEUTROPHILS # (AUTO) 4.3 10^3/uL (1.8-7.8); NEUTROPHILS % (AUTO) 65 % (42-75); PLATELET COUNT 232 10^3/uL (130-400); WHITE BLOOD COUNT 6.5 10^3/uL (4.3-11.0)
--- NOTE | 2021-01-31 11:42 | Diagnostic Imaging Report ---
EXAMINATION: CT head and CT cervical spine without contrast. TECHNIQUE: Multiple contiguous axial images were obtained through the brain and cervical spine without the use of intravenous contrast. Sagittal and coronal reformations through the cervical spine were then performed. All CT scans use one or more of the following dose optimizing techniques: automated exposure control, MA and/or KvP adjustment based on patient size and exam type or iterative reconstruction. HISTORY: Syncope and fall. Head and neck injury. COMPARISON: 10/21/2020 FINDINGS: The salvador-white matter differentiation is normal. No mass effect or midline shift. The ventricles are normal in size and configuration. Basilar cisterns are patent. There are no intra- or extra-axial fluid collections. There is no intracranial hemorrhage. Periventricular white matter hypoattenuation is in keeping with chronic small vessel ischemic changes. The orbits are normal. Paranasal sinuses are normal. There is a right mastoid effusion. No soft tissue abnormality is seen. No osseus lesions or fractures are seen. The alignment of the cervical spine is normal. No fracture is seen. Vertebral body heights are normal. The craniocervical junction is normal. There is mild degenerative disease in the cervical spine. There is no spinal canal stenosis. No soft tissue abnormality is seen in the neck. Limited views of the superior thorax are normal. IMPRESSION: 1. No acute intracranial abnormality. 2. No cervical spine fracture. Dictated by: Dictated on workstation # [id number]
--- NOTE | 2021-01-31 11:42 | Diagnostic Imaging Report ---
EXAMINATION: Right foot 3 views HISTORY: Syncope and fall, foot injury COMPARISON: 10/11/2012 FINDINGS: There are fractures of the distal left 4th and 5th metacarpals. No other fracture is seen. There is overlying soft tissue swelling. IMPRESSION: 1. Mildly displaced left 4th and 5th distal metacarpal fractures. Dictated by: Dictated on workstation # [id number]
[2021-01-31 11:48] LABS: POTASSIUM 3.6 MMOL/L (3.6-5.0)
[2021-01-31 11:49] LABS: CALCIUM 9.9 MG/DL (8.5-10.1)
[2021-01-31 11:54] LABS: CREATININE SERUM 0.98 MG/DL (0.60-1.30)
--- NOTE | 2021-01-31 12:19 | Diagnostic Imaging Report ---
EXAM: TIBIA/FIBULA, RIGHT, 2 VIEWS INDICATION: Fall. Right lower extremity pain. COMPARISON: Right tibia and fibula radiographs 08/02/2008. FINDINGS: No fracture or malalignment. No suspicious osteoblastic or lytic lesions. Soft tissue shadows are unremarkable. Moderate degenerative changes in the medial compartment of the right knee have progressed since 2008. IMPRESSION: 1. No acute radiographic findings in the right tibia or fibula. 2. Interval progression of degenerative changes in the medial compartment of the right knee. Dictated by: Dictated on workstation # [id number]
[2021-01-31 13:00] LABS: BILIRUBIN,URINE NEGATIVE (NEGATIVE); CLARITY,URINE CLOUDY; COLOR,URINE YELLOW; GLUCOSE, URINE (UA) NEGATIVE (NEGATIVE); KETONES,URINE NEGATIVE (NEGATIVE); LEUKOCYTE ESTERASE ,URINE 2+ (NEGATIVE); NITRITE,URINE POSITIVE (NEGATIVE); PROTEIN,URINE TRACE (NEGATIVE)
[2021-01-31 13:09] LABS: BACTERIA,URINE LARGE /HPF; SQUAMOUS EPITHELIAL CELL,UR RARE /HPF; WBC,URINE 25-50 /HPF
[2021-01-31] MEDS ORDERED: HYDROcodone/APAP 7.5 MG/325 MG (LORTAB, LORCET PLUS) TABLET PO ONE (13:30)
[2021-01-31] MEDS ORDERED: NS IV 1000 ML 1,000 ML IV SCH (13:30)
[2021-01-31] MEDS ORDERED: LVF250T PO (13:47)
[2021-01-31] MEDS ORDERED: ACHD5005 PO (13:47)
[2021-01-31 15:26] VITALS: BP 165/91
== END 2021-01-31 15:29 | disposition home or self-care (01) ==
LOC: EDUNIT# 09:53 → ER 09:55
DX: S92.341A Displaced fracture of fourth metatarsal bone, right foot, initial encounter for closed fracture (principal); S92.351A Displaced fracture of fifth metatarsal bone, right foot, initial encounter for closed fracture; N39.0 Urinary tract infection, site not specified; R55 Syncope and collapse; G47.30 Sleep apnea, unspecified; J44.9 Chronic obstructive pulmonary disease, unspecified; I25.2 Old myocardial infarction; I10 Essential (primary) hypertension; K21.9 Gastro-esophageal reflux disease without esophagitis; E78.00 Pure hypercholesterolemia, unspecified; F41.9 Anxiety disorder, unspecified; F32.9 Major depressive disorder, single episode, unspecified; E03.9 Hypothyroidism, unspecified; G89.29 Other chronic pain; M54.9 Dorsalgia, unspecified; Z79.899 Other long term (current) drug therapy; Z79.891 Long term (current) use of opiate analgesic; Z79.890 Hormone replacement therapy; W18.30XA Fall on same level, unspecified, initial encounter
CPT/HCPCS: 36415; 51701; 70450; 72125; 73590; 73630; 80048; 81000; 85025; 87077; 87088; 87186; 93005; 96361; 96365; 96375

== ENCOUNTER 2021-06-17 10:06 | Outpatient (RCR) | payer MEDICARE, MEDICAID ==
[~2021-06-17 10:06] MED LIST changes: +FLUC100T10 PC; -FLUC100T6 PC; +LVF250T PO
[2021-06-17 10:17] LABS: BASOPHILS # (AUTO) 0.1 10^3/uL (0.0-0.1); BASOPHILS % (AUTO) 1 % (0-10); EOSINOPHILS # (AUTO) 0.3 10^3/uL (0.0-0.3); EOSINOPHILS % (AUTO) 5 % (0-10); HEMATOCRIT 42 % (35-52); LYMPHOCYTES # (AUTO) 1.6 10^3/uL (1.0-4.0); LYMPHOCYTES % (AUTO) 25 % (12-44); MEAN CORPUSCULAR HEMOGLOBIN 28 pg (25-34); MEAN CORPUSCULAR HGB CONC 31 g/dL (32-36); MEAN CORPUSCULAR VOLUME 90 fL (80-99); MEAN PLATELET VOLUME 11.3 fL (9.0-12.2); MONOCYTES # (AUTO) 0.4 10^3/uL (0.0-1.0); MONOCYTES % (AUTO) 6 % (0-12); NEUTROPHILS # (AUTO) 4.2 10^3/uL (1.8-7.8); NEUTROPHILS % (AUTO) 63 % (42-75); PLATELET COUNT 269 10^3/uL (130-400); WHITE BLOOD COUNT 6.6 10^3/uL (4.3-11.0)
[2021-06-17 10:41] LABS: BILIRUBIN,TOTAL 0.8 MG/DL (0.1-1.0); CALCIUM 9.3 MG/DL (8.5-10.1); CREATININE SERUM 1.12 MG/DL (0.60-1.30); TOTAL PROTEIN 6.5 GM/DL (6.4-8.2)
== END 2021-06-19 ==
LOC: ONC 10:06
PROVIDERS: ATTEND Internal Medicine Hematology & Oncology
DX: C18.9 Malignant neoplasm of colon, unspecified (principal); D50.0 Iron deficiency anemia secondary to blood loss (chronic); K46.9 Unspecified abdominal hernia without obstruction or gangrene; J44.9 Chronic obstructive pulmonary disease, unspecified; I25.10 Atherosclerotic heart disease of native coronary artery without angina pectoris; F41.8 Other specified anxiety disorders; K21.9 Gastro-esophageal reflux disease without esophagitis; E78.5 Hyperlipidemia, unspecified; E11.9 Type 2 diabetes mellitus without complications; R97.0 Elevated carcinoembryonic antigen [CEA]; Z99.3 Dependence on wheelchair
CPT/HCPCS: 80053; 85025; G0463; 36415; 99213

== ENCOUNTER 2021-07-07 09:28 | Emergency (ER) | payer MEDICARE, MEDICAID ==
[~2021-07-07] VITALS: Ht 152.4 cm; Wt 71.2 kg
[2021-07-07 09:28] VITALS: BP 134/66
--- NOTE | 2021-07-07 09:43 | ED Cough/URI ---
General Chief Complaint: Respiratory Problems Stated Complaint: SOB Nursing Triage Note: This patient arrives at [facility] ED via EMS who picked her up at home with C/O SOB and a cough since Monday. The patient is also concerned about a UTI. Source: patient, EMS Exam Limitations: no limitations History of Present Illness Date Seen by Provider: July 07, 2021 Time Seen by Provider: 09:32 Initial Comments Patient is an 81-year-old female who presents to the emergency department today with a chief complaint of shortness of breath and cough since July 02. Patient states that she went to [facility] for the first time in 10 years. She states she shortly thereafter developed her shortness of breath and cough. She wears oxygen at 3 L at night. She uses albuterol and nebulizer as needed. She is a remote smoker. Patient denies any significant productivity to the cough. She is also complaining of some dysuria over the last several days. She has a history of "short gut syndrome" which predisposes her she states too many urinary tract infections. No abdominal pain, nausea, vomiting. No swelling in her legs. She endorses a mild sore throat. She has a chronic right earache. She is COVID vaccinated, 2 doses in 2020, no booster. All other review of systems reviewed and negative except as stated. Timing/Duration: other (since monday) Prior Episodes/Possible Cause: occasional episodes Modifying Factors: Improves With Albuterol Nebulizer Associated Symptoms: cough, shortness of breath, sore throat Allergies and Home Medications Allergies Coded Allergies: sulfamethoxazole (Verified Allergy, Intermediate, Vomiting, 09/09/19) trimethoprim (Verified Allergy, Intermediate, Vomiting, 09/09/19) erythromycin base (Verified Allergy, Unknown, 09/09/19) quinine (Verified Allergy, Unknown, 09/09/19) cephalexin (Verified Adverse Reaction, Severe, CONFUSION, DIZZINESS, 03/04/20) Patient Home Medication List Home Medication List Reviewed: Yes Albuterol Sulfate (Albuterol Sulfate) 2.5 Mg/0.5 Ml Vial.neb, 2.5 MG INH Q4H PRN for WHEEZING, (Reported) Entered as Reported by: PATRICK SHAW on 05/13/19 0840 Albuterol Sulfate (Ventolin Hfa) 18 Gm Hfa.aer.ad, 2 PUFF INH QID PRN for SHORTNESS OF BREATH, (Reported) Entered as Reported by: PATRICK SHAW on 06/18/20 1506 Buspirone HCl (Buspirone HCl) 5 Mg Tablet, 5 MG PO BID, (Reported) Entered as Reported by: TOMAS HAYS on 09/07/20 1448 Ciprofloxacin HCl (Ciprofloxacin HCl) 500 Mg Tablet, 500 MG PO BID Prescribed by: ALIZA HENRY on 10/21/20 1454 Dicyclomine HCl (Dicyclomine HCl) 10 Mg Capsule, 10 MG PO QID PRN for PAIN-MILD (1-4), (Reported) Entered as Reported by: TOMAS HAYS on 09/07/20 1448 Diphenoxylate HCl/Atropine (Diphenoxylate-Atrop 2.5-0.025) 1 Each Tablet, 1 EACH PO UD, (Reported) Entered as Reported by: TOMAS HAYS on 09/07/20 1451 Duloxetine HCl (Duloxetine HCl) 60 Mg Capsule.dr, 60 MG PO DAILY, (Reported) Entered as Reported by: TOMAS HAYS on 09/07/20 1448 Ezetimibe (Ezetimibe) 10 Mg Tablet, 10 MG PO DAILY, (Reported) Entered as Reported by: TARAN CARPENTER on 07/02/19 1122 Fluticasone Propionate (Flonase Allergy Relief) 9.9 Ml Greer.susp, 2 SPRAY NS DAILY, (Reported) Entered as Reported by: TOMAS HAYS on 09/07/20 1448 Fluticasone/Salmeterol (Advair 250-50 Diskus) 1 Each Blst.w.dev, 1 EACH IH BID, (Reported) Entered as Reported by: TOMAS HAYS on 09/07/20 1448 Furosemide (Furosemide) 20 Mg Tablet, 20 MG PO DAILY, (Reported) Entered as Reported by: PATRICK SHAW on 06/18/20 1506 Hydrocodone/Acetaminophen (Hydrocodone-Acetamin 5-325 mg) 1 Each Tablet, 1 TAB PO Q6H PRN for PAIN-MODERATE (5-7) Prescribed by: TIFFANY CALDERA on 01/31/21 1347 Levofloxacin (Levofloxacin) 250 Mg Tablet, 250 MG PO DAILY Prescribed by: TIFFANY CALDERA on 01/31/21 1347 Levothyroxine Sodium (Levothyroxine) 112 Mcg Capsule, 112 MCG PO DAILY, (Reported) Entered as Reported by: TOMAS HAYS on 09/07/20 1448 Loratadine (Loratadine) 10 Mg Tablet, 10 MG PO DAILY, (Reported) Entered as Reported by: TOMAS HAYS on 09/07/20 1448 Lorazepam (Ativan) 1 Mg Tablet, 1 MG PO TID PRN for ANXIETY, (Reported) Entered as Reported by: TOMAS HAYS on 09/07/20 1448 Loteprednol Etabonate (Lotemax Sm) 5 Gm Drops.gel, 5 GM OP DAILY, (Reported) Entered as Reported by: TOMAS HAYS on 09/07/20 1448 Metoprolol Succinate (Metoprolol Succinate) 50 Mg Tab.er.24h, 50 MG PO DAILY, (Reported) Entered as Reported by: PATRICK SHAW on 05/13/19 0828 Mirabegron (Myrbetriq) 50 Mg Tab.er.24h, 50 MG PO DAILY, (Reported) Entered as Reported by: TOMAS HAYS on 09/07/20 1448 Montelukast Sodium (Montelukast Sodium) 10 Mg Tablet, 10 MG PO DAILY, (Reported) Entered as Reported by: TOMAS HAYS on 09/07/20 1448 Multivitamin with Minerals (Hair, Skin & Nails) 1 Each Tablet, 1 EACH PO DAILY, (Reported) Entered as Reported by: PATRICK SHAW on 06/18/20 1511 Nitroglycerin (Nitroglycerin) 0.4 Mg Tab.subl, 0.4 MG SL UD PRN for CHEST PAIN, (Reported) Entered as Reported by: MARTINE TELLO on 12/14/17 1514 Ofloxacin (Ofloxacin) 5 Ml Drops, 5 ML OP DAILY, (Reported) Entered as Reported by: TOMAS HAYS on 09/07/20 1448 Oxycodone HCl/Acetaminophen (Oxycodone-Acetaminophen 10-325) 1 Each Tablet, 1 EACH PO Q4H PRN for PAIN-MODERATE (5-7), (Reported) Entered as Reported by: TOMAS HAYS on 09/07/20 1451 Pantoprazole Sodium (Pantoprazole Sodium) 40 Mg Tablet.dr, 40 MG PO DAILY, (Reported) Entered as Reported by: TOMAS HAYS on 09/07/20 144 Potassium Chloride (Potassium Chloride) 10 Meq Tab.er.prt, 10 MEQ PO DAILY, (Reported) Entered as Reported by: TOMAS HAYS on 09/07/20 144 Pregabalin (Pregabalin) 150 Mg Capsule, 150 MG PO BID, (Reported) Entered as Reported by: TOMAS HAYS on 09/07/20 144 Ropinirole HCl (Ropinirole HCl) 4 Mg Tablet, 8 MG PO HS, (Reported) Entered as Reported by: TOMAS HAYS on 09/07/20 144 Temazepam (Temazepam) 15 Mg Capsule, 30 MG PO DAILY, (Reported) Entered as Reported by: TOMAS HAYS on 09/07/20 1448 Review of Systems Review of Systems Constitutional: see HPI, malaise EENTM: throat pain Respiratory: cough, short of breath, wheezing Cardiovascular: no symptoms reported Gastrointestinal: diarrhea (chroonic) Genitourinary: dysuria : No Musculoskeletal: no symptoms reported Skin: no symptoms reported Psychiatric/Neurological: No Symptoms Reported All Other Systems Reviewed Negative Unless Noted: Yes Past Msfeczu-Inovlv-Mmfdmn Hx Immunizations Up To Date Tetanus Booster (TDap): Unknown PED Vaccines UTD: No First/Initial COVID19 Vaccinat: UNSURE OF MONTH Second COVID19 Vaccination Javier: UNSURE OF MONTH Seasonal Allergies Seasonal Allergies: Yes Past Medical History Surgeries: Yes (R LEG HEATHER/HIP PIN; BACK-KYPHOPLASTY X3;HIATAL HERNIA X3;COLOSTOMY/REVERSAL) Abdominal, Appendectomy, Bladder Surgery, Bowel Surgery, Cardiac, Coronary Stent, Hysterectomy, Oophorectomy, Orthopedic, Tonsillectomy Respiratory: Yes (O2 AT 3L/NC CONTINUOUSLY) Pulmonary Embolism, Sleep Apnea, COPD Currently Using CPAP: No Currently Using BIPAP: No Cardiac: Yes (CARDIAC CATH WITH STENTS X 2;) Chronic Edema/Swelling, Coronary Artery Disease, Deep Vein Thrombosis, Heart Attack, High Cholesterol, Hypertension, Peripheral Vascular Neurological: Yes (COGNITIVE IMPAIRMENT/POOR MEMORY) Vertigo 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 Disorders: No [employer] History: Hysterectomy, Menopausal Sexually Transmitted Disease: No HIV/AIDS: No Genitourinary: Yes (INCONTINENCE) Kidney Infection, Bladder Infection, UTI-Chronic Gastrointestinal: Yes (COLON CANCER DX 08/2019) Abdominal Hernia, Gastroesophageal Reflux, Diverticulosis, Esophagitis Musculoskeletal: Yes (FALLS, USES A WALKER;COMPRESSION FRACTURES; RIGHT HIP FRACTURE) Degenerate Disk Disease, Osteoporosis, Arthritis, Chronic Back Pain, Fractures Endocrine: Yes Hypothyroidsim HEENT: Yes ( DENTURES) Dysphagia Loss of Vision: Denies Hearing Impairment: Denies Cancer: Yes Colon Did You Recieve Any Treatments: Yes What Type of Treatment Did You: Surgical Intervention Psychosocial: Yes (RX DRUG ABUSE) Anxiety, Depression Integumentary: No Blood Disorders: Yes (ANEMIA) Adverse Reaction/Blood Tranf: No (HAS HAD BLOOD WITH NO REACTION) Family Medical History Family history: Hypertension G8 BROTHER Myocardial infarction 19 MOTHER G8 BROTHER Heart Disease, Hypertension SOCIAL HISTORY: -ETOH--OCCASIONAL USE IN PAST -DRUGS--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 GUZMAN IN [place] -RIGHT HEMICOLECTOMY/SMALL BOWEL RESECTION/LYSIS OF ADHESIONS/MULTIPLE FOREIGN BODIES REMOVED ( CORKSCREW TACKS FROM PREVIOUS HERNIA MESH ) 09/12/[address] NELSON -CYSTOSCOPY WITH BOTOX INJECTIONS 07/09/[address] MCDONALD. -MULTIPLE HERNIA REPAIRS WITH MESH -MULTIPLE EGD'S/COLONOSCOPIES/DILATIONS OF ESOPHAGEAL STRICTURES -CARDIAC CATHS--STENTS X 2 -KYPHOPLASTIES -APPENDECTOMY -RIGHT HIP FRACTURE ORIF WITH PIN IN HIP AND HEATHER IN [place] 03/2016 -HYSTERECTOMY/BILATERAL SALPINGO-OOPHORECTOMY -TONSILLECTOMY ADDITIONAL PAST MEDICAL HISTORY: -HAS 24 HOUR IN-HOME CARETAKERS -FREQUENT FALLS--USES A WALKER -RESTLESS LEG SYNDROME -RIGHT PALUMBO'S CYST -MULTIPLE COMPRESSION FRACTURES WITH KYPHOPLASTIES -CHRONIC DYSPHAGIA -CHRONIC ABDOMINAL PAIN COMPLAINTS -HAS Physical Exam Vital Signs - First Documented 07/07/21 07/07/21 09:28 09:36 Pulse 60 Resp 25 B/P (MAP) 134/66 (88) Pulse Ox 95 O2 Delivery Room Air O2 Flow Rate 3.00 Capillary Refill : Height: 5'2.00" Weight: 163lbs. 0.0oz. 73.666307ze; 30.00 BMI Method:Stated General Appearance: WD/WN, no apparent distress Eyes: Bilateral Eye Normal Inspection, Bilateral Eye PERRL, Bilateral Eye EOMI HEENT: PERRL/EOMI, other (Dry mucous membranes with slightly erythematous pharynx; tuft of cotton noted in the right ear canal. This was removed to reveal erythematous right ear canal with purulence in the canal noted. Some debris also noted. Patient has moderate pain with manipulation of the ear) Respiratory: no respiratory distress, no accessory muscle use, wheezing (throughout) Cardiovascular: regular rate, rhythm Gastrointestinal: non tender, soft Neurologic/Psychiatric: alert, normal mood/affect, oriented x 3 Skin: normal color, warm/dry Progress/Results/Core Measures Suspected Sepsis SIRS Temperature: Pulse: 60 Respiratory Rate: 25 Laboratory Tests 07/07/21 10:12: White Blood Count 5.9 Blood Pressure 134 /66 Mean: 88 Laboratory Tests 07/07/21 10:12: Creatinine 0.84, Platelet Count 191 Results/Orders Lab Results Laboratory Tests Test 07/07/21 09:52 07/07/21 10:12 Range/Units Urine Color YELLOW Urine Clarity SL CLOUDY Urine pH 5.5 5-9 Urine Specific [place] 1.010 L 1.016-1.022 Urine Protein NEGATIVE NEGATIVE Urine Glucose (UA) NEGATIVE NEGATIVE Urine Ketones NEGATIVE NEGATIVE Urine Nitrite POSITIVE H NEGATIVE Urine Bilirubin NEGATIVE NEGATIVE Urine Urobilinogen 0.2 < = 1.0 MG/DL Urine Leukocyte Esterase 1+ H NEGATIVE Urine RBC (Auto) NEGATIVE NEGATIVE Urine RBC RARE /HPF Urine WBC 10-25 H /HPF Urine Squamous Epithelial Cells 0-2 /HPF Urine Renal Epithelial Cells 2-5 /HPF Urine Crystals NONE /LPF Urine Bacteria LARGE H /HPF Urine Casts NONE /LPF Urine Mucus NEGATIVE /LPF Urine Culture Indicated YES SARS-CoV-2 RNA (RT-PCR) Not Detected Not Detecte White Blood Count 5.9 4.3-11.0 10^3/uL Red Blood Count 4.32 3.80-5.11 10^6/uL Hemoglobin 12.3 11.5-16.0 g/dL Hematocrit 39 35-52 % Mean Corpuscular Volume 90 80-99 fL Mean Corpuscular Hemoglobin 29 25-34 pg Mean Corpuscular Hemoglobin Concent 32 32-36 g/dL Red Cell Distribution Width 17.4 H 10.0-14.5 % Platelet Count 191 130-400 10^3/uL Mean Platelet Volume 11.2 9.0-12.2 fL Immature Granulocyte % (Auto) 2 % Neutrophils (%) (Auto) 61 42-75 % Lymphocytes (%) (Auto) 26 12-44 % Monocytes (%) (Auto) 5 0-12 % Eosinophils (%) (Auto) 5 0-10 % Basophils (%) (Auto) 0 0-10 % Neutrophils # (Auto) 3.6 1.8-7.8 10^3/uL Lymphocytes # (Auto) 1.5 1.0-4.0 10^3/uL Monocytes # (Auto) 0.3 0.0-1.0 10^3/uL Eosinophils # (Auto) 0.3 0.0-0.3 10^3/uL Basophils # (Auto) 0.0 0.0-0.1 10^3/uL Immature Granulocyte # (Auto) 0.1 0.0-0.1 10^3/uL Sodium Level 142 135-145 MMOL/L Potassium Level 2.7 L 3.6-5.0 MMOL/L Chloride Level 103 98-107 MMOL/L Carbon Dioxide Level 27 21-32 MMOL/L Anion Gap 12 5-14 MMOL/L Blood Urea Nitrogen 10 7-18 MG/DL Creatinine 0.84 0.60-1.30 MG/DL Estimat Glomerular Filtration Rate 69 BUN/Creatinine Ratio 12 Glucose Level 104 70-105 MG/DL Calcium Level 9.0 8.5-10.1 MG/DL My Orders Orders - TIFFANY CALDERA MD Chest 1 View, Ap/Pa Only (07/07/21 09:39) Ua Culture If Indicated (07/07/21 09:39) Cbc With Automated Diff (07/07/21 09:39) Basic Metabolic Panel (07/07/21 09:39) Ed Iv/Invasive Line Start (07/07/21 09:39) Covid 19 Inhouse Test (07/07/21 09:39) Isolation Central Supply Req (07/07/21 09:39) Urine Culture (07/07/21 09:52) Nitrofurantoin Capsule,Macro (Macrobid C (07/07/21 11:00) Methylprednisolone Sod Succ (Solu-Medrol (07/07/21 11:00) Albuterol Pre-Mix Nebs (Rt) (Proventil (07/07/21 11:00) Ipratropium 0.02% Neb Solution (Atrovent (07/07/21 11:00) Svn Small Volume Nebulizer (07/07/21 10:56) Svn Small Volume Nebulizer (07/07/21 10:56) Lorazepam Tablet (Ativan Tablet) (07/07/21 11:10) Medications Given in ED Current Medications Medications Dose Ordered Sig/Perez Route Start Time Stop Time Status Last Admin Dose Admin Albuterol Sulfate 2.5 mg ONCE ONCE INH 07/07/21 11:00 07/07/21 11:01 DC 07/07/21 11:09 2.5 MG Ipratropium [place] 0.5 mg ONCE ONCE IH 07/07/21 11:00 07/07/21 11:01 DC 07/07/21 11:09 0.5 MG Methylprednisolone Sodium Succinate 125 mg ONCE ONCE IVP 07/07/21 11:00 07/07/21 11:01 DC 07/07/21 11:24 125 MG Nitrofurantoin Macrocrystals 100 mg ONCE ONCE PO 07/07/21 11:00 07/07/21 11:01 DC 07/07/21 11:23 100 MG Vital Signs/I&O 07/07/21 07/07/21 07/07/21 07/07/21 09:28 09:36 11:12 11:36 Pulse 60 Resp 25 B/P (MAP) 134/66 (88) Pulse Ox 95 96 O2 Delivery Room Air Nasal Cannula Room Air Room Air O2 Flow Rate 3.00 Capillary Refill : Blood Pressure Mean: 88 Progress Note : Time: 11:59 Progress Note Reexamined patient, she is feeling a little better after the breathing treatment. She still has mild expiratory wheeze especially in the anterior upper lung fallon. She is complaining of chronic back pain and requests an oxycodone. I have talked to her about the antibiotics I am prescribing both for her right otitis externa, her urinary tract infection as well as the bronchitis. I have advised that she take an [id number]-iivvxac probiotic daily while on the antibiotics We talked about her chest x-ray and need for follow-up. Return precautions have also been discussed. She verbalized understanding. All questions are sought and answered. Diagnostic Imaging Diagonstic Imaging: Xray Plain Films/CT/US/NM/MRI: chest Comments [facility] [place], [place] NAME: WE[facility] SADLER [facility] REC#: [id number] PT STATUS: REG ER : 1940 PHYSICIAN: TIFFANY CALDERA MD ADMIT DATE: 07/07/21/ER Signed Date of Exam:07/07/21 CHEST 1 VIEW, AP/PA ONLY EXAMINATION: Chest radiograph, portable AP view. DATE: 07/07/2021 10:04 AM. INDICATION: 81-year-old female, cough and shortness of breath. COMPARISON: October 21, 2020. FINDINGS: The heart size and mediastinal contours are grossly unchanged given differences in patient positioning. There is no identified pneumothorax. There is no large pleural effusion. There is opacification projecting over the left lung base which may be artifactual although infiltrate and/or atelectasis is considered. This appears to have somewhat of a rounded margin at its medial aspect. IMPRESSION: Potential nonspecific consolidation in the left lung base versus artifact. Particularly given this has a somewhat rounded appearance at its medial margin, a CT chest without contrast is recommended for further assessment as a pulmonary nodule or mass is considered. Dictated by: Dictated on workstation # [id number] Dict: 07/07/21 1010 Trans: 07/07/21 1024 [id number] Interpreted by: JAG WHALEY MD Electronically signed by: JAG WHALEY MD 07/07/21 1024 Departure Impression Primary Impression: Bronchitis Additional Impressions: Laryngitis Right otitis externa Qualified Codes: H60.501 - Unspecified acute noninfective otitis externa, right ear Urinary tract infection Qualified Codes: N30.00 - Acute cystitis without hematuria Disposition: HOME, SELF-CARE Condition: Improved Departure-Patient Inst. Decision time for Depature: 11:55 Referrals: TORIBIO BREWER DO (PCP/Family) Primary Care Physician Patient Instructions: Acute Bronchitis, Urinary Tract Infection, Adult ED, Outer Ear Infection ED Add. Discharge Instructions: Drink plenty of fluids to stay well-hydrated. Use the eardrops in your right ear as directed for the next week. Macrobid twice daily for the next week. Azithromycin for the bronchitis/sore throat. Take an over the counter PROBIOTIC daily while on the antibiotics. Continue all of your other medications as previously instructed by your primary care physician. If you have worsening shortness of breath especially with high fever, worsening abdominal pain or any other emergent concerning symptoms please come back to the emergency room for reevaluation. Keep your follow-up with your pain management doctor next week as scheduled. Call Dr. Brewer's office for an appointment in 1 week as well - you will need follow up of your chest xray, possibly a CT scan.. Scripts Azithromycin (Azithromycin) 250 Mg Tablet 250 MG PO UD, #6 TAB TAKE 2 TABLETS ON DAY ONE THEN TAKE 1 TABLET DAILY FOR FOUR MORE DAYS Prov: TIFFANY CALDERA MD 07/07/21 Nitrofurantoin Monohyd/M-Cryst (Macrobid 100 mg Capsule) 100 Mg Capsule 1 TAB PO BID for 5 Days, #10 CAP Prov: TIFFANY CALDERA MD 07/07/21 Neomycin/Polymyxin B Sulf/Hc (Omxikrfm-Iwaykfpkg-Sk Ear Susp) 3.5 Mg/Ml-10,000 Unit/Ml-1 % Drops.susp 4 DROPS RIGHT EAR TID for 10 Days, #1 % Prov: TIFFANY CALDERA MD 07/07/21 Copy Copies To 1: TORIBIO BREWER KATHRYN M MD July 07, 2021 09:43
[2021-07-07 10:00] LABS: BILIRUBIN,URINE NEGATIVE (NEGATIVE); CLARITY,URINE SL CLOUDY; COLOR,URINE YELLOW; GLUCOSE, URINE (UA) NEGATIVE (NEGATIVE); KETONES,URINE NEGATIVE (NEGATIVE); LEUKOCYTE ESTERASE ,URINE 1+ (NEGATIVE); NITRITE,URINE POSITIVE (NEGATIVE); PH,URINE 5.5 (5-9); PROTEIN,URINE NEGATIVE (NEGATIVE)
[2021-07-07 10:07] LABS: BACTERIA,URINE LARGE /HPF; RBC,URINE RARE /HPF; SQUAMOUS EPITHELIAL CELL,UR 0-2 /HPF
--- NOTE | 2021-07-07 10:15 | Diagnostic Imaging Report ---
EXAMINATION: Chest radiograph, portable AP view. DATE: 07/07/2021 10:04 AM. INDICATION: 81-year-old female, cough and shortness of breath. COMPARISON: October 21, 2020. FINDINGS: The heart size and mediastinal contours are grossly unchanged given differences in patient positioning. There is no identified pneumothorax. There is no large pleural effusion. There is opacification projecting over the left lung base which may be artifactual although infiltrate and/or atelectasis is considered. This appears to have somewhat of a rounded margin at its medial aspect. IMPRESSION: Potential nonspecific consolidation in the left lung base versus artifact. Particularly given this has a somewhat rounded appearance at its medial margin, a CT chest without contrast is recommended for further assessment as a pulmonary nodule or mass is considered. Dictated by: Dictated on workstation # [id number]
[2021-07-07 10:26] LABS: POTASSIUM 2.7 MMOL/L (3.6-5.0)
[2021-07-07 10:31] LABS: CREATININE SERUM 0.84 MG/DL (0.60-1.30)
[2021-07-07 10:38] LABS: BASOPHILS % (AUTO) 0 % (0-10); EOSINOPHILS # (AUTO) 0.3 10^3/uL (0.0-0.3); EOSINOPHILS % (AUTO) 5 % (0-10); HEMATOCRIT 39 % (35-52); HEMOGLOBIN 12.3 g/dL (11.5-16.0); LYMPHOCYTES # (AUTO) 1.5 10^3/uL (1.0-4.0); LYMPHOCYTES % (AUTO) 26 % (12-44); MEAN CORPUSCULAR HEMOGLOBIN 29 pg (25-34); MEAN CORPUSCULAR HGB CONC 32 g/dL (32-36); MEAN CORPUSCULAR VOLUME 90 fL (80-99); MEAN PLATELET VOLUME 11.2 fL (9.0-12.2); MONOCYTES # (AUTO) 0.3 10^3/uL (0.0-1.0); MONOCYTES % (AUTO) 5 % (0-12); NEUTROPHILS # (AUTO) 3.6 10^3/uL (1.8-7.8); NEUTROPHILS % (AUTO) 61 % (42-75); PLATELET COUNT 191 10^3/uL (130-400); WHITE BLOOD COUNT 5.9 10^3/uL (4.3-11.0)
[2021-07-07] MEDS ORDERED: methylPREDNISolone 125 MG (Solu-MEDROL) VIAL IVP ONE (11:00)
[2021-07-07] MEDS ORDERED: RT-IPRATROPIUM (ATROVENT) 0.5MG/2.5ML AMP IH ONE (11:00)
[2021-07-07] MEDS ORDERED: RT-ALBUTEROL SULF 2.5 MG/3 ML PRE-MIX VIAL INH ONE (11:00)
[2021-07-07] MEDS ORDERED: NITROFURANTOIN 100 MG (MACROBID) CAPSULE PO ONE (11:00)
[2021-07-07] MEDS ORDERED: LORazepam 0.5 MG (ATIVAN) TABLET PO STA (11:10)
[2021-07-07] MEDS ORDERED: AZIT250T12 PO (11:58)
[2021-07-07] MEDS ORDERED: NEOM10DR42 RIGHT EAR (11:58)
[2021-07-07] MEDS ORDERED: NITR-65 PO (11:58)
[2021-07-07] MEDS ORDERED: oxyCODONE/APAP 5/325MG (PERCOCET 5) TABLET PO ONE (12:15)
== END 2021-07-07 12:13 | disposition home or self-care (01) ==
LOC: EDUNIT# 09:28 → ER 09:29
DX: J44.9 Chronic obstructive pulmonary disease, unspecified (principal); J04.0 Acute laryngitis; N30.00 Acute cystitis without hematuria; H60.501 Unspecified acute noninfective otitis externa, right ear; Z20.822 Contact with and (suspected) exposure to COVID-19; Z90.49 Acquired absence of other specified parts of digestive tract; Z90.710 Acquired absence of both cervix and uterus; Z90.722 Acquired absence of ovaries, bilateral; Z99.81 Dependence on supplemental oxygen; Z79.899 Other long term (current) drug therapy
CPT/HCPCS: 36415; 71045; 80048; 81000; 85025; 87077; 87088; 87186; 87636; 94640; 99284

== ENCOUNTER 2021-07-09 07:31 | Inpatient (IN) | payer MEDICARE, MEDICAID ==
[2021-07-09] VITALS (12 sets, daily range): BP systolic 134–162; BP diastolic 76–95
[~2021-07-09] VITALS: Ht 152 cm; Wt 79.5 kg
[~2021-07-09 07:31] MED LIST changes: +AZIT250T12 PO; +NEOM10DR42 RIGHT EAR
[2021-07-09] MEDS ORDERED: CEFEPIME INJECTION 2,000 MG in NS (IVPB) 50 ML IV ONE (07:45)
[2021-07-09] MEDS ORDERED: RT-ALBUTEROL/IPRATROPIUM 3 ML (DUONEB) VIAL INH ONE (07:45)
[2021-07-09] MEDS ORDERED: methylPREDNISolone 125 MG (Solu-MEDROL) VIAL IVP ONE (07:45)
--- NOTE | 2021-07-09 08:05 | ED General ---
General Chief Complaint: Respiratory Problems Stated Complaint: SOA Nursing Triage Note: This patient arrives to ED07 at 0734 vis EMS. EMS reports that when they got to her she was breathing about 40 times per minute; EMS applied BiPAP that was continued upon arrival. The patient appears to be in respiratory distress. RNx2, CHAMBER WORKER, and physician at bedside. Physician orders lactic acid, blood cultures, flu swab, and EJ IV. Source of Information: Patient, EMS, Old Records Exam Limitations: No Limitations History of Present Illness Date Seen by Provider: July 09, 2021 Time Seen by Provider: 07:31 Initial Comments This 81-year-old woman presents to the emergency room in respiratory distress via EMS. She called EMS from home this morning complaining of shortness of breath. EMS reports oxygen saturation was in the low 80s on patient's usual 3 L by nasal cannula at home. She was seen in this ER 2 days ago and diagnosed with bronchitis and UTI. She was discharged home. COVID-19 test was negative during that ER stay. She is receiving CPAP by EMS in route. EMS reports decreased level of alertness has improved in transit. Patient requests DNR. Allergies and Home Medications Allergies Coded Allergies: sulfamethoxazole (Verified Allergy, Intermediate, Vomiting, 09/09/19) trimethoprim (Verified Allergy, Intermediate, Vomiting, 09/09/19) erythromycin base (Verified Allergy, Unknown, 09/09/19) quinine (Verified Allergy, Unknown, 09/09/19) cephalexin (Verified Adverse Reaction, Severe, CONFUSION, DIZZINESS, 03/04/20) Patient Home Medication List Home Medication List Reviewed: Yes Azithromycin (Azithromycin) 250 Mg Tablet, 250 MG PO DAILY, (Reported) Entered as Reported by: PATRICK SHAW on 07/09/21 151 Last Action: Reviewed Clonazepam (Clonazepam) 1 Mg Tablet, 1 MG PO BID PRN for ANXIETY, (Reported) Entered as Reported by: PATRICK SHAW on 07/09/21 151 Last Action: Reviewed Diphenoxylate HCl/Atropine (Diphenoxylate-Atrop 2.5-0.025) 1 Each Tablet, 1 EACH PO QID PRN for LOOSE STOOLS, (Reported) Entered as Reported by: TOMAS HAYS on 09/07/20 6011 Last Action: Reviewed Duloxetine HCl (Duloxetine HCl) 60 Mg Capsule.dr, 60 MG PO DAILY, (Reported) Entered as Reported by: TOMAS HAYS on 09/07/201447 Last Action: Reviewed Ezetimibe (Ezetimibe) 10 Mg Tablet, 10 MG PO DAILY, (Reported) Entered as Reported by: TARAN CARPENTER on 07/02/19 1122 Last Action: Reviewed Famotidine (Famotidine) 20 Mg Tablet, 20 MG PO DAILY, (Reported) Entered as Reported by: PATRICK SHAW on 07/09/21 151 Last Action: Reviewed Fluorouracil (Fluorouracil) 5 % Cream..g., 1 APPLIC TOP BID, (Reported) Entered as Reported by: PATRICK SHAW on 07/09/211509 Last Action: Reviewed Fluticasone Propionate (Fluticasone Propionate) 50 Mcg/Actuation [place].susp, 2 SPRAY NSEACH DAILY PRN for CONGESTION, (Reported) Entered as Reported by: PATRICK SHAW on 07/09/21 151 Last Action: Reviewed Furosemide (Furosemide) 20 Mg Tablet, 20 MG PO DAILY, (Reported) Entered as Reported by: PATRICK SHAW on 06/18/20 1506 Last Action: Reviewed Levothyroxine Sodium (Levothyroxine Sodium) 112 Mcg Tablet, 112 MCG PO DAILY, (Reported) Entered as Reported by: PATRICK SHAW on 07/09/211509 Last Action: Reviewed Metoprolol Succinate (Metoprolol Succinate) 50 Mg Tab.er.24h, 50 MG PO DAILY, (Reported) Entered as Reported by: PATRICK SHAW on 05/13/19 0828 Last Action: Reviewed Mirabegron (Myrbetriq) 50 Mg Tab.er.24h, 50 MG PO DAILY, (Reported) Entered as Reported by: TOMAS HAYS on 09/07/201447 Last Action: Reviewed Montelukast Sodium (Montelukast Sodium) 10 Mg Tablet, 10 MG PO DAILY, (Reported) Entered as Reported by: TOMAS HAYS on 09/07/201447 Last Action: Reviewed Neomycin/Polymyxin B Sulf/Hc (Avbdtrkj-Oazwtmehg-Kz Ear Susp) 3.5 Mg/Ml-10,000 Unit/Ml-1 % Drops.susp, 4 DROPS RIGHT EAR TID, (Reported) Entered as Reported by: PATRICK SHAW on 07/09/211509 Last Action: Reviewed Nitrofurantoin Monohyd/M-Cryst (Nitrofurantoin [place]-Mcr 100 mg) 100 Mg Capsule, 100 MG PO BID, (Reported) Entered as Reported by: PATRICK SHAW on 07/09/211509 Last Action: Reviewed Oxycodone HCl (Oxycodone HCl) 10 Mg Tablet, 10 MG PO Q4H PRN for PAIN-SEVERE (8- 10), (Reported) Entered as Reported by: PATRICK SHAW on 07/09/211509 Last Action: Reviewed Pantoprazole Sodium (Pantoprazole Sodium) 40 Mg Tablet.dr, 40 MG PO DAILY, (Reported) Entered as Reported by: TOMAS HAYS on 09/07/201447 Last Action: Reviewed Potassium Chloride (Potassium Chloride) 10 Meq Tab.er.prt, 10 MEQ PO DAILY, (Reported) Entered as Reported by: TOMAS HAYS on 09/07/201447 Last Action: Reviewed Pregabalin (Pregabalin) 150 Mg Capsule, 150 MG PO BID, (Reported) Entered as Reported by: TOMAS HAYS on 09/07/201447 Last Action: Reviewed Ropinirole HCl (Ropinirole HCl) 4 Mg Tablet, 8 MG PO HS, (Reported) Entered as Reported by: TOMAS HAYS on 09/07/201447 Last Action: Reviewed Temazepam (Temazepam) 15 Mg Capsule, 15-30 MG PO HS, (Reported) Entered as Reported by: TOMAS HAYS on 09/07/201447 Last Action: Reviewed cycloSPORINE (cycloSPORINE) 0.05 % Droperette, 1 DROP OU BID, (Reported) Entered as Reported by: PATRICK SHAW on 07/09/211509 Last Action: Reviewed Discontinued Medications Albuterol Sulfate (Albuterol Sulfate) 2.5 Mg/0.5 Ml Vial.neb, 2.5 MG INH Q4H PRN for WHEEZING, (Reported) Discontinued Reason: Duplicate Order Entered as Reported by: PATRICK SHAW on 05/13/19 0840 Last Action: Discontinued Albuterol Sulfate (Ventolin Hfa) 18 Gm Hfa.aer.ad, 2 PUFF INH QID PRN for SHORTNESS OF BREATH, (Reported) Discontinued Reason: Duplicate Order Entered as Reported by: PATRICK SHAW on 06/18/20 1506 Last Action: Discontinued Azithromycin (Azithromycin) 250 Mg Tablet, 250 MG PO UD Discontinued Reason: Duplicate Order Prescribed by: TIFFANY CALDERA on 07/07/21 1158 Last Action: Discontinued Buspirone HCl (Buspirone HCl) 5 Mg Tablet, 5 MG PO BID, (Reported) Discontinued Reason: Duplicate Order Entered as Reported by: TOMAS HAYS on 09/07/20 144 Last Action: Discontinued Ciprofloxacin HCl (Ciprofloxacin HCl) 500 Mg Tablet, 500 MG PO BID Discontinued Reason: Duplicate Order Prescribed by: ALIZA HENRY on 10/21/20 4224 Last Action: Discontinued Dicyclomine HCl (Dicyclomine HCl) 10 Mg Capsule, 10 MG PO QID PRN for PAIN-MILD (1-4), (Reported) Discontinued Reason: Duplicate Order Entered as Reported by: TOMAS HAYS on 09/07/201447 Last Action: Discontinued Fluticasone Propionate (Flonase Allergy Relief) 9.9 Ml [place].susp, 2 SPRAY NS DAILY, (Reported) Discontinued Reason: Duplicate Order Entered as Reported by: TOMAS HAYS on 09/07/201447 Last Action: Discontinued Fluticasone/Salmeterol (Advair 250-50 Diskus) 1 Each Blst.w.dev, 1 EACH IH BID, (Reported) Discontinued Reason: Duplicate Order Entered as Reported by: TOMAS HAYS on 09/07/201447 Last Action: Discontinued Hydrocodone/Acetaminophen (Hydrocodone-Acetamin 5-325 mg) 1 Each Tablet, 1 TAB PO Q6H PRN for PAIN-MODERATE (5-7) Discontinued Reason: Duplicate Order Prescribed by: TIFFANY CALDERA on 01/31/21 1347 Last Action: Discontinued Levofloxacin (Levofloxacin) 250 Mg Tablet, 250 MG PO DAILY Discontinued Reason: Duplicate Order Prescribed by: TIFFANY CALDERA on 01/31/21 1347 Last Action: Discontinued Levothyroxine Sodium (Levothyroxine) 112 Mcg Capsule, 112 MCG PO DAILY, (Reported) Discontinued Reason: Duplicate Order Entered as Reported by: TOMAS HAYS on 09/07/20 144 Last Action: Discontinued Loratadine (Loratadine) 10 Mg Tablet, 10 MG PO DAILY, (Reported) Discontinued Reason: Duplicate Order Entered as Reported by: TOMAS HAYS on 09/07/201447 Last Action: Discontinued Lorazepam (Ativan) 1 Mg Tablet, 1 MG PO TID PRN for ANXIETY, (Reported) Discontinued Reason: Duplicate Order Entered as Reported by: TOMAS HAYS on 09/07/201447 Last Action: Discontinued Loteprednol Etabonate (Lotemax Sm) 5 Gm Drops.gel, 5 GM OP DAILY, (Reported) Discontinued Reason: Duplicate Order Entered as Reported by: TOMAS HAYS on 09/07/201447 Last Action: Discontinued Multivitamin with Minerals (Hair, Skin & Nails) 1 Each Tablet, 1 EACH PO DAILY, (Reported) Discontinued Reason: Duplicate Order Entered as Reported by: PATRICK SHAW on 06/18/20 151 Last Action: Discontinued Neomycin/Polymyxin B Sulf/Hc (Hrbkwhgv-Jinpwmdgw-Mt Ear Susp) 3.5 Mg/Ml-10,000 Unit/Ml-1 % Drops.susp, 4 DROPS RIGHT EAR TID Discontinued Reason: Duplicate Order Prescribed by: TIFFANY CALDERA on 07/07/211157 Last Action: Discontinued Nitrofurantoin Monohyd/M-Cryst (Macrobid 100 mg Capsule) 100 Mg Capsule, 1 TAB PO BID Discontinued Reason: Duplicate Order Prescribed by: TIFFANY CALDERA on 07/07/211157 Last Action: Discontinued Nitroglycerin (Nitroglycerin) 0.4 Mg Tab.subl, 0.4 MG SL UD PRN for CHEST PAIN, (Reported) Discontinued Reason: Duplicate Order Entered as Reported by: MARTINE TELLO on 12/14/17 1514 Last Action: Discontinued Ofloxacin (Ofloxacin) 5 Ml Drops, 5 ML OP DAILY, (Reported) Discontinued Reason: Duplicate Order Entered as Reported by: TOMAS HAYS on 09/07/201447 Last Action: Discontinued Oxycodone HCl/Acetaminophen (Oxycodone-Acetaminophen 10-325) 1 Each Tablet, 1 EACH PO Q4H PRN for PAIN-MODERATE (5-7), (Reported) Discontinued Reason: No Longer Taking Entered as Reported by: TOMAS HAYS on 09/07/201450 Last Action: Discontinued Review of Systems Review of Systems Constitutional: no symptoms reported EENTM: no symptoms reported Respiratory: see HPI Cardiovascular: no symptoms reported Gastrointestinal: no symptoms reported Genitourinary: see HPI : No Musculoskeletal: no symptoms reported Skin: no symptoms reported Psychiatric/Neurological: No Symptoms Reported Hematologic/Lymphatic: No Symptoms Reported Immunological/Allergic: no symptoms reported Past Iknibyx-Engrjt-Pocykd Hx Patient Social History Tobacco Use?: No Smoking Status: Never a Smoker Smokeless Tobacco Frequency: Never a User Use of E-Cig and/or Vaping Jose: Never a User Substance use?: No Alcohol Use?: No Pt feels they are or have been: No Immunizations Up To Date Tetanus Booster (TDap): Unknown PED Vaccines UTD: No First/Initial COVID19 Vaccinat: Unknown Second COVID19 Vaccination Javier: Unknown Seasonal Allergies Seasonal Allergies: Yes Past Medical History Surgeries: Yes (R LEG HEATHER/HIP PIN; BACK-KYPHOPLASTY X3;HIATAL HERNIA X3;COLOSTOMY/REVERSAL) Abdominal, Appendectomy, Bladder Surgery, Bowel Surgery, Cardiac, Coronary Stent, Hysterectomy, Oophorectomy, Orthopedic, Tonsillectomy Respiratory: Yes (O2 AT 3L/NC CONTINUOUSLY) Pulmonary Embolism, Sleep Apnea, COPD Currently Using CPAP: No Currently Using BIPAP: No Cardiac: Yes (CARDIAC CATH WITH STENTS X 2;) Chronic Edema/Swelling, Coronary Artery Disease, Deep Vein Thrombosis, Heart Attack, High Cholesterol, Hypertension, Peripheral Vascular Neurological: Yes (COGNITIVE IMPAIRMENT/POOR MEMORY) Vertigo 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 Disorders: No CANNONEER History: Hysterectomy, Menopausal Sexually Transmitted Disease: No HIV/AIDS: No Genitourinary: Yes (INCONTINENCE) Kidney Infection, Bladder Infection, UTI-Chronic Gastrointestinal: Yes (COLON CANCER DX 08/2019) Abdominal Hernia, Gastroesophageal Reflux, Diverticulosis, Esophagitis Musculoskeletal: Yes (FALLS, USES A WALKER;COMPRESSION FRACTURES; RIGHT HIP FRACTURE) Degenerate Disk Disease, Osteoporosis, Arthritis, Chronic Back Pain, Fractures Endocrine: Yes Hypothyroidsim HEENT: Yes ( DENTURES) Dysphagia Loss of Vision: Denies Hearing Impairment: Denies Cancer: Yes Colon Did You Recieve Any Treatments: Yes What Type of Treatment Did You: Surgical Intervention Psychosocial: Yes (RX DRUG ABUSE) Anxiety, Depression Integumentary: No Blood Disorders: Yes (ANEMIA) Adverse Reaction/Blood Tranf: No (HAS HAD BLOOD WITH NO REACTION) Family Medical History Reviewed Nursing Family Hx Family history: Hypertension G8 BROTHER Myocardial infarction 19 MOTHER G8 BROTHER Heart Disease, Hypertension SOCIAL HISTORY: -ETOH--OCCASIONAL USE IN PAST -DRUGS--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 UGZMAN IN [place] -RIGHT HEMICOLECTOMY/SMALL BOWEL RESECTION/LYSIS OF ADHESIONS/MULTIPLE FOREIGN BODIES REMOVED ( CORKSCREW TACKS FROM PREVIOUS HERNIA MESH ) 09/12/[address] NELSON -CYSTOSCOPY WITH BOTOX INJECTIONS 07/09/[address] MCDONALD. -MULTIPLE HERNIA REPAIRS WITH MESH -MULTIPLE EGD'S/COLONOSCOPIES/DILATIONS OF ESOPHAGEAL STRICTURES -CARDIAC CATHS--STENTS X 2 -KYPHOPLASTIES -APPENDECTOMY -RIGHT HIP FRACTURE ORIF WITH PIN IN HIP AND HEATHER IN [place] 03/2016 -HYSTERECTOMY/BILATERAL SALPINGO-OOPHORECTOMY -TONSILLECTOMY ADDITIONAL PAST MEDICAL HISTORY: -HAS 24 HOUR IN-HOME CARETAKERS -FREQUENT FALLS--USES A WALKER -RESTLESS LEG SYNDROME -RIGHT PALUMBO'S CYST -MULTIPLE COMPRESSION FRACTURES WITH KYPHOPLASTIES -CHRONIC DYSPHAGIA -CHRONIC ABDOMINAL PAIN COMPLAINTS -HAS Physical Exam-Suspected Sepsis Physical Exam Vital Signs Vital Signs - First Documented 07/09/21 07/09/21 07/09/21 07:35 08:12 09:50 Temp 36.6 Pulse 85 Resp 29 B/P (MAP) 139/69 Pulse Ox 100 O2 Delivery NIV Bilevel O2 Flow Rate 50.00 FiO2 50 Capillary Refill : Height, Weight, BMI Height: 5'2.00" Weight: 163lbs. 0.0oz. [id number]; 31.00 BMI Method:Stated General Appearance: WD/WN, Mild Distress (Respiratory) HEENT: PERRL/EOMI, Normal ENT Inspection Neck: Normal Inspection; No JVD Respiratory: Accessory Muscle Use, Decreased Breath Sounds, Wheezing Cardiovascular: Regular Rate, Rhythm, No Edema, No Murmur, Other (Heart sounds distant) Gastrointestinal: Non Tender, Soft; No Distended Extremity: Normal Inspection, No Pedal Edema Neurologic/Psychiatric: Alert, Normal Mood/Affect, Other (Alert and able to converse. Verbalizations minimal due to BiPAP/CPAP. Moves all extremities.) Skin: normal color, warm/dry Focused Exam Lactate Level 07/09/21 07:48: Lactic Acid Level 1.56 Lactic Acid Level Progress/Results/Core Measures Suspected Sepsis SIRS Temperature: Pulse: 85 Respiratory Rate: 29 Laboratory Tests 07/09/21 07:48: White Blood Count 10.7 Blood Pressure / Mean: 07/09/21 07:48: Lactic Acid Level 1.56 Laboratory Tests 07/09/21 07:48: Creatinine 0.82, Platelet Count 199, Total Bilirubin 0.6 07/09/21 12:23: INR Comment 0.9 Results/Orders Lab Results Laboratory Tests Test 07/09/21 07:48 07/09/21 08:10 07/09/21 08:40 07/09/21 12:23 Range/Units White Blood Count 10.7 4.3-11.0 10^3/uL Red Blood Count 4.65 3.80-5.11 10^6/uL Hemoglobin 13.3 11.5-16.0 g/dL Hematocrit 42 35-52 % Mean Corpuscular Volume 90 80-99 fL Mean Corpuscular Hemoglobin 29 25-34 pg Mean Corpuscular Hemoglobin Concent 32 32-36 g/dL Red Cell Distribution Width 17.8 H 10.0-14.5 % Platelet Count 199 130-400 10^3/uL Mean Platelet Volume 10.6 9.0-12.2 fL Immature Granulocyte % (Auto) 1 % Neutrophils (%) (Auto) 82 H 42-75 % Lymphocytes (%) (Auto) 11 L 12-44 % Monocytes (%) (Auto) 4 0-12 % Eosinophils (%) (Auto) 2 0-10 % Basophils (%) (Auto) 0 0-10 % Neutrophils # (Auto) 8.8 H 1.8-7.8 10^3/uL Lymphocytes # (Auto) 1.2 1.0-4.0 10^3/uL Monocytes # (Auto) 0.4 0.0-1.0 10^3/uL Eosinophils # (Auto) 0.3 0.0-0.3 10^3/uL Basophils # (Auto) 0.0 0.0-0.1 10^3/uL Immature Granulocyte # (Auto) 0.1 0.0-0.1 10^3/uL Sodium Level 141 135-145 MMOL/L Potassium Level 3.3 L 3.6-5.0 MMOL/L Chloride Level 103 98-107 MMOL/L Carbon Dioxide Level 27 21-32 MMOL/L Anion Gap 11 5-14 MMOL/L Blood Urea Nitrogen 12 7-18 MG/DL Creatinine 0.82 0.60-1.30 MG/DL Estimat Glomerular Filtration Rate 71 BUN/Creatinine Ratio 15 Glucose Level 112 H 70-105 MG/DL Lactic Acid Level 1.56 0.50-2.00 MMOL/L Calcium Level 9.2 8.5-10.1 MG/DL Corrected Calcium 9.3 8.5-10.1 MG/DL Total Bilirubin 0.6 0.1-1.0 MG/DL Aspartate Amino Transf (AST/SGOT) 16 5-34 U/L Alanine Aminotransferase (ALT/SGPT) 17 0-55 U/L Alkaline Phosphatase 89 40-136 U/L C-Reactive Protein High Sensitivity 1.49 H 0.00-0.50 MG/DL B-Type Natriuretic Peptide 183.1 H <100.0 PG/ML Total Protein 6.6 6.4-8.2 GM/DL Albumin 3.9 3.2-4.5 GM/DL Procalcitonin 0.05 <0.10 NG/ML Influenza Type A (RT-PCR) Not Detected Not Detecte Influenza Type B (RT-PCR) Not Detected Not Detecte SARS-CoV-2 RNA (RT-PCR) Not Detected Not Detecte Blood Gas Puncture Site RIGHT RADIAL Blood Gas Patient Temperature 36.6 Arterial Blood pH 7.31 *L 7.37-7.43 Arterial Blood Partial Pressure CO2 56 H 35-45 MMHG Arterial Blood Partial Pressure O2 149 H 79-93 MMHG Arterial Blood HCO3 27 23-27 MMOL/L Arterial Blood Total CO2 29.1 21.0-31.0 MMOL/L Arterial Blood Oxygen Saturation 99 94-100 % Arterial Blood Base Excess 1.5 -2.5-2.5 MMOL/L Guido Test POSITIVE Blood Gas Ventilator Setting YES Blood Gas Inspired Oxygen 50% Urine Color ORANGE Urine Clarity CLEAR Urine pH 5.0 5-9 Urine Specific [place] 1.010 L 1.016-1.022 Urine Protein 1+ H NEGATIVE Urine Glucose (UA) 1+ H NEGATIVE Urine Ketones NEGATIVE NEGATIVE Urine Nitrite POSITIVE H NEGATIVE Urine Bilirubin NEGATIVE NEGATIVE Urine Urobilinogen 2.0 < = 1.0 MG/DL Urine Leukocyte Esterase TRACE H NEGATIVE Urine RBC (Auto) NEGATIVE NEGATIVE Urine RBC RARE /HPF Urine WBC RARE /HPF Urine Squamous Epithelial Cells 0-2 /HPF Urine Crystals NONE /LPF Urine Bacteria LARGE H /HPF Urine Casts NONE /LPF Urine Mucus NEGATIVE /LPF Urine Culture Indicated CULTURE PENDING Prothrombin Time 12.9 12.2-14.7 SEC INR Comment 0.9 0.8-1.4 Activated Partial Thromboplast Time 39 H 24-35 SEC D-Dimer 0.78 H 0.00-0.49 UG/ML My Orders Orders - RADHA PAREDES MD Cbc With Automated Diff (07/09/21 07:38) Comprehensive Metabolic Panel (07/09/21 07:38) Blood Culture (07/09/21 07:38) Sputum Culture (07/09/21 07:38) Urinalysis (07/09/21 07:38) Urine Culture (07/09/21 07:38) Protime With Inr (07/09/21 07:38) Partial Thromboplastin Time (07/09/21 07:38) Chest 1 View, Ap/Pa Only (07/09/21 07:38) Ed Iv/Invasive Line Start (07/09/21 07:38) Ed Iv/Invasive Line Start (07/09/21 07:38) Vital Signs Adult Sepsis Patie Q15M (07/09/21 07:38) O2 (07/09/21 07:38) Remove Rings In Anticipation O (07/09/21 07:38) Lactic Acid Analyzer (07/09/21 07:38) Methylprednisolone Sod Succ (Solu-Medrol (07/09/21 07:45) Bnp Adrian (07/09/21 07:38) Hs C Reactive Protein (07/09/21 07:38) Procalcitonin (Pct) (07/09/21 07:38) Covid 19 Inhouse Test (07/09/21 07:38) Influenza A And B By Pcr (07/09/21 07:38) Albuterol/Ipra Inhalation Soln (Duoneb I (07/09/21 07:45) Svn Small Volume Nebulizer (07/09/21 07:45) Code/Resuscitation (07/09/21 07:52) Arterial Blood Gas (07/09/21 08:06) Fibrin Degradation Products (07/09/21 08:31) Enoxaparin Injection (Lovenox Injection) (07/09/21 09:15) Medications Given in ED Current Medications Medications Dose Ordered Sig/Perez Route Start Time Stop Time Status Last Admin Dose Admin Albuterol/ Ipratropium 3 ml ONCE ONCE INH 07/09/21 07:45 07/09/21 07:46 DC 07/09/21 08:09 3 ML Methylprednisolone Sodium Succinate 125 mg ONCE ONCE IVP 07/09/21 07:45 07/09/21 07:46 DC 07/09/21 08:21 125 MG Vital Signs/I&O 07/09/21 07/09/21 07/09/21 07/09/21 07:35 07:35 07:40 08:12 Temp 36.6 Pulse 85 90 Resp 29 22 B/P (MAP) Pulse Ox 100 98 99 O2 Delivery NIV Bilevel Nasal Cannula O2 Flow Rate 50.00 FiO2 50 07/09/21 07/09/21 07/09/21 07/09/21 09:50 10:00 10:14 11:00 Temp 36.6 36.8 Pulse 87 85 86 80 Resp 16 17 21 B/P (MAP) 139/69 140/91 (107) 160/85 (110) Pulse Ox 96 93 93 O2 Delivery OxyMask OxyMask OxyMask O2 Flow Rate 10.00 10.00 10.00 07/09/21 07/09/21 07/09/21 07/09/21 11:22 12:00 13:00 13:00 Pulse 84 93 93 Resp 21 20 B/P (MAP) 152/83 (106) Pulse Ox 92 96 99 O2 Delivery High Flow N/C OxyMask OxyMask O2 Flow Rate 6.00 10.00 10.00 07/09/21 07/09/21 07/09/21 07/09/21 14:00 15:00 15:55 16:00 Temp 36.1 Pulse 90 90 84 Resp 18 17 14 B/P (MAP) 154/88 (110) Pulse Ox 98 98 93 O2 Delivery High Flow N/C High Flow N/C High Flow N/C O2 Flow Rate 6.00 6.00 6.00 07/09/21 07/09/21 07/09/21 07/09/21 16:06 17:00 17:38 17:39 Pulse 81 84 90 Resp 17 14 17 B/P (MAP) 154/88 (110) Pulse Ox 92 94 93 98 O2 Delivery High Flow N/C High Flow N/C High Flow N/C High Flow N/C O2 Flow Rate 6.00 6.00 6.00 6.00 07/09/21 18:00 Pulse 88 Resp 22 Pulse Ox 99 O2 Delivery High Flow N/C O2 Flow Rate 6.00 Capillary Refill : Progress Note #1: Time: 08:03 Progress Note Patient was examined upon arrival. She was found to have poor air movement and diffuse wheezing. EMS CPAP was converted to BiPAP with respiratory therapy. A DuoNeb treatment is being given in line with the BiPAP. She is receiving Solu- Medrol 125 mg IV. A small IV was established in her foot and we will attempt a more definitive access with midline if this is not successful, central line may be placed. We did discuss CODE STATUS with the patient, and she requests DNR by name. Patient had pulmonary markings on her prior x-ray that may represent pneumonia. We will empirically treat with cefepime after blood cultures are o btained. COVID-19 test was -2 days ago. Influenza test was not performed. We will obtain an influenza test and repeat the COVID-19 test as a precaution. Patient is stable at this time and has an oxygen saturation of 100% on BiPAP. Progress Note #2: Time: 09:01 Progress Note Although there was question of infiltrate versus potential mass on her prior x- ray, the x-ray today is clear. On prior x-ray CT was recommended. I discussed the situation with Dr. Cox. We are planning to obtain a D-dimer. If D-dimer is positive, CT angiogram will be obtained. If D-dimer is negative, CT without contrast will be obtained. Patient has no other indications of pneumonia at this time. Chest x-ray was clear. CRP and procalcitonin were normal. She is afebrile. Tidal volume has improved with change in BiPAP settings. Patient is stable at this time. She is being admitted for acute on chronic respiratory failure related to COPD exacerbation. As a precaution, we are going to administer a single dose of Lovenox after discussion with Dr. Cox as we are not immediately able to rule out PE. Patient will be admitted to the ICU as high level of care and supervision is anticipated. Progress Note #3: Time: 09:09 Progress Note A second blood culture and coag studies have not yet been drawn. We are waiting for the attempt at a PICC line. Since there is no obvious pneumonia at this time, cefepime has been canceled. Further consideration for antibiotic will be deferred to the hospitalist team. UA is still pending but patient has been on Macrobid for the past 2 days. Diagnostic Imaging Diagonstic Imaging: Xray Plain Films/CT/US/NM/MRI: chest Comments Chest x-ray viewed by me and report reviewed. See preliminary report below: NAME: [facility] REC#: [id number] PT STATUS: REG ER : 1940 PHYSICIAN: RADHA PAREDES MD ADMIT DATE: 07/09/21/ER Draft Date of Exam:07/09/21 CHEST 1 VIEW, AP/PA ONLY INDICATION: Shortness of breath Frontal chest obtained at 0748 a.m. and compared to 07/07/2021. There is cardiomegaly. There is mild central vascular prominence. There is no focal infiltrate or pneumothorax or pleural fluid. There is evidence of previous multilevel kyphoplasty. IMPRESSION: No acute process in the chest. Dictated on workstation # [id number] Dict: 07/09/21 0803 Trans: 07/09/21 0807 NATE [id number] Interpreted by: LIANA FERNANDES MD Departure Communication (Admissions) Time/Spoke to Admitting Phy: 09:00 Dr. Cox Impression Primary Impression: Acute and chronic respiratory failure Additional Impression: COPD exacerbation Disposition: ADMITTED INPATIENT Condition: Stable Admissions Decision to Admit Reason: Admit from ER (General) Decision to Admit/Date: July 09, 2021 Time/Decision to Admit Time: 09:00 Departure-Patient Inst. Referrals: TORIBIO FOFANA DO (PCP/Family) Primary Care Physician RADHA PAREDES MD July 09, 2021 08:04
[2021-07-09 08:07] LABS: BASOPHILS % (AUTO) 0 % (0-10); EOSINOPHILS # (AUTO) 0.3 10^3/uL (0.0-0.3); EOSINOPHILS % (AUTO) 2 % (0-10); HEMATOCRIT 42 % (35-52); HEMOGLOBIN 13.3 g/dL (11.5-16.0); LYMPHOCYTES # (AUTO) 1.2 10^3/uL (1.0-4.0); LYMPHOCYTES % (AUTO) 11 % (12-44); MEAN CORPUSCULAR HEMOGLOBIN 29 pg (25-34); MEAN CORPUSCULAR HGB CONC 32 g/dL (32-36); MEAN CORPUSCULAR VOLUME 90 fL (80-99); MEAN PLATELET VOLUME 10.6 fL (9.0-12.2); MONOCYTES # (AUTO) 0.4 10^3/uL (0.0-1.0); MONOCYTES % (AUTO) 4 % (0-12); NEUTROPHILS # (AUTO) 8.8 10^3/uL (1.8-7.8); NEUTROPHILS % (AUTO) 82 % (42-75); PLATELET COUNT 199 10^3/uL (130-400); WHITE BLOOD COUNT 10.7 10^3/uL (4.3-11.0)
--- NOTE | 2021-07-09 08:08 | Diagnostic Imaging Report ---
INDICATION: Shortness of breath Frontal chest obtained at 0748 a.m. and compared to 07/07/2021. There is cardiomegaly. There is mild central vascular prominence. There is no focal infiltrate or pneumothorax or pleural fluid. There is evidence of previous multilevel kyphoplasty. IMPRESSION: No acute process in the chest. Dictated by: Dictated on workstation # [id number]
[2021-07-09 08:17] LABS: ABG BASE EXCESS 1.5 MMOL/L (-2.5-2.5); ABG OXYGEN SATURATION 99 % (94-100); ABG PCO2 56 MMHG (35-45); ABG PO2 149 MMHG (79-93); ABG TCO2 29.1 MMOL/L (21.0-31.0)
[2021-07-09 08:17] LABS: ALBUMIN 3.9 GM/DL (3.2-4.5); POTASSIUM 3.3 MMOL/L (3.6-5.0)
[2021-07-09 08:18] LABS: ABG PH 7.31 (7.37-7.43); ALLENS TEST POSITIVE; INSPIRED O2 50%; VENTILATOR YES
[2021-07-09 08:19] LABS: PATIENT TEMP 36.6
[2021-07-09 08:19] LABS: CALCIUM 9.2 MG/DL (8.5-10.1)
[2021-07-09 08:20] LABS: TOTAL PROTEIN 6.6 GM/DL (6.4-8.2)
[2021-07-09 08:22] LABS: BILIRUBIN,TOTAL 0.6 MG/DL (0.1-1.0)
[2021-07-09 08:23] LABS: CREATININE SERUM 0.82 MG/DL (0.60-1.30)
[2021-07-09 08:49] LABS: BILIRUBIN,URINE NEGATIVE (NEGATIVE); CLARITY,URINE CLEAR; COLOR,URINE ORANGE; GLUCOSE, URINE (UA) 1+ (NEGATIVE); KETONES,URINE NEGATIVE (NEGATIVE); LEUKOCYTE ESTERASE ,URINE TRACE (NEGATIVE); NITRITE,URINE POSITIVE (NEGATIVE); PROTEIN,URINE 1+ (NEGATIVE)
[2021-07-09 09:07] LABS: BACTERIA,URINE LARGE /HPF; RBC,URINE RARE /HPF; SQUAMOUS EPITHELIAL CELL,UR 0-2 /HPF; WBC,URINE RARE /HPF
[2021-07-09] MEDS ORDERED: ENOXAPARIN 80 MG/0.8 ML (LOVENOX) SYR SC ONE (09:15)
[2021-07-09] MEDS ORDERED: ONDANSETRON 4 MG/2 ML (SDV) Z0FRAN IV PRN (10:00)
[2021-07-09] MEDS ORDERED: LACTATED RINGERS 1,000 ML IV ONE (10:03)
[2021-07-09] MEDS: FAMOTIDINE 20 MG (PEPCID) TABLET PO SCH (10:11)
[2021-07-09] MEDS: FAMOTIDINE 20MG/2ML IV (PEPCID) IV SCH (10:16)
[2021-07-09] MEDS: LACTATED RINGERS 1,000 ML IV SCH (12:00)
[2021-07-09 12:43] LABS: FIBRIN DEGRADATION PRODUCTS 0.78 UG/ML (0.00-0.49); INR 0.9 (0.8-1.4); PROTHROMBIN TIME PATIENT 12.9 SEC (12.2-14.7)
--- NOTE | 2021-07-09 13:20 | History & Physical-Hospitalist ---
History of Present Illness HPI/Chief Complaint Patient is an 81-year-old female well known to me from previous admissions who presented to the ER due to shortness of breath. She has a long history of COPD and wears 3lpm of oxygen at baseline. When EMS was summoned and found her to be hypoxic at 83% on her 3 L. She was placed on BiPAP here and given IV steroids and improved. She was admitted to the ICU. During my exam she is breathing much better and off BiPAP. She is down to 6 L/min and is currently getting a PICC line. She reports a week history of shortness of breath and associates it with going to [employer] recently. Source: patient Date Seen 07/09/21 Time Seen by a Provider: 12:15 Attending Physician Eliud Brewer DO PCP Admitting Physician: Mary Cox MD Attending Physician: Mary Cox MD Referring Physician Date of Admission July 09, 2021 at 09:00 Home Medications & Allergies Home Medications Reviewed patient Home Medication Reconciliation performed by pharmacy medication reconciliations cable television technician and/or nursing. Patients Allergies have been reviewed. Allergies Allergies Coded Allergies sulfamethoxazole (Verified Allergy, Intermediate, Vomiting, 09/09/19) trimethoprim (Verified Allergy, Intermediate, Vomiting, 09/09/19) erythromycin base (Verified Allergy, Unknown, 09/09/19) quinine (Verified Allergy, Unknown, 09/09/19) cephalexin (Verified Adverse Reaction, Severe, CONFUSION, DIZZINESS, 03/04/20) Past Vmmebuv-Cleqqx-Vooejc Hx Patient Social History Employed/Student: retired Tobacco Use?: No Smoking Status: Never a Smoker Smokeless Tobacco Frequency: Never a User Use of E-Cig and/or Vaping dev: No Use of E-Cig and/or Vaping Jose: Never a User Substance use?: No Alcohol Use?: No Pt feels they are or have been: No Immunizations Up To Date Date of Influenza Vaccine: Nov 27, 2019 First/Initial COVID19 Vaccinat: Received but unknown date. Second COVID19 Vaccination Javier: Received but unknown date. Tetanus Booster (TDap): Unknown Hepatitis A: No Hepatitis B: No PED Vaccines UTD: No Date of Pneumonia Vaccine: Aug 20, 2017 Seasonal Allergies Seasonal Allergies: Yes Current Status status: No status: No Advance Directives: Yes Advance Directive Location: Verbally states DNR witnessed by RNx2 and physician. Communicates: Verbally Primary Language: Indonesian Preferred Spoken Language: Indonesian Is interpretation needed?: No Sensory deficits: Hearing impairment Implanted or Applied Medical D: Orthopedic hardware Past Medical History Surgeries: Abdominal, Appendectomy, Bladder Surgery, Bowel Surgery, Cardiac, Coronary Stent, Hysterectomy, Oophorectomy, Orthopedic, Tonsillectomy Pulmonary Embolism, Sleep Apnea, COPD Currently Using CPAP: No Currently Using BIPAP: No Chronic Edema/Swelling, Coronary Artery Disease, Deep Vein Thrombosis, Heart Attack, High Cholesterol, Hypertension, Peripheral Vascular Vertigo 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, Menopausal Sexually Transmitted Disease: No HIV/AIDS: No Kidney Infection, Bladder Infection, UTI-Chronic Abdominal Hernia, Gastroesophageal Reflux, Diverticulosis, Esophagitis Degenerate Disk Disease, Osteoporosis, Arthritis, Chronic Back Pain, Fractures Hypothyroidsim Dysphagia Loss of Vision: Denies Hearing Impairment: Denies Colon Did You Recieve Any Treatments: Yes What Type of Treatment Did You: Surgical Intervention Anxiety, Depression Blood Disorders: Yes (ANEMIA) Adverse Reaction/Blood Tranf: No (HAS HAD BLOOD WITH NO REACTION) HTN Hypothyroidism COPD with oxygen dependence 3 L Colon cancer s/p hemicolectomy Restless legs syndrome Family Medical History Reviewed Nursing Family Hx Family history: Hypertension G8 BROTHER Myocardial infarction 19 MOTHER G8 BROTHER Heart Disease, Hypertension SOCIAL HISTORY: -ETOH--OCCASIONAL USE IN PAST -DRUGS--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 GUZMAN IN [place] -RIGHT HEMICOLECTOMY/SMALL BOWEL RESECTION/LYSIS OF ADHESIONS/MULTIPLE FOREIGN BODIES REMOVED ( CORKSCREW TACKS FROM PREVIOUS HERNIA MESH ) 09/12/[address] NELSON -CYSTOSCOPY WITH BOTOX INJECTIONS 07/09/[address] MCDONALD. -MULTIPLE HERNIA REPAIRS WITH MESH -MULTIPLE EGD'S/COLONOSCOPIES/DILATIONS OF ESOPHAGEAL STRICTURES -CARDIAC CATHS--STENTS X 2 -KYPHOPLASTIES -APPENDECTOMY -RIGHT HIP FRACTURE ORIF WITH PIN IN HIP AND HEATHER IN FEMUR 03/2016 -HYSTERECTOMY/BILATERAL SALPINGO-OOPHORECTOMY -TONSILLECTOMY ADDITIONAL PAST MEDICAL HISTORY: -HAS 24 HOUR IN-HOME CARETAKERS -FREQUENT [place]ALLS--USES A WALKER -RESTLESS LEG SYNDROME -RIGHT PALUMBO'S CYST -MULTIPLE COMPRESSION FRACTURES WITH KYPHOPLASTIES -CHRONIC DYSPHAGIA -CHRONIC ABDOMINAL PAIN COMPLAINTS -HAS Review of Systems Constitutional: No chills, No fever EENTM: no symptoms reported Respiratory: cough, dyspnea on exertion; No phlegm; short of breath Cardiovascular: no symptoms reported Gastrointestinal: no symptoms reported Genitourinary: no symptoms reported Musculoskeletal: no symptoms reported Skin: no symptoms reported Psychiatric/Neurological: No Symptoms Reported Physical Exam Physical Exam Vital Signs Vital Signs - First Documented 07/09/21 07/09/21 07/09/21 07:35 08:12 09:50 Temp 36.6 Pulse 85 Resp 29 B/P (MAP) 139/69 Pulse Ox 100 O2 Delivery NIV Bilevel O2 Flow Rate 50.00 FiO2 50 Capillary Refill : Less Than 3 Seconds Height, Weight, BMI Height: 5'2.00" Weight: 163lbs. 0.0oz. 73.600784uq; 32.11 BMI Method:Stated General Appearance: No Apparent Distress, Chronically ill HEENT: PERRL/EOMI, Moist Mucous Membranes; No Scleral Icterus (L), No Scleral Icterus (R) Neck: Full Range of Motion, Supple Respiratory: No Accessory Muscle Use, No Respiratory Distress, Wheezing (expiratory) Cardiovascular: Regular Rate, Rhythm, No JVD, No Murmur Gastrointestinal: Normal Bowel Sounds, Non Tender, Soft Extremity: Normal Capillary Refill, No Calf Tenderness, No Pedal Edema Neurologic/Psychiatric: Alert, Oriented x3, Normal Mood/Affect Skin: Normal Color, Warm/Dry Results Results/Procedures Labs Laboratory Tests 07/09/21 07:48 07/10/21 05:20 Patient resulted labs reviewed. Imaging: Reviewed Imaging Report Imaging [facility], [place] NAME: WEST SADLER Radha [facility] REC#: [id number] PT STATUS: REG ER : 1940 PHYSICIAN: RADHA PAREDES MD ADMIT DATE: 07/09/21/ER Draft Date of Exam:05/20/22 CHEST 1 VIEW, AP/PA ONLY INDICATION: Shortness of breath Frontal chest obtained at 0748 a.m. and compared to 07/07/2021. There is cardiomegaly. There is mild central vascular prominence. There is no focal infiltrate or pneumothorax or pleural fluid. There is evidence of previous multilevel kyphoplasty. IMPRESSION: No acute process in the chest. Dictated on workstation # [id number] Dict: 07/09/21 0803 Trans: 07/09/21 0807 [facility] [id number] Interpreted by: LIANA FERNANDES MD Electronically signed by: Assessment/Plan Admission Diagnosis Acute on chronic respiratory failure Admission Status: Inpatient Order (span 2 midnights) Reason for Inpatient Admission: see below Assessment and Plan Acute on chronic respiratory failure COPD Currently on 6lpm, weaned off BiPAP Continue steroids Get CT chest as XR a couple of days ago was concerning for possible pna and CXR negative today Hold antibiotics for now No evidence of sepsis TeleICU HTN Hypothyroid RLS Continue home meds when med rec done Obesity Colon cancer s/p hemicolectomy Clinically significant, no acute management needs DVT prophylaxis: Lovenox Diagnosis/Problems Diagnosis/Problems (1) Hypothyroidism Status: Chronic (2) Chronic back pain (3) Acute and chronic respiratory failure Status: Acute (4) History of hemicolectomy Status: Chronic (5) COPD (chronic obstructive pulmonary disease) Status: Chronic (6) History of ESBL E. coli infection Status: Chronic (7) Restless leg syndrome Status: Chronic (8) Essential (primary) hypertension Status: Chronic (9) COPD exacerbation MARY COX MD July 09, 2021 13:20
--- NOTE | 2021-07-09 14:12 | Physical Therapy Evaluation ---
PT Evaluation-General Medical Diagnosis Admission Date July 09, 2021 at 09:00 Medical Diagnosis: Shortness of breath, COPD, Sepsis Onset Date: July 08, 2021 Therapy Diagnosis Therapy Diagnosis: Gait deficit, strength deficit Height/Weight Height (Feet): 5 Height (Inches): 2.00 Weight (Pounds): 163 Weight (Ounces): 0.0 Precautions Precautions/Isolations: Fall Prevention, Standard Precautions Weight Bear Status Right Lower Extremity: Right Full Weight Bearing Left Lower Extremity: Left Full Weight Bearing Referral Physician: Dr. Cox Reason for Referral: Evaluation/Treatment Medical History Pertinent Medical History: Arthritis, CAD, COPD, GERD, HTN, Hypothroidism Social History Home: Apartment Current Living Status: Alone Entry Into Home: Level Entry Prior Prior Level of Function SCALE: Activities may be completed with or without assistive devices. 0-Bcaeyjttrz-nrlvloe completes the activity by him/herself with no assistance from a helper. 5-Set-up or Clean-up Assistance-helper sets up or cleans up; patient completes activity. [place] assists only prior to or following the activity. 4-Supervision or Touching Assistance-helper provides verbal cues and/or touching/steadying and/or contact guard assistance as patient completes activity. Assistance may be provided throughout the activity or intermittently. 3-Partial/Moderate Assistance-helper does LESS THAN HALF the effort. [place] lifts, holds or supports trunk or limbs, but provides less than half the effort. 2-Substantial/Maximal Assistance-helper does MORE THAN HALF the effort. [place] lifts or holds trunk or limbs and provides more than half the effort. 5-Tvugghxdl-tjscgr does ALL the effort. Patient does none of the effort to complete the activity. Or, the assistance of 2 or more helpers is required for the patient to complete the activity. If activity was not attempted, code reason: 7-Patient Refused. 9-Not Applicable-not attempted and the patient did not perform the activity before the current illness, exacerbation or injury. 10-Not Attempted due to Environmental Limitations-(lack of equipment, weather restraints, etc.). 88-Not Attempted due to Medical Conditions or Safety Concerns. Bed Mobility: 6 Transfers (B,C,W/C): 6 Gait: 6 Indoor Mobility (Ambulation): Independent Stairs: Not Applicalbe Prior Devices Use: Walker PT Evaluation-Current Subjective Patient lying supine in bed upon PT arrival, agreeable to treatment. Patient rates pain currently at 6/10 in her throat and low back. Objective Patient Orientation: Person, Place, Time, Situation Attachments: Oxygen, Lee Catheter ROM/Strength ROM Lower Extremities WFLs bilaterally all planes Strength Lower Extremities 3/5 bilaterally all planes Sensory Vision: Functional Hearing: Functional Sensation Right Lower Extremit: Intact Sensation Left Lower Extremity: Intact Transfers Roll Left to Right (QC): 4 Sit to Lying (QC): 4 Lying to Sitting/Side of Bed(Q: 4 Sit to Stand (QC): 4 Chair/Vbt-sx-Kpete Xfer(QC): 4 Gait Does the Patient Walk?: Yes Mode of Locomotion: Walk Walk 10 feet (QC): 4 Walk 50 ft with 2 Turns(QC): 4 Walk 150 ft (QC): 4 Distance: 150 feet Gait Assistive Device: FWW Balance Sitting Static: Good Sitting Dynamic: Good Standing Static: Fair Standing Dynamic: Fair Assessment/Needs Patient tolerated treatment well. Patient performs all bed mobility with SBA and all transfers with CGA. Patient ambulates 150 feet with FWW, with CGA and verbal cues for safety, progression, balance, posture and conservation of energy. Patient ambulates with rounded shoulders, forward trunk posture, head down and presents with a narrow BRETT and shortened stride length bilaterally. Patient in bed post treatment with all needs met, nursing notified, call light in hand. Rehab Potential: Fair PT [facility] Goals Kettle Operator Head Goals PT Kettle Operator Head Goals Time Frame: Jul 30, 2021 Roll Left & Right (QC): 6 Sit to Lying (QC): 6 Lying-Sitting on Side/Bed(QC): 6 Sit to Stand (QC): 6 Chair/Jfv-fq-Rstyk Xfer(QC): 6 Toilet Transfer (QC): 6 Does the Patient Walk: Yes Walk 10 feet (QC): 6 Walk 50ft with 2 Turns (QC): 6 Walk 150 ft (QC): 6 PT Plan Problem List Problem List: Activity Tolerance, Functional Strength, Safety, Balance, Gait, Transfer, Bed Mobility, ROM Treatment/Plan Treatment Plan: Continue Plan of Care Treatment Plan: Bed Mobility, Education, Functional Activity Jose, Functional Strength, Group Therapy, Gait, Safety, Therapeutic Exercise, Transfers Treatment Duration: Aug 13, 2021 Frequency: 6 times per week Estimated Hrs Per Day: .25 hour per day Safety Risks/Education Patient Education: Gait Training, Transfer Techniques Teaching Recipient: Patient Teaching Methods: Demonstration Response to Teaching: Verbalize Understanding, Return Demonstration Time/GCodes Time In: 1337 Time Out: 1407 Total Billed Treatment Time: 30 Total Billed Treatment Visit, jassi Dos Santos JOHN A PT July 09, 2021 14:12
[2021-07-09] MEDS: methylPREDNISolone 40 MG/ML (Solu-MEDROL) VIAL IV SCH ×2 (14:13→19:52)
--- NOTE | 2021-07-09 14:32 | Diagnostic Imaging Report ---
INDICATION: Shortness of breath TECHNIQUE: Multiple contiguous axial images were obtained through the chest without the use of intravenous contrast. Auto Exposure Controls were utilized during the CT exam to meet ALARA standards for radiation dose reduction. COMPARISON: Prior chest CT of 03/04/2020 There are a few scattered borderline-sized nodes in the mediastinum which appear stable compared to the prior study and likely not of clinical significance. There are no enlarged hilar nodes. There are no enlarged axillary nodes or chest wall lesions. There is a right-sided PICC line with tip overlying the SVC. There is no pleural or pericardial fluid. Lung parenchymal windows demonstrate some dependent atelectatic changes in the lung bases as well as some peribronchial thickening. There is no consolidation or discrete mass. The patient's has had previous multilevel kyphoplasty. Visualized portions of the upper abdomen demonstrated no acute finding. IMPRESSION: Mild bibasilar dependent atelectatic change. No ida consolidation or pleural fluid. There is some peribronchial thickening in the lung bases. There are coronary artery calcifications. There are borderline-sized mediastinal nodes which are stable and likely not of clinical significance. Dictated by: Dictated on workstation # [id number]
[2021-07-09] MEDS ORDERED: LEVO112T55 PO (15:10)
[2021-07-09] MEDS ORDERED: FLUO40CR8 TOP (15:10)
[2021-07-09] MEDS ORDERED: CLON1TAB13 PO (15:10)
[2021-07-09] MEDS ORDERED: NITR100C10 PO (15:10)
[2021-07-09] MEDS ORDERED: AZIT250T12 PO (15:10)
[2021-07-09] MEDS ORDERED: FAMO20TA5 PO (15:10)
[2021-07-09] MEDS ORDERED: OXYC10TA7 PO (15:10)
[2021-07-09] MEDS ORDERED: NEOM10DR42 RIGHT EAR (15:10)
[2021-07-09] MEDS ORDERED: FLUT16SP22 NSEACH (15:10)
[2021-07-09] MEDS ORDERED: CYCL1DRO18 OU (15:10)
--- NOTE | 2021-07-09 15:22 | Tele-ICU Consult ---
History of Present Illness History of Present Illness Date Seen by Provider: July 09, 2021 Time Seen by Provider: 15:21 Date of Admission (Tele-ICU Physician , consultation) Available chart/ vitals / labs / Images reviewed H&P is from ER notes Patient's information available about PMH, Shx, Fhx allergy reviewed in EMR. ROS as per chart and RN report Now in ICU, hemodynamically stable Video assessment done using teleICU camera, rest of exam as per RN Discussed with RN. A/P Acute on chronic resp failure with AECOPD -NIPPB prn AECOPD - steroid , nebs chr hypoxix resp failure - on 3 l o2 baseline Obesity CHRONIC DYSPHAGIA CHRONIC ABDOMINAL PAIN Colon cancer s/p hemicolectomy Lines : (Central Line Necessity Reviewed) Lee: OG: Nutrition: Analgesia: Anxiety/ delirium VTE Prophylaxis: lovenox 70 x1 given in ER Stress Ulcer Prophylaxis: Glycemic Control: Plans in collaboration with bedside consultants and IM MDs. Discussed with RN to reach out if any questions or concerns A total of 31 minutes of critical care time was devoted to this patient today, required to treat and/or prevent further deterioration of critical care condition ( as above ) . Allergies and Home Medications Allergies Coded Allergies: sulfamethoxazole (Verified Allergy, Intermediate, Vomiting, 09/09/19) trimethoprim (Verified Allergy, Intermediate, Vomiting, 09/09/19) erythromycin base (Verified Allergy, Unknown, 09/09/19) quinine (Verified Allergy, Unknown, 09/09/19) cephalexin (Verified Adverse Reaction, Severe, CONFUSION, DIZZINESS, 03/04/20) Home Medications Azithromycin 250 Mg Tablet, 250 MG PO DAILY, (Reported) FILLED 07-07-2021 #6/5 DAY SUPPLY Clonazepam 1 Mg Tablet, 1 MG PO BID PRN for ANXIETY, (Reported) Diphenoxylate HCl/Atropine 1 Each Tablet, 1 EACH PO QID PRN for LOOSE STOOLS, (Reported) Duloxetine HCl 60 Mg Capsule.dr, 60 MG PO DAILY, (Reported) Ezetimibe 10 Mg Tablet, 10 MG PO DAILY, (Reported) Famotidine 20 Mg Tablet, 20 MG PO DAILY, (Reported) Fluorouracil 5 % Cream..g., 1 APPLIC TOP BID, (Reported) APPLY TO AFFECTED AREA ON FOREHEAD Fluticasone Propionate 50 Mcg/Actuation Palmer.susp, 2 SPRAY NSEACH DAILY PRN for CONGESTION, (Reported) Furosemide 20 Mg Tablet, 20 MG PO DAILY, (Reported) Levothyroxine Sodium 112 Mcg Tablet, 112 MCG PO DAILY, (Reported) Metoprolol Succinate 50 Mg Tab.er.24h, 50 MG PO DAILY, (Reported) Mirabegron 50 Mg Tab.er.24h, 50 MG PO DAILY, (Reported) Montelukast Sodium 10 Mg Tablet, 10 MG PO DAILY, (Reported) Neomycin/Polymyxin B Sulf/Hc 3.5 Mg/Ml-10,000 Unit/Ml-1 % Drops.susp, 4 DROPS RIGHT EAR TID, (Reported) ILLED 07-07-2021 #1 BOTTLE/10 DAY SUPPLY Nitrofurantoin Monohyd/M-Cryst 100 Mg Capsule, 100 MG PO BID, (Reported) FILLED 07-07-2021 #10/5 DAY SUPPLY Oxycodone HCl 10 Mg Tablet, 10 MG PO Q4H PRN for PAIN-SEVERE (8-10), (Reported) Pantoprazole Sodium 40 Mg Tablet.dr, 40 MG PO DAILY, (Reported) Potassium Chloride 10 Meq Tab.er.prt, 10 MEQ PO DAILY, (Reported) Pregabalin 150 Mg Capsule, 150 MG PO BID, (Reported) Ropinirole HCl 4 Mg Tablet, 8 MG PO HS, (Reported) TAKES 2 (4MG) TABS Temazepam 15 Mg Capsule, 15-30 MG PO HS, (Reported) cycloSPORINE 0.05 % Droperette, 1 DROP OU BID, (Reported) Past Medical/Social/Family Hx Patient Social History Employed/Student: retired Tobacco Use?: No Smoking Status: Never a Smoker Smokeless Tobacco Frequency: Never a User Use of E-Cig and/or Vaping dev: No E-Cig and/or Vaping Freq: Never a User Substance use?: No Alcohol Use?: No Pt stated abuse/neglect: No Immunizations Up To Date Influenza Vaccine Up-to-Date: No; Not Current First/Initial COVID19 Vaccinat: Received but unknown date. Second COVID19 Vaccination Javier: Received but unknown date. Tetanus Booster (TDap): Unknown Hepatitis A: No Hepatitis B: No TB Skin Test: None Date of Pneumonia Vaccine: Aug 20, 2017 Current Status status: No status: No Advance Directives: Yes Advance Directive Location: Verbally states DNR witnessed by RNx2 and physician. Communicates: Verbally Primary Language: [place] Leonean Preferred Spoken Language: [place] Leonean Is interpretation needed?: No Sensory deficits: Hearing impairment Implanted or Applied Medical D: Orthopedic hardware Past Medical History HTN Hypothyroidism COPD with oxygen dependence 3 L Colon cancer s/p hemicolectomy Restless legs syndrome Family Medical History Family Hx: SOCIAL HISTORY: -ETOH--OCCASIONAL USE IN PAST -DRUGS--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 GUZMAN IN [place] -RIGHT HEMICOLECTOMY/SMALL BOWEL RESECTION/LYSIS OF ADHESIONS/MULTIPLE FOREIGN BODIES REMOVED ( CORKSCREW TACKS FROM PREVIOUS HERNIA MESH ) 09/12/[address] NELSON -CYSTOSCOPY WITH BOTOX INJECTIONS 07/09/[address] MCDONALD. -MULTIPLE HERNIA REPAIRS WITH MESH -MULTIPLE EGD'S/COLONOSCOPIES/DILATIONS OF ESOPHAGEAL STRICTURES -CARDIAC CATHS--STENTS X 2 -KYPHOPLASTIES -APPENDECTOMY -RIGHT HIP FRACTURE ORIF WITH PIN IN HIP AND HEATHER IN FEMUR 03/2016 -HYSTERECTOMY/BILATERAL SALPINGO-OOPHORECTOMY -TONSILLECTOMY ADDITIONAL PAST MEDICAL HISTORY: -HAS 24 HOUR IN-HOME CARETAKERS -[place]QU[place]--USES A WALKER -RESTLESS LEG SYNDROME -RIGHT PALUMBO'S CYST -MULTIPLE COMPRESSION FRACTURES WITH KYPHOPLASTIES -CHRONIC DYSPHAGIA -CHRONIC ABDOMINAL PAIN COMPLAINTS -HAS Review of Systems Constitutional: see HPI Focused Exam Lactate Level 07/09/21 07:48: Lactic Acid Level 1.56 Height, Weight, BMI Height: 5'2.00" Weight: 163lbs. 0.0oz. 73.166954dk; 32.11 BMI Method:Stated Exam Exam Patient acknowledged, consented, and participated in this virtual visit which was conducted using real time audio/video Vital Signs Date Time Temp Pulse Resp B/P (MAP) Pulse Ox O2 Delivery O2 Flow Rate FiO2 07/09/21 15:00 90 17 98 High Flow N/C 6.00 07/09/21 14:00 90 18 98 High Flow N/C 6.00 5/20/22 13:00 93 07/09/21 13:00 93 20 152/83 (106) 99 OxyMask 10.00 07/09/21 12:00 84 21 96 OxyMask 10.00 07/09/21 11:22 92 High Flow N/C 6.00 07/09/21 11:00 80 21 160/85 (110) 93 OxyMask 10.00 07/09/21 10:14 36.8 86 17 140/91 (107) 93 OxyMask 10.00 07/09/21 10:00 85 07/09/21 09:50 36.6 87 16 139/69 96 OxyMask 10.00 07/09/21 08:12 90 22 99 50.00 07/09/21 07:40 Nasal Cannula 07/09/21 07:35 98 NIV Bilevel 50 07/09/21 07:35 36.6 85 29 100 Height & Weight Height: 5'2.00" Weight: 163lbs. 0.0oz. 73.923175rg; 32.11 BMI Method:Stated General Appearance: No Apparent Distress, WD/WN, Mild Distress (Respiratory) HEENT: PERRL/EOMI, Normal ENT Inspection Neck: Normal Inspection; No JVD Respiratory: Accessory Muscle Use, Decreased Breath Sounds, Wheezing Cardiovascular: Regular Rate, Rhythm, No Edema, No Murmur, Other (Heart sounds distant) Capillary Refill: Less Than 3 Seconds Extremity: Normal Inspection, No Pedal Edema Neurologic/Psychiatric: Alert, Normal Mood/Affect, Other (Alert and able to converse. Verbalizations minimal due to BiPAP/CPAP. Moves all extremities.) Results Lab Laboratory Tests 07/09/21 07:48 Assessment/Plan Assessment/Plan ` MOSHE BRYANT MD July 09, 2021 15:22
[2021-07-09] MEDS ORDERED: FLUTICASONE NASAL SPRAY (FLONASE) 16 GM BTL NS PRN (21:15)
[2021-07-09] MEDS ORDERED: clonazePAM 1 MG (KlonoPIN) TAB ONE (21:16)
[2021-07-09] MEDS ORDERED: TEMAZEPAM 15 MG (RESTORIL) CAP ONE (21:26)
[2021-07-09] MEDS: TEMAZEPAM 15 MG (RESTORIL) CAP PO PRN (21:28)
[2021-07-09] MEDS: clonazePAM 1 MG (KlonoPIN) TAB PO PRN (21:28)
[2021-07-09] MEDS ORDERED: DIPHENOXYLATE/ATROPINE 2.5MG/0.025MG (LOMOTIL) TAB PO PRN (21:45)
[2021-07-09] MEDS: PREGABALIN 150 MG (LYRICA) CAPSULE PO SCH (23:00)
[2021-07-09] MEDS ORDERED: RT-ALBUTEROL/IPRATROPIUM 3 ML (DUONEB) VIAL INH PRN (23:45)
[2021-07-10] VITALS (14 sets, daily range): BP systolic 118–162; BP diastolic 51–115
[2021-07-10] MEDS: LACTATED RINGERS 1,000 ML IV SCH ×4 (00:26→21:57)
[2021-07-10] MEDS: methylPREDNISolone 40 MG/ML (Solu-MEDROL) VIAL IV SCH ×4 (02:13→19:47)
[2021-07-10] MEDS: RT-ALBUTEROL/IPRATROPIUM 3 ML (DUONEB) VIAL INH SCH ×4 (02:29→21:09)
[2021-07-10 05:48] LABS: BASOPHILS % (AUTO) 0 % (0-10); EOSINOPHILS % (AUTO) 0 % (0-10); HEMATOCRIT 36 % (35-52); HEMOGLOBIN 11.5 g/dL (11.5-16.0); LYMPHOCYTES # (AUTO) 0.5 10^3/uL (1.0-4.0); LYMPHOCYTES % (AUTO) 6 % (12-44); MEAN CORPUSCULAR HEMOGLOBIN 28 pg (25-34); MEAN CORPUSCULAR HGB CONC 32 g/dL (32-36); MEAN CORPUSCULAR VOLUME 90 fL (80-99); MONOCYTES # (AUTO) 0.1 10^3/uL (0.0-1.0); MONOCYTES % (AUTO) 1 % (0-12); NEUTROPHILS # (AUTO) 7.1 10^3/uL (1.8-7.8); NEUTROPHILS % (AUTO) 92 % (42-75); PLATELET COUNT 185 10^3/uL (130-400); WHITE BLOOD COUNT 7.8 10^3/uL (4.3-11.0)
[2021-07-10 06:00] LABS: ALBUMIN 3.2 GM/DL (3.2-4.5); POTASSIUM 3.3 MMOL/L (3.6-5.0)
[2021-07-10] MEDS ORDERED: KCL 20 MEQ TAB (K-DUR) PO SCH (06:00)
[2021-07-10] MEDS ORDERED: POTASSIUM CL 10MEQ/50ML IVPB 50 ML IV SCH (06:00)
[2021-07-10] MEDS ORDERED: MAGNESIUM 1 GM/100 ML IVPB 100 ML IV SCH (06:00)
[2021-07-10 06:01] LABS: CALCIUM 8.8 MG/DL (8.5-10.1)
[2021-07-10 06:02] LABS: TOTAL PROTEIN 5.6 GM/DL (6.4-8.2)
[2021-07-10 06:04] LABS: BILIRUBIN,TOTAL 0.5 MG/DL (0.1-1.0)
[2021-07-10 06:05] LABS: PHOSPHORUS 2.1 MG/DL (2.3-4.7)
[2021-07-10 06:06] LABS: CREATININE SERUM 0.75 MG/DL (0.60-1.30)
[2021-07-10 06:08] LABS: MAGNESIUM 1.7 MG/DL (1.6-2.4)
[2021-07-10] MEDS: POTASSIUM CL 10MEQ/50ML IVPB 50 ML IV SCH ×4 (06:20→10:37)
[2021-07-10] MEDS: PANTOPRAZOLE 40 MG (PROTONIX) TAB PO SCH (06:20)
[2021-07-10] MEDS: LEVOTHYROXINE 112 MCG (LEVOTHROID) TAB PO SCH (06:20)
[2021-07-10 06:29] LABS: BAND NEUTROPHILS 2 %; BASOPHILS % (MANUAL) 0 %; EOSINOPHILS % (MANUAL) 0 %; LYMPHOCYTES % (MANUAL) 9 %; MONOCYTES % (MANUAL) 1 %; NEUTROPHILS % (MANUAL) 88 %
[2021-07-10 06:30] LABS: ANISOCYTOSIS MODERATE; HYPOCHROMASIA SLIGHT
[2021-07-10] MEDS: DULoxetine 30 MG (CYMBALTA) CAP PO SCH (09:09)
[2021-07-10] MEDS: MIRABEGRON 25 MG TAB (MYRBETRIQ) PO SCH (09:09)
[2021-07-10] MEDS: FAMOTIDINE 20 MG (PEPCID) TABLET PO SCH ×2 (09:09→09:13)
[2021-07-10] MEDS: meTOproloL SUCCINATE 50 MG (TOPROL XL) TAB PO SCH (09:09)
[2021-07-10] MEDS: MONTELUKAST 10 MG (SINGULAIR) TAB PO SCH (09:09)
[2021-07-10] MEDS: PREGABALIN 150 MG (LYRICA) CAPSULE PO SCH ×2 (09:10→19:47)
[2021-07-10] MEDS: FAMOTIDINE 20MG/2ML IV (PEPCID) IV SCH (09:10)
[2021-07-10] MEDS: NITROFURANTOIN 100 MG (MACROBID) CAPSULE PO SCH ×2 (09:10→19:47)
[2021-07-10] MEDS: FUROSEMIDE 20 MG (LASIX) TAB PO SCH (09:10)
[2021-07-10] MEDS: eZETimibe 10 MG (ZETIA) TABLET PO SCH (09:10)
[2021-07-10] MEDS: NEOMY/POLYM/HC (CORTISPORIN) 10 ML BTL RIGHT EAR SCH ×3 (09:10→19:48)
[2021-07-10] MEDS: KCL 10 MEQ TAB (MICRO K) PO SCH (09:13)
[2021-07-10] MEDS: ARTIFICAL TEARS 0.4 ML UNIT DOSE (REFRESH PLUS) OU SCH ×2 (09:13→19:47)
--- NOTE | 2021-07-10 10:26 | Tele-ICU Progress Note ---
Subjective Date Seen by a Provider: July 10, 2021 Time Seen by a Provider: 10:23 Subjective/Events-last exam Admitted for AECOPD, breathing still a little short, still has wheezing, on 5 lpm NC, but stable enough to go to medical floor, uses 3 lpm oxygen at home Continues on IV Medrol and albuterol CXR from 07/09 looks ok Sepsis Event Evaluation Height, Weight, BMI Height: 5'2.00" Weight: 163lbs. 0.0oz. 73.948367ly; 32.11 BMI Method:Stated Focused Exam Lactate Level 07/09/21 07:48: Lactic Acid Level 1.56 Exam Exam Patient acknowledged, consented, and participated in this virtual visit which was conducted using real time audio/video Vital Signs Date Time Temp Pulse Resp B/P (MAP) Pulse Ox O2 Delivery O2 Flow Rate FiO2 07/10/21 10:00 92 12 130/81 (97) 100 High Flow N/C 6.00 07/10/21 09:00 82 18 135/68 (90) 100 High Flow N/C 6.00 07/10/21 08:00 96 High Flow N/C 6.00 07/10/21 08:00 110 26 134/85 (101) 96 High Flow N/C 6.00 07/10/21 07:00 92 07/10/21 07:00 99 17 134/62 (86) 95 High Flow N/C 6.00 07/10/21 06:41 98 High Flow N/C 5.00 07/10/21 06:00 98 29 97 High Flow N/C 6.00 07/10/21 05:00 90 17 118/58 (78) 97 High Flow N/C 6.00 07/10/21 04:00 90 25 127/51 (76) 97 High Flow N/C 6.00 07/10/21 03:58 92 High Flow N/C 6.00 07/10/21 03:00 97 32 144/63 (90) 93 High Flow N/C 6.00 07/10/21 02:32 95 High Flow N/C 4.00 07/10/21 02:00 75 34 148/115 (126) 97 High Flow N/C 6.00 07/10/21 01:00 75 25 145/73 (97) 97 High Flow N/C 6.00 07/10/21 01:00 80 07/10/21 00:00 80 23 156/84 (108) 95 High Flow N/C 6.00 07/09/21 23:59 92 High Flow N/C 6.00 07/09/21 23:38 36.3 07/09/21 23:27 36.5 75 96 07/09/21 23:00 75 33 134/95 (108) 97 High Flow N/C 6.00 07/09/21 22:00 82 25 156/78 (104) 97 High Flow N/C 6.00 07/09/21 21:00 86 24 144/76 (98) 100 High Flow N/C 6.00 07/09/21 20:37 High Flow N/C 6.00 07/09/21 20:00 92 High Flow N/C 6.00 07/09/21 20:00 90 20 162/93 (116) 99 High Flow N/C 6.00 07/09/21 19:54 36.5 07/09/21 19:00 91 07/09/21 19:00 93 19 155/85 (108) 97 High Flow N/C 6.00 07/09/21 18:00 88 22 99 High Flow N/C 6.00 07/09/21 17:39 90 17 98 High Flow N/C 6.00 07/09/21 17:38 84 14 154/88 (110) 93 High Flow N/C 6.00 07/09/21 17:00 81 17 94 High Flow N/C 6.00 07/09/21 16:06 92 High Flow N/C 6.00 07/09/21 16:00 84 14 154/88 (110) 93 High Flow N/C 6.00 07/09/21 15:55 36.1 07/09/21 15:00 90 17 98 High Flow N/C 6.00 07/09/21 14:00 90 18 98 High Flow N/C 6.00 07/09/21 13:00 93 07/09/21 13:00 93 20 152/83 (106) 99 OxyMask 10.00 07/09/21 12:00 84 21 96 OxyMask 10.00 07/09/21 11:22 92 High Flow N/C 6.00 07/09/21 11:00 80 21 160/85 (110) 93 OxyMask 10.00 I & O 07/10/21 07:00 Intake Total 1325 ml Output Total 2200 ml Balance -875 ml Height & Weight Height: 5'2.00" Weight: 163lbs. 0.0oz. 73.659434dj; 32.11 BMI Method:Stated General Appearance: No Apparent Distress, WD/WN, Mild Distress (Respiratory) HEENT: PERRL/EOMI, Normal ENT Inspection Neck: Normal Inspection; No JVD Respiratory: Accessory Muscle Use, Decreased Breath Sounds, Wheezing Cardiovascular: Regular Rate, Rhythm, No Edema, No Murmur, Other (ankle edema is gone) Capillary Refill: Less Than 3 Seconds Gastrointestinal: normal bowel sounds, non tender, soft Extremity: Normal Inspection, No Pedal Edema Neurologic/Psychiatric: Alert, Oriented x3, Normal Mood/Affect, Other (Alert and able to converse. Verbalizations minimal due to BiPAP/CPAP. Moves all extremities.) Results Lab Laboratory Tests 07/09/21 07:48 07/10/21 05:20 Assessment/Plan Assessment/Plan Doing better than yesterday, will continue steriods, albuterol, can go to medical floor Critical Care: Critically Ill Patient LIBORIO BELLA MD July 10, 2021 10:26
--- NOTE | 2021-07-10 11:13 | Progress Note - Hospitalist ---
Subjective HPI/CC On Admission Date Seen by Provider: July 10, 2021 Patient is an 81-year-old female well known to me from previous admissions who presented to the ER due to shortness of breath. She has a long history of COPD and wears 3lpm of oxygen at baseline. When EMS was summoned and found her to be hypoxic at 83% on her 3 L. She was placed on BiPAP here and given IV steroids and improved. She was admitted to the ICU. During my exam s he is breathing much better and off BiPAP. She is down to 6 L/min and is currently getting a PICC line. She reports a week history of shortness of breath and associates it with going to [employer] recently. Subjective/Events-last exam Pt reports doing well. Breathing is better. N ocomplaints. Discussed plan to send to the floor today out of ICU and she is agreeable. She is hopeful though to be discharged in time to keep a doctor's appt she has on Monday at 830. Told her we would have to see how she is doing tomorrow. Focused Exam Lactate Level 07/09/21 07:48: Lactic Acid Level 1.56 Objective Exam Vital Signs Vital Signs Date Time Temp Pulse Resp B/P (MAP) Pulse Ox O2 Delivery O2 Flow Rate FiO2 07/10/21 10:00 92 12 130/81 (97) 100 High Flow N/C 6.00 07/09/21 23:38 36.3 07/09/21 07:35 50 Capillary Refill : Less Than 3 Seconds General Appearance: No Apparent Distress, Chronically ill Respiratory: No Respiratory Distress, Wheezing (improved from yesterday) Cardiovascular: Regular Rate, Rhythm, No Murmur Gastrointestinal: Normal Bowel Sounds, Non Tender, Soft Neurologic/Psychiatric: Alert, Oriented x3 Results/Procedures Lab Laboratory Tests 07/10/21 05:20 Patient resulted labs reviewed. Imaging: Reviewed Imaging Report Assessment/Plan Assessment and Plan Assess & Plan/Chief Complaint Acute on chronic respiratory failure COPD Currently on 5lpm, weaned off BiPAP Wears 3lpma t baseline Continue steroids MAT protocol CT chest without evidence of pna No evidence of sepsis TeleICU consulted HTN Hypothyroid RLS Anxiety Continue home meds Obesity Colon cancer s/p hemicolectomy Clinically significant, no acute management needs DVT prophylaxis: Lovenox Critical Care Critically Ill Patient MARY GORE MD July 10, 2021 11:13
[2021-07-10] MEDS: clonazePAM 1 MG (KlonoPIN) TAB PO PRN ×2 (11:18→20:06)
--- NOTE | 2021-07-10 11:51 | Physical Therapy Daily Note ---
PT Daily Note-Current Subjective Pt is alert and oriented on arrival. She is eager to get up and walk. Mental Status Patient Orientation: Person, Place, Time, Situation Attachments: Oxygen, Lee Catheter, IV Transfers SCALE: Activities may be completed with or without assistive devices. 6-Ehbvhnvylf-mamyydc completes the activity by him/herself with no assistance from a helper. 5-Set-up or Clean-up Assistance-helper sets up or cleans up; patient completes activity. [place] assists only prior to or following the activity. 4-Supervision or Touching Assistance-helper provides verbal cues and/or touching/steadying and/or contact guard assistance as patient completes activity. Assistance may be provided throughout the activity or intermittently. 3-Partial/Moderate Assistance-helper does LESS THAN HALF the effort. [place] lifts, holds or supports trunk or limbs, but provides less than half the effort. 2-Substantial/Maximal Assistance-helper does MORE THAN HALF the effort. [place] lifts or holds trunk or limbs and provides more than half the effort. 8-Ruyidfdaj-igwbrr does ALL the effort. Patient does none of the effort to complete the activity. Or, the assistance of 2 or more helpers is required for the patient to complete the activity. If activity was not attempted, code reason: 7-Patient Refused. 9-Not Applicable-not attempted and the patient did not perform the activity before the current illness, exacerbation or injury. 10-Not Attempted due to Environmental Limitations-(lack of equipment, weather restraints, etc.). 88-Not Attempted due to Medical Conditions or Safety Concerns. Roll Left & Right (QC): 3 Sit to Lying (QC): 3 Lying to Sitting/Side of Bed(Q: 3 Sit to Stand (QC): 3 Chair/Rpx-qw-Hkuzk Xfer(QC): 3 Toilet Transfer (QC): 3 Weight Bearing Right Lower Extremity: Right Full Weight Bearing Left Lower Extremity: Left Full Weight Bearing Gait Training Does the Patient Walk?: Yes Distance: 200ft Walk 10 feet (QC): 5 Walk 50 ft with 2 Turns(QC): 5 Walk 150 ft (QC): 5 Gait Persons Needed: 1 Gait Assistive Device: FWW Pt is safe with ambulation and turns. Good safety with transfers before and after. No issues. Exercises Supine Ex: LE Protocol Supine Reps: 15 Seated Therapy Exercises: LE Protocol Seated Reps: 15 Assessment Current Status: Good Progress Pt is making good progress with bed mobility and ambulation. She is eager to return home. PT [employer] Goals Longterm Goals PT Longterm Goals Time Frame: Jul 30, 2021 Roll Left & Right (QC): 6 Sit to Lying (QC): 6 Lying-Sitting on Side/Bed(QC): 6 Sit to Stand (QC): 6 Chair/Ttn-zf-Rzecm Xfer(QC): 6 Toilet Transfer (QC): 6 Does the Patient Walk: Yes Walk 10 feet (QC): 6 Walk 50ft with 2 Turns (QC): 6 Walk 150 ft (QC): 6 PT Plan Treatment/Plan Treatment Plan: Continue Plan of Care Treatment Plan: Bed Mobility, Education, Functional Activity Jose, Functional Strength, Group Therapy, Gait, Safety, Therapeutic Exercise, Transfers Treatment Duration: Aug 13, 2021 Frequency: 6 times per week Estimated Hrs Per Day: .25 hour per day Time/GCodes Time In: 1040 Time Out: 1110 Total Billed Treatment Time: 30 Total Billed Treatment 1, ex 10, gt 20 JOHN PHOENIX PT July 10, 2021 11:51
[2021-07-10] MEDS: ENOXAPARIN 40 MG/0.4 ML (LOVENOX) SYR SQ SCH (14:12)
[2021-07-10] MEDS: rOPINIRole 1 MG (REQUIP) TABLET PO SCH (19:47)
[2021-07-10] MEDS: TEMAZEPAM 15 MG (RESTORIL) CAP PO PRN (20:06)
[2021-07-11] VITALS (7 sets, daily range): BP systolic 127–188; BP diastolic 70–89
[2021-07-11] MEDS: methylPREDNISolone 40 MG/ML (Solu-MEDROL) VIAL IV SCH ×4 (01:48→19:51)
[2021-07-11] MEDS: RT-ALBUTEROL/IPRATROPIUM 3 ML (DUONEB) VIAL INH SCH ×4 (02:22→20:14)
[2021-07-11] MEDS: LEVOTHYROXINE 112 MCG (LEVOTHROID) TAB PO SCH (06:21)
[2021-07-11] MEDS: PANTOPRAZOLE 40 MG (PROTONIX) TAB PO SCH (06:21)
[2021-07-11 06:37] LABS: BASOPHILS % (AUTO) 0 % (0-10); EOSINOPHILS % (AUTO) 0 % (0-10); HEMATOCRIT 37 % (35-52); HEMOGLOBIN 11.5 g/dL (11.5-16.0); LYMPHOCYTES # (AUTO) 0.7 10^3/uL (1.0-4.0); LYMPHOCYTES % (AUTO) 12 % (12-44); MEAN CORPUSCULAR HEMOGLOBIN 29 pg (25-34); MEAN CORPUSCULAR HGB CONC 31 g/dL (32-36); MEAN CORPUSCULAR VOLUME 91 fL (80-99); MONOCYTES # (AUTO) 0.1 10^3/uL (0.0-1.0); MONOCYTES % (AUTO) 1 % (0-12); NEUTROPHILS # (AUTO) 4.8 10^3/uL (1.8-7.8); NEUTROPHILS % (AUTO) 85 % (42-75); PLATELET COUNT 177 10^3/uL (130-400); WHITE BLOOD COUNT 5.7 10^3/uL (4.3-11.0)
[2021-07-11 07:03] LABS: ALBUMIN 3.2 GM/DL (3.2-4.5); BILIRUBIN,TOTAL 0.3 MG/DL (0.1-1.0); CALCIUM 8.9 MG/DL (8.5-10.1); CREATININE SERUM 0.82 MG/DL (0.60-1.30); MAGNESIUM 1.7 MG/DL (1.6-2.4); PHOSPHORUS 2.4 MG/DL (2.3-4.7); POTASSIUM 3.9 MMOL/L (3.6-5.0); TOTAL PROTEIN 5.5 GM/DL (6.4-8.2)
[2021-07-11] MEDS: ARTIFICAL TEARS 0.4 ML UNIT DOSE (REFRESH PLUS) OU SCH ×2 (08:04→19:51)
[2021-07-11] MEDS: LACTATED RINGERS 1,000 ML IV SCH ×2 (08:04→17:13)
[2021-07-11] MEDS: NEOMY/POLYM/HC (CORTISPORIN) 10 ML BTL RIGHT EAR SCH ×3 (08:05→19:52)
[2021-07-11] MEDS: NITROFURANTOIN 100 MG (MACROBID) CAPSULE PO SCH (08:05)
[2021-07-11] MEDS: PREGABALIN 150 MG (LYRICA) CAPSULE PO SCH ×2 (08:05→19:52)
[2021-07-11] MEDS: MONTELUKAST 10 MG (SINGULAIR) TAB PO SCH (08:05)
[2021-07-11] MEDS: KCL 10 MEQ TAB (MICRO K) PO SCH (08:05)
[2021-07-11] MEDS: MIRABEGRON 25 MG TAB (MYRBETRIQ) PO SCH (08:05)
[2021-07-11] MEDS: eZETimibe 10 MG (ZETIA) TABLET PO SCH (08:05)
[2021-07-11] MEDS: FUROSEMIDE 20 MG (LASIX) TAB PO SCH (08:06)
[2021-07-11] MEDS: DULoxetine 30 MG (CYMBALTA) CAP PO SCH (08:06)
[2021-07-11] MEDS: FAMOTIDINE 20 MG (PEPCID) TABLET PO SCH (08:06)
[2021-07-11] MEDS: meTOproloL SUCCINATE 50 MG (TOPROL XL) TAB PO SCH ×2 (10:04→12:33)
[2021-07-11] MEDS: ENOXAPARIN 40 MG/0.4 ML (LOVENOX) SYR SQ SCH ×2 (12:33→12:34)
--- NOTE | 2021-07-11 12:34 | Progress Note - Hospitalist ---
Subjective HPI/CC On Admission Date Seen by Provider: July 11, 2021 Patient is an 81-year-old female well known to me from previous admissions who presented to the ER due to shortness of breath. She has a long history of COPD and wears 3lpm of oxygen at baseline. When EMS was summoned and found her to be hypoxic at 83% on her 3 L. She was placed on BiPAP here and given IV steroids and improved. She was admitted to the ICU. During my exam s he is breathing much better and off BiPAP. She is down to 6 L/min and is currently getting a PICC line. She reports a week history of shortness of breath and associates it with going to [employer] recently. Subjective/Events-last exam Patient reports feeling better today. Her breathing is improved. She does have a family member at bedside today. Yessi's biggest concern is regarding her pain management appointment tomorrow scheduled at 10:[address] Zamarripa in [place]. Focused Exam Lactate Level 07/09/21 07:48: Lactic Acid Level 1.56 Objective Exam Vital Signs Vital Signs Date Time Temp Pulse Resp B/P (MAP) Pulse Ox O2 Delivery O2 Flow Rate FiO2 07/11/21 11:21 36.0 64 20 188/85 (119) 94 High Flow N/C 6.00 07/11/21 08:00 50 Capillary Refill : Less Than 3 Seconds General Appearance: No Apparent Distress, WD/WN Cardiovascular: Regular Rate, Rhythm, No Murmur Gastrointestinal: Normal Bowel Sounds, Soft Neurologic/Psychiatric: Alert, Oriented x3 Results/Procedures Lab Laboratory Tests 07/11/21 06:24 Patient resulted labs reviewed. Imaging: Reviewed Imaging Report Assessment/Plan Assessment and Plan Assess & Plan/Chief Complaint Acute on chronic respiratory failure COPD Currently on 6lpm Wears 3lpma t baseline Continue steroids MAT protocol CT chest without evidence of pna No evidence of sepsis TeleICU consulted UTI- POA Urine culture with klebsiella, resistant to Macrobid that she was prescribed on 07/07, switch to Augmentin per sensitivities and allergies HTN Hypothyroid RLS Anxiety Continue home meds Obesity Colon cancer s/p hemicolectomy Clinically significant, no acute management needs Need follow up with Dr Brooks as she is concerned about if can have another surgery. 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
[2021-07-11] MEDS: AUGMENTIN 875 MG TAB (AMOXICILLIN/CLAVULANATE) PO SCH (17:13)
[2021-07-11] MEDS: TEMAZEPAM 15 MG (RESTORIL) CAP PO PRN (19:52)
[2021-07-11] MEDS: rOPINIRole 1 MG (REQUIP) TABLET PO SCH (19:52)
[2021-07-11] MEDS: clonazePAM 1 MG (KlonoPIN) TAB PO PRN (19:52)
[2021-07-11] MEDS ORDERED: hydrALAZINE (APESOLINE) 20 MG/ML VIAL IV PRN (21:00)
[2021-07-12] MEDS: methylPREDNISolone 40 MG/ML (Solu-MEDROL) VIAL IV SCH ×2 (01:31→10:03)
[2021-07-12] MEDS: RT-ALBUTEROL/IPRATROPIUM 3 ML (DUONEB) VIAL INH SCH ×2 (02:11→10:23)
[2021-07-12 03:34] VITALS: BP 137/65
[2021-07-12] MEDS: LACTATED RINGERS 1,000 ML IV SCH (03:43)
[2021-07-12] MEDS: LEVOTHYROXINE 112 MCG (LEVOTHROID) TAB PO SCH (05:56)
[2021-07-12] MEDS: PANTOPRAZOLE 40 MG (PROTONIX) TAB PO SCH (05:56)
[2021-07-12 06:09] LABS: BASOPHILS % (AUTO) 0 % (0-10); EOSINOPHILS % (AUTO) 0 % (0-10); HEMATOCRIT 36 % (35-52); HEMOGLOBIN 11.2 g/dL (11.5-16.0); LYMPHOCYTES # (AUTO) 0.7 10^3/uL (1.0-4.0); LYMPHOCYTES % (AUTO) 11 % (12-44); MEAN CORPUSCULAR HEMOGLOBIN 28 pg (25-34); MEAN CORPUSCULAR HGB CONC 31 g/dL (32-36); MEAN CORPUSCULAR VOLUME 91 fL (80-99); MEAN PLATELET VOLUME 10.9 fL (9.0-12.2); MONOCYTES # (AUTO) 0.1 10^3/uL (0.0-1.0); MONOCYTES % (AUTO) 2 % (0-12); NEUTROPHILS # (AUTO) 5.8 10^3/uL (1.8-7.8); NEUTROPHILS % (AUTO) 85 % (42-75); PLATELET COUNT 183 10^3/uL (130-400); WHITE BLOOD COUNT 6.8 10^3/uL (4.3-11.0)
[2021-07-12 06:27] LABS: BILIRUBIN,TOTAL 0.3 MG/DL (0.1-1.0); CALCIUM 8.6 MG/DL (8.5-10.1); CREATININE SERUM 0.83 MG/DL (0.60-1.30); MAGNESIUM 1.6 MG/DL (1.6-2.4); PHOSPHORUS 2.5 MG/DL (2.3-4.7); POTASSIUM 3.7 MMOL/L (3.6-5.0)
[2021-07-12 07:35] VITALS: BP 175/80
--- NOTE | 2021-07-12 09:17 | Physical Therapy Daily Note ---
PT Daily Note-Current Subjective Patient is very agreeable to participate with PT. Patient is very well known by this PT. Mental Status Patient Orientation: Normal For Age Attachments: Oxygen, Lee Catheter, IV Transfers SCALE: Activities may be completed with or without assistive devices. 9-Ouwropyecx-xglnsdn completes the activity by him/herself with no assistance from a helper. 5-Set-up or Clean-up Assistance-helper sets up or cleans up; patient completes activity. [place] assists only prior to or following the activity. 4-Supervision or Touching Assistance-helper provides verbal cues and/or touching/steadying and/or contact guard assistance as patient completes activity. Assistance may be provided throughout the activity or intermittently. 3-Partial/Moderate Assistance-helper does LESS THAN HALF the effort. [place] lifts, holds or supports trunk or limbs, but provides less than half the effort. 2-Substantial/Maximal Assistance-helper does MORE THAN HALF the effort. [place] lifts or holds trunk or limbs and provides more than half the effort. 6-Vwfwjhjob-axwflx does ALL the effort. Patient does none of the effort to complete the activity. Or, the assistance of 2 or more helpers is required for the patient to complete the activity. If activity was not attempted, code reason: 7-Patient Refused. 9-Not Applicable-not attempted and the patient did not perform the activity be fore the current illness, exacerbation or injury. 10-Not Attempted due to Environmental Limitations-(lack of equipment, weather restraints, etc.). 88-Not Attempted due to Medical Conditions or Safety Concerns. Lying to Sitting/Side of Bed(Q: 4 Sit to Stand (QC): 4 Chair/Trk-kg-Oqfbp Xfer(QC): 4 Weight Bearing Right Lower Extremity: Right Full Weight Bearing Left Lower Extremity: Left Full Weight Bearing Gait Training Distance: 400' Walk 10 feet (QC): 4 Walk 50 ft with 2 Turns(QC): 4 Walk 150 ft (QC): 4 Gait Assistive Device: FWW extended UE's with FWW use/VC's for body placement in FWW Exercises Supine Ex: Ankle pumps, Quad Set, Heel Slides, Straight leg raise Supine Reps: 12 Seated Therapy Exercises: Long arc quads Seated Reps: 12 Assessment Patient up in recliner with chair alarm activated for patient safety. Patient had noted SOA with quick recovery. PT Nursing Home Goals Nursing Home Goals PT Nursing Home Goals Time Frame: Jul 30, 2021 Roll Left & Right (QC): 6 Sit to Lying (QC): 6 Lying-Sitting on Side/Bed(QC): 6 Sit to Stand (QC): 6 Chair/Bwa-ht-Kfcgz Xfer(QC): 6 Toilet Transfer (QC): 6 Does the Patient Walk: Yes Walk 10 feet (QC): 6 Walk 50ft with 2 Turns (QC): 6 Walk 150 ft (QC): 6 PT Plan Treatment/Plan Treatment Plan: Continue Plan of Care Treatment Plan: Bed Mobility, Education, Functional Activity Jose, Functional Strength, Group Therapy, Gait, Safety, Therapeutic Exercise, Transfers Treatment Duration: Aug 13, 2021 Frequency: 6 times per week Estimated Hrs Per Day: .25 hour per day Time/GCodes Time In: 821 Time Out: 844 Total Billed Treatment Time: 23 Total Billed Treatment 1 visit EX 8 min FA 15 min ORTEGA MATIAS PT July 12, 2021 09:17
[2021-07-12] MEDS: FAMOTIDINE 20 MG (PEPCID) TABLET PO SCH (10:01)
[2021-07-12] MEDS: FUROSEMIDE 20 MG (LASIX) TAB PO SCH (10:01)
[2021-07-12] MEDS: KCL 10 MEQ TAB (MICRO K) PO SCH (10:01)
[2021-07-12] MEDS: AUGMENTIN 875 MG TAB (AMOXICILLIN/CLAVULANATE) PO SCH (10:01)
[2021-07-12] MEDS: DULoxetine 30 MG (CYMBALTA) CAP PO SCH (10:01)
[2021-07-12] MEDS: MONTELUKAST 10 MG (SINGULAIR) TAB PO SCH (10:01)
[2021-07-12] MEDS: PREGABALIN 150 MG (LYRICA) CAPSULE PO SCH (10:02)
[2021-07-12] MEDS: meTOproloL SUCCINATE 50 MG (TOPROL XL) TAB PO SCH (10:02)
[2021-07-12] MEDS: eZETimibe 10 MG (ZETIA) TABLET PO SCH (10:02)
[2021-07-12] MEDS: ARTIFICAL TEARS 0.4 ML UNIT DOSE (REFRESH PLUS) OU SCH (10:02)
[2021-07-12] MEDS: MIRABEGRON 25 MG TAB (MYRBETRIQ) PO SCH (10:02)
[2021-07-12] MEDS: NEOMY/POLYM/HC (CORTISPORIN) 10 ML BTL RIGHT EAR SCH (10:03)
[2021-07-12 11:01] VITALS: BP 174/76
[2021-07-12] MEDS ORDERED: AMOX1TAB12 PO (12:22)
[2021-07-12] MEDS ORDERED: PRED10TA22 PO (12:22)
[2021-07-12 13:55] VITALS: BP 174/76
--- NOTE | 2021-07-12 19:09 | Discharge Summary ---
Discharge Summary Hospital Course Problems/Dx: (1) Hypothyroidism Status: Chronic (2) Chronic back pain (3) Acute and chronic respiratory failure Status: Acute (4) History of hemicolectomy Status: Chronic (5) COPD (chronic obstructive pulmonary disease) Status: Chronic (6) History of ESBL E. coli infection Status: Chronic (7) Restless leg syndrome Status: Chronic (8) Essential (primary) hypertension Status: Chronic (9) COPD exacerbation Hospital Course Date of Admission: July 09, 2021 at 09:00 Admission Diagnosis : Family Physician/Provider: Eliud Brewer DO Date of Discharge: 07/12/21 Discharge Diagnosis: [ ] Hospital Course: [ ] Labs and Pending Lab Test: Laboratory Tests 07/12/21 05:53: White Blood Count 6.8, Red Blood Count 3.98, Hemoglobin 11.2L, Hematocrit 36, Mean Corpuscular Volume 91, Mean Corpuscular Hemoglobin 28, Mean Corpuscular Hemoglobin Concent 31L, Red Cell Distribution Width 17.0H, Platelet Count 183, Mean Platelet Volume 10.9, Immature Granulocyte % (Auto) 2, Neutrophils (%) (Auto) 85H, Lymphocytes (%) (Auto) 11L, Monocytes (%) (Auto) 2, Eosinophils (%) (Auto) 0, Basophils (%) (Auto) 0, Neutrophils # (Auto) 5.8, Lymphocytes # (Auto) 0.7L, Monocytes # (Auto) 0.1, Eosinophils # (Auto) 0.0, Basophils # (Auto) 0.0, Immature Granulocyte # (Auto) 0.2H, Sodium Level 140, Potassium Level 3.7, Chloride Level 99, Carbon Dioxide Level 31, Anion Gap 10, Blood Urea Nitrogen 19H, Creatinine 0.83, Estimat Glomerular Filtration Rate 70, BUN/Creatinine Ratio 23, Glucose Level 169H, Calcium Level 8.6, Corrected Calcium 9.4, Phosphorus Level 2.5, Magnesium Level 1.6, Total Bilirubin 0.3, Aspartate Amino Transf (AST/SGOT) 55H, Alanine Aminotransferase (ALT/SGPT) 69H, Alkaline Phosphatase 73, Total Protein 5.0L, Albumin 3.0L Microbiology 07/09/21 Urine Culture - Final, Complete Klebsiella pneumoniae 07/09/21 Blood Culture - Preliminary, Resulted No growth Home Meds Active Prednisone 10 Mg Tab.ds.pk 10 Mg PO DAILY Take 6 tabs(60mg)daily,decrease by 1 tab(10MG)daily. Amox Tr-K Clv 875-125 mg Tab (Amoxicillin/Potassium Clav) 875 Mg-125 Mg Tablet 875 Mg PO BID WITH MEALS 5 Days Reported Levothyroxine Sodium 112 Mcg Tablet 112 Mcg PO DAILY Clonazepam 1 Mg Tablet 1 Mg PO BID PRN Oxycodone HCl 10 Mg Tablet 10 Mg PO Q4H PRN Fluticasone Propionate 50 Mcg/Actuation [place].susp 2 [place] NSEACH DAILY PRN cycloSPORINE 0.05 % Droperette 1 Drop OU BID Fluorouracil 5 % Cream..g. 1 Applic TOP BID APPLY TO AFFECTED AREA ON FOREHEAD Famotidine 20 Mg Tablet 20 Mg PO DAILY Chkelzdq-Fsfmnyhdw-Fs Ear Susp (Neomycin/Polymyxin B Sulf/Hc) 3.5 Mg/Ml-10,000 Unit/Ml-1 % Drops.susp 4 Drops RIGHT EAR TID ILLED 07-07-2021 #1 BOTTLE/10 DAY SUPPLY Diphenoxylate-Atrop 2.5-0.025 (Diphenoxylate HCl/Atropine) 1 Each Tablet 1 Each PO QID PRN Temazepam 15 Mg Capsule 15-30 Mg PO HS Potassium Chloride 10 Meq Tab.er.prt 10 Meq PO DAILY Pantoprazole Sodium 40 Mg Tablet.dr 40 Mg PO DAILY Ropinirole HCl 4 Mg Tablet 8 Mg PO HS TAKES 2 (4MG) TABS Pregabalin 150 Mg Capsule 150 Mg PO BID Myrbetriq (Mirabegron) 50 Mg Tab.er.24h 50 Mg PO DAILY Montelukast Sodium 10 Mg Tablet 10 Mg PO DAILY Duloxetine HCl 60 Mg Capsule.dr 60 Mg PO DAILY Furosemide 20 Mg Tablet 20 Mg PO DAILY Ezetimibe 10 Mg Tablet 10 Mg PO DAILY Metoprolol Succinate 50 Mg Tab.er.24h 50 Mg PO DAILY Discharge Planning: >30 minutes discharge planning Discharge Instructions Discharge Diet: Low Sodium Diet Activity as Tolerated: Yes Discharge Physical Examination Vital Signs Vital Signs Date Time Temp Pulse Resp B/P (MAP) Pulse Ox O2 Delivery O2 Flow Rate FiO2 07/12/21 13:55 36.0 66 20 174/76 96 High Flow N/C 4.00 50 Allergies: Coded Allergies: sulfamethoxazole (Verified Allergy, Intermediate, Vomiting, 09/09/19) trimethoprim (Verified Allergy, Intermediate, Vomiting, 09/09/19) erythromycin base (Verified Allergy, Unknown, 09/09/19) quinine (Verified Allergy, Unknown, 09/09/19) cephalexin (Verified Adverse Reaction, Severe, CONFUSION, DIZZINESS, 03/04/20) Discharge Summary Date of Admission July 09, 2021 at 09:00 Date of Discharge July 12, 2021 at 13:55 Admission Diagnosis Acute on chronic respiratory failure Discharge Diagnosis (1) Hypothyroidism Status: Chronic (2) Chronic back pain (3) Acute and chronic respiratory failure Status: Acute (4) History of hemicolectomy Status: Chronic (5) COPD (chronic obstructive pulmonary disease) Status: Chronic (6) History of ESBL E. coli infection Status: Chronic (7) Restless leg syndrome Status: Chronic (8) Essential (primary) hypertension Status: Chronic (9) COPD exacerbation IKE FRANK MD July 12, 2021 19:09
== END 2021-07-12 13:55 | disposition home or self-care (01) | DRG 189 ==
LOC: EDUNIT# 07:31 → ER 07:31 → ICU 09:00 → 4TH 07-10 11:09
PROVIDERS: ADMIT Family Medicine; ATTEND Family Medicine
PROC: 5A0945A Assistance with Respiratory Ventilation, 24-96 Consecutive Hours, High Flow/Velocity Cannula (ICD-10-PCS; principal; 2021-07-09)
DX: J96.20 Acute and chronic respiratory failure, unspecified whether with hypoxia or hypercapnia (principal); J44.1 Chronic obstructive pulmonary disease with (acute) exacerbation; N39.0 Urinary tract infection, site not specified; I10 Essential (primary) hypertension; E03.9 Hypothyroidism, unspecified; E66.9 Obesity, unspecified; G25.81 Restless legs syndrome; Z85.038 Personal history of other malignant neoplasm of large intestine; Z90.49 Acquired absence of other specified parts of digestive tract; G89.29 Other chronic pain; Z68.32 Body mass index [BMI] 32.0-32.9, adult; Z86.711 Personal history of pulmonary embolism; I25.10 Atherosclerotic heart disease of native coronary artery without angina pectoris; Z86.718 Personal history of other venous thrombosis and embolism; I25.2 Old myocardial infarction; E78.00 Pure hypercholesterolemia, unspecified; K21.9 Gastro-esophageal reflux disease without esophagitis; K57.90 Diverticulosis of intestine, part unspecified, without perforation or abscess without bleeding; M81.0 Age-related osteoporosis without current pathological fracture; M54.9 Dorsalgia, unspecified; F41.9 Anxiety disorder, unspecified; F32.A Depression, unspecified; R13.10 Dysphagia, unspecified; Z20.822 Contact with and (suspected) exposure to COVID-19
CPT/HCPCS: 36415; 36569; 51702; 71045; 71250; 76937; 80053; 81000; 82805; 83605; 83735; 83880; 84100; 84145; 85007; 85025; 85027; 85379; 85610; 85730; 86141; 87040; 87077; 87088; 87186; 87636; 94010; 94640; 94760; 99291

== ENCOUNTER 2021-08-19 09:24 | Emergency (ER) | payer MEDICARE, MEDICAID ==
[~2021-08-19] VITALS: Ht 149 cm; Wt 71.0 kg
[~2021-08-19 09:24] MED LIST changes: +AMOX1TAB12 PO; +CLON1TAB13 PO; +CYCL1DRO18 OU; +FAMO20TA5 PO; +FLUO40CR8 TOP
[2021-08-19 10:25] VITALS: BP 137/64
[2021-08-19 10:26] LABS: BILIRUBIN,URINE NEGATIVE (NEGATIVE); CLARITY,URINE CLEAR; COLOR,URINE YELLOW; GLUCOSE, URINE (UA) NEGATIVE (NEGATIVE); KETONES,URINE NEGATIVE (NEGATIVE); LEUKOCYTE ESTERASE ,URINE 1+ (NEGATIVE); NITRITE,URINE POSITIVE (NEGATIVE); PROTEIN,URINE NEGATIVE (NEGATIVE)
[2021-08-19 10:39] LABS: BASOPHILS % (AUTO) 1 % (0-10); EOSINOPHILS # (AUTO) 0.3 10^3/uL (0.0-0.3); EOSINOPHILS % (AUTO) 6 % (0-10); HEMATOCRIT 40 % (35-52); HEMOGLOBIN 12.9 g/dL (11.5-16.0); LYMPHOCYTES # (AUTO) 1.1 10^3/uL (1.0-4.0); LYMPHOCYTES % (AUTO) 18 % (12-44); MEAN CORPUSCULAR HEMOGLOBIN 29 pg (25-34); MEAN CORPUSCULAR HGB CONC 32 g/dL (32-36); MEAN CORPUSCULAR VOLUME 90 fL (80-99); MEAN PLATELET VOLUME 10.5 fL (9.0-12.2); MONOCYTES # (AUTO) 0.4 10^3/uL (0.0-1.0); MONOCYTES % (AUTO) 7 % (0-12); NEUTROPHILS % (AUTO) 66 % (42-75); PLATELET COUNT 256 10^3/uL (130-400)
[2021-08-19 10:39] LABS: BACTERIA,URINE MODERATE /HPF; RBC,URINE RARE /HPF; WBC,URINE 50-100 /HPF
[2021-08-19 10:40] LABS: SQUAMOUS EPITHELIAL CELL,UR RARE /HPF
[2021-08-19 10:46] LABS: POTASSIUM 3.3 MMOL/L (3.6-5.0)
[2021-08-19 10:52] LABS: CREATININE SERUM 0.92 MG/DL (0.60-1.30)
[2021-08-19 10:54] LABS: MAGNESIUM 1.8 MG/DL (1.6-2.4)
[2021-08-19] MEDS ORDERED: CIPROFLOXACIN IV 400MG/200ML 200 ML IV ONE (11:15)
--- NOTE | 2021-08-19 11:15 | ED General ---
General Chief Complaint: General Problems/Pain Stated Complaint: THROAT/GUM PAIN Nursing Triage Note: Original complaint was for mouth and gum pain ongoing x 1 week. States that she has an infection in her left eye that she was seen for yesterday and a right ear infection. She reports feeling sick last night and just overall does not feel well. Source of Information: Patient Exam Limitations: No Limitations (KARISSA CALLEJAS) History of Present Illness Date Seen by Provider: Aug 19, 2021 Time Seen by Provider: 11:11 Initial Comments Patient is a 81-year-old female who presents to ED by EMS for multiple complaints. She states originally she came to the ER for mouth and gum pain. This has been ongoing for the past week. Denies of any gum bleeding. She reports sore throat. Patient states she was seen at Dr. Joyce [facility] yesterday for infection in her left eye. Patient Was placed on eyedrops. She also states she had a right ear infection but was not treated. She has a tube in her right ear. She states she overall does not feel well. This has been intermittent over the past few days. She states she feels nauseous without vomiting or diarrhea. Generalized abdominal discomfort with weakness and fatigue. She reports some burning with urination with frequent urination over the past few days. She denies of any chest pain, cough, shortness of breath, headache, dizziness, visual changes. Patient states she feels cold. Patient is alert and orient x3. (KARISSA CALLEJAS) Allergies and Home Medications Allergies Coded Allergies: sulfamethoxazole (Verified Allergy, Intermediate, Vomiting, 09/09/19) trimethoprim (Verified Allergy, Intermediate, Vomiting, 09/09/19) erythromycin base (Verified Allergy, Unknown, 09/09/19) quinine (Verified Allergy, Unknown, 09/09/19) cephalexin (Verified Adverse Reaction, Severe, CONFUSION, DIZZINESS, 03/04/20) Patient Home Medication List Home Medication List Reviewed: Yes (KARISSA CALLEJAS) Amoxicillin/Potassium Clav (Amox Tr-K Clv 875-125 mg Tab) 875 Mg-125 Mg Tablet, 875 MG PO BID WITH MEALS Prescribed by: IKE FRANK on 07/12/21 1222 Clonazepam (Clonazepam) 1 Mg Tablet, 1 MG PO BID PRN for ANXIETY, (Reported) Entered as Reported by: PATRICK COLIN on 07/09/21 1510 Diphenoxylate HCl/Atropine (Diphenoxylate-Atrop 2.5-0.025) 1 Each Tablet, 1 EACH PO QID PRN for LOOSE STOOLS, (Reported) Entered as Reported by: TOMAS HAYS on 09/07/20 1451 Duloxetine HCl (Duloxetine HCl) 60 Mg Capsule.dr, 60 MG PO DAILY, (Reported) Entered as Reported by: TOMAS HAYS on 09/07/20 1448 Ezetimibe (Ezetimibe) 10 Mg Tablet, 10 MG PO DAILY, (Reported) Entered as Reported by: TARAN CARPENTER on 07/02/19 1122 Famotidine (Famotidine) 20 Mg Tablet, 20 MG PO DAILY, (Reported) Entered as Reported by: PATRICK SHAW on 07/09/21 1510 Fluorouracil (Fluorouracil) 5 % Cream..g., 1 APPLIC TOP BID, (Reported) Entered as Reported by: PATRICK SHAW on 07/09/21 1510 Fluticasone Propionate (Fluticasone Propionate) 50 Mcg/Actuation [place].susp, 2 SPRAY NSEACH DAILY PRN for CONGESTION, (Reported) Entered as Reported by: PATRICK SHAW on 07/09/21 1510 Furosemide (Furosemide) 20 Mg Tablet, 20 MG PO DAILY, (Reported) Entered as Reported by: PATRICK SHAW on 06/18/20 1506 Levothyroxine Sodium (Levothyroxine Sodium) 112 Mcg Tablet, 112 MCG PO DAILY, (Reported) Entered as Reported by: PATRICK SHAW on 07/09/21 1510 Metoprolol Succinate (Metoprolol Succinate) 50 Mg Tab.er.24h, 50 MG PO DAILY, (Reported) Entered as Reported by: PATRICK SHAW on 05/13/19 0828 Mirabegron (Myrbetriq) 50 Mg Tab.er.24h, 50 MG PO DAILY, (Reported) Entered as Reported by: TOMAS HAYS on 09/07/20 1448 Montelukast Sodium (Montelukast Sodium) 10 Mg Tablet, 10 MG PO DAILY, (Reported) Entered as Reported by: TOMAS HAYS on 09/07/20 1448 Neomycin/Polymyxin B Sulf/Hc (Zklmnaby-Rgqqhgmqz-Cm Ear Susp) 3.5 Mg/Ml-10,000 Unit/Ml-1 % Drops.susp, 4 DROPS RIGHT EAR TID, (Reported) Entered as Reported by: PATRICK SHAW on 07/09/21 1510 Nitrofurantoin Monohyd/M-Cryst (Macrobid 100 mg Capsule) 100 Mg Capsule, 1 TAB PO BID Prescribed by: JULIANA CAMPOS on 08/19/21 1202 Oxycodone HCl (Oxycodone HCl) 10 Mg Tablet, 10 MG PO Q4H PRN for PAIN-SEVERE (8- 10), (Reported) Entered as Reported by: PATRICK SHAW on 07/09/21 1510 Pantoprazole Sodium (Pantoprazole Sodium) 40 Mg Tablet.dr, 40 MG PO DAILY, (Reported) Entered as Reported by: TOMAS HAYS on 09/07/20 1448 Potassium Chloride (Potassium Chloride) 10 Meq Tab.er.prt, 10 MEQ PO DAILY, (Reported) Entered as Reported by: TOMAS HAYS on 09/07/20 1448 Prednisone (Prednisone) 10 Mg Tab.ds.pk, 10 MG PO DAILY Prescribed by: IKE FRANK on 07/12/21 1222 Pregabalin (Pregabalin) 150 Mg Capsule, 150 MG PO BID, (Reported) Entered as Reported by: TOMAS HAYS on 09/07/20 1448 Ropinirole HCl (Ropinirole HCl) 4 Mg Tablet, 8 MG PO HS, (Reported) Entered as Reported by: TOMAS HAYS on 09/07/20 1448 Temazepam (Temazepam) 15 Mg Capsule, 15-30 MG PO HS, (Reported) Entered as Reported by: TOMAS HAYS on 09/07/20 1448 cycloSPORINE (cycloSPORINE) 0.05 % Droperette, 1 DROP OU BID, (Reported) Entered as Reported by: PATRICK SHAW on 07/09/21 1510 Review of Systems Review of Systems Constitutional: chills, malaise, weakness EENTM: mouth pain, throat pain; No ear pain, No blurred vision, No double vision Respiratory: No cough, No short of breath Cardiovascular: No chest pain, No edema Gastrointestinal: abdominal pain; No diarrhea; nausea; No vomiting Genitourinary: No decreased output; dysuria, frequency Musculoskeletal: No back pain, No joint pain, No muscle pain, No muscle stiffness Skin: No change in color, No change in hair/nails Psychiatric/Neurological: Denies Anxiety (KARISSA CALLEJAS) All Other Systems Reviewed Negative Unless Noted: Yes (KARISSA CALLEJAS) Past Nsgbean-Dockef-Ayzadw Hx Patient Social History Tobacco Use?: No Use of E-Cig and/or Vaping dev: No Substance use?: No Alcohol Use?: No Pt feels they are or have been: No (KARISSA CALLEJAS) Immunizations Up To Date Tetanus Booster (TDap): Unknown PED Vaccines UTD: No Influenza Vaccine Up-to-Date: No; Not Current First/Initial COVID19 Vaccinat: Received but unknown date. Second COVID19 Vaccination Javier: Received but unknown date. (KARISSA CALLEJAS) Seasonal Allergies Seasonal Allergies: Yes (KARISSA CALLEJAS) Past Medical History Surgeries: Yes (R LEG HEATHER/HIP PIN; BACK-KYPHOPLASTY X3;HIATAL HERNIA X3;COLOSTOMY/REVERSAL) Abdominal, Appendectomy, Bladder Surgery, Bowel Surgery, Cardiac, Coronary St ent, Hysterectomy, Oophorectomy, Orthopedic, Tonsillectomy Respiratory: Yes (O2 AT 3L/NC CONTINUOUSLY) Pulmonary Embolism, Sleep Apnea, COPD Currently Using CPAP: No Currently Using BIPAP: No Cardiac: Yes (CARDIAC CATH WITH STENTS X 2;) Chronic Edema/Swelling, Coronary Artery Disease, Deep Vein Thrombosis, Heart Attack, High Cholesterol, Hypertension, Peripheral Vascular Neurological: Yes (COGNITIVE IMPAIRMENT/POOR MEMORY) Vertigo 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 Disorders: No 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, 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 Sexually Transmitted Disease: No HIV/AIDS: No Genitourinary: Yes (INCONTINENCE) Kidney Infection, Bladder Infection, UTI-Chronic Gastrointestinal: Yes (COLON CANCER DX 08/2019) Abdominal Hernia, Gastroesophageal Reflux, Diverticulosis, Esophagitis Musculoskeletal: Yes (FALLS, USES A WALKER;COMPRESSION FRACTURES; RIGHT HIP FRACTURE) Degenerate Disk Disease, Osteoporosis, Arthritis, Chronic Back Pain, Fractures Endocrine: Yes Hypothyroidsim HEENT: Yes ( DENTURES) Dysphagia Loss of Vision: Denies Hearing Impairment: Denies Cancer: Yes Colon Did You Recieve Any Treatments: Yes What Type of Treatment Did You: Surgical Intervention Psychosocial: Yes (RX DRUG ABUSE) Anxiety, Depression Integumentary: No Blood Disorders: Yes (ANEMIA) Adverse Reaction/Blood Tranf: No (HAS HAD BLOOD WITH NO REACTION) (KARISSA CALLEJAS) Family Medical History Family history: Hypertension G8 BROTHER Myocardial infarction 19 MOTHER G8 BROTHER Heart Disease, Hypertension SOCIAL HISTORY: -ETOH--OCCASIONAL USE IN PAST -DRUGS--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 GUZMAN IN [place] -RIGHT HEMICOLECTOMY/SMALL BOWEL RESECTION/LYSIS OF ADHESIONS/MULTIPLE FOREIGN BODIES REMOVED ( CORKSCREW TACKS FROM PREVIOUS HERNIA MESH ) 09/12/[address] NELSON -CYSTOSCOPY WITH BOTOX INJECTIONS 07/09/[address] MCDONALD. -MULTIPLE HERNIA REPAIRS WITH MESH -MULTIPLE EGD'S/COLONOSCOPIES/DILATIONS OF ESOPHAGEAL STRICTURES -CARDIAC CATHS--STENTS X 2 -KYPHOPLASTIES -APPENDECTOMY -RIGHT HIP FRACTURE ORIF WITH PIN IN HIP AND HEATHER IN [place] 03/2016 -HYSTERECTOMY/BILATERAL SALPINGO-OOPHORECTOMY -TONSILLECTOMY ADDITIONAL PAST MEDICAL HISTORY: -HAS 24 HOUR IN-HOME CARETAKERS -FREQUENT FALLS--USES A WALKER -RESTLESS LEG SYNDROME -RIGHT PALUMBO'S CYST -MULTIPLE COMPRESSION FRACTURES WITH KYPHOPLASTIES -CHRONIC DYSPHAGIA -CHRONIC ABDOMINAL PAIN COMPLAINTS -HAS (KARISSA CALLEJAS) Physical Exam Vital Signs Vital Signs - First Documented 08/19/21 09:25 Temp 36.6 Pulse 68 Resp 18 B/P (MAP) 145/80 (101) Pulse Ox 96 O2 Delivery Room Air (RADHA PAREDES MD) Vital Signs Capillary Refill : Less Than 3 Seconds (KARISSA CALLEJAS) Height, Weight, BMI Height: 5'2.00" Weight: 163lbs. 0.0oz. [id number]; 31.00 BMI Method:Stated General Appearance: No Apparent Distress, WD/WN Eyes: Bilateral Eye Normal Inspection, Bilateral Eye PERRL, Bilateral Eye EOMI HEENT: PERRL/EOMI, TMs Normal, Other (Left TM with mild erythema. Right TM with tympanostomy with scar tissue) Neck: No Full Range of Motion Respiratory: Chest Non Tender, Lungs Clear Cardiovascular: Regular Rate, Rhythm, No Edema, No Gallop, No JVD Gastrointestinal: Normal Bowel Sounds, No Organomegaly, No Pulsatile Mass Back: Normal Inspection Extremity: Normal Capillary Refill, Normal Inspection, Normal Range of Motion, Non Tender Skin: Normal Color, Warm/Dry (KARISSA CALLEJAS) Progress/Results/Core Measures Suspected Sepsis Recent Fever Within 48 Hours: No New/Unexplained Altered Menta: No SIRS Temperature: Pulse: 68 Respiratory Rate: 18 Laboratory Tests 08/19/21 10:10: White Blood Count 6.0 Blood Pressure 137 /64 Mean: 88 Laboratory Tests 08/19/21 10:10: Creatinine 0.92, Platelet Count 256 (KARISSA CALLEJAS) Results/Orders Lab Results Laboratory Tests Test 08/19/21 09:40 08/19/21 09:57 08/19/21 10:10 Range/Units Influenza Type A (RT-PCR) Not Detected Not Detecte Influenza Type B (RT-PCR) Not Detected Not Detecte SARS-CoV-2 RNA (RT-PCR) Not Detected Not Detecte Urine Color YELLOW Urine Clarity CLEAR Urine pH 6.0 5-9 Urine Specific Gay 1.025 H 1.016-1.022 Urine Protein NEGATIVE NEGATIVE Urine Glucose (UA) NEGATIVE NEGATIVE Urine Ketones NEGATIVE NEGATIVE Urine Nitrite POSITIVE H NEGATIVE Urine Bilirubin NEGATIVE NEGATIVE Urine Urobilinogen 0.2 < = 1.0 MG/DL Urine Leukocyte Esterase 1+ H NEGATIVE Urine RBC (Auto) TRACE-I H NEGATIVE Urine RBC RARE /HPF Urine WBC 50-100 H /HPF Urine Squamous Epithelial Cells RARE /HPF Urine Crystals NONE /LPF Urine Bacteria MODERATE H /HPF Urine Casts NONE /LPF Urine Mucus NEGATIVE /LPF Urine Culture Indicated YES White Blood Count 6.0 4.3-11.0 10^3/uL Red Blood Count 4.49 3.80-5.11 10^6/uL Hemoglobin 12.9 11.5-16.0 g/dL Hematocrit 40 35-52 % Mean Corpuscular Volume 90 80-99 fL Mean Corpuscular Hemoglobin 29 25-34 pg Mean Corpuscular Hemoglobin Concent 32 32-36 g/dL Red Cell Distribution Width 17.4 H 10.0-14.5 % Platelet Count 256 130-400 10^3/uL Mean Platelet Volume 10.5 9.0-12.2 fL Immature Granulocyte % (Auto) 2 % Neutrophils (%) (Auto) 66 42-75 % Lymphocytes (%) (Auto) 18 12-44 % Monocytes (%) (Auto) 7 0-12 % Eosinophils (%) (Auto) 6 0-10 % Basophils (%) (Auto) 1 0-10 % Neutrophils # (Auto) 4.0 1.8-7.8 10^3/uL Lymphocytes # (Auto) 1.1 1.0-4.0 10^3/uL Monocytes # (Auto) 0.4 0.0-1.0 10^3/uL Eosinophils # (Auto) 0.3 0.0-0.3 10^3/uL Basophils # (Auto) 0.0 0.0-0.1 10^3/uL Immature Granulocyte # (Auto) 0.1 0.0-0.1 10^3/uL Sodium Level 141 135-145 MMOL/L Potassium Level 3.3 L 3.6-5.0 MMOL/L Chloride Level 103 98-107 MMOL/L Carbon Dioxide Level 28 21-32 MMOL/L Anion Gap 10 5-14 MMOL/L Blood Urea Nitrogen 17 7-18 MG/DL Creatinine 0.92 0.60-1.30 MG/DL Estimat Glomerular Filtration Rate 62 BUN/Creatinine Ratio 18 Glucose Level 109 H 70-105 MG/DL Calcium Level 9.0 8.5-10.1 MG/DL Magnesium Level 1.8 1.6-2.4 MG/DL (RADHA PAREDES MD) Micro Results Microbiology 08/19/21 Urine Culture - Preliminary, Resulted Gram Negative Bacillus 1 (RADHA PAREDES MD) My Orders Orders - RADHA PAREDES MD Covid 19 Inhouse Test (08/19/21 09:27) Influenza A And B By Pcr (08/19/21 09:27) Ua Culture If Indicated (08/19/21 10:21) Basic Metabolic Panel (08/19/21 10:33) Cbc With Automated Diff (08/19/21 10:33) Magnesium (08/19/21 10:33) Ed Iv/Invasive Line Start (08/19/21 10:33) Urine Culture (08/19/21 09:57) (RADHA PAREDES MD) Vital Signs/I&O 08/19/21 08/19/21 09:25 10:25 Temp 36.6 36.7 Pulse 68 68 Resp 18 18 B/P (MAP) 145/80 (101) 137/64 Pulse Ox 96 96 O2 Delivery Room Air Room Air (RADHA PAREDES MD) Vital Signs/I&O Capillary Refill : Less Than 3 Seconds (KARISSA CALLEJAS) Blood Pressure Mean: 88 Departure Communication (PCP) Patient presents ED with sore throat gums pain. No erythema, swelling, exudate. Does not appear to be strep. Patient has no meningeal signs. No change in mental status. She was requesting COVID swab which was negative. Her lab work was otherwise unremarkable here normal kidney function, liver function and white blood count. Vital signs stable. Her urine did show evidence of UTI. Patient was given initial dose of Cipro here. Initially she told me she was not able to tolerate Macrobid but then states she has taken medication in the past. Due to normal renal function avoiding fluoroquinolones due to medication contradiction I will attempt Macrobid for 5 days for the UTI. She is not altered or confused. She does not appear toxic or septic. Recommend recheck with urinalysis with her primary care physician in 4 to 5 days. Discussed oral hydration. Son picked up patient here in the ER. Continue observing at home. (KARISSA CALLEJAS) Impression Primary Impression: UTI (urinary tract infection) Disposition: 01 HOME, SELF-CARE Condition: Stable Departure-Patient Inst. Decision time for Depature: 11:57 (KARISSA CALLEJAS) Referrals: TORIBIO FOFANA DO (PCP/Family) Primary Care Physician Patient Instructions: Urinary Tract Infection, Adult (DC) Scripts Nitrofurantoin Monohyd/M-Cryst (Macrobid 100 mg Capsule) 100 Mg Capsule 1 TAB PO BID for 5 Days, #10 CAP Prov: KARISSA CALLEJAS 08/19/21 ATTENDING PHYSICIAN NOTE: I was physically present as attending physician in the emergency department during the care of this patient. I received report from EMS and placed the initial orders. Care was assumed by JULIANA Chi. I was not otherwise directly involved in the decision making or delivery of care for this patient. (RADHA PAREDES MD) KARISSA CALLEJAS Aug 19, 2021 11:15 RADHA PAREDES MD Aug 20, 2021 20:31
[2021-08-19] MEDS ORDERED: NITR-65 PO (12:02)
== END 2021-08-19 12:48 | disposition home or self-care (01) ==
LOC: EDUNIT# 09:24 → ER 09:25
DX: N39.0 Urinary tract infection, site not specified (principal); J02.9 Acute pharyngitis, unspecified; K08.89 Other specified disorders of teeth and supporting structures; J44.9 Chronic obstructive pulmonary disease, unspecified; Z99.81 Dependence on supplemental oxygen; Z96.22 Myringotomy tube(s) status; Z20.822 Contact with and (suspected) exposure to COVID-19
CPT/HCPCS: 36415; 80048; 81000; 83735; 85025; 87077; 87088; 87186; 87636

== ENCOUNTER 2021-08-25 12:24 | Outpatient (CLI) | payer MEDICARE, MEDICAID ==
[~2021-08-25] VITALS: Ht 149 cm; Wt 71.0 kg
[2021-08-25] MEDS ORDERED: ZOLEDRONATE (NON-FORMULARY) 100 ML IV ONE (12:45)
[2021-08-25 13:02] VITALS: BP 135/81
== END 2021-08-25 13:45 | disposition home or self-care (01) ==
LOC: SDC 12:24
PROVIDERS: ATTEND Internal Medicine
DX: M81.0 Age-related osteoporosis without current pathological fracture (principal)
CPT/HCPCS: 96365

== ENCOUNTER 2021-09-15 13:44 | Outpatient (RCR) | payer MEDICARE, MEDICAID ==
[2021-09-15 14:13] LABS: BASOPHILS # (AUTO) 0.1 10^3/uL (0.0-0.1); BASOPHILS % (AUTO) 1 % (0-10); EOSINOPHILS # (AUTO) 0.4 10^3/uL (0.0-0.3); EOSINOPHILS % (AUTO) 6 % (0-10); HEMATOCRIT 47 % (35-52); HEMOGLOBIN 14.9 g/dL (11.5-16.0); LYMPHOCYTES # (AUTO) 2.1 10^3/uL (1.0-4.0); LYMPHOCYTES % (AUTO) 33 % (12-44); MEAN CORPUSCULAR HEMOGLOBIN 28 pg (25-34); MEAN CORPUSCULAR HGB CONC 32 g/dL (32-36); MEAN CORPUSCULAR VOLUME 89 fL (80-99); MEAN PLATELET VOLUME 10.9 fL (9.0-12.2); MONOCYTES # (AUTO) 0.5 10^3/uL (0.0-1.0); MONOCYTES % (AUTO) 8 % (0-12); NEUTROPHILS # (AUTO) 3.2 10^3/uL (1.8-7.8); NEUTROPHILS % (AUTO) 51 % (42-75); PLATELET COUNT 319 10^3/uL (130-400); WHITE BLOOD COUNT 6.3 10^3/uL (4.3-11.0)
[2021-09-15 14:40] LABS: ALBUMIN 4.4 GM/DL (3.2-4.5); BILIRUBIN,TOTAL 0.8 MG/DL (0.1-1.0); CALCIUM 10.2 MG/DL (8.5-10.1); CREATININE SERUM 1.55 MG/DL (0.60-1.30); POTASSIUM 4.4 MMOL/L (3.6-5.0); TOTAL PROTEIN 7.2 GM/DL (6.4-8.2)
== END 2021-09-16 14:10 | disposition still patient (30) ==
LOC: ONC 13:44
PROVIDERS: ATTEND Internal Medicine Hematology & Oncology
DX: C18.9 Malignant neoplasm of colon, unspecified (principal)
CPT/HCPCS: 36415; 80053; 85025; 99213

== ENCOUNTER → 2021-09-27 | Outpatient (CLI) | payer MEDICARE, MEDICAID | LOC: RAD 13:15 | PROVIDERS: ATTEND Internal Medicine Hematology & Oncology | DX: Z53.9 Procedure and treatment not carried out, unspecified reason (principal) ==

== ENCOUNTER → 2021-11-04 | Outpatient (CLI) | payer MEDICARE, MEDICAID ==
[~2021-11-04] MED LIST changes: +GADOTERATE 0.5 MMOL/ML (CLARISCAN) 15 ML VIAL IV ONE; +LEVO250T66 PO; -LVF250T PO; +POTA-177 PO; -POTA10TA37 PO
--- NOTE | 2021-11-04 15:32 | Diagnostic Imaging Report ---
PROCEDURE: MRI lumbar spine with and without contrast. TECHNIQUE: Multiplanar, multisequence MRI of the lumbar spine was performed with and without contrast. DATE: November 04, 2021. COMPARISON: Lumbar spine radiographs May 05, 2020. INDICATION: 81-year-old female, history of colon cancer. Mid and lower back pain. FINDINGS: There is a thoracolumbar dextrocurvature and a lumbosacral levocurvature. There is no evidence of a diffuse marrow infiltrating or replacing process. There are prior kyphoplasty changes at the levels of L5, T12, and T10. There are compression deformities of T9, T11, L1, L3, and L4 without visible fracture line or associated marrow edema to suggest these are acute in age. There is no otherwise identified acute fracture. There is no identified bone lesion concerning for a bone metastasis. The visualized cord and conus medullaris is unremarkable and terminates at the L2-L3 level. There is asymmetric multilevel predominantly moderate disc height loss at the level of the lumbar spine levels. T12-L1: There is diffuse disc bulge. There is mild to moderate bilateral lateral recess narrowing. The facet joints and ligamentum flavum are unremarkable. There is moderate to severe right and moderate left foraminal narrowing. There is mild to moderate spinal stenosis. L1-L2: There is mild diffuse disc bulge eccentric to the right. There are left facet degenerative changes without prominent ligamentum flavum hypertrophy. There is moderate right and severe left foraminal narrowing. There is mild spinal canal stenosis. L2-L3: There is diffuse disc bulge eccentric to the right. There are mild left facet degenerative changes. There is moderate to severe left foraminal narrowing. There is no spinal canal stenosis. L3-L4: There is mild diffuse disc bulge. There are bilateral facet degenerative changes with ligamentum flavum hypertrophy. There is moderate to severe left foraminal narrowing. There is no spinal canal stenosis. L4-L5: There is diffuse disc bulge. There is mild narrowing of bilateral lateral recesses. There are bilateral facet degenerative changes. There is moderate to severe left foraminal narrowing. There is no high-grade spinal canal stenosis. L5-S1: There is mild diffuse disc bulge. There are mild right facet degenerative changes. There is severe right and moderate to severe left foraminal narrowing. There is no spinal canal stenosis. IMPRESSION: 1. Multilevel disc and facet degenerative changes of the thoracolumbar spine as described in detail level by level above. 2. Scoliosis. 3. No bone lesion concerning for a bone metastasis. 4. Multiple compression deformities and prior kyphoplasty changes without identified acute compression deformity or other fracture. Dictated by: Dictated on workstation # [id number]
--- NOTE | 2021-11-04 17:20 | Diagnostic Imaging Report ---
MRI THORACIC SPINE W/WO CON INDICATION: Malignant neoplasm of the colon. Back pain. COMPARISON: CT thoracic spine from 05/12/2019. TECHNIQUE: Multiplanar, multisequence MR imaging of the thoracic spine was performed without and with IV contrast. FINDINGS: There is mildly exaggerated kyphosis of the thoracic spine that is stable since prior examination. Chronic compression injuries of T8, T10 and T12 have undergone vertebral augmentation and are stable in appearance since prior examination. There is no acute fracture. Chronic superior endplate fracture of T6 is unchanged since prior CT. There are no retropulsed ossific fragments into the spinal canal. The thoracic cord is normal in size and signal. There is no extradural fluid collection. On post contrast imaging, no pathologic enhancement is appreciated. No epidural mass. No sites of spinal stenosis within the thoracic spine. No neuroforaminal stenosis. IMPRESSION: 1. No osseous or soft tissue metastases in the thoracic spine. 2. Multiple old compression deformities, of which the majority have undergone kyphoplasty. No acute fracture. 3. Normal thoracic cord. Dictated by: Dictated on workstation # [id number]
== END ==
LOC: RAD 12:00
PROVIDERS: ATTEND Internal Medicine Hematology & Oncology
DX: M47.815 Spondylosis without myelopathy or radiculopathy, thoracolumbar region (principal); M51.35 Other intervertebral disc degeneration, thoracolumbar region; M47.817 Spondylosis without myelopathy or radiculopathy, lumbosacral region; M51.27 Other intervertebral disc displacement, lumbosacral region; M48.07 Spinal stenosis, lumbosacral region; M40.295 Other kyphosis, thoracolumbar region; Z85.038 Personal history of other malignant neoplasm of large intestine
CPT/HCPCS: 72157; 72158

== ENCOUNTER 2021-12-30 05:40 | Outpatient (CLI) | payer MEDICARE, MEDICAID ==
[~2021-12-30] VITALS: Ht 152.4 cm; Wt 71.2 kg
[~2021-12-30 05:40] MED LIST changes: +ALBU8.5H6 IH; +BISA5TAB20 PO; -BISA5TAB8 PO; -GADOTERATE 0.5 MMOL/ML (CLARISCAN) 15 ML VIAL IV ONE; -RT-ALBUINH IH
== END 2021-12-30 10:41 | disposition home or self-care (01) ==
LOC: PREOP 05:40
PROVIDERS: ATTEND Surgery
DX: Z01.818 Encounter for other preprocedural examination (principal)

== ENCOUNTER 2022-01-06 11:00 | Day surgery (SDC) | payer MEDICARE, MEDICAID ==
[~2022-01-06] VITALS: Ht 152.4 cm; Wt 71.2 kg
[2022-01-06] MEDS ORDERED: LACTATED RINGERS 1,000 ML IV STA (11:03)
[2022-01-06 11:15] VITALS: BP 137/78
[2022-01-06] MEDS ORDERED: HURRICAINE EXT TUBE (BENZOCAINE) XX PRN (11:15)
--- NOTE | 2022-01-06 11:40 | Progress Note-Pre Operative ---
Pre-Operative Progress Note Date of Available H&P: Dec 21, 2021 Date H&P Reviewed: Jan 06, 2022 Time H&P Reviewed: 11:37 History & Physical: H&P Reviewed, Patient Examed, No changes noted Pre-Operative Diagnosis: Dysphagia LEXUS NELSON DO Jan 06, 2022 11:40
[2022-01-06] MEDS ORDERED: proPOfol 200 MG/20 ML (DIPRIVAN) VIAL IV ONE (11:48)
--- NOTE | 2022-01-06 12:08 | Progress Note-Post Operative ---
Post-Operative Progess Note Surgeon (s)/Mechanical Design Technician (s) Surgeon LEXUS NELSON DO Mechanical Design Technician: none Pre-Operative Diagnosis Dysphagia Post-Operative Diagnosis ??Esophageal Stricture Tortuous esophagus Gastritis Hiatal hernia Procedure & Operative Findings Date of Procedure 01/06/22 Procedure Performed/Findings EGD with biopsy PROCEDURE NOTE: After informed consent was obtained, the patient was brought to the endoscopy suite, placed in bed in left lateral decubitus position. She was administered IV sedation by the STEP DOWN NURSE who then monitored vitals the entire time, heart rate, blood pressure and pulse ox and the scope was inserted down the mouth through the esophagus into the stomach. On the way down, noted a tortuous esophagus, possibly a stricture and some mild esophagitis. Took a picture of the esophagitis and pushed into the stomach; which looked inflamed. Pushed past the antrum into the duodenum; duodenum looked good. Pulled back and did a biopsy of antrum, then retroflexed the scope, saw a hiatal hernia, took a picture of this. Then pulled the scope into the GE junction, took another picture of the hiatal hernia and then did a biopsy of the GE junction as well as the distal esophagus where it looked strictured. Pushed the scope back into the stomach, suctioned all the air out of the stomach. At this point pulled the scope up the esophagus and out of the mouth. The patient tolerated the procedure, and she recovered in endoscopy suite. Anesthesia Type IV sedation by STEP DOWN NURSE Estimated Blood Loss Estimated blood loss (mL): scant Specimens/Packing Specimens Removed antral bx GE jxn bx esophageal bx LEXUS NELSON DO Jan 06, 2022 12:08
[2022-01-06 12:09] VITALS: BP 115/59
--- NOTE | 2022-01-06 12:10 | Endoscopy Discharge Instruct ---
Endo Procedure/Findings Findings 1.: Gastritis 2.: Hiatal Hernia 3.: Stricture Discharge Instructions - Activity: You might feel a little sleepy until tomorrow. This is due to the medicine you received to relax you. Until tomorrow, you should: NOT drive a car, operate machinery or power tools. NOT drink any alcoholic beverages. NOT make any important decisions or sign importortant papers. Do not return to work until tomorrow, unless otherwise instructed. Resume previous activities tomorrow. Diet: Start by taking liquids. If you tolerate liquids, advance to solid food. 1.: EGD in 1 year Notify Physician - If you experience excessive bleeding, unusual abdominal pain, fever, or chest pain, contact your doctor immediately. LEXUS NELSON DO Jan 06, 2022 12:10
[2022-01-06 12:15] VITALS: BP 112/61
[2022-01-06 12:30] VITALS: BP 136/46
[2022-01-06 12:35] VITALS: BP 136/46
--- NOTE | 2022-01-06 12:47 | Anesthesia-General Post-Op ---
MAC Patient Condition Mental Status/LOC: Same as Preop Cardiovascular: Satisfactory Nausea/Vomiting: Absent Respiratory: Satisfactory Pain: Controlled Complications: Absent Post Op Complications Complications None Follow Up Care/Instructions Patient Instructions None needed. Anesthesiology Discharge Order Discharge Order Patient is doing well, no complaints, stable vital signs, no apparent adverse anesthesia problems. No complications reported per nursing. LYNNE GONZALEZ CRNA Jan 06, 2022 12:47
== END 2022-01-06 12:40 | disposition home or self-care (01) ==
LOC: ENDO 11:00
PROVIDERS: ATTEND Surgery
DX: K29.50 Unspecified chronic gastritis without bleeding (principal); K20.90 Esophagitis, unspecified without bleeding; K44.9 Diaphragmatic hernia without obstruction or gangrene; K22.2 Esophageal obstruction; E66.9 Obesity, unspecified; Z68.30 Body mass index [BMI] 30.0-30.9, adult; Z87.891 Personal history of nicotine dependence
CPT/HCPCS: 88305; 88312

== ENCOUNTER 2022-01-14 02:48 | Inpatient (IN) | payer MEDICARE, MEDICAID ==
[~2022-01-14] VITALS: Ht 147 cm; Wt 74.2 kg
[2022-01-14] MEDS ORDERED: morphine INJ 10 MG/ML 1ML (SYR OR VIAL) IVP STA (03:16)
--- NOTE | 2022-01-14 03:16 | ED Abdominal Pain ---
General Chief Complaint: Abdominal/GI Problems Stated Complaint: ABD PAIN Nursing Triage Note: Pt presents with c/o abdominal pain and cramping. Pt states she has 4 or 5 hernias that she reports they will not fix due to her age and health condition. Source of Information: Patient Exam Limitations: No Limitations History of Present Illness Date Seen by Provider: Jan 14, 2022 Time Seen by Provider: 03:08 Initial Comments Patient is an 81-year-old female who presents to the emergency room with a chief complaint of severe abdominal pain, "cramping" and nausea. Patient has a history of "short gut" syndrome. She has had multiple prior abdominal surgeries including colectomy and multiple hernia repairs with mesh. She recently underwent EGD by Dr. Nelson about 3 days ago. She states she ate Thanksgiving dinner tonight and at about 6:00 the pain started. She states she had a really watery stool at about that time. She has been nauseous ever since. She denies fevers or chills, shortness of breath or cough. She is complaining of severe pain that comes in waves. No actual vomiting. She is concerned about a hernia that is trapped. All other review of systems reviewed and negative except as stated. Timing/Duration: 12 Hours Severity/Quality: Severe, Cramping Location: Generalized Abdomen Activities at Onset: None Modifying Factors: Worsens With Movement Associated Symptoms: Nausea/Vomiting (Nausea without vomiting), Swelling/Mass in Abdomen Allergies and Home Medications Allergies Coded Allergies: sulfamethoxazole (Verified Allergy, Intermediate, Vomiting, 09/09/19) trimethoprim (Verified Allergy, Intermediate, Vomiting, 09/09/19) erythromycin base (Verified Allergy, Unknown, 09/09/19) quinine (Verified Allergy, Unknown, 09/09/19) cephalexin (Verified Adverse Reaction, Severe, CONFUSION, DIZZINESS, 03/04/20) Patient Home Medication List Home Medication List Reviewed: Yes Ascorbate Calcium (Vitamin C) 500 Mg Tablet, 500 MG PO DAILY, (Reported) Entered as Reported by: PATRICK SHAW on 01/14/221620 Last Action: Held Biotin (Biotin) 10,000 Mcg Capsule, 10,000 MCG PO DAILY, (Reported) Entered as Reported by: PATRICK SHAW on 01/14/221620 Last Action: Held Cholecalciferol (Vitamin D3) (Vitamin D3) 25 Mcg (1000 Unit) Capsule, 25 MCG PO DAILY, (Reported) Entered as Reported by: PATRICK SHAW on 01/14/221620 Last Action: Held Clonazepam (Clonazepam) 1 Mg Tablet, 1 MG PO BID, (Reported) Entered as Reported by: PATRICK SHAW on 07/09/21 151 Last Action: Continued Clopidogrel Bisulfate (Clopidogrel) 75 Mg Tablet, 75 MG PO DAILY, (Reported) Entered as Reported by: PATRICK SHAW on 01/14/221620 Last Action: Continued Cranberry Fruit (Cranberry) 450 Mg Tablet, 450 MG PO DAILY, (Reported) Entered as Reported by: PATRICK SHAW on 01/14/221620 Last Action: Held Cyclosporine (Restasis) 0.05 % Droperette, 1 DROP OU BID, (Reported) Entered as Reported by: PATRICK SHAW on 01/14/221620 Last Action: Converted Dicyclomine HCl (Dicyclomine HCl) 10 Mg Capsule, 10 MG PO QID, (Reported) Entered as Reported by: PATRICK SHAW on 01/14/221620 Last Action: Continued Diphenoxylate HCl/Atropine (Diphenoxylate-Atrop 2.5-0.025) 1 Each Tablet, 1 EACH PO QID PRN for LOOSE STOOLS, (Reported) Entered as Reported by: TOMAS HAYS on 09/07/20 1451 Last Action: Held Duloxetine HCl (Duloxetine HCl) 60 Mg Capsule.dr, 60 MG PO DAILY, (Reported) Entered as Reported by: TOMAS HAYS on 09/07/20 1448 Last Action: Converted Ezetimibe (Ezetimibe) 10 Mg Tablet, 10 MG PO DAILY, (Reported) Entered as Reported by: TARAN CARPENTER on 07/02/19 1122 Last Action: Continued Furosemide (Furosemide) 20 Mg Tablet, 20 MG PO DAILY, (Reported) Entered as Reported by: PATRICK SHAW on 06/18/20 1506 Last Action: Continued Levothyroxine Sodium (Levothyroxine Sodium) 112 Mcg Tablet, 112 MCG PO DAILY, (Reported) Entered as Reported by: PATRICK SHAW on 07/09/21 1510 Last Action: Continued Metoprolol Succinate (Metoprolol Succinate) 50 Mg Tab.er.24h, 50 MG PO DAILY, (Reported) Entered as Reported by: PATRICK SHAW on 05/13/19 0828 Last Action: Continued Mirabegron (Myrbetriq) 50 Mg Tab.er.24h, 50 MG PO DAILY, (Reported) Entered as Reported by: TOMAS HAYS on 09/07/201447 Last Action: Converted Montelukast Sodium (Montelukast Sodium) 10 Mg Tablet, 10 MG PO DAILY, (Reported) Entered as Reported by: TOMAS HAYS on 09/07/201447 Last Action: Continued Nitrofurantoin Macrocrystal (Nitrofurantoin) 100 Mg Capsule, 100 MG PO DAILY, (Reported) Entered as Reported by: PATRICK SHAW on 01/14/221620 Last Action: Converted Ondansetron HCl (Ondansetron HCl) 4 Mg Tablet, 4 MG PO Q6H PRN for NAUSEA/VOMITING-1ST LINE, (Reported) Entered as Reported by: PATRICK SHAW on 01/14/221620 Last Action: Held Oxycodone HCl (Oxycodone HCl) 10 Mg Tablet, 10 MG PO Q4H PRN for PAIN-SEVERE (8- 10), (Reported) Entered as Reported by: PATRICK SHAW on 07/09/21 1510 Last Action: Held Pantoprazole Sodium (Pantoprazole Sodium) 40 Mg Tablet.dr, 40 MG PO DAILY, (Reported) Entered as Reported by: TOMAS HAYS on 09/07/201447 Last Action: Continued Pregabalin (Pregabalin) 150 Mg Capsule, 150 MG PO BID, (Reported) Entered as Reported by: TOMAS HAYS on 09/07/201447 Last Action: Continued Ropinirole HCl (Ropinirole HCl) 4 Mg Tablet, 8 MG PO HS, (Reported) Entered as Reported by: TOMAS HAYS on 09/07/201447 Last Action: Converted Solifenacin Succinate (Solifenacin Succinate) 5 Mg Tablet, 5 MG PO DAILY, (Reported) Entered as Reported by: PATRICK SHAW on 01/14/221620 Last Action: Converted Temazepam (Temazepam) 15 Mg Capsule, 30 MG PO HS PRN for SLEEP, (Reported) Entered as Reported by: TOMAS HAYS on 09/07/20 1448 Last Action: Continued [Potassium 20MEQ/15ML] 20MEQ LIQUID, 7.5 ML PO DAILY, (Reported) Entered as Reported by: PATRICK SHAW on 01/14/22 1621 Last Action: Held Discontinued Medications Amoxicillin/Potassium Clav (Amox Tr-K Clv 875-125 mg Tab) 875 Mg-125 Mg Tablet, 875 MG PO BID WITH MEALS Discontinued Reason: No Longer Taking Prescribed by: IKE FRANK on 07/12/21 1222 Last Action: Discontinued Famotidine (Famotidine) 20 Mg Tablet, 20 MG PO DAILY, (Reported) Discontinued Reason: No Longer Taking Entered as Reported by: PATRICK SHAW on 07/09/21 151 Last Action: Discontinued Fluorouracil (Fluorouracil) 5 % Cream..g., 1 APPLIC TOP BID, (Reported) Discontinued Reason: No Longer Taking Entered as Reported by: PATRICK SHAW on 07/09/21 151 Last Action: Discontinued Fluticasone Propionate (Fluticasone Propionate) 50 Mcg/Actuation Cameron.susp, 2 SPRAY NSEACH DAILY PRN for CONGESTION, (Reported) Discontinued Reason: No Longer Taking Entered as Reported by: PATRICK SHAW on 07/09/21 151 Last Action: Discontinued Neomycin/Polymyxin B Sulf/Hc (Pyycjybi-Weolzdvum-Ik Ear Susp) 3.5 Mg/Ml-10,000 Unit/Ml-1 % Drops.susp, 4 DROPS RIGHT EAR TID, (Reported) Discontinued Reason: No Longer Taking Entered as Reported by: PATRICK SHAW on 07/09/21 151 Last Action: Discontinued Nitrofurantoin Monohyd/M-Cryst (Macrobid 100 mg Capsule) 100 Mg Capsule, 1 TAB PO BID Discontinued Reason: No Longer Taking Prescribed by: JULIANA CAMPOS on 08/19/21 1202 Last Action: Discontinued Potassium Chloride (Potassium Chloride) 10 Meq Tab.er.prt, 10 MEQ PO DAILY, (Reported) Discontinued Reason: No Longer Taking Entered as Reported by: TOMAS HAYS on 09/07/20 1448 Last Action: Discontinued Prednisone (Prednisone) 10 Mg Tab.ds.pk, 10 MG PO DAILY Discontinued Reason: No Longer Taking Prescribed by: IKE FRANK on 07/12/21 1222 Last Action: Discontinued cycloSPORINE (cycloSPORINE) 0.05 % Droperette, 1 DROP OU BID, (Reported) Discontinued Reason: Duplicate Order Entered as Reported by: PATRICK SHAW on 07/09/21 1510 Last Action: Discontinued Review of Systems Review of Systems Constitutional: see HPI EENTM: No Symptoms Reported Respiratory: No Symptoms Reported Cardiovascular: No Symptoms Reported Gastrointestinal: Abdominal Pain, Nausea Genitourinary: No Symptoms Reported Musculoskeletal: no symptoms reported Skin: no symptoms reported Psychiatric/Neurological: Anxiety All Other Systems Reviewed Negative Unless Noted: Yes Past Svjanfp-Zkkvsp-Uqifnj Hx Immunizations Up To Date Tetanus Booster (TDap): Unknown PED Vaccines UTD: No First/Initial COVID19 Vaccinat: Received but unknown date. Second COVID19 Vaccination Javier: Received but unknown date. Third COVID19 Vaccination Date: Received but unknown date. Seasonal Allergies Seasonal Allergies: Yes Past Medical History Surgeries: Yes (R LEG HEATHER/HIP PIN; BACK-KYPHOPLASTY X3;HIATAL HERNIA X3;COLOSTOMY/REVERSAL) Abdominal, Appendectomy, Bladder Surgery, Bowel Surgery, Cardiac, Coronary Stent, Hysterectomy, Oophorectomy, Orthopedic, Tonsillectomy Respiratory: Yes (O2 AT 3L/NC CONTINUOUSLY) Pulmonary Embolism, Sleep Apnea, COPD Currently Using CPAP: No Currently Using BIPAP: No Cardiac: Yes (CARDIAC CATH WITH STENTS X 2;) Chronic Edema/Swelling, Coronary Artery Disease, Deep Vein Thrombosis, Heart Attack, High Cholesterol, Hypertension, Peripheral Vascular Neurological: Yes (COGNITIVE IMPAIRMENT/POOR MEMORY) Vertigo 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 Disorders: No STEEL TURNER History: Hysterectomy, Menopausal Sexually Transmitted Disease: No HIV/AIDS: No Genitourinary: Yes (INCONTINENCE) Kidney Infection, Bladder Infection, UTI-Chronic Gastrointestinal: Yes (COLON CANCER DX 08/2019) Abdominal Hernia, Gastroesophageal Reflux, Diverticulosis, Esophagitis Musculoskeletal: Yes (FALLS, USES A WALKER;COMPRESSION FRACTURES; RIGHT HIP FRACTURE) Degenerate Disk Disease, Osteoporosis, Arthritis, Chronic Back Pain, Fractures Endocrine: Yes Hypothyroidsim HEENT: Yes ( DENTURES) Dysphagia Loss of Vision: Denies Hearing Impairment: Denies Cancer: Yes Colon Did You Recieve Any Treatments: Yes What Type of Treatment Did You: Surgical Intervention Psychosocial: Yes (RX DRUG ABUSE) Anxiety, Depression Integumentary: No Blood Disorders: Yes (ANEMIA) Adverse Reaction/Blood Tranf: No (HAS HAD BLOOD WITH NO REACTION) Family Medical History Family history: Hypertension G8 BROTHER Myocardial infarction 19 MOTHER G8 BROTHER Heart Disease, Hypertension SOCIAL HISTORY: -ETOH--OCCASIONAL USE IN PAST -DRUGS--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 GUZMAN IN [place] -RIGHT HEMICOLECTOMY/SMALL BOWEL RESECTION/LYSIS OF ADHESIONS/MULTIPLE FOREIGN BODIES REMOVED ( CORKSCREW TACKS FROM PREVIOUS HERNIA MESH ) 09/12/[address] NELSON -CYSTOSCOPY WITH BOTOX INJECTIONS 07/09/[address] MCDONALD. -MULTIPLE HERNIA REPAIRS WITH MESH -MULTIPLE EGD'S/COLONOSCOPIES/DILATIONS OF ESOPHAGEAL STRICTURES -CARDIAC CATHS--STENTS X 2 -KYPHOPLASTIES -APPENDECTOMY -RIGHT HIP FRACTURE ORIF WITH PIN IN HIP AND HEATHER IN [place] 03/2016 -HYSTERECTOMY/BILATERAL SALPINGO-OOPHORECTOMY -TONSILLECTOMY ADDITIONAL PAST MEDICAL HISTORY: -HAS 24 HOUR IN-HOME CARETAKERS -FREQUENT FALLS--USES A WALKER -RESTLESS LEG SYNDROME -RIGHT PALUMBO'S CYST -MULTIPLE COMPRESSION FRACTURES WITH KYPHOPLASTIES -CHRONIC DYSPHAGIA -CHRONIC ABDOMINAL PAIN COMPLAINTS -HAS Physical Exam Vital Signs Vital Signs - First Documented 01/14/22 02:55 Pulse 60 Resp 18 B/P (MAP) 148/100 (116) Capillary Refill : Less Than 3 Seconds Height/Weight/BMI Height: 5'2.00" Weight: 163lbs. 0.0oz. [id number]; 32.00 BMI Method:Stated General Appearance: moderate distress, other (Appears chronically ill) HEENT: PERRL/EOMI, other (Right oral mucosa) Respiratory: lungs clear, normal breath sounds, no respiratory distress, no accessory muscle use Cardiovascular: bradycardia (40s, occasionally irregular) Gastrointestinal: soft, abnormal bowel sounds (High-pitched, tinkling bowel sounds most prominent in the left upper quadrant), guarding (voluntary to the left side of the abdomen more than the right), tenderness (Left abdomen. ventral hernia is soft.) Extremities: normal range of motion, normal inspection, no pedal edema, normal capillary refill Neurologic/Psychiatric: alert, normal mood/affect, oriented x 3 Skin: warm/dry, pallor Focused Exam Lactate Level Lactic Acid Level Laboratory Tests Test 01/14/22 03:40 Lactic Acid Level 2.68 MMOL/L (0.50-2.00) *H Progress/Results/Core Measures Results/Orders Lab Results Laboratory Tests Test 01/14/22 03:40 Range/Units White Blood Count 10.7 4.3-11.0 10^3/uL Red Blood Count 4.43 3.80-5.11 10^6/uL Hemoglobin 13.2 11.5-16.0 g/dL Hematocrit 40 35-52 % Mean Corpuscular Volume 91 80-99 fL Mean Corpuscular Hemoglobin 30 25-34 pg Mean Corpuscular Hemoglobin Concent 33 32-36 g/dL Red Cell Distribution Width 15.9 H 10.0-14.5 % Platelet Count 252 130-400 10^3/uL Mean Platelet Volume 10.1 9.0-12.2 fL Immature Granulocyte % (Auto) 2 % Neutrophils (%) (Auto) 75 42-75 % Lymphocytes (%) (Auto) 15 12-44 % Monocytes (%) (Auto) 5 0-12 % Eosinophils (%) (Auto) 2 0-10 % Basophils (%) (Auto) 1 0-10 % Neutrophils # (Auto) 8.1 H 1.8-7.8 10^3/uL Lymphocytes # (Auto) 1.7 1.0-4.0 10^3/uL Monocytes # (Auto) 0.5 0.0-1.0 10^3/uL Eosinophils # (Auto) 0.2 0.0-0.3 10^3/uL Basophils # (Auto) 0.1 0.0-0.1 10^3/uL Immature Granulocyte # (Auto) 0.2 H 0.0-0.1 10^3/uL Sodium Level 138 135-145 MMOL/L Potassium Level 3.6 3.6-5.0 MMOL/L Chloride Level 104 98-107 MMOL/L Carbon Dioxide Level 22 21-32 MMOL/L Anion Gap 12 5-14 MMOL/L Blood Urea Nitrogen 21 H 7-18 MG/DL Creatinine 0.99 0.60-1.30 MG/DL Estimat Glomerular Filtration Rate 57 BUN/Creatinine Ratio 21 Glucose Level 117 H 70-105 MG/DL Lactic Acid Level 2.68 *H 0.50-2.00 MMOL/L Calcium Level 10.2 H 8.5-10.1 MG/DL Corrected Calcium 10.4 H 8.5-10.1 MG/DL Total Bilirubin 0.5 0.1-1.0 MG/DL Aspartate Amino Transf (AST/SGOT) 13 5-34 U/L Alanine Aminotransferase (ALT/SGPT) 15 0-55 U/L Alkaline Phosphatase 75 40-136 U/L Total Protein 6.3 L 6.4-8.2 GM/DL Albumin 3.8 3.2-4.5 GM/DL Lipase 4 L 8-78 U/L My Orders Orders - TIFFANY CALDERA MD Ed Iv/Invasive Line Start (01/14/22 03:16) Cbc With Automated Diff (01/14/22 03:16) Comprehensive Metabolic Panel (01/14/22 03:16) Lipase (01/14/22 03:16) Lactic Acid Analyzer (01/14/22 03:16) Ng Tube Insert & Assessment (01/14/22 03:16) Ns Iv 1000 Ml (Sodium Chloride 0.9%) (01/14/22 03:30) Morphine Injection (Morphine Injection (01/14/22 03:16) Ondansetron Injection (Zofran Injectio (01/14/22 03:30) Ct Abdomen/Pelvis Wo (01/14/22 03:16) Ekg Tracing (01/14/22 03:16) Medications Given in ED Vital Signs/I&O 01/14/22 02:55 Pulse 60 Resp 18 B/P (MAP) 148/100 (116) Blood Pressure Mean: 116 Progress Progress Note #1: Time: 05:06 Progress Note NGT down. CT shows findings consistent with SBO. Will contact Dr Nelson for admission. Patient's labs look good. Progress Note #2: Time: 05:59 Progress Note Pain coming back. WIll give some more pain medication. Patient would like to be a DNR. Initial ECG Impression Date: Jan 14, 2022 Initial ECG Impression Time: 03:39 Initial ECG Rate: 52 Initial ECG Rhythm: S.Alonzo Initial ECG Intervals AR interval 263 QRS 115 QTc 394 Comment No ectopy noted, nonspecific ST-T wave changes inferior laterally, no ST segment elevation or depression is noted first-degree AV block Diagnostic Imaging Diagonstic Imaging: CT Comments per Stat rad report: 1. abnormally dilated loops of small bowel consistent with small bowel obstruction 2. large ventral hernia defect 3. no free air Departure Impression Primary Impression: Small bowel obstruction Disposition: ADMITTED INPATIENT Condition: Stable Admissions Decision to Admit Reason: Admit from ER (General) Decision to Admit/Date: Jan 14, 2022 Time/Decision to Admit Time: 04:58 Departure-Patient Inst. Referrals: TORIBIO FOFANA DO (PCP/Family) Primary Care Physician TIFFANY CALDERA MD Jan 14, 2022 03:16
[2022-01-14] MEDS ORDERED: NS IV 1000 ML 1,000 ML IV SCH (03:30)
[2022-01-14] MEDS ORDERED: ONDANSETRON 4 MG/2 ML (SDV) Z0FRAN IVP ONE (03:30)
[2022-01-14 03:52] LABS: BASOPHILS # (AUTO) 0.1 10^3/uL (0.0-0.1); BASOPHILS % (AUTO) 1 % (0-10); EOSINOPHILS # (AUTO) 0.2 10^3/uL (0.0-0.3); EOSINOPHILS % (AUTO) 2 % (0-10); HEMATOCRIT 40 % (35-52); HEMOGLOBIN 13.2 g/dL (11.5-16.0); LYMPHOCYTES # (AUTO) 1.7 10^3/uL (1.0-4.0); LYMPHOCYTES % (AUTO) 15 % (12-44); MEAN CORPUSCULAR HEMOGLOBIN 30 pg (25-34); MEAN CORPUSCULAR HGB CONC 33 g/dL (32-36); MEAN CORPUSCULAR VOLUME 91 fL (80-99); MEAN PLATELET VOLUME 10.1 fL (9.0-12.2); MONOCYTES # (AUTO) 0.5 10^3/uL (0.0-1.0); MONOCYTES % (AUTO) 5 % (0-12); NEUTROPHILS # (AUTO) 8.1 10^3/uL (1.8-7.8); NEUTROPHILS % (AUTO) 75 % (42-75); PLATELET COUNT 252 10^3/uL (130-400); WHITE BLOOD COUNT 10.7 10^3/uL (4.3-11.0)
[2022-01-14 04:02] LABS: ALBUMIN 3.8 GM/DL (3.2-4.5); POTASSIUM 3.6 MMOL/L (3.6-5.0)
[2022-01-14 04:03] LABS: CALCIUM 10.2 MG/DL (8.5-10.1)
[2022-01-14 04:05] LABS: TOTAL PROTEIN 6.3 GM/DL (6.4-8.2)
[2022-01-14 04:06] LABS: BILIRUBIN,TOTAL 0.5 MG/DL (0.1-1.0)
[2022-01-14 04:08] LABS: CREATININE SERUM 0.99 MG/DL (0.60-1.30)
[2022-01-14] MEDS ORDERED: fentaNYL INJ 100 MCG/2 ML AMP IVP ONE (06:15)
[2022-01-14] MEDS ORDERED: fentaNYL INJ 100 MCG/2 ML AMP IVP PRN (08:00)
[2022-01-14] MEDS ORDERED: ONDANSETRON 4 MG/2 ML (SDV) Z0FRAN IV PRN (08:00)
[2022-01-14 08:24] VITALS: BP 140/81
[2022-01-14] MEDS ORDERED: RT-ALBUTEROL/IPRATROPIUM 3 ML (DUONEB) VIAL INH PRN (08:30)
--- NOTE | 2022-01-14 08:33 | Diagnostic Imaging Report ---
EXAMINATION: CT abdomen and pelvis without contrast. TECHNIQUE: Multiple contiguous axial images were obtained through the abdomen and pelvis without the use of intravenous contrast. All CT scans use one or more of the following dose optimizing techniques: automated exposure control, MA and/or KvP adjustment based on patient size and exam type or iterative reconstruction. HISTORY: severe abdominal pain COMPARISON: 11/24/2020 FINDINGS: Lung bases: The lung bases are clear. Solid organs: The liver is normal. The gallbladder is normal. There is no biliary ductal dilation. There is atrophy of the pancreas without ductal dilatation. Spleen is normal. Adrenal glands are normal. The kidneys are normal without visualized calculus or hydronephrosis. Bowel: There is a small hiatal hernia. Surgical changes of the bowel without evidence of obstruction. There is fluid filled appearance of the small bowel which is not pathologically distended. Surgical changes from colon resection. Peritoneum: There is no intraperitoneal free fluid or free air. No suspicious lymphadenopathy. Vasculature: Calcification of the aorta without aneurysm. Musculoskeletal: Multilevel surgical degenerative changes of the spine with multilevel thoracolumbar compression fractures, many which have undergone vertebral augmentation. There is a large ventral abdominal wall hernia containing a trace amount of fluid, fat, and loops of bowel. Surgical changes of the right hip. Pelvis: The uterus is surgically absent. No adnexal mass. The urinary bladder is normal. IMPRESSION: 1. Air and fluid distention of the small bowel which are not pathologically enlarged. Findings can be seen with developing early low-grade obstruction versus ileus. 2. Agree with preliminary interpretation. Dictated by: Dictated on workstation # [id number]
[2022-01-14 08:38] VITALS: BP 129/86
--- NOTE | 2022-01-14 10:23 | Progress Note - Surgery ---
Subjective Date Seen by a Provider: Jan 14, 2022 Time Seen by a Provider: 09:15 Subjective/Events-last exam Patient is being seen in consult from [facility] ER for SBO. 81 year old female known to Dr. Brooks for previous right sided colon resection for colon cancer in 08/2019 presented to [facility] ER with a chief complaint of abdominal pain. Patient states it started around 6 yesterday evening. Pain started in the epigastric region, but has progressively gotten much worse. Patient stating now that she feels like she is dying and that she cannot stand the pain. Asking for more and stronger pain meds. States the pain is constant. Describes it as excruciating and that she feels very distended. Patient states that nothing but pain meds help with the pian. Endorses nausea and dizziness. Pain radiates to both upper quadrants. Rates the pain a 10/10. Patient states she lives at home but does have caregivers. Patient unable to answer all of my questions fully due to pain. Review of Systems General: No Chills; Fatigue Pulmonary: No Dyspnea, No Cough Cardiovascular: No: Chest Pain, Palpitations Gastrointestinal: Nausea, Abdominal Pain Genitourinary: No Dysuria, No Frequency Neurological: Weakness, Other (dizziness ) Focused Exam Lactate Level 01/14/22 03:40: Lactic Acid Level 2.68*H 01/14/22 06:24: Lactic Acid Level 2.20*H Lactic Acid Level Laboratory Tests Test 01/14/22 06:24 Lactic Acid Level 2.20 MMOL/L (0.50-2.00) *H Objective Exam Vital Signs Date Time Temp Pulse Resp B/P (MAP) Pulse Ox O2 Delivery O2 Flow Rate FiO2 01/14/22 08:38 36.0 64 18 129/86 (100) 92 Nasal Cannula 1.00 01/14/22 08:24 59 100 01/14/22 07:22 59 12 140/81 100 01/14/22 02:55 60 18 148/100 (116) Capillary Refill : Less Than 3 Seconds General Appearance: Chronically ill, Moderate Distress HEENT: PERRL/EOMI Neck: Non Tender, Supple Respiratory: Lungs Clear, Normal Breath Sounds, No Accessory Muscle Use, No Respiratory Distress Cardiovascular: Regular Rate, Rhythm, No Murmur, Normal Peripheral Pulses Gastrointestinal: No soft (firm, epigastric, ventral hernia soft ); distended (epigastric ), guarding (voluntary, generalized. ), tenderness (LUQ and epigastric ), other (NG tube in place ~500 cc's. fluid is fecal colored and foul smelling. ) Extremity: Non Tender, No Calf Tenderness Neurologic/Psychiatric: Alert, Oriented x3, Other (distressed, in pain, states she feels like she is "fading" and "dying" ) Skin: Warm/Dry, Pallor Results Lab Laboratory Tests 01/14/22 03:40: White Blood Count 10.7, Red Blood Count 4.43, Hemoglobin 13.2, Hematocrit 40, Mean Corpuscular Volume 91, Mean Corpuscular Hemoglobin 30, Mean Corpuscular Hemoglobin Concent 33, Red Cell Distribution Width 15.9H, Platelet Count 252, Mean Platelet Volume 10.1, Immature Granulocyte % (Auto) 2, Neutrophils (%) (Auto) 75, Lymphocytes (%) (Auto) 15, Monocytes (%) (Auto) 5, Eosinophils (%) (Auto) 2, Basophils (%) (Auto) 1, Neutrophils # (Auto) 8.1H, Lymphocytes # (Au to) 1.7, Monocytes # (Auto) 0.5, Eosinophils # (Auto) 0.2, Basophils # (Auto) 0.1, Immature Granulocyte # (Auto) 0.2H, Sodium Level 138, Potassium Level 3.6, Chloride Level 104, Carbon Dioxide Level 22, Anion Gap 12, Blood Urea Nitrogen 21H, Creatinine 0.99, Estimat Glomerular Filtration Rate 57, BUN/Creatinine Ratio 21, Glucose Level 117H, Lactic Acid Level 2.68*H, Calcium Level 10.2H, Corrected Calcium 10.4H, Total Bilirubin 0.5, Aspartate Amino Transf (AST/SGOT) 13, Alanine Aminotransferase (ALT/SGPT) 15, Alkaline Phosphatase 75, Total Protein 6.3L, Albumin 3.8, Lipase 4L 01/14/22 06:24: Lactic Acid Level 2.20*H LARRY ABDALLA Jan 14, 2022 10:23
--- NOTE | 2022-01-14 10:44 | Consultation - Surgery ---
LARRY ABDALLA 01/14/22 1044: History of Present Illness History of Present Illness Patient Consulted On(chris/time) 01/14/22 10:38 Date Seen by Provider: Jan 14, 2022 Time Seen by Provider: 09:15 History of Present Illness Patient being seen in consult from [facility] ER for SBO. 81 year old female known to Dr. Nelson for previous right sided colon resection for colon cancer in 08/2019 presented to [facility] ER with a chief complaint of abdominal pain. Patient states it started around 6 yesterday evening. Pain started in the epigastric region, but has progressively gotten much worse. Patient stating now that she feels like she is dying and that she cannot stand the pain. Asking for more and stronger pain meds. States the pain is constant. Describes it as excruciating and that she feels very distended. Patient states that nothing but pain meds help with the pian. Endorses nausea and dizziness. Pain radiates to both upper quadrants. Rates the pain a 10/10. Patient states she lives at home but does have caregivers. Patient unable to answer all of my questions fully due to pain. Allergies and Home Medications Allergies Coded Allergies: sulfamethoxazole (Verified Allergy, Intermediate, Vomiting, 09/09/19) trimethoprim (Verified Allergy, Intermediate, Vomiting, 09/09/19) erythromycin base (Verified Allergy, Unknown, 09/09/19) quinine (Verified Allergy, Unknown, 09/09/19) cephalexin (Verified Adverse Reaction, Severe, CONFUSION, DIZZINESS, 03/04/20) Patient Home Medication List Home Medication List Reviewed: Yes Amoxicillin/Potassium Clav (Amox Tr-K Clv 875-125 mg Tab) 875 Mg-125 Mg Tablet, 875 MG PO BID WITH MEALS Prescribed by: IKE FRANK on 07/12/21 1222 Clonazepam (Clonazepam) 1 Mg Tablet, 1 MG PO BID PRN for ANXIETY, (Reported) Entered as Reported by: PATRICK SHAW on 07/09/21 1510 Diphenoxylate HCl/Atropine (Diphenoxylate-Atrop 2.5-0.025) 1 Each Tablet, 1 EACH PO QID PRN for LOOSE STOOLS, (Reported) Entered as Reported by: TOMAS HAYS on 09/07/20 1451 Duloxetine HCl (Duloxetine HCl) 60 Mg Capsule.dr, 60 MG PO DAILY, (Reported) Entered as Reported by: TOMAS HAYS on 09/07/20 1448 Ezetimibe (Ezetimibe) 10 Mg Tablet, 10 MG PO DAILY, (Reported) Entered as Reported by: TARAN CARPENTER on 07/02/19 1122 Famotidine (Famotidine) 20 Mg Tablet, 20 MG PO DAILY, (Reported) Entered as Reported by: PATRICK SHAW on 07/09/21 1510 Fluorouracil (Fluorouracil) 5 % Cream..g., 1 APPLIC TOP BID, (Reported) Entered as Reported by: PATRICK SHAW on 07/09/21 1510 Fluticasone Propionate (Fluticasone Propionate) 50 Mcg/Actuation Sawyer.susp, 2 SPRAY NSEACH DAILY PRN for CONGESTION, (Reported) Entered as Reported by: PATRICK SHAW on 07/09/21 151 Furosemide (Furosemide) 20 Mg Tablet, 20 MG PO DAILY, (Reported) Entered as Reported by: PATRICK SHAW on 06/18/20 1506 Levothyroxine Sodium (Levothyroxine Sodium) 112 Mcg Tablet, 112 MCG PO DAILY, (Reported) Entered as Reported by: PATRICK SHAW on 07/09/21 1510 Metoprolol Succinate (Metoprolol Succinate) 50 Mg Tab.er.24h, 50 MG PO DAILY, (Reported) Entered as Reported by: PATRICK SHAW on 05/13/19 0828 Mirabegron (Myrbetriq) 50 Mg Tab.er.24h, 50 MG PO DAILY, (Reported) Entered as Reported by: TOMAS HAYS on 09/07/20 1448 Montelukast Sodium (Montelukast Sodium) 10 Mg Tablet, 10 MG PO DAILY, (Reported) Entered as Reported by: TOMAS HAYS on 09/07/20 1448 Neomycin/Polymyxin B Sulf/Hc (Wrwtaevo-Nrktgupvk-Jb Ear Susp) 3.5 Mg/Ml-10,000 Unit/Ml-1 % Drops.susp, 4 DROPS RIGHT EAR TID, (Reported) Entered as Reported by: PATRICK SHAW on 07/09/21 1510 Nitrofurantoin Monohyd/M-Cryst (Macrobid 100 mg Capsule) 100 Mg Capsule, 1 TAB PO BID Prescribed by: JULIANA CAMPOS on 08/19/21 1202 Oxycodone HCl (Oxycodone HCl) 10 Mg Tablet, 10 MG PO Q4H PRN for PAIN-SEVERE (8- 10), (Reported) Entered as Reported by: PATRICK SHAW on 07/09/21 1510 Pantoprazole Sodium (Pantoprazole Sodium) 40 Mg Tablet.dr, 40 MG PO DAILY, (Reported) Entered as Reported by: TOMAS HAYS on 09/07/20 1448 Potassium Chloride (Potassium Chloride) 10 Meq Tab.er.prt, 10 MEQ PO DAILY, (Reported) Entered as Reported by: TOMAS HAYS on 09/07/20 1448 Prednisone (Prednisone) 10 Mg Tab.ds.pk, 10 MG PO DAILY Prescribed by: IKE FRANK on 07/12/21 1222 Pregabalin (Pregabalin) 150 Mg Capsule, 150 MG PO BID, (Reported) Entered as Reported by: TOMAS HAYS on 09/07/20 1448 Ropinirole HCl (Ropinirole HCl) 4 Mg Tablet, 8 MG PO HS, (Reported) Entered as Reported by: TOMAS HAYS on 09/07/20 1448 Temazepam (Temazepam) 15 Mg Capsule, 15-30 MG PO HS, (Reported) Entered as Reported by: TOMAS AHYS on 09/07/20 1448 cycloSPORINE (cycloSPORINE) 0.05 % Droperette, 1 DROP OU BID, (Reported) Entered as Reported by: PATRICK SHAW on 07/09/21 1510 Past Llqmsar-Tyipob-Xfiumi Hx Patient Social History Drug of Choice: denies Smoking Status: Never a Smoker Former Smoker, Quit: Mar 26, 1996 Type Used: Cigarettes 2nd Hand Smoke Exposure: No Recent Hopitalizations: No Immunizations Up To Date Tetanus Booster (TDap): Unknown PED Vaccines UTD: No Date of Pneumonia Vaccine: Aug 20, 2017 Date of Influenza Vaccine: Nov 26, 2021 Seasonal Allergies Seasonal Allergies: Yes Surgeries History of Surgeries: Yes (R LEG HEATHER/HIP PIN; BACK-KYPHOPLASTY X3;HIATAL HERNIA X3;COLOSTOMY/REVERSAL) Surgeries: Abdominal, Appendectomy, Bladder Surgery, Bowel Surgery, Cardiac, Coronary Stent, Hysterectomy, Oophorectomy, Orthopedic, Tonsillectomy Respiratory History of Respiratory Disorde: Yes (O2 AT 3L/NC CONTINUOUSLY) Respiratory Disorders: Pulmonary Embolism, Sleep Apnea, COPD Cardiovascular History of Cardiac Disorders: Yes (CARDIAC CATH WITH STENTS X 2;) Cardiac Disorders: Chronic Edema/Swelling, Coronary Artery Disease, Deep Vein Thrombosis, Heart Attack, High Cholesterol, Hypertension, Peripheral Vascular Neurological History of Neurological Disord: Yes (COGNITIVE IMPAIRMENT/POOR MEMORY) Neurological Disorders: Vertigo 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 System Hx 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 Disorders: No Sexually Transmitted Disease: No HIV/AIDS: No 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, 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 Genitourinary History of Genitourinary Disor: Yes (INCONTINENCE) Genitourinary Disorders: Kidney Infection, Bladder Infection, UTI-Chronic Gastrointestinal History of Gastrointestinal Di: Yes (COLON CANCER DX 08/2019) Gastrointestinal Disorders: Abdominal Hernia, Gastroesophageal Reflux, Diverticulosis, Esophagitis Musculoskeletal History of Musculoskeletal Dis: Yes (FALLS, USES A WALKER;COMPRESSION FRACTURES; RIGHT HIP FRACTURE) Musculoskeletal Disorders: Degenerate Disk Disease, Osteoporosis, Arthritis, Chronic Back Pain, Fractures Endocrine History of Endocrine Disorders: Yes Endocrine Disorders: Hypothyroidsim HEENT History of HEENT Disorders: Yes ( DENTURES) HEENT Disorders: Dysphagia Loss of Vision: Denies Hearing Impairment: Denies Cancer History of Cancer: Yes Cancer: Colon Psychosocial History of Psychiatric Problem: Yes (RX DRUG ABUSE) Behavioral Health Disorders: Anxiety, Depression Integumentary History of Skin or Integumenta: No Blood Transfusions History of Blood Disorders: Yes (ANEMIA) Adverse Reaction to a Blood Tr: No (HAS HAD BLOOD WITH NO REACTION) Family Medical History Significant Family History: Heart Disease, Hypertension Family Medial History: Family history: Hypertension G8 BROTHER Myocardial infarction 19 MOTHER G8 BROTHER Review of Systems-General Constitutional: dizziness, malaise, weakness EENTM: No blurred vision, No double vision Respiratory: No cough, No short of breath (in comparison to baseline ) Cardiovascular: No chest pain, No palpitations Gastrointestinal: abdominal pain (Epigastric LUQ ), nausea, other (significant abdominal scarring from previous surgeries ) Genitourinary: No dysuria, No frequency Psychiatric/Neurological: Anxiety (anxious, feels like she is "fading and dying" ) Physical Exam-General Problems Physical Exam Vital Signs Vital Signs - First Documented 01/14/22 01/14/22 01/14/22 02:55 07:22 08:38 Temp 36.0 Pulse 60 Resp 18 B/P (MAP) 148/100 (116) Pulse Ox 100 O2 Delivery Nasal Cannula O2 Flow Rate 1.00 Capillary Refill : Less Than 3 Seconds General Appearance: moderate distress, other (chronically ill) HEENT: PERRL/EOMI Neck: non-tender, supple Respiratory: lungs clear, normal breath sounds, no respiratory distress, no accessory muscle use Cardiovascular: regular rate, rhythm, no murmur Gastrointestinal: soft (Firm at site of distention. Ventral hernia soft ), distended (Epigastric ), guarding (voluntary, generalized ), tenderness (Epigastric and LUQ ), other (NG tube in place ~500cc fecal appearing fluid. Foul smelling. Patient has large central incision, and multiple other scars from previous abdominal surgeries. ) Rectal: deferred Extremities: non-tender, no calf tenderness Neurologic/Psychiatric: alert, oriented x 3, depressed affect (anxious and scared.. saying "please don't let me " ) Skin: cool, pallor Data Review Labs Laboratory Tests 01/14/22 03:40: White Blood Count 10.7, Red Blood Count 4.43, Hemoglobin 13.2, Hematocrit 40, Mean Corpuscular Volume 91, Mean Corpuscular Hemoglobin 30, Mean Corpuscular Hemoglobin Concent 33, Red Cell Distribution Width 15.9H, Platelet Count 252, Mean Platelet Volume 10.1, Immature Granulocyte % (Auto) 2, Neutrophils (%) (Auto) 75, Lymphocytes (%) (Auto) 15, Monocytes (%) (Auto) 5, Eosinophils (%) (Auto) 2, Basophils (%) (Auto) 1, Neutrophils # (Auto) 8.1H, Lymphocytes # (Auto) 1.7, Monocytes # (Auto) 0.5, Eosinophils # (Auto) 0.2, Basophils # (Auto) 0.1, Immature Granulocyte # (Auto) 0.2H, Sodium Level 138, Potassium Level 3.6, Chloride Level 104, Carbon Dioxide Level 22, Anion Gap 12, Blood Urea Nitrogen 21H, Creatinine 0.99, Estimat Glomerular Filtration Rate 57, BUN/Creatinine Ratio 21, Glucose Level 117H, Lactic Acid Level 2.68*H, Calcium Level 10.2H, Corrected Calcium 10.4H, Total Bilirubin 0.5, Aspartate Amino Transf (AST/SGOT) 13, Alanine Aminotransferase (ALT/SGPT) 15, Alkaline Phosphatase 75, Total Protein 6.3L, Albumin 3.8, Lipase 4L 01/14/22 06:24: Lactic Acid Level 2.20*H Radiology [facility] [place], [place] NAME: [facility] REC#: [id number] PT STATUS: ADM IN : 1940 PHYSICIAN: TIFFANY CALDERA MD ADMIT DATE: 01/14/22 Signed Date of Exam:01/14/22 CT ABDOMEN/PELVIS WO EXAMINATION: CT abdomen and pelvis without contrast. TECHNIQUE: Multiple contiguous axial images were obtained through the abdomen and pelvis without the use of intravenous contrast. All CT scans use one or more of the following dose optimizing techniques: automated exposure control, MA and/or KvP adjustment based on patient size and exam type or iterative reconstruction. HISTORY: severe abdominal pain COMPARISON: 11/24/2020 FINDINGS: Lung bases: The lung bases are clear. Solid organs: The liver is normal. The gallbladder is normal. There is no biliary ductal dilation. There is atrophy of the pancreas without ductal dilatation. Spleen is normal. Adrenal glands are normal. The kidneys are normal without visualized calculus or hydronephrosis. Bowel: There is a small hiatal hernia. Surgical changes of the bowel without evidence of obstruction. There is fluid filled appearance of the small bowel which is not pathologically distended. Surgical changes from colon resection. Peritoneum: There is no intraperitoneal free fluid or free air. No suspicious lymphadenopathy. Vasculature: Calcification of the aorta without aneurysm. Musculoskeletal: Multilevel surgical degenerative changes of the spine with multilevel thoracolumbar compression fractures, many which have undergone vertebral augmentation. There is a large ventral abdominal wall hernia containing a trace amount of fluid, fat, and loops of bowel. Surgical changes of the right hip. Pelvis: The uterus is surgically absent. No adnexal mass. The urinary bladder is normal. IMPRESSION: 1. Air and fluid distention of the small bowel which are not pathologically enlarged. Findings can be seen with developing early low-grade obstruction versus ileus. 2. Agree with preliminary interpretation. Dictated by: Dictated on workstation # [id number] Dict: 01/14/2228 Trans: 01/14/2249 [facility] [id number] Interpreted by: ELVIS ROSEN DO Electronically signed by: ELVIS ROSEN DO 01/14/22 0849 Assessment/Plan Assessment/Plan Assessment/Plan Small Bowel Obstruction Hx of Colon Cancer with resection CAD with previous stent placement HTN HLD RAJI Hx of DVT Anxiety Depression Plan NPO, IVF, NG tube, Pain control, Anti-emetics, IS, Medical Management per primary team Patient currently in significant distress. Asking for morphine, states that this works well for her. Patient is DNR charts. Hopefully can manage this SBO without surgical intervention as patient is not a great surgical candidate. Will continue to monitor closely. LEXUS NELSON DO 01/14/22 1326: History of Present Illness History of Present Illness Time Seen by Provider: 12:00 History of Present Illness Surgery asked to consult regarding abdominal pain, possible PSBO. HPI per ED: Patient is an 81-year-old female who presents to the emergency room with a chief complaint of severe abdominal pain, "cramping" and nausea. Patient has a history of "short gut" syndrome. She has had multiple prior abdominal surgeries including colectomy and multiple hernia repairs with mesh. She recently underwent EGD by Dr. Nelson about 3 days ago. She states she ate Thanksgiving dinner tonight and at about 6:00 the pain started. She states she had a really watery stool at about that time. She has been nauseous ever since. She denies fevers or chills, shortness of breath or cough. She is complaining of severe pain that comes in waves. No actual vomiting. She is concerned about a hernia that is trapped. All other review of systems reviewed and negative except as stated. Timing/Duration: 12 Hours Severity/Quality: Severe, Cramping Location: Generalized Abdomen Activities at Onset: None Modifying Factors: Worsens With Movement Associated Symptoms: Nausea/Vomiting (Nausea without vomiting), Swelling/Mass in Abdomen When I saw pt she was asleep, but easily arousable and then complained of abdominal pain. She asked for more pain meds. Allergies and Home Medications Allergies Coded Allergies: sulfamethoxazole (Verified Allergy, Intermediate, Vomiting, 09/09/19) trimethoprim (Verified Allergy, Intermediate, Vomiting, 09/09/19) erythromycin base (Verified Allergy, Unknown, 09/09/19) quinine (Verified Allergy, Unknown, 09/09/19) cephalexin (Verified Adverse Reaction, Severe, CONFUSION, DIZZINESS, 03/04/20) Patient Home Medication List Home Medication List Reviewed: Yes Amoxicillin/Potassium Clav (Amox Tr-K Clv 875-125 mg Tab) 875 Mg-125 Mg Tablet, 875 MG PO BID WITH MEALS Prescribed by: IKE FRANK on 07/12/21 1222 Clonazepam (Clonazepam) 1 Mg Tablet, 1 MG PO BID PRN for ANXIETY, (Reported) Entered as Reported by: PATRICK SHAW on 07/09/21 1510 Diphenoxylate HCl/Atropine (Diphenoxylate-Atrop 2.5-0.025) 1 Each Tablet, 1 EACH PO QID PRN for LOOSE STOOLS, (Reported) Entered as Reported by: TOMAS HAYS on 09/07/20 1451 Duloxetine HCl (Duloxetine HCl) 60 Mg Capsule.dr, 60 MG PO DAILY, (Reported) Entered as Reported by: TOMAS HAYS on 09/07/20 1448 Ezetimibe (Ezetimibe) 10 Mg Tablet, 10 MG PO DAILY, (Reported) Entered as Reported by: TARAN CARPENTER on 07/02/19 1122 Famotidine (Famotidine) 20 Mg Tablet, 20 MG PO DAILY, (Reported) Entered as Reported by: PATRICK SHAW on 07/09/21 1510 Fluorouracil (Fluorouracil) 5 % Cream..g., 1 APPLIC TOP BID, (Reported) Entered as Reported by: PATRICK SHAW on 07/09/21 1510 Fluticasone Propionate (Fluticasone Propionate) 50 Mcg/Actuation Sawyer.susp, 2 SPRAY NSEACH DAILY PRN for CONGESTION, (Reported) Entered as Reported by: PATRICK SHAW on 07/09/21 1510 Furosemide (Furosemide) 20 Mg Tablet, 20 MG PO DAILY, (Reported) Entered as Reported by: PATRICK SHAW on 06/18/20 1506 Levothyroxine Sodium (Levothyroxine Sodium) 112 Mcg Tablet, 112 MCG PO DAILY, (Reported) Entered as Reported by: PATRICK SHAW on 07/09/21 1510 Metoprolol Succinate (Metoprolol Succinate) 50 Mg Tab.er.24h, 50 MG PO DAILY, (Reported) Entered as Reported by: PATRICK SHAW on 05/13/19 0828 Mirabegron (Myrbetriq) 50 Mg Tab.er.24h, 50 MG PO DAILY, (Reported) Entered as Reported by: TOMAS HAYS on 09/07/20 1448 Montelukast Sodium (Montelukast Sodium) 10 Mg Tablet, 10 MG PO DAILY, (Reported) Entered as Reported by: TOMAS HAYS on 09/07/20 1448 Neomycin/Polymyxin B Sulf/Hc (Syahmqbb-Dkuqvdvci-Ce Ear Susp) 3.5 Mg/Ml-10,000 Unit/Ml-1 % Drops.susp, 4 DROPS RIGHT EAR TID, (Reported) Entered as Reported by: PATRICK SHAW on 07/09/21 1510 Nitrofurantoin Monohyd/M-Cryst (Macrobid 100 mg Capsule) 100 Mg Capsule, 1 TAB PO BID Prescribed by: JULIANA CAMPOS on 08/19/21 1202 Oxycodone HCl (Oxycodone HCl) 10 Mg Tablet, 10 MG PO Q4H PRN for PAIN-SEVERE (8- 10), (Reported) Entered as Reported by: PATRICK SHAW on 07/09/21 1510 Pantoprazole Sodium (Pantoprazole Sodium) 40 Mg Tablet.dr, 40 MG PO DAILY, (Reported) Entered as Reported by: TOMAS HAYS on 09/07/20 1448 Potassium Chloride (Potassium Chloride) 10 Meq Tab.er.prt, 10 MEQ PO DAILY, (Reported) Entered as Reported by: TOMAS HAYS on 09/07/20 1448 Prednisone (Prednisone) 10 Mg Tab.ds.pk, 10 MG PO DAILY Prescribed by: IKE FRANK on 07/12/21 1222 Pregabalin (Pregabalin) 150 Mg Capsule, 150 MG PO BID, (Reported) Entered as Reported by: TOMAS HAYS on 09/07/20 1448 Ropinirole HCl (Ropinirole HCl) 4 Mg Tablet, 8 MG PO HS, (Reported) Entered as Reported by: TOMAS HAYS on 09/07/20 1448 Temazepam (Temazepam) 15 Mg Capsule, 15-30 MG PO HS, (Reported) Entered as Reported by: TOMAS HAYS on 09/07/20 1448 cycloSPORINE (cycloSPORINE) 0.05 % Droperette, 1 DROP OU BID, (Reported) Entered as Reported by: PATRICK SHAW on 07/09/21 1510 Past Brvzyqs-Jrtcnr-Siwhff Hx Patient Social History Smoking Status: Never a Smoker Surgeries History of Surgeries: Yes Surgeries: Abdominal, Bowel Surgery, Hysterectomy, Tonsillectomy Respiratory History of Respiratory Disorde: Yes Respiratory Disorders: Pulmonary Embolism, Sleep Apnea, COPD Cardiovascular History of Cardiac Disorders: Yes Cardiac Disorders: Coronary Artery Disease (with stent placement), Heart Attack Neurological History of Neurological Disord: No Genitourinary History of Genitourinary Disor: Yes Genitourinary Disorders: Bladder Infection (chronic) Gastrointestinal History of Gastrointestinal Di: Yes Gastrointestinal Disorders: Abdominal Hernia, Gastroesophageal Reflux, Obstructive Bowel, Polyps, Esophagitis, Hiatal Hernia Musculoskeletal History of Musculoskeletal Dis: Yes Musculoskeletal Disorders: Degenerate Disk Disease, Arthritis, Chronic Back Pain, Fractures Endocrine History of Endocrine Disorders: No HEENT History of HEENT Disorders: Yes HEENT Disorders: Cataract Loss of Vision: Bilateral Hearing Impairment: Hard of Hearing Cancer History of Cancer: Yes Cancer: Colon Psychosocial History of Psychiatric Problem: Yes Behavioral Health Disorders: Anxiety Family Medical History Significant Family History: Heart Disease, Hypertension Family Medial History: Family history: Hypertension G8 BROTHER Myocardial infarction 19 MOTHER G8 BROTHER Review of Systems-General Constitutional: dizziness, malaise, weakness EENTM: No blurred vision, No double vision Respiratory: No cough, No short of breath (in comparison to baseline ) Cardiovascular: No chest pain, No palpitations Gastrointestinal: abdominal pain (Epigastric LUQ ), other (significant abdominal scarring from previous surgeries ) Genitourinary: No dysuria, No frequency Musculoskeletal: back pain, joint pain Skin: No change in color, No change in hair/nails Psychiatric/Neurological: Denies Anxiety (anxious, feels like she is "fading and dying" ), Denies Seizure Physical Exam-General Problems Physical Exam General Appearance: mild distress, other (chronically ill) Eyes: Bilateral Eye PERRL, Bilateral Eye EOMI HEENT: pharynx normal; No scleral icterus (R), No scleral icterus (L) Neck: non-tender, supple Respiratory: lungs clear, normal breath sounds, no respiratory distress, no accessory muscle use Cardiovascular: regular rate, rhythm, no murmur Gastrointestinal: soft (Firm at site of distention. Ventral hernia soft ), distended (Epigastric ), guarding (voluntary, generalized ), tenderness (Epigastric and LUQ ), hernia (large ventral hernia), other (NG tube in place ~500cc fecal appearing fluid. Foul smelling. Patient has large central incision, and multiple other scars from previous abdominal surgeries. ) Rectal: deferred Extremities: non-tender, no calf tenderness Neurologic/Psychiatric: alert, oriented x 3 Skin: cool, pallor Lymphatic: no adenopathy (neck, axilla or groin) Assessment/Plan Assessment/Plan Assessment/Plan Partial Small Bowel Obstruction vs. Ileus Hx of Colon Cancer with resection CAD with previous stent placement HTN HLD RAJI Hx of DVT Anxiety Depression Plan NPO, IVF, NG tube, Pain control, Anti-emetics, IS, Medical Management per primary team Patient currently in significant distress. Asking for morphine, states that this works well for her. Patient is DNR charts. Hopefully can manage this SBO without surgical intervention as patient is not a great surgical candidate. Will continue to monitor closely. I reviewed the CT and discussed the case with attending physician. I did not see a transition point in the abdomen, I also did not see any strangulated bowel or problems with intestine that is in the hernia. I think non-surgical management is the best thing for her right now. Supervisory-Addendum Brief Verification & Attestation Participated in pt care: history, MDM, physical Personally performed: exam, history, MDM, supervision of care Care discussed with: Medical Student Procedures: n/a Verification and Attestation of Medical Student E/M Service A medical student performed and documented this service. I then reviewed and verified all information documented by the medical student and made modifications to such information, when appropriate. I personally performed a physical exam, medical decision making and then discussed any differences between the notes and made revisions as necessary to create one note. Lexus Nelson , 01/14/22 , 13:33 LARRY ABDALLA Jan 14, 2022 10:44 LEXUS NELSON DO Jan 14, 2022 13:26
[2022-01-14 11:34] VITALS: BP 137/83
[2022-01-14] MEDS ORDERED: morphine INJ 10 MG/ML 1ML (SYR OR VIAL) IVP PRN (12:30)
[2022-01-14 15:27] VITALS: BP 110/73
[2022-01-14] MEDS ORDERED: ONDA-105 PO ×2 (16:21)
[2022-01-14] MEDS ORDERED: CRAN450T9 PO ×2 (16:21)
[2022-01-14] MEDS ORDERED: NITR100C PO ×2 (16:21)
[2022-01-14] MEDS ORDERED: BIOT10005 PO ×2 (16:21)
[2022-01-14] MEDS ORDERED: CLOP75TA28 PO ×2 (16:21)
[2022-01-14] MEDS ORDERED: CHOL10007 PO ×2 (16:21)
[2022-01-14] MEDS ORDERED: DICY10CA12 PO ×2 (16:21)
[2022-01-14] MEDS ORDERED: SOLI5TAB7 PO ×2 (16:21)
[2022-01-14] MEDS ORDERED: CYCL1DRO OU ×2 (16:21)
[2022-01-14] MEDS ORDERED: POTASSIUM 20MEQ/15ML PO ×2 (16:21)
[2022-01-14] MEDS ORDERED: ASCO-262 PO ×2 (16:21)
[2022-01-14] MEDS: NS IV 1000 ML 1,000 ML IV SCH (17:34)
--- NOTE | 2022-01-14 19:00 | History & Physical-Hospitalist ---
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 She also reports nausea. She denies vomiting. She also has back pain which is chronic. She denies fevers and chills. She denies chest pain. She denies shortness of breath and cough. She denies ever having a bowel obstruction. She has had multiple abdominal surgeries including a hemicolectomy with colostomy which has since been reversed. Source: patient Exam Limitations: no limitations Date Seen 01/14/22 Time Seen by a Provider: 12:30 Attending Physician Eliud Brewer DO PCP Admitting Physician: Ike Frank MD Attending Physician: Ike Frank MD Referring Physician Date of Admission Jan 14, 2022 at 05:49 Home Medications & Allergies Home Medications Reviewed patient Home Medication Reconciliation performed by pharmacy medication reconciliations radio/tv technician and/or nursing. Patients Allergies have been reviewed. Allergies Allergies Coded Allergies sulfamethoxazole (Verified Allergy, Intermediate, Vomiting, 09/09/19) trimethoprim (Verified Allergy, Intermediate, Vomiting, 09/09/19) erythromycin base (Verified Allergy, Unknown, 09/09/19) quinine (Verified Allergy, Unknown, 09/09/19) cephalexin (Verified Adverse Reaction, Severe, CONFUSION, DIZZINESS, 03/04/20) Past Satnnci-Juffob-Dlbref Hx Patient Social History Tobacco Use?: No Smoking Status: Never a Smoker Use of E-Cig and/or Vaping dev: No Substance use?: No Alcohol Use?: No Pt feels they are or have been: No Immunizations Up To Date Date of Influenza Vaccine: Nov 26, 2021 First/Initial COVID19 Vaccinat: Received but unknown date. Second COVID19 Vaccination Javier: Received but unknown date. 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, Menopausal Sexually Transmitted Disease: No HIV/AIDS: No Bladder Infection (chronic) Abdominal Hernia, Gastroesophageal Reflux, Obstructive Bowel, Polyps, Esophagitis, Hiatal Hernia Degenerate Disk Disease, Arthritis, Chronic Back Pain, Fractures Hypothyroidsim Cataract Loss of Vision: Bilateral Hearing Impairment: Hard of Hearing Colon Did You Recieve Any Treatments: Yes What Type of Treatment Did You: Surgical Intervention Anxiety Blood Disorders: Yes (ANEMIA) Adverse Reaction/Blood Tranf: No (HAS HAD BLOOD WITH NO REACTION) HTN Hypothyroidism COPD with oxygen dependence 3 L Colon cancer s/p hemicolectomy Restless legs syndrome Family Medical History Family history: Hypertension G8 BROTHER Myocardial infarction 19 MOTHER G8 BROTHER Heart Disease, Hypertension SOCIAL HISTORY: -ETOH--OCCASIONAL USE IN PAST -DRUGS--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 GUZMAN IN [place] -RIGHT HEMICOLECTOMY/SMALL BOWEL RESECTION/LYSIS OF ADHESIONS/MULTIPLE FOREIGN BODIES REMOVED ( CORKSCREW TACKS FROM PREVIOUS HERNIA MESH ) 09/12/[address] NELSON -CYSTOSCOPY WITH BOTOX INJECTIONS 07/09/[address] MCDONALD. -MULTIPLE HERNIA REPAIRS WITH MESH -MULTIPLE EGD'S/COLONOSCOPIES/DILATIONS OF ESOPHAGEAL STRICTURES -CARDIAC CATHS--STENTS X 2 -KYPHOPLASTIES -APPENDECTOMY -RIGHT HIP FRACTURE ORIF WITH PIN IN HIP AND HEATHER IN FEMUR 03/2016 -HYSTERECTOMY/BILATERAL SALPINGO-OOPHORECTOMY -TONSILLECTOMY ADDITIONAL PAST MEDICAL HISTORY: -HAS 24 HOUR IN-HOME CARETAKERS -[place]--USES A WALKER -RESTLESS LEG SYNDROME -RIGHT PALUMBO'S CYST -MULTIPLE COMPRESSION FRACTURES WITH KYPHOPLASTIES -CHRONIC DYSPHAGIA -CHRONIC ABDOMINAL PAIN COMPLAINTS -HAS Review of Systems Constitutional: no symptoms reported EENTM: no symptoms reported Respiratory: no symptoms reported Cardiovascular: no symptoms reported Gastrointestinal: abdominal pain, nausea Physical Exam Physical Exam Vital Signs Vital Signs - First Documented 01/14/22 01/14/22 01/14/22 02:55 07:22 08:38 Temp 36.0 Pulse 60 Resp 18 B/P (MAP) 148/100 (116) Pulse Ox 100 O2 Delivery Nasal Cannula O2 Flow Rate 1.00 Capillary Refill : Less Than 3 Seconds Height, Weight, BMI Height: 5'2.00" Weight: 163lbs. 0.0oz. 73.412886vv; 32.85 BMI Method:Stated General Appearance: Moderate Distress (uncomfortable), Obese HEENT: PERRL/EOMI, Pharynx Normal Neck: Normal Inspection, Supple Respiratory: No Accessory Muscle Use, No Respiratory Distress, Decreased Breath Sounds Cardiovascular: Regular Rate, Rhythm, No Murmur Gastrointestinal: Soft, Abnormal Bowel Sounds (hypoactive); No Distended; Tenderness Extremity: Normal Inspection, Pedal Edema Neurologic/Psychiatric: Alert, No Motor/Sensory Deficits Skin: Normal Color, Warm/Dry Results Results/Procedures Labs Laboratory Tests 01/14/22 03:40 Patient resulted labs reviewed. Imaging: Reviewed Imaging Report Assessment/Plan Admission Diagnosis Small bowel obstruction Admission Status: Inpatient Order (span 2 midnights) Reason for Inpatient Admission: Bowel obstruction Assessment and Plan SBO CT abdomen with possible early obstruction NG tube NPO IV fluids Pain regimen Surgery consulted HTN Hypothyroidism COPD Chronic respiratory failure with hypoxia RLS History of colon cancer s/p hemicolectomy s/p colostomy reversal Continue home meds when able DVT prophylaxis: Monalisa Gomez is an 80-year-old female with past medical history of hypertension, hypothyroidism, oxygen dependent COPD on 3 L, restless leg syndrome, colon cancer status post hemicolectomy, who presented with abdominal pain Diagnosis/Problems Diagnosis/Problems (1) Small bowel obstruction Status: Acute (2) History of hemicolectomy Status: Chronic (3) Back pain Status: Acute (4) Chronic respiratory failure with hypoxia Status: Chronic (5) Essential (primary) hypertension Status: Chronic (6) Hypothyroidism Status: Chronic (7) COPD (chronic obstructive pulmonary disease) Status: Acute Qualifiers: COPD type: unspecified COPD Qualified Codes: J44.9 - Chronic obstructive pulmonary disease, unspecified IKE FRANK MD Jan 14, 2022 19:00
[2022-01-14 19:08] VITALS: BP 110/72
[2022-01-14] MEDS: morphine INJ 4 MG/ML 1 ML (VIAL/SYRINGE) IVP PRN (19:33)
[2022-01-14] MEDS ORDERED: [UNRECOGNIZED DRUG - OTHER] PO PRN ×2 (20:15→21:45)
[2022-01-14] MEDS ORDERED: CHLORASEPTIC PO PRN ×2 (20:15→21:45)
[2022-01-14] MEDS: RT-ALBUTEROL/IPRATROPIUM 3 ML (DUONEB) VIAL INH SCH (21:13)
[2022-01-14 23:32] VITALS: BP 109/69
[2022-01-15 04:01] VITALS: BP 99/60
[2022-01-15] MEDS: NS IV 1000 ML 1,000 ML IV SCH ×3 (05:49→19:26)
[2022-01-15 07:32] VITALS: BP 106/52
[2022-01-15] MEDS: RT-ALBUTEROL/IPRATROPIUM 3 ML (DUONEB) VIAL INH SCH (07:32)
[2022-01-15] MEDS ORDERED: CHLORASEPTIC MC PRN ×2 (08:45)
[2022-01-15] MEDS ORDERED: VISCOUS LIDOCAINE MC PRN ×2 (08:45)
[2022-01-15] MEDS: morphine INJ 4 MG/ML 1 ML (VIAL/SYRINGE) IVP PRN ×2 (08:49→11:24)
--- NOTE | 2022-01-15 10:25 | Progress Note - Surgery ---
LARRY ABDALLA 01/15/22 1025: Subjective Date Seen by a Provider: Jan 15, 2022 Time Seen by a Provider: 08:55 Subjective/Events-last exam Patient resting comfortably in bed. States feels much better today. Had a large bowel movement yesterday. Patient states it was formed but also had liquid co mponents. NG tube has ~50cc of bilious fluid in it. Material not feculent like yesterday. Patient asking about when she can eat. Review of Systems General: No Chills, No Night Sweats HEENT: No Head Aches, No Visual Changes Pulmonary: No Dyspnea, No Cough Cardiovascular: No: Chest Pain, Palpitations Gastrointestinal: No: Nausea, Vomiting, Abdominal Pain Genitourinary: No Dysuria, No Frequency Neurological: No: Weakness, Numbness Focused Exam Lactate Level 01/14/22 11:17: Lactic Acid Level 2.95*H 01/14/22 15:17: Lactic Acid Level 2.17*H 01/14/22 20:10: Lactic Acid Level 1.80 Objective Exam Vital Signs Date Time Temp Pulse Resp B/P (MAP) Pulse Ox O2 Delivery O2 Flow Rate FiO2 01/15/22 07:33 91 Nasal Cannula 1.00 01/15/22 07:32 36.3 85 16 106/52 (70) 91 Nasal Cannula 1.50 01/15/22 07:00 86 01/15/22 04:01 36.6 81 16 99/60 (73) 95 Nasal Cannula 2.00 01/15/22 01:00 83 01/14/22 23:32 36.5 76 16 109/69 (82) Nasal Cannula 2.00 01/14/22 21:14 93 Nasal Cannula 1.00 01/14/22 19:20 Nasal Cannula 1.00 01/14/22 19:08 36.4 69 18 110/72 (85) 95 Nasal Cannula 1.00 1.00 01/14/22 19:00 78 01/14/22 18:43 94 Nasal Cannula 1.00 01/14/22 15:27 35.7 87 18 110/73 (85) 94 Nasal Cannula 1.00 1.00 01/14/22 13:09 Nasal Cannula 1.00 01/14/22 12:52 85 01/14/22 11:34 36.4 66 18 137/83 (101) 95 Nasal Cannula 1.00 01/14/22 11:33 69 I & O 01/15/22 07:00 Intake Total 0 ml Output Total 5 ml Balance -2025 ml Capillary Refill : Less Than 3 Seconds General Appearance: No Apparent Distress, Obese HEENT: PERRL/EOMI Neck: Non Tender, Supple Respiratory: Lungs Clear (anterior posts only ), No Accessory Muscle Use, No Respiratory Distress, Decreased Breath Sounds Cardiovascular: Regular Rate, Rhythm, No Murmur Gastrointestinal: non tender, soft (ventral hernia soft, almost too large of a defect to be completely reducible, but it is easily manipulated ), hernia (large ventral hernia), other (NG tube in place ~500cc fecal appearing fluid. Foul smelling. Patient has large central incision, and multiple other scars from previous abdominal surgeries. ) Extremity: Non Tender, No Calf Tenderness, Pedal Edema Neurologic/Psychiatric: Alert, Oriented x3, Normal Mood/Affect Skin: Normal Color, Warm/Dry Results Lab Laboratory Tests 01/14/22 11:17: Lactic Acid Level 2.95*H 01/14/22 15:17: Lactic Acid Level 2.17*H 01/14/22 20:10: Lactic Acid Level 1.80 Assessment/Plan Assessment/Plan Assessment/Plan Partial Small Bowel Obstruction vs. Ileus Hx of Colon Cancer with resection CAD with previous stent placement HTN HLD RAJI Hx of DVT Anxiety Depression Plan IVF, NG tube, Pain control, Anti-emetics, IS, Medical Management per primary team Patient had large bowel movement and is feeling better. Believe at this time could try removing NG tube and then slowly introducing a liquid diet to patient. Want to move slow to prevent recurrence. Need patient Up and ambulating as much as possible. VALENTÍN BROOKS DO 01/15/22 1219: Subjective Time Seen by a Provider: 11:46 Subjective/Events-last exam Pt seen and examined, states she feels much better and had large BMs yesterday. NGT has not had much out and she is asking for food. Appears more alert. Review of Systems General: No Chills, No Night Sweats Pulmonary: No Dyspnea, No Cough Cardiovascular: No: Chest Pain, Palpitations Gastrointestinal: No: Nausea, Vomiting, Abdominal Pain Objective Exam General Appearance: No Apparent Distress, Obese HEENT: PERRL/EOMI Respiratory: Lungs Clear (anterior posts only ), No Accessory Muscle Use, Decreased Breath Sounds Cardiovascular: Regular Rate, Rhythm, No Murmur Gastrointestinal: non tender, soft (ventral hernia soft, almost too large of a defect to be completely reducible, but it is easily manipulated ), hernia (large ventral hernia), other (NG tube in place ~500cc fecal appearing fluid. Foul smelling. Patient has large central incision, and multiple other scars from previous abdominal surgeries. ) Extremity: Pedal Edema Neurologic/Psychiatric: Alert, Oriented x3 Assessment/Plan Assessment/Plan Assessment/Plan Partial Small Bowel Obstruction vs. Ileus Hx of Colon Cancer with resection CAD with previous stent placement HTN HLD RAJI Hx of DVT Anxiety Depression Plan IVF, will clamp NG tube and try clears, Pain control as needed, Anti-emetics, IS, Medical Management per primary team. Patient had large bowel movement and is feeling better. Need patient Up and ambulating as much as possible. Supervisory-Addendum Brief Verification & Attestation Participated in pt care: history, MDM, physical Personally performed: exam, history, MDM, supervision of care Care discussed with: Medical Student Procedures: n/a Verification and Attestation of Medical Student E/M Service A medical student performed and documented this service. I then reviewed and verified all information documented by the medical student and made modifications to such information, when appropriate. I personally performed a physical exam, medical decision making and then discussed any differences between the notes and made revisions as necessary to create one note. Valentín Brooks , 01/15/22 , 12:22 LARRY ABDALLA Jan 15, 2022 10:25 VALENTÍN BROOKS DO Jan 15, 2022 12:19
[2022-01-15 11:10] VITALS: BP 119/52
[2022-01-15] MEDS ORDERED: TEMAZEPAM 15 MG (RESTORIL) CAP PO PRN (12:45)
--- NOTE | 2022-01-15 12:47 | Progress Note - Hospitalist ---
Subjective HPI/CC On Admission Date Seen by Provider: Jan 15, 2022 Time Seen by Provider: 11:45 April Gomez is an 80-year-old female with past medical history of hypertension, hypothyroidism, oxygen dependent COPD on 3 L, restless leg syndrome, colon cancer status post hemicolectomy, who presented with abdominal pain. She also reports nausea. She denies vomiting. She also has back pain which is chronic. She denies fevers and chills. She denies chest pain. She denies shortness of breath and cough. She denies ever having a bowel obstruction. She has had multiple abdominal surgeries including a hemicolectomy with colostomy which has since been reversed. Subjective/Events-last exam She is feeling better. Her pain is improved. She is not having any nausea or vomiting. She had a bowel movement this morning. Focused Exam Lactate Level 01/14/22 11:17: Lactic Acid Level 2.95*H 01/14/22 15:17: Lactic Acid Level 2.17*H 01/14/22 20:10: Lactic Acid Level 1.80 Objective Exam Vital Signs Vital Signs Date Time Temp Pulse Resp B/P (MAP) Pulse Ox O2 Delivery O2 Flow Rate FiO2 01/15/22 11:10 36.2 79 18 119/52 (74) 95 Nasal Cannula 1.50 Capillary Refill : Less Than 3 Seconds General Appearance: No Apparent Distress, Chronically ill, Obese Respiratory: Lungs Clear, No Respiratory Distress Cardiovascular: Regular Rate, Rhythm, No Murmur Gastrointestinal: Normal Bowel Sounds, Soft Extremity: Normal Inspection, No Pedal Edema Neurologic/Psychiatric: Alert, Normal Mood/Affect Skin: Normal Color, Warm/Dry Results/Procedures Lab Patient resulted labs reviewed. Imaging: Reviewed Imaging Report Assessment/Plan Assessment and Plan Assess & Plan/Chief Complaint SBO Remove NG tube Advance to clears IV fluids Pain regimen Surgery following HTN Hypothyroidism COPD Chronic respiratory failure with hypoxia RLS History of colon cancer s/p hemicolectomy s/p colostomy reversal Continue home meds when able DVT prophylaxis: Lovenox Diagnosis/Problems Diagnosis/Problems (1) Small bowel obstruction Status: Acute (2) History of hemicolectomy Status: Chronic (3) Back pain Status: Acute (4) Chronic respiratory failure with hypoxia Status: Chronic (5) Essential (primary) hypertension Status: Chronic (6) Hypothyroidism Status: Chronic (7) COPD (chronic obstructive pulmonary disease) Status: Acute Qualifiers: COPD type: unspecified COPD Qualified Codes: J44.9 - Chronic obstructive pulmonary disease, unspecified IKE FRANK MD Jan 15, 2022 12:47
[2022-01-15 14:48] LABS: BASOPHILS % (AUTO) 0 % (0-10); EOSINOPHILS # (AUTO) 0.2 10^3/uL (0.0-0.3); EOSINOPHILS % (AUTO) 3 % (0-10); HEMATOCRIT 39 % (35-52); HEMOGLOBIN 12.1 g/dL (11.5-16.0); LYMPHOCYTES # (AUTO) 1.3 10^3/uL (1.0-4.0); LYMPHOCYTES % (AUTO) 25 % (12-44); MEAN CORPUSCULAR HEMOGLOBIN 30 pg (25-34); MEAN CORPUSCULAR HGB CONC 31 g/dL (32-36); MEAN CORPUSCULAR VOLUME 94 fL (80-99); MEAN PLATELET VOLUME 10.6 fL (9.0-12.2); MONOCYTES # (AUTO) 0.3 10^3/uL (0.0-1.0); MONOCYTES % (AUTO) 6 % (0-12); NEUTROPHILS # (AUTO) 3.3 10^3/uL (1.8-7.8); NEUTROPHILS % (AUTO) 65 % (42-75); PLATELET COUNT 216 10^3/uL (130-400); WHITE BLOOD COUNT 5.1 10^3/uL (4.3-11.0)
[2022-01-15] MEDS ORDERED: morphine INJ 4 MG/ML 1 ML (VIAL/SYRINGE) IVP PRN (15:00)
[2022-01-15 15:02] LABS: CALCIUM 8.3 MG/DL (8.5-10.1); CREATININE SERUM 0.95 MG/DL (0.60-1.30); POTASSIUM 3.7 MMOL/L (3.6-5.0)
[2022-01-15] MEDS: TROSPIUM 20 MG (SANCTURA) TAB PO SCH (15:24)
[2022-01-15] MEDS: DICYCLOMINE 10 MG (BENTYL) CAP PO SCH ×3 (15:24→19:21)
[2022-01-15 16:16] VITALS: BP 108/63
[2022-01-15] MEDS: rOPINIRole 1 MG (REQUIP) TABLET PO SCH (19:20)
[2022-01-15] MEDS: rOPINIRole 5 MG TAB (REQUIP) PO SCH (19:21)
[2022-01-15] MEDS: clonazePAM 1 MG (KlonoPIN) TAB PO SCH (19:21)
[2022-01-15] MEDS: PREGABALIN 150 MG (LYRICA) CAPSULE PO SCH (19:21)
[2022-01-15 20:00] VITALS: BP 114/55
[2022-01-15] MEDS ORDERED: NON-FORMULARY MEDICATION 1 EA EA (Cyclosporine (Restasis) 1 DROP) OU SCH (21:00)
[2022-01-15 23:10] VITALS: BP 96/46
[2022-01-16] MEDS: NS IV 1000 ML 1,000 ML IV SCH ×2 (05:00→21:58)
[2022-01-16] MEDS: TROSPIUM 20 MG (SANCTURA) TAB PO SCH ×2 (05:08→16:48)
[2022-01-16] MEDS ORDERED: LEVOTHYROXINE 112 MCG (LEVOTHROID) TAB PO SCH (06:30)
[2022-01-16 07:53] VITALS: BP 112/69
[2022-01-16] MEDS ORDERED: MIRABEGRON 25 MG TAB (MYRBETRIQ) PO SCH (08:00)
[2022-01-16] MEDS ORDERED: FUROSEMIDE 20 MG (LASIX) TAB PO SCH (09:00)
[2022-01-16] MEDS ORDERED: CLOPIDOGREL 75 MG (PLAVIX) TABLET PO SCH (09:00)
[2022-01-16] MEDS ORDERED: DULoxetine 30 MG (CYMBALTA) CAP PO SCH (09:00)
[2022-01-16] MEDS ORDERED: MONTELUKAST 10 MG (SINGULAIR) TAB PO SCH (09:00)
[2022-01-16] MEDS ORDERED: eZETimibe 10 MG (ZETIA) TABLET PO SCH (09:00)
[2022-01-16] MEDS ORDERED: PANTOPRAZOLE 40 MG (PROTONIX) TAB PO SCH (09:00)
[2022-01-16] MEDS ORDERED: meTOproloL SUCCINATE 50 MG (TOPROL XL) TAB PO SCH (09:00)
[2022-01-16] MEDS ORDERED: NITROFURANTOIN 100 MG (MACROBID) CAPSULE PO SCH (09:00)
[2022-01-16] MEDS: PREGABALIN 150 MG (LYRICA) CAPSULE PO SCH ×2 (09:09→21:01)
[2022-01-16] MEDS: DICYCLOMINE 10 MG (BENTYL) CAP PO SCH ×4 (09:09→21:01)
[2022-01-16] MEDS: clonazePAM 1 MG (KlonoPIN) TAB PO SCH ×2 (09:10→21:01)
--- NOTE | 2022-01-16 13:09 | Progress Note - Surgery ---
Subjective Time Seen by a Provider: 11:37 Subjective/Events-last exam Pt seen and examined, states she feels much better today and doing well with clear liquids. Had BM yesteday but nothing today. She is asking if she can go home. Review of Systems General: No Chills, No Night Sweats Pulmonary: No Dyspnea, No Cough Cardiovascular: No: Chest Pain, Palpitations Gastrointestinal: No: Nausea, Vomiting, Abdominal Pain Focused Exam Lactate Level 01/14/22 11:17: Lactic Acid Level 2.95*H 01/14/22 15:17: Lactic Acid Level 2.17*H 01/14/22 20:10: Lactic Acid Level 1.80 Objective Exam Vital Signs Date Time Temp Pulse Resp B/P (MAP) Pulse Ox O2 Delivery O2 Flow Rate FiO2 01/16/22 08:00 Nasal Cannula 1.50 01/16/22 07:53 36.4 75 18 112/69 (83) 97 Nasal Cannula 1.50 01/16/22 07:00 75 01/16/22 01:00 80 01/15/22 23:10 37.1 75 16 96/46 (63) 95 Nasal Cannula 1.50 01/15/22 20:00 36.6 80 16 114/55 (74) 97 Nasal Cannula 1.50 01/15/22 19:20 Nasal Cannula 1.00 01/15/22 19:00 80 01/15/22 16:16 36.7 72 16 108/63 (78) 96 Nasal Cannula 1.50 I & O 01/16/22 07:00 Intake Total 3500 ml Output Total 550 ml Balance 2950 ml Capillary Refill : Less Than 3 Seconds General Appearance: No Apparent Distress, Chronically ill, Obese HEENT: PERRL/EOMI Respiratory: Lungs Clear, Normal Breath Sounds, No Accessory Muscle Use, No Respiratory Distress Cardiovascular: Regular Rate, Rhythm, No Murmur Gastrointestinal: soft, no organomegaly, tenderness (Mild in Left abdomen. v entral hernia is soft.), hernia (incisional/ventral) Extremity: No Pedal Edema Neurologic/Psychiatric: Alert, Normal Mood/Affect Results Lab Laboratory Tests 01/15/22 14:39: White Blood Count 5.1, Red Blood Count 4.10, Hemoglobin 12.1, Hematocrit 39, Mean Corpuscular Volume 94, Mean Corpuscular Hemoglobin 30, Mean Corpuscular Hemoglobin Concent 31L, Red Cell Distribution Width 16.3H, Platelet Count 216, Mean Platelet Volume 10.6, Immature Granulocyte % (Auto) 1, Neutrophils (%) (Auto) 65, Lymphocytes (%) (Auto) 25, Monocytes (%) (Auto) 6, Eosinophils (%) (Auto) 3, Basophils (%) (Auto) 0, Neutrophils # (Auto) 3.3, Lymphocytes # (Auto) 1.3, Monocytes # (Auto) 0.3, Eosinophils # (Auto) 0.2, Basophils # (Auto) 0.0, Immature Granulocyte # (Auto) 0.1, Sodium Level 142, Potassium Level 3.7, Chloride Level 108H, Carbon Dioxide Level 20L, Anion Gap 14, Blood Urea Nitrogen 19H, Creatinine 0.95, Estimat Glomerular Filtration Rate 59, BUN/Creatinine Ratio 20, Glucose Level 142H, Calcium Level 8.3L Assessment/Plan Assessment/Plan Assessment/Plan Pt most likely had an Ileus Hx of Colon Cancer with resection CAD with previous stent placement HTN HLD RAJI Hx of DVT Anxiety Depression Plan IVF, D/C NG tube and try soft diet if tolerates she can go home. LEXUS NELSON DO Jan 16, 2022 13:09
[2022-01-16 16:26] VITALS: BP 106/55
--- NOTE | 2022-01-16 18:15 | Discharge Summary ---
Discharge Summary Reconcile Patient Problems Problems Reviewed?: Yes Instructions for Patient Via [facility], Assessment/Instructions See instructions Physician to follow Patient: Brewer Discharge Diet for Home: No Restrictions Hospital Course Date of Admission: Jan 14, 2022 at 05:49 Admission Diagnosis : SBO Family Physician/Provider: Eliud Brewer DO Date of Discharge: 01/16/22 Discharge Diagnosis: SBO Hospital Course: April Gomez is an 81 year old female who was admitted with small bowel ob struction. She has a history of colon cancer s/p hemicolectomy with colostomy s/p reversal. Surgery was consulted and assisted with her care. She was treated with NG tube, NPO, IV fluids, and pain meds. Her symptoms resolved. She had a bowel movement. Her diet was advanced. Her NG tube was removed. She had no recurrence of her symptoms. She was discharged home in stable condition. She should resume home health care with Grac[facility]. She should follow up with Dr. Brewer in about a week. Labs and Pending Lab Test: Home Meds Active Reported [Potassium 20MEQ/15ML] 20MEQ Liquid 7.5 Ml PO DAILY HAS A HARD TIME TAKING THE LIQUID Restasis (Cyclosporine) 0.05 % Droperette 1 Drop OU BID Vitamin D3 (Cholecalciferol (Vitamin D3)) 25 Mcg (1000 Unit) Capsule 25 Mcg PO DAILY Vitamin C (Ascorbate Calcium) 500 Mg Tablet 500 Mg PO DAILY Solifenacin Succinate 5 Mg Tablet 5 Mg PO DAILY Clopidogrel (Clopidogrel Bisulfate) 75 Mg Tablet 75 Mg PO DAILY Ondansetron HCl 4 Mg Tablet 4 Mg PO Q6H PRN MDD T Nitrofurantoin (Nitrofurantoin Macrocrystal) 100 Mg Capsule 100 Mg PO DAILY Dicyclomine HCl 10 Mg Capsule 10 Mg PO QID Cranberry (Cranberry Fruit) 450 Mg Tablet 450 Mg PO DAILY Biotin 10,000 Mcg Capsule 10,000 Mcg PO DAILY Levothyroxine Sodium 112 Mcg Tablet 112 Mcg PO DAILY Clonazepam 1 Mg Tablet 1 Mg PO BID Oxycodone HCl 10 Mg Tablet 10 Mg PO Q4H PRN Diphenoxylate-Atrop 2.5-0.025 (Diphenoxylate HCl/Atropine) 1 Each Tablet 1 Each PO QID PRN Temazepam 15 Mg Capsule 30 Mg PO HS PRN TAKES 2 (15MG) CAPS Pantoprazole Sodium 40 Mg Tablet.dr 40 Mg PO DAILY Ropinirole HCl 4 Mg Tablet 8 Mg PO HS TAKES 2 (4MG) TABS Pregabalin 150 Mg Capsule 150 Mg PO BID Myrbetriq (Mirabegron) 50 Mg Tab.er.24h 50 Mg PO DAILY Montelukast Sodium 10 Mg Tablet 10 Mg PO DAILY Duloxetine HCl 60 Mg Capsule.dr 60 Mg PO DAILY Furosemide 20 Mg Tablet 20 Mg PO DAILY Ezetimibe 10 Mg Tablet 10 Mg PO DAILY Metoprolol Succinate 50 Mg Tab.er.24h 50 Mg PO DAILY Consulations Surgery Patient Allergies: Coded Allergies: sulfamethoxazole (Verified Allergy, Intermediate, Vomiting, 09/09/19) trimethoprim (Verified Allergy, Intermediate, Vomiting, 09/09/19) erythromycin base (Verified Allergy, Unknown, 09/09/19) quinine (Verified Allergy, Unknown, 09/09/19) cephalexin (Verified Adverse Reaction, Severe, CONFUSION, DIZZINESS, 03/04/20) Height (Feet): 5 Height (Inches): 2.00 Weight (Pounds): 163 Weight (Ounces): 0.0 Home Health Need/Face to Face Date of Face to Face: Jan 16, 2022 Clinical Findings: Generalized weakness and fatigue, Muscle weakness, Unsteady gait I have seen Pt [id number]: Yes Discharged To: Home Diagnosis/Conditions: Small bowel obstruction Problems/Diagnosis/Condition: (1) Small bowel obstruction (2) Essential (primary) hypertension (3) COPD (chronic obstructive pulmonary disease) (4) Restless leg syndrome (5) Colon cancer (6) History of hemicolectomy (7) Hypothyroidism Patient is Homebound due to: Gracia fall risk due to instabilty, Muscle weakness Homebound Status Due to the above stated illness, injury or surgical procedure (medical condition or diagnosis) and associated clinical findings, the patient is homebound because of his/her inability to leave home except with aid of a supportive device and/or person AND leaving the home requires a considerable and taxing effort or is medically contraindicated. Pt req the following assistanc: Aid of another person Home Health Nursing Orders Home Health Services Order: Nursing Services, Corporation Lawyer-Evaluate & Treat, Physical Therapy-Evaluate & Treat Home Health Infusion Therapy Line Start Date: Jan 14, 2022 Therapy Orders Therapy Orders: OT (must have SN or PT order), Physical Therapy Therapy Specific Orders: Eval assistive deivces, Teach enviro modifications/safety, Gait training, Increase strength/endurance Certify Stmt I certify that this patient is under my care and that I, a nurse practitioner or a physician; a legal administrative assistant working with me, had a face to face encounter that - meets the physician face to face encounter requirements with this patient as dated. Discharge Physical Exam General: Alert, No Acute Distress HEENT: Atraumatic, EOMI, Mucous Memb Moist/[place] Lungs: Clear to Auscultation, Normal Air Movement Heart: Regular Rate, No Murmurs Abdomen: Normal Bowel Sounds, Soft, No Tenderness Extremities: No Edema, No Tenderness/Swelling Skin: No Rashes, No Significant Lesion Neuro: Normal Speech, Normal Tone Psych/Mental Status: Mental Status NL, Mood NL IKE FRANK MD Jan 16, 2022 18:15
[2022-01-16 18:33] VITALS: BP 106/55
[2022-01-16] MEDS: rOPINIRole 5 MG TAB (REQUIP) PO SCH (21:01)
[2022-01-16] MEDS: rOPINIRole 1 MG (REQUIP) TABLET PO SCH (21:01)
== END 2022-01-16 22:20 | disposition home or self-care (01) | DRG 389 ==
LOC: EDUNIT# 02:48 → ER 02:50 → 4TH 05:49
PROVIDERS: ADMIT Internal Medicine; ATTEND Internal Medicine
DX: K56.609 Unspecified intestinal obstruction, unspecified as to partial versus complete obstruction (principal); J96.11 Chronic respiratory failure with hypoxia; Z85.038 Personal history of other malignant neoplasm of large intestine; Z90.49 Acquired absence of other specified parts of digestive tract; G25.81 Restless legs syndrome; E03.9 Hypothyroidism, unspecified; J44.9 Chronic obstructive pulmonary disease, unspecified; I10 Essential (primary) hypertension; Z99.81 Dependence on supplemental oxygen; M54.9 Dorsalgia, unspecified; Z88.2 Allergy status to sulfonamides; Z88.1 Allergy status to other antibiotic agents; I25.10 Atherosclerotic heart disease of native coronary artery without angina pectoris; I25.2 Old myocardial infarction; M19.90 Unspecified osteoarthritis, unspecified site; G89.29 Other chronic pain; F41.9 Anxiety disorder, unspecified; Z95.5 Presence of coronary angioplasty implant and graft; E78.5 Hyperlipidemia, unspecified; Z86.718 Personal history of other venous thrombosis and embolism; F32.A Depression, unspecified; G47.33 Obstructive sleep apnea (adult) (pediatric)
CPT/HCPCS: 36415; 74176; 80048; 80053; 83605; 83690; 85025; 85027; 93005; 94640; 94760

== ENCOUNTER → 2022-04-28 | Outpatient (CLI) | payer MEDICAID, MEDICARE, OTHER ==
[~2022-04-28] MED LIST changes: +ASCO-262 PO; +BIOT10005 PO; +CHOL10007 PO; +CLOP-31 PO; -CLOP75TA69 PO; +CRAN450T9 PO; +ONDA-105 PO; +POTASSIUM 20MEQ/15ML PO; +SOLI5TAB7 PO
== END ==
LOC: CARD 09:42
PROVIDERS: ATTEND Internal Medicine Cardiovascular Disease
DX: I51.7 Cardiomegaly (principal)
CPT/HCPCS: 93306

== ENCOUNTER → 2022-05-13 | Outpatient (CLI) | payer MEDICAID, MEDICARE ==
[~2022-05-13] MED LIST changes: +REGADENOSON 0.4 MG/5 ML SYR (LEXISCAN) IV ONE
[2022-05-13] MEDS: CATHETER FLUSH 10 ML SYR IVP PRN ×2 (08:25→09:36)
[2022-05-13 09:20] VITALS: BP 127/66
--- NOTE | 2022-05-13 16:57 | STRESS TEST ---
DATE OF SERVICE: 05/13/2022 RESTING AND POST REGADENOSON TECHNETIUM-99M TETROFOSMIN SPECT CT IMAGING ORDERING PHYSICIAN: Dr. Rosales. PRIMARY PHYSICIAN: Dr. Brewer. CLINICAL DIAGNOSIS: Coronary artery disease. Baseline images were carried out after injection of 9.99 mCi of technetium-99m tetrofosmin. This was followed by 0.4 mg regadenoson and 28.2 mCi of technetium-99m tetrofosmin for stress imaging. The electrocardiogram showed sinus rhythm at baseline. It did not change significantly with the regadenoson infusion. The patient tolerated the procedure well. Review of images at rest and following stress does not indicate any distinct perfusion defects consistent with significant myocardial ischemia or infarction. Gated images show normal global left ventricular systolic function with normal regional wall motion. Left ventricular ejection fraction is calculated to be 75%. CONCLUSIONS: 1. No evidence of significant myocardial ischemia or infarction on this study. 2. Normal regional wall motion. 3. Normal global left ventricular systolic function with a calculated ejection fraction of 75%. Job ID: [id number] DocumentID: [id number] Dictated Date: 05/13/2022 14:46:03 Glass Furnace Tender Date: 05/13/2022 16:56:00 Dictated By: LUIS ROSALES MD; MA; FACP; FACC;
== END ==
LOC: CARD 07:30
PROVIDERS: ATTEND Internal Medicine Cardiovascular Disease
DX: I25.10 Atherosclerotic heart disease of native coronary artery without angina pectoris (principal)
CPT/HCPCS: 78452; 93017; A9502

== ENCOUNTER 2022-07-04 12:19 | Emergency (ER) | payer MEDICARE, MEDICAID ==
[~2022-07-04] VITALS: Ht 152 cm; Wt 76.0 kg
[~2022-07-04 12:19] MED LIST changes: -OFLO5DRO3 OP; +OFLO5DRO8 OP; -REGADENOSON 0.4 MG/5 ML SYR (LEXISCAN) IV ONE
[2022-07-04] MEDS ORDERED: NS IV 500 ML 500 ML IV STA (12:31)
[2022-07-04] MEDS ORDERED: ONDANSETRON 4 MG/2 ML (SDV) Z0FRAN IVP ONE (12:45)
--- NOTE | 2022-07-04 12:52 | ED General ---
General Chief Complaint: Neurological Problems Stated Complaint: LETHARGIC Nursing Triage Note: pt c/o SUAREZ, dizziness, nausea, and weakness x a few days. pt a&o x 3 at triage. visited by home health this morning who advised her to come in to ed. Source of Information: Patient, EMS, Old Records Exam Limitations: No Limitations History of Present Illness Date Seen by Provider: July 04, 2022 Time Seen by Provider: 12:22 Initial Comments 82-year-old female presenting via EMS due to headache, feeling dizzy, nauseous, generally weak for the past several days. Her home health nurse saw her this morning, stated she had normal vitals, but recommended she see a doctor since she was not feeling well. Denies any chest pain, does have some mild dyspnea that she associates with her COPD, does note increased productive cough at times, no chest pain, abdominal pain, dysuria, focal weakness or numbness. She states she has chronic diarrhea from short gut syndrome. Otherwise denying any other acute complaints. Allergies and Home Medications Allergies Coded Allergies: sulfamethoxazole (Verified Allergy, Intermediate, Vomiting, 09/09/19) trimethoprim (Verified Allergy, Intermediate, Vomiting, 09/09/19) erythromycin base (Verified Allergy, Unknown, 09/09/19) quinine (Verified Allergy, Unknown, 09/09/19) cephalexin (Verified Adverse Reaction, Severe, CONFUSION, DIZZINESS, 03/04/20) Patient Home Medication List Home Medication List Reviewed: Yes Ascorbate Calcium (Vitamin C) 500 Mg Tablet, 500 MG PO DAILY, (Reported) Entered as Reported by: PATRICK SHAW on 01/14/22 162 Biotin (Biotin) 10,000 Mcg Capsule, 10,000 MCG PO DAILY, (Reported) Entered as Reported by: PATRICK SHAW on 01/14/22 1621 Cefdinir (Cefdinir) 300 Mg Capsule, 300 MG PO BID Prescribed by: KARISSA MOSQUEDA on 07/04/22 1453 Cholecalciferol (Vitamin D3) (Vitamin D3) 25 Mcg (1000 Unit) Capsule, 25 MCG PO DAILY, (Reported) Entered as Reported by: PATRICK SHAW on 01/14/22 1621 Clonazepam (Clonazepam) 1 Mg Tablet, 1 MG PO BID, (Reported) Entered as Reported by: PATRICK SHAW on 07/09/21 1510 Clopidogrel Bisulfate (Clopidogrel) 75 Mg Tablet, 75 MG PO DAILY, (Reported) Entered as Reported by: PATRICK SHAW on 01/14/22 162 Cranberry Fruit (Cranberry) 450 Mg Tablet, 450 MG PO DAILY, (Reported) Entered as Reported by: PATRICK SHAW on 01/14/22 162 Cyclosporine (Restasis) 0.05 % Droperette, 1 DROP OU BID, (Reported) Entered as Reported by: PATRICK SHAW on 01/14/22 162 Dicyclomine HCl (Dicyclomine HCl) 10 Mg Capsule, 10 MG PO QID, (Reported) Entered as Reported by: PATRICK SHAW on 01/14/22 162 Diphenoxylate HCl/Atropine (Diphenoxylate-Atrop 2.5-0.025) 1 Each Tablet, 1 EACH PO QID PRN for LOOSE STOOLS, (Reported) Entered as Reported by: TOMAS HAYS on 09/07/20 1451 Duloxetine HCl (Duloxetine HCl) 60 Mg Capsule.dr, 60 MG PO DAILY, (Reported) Entered as Reported by: TOMAS HAYS on 09/07/20 1448 Ezetimibe (Ezetimibe) 10 Mg Tablet, 10 MG PO DAILY, (Reported) Entered as Reported by: TARAN CARPENTER on 07/02/19 1122 Furosemide (Furosemide) 20 Mg Tablet, 20 MG PO DAILY, (Reported) Entered as Reported by: PATRICK SHAW on 06/18/20 1506 Levothyroxine Sodium (Levothyroxine Sodium) 112 Mcg Tablet, 112 MCG PO DAILY, (Reported) Entered as Reported by: PATRICK SHAW on 07/09/21 1510 Metoprolol Succinate (Metoprolol Succinate) 50 Mg Tab.er.24h, 50 MG PO DAILY, (Reported) Entered as Reported by: PATRICK SHAW on 05/13/19 0828 Mirabegron (Myrbetriq) 50 Mg Tab.er.24h, 50 MG PO DAILY, (Reported) Entered as Reported by: TOMAS HAYS on 09/07/20 1448 Montelukast Sodium (Montelukast Sodium) 10 Mg Tablet, 10 MG PO DAILY, (Reported) Entered as Reported by: TOMAS HAYS on 09/07/20 1448 Nitrofurantoin Macrocrystal (Nitrofurantoin) 100 Mg Capsule, 100 MG PO DAILY, (Reported) Entered as Reported by: PATRICK SHAW on 01/14/22 162 Ondansetron (Ondansetron Odt) 4 Mg Tab.rapdis, 4 MG SL Q4H PRN for NAUSEA /VOMITING Prescribed by: KARISSA MOSQUEDA on 07/04/22 1434 Ondansetron HCl (Ondansetron HCl) 4 Mg Tablet, 4 MG PO Q6H PRN for NAUSEA/VOMITING-1ST LINE, (Reported) Entered as Reported by: PATRICK SHAW on 01/14/22 162 Oxycodone HCl (Oxycodone HCl) 10 Mg Tablet, 10 MG PO Q4H PRN for PAIN-SEVERE (8- 10), (Reported) Entered as Reported by: PATRICK SHAW on 07/09/21 1510 Pantoprazole Sodium (Pantoprazole Sodium) 40 Mg Tablet.dr, 40 MG PO DAILY, (Reported) Entered as Reported by: TOMAS HAYS on 09/07/20 1448 Pregabalin (Pregabalin) 150 Mg Capsule, 150 MG PO BID, (Reported) Entered as Reported by: TOMAS HAYS on 09/07/20 1448 Ropinirole HCl (Ropinirole HCl) 4 Mg Tablet, 8 MG PO HS, (Reported) Entered as Reported by: TOMAS HAYS on 09/07/20 1448 Solifenacin Succinate (Solifenacin Succinate) 5 Mg Tablet, 5 MG PO DAILY, (Reported) Entered as Reported by: PATRICK SHAW on 01/14/22 162 Temazepam (Temazepam) 15 Mg Capsule, 30 MG PO HS PRN for SLEEP, (Reported) Entered as Reported by: TOMAS HAYS on 09/07/20 1448 [Potassium 20MEQ/15ML] 20MEQ LIQUID, 7.5 ML PO DAILY, (Reported) Entered as Reported by: PATRICK SHAW on 01/14/22 162 Review of Systems Review of Systems Constitutional: No fever EENTM: no symptoms reported Respiratory: see HPI Cardiovascular: no symptoms reported Gastrointestinal: see HPI Genitourinary: no symptoms reported Musculoskeletal: no symptoms reported Skin: no symptoms reported Psychiatric/Neurological: See HPI Hematologic/Lymphatic: No Symptoms Reported Past Clubvmg-Pohbvl-Kyulnw Hx Patient Social History Tobacco Use?: No Substance use?: No Alcohol Use?: No Pt feels they are or have been: No Immunizations Up To Date Tetanus Booster (TDap): Unknown PED Vaccines UTD: No Influenza Vaccine Up-to-Date: Yes; Up-to-Date First/Initial COVID19 Vaccinat: Received but unknown date. Second COVID19 Vaccination Javier: Received but unknown date. Third COVID19 Vaccination Date: Received but unknown date. 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 Sexually Transmitted Disease: No HIV/AIDS: No Genitourinary: Yes Bladder Infection Gastrointestinal: Yes Abdominal Hernia, Gastroesophageal Reflux, Obstructive Bowel, Polyps, Esophagitis, Hiatal Hernia Musculoskeletal: Yes Degenerate Disk Disease, Arthritis, Chronic Back Pain, Fractures Endocrine: No Hypothyroidsim HEENT: Yes Cataract Loss of Vision: Bilateral Hearing Impairment: Hard of Hearing Cancer: Yes Colon Did You Recieve Any Treatments: Yes What Type of Treatment Did You: Surgical Intervention Psychosocial: Yes Anxiety Integumentary: No Blood Disorders: Yes (ANEMIA) Adverse Reaction/Blood Tranf: No (HAS HAD BLOOD WITH NO REACTION) Family Medical History Family history: Hypertension G8 BROTHER Myocardial infarction 19 MOTHER G8 BROTHER Heart Disease, Hypertension SOCIAL HISTORY: -ETOH--OCCASIONAL USE IN PAST -DRUGS--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 GUZMAN IN [place] -RIGHT HEMICOLECTOMY/SMALL BOWEL RESECTION/LYSIS OF ADHESIONS/MULTIPLE FOREIGN BODIES REMOVED ( CORKSCREW TACKS FROM PREVIOUS HERNIA MESH ) 09/12/[address] NELSON -CYSTOSCOPY WITH BOTOX INJECTIONS 07/09/[address] MCDONALD. -MULTIPLE HERNIA REPAIRS WITH MESH -MULTIPLE EGD'S/COLONOSCOPIES/DILATIONS OF ESOPHAGEAL STRICTURES -CARDIAC CATHS--STENTS X 2 -KYPHOPLASTIES -APPENDECTOMY -RIGHT HIP FRACTURE ORIF WITH PIN IN HIP AND HEATHER IN [place] 03/2016 -HYSTERECTOMY/BILATERAL SALPINGO-OOPHORECTOMY -TONSILLECTOMY ADDITIONAL PAST MEDICAL HISTORY: -HAS 24 HOUR IN-HOME CARETAKERS -FREQUENT FALLS--USES A WALKER -RESTLESS LEG SYNDROME -RIGHT PALUMBO'S CYST -MULTIPLE COMPRESSION FRACTURES WITH KYPHOPLASTIES -CHRONIC DYSPHAGIA -CHRONIC ABDOMINAL PAIN COMPLAINTS -HAS Physical Exam Vital Signs Vital Signs - First Documented 07/04/22 12:21 Temp 36.0 Pulse 62 Resp 20 B/P (MAP) 135/93 (107) Pulse Ox 96 O2 Delivery Room Air Capillary Refill : Less Than 3 Seconds Height, Weight, BMI Height: 5'2.00" Weight: 163lbs. 0.0oz. 73.785203gh; 32.00 BMI Method:Stated General Appearance: No Apparent Distress, WD/WN Eyes: Bilateral Eye Normal Inspection, Bilateral Eye PERRL, Bilateral Eye EOMI HEENT: PERRL/EOMI, Normal ENT Inspection, Pharynx Normal Neck: Full Range of Motion, Normal Inspection, Non Tender, Supple Respiratory: Chest Non Tender, Lungs Clear, Normal Breath Sounds, No Accessory Muscle Use, No Respiratory Distress Cardiovascular: Regular Rate, Rhythm, No Edema, Normal Peripheral Pulses Gastrointestinal: Normal Bowel Sounds, Non Tender, Soft; No Distended, No Guarding Back: Normal Inspection, No CVA Tenderness Extremity: Normal Capillary Refill, Normal Inspection, Normal Range of Motion, Non Tender, No Calf Tenderness, No Pedal Edema Neurologic/Psychiatric: Alert, Oriented x3, No Motor/Sensory Deficits, Normal Mood/Affect, 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 Norm as Tested, Other (Normal visual fallon and visual acuity in her right eye, left eye chronically blind) Skin: Normal Color, Warm/Dry Progress/Results/Core Measures Suspected Sepsis SIRS Temperature: Pulse: 62 Respiratory Rate: 20 Laboratory Tests 07/04/22 12:50: White Blood Count 8.2 Blood Pressure 135 /93 Mean: 107 Laboratory Tests 07/04/22 12:50: Creatinine 1.14, INR Comment 0.9, Platelet Count 268, Total Bilirubin 0.5 Results/Orders Lab Results Laboratory Tests Test 07/04/22 12:50 07/04/22 14:08 Range/Units White Blood Count 8.2 4.3-11.0 10^3/uL Red Blood Count 4.43 3.80-5.11 10^6/uL Hemoglobin 13.4 11.5-16.0 g/dL Hematocrit 42 35-52 % Mean Corpuscular Volume 94 80-99 fL Mean Corpuscular Hemoglobin 30 25-34 pg Mean Corpuscular Hemoglobin Concent 32 32-36 g/dL Red Cell Distribution Width 15.4 H 10.0-14.5 % Platelet Count 268 130-400 10^3/uL Mean Platelet Volume 10.7 9.0-12.2 fL Immature Granulocyte % (Auto) 4 % Neutrophils (%) (Auto) 59 42-75 % Lymphocytes (%) (Auto) 26 12-44 % Monocytes (%) (Auto) 7 0-12 % Eosinophils (%) (Auto) 4 0-10 % Basophils (%) (Auto) 1 0-10 % Neutrophils # (Auto) 4.8 1.8-7.8 10^3/uL Lymphocytes # (Auto) 2.1 1.0-4.0 10^3/uL Monocytes # (Auto) 0.6 0.0-1.0 10^3/uL Eosinophils # (Auto) 0.3 0.0-0.3 10^3/uL Basophils # (Auto) 0.1 0.0-0.1 10^3/uL Immature Granulocyte # (Auto) 0.3 H 0.0-0.1 10^3/uL Prothrombin Time 12.3 12.2-14.7 SEC INR Comment 0.9 0.8-1.4 Activated Partial Thromboplast Time 28 24-35 SEC Sodium Level 141 135-145 MMOL/L Potassium Level 3.8 3.6-5.0 MMOL/L Chloride Level 104 98-107 MMOL/L Carbon Dioxide Level 26 21-32 MMOL/L Anion Gap 11 5-14 MMOL/L Blood Urea Nitrogen 20 H 7-18 MG/DL Creatinine 1.14 0.60-1.30 MG/DL Estimat Glomerular Filtration Rate 47 BUN/Creatinine Ratio 18 Glucose Level 116 H 70-105 MG/DL Calcium Level 10.0 8.5-10.1 MG/DL Corrected Calcium 10.1 8.5-10.1 MG/DL Magnesium Level 2.0 1.6-2.4 MG/DL Total Bilirubin 0.5 0.1-1.0 MG/DL Aspartate Amino Transf (AST/SGOT) 10 5-34 U/L Alanine Aminotransferase (ALT/SGPT) 11 0-55 U/L Alkaline Phosphatase 70 40-136 U/L Total Protein 6.7 6.4-8.2 GM/DL Albumin 3.9 3.2-4.5 GM/DL Lipase < 4 L 8-78 U/L Urine Color YELLOW Urine Clarity CLOUDY Urine pH 5.5 5-9 Urine Specific [place] 1.025 H 1.016-1.022 Urine Protein NEGATIVE NEGATIVE Urine Glucose (UA) NEGATIVE NEGATIVE Urine Ketones NEGATIVE NEGATIVE Urine Nitrite POSITIVE H NEGATIVE Urine Bilirubin NEGATIVE NEGATIVE Urine Urobilinogen 0.2 < = 1.0 MG/DL Urine Leukocyte Esterase TRACE H NEGATIVE Urine RBC (Auto) NEGATIVE NEGATIVE Urine RBC NONE /HPF Urine WBC 25-50 H /HPF Urine Squamous Epithelial Cells RARE /HPF Urine Crystals NONE /LPF Urine Bacteria LARGE H /HPF Urine Casts NONE /LPF Urine Mucus NEGATIVE /LPF Urine Culture Indicated YES My Orders Orders - KARISSA MOSQUEDA MD Cbc With Automated Diff (07/04/22 12:31) Comprehensive Metabolic Panel (07/04/22 12:31) Lipase (07/04/22 12:31) Magnesium (07/04/22 12:31) Protime With Inr (07/04/22 12:31) Partial Thromboplastin Time (07/04/22 12:31) Chest 1 View, Ap/Pa Only (07/04/22 12:31) Ct Head Wo (07/04/22 12:31) Ed Iv/Invasive Line Start (07/04/22 12:31) Ns Iv 500 Ml (Sodium Chloride 0.9%) (07/04/22 12:31) Ondansetron Injection (Zofran Injectio (07/04/22 12:45) Acetaminophen Tablet (Tylenol Tablet) (07/04/22 12:45) Oxycodone Immediate Rel Tablet (Oxyir Ta (07/04/22 14:15) Ua Culture If Indicated (07/04/22 14:14) Urine Culture (07/04/22 14:08) Ceftriaxone Iv/Im (Rocephin Iv/Im) (07/04/22 14:45) Medications Given in ED Current Medications Medications Dose Ordered Sig/Perez Route Start Time Stop Time Status Last Admin Dose Admin Ceftriaxone Sodium 1000 mg/ Sodium Chloride 50 ml @ 100 mls/hr ONCE ONCE IV 07/04/22 14:45 07/04/22 15:14 DC 07/04/22 15:11 100 MLS/HR Ondansetron HCl 4 mg ONCE ONCE IVP 07/04/22 12:45 07/04/22 12:46 DC 07/04/22 13:11 4 MG Oxycodone HCl 10 mg ONCE ONCE PO 07/04/22 14:15 07/04/22 14:16 DC 07/04/22 14:21 10 MG Vital Signs/I&O 07/04/22 12:21 Temp 36.0 Pulse 62 Resp 20 B/P (MAP) 135/93 (107) Pulse Ox 96 O2 Delivery Room Air Capillary Refill : Less Than 3 Seconds Blood Pressure Mean: 107 Progress Note : Progress Note 82-year-old female with above history coming in due to nausea, vomiting, headache, general malaise. ABCs were intact and vitals were stable on presentation. Physical exam with a soft and nontender abdomen and a nonfocal neuro exam. An IV was placed and basic labs were obtained and were significant for normal w brian blood cell count, normal creatinine, normal LFTs, negative lipase. Initially offered Tylenol for pain control, patient refused this saying she wanted something stronger. She is on oxycodone 10 mg as an outpatient, so she was given this. Later on she stated that she was having burning with urination so this was then added on. This is concerning for infection. CT head with no acute abnormalitiesShe was given ceftriaxone. It is listed as there is an allergy to cephalexin, the patient states she actually tolerates this. She previously grew out E. coli and Klebsiella that was sensitive to cephalosporins. . Chest x-ray with nothing acute as well on my interpretation, specifically no obvious pneumonia. On reassessment, patient nontoxic-appearing, tolerating p.o., I believe stable for discharge with outpatient follow-up. She was sent home with strict return precautions. ECG Initial ECG Impression Date: July 04, 2022 Initial ECG Impression Time: 12:36 Initial ECG Rate: 57 Initial ECG Rhythm: S.Alonzo Comment Narrow QRS, normal axis, no significant ST changes Diagnostic Imaging Diagonstic Imaging: Xray (chest), CT (head) Comments [facility] [place] [place] NAME: [facility] REC#: [id number] PT STATUS: REG ER : 1940 PHYSICIAN: KARISSA MOSQUEDA MD ADMIT DATE: 07/04/22/ER Draft Date of Exam:07/04/22 CHEST 1 VIEW, AP/PA ONLY INDICATION: Productive cough with weakness. COMPARISON: 07/09/2021. FINDINGS: The lungs are clear. No failure, effusion, or pneumothorax. IMPRESSION: No acute appearing abnormality. Dictated on workstation # [id number] Dict: 07/04/22 1301 Trans: 07/04/22 1303 [id number] Interpreted by: REBECCA BERNSTEIN Electronically signed by: [facility] [place] NAME: [facility] REC#: [id number] PT STATUS: REG ER : 1940 PHYSICIAN: KARISSA MOSQUEDA MD ADMIT DATE: 07/04/22/ER Draft Date of Exam:07/04/22 CT HEAD WO PROCEDURE: CT head without contrast. TECHNIQUE: Multiple contiguous axial images were obtained through the brain without the use of intravenous contrast. Auto Exposure Controls were utilized during the CT exam to meet ALARA standards for radiation dose reduction. INDICATION: Head pain, dizziness, weakness. Symptoms compared with head CT 10/21/2020 FINDINGS: Mild cerebral cortical atrophy predominantly bifrontal unchanged. There is a moderate to severe periventricular white matter hypodensities symmetric and unchanged likely chronic small vessel disease. There is no sulcal effacement and there is no hemorrhage. No findings of edema or elevated pressures and no mass effect. The paranasal sinuses nonacute. There is a partial right-sided mastoid effusion inferiorly this is unchanged. IMPRESSION: Stable chronic bifrontal atrophy and periventricular white matter disease all chronic. No acute appearing intracerebral pathology. No change from prior. Dictated on workstation # [id number] Dict: 07/04/22 1330 Trans: 07/04/[address] [place] [address] [id number] Interpreted by: REBECCA BERNSTEIN Electronically signed by: Departure Impression Primary Impression: Nausea vomiting and diarrhea Additional Impressions: Dizziness Cystitis Disposition: 01 HOME, SELF-CARE Condition: Stable Departure-Patient Inst. Decision time for Depature: 14:40 Referrals: TORIBIO FOFANA DO (PCP/Family) Primary Care Physician Patient Instructions: Nausea and Vomiting, Adult ED, Acute Cystitis (DC) Add. Discharge Instructions: We are not seeing any evidence of significant illness. Likely this is viral. Nausea medicines were sent to your pharmacy. You also have a urinary tract infection so antibiotics were also sent. Follow-up with regular doctor if you need to refill on your oxycodone sooner. Scripts Cefdinir (Cefdinir) 300 Mg Capsule 300 MG PO BID for 5 Days, #10 CAP 0 Refills Prov: KARISSA MOSQUEDA MD 07/04/22 Ondansetron (Ondansetron Odt) 4 Mg Tab.rapdis 4 MG SL Q4H PRN for NAUSEA/VOMITING for 5 Days, #20 TAB Prov: KARISSA MOSQUEDA MD 07/04/22 KARISSA MOSQUEDA MD July 04, 2022 12:52
--- NOTE | 2022-07-04 13:04 | Diagnostic Imaging Report ---
INDICATION: Productive cough with weakness. COMPARISON: 07/09/2021. FINDINGS: The lungs are clear. No failure, effusion, or pneumothorax. IMPRESSION: No acute appearing abnormality. Dictated by: Dictated on workstation # [id number]
[2022-07-04] MEDS: ACETAMINOPHEN 500 MG TAB (TYLENOL) PO ONE ×2 (13:11→13:38)
[2022-07-04 13:19] LABS: BASOPHILS # (AUTO) 0.1 10^3/uL (0.0-0.1); BASOPHILS % (AUTO) 1 % (0-10); EOSINOPHILS # (AUTO) 0.3 10^3/uL (0.0-0.3); EOSINOPHILS % (AUTO) 4 % (0-10); HEMATOCRIT 42 % (35-52); HEMOGLOBIN 13.4 g/dL (11.5-16.0); LYMPHOCYTES # (AUTO) 2.1 10^3/uL (1.0-4.0); LYMPHOCYTES % (AUTO) 26 % (12-44); MEAN CORPUSCULAR HEMOGLOBIN 30 pg (25-34); MEAN CORPUSCULAR HGB CONC 32 g/dL (32-36); MEAN CORPUSCULAR VOLUME 94 fL (80-99); MEAN PLATELET VOLUME 10.7 fL (9.0-12.2); MONOCYTES # (AUTO) 0.6 10^3/uL (0.0-1.0); MONOCYTES % (AUTO) 7 % (0-12); NEUTROPHILS # (AUTO) 4.8 10^3/uL (1.8-7.8); NEUTROPHILS % (AUTO) 59 % (42-75); PLATELET COUNT 268 10^3/uL (130-400); WHITE BLOOD COUNT 8.2 10^3/uL (4.3-11.0)
[2022-07-04 13:28] LABS: ALBUMIN 3.9 GM/DL (3.2-4.5); CHLORIDE 104 MMOL/L (98-107); INR 0.9 (0.8-1.4); POTASSIUM 3.8 MMOL/L (3.6-5.0); PROTHROMBIN TIME PATIENT 12.3 SEC (12.2-14.7); SODIUM 141 MMOL/L (135-145)
[2022-07-04 13:31] LABS: GLUCOSE 116 MG/DL (70-105); TOTAL PROTEIN 6.7 GM/DL (6.4-8.2)
[2022-07-04 13:32] LABS: CARBON DIOXIDE 26 MMOL/L (21-32)
[2022-07-04 13:33] LABS: BILIRUBIN,TOTAL 0.5 MG/DL (0.1-1.0)
[2022-07-04 13:34] LABS: ALKALINE PHOSPHATASE 70 U/L (40-136)
--- NOTE | 2022-07-04 13:34 | Diagnostic Imaging Report ---
PROCEDURE: CT head without contrast. TECHNIQUE: Multiple contiguous axial images were obtained through the brain without the use of intravenous contrast. Auto Exposure Controls were utilized during the CT exam to meet ALARA standards for radiation dose reduction. INDICATION: Head pain, dizziness, weakness. Symptoms compared with head CT 10/21/2020 FINDINGS: Mild cerebral cortical atrophy predominantly bifrontal unchanged. There is a moderate to severe periventricular white matter hypodensities symmetric and unchanged likely chronic small vessel disease. There is no sulcal effacement and there is no hemorrhage. No findings of edema or elevated pressures and no mass effect. The paranasal sinuses nonacute. There is a partial right-sided mastoid effusion inferiorly this is unchanged. IMPRESSION: Stable chronic bifrontal atrophy and periventricular white matter disease all chronic. No acute appearing intracerebral pathology. No change from prior. Dictated by: Dictated on workstation # [id number]
[2022-07-04 13:35] LABS: CREATININE SERUM 1.14 MG/DL (0.60-1.30); GFR ESTIMATED 47
[2022-07-04 13:36] LABS: BUN/CREATININE RATIO 18
[2022-07-04 13:37] LABS: ALANINE AMINOTRANSFERASE 11 U/L (0-55)
[2022-07-04 13:38] LABS: LIPASE < 4 U/L (8-78)
[2022-07-04 14:26] LABS: BILIRUBIN,URINE NEGATIVE (NEGATIVE); CLARITY,URINE CLOUDY; COLOR,URINE YELLOW; GLUCOSE, URINE (UA) NEGATIVE (NEGATIVE); KETONES,URINE NEGATIVE (NEGATIVE); LEUKOCYTE ESTERASE ,URINE TRACE (NEGATIVE); NITRITE,URINE POSITIVE (NEGATIVE); PH,URINE 5.5 (5-9); PROTEIN,URINE NEGATIVE (NEGATIVE)
[2022-07-04] MEDS ORDERED: ONDA4TAB11 SL (14:34)
[2022-07-04 14:37] LABS: WBC,URINE 25-50 /HPF
[2022-07-04 14:38] LABS: BACTERIA,URINE LARGE /HPF; SQUAMOUS EPITHELIAL CELL,UR RARE /HPF
[2022-07-04] MEDS ORDERED: cefTRIAXone IV/IM 1,000 MG in NS (IVPB) 50 ML IV ONE (14:45)
[2022-07-04] MEDS ORDERED: CEFD300C3 PO (14:53)
[2022-07-04 15:32] VITALS: BP 120/84
== END 2022-07-04 15:32 | disposition home or self-care (01) ==
LOC: EDUNIT# 12:19 → ER 12:20
DX: N30.90 Cystitis, unspecified without hematuria (principal); R11.2 Nausea with vomiting, unspecified; R42 Dizziness and giddiness; R19.7 Diarrhea, unspecified; Z87.891 Personal history of nicotine dependence; Z88.2 Allergy status to sulfonamides
CPT/HCPCS: 36415; 70450; 71045; 80053; 81000; 83690; 83735; 85025; 85610; 85730; 87077; 87088; 93005

== ENCOUNTER → 2022-07-20 | Outpatient (CLI) | payer MEDICARE, MEDICAID ==
[~2022-07-20] MED LIST changes: +BARIUM for suspension 96% w/w (Vanilla Silq Medium Density) PO ONE; +BARIUM for suspension 98% w/w (Vanilla Silq High Density) PO ONE
--- NOTE | 2022-07-20 12:56 | Diagnostic Imaging Report ---
INDICATION: Choking and vomiting. Patient ingested effervescent crystals as well as thin and thick barium and imaging of the esophagus was performed with multiple obliquities. 42 seconds of fluoroscopic time was utilized. Esophagus is without evidence of discrete mass. Occasional tertiary contractions present. No hiatal hernia or gastroesophageal reflux was demonstrated. IMPRESSION: Generalized esophageal dysmotility without evidence of discrete mass or stricture. Dictated by: Dictated on workstation # [id number]
== END ==
LOC: RAD 09:53
PROVIDERS: ATTEND Surgery
DX: T17.918A Gastric contents in respiratory tract, part unspecified causing other injury, initial encounter (principal)
CPT/HCPCS: 74220

== ENCOUNTER 2022-08-11 09:39 | Outpatient (RCR) | payer MEDICARE, MEDICAID ==
[2022-08-04 11:01] LABS: BASOPHILS # (AUTO) 0.1 10^3/uL (0.0-0.1); BASOPHILS % (AUTO) 1 % (0-10); EOSINOPHILS # (AUTO) 0.3 10^3/uL (0.0-0.3); EOSINOPHILS % (AUTO) 4 % (0-10); HEMATOCRIT 38 % (35-52); HEMOGLOBIN 12.3 g/dL (11.5-16.0); LYMPHOCYTES % (AUTO) 24 % (12-44); MEAN CORPUSCULAR HEMOGLOBIN 30 pg (25-34); MEAN CORPUSCULAR HGB CONC 32 g/dL (32-36); MEAN CORPUSCULAR VOLUME 92 fL (80-99); MEAN PLATELET VOLUME 10.1 fL (9.0-12.2); MONOCYTES # (AUTO) 0.5 10^3/uL (0.0-1.0); MONOCYTES % (AUTO) 6 % (0-12); NEUTROPHILS # (AUTO) 5.1 10^3/uL (1.8-7.8); NEUTROPHILS % (AUTO) 62 % (42-75); PLATELET COUNT 263 10^3/uL (130-400); WHITE BLOOD COUNT 8.2 10^3/uL (4.3-11.0)
[~2022-08-11 09:39] MED LIST changes: -BARIUM for suspension 96% w/w (Vanilla Silq Medium Density) PO ONE; -BARIUM for suspension 98% w/w (Vanilla Silq High Density) PO ONE; +POTA-185 PO; -POTA10TA PO
== END 2022-08-19 | disposition home or self-care (01) ==
LOC: ONC 09:39
PROVIDERS: ATTEND Internal Medicine Hematology & Oncology
DX: C18.9 Malignant neoplasm of colon, unspecified (principal); I25.10 Atherosclerotic heart disease of native coronary artery without angina pectoris; I10 Essential (primary) hypertension; I65.23 Occlusion and stenosis of bilateral carotid arteries; E78.2 Mixed hyperlipidemia; R06.00 Dyspnea, unspecified
CPT/HCPCS: 82378; 82728; 83540; 83550; 85025

== ENCOUNTER → 2022-11-29 | Outpatient (CLI) | payer MEDICAID ==
[~2022-11-29] MED LIST changes: +CATHETER FLUSH 10 ML SYR IV PRN; +DICY-11 PO; -EZET10TA17 PO; +EZET10TA83 PO; +FAMO-356 PO; -FAMO20TA3 PO; +HOLD METFORMIN - RECEIVED CONTRAST 20 ML VIAL IV SCH; +IOHEXOL 350 MG/ML 100 ML (OMNIPAQUE 350) VIAL IV ONE; +MIRT-122 PO; -MIRT-96 PO; +NS 100 ML (IVPB) BAG IV ONE; -PREG150C46 PO; +PREG150C47 PO; +PREG25CA PO; -PREG25CA19 PO; -ROPI1TAB PO; +ROPI1TAB46 PO; +ROPI4TAB40 PO; -ROPI4TAB5 PO
--- NOTE | 2022-11-29 13:25 | Diagnostic Imaging Report ---
EXAMINATION: CT chest, abdomen and pelvis with intravenous contrast. TECHNIQUE: Multiple contiguous axial images were obtained through the chest, abdomen and pelvis after the uneventful administration of intravenous contrast. All CT scans use one or more of the following dose optimizing techniques: automated exposure control, MA and/or KvP adjustment based on patient size and exam type or iterative reconstruction. HISTORY: Colon cancer COMPARISON: 01/14/2022 FINDINGS: There is no edema or pneumonia. No pleural effusion. No pneumothorax. No suspicious nodules. There is no axillary or supraclavicular lymphadenopathy. There is no mediastinal lymphadenopathy. Heart size is normal. There is a stent in the left anterior descending artery.. No pericardial effusion. Aorta is normal in caliber. The liver is normal without focal lesion. There is no biliary ductal dilation. Gallbladder is normal. Pancreas is normal. Small low attenuating areas in the spleen may be related to phase of contrast or small cysts. Adrenal glands are normal. The kidneys are normal. There is no hydronephrosis. Urinary bladder is normal. Bowel is normal in caliber without obstruction or inflammation. There is a large hernia in the ventral abdomen containing loops of bowel. There is a second fat-containing hernia more superiorly. There has been a rectal resection and a right colon resection. No free fluid or air. No abdominal or pelvic lymphadenopathy. Aorta is normal in caliber without aneurysm. There are no suspicious osseus lesions. There has been right femur fixation. There has been vertebroplasty and several thoracic and lumbar compression fractures. Other thoracic and lumbar compression fractures are unchanged. IMPRESSION: 1. No metastatic disease in the chest, abdomen or pelvis. Dictated by: Dictated on workstation # [id number]
== END ==
LOC: RAD 11:29
PROVIDERS: ATTEND Internal Medicine Hematology & Oncology
DX: C18.9 Malignant neoplasm of colon, unspecified (principal)
CPT/HCPCS: 71260; 74177

== ENCOUNTER 2022-12-01 10:03 | Outpatient (RCR) | payer MEDICARE, MEDICAID ==
[~2022-12-01 10:03] MED LIST changes: -CATHETER FLUSH 10 ML SYR IV PRN; -ESZO2TAB4 PO; +ESZO2TAB56 PO; -HOLD METFORMIN - RECEIVED CONTRAST 20 ML VIAL IV SCH; -IOHEXOL 350 MG/ML 100 ML (OMNIPAQUE 350) VIAL IV ONE; -NS 100 ML (IVPB) BAG IV ONE
[2022-12-29] MEDS ORDERED: IPRA3AMP31 IH (12:38)
[2022-12-29] MEDS ORDERED: PRED10TA22 PO (12:38)
== END 2022-12-20 | disposition home or self-care (01) ==
LOC: ONC 10:03
PROVIDERS: ATTEND Internal Medicine Hematology & Oncology
DX: C18.9 Malignant neoplasm of colon, unspecified (principal); D64.9 Anemia, unspecified; I25.10 Atherosclerotic heart disease of native coronary artery without angina pectoris; I10 Essential (primary) hypertension; I65.23 Occlusion and stenosis of bilateral carotid arteries; E78.2 Mixed hyperlipidemia; R06.00 Dyspnea, unspecified
CPT/HCPCS: 99214

== ENCOUNTER 2022-12-23 09:22 | Emergency (ER) | payer MEDICARE, MEDICAID ==
[~2022-12-23] VITALS: Ht 145 cm; Wt 79.3 kg
--- NOTE | 2022-12-23 09:34 | ED General ---
General Stated Complaint: SOB Source of Information: Patient Exam Limitations: No Limitations History of Present Illness Date Seen by Provider: Dec 23, 2022 Time Seen by Provider: 09:26 Initial Comments Here by EMS with report of shortness of air over the last 3 days. EMS reports that the patient was laying supine and did have audible wheezes but those imp roved with just sitting up. She is not requiring oxygen and is normally on 3 L as needed. EMS reports otherwise normal vital signs. Patient reports that she has had 3 days of symptoms that have worsened to this morning. She does have known chronic lung disease. She does live at home. Denies nausea, vomiting or diarrhea and states she is eating and drinking okay. Timing/Duration: 3-4 Days, Changing Over Time, Getting Worse Severity: Moderate Modifying Factors: improves with Rest Associated Systoms: No Chest Pain; Cough; No Fever/Chills, No Nausea/Vomiting; Shortness of Air, Weakness Allergies and Home Medications Allergies Coded Allergies: sulfamethoxazole (Verified Allergy, Intermediate, Vomiting, 09/09/19) trimethoprim (Verified Allergy, Intermediate, Vomiting, 09/09/19) erythromycin base (Verified Allergy, Unknown, 09/09/19) quinine (Verified Allergy, Unknown, 09/09/19) cephalexin (Verified Adverse Reaction, Severe, CONFUSION, DIZZINESS, 03/04/20) Patient Home Medication List Home Medication List Reviewed: Yes Ascorbate Calcium (Vitamin C) 500 Mg Tablet, 500 MG PO DAILY, (Reported) Entered as Reported by: PATRICK SHAW on 01/14/22 162 Biotin (Biotin) 10,000 Mcg Capsule, 10,000 MCG PO DAILY, (Reported) Entered as Reported by: PATRICK SHAW on 01/14/22 162 Cefdinir (Cefdinir) 300 Mg Capsule, 300 MG PO BID Prescribed by: KARISSA MOSQUEDA on 07/04/22 1453 Cholecalciferol (Vitamin D3) (Vitamin D3) 25 Mcg (1000 Unit) Capsule, 25 MCG PO DAILY, (Reported) Entered as Reported by: PATRICK SHAW on 01/14/22 162 Clonazepam (Clonazepam) 1 Mg Tablet, 1 MG PO BID, (Reported) Entered as Reported by: PATRICK SHAW on 07/09/21 1510 Clopidogrel Bisulfate (Clopidogrel) 75 Mg Tablet, 75 MG PO DAILY, (Reported) Entered as Reported by: PATRICK SHAW on 01/14/22 1621 Cranberry Fruit (Cranberry) 450 Mg Tablet, 450 MG PO DAILY, (Reported) Entered as Reported by: PATRICK SHAW on 01/14/22 162 Cyclosporine (Restasis) 0.05 % Droperette, 1 DROP OU BID, (Reported) Entered as Reported by: PATRICK SHAW on 01/14/22 1621 Dicyclomine HCl (Dicyclomine HCl) 10 Mg Capsule, 10 MG PO QID, (Reported) Entered as Reported by: PATRICK SHAW on 01/14/22 1621 Diphenoxylate HCl/Atropine (Diphenoxylate-Atrop 2.5-0.025) 1 Each Tablet, 1 EACH PO QID PRN for LOOSE STOOLS, (Reported) Entered as Reported by: TOMAS HAYS on 09/07/20 1451 Duloxetine HCl (Duloxetine HCl) 60 Mg Capsule.dr, 60 MG PO DAILY, (Reported) Entered as Reported by: TOMAS HAYS on 09/07/20 1448 Ezetimibe (Ezetimibe) 10 Mg Tablet, 10 MG PO DAILY, (Reported) Entered as Reported by: TARAN CARPENTER on 07/02/19 1122 Furosemide (Furosemide) 20 Mg Tablet, 20 MG PO DAILY, (Reported) Entered as Reported by: PATRICK HSAW on 06/18/20 1506 Levothyroxine Sodium (Levothyroxine Sodium) 112 Mcg Tablet, 112 MCG PO DAILY, (Reported) Entered as Reported by: PATRICK SHAW on 07/09/21 1510 Metoprolol Succinate (Metoprolol Succinate) 50 Mg Tab.er.24h, 50 MG PO DAILY, (Reported) Entered as Reported by: PATRICK SHAW on 05/13/19 0828 Mirabegron (Myrbetriq) 50 Mg Tab.er.24h, 50 MG PO DAILY, (Reported) Entered as Reported by: TOMAS HAYS on 09/07/20 1448 Montelukast Sodium (Montelukast Sodium) 10 Mg Tablet, 10 MG PO DAILY, (Reported) Entered as Reported by: TOMAS HAYS on 09/07/20 1448 Nitrofurantoin Macrocrystal (Nitrofurantoin) 100 Mg Capsule, 100 MG PO DAILY, (Reported) Entered as Reported by: PATRICK SHAW on 01/14/22 162 Ondansetron (Ondansetron Odt) 4 Mg Tab.rapdis, 4 MG SL Q4H PRN for NAUSEA/VOMITING Prescribed by: KARISSA MOSQUEDA on 07/04/22 1434 Ondansetron HCl (Ondansetron HCl) 4 Mg Tablet, 4 MG PO Q6H PRN for NAUSEA/VOMITING-1ST LINE, (Reported) Entered as Reported by: PATRICK SHAW on 01/14/22 162 Oxycodone HCl (Oxycodone HCl) 10 Mg Tablet, 10 MG PO Q4H PRN for PAIN-SEVERE (8- 10), (Reported) Entered as Reported by: PATRICK SHAW on 07/09/21 1510 Pantoprazole Sodium (Pantoprazole Sodium) 40 Mg Tablet.dr, 40 MG PO DAILY, (Reported) Entered as Reported by: TOMAS HAYS on 09/07/20 1448 Pregabalin (Pregabalin) 150 Mg Capsule, 150 MG PO BID, (Reported) Entered as Reported by: TOMAS HAYS on 09/07/20 1448 Ropinirole HCl (Ropinirole HCl) 4 Mg Tablet, 8 MG PO HS, (Reported) Entered as Reported by: TOMAS HAYS on 09/07/20 1448 Solifenacin Succinate (Solifenacin Succinate) 5 Mg Tablet, 5 MG PO DAILY, (Reported) Entered as Reported by: PATRICK SHAW on 01/14/22 162 Temazepam (Temazepam) 15 Mg Capsule, 30 MG PO HS PRN for SLEEP, (Reported) Entered as Reported by: TOMAS HAYS on 09/07/20 1448 [Potassium 20MEQ/15ML] 20MEQ LIQUID, 7.5 ML PO DAILY, (Reported) Entered as Reported by: PATRICK SHAW on 01/14/22 162 Review of Systems Review of Systems Constitutional: see HPI; No chills, No fever EENTM: No nose congestion, No throat pain Respiratory: cough, short of breath, wheezing Cardiovascular: No chest pain, No edema Gastrointestinal: No nausea, No vomiting Genitourinary: no symptoms reported Musculoskeletal: no symptoms reported Skin: no symptoms reported Psychiatric/Neurological: No Symptoms Reported Past Bbbqetx-Eyzcis-Zulpjs Hx Patient Social History Tobacco Use?: No Use of E-Cig and/or Vaping dev: No Substance use?: No Alcohol Use?: No Immunizations Up To Date Tetanus Booster (TDap): Unknown PED Vaccines UTD: No First/Initial COVID19 Vaccinat: Received but unknown date. Second COVID19 Vaccination Javier: Received but unknown date. Third COVID19 Vaccination Date: Received but unknown date. Seasonal Allergies Seasonal Allergies: Yes Past Medical History Surgeries: Yes Abdominal, Bowel Surgery, Hysterectomy, Tonsillectomy Respiratory: Yes Pulmonary Embolism, Sleep Apnea, COPD Currently Using CPAP: No Currently Using BIPAP: No Cardiac: Yes Coronary Artery Disease, Heart Attack Neurological: No Vertigo 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 Disorders: No DIRECTOR ATHLETIC History: Hysterectomy, Menopausal Sexually Transmitted Disease: No HIV/AIDS: No Genitourinary: Yes Bladder Infection Gastrointestinal: Yes Abdominal Hernia, Gastroesophageal Reflux, Obstructive Bowel, Polyps, Esophagitis, Hiatal Hernia Musculoskeletal: Yes Degenerate Disk Disease, Arthritis, Chronic Back Pain, Fractures Endocrine: No Hypothyroidsim HEENT: Yes Cataract Loss of Vision: Bilateral Hearing Impairment: Hard of Hearing Cancer: Yes Colon Did You Recieve Any Treatments: Yes What Type of Treatment Did You: Surgical Intervention Psychosocial: Yes Anxiety Integumentary: No Blood Disorders: Yes (ANEMIA) Adverse Reaction/Blood Tranf: No (HAS HAD BLOOD WITH NO REACTION) Family Medical History Reviewed Nursing Family Hx Family history: Hypertension G8 BROTHER Myocardial infarction 19 MOTHER G8 BROTHER Heart Disease, Hypertension SOCIAL HISTORY: -ETOH--OCCASIONAL USE IN PAST -DRUGS--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 GUZMAN IN [place] -RIGHT HEMICOLECTOMY/SMALL BOWEL RESECTION/LYSIS OF ADHESIONS/MULTIPLE FOREIGN BODIES REMOVED ( CORKSCREW TACKS FROM PREVIOUS HERNIA MESH ) 09/12/[address] NELSON -CYSTOSCOPY WITH BOTOX INJECTIONS 07/09/[address] MCDONALD. -MULTIPLE HERNIA REPAIRS WITH MESH -MULTIPLE EGD'S/COLONOSCOPIES/DILATIONS OF ESOPHAGEAL STRICTURES -CARDIAC CATHS--STENTS X 2 -KYPHOPLASTIES -APPENDECTOMY -RIGHT HIP FRACTURE ORIF WITH PIN IN HIP AND HEATHER IN [place] 03/2016 -HYSTERECTOMY/BILATERAL SALPINGO-OOPHORECTOMY -TONSILLECTOMY ADDITIONAL PAST MEDICAL HISTORY: -HAS 24 HOUR IN-HOME CARETAKERS -FREQUENT FALLS--USES A WALKER -RESTLESS LEG SYNDROME -RIGHT PALUMBO'S CYST -MULTIPLE COMPRESSION FRACTURES WITH KYPHOPLASTIES -CHRONIC DYSPHAGIA -CHRONIC ABDOMINAL PAIN COMPLAINTS -HAS Physical Exam-Suspected Sepsis Physical Exam Vital Signs Vital Signs - First Documented 12/23/22 09:22 Temp 36.5 Pulse 54 Resp 16 B/P (MAP) 144/84 (104) Pulse Ox 98 O2 Delivery Nasal Cannula O2 Flow Rate 3.00 Capillary Refill : Height, Weight, BMI Height: 5'2.00" Weight: 163lbs. 0.0oz. [id number]; 36.00 BMI Method:Stated General Appearance: No Apparent Distress, WD/WN HEENT: PERRL/EOMI, Pharynx Normal Neck: Non Tender, Supple Respiratory: Crackles (Bilateral bases), Wheezing (Bilateral upper) Cardiovascular: Regular Rate, Rhythm, No Murmur Gastrointestinal: Non Tender, Soft Back: Normal Inspection, No CVA Tenderness, No Vertebral Tenderness Extremity: Normal Range of Motion, Non Tender, No Calf Tenderness, No Pedal Edema Neurologic/Psychiatric: Alert, Oriented x3 Skin: normal color, warm/dry Focused Exam Lactate Level 12/23/22 09:30: Lactic Acid Level 1.54 Lactic Acid Level Laboratory Tests Test 12/23/22 09:30 Lactic Acid Level 1.54 MMOL/L (0.50-2.00) Progress/Results/Core Measures Suspected Sepsis SIRS Temperature: Pulse: Respiratory Rate: Laboratory Tests 12/23/22 09:30: White Blood Count 9.0 Blood Pressure / Mean: 12/23/22 09:30: Lactic Acid Level 1.54 Laboratory Tests 12/23/22 09:30: Creatinine 0.96, INR Comment 1.0, Platelet Count 234, Total Bilirubin 0.9 Results/Orders Lab Results Laboratory Tests Test 12/23/22 09:27 12/23/22 09:30 12/23/22 10:34 Range/Units Influenza Type A (RT-PCR) Not Detected Not Detecte Influenza Type B (RT-PCR) Not Detected Not Detecte SARS-CoV-2 RNA (RT-PCR) Not Detected Not Detecte White Blood Count 9.0 4.3-11.0 10^3/uL Red Blood Count 4.47 3.80-5.11 10^6/uL Hemoglobin 13.1 11.5-16.0 g/dL Hematocrit 42 35-52 % Mean Corpuscular Volume 94 80-99 fL Mean Corpuscular Hemoglobin 29 25-34 pg Mean Corpuscular Hemoglobin Concent 31 L 32-36 g/dL Red Cell Distribution Width 16.0 H 10.0-14.5 % Platelet Count 234 130-400 10^3/uL Mean Platelet Volume 10.8 9.0-12.2 fL Immature Granulocyte % (Auto) 1 % Neutrophils (%) (Auto) 72 42-75 % Lymphocytes (%) (Auto) 17 12-44 % Monocytes (%) (Auto) 5 0-12 % Eosinophils (%) (Auto) 4 0-10 % Basophils (%) (Auto) 1 0-10 % Neutrophils # (Auto) 6.5 1.8-7.8 10^3/uL Lymphocytes # (Auto) 1.5 1.0-4.0 10^3/uL Monocytes # (Auto) 0.5 0.0-1.0 10^3/uL Eosinophils # (Auto) 0.4 H 0.0-0.3 10^3/uL Basophils # (Auto) 0.1 0.0-0.1 10^3/uL Immature Granulocyte # (Auto) 0.1 0.0-0.1 10^3/uL Prothrombin Time 13.2 12.2-14.7 SEC INR Comment 1.0 0.8-1.4 Activated Partial Thromboplast Time 26 24-35 SEC Sodium Level 140 135-145 MMOL/L Potassium Level 3.6 3.6-5.0 MMOL/L Chloride Level 108 H 98-107 MMOL/L Carbon Dioxide Level 24 21-32 MMOL/L Anion Gap 8 5-14 MMOL/L Blood Urea Nitrogen 14 7-18 MG/DL Creatinine 0.96 0.60-1.30 MG/DL Estimat Glomerular Filtration Rate 58 BUN/Creatinine Ratio 15 Glucose Level 98 70-105 MG/DL Lactic Acid Level 1.54 0.50-2.00 MMOL/L Calcium Level 9.2 8.5-10.1 MG/DL Corrected Calcium 9.4 8.5-10.1 MG/DL Total Bilirubin 0.9 0.1-1.0 MG/DL Aspartate Amino Transf (AST/SGOT) 11 5-34 U/L Alanine Aminotransferase (ALT/SGPT) 9 0-55 U/L Alkaline Phosphatase 93 40-136 U/L C-Reactive Protein High Sensitivity 0.41 0.00-0.50 MG/DL Total Protein 6.4 6.4-8.2 GM/DL Albumin 3.7 3.2-4.5 GM/DL Urine Color YELLOW Urine Clarity SL CLOUDY Urine pH 5.5 5-9 Urine Specific [place] 1.020 1.016-1.022 Urine Protein NEGATIVE NEGATIVE Urine Glucose (UA) NEGATIVE NEGATIVE Urine Ketones NEGATIVE NEGATIVE Urine Nitrite NEGATIVE NEGATIVE Urine Bilirubin NEGATIVE NEGATIVE Urine Urobilinogen 0.2 < = 1.0 MG/DL Urine Leukocyte Esterase TRACE H NEGATIVE Urine RBC (Auto) NEGATIVE NEGATIVE Urine RBC NONE /HPF Urine WBC 5-10 H /HPF Urine Squamous Epithelial Cells 5-10 /HPF Urine Renal Epithelial Cells 2-5 /HPF Urine Crystals PRESENT H /LPF Urine Amorphous Sediment MOD DUARTE URATES H /LPF Urine Bacteria TRACE /HPF Urine Casts PRESENT /LPF Urine Hyaline Casts 5-10 H /LPF Urine Mucus NEGATIVE /LPF Urine Culture Indicated CULTURE PENDING My Orders Orders - ISABELLA FARIAS MD Cbc And Automated Diff (12/23/22 09:31) Comprehensive Metabolic Panel (12/23/22 09:31) Blood Culture (12/23/22:31) Sputum Culture (12/23/22:31) Urinalysis (12/23/22:31) Urine Culture (12/23/22:31) Protime With Inr (12/23/22:) Partial Thromboplastin Time (12/23/22:31) Chest 1 View, Ap/Pa Only (12/23/22:31) Ed Iv/Invasive Line Start (12/23/22 09:31) Vital Signs Adult Sepsis Patie Q15M (12/23/22 09:31) O2 (12/23/22 09:31) Remove Rings In Anticipation O (12/23/22 09:31) Lactic Acid Analyzer (12/23/22 09:31) Influenza A And B By Pcr (12/23/22 09:31) Ipratropium/Albuterol Inh Soln (Ipratrop (12/23/22 09:45) Ns Iv 500 Ml (Ns Iv 500 Ml) (12/23/22 09:45) Covid 19 Inhouse Test (12/23/22 09:31) Svn Small Volume Nebulizer (12/23/22 09:31) Hs C Reactive Protein (12/23/22 09:31) Acetaminophen Tablet (Acetaminophen Ta (12/23/22 10:15) Morphine Injection (Morphine Injection (12/23/22 10:30) Prednisone Tablet (Prednisone Tablet) (12/23/22 10:45) Morphine Injection (Morphine Injection (12/23/22 10:39) Medications Given in ED Current Medications Medications Dose Ordered Sig/Perez Route Start Time Stop Time Status Last Admin Dose Admin Albuterol/ Ipratropium 3 ml ONCE ONCE INH 12/23/22 09:45 12/23/22 09:46 DC 12/23/22 10:36 3 ML Prednisone 50 mg ONCE ONCE PO 12/23/22 10:45 12/23/22 10:46 DC 12/23/22 10:42 50 MG Sodium Chloride 500 ml @ 0 mls/hr Q0M ONCE IV 12/23/22 09:45 12/23/22 09:46 DC 12/23/22 09:45 0 MLS/HR Vital Signs/I&O 12/23/22 12/23/22 09:22 09:22 Temp 36.5 Pulse 54 Resp 16 B/P (MAP) 144/84 (104) Pulse Ox 98 O2 Delivery Nasal Cannula Nasal Cannula O2 Flow Rate 3.00 2.00 Capillary Refill : Progress Note : Progress Note Seen and evaluated. IV, labs including CBC, CMP, coags, CRP, blood cultures, lactic acid, COVID and influenza screen ordered. Normal saline 500 mL bolus ordered. We will get UA and urine culture as well. Chest x-ray ordered. Monitor patient. DuoNeb ordered. Differential diagnosis includes pneumonia, COPD exacerbation, COVID, influenza, bronchitis, other viral upper respiratory infection 1027: Patient is requesting pain medicine for headache. She is unable to swa llow pills well so we will give morphine 2 mg IV. Chest x-ray reviewed by me and shows no acute abnormality including pneumonia on my interpretation. CBC grossly normal. CMP grossly normal with negative CRP. Coags normal. Lactic acid negative. COVID and influenza are negative. 1041: We will go ahead and give prednisone 50 mg p.o. and have converted morphine to 2 mg IM due to patient lost IV while transferring to go to the bathroom. We are pending UA. Monitor patient. 1205: Patient is a little better after the morphine. UA is not concerning. Much improved after DuoNeb. I believe this is bronchitis and COPD exacerbation. We will initiate outpatient steroids. She does have nebulizer treatments at home. She will follow-up with Dr. Courtney and I will send a copy of the note to him. Discharged home with return precautions. Patient verbalized understanding instructions and agreement with plan. Diagnostic Imaging Diagonstic Imaging: Xray Plain Films/CT/US/NM/MRI: chest Comments [facility], [place] NAME: [facility] REC#: [id number] PT STATUS: REG ER : 1940 PHYSICIAN: ISABELLA FARIAS MD ADMIT DATE: 12/23/22/ER Signed Date of Exam:12/23/22 CHEST 1 VIEW, AP/PA ONLY CHEST 1 VIEW, AP/PA ONLY Indication: Shortness of air Comparison: 07/04/2022 Findings: No focal airspace disease in the visualized lungs. No pleural effusion or pneumothorax. Normal cardiomediastinal silhouette. Stable changes of kyphoplasty at multiple levels in the lower thoracic spine. Impression: 1. No acute cardiopulmonary process by portable radiography. Dictated by: Dictated on workstation # [id number] Dict: 12/23/22 1024 Trans: 12/23/22 1025 [facility] [id number] Interpreted by: LUCIAN GUO MD Electronically signed by: LUCIAN GUO MD 12/23/22 1025 Departure Impression Primary Impression: COPD exacerbation Disposition: 01 HOME, SELF-CARE Condition: Stable Departure-Patient Inst. Decision time for Depature: 12:06 Referrals: JULISA COURTNEY DO (PCP/Family) Primary Care Physician Patient Instructions: Chronic Obstructive Pulmonary Disease (COPD) (DC) Add. Discharge Instructions: Continue home medications as previously prescribed. You may take Tylenol/acetaminophen 1000 mg every 6-8 hours as needed for pain. Follow-up with Dr. Courtney for recheck and further evaluation. Use your nebulizer as previously prescribed. Return for worse pain, fever, vomiting, weakness, b reathing problems or other concerns as needed. You may use your oxygen as needed and this may help over the next day or 2 to keep you more comfortable. Scripts Prednisone (Prednisone) 20 Mg Tab 40 MG PO DAILY, #6 TAB 0 Refills Prov: ISABELLA FARIAS MD 12/23/22 Copy Copies To 1: JULISA COURTNEY TIMOTHY D MD Dec 23, 2022 09:34
[2022-12-23] MEDS ORDERED: NS IV 500 ML 500 ML IV ONE (09:45)
[2022-12-23] MEDS ORDERED: RT-Ipratropium/Albuterol NEB 3 ML VIAL INH ONE (09:45)
[2022-12-23 09:46] LABS: BASOPHILS # (AUTO) 0.1 10^3/uL (0.0-0.1); BASOPHILS % (AUTO) 1 % (0-10); EOSINOPHILS # (AUTO) 0.4 10^3/uL (0.0-0.3); EOSINOPHILS % (AUTO) 4 % (0-10); HEMATOCRIT 42 % (35-52); HEMOGLOBIN 13.1 g/dL (11.5-16.0); LYMPHOCYTES # (AUTO) 1.5 10^3/uL (1.0-4.0); LYMPHOCYTES % (AUTO) 17 % (12-44); MEAN CORPUSCULAR HEMOGLOBIN 29 pg (25-34); MEAN CORPUSCULAR HGB CONC 31 g/dL (32-36); MEAN CORPUSCULAR VOLUME 94 fL (80-99); MEAN PLATELET VOLUME 10.8 fL (9.0-12.2); MONOCYTES # (AUTO) 0.5 10^3/uL (0.0-1.0); MONOCYTES % (AUTO) 5 % (0-12); NEUTROPHILS # (AUTO) 6.5 10^3/uL (1.8-7.8); NEUTROPHILS % (AUTO) 72 % (42-75); PLATELET COUNT 234 10^3/uL (130-400)
[2022-12-23 09:55] LABS: ALBUMIN 3.7 GM/DL (3.2-4.5); POTASSIUM 3.6 MMOL/L (3.6-5.0)
[2022-12-23 09:56] LABS: CALCIUM 9.2 MG/DL (8.5-10.1)
[2022-12-23 09:58] LABS: PROTHROMBIN TIME PATIENT 13.2 SEC (12.2-14.7); TOTAL PROTEIN 6.4 GM/DL (6.4-8.2)
[2022-12-23 09:59] LABS: BILIRUBIN,TOTAL 0.9 MG/DL (0.1-1.0)
[2022-12-23 10:01] LABS: CREATININE SERUM 0.96 MG/DL (0.60-1.30)
[2022-12-23] MEDS ORDERED: ACETAMINOPHEN 500 MG TABLET PO STA (10:15)
--- NOTE | 2022-12-23 10:26 | Diagnostic Imaging Report ---
CHEST 1 VIEW, AP/PA ONLY Indication: Shortness of air Comparison: 07/04/2022 Findings: No focal airspace disease in the visualized lungs. No pleural effusion or pneumothorax. Normal cardiomediastinal silhouette. Stable changes of kyphoplasty at multiple levels in the lower thoracic spine. Impression: 1. No acute cardiopulmonary process by portable radiography. Dictated by: Dictated on workstation # [id number]
[2022-12-23] MEDS ORDERED: morphine INJ 10 MG/ML 1ML (SYR OR VIAL) IVP ONE (10:30)
[2022-12-23] MEDS ORDERED: morphine INJ 10 MG/ML 1ML (SYR OR VIAL) IM STA (10:39)
[2022-12-23] MEDS ORDERED: predniSONE 20 MG TABLET PO ONE (10:45)
[2022-12-23 10:53] LABS: CLARITY,URINE SL CLOUDY; COLOR,URINE YELLOW
[2022-12-23 10:54] LABS: AMORPHOUS SEDIMENT,UR MOD AMOR URATES /LPF; BACTERIA,URINE TRACE /HPF; BILIRUBIN,URINE NEGATIVE (NEGATIVE); GLUCOSE, URINE (UA) NEGATIVE (NEGATIVE); KETONES,URINE NEGATIVE (NEGATIVE); LEUKOCYTE ESTERASE ,URINE TRACE (NEGATIVE); NITRITE,URINE NEGATIVE (NEGATIVE); PH,URINE 5.5 (5-9); PROTEIN,URINE NEGATIVE (NEGATIVE)
[2022-12-23] MEDS ORDERED: PRD20T PO (12:10)
[2022-12-23 12:21] VITALS: BP 133/61
[2022-12-29] MEDS ORDERED: IPRA3AMP31 IH (12:38)
[2022-12-29] MEDS ORDERED: PRED10TA22 PO (12:38)
== END 2022-12-23 12:21 | disposition home or self-care (01) ==
LOC: EDUNIT# 09:22 → ER 09:23
DX: J44.9 Chronic obstructive pulmonary disease, unspecified (principal); Z87.891 Personal history of nicotine dependence
CPT/HCPCS: 36415; 71045; 80053; 81000; 83605; 85025; 85610; 85730; 86141; 87040; 87088; 87636; 96372

== ENCOUNTER 2022-12-27 11:31 | Observation (INO) | payer MEDICARE, MEDICAID ==
[~2022-12-27] VITALS: Ht 152 cm; Wt 82.5 kg
[2022-12-27] MEDS ORDERED: RT-Ipratropium/Albuterol NEB 3 ML VIAL INH ONE ×2 (12:15→16:00)
[2022-12-27 12:35] LABS: BASOPHILS # (AUTO) 0.1 10^3/uL (0.0-0.1); BASOPHILS % (AUTO) 1 % (0-10); EOSINOPHILS # (AUTO) 0.3 10^3/uL (0.0-0.3); EOSINOPHILS % (AUTO) 2 % (0-10); HEMATOCRIT 40 % (35-52); HEMOGLOBIN 12.6 g/dL (11.5-16.0); LYMPHOCYTES # (AUTO) 2.2 10^3/uL (1.0-4.0); LYMPHOCYTES % (AUTO) 19 % (12-44); MEAN CORPUSCULAR HEMOGLOBIN 29 pg (25-34); MEAN CORPUSCULAR HGB CONC 32 g/dL (32-36); MEAN CORPUSCULAR VOLUME 92 fL (80-99); MEAN PLATELET VOLUME 10.6 fL (9.0-12.2); MONOCYTES # (AUTO) 0.4 10^3/uL (0.0-1.0); MONOCYTES % (AUTO) 4 % (0-12); NEUTROPHILS # (AUTO) 7.9 10^3/uL (1.8-7.8); NEUTROPHILS % (AUTO) 70 % (42-75); PLATELET COUNT 267 10^3/uL (130-400); WHITE BLOOD COUNT 11.3 10^3/uL (4.3-11.0)
[2022-12-27] MEDS ORDERED: fentaNYL INJECTION 100 MCG/2 ML VIAL IVP ONE (12:45)
[2022-12-27 12:50] LABS: PROTHROMBIN TIME PATIENT 13.4 SEC (12.2-14.7)
--- NOTE | 2022-12-27 12:50 | Diagnostic Imaging Report ---
INDICATION: Chest pain. COMPARISON: 12/23/2022. FINDINGS: The heart is enlarged but no vascular congestion, edema, or pneumonia. No effusion. No pneumothorax. IMPRESSION: No acute-appearing abnormality, however upper limits heart size is noted. Dictated by: Dictated on workstation # [id number]
[2022-12-27 12:55] LABS: ALANINE AMINOTRANSFERASE 7 U/L (0-55); ALBUMIN 3.8 GM/DL (3.2-4.5); ALKALINE PHOSPHATASE 88 U/L (40-136); BILIRUBIN,TOTAL 0.5 MG/DL (0.1-1.0); BUN/CREATININE RATIO 19; CALCIUM 8.8 MG/DL (8.5-10.1); CARBON DIOXIDE 28 MMOL/L (21-32); CHLORIDE 103 MMOL/L (98-107); CREATININE SERUM 1.04 MG/DL (0.60-1.30); GFR ESTIMATED 53; GLUCOSE 137 MG/DL (70-105); MAGNESIUM 1.6 MG/DL (1.6-2.4); SODIUM 138 MMOL/L (135-145); TOTAL PROTEIN 6.4 GM/DL (6.4-8.2)
--- NOTE | 2022-12-27 12:56 | ED Chest Pain ---
General Chief Complaint: Respiratory Problems Stated Complaint: DIFFICULTY BREATHING Nursing Triage Note: PT ARRIVES TO ER VIA W/C FROM HOME. PT C/O WORSENING SOB, CONGESTION, COUGHING AND FATIGUE. RECENTLY SEEN IN ER FOR SAME S/S. Source: patient, old records Exam Limitations: no limitations History of Present Illness Date Seen by Provider: Dec 27, 2022 Time Seen by Provider: 13:03 Initial Comments This 82-year-old woman with COPD presents to the emergency room with worsening shortness of breath and wheezing. She was seen in the emergency room 4 days ago and treated for COPD exacerbation. She finished a short course of steroids. Symptoms have worsened since then. She has very tight wheezing on exam. She wears 3 L by nasal cannula at home. Oxygen saturation shortly after assessment dropped as low as 88%. Patient denies new cough or fever. She does complain of some chest heaviness. Stress test from earlier this year revealed no ischemic changes and an EF of 75%. Flu and COVID tests were negative on her last admission. Allergies and Home Medications Allergies Coded Allergies: sulfamethoxazole (Verified Allergy, Intermediate, Vomiting, 09/09/19) trimethoprim (Verified Allergy, Intermediate, Vomiting, 09/09/19) erythromycin base (Verified Allergy, Unknown, 09/09/19) quinine (Verified Allergy, Unknown, 09/09/19) cephalexin (Verified Adverse Reaction, Severe, CONFUSION, DIZZINESS, 03/04/20) Patient Home Medication List Home Medication List Reviewed: Yes Albuterol Sulfate (Albuterol Sulfate) 2.5 Mg/3 Ml (0.083 %) Vial.neb, 2.5 MG NEB Q4H PRN for SHORTNESS OF BREATH, (Reported) Entered as Reported by: PATRICK SHAW on 12/28/22 161 Last Action: Reviewed Albuterol Sulfate (Ventolin Hfa) 90 Mcg Hfa.aer.ad, 2 PUFF INH Q6H PRN for SHORTNESS OF BREATH, (Reported) Entered as Reported by: PATRICK SHAW on 12/28/22 161 Last Action: Reviewed Biotin (Biotin) 10,000 Mcg Capsule, 10,000 MCG PO DAILY, (Reported) Entered as Reported by: PATRICK SHAW on 01/14/22 1621 Last Action: Reviewed Cholecalciferol (Vitamin D3) (Vitamin D3) 25 Mcg (1000 Unit) Capsule, 25 MCG PO DAILY, (Reported) Entered as Reported by: PATRICK SHAW on 01/14/22 162 Last Action: Reviewed Clopidogrel Bisulfate (Clopidogrel) 75 Mg Tablet, 75 MG PO DAILY, (Reported) Entered as Reported by: PATRICK SHAW on 01/14/22 162 Last Action: Reviewed Cranberry Fruit (Cranberry) 450 Mg Tablet, 450 MG PO DAILY, (Reported) Entered as Reported by: PATRICK SHAW on 01/14/22 162 Last Action: Reviewed Cyclosporine (Restasis) 0.05 % [place], 1 DROP OU BID, (Reported) Entered as Reported by: PATRICK SHAW on 01/14/22 162 Last Action: Reviewed Diphenoxylate HCl/Atropine (Diphenoxylate-Atrop 2.5-0.025) 1 Each Tablet, 1 EACH PO QID PRN for LOOSE STOOLS, (Reported) Entered as Reported by: TOMAS HAYS on 09/07/20 1451 Last Action: Continued Duloxetine HCl (Duloxetine HCl) 60 Mg Capsule.dr, 60 MG PO DAILY, (Reported) Entered as Reported by: TOMAS HAYS on 09/07/20 1448 Last Action: Reviewed Ezetimibe (Ezetimibe) 10 Mg Tablet, 10 MG PO DAILY, (Reported) Entered as Reported by: TARAN CARPENTER on 07/02/19 1122 Last Action: Reviewed Fluticasone Propionate (Flonase Allergy Relief) 50 Mcg/Actuation [place].susp, 1 SPRAY NS BID PRN for CONGESTION, (Reported) Entered as Reported by: PATRICK SHAW on 12/28/22 1619 Last Action: Reviewed Furosemide (Furosemide) 20 Mg Tablet, 20 MG PO DAILY, (Reported) Entered as Reported by: PATRICK SHAW on 06/18/20 1506 Last Action: Reviewed Hydrocodone/Acetaminophen (Hydrocodone-Acetamin 7.5-325) 7.5 Mg-325 Mg Tablet, 1 EA PO TID PRN for PAIN-MODERATE (5-7), (Reported) Entered as Reported by: PATRICK SHAW on 12/28/22 1616 Last Action: Reviewed Ipratropium/Albuterol Sulfate (Iprat-Albut 0.5-3(2.5) mg/3 ml) 0.5 Mg-3 Mg (2.5 Mg Base)/3 Ml Ampul.neb, 3 ML IH Q4H PRN for SHORTNESS OF BREATH Prescribed by: IKE FRANK on 12/29/22 1238 Levothyroxine Sodium (Levothyroxine Sodium) 112 Mcg Tablet, 112 MCG PO DAILY, (Reported) Entered as Reported by: PATRICK SHAW on 07/09/21 1510 Last Action: Reviewed Lorazepam (Ativan) 1 Mg Tablet, 1 MG PO BID PRN for ANXIETY, (Reported) Entered as Reported by: PATRICK SHAW on 12/28/22 161 Last Action: Reviewed Meclizine HCl (Meclizine HCl) 25 Mg Tablet, 25 MG PO Q8H PRN for DIZZINESS, (Reported) Entered as Reported by: PATRICK SHAW on 12/28/221615 Last Action: Reviewed Metoprolol Succinate (Metoprolol Succinate) 50 Mg Tab.er.24h, 50 MG PO DAILY, (Reported) Entered as Reported by: PATRICK SHAW on 05/13/19 0828 Last Action: Reviewed Montelukast Sodium (Montelukast Sodium) 10 Mg Tablet, 10 MG PO HS, (Reported) Entered as Reported by: TOMAS HAYS on 09/07/201447 Last Action: Reviewed Nitrofurantoin Macrocrystal (Nitrofurantoin) 100 Mg Capsule, 100 MG PO DAILY, (Reported) Entered as Reported by: PATRICK SHAW on 01/14/22 1621 Last Action: Reviewed Pantoprazole Sodium (Pantoprazole Sodium) 40 Mg Tablet.dr, 40 MG PO DAILY, (Rep orted) Entered as Reported by: TOMAS HAYS on 09/07/201447 Last Action: Reviewed Prednisone (Prednisone) 10 Mg Tab.ds.pk, 10 MG PO DAILY Prescribed by: IKE FRANK on 12/29/22 1238 Pregabalin (Pregabalin) 150 Mg Capsule, 150 MG PO BID, (Reported) Entered as Reported by: TOMAS HAYS on 09/07/201447 Last Action: Reviewed Ropinirole HCl (Ropinirole HCl) 4 Mg Tablet, 8 MG PO HS, (Reported) Entered as Reported by: TOMAS HAYS on 09/07/201447 Last Action: Reviewed Solifenacin Succinate (Solifenacin Succinate) 5 Mg Tablet, 5 MG PO DAILY, (Reported) Entered as Reported by: PATRICK SHAW on 01/14/22 162 Last Action: Reviewed Temazepam (Temazepam) 15 Mg Capsule, 15 MG PO HS, (Reported) Entered as Reported by: TOMAS HAYS on 09/07/20 1448 Last Action: Reviewed Discontinued Medications Ascorbate Calcium (Vitamin C) 500 Mg Tablet, 500 MG PO DAILY, (Reported) Discontinued Reason: No Longer Taking Entered as Reported by: PATRICK SHAW on 01/14/22 162 Last Action: Discontinued Cefdinir (Cefdinir) 300 Mg Capsule, 300 MG PO BID Discontinued Reason: No Longer Taking Prescribed by: KARISSA MOSQUEDA on 07/04/22 1453 Last Action: Discontinued Clonazepam (Clonazepam) 1 Mg Tablet, 1 MG PO BID, (Reported) Discontinued Reason: No Longer Taking Entered as Reported by: PATRICK SHAW on 07/09/21 1510 Last Action: Discontinued Dicyclomine HCl (Dicyclomine HCl) 10 Mg Capsule, 10 MG PO QID, (Reported) Discontinued Reason: No Longer Taking Entered as Reported by: PATRICK SHAW on 01/14/22 162 Last Action: Discontinued Mirabegron (Myrbetriq) 50 Mg Tab.er.24h, 50 MG PO DAILY, (Reported) Discontinued Reason: No Longer Taking Entered as Reported by: TOMAS HAYS on 09/07/20 1448 Last Action: Discontinued Ondansetron (Ondansetron Odt) 4 Mg Tab.rapdis, 4 MG SL Q4H PRN for NAUSEA/VOMITING Discontinued Reason: No Longer Taking Prescribed by: KARISSA MOSQUEDA on 07/04/22 1434 Last Action: Discontinued Ondansetron HCl (Ondansetron HCl) 4 Mg Tablet, 4 MG PO Q6H PRN for NAUSEA/VOMITING-1ST LINE, (Reported) Discontinued Reason: Duplicate Order Entered as Reported by: PATRICK SHAW on 01/14/221620 Last Action: Discontinued Oxycodone HCl (Oxycodone HCl) 10 Mg Tablet, 10 MG PO Q4H PRN for PAIN-SEVERE (8- 10), (Reported) Discontinued Reason: No Longer Taking Entered as Reported by: PATRICK SHAW on 07/09/21 1510 Last Action: Discontinued Prednisone (Prednisone) 20 Mg Tab, 40 MG PO DAILY Discontinued Reason: No Longer Taking Prescribed by: ISABELLA FARIAS on 12/23/22 1210 Last Action: Discontinued [Potassium 20MEQ/15ML] 20MEQ LIQUID, 7.5 ML PO DAILY, (Reported) Discontinued Reason: No Longer Taking Entered as Reported by: PATRICK SHAW on 01/14/22 1621 Last Action: Discontinued Review of Systems Review of Systems Constitutional: no symptoms reported EENTM: No Symptoms Reported Respiratory: See HPI Cardiovascular: See HPI Gastrointestinal: No Symptoms Reported Genitourinary: No Symptoms Reported Musculoskeletal: no symptoms reported Skin: no symptoms reported Psychiatric/Neurological: No Symptoms Reported Endocrine: No Symptoms Reported Hematologic/Lymphatic: No Symptoms Reported Past Rkqfpmr-Asppei-Dsicih Hx Patient Social History Tobacco Use?: No Substance use?: No Alcohol Use?: No Immunizations Up To Date Tetanus Booster (TDap): Unknown PED Vaccines UTD: No Influenza Vaccine Up-to-Date: Yes; Up-to-Date First/Initial COVID19 Vaccinat: Received but unknown date. Second COVID19 Vaccination Javier: Received but unknown date. Third COVID19 Vaccination Date: Received but unknown date. Seasonal Allergies Seasonal Allergies: Yes Past Medical History Surgery/Hospitalization HX: wears home O2 at 3 L prn and at hs. hx of hypertension Surgeries: Yes Abdominal, Bowel Surgery, Hysterectomy, Tonsillectomy Respiratory: Yes Pulmonary Embolism, Sleep Apnea, COPD (uses O2 by NC at 3 Lpm) Currently Using CPAP: No Currently Using BIPAP: No Cardiac: Yes Coronary Artery Disease, Heart Attack Neurological: No Vertigo 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 Disorders: No [employer] History: Hysterectomy, Menopausal Sexually Transmitted Disease: No HIV/AIDS: No Genitourinary: Yes Bladder Infection Gastrointestinal: Yes Abdominal Hernia, Gastroesophageal Reflux, Obstructive Bowel, Polyps, Esophagitis, Hiatal Hernia Musculoskeletal: Yes Degenerate Disk Disease, Arthritis, Chronic Back Pain, Fractures Endocrine: No Hypothyroidsim HEENT: Yes Cataract Loss of Vision: Bilateral Hearing Impairment: Hard of Hearing Cancer: Yes Colon Did You Recieve Any Treatments: Yes What Type of Treatment Did You: Surgical Intervention Psychosocial: Yes Anxiety Integumentary: No Blood Disorders: Yes (ANEMIA) Adverse Reaction/Blood Tranf: No (HAS HAD BLOOD WITH NO REACTION) Family Medical History Family history: Hypertension G8 BROTHER Myocardial infarction 19 MOTHER G8 BROTHER Heart Disease, Hypertension SOCIAL HISTORY: -ETOH--OCCASIONAL USE IN PAST -DRUGS--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 GUZMAN IN [place] -RIGHT HEMICOLECTOMY/SMALL BOWEL RESECTION/LYSIS OF ADHESIONS/MULTIPLE FOREIGN BODIES REMOVED ( CORKSCREW TACKS FROM PREVIOUS HERNIA MESH ) 09/12/[address] NELSON -CYSTOSCOPY WITH BOTOX INJECTIONS 07/09/[address] MCDONALD. -MULTIPLE HERNIA REPAIRS WITH MESH -MULTIPLE EGD'S/COLONOSCOPIES/DILATIONS OF ESOPHAGEAL STRICTURES -CARDIAC CATHS--STENTS X 2 -KYPHOPLASTIES -APPENDECTOMY -RIGHT HIP FRACTURE ORIF WITH PIN IN HIP AND HEATHER IN [place] 03/2016 -HYSTERECTOMY/BILATERAL SALPINGO-OOPHORECTOMY -TONSILLECTOMY ADDITIONAL PAST MEDICAL HISTORY: -HAS 24 HOUR IN-HOME CARETAKERS -[place]QU[place]--USES A WALKER -RESTLESS LEG SYNDROME -RIGHT PALUMBO'S CYST -MULTIPLE COMPRESSION FRACTURES WITH KYPHOPLASTIES -CHRONIC DYSPHAGIA -CHRONIC ABDOMINAL PAIN COMPLAINTS -HAS Physical Exam Vital Signs Vital Signs - First Documented 12/27/22 12:02 Temp 36.6 Pulse 59 Resp 52 B/P (MAP) 142/86 (104) Pulse Ox 96 O2 Delivery Room Air O2 Flow Rate 3.00 Capillary Refill : Height, Weight, BMI Height: 5'2.00" Weight: 163lbs. 0.0oz. 73.650736ez; 37.00 BMI Method:Stated General Appearance: WD/WN, Anxious, Mild Distress HEENT: Normal ENT Inspection, Other (MMM) Neck: Normal Inspection; No JVD Respiratory: No Crackles; Decreased Breath Sounds, Wheezing Cardiovascular: Regular Rate, Rhythm, No Edema, No Murmur Gastrointestinal: Non Tender, Soft Extremity: Normal Inspection, No Pedal Edema Neurologic/Psychiatric: Alert, Oriented x3, No Motor/Sensory Deficits, sizer machine II-X II Norm as Tested, Other (Mildly anxious) Skin: Normal Color, Warm/Dry Progress/Results/Core Measures Results/Orders Lab Results Laboratory Tests Test 12/27/22 12:28 Range/Units White Blood Count 11.3 H 4.3-11.0 10^3/uL Red Blood Count 4.29 3.80-5.11 10^6/uL Hemoglobin 12.6 11.5-16.0 g/dL Hematocrit 40 35-52 % Mean Corpuscular Volume 92 80-99 fL Mean Corpuscular Hemoglobin 29 25-34 pg Mean Corpuscular Hemoglobin Concent 32 32-36 g/dL Red Cell Distribution Width 16.2 H 10.0-14.5 % Platelet Count 267 130-400 10^3/uL Mean Platelet Volume 10.6 9.0-12.2 fL Immature Granulocyte % (Auto) 4 % Neutrophils (%) (Auto) 70 42-75 % Lymphocytes (%) (Auto) 19 12-44 % Monocytes (%) (Auto) 4 0-12 % Eosinophils (%) (Auto) 2 0-10 % Basophils (%) (Auto) 1 0-10 % Neutrophils # (Auto) 7.9 H 1.8-7.8 10^3/uL Lymphocytes # (Auto) 2.2 1.0-4.0 10^3/uL Monocytes # (Auto) 0.4 0.0-1.0 10^3/uL Eosinophils # (Auto) 0.3 0.0-0.3 10^3/uL Basophils # (Auto) 0.1 0.0-0.1 10^3/uL Immature Granulocyte # (Auto) 0.5 H 0.0-0.1 10^3/uL Prothrombin Time 13.4 12.2-14.7 SEC INR Comment 1.0 0.8-1.4 Activated Partial Thromboplast Time 24 24-35 SEC D-Dimer 0.95 H 0.00-0.49 UG/ML Sodium Level 138 135-145 MMOL/L Potassium Level 2.6 L 3.6-5.0 MMOL/L Chloride Level 103 98-107 MMOL/L Carbon Dioxide Level 28 21-32 MMOL/L Anion Gap 7 5-14 MMOL/L Blood Urea Nitrogen 20 H 7-18 MG/DL Creatinine 1.04 0.60-1.30 MG/DL Estimat Glomerular Filtration Rate 53 BUN/Creatinine Ratio 19 Glucose Level 137 H 70-105 MG/DL Calcium Level 8.8 8.5-10.1 MG/DL Corrected Calcium 9.0 8.5-10.1 MG/DL Magnesium Level 1.6 1.6-2.4 MG/DL Total Bilirubin 0.5 0.1-1.0 MG/DL Aspartate Amino Transf (AST/SGOT) 7 5-34 U/L Alanine Aminotransferase (ALT/SGPT) 7 0-55 U/L Alkaline Phosphatase 88 40-136 U/L Myoglobin 28.4 10.0-92.0 NG/ML Troponin I < 0.028 <0.028 NG/ML C-Reactive Protein High Sensitivity 0.64 H 0.00-0.50 MG/DL B-Type Natriuretic Peptide 142.2 H <100.0 PG/ML Total Protein 6.4 6.4-8.2 GM/DL Albumin 3.8 3.2-4.5 GM/DL My Orders Orders - RADHA PAREDES MD Cbc And Automated Diff (12/27/22 12:07) Magnesium (12/27/22 12:07) Chest 1 View, Ap/Pa Only (12/27/22 12:07) Ekg Tracing (12/27/22 12:07) Comprehensive Metabolic Panel (12/27/22 12:07) Myoglobin Serum (12/27/22 12:07) Protime With Inr (12/27/22 12:07) Partial Thromboplastin Time (12/27/22 12:07) O2 (12/27/22 12:07) Monitor-Rhythm Ecg Trace Only (12/27/22 12:07) Lipid Panel (12/28/22 06:00) Ed Iv/Invasive Line Start (12/27/22 12:07) Bnp [place] (12/27/22 12:07) Troponin I [place] (12/27/22 12:07) Hs C Reactive Protein (12/27/22 12:09) Ipratropium/Albuterol Inh Soln (Ipratrop (12/27/22 12:15) Svn Small Volume Nebulizer (12/27/22 12:09) Fentanyl Injection (Fentanyl Injection (12/27/22 12:45) Methylprednisolone Sod Succ (Methylpredn (12/27/22 13:00) Fibrin Degradation Products (12/27/22 12:56) Ct Angio Chest W (R/O Pe) (12/27/22 14:02) Iohexol Injection (Omnipaque 350 Mg/Ml 1 (12/27/22 14:15) Received Contrast (Hold Metformin- Contr (12/27/22 14:15) Ns (Ivpb) 100 Ml (Sodium Chloride 0.9% 1 (12/27/22 14:15) Potassium Cl 10meq/50ml Ivpb (Kcl 10 Meq (12/27/22 15:45) Ns (Ivpb) 250 Ml (Sodium Chloride 0.9% 2 (12/27/22 15:45) Code/Resuscitation (12/27/22 15:47) Ed Admission (Communication) (12/27/22 15:47) Ipratropium/Albuterol Inh Soln (Ipratrop (12/27/22 16:00) Svn Small Volume Nebulizer (12/27/22 15:47) Lorazepam Tablet (Lorazepam Tablet) (12/27/22 15:49) Medications Given in ED Vital Signs/I&O 12/27/22 12/27/22 12/27/22 12/27/22 12:02 12:02 12:49 16:05 Temp 36.6 Pulse 59 Resp 52 B/P (MAP) 142/86 (104) Pulse Ox 96 91 97 O2 Delivery Room Air Nasal Cannula Room Air Nasal Cannula O2 Flow Rate 3.00 12/27/22 16:46 Pulse 61 Resp 16 B/P (MAP) 146/74 Pulse Ox 96 O2 Delivery Nasal Cannula O2 Flow Rate 3.00 Blood Pressure Mean: 104 Progress Progress Note : Progress Note Patient was promptly interviewed and examined. She was treated with DuoNeb and Solu-Medrol 125 mg IV. A second DuoNeb treatment was administered prior to admission. Labs were obtained and interpreted by me. There were no clinically relevant abnormalities on CBC. CMP was notable for significant hypokalemia with potassium of 2.6 and slight hyperglycemia with glucose of 137. Troponin was negative. BNP was slightly elevated. D-dimer was slightly elevated and was followed by CT angiogram. CT angiogram report was reviewed. No evidence of pulmonary embolus was identified. No other acute pathology requiring immediate interventions was identified on imaging. ECG was interpreted by me as below. No ischemia or arrhythmia was noted on the EKG. Patient was admitted for further treatment of COPD exacerbation as she has failed outpatient treatment. On reexamination she was still quite wheezy after DuoNeb treatment. I discussed CODE STATUS with the patient, and she would like to have a DNR order. Case was discussed with Dr. Frank, hospitalist on duty, who excepted the admission. Initial ECG Impression Date: Dec 27, 2022 Initial ECG Impression Time: 12:14 Initial ECG Rate: 54 Initial ECG Rhythm: Normal Sinus Initial ECG Intervals: Normal Initial ECG Impression: Normal Comment Sinus rhythm with no ST elevation or depression. Nonspecific ST changes. Borderline bradycardia. No axis deviation. Diagnostic Imaging Diagonstic Imaging: Xray Plain Films/CT/US/NM/MRI: chest Comments NAME: [facility] REC#: [id number] PT STATUS: REG ER : 1940 PHYSICIAN: RADHA PAREDES MD ADMIT DATE: 12/27/22/ER Signed Date of Exam:12/27/22 CHEST 1 VIEW, AP/PA ONLY INDICATION: Chest pain. COMPARISON: 12/23/2022. FINDINGS: The heart is enlarged but no vascular congestion, edema, or pneumonia. No effusion. No pneumothorax. IMPRESSION: No acute-appearing abnormality, however upper limits heart size is noted. Dictated by: Dictated on workstation # [id number] Dict: 12/27/22 1239 Trans: 12/27/22 144 AS6 [id number] Interpreted by: REBECCA BERNSTEIN Electronically signed by: REBECCA BERNSTEIN 12/27/22 1447 Diagonstic Imaging: CT Plain Films/CT/US/NM/MRI: chest Comments NAME: [facility] REC#: [id number] PT STATUS: ADM Luana : 1940 PHYSICIAN: RADHA PAREDES MD ADMIT DATE: 12/27/22/4TH Signed Date of Exam:12/27/22 CT ANGIO CHEST W (R/O PE) Clinical indication: Patient with worsening shortness of breath, congestion, coughing and fatigue. Patient with elevated D-dimer. Patient with history of colon cancer. Exam: CT angiogram of the chest performed with 85 cc Omnipaque 350 IV contrast. Coronal and oblique MIP images of the vasculature were created to better evaluate anatomy. Auto Exposure Controls were utilized during the CT exam to meet ALARA standards for radiation dose reduction. Comparison: CT scan of the chest, abdomen, and pelvis with contrast dated 11/29/2022.. Findings: There is no thoracic aortic aneurysm or dissection. There is no evidence of pulmonary embolism. There is interval progression of mild atelectasis involving both lung bases and middle lung base region. There is mild atelectasis along the right major fissure region. There is no lung infiltrate seen. There is interval development of a minimal sized right pleural effusion. There is no pneumothorax. There is no significant mediastinal, hilar, or axillary lymphadenopathy. Visualized upper abdominal structures show no significant abnormality. There is a fat-containing anterior abdominal wall which is above the level of the umbilicus, with a mouth which measures 6.6 cm in transverse dimensions and 3.4 cm in craniocaudal dimensions. There are multilevel chronic compression fracture deformities involving the T6, T8, T9, T10, T11, T12, and L1 vertebra. There are kyphoplasty changes involving the T8, T10, and T12 compression fracture deformities. IMPRESSION: 1: There is no evidence pulmonary embolism. There is no thoracic aortic aneurysm or dissection. 2: There is interval progression of atelectasis involving both lungs. 3: There is interval development of a minimal sized right-sided pleural effusion. 4: There is a fat-containing upper midline anterior abdominal wall hernia. Dictated by: Dictated on workstation # [id number] Dict: 12/27/22 1441 Trans: 12/27/221848 [facility] [id number] Interpreted by: LYNDON SHERIFF MD Electronically signed by: LYNDON SHERIFF MD 12/27/221848 Departure Communication (Admissions) Time/Spoke to Admitting Phy: 15:40 Dr. Frank Impression Primary Impression: COPD exacerbation Additional Impressions: Hypokalemia Chest pain Qualified Codes: R07.9 - Chest pain, unspecified Anxiety History of pulmonary embolus (PE) Disposition: HOME, SELF-CARE Condition: Stable Admissions Decision to Admit Reason: Admit from ER (General) Decision to Admit/Date: Dec 27, 2022 Time/Decision to Admit Time: 15:40 Departure-Patient Inst. Referrals: JULISA COURTNEY DO (PCP/Family) Primary Care Physician Scripts Ipratropium/Albuterol Sulfate (Iprat-Albut 0.5-3(2.5) mg/3 ml) 0.5 Mg-3 Mg (2.5 Mg Base)/3 Ml Ampul.neb 3 ML IH Q4H PRN for SHORTNESS OF BREATH for 7 Days, #2 INHALER Prov: IKE FRANK MD 12/29/22 Prednisone (Prednisone) 10 Mg Tab.ds.pk 10 MG PO DAILY, #42 EA Take 6 tabs(60mg)daily,decrease by 1 tab(10mg)every other day. Prov: IKE FRANK MD 12/29/22 Copy Copies To 1: JULISA COURTNEY JOSHUA T MD Dec 27, 2022 12:56
[2022-12-27] MEDS ORDERED: methylPREDNISolone INJ 125 MG VIAL IVP ONE (13:00)
[2022-12-27 13:18] LABS: POTASSIUM 2.6 MMOL/L (3.6-5.0)
[2022-12-27] MEDS ORDERED: NS 100 ML (IVPB) BAG IV ONE (14:15)
[2022-12-27] MEDS ORDERED: IOHEXOL 350 MG/ML 100 ML (OMNIPAQUE 350) VIAL IV ONE (14:15)
[2022-12-27] MEDS ORDERED: HOLD METFORMIN - RECEIVED CONTRAST 20 ML VIAL IV SCH (14:15)
--- NOTE | 2022-12-27 14:55 | Diagnostic Imaging Report ---
Clinical indication: Patient with worsening shortness of breath, congestion, coughing and fatigue. Patient with elevated D-dimer. Patient with history of colon cancer. Exam: CT angiogram of the chest performed with 85 cc Omnipaque 350 IV contrast. Coronal and oblique MIP images of the vasculature were created to better evaluate anatomy. Auto Exposure Controls were utilized during the CT exam to meet ALARA standards for radiation dose reduction. Comparison: CT scan of the chest, abdomen, and pelvis with contrast dated 11/29/2022.. Findings: There is no thoracic aortic aneurysm or dissection. There is no evidence of pulmonary embolism. There is interval progression of mild atelectasis involving both lung bases and middle lung base region. There is mild atelectasis along the right major fissure region. There is no lung infiltrate seen. There is interval development of a minimal sized right pleural effusion. There is no pneumothorax. There is no significant mediastinal, hilar, or axillary lymphadenopathy. Visualized upper abdominal structures show no significant abnormality. There is a fat-containing anterior abdominal wall which is above the level of the umbilicus, with a mouth which measures 6.6 cm in transverse dimensions and 3.4 cm in craniocaudal dimensions. There are multilevel chronic compression fracture deformities involving the T6, T8, T9, T10, T11, T12, and L1 vertebra. There are kyphoplasty changes involving the T8, T10, and T12 compression fracture deformities. IMPRESSION: 1: There is no evidence pulmonary embolism. There is no thoracic aortic aneurysm or dissection. 2: There is interval progression of atelectasis involving both lungs. 3: There is interval development of a minimal sized right-sided pleural effusion. 4: There is a fat-containing upper midline anterior abdominal wall hernia. Dictated by: Dictated on workstation # [id number]
[2022-12-27] MEDS ORDERED: NS (IVPB) 250 ML 250 ML IV ONE (15:45)
[2022-12-27] MEDS ORDERED: POTASSIUM CL 10MEQ/50ML IVPB 50 ML IV ONE (15:45)
[2022-12-27] MEDS ORDERED: LORazepam 0.5 MG TABLET PO STA (15:49)
[2022-12-27 17:25] VITALS: BP 162/72
[2022-12-27] MEDS ORDERED: ACETAMINOPHEN 325 MG TABLET PO PRN (17:30)
[2022-12-27] MEDS ORDERED: CALCIUM CARBONATE 500 MG CHEW TABLET PO PRN (17:30)
[2022-12-27] MEDS ORDERED: MELATONIN 3 MG TABLET PO PRN (17:30)
[2022-12-27] MEDS ORDERED: ANTACID SUSPENSION 30 ML UDC PO PRN (17:30)
[2022-12-27] MEDS ORDERED: ONDANSETRON INJECTION 4 MG/2 ML (SDV) IV PRN (17:30)
[2022-12-27] MEDS ORDERED: MILK OF MAGNESIA 400 MG/5 ML 30 ML UDC PO PRN (17:30)
[2022-12-27] MEDS ORDERED: ARTIFICIAL TEARS Ophth solution 0.4 ML UNIT DOSE OU PRN (17:30)
[2022-12-27] MEDS ORDERED: ONDANSETRON 4 MG ORAL DISSOLVE TABLET PO PRN (17:30)
[2022-12-27] MEDS ORDERED: POTASSIUM CL 10MEQ/50ML IVPB 50 ML IV SCH (17:30)
[2022-12-27] MEDS ORDERED: BISACODYL 10 MG SUPPOSITORY PR PRN (17:30)
[2022-12-27] MEDS ORDERED: NS IV 500 ML 500 ML IV PRN (17:30)
[2022-12-27] MEDS ORDERED: LACTULOSE SYRUP 10GM/15ML 30ML UDC PO PRN (17:30)
[2022-12-27] MEDS ORDERED: RT-Ipratropium/Albuterol NEB 3 ML VIAL INH PRN (18:00)
[2022-12-27] MEDS ORDERED: POTASSIUM CHLORIDE 20 MEQ TABLET PO NR (18:00)
[2022-12-27] MEDS: MAGNESIUM 1 GM/100 ML IVPB 100 ML IV SCH ×2 (18:12→19:32)
[2022-12-27] MEDS: methylPREDNISolone INJ 40 MG/ML VIAL IV SCH ×2 (18:12→23:25)
[2022-12-27] MEDS ORDERED: TEMAZEPAM 15 MG (RESTORIL) CAP PO PRN (18:15)
[2022-12-27] MEDS: HYDROcodone/ACETAMINOPHEN 5 MG/325 MG TABLET PO PRN ×2 (18:24→23:28)
[2022-12-27] MEDS: RT-Ipratropium/Albuterol NEB 3 ML VIAL INH SCH (19:59)
[2022-12-27] MEDS: MONTELUKAST 10 MG TABLET PO SCH (20:00)
[2022-12-27] MEDS: DOCUSATE SODIUM 100 MG CAPSULE PO SCH (20:00)
[2022-12-27] MEDS: PREGABALIN 150 MG CAPSULE PO SCH (20:00)
[2022-12-27] MEDS: rOPINIRole 1 MG TABLET PO SCH (20:00)
[2022-12-27] MEDS: SENNOSIDES 8.6 MG TABLET PO SCH (20:01)
[2022-12-27 20:11] VITALS: BP 133/67
[2022-12-27] MEDS: LORazepam 1 MG TABLET PO PRN (21:15)
[2022-12-27] MEDS: inSUlin ASPART 1 UNIT/0.01 ML (PER UNIT) SC SCH (21:53)
[2022-12-27 23:37] VITALS: BP 126/62
[2022-12-28] MEDS: RT-Ipratropium/Albuterol NEB 3 ML VIAL INH SCH ×4 (02:46→22:02)
[2022-12-28 03:32] VITALS: BP 130/60
[2022-12-28 05:28] LABS: BASOPHILS % (AUTO) 0 % (0-10); EOSINOPHILS % (AUTO) 0 % (0-10); HEMATOCRIT 41 % (35-52); HEMOGLOBIN 12.9 g/dL (11.5-16.0); LYMPHOCYTES # (AUTO) 0.9 10^3/uL (1.0-4.0); LYMPHOCYTES % (AUTO) 8 % (12-44); MEAN CORPUSCULAR HEMOGLOBIN 29 pg (25-34); MEAN CORPUSCULAR HGB CONC 32 g/dL (32-36); MEAN CORPUSCULAR VOLUME 93 fL (80-99); MEAN PLATELET VOLUME 10.8 fL (9.0-12.2); MONOCYTES # (AUTO) 0.1 10^3/uL (0.0-1.0); MONOCYTES % (AUTO) 1 % (0-12); NEUTROPHILS # (AUTO) 9.6 10^3/uL (1.8-7.8); NEUTROPHILS % (AUTO) 85 % (42-75); PLATELET COUNT 268 10^3/uL (130-400); WHITE BLOOD COUNT 11.3 10^3/uL (4.3-11.0)
[2022-12-28 05:42] LABS: CALCIUM 8.5 MG/DL (8.5-10.1)
[2022-12-28] MEDS: POTASSIUM CHLORIDE 20 MEQ TABLET PO SCH (05:44)
[2022-12-28] MEDS: POTASSIUM BICARB 20 MEQ effervescent TABLET PO SCH (05:44)
[2022-12-28] MEDS: POTASSIUM CL 10MEQ/50ML IVPB 50 ML IV SCH (05:44)
[2022-12-28 05:46] LABS: CREATININE SERUM 1.08 MG/DL (0.60-1.30)
[2022-12-28 05:48] LABS: BAND NEUTROPHILS 2 %; LYMPHOCYTES % (MANUAL) 7 %; NEUTROPHILS % (MANUAL) 87 %
[2022-12-28 05:49] LABS: MAGNESIUM 2.3 MG/DL (1.6-2.4); METAMYELOCYTES % 3 %; REACTIVE LYMPHOCYTES 1 %
[2022-12-28] MEDS: MAGNESIUM 1 GM/100 ML IVPB 100 ML IV SCH (05:50)
[2022-12-28] MEDS: inSUlin ASPART 1 UNIT/0.01 ML (PER UNIT) SC SCH ×4 (06:12→21:19)
[2022-12-28] MEDS: methylPREDNISolone INJ 40 MG/ML VIAL IV SCH ×4 (06:12→23:57)
[2022-12-28] MEDS: LEVOTHYROXINE 112 MCG TABLET PO SCH (06:12)
[2022-12-28 07:17] VITALS: BP 161/73
[2022-12-28] MEDS: DOCUSATE SODIUM 100 MG CAPSULE PO SCH ×2 (08:51→21:19)
[2022-12-28] MEDS: NITROFURANTOIN Monohydrate/Macro 100 MG CAPSULE PO SCH (08:51)
[2022-12-28] MEDS: PANTOPRAZOLE 40 MG TABLET PO SCH (08:52)
[2022-12-28] MEDS: FUROSEMIDE 20 MG TABLET PO SCH (08:52)
[2022-12-28] MEDS: SENNOSIDES 8.6 MG TABLET PO SCH ×2 (08:52→21:18)
[2022-12-28] MEDS: DULoxetine 30 MG CAPSULE PO SCH (08:52)
[2022-12-28] MEDS: PREGABALIN 150 MG CAPSULE PO SCH ×2 (08:52→21:19)
--- NOTE | 2022-12-28 11:20 | Physical Therapy Evaluation ---
PT Evaluation-General Medical Diagnosis Admission Date Dec 27, 2022 at 17:21 Medical Diagnosis: COPD Exacerbation Onset Date: Dec 27, 2022 Therapy Diagnosis Therapy Diagnosis: Gait deficit, Strength defici Height/Weight Height (Feet): 5 Height (Inches): 2.00 Weight (Pounds): 163 Weight (Ounces): 0.0 Precautions Precautions/Isolations: Fall Prevention, Standard Precautions Weight Bear Status Right Lower Extremity: Right Full Weight Bearing Left Lower Extremity: Left Full Weight Bearing Referral Physician: Dr. Galvez Reason for Referral: Evaluation/Treatment Medical History Pertinent Medical History: Arthritis, CAD, COPD, GERD, HTN, Hypothroidism Reviewed History: Yes Social History Home: Single Level Current Living Status: Alone Entry Into Home: Level Entry Patient reports she has 24 hour caregivers. Prior Prior Level of Function SCALE: Activities may be completed with or without assistive devices. 6-Anvugfgmlx-lzmpimi completes the activity by him/herself with no assistance f rom a helper. 5-Set-up or Clean-up Assistance-helper sets up or cleans up; patient completes activity. [place] assists only prior to or following the activity. 4-Supervision or Touching Assistance-helper provides verbal cues and/or touching/steadying and/or contact guard assistance as patient completes activity. Assistance may be provided throughout the activity or intermittently. 3-Partial/Moderate Assistance-helper does LESS THAN HALF the effort. [place] lifts, holds or supports trunk or limbs, but provides less than half the effort. 2-Substantial/Maximal Assistance-helper does MORE THAN HALF the effort. [place] lifts or holds trunk or limbs and provides more than half the effort. 8-Qijraolpz-aalsnl does ALL the effort. Patient does none of the effort to complete the activity. Or, the assistance of 2 or more helpers is required for the patient to complete the activity. If activity was not attempted, code reason: 7-Patient Refused. 9-Not Applicable-not attempted and the patient did not perform the activity before the current illness, exacerbation or injury. 10-Not Attempted due to Environmental Limitations-(lack of equipment, weather restraints, etc.). 88-Not Attempted due to Medical Conditions or Safety Concerns. Bed Mobility: 3 Transfers (B,C,W/C): 3 Gait: 3 Indoor Mobility (Ambulation): Needed Some Help Stairs: Not Applicalbe Prior Devices Use: Walker PT Evaluation-Current Subjective Patient lying supine in bed upon PT arrival, agreeable to treatment. Patient rates pain at 0/10 currently. Objective Patient Orientation: Person, Place, Time, Situation Attachments: Oxygen ROM/Strength ROM Lower Extremities WFLs BLEs all planes Strength Lower Extremities 3+/5 BLEs all planes Sensory Vision: Functional Hearing: Functional Sensation Right Lower Extremit: Intact Sensation Left Lower Extremity: Intact Transfers Roll Left to Right (QC): 4 Sit to Lying (QC): 4 Lying to Sitting/Side of Bed(Q: 4 Sit to Stand (QC): 4 Chair/Qfa-hi-Ensdl Xfer(QC): 4 Gait Does the Patient Walk?: Yes Mode of Locomotion: Walk Anticipated Mode of Locomotion: Walk Walk 10 feet (QC): 4 Walk 50 ft with 2 Turns(QC): 4 Walk 150 ft (QC): 4 Distance: 200' Gait Assistive Device: FWW Balance Sitting Static: Fair Sitting Dynamic: Fair Standing Static: Fair Standing Dynamic: Fair Assessment/Needs Patient performs all bed mobility and transfers with SBA/CGA. Patient ambulates 200 feet with FWW, with SBA and verbal cues for safety, progression, conservation of energy. Patient in chair posts treatment with all needs met, nursing notified, call light in hand. Rehab Potential: Fair PT Nursing Home Goals Airplane Pilot Commercial Goals PT Nursing Home Goals Time Frame: Jan 19, 2023 Roll Left & Right (QC): 6 Sit to Lying (QC): 6 Lying-Sitting on Side/Bed(QC): 6 Sit to Stand (QC): 6 Chair/Kpi-tl-Jgnus Xfer(QC): 6 Toilet Transfer (QC): 6 Does the Patient Walk: Yes Walk 10 feet (QC): 6 Walk 50ft with 2 Turns (QC): 6 Walk 150 ft (QC): 6 PT Plan Problem List Problem List: Activity Tolerance, Functional Strength, Safety, Balance, Gait, Transfer, Bed Mobility, ROM Treatment/Plan Treatment Plan: Continue Plan of Care Treatment Plan: Bed Mobility, Education, Functional Activity Jose, Functional Strength, Group Therapy, Gait, Safety, Therapeutic Exercise, Transfers Treatment Duration: Jan 19, 2023 Frequency: 5 times per week Estimated Hrs Per Day: .25 hour per day Safety Risks/Education Patient Education: Gait Training, Transfer Techniques Teaching Recipient: Patient Teaching Methods: Demonstration ( ), Discussion Response to Teaching: Verbalize Understanding, Return Demonstration Time Time In: 1050 Time Out: 1106 DATE: Dec 28, 2022 Total Billed Treatment Time: 16 Total Billed Treatment Visit, ARIS LINDSEY PT Dec 28, 2022 11:20
[2022-12-28 11:36] VITALS: BP 128/73
[2022-12-28] MEDS: HYDROcodone/ACETAMINOPHEN 5 MG/325 MG TABLET PO PRN ×2 (12:40→21:18)
--- NOTE | 2022-12-28 13:11 | Occupational Therapy Eval ---
OT Evaluation-General/PLF Medical Diagnosis Admission Date Dec 27, 2022 at 17:21 Medical Diagnosis: COPD Exacerbation Onset Date: Dec 27, 2022 Therapy Diagnosis Therapy Diagnosis: weakness Height/Weight Height (Feet): 5 Height (Inches): 2.00 Weight (Pounds): 163 Weight (Ounces): 0.0 Precautions Precautions/Isolations: Fall Prevention, Standard Precautions Referral Physician: Dr. Galvez Referral Reason: Evaluation/Treatment Medical History Pertinent Medical History: Arthritis, CAD, COPD, GERD, HTN, Hypothroidism Additional Medical History PT ARRIVES TO ER VIA W/C FROM HOME. PT C/O WORSENING SOB, CONGESTION, COUGHING AND FATIGUE. RECENTLY SEEN IN ER FOR SAME S/S. Social History Home: Single Level Current Living Status: Alone Entry Into Home: Level Entry ADL-Prior Level of Function SCALE: Activities may be completed with or without assistive devices. 1-Ppwihukmlt-shvzlhw completes the activity by him/herself with no assistance from a helper. 5-Set-up or Clean-up Assistance-helper sets up or cleans up; patient completes activity. [place] assists only prior to or following the activity. 4-Supervision or Touching Assistance-helper provides verbal cues and/or touching/steadying and/or contact guard assistance as patient completes activity. Assistance may be provided throughout the activity or intermittently. 3-Partial/Moderate Assistance-helper does LESS THAN HALF the effort. [place] lifts, holds or supports trunk or limbs, but provides less than half the effort. 2-Substantial/Maximal Assistance-helper does MORE THAN HALF the effort. [place] lifts or holds trunk or limbs and provides more than half the effort. 0-Smhkmzwlq-ofhdax does ALL the effort. Patient does none of the effort to complete the activity. Or, the assistance of 2 or more helpers is required for the patient to complete the activity. If activity was not attempted, code reason: 7-Patient Refused. 9-Not Applicable-not attempted and the patient did not perform the activity before the current illness, exacerbation or injury. 10-Not Attempted due to Environmental Limitations-(lack of equipment, weather restraints, etc.). 88-Not Attempted due to Medical Conditions or Safety Concerns. ADL PLOF Comments 24 hour care givers Self Care: Needed Some Help Functional Cognition: Independent Drive Self: No OT Current Status Subjective Agreeable to OT Mental Status/Objective Patient Orientation: Person, Place, Situation Attachments: Lee Catheter, Oxygen Current Upper Extremity ROM BUE ROM WFLS Upper Extremity Coordination INTACT Upper Extremity Strength +3/5 ADL-Treatment ADL-Current Reports caregivers delmy socks for her, however is able to put socks on w/ feet propped on ledge of FWW Eating (QC): 6 Oral Hygiene (QC): 5 Shower/Bathe Self (QC): 7 Upper Body Dressing (QC): 4 Lower Body Dressing (QC): 3 On/Off Footwear (QC): 4 Toileting Hygiene (QC): 3 Education OT Patient Education: Correct positioning, Modified ADL techniques, Progress toward Goal/Update tx plan, Purpose of tx/functional activities, Reviewed precautions, Rehab process, Safety issues, Transfer techniques, Use of adapted equipment OT Sales Ledger Clerk Goals Custodial Goals 1=Demonstrate adherence to instructed precautions during ADL tasks. 2=Patient will verbalize/demonstrate understanding of assistive devices/modifications for ADL. 3=Patient will improve strength/tolerance for activity to enable patient to perform ADL's. OT Education/Plan Problem List/Assessment Assessment: Decreased UE Strength, Impaired Coordination, Impaired Funct Balance, Impaired Self-Care Skills Discharge Recommendations Plan/Recommendations: Continue POC Treatment Plan/Plan of Care Patient would benefit from OT for education, treatment and training to promote independence in ADL's, mobility, safety and/or upper extremity function for ADL's. Plan of Care: ADL Retraining, Functional Mobility, UE Funct Exercise/Act Treatment Duration: Jan 06, 2023 Frequency: 3 times per week (3-5 times per week) Estimated Hrs Per Day: .25 hour per day Rehab Potential: Fair Time Start Time: 10:40 Stop Time: 11:00 DATE: Dec 28, 2022 Total Time Billed (hr/min): 20 Billed Treatment Time EVM 20 min CARLEY AGUILAR OT Dec 28, 2022 13:11
[2022-12-28 16:10] VITALS: BP 142/65
[2022-12-28] MEDS ORDERED: MECL-291 PO (16:16)
[2022-12-28] MEDS ORDERED: ALBU2.5V4 NEB (16:16)
[2022-12-28] MEDS ORDERED: LORA-405 PO (16:16)
[2022-12-28] MEDS ORDERED: HYDR-3817 PO (16:16)
[2022-12-28] MEDS ORDERED: FLUT9.9S NS (16:19)
[2022-12-28] MEDS ORDERED: ALBU18HF2 INH (16:19)
[2022-12-28] MEDS ORDERED: RX-DIPHENO./ATROP. 2.5/0.25 MG (LOMOTIL) TAB PPK#4 PO PRN (17:15)
--- NOTE | 2022-12-28 17:21 | History & Physical-Hospitalist ---
History of Present Illness HPI/Chief Complaint April Gomez is an 82 year old female with PMH HTN, hypothyroidism, COPD, chronic respiratory failure on 3 L, restless leg syndrome, history of colon cancer s/p colectomy and ostomy s/p reversal, obesity, who presented with shortness of breath. She denies chest pain. She has had diarrhea. She has chronic diarrhea. She has had leg cramps. She denies cough. She denies fevers and chills. Source: patient Exam Limitations: no limitations Date Seen 12/28/22 Time Seen by a Provider: 10:10 Attending Physician Chaim Petty DO PCP Admitting Physician: Ike Frank MD Attending Physician: Ike Frank MD Referring Physician Date of Admission Dec 27, 2022 at 17:21 Home Medications & Allergies Home Medications Reviewed patient Home Medication Reconciliation performed by pharmacy medication reconciliations auto body technician and/or nursing. Patients Allergies have been reviewed. Allergies Allergies Coded Allergies sulfamethoxazole (Verified Allergy, Intermediate, Vomiting, 09/09/19) trimethoprim (Verified Allergy, Intermediate, Vomiting, 09/09/19) erythromycin base (Verified Allergy, Unknown, 09/09/19) quinine (Verified Allergy, Unknown, 09/09/19) cephalexin (Verified Adverse Reaction, Severe, CONFUSION, DIZZINESS, 03/04/20) Past Iavkkok-Ioyjtt-Dglhif Hx Patient Social History Tobacco Use?: No Smoking Status: Former Smoker Smokeless Tobacco Frequency: Never a User Use of E-Cig and/or Vaping dev: No Substance use?: No Alcohol Use?: No Pt feels they are or have been: No Immunizations Up To Date Date of Influenza Vaccine: Nov 26, 2021 First/Initial COVID19 Vaccinat: Received but unknown date. Second COVID19 Vaccination Javier: Received but unknown date. Tetanus Booster (TDap): Unknown Hepatitis A: No Hepatitis B: No PED Vaccines UTD: No Date of Pneumonia Vaccine: Aug 20, 2017 Seasonal Allergies Seasonal Allergies: Yes Current Status Advance Directives: Yes Advance Directive Location: Home Communicates: Verbally Primary Language: German Preferred Spoken Language: German Is interpretation needed?: No Sensory deficits: Hearing impairment Implanted or Applied Medical D: Stents Past Medical History Surgeries: Abdominal, Bowel Surgery, Hysterectomy, Tonsillectomy Pulmonary Embolism, Sleep Apnea, COPD Currently Using CPAP: No Currently Using BIPAP: No Coronary Artery Disease, Heart Attack Vertigo 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: Hysterectomy, Menopausal Sexually Transmitted Disease: No HIV/AIDS: No Bladder Infection Abdominal Hernia, Gastroesophageal Reflux, Obstructive Bowel, Polyps, Esophagitis, Hiatal Hernia Degenerate Disk Disease, Arthritis, Chronic Back Pain, Fractures Hypothyroidsim Cataract Loss of Vision: Bilateral Hearing Impairment: Hard of Hearing Colon Did You Recieve Any Treatments: Yes What Type of Treatment Did You: Surgical Intervention Anxiety Blood Disorders: Yes (ANEMIA) Adverse Reaction/Blood Tranf: No (HAS HAD BLOOD WITH NO REACTION) HTN Hypothyroidism COPD with oxygen dependence 3 L Colon cancer s/p hemicolectomy Restless legs syndrome Family Medical History Family history: Hypertension G8 BROTHER Myocardial infarction 19 MOTHER G8 BROTHER Heart Disease, Hypertension SOCIAL HISTORY: -ETOH--OCCASIONAL USE IN PAST -DRUGS--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 GUZMAN IN [place] -RIGHT HEMICOLECTOMY/SMALL BOWEL RESECTION/LYSIS OF ADHESIONS/MULTIPLE FOREIGN BODIES REMOVED ( CORKSCREW TACKS FROM PREVIOUS HERNIA MESH ) 09/12/[address] NELSON -CYSTOSCOPY WITH BOTOX INJECTIONS 07/09/[address] MCDONALD. -MULTIPLE HERNIA REPAIRS WITH MESH -MULTIPLE EGD'S/COLONOSCOPIES/DILATIONS OF ESOPHAGEAL STRICTURES -CARDIAC CATHS--STENTS X 2 -KYPHOPLASTIES -APPENDECTOMY -RIGHT HIP FRACTURE ORIF WITH PIN IN HIP AND HEATHER IN FEMUR 03/2016 -HYSTERECTOMY/BILATERAL SALPINGO-OOPHORECTOMY -TONSILLECTOMY ADDITIONAL PAST MEDICAL HISTORY: -HAS 24 HOUR IN-HOME CARETAKERS -[place]--USES A WALKER -RESTLESS LEG SYNDROME -RIGHT PALUMBO'S CYST -MULTIPLE COMPRESSION FRACTURES WITH KYPHOPLASTIES -CHRONIC DYSPHAGIA -CHRONIC ABDOMINAL PAIN COMPLAINTS -HAS Review of Systems Constitutional: no symptoms reported Respiratory: short of breath Cardiovascular: no symptoms reported Gastrointestinal: no symptoms reported Physical Exam Physical Exam Vital Signs Vital Signs - First Documented 12/27/22 12/27/22 12:02 18:06 Temp 36.6 Pulse 59 Resp 52 B/P (MAP) 142/86 (104) Pulse Ox 96 O2 Delivery Room Air O2 Flow Rate 3.00 FiO2 32 Capillary Refill : Height, Weight, BMI Height: 5'2.00" Weight: 163lbs. 0.0oz. 73.767016kt; 35.23 BMI Method:Stated General Appearance: No Apparent Distress, Obese HEENT: PERRL/EOMI, Pharynx Normal Respiratory: Lungs Clear, No Respiratory Distress Cardiovascular: Regular Rate, Rhythm, No Murmur Gastrointestinal: Normal Bowel Sounds, Soft, Hernia, Tenderness Extremity: Normal Inspection, No Pedal Edema Neurologic/Psychiatric: Alert, Normal Mood/Affect Skin: Normal Color, Warm/Dry Results Results/Procedures Labs Laboratory Tests 12/27/22 12:28 12/28/22 04:57 Patient resulted labs reviewed. Imaging: Reviewed Imaging Report Assessment/Plan Admission Diagnosis COPD exacerbation Admission Status: Observation Assessment and Plan COPD exacerbation Steroids MAT protocol Supplemental oxygen as needed, at baseline Hypokalemia Hypomagnesemia Monitor and replace as needed Debility PT/OT HTN Hypothyroidism Chronic pain Restless leg syndrome History of colon cancer History of colectomy Continue home meds DVT prophylaxis: Lovenox Diagnosis/Problems Diagnosis/Problems (1) COPD exacerbation Status: Acute (2) Hypokalemia Status: Acute (3) Chronic back pain Status: Chronic (4) Hypothyroidism Status: Chronic (5) Chronic respiratory failure with hypoxia Status: Chronic (6) Essential (primary) hypertension Status: Chronic (7) History of colon cancer Status: Chronic (8) History of colectomy Status: Chronic (9) History of creation of ostomy Status: Chronic IKE FRANK MD Dec 28, 2022 17:21
[2022-12-28] MEDS ORDERED: DIPHENOXYLATE/ATROPINE 2.5MG/0.025MG TABLET PO PRN (17:30)
[2022-12-28 20:57] VITALS: BP 164/76
[2022-12-28] MEDS: LORazepam 1 MG TABLET PO PRN (21:17)
[2022-12-28] MEDS: MONTELUKAST 10 MG TABLET PO SCH (21:18)
[2022-12-28] MEDS: DICYCLOMINE 10 MG CAPSULE PO SCH (21:18)
[2022-12-28] MEDS: rOPINIRole 1 MG TABLET PO SCH (21:18)
[2022-12-28 23:31] VITALS: BP 137/68
[2022-12-29] MEDS: RT-Ipratropium/Albuterol NEB 3 ML VIAL INH SCH ×2 (03:05→09:30)
[2022-12-29 03:08] VITALS: BP 135/80
[2022-12-29 06:08] LABS: BASOPHILS # (AUTO) 0.1 10^3/uL (0.0-0.1); BASOPHILS % (AUTO) 0 % (0-10); EOSINOPHILS % (AUTO) 0 % (0-10); HEMATOCRIT 37 % (35-52); HEMOGLOBIN 12.1 g/dL (11.5-16.0); LYMPHOCYTES % (AUTO) 7 % (12-44); MEAN CORPUSCULAR HEMOGLOBIN 30 pg (25-34); MEAN CORPUSCULAR HGB CONC 33 g/dL (32-36); MEAN CORPUSCULAR VOLUME 91 fL (80-99); MEAN PLATELET VOLUME 10.9 fL (9.0-12.2); MONOCYTES # (AUTO) 0.3 10^3/uL (0.0-1.0); MONOCYTES % (AUTO) 2 % (0-12); NEUTROPHILS % (AUTO) 84 % (42-75); PLATELET COUNT 314 10^3/uL (130-400); WHITE BLOOD COUNT 14.3 10^3/uL (4.3-11.0)
[2022-12-29] MEDS: inSUlin ASPART 1 UNIT/0.01 ML (PER UNIT) SC SCH ×2 (06:22→11:33)
[2022-12-29] MEDS: DICYCLOMINE 10 MG CAPSULE PO SCH ×2 (06:22→11:32)
[2022-12-29] MEDS: LEVOTHYROXINE 112 MCG TABLET PO SCH (06:22)
[2022-12-29] MEDS: methylPREDNISolone INJ 40 MG/ML VIAL IV SCH ×2 (06:22→11:33)
[2022-12-29 06:30] LABS: CALCIUM 8.5 MG/DL (8.5-10.1)
[2022-12-29] MEDS: POTASSIUM CHLORIDE 20 MEQ TABLET PO SCH (06:33)
[2022-12-29] MEDS: POTASSIUM CL 10MEQ/50ML IVPB 50 ML IV SCH (06:33)
[2022-12-29] MEDS: POTASSIUM BICARB 20 MEQ effervescent TABLET PO SCH (06:33)
[2022-12-29 06:34] LABS: CREATININE SERUM 1.11 MG/DL (0.60-1.30)
[2022-12-29 06:37] LABS: MAGNESIUM 2.1 MG/DL (1.6-2.4)
[2022-12-29] MEDS: MAGNESIUM 1 GM/100 ML IVPB 100 ML IV SCH (06:38)
[2022-12-29 07:28] VITALS: BP 134/71
[2022-12-29] MEDS: SENNOSIDES 8.6 MG TABLET PO SCH (08:23)
[2022-12-29] MEDS: NITROFURANTOIN Monohydrate/Macro 100 MG CAPSULE PO SCH (08:23)
[2022-12-29] MEDS: PANTOPRAZOLE 40 MG TABLET PO SCH (08:23)
[2022-12-29] MEDS: PREGABALIN 150 MG CAPSULE PO SCH (08:23)
[2022-12-29] MEDS: DOCUSATE SODIUM 100 MG CAPSULE PO SCH (08:23)
[2022-12-29] MEDS: FUROSEMIDE 20 MG TABLET PO SCH (08:24)
[2022-12-29] MEDS: DULoxetine 30 MG CAPSULE PO SCH (08:24)
--- NOTE | 2022-12-29 11:06 | Physical Therapy Daily Note ---
PT Daily Note-Current Subjective Pt is agreeable to PT. Denies pain. Pain Numeric Pain Scale: 0-No Pain Location: No Pain Reported Section J - Health Conditions 1. Rarely or not at all 2. Occasionally 3. Frequently 4. Almost constantly 8. Unable to answer Pain Effect on Sleep: 1 Pain Interference with Therapy: 1 Pain Interference w/Day-to-Day: 1 Transfers SCALE: Activities may be completed with or without assistive devices. 9-Narcvfnjaq-yyjyana completes the activity by him/herself with no assistance from a helper. 5-Set-up or Clean-up Assistance-helper sets up or cleans up; patient completes activity. [place] assists only prior to or following the activity. 4-Supervision or Touching Assistance-helper provides verbal cues and/or touching/steadying and/or contact guard assistance as patient completes ac tivity. Assistance may be provided throughout the activity or intermittently. 3-Partial/Moderate Assistance-helper does LESS THAN HALF the effort. [place] lifts, holds or supports trunk or limbs, but provides less than half the effort. 2-Substantial/Maximal Assistance-helper does MORE THAN HALF the effort. [place] lifts or holds trunk or limbs and provides more than half the effort. 3-Hhliinawv-hwsoxe does ALL the effort. Patient does none of the effort to complete the activity. Or, the assistance of 2 or more helpers is required for the patient to complete the activity. If activity was not attempted, code reason: 7-Patient Refused. 9-Not Applicable-not attempted and the patient did not perform the activity before the current illness, exacerbation or injury. 10-Not Attempted due to Environmental Limitations-(lack of equipment, weather restraints, etc.). 88-Not Attempted due to Medical Conditions or Safety Concerns. Sit to Lying (QC): 4 Lying to Sitting/Side of Bed(Q: 4 Sit to Stand (QC): 4 Weight Bearing Right Lower Extremity: Right Full Weight Bearing Left Lower Extremity: Left Full Weight Bearing Gait Training Does the Patient Walk?: Yes Distance: 300ft Walk 10 feet (QC): 4 Walk 50 ft with 2 Turns(QC): 4 Walk 150 ft (QC): 4 Gait Persons Needed: 1 Gait Assistive Device: FWW Treatments Pt completed bed mobility tasks with SBA. Pt completed functional transfers with SBA. Pt ambulated 300ft with the 4WW and CGA. After treatment session, pt was lying in bed with call light in reach and all needs met. Assessment Current Status: Good Progress Pt tolerated PT well, with good effort. PT Detention Goals Detention Goals PT Detention Goals Time Frame: Jan 19, 2023 Roll Left & Right (QC): 6 Sit to Lying (QC): 6 Lying-Sitting on Side/Bed(QC): 6 Sit to Stand (QC): 6 Chair/Sof-lc-Pxdlw Xfer(QC): 6 Toilet Transfer (QC): 6 Does the Patient Walk: Yes Walk 10 feet (QC): 6 Walk 50ft with 2 Turns (QC): 6 Walk 150 ft (QC): 6 PT Plan Problem List Problem List: Activity Tolerance, Functional Strength, Safety, Balance, Gait, Transfer, Bed Mobility, ROM Treatment/Plan Treatment Plan: Continue Plan of Care Treatment Plan: Bed Mobility, Education, Functional Activity Jose, Functional Strength, Group Therapy, Gait, Safety, Therapeutic Exercise, Transfers Treatment Duration: Jan 19, 2023 Frequency: 5 times per week Estimated Hrs Per Day: .25 hour per day Safety Risks/Education Patient Education: Gait Training, Transfer Techniques, Correct Positioning, Safety Issues Teaching Recipient: Patient Teaching Methods: Demonstration, Discussion Response to Teaching: Reinforcement Needed Discharge Recommendations Therapy Discharge Recommendati: Post Acute PT Time Time In: 946 Time Out: 1000 DATE: Dec 29, 2022 Total Billed Treatment Time: 14 Total Billed Treatment 14 min 1 visit GT x 1 SUKHI NETTLES PT Dec 29, 2022 11:06
[2022-12-29 11:53] VITALS: BP 144/69
[2022-12-29] MEDS ORDERED: IPRA3AMP31 IH (12:38)
[2022-12-29] MEDS ORDERED: PRED10TA22 PO (12:38)
--- NOTE | 2022-12-29 12:47 | Discharge Summary ---
Discharge Summary Instructions for Patient Via [facility], Assessment/Instructions see instructions Physician to follow Patient: Rmmilagro Discharge Diet for Home: ADA Diet, Low Sodium Diet Hospital Course Date of Admission: Dec 27, 2022 at 17:21 Admission Diagnosis : COPD exacerbation Family Physician/Provider: Chaim Petty DO Date of Discharge: 12/29/22 Discharge Diagnosis: COPD exacerbation Hospital Course: April Gomez is an 82 year old female who presented with shortness of breath and was admitted with COPD exacerbation. She was treated with steroids and breathing treatments and improved. She was given a steroid taper and duonebs to complete at home. She should follow up with Dr. Petty in a week or two. She was discharged home with home health in stable condition. Labs and Pending Lab Test: Laboratory Tests 12/28/22 20:58: Glucometer 215H 12/29/22 05:11: Glucometer 161H 12/29/22 05:47: White Blood Count 14.3H, Red Blood Count 4.09, Hemoglobin 12.1, Hematocrit 37, Mean Corpuscular Volume 91, Mean Corpuscular Hemoglobin 30, Mean Corpuscular Hemoglobin Concent 33, Red Cell Distribution Width 16.3H, Platelet Count 314, Mean Platelet Volume 10.9, Immature Granulocyte % (Auto) 6, Neutrophils (%) (Auto) 84H, Lymphocytes (%) (Auto) 7L, Monocytes (%) (Auto) 2, Eosinophils (%) (Auto) 0, Basophils (%) (Auto) 0, Neutrophils # (Auto) 12.0H, Lymphocytes # (Auto) 1.0, Monocytes # (Auto) 0.3, Eosinophils # (Auto) 0.0, Basophils # (Auto) 0.1, Immature Granulocyte # (Auto) 0.9H, Sodium Level 136, Potassium Level 4.0, Chloride Level 102, Carbon Dioxide Level 24, Anion Gap 10, Blood Urea Nitrogen 28H, Creatinine 1.11, Estimat Glomerular Filtration Rate 49, BUN/Creatinine Ratio 25, Glucose Level 171H, Mean Blood Glucose [Pending], Hemoglobin A1c [Pending], Calcium Level 8.5, Magnesium Level 2.1 12/29/22 11:11: Glucometer 220H Home Meds Active Iprat-Albut 0.5-3(2.5) mg/3 ml (Ipratropium/Albuterol Sulfate) 0.5 Mg-3 Mg (2.5 Mg Base)/3 Ml Ampul.neb 3 Ml IH Q4H PRN 7 Days Prednisone 10 Mg Tab.ds.pk 10 Mg PO DAILY Take 6 tabs(60mg)daily,decrease by 1 tab(10mg)every other day. Reported Flonase Allergy Relief (Fluticasone Propionate) 50 Mcg/Actuation [place].susp 1 Bailey NS BID PRN Ventolin Hfa (Albuterol Sulfate) 90 Mcg Hfa.aer.ad 2 Puff INH Q6H PRN Hydrocodone-Acetamin 7.5-325 (Hydrocodone/Acetaminophen) 7.5 Mg-325 Mg Tablet 1 Ea PO TID PRN Ativan (Lorazepam) 1 Mg Tablet 1 Mg PO BID PRN Albuterol Sulfate 2.5 Mg/3 Ml (0.083 %) Vial.neb 2.5 Mg NEB Q4H PRN Meclizine HCl 25 Mg Tablet 25 Mg PO Q8H PRN Restasis (Cyclosporine) 0.05 % Droperette 1 Drop OU BID Vitamin D3 (Cholecalciferol (Vitamin D3)) 25 Mcg (1000 Unit) Capsule 25 Mcg PO DAILY Solifenacin Succinate 5 Mg Tablet 5 Mg PO DAILY Clopidogrel (Clopidogrel Bisulfate) 75 Mg Tablet 75 Mg PO DAILY Nitrofurantoin (Nitrofurantoin Macrocrystal) 100 Mg Capsule 100 Mg PO DAILY Cranberry (Cranberry Fruit) 450 Mg Tablet 450 Mg PO DAILY Biotin 10,000 Mcg Capsule 10,000 Mcg PO DAILY Levothyroxine Sodium 112 Mcg Tablet 112 Mcg PO DAILY Diphenoxylate-Atrop 2.5-0.025 (Diphenoxylate HCl/Atropine) 1 Each Tablet 1 Each PO QID PRN Temazepam 15 Mg Capsule 15 Mg PO HS Pantoprazole Sodium 40 Mg Tablet.dr 40 Mg PO DAILY Ropinirole HCl 4 Mg Tablet 8 Mg PO HS TAKES 2 (4MG) TABS Pregabalin 150 Mg Capsule 150 Mg PO BID Montelukast Sodium 10 Mg Tablet 10 Mg PO HS Duloxetine HCl 60 Mg Capsule.dr 60 Mg PO DAILY Furosemide 20 Mg Tablet 20 Mg PO DAILY Ezetimibe 10 Mg Tablet 10 Mg PO DAILY Metoprolol Succinate 50 Mg Tab.er.24h 50 Mg PO DAILY Patient Allergies: Coded Allergies: sulfamethoxazole (Verified Allergy, Intermediate, Vomiting, 09/09/19) trimethoprim (Verified Allergy, Intermediate, Vomiting, 09/09/19) erythromycin base (Verified Allergy, Unknown, 09/09/19) quinine (Verified Allergy, Unknown, 09/09/19) cephalexin (Verified Adverse Reaction, Severe, CONFUSION, DIZZINESS, 03/04/20) Height (Feet): 5 Height (Inches): 2.00 Weight (Pounds): 163 Weight (Ounces): 0.0 Home Health Need/Face to Face Date of Face to Face: Dec 29, 2022 Clinical Findings: Generalized weakness and fatigue, Instability, Muscle weakness, Unsteady gait I have seen Pt dpeh-ne-nmun: Yes Discharged To: Home Diagnosis/Conditions: COPD exacerbation HTN Hypothryoidism Restless leg syndrome History of colon cancer History of partial colectomy Chronic respiratory failure with hypoxia Problems/Diagnosis/Condition: (1) COPD exacerbation (2) Hypothyroidism (3) Chronic respiratory failure with hypoxia (4) History of colon cancer (5) Essential (primary) hypertension (6) History of hemicolectomy (7) Weakness Patient is Homebound due to: Gracia fall risk due to instabilty, Muscle weakness Homebound Status Due to the above stated illness, injury or surgical procedure (medical condition or diagnosis) and associated clinical findings, the patient is homebound because of his/her inability to leave home except with aid of a supportive device and/or person AND leaving the home requires a considerable and taxing effort or is medically contraindicated. Pt req the following assistanc: Aid of another person, Walker Home Health Nursing Orders Home Health Services Order: Nursing Services, [employer]-Evaluate & Treat, Physical Therapy-Evaluate & Treat Home Health Infusion Therapy Line Start Date: Dec 27, 2022 Therapy Orders Therapy Orders: OT (must have SN or PT order), Physical Therapy Therapy Specific Orders: Eval assistive deivces, Teach enviro modifications/ safety, Gait training, Increase strength/endurance [facility] certify that this patient is under my care and that I, a nurse practitioner or a physician; a social services assistant working with me, had a face to face encounter that - meets the physician face to face encounter requirements with this patient as dated. Discharge Physical Exam General: Alert, No Acute Distress Lungs: Clear to Auscultation, Normal Air Movement Heart: Regular Rate, No Murmurs Abdomen: Soft, No Tenderness, Other (hernia) Skin: No Rashes, No Significant Lesion Neuro: Normal Speech, Normal Tone Psych/Mental Status: Mental Status NL, Mood NL IKE FRANK MD Dec 29, 2022 12:47
== END 2022-12-29 12:38 | disposition home health service (06) ==
LOC: EDUNIT# 11:31 → ER 11:32 → 4TH 17:21 → UNDOADMOB 17:21 → 4TH 17:29 → UNDODISOB 12-29 12:38
PROVIDERS: ADMIT Internal Medicine; ATTEND Internal Medicine
DX: J44.1 Chronic obstructive pulmonary disease with (acute) exacerbation (principal); E03.9 Hypothyroidism, unspecified; I10 Essential (primary) hypertension; G25.81 Restless legs syndrome; J96.11 Chronic respiratory failure with hypoxia; Z85.038 Personal history of other malignant neoplasm of large intestine; Z90.49 Acquired absence of other specified parts of digestive tract; Z87.891 Personal history of nicotine dependence; Z79.890 Hormone replacement therapy; Z79.899 Other long term (current) drug therapy; Z79.02 Long term (current) use of antithrombotics/antiplatelets
CPT/HCPCS: 36415; 71045; 71275; 80048; 80053; 80061; 82947; 83036; 83735; 83874; 83880; 84484; 85007; 85025; 85027; 85379; 85610; 85730; 86141; 93005; 93041; 94640; 94664; 94760; 96366; 96374; 96375; 96376; G0378

== ENCOUNTER 2023-01-03 13:31 | Emergency (ER) | payer MEDICARE, MEDICAID ==
[~2023-01-03] VITALS: Ht 157.4 cm; Wt 80.7 kg
[~2023-01-03 13:31] MED LIST changes: +ALBU2.5V4 NEB; +HYDR-3817 PO; +IPRA3AMP31 IH; +MECL-291 PO
--- NOTE | 2023-01-03 14:24 | ED General ---
General Chief Complaint: Allergic Reaction Stated Complaint: ALLERGIC REACTION Nursing Triage Note: PT TO RM 1 BY EMS WITH CC OF POSSIBLE ALLERGIC REACTION HOME SPECIALIST. PT STATES HAS BEEN TAKING PREDISONE X 5 DAYS AND BEGAN TO HAVE TOUNGE PAIN AND SWELLING THIS AFTERNOON. EMS ADMIN 50MG [facility] IM HOME SPECIALIST. PT ON 3L NC AT ALL TIMES. PT A&OX4 Source of Information: Patient Exam Limitations: No Limitations History of Present Illness Date Seen by Provider: Jan 03, 2023 Time Seen by Provider: 14:15 Allergies and Home Medications Allergies Coded Allergies: sulfamethoxazole (Verified Allergy, Intermediate, Vomiting, 09/09/19) trimethoprim (Verified Allergy, Intermediate, Vomiting, 09/09/19) erythromycin base (Verified Allergy, Unknown, 09/09/19) quinine (Verified Allergy, Unknown, 09/09/19) cephalexin (Verified Adverse Reaction, Severe, CONFUSION, DIZZINESS, 03/04/20) Patient Home Medication List Albuterol Sulfate (Albuterol Sulfate) 2.5 Mg/3 Ml (0.083 %) Vial.neb, 2.5 MG NEB Q4H PRN for SHORTNESS OF BREATH, (Reported) Entered as Reported by: PATRICK SHAW on 12/28/22 1616 Albuterol Sulfate (Ventolin Hfa) 90 Mcg Hfa.aer.ad, 2 PUFF INH Q6H PRN for SHORTNESS OF BREATH, (Reported) Entered as Reported by: PATRICK SHAW on 12/28/22 1619 Biotin (Biotin) 10,000 Mcg Capsule, 10,000 MCG PO DAILY, (Reported) Entered as Reported by: PATRICK SHAW on 01/14/22 162 Cholecalciferol (Vitamin D3) (Vitamin D3) 25 Mcg (1000 Unit) Capsule, 25 MCG PO DAILY, (Reported) Entered as Reported by: PATRICK SHAW on 01/14/22 162 Clopidogrel Bisulfate (Clopidogrel) 75 Mg Tablet, 75 MG PO DAILY, (Reported) Entered as Reported by: PATRICK SHAW on 01/14/22 162 Cranberry Fruit (Cranberry) 450 Mg Tablet, 450 MG PO DAILY, (Reported) Entered as Reported by: PATRICK SHAW on 01/14/22 162 Cyclosporine (Restasis) 0.05 % Droperette, 1 DROP OU BID, (Reported) Entered as Reported by: PATRICK SHAW on 01/14/22 1621 Diphenoxylate HCl/Atropine (Diphenoxylate-Atrop 2.5-0.025) 1 Each Tablet, 1 EACH PO QID PRN for LOOSE STOOLS, (Reported) Entered as Reported by: TOMAS HAYS on 09/07/20 1451 Duloxetine HCl (Duloxetine HCl) 60 Mg Capsule.dr, 60 MG PO DAILY, (Reported) Entered as Reported by: TOMAS HAYS on 09/07/20 1448 Ezetimibe (Ezetimibe) 10 Mg Tablet, 10 MG PO DAILY, (Reported) Entered as Reported by: TARAN CARPENTER on 07/02/19 1122 Fluticasone Propionate (Flonase Allergy Relief) 50 Mcg/Actuation [place].susp, 1 SPRAY NS BID PRN for CONGESTION, (Reported) Entered as Reported by: PATRICK SHAW on 12/28/22 1619 Furosemide (Furosemide) 20 Mg Tablet, 20 MG PO DAILY, (Reported) Entered as Reported by: PATRICK SHAW on 06/18/20 1506 Hydrocodone/Acetaminophen (Hydrocodone-Acetamin 7.5-325) 7.5 Mg-325 Mg Tablet, 1 EA PO TID PRN for PAIN-MODERATE (5-7), (Reported) Entered as Reported by: PATRICK SHAW on 12/28/22 1616 Ipratropium/Albuterol Sulfate (Iprat-Albut 0.5-3(2.5) mg/3 ml) 0.5 Mg-3 Mg (2.5 Mg Base)/3 Ml Ampul.neb, 3 ML IH Q4H PRN for SHORTNESS OF BREATH Prescribed by: IKE FRANK on 12/29/22 1238 Levothyroxine Sodium (Levothyroxine Sodium) 112 Mcg Tablet, 112 MCG PO DAILY, (Reported) Entered as Reported by: PATRICK SHAW on 07/09/21 1510 Lorazepam (Ativan) 1 Mg Tablet, 1 MG PO BID PRN for ANXIETY, (Reported) Entered as Reported by: PATRICK SHAW on 12/28/22 1616 Meclizine HCl (Meclizine HCl) 25 Mg Tablet, 25 MG PO Q8H PRN for DIZZINESS, (Reported) Entered as Reported by: PATRICK SHAW on 12/28/22 1616 Metoprolol Succinate (Metoprolol Succinate) 50 Mg Tab.er.24h, 50 MG PO DAILY, (Reported) Entered as Reported by: PATRICK SHAW on 05/13/19 0828 Montelukast Sodium (Montelukast Sodium) 10 Mg Tablet, 10 MG PO HS, (Reported) Entered as Reported by: TOMAS HAYS on 09/07/20 1448 Nitrofurantoin Macrocrystal (Nitrofurantoin) 100 Mg Capsule, 100 MG PO DAILY, (Reported) Entered as Reported by: PATRICK SHAW on 01/14/22 1621 Pantoprazole Sodium (Pantoprazole Sodium) 40 Mg Tablet.dr, 40 MG PO DAILY, (Reported) Entered as Reported by: TOMAS HAYS on 09/07/20 1448 Prednisone (Prednisone) 10 Mg Tab.ds.pk, 10 MG PO DAILY Prescribed by: IKE FRANK on 12/29/22 1238 Pregabalin (Pregabalin) 150 Mg Capsule, 150 MG PO BID, (Reported) Entered as Reported by: TOMAS HAYS on 09/07/20 1448 Ropinirole HCl (Ropinirole HCl) 4 Mg Tablet, 8 MG PO HS, (Reported) Entered as Reported by: TOMAS HAYS on 09/07/20 1448 Solifenacin Succinate (Solifenacin Succinate) 5 Mg Tablet, 5 MG PO DAILY, (Reported) Entered as Reported by: PATRICK SHAW on 01/14/22 1621 Temazepam (Temazepam) 15 Mg Capsule, 15 MG PO HS, (Reported) Entered as Reported by: TOMAS HAYS on 09/07/20 1448 Discontinued Medications Ascorbate Calcium (Vitamin C) 500 Mg Tablet, 500 MG PO DAILY, (Reported) Discontinued Reason: No Longer Taking Entered as Reported by: PATRICK SHAW on 01/14/22 1621 Cefdinir (Cefdinir) 300 Mg Capsule, 300 MG PO BID Discontinued Reason: No Longer Taking Prescribed by: KARISSA MOSQUEDA on 07/04/22 1453 Clonazepam (Clonazepam) 1 Mg Tablet, 1 MG PO BID, (Reported) Discontinued Reason: No Longer Taking Entered as Reported by: PATRICK SHAW on 07/09/21 1510 Dicyclomine HCl (Dicyclomine HCl) 10 Mg Capsule, 10 MG PO QID, (Reported) Discontinued Reason: No Longer Taking Entered as Reported by: PATRICK SHAW on 01/14/22 1621 Mirabegron (Myrbetriq) 50 Mg Tab.er.24h, 50 MG PO DAILY, (Reported) Discontinued Reason: No Longer Taking Entered as Reported by: TOMAS HAYS on 09/07/20 1448 Ondansetron (Ondansetron Odt) 4 Mg Tab.rapdis, 4 MG SL Q4H PRN for NAUSEA/VOMITING Discontinued Reason: No Longer Taking Prescribed by: KARISSA MOSQUEDA on 07/04/22 1434 Ondansetron HCl (Ondansetron HCl) 4 Mg Tablet, 4 MG PO Q6H PRN for NAUSEA/VOMITING-1ST LINE, (Reported) Discontinued Reason: Duplicate Order Entered as Reported by: PATRICK SHAW on 01/14/22 1621 Oxycodone HCl (Oxycodone HCl) 10 Mg Tablet, 10 MG PO Q4H PRN for PAIN-SEVERE (8- 10), (Reported) Discontinued Reason: No Longer Taking Entered as Reported by: PATRICK SHAW on 07/09/21 1510 Prednisone (Prednisone) 20 Mg Tab, 40 MG PO DAILY Discontinued Reason: No Longer Taking Prescribed by: ISABELLA FARIAS on 12/23/22 1210 [Potassium 20MEQ/15ML] 20MEQ LIQUID, 7.5 ML PO DAILY, (Reported) Discontinued Reason: No Longer Taking Entered as Reported by: PATRICK SHAW on 01/14/22 1621 Past Vnlgwzf-Eyyfkw-Eehcwx Hx Patient Social History Tobacco Use?: No Smoking Status: Former Smoker Substance use?: No Alcohol Use?: No Immunizations Up To Date Tetanus Booster (TDap): Unknown PED Vaccines UTD: No First/Initial COVID19 Vaccinat: Received but unknown date. Second COVID19 Vaccination Javier: Received but unknown date. Third COVID19 Vaccination Date: Received but unknown date. Seasonal Allergies Seasonal Allergies: Yes Past Medical History Surgery/Hospitalization HX: wears home O2 at 3 L prn and at hs. 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 Sexually Transmitted Disease: No HIV/AIDS: No Genitourinary: Yes Bladder Infection Gastrointestinal: Yes Abdominal Hernia, Gastroesophageal Reflux, Obstructive Bowel, Polyps, Esophagitis, Hiatal Hernia Musculoskeletal: Yes Degenerate Disk Disease, Arthritis, Chronic Back Pain, Fractures Endocrine: No Hypothyroidsim HEENT: Yes Cataract Loss of Vision: Bilateral Hearing Impairment: Hard of Hearing Cancer: Yes Colon Did You Recieve Any Treatments: Yes What Type of Treatment Did You: Surgical Intervention Psychosocial: Yes Anxiety Integumentary: No Blood Disorders: Yes (ANEMIA) Adverse Reaction/Blood Tranf: No (HAS HAD BLOOD WITH NO REACTION) Family Medical History Family history: Hypertension G8 BROTHER Myocardial infarction 19 MOTHER G8 BROTHER Heart Disease, Hypertension SOCIAL HISTORY: -ETOH--OCCASIONAL USE IN PAST -DRUGS--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 GUZMAN IN [place] -RIGHT HEMICOLECTOMY/SMALL BOWEL RESECTION/LYSIS OF ADHESIONS/MULTIPLE FOREIGN BODIES REMOVED ( CORKSCREW TACKS FROM PREVIOUS HERNIA MESH ) 09/12/[address] NELSON -CYSTOSCOPY WITH BOTOX INJECTIONS 07/09/[address] MCDONALD. -MULTIPLE HERNIA REPAIRS WITH MESH -MULTIPLE EGD'S/COLONOSCOPIES/DILATIONS OF ESOPHAGEAL STRICTURES -CARDIAC CATHS--STENTS X 2 -KYPHOPLASTIES -APPENDECTOMY -RIGHT HIP FRACTURE ORIF WITH PIN IN HIP AND HEATHER IN [place]EMUR 03/2016 -HYSTERECTOMY/BILATERAL SALPINGO-OOPHORECTOMY -TONSILLECTOMY ADDITIONAL PAST MEDICAL HISTORY: -HAS 24 HOUR IN-HOME CARETAKERS -[place]--USES A WALKER -RESTLESS LEG SYNDROME -RIGHT PALUMBO'S CYST -MULTIPLE COMPRESSION FRACTURES WITH KYPHOPLASTIES -CHRONIC DYSPHAGIA -CHRONIC ABDOMINAL PAIN COMPLAINTS -HAS Physical Exam Vital Signs Vital Signs - First Documented 01/03/23 13:33 Temp 36.9 Pulse 74 Resp 22 B/P (MAP) 150/98 (115) Pulse Ox 96 O2 Delivery Nasal Cannula O2 Flow Rate 3.00 Capillary Refill : Less Than 3 Seconds Height, Weight, BMI Height: 5'2.00" Weight: 163lbs. 0.0oz. [id number]; 32.00 BMI Method:Stated Progress/Results/Core Measures Suspected Sepsis SIRS Temperature: Pulse: 74 Respiratory Rate: 22 Blood Pressure 150 /98 Mean: 115 Results/Orders Lab Results Laboratory Tests Test 01/03/23 14:55 Range/Units Influenza Type A (RT-PCR) Not Detected Not Detecte Influenza Type B (RT-PCR) Not Detected Not Detecte SARS-CoV-2 RNA (RT-PCR) Not Detected Not Detecte Group A Streptococcus Screen Not Detected NotDetected My Orders Orders - RADHA PAREDES MD Rapid Strep A Screen (01/03/23 14:39) Covid 19 Inhouse Test (01/03/23 14:39) Influenza A And B By Pcr (01/03/23 14:39) Vital Signs/I&O 01/03/23 01/03/23 13:33 13:33 Temp 36.9 Pulse 74 Resp 22 B/P (MAP) 150/98 (115) Pulse Ox 96 O2 Delivery Nasal Cannula Nasal Cannula O2 Flow Rate 3.00 3.00 Capillary Refill : Less Than 3 Seconds Blood Pressure Mean: 115 Progress Note : Time: 14:23 Progress Note Report received from nursing. Patient reported to be stable and in no distress by nursing staff. Patient was examined at 1415 after addressing other urgent needs. Departure Impression Primary Impression: Throat pain Additional Impression: Mouth pain Disposition: 01 HOME, SELF-CARE Condition: Stable Departure-Patient Inst. Decision time for Depature: 15:45 Referrals: JULISA COURTNEY DO (PCP/Family) Primary Care Physician Patient Instructions: Sore Throat, Adult ED, Thrush Add. Discharge Instructions: Use the nystatin swish and swallow as prescribed. You may stop the prednisone if your respiratory status is back to baseline. Leave your dentures out as much as possible over the next few days. Sanitize your dentures daily. Follow-up with your primary care provider soon as possible. Return to the ER if you have worsening symptoms despite following these instructions. All discharge instructions reviewed with patient and/or family. Voiced understanding. Scripts Nystatin (Nystatin) 100,000 Unit/Ml Oral.susp 5 ML PO Q6H, #200 ML Prov: RADHA PAREDES MD 01/03/23 RADHA PAREDES MD Jan 03, 2023 14:23
[2023-01-03] MEDS ORDERED: NYST1000 PO (15:48)
[2023-01-03 15:54] VITALS: BP 142/74
== END 2023-01-03 15:56 | disposition home or self-care (01) ==
LOC: EDUNIT# 13:31 → ER 13:33
DX: K13.79 Other lesions of oral mucosa (principal); R07.0 Pain in throat; Z87.891 Personal history of nicotine dependence
CPT/HCPCS: 87430; 87636